=== PATIENT | female | born 1950 | race Caucasian/White ===

== ENCOUNTER 2019-12-25 08:55 | Outpatient (CLI) | payer MEDICARE, BC, SELFPAY ==
[2019-12-25 09:53] LABS: Blood Urea Nitrogen 16 mg/dL (7-17); Calcium 9.4 mg/dL (8.4-10.2); Carbon Dioxide 32 mmol/L (22-30); Chloride 102 mmol/L (98-107); Estimated Glomerular Filt Rate > 60; Glucose 108 mg/dL (65-105); Potassium 3.6 mmol/L (3.4-5.0); Sodium 140 mmol/L (137-145)
== END 2019-12-25 08:56 | disposition home or self-care (01) ==
PROVIDERS: PCP Internal Medicine; Visit Provider Nurse Practitioner
DX: I10 Essential (primary) hypertension (principal)
CPT/HCPCS: 36415; 80048; 84443

== ENCOUNTER 2020-01-07 13:37 | Outpatient (CLI) | payer MEDICARE, BC, SELFPAY ==
[2020-01-07 13:54] LABS: Basophils Absolute Auto 0.1 K/mm3 (0.0-0.1); Basophils Percent Auto 0.7 % (0.2-1.2); Eosinophils Absolute Auto 0.3 K/mm3 (0-0.3); Eosinophils Percent Auto 3.7 % (0-4.4); Hemoglobin 14.1 g/dL (12.0-15.0); Immature Granulocyte Absolute 0.02 K/mm3 (0.00-0.031); Immature Granulocyte Percent A 0.3 % (0-0.5); Lymphocytes Absolute Auto 1.63 K/mm3 (0.9-3.2); Lymphocytes Percent Auto 24.4 % (18.3-44.2); Mean Corpuscular HGB Conc 33.6 g/dl (32-36); Mean Corpuscular Hemoglobin 31.8 pg (26-34); Mean Corpuscular Volume 94.8 fl (80-100); Mean Platelet Volume 9.6 fl (7.4-10.4); Monocytes Absolute Auto 0.6 K/mm3 (0.1-0.6); Monocytes Percent Auto 8.5 % (2.6-8.5); Neutrophils Absolute Auto 4.2 K/mm3 (1.3-6.7); Neutrophils Percent Auto 62.4 % (45.5-73.1); Platelet Count Result 218 k/mm3 (150-375); Red Blood Count 4.43 M/mm3 (4.2-5.4); Red Cell Distribution Width 13.8 % (11.5-14.5); White Blood Count 6.7 K/mm3 (4.5-10.0)
[2020-01-07 14:37] LABS: Free T4 Free Thyroxine 0.96 ng/mL (0.78-2.19)
== END 2020-01-07 13:38 | disposition home or self-care (01) ==
PROVIDERS: PCP Internal Medicine; Visit Provider Nurse Practitioner
DX: D64.9 Anemia, unspecified (principal); E03.9 Hypothyroidism, unspecified
CPT/HCPCS: 36415; 82728; 84439; 84443; 85025

== ENCOUNTER 2020-04-20 12:14 | Outpatient (CLI) | payer MEDICARE, BC, SELFPAY ==
[2020-04-20 12:41] LABS: Basophils Absolute Auto 0.1 K/mm3 (0.0-0.1); Basophils Percent Auto 0.9 % (0.2-1.2); Eosinophils Absolute Auto 0.2 K/mm3 (0-0.3); Eosinophils Percent Auto 3.8 % (0-4.4); Hematocrit 42.6 % (37.0-47.0); Hemoglobin 14.4 g/dL (12.0-15.0); Immature Granulocyte Absolute 0.02 K/mm3 (0.00-0.031); Immature Granulocyte Percent A 0.3 % (0-0.5); Lymphocytes Absolute Auto 1.56 K/mm3 (0.9-3.2); Lymphocytes Percent Auto 27.1 % (18.3-44.2); Mean Corpuscular HGB Conc 33.8 g/dl (32-36); Mean Corpuscular Hemoglobin 31.4 pg (26-34); Mean Platelet Volume 9.4 fl (7.4-10.4); Monocytes Absolute Auto 0.5 K/mm3 (0.1-0.6); Monocytes Percent Auto 8.2 % (2.6-8.5); Neutrophils Absolute Auto 3.4 K/mm3 (1.3-6.7); Neutrophils Percent Auto 59.7 % (45.5-73.1); Platelet Count Result 196 k/mm3 (150-375); Red Blood Count 4.58 M/mm3 (4.2-5.4); Red Cell Distribution Width 13.2 % (11.5-14.5); White Blood Count 5.8 K/mm3 (4.5-10.0)
== END 2020-04-20 12:15 | disposition home or self-care (01) ==
PROVIDERS: PCP Internal Medicine; Visit Provider Nurse Practitioner
DX: D64.9 Anemia, unspecified (principal); E03.9 Hypothyroidism, unspecified
CPT/HCPCS: 36415; 82728; 84443; 85025

== ENCOUNTER 2020-05-13 10:54 | Outpatient (CLI) | payer MEDICARE, BC, SELFPAY ==
[2020-05-13 12:27] LABS: Free T4 Free Thyroxine 0.99 ng/mL (0.78-2.19)
== END 2020-05-13 10:55 | disposition home or self-care (01) ==
LOC: ANHLAB 10:56
PROVIDERS: Clinical Nurse Specialist; PCP Internal Medicine; Visit Provider Nurse Practitioner
DX: E03.9 Hypothyroidism, unspecified (principal)
CPT/HCPCS: 36415; 84439; 84443

== ENCOUNTER 2020-09-13 09:04 | Outpatient (CLI) | payer MEDICARE, BC, SELFPAY ==
--- NOTE | ~2020-09-13 | MM_ITS ---
EXAMINATION: MM screening [facility] BI w olaf HISTORY: Screening mammogram TECHNIQUE: Craniocaudal and mediolateral oblique 3-D tomosynthesis images were obtained and synthetic 2-D images were generated. CAD analysis was submitted and interpreted. COMPARISON: 07/29/2019, 07/22/2018, 06/22/2017 BREAST PARENCHYMAL COMPOSITION: There are scattered areas of fibroglandular density. FINDINGS: There is no evidence of suspicious mass, calcification, or architectural distortion to sugg est malignancy in either breast. There has been no suspicious interval change. IMPRESSION: 1. No mammographic evidence of malignancy. 2. Recommend routine screening mammography in one year. BI-RADS Category 1: Negative Reviewed, dictated and finalized at location A. ING CLERK
== END 2020-09-13 09:05 | disposition home or self-care (01) ==
PROVIDERS: PCP Internal Medicine; Visit Provider Internal Medicine
DX: Z12.31 Encounter for screening mammogram for malignant neoplasm of breast (principal)
CPT/HCPCS: 77063; 77067

== ENCOUNTER 2021-02-05 12:31 | Outpatient (CLI) | payer MEDICARE, BC, SELFPAY ==
[2021-02-05 12:45] LABS: Basophils Absolute Auto 0.1 K/mm3 (0.0-0.1); Basophils Percent Auto 1.1 % (0.2-1.2); Eosinophils Absolute Auto 0.3 K/mm3 (0-0.3); Eosinophils Percent Auto 4.6 % (0-4.4); Hematocrit 43.4 % (37.0-47.0); Hemoglobin 14.2 g/dL (12.0-15.0); Immature Granulocyte Absolute 0.02 K/mm3 (0.00-0.031); Immature Granulocyte Percent A 0.3 % (0-0.5); Lymphocytes Absolute Auto 1.57 K/mm3 (0.9-3.2); Lymphocytes Percent Auto 23.8 % (18.3-44.2); Mean Corpuscular HGB Conc 32.7 g/dl (32-36); Mean Corpuscular Hemoglobin 31.3 pg (26-34); Mean Corpuscular Volume 95.6 fl (80-100); Mean Platelet Volume 9.3 fl (7.4-10.4); Monocytes Absolute Auto 0.7 K/mm3 (0.1-0.6); Monocytes Percent Auto 10.2 % (2.6-8.5); Platelet Count Result 203 k/mm3 (150-375); Red Blood Count 4.54 M/mm3 (4.2-5.4); Red Cell Distribution Width 13.5 % (11.5-14.5); White Blood Count 6.6 K/mm3 (4.5-10.0)
[2021-02-05 12:56] LABS: Alanine Aminotransferase 22 U/L (4-35); Albumin Level 4.7 g/dL (3.5-5.1); Alkaline Phosphatase 135 U/L (38-126); Anion Gap 9 mmol/L (8-16); Aspartate Amino Transferase 28 U/L (14-36); Bilirubin,Total 0.8 mg/dL (0.2-1.3); Blood Urea Nitrogen 11 mg/dL (7-17); Calcium 9.9 mg/dL (8.4-10.2); Carbon Dioxide 25 mmol/L (22-30); Chloride 107 mmol/L (98-107); Estimated Glomerular Filt Rate > 60; Glucose 96 mg/dL (65-105); Potassium 3.8 mmol/L (3.4-5.0); Sodium 141 mmol/L (137-145)
[2021-02-05 14:15] LABS: Vitamin D 25 Hydroxy 53.5 ng/mL
== END 2021-02-05 12:32 | disposition home or self-care (01) ==
PROVIDERS: PCP Internal Medicine; Visit Provider Clinical Nurse Specialist
DX: E03.9 Hypothyroidism, unspecified (principal); I10 Essential (primary) hypertension; E55.9 Vitamin D deficiency, unspecified
CPT/HCPCS: 36415; 80053; 82306; 84443; 85025

== ENCOUNTER 2021-05-11 13:44 | Outpatient (CLI) | payer MEDICARE, BC, SELFPAY ==
[2021-05-11 14:50] LABS: Free T4 Free Thyroxine 1.04 ng/mL (0.78-2.19)
[2021-05-13 05:30] LABS: Triiodothyronine T3 Free 2.7 pg/mL (2.3-4.2)
== END 2021-05-11 13:45 | disposition home or self-care (01) ==
PROVIDERS: PCP Internal Medicine; Visit Provider Clinical Nurse Specialist
DX: E03.9 Hypothyroidism, unspecified (principal)
CPT/HCPCS: 36415; 84439; 84443; 84481

== ENCOUNTER 2021-10-12 09:16 | Outpatient (CLI) | payer MEDICARE, BC, SELFPAY ==
--- NOTE | ~2021-10-12 | MM_ITS ---
EXAMINATION: MM screening [facility] BI w olaf HISTORY: Screening mammogram TECHNIQUE: Craniocaudal and mediolateral oblique 3-D tomosynthesis images were obtained and synthetic 2-D images were generated. CAD analysis was submitted and interpreted. COMPARISON: 09/13/2020, 07/29/2019, 07/22/2018 BREAST PARENCHYMAL COMPOSITION: There are scattered areas of fibroglandular density. FINDINGS: There is no evidence of suspicious mass, calcification, or architectural distortion to sugg est malignancy in either breast. There has been no suspicious interval change. IMPRESSION: 1. No mammographic evidence of malignancy. 2. Recommend routine screening mammography in one year. BI-RADS Category 1: Negative Reviewed, dictated and finalized at location A. [employer]ER
== END 2021-10-12 09:17 | disposition home or self-care (01) ==
PROVIDERS: PCP Internal Medicine; Visit Provider Student in an Organized Health Care Education/Training Program
DX: Z12.31 Encounter for screening mammogram for malignant neoplasm of breast (principal)
CPT/HCPCS: 77063; 77067

== ENCOUNTER 2022-02-18 10:33 | Emergency (ER) | payer MEDICARE, BC, SELFPAY ==
--- NOTE | ~2022-02-18 | XR_ITS ---
EXAMINATION: XR chest 2V DATE: 02/18/2022 11:49 INDICATION: Cough TECHNIQUE: PA and lateral views of the chest were obtained. COMPARISON: None FINDINGS: The lungs are clear with no focal airspace opacities, pulmonary edema, pleural effusion or pneumothor ax. The cardiomediastinal silhouette is normal. Cholecystectomy clips in right upper quadrant. Visual ized bones and soft tissues are unremarkable. IMPRESSION: 1. No acute cardiopulmonary disease. Reviewed, dictated and finalized at location A.
[2022-02-18 10:40] VITALS: BP 143/83; PULSE 74; RESP 16; TEMP 37.1; O2SAT 98
[2022-02-18 10:47] VITALS: BP 143/83; PULSE 74; RESP 16; TEMP 37.1; O2SAT 98
--- NOTE | 2022-02-18 11:31 | ED.GENADULT ---
HPI - General Adult General Chief complaint: Upper Respiratory Infection Stated complaint: Chest Congestion/Cough Source: patient Mode of arrival: ambulatory Limitations: no limitations History of Present Illness HPI narrative: Patient presents for evaluation of sick symptoms for the last 2 days. Symptoms include sinus congestion, drainage, productive cough of green sputum, sore throat, dyspnea on exertion. She denies any fever, chills, nausea, vomiting, diarrhea, pleuritic chest pain and pain her back when coughing. She denies chest pain otherwise. No recent sick contacts. No personal history of COVID. She has received both doses of her COVID-vaccine. She does not smoke. She is taking Coricidin for her symptoms. She states she has a history of recurrent bronchitis. In the past she was given antibiotics for this. No additional complaints or concerns. Related Data Home Medications Medication Instructions Recorded Confirmed bupropion HCl 300 mg 24 hr tablet, 300 mg PO QAM 07/18/19 02/18/22 extended release buspirone 15 mg tablet 15 mg PO TID 07/18/19 02/18/22 calcium carbonate 500 mg calcium 500 mg PO DAILY 07/18/19 02/18/22 (1,250 mg) tablet (Calcium 500) dicyclomine 10 mg capsule 10 mg PO TID 07/18/19 02/18/22 escitalopram oxalate 20 mg tablet 10 mg PO DAILY 07/18/19 02/18/22 lamotrigine 150 mg tablet 150 mg PO DAILY 07/18/19 02/18/22 memantine ER 28 mg-donepezil 10 mg 1 cap PO QPM 07/18/19 02/18/22 capsule sprinkle,ext.release 24 hr (Namzaric) trazodone 50 mg tablet 50 mg PO DAILY 07/18/19 02/18/22 pantoprazole 40 mg tablet,delayed 40 mg PO QAM 12/31/19 02/18/22 release aspirin 81 mg tablet,delayed 81 mg PO DAILY 12/07/20 02/18/22 release dextroamphetamine-amphetamine ER 37.5 mg PO DAILY 12/07/20 02/18/22 37.5 mg capsule, 3 bead, ext rel 24hr (Mydayis) hydroxyzine HCl 25 mg tablet 25 mg PO BID PRN Anxiety 01/06/22 02/18/22 ropinirole 1 mg tablet 1 mg PO BID 01/06/22 02/18/22 Allergies Allergy/AdvReac Type Severity Reaction Status Date / Time adhesive Allergy rash Verified 02/18/22 10:45 Review of Systems Review of Systems: CONSTITUTIONAL: Denies fever, chills, or sweats. EYES: Denies visual changes, redness, or discharge. ENT: Reports sinus congestion, drainage, sore throat. CARDIOVASCULAR: Reports pleuritic chest pain. Denies denies chest pain otherwise palpitations, or edema. RESPIRATORY: Reports cough and dyspnea on exertion. GASTROINTESTINAL: Denies abdominal pain, nausea, vomiting, or diarrhea. GENITOURINARY: Denies dysuria or hematuria. SKIN: Denies rash or itching. MUSCULOSKELETAL: Reports pain in her back when coughing. Denies joint pain, or myalgia. NEUROLOGIC: Denies headache, numbness, dizziness, or weakness. PSYCHIATRIC: Denies anxiety or depression. [facility] Past Medical History Medical History Anemia Anxiety Closed fracture of left foot Depression Depression GERD (gastroesophageal reflux disease) History of herpes zoster virus History of one miscarriage HLD (hyperlipidemia) HTN (hypertension) Hypothyroidism IBS (irritable bowel syndrome) Osteoporosis Sleep apnea Thyroid disorder Surgical History Surgical History H/O foot surgery S/P cholecystectomy S/P tubal ligation Status post total hysterectomy Family History Family History Grandparent Hypertension Mother Family history of lung cancer Sibling Family history of lung cancer Family history of malignant neoplasm of uterus Family history of malignant neoplasm of ovary, Onset Age: 50 Father Family history of emphysema Social History Social History Smoking status: Never smoker Second hand tobacco smoke exposure: No Alcohol intake: never Exam
== END 2022-02-18 12:49 | disposition home or self-care (01) ==
PROVIDERS: Emergency Provider Nurse Practitioner; PCP Internal Medicine
DX: J06.9 Acute upper respiratory infection, unspecified (principal); K21.9 Gastro-esophageal reflux disease without esophagitis; E78.5 Hyperlipidemia, unspecified; I10 Essential (primary) hypertension; E03.9 Hypothyroidism, unspecified; M81.0 Age-related osteoporosis without current pathological fracture; G47.30 Sleep apnea, unspecified; F41.9 Anxiety disorder, unspecified; F32.A Depression, unspecified
CPT/HCPCS: 71046; 99213; G0463

== ENCOUNTER 2022-03-22 11:49 | Emergency (ER) | payer MEDICARE, BC, SELFPAY ==
--- NOTE | ~2022-03-22 | XR_ITS ---
XR toe 1st RT min 2V 03/22/2022 12:08 Indication: Right first toe pain after trauma Procedure: 3 views right first toe Comparison: No prior studies for comparison. Findings: There is polyarticular osteoarthritis of the first digit. There is a possible avulsion frac ture involving the medial base of the first proximal phalanx. Lisfranc joint is grossly intact. No ot her fracture. Impression: 1: Possible avulsion fracture medial base right first proximal phalanx. 2: Moderate polyarticular osteoarthritis. Reviewed, dictated and finalized at location A. Impression: 1: Possible avulsion fracture medial base right first proximal phalanx. 2: Moderate polyarticular osteoarthritis.
--- NOTE | 2022-03-22 11:54 | ED.LOWEXIN ---
HPI - Extremity Injury (Lower) General Chief Complaint: Extremity Injury, Lower Stated Complaint: Fall Injury/Right Foot Time Seen by Provider: 03/22/22 11:54 Source: patient and RN notes reviewed History of Present Illness HPI Narrative: Patient is a 71-year-old female who presents the urgent care with complaints of right great toe pain. Patient states that she tripped up a concrete step prior to arrival approximately 11:30 AM. Patient states that she did not hit her head and denies of any other injuries from the incident. Patient was wearing a shoe at the time. No other acute complaints. No acute distress noted. Patient aware of the plan of care. Some parts of this dictation were generated by voice recognition software and may contain typographical and/or grammatical inaccuracies. Related Data Home Medications Medication Instructions Recorded Confirmed bupropion HCl 300 mg 24 hr tablet, 300 mg PO QAM 07/18/19 03/22/22 extended release buspirone 15 mg tablet 15 mg PO TID 07/18/19 03/22/22 calcium carbonate 500 mg calcium 500 mg PO DAILY 07/18/19 03/22/22 (1,250 mg) tablet (Calcium 500) dicyclomine 10 mg capsule 10 mg PO TID 07/18/19 03/22/22 escitalopram oxalate 20 mg tablet 10 mg PO DAILY 07/18/19 03/22/22 lamotrigine 150 mg tablet 150 mg PO DAILY 07/18/19 03/22/22 memantine ER 28 mg-donepezil 10 mg 1 cap PO QPM 07/18/19 03/22/22 capsule sprinkle,ext.release 24 hr (Namzaric) trazodone 50 mg tablet 50 mg PO DAILY 07/18/19 03/22/22 pantoprazole 40 mg tablet,delayed 40 mg PO QAM 12/31/19 03/22/22 release aspirin 81 mg tablet,delayed 81 mg PO DAILY 12/07/20 03/22/22 release dextroamphetamine-amphetamine ER 37.5 mg PO DAILY 12/07/20 03/22/22 37.5 mg capsule, 3 bead, ext rel 24hr (Mydayis) hydroxyzine HCl 25 mg tablet 25 mg PO BID PRN Anxiety 01/06/22 03/22/22 ropinirole 1 mg tablet 1 mg PO BID 01/06/22 03/22/22 atorvastatin 20 mg tablet 20 mg PO DAILY 03/22/22 03/22/22 Allergies Allergy/AdvReac Type Severity Reaction Status Date / Time adhesive Allergy rash Verified 03/22/22 12:04 Review of Systems Review of Systems: CONSTITUTIONAL: Denies fever, chills, or sweats. EYES: Denies visual changes, redness, or discharge. ENT: Denies rhinorrhea, congestion, sore throat, or otalgia. CARDIOVASCULAR: Denies chest pain, palpitations, or edema. RESPIRATORY: Denies cough or dyspnea. GASTROINTESTINAL: Denies abdominal pain, nausea, vomiting, or diarrhea. GENITOURINARY: Denies dysuria or hematuria. SKIN: Denies rash or itching. MUSCULOSKELETAL: Reports of right great toe pain NEUROLOGIC: Denies headache, numbness, or weakness. All other systems reviewed are negative, except as documented in HPI. [facility] Past Medical History Medical History Anemia Anxiety Closed fracture of left foot Depression Depression GERD (gastroesophageal reflux disease) History of herpes zoster virus History of one miscarriage HLD (hyperlipidemia) HTN (hypertension) Hypothyroidism IBS (irritable bowel syndrome) Osteoporosis Sleep apnea Thyroid disorder Surgical History Surgical History H/O foot surgery S/P cholecystectomy S/P tubal ligation Status post total hysterectomy Family History Family History Grandparent Hypertension Mother Family history of lung cancer Sibling Family history of lung cancer Family history of malignant neoplasm of uterus Family history of malignant neoplasm of ovary, Onset Age: 50 Father Family history of emphysema Social History Social History Smoking status: Never smoker Second hand tobacco smoke exposure: No Alcohol intake: never Comments At the time of my signature, I reviewed and agree with the nursing past medical, surgic
[2022-03-22 12:00] VITALS: BP 139/79; PULSE 90; RESP 16; TEMP 36.8; O2SAT 99
[2022-03-22 12:07] VITALS: BP 139/79; PULSE 90; RESP 16; TEMP 36.8; O2SAT 99
--- NOTE | 2022-03-22 12:42 | PC.NURSE ---
PT DECLINED WHEELCHAIR TO RADIOLOGY
== END 2022-03-22 12:36 | disposition home or self-care (01) ==
PROVIDERS: Emergency Provider Nurse Practitioner Family; PCP Internal Medicine
DX: S92.414A Nondisplaced fracture of proximal phalanx of right great toe, initial encounter for closed fracture (principal); W10.9XXA Fall (on) (from) unspecified stairs and steps, initial encounter; F41.9 Anxiety disorder, unspecified; F32.A Depression, unspecified; K21.9 Gastro-esophageal reflux disease without esophagitis; E78.5 Hyperlipidemia, unspecified; I10 Essential (primary) hypertension; E03.9 Hypothyroidism, unspecified; M81.0 Age-related osteoporosis without current pathological fracture; G47.30 Sleep apnea, unspecified; Z79.82 Long term (current) use of aspirin
CPT/HCPCS: 73660; 99214; G0463

== ENCOUNTER 2022-04-14 12:52 | Outpatient (CLI) | payer MEDICARE, BC, SELFPAY ==
--- NOTE | ~2022-04-14 | DEXA_ITS ---
Bone Density Report Name: EDITH DARBY Age: 72 Sex: Female Ethnicity: White Date of : 1950 Indication: postmenopausal; screening for osteoporosis; height loss; inflammatory bowel disease; hysterectomy; Referring Provider: WOLF MANJARREZ Study: Bone densitometry was performed. Exam Date: April 14, 2022 Accession number: [id number] Bone Density: Region BMD T-score Z-score Classification AP Spine(L1-L4) 0.917 -1.2 0.9 Osteopenia Femoral Neck (Left) 0.631 -2.0 -0.2 Osteopenia Total Hip (Left) 0.830 -0.9 0.6 Normal Femoral Neck (Right) 0.583 -2.4 -0.6 Osteopenia Total Hip (Right) 0.817 -1.0 0.5 Normal Total Hip Mean 0.824 -1.0 0.6 Normal World Health Organization criteria for BMD impression classify patients as: Normal (T-score at or above -1.0), Osteopenia (T-score between -1.0 and -2.5), or Osteoporosis (T-score at or below -2.5). 10-year Fracture Risk(1): Major Osteoporotic Fracture 13% Hip Fracture 3.0% Reported Risk Factors: [place] (), Neck BMD=0.583, BMI=30.2 (1) FRAX(R) Version 3.08. Fracture probability calculated for an untreated patient. Fracture probability may be lower if the patient has received treatment. Clinical Information Provided by Patient: Has used the following medications: Vitamin D, Calcium Has the following medical conditions: Inflammatory bowel diseases, Hysterectomy Patient maximum height was 63.5 Menopause Age: 52 No regular weight bearing exercise Drinks caffeinated beverages Onset of menses at age 16 Number of children 2 Impression: The patient has low bone mass, based on the Right Femoral Neck T-score. The patient has an estimated ten-year risk of hip fracture of 3% and an estimated ten-year risk of major fracture of 13%, based on the WHO FRAX algorithm. Discussion: BONE DENSITY IS LOW AT ONE OR MORE SKELETAL SITES. THE PATIENT'S BMD AND CLINICAL RISK FACTORS CONTRIBUTE TO THIS PATIENT'S INCREASED RISK OF FRACTURE. This patient's lowest T-score is low at one or more skeletal sites. It meets the World Health Organization's (WHO) criteria for ?low bone mass? (T-score between -1.0 and -2.5). The patient's 10-year risk of hip fracture as calculated by FRAX exceeds the threshold where pharmacological therapy is recommended by the National Osteoporosis Foundation (NOF). However, all treatment decisions require clinical judgment and consideration of individual patient factors, including patient preferences, comorbidities, previous drug use, risk factors not captured in the FRAX model (e.g., frailty, falls, vitamin D deficiency, increased bone turnover, interval significant decline in bone density) and possible under or overestimation of fracture risk by FRAX. The patient should follow a healthful lifestyle (good nutrition with ad
== END 2022-04-14 12:53 | disposition home or self-care (01) ==
LOC: ANHIMG 12:55
PROVIDERS: PCP Internal Medicine; Visit Provider Student in an Organized Health Care Education/Training Program
DX: Z78.0 Asymptomatic menopausal state (principal); M85.88 Other specified disorders of bone density and structure, other site; M85.852 Other specified disorders of bone density and structure, left thigh; M85.851 Other specified disorders of bone density and structure, right thigh
CPT/HCPCS: 77080

== ENCOUNTER 2022-09-03 08:25 | Emergency (ER) | payer MEDICARE, BC, SELFPAY ==
[2022-09-03 08:30] VITALS: BP 107/68; PULSE 82; RESP 20; TEMP 36.8; O2SAT 99
--- NOTE | 2022-09-03 08:47 | ED.GENADULT ---
HPI - General Adult General Chief complaint: Upper Respiratory Infection Stated complaint: Diarrhea/Cough Time Seen by Provider: 09/03/22 08:48 History of Present Illness HPI narrative: Patient presents for evaluation of cough. Shortness of breath no chest pain. Patient denies any exposure to COVID or influenza. Related Data Home Medications Medication Instructions Recorded Confirmed bupropion HCl 300 mg 24 hr tablet, 300 mg PO QAM 07/18/19 09/03/22 extended release buspirone 15 mg tablet 15 mg PO TID 07/18/19 09/03/22 dicyclomine 10 mg capsule 10 mg PO TID 07/18/19 09/03/22 escitalopram oxalate 20 mg tablet 20 mg PO DAILY 07/18/19 09/03/22 lamotrigine 150 mg tablet 150 mg PO BID 07/18/19 09/03/22 trazodone 50 mg tablet 50 mg PO DAILY 07/18/19 09/03/22 pantoprazole 40 mg tablet,delayed 40 mg PO QAM 12/31/19 09/03/22 release hydroxyzine HCl 25 mg tablet 25 mg PO BID PRN Anxiety 01/06/22 09/03/22 ropinirole 1 mg tablet 1 mg PO QHS 01/06/22 09/03/22 atorvastatin 20 mg tablet 20 mg PO DAILY 03/22/22 09/03/22 fluticasone propionate 50 1 spray intranasal DAILY 05/17/22 09/03/22 mcg/actuation nasal spray,suspension aspirin 81 mg chewable tablet 81 mg PO DAILY 09/03/22 09/03/22 azelastine-fluticasone 137 mcg-50 1 spray intranasal BID 09/03/22 09/03/22 mcg/spray nasal spray dextroamphetamine-amphetamine ER 37.5 mg PO DAILY 09/03/22 09/03/22 37.5 mg capsule, 3 bead, ext rel 24hr (Mydayis) memantine ER 28 mg-donepezil 10 mg 1 cap PO DAILY 09/03/22 09/03/22 capsule sprinkle,ext.release 24 hr (Namzaric) suvorexant 10 mg tablet (Belsomra) 10 mg PO DAILY 09/03/22 09/03/22 suvorexant 10 mg tablet (Belsomra) 10 mg PO HS 09/03/22 09/03/22 vortioxetine 10 mg tablet 10 mg PO DAILY 09/03/22 09/03/22 (Trintellix) Allergies Allergy/AdvReac Type Severity Reaction Status Date / Time adhesive Allergy rash Verified 09/03/22 08:39 Review of Systems Review of Systems: CONSTITUTIONAL: Denies chills, or sweats. Reports fever and generalized body aches EYES: Denies visual changes, redness, or discharge. ENT: Denies otalgia. Reports nasal congestion runny nose and sore throat CARDIOVASCULAR: Denies chest pain, palpitations, or edema. RESPIRATORY: Denies dyspnea. Reports occasional cough GASTROINTESTINAL: Denies abdominal pain, nausea, vomiting, or diarrhea. GENITOURINARY: Denies dysuria or hematuria. SKIN: Denies rash or itching. MUSCULOSKELETAL: Denies back pain, joint pain, or myalgia. Reports generalized body aches NEUROLOGIC: Denies headache, numbness, or weakness. PSYCHIATRIC: Denies anxiety or depression. [facility] Past Medical History Medical History (Updated 09/03/22 @ 08:52 by LINDA Hollingsworth) Anemia Anxiety Closed fracture of left foot Depression Depression GERD (gastroesophageal reflux disease) History of broken nose History of herpes zoster virus History of one miscarriage HLD (hyperlipidemia) HTN (hypertension) Hypothyroidism IBS (irritable bowel syndrome) Osteoporosis Sleep apnea Thyroid disorder Surgical History Surgical History (Updated 05/17/22 @ 13:58 by Lisette Madrigal MA) H/O foot surgery History of nasal surgery S/P cholecystectomy S/P tubal ligation Status post total hysterectomy Family History Family History Grandparent Hypertension Mother Family history of lung cancer Sibling Family history of lung cancer Family history of malignant neoplasm of uterus Family history of malignant neoplasm of ovary, Onset Age: 50 Father Family history of emphysema Social History Social History Smoking status: Never smoker Second hand tobacco smoke exposure: No Alcohol intake: never Comments At time of signature, agree with nursing past medical, surgical, social and family history. There is no relevant family history pertinent to the presenting
== END 2022-09-03 08:55 | disposition home or self-care (01) ==
PROVIDERS: Emergency Provider Nurse Practitioner Family; PCP Internal Medicine
DX: U07.1 COVID-19 (principal); K21.9 Gastro-esophageal reflux disease without esophagitis; E78.5 Hyperlipidemia, unspecified; I10 Essential (primary) hypertension; E03.9 Hypothyroidism, unspecified; M81.0 Age-related osteoporosis without current pathological fracture; F41.9 Anxiety disorder, unspecified; F32.A Depression, unspecified; Z79.82 Long term (current) use of aspirin
CPT/HCPCS: 87426; 87804; 99213; C9803; G0463

== ENCOUNTER 2023-02-13 11:47 | Emergency (ER) | payer MEDICARE, BC, SELFPAY ==
--- NOTE | ~2023-02-13 | XR_ITS ---
EXAMINATION: XR tibia fibula LT 2V INDICATION: Left leg pain TECHNIQUE: Two views of the left tibia and fibula are obtained. COMPARISON: None available FINDINGS: Bone alignment is normal. There is no fracture. The soft tissues are unremarkable. IMPRESSION: 1. No acute osseous abnormality. Reviewed, dictated and finalized at location A.
--- NOTE | ~2023-02-13 | XR_ITS ---
EXAMINATION: XR hip RT min 2V DATE: 02/13/2023 12:29 INDICATION: Right hip pain TECHNIQUE: Two views of right hip were obtained. COMPARISON: None. FINDINGS: Bone alignment is normal. There is no fracture. Phleboliths are noted in the pelvis. IMPRESSION: 1. No acute osseous abnormality. Reviewed, dictated and finalized at location A.
[2023-02-13 11:54] VITALS: BP 146/91; PULSE 72; RESP 20; TEMP 36.6; O2SAT 97
--- NOTE | 2023-02-13 12:31 | ED.FALL ---
HPI - Fall General Chief Complaint: Fall Stated Complaint: Right hip pain from fall Time Seen by Provider: 02/13/23 12:12 Source: patient, RN notes reviewed and old records reviewed Mode of arrival: ambulatory Limitations: no limitations History of Present Illness HPI Narrative: 72 year old [facility] with complaints of getting out of her recliner on Sunday and feeling dizzy with falling in living room. Patient reports that she hit her right hip garrison the floor and hit her head on the couch with no LOC. Patient reports continued soreness to her right hip is able to put full weight bearing on her right leg, does have large bruise to her right hip 16cm X11cm with no hematoma formation noted. Patient also has some bruises noted on her left leg with bruising on left calf [id number], left stark [id number] 3cm X 3cm left hip. Patient reports that she bruises easily. Patient reports that she has taken some Tylenol for her discomfort, patient is on numerous medications. Orthostatic blood pressures recorded. MD complaint: fall Onset (ago): day(s) (4) Fall from: standing Place fall occurred: home Loss of consciousness: none Symptoms prior to fall: dizziness Associated symptoms (after fall): other (right hip pain with bruising) Related Data Home Medications Medication Instructions Recorded Confirmed bupropion HCl 300 mg 24 hr tablet, 300 mg PO QAM 07/18/19 02/13/23 extended release buspirone 15 mg tablet 15 mg PO TID 07/18/19 02/13/23 dicyclomine 10 mg capsule 10 mg PO TID 07/18/19 02/13/23 escitalopram oxalate 20 mg tablet 20 mg PO DAILY 07/18/19 02/13/23 lamotrigine 150 mg tablet 150 mg PO BID 07/18/19 02/13/23 trazodone 50 mg tablet 50 mg PO DAILY 07/18/19 02/13/23 pantoprazole 40 mg tablet,delayed 40 mg PO QAM 12/31/19 02/13/23 release ropinirole 1 mg tablet 1 mg PO QHS 01/06/22 02/13/23 atorvastatin 20 mg tablet 20 mg PO DAILY 03/22/22 02/13/23 aspirin 81 mg chewable tablet 81 mg PO DAILY 09/03/22 02/13/23 dextroamphetamine-amphetamine ER 37.5 mg PO DAILY 09/03/22 02/13/23 37.5 mg capsule, 3 bead, ext rel 24hr (Mydayis) memantine ER 28 mg-donepezil 10 mg 1 cap PO DAILY 09/03/22 02/13/23 capsule sprinkle,ext.release 24 hr (Namzaric) vortioxetine 10 mg tablet 10 mg PO DAILY 09/03/22 02/13/23 (Trintellix) amlodipine 5 mg-benazepril 10 mg 1 cap PO DAILY 02/13/23 02/13/23 capsule Allergies Allergy/AdvReac Type Severity Reaction Status Date / Time adhesive Allergy Intermediate rash Verified 02/13/23 12:10 Sulfa (Sulfonamide Allergy Intermediate Rash Verified 02/13/23 12:10 Antibiotics) Review of Systems Review of Systems: CONSTITUTIONAL: Denies fever, chills, or sweats. EYES: Denies visual changes, redness, or discharge. ENT: Denies rhinorrhea, congestion, sore throat, or otalgia. CARDIOVASCULAR: Denies chest pain, palpitations, or edema. RESPIRATORY: Denies cough or dyspnea. GASTROINTESTINAL: Denies abdominal pain, nausea, vomiting, or diarrhea. GENITOURINARY: Denies dysuria or hematuria. SKIN: Denies rash or itching. MUSCULOSKELETAL: Denies back pain, reports soreness to right hip from fall, or myalgia, did state dizziness prior to fall. NEUROLOGIC: Denies headache, numbness, or weakness. PSYCHIATRIC:Positive for anxiety or depression. All systems reviewed & are unremarkable except as noted in HPI and below PMFSH Past Medical History Medical History (Updated 02/14/23 @ 08:17 by Denise Shankar NP) Alzheimers disease reports that she is in early stage Anemia Anxiety Closed fracture of left foot Depression Depression GERD (gastroesophageal reflux disease) History of broken nose History of herpes zoster virus History of one miscarriage HLD (hyperlipidemia) HTN (hypertension) Hypothyroidism IBS (irritable bowel syndrome) Left upper arm injury left humerus fracture with plate and screws Osteoporosis Sleep apnea Thyroid disorder Surgical History Surgical History (Reviewed
[2023-02-13 12:55] VITALS: BP 143/75; PULSE 67
[2023-02-13 13:00] VITALS: BP 140/79; PULSE 74
[2023-02-13 13:02] VITALS: BP 124/86; PULSE 85
== END 2023-02-13 13:05 | disposition home or self-care (01) ==
PROVIDERS: Emergency Provider Registered Nurse; PCP Internal Medicine
DX: S70.01XA Contusion of right hip, initial encounter (principal); S80.12XA Contusion of left lower leg, initial encounter; W19.XXXA Unspecified fall, initial encounter; G30.0 Alzheimer's disease with early onset; F02.80 Dementia in other diseases classified elsewhere, unspecified severity, without behavioral disturbance, psychotic disturbance, mood disturbance, and anxiety; K21.9 Gastro-esophageal reflux disease without esophagitis; E78.5 Hyperlipidemia, unspecified; I10 Essential (primary) hypertension; E03.9 Hypothyroidism, unspecified; M81.0 Age-related osteoporosis without current pathological fracture; F41.9 Anxiety disorder, unspecified; F32.A Depression, unspecified; Z79.82 Long term (current) use of aspirin
CPT/HCPCS: 73502; 73590; 99214; G0463

== ENCOUNTER 2023-12-04 07:47 | Outpatient (CLI) | payer MEDICARE, BC, SELFPAY ==
--- NOTE | ~2023-12-04 | MM_ITS ---
EXAMINATION: MM screening [facility] BI w olaf HISTORY: Screening mammogram TECHNIQUE: Craniocaudal and mediolateral oblique 3-D tomosynthesis images were obtained and synthetic 2-D images were generated. CAD analysis was submitted and interpreted. COMPARISON: 10/12/2021, 09/13/2020 bilateral screening mammogram examinations BREAST PARENCHYMAL COMPOSITION: There are scattered areas of fibroglandular density. FINDINGS: There is an approximately 5 mm circumscribed mass anteriorly in the inner mid right breast. Diagnostic right mammogram and right breast ultrasound examination are recommended. Otherwise there is no evidence of suspicious mass, calcification, or architectural distortion to sug gest malignancy in either breast. There has been no other suspicious interval change. IMPRESSION: 1. New 5 mm mass in anterior inner mid right breast 2. Diagnostic right mammogram and right breast ultrasound examination are recommended BI-RADS Category 0: Incomplete: Needs additional imaging evaluation. Reviewed, dictated and finalized at location A. IMPRESSION: 1. New 5 mm mass in anterior inner mid right breast 2. Diagnostic right mammogram and right breast ultrasound examination are recom mended BI-RADS Category 0: Incomplete: Needs additional imaging evaluation.
== END 2023-12-04 07:48 | disposition home or self-care (01) ==
LOC: ANHIMG 07:49
PROVIDERS: PCP Internal Medicine; Visit Provider Nurse Practitioner Family
DX: Z12.31 Encounter for screening mammogram for malignant neoplasm of breast (principal); R92.8 Other abnormal and inconclusive findings on diagnostic imaging of breast
CPT/HCPCS: 77063; 77067

== ENCOUNTER 2023-12-07 12:11 | Outpatient (CLI) | payer MEDICARE, BC, SELFPAY ==
--- NOTE | ~2023-12-07 | MMUS_ITS ---
EXAMINATION: MM diagnostic chiqui RT w olaf, US breast RT limited HISTORY: New 5 mm mass seen anterior intermittent right breast postmenopausal patient TECHNIQUE: Additional 3-D tomosynthesis images of the right breast were performed and synthetic 2-D i mages were generated. CAD analysis was submitted and interpreted. High resolution targeted inner mid right breast ultrasound was performed. COMPARISON: 12/04/2023, 10/12/2021 bilateral screening mammogram examinations FINDINGS: MAMMOGRAPHIC FINDINGS: Approximately 5 mm mass is confirmed in the inner mid right breast. ULTRASOUND: Mildly irregular hypoechoic lesion is confirmed at 2:00 2 cm from nipple, measuring 4.6 x 4.2 x 4.1 m m. Faint internal echoes are noted. No internal vascularity is identified. No posterior shadowing is noted. A new mildly irregular mass in a postmenopausal 73-year-old is of concern. I would recommend ultrasou nd-guided attempted cyst aspiration followed by biopsy if this does not completely resolve with aspir ation. IMPRESSION: 1. New 5 mm indeterminate hypoechoic mass at 2:00 2 cm from nipple in postmenopausal patient 2. Ultrasound-guided aspiration attempt should be made in with immediate biopsy if the lesion does no t completely resolve with attempted aspiration BI-RADS category 4, suspicious findings. Dr. Cox telephoned the report and ultrasound guided aspiration and if necessary biopsy recommendatio n on December 07, 2023 at 1320 hours to [facility], who indicated she would text the nurse immediately. Reviewed, dictated and finalized at location A. IMPRESSION: 1. New 5 mm indeterminate hypoechoic mass at 2:00 2 cm from nipple in postmenop ausal patient 2. Ultrasound-guided aspiration attempt should be made in with immediate biopsy if the lesion does not completely resolve with attempted aspiration BI-RADS category 4, suspicious findings. Dr. Cox telephoned the report and ultrasound guided aspiration and if necessar y biopsy recommendation on December 07, 2023 at 1320 hours to [facility], who indicated she would text the nurse immediately. IMPRESSION: 1. New 5 mm indeterminate hypoechoic mass at 2:00 2 cm from nipple in postmenop ausal patient 2. Ultrasound-guided aspiration attempt should be made in with immediate biopsy if the lesion does not completely resolve with attempted aspiration BI-RADS category 4, suspicious findings. Dr. Cox telephoned the report and ultrasound guided aspiration and if necessar y biopsy recommendation on December 07, 2023 at 1320 hours to Jeri, who indicated she would text the nurse immediately.
== END 2023-12-07 12:12 | disposition home or self-care (01) ==
LOC: ANHIMG 12:13
PROVIDERS: PCP Internal Medicine; Visit Provider Nurse Practitioner Family
DX: R92.8 Other abnormal and inconclusive findings on diagnostic imaging of breast (principal)
CPT/HCPCS: 76642; 77061; 77065; G0279

== ENCOUNTER 2024-03-12 07:59 | Outpatient (CLI) | payer MEDICARE, BC, SELFPAY ==
--- NOTE | ~2024-03-12 | US_ITS ---
US breast RT limited 03/12/2024 08:57 Indication: Mass seen on prior examination. Aspiration requested. Procedure: High-resolution Limited ultrasound of the right breast Comparison: No prior studies for comparison. Findings: At 2:00, 2 cm from the nipple there is an oval hypoechoic parallel oriented mass measuring 5 mm with low-level internal echoes, posterior acoustic enhancement and no internal vascularity, cons istent with a minimally complicated cyst. Impression: 1: Probable benign minimally complicated right breast cyst. BI-RADS CATEGORY 3-PROBABLY BENIGN FINDING RECOMMENDATION: 6 month follow-up Limited right breast ultrasound. Reviewed, dictated and finalized at location B. Impression: 1: Probable benign minimally complicated right breast cyst. BI-RADS CATEGORY 3-PROBABLY BENIGN FINDING RECOMMENDATION: 6 month follow-up Limited right breast ultrasound.
== END 2024-03-12 08:00 | disposition home or self-care (01) ==
PROVIDERS: PCP Internal Medicine; Visit Provider Surgery
DX: N63.10 Unspecified lump in the right breast, unspecified quadrant (principal); R92.8 Other abnormal and inconclusive findings on diagnostic imaging of breast
CPT/HCPCS: 76642

== ENCOUNTER 2024-07-30 09:34 | Outpatient (CLI) | payer MEDICARE, BC, SELFPAY ==
--- NOTE | ~2024-07-30 | DEXA_ITS ---
Bone Density Report Name: EDITH DARBY Age: 74 Sex: Female Ethnicity: White Date of : 1950 Indication: osteopenia; height loss; inflammatory bowel disease; hysterectomy; Referring Provider: TIFFANIE ANDRES Study: Bone densitometry was performed. Exam Date: July 30, 2024 Accession number: [id number] Bone Density: Region BMD T-score Z-score Classification AP Spine(L1-L4) 0.909 -1.3 1.0 Osteopenia Femoral Neck (Left) 0.567 -2.5 -0.6 Osteoporosis Total Hip (Left) 0.746 -1.6 0.0 Osteopenia Femoral Neck (Right) 0.619 -2.1 -0.1 Osteopenia Total Hip (Right) 0.795 -1.2 0.4 Osteopenia Total Hip Mean 0.770 -1.4 0.2 Osteopenia World Health Organization criteria for BMD impression classify patients as: Normal (T-score at or above -1.0), Osteopenia (T-score between -1.0 and -2.5), or Osteoporosis (T-score at or below -2.5). 10-year Fracture Risk: FRAX not reported because: Some T-score for Spine Total or Hip Total or Femoral Neck at or below -2.5 Previous Exams: Region Exam Age BMD T-score BMD Change BMD Change Date g/cm2 vs Baseline vs Previous AP Spine (L1-L4) 07/30/2024 74 0.909 -1.3 0.028 (3.2%)* -0.008 (-0.9%) 04/14/2022 72 0.917 -1.2 0.036 (4.1%)* 0.036 (4.1%)* 07/03/2017 67 0.881 -1.5 Total Hip(Left) 07/30/2024 74 0.746 -1.6 -0.058 (-7.2%) -0.084 (-10.1% 04/14/2022 72 0.830 -0.9 0.026 (3.2%) 0.026 (3.2%) 07/03/2017 67 0.804 -1.1 Total Hip(Right) 07/30/2024 74 0.795 -1.2 -0.022 (-2.7%) -0.023 (-2.8%) 04/14/2022 72 0.817 -1.0 0.001 (0.1%) 0.001 (0.1%) 07/03/2017 67 0.817 -1.0 *Denotes significance at 95% confidence level, LSC for AP Spine = 0.022 g/cm2, LSC for Total Hip = 0.027 g/cm2 Clinical Information Provided by Patient: Has used the following medications: Vitamin D, Calcium Has the following medical conditions: Inflammatory bowel diseases, Hysterectomy Patient maximum height was 63.5 Menopause Age: 52 No regular weight bearing exercise Drinks caffeinated beverages Onset of menses at age 16 Number of children 2 Impression: The patient has osteoporosis, based on the Left Femoral Neck T-score. The BMD for the Total Hip(Left) decreased, changing by -10.1% since the last DXA exam. Discussion: INCREASED RISK OF FRACTURE. BONE DENSITY IS UNDESIRABLY LOW AT ONE OR MORE SKELETAL SITES, CONSISTENT WITH POSTMENOPAUSAL OSTEOPOROSIS. This patient's lowest T-score meets the World Health Organization's (WHO) criteria for osteoporosis at one or more sites (T-score -2.5 or below). In untreated patients, the risk of osteoporotic fracture increases approximately two-fold for each 1.0 SD decrease in T-score. Low bone density is not the only risk factor for fracture; also consider factors such as patient's age, frailty or poor health, risk of falling, risk of injury, previous osteoporotic fracture, family history of osteoporosis, cigarette smoking, low body weight, etc. Not everyone with low bone mineral density has osteoporosis; osteomalacia and other metabolic bone disorders should also be considered. Patients who have osteoporosis should be evaluated for specific diseases and conditions (secondary causes) that may cause or contribute to bone loss. The [place] [employer] Endocrinologists (AACE) and National Osteoporosis Foundation (NOF) recommend pharmacologic intervention for all postmenopausal women whose T-score is in this range. The patient should follow a healthful lifestyle (good nutrition with adequate calcium and vitamin D, and appropriate weight-bearing exercise). Follow-Up: Consider a repeat BMD and Vertebral Fracture Assessment (VFA) exam in 2 years or sooner if medically necessary, to reassess this patient's status. Reported by: GALE on 07/30/2024 10:05:00 AM. Reviewed, dictated and finalized at location AHattie BATES
== END 2024-07-30 09:35 | disposition home or self-care (01) ==
LOC: ANHIMG 09:36
PROVIDERS: PCP Internal Medicine; Visit Provider Obstetrics & Gynecology
DX: Z78.0 Asymptomatic menopausal state (principal); M85.88 Other specified disorders of bone density and structure, other site; M81.0 Age-related osteoporosis without current pathological fracture; M85.852 Other specified disorders of bone density and structure, left thigh; M85.851 Other specified disorders of bone density and structure, right thigh
CPT/HCPCS: 77080

== ENCOUNTER 2024-09-01 15:07 | Emergency (ER) | payer MEDICARE, BC, SELFPAY ==
[2024-09-01 15:12] VITALS: BP 139/118; PULSE 80; RESP 20; TEMP 36.7; O2SAT 100
--- NOTE | 2024-09-01 15:31 | ED.FEMALEGU ---
HPI - Female Genitourinary General Chief complaint: Urogenital-Female Stated complaint: poss uti or constipation Time Seen by Provider: 09/01/24 16:01 Source: patient and RN notes reviewed Mode of arrival: ambulatory Limitations: no limitations History of Present Illness HPI Narrative: 74-year-old female presents with multiple concerns. She reports 1 week ago she had foul-smelling urine and occasional dysuria, she increased her fluid intake and those symptoms have improved. She also reports she had been constipated, she took MiraLax last Sunday and had regular bowel movements, her bowel movements have slowed down again. She also reports left low back pain that radiates down the left leg. Reports the back pain is worsened with movement. She denies any back injury. She denies loss of bowel or bladder function, perianal anesthesia, weakness in the extremity. She denies abdominal pain, fever, body aches, chills, sweats, nausea, vomiting. MD elicited complaint: UTI Related Data Home Medications ?Medication ?Instructions ?Recorded ?Confirmed ?Last Taken ?Type bupropion HCl 300 mg 24 hr tablet, 300 mg PO QAM 07/18/19 04/02/24 Unknown History extended release buspirone 15 mg tablet 15 mg PO TID 07/18/19 04/02/24 Unknown History dicyclomine 10 mg capsule 10 mg PO TID 07/18/19 04/02/24 Unknown History escitalopram oxalate 20 mg tablet 20 mg PO DAILY 07/18/19 04/02/24 Unknown History lamotrigine 150 mg tablet 150 mg PO BID 07/18/19 04/02/24 Unknown History trazodone 50 mg tablet 50 mg PO DAILY 07/18/19 04/02/24 Unknown History pantoprazole 40 mg tablet,delayed 40 mg PO QAM 12/31/19 04/02/24 Unknown History release ropinirole 1 mg tablet 1 mg PO QHS 01/06/22 04/02/24 Unknown History atorvastatin 20 mg tablet 20 mg PO DAILY 03/22/22 04/02/24 Unknown History aspirin 81 mg chewable tablet 81 mg PO DAILY 09/03/22 04/02/24 Unknown History vortioxetine 10 mg tablet 10 mg PO DAILY 09/03/22 04/02/24 Unknown History (Trintellix) amlodipine 5 mg-benazepril 10 mg 1 cap PO DAILY 02/13/23 04/02/24 Unknown History capsule dextroamphetamine-amphetamine ER 37.5 mg PO DAILY 10/04/23 04/02/24 Unknown History 37.5 mg capsule, 3 bead, ext rel 24hr (Mydayis) Allergies Allergy/AdvReac Type Severity Reaction Status Date / Time adhesive Allergy Intermediate rash Verified 09/01/24 15:17 Sulfa (Sulfonamide Allergy Intermediate Rash Verified 09/01/24 15:17 Antibiotics) Review of Systems Review of Systems: CONSTITUTIONAL: Denies malaise, chills, sweats, or fever. EYES: Denies visual changes, redness, or discharge. CARDIOVASCULAR: Denies chest pain, palpitations, or edema. RESPIRATORY: Denies cough or dyspnea. GASTROINTESTINAL: Denies abdominal pain, nausea, vomiting, diarrhea, bloody, or mucous stools. Reports constipation GENITOURINARY: Denies current frequency, urgency, dysuria or hematuria. SKIN: Denies rash or itching. MUSCULOSKELETAL: Reports left low back pain NEUROLOGIC: Denies numbness, weakness, or headache. PSYCHIATRIC: Denies anxiety or depression. All systems reviewed & are unremarkable except as noted in HPI and below PMFSH Past Medical History Medical History Alzheimers disease reports that she is in early stage Anemia Anxiety Broken shoulder Required surgery to repair with plates. Closed fracture of left foot Depression Depression GERD (gastroesophageal reflux disease) History of broken nose History of herpes zoster virus History of one miscarriage HLD (hyperlipidemia) HTN (hypertension) Hypothyroidism IBS (irritable bowel syndrome) Left upper arm injury left humerus fracture with plate and screws Osteoporosis Sleep apnea Thyroid disorder Surgical History Surgical History H/O foot surgery History of nasal surgery History of shoulder surgery 11/02 left shoulder repaired with plates and screws S/P cholecystectomy S/P tubal ligation Status post total hysterectomy Family History Family History Grandparent Hypertension Mother Family history of lung cancer Sibling Family history of lung cancer Family history of malignant neoplasm of uterus Family history of malignant neoplasm of ovary, Onset Age: 50 Father Family history of emphysema Hypertension Social History Social History Smoking status: Never smoker Second hand tobacco smoke exposure: No Alcohol intake: never Substance use: never Substance use type: does not use Do You Feel Safe in your Home?: Yes Lack of Transportation: No Lack of Food: Never True Current Housing: Decline to Answer Concerned About Future Housing: No Difficulty Paying Gas/Electric Bills: No Difficulty Paying for Meds: No Currently Unemployed: No Education: High School Diploma/GED Difficulty w/ Childcare or Family Care: No Living arrangements: with family Occupation/Education: retired Gender identity (if verbalized by the patient): Female Sexual Orientation (if Verbalized by the Patient): Straight or Heterosexual Spiritual care concerns: No Comments At time of signature, agree with nursing past medical, surgical, social and family history. There is no relevant family history pertinent to the presenting complaint Exam Narrative: GENERAL: Well-appearing, well-nourished, and in no acute distress. HEAD: Normocephalic, atraumatic. EYES: PERRLA and EOMI. NECK: Supple. No lymphadenopathy. CHEST: Clear to auscultation. No respiratory distress. HEART: Regular rate and rhythm. Distal pulses palpable and equal, cap refill <3 seconds ABDOMEN: Soft, nontender, nondistended, normal active bowel sounds, no palpable or pulsatile masses. No CVA tenderness MUSCULOSKELETAL: Normal range of motion and strength in all extremities; 5/5 strength with hip flexion and extension, dorsiflexion and extension, knee flexion and extension, plantar flexion and extension. Normal sensation in dermatomal distributions with sensitivity to light touch and pain. No midline back tenderness to palpation. No paraspinal tenderness. Transfers from sitting to standing. SKIN: Warm, dry, no rash. No ecchymosis, erythema, open wounds to back. NEURO: No focal deficits. Alert and oriented x3. Normal gait. PSYCH: Normal mood and affect Course Course Emergency Course: Patient is aware of diagnosis, understands and agrees to treatment plan. Anticipatory guidance given. Patient agrees to follow-up as directed and is aware of reasons to seek care at the emergency department. Portions of this record may have been created with voice recognition software Level of Care: Express Care Visit Vital Signs Vital signs: Vital Signs Temperature 98.1 F 09/01/24 15:12 Pulse Rate 80 09/01/24 15:12 Respiratory Rate 09/01/24 15:12 Blood Pressure 139/118 H 09/01/24 15:12 Pulse Oximetry 100 09/01/24 15:12 Oxygen Delivery Room Air 09/01/24 15:12 Temperature 98.1 F 09/01/24 15:12 Pulse Rate 80 09/01/24 15:12 Respiratory Rate 20 09/01/24 15:12 Blood Pressure 139/118 H 09/01/24 15:12 Pulse Oximetry 100 09/01/24 15:12 Oxygen Delivery Room Air 09/01/24 15:12 Reviewed. MDM - Female Genitourinary MDM Narrative Medical decision making narrative: Exam findings and UA show no acute concerns or changes; patient is non-toxic appearing and is in no distress. Anticipatory guidance given, will treat for low back pain/sciatica. I advised patient to follow-up with her primary care doctor tomorrow for further evaluation of her symptoms. Patient is appropriate for outpatient treatment and follow-up. Differential Diagnosis Differential diagnosis: Likely urinary tract infection and cystitis Critical Care Time Critical Care Time Critical Care Time: No Discharge Plan Discharge Clinical Impression: Nonspecific low back pain Patient Disposition: Home, Self-Care Condition: Stable Instructions: Constipation (ED), Acute Low Back Pain (ED) Additional Instructions: Call your primary care doctor tomorrow morning and make an appointment for further evaluation We will send a urine culture to the lab; if the culture identifies an organism that requires antibiotic, you will receive a phone call from an urgent care staff member and an appropriate antibiotic will be prescribed. Walking and other gentle exercising several times a week has been shown to improve back pain. Take prednisone as directed, take muscle relaxers every 8 hours as needed for muscle spasm- do not drive or make any important decisions while on this medication for it can make you drowsy. You may apply ice to the area as needed. If you experience any worsening pain, swelling, numbness, weakness please go to ER. Contact your doctor or go to the emergency department if you develop problems with bladder or bowel function, weakness or loss of feeling in one or both of your legs, or any other serious concerns. Take Miralax 2 capful twice daily until bowel movements are regular. To maintain soft stools after constipation is relieved, you may take Colace 100-200 mg up to three times per day. Maintain fluid intake 6-8 glasses per day. Please increase fibers (fruits and vegetables) in your diet, or use bulk fiber supplements. Decrease or eliminate intake of fast food and junk foods. Patient Language: Italian Prescriptions: New cyclobenzaprine 10 mg tablet 5 mg PO TID PRN (Reason: muscle spasm) Qty: 20 0RF prednisone 20 mg tablet 40 mg PO DAILY 5 Days Qty: 10 0RF No Action aspirin [Baby Aspirin] 81 mg Tablet,Chewable 81 mg PO DAILY Trintellix 10 mg Tablet 10 mg PO DAILY Mydayis 37.5 mg capsule, ER multiphase 24 hr 37.5 mg PO DAILY atorvastatin 20 mg tablet 20 mg PO DAILY Rx Instructions: 20 MG BY MOUTH DAILY LAST REFILL UNTIL SEEN amlodipine-benazepril 5-10 mg capsule 1 cap PO DAILY pantoprazole 40 mg tablet,delayed release (DR/EC) 40 mg PO QAM ropinirole 1 mg tablet 1 mg PO QHS bupropion HCl 300 mg tablet extended release 24 hr 300 mg PO QAM escitalopram oxalate 20 mg tablet 20 mg PO DAILY lamotrigine 150 mg tablet 150 mg PO BID trazodone 50 mg tablet 50 mg PO DAILY buspirone 15 mg tablet 15 mg PO TID dicyclomine 10 mg capsule 10 mg PO TID ferrous sulfate 325 mg (65 mg iron) tablet 325 mg PO DAILY Qty: 30 3RF levothyroxine 100 mcg tablet 100 mcg PO DAILY Qty: 90 1RF Rx Instructions: Take medication 30-60 minutes before other medication or food. furosemide 20 mg tablet See Rx Instructions .ROUTE .COMPLEX Qty: 30 0RF Dose Instruction: 20 MG BY MOUTH EACH MORNING LAST REFILL UNTIL SEEN Rx Instructions: 20 MG BY MOUTH EACH MORNING LAST REFILL UNTIL SEEN alendronate 70 mg tablet, effervescent 70 mg PO WEEKLY Qty: 12 0RF Follow-up/Referrals: All,Emmett Dela Cruz MD [Primary Care Provider] - 2 Days Time of Disposition: 16:14
[2024-09-01 16:01] LABS: EDUAAPPEAR Cloudy; EDUABILI Negative (Negative); EDUABLOOD Negative (Negative); EDUACOLOR1 Light/Pale; EDUAGLUCOSE Negative (Negative); EDUAKETONE Negative (Negative); EDUALEUKO Negative (Negative); EDUANITRATE Negative (Negative); EDUAPROTEIN Negative (Negative); EDUASPGRAVITY 1.025; EDUAUROBILI 0.2
--- OUTSIDE RECORDS SUMMARY | 2024-09-04 14:20 | XMS_ITS ---
Care Plan - [facility] Created [facility]: September 04, 2024 EDITH DARBY : 1950 Sex: Female Author Organization [facility] Address [address] [place] [address] Phone Care Team Providers Care Computer Science Intern Name Role Phone RHIANNON DAI, EILEEN JJ Unavailable [phone] JYOTI DAI, GOLDIE Person Primary Care Provider [phone]
--- OUTSIDE RECORDS SUMMARY | 2024-09-04 14:21 | XMS_ITS | Clinical Summary ---
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 Name Role Phone RHIANNON DAI, EILEEN JJ Unavailable [phone] JYOTI DAI, GOLDIE Person Primary Care Provider [phone] Reason for Visit and Chief Complaint The Chief Complaint is: follow up for depression and anxiety Problems Includes: Problems addressed during this encounter and other active Problems Current Visit Onset Date Resolved Date Provider Conditio n Status Depressive Disorder, Nos 04/13/2018 EILEEN VINCENT MD Active Last Documented On 8 6:05AM ; [facility] Adult Attention Deficit Hype ractivity Disorder 01/16/2017 EILEEN VINCENT MD Active Last Documented On 7 11:10AM ; [facility] Psychophysiological Insomnia 09/27/2016 EILEEN VINCENT MD Active Last Documented On 7 10:35AM ; [facility] Bipolar I Disorder 03/13/2015 EILEEN BREEN MD Active Last Documented On 5 10:21AM ; [facility] Dementia 02/10/2015 EILEEN VINCENT MD Ac tive Last Documented On 5 10:58AM ; [facility] Generalized Anxiety Disorder 02/10/2015 EILEEN VINCENT MD Active Last Documented On 5 10:22AM ; [facility] Restless Legs Syndrome 07/28/2013 EILEEN DE LA VEGA MD Inactive Last Documented On 5 10:42AM ; [facility] Restless Legs Syndrome 07/28/2013 EILEEN DE LA VEGA MD Active Last Documented On 1 11:20AM ; [facility] Past Visits Onset Date Resolved Date Provider Condition Status Mild cognitive impairment of uncertain or unknown etiology 02/10/2015 EILEEN VINCENT MD Active Last Documented On 5 10:36AM ; [facility] Sleep apnea, unspecified 04/14/2013 EILEEN VINCENT MD Active Last Documented On 5 10:51AM ; [facility] Hypothyroidism, unspecified 08/02/2012 EILEEN VINCENT MD Active Last Documented On 5 10:49AM ; [facility] Gastro-esophageal reflux dis ease without esophagitis 08/02/2012 EILEEN VINCENT MD Active Last Documented On 5 10:37AM ; [facility] Fracture of Nasal Bones 08/02/2012 EILEEN VINCENT MD Active Last Documented On 2 11:16AM ; [facility] Hyperlipidemia, unspecified 08/02/2012 EILEEN VINCENT MD Active Last Documented On 5 10:38AM ; [facility] Essential (primary) hypertension 08/02/2012 MET LEONIDES VINCENT MD Active Last Documented On 5 10:38AM ; [facility] Irritable bowel syndrome without diarrhea 08/02/2012 EILEEN VINCENT MD Active Last Documented On 5 10:50AM ; [facility] Plan of Treatment Bipolar Depression - Lamictal 150 mg 1 tab twice a day - pt denied SJS rash with this so far Depression - Wellbutrin XL 300 mg 1 tab daily, Trintellix 10 mg a day added (07/17/22) - this helped Generalized Anxiety Disorder - Buspar 15 mg 1 tab three times daily and Lexapro 20 mg 1 tab daily Panic disorder - Hydroxyzine 25 mg 1 a day or 2 x a day as needed for severe panic/anxiety Dementia - Namzaric 28 - 10 1 capsule every morning Attention Deficit Hyperactivity Disorder - continue Mydayis 37.5 mg 1 capsule in the morning Psychophysiological Insomnia - Trazodone 50 mg 1 tab every night at bedtime, Belsomra 10 mg at hs as needed for sleep, encouraged good sleep hygiene habits - Last Documented On 10/30/2022 1:02AM ; [facility] Education and Decision Aids were provided during visit for: Patient counseling I discuss ed risk, benefits, and side effects of sleep aid - Belsomra - including the possibility of sleep related behaviors i.e. sleepwalking, sleeptalking, sleepdriving, etc... Pt verbalized understanding. So far, pt denied sleep related behaviors Last Documented On 3 12:52AM ; [facility] Discussed good sleep hygiene habits Last Documented On 3 11:27AM ; [facility] I recommended cognitive exer cises such as reading and/or word search puzzles, etc.. Last Documented On 3 11:51PM ; [facility] Assessments Includes: Assessments from this encounter Findings - Dementia - Last Documented On 10/30/2022 1:02AM ; [facility] - Restless legs syndrome - Last Documented On 10/30/2022 1:02AM ; [facility] - Bipolar I disorder - Last Documented On 10/30/2022 1:02AM ; [facility] - Depressive disorder - Last Documented On 10/30/2022 1:02AM ; [facility] - Psychophysiological insomnia - Last Documented On 10/30/2022 1:02AM ; [facility] - Generalized anxiety disorder - Last Documented On 10/30/2022 1:02AM ; [facility] - Adult attention deficit hyperactivity disorder - Last Documented On 10/30/2022 1:02AM ; [facility] Instructions Includes: Instructions from this encounter Education and Decision Aids were provided during visit for: Patient counseling I discuss ed risk, benefits, and side effects of sleep aid - Belsomra - including the possibility of sleep related behaviors i.e. sleepwalking, sleeptalking, sleepdriving, etc... Pt verbalized understanding. So far, pt denied sleep related behaviors Last Documented On 3 12:52AM ; [facility] Discussed good sleep hygiene habits Last Documented On 3 11:27AM ; [facility] I recommended cognitive exer cises such as reading and/or word search puzzles, etc.. Last Documented On 3 11:51PM ; [facility] Medical Equipment - Implanted Devices Includes: Current Devices No Medical Equipment Recorded Medications Includes: Medications discussed during this encounter and other current Medications Discontinued / Stopped on this date EILEEN VINCENT MD on 08/28/2022 Mydayis 37.5 MG Oral Capsule Extended Release 24 Hour Provider: EILEEN VINCENT MD Diagnosis: Attention-defici t hyperactivity disorder, other type Last Documented On 3 10:52AM By WISAM JUAREZ Timo ; [facility] Quviviq 50 MG Oral Tablet Provider: EILEEN VINCENT MD Diagnosis: Psychophysiologi c insomnia Last Documented On 3 10:52AM By WISAM JUAREZ Timo ; [facility] hydrOXYzine HCl 25 MG Oral Tablet Provide r: EILEEN VINCENT MD Diagnosis: Last Documented On 10/17/2022 7:11PM By Radha Vincent MD ; [facility] lamoTRIgine 150 MG Oral Tablet Provider: EILEEN VINCENT MD Diagnosis: Bipolar disorder , unspecified Last Documented On 3 10:53AM By WISAM CASH ; [facility] busPIRone HCl 15 MG Oral Tablet Provider: EILEEN VINCENT MD Diagnosis: Generalized anxi ety disorder Last Documented On 3 10:53AM By WISAM JUAREZ Timo ; [facility] Current Medications (continue as prescribed) Mydayis 37.5 MG Oral Capsule Extended Release 24 Hour 12/07/2022 Provider: EILEEN VINCENT MD Diagnosis: Attention-defici t hyperactivity disorder, combined type 1 Capsule every morning Last Documented On 12/07/2022 4:33PM By Radha Vincent MD ; [facility] hydrOXYzine HCl 25 MG Oral Tablet 10/17/2022 Provide r: EILEEN VINCENT MD Diagnosis: 1 tab a day as needed only for itching/anxiety Last Documented On 10/17/2022 7:11PM By Radha Vincent MD ; [facility] Belsomra 10 MG Oral Tablet 09/27/2022 Provider: EILEEN VINCENT MD Diagnosis: Psychophysiologi c insomnia DIRECTED - ONE (1) TAB AT BEDTIME NEEDED FOR SLEEP Last Documented On 3 11:26AM By Radha Vincent MD ; [facility] Escitalopram Oxalate 20 MG Oral Tablet 09/25/2022 Provider: EILEEN VINCENT MD Diagnosis: Generalized anxi ety disorder TAKE ONE TABLET BY MOUTH DAILY Last Documented On 3 10:40AM By Radha Vincent MD ; [facility] lamoTRIgine 150 MG Oral Tablet 09/25/2022 Provider: EILEEN VINCENT MD Diagnosis: TAKE ONE TABLET BY MOUTH TWO TIMES A DAY Last Documented On 3 10:40AM By Radha Vincent MD ; [facility] rOPINIRole HCl 2 MG Oral Tablet 09/25/2022 Provider: EILEEN VINCENT MD Diagnosis: Restless legs sy ndrome DIRECTED - ONE (1) TAB AT FIVE (5) IN THE EVENING FOR RESTLESS LEGS Last Documented On 3 10:37AM By Radha Vincent MD ; [facility] buPROPion HCl ER (XL) 300 MG Oral Tablet Extended Release 24 Hour 07/03/2022 Provider: EILEEN VINCENT MD Diagnosis: Major depressive disorder, single episode, unspecified 1 tablet every morning Last Documented On 07/03/2022 1:56PM By Radha Vincent MD ; [facility] Alendronate Sodium 70 MG Oral Tablet 06/19/2022 Prov ider: WOLF MITCHELL MD Diagnosis: 1 tab weekly Last Documented On 2 11:54AM By WISAM CASH ; [facility] traZODone HCl 50 MG Oral Tablet 02/07/2022 Provider: EILEEN VINCENT MD Diagnosis: TAKE ONE (1) OR TWO (2) TABL ETS BY MOUTH AT BEDTIME NEEDED SLEEP Last Documented On 2 10:04AM By Radha Vincent MD ; [facility] Levothyroxine Sodium 100 MCG Oral Capsule 04/14/2020 Provider: GOLDIE KIDD MD Diagnosis: 1 tab daily Last Documented On 0 11:36AM By WISAM CASH ; [facility] Pantoprazole Sodium 40 MG Or al Tablet Delayed Release 11/15/2019 Provider: SIERRA MCGARRY Diagnosis: 1 tab daily Last Documented On 0 11:20AM By WISAM CASH ; [facility] Azelastine HCl 0.15% Nasal Solution 08/21/2019 Provi itz: GOLDIE KIDD MD Diagnosis: 2 sprays in each nostril twice a day Last Documented On 0 11:35AM By WISAM CASH ; [facility] Ferrous Sulfate 325 (65 Fe) MG Oral Tablet 04/10/2019 Provider: GOLDIE KIDD MD Diagnosis: 1 tab daily Last Documented On 04/10/2019 1:36PM By WISAM CASH ; [facility] Fluticasone Propionate 50MCG /ACT Nasal Suspension 07/25/2018 Provider: BETSY CARRIZALES MD Diagnosis: 2 sprays in each nostril daily Last Documented On 11/28/2018 3:50PM By WISAM CASH ; [facility] Amlodipine Besy-Benazepril H Cl 5-10 MG Capsule, conventional 03/04/2016 Provider: BETSY CARRIZALES MD Diagnosis: 1 daily Last Documented On 6 9:55AM By WILMER REDDY LPN ; [facility] Lipitor 20 MG Tablet 11/10/2015 Provider: JEFFERSON CARRIZALES MD Diagnosis: 1 tablet every evening Last Documented On 6 10:25AM By WILMER REDDY LPN ; [facility] Dicyclomine HCl 10 MG Capsule, conventional 11/10/2015 Provider: BETSY CARRIZALES MD Diagnosis: 1 capsule daily Last Documented On 6 10:22AM By WILMER REDDY LPN ; [facility] Aspirin 81 MG Tablet 11/10/2015 Provider: JEFFERSON CARRIZALES MD Diagnosis: 1 tablet daily Last Documented On 6 10:23AM By WILMER REDDY LPN ; [facility] Lasix 20 MG Tablet 11/10/2015 Provider: BETSY CARRIZALES MD Diagnosis: 1 tablet every morning Last Documented On 6 10:24AM By WILMER REDDY LPN ; [facility] Suspended Medications Trintellix 10 MG Oral Tablet 11/16/2022 Provider: EILEEN VINCENT MD Diagnosis: Major depressive disorder, single episode, unspecified TAKE ONE (1) TABLET BY MOUTH DAILY Last Documented On 3 12:52PM By Radha Vincent MD ; [facility] Namzaric 28-10 MG Oral Capsule Extended Release 24 Hour 10/17/2022 Provider: EILEEN VINCENT MD Diagnosis: Dem in oth dis c lassd elswhr,unsp sev,w/o beh/psych/mood/anx TAKE ONE CAPSULE BY MOUTH EV HELLEN MORNING Last Documented On 3 11:37AM By Radha Vincent MD ; [facility] busPIRone HCl 15 MG Oral Tablet 08/29/2022 Provider: EILEEN VINCENT MD Diagnosis: TAKE ONE TABLET BY MOUTH THREE TIMES a DAY Last Documented On 08/29/2022 3:43PM By Radha Vincent MD ; [facility] Past Medications on file hydrOXYzine HCl 25 MG Oral Tablet 10/08/2020 - 11/07/2020 Provider: EILEEN VINCENT MD Diagnosis: Generalized anxi ety disorder as directed - 1 tab a day as needed for agitation/anxiety Last Documented On 10/08/2020 2:47PM By Radha Vincent MD ; [facility] LaMICtal 150MG Oral Tablet 09/24/2018 - 09/27/2018 Provider: EILEEN VINCENT MD Diagnosis: Bipolar disorder , unspecified One tablet twice a day Last Documented On 09/24/2018 1:31PM By Radha Vincent MD ; [facility] Atorvastatin Calcium 20 MG OR TABS 01/28/2013 - 2012 Provider: Diagnosis: Last Documented On 3 3:46PM By TERRI CASH ; [facility] Medications Administered Includes: Administered Medications from this encounter No Administered Medications Recorded Vital Signs Includes: Vital Signs from this encounter Vital Name 10/17/2022 11:28A Blood Pressure Sitting L 147/88 BP Cuff Size Regular Pulse Rate-Sitting (bpm) 98 Pulse Rhythm Regular Height (in) 63 Weight (lb) 161 Body Mass Index 28.5 Body Surface Area 1.8 Note: self reported vitals Last Documented: On 10/17/2022 11:28A M ; [facility] Results Includes: Results discussed during this encounter No Results Recorded For Specified Dates History of Present Illness Includes: History of Present Illness from this encounter HPI EDITH DARBY is a 72 year old female. - Allergy list reviewed - Past medical history reviewed - Medication list reviewed Dodie reported that she has been having some somatic symptoms that seem to be chronic, i.e. occasional diarrhea, heartburn, joint pain, dizziness and vertigo. She said that at times she has balance issues. She said that last September 2022 she missed a step when she was in a car wash and probably broke her now but she did not go to the emergency room. She was asked to see Dr. Carrizales if she is having some pain issues. She denied feeling depressed. The combination of Trintellix and Bupropion seemed to be helping. She denied having any mood swings. The Lamictal 150 mg twice a day seemed to be helping. She denied having any rash reaction to the Lamictal; although, occasionally she has some periods of itching but this is something chronic that she had before due to allergies. The Lexapro 20 mg once a day seemed to be helping with her anxiety. She denied having any excessive anxiety. She denied having any suicidal thoughts. No delusions or hallucinations. At times, she gets distracted but overall the Mydayis seems to help with her concentration. She was encouraged to continue her cognitive activities such as reading and doing crossword puzzles or word search puzzles. Sleep has been difficult. She tried the Belsomra but she had to wake up in the middle of the night because she had to go to the bathroom. She stopped taking the Trazodone since it does not seem to help. She denied having any sleep related behaviors with the Belsomra 10 mg at bedtime. Occasionally, she gets tired. Appetite is good. She denied feeling bad about herself. No delusions or hallucinations. The Requip seems to help with her restless legs. Her said that she is no longer kicking and jerking her legs. The Buspar seems to help with her anxiety. She had to be given Hydrocodone from the fall that she had 2 months ago. As far as her sleep apnea, she wears a dental device and is on oxygen 2 liters per nasal cannula as needed. She was reminded that she has Hydroxyzine as needed for itching, nervousness and anxiety. She denied side effects from her medications. MENTAL STATUS EXAM: Sensorium - alert, oriented to name, place, and time Attitude - cooperative Gait - ambulatory Sleep - at times she wakes up in the middle of the night to go to the bathroom, dental device compliant - occasionally wears O2 at 2L Interest/Energy/Motivation - good Guilt/Worthlessness - absent Concentration/Attention Span - able to focus and concentrate Memory Recall - at times forgetful, memory recall = 2/3 MMSE = 29/30 Clock = 2 Word Fluency = 14 Appetite - good - on 07/17/22 pt weighed 165 lbs and on 10/17/21 she weighed 161 lbs so she lost 4 lbs Suicidal Thoughts - absent Homicidal Thoughts - absent Delusions - absent Hallucinations - absent Appearance - casually groomed Motor Behavior - calm Eye Contact - intermittent Speech - fluent Mood - not depressed, no mood swings Affect - not as anxious Thought Process - coherent Insight and Judgment - intact Social History Description Last Updated Daily coffee consumption -- no coffee, 2 glasses of unsweetened tea daily 08/21/2019 Last Documented On 3 10:50AM ; [facility] She was born in [place], [place]. She was raised in [place], [place] and [place], [place]. She was close to her parents while growing up and they were supportive of her. 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 She denied any history of verbal,physical or sexual abuse 01/16/2017 Last Documented On 3 10:50AM ; [facility] Marital history -- 01/16/2017 Last Documented On 3 10:50AM ; [facility] Work history pt used to work as a [employer], but has been disabled since 2005 due to memory problems 11/08/2012 Last Documented On 3 10:50AM ; [facility] Not using alcohol 08/02/2012 Last Documented On 3 10:50AM ; [facility] Not using drugs (Illicit) 08/02/2012 Last Documented On 3 10:50AM ; [facility] Smoking status : Never smoked 08/02/2012 Last Documented On 3 10:50AM ; [facility] Procedures and Surgical History Includes: Procedures from this encounter Procedures Code Diagnosis Performing Provider Service L ocation Service Date education and instructions Last Documented On 3 10:50AM ; [facility] dangerousness assessment: suicide risk -not suic idal 3085F Last Documented On 3 10:50AM ; [facility] use of tobacco assessment performed 1000F Last Documented On 3 10:50AM ; [facility] patient screened for future fall risk - 15 3288F Last Documented On 3 11:27AM ; [facility] review of medications documented 1160F Last Documented On 3 10:50AM ; [facility] screening for adult depressi on: impression and score - please see above treatment and PHQ score Last Documented On 3 10:50AM ; [facility] standardized depression screening: posit kofi for symptoms Last Documented On 3 10:50AM ; [facility] encouragement to exercise Last Documented On 3 10:50AM ; [facility] Clinical summary provided to patient Last Documented On 3 10:50AM ; [facility] PHQ-9: total score 4 Last Documented On 3 10:30AM ; [facility] Surgical History Last Updated 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 04/201811/28/2018 Last Documented On 3 10:50AM ; [facility] History of hallux valgus (bunion) correc tion -- 08/01/17 09/07/2017 Last Documented On 3 10:50AM ; [facility] History of excision left foot bunion-- 2 012 01/28/2015 Last Documented On 3 10:50AM ; [facility] History of tubal ligation 01/28/2015 Last Documented On 3 10:50AM ; [facility] History of hysterectomy 01/28/2015 Last Documented On 3 10:50AM ; [facility] History of cholecystectomy 08/02/2012 Last Documented On 3 10:50AM ; [facility] Medical History Includes: Medical History addressed during this encounter Description Last Updated History of bronchitis - give n Albuterol HFA 90 mcg and Tessalon Perles 100 mg 09/03/22 10/17/2022 Last Documented On 3 1:02AM ; [facility] History of bronchitis - give n Zpak 250 mg and Albuterol HFA 90 mcg inhaler on 02/23/22 and given Methylprednisolone Dosepak 4 mg on 02/18/22 10/17/2022 Last Documented On 3 10:50AM ; [facility] History of fracture of the n juan f bones - given Hydrocodone 5/325 from injuries sustained from fall at her son's [employer] 08/28/22 10/17/2022 Last Documented On 3 1:02AM ; [facility] History of fall risk -- pt h as had 3 falls -- one in 10/2017, twice in December around 12/25/2017, pt had swollen ankles (right side) -- Dr. Carrizales told her to put ice and swelling went away ~-- #4 pt fell 11/14/18 -- she slipped on her couch cushions while cleaning a mirror and landed on her back -- no apparent injuries ~-- #5 pt fell 07/2019 -- she cannot recall the details, denies injury ~-- #6 12/14/19 patient missed a step and bruised her right stark and knee ~-- #7 10/2020 patient tripped over motorcycle trailer; received bruising to her side and breast ~-- #8 02/12/22 -- tripped going up the steps -- she bruised her right great toe; seen at urgent care -- possible slight fracture ~-- #9 02/19/22 -- while at her son's job she missed a big step and fell flat on the side of her face; she bloodied her face, knee and lip ~-- #10 04/2022 -- patient missed a step going down while she was at the carwash; she had a nosebleed and a sore right knee; she did not go to the Dr. or ER ~-- #11 -- patient missed step at the carwash and fractured her nose; she wore a splint 10/17/2022 Last Documented On 3 1:02AM ; [facility] History of obstructive sleep apnea -- sleep study done 05/22/13 at [facility] under Dr. Cutler. She was wearing a dental device purchased from [employer]. Patient wears her dental device. She is getting it refitted 10/2022. She uses O2 at 2 liter as needed 10/17/2022 Last Documented On 3 1:02AM ; [facility] Primary Care Provider: Dr. Angela Carrizales ~Dr. Sierra Mcgarry -- Datastage Consultant ~Dr. Naveed Lala, DPM -- Clinical Director ~Dr. Wolf Mitchell -- Leisure Travel Agent ~Dr. Keanu Mitchell, NICKY -- Dentist ~Dr. Joshua Hanson, OD -- Foreign Correspondent 07/17/2022 Last Documented On 3 10:50AM ; [facility] History of hammer toe - 2nd toe of left foot straightened by Dr. Hiro Arthur 11/05/20 -- given Keflex 500 mg 04/05/2022 Last Documented On 3 10:50AM ; [facility] History of coronavirus 2019- nCoV vaccine - Pfizer #1 11/02/20 #2 03/23/21 -- as of 07/29/21 no booster yet 07/29/2021 Last Documented On 3 10:50AM ; [facility] History of vaginal candidiasis - given F lagyl 500 mg 11/06/20 12/20/2020 Last Documented On 3 10:50AM ; [facility] History of colonoscopy - 11/202012/21/19 21 Last Documented On 3 10:50AM ; [facility] History of hearing loss - wears bilatera l hearing aids 04/10/2019 Last Documented On 3 10:50AM ; [facility] History of iron deficiency - started on Ferrous Sulfate 325 mg [address] Goldie Kidd in 01/201904/10/2019 Last Documented On 3 10:50AM ; [facility] History of head injury /brain trauma Last Documented On 3 10:50AM ; [facility] History of sprain of the left foot 01/03 Last Documented On 3 10:50AM ; [facility] History of tinea pedis 08/01/2016 Last Documented On 3 10:50AM ; [facility] History of Epidural Steroid Injection -- 03/08/[address] Yi for back pain 03/13/2016 Last Documented On 3 10:50AM ; [facility] History of irritable bowel syndrome 01/13 Last Documented On 3 10:50AM ; [facility] History of esophageal reflux 08/02/2012 Last Documented On 3 10:50AM ; [facility] History of hypothyroidism 08/02/2012 Last Documented On 3 10:50AM ; [facility] History of hyperlipidemia 08/02/2012 Last Documented On 3 10:50AM ; [facility] History of hypertension 08/02/2012 Last Documented On 3 10:50AM ; [facility] Family History Includes: Family History addressed during this encounter Description Last Updated Paternal history of depression -- father 10/15/2014 Last Documented On 3 10:50AM ; [facility] Maternal history of depression -- mother 10/15/2014 Last Documented On 3 10:50AM ; [facility] Sororal history of depression -- sister 10/15/2014 Last Documented On 3 10:50AM ; [facility] Maternal history of anxiety disorder NOS -- mother 10/15/2014 Last Documented On 3 10:50AM ; [facility] Paternal history of anxiety disorder NOS -- father 10/15/2014 Last Documented On 3 10:50AM ; [facility] Review of Systems Includes: Review of Systems from this encounter Systemic: Feeling poorly (malaise) - occasionally tired and feeling poorly (malaise). No fever, no chills, and no night sweats. Head: No headache and no sinus pain. Neck: Neck pain and neck stiffness. Eyes: Vision problems, itching of the eyes, and eye pain. Otolaryngeal: Hearing loss. No earache. Nasal discharge, hoarseness, and sore throat. Cardiovascular: No chest pain or discomfort, no palpitations, and the heart rate was not fast. Pulmonary: No dyspnea. Cough. No wheezing. Gastrointestinal: Heartburn. No nausea and no vomiting. Diarrhea and constipation. Genitourinary: No increase in urinary frequency. No dysuria. Endocrine: Polydipsia and excessive sweating. Musculoskeletal: Muscle aches, pain localized to one or more joints, and joint stiffness localized to one or more joints. Neurological: Dizziness and vertigo. No fainting and no motor disturbances. Skin: Pruritus and skin lesion: rash:. Mental Status Includes: Mental Status from this encounter Description Mini-mental status was perfo rmed 29/30 Was able to copy a design Oriented correctly to year Oriented correctly to season Oriented correctly to date Oriented correctly to day Oriented correctly to month Oriented correctly to state Oriented correctly to county Oriented correctly to town [facility]ed [facility] Oriented correctly to floor Normal recent memory for reg istration Calculation was normal for s erial sevens Recent memory was impaired i n recall 2/3 MMSE language testing was in tact Was able to read and obey a written sentence Able to name parts of object s Was able to say no ifs, and s, or buts Was able to follow a 3-stage command Depressive disorder Functional Status Includes: Functional Status from this encounter No Functional Status Recorded Physical Exam Includes: Physical Exam from this encounter Allergies Includes: Active Allergies Substance Type Reaction Onset Date Resolved Date Statu s Sulfa Antibiotics Allergy 08/02/2012 R esolved Last Documented On 9 1:33PM ; [facility] Sulfa Antibiotics Allergy 08/02/2012 A ctive Last Documented On 4 11:08AM ; [facility] Note: Imported from external source. Neupro Allergy rash 10/23/2013 Active Last Documented On 4 11:08AM ; [facility] Note: Imported from external source. Encounters Encounter Provider Location Date Check-In Time Check-Out Time Diagnosis [facility] MD [facility] 10/18/19 23 10:49AM 11:59PM Generalized Anxiety Disorder,Restless Legs Syndrome,Dementia ,Psychophysiologi maday Insomnia,Bipolar I Disorder,Adult Attention Deficit Hyperactivity Disorder,Depressi ve Disorder, Nos Insurance Includes: Active Insurance Policies Plan Name Member ID Group # Subscriber Relationship Effect kofi Dates 1 - [facility] [employer] [id number] EDITH DARBY Self 2 - [facility] [id number] INGRID DARBY 0 - Unknown Clinical Notes Includes: Clinical Notes from this encounter No Clinical Notes Recorded
--- OUTSIDE RECORDS SUMMARY | 2024-09-04 14:21 | XMS_ITS | Clinical Summary ---
Author Organization [facility] S Address [address] [place] [address] Phone Care Team Providers Care Moto Mix Operator Name Role Phone RHIANNON DAI, EILEEN JJ Unavailable [phone] JYOTI DAI, GOLDIE Person Primary Care Provider [phone] Reason for Visit and Chief Complaint * PHONE CALL Problems Includes: Problems addressed during this encounter and other active Problems Current Visit Onset Date Resolved Date Provider Conditio n Status Psychophysiological Insomnia 09/27/2016 EILEEN VINCENT MD Active Last Documented On 7 10:35AM ; [facility] Past Visits Onset Date Resolved Date Provider Condition Status Depressive Disorder, Nos 04/13/2018 EILEEN VINCENT MD Active Last Documented On 8 6:05AM ; [facility] Adult Attention Deficit Hype ractivity Disorder 01/16/2017 EILEEN VINCENT MD Active Last Documented On 7 11:10AM ; [facility] B[facility] 03/13/2015 EILEEN BREEN MD Active Last Documented On 5 10:21AM ; [facility] Dementia 02/10/2015 EILEEN VINCENT MD Ac tive Last Documented On 5 10:58AM ; [facility] Generalized Anxiety Disorder 02/10/2015 EILEEN VINCENT MD Active Last Documented On 5 10:22AM ; [facility] Mild cognitive impairment of uncertain or unknown etiology 02/10/2015 EILEEN VINCENT MD Active Last Documented On 5 10:36AM ; [facility] Restless Legs Syndrome 07/28/2013 EILEEN DE LA VEGA MD Active Last Documented On 1 11:20AM ; [facility] Sleep apnea, unspecified 04/14/2013 EILEEN VINCENT MD Active Last Documented On 5 10:51AM ; [facility] Hypothyroidism, unspecified 08/02/2012 EILEEN VINCENT MD Active Last Documented On 5 10:49AM ; [facility] Gastro-esophageal reflux dis ease without esophagitis 08/02/2012 EILEEN VINCENT MD Active Last Documented On 5 10:37AM ; [facility] Fracture of Nasal Bones 08/02/2012 EILEEN VINCENT MD Active Last Documented On 2 11:16AM ; [facility] Hyperlipidemia, unspecified 08/02/2012 EILEEN VINCENT MD Active Last Documented On 5 10:38AM ; [facility] Essential (primary) hypertension 08/02/2012 [facility] VINCENT MD Active Last Documented On 5 10:38AM ; [facility] Irritable bowel syndrome without diarrhea 08/02/2012 EILEEN VINCENT MD Active Last Documented On 5 10:50AM ; [facility] Plan of Treatment No Plan of Treatment Recorded Assessments Includes: Assessments from this encounter Findings - Psychophysiological insomnia - Last Documented On 04/11/2022 6:59PM ; [facility] Medical Equipment - Implanted Devices Includes: Current Devices No Medical Equipment Recorded Medications Includes: Medications discussed during this encounter and other current Medications New / Renewed during this visit EILEEN VINCENT MD on 04/11/2022 Quviviq 50 MG Oral Tablet Provider: EILEEN VINCENT MD 30 day supply: 30 tablet, 1 refills Diagnosis: Psychophysiologic insomnia One tablet at bed time Pharmacy: [facility], [address] - Last Documented On 2 12:18PM By Radha Vincent MD ; [facility] Current Medications (continue as prescribed) Mydayis 37.5 MG Oral Capsule Extended Release 24 Hour 12/07/2022 Provider: EILEEN VINCENT MD Diagnosis: Attention-defici t hyperactivity disorder, combined type 1 Capsule every morning Last Documented On 12/07/2022 4:33PM By Radha Vincent MD ; [facility] hydrOXYzine HCl 25 MG Oral Tablet 10/17/2022 Provide r: EILEEN VINCENT MD Diagnosis: 1 tab a day as needed only for itching/anxiety Last Documented On 10/17/2022 7:11PM By Radha Vincent MD ; [facility] Belsomra 10 MG Oral Tablet 09/27/2022 Provider: EILEEN VINCENT MD Diagnosis: Psychophysiologi c insomnia DIRECTED - ONE (1) TAB AT BEDTIME NEEDED FOR SLEEP Last Documented On 3 11:26AM By Radha Vincent MD ; [facility] Escitalopram Oxalate 20 MG Oral Tablet 09/25/2022 Provider: EILEEN VINCENT MD Diagnosis: Generalized anxi ety disorder TAKE ONE TABLET BY MOUTH DAILY Last Documented On 3 10:40AM By Radha Vincent MD ; [facility] lamoTRIgine 150 MG Oral Tablet 09/25/2022 Provider: EILEEN VINCENT MD Diagnosis: TAKE ONE TABLET BY MOUTH TWO TIMES A DAY Last Documented On 3 10:40AM By Radha Vincent MD ; [facility] rOPINIRole HCl 2 MG Oral Tablet 09/25/2022 Provider: EILEEN VINCENT MD Diagnosis: Restless legs sy ndrome DIRECTED - ONE (1) TAB AT FIVE (5) IN THE EVENING FOR RESTLESS LEGS Last Documented On 3 10:37AM By Radha Vincent MD ; [facility] buPROPion HCl ER (XL) 300 MG Oral Tablet Extended Release 24 Hour 07/03/2022 Provider: EILEEN VINCENT MD Diagnosis: Major depressive disorder, single episode, unspecified 1 tablet every morning Last Documented On 07/03/2022 1:56PM By Radha Vincent MD ; [facility] Alendronate Sodium 70 MG Oral Tablet 06/19/2022 Prov ider: WOLF MANJARREZ MD Diagnosis: 1 tab weekly Last Documented On 2 11:54AM By WISAM CASH ; [facility] traZODone HCl 50 MG Oral Tablet 02/07/2022 Provider: EILEEN VINCENT MD Diagnosis: TAKE ONE (1) OR TWO (2) TABL ETS BY MOUTH AT BEDTIME NEEDED SLEEP Last Documented On 2 10:04AM By Radha Vincent MD ; [facility] Levothyroxine Sodium 100 MCG Oral Capsule 04/14/2020 Provider: GOLDIE MONTES MD Diagnosis: 1 tab daily Last Documented On 0 11:36AM By WISAM CASH ; [facility] Pantoprazole Sodium 40 MG Or al Tablet Delayed Release 11/15/2019 Provider: MUSA DEJESUS Diagnosis: 1 tab daily Last Documented On 0 11:20AM By WISAM CASH ; [facility] Azelastine HCl 0.15% Nasal Solution 08/21/2019 Provi itz: GOLDIE MONTES MD Diagnosis: 2 sprays in each nostril twice a day Last Documented On 0 11:35AM By WISAM CASH ; [facility] Ferrous Sulfate 325 (65 Fe) MG Oral Tablet 04/10/2019 Provider: GOLDIE MONTES MD Diagnosis: 1 tab daily Last Documented On 04/10/2019 1:36PM By WISAM CASH ; [facility] Fluticasone Propionate 50MCG /ACT Nasal Suspension 07/25/2018 Provider: BETSY VALENCIA MD Diagnosis: 2 sprays in each nostril daily Last Documented On 11/28/2018 3:50PM By WISAM CASH ; [facility] Amlodipine Besy-Benazepril H Cl 5-10 MG Capsule, conventional 03/04/2016 Provider: BETSY VALENCIA MD Diagnosis: 1 daily Last Documented On 6 9:55AM By WILMER REDDY LPN ; [facility] Lipitor 20 MG Tablet 11/10/2015 Provider: JEFFERSON VALENCIA MD Diagnosis: 1 tablet every evening Last Documented On 6 10:25AM By WILMER REDDY LPN ; [facility] Dicyclomine HCl 10 MG Capsule, conventional 11/10/2015 Provider: BETSY VALENCIA MD Diagnosis: 1 capsule daily Last Documented On 6 10:22AM By WILMER REDDY LPN ; [facility] Aspirin 81 MG Tablet 11/10/2015 Provider: JEFFERSON VALENCIA MD Diagnosis: 1 tablet daily Last Documented On 6 10:23AM By WILMER REDDY LPN ; [facility] Lasix 20 MG Tablet 11/10/2015 Provider: BETSY VALENCIA MD Diagnosis: 1 tablet every morning Last Documented On 6 10:24AM By WILMER REDDY LPN ; [facility] Suspended Medications Trintellix 10 MG Oral Tablet 11/16/2022 Provider: EILEEN VINCENT MD Diagnosis: Major depressive disorder, single episode, unspecified TAKE ONE (1) TABLET BY MOUTH DAILY Last Documented On 3 12:52PM By Radha Vincent MD ; [facility] Namzaric 28-10 MG Oral Capsule Extended Release 24 Hour 10/17/2022 Provider: EILEEN VINCENT MD Diagnosis: Dem in oth dis c lassd elswhr,unsp sev,w/o beh/psych/mood/anx TAKE ONE CAPSULE BY MOUTH EV HELLEN MORNING Last Documented On 3 11:37AM By Radha Vincent MD ; [facility] busPIRone HCl 15 MG Oral Tablet 08/29/2022 Provider: EILEEN VINCENT MD Diagnosis: TAKE ONE TABLET BY MOUTH THREE TIMES a DAY Last Documented On 08/29/2022 3:43PM By Radha Vincent MD ; [facility] Past Medications on file hydrOXYzine HCl 25 MG Oral Tablet 10/08/2020 - 11/07/2020 Provider: EILEEN VINCENT MD Diagnosis: Generalized anxi ety disorder as directed - 1 tab a day as needed for agitation/anxiety Last Documented On 10/08/2020 2:47PM By Radha Vincent MD ; [facility] LaMICtal 150MG Oral Tablet 09/24/2018 - 09/27/2018 Provider: EILEEN VINCENT MD Diagnosis: Bipolar disorder , unspecified One tablet twice a day Last Documented On 09/24/2018 1:31PM By Radha Vincent MD ; [facility] Atorvastatin Calcium 20 MG OR TABS 01/28/2013 - 2012 Provider: Diagnosis: Last Documented On 3 3:46PM By TERRI CASH ; [facility] Medications Administered Includes: Administered Medications from this encounter No Administered Medications Recorded Results Includes: Results discussed during this encounter No Results Recorded For Specified Dates History of Present Illness Includes: History of Present Illness from this encounter No History of Present Illness Recorded Social History No Social History Recorded - Smoking Status Unknown Medical History Includes: Medical History addressed during this encounter No Medical History Recorded Family History Includes: Family History addressed during this encounter No Family History Recorded Review of Systems Includes: Review of Systems from this encounter No Review of Systems Recorded Mental Status Includes: Mental Status from this encounter No Mental Status Recorded Functional Status Includes: Functional Status from this encounter No Functional Status Recorded Physical Exam Includes: Physical Exam from this encounter No Physical Exam Recorded Allergies Includes: Active Allergies Substance Type Reaction Onset Date Resolved Date Statu s Sulfa Antibiotics Allergy 08/02/2012 R esolved Last Documented On 9 1:33PM ; [facility] Sulfa Antibiotics Allergy 08/02/2012 A ctive Last Documented On 4 11:08AM ; [facility] Note: Imported from external source. Neupro Allergy rash 10/23/2013 Active Last Documented On 4 11:08AM ; [facility] Note: Imported from external source. Encounters Encounter Provider Location Date Check-In Time Check-Out Time Diagnosis * PHONE CALL EILEEN VINCENT MD [facility] [id number] 2:51PM 11:59PM Psychophysiological Insomnia Insurance Includes: Active Insurance Policies Plan Name Member ID Group # Subscriber Relationship Effect kofi Dates 1 - [facility] [id number] EDITH DARBY Self 2 - [facility] [id number] INGRID DARBY J 0 - Unknown Clinical Notes Includes: Clinical Notes from this encounter No Clinical Notes Recorded
--- OUTSIDE RECORDS SUMMARY | 2024-09-04 14:21 | XMS_ITS | Clinical Summary ---
Author Organization [facility] Address [address] [place] [address] Phone Care Team Providers Care Area Development Manager Name Role Phone RHIANNON DAI, EILEEN JJ [...] Active Last Documented On 8 6:05AM ; [facility] Adult Attention Deficit Hype ractivity Disorder 01/16/2017 EILEEN VINCENT MD Active Last Documented On 7 11:10AM ; [facility] Psychophysiological Insomnia 09/27/2016 EILEEN VINCENT MD Active Last Documented On 7 10:35AM ; [facility] Bipolar I Disorder 03/13/2015 EILEEN BREEN MD Active Last Documented On 5 10:21AM ; [facility] Dementia 02/10/2015 EILEEN VINCENT MD Ac tive Last Documented On 5 10:58AM ; [facility] Generalized Anxiety Disorder 02/10/2015 EILEEN VINCENT MD Active Last Documented On 5 10:22AM ; [facility] Restless Legs Syndrome 07/28/2013 EILEEN DE LA VEGA MD Inactive Last Documented On 5 10:42AM ; [facility] Restless Legs Syndrome 07/28/2013 EILEEN DE LA VEGA MD Active Last Documented On 1 11:20AM ; [facility] Past Visits Onset Date Resolved Date Provider Condition Status Mild cognitive impairment of uncertain or unknown etiology 02/10/2015 EILEEN VINCENT MD Active Last Documented On 5 10:36AM ; [facility] Sleep apnea, unspecified 04/14/2013 EILEEN VINCENT MD Active Last Documented On 5 10:51AM ; [facility] Hypothyroidism, unspecified 08/02/2012 EILEEN VINCENT MD Active Last Documented On 5 10:49AM ; [facility] Gastro-esophageal reflux dis ease without esophagitis 08/02/2012 EILEEN VINCENT MD Active Last Documented On 5 10:37AM ; [facility] Fracture of Nasal Bones 08/02/2012 EILEEN VINCENT MD Active Last Documented On 2 11:16AM ; [facility] Hyperlipidemia, unspecified 08/02/2012 EILEEN VINCENT MD Active Last Documented On 5 10:38AM ; [facility] Essential (primary) hypertension 08/02/2012 MET LEONIDES VINCENT MD Active Last Documented On 5 10:38AM ; [facility] Irritable bowel syndrome without diarrhea 08/02/2012 EILEEN VINCENT MD Active Last Documented On 5 10:50AM ; [facility] Plan of Treatment Bipolar Depression - Lamictal 150 mg 1 tab twice a day - pt denied SJS rash with this so far Depression - continue Wellbutrin XL 300 mg 1 tab daily Generalized Anxiety Disorder - continue Buspar 15 mg 1 tab three times daily and Lexapro 20 mg 1 tab daily Panic disorder - Hydroxyzine 25 mg 1 a day as needed for severe panic/anxiety Dementia - continue Namzaric 28 - 10 1 capsule every morning Attention Deficit Hyperactivity Disorder - continue Mydayis 37.5 mg 1 capsule in the morning Psychophysiological Insomnia - continue Trazodone 50 mg 1 tab every night at bedtime - Last Documented On 05/11/2022 12:54PM ; [facility] Instructions to patient Lose weight - pt gained 7 lb s since last seen Last Documented On 12:51PM ; [facility] Education and Decision Aids were provided during visit for: Patient education about medi cation --- I educated patient on medication(s) and diagnosis. I reviewed the risks, benefits and side effects of patient's medications Last Documented On 11:01AM ; [facility] Discussed calming techniques such as breathing exercises and other relaxation techniques Last Documented On 11:01AM ; [facility] Discussed good sleep hygiene habits Last Documented On 11:48AM ; [facility] Assessments Includes: Assessments from this encounter Findings - Restless legs syndrome - Last Documented On 05/11/2022 12:54PM ; [facility] - Dementia - Last Documented On 05/11/2022 12:54PM ; [facility] - Bipolar I disorder - Last Documented On 05/11/2022 12:54PM ; [facility] - Depressive disorder - Last Documented On 05/11/2022 12:54PM ; [facility] - Psychophysiological insomnia - Last Documented On 05/11/2022 12:54PM ; [facility] - Generalized anxiety disorder - Last Documented On 05/11/2022 12:54PM ; [facility] - Adult attention deficit hyperactivity disorder - Last Documented On 05/11/2022 12:54PM ; [facility] Instructions Includes: Instructions from this encounter Instructions to patient Lose weight - pt gained 7 lb s since last seen Last Documented On 12:51PM ; [facility] Education and Decision Aids were provided during visit for: Patient education about medi cation --- I educated patient on medication(s) and diagnosis. I reviewed the risks, benefits and side effects of patient's medications Last Documented On 11:01AM ; [facility] Discussed calming techniques such as breathing exercises and other relaxation techniques Last Documented On 11:01AM ; [facility] Discussed good sleep hygiene habits Last Documented On 08/24/202 2 11:48AM ; [facility] Medical Equipment - Implanted Devices Includes: Current Devices No Medical Equipment Recorded Medications Includes: Medications discussed during this encounter and other current Medications Discontinued / Stopped on this date RIANA SINGLETON MD on 08/20/2018 prednisoLONE Sodium Phosphat e 1% Ophthalmic Solution Provider: RIANA SINGLETON MD Diagnosis: Last Documented On 2 11:09AM By WISAM CASH ; [facility] New / Renewed during this visit EILEEN VINCENT MD on 04/05/2022 rOPINIRole HCl 2 MG Oral Tablet Provider: EILEEN VINCENT MD 30 day supply: 30 tablet, 5 refills Diagnosis: Restless legs syndrome as directed - 1 tab at 5 pm for restless legs [facility] [address] - Last Documented On 3 10:37AM By Radha Vincent MD ; [facility] Current Medications (continue as prescribed) Mydayis 37.5 MG Oral Capsule Extended Release 24 Hour 12/07/2022 Provider: EILEEN VINCENT MD Diagnosis: Attention-defici t hyperactivity disorder, combined type 1 Capsule every morning Last Documented On 12/07/2022 4:33PM By Radha Vincent MD ; [facility] hydrOXYzine HCl 25 MG Oral Tablet 10/17/2022 Provide r: EILEEN VINCENT MD Diagnosis: 1 tab a day as needed only for itching/anxiety Last Documented On 10/17/2022 7:11PM By Radha Vincent MD ; [facility] Belsomra 10 MG Oral Tablet 09/27/2022 Provider: EILEEN VINCENT MD Diagnosis: Psychophysiologi c insomnia DIRECTED - ONE (1) TAB AT BEDTIME NEEDED FOR SLEEP Last Documented On 3 11:26AM By Radha Vincent MD ; [facility] Escitalopram Oxalate 20 MG Oral Tablet 09/25/2022 Provider: EILEEN VINCENT MD Diagnosis: Generalized anxi ety disorder TAKE ONE TABLET BY MOUTH DAILY Last Documented On 3 10:40AM By Radha Vincent MD ; [facility] lamoTRIgine 150 MG Oral Tablet 09/25/2022 Provider: EILEEN VINCENT MD Diagnosis: TAKE ONE TABLET BY MOUTH TWO TIMES A DAY Last Documented On 3 10:40AM By Radha Vincent MD ; [facility] rOPINIRole HCl 2 MG Oral Tablet 09/25/2022 Provider: EILEEN VINCENT MD Diagnosis: Restless legs sy ndrome DIRECTED - ONE (1) TAB AT FIVE (5) IN THE EVENING FOR RESTLESS LEGS Last Documented On 3 10:37AM By Radha Vincent MD ; [facility] buPROPion HCl ER (XL) 300 MG Oral Tablet Extended Release 24 Hour 07/03/2022 Provider: EILEEN VINCENT MD Diagnosis: Major depressive disorder, single episode, unspecified 1 tablet every morning Last Documented On 07/03/2022 1:56PM By Radha Vincent MD ; [facility] Alendronate Sodium 70 MG Oral Tablet 06/19/2022 Prov ider: WOLF MITCHELL MD Diagnosis: 1 tab weekly Last Documented On 2 11:54AM By WISAM CASH ; [facility] traZODone HCl 50 MG Oral Tablet 02/07/2022 Provider: EILEEN VINCENT MD Diagnosis: TAKE ONE (1) OR TWO (2) TABL ETS BY MOUTH AT BEDTIME NEEDED SLEEP Last Documented On 2 10:04AM By Radha Vincent MD ; [facility] Levothyroxine Sodium 100 MCG Oral Capsule 04/14/2020 Provider: GOLDIE KIDD MD Diagnosis: 1 tab daily Last Documented On 0 11:36AM By WISAM CASH ; [facility] Pantoprazole Sodium 40 MG Or al Tablet Delayed Release 11/15/2019 Provider: SIERRA MCGARRY Diagnosis: 1 tab daily Last Documented On 0 11:20AM By WISAM CASH ; [facility] Azelastine HCl 0.15% Nasal Solution 08/21/2019 Provi itz: GOLDIE KIDD MD Diagnosis: 2 sprays in each nostril twice a day Last Documented On 0 11:35AM By WISAM CASH ; [facility] Ferrous Sulfate 325 (65 Fe) MG Oral Tablet 04/10/2019 Provider: GOLDIE KIDD MD Diagnosis: 1 tab daily Last Documented On 04/10/2019 1:36PM By IWSAM CASH ; [facility] Fluticasone Propionate 50MCG /ACT Nasal Suspension 07/25/2018 Provider: BETSY CARIRZALES MD Diagnosis: 2 sprays in each nostril daily Last Documented On 11/28/2018 3:50PM By WISAM CASH ; [facility] Amlodipine Besy-Benazepril H Cl 5-10 MG Capsule, conventional 03/04/2016 Provider: BETSY CARRIZALES MD Diagnosis: 1 daily Last Documented On 6 9:55AM By WILMER REDDY LPN ; [facility] Lipitor 20 MG Tablet 11/10/2015 Provider: JEFFERSON CARRIZALES MD Diagnosis: 1 tablet every evening Last Documented On 6 10:25AM By WILMER REDDY LPN ; [facility] Dicyclomine HCl 10 MG Capsule, conventional 11/10/2015 Provider: BETSY CARRIZALES MD Diagnosis: 1 capsule daily Last Documented On 6 10:22AM By WILMER REDDY LPN ; [facility] Aspirin 81 MG Tablet 11/10/2015 Provider: JEFFERSON CARRIZALES MD Diagnosis: 1 tablet daily Last Documented On 6 10:23AM By WILMER REDDY LPN ; [facility] Lasix 20 MG Tablet 11/10/2015 Provider: BETSY CARRIZALES MD Diagnosis: 1 tablet every morning Last Documented On 6 10:24AM By WILMER REDDY LPN ; [facility] Suspended Medications Trintellix 10 MG Oral Tablet 11/16/2022 Provider: EILEEN VINCENT MD Diagnosis: Major depressive disorder, single episode, unspecified TAKE ONE (1) TABLET BY MOUTH DAILY Last Documented On 3 12:52PM By Radha Vincent MD ; [facility] Namzaric 28-10 MG Oral Capsule Extended Release 24 Hour 10/17/2022 Provider: EILEEN VINCENT MD Diagnosis: Dem in oth dis c lassd elswhr,unsp sev,w/o beh/psych/mood/anx TAKE ONE CAPSULE BY MOUTH EV HELLEN MORNING Last Documented On 3 11:37AM By Radha Vincent MD ; [facility] busPIRone HCl 15 MG Oral Tablet 08/29/2022 Provider: EILEEN VINCENT MD Diagnosis: TAKE ONE TABLET BY MOUTH THREE TIMES a DAY Last Documented On 08/29/2022 3:43PM By Radha Vincent MD ; [facility] Past Medications on file hydrOXYzine HCl 25 MG Oral Tablet 10/08/2020 - 11/07/2020 Provider: EILEEN VINCENT MD Diagnosis: Generalized anxi ety disorder as directed - 1 tab a day as needed for agitation/anxiety Last Documented On 10/08/2020 2:47PM By Radha Vincent MD ; [facility] LaMICtal 150MG Oral Tablet 09/24/2018 - 09/27/2018 Provider: EILEEN VINCENT MD Diagnosis: Bipolar disorder , unspecified One tablet twice a day Last Documented On 09/24/2018 1:31PM By Radha Vincent MD ; [facility] Atorvastatin Calcium 20 MG OR TABS 01/28/2013 - 2012 Provider: Diagnosis: Last Documented On 3 3:46PM By TERRI CASH ; [facility] Medications Administered Includes: Administered Medications from this encounter No Administered Medications Recorded Vital Signs Includes: Vital Signs from this encounter Vital Name 04/05/2022 11:51A Blood Pressure Sitting L 120/80 BP Cuff Size Regular Pulse Rate-Sitting (bpm) 96 Pulse Rhythm Regular Height (in) 63 Weight (lb) 166 Body Mass Index (kg/m2) 29.4 Body Surface Area (m2) 1.8 Note: self reported vitals Last Documented: On 04/05/2022 11:51A M ; [facility] Results Includes: Results discussed during this encounter No Results Recorded For Specified Dates History of Present Illness Includes: History of Present Illness from this encounter GUEVARA DARBY is a 72 year old female. - Allergy list reviewed - Past medical history reviewed - Medication list reviewed This visit was conducted with use of interactive audio and video telecommunication system with real time communication between the patient and the provider. Patient consent for virtual visit obtained today. Total time spent with patient via audio and video telecommunication 45 minutes. Pt reported that she has been coping with her bronchitis that she had 02/23/22 and she was given Albutreol. She has not been feeling down, just a little anxious. At times her sleep is interrupted since she had to go to the bathroom at night She is on 02 for her PAM. The Lamictal and Bupropion XL are helping with her mood. She denied rash from Lamictal. She denied mood swings. She gets tired at times. Appetite is good but has been overeating. She is able to focus and concentrate better with Mydayis. No delusions/hallucinations. She denied suicidal thoughts. Pt still occ gets restless at night wit her RLS so her requip will be increased to 2 mg in the evening. MENTAL STATUS EXAM: Sensorium - alert, oriented to name, place, and time Attitude - cooperative Gait - ambulatory Sleep - difficulty staying asleep due to urinary frequency -- uses O2 at 2L every night Interest/Energy/Motivation - good Guilt/Worthlessness - absent Concentration/Attention Span - able to focus and concentrate Memory Recall - at times forgetful, memory recall = 3/3 MMSE = 29/30 Clock = 4 Word Fluency = 9 Appetite - good - on 11/25/21 pt weighed 159 lbs and on 04/05/22 she weighed 166 lbs so she gained 7 lbs Suicidal Thoughts - absent Homicidal Thoughts - absent Delusions - absent Hallucinations - absent Appearance - casually groomed Motor Behavior - calm Eye Contact - intermittent Speech - fluent Mood - not depressed Affect - occ anxious Thought Process - coherent Insight and Judgment - intact Social History Description Last Updated Daily coffee consumption -- no coffee, 2 glasses of unsweetened tea daily 08/21/2019 Last Documented On 2 11:01AM ; [facility] She was born in [place], [place]. She was raised in [place], [place] and [place], [place]. She was close to her parents while growing up and they were supportive of her. 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 due to memory problems 11/08/2012 Last Documented On 11:01AM ; [facility] Not using alcohol 08/02/2012 Last Documented On 11:01AM ; [facility] Not using drugs (Illicit) 08/02/2012 Last Documented On 11:01AM ; [facility] Smoking status : Never smoked 08/02/2012 Last Documented On 11:01AM ; [facility] Procedures and Surgical History Includes: Procedures from this encounter Procedures Code Diagnosis Performing Provider Service L ocation Service Date education and instructions Last Documented On 11:01AM ; [facility] Pt to call 911 and /or go to the nearest emergency room or call me if suicidal/homicidal ideation or other serious concerns arise. ~ I gave instructions to call me should there be any questions or concerns. ~ The patient verbalized understanding and agreed to treatment plan Last Documented On 12:52PM ; [facility] dangerousness assessment: suicide risk - not jared cidal 3085F Last Documented On 12:00PM ; [facility] use of tobacco assessment performed 1000F Last Documented On 11:01AM ; [facility] patient screened for future fall risk - 13 3288F Last Documented On 11:48AM ; [facility] review of medications documented 1160F Last Documented On 11:01AM ; [facility] screening for adult depressi on: impression and score - please see above treatment and PHQ score Last Documented On 11:01AM ; [facility] standardized depression screening: posit kofi for symptoms Last Documented On 11:01AM ; [facility] encouragement to exercise Last Documented On 2 11:48AM ; [facility] Clinical summary provided to patient Last Documented On 2 11:48AM ; [facility] PHQ-9: total score 6 Last Documented On 2 12:50PM ; [facility] Surgical History Last Updated 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 04/201811/28/2018 Last Documented On 2 11:01AM ; [facility] History of hallux valgus (bunion) correc tion -- 08/01/17 09/07/2017 Last Documented On 2 11:01AM ; [facility] History of excision left foot bunion-- 2 012 01/28/2015 Last Documented On 2 11:01AM ; [facility] History of tubal ligation 01/28/2015 Last Documented On 2 11:01AM ; [facility] History of hysterectomy 01/28/2015 Last Documented On 2 11:01AM ; [facility] History of cholecystectomy 08/02/2012 Last Documented On 2 11:01AM ; [facility] Medical History Includes: Medical History addressed during this encounter Description Last Updated History of obstructive sleep apnea -- sleep study done 05/22/13 at [facility] under Dr. Cutler. She was wearing a dental device purchased from [facility] [employer]. Patient does not wear her dental device. She uses O2 at 2 liters 10/17/2022 Last Documented On 2 11:01AM ; [facility] History of bronchitis - give n Zpak 250 mg and Albuterol HFA 90 mcg inhaler on 02/23/22 and given Methylprednisolone Dosepak 4 mg on 02/18/22 04/05/2022 Last Documented On 2 12:54PM ; [facility] History of fall risk -- pt h [...] she bloodied her face, knee and lip 04/05/2022 Last Documented On 2 12:54PM ; [facility] History of hammer toe - 2nd toe of left foot straightened by Dr. Hiro Arthur 11/05/20 -- given Keflex 500 mg 04/05/2022 Last Documented On 2 12:54PM ; [facility] Primary Care Provider: Dr. Angela Carrizales ~Dr. Sierra Mcgarry -- Flat Bed Operator ~Dr. Hiro Arthur, DPM -- Data Warehousing Architect ~Dr. Mitchell -- Garment Sorter ~Dr. Keanu Mitchell, NICKY -- Dentist 04/05/2022 Last Documented On 2 12:54PM ; [facility] History of coronavirus 2019- nCoV vaccine - Pfizer #1 11/02/20 #2 03/23/21 -- as of 07/29/21 no booster yet 07/29/2021 Last Documented On 2 11:01AM ; [facility] History of vaginal candidiasis - given F lagyl 500 mg 11/06/20 12/20/2020 Last Documented On 2 11:01AM ; [facility] History of colonoscopy - 11/202012/21/19 21 Last Documented On 2 11:01AM ; [facility] History of hearing loss - wears bilater al hearing aids 04/10/2019 Last Documented On 2 11:01AM ; [facility] History of iron deficiency - started on Ferrous Sulfate 325 mg [address] Goldie Kidd in 01/201904/10/2019 Last Documented On 2 11:01AM ; [facility] History of head injury /brain trauma Last Documented On 2 11:01AM ; [facility] History of sprain of the left foot 01/03 Last Documented On 2 11:01AM ; [facility] History of tinea pedis 08/01/2016 Last Documented On 2 11:01AM ; [facility] History of Epidural Steroid Injection -- 03/08/[address] Yi for back pain 03/13/2016 Last Documented On 2 11:01AM ; [facility] History of irritable bowel syndrome 01/13 Last Documented On 2 11:01AM ; [facility] History of esophageal reflux 08/02/2012 Last Documented On 2 11:01AM ; [facility] History of hypothyroidism 08/02/2012 Last Documented On 2 11:01AM ; [facility] History of hyperlipidemia 08/02/2012 Last Documented On 2 11:01AM ; [facility] History of hypertension 08/02/2012 Last Documented On 2 11:01AM ; [facility] Family History Includes: Family History addressed during this encounter Description Last Updated Paternal history of depression -- father 10/15/2014 Last Documented On 2 11:01AM ; [facility] Maternal history of depression -- mother 10/15/2014 Last Documented On 2 11:01AM ; [facility] Sororal history of depression -- sister 10/15/2014 Last Documented On 2 11:01AM ; [facility] Maternal history of anxiety disorder NOS -- mother 10/15/2014 Last Documented On 2 11:01AM ; [facility] Paternal history of anxiety disorder NOS -- father 10/15/2014 Last Documented On 2 11:01AM ; [facility] Review of Systems Includes: Review of Systems from this encounter Systemic: Feeling poorly (malaise) - occasionally tired. No fever, no chills, and no night sweats. Recent weight change. Head: No headache. Sinus pain. Neck: No neck pain and no neck stiffness. Eyes: No vision problems. Itching of the eyes. No eye pain. Otolaryngeal: Hearing loss - hard of hearing. No earache, no nasal discharge, no hoarseness, and no sore throat. Mouth sores. Cardiovascular: No chest pain or discomfort, no palpitations, and the heart rate was not fast. Pulmonary: Dyspnea - occasionally and cough. No wheezing. Gastrointestinal: Heartburn. No nausea and no vomiting. Diarrhea and constipation. Genitourinary: No increase in urinary frequency. No dysuria. Endocrine: No polydipsia and no excessive sweating. Musculoskeletal: Muscle aches. No localized joint pain and no localized joint stiffness. Neurological: No dizziness, no vertigo, no fainting, and no motor disturbances. Skin: No pruritus. No skin lesions and no rash. Mental Status Includes: Mental Status from this encounter Description Mini-mental status was perfo rmed Was able to copy a design Oriented correctly to year Oriented correctly to season Oriented correctly to date Oriented correctly to day Oriented correctly to month Oriented correctly to state Oriented correctly to county Oriented correctly to town [facility] Oriented correctly to floor Normal recent memory for reg istration Calculation was impaired for serial sevens Recent memory was normal for recall 3/3 MMSE language testing was in tact Was [...] esolved Last Documented On 9 1:33PM ; [facility] Sulfa Antibiotics Allergy 08/02/2012 A ctive Last Documented On 4 11:08AM ; [facility] Note: Imported from external source. Neupro Allergy rash 10/23/2013 Active Last Documented On 4 11:08AM ; [facility] Note: Imported from external source. Encounters Encounter Provider Location Date Check-In Time Check-Out Time Diagnosis [facility] EILEEN VINCENT MD [facility] 04/05/20 22 11:00AM 11:59PM Generalized Anxiety Disorder,Dementia ,Psychophysiologi maday Insomnia,Bipolar I Disorder,Adult Attention Deficit Hyperactivity Disorder,Depressi ve Disorder, Nos,Restless Legs Syndrome Insurance Includes: Active Insurance Policies Plan Name Member ID Group # Subscriber Relationship Effect kofi Dates 1 - [facility] [id number] EDITH DARBY Self 2 - [facility] [id number] INGRID DARBY 0 - Unknown Clinical Notes Includes: Clinical Notes from this encounter No Clinical Notes Recorded
--- OUTSIDE RECORDS SUMMARY | 2024-09-04 14:21 | XMS_ITS | Clinical Summary ---
Author Organization [facility] S Address [address] [place] [address] Phone Care Team Providers Care Outsole Skiver Name Role Phone RHIANNON DAI, EILEEN JJ [...] Active Last Documented On 7 10:35AM ; [facility] Past Visits Onset Date Resolved Date Provider Condition Status Depressive Disorder, Nos 04/13/2018 EILEEN VINCENT MD Active Last Documented On 8 6:05AM ; [facility] Adult Attention Deficit Hype ractivity Disorder 01/16/2017 EILEEN VINCENT MD Active Last Documented On 7 11:10AM ; [facility] Bipolar [facility] Disorder 03/13/2015 EILEEN BREEN MD Active Last Documented On 5 10:21AM ; [facility] Dementia 02/10/2015 EILEEN VINCENT MD Ac tive Last Documented On 5 10:58AM ; [facility] Generalized Anxiety Disorder 02/10/2015 EILEEN VINCENT MD Active Last Documented On 5 10:22AM ; [facility] Mild cognitive impairment of uncertain or unknown etiology 02/10/2015 EILEEN VINCENT MD Active Last Documented On 5 10:36AM ; [facility] Restless Legs Syndrome 07/28/2013 EILEEN DE LA VEGA MD Active Last Documented On 1 11:20AM ; [facility] Sleep apnea, unspecified 04/14/2013 EILEEN VINCENT MD Active Last Documented On 5 10:51AM ; [facility] Hypothyroidism, unspecified 08/02/2012 EILEEN VINCENT MD Active Last Documented On 5 10:49AM ; [facility] Gastro-esophageal reflux dis ease without esophagitis 08/02/2012 EILEEN VINCENT MD Active Last Documented On 5 10:37AM ; [facility] Fracture of Nasal Bones 08/02/2012 EILEEN VINCENT MD Active Last Documented On 2 11:16AM ; [facility] Hyperlipidemia, unspecified 08/02/2012 EILEEN VINCENT MD Active Last Documented On 5 10:38AM ; [facility] Essential (primary) hypertension 08/02/2012 MET LEONIDES VINCENT MD Active Last Documented On 5 10:38AM ; [facility] Irritable bowel syndrome without diarrhea 08/02/2012 EILEEN VINCENT MD Active Last Documented On 5 10:50AM ; [facility] Plan of Treatment No Plan of Treatment Recorded Assessments Includes: Assessments from this encounter Findings - Psychophysiological insomnia - Last Documented On 07/31/2022 12:03PM ; [facility] Medical Equipment - Implanted Devices Includes: Current Devices No Medical Equipment Recorded Medications Includes: Medications discussed during this encounter and other current Medications New / Renewed during this visit EILEEN VINCENT MD on 07/31/2022 Belsomra 10 MG Oral Tablet Provider: EILEEN VINCENT MD 30 day supply: 30 tablet, 1 refills Diagnosis: Psychophysiologic insomnia as directed - 1 tab at bedti me as needed for sleep Pharmacy: [facility], [address] - Last Documented On 3 11:11AM By Radha Vincent MD ; [facility] Current Medications (continue as prescribed) Mydayis 37.5 MG Oral Capsule Extended Release 24 Hour 12/07/2022 Provider: EILEEN VINCENT MD Diagnosis: Attention-defici t hyperactivity disorder, combined type 1 Capsule every morning Last Documented On 12/07/2022 4:33PM By Radha Vincent MD ; [facility] hydrOXYzine HCl 25 MG Oral Tablet 10/17/2022 Provide r: EILEEN VINCENT MD Diagnosis: 1 tab a day as needed only for itching/anxiety Last Documented On 10/17/2022 7:11PM By Radha Vincent MD ; [facility] Belsomra 10 MG Oral Tablet 09/27/2022 Provider: EILEEN VINCENT MD Diagnosis: Psychophysiologi c insomnia DIRECTED - ONE (1) TAB AT BEDTIME NEEDED FOR SLEEP Last Documented On 3 11:26AM By Radha Vincent MD ; [facility] Escitalopram Oxalate 20 MG Oral Tablet 09/25/2022 Provider: EILEEN VINCENT MD Diagnosis: Generalized anxi ety disorder TAKE ONE TABLET BY MOUTH DAILY Last Documented On 3 10:40AM By Radha Vincent MD ; [facility] lamoTRIgine 150 MG Oral Tablet 09/25/2022 Provider: EILEEN VINCENT MD Diagnosis: TAKE ONE TABLET BY MOUTH TWO TIMES A DAY Last Documented On 3 10:40AM By Radha Vincent MD ; [facility] rOPINIRole HCl 2 MG Oral Tablet 09/25/2022 Provider: EILEEN VINCENT MD Diagnosis: Restless legs sy ndrome DIRECTED - ONE (1) TAB AT FIVE (5) IN THE EVENING FOR RESTLESS LEGS Last Documented On 3 10:37AM By Radha Vincent MD ; [facility] buPROPion HCl ER (XL) 300 MG Oral Tablet Extended Release 24 Hour 07/03/2022 Provider: EILEEN VINCENT MD Diagnosis: Major depressive disorder, single episode, unspecified 1 tablet every morning Last Documented On 07/03/2022 1:56PM By Radha Vincent MD ; [facility] Alendronate Sodium 70 MG Oral Tablet 06/19/2022 Prov ider: WOLF MANJARREZ MD Diagnosis: 1 tab weekly Last Documented On 2 11:54AM By WISAM CASH ; [facility] traZODone HCl 50 MG Oral Tablet 02/07/2022 Provider: EILEEN VINCENT MD Diagnosis: TAKE ONE (1) OR TWO (2) TABL ETS BY MOUTH AT BEDTIME NEEDED SLEEP Last Documented On 2 10:04AM By Radha Vincent MD ; [facility] Levothyroxine Sodium 100 MCG Oral Capsule 04/14/2020 Provider: GOLDIE MONTES MD Diagnosis: 1 tab daily Last Documented On 0 11:36AM By WISAM CASH ; [facility] Pantoprazole Sodium 40 MG Or al Tablet Delayed Release 11/15/2019 Provider: MUSA DEJESUS Diagnosis: 1 tab daily Last Documented On 0 11:20AM By WISAM CASH ; [facility] Azelastine HCl 0.15% Nasal Solution 08/21/2019 Provi itz: GOLDIE MONTES MD Diagnosis: 2 sprays in each nostril twice a day Last Documented On 0 11:35AM By WISAM CASH ; [facility] Ferrous Sulfate 325 (65 Fe) MG Oral Tablet 04/10/2019 Provider: GOLDIE MONTES MD Diagnosis: 1 tab daily Last Documented On 04/10/2019 1:36PM By WISAM CASH ; [facility] Fluticasone Propionate 50MCG /ACT Nasal Suspension 07/25/2018 Provider: BETSY VALENCIA MD Diagnosis: 2 sprays in each nostril daily Last Documented On 11/28/2018 3:50PM By WISAM CASH ; [facility] Amlodipine Besy-Benazepril H Cl 5-10 MG Capsule, conventional 03/04/2016 Provider: BETSY VALENCIA MD Diagnosis: 1 daily Last Documented On 6 9:55AM By WILMER REDDY LPN ; [facility] Lipitor 20 MG Tablet 11/10/2015 Provider: JEFFERSON VALENCIA MD Diagnosis: 1 tablet every evening Last Documented On 6 10:25AM By WILMER REDDY LPN ; [facility] Dicyclomine HCl 10 MG Capsule, conventional 11/10/2015 Provider: BETSY VALENCIA MD Diagnosis: 1 capsule daily Last Documented On 6 10:22AM By WILMER REDDY LPN ; [facility] Aspirin 81 MG Tablet 11/10/2015 Provider: JEFFERSON VALENCIA MD Diagnosis: 1 tablet daily Last Documented On 6 10:23AM By WILMER REDDY LPN ; [facility] Lasix 20 MG Tablet 11/10/2015 Provider: BETSY VALENCIA MD Diagnosis: 1 tablet every morning Last Documented On 6 10:24AM By WILMER REDDY LPN ; [facility] Suspended Medications Trintellix 10 MG Oral Tablet 11/16/2022 Provider: EILEEN VINCENT MD Diagnosis: Major depressive disorder, single episode, unspecified TAKE ONE (1) TABLET BY MOUTH DAILY Last Documented On 3 12:52PM By Radha Vincent MD ; [facility] Namzaric 28-10 MG Oral Capsule Extended Release 24 Hour 10/17/2022 Provider: EILEEN VINCENT MD Diagnosis: Dem in oth dis c lassd elswhr,unsp sev,w/o beh/psych/mood/anx TAKE ONE CAPSULE BY MOUTH EV HELLEN MORNING Last Documented On 3 11:37AM By Radha Vincent MD ; [facility] busPIRone HCl 15 MG Oral Tablet 08/29/2022 Provider: EILEEN VINCENT MD Diagnosis: TAKE ONE TABLET BY MOUTH THREE TIMES a DAY Last Documented On 08/29/2022 3:43PM By Radha Vincent MD ; [facility] Past Medications on file hydrOXYzine HCl 25 MG Oral Tablet 10/08/2020 - 11/07/2020 Provider: EILEEN VINCENT MD Diagnosis: Generalized anxi ety disorder as directed - 1 tab a day as needed for agitation/anxiety Last Documented On 10/08/2020 2:47PM By Radha Vincent MD ; [facility] LaMICtal 150MG Oral Tablet 09/24/2018 - 09/27/2018 Provider: EILEEN VINCENT MD Diagnosis: Bipolar disorder , unspecified One tablet twice a day Last Documented On 09/24/2018 1:31PM By Radha Vincent MD ; [facility] Atorvastatin Calcium 20 MG OR TABS 01/28/2013 - 2012 Provider: Diagnosis: Last Documented On 3 3:46PM By TERRI CASH ; [facility] Medications Administered Includes: Administered Medications from [...] esolved Last Documented On 9 1:33PM ; [facility] Sulfa Antibiotics Allergy 08/02/2012 A ctive Last Documented On 4 11:08AM ; [facility] Note: Imported from external source. Neupro Allergy rash 10/23/2013 Active Last Documented On 4 11:08AM ; [facility] Note: Imported from external source. Encounters Encounter Provider Location Date Check-In Time Check-Out Time Diagnosis * PHONE CALL EILEEN VINCENT MD [facility] 022 10:30AM 11:59PM Psychophysiological Insomnia Insurance Includes: Active Insurance Policies Plan Name Member ID Group # Subscriber Relationship Effect kofi Dates 1 - [facility] [employer] [id number] EDITH DARBY Self 2 - [facility] [id number], INGRID J 0 - Unknown Clinical Notes Includes: Clinical Notes from this encounter No Clinical Notes Recorded
--- OUTSIDE RECORDS SUMMARY | 2024-09-04 14:21 | XMS_ITS | Clinical Summary ---
Author Organization [facility] Address [address] [place] [address] Phone Care Team Providers Care Calibration Specialist Name Role Phone RHIANNON DAI, EILEEN JJ [...] Active Last Documented On 8 6:05AM ; [facility] Adult Attention Deficit Hype ractivity Disorder 01/16/2017 EILEEN VINCENT MD Active Last Documented On 7 11:10AM ; [facility] Psychophysiological Insomnia 09/27/2016 EILEEN VINCENT MD Active Last Documented On 7 10:35AM ; [facility] Bipolar I Disorder 03/13/2015 EILEEN BREEN MD Active Last Documented On 5 10:21AM ; [facility] Dementia 02/10/2015 EILEEN VINCENT MD Ac tive Last Documented On 5 10:58AM ; [facility] Generalized Anxiety Disorder 02/10/2015 EILEEN VINCENT MD Active Last Documented On 5 10:22AM ; [facility] Restless Legs Syndrome 07/28/2013 EILEEN DE LA VEGA MD Inactive Last Documented On 5 10:42AM ; [facility] 07/28/2013 EILEEN DE LA VEGA MD Active Last Documented On 1 11:20AM ; [facility] Past Visits Onset Date Resolved Date Provider Condition Status Mild cognitive impairment of uncertain or unknown etiology 02/10/2015 EILEEN VINCENT MD Active Last Documented On 5 10:36AM ; [facility] Sleep apnea, unspecified 04/14/2013 EILEEN VINCENT MD Active Last Documented On 5 10:51AM ; [facility] Hypothyroidism, unspecified 08/02/2012 EILEEN VINCENT MD Active Last Documented On 5 10:49AM ; [facility] Gastro-esophageal reflux dis ease without esophagitis 08/02/2012 EILEEN VINCENT MD Active Last Documented On 5 10:37AM ; [facility] Fracture of Nasal Bones 08/02/2012 EILEEN VINCENT MD Active Last Documented On 2 11:16AM ; [facility] Hyperlipidemia, unspecified 08/02/2012 EILEEN VINCENT MD Active Last Documented On 5 10:38AM ; [facility] Essential (primary) hypertension 08/02/2012 MET LEONIDES VINCENT MD Active Last Documented On 5 10:38AM ; [facility] Irritable bowel syndrome without diarrhea 08/02/2012 EILEEN VINCENT MD Active Last Documented On 5 10:50AM ; [facility] Plan of Treatment Bipolar Depression - Lamictal 150 mg 1 tab twice a day - pt denied SJS rash with this so far Depression - Wellbutrin XL 300 mg 1 tab daily, add Trintellix 10 mg a day (07/17/22) Generalized Anxiety Disorder - Buspar 15 mg [...] mg 1 tab every night at bedtime, added Quviviq 50 mg at hs prn sleep -- 07/17/22 added, encouraged good sleep hygiene habits - Last Documented On 07/17/2022 12:56PM ; [facility] Education and Decision Aids were provided during visit for: Patient education about medi cation ---Education was given on medication(s) and diagnosis. I reviewed the risks, benefits and side effects of patient's medications Last Documented On 11:24AM ; [facility] Discussed calming techniques such as breathing exercises and other relaxation techniques Last Documented On 11:24AM ; [facility] Counseling for nutrition/teresa ght management provided Last Documented On 11:45AM ; [facility] Discussed good sleep hygiene habits Last Documented On 11:45AM ; [facility] I recommended cognitive exer cises such as reading and/or word search puzzles, etc.. Last Documented On 12:49PM ; [facility] Assessments Includes: Assessments from this encounter Findings - Restless legs syndrome - Last Documented On 07/17/2022 12:56PM ; [facility] - Dementia - Last Documented On 07/17/2022 12:56PM ; [facility] - Bipolar I disorder - Last Documented On 07/17/2022 12:56PM ; [facility] - Depressive disorder - Last Documented On 07/17/2022 12:56PM ; [facility] - Psychophysiological insomnia - Last Documented On 07/17/2022 12:56PM ; [facility] - Generalized anxiety disorder - Last Documented On 07/17/2022 12:56PM ; [facility] - Adult attention deficit hyperactivity disorder - Last Documented On 07/17/2022 12:56PM ; [facility] Instructions Includes: Instructions from this encounter Education and Decision Aids were provided during visit for: Patient education about medi cation ---Education was given on medication(s) and diagnosis. I reviewed the risks, benefits and side effects of patient's medications Last Documented On 11:24AM ; [facility] Discussed calming techniques such as breathing exercises and other relaxation techniques Last Documented On 2 11:24AM ; [facility] Counseling for nutrition/teresa ght management provided Last Documented On 2 11:45AM ; [facility] Discussed good sleep hygiene habits Last Documented On 2 11:45AM ; [facility] I recommended cognitive exer cises such as reading and/or word search puzzles, etc.. Last Documented On 2 12:49PM ; [facility] Medical Equipment - Implanted Devices Includes: Current Devices No Medical Equipment Recorded Medications Includes: Medications discussed during this encounter and other current Medications Discontinued / Stopped on this date EILEEN VINCENT MD on 04/11/2022 Quviviq 50 MG Oral Tablet Provider: EILEEN VINCENT MD Diagnosis: Psychophysiologi c insomnia Last Documented On 12:18PM By Radha Vincent MD ; [facility] hydrOXYzine HCl 25 MG Oral Tablet Provider: EILEEN VINCENT MD Diagnosis: Generalized anxi ety disorder Last Documented On 2 11:42AM By WISAM CASH ; [facility] hydrOXYzine HCl 25 MG Oral Tablet Provide r: Diagnosis: Generalized anxi ety disorder Last Documented On 2 11:42AM By WISAM CASH ; [facility] traZODone HCl 50 MG Oral Tablet Provider: EILEEN VINCENT MD Diagnosis: Psychophysiologi c insomnia Last Documented On 2 11:42AM By WISAM CASH ; [facility] traZODone HCl 50 MG Oral Tablet Provider: Diagnosis: Psychophysiologi c insomnia Last Documented On 2 11:42AM By WISAM CASH ; [facility] Calcium 600+D 600-400 MG-UNIT Tablet Prov ider: BETSY CARRIZALES MD Diagnosis: Last Documented On 2 11:34AM By WISAM CASH ; [facility] New / Renewed during this visit EILEEN VINCENT MD on 07/17/2022 Quviviq 50 MG Oral Tablet Provider: EILEEN VINCENT MD 30 day supply: 30 tablet, 3 refills Diagnosis: Psychophysiologic insomnia One tablet at bed time Pharmacy: [facility] [place] [facility] - [address] [place] [address] [address], [facility], [address] - Last Documented On 3 10:52AM By WISAM CASH ; [facility] Trintellix 10 MG Oral Tablet Provider: EILEEN VINCENT MD 30 day supply: 30 tablet, 3 refills Diagnosis: Major depressive disorder, single episode, unspecified One tablet daily [facility] - [address] [place] [address], [id number] - Last Documented On 3 12:52PM By Radha Vincent MD ; [facility] Current Medications (continue as prescribed) Mydayis 37.5 MG Oral Capsule Extended Release 24 Hour 12/07/2022 Provider: EILEEN VINCENT MD Diagnosis: Attention-defici t hyperactivity disorder, combined type 1 Capsule every morning Last Documented On 12/07/2022 4:33PM By Radha Vincent MD ; [facility] hydrOXYzine HCl 25 MG Oral Tablet 10/17/2022 Provide r: EILEEN VINCENT MD Diagnosis: 1 tab a day as needed only for itching/anxiety Last Documented On 10/17/2022 7:11PM By Radha Vincent MD ; [facility] Belsomra 10 MG Oral Tablet 09/27/2022 Provider: EILEEN VINCENT MD Diagnosis: Psychophysiologi c insomnia DIRECTED - ONE (1) TAB AT BEDTIME NEEDED FOR SLEEP Last Documented On 3 11:26AM By Radha Vincent MD ; [facility] Escitalopram Oxalate 20 MG Oral Tablet 09/25/2022 Provider: EILEEN VINCENT MD Diagnosis: Generalized anxi ety disorder TAKE ONE TABLET BY MOUTH DAILY Last Documented On 3 10:40AM By Radha Vincent MD ; [facility] lamoTRIgine 150 MG Oral Tablet 09/25/2022 Provider: EILEEN VINCENT MD Diagnosis: TAKE ONE TABLET BY MOUTH TWO TIMES A DAY Last Documented On 3 10:40AM By Radha Vincent MD ; [facility] rOPINIRole HCl 2 MG Oral Tablet 09/25/2022 Provider: EILEEN VINCENT MD Diagnosis: Restless legs sy ndrome DIRECTED - ONE (1) TAB AT FIVE (5) IN THE EVENING FOR RESTLESS LEGS Last Documented On 3 10:37AM By Radha Vincent MD ; [facility] buPROPion HCl ER (XL) 300 MG Oral Tablet Extended Release 24 Hour 07/03/2022 Provider: EILEEN VINCENT MD Diagnosis: Major depressive disorder, single episode, unspecified 1 tablet every morning Last Documented On 07/03/2022 1:56PM By Radha Vincent MD ; [facility] Alendronate Sodium 70 MG Oral Tablet 06/19/2022 Prov ider: WOLF MITCHELL MD Diagnosis: 1 tab weekly Last Documented On 2 11:54AM By WISAM CASH ; [facility] traZODone HCl 50 MG Oral Tablet 02/07/2022 Provider: EILEEN VINCENT MD Diagnosis: TAKE ONE (1) OR TWO (2) TABL ETS BY MOUTH AT BEDTIME NEEDED SLEEP Last Documented On 2 10:04AM By Radha Vincent MD ; [facility] Levothyroxine Sodium 100 MCG Oral Capsule 04/14/2020 Provider: GOLDIE KIDD MD Diagnosis: 1 tab daily Last Documented On 0 11:36AM By WISAM CASH ; [facility] Pantoprazole Sodium 40 MG Or al Tablet Delayed Release 11/15/2019 Provider: SIERRA MCGARRY Diagnosis: 1 tab daily Last Documented On 0 11:20AM By WISAM CASH ; [facility] Azelastine HCl 0.15% Nasal Solution 08/21/2019 Provi itz: GOLDIE KIDD MD Diagnosis: 2 sprays in each nostril twice a day Last Documented On 0 11:35AM By WISAM CASH ; [facility] Ferrous Sulfate 325 (65 Fe) MG Oral Tablet 04/10/2019 Provider: GOLDIE KIDD MD Diagnosis: 1 tab daily Last Documented On 04/10/2019 1:36PM By WISAM CASH ; [facility] Fluticasone Propionate 50MCG /ACT Nasal Suspension 07/25/2018 Provider: BETSY CARRIZALES MD Diagnosis: 2 sprays in each nostril daily Last Documented On 11/28/2018 3:50PM By WISAM CASH ; [facility] Amlodipine Besy-Benazepril H Cl 5-10 MG Capsule, conventional 03/04/2016 Provider: BETSY CARRIZALES MD Diagnosis: 1 daily Last Documented On 6 9:55AM By WILMER REDDY LPN ; [facility] Lipitor 20 MG Tablet 11/10/2015 Provider: JEFFERSON CARRIZALES MD Diagnosis: 1 tablet every evening Last Documented On 6 10:25AM By WILMER REDDY LPN ; [facility] Dicyclomine HCl 10 MG Capsule, conventional 11/10/2015 Provider: BETSY CARRIZALES MD Diagnosis: 1 capsule daily Last Documented On 6 10:22AM By WILMER REDDY LPN ; [facility] Aspirin 81 MG Tablet 11/10/2015 Provider: JEFFERSON CARRIZALES MD Diagnosis: 1 tablet daily Last Documented On 6 10:23AM By WILMER REDDY LPN ; [facility] Lasix 20 MG Tablet 11/10/2015 Provider: BETSY CARRIZALES MD Diagnosis: 1 tablet every morning Last Documented On 6 10:24AM By WILMER REDDY LPN ; [facility] Suspended Medications Trintellix 10 MG Oral Tablet 11/16/2022 Provider: EILEEN VINCENT MD Diagnosis: Major depressive disorder, single episode, unspecified TAKE ONE (1) TABLET BY MOUTH DAILY Last Documented On 3 12:52PM By Radha Vincent MD ; [facility] Namzaric 28-10 MG Oral Capsule Extended Release 24 Hour 10/17/2022 Provider: EILEEN VINCENT MD Diagnosis: Dem in oth dis c lassd elswhr,unsp sev,w/o beh/psych/mood/anx TAKE ONE CAPSULE BY MOUTH EV HELLEN MORNING Last Documented On 3 11:37AM By Radha Vincent MD ; [facility] busPIRone HCl 15 MG Oral Tablet 08/29/2022 Provider: EILEEN VINCENT MD Diagnosis: TAKE ONE TABLET BY MOUTH THREE TIMES a DAY Last Documented On 08/29/2022 3:43PM By Radha Vincent MD ; [facility] Past Medications on file hydrOXYzine HCl 25 MG Oral Tablet 10/08/2020 - 11/07/2020 Provider: EILEEN VINCENT MD Diagnosis: Generalized anxi ety disorder as directed - 1 tab a day as needed for agitation/anxiety Last Documented On 10/08/2020 2:47PM By Radha Vincent MD ; [facility] LaMICtal 150MG Oral Tablet 09/24/2018 - 09/27/2018 Provider: EILEEN VINCENT MD Diagnosis: Bipolar disorder , unspecified One tablet twice a day Last Documented On 09/24/2018 1:31PM By Radha Vincent MD ; [facility] Atorvastatin Calcium 20 MG OR TABS 01/28/2013 - 2012 Provider: Diagnosis: Last Documented On 3 3:46PM By TERRI CASH ; [facility] Medications Administered Includes: Administered Medications from this encounter No Administered Medications Recorded Vital Signs Includes: Vital Signs from this encounter Vital Name 07/17/2022 11:51A Blood Pressure Sitting L 145/78 BP Cuff Size Regular Pulse Rate-Sitting (bpm) 81 Pulse Rhythm Regular Height (in) 63 Weight (lb) 165 Body Mass Index 29.2 Body Surface Area 1.8 Note: self reported vitals Last Documented: On 07/17/2022 11:52A M ; [facility] Results Includes: Results discussed during this encounter No Results Recorded For Specified Dates History of Present Illness Includes: History of Present Illness from this encounter HPI EDITH DARBY is a 72 year old female. - Allergy list reviewed - Past medical history reviewed - Medication list reviewed Pt has been somewhat feeling depressed. She said that there is a voice in her head that is telling her that she needs to go to [employer]ae[employer]. At times it is bothersome and nagging her. She did not think it is a hallucination but at times she feels she is creating it. She went ahead and went to [facility]aeism and seemed to have calmed down but then at times it keeps creeping back on her. She tries to distract herself with other tasks. She was reminded to do her breathing exercises/meditation. She can get anxious at times but no panic attacks. She thinks the Wellbutrin is no longer helping much so I recommended adding Trintellix 10 mg a day first to see if she tolerates it and to see if it is working for her before tapering down the Wellbutrin. Pt denied having any mood swings. Pt has not been as irritable. Pt has not been as motivated in general in doing daily tasks. Sleep has been interrupted. She never got the Quviviq so will send through [facility]. Pt has not been napping/sleeping too much during the daytime. Pt occ gets tired. Appetite is good. Pt has not been feeling as bad about self. Pt is able to focus and concentrate for the most part. Pt denied having any psychomotor restlessness. Pt denied suicidal thoughts. Pt denied having any delusions/hallucinations. However, at times she gets paranoid when out in public. MENTAL STATUS EXAM: Sensorium - alert, oriented to name, place, and time Attitude - cooperative Gait - ambulatory Sleep - difficulty staying asleep at times Interest/Energy/Motivation - some days tired and not as motivated Guilt/Worthlessness - absent Concentration/Attention Span - able to focus and concentrate better with Mydayis Memory Recall - at times forgetful Appetite - good - on 04/05/22 pt weighed 166 lbs and on 07/17/22 she weighed 165 lbs so she lost 1 lb Suicidal Thoughts - absent Homicidal Thoughts - absent Delusions - absent Hallucinations - absent but at times may hear something in her head to go to mandaeism Appearance - casually groomed Motor Behavior - calm Eye Contact - intermittent Speech - fluent Mood - at times down Affect - occ anxious Thought Process - coherent Insight and Judgment - intact Social History Description Last Updated Daily coffee consumption -- no coffee, 2 glasses of unsweetened tea daily 08/21/2019 Last Documented On 2 11:24AM ; [facility] She was born in [place], [place]. She was raised in [place], [place] and [place], [place]. She was close to her parents while growing up and they were supportive of her. 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 problems 11/08/2012 Last Documented On 11:24AM ; [facility] Not using alcohol 08/02/2012 Last Documented On 11:24AM ; [facility] Not using drugs (Illicit) 08/02/2012 Last Documented On 11:24AM ; [facility] Smoking status : Never smoked 08/02/2012 Last Documented On 11:24AM ; [facility] Procedures and Surgical History Includes: Procedures from this encounter Procedures Code Diagnosis Performing Provider Service L ocation Service Date education and instructions Last Documented On 11:24AM ; [facility] dangerousness assessment: suicide risk -not suic idal 3085F Last Documented On 11:24AM ; [facility] use of tobacco assessment performed 1000F Last Documented On 11:24AM ; [facility] patient screened for future fall risk - 13 3288F Last Documented On 11:24AM ; [facility] review of medications documented 1160F Last Documented On 11:24AM ; [facility] screening for adult depressi on: impression and score - please see above treatment and PHQ score Last Documented On 11:24AM ; [facility] standardized depression screening: posit kofi for symptoms Last Documented On 11:24AM ; [facility] encouragement to exercise Last Documented On 11:24AM ; [facility] Counseling on new medication : I discussed the risks, benefits and side effects of Trintellix . 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 04/201811/28/2018 Last Documented On 2 11:24AM ; [facility] History of hallux valgus (bunion) correc tion -- 08/01/17 09/07/2017 Last Documented On 2 11:24AM ; [facility] History of excision left foot bunion-- 2 012 01/28/2015 Last Documented On 2 11:24AM ; [facility] History of tubal ligation 01/28/2015 Last Documented On 2 11:24AM ; [facility] History of hysterectomy 01/28/2015 Last Documented On 2 11:24AM ; [facility] History of cholecystectomy 08/02/2012 Last Documented On 2 11:24AM ; [facility] Medical History Includes: Medical History addressed during this encounter Description Last Updated History of bronchitis - give n Zpak 250 mg and Albuterol HFA 90 mcg inhaler on 02/23/22 and given Methylprednisolone Dosepak 4 mg on 02/18/22 10/17/2022 Last Documented On 2 11:24AM ; [facility] History of obstructive sleep apnea -- sleep study done 05/22/13 at [facility] under Dr. Cutler. She was wearing a dental device purchased from [facility] dentistry. Patient does not wear her dental device. She uses O2 at 2 liters 10/17/2022 Last Documented On 2 11:24AM ; [facility] History of fall risk -- pt [...] going down while she was at the [employer]; she had a nosebleed and a sore right knee; she did not go to the Dr. or ER 07/17/2022 Last Documented On 2 12:56PM ; [facility] Primary Care Provider: Dr. Angela Carrizales ~Dr. Sierra Mcgarry -- 3D Designer ~Dr. Naveed Lala, DPM -- Motor Winder ~Dr. Wolf Mitchell -- Burglar Alarm Assembler ~Dr. Keanu Mitchell, NICKY -- Dentist ~Dr. Joshua Hanson, OD -- Manager Fine Dining 07/17/2022 Last Documented On 2 12:56PM ; [facility] History of hammer toe - 2nd toe of left foot straightened by Dr. Hiro Arthur 11/05/20 -- given Keflex 500 mg 04/05/2022 Last Documented On 2 11:24AM ; [facility] History of coronavirus 2019- nCoV vaccine - Pfizer #1 11/02/20 #2 03/23/21 -- as of 07/29/21 no booster yet 07/29/2021 Last Documented On 2 11:24AM ; [facility] History of vaginal candidiasis - given F lagyl 500 mg 11/06/20 12/20/2020 Last Documented On 2 11:24AM ; [facility] History of colonoscopy - 11/202012/21/19 Last Documented On 2 11:24AM ; [facility] History of hearing loss - wears bilatera l hearing aids 04/10/2019 Last Documented On 2 11:24AM ; [facility] History of iron deficiency - started on Ferrous Sulfate 325 mg [address] Goldie Kidd in 01/201904/10/2019 Last Documented On 2 11:24AM ; [facility] History of head injury /brain trauma Last Documented On 2 11:24AM ; [facility] History of sprain of the left foot 01/03 Last Documented On 2 11:24AM ; [facility] History of tinea pedis 08/01/2016 Last Documented On 2 11:24AM ; [facility] History of Epidural Steroid Injection -- 03/08/[address] Yi for back pain 03/13/2016 Last Documented On 2 11:24AM ; [facility] History of irritable bowel syndrome 01/13 Last Documented On 2 11:24AM ; [facility] History of esophageal reflux 08/02/2012 Last Documented On 2 11:24AM ; [facility] History of hypothyroidism 08/02/2012 Last Documented On 2 11:24AM ; [facility] History of hyperlipidemia 08/02/2012 Last Documented On 2 11:24AM ; [facility] History of hypertension 08/02/2012 Last Documented On 2 11:24AM ; [facility] Family History Includes: Family History addressed during this encounter Description Last Updated Paternal history of depression -- father 10/15/2014 Last Documented On 2 11:24AM ; [facility] Maternal history of depression -- mother 10/15/2014 Last Documented On 2 11:24AM ; [facility] Sororal history of depression -- sister 10/15/2014 Last Documented On 2 11:24AM ; [facility] Maternal history of anxiety disorder NOS -- mother 10/15/2014 Last Documented On 2 11:24AM ; [facility] Paternal history of anxiety disorder NOS -- father 10/15/2014 Last Documented On 2 11:24AM ; [facility] Review of Systems Includes: Review of Systems from this encounter Systemic: Feeling poorly (malaise) - occasionally tired. No fever, no chills, and no night sweats. Head: No headache. Sinus pain. Neck: No neck pain and no neck stiffness. Eyes: Vision problems. No itching of the eyes and no eye pain. Otolaryngeal: Hearing loss - wears hearing aids. No earache, no nasal discharge, no hoarseness, and no sore throat. Cardiovascular: No chest pain or discomfort, no palpitations, and the heart rate was not fast. Pulmonary: Dyspnea - occasionally and cough. Gastrointestinal: Heartburn. No nausea and no vomiting. [...] Includes: Mental Status from this encounter Description Depressive disorder Functional Status Includes: Functional Status from this encounter No Functional Status Recorded Physical Exam Includes: Physical Exam from this encounter Allergies Includes: Active Allergies Substance Type Reaction Onset Date Resolved Date Statu s Sulfa Antibiotics Allergy 08/02/2012 R esolved Last Documented On 9 1:33PM ; [facility] Sulfa Antibiotics Allergy 08/02/2012 A ctive Last Documented On 4 11:08AM ; [facility] Note: Imported from external source. Neupro Allergy rash 10/23/2013 Active Last Documented On 4 11:08AM ; [facility] Note: Imported from external source. Encounters Encounter Provider Location Date Check-In Time Check-Out Time Diagnosis [facility] EILEEN VINCENT MD [facility] 07/17/20 22 11:24AM 11:59PM Generalized Anxiety Disorder,Restless Legs Syndrome,Dementia ,Psychophysiologi maday Insomnia,Bipolar I Disorder,Adult Attention Deficit Hyperactivity Disorder,Depressi ve Disorder, Nos Insurance Includes: Active Insurance Policies Plan Name Member ID Group # Subscriber Relationship Effect kofi Dates 1 - [facility] [id number] EDITH DARBY Self 2 - [facility] [id number] INGRID DARBY J 0 - Unknown Clinical Notes Includes: Clinical Notes from this encounter No Clinical Notes Recorded
--- OUTSIDE RECORDS SUMMARY | 2024-09-04 14:22 | XMS_ITS | CONTINUITY OF CARE DOCUMENT ---
Author Name shi osullivan Address Unknown Organization [facility] Address [id number] [place] [address] [address] [place] [address] Phone [phone] Care Team Providers Care Technical Support Agent Name Role Phone shi osullivan Unavailable Unavailable
--- OUTSIDE RECORDS SUMMARY | 2024-09-04 14:22 | XMS_ITS ---
Care Plan - [facility] Created on: September 04, 2024 EDITH DARBY : 1950 Sex: Female Author Organization [facility] Address [address] [place] [address] Phone Care Team Providers Care Catering Truck Driver Name Role Phone RHIANNON DAI, EILEEN JJ Unavailable [phone]
--- OUTSIDE RECORDS SUMMARY | 2024-09-04 14:22 | XMS_ITS | Clinical Summary ---
Author Organization [facility] Address [address] [place] [address] Phone Care Team Providers Care Silo Filler Name Role Phone RHIANNON DAI, EILEEN JJ Unavailable [phone] Reason for Visit and Chief Complaint * PHONE CALL Problems Includes: Problems addressed during this encounter and other active Problems Current Visit Onset Date Resolved Date Provider Conditio n Status Adult Attention Deficit Hyperactivity Disorder 01/16/2017 Active Last Documented On 3 5:50PM ; [facility] Past Visits Onset Date Resolved Date Provider Condition Status Depressive Disorder, Nos 04/13/2018 Active Last Documented On 3 5:51PM ; [facility] Psychophysiological Insomnia 09/27/2016 Active Last Documented On 3 5:50PM ; [facility] Bipolar I Disorder 03/13/2015 Active Last Documented On 3 5:48PM ; [facility] Dementia 02/10/2015 Active Last Documented On 3 5:48PM ; [facility] Generalized Anxiety Disorder 02/10/2015 Active Last Documented On 3 5:48PM ; [facility] Mild Cognitive Impairment 02/10/2015 EILEEN VINCENT MD Active Last Documented On 3 5:01PM ; [facility] Restless Legs Syndrome 07/28/2013 Ac tive Last Documented On 3 5:48PM ; [facility] 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 EILEEN DE LA VEGA MD Active Last Documented On 3 5:01PM ; [facility] Hypothyroidism, unspecified 08/02/2012 Active Last Documented On 3 5:48PM ; [facility] Gastro-esophageal reflux disease without esophagitis 08/02 Active Last Documented On 3 5:48PM ; [facility] Fracture of Nasal Bones 08/02/2012 A ctive Last Documented On 3 5:42PM ; [facility] Hyperlipidemia, unspecified 08/02/2012 Active Last Documented On 3 5:48PM ; [facility] Essential (primary) hypertension 08/02/2012 Active Last Documented On 3 5:48PM ; [facility] Irritable bowel syndrome without diarrhea 08/02/2012 Active Last Documented On 3 5:48PM ; [facility] Plan of Treatment Future Appointments Date Time Location [facility] ESTABLISHED 12/24/2024 11:00AM [facility]LINDSAY VINCENT MD Last Documented On 5 4:04PM ; [facility] Assessments Includes: Assessments from this encounter Findings - Adult attention deficit hyperactivity disorder - Last Documented On 10/31/2023 11:49AM ; [facility] Medical Equipment - Implanted Devices Includes: Current Devices No Medical Equipment Recorded Medications Includes: Medications discussed during this encounter and other current Medications Discontinued / Stopped on this date EILEEN VINCENT MD on 09/26/2023 Mydayis 37.5 MG Oral Capsule Extended Release 24 Hour Provider: EILEEN VINCENT MD Diagnosis: Attention-defici t hyperactivity disorder, combined type Last Documented On 10/31/2023 11:48AM By Radha Vincent MD ; [facility] New / Renewed during this visit EILEEN VINCENT MD on 10/31/2023 Mydayis 37.5 MG Oral Capsule Extended Release 24 Hour Provider: EILEEN VINCENT MD 30 day supply: 30 capsule, 0 refills Diagnosis: Attention-deficit hyperactivity disorder, combined type TAKE ONE (1) CAPSULE BY MOUT H EACH MORNING Pharmacy: [facility], [address] - Last Documented On 11/27/2023 5:06PM By Radha Vincent MD ; [facility] Current Medications (continue as prescribed) busPIRone HCl 15 MG Oral Tablet 01/16/2024 Provider: EILEEN VINCENT MD Diagnosis: TAKE ONE TABLET BY MOUTH THREE TIMES a DAY Last Documented On 01/16/2024 10:52AM By Radha Vincent MD ; [facility] Mydayis 37.5 MG Oral Capsule Extended Release 24 Hour 01/01/2024 Provider: EILEEN VINCENT MD Diagnosis: Attention-defici t hyperactivity disorder, combined type TAKE ONE (1) CAPSULE BY MOUT H EACH MORNING Last Documented On 01/01/2024 5:57PM By Radha Vincent MD ; [facility] rOPINIRole HCl 2 MG Oral Tablet 12/19/2023 Provider: EILEEN VINCENT MD Diagnosis: Restless legs sy ndrome as directed 1 tablet at 5 pm in the evening for restless legs Last Documented On 12/19/2023 11:49AM By Radha Vincent MD ; [facility] Memantine HCl 5 MG Oral Tablet 12/12/2023 Provider: EILEEN VINCENT MD Diagnosis: Dem in oth dis c lassd elswhr,unsp sev,w/o beh/psych/mood/anx One tablet daily Last Documented On 12/12/2023 4:50PM By Radha Vincent MD ; [facility] rOPINIRole HCl 2 MG Oral Tablet 12/10/2023 Provider: VENTURA GERAROD Diagnosis: Last Documented On 12/19/2023 11:45AM By Radha Vincent MD ; [facility] Namzaric 28-10 MG Oral Capsule Extended Release 24 Hour 11/26/2023 Provider: EILEEN VINCENT MD Diagnosis: Dem in oth dis c lassd elswhr,unsp sev,w/o beh/psych/mood/anx TAKE ONE CAPSULE BY MOUTH EV HELLEN MORNING Last Documented On 11/26/2023 1:10PM By Radha Vincent MD ; [facility] Trintellix 10 MG Oral Tablet 11/13/2023 Provider: EILEEN VINCENT MD Diagnosis: Major depressive disorder, single episode, unspecified TAKE ONE (1) TABLET BY MOUTH DAILY Last Documented On 11/13/2023 10:08AM By Radha Vincent MD ; [facility] Belsomra 10 MG Oral Tablet 11/01/2023 Provider: EILEEN VINCENT MD Diagnosis: Psychophysiologi c insomnia DIRECTED 1 TABLET AT BEDT ELEAZAR NEEDED FOR SLEEP Last Documented On 11/01/2023 4:16PM By Radha Vincent MD ; [facility] buPROPion HCl ER (XL) 300 MG Oral Tablet Extended Release 24 Hour 08/24/2023 Provider: EILEEN VINCENT MD Diagnosis: Major depressive disorder, single episode, unspecified 1 tablet every morning Last Documented On 08/24/2023 10:15AM By Radha Vincent MD ; [facility] lamoTRIgine 150 MG Oral Tablet 08/24/2023 Provider: EILEEN VINCENT MD Diagnosis: TAKE ONE TABLET BY MOUTH TWO TIMES A DAY Last Documented On 08/24/2023 10:26AM By Radha Vincent MD ; [facility] Escitalopram Oxalate 20 MG Oral Tablet 08/24/2023 Provider: EILEEN VINCENT MD Diagnosis: Generalized anxi ety disorder TAKE ONE TABLET BY MOUTH DAILY Last Documented On 08/24/2023 10:16AM By Radha Vincent MD ; [facility] Ferrous Sulfate 325 (65 Fe) MG Oral Tablet 04/18/2023 Provider: Diagnosis: 1 tab every other day Last Documented On 04/18/2023 10:30AM By WISAM CASH ; [facility] Belsomra 10 MG Oral Tablet 03/19/2023 Provider: Diagnosis: Psychophysiologi c insomnia 1 tablet at bedtime as needed for sleep Last Documented On 03/19/2023 2:13PM By LETI WILSON ; [facility] Belsomra 10 MG OR TABS 09/27/2022 Provider: CISCO VINCENT MD Diagnosis: Psychophysiologi c insomnia DIRECTED - ONE (1) TAB AT BEDTIME NEEDED FOR SLEEP Last Documented On 12/09/2022 5:29PM By Radha Vincent MD ; [facility] Alendronate Sodium 70 MG OR TABS 06/19/2022 Provider : Diagnosis: 1 tab weekly Last Documented On 12/09/2022 5:29PM By WISAM CASH ; [facility] Levothyroxine Sodium 100 MCG OR CAPS 04/14/2020 Prov ider: Diagnosis: 1 tab daily Last Documented On 12/09/2022 5:29PM By WISAM CASH ; [facility] Pantoprazole Sodium 40 MG OR TBEC 11/15/2019 Provide r: Diagnosis: 1 tab daily Last Documented On 12/09/2022 5:29PM By WISAM CASH ; [facility] Azelastine HCl 0.15% NA SOLN 08/21/2019 Provider: Diagnosis: 2 sprays in each nostril twice a day Last Documented On 12/09/2022 5:29PM By WISAM CASH ; [facility] Fluticasone Propionate 50 MCG/ACT NA SUSP 07/25/2018 Provider: Diagnosis: 2 sprays in each nostril daily Last Documented On 12/09/2022 5:29PM By WISAM CASH ; [facility] amLODIPine Besy-Benazepril HCl 5-10 MG OR CAPS 016 Provider: Diagnosis: 1 daily Last Documented On 12/09/2022 5:29PM By WILMER REDDY LPN ; [facility] Lipitor 20 MG OR TABS 11/10/2015 Provider: Diagnosis: 1 tablet every evening Last Documented On 12/09/2022 5:29PM By WILMER REDDY LPN ; [facility] Lasix 20 MG OR TABS 11/10/2015 Provider: Diagnosis: 1 tablet every morning Last Documented On 12/09/2022 5:29PM By WILMER REDDY LPN ; [facility] Aspirin 81 MG OR TABS 11/10/2015 Provider: Diagnosis: 1 tablet daily Last Documented On 12/09/2022 5:29PM By WILMER REDDY LPN ; [facility] Past Medications on file Dicyclomine HCl 10 MG Oral Capsule 09/14/2023 - 2023 Provider: Diagnosis: 1 capsule bid Last Documented On 09/14/2023 11:16AM By WISAM CASH ; [facility] hydrOXYzine HCl 25 MG Oral Tablet 04/09/2023 - 06/08/2023 Provider: EILEEN CONNORS MD Diagnosis: 1 TAB a DAY NEEDED ONLY FOR ITCHING/ANXIETY Last Documented On 04/09/2023 12:08PM By Radha Vincent MD ; [facility] hydrOXYzine HCl 25 MG OR TABS 10/08/2020 - 11/07/2020 Provider: EILEEN VINCENT MD Diagnosis: Generalized anxi ety disorder as directed - 1 tab a day as needed for agitation/anxiety Last Documented On 12/09/2022 5:29PM By Radha Vincent MD ; [facility] LaMICtal 150 MG OR TABS 09/24/2018 - 09/27/2018 Provider: EILEEN VINCENT MD Diagnosis: Bipolar disorder , unspecified One tablet twice a day Last Documented On 12/09/2022 5:29PM By Radha Vincent MD ; [facility] Atorvastatin Calcium 20 MG OR TABS 01/28/2013 - 2012 Provider: Diagnosis: Last Documented On 12/09/2022 5:29PM By TERRI CASH ; [facility] Medications Administered Includes: Administered Medications from this [...] esolved Last Documented On 9 1:33PM ; [facility] Sulfa Antibiotics Allergy 08/02/2012 A ctive Last Documented On 4 11:08AM ; [facility] Note: Imported from external source. Neupro Allergy rash 10/23/2013 Active Last Documented On 4 11:08AM ; [facility] Note: Imported from external source. Encounters Encounter Provider Location Date Check-In Time Check-Out Time Diagnosis * PHONE CALL EILEEN VINCENT MD [facility] 10/31/19 24 11:43AM 11:59PM Adult Attention Deficit Hyperactivity Disorder Insurance Includes: Active Insurance Policies Plan Name Member ID Group # Subscriber Relationship Effect kofi Dates 1 - [employer] [id number] EDITH DARBY Self 2 - [facility] [id number] INGRID DARBY 0 - Unknown Clinical Notes Includes: Clinical Notes from this encounter * Progress note Date Encounter Last Documented by 10/31/2023 * PHONE CALL Last documented on 10/31/2023; 11:49 AM, EILEEN VINCENT MD; [facility] Active Problems & Conditions - Adult Attention Deficit Hyperactivity Disorder - Bipolar I Disorder - Dementia - Depressive Disorder, Nos - Essential (primary) hypertension - Fracture of Nasal Bones - Gastro-esophageal reflux disease without esophagitis - Generalized Anxiety Disorder - Hyperlipidemia, unspecified - Hypothyroidism, unspecified - Irritable bowel syndrome without diarrhea - Mild Cognitive Impairment - Nonorganic Sleep Apnea - Psychophysiological Insomnia - Restless Legs Syndrome Chief Complaint Phone Call - Chief Concern: reason for call: Patient calling. 1. Update -- since stopping Namzaric she said she is doing better and diarrhea is less. 2. She is asking for refill of Mydayis to be sent to [facility]. pt phone # for return call: [phone] date/initials: 10/31/2023 bk Current Medication - Alendronate Sodium 70 MG Tablet as directed 1 tab weekly, 84 days, 0 refills - amLODIPine Besy-Benazepril HCl 5-10 MG Capsule 1 capsule daily 1 daily, 30 days, 0 refills - Aspirin 81 MG Tablet One tablet daily 1 tablet daily, 30 days, 0 refills - Azelastine HCl 0.15% Solution as directed 2 sprays in each nostril twice a day, 0 days, 0 refills - Belsomra 10 MG Tablet DIRECTED - ONE (1) TAB AT BEDTIME NEEDED FOR SLEEP, 30 days, 3 refills - Belsomra 10 MG Oral Tablet as directed 1 tablet at bedtime as needed for sleep, 30 days, 3 refills - buPROPion HCl ER (XL) 300 MG Oral Tablet Extended Release 24 Hour 1 tablet every morning, 90 days, 3 refills - busPIRone HCl 15 MG Tablet TAKE ONE TABLET BY MOUTH THREE TIMES a DAY , 30 days, 11 refills - Escitalopram Oxalate 20 MG Oral Tablet TAKE ONE TABLET BY MOUTH DAILY, 90 days, 3 refills - Ferrous Sulfate 325 (65 Fe) MG Oral Tablet 1 tab every other day, 0 days, 0 refills - Fluticasone Propionate 50 MCG/ACT Suspension as directed 2 sprays in each nostril daily, 90 days, 0 refills - Focalin 10 MG Oral Tablet 1 tablet every morning, 30 days, 0 refills - lamoTRIgine 150 MG Oral Tablet TAKE ONE TABLET BY MOUTH TWO TIMES A DAY, 90 days, 3 refills - Lasix 20 MG Tablet One tablet daily 1 tablet every morning, 30 days, 0 refills - Levothyroxine Sodium 100 MCG Capsule 1 tab daily, 90 days, 0 refills - Lipitor 20 MG Tablet One tablet daily 1 tablet every evening, 30 days, 0 refills - Namzaric 28-10 MG Capsule Extended Release 24 Hour TAKE ONE CAPSULE BY MOUTH EVERY MORNING, 90 days, 3 refills - Pantoprazole Sodium 40 MG Tablet Delayed Release as directed 1 tab daily, 30 days, 0 refills - Trintellix 10 MG Tablet TAKE ONE (1) TABLET BY MOUTH DAILY , 30 days, 11 refills User Defined 4 PREVIOUS PSYCHIATRIC HOSPITALIZATION: She was hospitalized at [facility] in 2008 due to depression; she said that she was suicidal then. She was also hospitalized at [place] at least twice from [id number]. She said again she could not remember the dates. PREVIOUS PSYCHIATRIC TREATMENT: She was under the care of Dr. Arciniega in [place]. PREVIOUS PSYCHIATRIC MEDICATIONS: Lexapro 20mg once a day Namenda 10 mg twice a day Aricept 10mg once a day Wellbutrin SR 100 mg in the morning Lamictal 200 mg a day Ativan 1 mg three times a day. Fetzima-- stopped August 2014-- caused incontinence Namzaric - stopped 10/2023 after taking for several years - had diarrhea Allergies - Neupro Reaction: rash - Sulfa Antibiotics Assessment - Adult attention deficit hyperactivity disorder Plan StartCited - Attention-deficit hyperactivity disorder, combined type Mydayis 37.5 MG capsule TAKE ONE (1) CAPSULE BY MOUTH EACH MORNING, 30 days, 0 refills EndCited StartCited - Other PHY ORDER/COMMENT noted and her Mydayis has been escribed EndCited
--- OUTSIDE RECORDS SUMMARY | 2024-09-04 14:22 | XMS_ITS | Clinical Summary ---
Author Organization [facility] Address [address] [place] [address] Phone Care Team Providers Care Edge Stripper Name Role Phone RHIANNON DAI, EILEEN JJ Unavailable [phone] Reason for Visit and Chief Complaint The Chief Complaint is: follow up for ADD, bipolar, dementia, anxiety and depression Problems Includes: Problems addressed during this encounter and other active Problems Current Visit Onset Date Resolved Date Provider Conditio n Status Depressive Disorder, Nos 04/13/2018 Active Last Documented On 3 5:51PM ; [facility] Adult Attention Deficit Hyperactivity Disorder 01/16/2017 Active Last Documented On 3 5:50PM ; [facility] Psychophysiological Insomnia 09/27/2016 Active Last Documented On 3 5:50PM ; [facility] Bipolar I Disorder 03/13/2015 Active Last Documented On 3 5:48PM ; [facility] Dementia 02/10/2015 Active Last Documented On 3 5:48PM ; [facility] Generalized Anxiety Disorder 02/10/2015 Active Last Documented On 3 5:48PM ; [facility] Mild Cognitive Impairment 02/10/2015 EILEEN VINCENT MD Active Last Documented On 3 5:01PM ; [facility] Restless Legs Syndrome 07/28/2013 Ac tive Last Documented On 3 5:48PM ; [facility] Restless Legs Syndrome 07/28/2013 In active Last Documented On 3 5:46PM ; [facility] 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 Past Visits Onset Date Resolved Date Provider Condition Status Hypothyroidism, unspecified 08/02/2012 Active Last Documented On 3 5:48PM ; [facility] Gastro-esophageal reflux disease without esophagitis 08/02 Active Last Documented On 3 5:48PM ; [facility] Fracture of Nasal Bones 08/02/2012 A ctive Last Documented On 3 5:42PM ; [facility] Hyperlipidemia, unspecified 08/02/2012 Active Last Documented On 3 5:48PM ; [facility] Essential (primary) hypertension 08/02/2012 Active Last Documented On 3 5:48PM ; [facility] Irritable bowel syndrome without diarrhea 08/02/2012 Active Last Documented On 3 5:48PM ; [facility] Plan of Treatment Bipolar Depression - Lamictal [...] a day as needed for severe panic/anxiety Restless Legs Syndrome - Requip 2 mg in the evening Dementia - Namenda 5 mg a day since pt stopped Namzaric since she thought it was causing diarrhea Attention Deficit Hyperactivity Disorder - Mydayis 37.5 mg 1 capsule in the morning Psychophysiological Insomnia - Trazodone 50 mg 1 tab every night at bedtime, Belsomra 10 mg at hs as needed for sleep, encouraged good sleep hygiene habits - Last Documented On 12/24/2023 4:37AM ; [facility] Future Appointments Date Time Location Provi itz TELEHEALTH ADULT PSYCH ESTABLISHED 12/24/2024 11:00AM [facility]LINDSAY VINCENT MD Last Documented On 5 4:04PM ; [facility] Education and Decision Aids were provided during visit for: Patient counseling I discuss ed risk, benefits, and side effects of sleep aid - Belsomra - including the possibility of sleep related behaviors i.e. sleepwalking, sleeptalking, sleepdriving, etc... Pt verbalized understanding Last Documented On 4 11:46AM ; [facility] I recommended cognitive exer cises such as reading and/or word search puzzles, etc.. Last Documented On 4 11:46AM ; [facility] Calming techniques such as b reathing exercises/meditation and other relaxation techniques Last Documented On 4 4:34AM ; [facility] Assessments Includes: Assessments from this encounter Findings - Nonorganic sleep apnea - Last Documented On 12/24/2023 4:37AM ; [facility] - Dementia - Last Documented On 12/24/2023 4:37AM ; [facility] - Mild Cognitive Impairment - Last Documented On 12/24/2023 4:37AM ; [facility] - Restless legs syndrome - Last Documented On 12/24/2023 4:37AM ; [facility] - Bipolar I disorder - Last Documented On 12/24/2023 4:37AM ; [facility] - Depressive disorder - Last Documented On 12/24/2023 4:37AM ; [facility] - Psychophysiological insomnia - Last Documented On 12/24/2023 4:37AM ; [facility] - Generalized anxiety disorder - Last Documented On 12/24/2023 4:37AM ; [facility] - Adult attention deficit hyperactivity disorder - Last Documented On 12/24/2023 4:37AM ; [facility] Instructions Includes: Instructions from this encounter Education and Decision Aids were provided during visit for: Patient counseling I discuss ed risk, benefits, and side effects of sleep aid - Belsomra - including the possibility of sleep related behaviors i.e. sleepwalking, sleeptalking, sleepdriving, etc... Pt verbalized understanding Last Documented On 4 11:46AM ; [facility] I recommended cognitive exer cises such as reading and/or word search puzzles, etc.. Last Documented On 4 11:46AM ; [facility] Calming techniques such as b reathing exercises/meditation and other relaxation techniques Last Documented On 4 4:34AM ; [facility] Medical Equipment - Implanted Devices Includes: Current Devices No Medical Equipment Recorded Medications Includes: Medications discussed during this encounter and other current Medications Discontinued / Stopped on this date EILEEN VINCENT MD on 10/18/2023 Focalin 10 MG Oral Tablet Provider: EILEEN VINCENT MD Diagnosis: Attention-defici t hyperactivity disorder, combined type Last Documented On 12/19/2023 11:48AM By Radha Vincent MD ; [facility] New / Renewed during this visit EILEEN VINCENT MD on 12/19/2023 rOPINIRole HCl 2 MG Oral Tablet Provider: EILEEN VINCENT MD 30 day supply: 30 tablet, 5 refills Diagnosis: Restless legs syndrome as directed 1 tablet at 5 pm in the evening for restless legs Pharmacy: [address] Last Documented On 12/19/2023 11:49AM By Radha Vincent MD ; [facility] Current Medications (continue as prescribed) busPIRone HCl 15 MG Oral Tablet 01/16/2024 Provider: EILEEN VINCENT MD Diagnosis: TAKE ONE TABLET BY MOUTH THREE TIMES a DAY Last Documented On 01/16/2024 10:52AM By Radha Vincent MD ; [facility] Mydayis 37.5 MG Oral Capsule Extended Release 24 Hour 01/01/2024 Provider: EILEEN VINCENT MD Diagnosis: Attention-defici t hyperactivity disorder, combined type TAKE ONE (1) CAPSULE BY MOUT H EACH MORNING Last Documented On 01/01/2024 5:57PM By Radha Vincent MD ; [facility] Memantine HCl 5 MG Oral Tablet 12/12/2023 Provider: EILEEN VINCENT MD Diagnosis: Dem in oth dis c lassd elswhr,unsp sev,w/o beh/psych/mood/anx One tablet daily Last Documented On 12/12/2023 4:50PM By Radha Vincent MD ; [facility] rOPINIRole HCl 2 MG Oral Tablet 12/10/2023 Provider: VENTURA GERARDO Diagnosis: Last Documented On 12/19/2023 11:45AM By Radha Vincent MD ; [facility] Namzaric 28-10 MG Oral Capsule Extended Release 24 Hour 11/26/2023 Provider: EILEEN VINCENT MD Diagnosis: Dem in oth dis c lassd elswhr,unsp sev,w/o beh/psych/mood/anx TAKE ONE CAPSULE BY MOUTH EV HELLEN MORNING Last Documented On 11/26/2023 1:10PM By Radha Vincent MD ; [facility] Trintellix 10 MG Oral Tablet 11/13/2023 Provider: EILEEN VINCENT MD Diagnosis: Major depressive disorder, single episode, unspecified TAKE ONE (1) TABLET BY MOUTH DAILY Last Documented On 11/13/2023 10:08AM By Radha Vincent MD ; [facility] Belsomra 10 MG Oral Tablet 11/01/2023 Provider: EILEEN VINCENT MD Diagnosis: Psychophysiologi c insomnia DIRECTED 1 TABLET AT BEDT ELEAZAR NEEDED FOR SLEEP Last Documented On 11/01/2023 4:16PM By Radha Vincent MD ; [facility] buPROPion HCl ER (XL) 300 MG Oral Tablet Extended Release 24 Hour 08/24/2023 Provider: EILEEN VINCENT MD Diagnosis: Major depressive disorder, single episode, unspecified 1 tablet every morning Last Documented On 08/24/2023 10:15AM By Radha Vincent MD ; [facility] lamoTRIgine 150 MG Oral Tablet 08/24/2023 Provider: EILEEN VINCENT MD Diagnosis: TAKE ONE TABLET BY MOUTH TWO TIMES A DAY Last Documented On 08/24/2023 10:26AM By Radha Vincent MD ; [facility] Escitalopram Oxalate 20 MG Oral Tablet 08/24/2023 Provider: EILEEN VINCENT MD Diagnosis: Generalized anxi ety disorder TAKE ONE TABLET BY MOUTH DAILY Last Documented On 08/24/2023 10:16AM By Radha Vincent MD ; [facility] Ferrous Sulfate 325 (65 Fe) MG Oral Tablet 04/18/2023 Provider: Diagnosis: 1 tab every other day Last Documented On 04/18/2023 10:30AM By WISAM CASH ; [facility] Belsomra 10 MG Oral Tablet 03/19/2023 Provider: Diagnosis: Psychophysiologi c insomnia 1 tablet at bedtime as needed for sleep Last Documented On 03/19/2023 2:13PM By LETI WILSON ; [facility] Belsomra 10 MG OR TABS 09/27/2022 Provider: CISCO VINCENT MD Diagnosis: Psychophysiologi c insomnia DIRECTED - ONE (1) TAB AT BEDTIME NEEDED FOR SLEEP Last Documented On 12/09/2022 5:29PM By Radha Vincent MD ; [facility] Alendronate Sodium 70 MG OR TABS 06/19/2022 Provider : Diagnosis: 1 tab weekly Last Documented On 12/09/2022 5:29PM By WISAM CASH ; [facility] Levothyroxine Sodium 100 MCG OR CAPS 04/14/2020 Prov ider: Diagnosis: 1 tab daily Last Documented On 12/09/2022 5:29PM By WISAM CASH ; [facility] Pantoprazole Sodium 40 MG OR TBEC 11/15/2019 Provide r: Diagnosis: 1 tab daily Last Documented On 12/09/2022 5:29PM By WISAM CASH ; [facility] Azelastine HCl 0.15% NA SOLN 08/21/2019 Provider: Diagnosis: 2 sprays in each nostril twice a day Last Documented On 12/09/2022 5:29PM By WISAM CASH ; [facility] Fluticasone Propionate 50 MCG/ACT NA SUSP 07/25/2018 Provider: Diagnosis: 2 sprays in each nostril daily Last Documented On 12/09/2022 5:29PM By WISAM CASH ; [facility] amLODIPine Besy-Benazepril HCl 5-10 MG OR CAPS 016 Provider: Diagnosis: 1 daily Last Documented On 12/09/2022 5:29PM By WILMER REDDY LPN ; [facility] Lipitor 20 MG OR TABS 11/10/2015 Provider: Diagnosis: 1 tablet every evening Last Documented On 12/09/2022 5:29PM By WILMER REDDY LPN ; [facility] Lasix 20 MG OR TABS 11/10/2015 Provider: Diagnosis: 1 tablet every morning Last Documented On 12/09/2022 5:29PM By WILMER REDDY LPN ; [facility] Aspirin 81 MG OR TABS 11/10/2015 Provider: Diagnosis: 1 tablet daily Last Documented On 12/09/2022 5:29PM By WILMER REDDY LPN ; [facility] Past Medications on file Dicyclomine HCl 10 MG Oral Capsule 09/14/2023 - 2023 Provider: Diagnosis: 1 capsule bid Last Documented On 09/14/2023 11:16AM By WISAM CASH ; [facility] hydrOXYzine HCl 25 MG Oral Tablet 04/09/2023 - 06/08/2023 Provider: EILEEN CONNORS MD Diagnosis: 1 TAB a DAY NEEDED ONLY FOR ITCHING/ANXIETY Last Documented On 04/09/2023 12:08PM By Radha Vincent MD ; [facility] hydrOXYzine HCl 25 MG OR TABS 10/08/2020 - 11/07/2020 Provider: EILEEN VINCENT MD Diagnosis: Generalized anxi ety disorder as directed - 1 tab a day as needed for agitation/anxiety Last Documented On 12/09/2022 5:29PM By Radha Vincent MD ; [facility] LaMICtal 150 MG OR TABS 09/24/2018 - 09/27/2018 Provider: EILEEN VINCENT MD Diagnosis: Bipolar disorder , unspecified One tablet twice a day Last Documented On 12/09/2022 5:29PM By Radha Vincent MD ; [facility] Atorvastatin Calcium 20 MG OR TABS 01/28/2013 - 2012 Provider: Diagnosis: Last Documented On 12/09/2022 5:29PM By TERRI CASH ; [facility] Medications Administered Includes: Administered Medications from this encounter No Administered Medications Recorded Vital Signs Includes: Vital Signs from this encounter Vital Name 12/19/2023 11:41A Blood Pressure Sitting L 130/80 BP Cuff Size Regular Pulse Rate-Sitting (bpm) 93 Pulse Rhythm Regular Height (in) 63 Weight (lb) 160 Body Mass Index 28.3 Body Surface Area 1.8 Note: self reported vitals Last Documented: On 12/19/2023 11:42A M ; [facility] Results Includes: Results discussed during this encounter No Results Recorded For Specified Dates History of Present Illness Includes: History of Present Illness from this encounter HPI EDITH DARBY is a 73 year old female. - Allergy list reviewed - Past medical history reviewed - Medication list reviewed Dodie reported that she stopped the Namzaric which I mentioned that this is not really causing the diarrhea since she discontinued before and it did not matter because she still had the diarrhea despite stopping the Namzaric but now she wanted to discontinue it again and put her on Namenda without the Aricept. So far, she said that she still has some diarrhea but only happened twice. I recommended that she sees her book agent because of her IBS and the diarrhea may be part of the IBS instead of the medication. She is not feeling depressed. She is still motivated to do things. Sleep and appetite are good. She is able to focus and concentrate with the Mydayis. She denied having any suicidal thoughts. No delusions or hallucinations. She has not been as anxious. She denied having any mood swings. MENTAL STATUS EXAM: Sensorium - alert, oriented to name, place, and time Attitude - cooperative Gait - ambulatory Sleep - good - no sleep related behaviors with Belsomra -- compliant in wearing O2 at night Interest/Energy/Motivation - good Guilt/Worthlessness - absent Concentration/Attention Span - able to focus and concentrate Memory Recall - poor short term memory recall Appetite - good - on 09/14/23 pt weighed 163 lbs and on 12/19/23 she weighed 160 lbs so she lost 3 lbs Suicidal Thoughts - absent Homicidal Thoughts - absent Delusions - absent Hallucinations - absent Appearance - casually groomed Motor Behavior - calm Eye Contact - intermittent Speech - fluent Mood - not depressed Affect - not as anxious Thought Process - coherent Insight and Judgment - intact Social History Description Last Updated Caffeine use: Daily coffee c onsumption -- no coffee or soda, 0-2 glasses of unsweetened tea daily.Alcohol: Not using alcohol.Drug Use: Not using drugs (Illicit).Work: Work history 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 She was raised in [place], [place] and [place], [place]. She was close to her parents while growing up and they were supportive of her. 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 She denied any history of verbal,physical or sexual abuse. 12/19/2023 Last Documented On 05/08/202 4 11:02AM ; [facility] Tobacco non-user - Never smoker 12/19/19 24 Last Documented On 4 4:37AM ; [facility] Smoking Status Unknown Procedures and Surgical History Includes: Procedures from this encounter Procedures Code Diagnosis Performing Provider Service Location Service Date PSYCHOTHERAPY 30 MIN W/ [place] [address] Bipolar disorder, unspecified, Generalized anxiety disorder, Attention-deficit hyperactivity disorder, other type, Restless legs syndrome EILEEN VINCENT MD [facility] 12/19/2023 Last Documented On 4 5:27PM ; [facility] patient counseling I discuss ed risk, benefits, and side effects of sleep aid - Belsomra - including the possibility of sleep related behaviors i.e. sleepwalking, sleeptalking, sleepdriving, etc... Pt verbalized understanding Last Documented On 4 11:46AM ; [facility] education and instructions Last Documented On 4 11:02AM ; [facility] supportive care and encourag ement--given positive reinforcement to keep patient motivated and active Last Documented On 4 11:46AM ; [facility] ~* Call [phone] and /or go t o the nearest emergency room or call me if suicidal/homicidal ideation or other serious concerns arise. ~ ~* I gave instructions to call me should there be any questions or concerns. ~ ~* Patient voiced understanding and agreed to treatment plan Last Documented On 4 11:40AM ; [facility] dangerousness assessment: no suicide risk 3085F Last Documented On 4 11:02AM ; [facility] use of tobacco assessment performed 1000F Last Documented On 4 11:02AM ; [facility] patient screened for future fall risk: documentation of any fall with injury in past year - no recent falls 1100F Last Documented On 4 11:40AM ; [facility] review of medications documented 1160F Last Documented On 4 11:02AM ; [facility] assessment of suicide risk performed - n ot suicidal Last Documented On 4 11:40AM ; [facility] screening for adult depressi on: impression and score - please see above for treatment and PHQ score Last Documented On 4 11:02AM ; [facility] standardized depression screening: posit kofi for symptoms Last Documented On 4 11:02AM ; [facility] encouragement to exercise - balanced karime l plan, low fat low carb diet Last Documented On 4 4:34AM ; [facility] I recommended cognitive exer cises such as reading and/or word search puzzles, etc.. Last Documented On 4 11:46AM ; [facility] Clinical summary provided to patient Last Documented On 4 11:02AM ; [facility] PHQ-9: total score 0 Last Documented On 4 4:34AM ; [facility] Medical History Includes: Medical History addressed during this encounter Description Last Updated Primary Care Provider: Dr. Angela Mcgarry -- Senior Ios Software Engineer Dr. Naveed Lala, DPM -- Director Of Group Sales Dr. Kirti Springer -- Screen Machine Operator Dr. Keanu Mitchell, DMD -- Dentist Dr. Joshua Hanson, OD -- OptometristDiagnoses: Area of concern on right breast 12/2023Hearing loss - wears bilateral hearing aids. Systemic hypertension. Bronchitis - given Zpak 250 mg and Albuterol HFA 90 mcg inhaler on 02/23/22 and given Methylprednisolone Dosepak 4 mg on 02/18/22Bronchitis - given Albuterol HFA 90 mcg and Tessalon Perles 100 mg 09/03/22Obstructive sleep apnea -- sleep study done 05/22/[address] [facility] under Dr. Cutler. She was wearing a dental device purchased from [facility] dentistry. Patient does not wear her dental device. She is getting it refitted 10/2022. It does not help. She uses O2 at 2 liter as needed. Esophageal refluxIrritable bowel syndrome. HyperlipidemiaIron deficiency - started on Ferrous Sulfate 325 [address] Dion Kidd in 01/2019. Hypothyroidism. Tinea pedis. Fracture of the nasal bones - given Hydrocodone 5/325 from injuries sustained from fall at her son's [employer] business 08/28/22Sprain of the left footHammer toe - 2nd toe of left foot straightened by Dr. Hiro Arthur 11/05/20 -- given Keflex 500 mg. Head injury /brain trauma. Vaginal candidiasis - given Flagyl 500 mg 11/06/20Fractured Humerus -- 11/10/22 - had to have plate and screws placed and doing physical therapyDiagnoses: ? ? Fall risk -- pt has had 3 falls -- one in 10/2017, twice in December around 12/25/2017, pt had swollen ankles (right side) -- Dr. Carrizales told her to put ice and swelling went away -- #4 pt fell 11/14/18 -- she slipped on her couch cushions while cleaning a mirror and landed on her back -- no apparent injuries -- #5 pt fell 07/2019 -- she cannot recall the details, denies injury -- #6 12/14/19 patient missed a step and bruised her right stark and knee -- #7 10/2020 patient tripped over motorcycle trailer; received bruising to her side and breast -- #8 02/12/22 -- tripped going up the steps -- she bruised her right great toe; seen at urgent care -- possible slight fracture -- #9 02/19/22 -- while at her son's job she missed a big step and fell flat on the side of her face; she bloodied her face, knee and lip -- #10 04/2022 -- patient missed a step going down while she was at the carwash; she had a nosebleed and a sore right knee; she did not go to the DrHattie or ER -- #11 -- patient missed step at the carwash and fractured her nose; she wore a splint-- #12 11/10/22 -- patient fell and sustained fractured Humerus-- #13 - 15 -- patient reported losing her balance and falling 3 times -- no injuries-- #16 06/13/23 pt missed 1 step and fell; she cut her head above her eyebrow, jammed 2 fingers, and bruised her knees and left shoulder; she saw Dr. Carrizales the next day.-- #17 - 19 -- patient reported falling 3 times since 06/2023 -- she injured her nose, eyes and sustained some bruisingProcedural: ? ? Coronavirus 2019-nCoV vaccine - [place] #1 11/02/20 #2 03/23/21 -- as of 07/29/21 no booster yet? ? Colonoscopy - 11/2020? ? Epidural Steroid Injection -- 03/08/[address] Yi for back painSurgical: ? ? 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 ? Cholecystectomy? ? Hysterectomy? ? Tubal ligation? ? Hallux valgus (bunion) correction -- 08/01/17 and 12/14/23 of the left foot -- 2nd toe, 3rd toe and 5th toe? ? Excision left foot bunion-- 2011Surgery of arm due to fractured Humerus 11/10/2022 - had plate and screws placed 12/19/2023 Last Documented On 4 11:48AM ; [facility] Family History Includes: Family History addressed during this encounter Description Last Updated Paternal: Depression -- fath er Anxiety disorder NOS -- fatherMaternal: Depression -- mother Anxiety disorder NOS -- motherSororal: Depression -- sister 12/19/2023 Last Documented On 4 11:02AM ; [facility] Review of Systems Includes: Review of Systems from this encounter Systemic: Not feeling poorly (malaise). No fever, no chills, and no night sweats. Head: No headache and no sinus pain. Neck: No neck pain and no neck stiffness. Eyes: Vision problems. No itching of the eyes and no eye pain. Otolaryngeal: Hearing loss. No earache, no nasal discharge, no hoarseness, and no sore throat. Cardiovascular: No chest pain or discomfort, no palpitations, and the heart rate was not fast. Pulmonary: No dyspnea. Cough. No wheezing. Gastrointestinal: Heartburn. No nausea and no vomiting. Diarrhea. No constipation. Genitourinary: No increase in urinary frequency. No dysuria. Endocrine: No polydipsia and no excessive sweating. Musculoskeletal: Muscle aches. No localized joint pain. Stiffness localized to one or more joints. Neurological: No dizziness, no vertigo, no fainting, [...] esolved Last Documented On 9 1:33PM ; [facility] MHS Sulfa Antibiotics Allergy 08/02/2012 A ctive Last Documented On 4 11:08AM ; [facility] Note: Imported from external source. Neupro Allergy rash 10/23/2013 Active Last Documented On 4 11:08AM ; [facility] Note: Imported from external source. Encounters Encounter Provider Location Date Check-In Time Check-Out Time Diagnosis TELEHEALTH ADULT PSYCH ESTABLISHED EILEEN VINCENT MD [facility] 024 11:02AM 11:59PM Generalized Anxiety Disorder,Nonorga deonte Sleep Apnea,Restless Legs Syndrome,Dementi a,Psychophysiolo gical Insomnia,Bipolar I Disorder,Adult Attention Deficit Hyperactivity Disorder,Mild Cognitive Impairment,Depre ssive Disorder, Nos Insurance Includes: Active Insurance Policies Plan Name Member ID Group # Subscriber Relationship Effect kofi Dates 1 - [employer] [id number] EDITH Miller MEHNAZ Self 2 - [facility] [id number] MEHNAZ, INGRID J 0 - Unknown Clinical Notes Includes: Clinical Notes from this encounter * Progress note Date Encounter Last Documented by 12/19/2023 TELEHEALTH ADULT PSYCH ESTABLISH ED Last documented on 12/24/2023; 4:37 AM, EILEEN VINCENT MD; [facility] Top of Document Medication psychotherapy 30 minutes Patient gave verbal consent for Telehealth 12/19/23. Location of patient: patient's home Location of provider: provider's office Patient was alone for the session. This visit was conducted with use of interactive audio and video telecommunication system with real time communication between the patient and the provider. Patient consent for virtual visit obtained today. Total time spent with patient via audio and video telecommunication 30 minutes. Active Problems & Conditions - Adult Attention [...] Insomnia - Restless Legs Syndrome Chief Complaint The Chief Complaint is: Follow up for ADD, bipolar, dementia, anxiety and depression. History of Present Illness EDITH DARBY is a 73 year old female. - Allergy list reviewed - Past medical history reviewed - Medication list reviewed Dodie reported that she stopped the Namzaric which I mentioned that this is not really causing the diarrhea since she discontinued before and it did not matter because she still had the diarrhea despite stopping the Namzaric but now she wanted to discontinue it again and put her on Namenda without the Aricept. So far, she said that she still has some diarrhea but only happened twice. I recommended that she sees her book agent because of her IBS and the diarrhea may be part of the IBS instead of the medication. She is not feeling depressed. She is still motivated to do things. Sleep and appetite are good. She is able to focus and concentrate with the Mydayis. She denied having any suicidal thoughts. No delusions or hallucinations. She has not been as anxious. She denied having any mood swings. MENTAL STATUS EXAM: Sensorium - alert, oriented to name, place, and time Attitude - cooperative Gait - ambulatory Sleep - good - no sleep related behaviors with Belsomra -- compliant in wearing O2 at night Interest/Energy/Motivation - good Guilt/Worthlessness - absent Concentration/Attention Span - able to focus and concentrate Memory Recall - poor short term memory recall Appetite - good - on 09/14/23 pt weighed 163 lbs and on 12/19/23 she weighed 160 lbs so she lost 3 lbs Suicidal Thoughts - absent Homicidal Thoughts - absent Delusions - absent Hallucinations - absent Appearance - casually groomed Motor Behavior - calm Eye Contact - intermittent Speech - fluent Mood - not depressed Affect - not as anxious Thought Process - coherent Insight and Judgment - intact Current Medication - Alendronate Sodium 70 MG [...] for sleep, 30 days, 3 refills - Belsomra 10 MG Oral Tablet DIRECTED 1 TABLET AT BEDTIME NEEDED FOR SLEEP, 30 days, 5 refills - buPROPion HCl ER (XL) 300 [...] nostril daily, 90 days, 0 refills - lamoTRIgine 150 MG [...] every evening, 30 days, 0 refills - Memantine HCl 5 MG Oral Tablet One tablet daily, 30 days, 5 refills - Mydayis 37.5 MG Oral Capsule Extended Release 24 Hour TAKE ONE (1) CAPSULE BY MOUTH EACH MORNING, 30 days, 0 refills - Namzaric 28-10 MG Oral Capsule Extended Release 24 Hour TAKE ONE CAPSULE BY MOUTH EVERY MORNING, 90 days, 3 refills - Pantoprazole Sodium 40 MG Tablet Delayed Release as directed 1 tab daily, 30 days, 0 refills - rOPINIRole HCl 2 MG Oral Tablet 60 days, 0 refills - Trintellix 10 MG Oral Tablet TAKE ONE (1) TABLET BY MOUTH DAILY, 30 days, 11 refills - - No side effects reported Past Medical/Surgical History Primary Care Provider: Dr. Emmett Mcgarry -- Senior Ios Software Engineer Dr. Naveed Lala DPM -- Director Of Group Sales Dr. Kirti Springer -- Screen Machine Operator Dr. Keanu Mitchell, DMD -- Dentist Dr. Joshua Hanson, OD -- Pharmacy Benefits Coordinator Diagnoses: Area of concern on right breast 12/2023 Hearing loss - wears bilateral hearing aids. Systemic hypertension. Bronchitis - given Zpak 250 mg and Albuterol HFA 90 mcg inhaler on 02/23/22 and given Methylprednisolone Dosepak 4 mg on 02/18/22 Bronchitis - given Albuterol HFA 90 mcg and Tessalon Perles 100 mg 09/03/22 Obstructive sleep apnea -- sleep study done 05/22/[address] [facility] under Dr. Cutler. She was wearing a dental device purchased from [facility] dentistry. Patient does not wear her dental device. She is getting it refitted 10/2022. It does not help. She uses O2 at 2 liter as needed. Esophageal reflux Irritable bowel syndrome. Hyperlipidemia Iron deficiency - started on Ferrous Sulfate 325 [address] Dion Kidd in 01/2019. Hypothyroidism. Tinea pedis. Fracture of the nasal bones - given Hydrocodone from injuries sustained from fall at her son's [employer] 08/28/22 Sprain of the left foot Hammer toe - 2nd toe of left foot straightened by Dr. Hiro Arthur 11/05/20 -- given Keflex 500 mg. Head injury /brain trauma. Vaginal candidiasis - given Flagyl 500 mg 11/06/20 Fractured Humerus -- 11/10/22 - had to have plate and screws placed and doing physical therapy Diagnoses: - Fall risk -- pt has had 3 falls -- one in 10/2017, twice in December around 12/25/2017, pt had swollen ankles (right side) -- Dr. Carrizales told her to put ice and swelling went away -- #4 pt fell 11/14/18 -- she slipped on her couch cushions while cleaning a mirror and landed on her back -- no apparent injuries -- #5 pt fell 07/2019 -- she cannot recall the details, denies injury -- #6 12/14/19 patient missed a step and bruised her right stark and knee -- #7 10/2020 patient tripped over motorcycle trailer; received bruising to her side and breast -- #8 02/12/22 -- tripped going up the steps -- she bruised her right great toe; seen at urgent care -- possible slight fracture -- #9 02/19/22 -- while at her son's job she missed a big step and fell flat on the side of her face; she bloodied her face, knee and lip -- #10 04/2022 -- patient missed a step going down while she was at the carwash; she had a nosebleed and a sore right knee; she did not go to the Dr. or ER -- #11 -- patient missed step at the carwash and fractured her nose; she wore a splint -- #12 11/10/22 -- patient fell and sustained fractured Humerus -- #13 - 15 -- patient reported losing her balance and falling 3 times -- no injuries -- #16 06/13/23 pt missed 1 step and fell; she cut her head above her eyebrow, jammed 2 fingers, and bruised her knees and left shoulder; she saw Dr. Carrizales the next day. -- #17 - 19 -- patient reported falling 3 times since 06/2023 -- she injured her nose, eyes and sustained some bruising Procedural: - Coronavirus 2019-nCoV vaccine - Pfizer #1 11/02/20 #2 03/23/21 -- as of 07/29/21 no booster yet - Colonoscopy - 11/2020 - Epidural Steroid Injection -- 03/08/[address] 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 She was also hospitalized at [facility] at least twice from [id number]. She said again she could not remember the dates. PREVIOUS PSYCHIATRIC TREATMENT: She was under the care of Dr. Arciniega in [place]. PREVIOUS PSYCHIATRIC MEDICATIONS: Lexapro 20mg once a day Namenda 10 mg twice a day Aricept 10mg once a day Wellbutrin SR 100 mg in the morning Lamictal 200 mg a day Ativan 1 mg three times a day. Fetzima-- stopped August 2014-- caused incontinence Social History Tobacco use: Tobacco non-user - Never smoker. Caffeine use: Daily coffee consumption -- no coffee or soda, 0-2 glasses of unsweetened tea daily. Alcohol: Not using alcohol. Drug Use: Not using drugs (Illicit). 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 Marital: Marital history --. She was born in [place], [place]. She was raised in [place], [place] and [place], [place]. She was close to her parents while growing up and they were supportive of her. 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 She denied any history of verbal,physical or sexual abuse. Allergies - Neupro Reaction: rash - Sulfa Antibiotics Family History Paternal: Depression -- father Anxiety disorder NOS -- father Maternal: Depression -- mother Anxiety disorder NOS -- mother Sororal: Depression -- sister Review Of Systems Systemic: Not feeling poorly (malaise). No fever, no chills, and no night sweats. Head: No headache and no sinus pain. Neck: No neck pain and no neck stiffness. Eyes: Vision problems. No itching of the eyes and no eye pain. Otolaryngeal: Hearing loss. No earache, no nasal discharge, no hoarseness, and no sore throat. Cardiovascular: No chest pain or discomfort, no palpitations, and the heart rate was not fast. Pulmonary: No dyspnea. Cough. No wheezing. Gastrointestinal: Heartburn. No nausea and no vomiting. Diarrhea. No constipation. Genitourinary: No increase in urinary frequency. No dysuria. Endocrine: No polydipsia and no excessive sweating. Musculoskeletal: Muscle aches. No localized joint pain. Stiffness localized to one or more joints. Neurological: No dizziness, no vertigo, no fainting, and no motor disturbances. Skin: No pruritus. No skin lesions and no rash. Physical Findings - Vitals taken 12/19/2023 11:41 am self reported vitals BP-Sitting L 130/80 mmHg BP Cuff Size Regular Pulse Rate-Sitting 93 bpm Pulse Rhythm Regular Height 63 in Weight 160 lbs Body Mass Index 28.3 kg/m2 Body Surface Area 1.8 m2 Tests Educational Testing: Questionnaires PHQ-9: Value PHQ-9: total score 0 Assessment - Nonorganic sleep apnea - Dementia - Mild Cognitive Impairment - Restless legs syndrome - Bipolar I disorder - Depressive disorder - Psychophysiological insomnia - Generalized anxiety disorder - Adult attention deficit hyperactivity disorder Therapy - Dangerousness assessment: no suicide risk. - Encouragement to exercise - balanced meal plan, low fat low carb diet. - Supportive care and encouragement--given positive reinforcement to keep patient motivated and active. - Education and instructions. - I recommended cognitive exercises such as reading and/or word search puzzles, etc.. and patient counseling I discussed risk, benefits, and side effects of sleep aid - Belsomra - including the possibility of sleep related behaviors i.e. sleepwalking, sleeptalking, sleepdriving, etc... Pt verbalized understanding. - Assessment of suicide risk performed - not suicidal - Clinical summary provided to patient. * Call [phone] and /or go to the nearest emergency room or call me if suicidal/homicidal ideation or other serious concerns arise. * I gave instructions to call me should there be any questions or concerns. * Patient voiced understanding and agreed to treatment plan. Counseling/Education - Calming techniques such as breathing exercises/meditation and other relaxation techniques Plan StartCited - Other Follow-up 03/18/24 EndCited StartCited - Restless legs syndrome rOPINIRole HCl 2 MG tablet as directed 1 tablet at 5 pm in the evening for restless legs, 30 days, 5 refills EndCited Bipolar Depression - Lamictal 150 mg 1 [...] a day as needed for severe panic/anxiety Restless Legs Syndrome - Requip 2 mg in the evening Dementia - Namenda 5 mg a day since pt stopped Namzaric since she thought it was causing diarrhea Attention Deficit Hyperactivity Disorder - Mydayis 37.5 mg 1 capsule in the morning Psychophysiological Insomnia - Trazodone 50 mg 1 tab every night at bedtime, Belsomra 10 mg at hs as needed for sleep, encouraged good sleep hygiene habits Practice Management Use of tobacco assessment performed and patient screened for future fall risk documentation of any fall with injury in past year - no recent falls Review of medications documented; Standardized depression screening: positive for symptoms and for adult impression and score - please see above for treatment and PHQ score.
--- OUTSIDE RECORDS SUMMARY | 2024-09-04 14:22 | XMS_ITS | Clinical Summary ---
Author Organization [facility] Address [address] [place] [address] Phone Care Team Providers Care [employer] Operations Consultant Name Role Phone RHIANNON DAI, EILEEN JJ Unavailable [phone] Reason for Visit and Chief Complaint * PHONE CALL Problems Includes: Problems addressed during this encounter and other active Problems All Visits Onset Date Resolved Date Provider Condition S tatus Depressive Disorder, Nos 04/13/2018 Active Last Documented On 3 5:51PM ; [facility] Adult Attention Deficit Hyperactivity Disorder 01/16/2017 Active Last Documented On 3 5:50PM ; [facility] Psychophysiological Insomnia 09/27/2016 Active Last Documented On 3 5:50PM ; [facility] Bipolar I Disorder 03/13/2015 Active Last Documented On 3 5:48PM ; [facility] Dementia 02/10/2015 Active Last Documented On 3 5:48PM ; [facility] Generalized Anxiety Disorder 02/10/2015 Active Last Documented On 3 5:48PM ; [facility] Mild Cognitive Impairment 02/10/2015 EILEEN VINCENT MD Active Last Documented On 3 5:01PM ; [facility] Restless Legs Syndrome 07/28/2013 Ac tive Last Documented On 3 5:48PM ; [facility] 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 EILEEN DE LA VEGA MD Active Last Documented On 3 5:01PM ; [facility] Hypothyroidism, unspecified 08/02/2012 Active Last Documented On 3 5:48PM ; [facility] Gastro-esophageal reflux disease without esophagitis 08/02 Active Last Documented On 3 5:48PM ; [facility] Fracture of Nasal Bones 08/02/2012 A ctive Last Documented On 3 5:42PM ; [facility] Hyperlipidemia, unspecified 08/02/2012 Active Last Documented On 3 5:48PM ; [facility] Essential (primary) hypertension 08/02/2012 Active Last Documented On 3 5:48PM ; [facility] Irritable bowel syndrome without diarrhea 08/02/2012 Active Last Documented On 3 5:48PM ; [facility] Plan of Treatment Future Appointments Date Time Location Provi itz TELEHEALTH ADULT PSYCH ESTABLISHED 12/24/2024 11:00AM [facility] VINCENT MD Last Documented On 5 4:04PM ; [facility] Assessments Includes: Assessments from this encounter No Assessments Recorded Medical Equipment - Implanted Devices Includes: Current Devices No Medical Equipment Recorded Medications Includes: Medications discussed during this encounter and other current Medications Current Medications (continue as prescribed) busPIRone HCl 15 MG Oral Tablet 01/16/2024 Provider: EILEEN VINCENT MD Diagnosis: TAKE ONE TABLET BY MOUTH THREE TIMES a DAY Last Documented On 01/16/2024 10:52AM By Radha Vincent MD ; [facility] Mydayis 37.5 MG Oral Capsule Extended Release 24 Hour 01/01/2024 Provider: EILEEN VINCENT MD Diagnosis: Attention-defici t hyperactivity disorder, combined type TAKE ONE (1) CAPSULE BY MOUT H EACH MORNING Last Documented On 01/01/2024 5:57PM By Radha Vincent MD ; [facility] rOPINIRole HCl 2 MG Oral Tablet 12/19/2023 Provider: EILEEN VINCENT MD Diagnosis: Restless legs sy ndrome as directed 1 tablet at 5 pm in the evening for restless legs Last Documented On 12/19/2023 11:49AM By Radha Vincnet MD ; [facility] Memantine HCl 5 MG Oral Tablet 12/12/2023 Provider: EILEEN VINCENT MD Diagnosis: Dem in oth dis c lassd elswhr,unsp sev,w/o beh/psych/mood/anx One tablet daily Last Documented On 12/12/2023 4:50PM By Radha Vincent MD ; [facility] rOPINIRole HCl 2 MG Oral Tablet 12/10/2023 Provider: VENTURA GERARDO Diagnosis: Last Documented On 12/19/2023 11:45AM By Radha Vincent MD ; [facility] Namzaric 28-10 MG Oral Capsule Extended Release 24 Hour 11/26/2023 Provider: EILEEN VINCENT MD Diagnosis: Dem in oth dis c lassd elswhr,unsp sev,w/o beh/psych/mood/anx TAKE ONE CAPSULE BY MOUTH EV HELLEN MORNING Last Documented On 11/26/2023 1:10PM By Radha Vincent MD ; [facility] Trintellix 10 MG Oral Tablet 11/13/2023 Provider: EILEEN VINCENT MD Diagnosis: Major depressive disorder, single episode, unspecified TAKE ONE (1) TABLET BY MOUTH DAILY Last Documented On 11/13/2023 10:08AM By Radha Vincent MD ; [facility] Belsomra 10 MG Oral Tablet 11/01/2023 Provider: EILEEN VINCENT MD Diagnosis: Psychophysiologi c insomnia DIRECTED 1 TABLET AT BEDT ELEAZAR NEEDED FOR SLEEP Last Documented On 11/01/2023 4:16PM By Radha Vincent MD ; [facility] buPROPion HCl ER (XL) 300 MG Oral Tablet Extended Release 24 Hour 08/24/2023 Provider: EILEEN VINCENT MD Diagnosis: Major depressive disorder, single episode, unspecified 1 tablet every morning Last Documented On 08/24/2023 10:15AM By Radha Vincent MD ; [facility] lamoTRIgine 150 MG Oral Tablet 08/24/2023 Provider: EILEEN VINCENT MD Diagnosis: TAKE ONE TABLET BY MOUTH TWO TIMES A DAY Last Documented On 08/24/2023 10:26AM By Radha Vincent MD ; [facility] Escitalopram Oxalate 20 MG Oral Tablet 08/24/2023 Provider: EILEEN VINCENT MD Diagnosis: Generalized anxi ety disorder TAKE ONE TABLET BY MOUTH DAILY Last Documented On 08/24/2023 10:16AM By Radha Vincent MD ; [facility] Ferrous Sulfate 325 (65 Fe) MG Oral Tablet 04/18/2023 Provider: Diagnosis: 1 tab every other day Last Documented On 04/18/2023 10:30AM By WISAM CASH ; [facility] Belsomra 10 MG Oral Tablet 03/19/2023 Provider: Diagnosis: Psychophysiologi c insomnia 1 tablet at bedtime as needed for sleep Last Documented On 03/19/2023 2:13PM By LETI WILSON ; [facility] Belsomra 10 MG OR TABS 09/27/2022 Provider: CISCO VINCENT MD Diagnosis: Psychophysiologi c insomnia DIRECTED - ONE (1) TAB AT BEDTIME NEEDED FOR SLEEP Last Documented On 12/09/2022 5:29PM By Radha Vincent MD ; [facility] Alendronate Sodium 70 MG OR TABS 06/19/2022 Provider : Diagnosis: 1 tab weekly Last Documented On 12/09/2022 5:29PM By WISAM CASH ; [facility] Levothyroxine Sodium 100 MCG OR CAPS 04/14/2020 Prov ider: Diagnosis: 1 tab daily Last Documented On 12/09/2022 5:29PM By WISAM CASH ; [facility] Pantoprazole Sodium 40 MG OR TBEC 11/15/2019 Provide r: Diagnosis: 1 tab daily Last Documented On 12/09/2022 5:29PM By WISAM CASH ; [facility] Azelastine HCl 0.15% NA SOLN 08/21/2019 Provider: Diagnosis: 2 sprays in each nostril twice a day Last Documented On 12/09/2022 5:29PM By WISAM CASH ; [facility] Fluticasone Propionate 50 MCG/ACT NA SUSP 07/25/2018 Provider: Diagnosis: 2 sprays in each nostril daily Last Documented On 12/09/2022 5:29PM By WISAM CASH ; [facility] amLODIPine Besy-Benazepril HCl 5-10 MG OR CAPS 016 Provider: Diagnosis: 1 daily Last Documented On 12/09/2022 5:29PM By WILMER REDDY LPN ; [facility] Lipitor 20 MG OR TABS 11/10/2015 Provider: Diagnosis: 1 tablet every evening Last Documented On 12/09/2022 5:29PM By WILMER REDDY LPN ; [facility] Lasix 20 MG OR TABS 11/10/2015 Provider: Diagnosis: 1 tablet every morning Last Documented On 12/09/2022 5:29PM By WILMER REDDY LPN ; [facility] Aspirin 81 MG OR TABS 11/10/2015 Provider: Diagnosis: 1 tablet daily Last Documented On 12/09/2022 5:29PM By WILMER REDDY LPN ; [facility] Past Medications on file Dicyclomine HCl 10 MG Oral Capsule 09/14/2023 - 2023 Provider: Diagnosis: 1 capsule bid Last Documented On 09/14/2023 11:16AM By WISAM CASH ; [facility] hydrOXYzine HCl 25 MG Oral Tablet 04/09/2023 - 06/08/2023 Provider: EILEEN CONNORS MD Diagnosis: 1 TAB a DAY NEEDED ONLY FOR ITCHING/ANXIETY Last Documented On 04/09/2023 12:08PM By Rdaha Vincent MD ; [facility] hydrOXYzine HCl 25 MG OR TABS 10/08/2020 - 11/07/2020 Provider: EILEEN VINCENT MD Diagnosis: Generalized anxi ety disorder as directed - 1 tab a day as needed for agitation/anxiety Last Documented On 12/09/2022 5:29PM By Radha Vincent MD ; [facility] LaMICtal 150 MG OR TABS 09/24/2018 - 09/27/2018 Provider: EILEEN VINCENT MD Diagnosis: Bipolar disorder , unspecified One tablet twice a day Last Documented On 12/09/2022 5:29PM By Radha Vincent MD ; [facility] Atorvastatin Calcium 20 MG OR TABS 01/28/2013 - 2012 Provider: Diagnosis: Last Documented On 12/09/2022 5:29PM By TERRI CASH ; [facility] Medications Administered Includes: Administered Medications from this [...] esolved Last Documented On 9 1:33PM ; [facility] Sulfa Antibiotics Allergy 08/02/2012 A ctive Last Documented On 4 11:08AM ; [facility] Note: Imported from external source. Neupro Allergy rash 10/23/2013 Active Last Documented On 4 11:08AM ; [facility] Note: Imported from external source. Encounters Encounter Provider Location Date Check-In Time Check-Out Time Diagnosis * PHONE CALL EILEEN VINCENT MD [facility] 4 4:10PM 11:59PM Insurance Includes: Active Insurance Policies Plan Name Member ID Group # Subscriber Relationship Effect kofi Dates 1 - [employer] [id number] LANA DARBY Self 2 - [facility] [id number], INGR[place] J 0 - Unknown Clinical Notes Includes: Clinical Notes from this encounter * Progress note Date Encounter Last Documented by 11/08/2023 * PHONE CALL Last documented on 11/08/2023; 5:55 PM, EILEEN VINCENT MD; [facility] Active Problems & Conditions - Adult Attention [...] Chief Complaint Phone Call - Chief Concern: Reason for call: patient calling to let you know that she is still having diarrhea since stopping the Namzaric. Can she restart the Namzaric? pt phone # for return call: [phone] Date/Initials: 11/08/23 db. Current Medication - Alendronate Sodium 70 MG [...] every evening, 30 days, 0 refills - Mydayis 37.5 MG Oral Capsule [...] MOUTH DAILY , 30 days, 11 refills Allergies - Neupro Reaction: rash - Sulfa Antibiotics Plan StartCited - Other PHY ORDER/COMMENT I called Lana 2 x - no response so I left a message that she needs to call Dr. Carrizales first and let him know that she stopped the Namzaric as per his instruction since he thought it is the Namzaric causing her diarrhea when I disagreed with him that it is not the Namzaric since she has been on Namzaric for > 10 years and it did not cause any problems or side effects. Once she has called Dr. Carrizales and informed him that she has stopped the Namzaric and that she is still having diarrhea, she needs to tell me what Dr. Carrizales suggested that she should do -- then and only then can I resume the Namzaric but she has to start from scratch i.e., Namzaric 7 mg- 10 mg 1 cap in am for a month and will slowly titrate again but I cannot prescribe this yet until she has told Dr. Carrizales about her situation. EndCited
--- OUTSIDE RECORDS SUMMARY | 2024-09-04 14:22 | XMS_ITS | Clinical Summary ---
Author Organization [facility] Address [address] [place] [address] Phone Care Team Providers Care Barrel Filler Head Name Role Phone RHIANNON DAI, EILEEN JJ Unavailable [phone] Reason for Visit and Chief Complaint * PHONE CALL Problems Includes: Problems addressed during this encounter and other active Problems Current Visit Onset Date Resolved Date Provider Conditio n Status Dementia 02/10/2015 Active Last Documented On 3 5:48PM ; [facility] Past Visits Onset Date Resolved Date Provider Condition Status Depressive Disorder, Nos 04/13/2018 Active Last Documented On 3 5:51PM ; [facility] Adult Attention Deficit Hyperactivity Disorder 01/16/2017 Active Last Documented On 3 5:50PM ; [facility] Psychophysiological Insomnia 09/27/2016 Active Last Documented On 3 5:50PM ; [facility] Bipolar I Disorder 03/13/2015 Active Last Documented On 3 5:48PM ; [facility] Generalized Anxiety Disorder 02/10/2015 Active Last Documented On 3 5:48PM ; [facility] Mild Cognitive Impairment 02/10/2015 EILEEN VINCENT MD Active Last Documented On 3 5:01PM ; [facility] Restless Legs Syndrome 07/28/2013 Ac tive Last Documented On 3 5:48PM ; [facility] 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 EILEEN DE LA VEGA MD Active Last Documented On 3 5:01PM ; [facility] Hypothyroidism, unspecified 08/02/2012 Active Last Documented On 3 5:48PM ; [facility] Gastro-esophageal reflux disease without esophagitis 08/02 Active Last Documented On 3 5:48PM ; [facility] Fracture of Nasal Bones 08/02/2012 A ctive Last Documented On 3 5:42PM ; [facility] Hyperlipidemia, unspecified 08/02/2012 Active Last Documented On 3 5:48PM ; [facility] Essential (primary) hypertension 08/02/2012 Active Last Documented On 3 5:48PM ; [facility] Irritable bowel syndrome without diarrhea 08/02/2012 Active Last Documented On 3 5:48PM ; [facility] Plan of Treatment Future Appointments [facility]/24/2024 11:00AM [facility] VINCENT MD Last Documented On 5 4:04PM ; [facility] Assessments Includes: Assessments from this encounter Findings - Dementia - Last Documented On 12/12/2023 5:57PM ; [facility] Medical Equipment - Implanted Devices Includes: Current Devices No Medical Equipment Recorded Medications Includes: Medications discussed during this encounter and other current Medications New / Renewed during this visit EILEEN VINCENT MD on 12/12/2023 Memantine HCl 5 MG Oral Tablet Provider: EILEEN VINCENT MD 30 day supply: 30 tablet, 5 refills Diagnosis: Dem in oth dis classd elswhr,unsp sev,w/o beh/psych/mood/anx One tablet daily Pharmacy: [facility] [address], [address] - Last Documented On 12/12/2023 4:50PM By Radha Vincent MD ; [facility] Current Medications (continue as prescribed) busPIRone HCl 15 MG Oral Tablet 01/16/2024 Provider: EILEEN VINCENT MD Diagnosis: TAKE ONE TABLET BY MOUTH THREE TIMES a DAY Last Documented On 01/16/2024 10:52AM By Radha Vincent MD ; [facility] Mydayis 37.5 MG Oral Capsule Extended Release 24 Hour 01/01/2024 Provider: EILEEN VINCENT MD Diagnosis: Attention-defici t hyperactivity disorder, combined type TAKE ONE (1) CAPSULE BY MOUT H EACH MORNING Last Documented On 01/01/2024 5:57PM By Radha Vincent MD ; [facility] rOPINIRole HCl 2 MG Oral Tablet 12/19/2023 Provider: EILEEN VINCENT MD Diagnosis: Restless legs sy ndrome as directed 1 tablet at 5 pm in the evening for restless legs Last Documented On 12/19/2023 11:49AM By Radha Vincent MD ; [facility] rOPINIRole HCl 2 MG Oral Tablet 12/10/2023 Provider: VENTURA GERARDO Diagnosis: Last Documented On 12/19/2023 11:45AM By Radha Vincent MD ; [facility] Namzaric 28-10 MG Oral Capsule Extended Release 24 Hour 11/26/2023 Provider: EILEEN VINCENT MD Diagnosis: Dem in oth dis c lassd elswhr,unsp sev,w/o beh/psych/mood/anx TAKE ONE CAPSULE BY MOUTH EV HELLEN MORNING Last Documented On 11/26/2023 1:10PM By Radha Vincent MD ; [facility] Trintellix 10 MG Oral Tablet 11/13/2023 Provider: EILENE VINCENT MD Diagnosis: Major depressive disorder, single episode, unspecified TAKE ONE (1) TABLET BY MOUTH DAILY Last Documented On 11/13/2023 10:08AM By Radha Vincent MD ; [facility] Belsomra 10 MG Oral Tablet 11/01/2023 Provider: EILEEN VINCENT MD Diagnosis: Psychophysiologi c insomnia DIRECTED 1 TABLET AT BEDT ELEAZAR NEEDED FOR SLEEP Last Documented On 11/01/2023 4:16PM By Radha Vincent MD ; [facility] buPROPion HCl ER (XL) 300 MG Oral Tablet Extended Release 24 Hour 08/24/2023 Provider: EILEEN VINCENT MD Diagnosis: Major depressive disorder, single episode, unspecified 1 tablet every morning Last Documented On 08/24/2023 10:15AM By Radha Vincent MD ; [facility] lamoTRIgine 150 MG Oral Tablet 08/24/2023 Provider: EILEEN VINCENT MD Diagnosis: TAKE ONE TABLET BY MOUTH TWO TIMES A DAY Last Documented On 08/24/2023 10:26AM By Radha Vincent MD ; [facility] Escitalopram Oxalate 20 MG Oral Tablet 08/24/2023 Provider: EILEEN VINCENT MD Diagnosis: Generalized anxi ety disorder TAKE ONE TABLET BY MOUTH DAILY Last Documented On 08/24/2023 10:16AM By Radha Vincent MD ; [facility] Ferrous Sulfate 325 (65 Fe) MG Oral Tablet 04/18/2023 Provider: Diagnosis: 1 tab every other day Last Documented On 04/18/2023 10:30AM By WISAM CASH ; [facility] Belsomra 10 MG Oral Tablet 03/19/2023 Provider: Diagnosis: Psychophysiologi c insomnia 1 tablet at bedtime as needed for sleep Last Documented On 03/19/2023 2:13PM By LETI WILSON ; [facility] Belsomra 10 MG OR TABS 09/27/2022 Provider: CISCO VINCENT MD Diagnosis: Psychophysiologi c insomnia DIRECTED - ONE (1) TAB AT BEDTIME NEEDED FOR SLEEP Last Documented On 12/09/2022 5:29PM By Radha Vincent MD ; [facility] Alendronate Sodium 70 MG OR TABS 06/19/2022 Provider : Diagnosis: 1 tab weekly Last Documented On 12/09/2022 5:29PM By WISAM CASH ; [facility] Levothyroxine Sodium 100 MCG OR CAPS 04/14/2020 Prov ider: Diagnosis: 1 tab daily Last Documented On 12/09/2022 5:29PM By WISAM CASH ; [facility] Pantoprazole Sodium 40 MG OR TBEC 11/15/2019 Provide r: Diagnosis: 1 tab daily Last Documented On 12/09/2022 5:29PM By WISAM CASH ; [facility] Azelastine HCl 0.15% NA SOLN 08/21/2019 Provider: Diagnosis: 2 sprays in each nostril twice a day Last Documented On 12/09/2022 5:29PM By WISAM CASH ; [facility] Fluticasone Propionate 50 MCG/ACT NA SUSP 07/25/2018 Provider: Diagnosis: 2 sprays in each nostril daily Last Documented On 12/09/2022 5:29PM By WISAM CASH ; [facility] amLODIPine Besy-Benazepril HCl 5-10 MG OR CAPS 016 Provider: Diagnosis: 1 daily Last Documented On 12/09/2022 5:29PM By WILMER REDDY LPN ; [facility] Lipitor 20 MG OR TABS 11/10/2015 Provider: Diagnosis: 1 tablet every evening Last Documented On 12/09/2022 5:29PM By WILMER REDDY LPN ; [facility] Lasix 20 MG OR TABS 11/10/2015 Provider: Diagnosis: 1 tablet every morning Last Documented On 12/09/2022 5:29PM By WILMER REDDY LPN ; [facility] Aspirin 81 MG OR TABS 11/10/2015 Provider: Diagnosis: 1 tablet daily Last Documented On 12/09/2022 5:29PM By WILMER REDDY LPN ; [facility] Past Medications on file Dicyclomine HCl 10 MG Oral Capsule 09/14/2023 - 2023 Provider: Diagnosis: 1 capsule bid Last Documented On 09/14/2023 11:16AM By WISAM CASH ; [facility] hydrOXYzine HCl 25 MG Oral Tablet 04/09/2023 - 06/08/2023 Provider: EILEEN CONNORS MD Diagnosis: 1 TAB a DAY NEEDED ONLY FOR ITCHING/ANXIETY Last Documented On 04/09/2023 12:08PM By Radha Vincent MD ; [facility] hydrOXYzine HCl 25 MG OR TABS 10/08/2020 - 11/07/2020 Provider: EILEEN VINCENT MD Diagnosis: Generalized anxi ety disorder as directed - 1 tab a day as needed for agitation/anxiety Last Documented On 12/09/2022 5:29PM By Radha Vincent MD ; [facility] LaMICtal 150 MG OR TABS 09/24/2018 - 09/27/2018 Provider: EILEEN VINCENT MD Diagnosis: Bipolar disorder , unspecified One tablet twice a day Last Documented On 12/09/2022 5:29PM By Radha Vincent MD ; [facility] Atorvastatin Calcium 20 MG OR TABS 01/28/2013 - 2012 Provider: Diagnosis: Last Documented On 12/09/2022 5:29PM By TERRI CASH ; [facility] Medications Administered Includes: Administered Medications from [...] esolved Last Documented On 9 1:33PM ; [facility] Sulfa Antibiotics Allergy 08/02/2012 A ctive Last Documented On 4 11:08AM ; [facility] Note: Imported from external source. Neupro Allergy rash 10/23/2013 Active Last Documented On 4 11:08AM ; [facility] Note: Imported from external source. Encounters Encounter Provider Location Date Check-In Time Check-Out Time Diagnosis * PHONE CALL EILEEN VINCENT MD [facility] 4 3:59PM 11:59PM Dementia Insurance Includes: Active Insurance Policies Plan Name Member ID Group # Subscriber Relationship Effect kofi Dates 1 - [facility] [employer] [place] [id number] EDITH DARBY Self 2 - [facility] [id number] INGRID DARBY J 0 - Unknown Clinical Notes Includes: Clinical Notes from this encounter * Progress note Date Encounter Last Documented by 12/12/2023 * PHONE CALL Last documented on 12/12/2023; 5:57 PM, EILEEN VINCENT MD; [facility] Active Problems & Conditions - Adult Attention [...] Chief Concern: reason for call: Patient calling. She said since stopping the Namzaric her diarrhea accidents have been much less frequent. He had an accident 11/20/23 and did not have another accident until this week. She is wondering if she can get a replacement for the Namzaric. pt phone # for return call: [phone] date/initials: 12/12/23 bk Current Medication - Alendronate Sodium 70 [...] BY MOUTH DAILY, 30 days, 11 refills User Defined 4 PREVIOUS PSYCHIATRIC HOSPITALIZATION: She was hospitalized at [facility] in 2008 due to depression; she said that she was suicidal then. She was also hospitalized at [place] at least twice from [id number]. She said again she could not remember the dates. PREVIOUS PSYCHIATRIC TREATMENT: She was under the care of Dr. Arciniega in [place]. PREVIOUS PSYCHIATRIC MEDICATIONS: Lexapro 20mg once a [...] Reaction: rash - Sulfa Antibiotics Assessment - Dementia Plan StartCited - Dem in oth dis classd elswhr,unsp sev,w/o beh/psych/mood/anx Memantine HCl 5 MG tablet One tablet daily, 30 days, 5 refills EndCited StartCited - Other PHY ORDER/COMMENT December d/c Namzaric but I don't think this is causing her diarrhea. I have escribed Memantine 5 mg 1 tab a day. Please relay. EndCited
--- OUTSIDE RECORDS SUMMARY | 2024-09-04 14:22 | XMS_ITS | Encounter Summary ---
Author Organization [facility] Address [address] [place] [address] Phone Care Team Providers Care Lawn Mower Name Role Phone Emmett Carrizales MD Primary Care Provider [phone] [phone] Karolyn Tobar RN Unavailable Unavailable Karolyn Tobar RN Unavailable Unavailable Ifrah Whitfield APRN, RADIO BOARD OPERATOR Unavailable +1 [phone] Reason for Visit * Reason Comments Medication Refill Encounter Details Date Type Department Care Team (Late st Contact Info) Description 05/02/2023 Refill [facility] Emergency [address] [place] [address] Emmett Carrizales MD [address] [place] [address] Medication Refill Social History Tobacco Use Types Packs/Day Years Used Date Smoking Tobacco: Never Passive Smoke Exposure: Never Smokeless Tobacco: Never Alcohol Use Standard Drinks/Week Comments Not Currently 0 (1 standard drink = 0.6 oz pur e alcohol) PHQ-2 Answer Date Recorded Total Score - Questions 1-9 0 10/2 Education Answer Date Recorded What is the highest level of school you have completed or the highest degree you have received? 12th grade 11/23/2022 Sexually Active Control Partners Comments Yes Surgical Male Comments No Sex and Gender Information Value Date Recorded Sex Assigned at Not on file Legal Sex Female 12:30 AM CDT Gender Identity Not on file Sexual Orientation Not on file COVID-19 Exposure Response Date Recorded In the last 10 days, have yo u been in contact with someone who was confirmed or suspected to have Coronavirus/COVID-19? No / Unsure 04/11/2023 10:09 AM CDT documented as of this encounter Miscellaneous Notes * Telephone Encounter - Shabnam Malave RN - 05/02/2023 12:36 PM CDT Per nursing clinical judgement, provider to review and approve the medication(s) order(s) if appropriate. Requested Prescriptions Pending Prescriptions Disp Refills amLODIPine-benazepril (LOTREL) 5-10 MG Capsule [Pharmacy Med Name: AMLODIPINE BESYLATE/BENAZEPRIL HYDROCHLORIDE 5-10MG CAPSULE] 30 Capsule 1 Sig: TAKE 1 CAPSULE BY MOUTH DAILY. There is no refill protocol information for this order documented in this encounter Plan of Treatment Upcoming Encounters Date Type Department Care Team (Late st Contact Info) Description 09/09/2024 11:00 AM SOLAR SALES CONSULTANT Office Visit [facility] Medical Group - Primary Care [address] [address] Provider, [facility] 10/16/2024 11:00 AM SOLAR SALES CONSULTANT Office Visit [facility] Medical [facility] - Internal Medicine [facility] [address] [place] [address] Emmett Carrizales MD [address] [place] [address] documented as of this encounter Visit Diagnoses Not on filedocumented in this encounter Additional Health Concerns Assessment Noted Time PHQ-9 Depression Total Score: 0 06/01/20 21 3:00 PM CDT documented as of this encounter Care Teams Lawn Mower Relationship Specialty Start Date End Date Emmett Carrizales MD [address] [place] [address] PCP - General Internal Medicine 06/29/15 Karolyn Tobar, RN [place] Speed Belt Sander 06/07/23 09/12/23 Karolyn Tobar RN [place] Nurse Speed Belt Sander 06/07/23 Ifrah Whitfield APRN, RADIO BOARD OPERATOR #[address] [address] Nurse Practitioner Advanced Practice Nurse 03/06/22 documented as of this encounter
--- OUTSIDE RECORDS SUMMARY | 2024-09-04 14:22 | XMS_ITS | Encounter Summary ---
Author Organization [facility] Address [address] [place] [address] Phone Care Team Providers Care International Editorial Producer Name Role Phone Emmett Carrizales MD Primary Care Provider [phone] Karolyn Tobar RN Unavailable Unavailable Karolyn Tobar RN Unavailable Unavailable Ifrah Whitfield APRN, QUENCHING CAR OPERATOR Unavailable [phone] Reason for Visit * Reason Comments Medication Refill Encounter Details Date Type Department Care Team (Late st Contact Info) Description 05/11/2023 Refill [facility] Emergency 1 [place] [address] Emmett Carrizales MD [address] [place] [address] Medication Refill Social History Tobacco Use Types [...] AM CDT documented as of this encounter Plan of Treatment Upcoming Encounters Date Type Department Care Team (Late st Contact Info) Description 09/09/2024 11:00 AM CENTRAL OFFICE OPERATOR Office Visit [facility] Medical Group - Primary Care [address] [address] Provider, [facility] 10/16/2024 11:00 AM CENTRAL OFFICE OPERATOR Office Visit [facility] Medical [facility] - Internal Medicine [facility] [address] [place] [address] Emmett Carrizales MD [address] [place] [address] documented as of this encounter Visit Diagnoses Not on filedocumented in this encounter Additional Health Concerns Assessment Noted Time PHQ-9 Depression Total Score: 0 06/01/20 21 3:00 PM CDT documented as of this encounter Care Teams International Editorial Producer Relationship Specialty Start Date End Date Emmett Carrizales MD [address] [place] [address] PCP - General Internal Medicine 06/29/15 Karolyn Tobar, RN [place] Manager Infrastructure 06/07/23 09/12/23 Karolyn Tobar, RN [place] Nurse Manager Infrastructure 06/07/23 Ifrah Whitfield APRN, QUENCHING CAR OPERATOR #2 [facility] [address] [place] [address] Nurse Practitioner Advanced Practice Nurse 03/06/22 documented as of this encounter
--- OUTSIDE RECORDS SUMMARY | 2024-09-04 14:22 | XMS_ITS | Encounter Summary ---
Author Organization [facility] Address [address] [place] [address] Phone Care Team Providers Care Prison Guard Name Role Phone Emmett Carrizales MD Primary Care Provider [phone] Karolyn Tobar RN Unavailable Unavailable Ifrah Whitfield APRN, PRIMER INSERTING MACHINE ADJUSTER Unavailable [phone] Encounter Details Date Type Department Care Team (Late st Contact Info) Description 04/23/2024 [facility] Scheduling [address] [place] [address] Emmett Carrizales MD [address] [place] [address] Social History Tobacco Use Types Packs/Day Years Used Date Smoking Tobacco: Never Passive Smoke Exposure: Never Smokeless Tobacco: Never Alcohol Use Standard Drinks/Week Comments Not Currently 0 (1 standard drink = 0.6 oz pur e alcohol) [facility] Utilities Answer Date Recorded In the past 12 months has e electric, gas, oil, or water company threatened to shut off services in your home? No 09/13/2023 Social Connection and Isolat ion Panel [NHANES] Answer Date Recorded In a typical week, how many times do you talk on the phone with family, friends, or neighbors? More than three times a week 09/13/2023 How often do you get togethe r with friends or relatives? More than three times a week 09/13/2023 How often do you attend chur or spiritism services? Never 09/13/2023 Do you belong to any clubs o r organizations such as synagogue groups, unions, fraternal or athletic groups, or school groups? No 09/13/2023 How often do you attend meet ings of the clubs or organizations you belong to? Never 09/13/2023 Are you , , di vorced, , never , or living with a partner? 09/13/2023 AUDIT-C Answer Date Recorded Q1: How often do you have a drink containing alcohol? Never 09/13/2023 Q2: How many drinks containi ng alcohol do you have on a typical day when you are drinking? Patient does not drink Q3: How often do you have si x or more drinks on one occasion? Never 09/13/2023 Overall Financial Resource Strain (CARDIA) Answe r Date Recorded How hard is it for you to pa y for the very basics like food, housing, medical care, and heating? Not very hard 09/13/2023 PHQ-2 Answer Date Recorded Total Score - Questions 1-9 0 08/2023 [facility] - Occupational Stress Questionnaire Answer Date Recorded Do you feel stress - tense, restless, nervous, or anxious, or unable to sleep at night because your mind is troubled all the time - these days? Not at all 09/13/2023 Exercise Vital Sign Answer Date Recorde d On average, how many days pe r week do you engage in moderate to strenuous exercise (like a brisk walk)? 5 days 09/13/2023 On average, how many minutes do you engage in exercise at this level? 30 min 09/13/2023 Hunger Vital Sign Answer Date Recorded Within the past 12 months, y ou worried that your food would run out before you got the money to buy more. Never true 09/13/19 24 Within the past 12 months, t he food you bought just didn't last and you didn't have money to get more. Never true 09/13/2023 PRAPARE - Transportation Answer Date Re corded In the past 12 months, has l ack of transportation kept you from medical appointments or from getting medications? No 08/2023 In the past 12 months, has l ack of transportation kept you from meetings, work, or from getting things needed for daily living? No 09/13/2023 Housing Stability Vital Sign Answer David e Recorded In the last 12 months, was t here a time when you were not able to pay the mortgage or rent on time? No 09/13/2023 In the last 12 months, how many places have you lived? 1 09/13/2023 In the last 12 months, was t here a time when you did not have a steady place to sleep or slept in a long-term (including now)? No 09/13/2023 Education Answer Date Recorded What is the highest level of school you have completed or the highest degree you have received? 12th grade 11/23/2022 Sexually Active Control Partners Comments Yes Surgical Male Comments No Sex and Gender Information Value Date Recorded Sex Assigned at Not on file Legal Sex Female 12:30 AM CDT Gender Identity Not on file Sexual Orientation Not on file documented as of this encounter Plan of Treatment Upcoming Encounters Date Type Department Care Team (Late st Contact Info) Description 09/09/2024 11:00 AM STEAM ROLLER OPERATOR Office Visit [facility] Medical Group - Primary Care [address] [address] Provider, [facility] 10/16/2024 11:00 AM STEAM ROLLER OPERATOR Office Visit [facility] Medical [facility] - Internal Medicine [facility] [address] [place] [address] Emmett Carrizales MD [address] [place] [address] documented as of this encounter Goals Goal Patient Goal Type Associated Problems Recent Progress Patient-Stated? Author Prevent Falls and Injury Patient Goals On track(2024 11:16 AM STEAM ROLLER OPERATOR) Yes Karolyn Tobar, RN Note: Follow Up Date 09/2024 - add more outdoor lighting - always use handrails on the stairs - always wear low-heeled or flat shoes or slippers with nonskid soles - call the doctor if I am feeling too drowsy - keep a flashlight by the bed - keep my cell phone with me always - learn how to get back up if I fall - make an emergency alert plan in case I fall - chart picker clutter from the floors - use a nonslip pad with throw rugs, or remove them completely - use a cane or walker - use a nightlight in the bathroom - wear my glasses and/or hearing aid - attend therapy Why is this important? Most falls happen when it is hard for you to walk safely. Your balance may be off because of an illness. You may have pain in your knees, hip or other joints. You may be overly tired or taking medicines that make you sleepy. You may not be able to see or hear clearly. Falls can lead to broken bones, bruises or other injuries. There are things you can do to help prevent falling. Notes: 09/13/2023 Patient states she is feeling better. She has been attending physical therapy and that has helped improve balance. No walker or cane needed at this time. No new falls. 10/18/2023 Patient reports falling yesterday. She states that she was outside gardening and she tripped over a small pamella hernández. She denies hitting head. No other injuries. Reviewed fall precaution tips. 11/19/2023 She was recently diagnosed with a UTI. She states that she had to take 3 different antibiotics and her symptoms have finally cleared. She has been able to go bowling. No falls or worsening symptoms to report this month. Make and Keep All Appointments Patient Goals On track(2024 11:16 AM STEAM ROLLER OPERATOR) Yes Karolyn Tobar, RN Note: Follow Up Date 09/2024 - ask family or friend for a ride - call to cancel if needed - keep a calendar with prescription refill dates - keep a calendar with appointment dates Why is this important? Part of staying healthy is seeing the doctor for follow-up care. If you forget your appointments, there are some things you can do to stay on track. Notes: 10/18/2023 Reviewed upcoming appointments. Patient states that she has completed physical therapy. She completed follow up with . She states that she will be scheduled for surgery in December for toe correction. 11/19/2023 Reviewed upcoming appointments. She verbalizes understanding. She states that she will still undergo toe correction surgery in December. She states that her had heart surgery last month and she has been caring for him. Absence of Fall and Fall-Related Injury Care Plan Fall Risk (Fall Risk) On track(2024 11:14 AM STEAM ROLLER OPERATOR) Karolyn Wakefield RN Note: Evidence-based guidance: Assess fall risk using a validated tool when available. Consider balance and gait impairment, muscle weakness, diminished vision or hearing, environmental hazards, presence of urinary or bowel urgency and/or incontinence. Communicate fall injury risk to interprofessional healthcare team. Develop a fall prevention plan with the patient and family. Promote use of personal vision and auditory aids. Promote reorientation, appropriate sensory stimulation, and routines to decrease risk of fall when changes in mental status are present. Assess assistance level required for safe and effective self-care; consider referral for home care. Encourage physical activity, such as performance of self-care at highest level of ability, strength and balance exercise program, and provision of appropriate assistive devices; refer to rehabilitation therapy. Refer to community-based fall prevention program where available. If fall occurs, determine the cause and revise fall injury prevention plan. Regularly review medication contribution to fall risk; consider risk related to polypharmacy and age. Refer to pharmacist for consultation when concerns about medications are revealed. Balance adequate pain management with potential for oversedation. Provide guidance related to environmental modifications. Consider supplementation with Vitamin D. Notes: 09/13/23 reviewed fall prevention plan with patient today. She will notify office to report any falls. Fall prevention tips reviewed. 08/28/24 No recent falls. PT has been completed. documented as of this encounter Visit Diagnoses Not on filedocumented in this encounter Additional Health Concerns Active Problems Noted Date Diagnosed Date Fall Risk (Fall Risk) 09/13/2023 Assessment Noted Time PHQ-9 Depression Total Score: 0 09/13/19 24 1:30 PM STEAM ROLLER OPERATOR documented as of this encounter Care Teams Prison Guard Relationship Specialty Start Date End Date Ememtt Carrizales MD [address] [place] [address] PCP - General Internal Medicine 06/29/15 Karolyn Tobar, RN [place] Nurse Printing Shop Supervisor 06/07/23 Ifrah Whitfield, AIRAM, PRIMER INSERTING MACHINE ADJUSTER #[address] [address] Nurse Practitioner Advanced Practice Nurse 03/06/22 documented as of this encounter
--- OUTSIDE RECORDS SUMMARY | 2024-09-04 14:22 | XMS_ITS | Encounter Summary ---
Author Organization [facility] Address [address] [place] [address] Phone Care Team Providers Care Weight Control Lecturer Name Role Phone Emmett Carrizales MD Primary Care Provider [phone] Karolyn Tobar RN Unavailable Unavailable Ifrah Whitfield APRN, RANCH SUPERVISOR Unavailable [phone] Reason for Visit * Reason Comments Medication Refill Encounter Details Date Type Department Care Team (Late st Contact Info) Description 07/25/2024 Refill [facility] - Internal Medicine [facility] [address] [place] [address] Emmett Carrizales MD [address] [place] [address] Medication Refill Social History Tobacco Use Types Packs/Day Years Used Date Smoking Tobacco: Never Passive Smoke Exposure: Never Smokeless Tobacco: Never Alcohol Use Standard Drinks/Week Comments Not Currently 0 (1 standard drink = 0.6 oz pur e alcohol) [facility] Utilities Answer Date Recorded In the [...] 09/13/2023 How often do you attend chur ch or adventism services? Never 09/13/2023 Do you belong to any clubs o r organizations such as cheondoism groups, unions, fraternal or athletic groups, or [...] Total Score - Questions 1-9 0 08/2023 [facility] - Occupational Stress [...] place to sleep or slept in a senior care (including now)? No 09/13/2023 Education Answer Date [...] st Contact Info) Description 09/09/2024 11:00 AM AVIATION ELECTRONICS TECHNICIAN Office Visit [facility] - Primary Care [address] [address] Provider, [facility] 10/16/2024 11:00 AM AVIATION ELECTRONICS TECHNICIAN Office Visit [facility] - Internal Medicine [place] [address] [place] [address] Emmett Carrizales MD [address] [place] [address] documented as of this encounter Goals Goal Patient Goal Type Associated Problems Recent Progress Patient-Stated? Author Prevent Falls and Injury Patient Goals On track(2024 11:16 AM AVIATION ELECTRONICS TECHNICIAN) Yes Karolyn Tobar, RN Note: Follow Up [...] alert plan in case I fall - hot die picker clutter from the floors - use [...] Appointments Patient Goals On track(2024 11:16 AM AVIATION ELECTRONICS TECHNICIAN) Yes Karolyn Tobar, RN Note: Follow Up [...] Risk (Fall Risk) On track(2024 11:14 AM AVIATION ELECTRONICS TECHNICIAN) Karolyn Wakefield RN Note: Evidence-based guidance: Assess [...] Total Score: 0 09/13/19 24 1:30 PM AVIATION ELECTRONICS TECHNICIAN documented as of this encounter Care Teams Weight Control Lecturer Relationship Specialty Start Date End Date Emmett Carrizales MD [address] [place] [address] PCP - General Internal Medicine 06/29/15 Karolyn Tobar, RN [place] Nurse Leather Lacer 06/07/23 Ifrah Whitfield APRN, RANCH SUPERVISOR #[address] [address] Nurse Practitioner Advanced Practice Nurse 03/06/22 documented as of this encounter
--- OUTSIDE RECORDS SUMMARY | 2024-09-04 14:22 | XMS_ITS | Encounter Summary ---
Author Organization [facility] Address [address] [place] [address] Phone Care Team Providers Care Drain Layer Name Role Phone Emmett Carrizales MD Primary Care Provider [phone] Karolyn Tobar RN Unavailable Unavailable Ifrah Whitfield APRN, ELECTRICAL CAD DESIGNER Unavailable [phone] Reason for Visit * Reason Comments Medication Refill Encounter Details Date Type Department Care Team (Late st Contact Info) Description 10/30/2023 Refill [facility] - Internal Medicine [facility] [address] [place] [address] Emmett Carrizales MD [address] [place] [address] Medication Refill Social History Tobacco Use Types Packs/Day Years Used Date Smoking Tobacco: Never Passive Smoke Exposure: Never Smokeless Tobacco: Never Alcohol Use Standard Drinks/Week Comments Not Currently 0 (1 standard drink = 0.6 oz pur e alcohol) [facility] Utilities Answer Date Recorded In the past 12 months has [employer] electric, gas, oil, or water company threatened [...] often do you attend chur ch or shinto services? Never 09/13/2023 Do you belong to any clubs o r organizations such as latter day groups, unions, fraternal or athletic groups, or [...] Total Score - Questions 1-9 0 08/2023 [facility] - Occupational [...] place to sleep or slept in a penitentiary (including now)? No 09/13/2023 Education Answer Date [...] on file documented as of this encounter Miscellaneous Notes * Telephone Encounter - Shabnam Malave RN - 10/31/2023 8:50 AM CDT Medication failed the protocol, provider to review and approve the medication order if appropriate. Requested Prescriptions Pending Prescriptions Disp Refills Benzonatate 200 MG Capsule [Pharmacy Med Name: BENZONATATE 200MG CAPSULE] 42 Capsule 0 Sig: TAKE 1 CAPSULE BY MOUTH THREE (3) TIMES DAILY NEEDED FOR COUGH FOR UP TO 14 DAYS. Not Delegated - Anti-Tussives Protocol Failed - 10/30/2023 6:01 PM Failed - This refill cannot be delegated Passed - Visit with relevant provider in past 12 months or upcoming 90 days Recent Visits Date Type Provider Dept 10/11/23 Office Visit Emmett Carrizales MD [facility] 07/12/23 Office Visit Emmett Carrizales MD [facility] 06/07/23 Office Visit Emmett Carrizales MD [facility] 05/22/23 Office Visit Kori Hudson, PAC [facility] 04/11/23 Office Visit Emmett Carrizales MD [facility] 12/21/22 Office Visit Emmett Carrizales MD [facility] 11/23/22 Office Visit Kori Hudson, PAC [facility] Showing recent visits within past 365 days and meeting all other requirements Future Appointments Date Type Provider Dept 01/09/24 Appointment Emmett Carrizales MD [facility] Showing future appointments within next 90 days and meeting all other requirements documented in this encounter Plan of Treatment Upcoming Encounters Date Type Department Care Team (Late st Contact Info) Description 09/09/2024 11:00 AM CARDING MACHINE FEEDER Office Visit [facility] - Primary Care [address] [address] Provider, [facility] 10/16/2024 11:00 AM CARDING MACHINE FEEDER Office Visit [facility] Internal Medicine - [place] [address] [place] [address] Emmett Carrizales MD [address] [facility] [place] [address] documented as of this encounter Goals Goal Patient Goal Type Associated Problems Recent Progress Patient-Stated? Author Prevent Falls and Injury Patient Goals On track(2024 11:16 AM CARDING MACHINE FEEDER) Yes Karolyn Tobar, RN Note: Follow Up [...] alert plan in case I fall - metal pickling equipment operator clutter from the floors - use a [...] Appointments Patient Goals On track(2024 11:16 AM CARDING MACHINE FEEDER) Yes Karolyn Tobar, RN Note: Follow Up [...] Risk (Fall Risk) On track(2024 11:14 AM CARDING MACHINE FEEDER) Karolyn Wakefield RN Note: Evidence-based guidance: Assess [...] Total Score: 0 09/13/19 24 1:30 PM CARDING MACHINE FEEDER documented as of this encounter Care Teams Drain Layer Relationship Specialty Start Date End Date Emmett Carrizales MD [address] [place] [address] PCP - General Internal Medicine 06/29/15 Karolyn Tobar RN [place] Nurse Airport Operations Duty Manager 06/07/23 Ifrah Whitfield, SCIENTIFIC GLASS BLOWER, ELECTRICAL CAD DESIGNER #[address] [address] Nurse Practitioner Advanced Practice Nurse 03/06/22 documented as of this encounter
--- OUTSIDE RECORDS SUMMARY | 2024-09-04 14:22 | XMS_ITS | Encounter Summary ---
Author Organization [facility] Address [address] [place] [address] Phone Care Team Providers Care Scheme Technician Name Role Phone Emmett Carrizales MD Primary Care Provider [phone] Karolyn Tobar RN Unavailable Unavailable Ifrah Whitfield APRN, RELIEF PHARMACIST Unavailable [phone] Reason for Visit * Reason Comments Medication Refill Encounter Details Date Type Department Care Team (Late st Contact Info) Description 11/12/2023 Refill [facility] [address] [place] [address] Emmett Carrizales MD [address] [place] [address] Medication Refill Social History Tobacco Use Types Packs/Day Years Used Date Smoking Tobacco: Never Passive Smoke Exposure: Never Smokeless Tobacco: Never Alcohol Use Standard Drinks/Week Comments Not Currently 0 (1 standard drink = 0.6 oz pur e alcohol) [facility] Utilities Answer Date Recorded In the past 12 months has [employer] electric, gas, oil, or water company threatened [...] often do you attend chur ch or spiritism services? Never 09/13/2023 Do you belong to any clubs o r organizations such as christianity groups, unions, fraternal or athletic groups, or [...] Total Score - Questions 1-9 0 08/2023 [facility] - [...] place to sleep or slept in a chcf (including now)? No 09/13/2023 Education Answer Date [...] Telephone Encounter - Shabnam Malave RN - 11/12/2023 2:31 PM CDT Per nursing clinical judgement, provider to review and approve the medication(s) order(s) if appropriate. Requested Prescriptions Pending Prescriptions Disp Refills amLODIPine-benazepril (LOTREL) 5-10 MG Capsule [Pharmacy Med Name: AMLODIPINE BESYLATE/BENAZEPRIL HYDROCHLORIDE 5-10MG CAPSULE] 30 Capsule 5 Sig: TAKE 1 CAPSULE BY MOUTH DAILY. There is no refill protocol information for this order documented in this encounter Plan of Treatment Upcoming Encounters Date Type Department Care Team (Late st Contact Info) Description 09/09/2024 11:00 AM SUPERVISOR LINE DEPARTMENT Office Visit [facility] - Primary Care Access [facility] - [address] [address] Provider, [facility] 10/16/2024 11:00 AM SUPERVISOR LINE DEPARTMENT Office Visit [facility] - Internal Medicine - [place] [address] [place] [id number] Emmett Carrizales MD [address] [place] [address] documented as of this encounter Goals Goal Patient Goal Type Associated Problems Recent Progress Patient-Stated? Author Prevent Falls and Injury Patient Goals On track(2024 11:16 AM SUPERVISOR LINE DEPARTMENT) Yes Karolyn Tobar, RN Note: Follow Up [...] alert plan in case I fall - pick and shovel man clutter from the floors - use a [...] Appointments Patient Goals On track(2024 11:16 AM SUPERVISOR LINE DEPARTMENT) Yes Karolyn Tobar, RN Note: Follow Up [...] Risk (Fall Risk) On track(2024 11:14 AM SUPERVISOR LINE DEPARTMENT) No Karolyn Tobar, [place] Note: Evidence-based guidance: Assess fall risk using [...] Total Score: 0 09/13/19 24 1:30 PM SUPERVISOR LINE DEPARTMENT documented as of this encounter Care Teams Scheme Technician Relationship Specialty Start Date End Date Emmett Carrizales MD [address] [place] [address] PCP - General Internal Medicine 06/29/15 Karolyn Tobar RN [place] Nurse Supervisor Intelligence Analyst 06/07/23 Ifrah Whitfield APRN, RELIEF PHARMACIST #[address] [address] Nurse Practitioner Advanced Practice Nurse 03/06/22 documented as of this encounter
--- OUTSIDE RECORDS SUMMARY | 2024-09-04 14:22 | XMS_ITS | Clinical Summary ---
Author Organization [facility] Address [address] [place] [address] Phone Care Team Providers Care Classified Advertising Manager Name Role Phone RHIANNON DAI, EILEEN JJ Unavailable [phone] Reason for Visit and Chief Complaint * PHONE CALL Problems Includes: Problems addressed during this encounter and other active Problems All Visits Onset Date Resolved Date Provider Condition S tatus Depressive Disorder, Nos 04/13/2018 Active Last Documented On 3 5:51PM ; [facility] Adult Attention Deficit Hyperactivity Disorder 01/16/2017 Active Last Documented On 3 5:50PM ; [facility] Psychophysiological Insomnia 09/27/2016 Active Last Documented On 3 5:50PM ; [facility] Bipolar I Disorder 03/13/2015 Active Last Documented On 3 5:48PM ; [facility] Dementia 02/10/2015 Active Last Documented On 3 5:48PM ; [facility] Generalized Anxiety Disorder 02/10/2015 Active Last Documented On 3 5:48PM ; [facility] Mild Cognitive Impairment 02/10/2015 EILEEN VINCENT MD Active Last Documented On 3 5:01PM ; [facility] Restless Legs Syndrome 07/28/2013 Ac tive Last Documented On 3 5:48PM ; [facility] 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 EILEEN DE LA VEGA MD Active Last Documented On 3 5:01PM ; [facility] Hypothyroidism, unspecified 08/02/2012 Active Last Documented On 3 5:48PM ; [facility] Gastro-esophageal reflux disease without esophagitis 08/02 Active Last Documented On 3 5:48PM ; [facility] Fracture of Nasal Bones 08/02/2012 A ctive Last Documented On 3 5:42PM ; [facility] Hyperlipidemia, unspecified 08/02/2012 Active Last Documented On 3 5:48PM ; [facility] Essential (primary) hypertension 08/02/2012 Active Last Documented On 3 5:48PM ; [facility] Irritable bowel syndrome without diarrhea 08/02/2012 Active Last Documented On 3 5:48PM ; [facility] Plan of Treatment Future Appointments Date Time Location Provi itz [facility]ULT [facility] ESTABLISHED 12/24/2024 11:00AM [facility] VINCENT MD Last Documented On 5 4:04PM ; [facility] Assessments Includes: Assessments from this encounter No Assessments Recorded Medical Equipment - Implanted Devices Includes: Current Devices No Medical Equipment Recorded Medications Includes: Medications discussed during this encounter and other current Medications New / Renewed during this visit EILEEN VINCENT MD on 10/18/2023 Focalin 10 MG Oral Tablet Provider: EILEEN VINCENT MD 30 day supply: 30 tablet, 0 refills Diagnosis: Attention-deficit hyperactivity disorder, combined type 1 tablet every morning Pharmacy: [address] [address] - Last Documented On 12/19/2023 11:48AM By Radha Vincent MD ; [facility] Current Medications (continue as prescribed) busPIRone HCl 15 MG Oral Tablet 01/16/2024 Provider: EILEEN VINCENT MD Diagnosis: TAKE ONE TABLET BY MOUTH THREE TIMES a DAY Last Documented On 01/16/2024 10:52AM By Radha Vincent MD ; [facility] Mydayis 37.5 MG Oral Capsule Extended Release 24 Hour 01/01/2024 Provider: EILEEN VINCENT MD Diagnosis: Attention-defici t hyperactivity disorder, combined type TAKE ONE (1) CAPSULE BY MOUT H EACH MORNING Last Documented On 01/01/2024 5:57PM By Radha Vincent MD ; [facility] rOPINIRole HCl 2 MG Oral Tablet 12/19/2023 Provider: EILEEN VINCENT MD Diagnosis: Restless legs sy ndrome as directed 1 tablet at 5 pm in the evening for restless legs Last Documented On 12/19/2023 11:49AM By Radha Vincent MD ; [facility] Memantine HCl 5 MG Oral Tablet 12/12/2023 Provider: EILEEN VINCENT MD Diagnosis: Dem in oth dis c lassd elswhr,unsp sev,w/o beh/psych/mood/anx One tablet daily Last Documented On 12/12/2023 4:50PM By Radha Vincent MD ; [facility] rOPINIRole HCl 2 MG Oral Tablet 12/10/2023 Provider: VENTURA GERARDO Diagnosis: Last Documented On 12/19/2023 11:45AM By Radha Vincent MD ; [facility] Namzaric 28-10 MG Oral Capsule Extended Release 24 Hour 11/26/2023 Provider: EILEEN VINCENT MD Diagnosis: Dem in oth dis c lassd elswhr,unsp sev,w/o beh/psych/mood/anx TAKE ONE CAPSULE BY MOUTH EV HELLEN MORNING Last Documented On 11/26/2023 1:10PM By Radha Vincent MD ; [facility] Trintellix 10 MG Oral Tablet 11/13/2023 Provider: EILEEN VINCENT MD Diagnosis: Major depressive disorder, single episode, unspecified TAKE ONE (1) TABLET BY MOUTH DAILY Last Documented On 11/13/2023 10:08AM By Radha Vincent MD ; [facility] Belsomra 10 MG Oral Tablet 11/01/2023 Provider: EILEEN VINCENT MD Diagnosis: Psychophysiologi c insomnia DIRECTED 1 TABLET AT BEDT ELEAZAR NEEDED FOR SLEEP Last Documented On 11/01/2023 4:16PM By Radha Vincent MD ; [facility] buPROPion HCl ER (XL) 300 MG Oral Tablet Extended Release 24 Hour 08/24/2023 Provider: EILEEN VINCENT MD Diagnosis: Major depressive disorder, single episode, unspecified 1 tablet every morning Last Documented On 08/24/2023 10:15AM By Radha Vincent MD ; [facility] lamoTRIgine 150 MG Oral Tablet 08/24/2023 Provider: EILEEN VINCENT MD Diagnosis: TAKE ONE TABLET BY MOUTH TWO TIMES A DAY Last Documented On 08/24/2023 10:26AM By Radha Vincent MD ; [facility] Escitalopram Oxalate 20 MG Oral Tablet 08/24/2023 Provider: EILEEN VINCENT MD Diagnosis: Generalized anxi ety disorder TAKE ONE TABLET BY MOUTH DAILY Last Documented On 08/24/2023 10:16AM By Radha Vincent MD ; [facility] Ferrous Sulfate 325 (65 Fe) MG Oral Tablet 04/18/2023 Provider: Diagnosis: 1 tab every other day Last Documented On 04/18/2023 10:30AM By WISAM CASH ; [facility] Belsomra 10 MG Oral Tablet 03/19/2023 Provider: Diagnosis: Psychophysiologi c insomnia 1 tablet at bedtime as needed for sleep Last Documented On 03/19/2023 2:13PM By LETI WILSON ; [facility] Belsomra 10 MG OR TABS 09/27/2022 Provider: CISCO VINCENT MD Diagnosis: Psychophysiologi c insomnia DIRECTED - ONE (1) TAB AT BEDTIME NEEDED FOR SLEEP Last Documented On 12/09/2022 5:29PM By Radha Vincent MD ; [facility] Alendronate Sodium 70 MG OR TABS 06/19/2022 Provider : Diagnosis: 1 tab weekly Last Documented On 12/09/2022 5:29PM By WISAM CASH ; [facility] Levothyroxine Sodium 100 MCG OR CAPS 04/14/2020 Prov ider: Diagnosis: 1 tab daily Last Documented On 12/09/2022 5:29PM By WISAM CASH ; [facility] Pantoprazole Sodium 40 MG OR TBEC 11/15/2019 Provide r: Diagnosis: 1 tab daily Last Documented On 12/09/2022 5:29PM By WISAM CASH ; [facility] Azelastine HCl 0.15% NA SOLN 08/21/2019 Provider: Diagnosis: 2 sprays in each nostril twice a day Last Documented On 12/09/2022 5:29PM By WISAM CASH ; [facility] Fluticasone Propionate 50 MCG/ACT NA SUSP 07/25/2018 Provider: Diagnosis: 2 sprays in each nostril daily Last Documented On 12/09/2022 5:29PM By WISAM CASH ; [facility] amLODIPine Besy-Benazepril HCl 5-10 MG OR CAPS 016 Provider: Diagnosis: 1 daily Last Documented On 12/09/2022 5:29PM By WILMER REDDY LPN ; [facility] Lipitor 20 MG OR TABS 11/10/2015 Provider: Diagnosis: 1 tablet every evening Last Documented On 12/09/2022 5:29PM By WILMER REDDY LPN ; [facility] Lasix 20 MG OR TABS 11/10/2015 Provider: Diagnosis: 1 tablet every morning Last Documented On 12/09/2022 5:29PM By WILMER REDDY LPN ; [facility] Aspirin 81 MG OR TABS 11/10/2015 Provider: Diagnosis: 1 tablet daily Last Documented On 12/09/2022 5:29PM By WILMER REDDY LPN ; [facility] Past Medications on file Dicyclomine HCl 10 MG Oral Capsule 09/14/2023 - 2023 Provider: Diagnosis: 1 capsule bid Last Documented On 09/14/2023 11:16AM By WISAM CASH ; [facility] hydrOXYzine HCl 25 MG Oral Tablet 04/09/2023 - 06/08/2023 Provider: EILEEN CONNORS MD Diagnosis: 1 TAB a DAY NEEDED ONLY FOR ITCHING/ANXIETY Last Documented On 04/09/2023 12:08PM By Radha Vincent MD ; [facility] hydrOXYzine HCl 25 MG OR TABS 10/08/2020 - 11/07/2020 Provider: EILEEN VINCENT MD Diagnosis: Generalized anxi ety disorder as directed - 1 tab a day as needed for agitation/anxiety Last Documented On 12/09/2022 5:29PM By Radha Vincent MD ; [facility] LaMICtal 150 MG OR TABS 09/24/2018 - 09/27/2018 Provider: EILEEN VINCENT MD Diagnosis: Bipolar disorder , unspecified One tablet twice a day Last Documented On 12/09/2022 5:29PM By Radha Vincent MD ; [facility] Atorvastatin Calcium 20 MG OR TABS 01/28/2013 - 2012 Provider: Diagnosis: Last Documented On 12/09/2022 5:29PM By TERRI CASH ; [facility] Medications Administered Includes: Administered Medications [...] esolved Last Documented On 9 1:33PM ; [facility] Sulfa Antibiotics Allergy 08/02/2012 A ctive Last Documented On 4 11:08AM ; [facility] Note: Imported from external source. Neupro Allergy rash 10/23/2013 Active Last Documented On 4 11:08AM ; [facility] Note: Imported from external source. Encounters Encounter Provider Location Date Check-In Time Check-Out Time Diagnosis * PHONE CALL EILEEN VINCENT MD [facility] 4 2:36PM 11:59PM Insurance Includes: Active Insurance Policies Plan Name Member ID Group # Subscriber Relationship Effect kofi Dates 1 - [facility]3][employer] [id number] LANA DARBY Self 2 - [facility] [id number] INGR[employer] DARBY J 0 - Unknown Clinical Notes Includes: Clinical Notes from this encounter * Progress note Date Encounter Last Documented by 10/18/2023 * PHONE CALL Last documented on 10/22/2023; 8:51 AM, EILEEN VINCENT MD; [facility] Active Problems & Conditions - [...] Concern: reason for call: Patient calling. She had an appointment with Dr. Carrizales and mentioned to him that she is having a lot of diarrhea. Dr. Carrizales told her that the Namzaric could be causing the diarrhea. Lana would like to talk to Dr. Vincent about possibly stopping the Namzaric or getting something else in it's place. pt phone # for return call: [phone] date/initials: 10/18/23 bk Current Medication - Alendronate Sodium 70 [...] PREVIOUS PSYCHIATRIC HOSPITALIZATION: She was hospitalized at [facility] in 2008 due to depression; she said that she was suicidal then. She was also hospitalized at [facility] at least twice from [id number]. She said again she could not remember the dates. PREVIOUS PSYCHIATRIC TREATMENT: She was under the care of Dr. Arciniega in [place]. PREVIOUS PSYCHIATRIC MEDICATIONS: Lexapro 20mg once a day Namenda 10 mg twice a day Aricept 10mg once a day Wellbutrin SR 100 mg in the morning Lamictal 200 mg a day Ativan 1 mg three times a day. Fetzima-- stopped August 2014-- caused incontinence Allergies - Neupro Reaction: rash - Sulfa Antibiotics Plan StartCited - Attention-deficit hyperactivity disorder, combined type Focalin 10 MG tablet 1 tablet every morning, 30 days, 0 refills EndCited StartCited - Other PHY ORDER/COMMENT I called Lana and told her that she has been on Namzaric for > 15 years even before I became her psychiatrist and she never mentioned of any diarrhea for all those years so more than likely it is NOT the Namzaric but to give Dr. Carrizales the benefit of the doubt, she may stop it for a week and see what happens. She was asked to call me in a week. Pt voiced understanding and appreciated the call. PHY ORDER/COMMENT Can you call her pharmacist to disregard the Focalin script since that was an error on my part. EndCited
--- OUTSIDE RECORDS SUMMARY | 2024-09-04 14:22 | XMS_ITS | Clinical Summary ---
Author Organization [facility] Address [address] [place] [address] Phone Care Team Providers Care Purchase Order Checker Name Role Phone Emmett Carrizales MD Primary Care Provider [phone] Karolyn Tobar RN Unavailable Unavailable Ifrah Whitfield APRN, NURSE ESTHETICIAN Unavailable Allergies Active Allergy Reactions Criticality Noted Date Comments Latex Hives,Rash Medium 06/29/2015 Sulfa Antibiotics Rash 06/29/2015 Adhesive Tape Hives,Rash Medications buPROPion (WELLBUTRIN) 300 MG TABLET SR 24 HR XL tabletIndications :Major Depressive Disorder Take 300 mg by mouth every morning. Indications: Major Depressive Disorder Active escitalopram (LEXAPRO) 20 MG TabletIndications :Generalized Anxiety Disorder,Major Depressive Disorder Take 20 mg by mouth daily. Indications: Generalized Anxiety Disorder, Major Depressive Disorder Active lamoTRIgine (LAMICTAL) 150 MG TabletIndications :Bipolar Mood Disorder Take 150 mg by mouth 2 times daily. Indications: Manic-Depression Active dicyclomine (BENTYL) 10 MG CapsuleIndication s:Irritable Bowel Syndrome Take 10 mg by mouth 3 times daily. Indications: Irritable Bowel Syndrome Active acetaminophen (TYLENOL) 325 MG TabletIndications :Fever,Pain Take 1 Tab by mouth every 6 hours as needed for Pain or Fever (for temperature greater than 100.4 F). Do not exceed 4000 mg of acetaminophen in 24 hour from all sources. 03/08/20 16 Active busPIRone (BUSPAR) 15 MG TabletIndications :Anxiety Disorder,Major Depressive Disorder Take 15 mg by mouth 3 times daily. Indications: Anxiety Disorder, Major Depressive Disorder Active pantoprazole (PROTONIX) 40 MG Tablet Delayed ResponseIndicatio ns:Peptic Ulcer Take 40 mg by mouth daily. Indications: Peptic Ulcer Active Amphet-Dextroamph et 3-Bead ER (Mydayis) 37.5 MG CAPSULE SR 24 HRIndications:Att ention Deficit Hyperactivity Disorder Take 37.5 mg by mouth daily. Indications: Attention Deficit Hyperactivity Disorder Active Trintellix 10 MG TabletIndications :Major Depressive Disorder Take 10 mg by mouth daily. Indications: Major Depressive Disorder 07/17/20 22 Active aspirin EC 81 MG Tablet Delayed Response Aspirin 81 MG Oral Tablet QTY: 30 tablet Days: 30 Refills: 0 Written: 11/10/15 Patient Instructions: 1 tablet daily 11/10/19 16 Active ciclopirox (PENLAC) 8 % Solution Apply to affected nails once a day as directed 6.6 mL 5 12/22/19 23 Active alendronate (FOSAMAX) 70 MG Tablet 02/15/20 23 Active ibuprofen (MOTRIN) 200 MG Tablet Take 400 mg by mouth. Active Calcium Carb-Cholecalcife rol ([facility] Calcium 600 & Vitamin D3) 600-20 MG-MCG Tablet Take 1 Tablet by mouth daily. 30 Tablet 3 07/27/20 23 Active albuterol 108 (90 Base) MCG/ACT Aerosol SolutionIndicatio ns:Chronic Obstructive Pulmonary Disease TAKE ONE (1) TO TWO (2) PUFFS BY INHALATION EVERY SIX (6) HOURS NEEDED FOR WHEEZING OR COUGH. 8.5 g 1 08/23/19 24 Active azelastine (ASTELIN) 0.1 % Solution TWO (2) SPRAYS BY NASAL ROUTE TWO (2) TIMES DAILY. 30 mL 3 08/23/19 24 Active memantine (NAMENDA) 5 MG Tablet Take 5 mg by mouth daily. Active rOPINIRole (REQUIP) 2 MG TabletIndications :Restless Leg Syndrome Take 1 Tablet by mouth nightly. Indications: Restless Leg Syndrome 30 Tablet 01/09/20 24 Active amLODIPine-benaze pril (LOTREL) 5-10 MG Capsule TAKE 1 CAPSULE BY MOUTH DAILY. 30 Capsule 5 05/12/20 24 Active Ferrous Sulfate (Iron) 28 MG Tablet Take by mouth. Activ e hydrOXYzine (ATARAX) 25 MG Tablet 06/15/20 21 Active Belsomra 10 MG Tablet 05/20/20 24 Active Memantine HCl-Donepezil HCl (Namzaric) 28-10 MG CAPSULE SR 24 HR 03/28/20 24 Active methocarbamol (ROBAXIN) 500 MG Tablet Take 500 mg by mouth. 01/29/20 24 Active triamcinolone (KENALOG) 0.1 % Ointment Apply thin film to affected area(s) twice daily until healed. 80 g 3 05/29/20 24 Active furosemide (LASIX) 20 MG Tablet TAKE 1 TABLET BY MOUTH DAILY. 90 Tablet 06/18/20 24 Active levothyroxine (SYNTHROID) 100 MCG TabletIndications :Hypothyroidism TAKE ONE (1) TABLET BY MOUTH EVERY DAY 90 Tablet 06/18/20 24 Active atorvastatin (LIPITOR) 20 MG Tablet TAKE ONE (1) TABLET BY MOUTH DAILY LAST REFILL UNTIL SEEN 90 Tablet 06/18/20 24 Active Misc. Devices MiscIndications:B ilateral lower extremity edema Eugene hose- 1 pair DX- [place] LE Edema (R60.0) 1 Each 07/16/20 24 Active Misc. Devices Misc Portable Oxygen Tank-1 Use O2 at 2 LPM continuously vis nasal canula during sleep. DX- Nocturnal Hypoxemia (G47.34); Central Sleep apnea ( G47.31) 1 Each 07/16/20 24 Active fluticasone (FLONASE) 50 MCG/ACT Suspension 1 SPRAY BY NASAL ROUTE IN THE MORNING AND AT BEDTIME. 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 Rhinitis Nasal turbinate hypertrophy GERD without esophagitis Malocclusion Obstructive sleep apnea Overview (07/08/2015): nonorganic Periodic limb movement sleep disorder Chronic rhinitis Central sleep apnea Resolved Problems Problem Noted Date Diagnosed Date Resolved Date Closed 3-part fracture of pr oximal end of left humerus 11/15/2022 11/27/2023 Closed 3-part fracture of pr oximal humerus, left, initial encounter 11/15/2022 11/27/2023 Temporomandibular joint-pain -dysfunction syndrome 11/27/2023 Encounters Date Type Department Care Team Description 08/27/2024 Patient Outreach [facility] [address] [place] [phone] Karolyn Tobar, RN Care Management ([facility]) 08/11/2024 Refill [facility] [address] [place] [address] Emmett Carrizales MD Medication Refill 07/31/2024 Patient Outreach [facility] [address] [place] [id number] Karolyn Tobar, RN Care Management ([facility]) 07/25/2024 Refill [facility] [place] [address] Emmett Carrizales MD Medication Refill 07/16/2024 11:30 AM CURBING STONECUTTER Office Visit [facility] [place] [address] Emmett Carrizales MD Bilateral lower extremity edema (Primary Dx); Nocturnal hypoxemia; Central sleep apnea; Essential hypertension, benign Discharge Disposition: Discharged to home or Selfcare 07/16/2024 Travel 07/14/2024 Documentation Only [facility] [place] [address] Emmett Carrizales MD 06/30/2024 Patient Outreach [facility] [address] [place] [phone] Karolyn Tobar, RN Care Management ([facility]) 06/18/20[facility] [address] [place] [address] Emmett Carrizales MD Medication Refill 06/13/2024 [facility] [address] [place] [place] [address] Emmett Carrizales MD 06/11/2024 [facility] [address] [facility] [place] [address] Emmett Carrizales MD from Last 3 Months Immunizations Immunization Administration Dates Next Due Covid-19, Mrna, Lnp-s, PF, 1 00 mcg/0.5 mL Dose (Moderna) 11/18/2020,10/19/2020 Influenza Vaccine, MDCK,quad rivalent, pres free 06/15/2022,06/14/2021,05/18/2020,05/19 Influenza Vaccine, Quadrivalent, PF 05/10/2022 Influenza, Injectable, Mdck, Preservative Free 05/19/2019 Influenza, Quadrivalent, Adjuvanted 05/22/2023 Influenza, Seasonal, Injecta ble, Undefined 05/15/2017 Influenza, Trivalent, Adjuvanted, PF 06/30/2019 Pneumococcal Vaccine - 13 Valent 06/14/2021 Pneumococcal conjugate PCV20 , polysaccharide [id number] conjugate, adjuvant, PF 06/15/2022 TDAP Vaccine 08/08/2021 Zoster Vaccine Recombinant 08/15/2022,03/14/2022 Family History Medical History Relation Name Comments Emphysema Father Heart Disease Father Cancer Mother No Known Problems Sister 1 Relation Name Status Comments Brother Father Mother Sister 1 Alive Sister 2 Social History Tobacco Use Types Packs/Day Years Used Date Smoking Tobacco: Never Passive Smoke Exposure: Never Smokeless Tobacco: Never Tobacco Cessation:Counseling Given: No Alcohol Use Standard Drinks/Week Comments Not Currently 0 (1 standard drink = 0.6 oz pur e alcohol) [facility] Utilities Answer Date Recorded In the past 12 months has [employer], oil, or water company threatened to shut [...] often do you attend chur ch or congregation services? Never 09/13/2023 Do you belong to any clubs o r organizations such as methodist groups, unions, fraternal or athletic groups, or [...] Total Score - Questions 1-9 0 08/2023 [facility] - Occupational Stress [...] place to sleep or slept in a mcc (including now)? No 09/13/2023 Education Answer Date [...] on file Sexual Orientation Not on file Last Filed Vital Signs Vital Sign Reading Time Taken Comments Blood Pressure 136/82 07/16/2024 11:12 AM CURBING STONECUTTER Pulse 78 07/16/2024 11:12 AM CURBING STONECUTTER Temperature 36.4 ??C (97.5 ??F) 07/16/2024 11:[address] Respiratory Rate 12 05/29/2024 9:02 AM CDT Oxygen Saturation 98% 07/16/2024 11:12 AM CURBING STONECUTTER Inhaled Oxygen Concentration - - Weight 72.1 kg (159 lb) 07/16/2024 11:12 AM CURBING STONECUTTER Height 157.5 cm (5' 2 ) 07/16/2024 11:12 AM CURBING STONECUTTER Body Mass Index 29.08 07/16/2024 11:12 AM CURBING STONECUTTER Plan of Treatment Upcoming Encounters Date Type Department Care Team (Late st Contact Info) Description 09/09/2024 11:00 AM CURBING STONECUTTER [facility] Visit [facility] Access [address] [place] [address] Provider, [facility] 10/16/2024 11:00 AM CURBING STONECUTTER Office Visit [facility] - Internal Medicine [address] [place] [address] Emmett Carrizales MD [address] [place] [address] Health Maintenance Due Date Last Done Comments Hepatitis C Virus (HCV) Screening 1950 Cologuard 2002 Immunochemical Fecal Occult Blood 2002 SARS-COV-2 Immunization ( season) 2024 03/23/2021, 11/18/2020, 11/02/2020, Additional history exists Colonoscopy 12/01/2025 12/01/2020 Colorectal Cancer Screening 12/01/2025 Mammogram 03/17/2026 03/17/2024, 11/14/2021 DEXA Bone Density 07/30/2026 07/30/2024, , 04/14/2022 Respiratory Syncytial Virus (RSV) Immunization (Adult) (1 - 1-dose 75+ series) 2027 Td Immunization Every 10 Years (Adults With 1 Tdap) 08/08/2031 08/08/2021 12/01/2020 DTaP/Tdap/Td Immunization Discontinued 08/08/2021 Pneumococcal Immunization (50+ years) Completed 06/15/2022, 06/14/2021 Pneumococcal Immunization Combined Discontinued 06/15/2022, 06/14/2021 Influenza Immunization Discontinued , 05/22/2023, 06/15/2022, Additional history exists Zoster Immunization Completed 10/05/2023, 06/26/2023, 08/15/2022, Additional history exists Hepatitis B Immunization Aged Out No longer eligible based on patient's age to complete this topic Meningococcal Immunization (ACWY) Aged Out No longer eligible based on patient's age to complete this topic Rotavirus Immunization Aged Out No lo nger eligible based on patient's age to complete this topic Goals Goal Patient Goal Type Associated Problems Recent Progress Patient-Stated? Author Prevent Falls and Injury Patient Goals On track(2024 11:16 AM CURBING STONECUTTER) Yes Karolyn Tobar RN Note: Follow Up Date 09/2024 - [...] alert plan in case I fall - picker/puller clutter from the floors - use a [...] Appointments Patient Goals On track(2024 11:16 AM CURBING STONECUTTER) Yes Karolyn Tobar RN Note: Follow Up Date 09/2024 - [...] Risk (Fall Risk) On track(2024 11:14 AM CURBING STONECUTTER) Karolyn Wakefield RN Note: Evidence-based guidance: Assess [...] No recent falls. PT has been completed. Medical Devices Implanted Type Area Sharepoint Manager Device Identifier Shelf Expiration Date Model / Serial / Lot K-Wire Plain .062 - [id number] Implanted:Qty : 1 on 08/01/2017 by Killian Reese DPM at [facility] IMPLANT Left: Foot [employer] KD-062-9 / KD-062-9 / [id number] Plate Humeral Proximal Left Distal Holex3 - [id number] Implanted:Qty : 1 on 11/15/2022 by Gamaliel Yi MD at [facility] IMPLANT Left: Humerus [employer] 12/10/2022 [id number] / [id number] / N/A Screw Bone Locking 4mm 26mm Self-Tapping - [id number] Implanted:Qty : 1 on 11/15/2022 by Gamaliel Yi MD at [facility] IMPLANT Left: Humerus [employer] 12/10/2022 [id number] / [id number] / [id number] Screw Bone Locking 4mm 40mm Self-Tapping - [id number] Implanted:Qty : 1 on 11/15/2022 by Gamaliel Yi MD at [facility] IMPLANT Left: Humerus [employer] 12/10/2022 [id number] / [id number] / N/A Screw Bone 3.5mm 26mm Ti Cortical Self-Tapping Axsos - [id number] Implanted:Qty : 1 on 11/15/2022 by Gamaliel Yi MD at [facility] IMPLANT Left: Humerus [employer] 12/10/2022 [id number] / [id number] / N/A Screw Bone 3.5mm 28mm Ti Cortical Self-Tapping Axsos - [id number] Implanted:Qty : 1 on 11/15/2022 by Gamaliel Yi MD at [facility] IMPLANT Left: Humerus [employer] 12/10/2022 [id number] / [id number] / N/A 4mm Locking Screw Implanted:Qty : 3 on 11/15/2022 by Gamaliel Yi MD at [facility] Left: Humerus PHILLIP 12/10/2022 [id number] / [id number] / N/A 4mm Locking Screw Implanted:Qty : 1 on 11/15/2022 by Gamaliel Yi MD at [facility] Left: Humerus PHILLIP 12/10/2022 [id number] / [id number] / N/A Locking Screw Implanted:Qty : 1 on 11/15/2022 by Gamaliel Yi MD at [facility] 12/10/2022 [id number] / [id number] / N/A 4mm Locking Screw Implanted:Qty : 1 on 11/15/2022 by Gamaliel Yi MD at [facility] Left: Humerus PHILLIP 12/10/2022 [id number] / [id number] / N/A 4mm Locking Screw Implanted:Qty : 1 on 11/15/2022 by Gamaliel Yi MD at [facility] Left: Humerus PHILLIP 12/10/2022 [id number] / [id number] / N/A Procedures Procedure Name Priority Date/Time Associated Diagnosis Comments CULTURE, URINE 09/01/2024 12:00 AM CURBING STONECUTTER BONE DENSITY GENERIC 07/30/2024 12:00 AM CURBING STONECUTTER IN-HOME CONSULT 06/16/2024 12:00 AM CURBING STONECUTTER PHYSICAL THERAPY CONSULT 06/10/2024 12:00 AM CDT from Last 3 Months Results * CULTURE, URINE (09/01/2024 12:00 AM CURBING STONECUTTER) 09/01/2024 us Provider Scan MICROBIOLOGY - GENERAL ORDERABLE S Final Result Performing Organization Address City/[facility] Co de Phone Number SCAN * BONE DENSITY GENERIC (07/30/2024 12:00 AM CURBING STONECUTTER) 07/30/2024 us Provider Scan IMG DEXA ORDERABLES Final Result Performing Organization Address City/[facility] Co de Phone Number SCAN * IN-HOME CONSULT (06/16/2024 12:00 AM CURBING STONECUTTER) 06/16/2024 us Provider Scan GENERIC SCAN ORDERS CONSULT Moira l Result SCAN * PHYSICAL THERAPY CONSULT (06/10/2024 12:00 AM CDT) 06/10/2024 Kori Hudson PAC GENERIC SCAN ORDE RS CONSULT Final Result SCAN from Last 3 Months Additional Health Concerns Active Problems Noted Date Diagnosed Date Fall Risk (Fall Risk) 09/13/2023 Insurance MEDICARE C [facility] Advance Directives * Full Code (Latest Code Status on File) Date Activated Date Inactivated Comments 11/28/2022 1:24 PM 12/15/2022 8:38 AM Care Teams Purchase Order Checker Relationship Specialty Start Date End Date Emmett Carrizales MD [address] [place] [address] PCP - General Internal Medicine 06/29/15 Karolyn Tobar, RN [place] Nurse Agricultural Loan Officer 06/07/23 Ifrah Whitfield APRN, NURSE ESTHETICIAN #[address] [address] Nurse Practitioner Advanced Practice Nurse 03/06/22
--- OUTSIDE RECORDS SUMMARY | 2024-09-04 14:22 | XMS_ITS | Encounter Summary ---
Author Organization [facility] Address [address] [place] [address] Phone Care Team Providers Care Appeals Analyst Name Role Phone Emmett Carrizales MD Primary Care Provider [phone] Karolyn Tobar RN Unavailable Unavailable Ifrah Whitfield APRN, LUMBER MATERIAL HANDLER Unavailable [phone] Reason for Visit * Reason Comments Medication Refill Encounter Details Date Type Department Care Team (Late st Contact Info) Description 12/10/2023 Refill [facility] - [facility] [address] [place] [address] Emmett Carrizales MD [address] [place] [address] Medication Refill Social History Tobacco Use Types Packs/Day Years Used Date Smoking Tobacco: Never Passive Smoke Exposure: Never Smokeless Tobacco: Never Alcohol Use Standard Drinks/Week Comments Not Currently 0 (1 standard drink = 0.6 oz pur e alcohol) [facility] Utilities Answer Date Recorded In the past 12 months has [email or web address], gas, oil, or water company threatened [...] often do you attend chur ch or confucianism services? Never 09/13/2023 Do you belong to any clubs o r organizations such as lutheran groups, unions, fraternal or athletic groups, or [...] Telephone Encounter - Shabnam Malave RN - 12/10/2023 1:26 PM CDT Medication(s) refilled and signed per [facility] Chronic Medication Refill Standing Order for Pediatricand Adult Patients. Requested Prescriptions Pending Prescriptions Disp Refills levothyroxine (SYNTHROID) 100 MCG Tablet [Pharmacy Med Name: LEVOTHYROXINE SODIUM 100MCG TABLET] 90Tablet 0 Sig: TAKE ONE (1) TABLET BY MOUTH EVERY DAY Thyroid Hormones Protocol Passed - 12/10/2023 9:39 AM Passed - Visit with relevant provider in past 12 months or upcoming 90 days Recent Visits Date Type Provider Dept 11/27/23 Office [facility] 10/11/23 Office Visit [facility] [place] 07/12/23 [facility] [place] [facility]23 Office Visit Emmett Carrizales MD [facility] [place] 05/22/23 [facility] [place] 04/11/23 Office Visit Emmett Carrizales MD [facility] [place] 12/21/22 Office Visit Emmett Carrizales MD [facility] [place] Showing recent visits within past 365 days and meeting all other requirements Future Appointments Date Type Provider Dept 01/09/24 Appointment Emmett Carrizales MD [facility] [place] Showing future appointments within next 90 days and meeting all other requirements Passed - Normal TSH in past 12 months TSH Date Value Ref Range Status 11/28/2023 0.441 0.300 - 5.000 mIU/L Final documented in this encounter Plan of Treatment Upcoming Encounters Date Type Department Care Team (Late st Contact Info) Description 09/09/2024 11:00 AM PHOTOGRAPHIC SUPERVISOR Office Visit [facility] - Primary Care [address] [address] Provider, [facility] 10/16/2024 11:00 AM PHOTOGRAPHIC SUPERVISOR Office Visit [facility] Internal Medicine [facility] [address] [place] [address] Emmett Carrizales MD [address] [facility] [address] [facility] [place] [address] documented as of this encounter Goals Goal Patient Goal Type Associated Problems Recent Progress Patient-Stated? Author Prevent Falls and Injury Patient Goals On track(2024 11:16 AM PHOTOGRAPHIC SUPERVISOR) Yes Karolyn Tobar, RN Note: Follow Up [...] alert plan in case I fall - bead picker clutter from the floors - use [...] Appointments Patient Goals On track(2024 11:16 AM PHOTOGRAPHIC SUPERVISOR) Yes Karolyn Tobar, RN Note: Follow Up [...] Risk (Fall Risk) On track(2024 11:14 AM PHOTOGRAPHIC SUPERVISOR) Karolyn Wakefield RN Note: Evidence-based guidance: Assess [...] Total Score: 0 09/13/19 24 1:30 PM PHOTOGRAPHIC SUPERVISOR documented as of this encounter Care Teams Appeals Analyst Relationship Specialty Start Date End Date Emmett Carrizales MD [address] [place] [address] PCP - General Internal Medicine 06/29/15 Karolyn Tobar RN [place] Nurse Sponge Hooker 06/07/23 Ifrah Whitfield, LABORATORY MACHINIST, LUMBER MATERIAL HANDLER [address] [place] [id number] Nurse Practitioner Advanced Practice Nurse 03/06/22 documented as of this encounter
--- OUTSIDE RECORDS SUMMARY | 2024-09-04 14:22 | XMS_ITS ---
Care Plan Created on: September 04, 2024 Lana Lockwood : 1950 Sex: Female Author Organization [facility] Address [address] [place] [address] Phone Care Team Providers Care Psychic Reader Name Role Phone Emmett Carrizales MD Primary Care Provider Karolyn Tobar RN Unavailable Unavailable Ifrah Whitfield APRN, LOW PRESSURE KETTLE OPERATOR Unavailable Active Problems Problem Noted Date Diagnosed Date [...] 11/15/2022 11/27/2023 Temporomandibular joint-pain -dysfunction syndrome 11/27/2023 Additional Health Concerns Active Problems Noted Date Diagnosed Date Fall Risk (Fall Risk) 09/13/2023 Goals Goal Patient Goal Type Associated Problems Recent Progress Patient-Stated? Author Prevent Falls and Injury Patient Goals On track(2024 11:16 AM REGISTERED PUBLIC SURVEYOR) Yes Karolyn Tobar RN Note: Follow Up [...] alert plan in case I fall - draft roller picker clutter from the floors - use [...] Appointments Patient Goals On track(2024 11:16 AM REGISTERED PUBLIC SURVEYOR) Yes Karolyn Tobar RN Note: Follow Up [...] Risk (Fall Risk) On track(2024 11:14 AM REGISTERED PUBLIC SURVEYOR) Karolyn Wakefield RN Note: Evidence-based guidance: Assess [...] No recent falls. PT has been completed. Interventions Care Plan Interventions Intervention Entry Date Outcome Identify and Manage Contributors to Fall Risk 09/13/2023 Note:Care Management Activities: - activities of daily living skills assessed - assistive or adaptive device use encouraged - barriers to physical activity or exercise identified - barriers to safety identified - fall prevention plan reviewed and updated - fear of falling, loss of independence and pain acknowledged - medication list reviewed - vision and/or hearing aid use promotedld Notes: 09/13/2023 risk factors reviewed and prevention tips discussed. No further questions or concerns at this time. 10/18/2023 patient reports falling yesterday. No injuries from fall. 11/19/2023 She denies falls. She is doing well. She is following fall safety tips. 12/21/2023 She completed hammer toe surgery and is doing well. No falls to report. She will follow up with surgeon in 1 week. 03/17/2024 She reports to be having problems with balance after surgery. She would be interested in external PT being ordered to help with strength and balance. 03/25/24 Referral placed for PT. No recent falls. 04/29/2024 referral sent to [facility] per patient request. 06/30/2024 She is feeling better. She states her ankle, back, and legs are better. No recent falls. Two more sessions of therapy left to go. 07/31/2024 She completed physical therapy. No recent falls. She is wearing compression stockings as advised. Related Goals and Interventions Goal Associated Intervent ions Absence of Fall and Fall-Related Injury Identify and Manage Contributors to Fall Risk
--- OUTSIDE RECORDS SUMMARY | 2024-09-04 14:22 | XMS_ITS | Encounter Summary ---
Author Organization [facility] Address [address] [place] [address] Phone Care Team Providers Care Reinsurance Claim Analyst Name Role Phone Emmett Carrizales MD Primary Care Provider [phone] Karolyn Tobar RN Unavailable Unavailable Ifrah Whitfield APRN, DRAWING INSTRUCTOR Unavailable [phone] Reason for Visit * Reason Comments Medication Refill Encounter Details Date Type Department Care Team (Late st Contact Info) Description 10/15/2023 Refill [facility] - Internal Medicine [facility] [address] [place] [id number] Kori Hudson, [facility] [address] [place] [address] Medication Refill Social History Tobacco Use Types Packs/Day Years Used Date Smoking Tobacco: Never Passive Smoke Exposure: Never Smokeless Tobacco: Never Alcohol Use Standard Drinks/Week Comments Not Currently 0 (1 standard drink = 0.6 oz pur e alcohol) [facility] Utilities Answer Date Recorded In the past 12 months has [employer] electric, gas, oil, or water company threatened [...] often do you attend chur ch or yazidism services? Never 09/13/2023 Do you belong to [...] Total Score - Questions 1-9 0 08/2023 [facility] Occupational Stress Questionnaire Answer [...] place to sleep or slept in a care home (including now)? No 09/13/2023 Education Answer Date [...] Telephone Encounter - Shabnam Malave RN - 10/15/2023 4:09 PM CST Medication(s) refilled and signed per [facility] Chronic Medication Refill Standing Order for Pediatricand Adult Patients. Requested Prescriptions Pending Prescriptions Disp Refills rOPINIRole (REQUIP) 2 MG Tablet [Pharmacy Med Name: ROPINIROLE HCL 2MG TABLET] 30 Tablet 0 Sig: TAKE 0.5 TABLETS BY MOUTH NIGHTLY. INDICATIONS: RESTLESS LEG SYNDROME Antiparkinson Dopaminergics and COMT Protocol Passed - 10/15/2023 2:50 PM Passed - Visit with relevant provider in the past 9 months or upcoming 90 days Recent Visits Date Type Provider Dept 10/11/23 Office Visit Emmett Carrizales MD [facility] [place] 07/12/23 Office Visit Emmett Carrizales MD [facility] [place] 06/07/23 Office Visit Emmett Carrizales MD [facility] [place] 05/22/23 Office Visit Kori Hudson, MARTÍN [facility] [place] 04/11/23 Office Visit Emmett Carrizales MD [facility] [place] Showing recent visits within past 270 days and meeting all other requirements Future Appointments Date Type Provider Dept 01/09/24 Appointment Emmett Carrizales MD [facility] [place] Showing future appointments within next 90 days and meeting all other requirements Passed - Blood pressure on record in past 12 months Clinician-entered: BP Readings from Last 3 Encounters: 10/11/23 126/72 07/12/23 122/70 06/07/23 122/70 Patient-entered: No data recorded HER CUTTER documented in this encounter Plan of Treatment Upcoming Encounters Date Type Department Care Team (Late st Contact Info) Description 09/09/2024 11:00 AM LEATHER CUTTER Office Visit [facility] - Primary Care [address] [address] Provider, [facility] 10/16/2024 11:00 AM LEATHER CUTTER Office Visit [facility] - Internal Medicine - [place] [address] [place] [address] Emmett Carrizales MD [address] [place] [address] documented as of this encounter Goals Goal Patient Goal Type Associated Problems Recent Progress Patient-Stated? Author Prevent Falls and Injury Patient Goals On track(2024 11:16 AM LEATHER CUTTER) Yes Karolyn Tobar, RN Note: Follow Up [...] alert plan in case I fall - picker feeder clutter from the floors - use a [...] Appointments Patient Goals On track(2024 11:16 AM LEATHER CUTTER) Yes Karolyn Tobar, RN Note: Follow Up [...] Risk (Fall Risk) On track(2024 11:14 AM LEATHER CUTTER) Karolyn Wakefield RN Note: Evidence-based guidance: Assess [...] Total Score: 0 09/13/19 24 1:30 PM LEATHER CUTTER documented as of this encounter Care Teams Reinsurance Claim Analyst Relationship Specialty Start Date End Date Emmett Carrizales MD [address] [place] [address] PCP - General Internal Medicine 06/29/15 Karolyn Tobar RN [place] Nurse Platform Software Engineer 06/07/23 Ifrah Whitfield, BLOOD BANK CREDIT CLERK, DRAWING INSTRUCTOR [address] [address] Nurse Practitioner Advanced Practice Nurse 03/06/22 documented as of this encounter
--- OUTSIDE RECORDS SUMMARY | 2024-09-04 14:22 | XMS_ITS ---
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 Phone RHIANNON DAI, EILEEN JJ Unavailable [phone] Problems Includes: Active, inactive, and resolved Problems All Visits Onset Date Resolved Date Provider Condition S tatus Depressive Disorder, Nos 04/13/2018 Active Last Documented On 3 5:51PM ; [facility] Adult Attention Deficit Hyperactivity Disorder 01/16/2017 Active Last Documented On 3 5:50PM ; [facility] Psychophysiological Insomnia 09/27/2016 Active Last Documented On 3 5:50PM ; [facility] Bipolar I Disorder 03/13/2015 Active Last Documented On 3 5:48PM ; [facility] Dementia 02/10/2015 Active Last Documented On 3 5:48PM ; [facility] Generalized Anxiety Disorder 02/10/2015 Active Last Documented On 3 5:48PM ; [facility] Mild Cognitive Impairment 02/10/2015 EILEEN VINCENT MD Active Last Documented On 3 5:01PM ; [facility] Persistent Insomnia 11/11/2013 Inact kofi Last Documented On 3 5:47PM ; [facility] Restless Legs Syndrome 07/28/2013 Ac tive Last Documented On 3 5:48PM ; [facility] Restless Legs Syndrome 07/28/2013 In active Last Documented On 3 5:46PM ; [facility] Nonorganic Sleep Apnea Obstructive 04/14/2013 Inactive Last Documented On 3 5:46PM ; [facility] 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 EILEEN DE LA VEGA MD Active Last Documented On 3 5:01PM ; [facility] Bipolar I Disorder, Most Recent Episode, Depressed 013 Inactive Last Documented On 3 5:44PM ; [facility] PRESENILE DEMENTIA 08/07/2012 Inacti ve Last Documented On 3 5:42PM ; [facility] Note: Probable dementia Hypothyroidism, unspecified 08/02/2012 Active Last Documented On 3 5:48PM ; [facility] Esophageal Reflux 08/02/2012 Inactiv e Last Documented On 3 5:42PM ; [facility] Gastro-esophageal reflux disease without esophagitis 08/02 Active Last Documented On 3 5:48PM ; [facility] Fracture of Nasal Bones 08/02/2012 A ctive Last Documented On 3 5:42PM ; [facility] GENERALIZED ANXIETY DIS 08/02/2012 I nactive Last Documented On 3 5:42PM ; [facility] Hyperlipidemia 08/02/2012 Inactive Last Documented On 3 5:42PM ; [facility] Hyperlipidemia, unspecified 08/02/2012 Active Last Documented On 3 5:48PM ; [facility] Essential (primary) hypertension 08/02/2012 Active Last Documented On 3 5:48PM ; [facility] Hypertension Systemic 08/02/2012 [place] ctive Last Documented On 3 5:42PM ; [facility] Hypothyroidism 08/02/2012 Inactive Last Documented On 3 5:42PM ; [facility] Irritable Bowel Syndrome 08/02/2012 Inactive Last Documented On 3 5:42PM ; [facility] Irritable bowel syndrome without diarrhea 08/02/2012 Active Last Documented On 3 5:48PM ; [facility] Reported Trauma To Head 08/02/2012 I nactive Last Documented On 3 5:42PM ; [facility] Plan of Treatment Future Appointments Date Time Location [facility] ADULT PSYCH ESTABLISHED 12/24/2024 11:00AM [facility] VINCENT MD Last Documented On 5 4:04PM ; [facility] Education and Decision Aids were provided during visit for: Patient counseling I discuss ed risk, benefits, and side effects of sleep aid - Belsomra - including the possibility of sleep related behaviors i.e. sleepwalking, sleeptalking, sleepdriving, etc... Pt verbalized understanding Last Documented On 4 11:46AM ; [facility] I recommended cognitive exer cises such as reading and/or word search puzzles, etc.. Last Documented On 4 11:46AM ; [facility] Calming techniques such as b reathing exercises/meditation and other relaxation techniques Last Documented On 4 4:34AM ; [facility] Patient counseling I discus sed risk, benefits, and side effects of sleep aid - Belsomra - including the possibility of sleep related behaviors i.e. sleepwalking, sleeptalking, sleepdriving, etc... Pt verbalized understanding Last Documented On 4 11:43AM ; [facility] I recommended cognitive exer cises such as reading and/or word search puzzles, etc.. Last Documented On 4 11:41AM ; [facility] Calming techniques such as b reathing exercises/meditation and other relaxation techniques Last Documented On 4 3:40AM ; [facility] Patient counseling I discuss ed risk, benefits, and side effects of sleep aid - Belsomra - including the possibility of sleep related behaviors i.e. sleepwalking, sleeptalking, sleepdriving, etc... Pt verbalized understanding Last Documented On 3 10:27AM ; [facility] I recommended cognitive exer cises such as reading and/or word search puzzles, etc.. Last Documented On 3 10:28AM ; [facility] Patient counseling I discuss ed risk, benefits, and side effects of sleep aid - Belsomra - including the possibility of sleep related behaviors i.e. sleepwalking, sleeptalking, sleepdriving, etc... Pt verbalized understanding Last Documented On 3 10:45AM ; [facility] Discussed good sleep hygiene habits Last Documented On 3 7:14AM ; [facility] I recommended cognitive exer cises such as reading and/or word search puzzles, etc.. Last Documented On 3 7:14AM ; [facility] Patient counseling I discuss ed risk, benefits, and side effects of sleep aid Belsomra - including the possibility of sleep related behaviors i.e. sleepwalking, sleeptalking, sleepdriving, etc... Pt verbalized understanding Last Documented On 3 5:09PM ; [facility] Discussed good sleep hygiene habits Last Documented On 3 5:08PM ; [facility] I recommended cognitive exer cises such as reading and/or word search puzzles, etc.. Last Documented On 3 1:47AM ; [facility] Assessments Includes: Assessments for all patient encounters Findings Encounter Date Adult attention deficit hype ractivity disorder [facility] ADULT PSYCH ESTABLISHED with EILEEN VINCENT MD 12/19/2023 Last Documented On 4 4:37AM ; [facility] Bipolar I disorder [facility] ADULT PSY CH ESTABLISHED with EILEEN VINCENT MD 12/19/2023 Last Documented On 4 4:37AM ; [facility] Dementia TELEHEALTH ADULT PSYCH ESTABLISH ED with EILEEN VINCENT MD 12/19/2023 Last Documented On 4 4:37AM ; [facility] Depressive disorder [facility] ADULT PSY CH ESTABLISHED with EILEEN VINCENT MD 12/19/2023 Last Documented On 4 4:37AM ; [facility] Generalized anxiety disorder [facility] ADULT PSYCH ESTABLISHED with EILEEN VINCENT MD 12/19/2023 Last Documented On 4 4:37AM ; [facility] Mild Cognitive Impairment [facility] ESTABLISHED with EILEEN VINCENT MD 12/19/2023 Last Documented On 4 4:37AM ; [facility] Nonorganic sleep apnea [facility] ADULT PSYCH ESTABLISHED with EILEEN VINCENT MD 12/19/2023 Last Documented On 4 4:37AM ; [facility] Psychophysiological insomnia TELEHEALTH ADULT PSYCH ESTABLISHED with EILEEN VINCENT MD 12/19/2023 Last Documented On 4 4:37AM ; [facility] Restless legs syndrome [facility]HE[facility] ADULT PSYCH ESTABLISHED with EILEEN VINCENT MD 12/19/2023 Last Documented On 4 4:37AM ; [facility] Dementia * PHONE CALL with EILEEN HAAS MD 12/12/2023 Last Documented On 4 5:57PM ; [facility] Adult attention deficit hype ractivity disorder * PHONE CALL with EILEEN VINCENT MD 10/31/2023 Last Documented On 4 11:49AM ; [facility] Adult attention deficit hype ractivity disorder TELEHEALTH ADULT PSYCH ESTABLISHED with EILEEN VINCENT MD 09/14/2023 Last Documented On 4 3:43AM ; [facility] Bipolar I disorder TELEHEALTH ADULT PSY CH ESTABLISHED with EILEEN VINCENT MD 09/14/2023 Last Documented On 4 3:43AM ; [facility] Dementia TELEHEALTH ADULT PSYCH ESTABLISH ED with EILEEN VINCENT MD 09/14/2023 Last Documented On 4 3:43AM ; [facility] Depressive disorder TELEHEALTH ADULT PSY CH ESTABLISHED with EILEEN VINCENT MD 09/14/2023 Last Documented On 4 3:43AM ; [facility] Generalized anxiety disorder TELEHEALTH ADULT PSYCH ESTABLISHED with EILEEN VINCENT MD 09/14/2023 Last Documented On 4 3:43AM ; [facility] Mild Cognitive Impairment [facility] ESTABLISHED with EILEEN VINCENT MD 09/14/2023 Last Documented On 4 3:43AM ; [facility] Nonorganic sleep apnea TELEHEALTH ADULT PSYCH ESTABLISHED with EILEEN VINCENT MD 09/14/2023 Last Documented On 4 3:43AM ; [facility] Psychophysiological insomnia TELEHEALTH ADULT PSYCH ESTABLISHED with EILEEN VINCENT MD 09/14/2023 Last Documented On 4 3:43AM ; [facility] Restless legs syndrome TELEHEALTH ADULT PSYCH ESTABLISHED with EILEEN VINCENT MD 09/14/2023 Last Documented On 4 3:43AM ; [facility] Adult attention deficit hype ractivity disorder TELEHEALTH ADULT PSYCH ESTABLISHED with EILEEN VINCENT MD 06/29/2023 Last Documented On 3 5:08PM ; [facility] Bipolar I disorder TELEHEALTH ADULT PSY CH ESTABLISHED with EILEEN VINCENT MD 06/29/2023 Last Documented On 3 5:08PM ; [facility] Dementia TELEHEALTH ADULT PSYCH ESTABLISH ED with EILEEN VINCENT MD 06/29/2023 Last Documented On 3 5:08PM ; [facility] Depressive disorder TELEHEALTH ADULT PSY CH ESTABLISHED with EILEEN VINCENT MD 06/29/2023 Last Documented On 3 5:08PM ; [facility] Generalized anxiety disorder TELEHEALTH ADULT PSYCH ESTABLISHED with EILEEN VINCENT MD 06/29/2023 Last Documented On 3 5:08PM ; [facility] Mild Cognitive Impairment [facility] PS[facility] ESTABLISHED with EILEEN VINCENT MD 06/29/2023 Last Documented On 3 5:08PM ; [facility] Nonorganic sleep apnea TELEHEALTH ADULT PSYCH ESTABLISHED with EILEEN VINCENT MD 06/29/2023 Last Documented On 3 5:08PM ; [facility] Psychophysiological insomnia TELEHEALTH ADULT PSYCH ESTABLISHED with EILEEN VINCENT MD 06/29/2023 Last Documented On 3 5:08PM ; [facility] Restless legs syndrome TELEHEALTH ADULT PSYCH ESTABLISHED with EILEEN VINCENT MD 06/29/2023 Last Documented On 3 5:08PM ; [facility] Adult attention deficit hype ractivity disorder TELEHEALTH ADULT PSYCH ESTABLISHED with EILEEN VINCENT MD 04/18/2023 Last Documented On 3 7:22AM ; [facility] Bipolar I disorder TELEHEALTH ADULT PSY CH ESTABLISHED with EILEEN VINCENT MD 04/18/2023 Last Documented On 3 7:22AM ; [facility] Dementia TELEHEALTH ADULT PSYCH ESTABLISH ED with EILEEN VINCENT MD 04/18/2023 Last Documented On 3 7:22AM ; [facility] Depressive disorder TELEHEALTH ADULT PSY CH ESTABLISHED with EILEEN VINCENT MD 04/18/2023 Last Documented On 3 7:22AM ; [facility] Generalized anxiety disorder TELEHEALTH ADULT PSYCH ESTABLISHED with EILEEN VINCENT MD 04/18/2023 Last Documented On 3 7:22AM ; [facility] Mild Cognitive Impairment [facility] PS[facility] ESTABLISHED with EILEEN VINCENT MD 04/18/2023 Last Documented On 3 7:22AM ; [facility] Nonorganic sleep apnea TELEHEALTH ADULT PSYCH ESTABLISHED with EILEEN VINCENT MD 04/18/2023 Last Documented On 3 7:22AM ; [facility] Psychophysiological insomnia TELEHEALTH ADULT PSYCH ESTABLISHED with EILEEN VINCENT MD 04/18/2023 Last Documented On 3 7:22AM ; [facility] Restless legs syndrome TELEHEALTH ADULT PSYCH ESTABLISHED with EILEEN VINCENT MD 04/18/2023 Last Documented On 3 7:22AM ; [facility] Adult attention deficit hype ractivity disorder TELEHEALTH ADULT PSYCH ESTABLISHED with EILEEN VINCENT MD 02/23/2023 Last Documented On 3 1:50AM ; [facility] Bipolar I disorder TELEHEALTH ADULT PSY CH ESTABLISHED with EILEEN VINCENT MD 02/23/2023 Last Documented On 3 1:50AM ; [facility] Dementia TELEHEALTH ADULT PSYCH ESTABLISH ED with EILEEN VINCENT MD 02/23/2023 Last Documented On 3 1:50AM ; [facility] Depressive disorder TELEHEALTH ADULT PSY CH ESTABLISHED with EILEEN VINCENT MD 02/23/2023 Last Documented On 3 1:50AM ; [facility] Generalized anxiety disorder TELEHEALTH ADULT PSYCH ESTABLISHED with EILEEN VINCENT MD 02/23/2023 Last Documented On 3 1:50AM ; [facility] Mild Cognitive Impairment [facility] PS[facility] ESTABLISHED with EILEEN VINCENT MD 02/23/2023 Last Documented On 3 1:50AM ; [facility] Nonorganic sleep apnea TELEHEALTH ADULT PSYCH ESTABLISHED with EILEEN VINCENT MD 02/23/2023 Last Documented On 3 1:50AM ; [facility] Psychophysiological insomnia TELEHEALTH ADULT PSYCH ESTABLISHED with EILEEN VINCENT MD 02/23/2023 Last Documented On 3 1:50AM ; [facility] Restless legs syndrome TELEHEALTH ADULT PSYCH ESTABLISHED with EILEEN VINCENT MD 02/23/2023 Last Documented On 3 1:50AM ; [facility] Instructions Includes: Instructions for all patient encounters Education and Decision Aids were provided during visit for: Patient counseling I discuss ed risk, benefits, and side effects of sleep aid - Belsomra - including the possibility of sleep related behaviors i.e. sleepwalking, sleeptalking, sleepdriving, etc... Pt verbalized understanding Last Documented On 4 11:46AM ; [facility] I recommended cognitive exer cises such as reading and/or word search puzzles, etc.. Last Documented On 4 11:46AM ; [facility] Calming techniques such as b reathing exercises/meditation and other relaxation techniques Last Documented On 4 4:34AM ; [facility] Patient counseling I discuss ed risk, benefits, and side effects of sleep aid - Belsomra - including the possibility of sleep related behaviors i.e. sleepwalking, sleeptalking, sleepdriving, etc... Pt verbalized understanding Last Documented On 4 11:43AM ; [facility] I recommended cognitive exer cises such as reading and/or word search puzzles, etc.. Last Documented On 4 11:41AM ; [facility] Calming techniques such as b reathing exercises/meditation and other relaxation techniques Last Documented On 4 3:40AM ; [facility] Patient counseling I discuss ed risk, benefits, and side effects of sleep aid - Belsomra - including the possibility of sleep related behaviors i.e. sleepwalking, sleeptalking, sleepdriving, etc... Pt verbalized understanding Last Documented On 3 10:27AM ; [facility] I recommended cognitive exer cises such as reading and/or word search puzzles, etc.. Last Documented On 3 10:28AM ; [facility] Patient counseling I discuss ed risk, benefits, and side effects of sleep aid - Belsomra - including the possibility of sleep related behaviors i.e. sleepwalking, sleeptalking, sleepdriving, etc... Pt verbalized understanding Last Documented On 3 10:45AM ; [facility] Discussed good sleep hygiene habits Last Documented On 3 7:14AM ; [facility] I recommended cognitive exer cises such as reading and/or word search puzzles, etc.. Last Documented On 3 7:14AM ; [facility] Patient counseling I discuss ed risk, benefits, and side effects of sleep aid Belsomra - including the possibility of sleep related behaviors i.e. sleepwalking, sleeptalking, sleepdriving, etc... Pt verbalized understanding Last Documented On 3 5:09PM ; [facility] Discussed good sleep hygiene habits Last Documented On 3 5:08PM ; [facility] I recommended cognitive exer cises such as reading and/or word search puzzles, etc.. Last Documented On 3 1:47AM ; [facility] Medical Equipment - Implanted Devices Includes: Current and historical Devices No Medical Equipment Recorded Medications Includes: Current and historical Medications Current Medications (continue as prescribed) busPIRone HCl 15 MG Oral Tablet 01/16/2024 Provider: EILEEN VINCENT MD Diagnosis: TAKE ONE TABLET BY MOUTH THREE TIMES a DAY Last Documented On 01/16/2024 10:52AM By Radha Vincent MD ; [facility] Mydayis 37.5 MG Oral Capsule Extended Release 24 Hour 01/01/2024 Provider: EILEEN VINCENT MD Diagnosis: Attention-defici t hyperactivity disorder, combined type TAKE ONE (1) CAPSULE BY MOUT H EACH MORNING Last Documented On 01/01/2024 5:57PM By Radha Vincent MD ; [facility] rOPINIRole HCl 2 MG Oral Tablet 12/19/2023 Provider: EILEEN VINCENT MD Diagnosis: Restless legs sy ndrome as directed 1 tablet at 5 pm in the evening for restless legs Last Documented On 12/19/2023 11:49AM By Radha Vincent MD ; [facility] Memantine HCl 5 MG Oral Tablet 12/12/2023 Provider: EILEEN VINCENT MD Diagnosis: Dem in oth dis c lassd elswhr,unsp sev,w/o beh/psych/mood/anx One tablet daily Last Documented On 12/12/2023 4:50PM By Radha Vincent MD ; [facility] rOPINIRole HCl 2 MG Oral Tablet 12/10/2023 Provider: VENTURA GERARDO Diagnosis: Last Documented On 12/19/2023 11:45AM By Radha Vincent MD ; [facility] Namzaric 28-10 MG Oral Capsule Extended Release 24 Hour 11/26/2023 Provider: EILEEN VINCENT MD Diagnosis: Dem in oth dis c lassd elswhr,unsp sev,w/o beh/psych/mood/anx TAKE ONE CAPSULE BY MOUTH EV HELLEN MORNING Last Documented On 11/26/2023 1:10PM By Radha Vincent MD ; [facility] Trintellix 10 MG Oral Tablet 11/13/2023 Provider: EILEEN VINCENT MD Diagnosis: Major depressive disorder, single episode, unspecified TAKE ONE (1) TABLET BY MOUTH DAILY Last Documented On 11/13/2023 10:08AM By Radha Vincent MD ; [facility] Belsomra 10 MG Oral Tablet 11/01/2023 Provider: EILEEN VINCENT MD Diagnosis: Psychophysiologi c insomnia DIRECTED 1 TABLET AT BEDT ELEAZAR NEEDED FOR SLEEP Last Documented On 11/01/2023 4:16PM By Radha Vincent MD ; [facility] buPROPion HCl ER (XL) 300 MG Oral Tablet Extended Release 24 Hour 08/24/2023 Provider: EILEEN VINCENT MD Diagnosis: Major depressive disorder, single episode, unspecified 1 tablet every morning Last Documented On 08/24/2023 10:15AM By Radha Vincent MD ; [facility] lamoTRIgine 150 MG Oral Tablet 08/24/2023 Provider: EILEEN VINCENT MD Diagnosis: TAKE ONE TABLET BY MOUTH TWO TIMES A DAY Last Documented On 08/24/2023 10:26AM By Radha Vincent MD ; [facility] Escitalopram Oxalate 20 MG Oral Tablet 08/24/2023 Provider: EILEEN VINCENT MD Diagnosis: Generalized anxi ety disorder TAKE ONE TABLET BY MOUTH DAILY Last Documented On 08/24/2023 10:16AM By Radha Vincent MD ; [facility] Ferrous Sulfate 325 (65 Fe) MG Oral Tablet 04/18/2023 Provider: Diagnosis: 1 tab every other day Last Documented On 04/18/2023 10:30AM By WISAM CASH ; [facility] Belsomra 10 MG Oral Tablet 03/19/2023 Provider: Diagnosis: Psychophysiologi c insomnia 1 tablet at bedtime as needed for sleep Last Documented On 03/19/2023 2:13PM By LETI WILSON ; [facility] Belsomra 10 MG OR TABS 09/27/2022 Provider: CISCO VINCENT MD Diagnosis: Psychophysiologi c insomnia DIRECTED - ONE (1) TAB AT BEDTIME NEEDED FOR SLEEP Last Documented On 12/09/2022 5:29PM By Radha Vincent MD ; [facility] Alendronate Sodium 70 MG OR TABS 06/19/2022 Provider : Diagnosis: 1 tab weekly Last Documented On 12/09/2022 5:29PM By WISAM CASH ; [facility] Levothyroxine Sodium 100 MCG OR CAPS 04/14/2020 Prov ider: Diagnosis: 1 tab daily Last Documented On 12/09/2022 5:29PM By WISAM CASH ; [facility] Pantoprazole Sodium 40 MG OR TBEC 11/15/2019 Provide r: Diagnosis: 1 tab daily Last Documented On 12/09/2022 5:29PM By WISAM CASH ; [facility] Azelastine HCl 0.15% NA SOLN 08/21/2019 Provider: Diagnosis: 2 sprays in each nostril twice a day Last Documented On 12/09/2022 5:29PM By WISAM CASH ; [facility] Fluticasone Propionate 50 MCG/ACT NA SUSP 07/25/2018 Provider: Diagnosis: 2 sprays in each nostril daily Last Documented On 12/09/2022 5:29PM By WISAM CASH ; [facility] amLODIPine Besy-Benazepril HCl 5-10 MG OR CAPS 016 Provider: Diagnosis: 1 daily Last Documented On 12/09/2022 5:29PM By WILMER REDDY LPN ; [facility] Lipitor 20 MG OR TABS 11/10/2015 Provider: Diagnosis: 1 tablet every evening Last Documented On 12/09/2022 5:29PM By WILMER REDDY LPN ; [facility] Lasix 20 MG OR TABS 11/10/2015 Provider: Diagnosis: 1 tablet every morning Last Documented On 12/09/2022 5:29PM By WILMER REDDY LPN ; [facility] Aspirin 81 MG OR TABS 11/10/2015 Provider: Diagnosis: 1 tablet daily Last Documented On 12/09/2022 5:29PM By WILMER REDDY LPN ; [facility] Past Medications on file Mydayis 37.5 MG Oral Capsule Extended Release 24 Hour 11/27/2023 - 01/01/2024 Provider: EILEEN VINCENT MD Diagnosis: Attention-defici t hyperactivity disorder, combined type TAKE ONE (1) CAPSULE BY MOUTH EACH MORNING Last Documented On 01/01/2024 5:48PM By Radha Vincent MD ; [facility] Mydayis 37.5 MG Oral Capsule Extended Release 24 Hour 10/31/2023 - 11/27/2023 Provider: EILEEN VINCENT MD Diagnosis: Attention-defici t hyperactivity disorder, combined type TAKE ONE (1) CAPSULE BY MOUTH EACH MORNING Last Documented On 11/27/2023 5:06PM By Radha Vincent MD ; [facility] Focalin 10 MG Oral Tablet 10/18/2023 - 12/19/2023 Provider: EILEEN VINCENT MD Diagnosis: Attention-defici t hyperactivity disorder, combined type 1 tablet every morning Last Documented On 12/19/2023 11:48AM By Radha Vincent MD ; [facility] Mydayis 37.5 MG Oral Capsule Extended Release 24 Hour 09/26/2023 - 10/31/2023 Provider: EILEEN VINCENT MD Diagnosis: Attention-defici t hyperactivity disorder, combined type TAKE ONE (1) CAPSULE BY MOUTH EACH MORNING Last Documented On 10/31/2023 11:48AM By Radha Vincent MD ; [facility] GROUP Dicyclomine HCl 10 MG Oral Capsule 09/14/2023 - 2023 Provider: Diagnosis: 1 capsule bid Last Documented On 09/14/2023 11:16AM By WISAM CASH ; [facility] Mydayis 37.5 MG Oral Capsule Extended Release 24 Hour 08/23/2023 - 09/26/2023 Provider: EILEEN VINCENT MD Diagnosis: Attention-defici t hyperactivity disorder, combined type TAKE ONE (1) CAPSULE BY MOUTH EACH MORNING Last Documented On 09/26/2023 3:48PM By Radha Vincent MD ; [facility] Mydayis 37.5 MG Oral Capsule Extended Release 24 Hour 07/23/2023 - 08/23/2023 Provider: EILEEN VINCENT MD Diagnosis: Attention-defici t hyperactivity disorder, combined type TAKE ONE (1) CAPSULE BY MOUTH EACH MORNING Last Documented On 08/23/2023 2:27PM By Radha Vincent MD ; [facility] Mydayis 37.5 MG Oral Capsule Extended Release 24 Hour 06/26/2023 - 07/23/2023 Provider: EILEEN VINCENT MD Diagnosis: Attention-defici t hyperactivity disorder, combined type TAKE ONE (1) CAPSULE BY MOUTH EACH MORNING Last Documented On 07/23/2023 4:41PM By Radha Vincent MD ; [facility] Mydayis 37.5 MG Oral Capsule Extended Release 24 Hour 05/15/2023 - 06/26/2023 Provider: EILEEN VINCENT MD Diagnosis: Attention-defici t hyperactivity disorder, combined type TAKE ONE (1) CAPSULE BY MOUTH EACH MORNING Last Documented On 06/26/2023 11:51AM By Radha Vincent MD ; [facility] hydrOXYzine HCl 25 MG Oral Tablet 04/09/2023 - 06/08/2023 Provider: EILEEN CONNORS MD Diagnosis: 1 TAB a DAY NEEDED ONLY FOR ITCHING/ANXIETY Last Documented On 04/09/2023 12:08PM By Radha Vincent MD ; [facility] Mydayis 37.5 MG Oral Capsule Extended Release 24 Hour 04/09/2023 - 05/15/2023 Provider: EILEEN VINCENT MD Diagnosis: Attention-defici t hyperactivity disorder, combined type TAKE ONE (1) CAPSULE BY MOUTH EACH MORNING Last Documented On 05/15/2023 3:14PM By Radha Vincent MD ; [facility] Belsomra 10 MG Oral Tablet 03/20/2023 - 11/01/2023 Provider: EILEEN VINCENT MD Diagnosis: Psychophysiologi c insomnia as directed 1 tablet at bedt eleazar as needed for sleep Last Documented On 11/01/2023 4:05PM By Radha Vincent MD ; [facility] rOPINIRole HCl 2 MG Oral Tablet 03/12/2023 - 12/19/2023 Provider: EILEEN VINCENT MD Diagnosis: Restless legs syndrome as directed 1 tablet at 5 pm in the evening for restless legs Last Documented On 12/19/2023 11:47AM By Radha Vincent MD ; [facility] rOPINIRole HCl 2 MG Oral Tablet 03/12/2023 - Provider: Diagnosis: Restless legs sy ndrome 1 tablet at 5 pm in the evening for restless leg s Last Documented On 03/12/2023 6:11PM By LETI WILSON ; [facility] Mydayis 37.5 MG Oral Capsule Extended Release 24 Hour 02/27/2023 - 04/09/2023 Provider: EILEEN VINCENT MD Diagnosis: Attention-defici t hyperactivity disorder, combined type TAKE ONE (1) CAPSULE BY MOUTH EACH MORNING Last Documented On 04/09/2023 12:09PM By Radha Vincent MD ; [facility] Mydayis 37.5 MG Oral Capsule Extended Release 24 Hour 01/11/2023 - 02/27/2023 Provider: EILEEN VINCENT MD Diagnosis: Attention-defici t hyperactivity disorder, combined type 1 Capsule every morning Last Documented On 02/27/2023 3:23PM By Radha Vincent MD ; [facility] hydrOXYzine HCl 25 MG Oral Tablet 12/20/2022 - 04/09/2023 Provider: EILEEN CONNORS MD Diagnosis: 1 tab a day as needed only for itching/anxiety Last Documented On 04/09/2023 12:08PM By Radha Vincent MD ; [facility] Mydayis 37.5 MG OR CP24 12/07/2022 - 01/11/2023 Provider: EILEEN VINCENT MD Diagnosis: Attention-defici t hyperactivity disorder, combined type 1 Capsule every morning Last Documented On 01/11/2023 6:42PM By Radha Vincent MD ; [facility] Trintellix 10 MG OR TABS 11/16/2022 - 11/13/2023 Provider: EILEEN VINCENT MD Diagnosis: Major depressive disorder, single episode, unspecified TAKE ONE (1) TABLET BY MOUTH DAILY Last Documented On 11/13/2023 10:08AM By Radha Vincent MD ; [facility] Mydayis 37.5 MG OR CP24 10/27/2022 - 12/07/2022 Provider: EILEEN VINCENT MD Diagnosis: Attention-defici t hyperactivity disorder, combined type 1 Capsule every morning Last Documented On 12/09/2022 5:29PM By Radha Vincent MD ; [facility] hydrOXYzine HCl 25 MG OR TABS 10/17/2022 - 12/20/2022 Provider: EILEEN CONNORS MD Diagnosis: 1 tab a day as needed only for itching/anxiety Last Documented On 12/20/2022 4:05PM By Radha Vincent MD ; [facility] Namzaric 28-10 MG OR CP24 10/17/2022 - 11/26/2023 Provider: EILEEN CONNORS MD Diagnosis: Dem in oth dis c lassd elswhr,unsp sev,w/o beh/psych/mood/anx TAKE ONE CAPSULE BY MOUTH EVERY MORNING Last Documented On 11/26/2023 1:09PM By Radha Vincent MD ; [facility] Mydayis 37.5 MG OR CP24 09/29/2022 - 10/27/2022 Provid er: EILEEN VINCENT MD Diagnosis: 1 Capsule every morning Last Documented On 12/09/2022 5:29PM By Radha Vincent MD ; [facility] Escitalopram Oxalate 20 MG OR TABS 09/25/2022 - 08/24/2023 Provider: EILEEN VINCENT MD Diagnosis: Generalized anxi ety disorder TAKE ONE TABLET BY MOUTH DAILY Last Documented On 08/24/2023 10:16AM By Radha Vincent MD ; [facility] lamoTRIgine 150 MG OR TABS 09/25/2022 - 08/24/2023 Pro vider: EILEEN VINCENT MD Diagnosis: TAKE ONE TABLET BY MOUTH TWO TIMES A DAY Last Documented On 08/24/2023 10:25AM By Radha Vincent MD ; [facility] rOPINIRole HCl 2 MG OR TABS 09/25/2022 - 03/12/2023 Provider: EILEEN VINCENT MD Diagnosis: Restless legs syndrome DIRECTED - ONE (1) TAB AT FIVE (5) IN THE EVENING FOR RESTLESS LEGS Last Documented On 03/12/2023 6:11PM By LETI WILSON ; [facility] Mydayis 37.5 MG OR CP24 08/29/2022 - 09/29/2022 Provid er: EILEEN VINCENT MD Diagnosis: TAKE ONE (1) CAPSULE BY MOUTH EACH MORNING Last Documented On 12/09/2022 5:29PM By Radha Vincent MD ; [facility] busPIRone HCl 15 MG OR TABS 08/29/2022 - 01/16/2024 Pr ovider: EILEEN VINCENT MD Diagnosis: TAKE ONE TABLET BY MOUTH THREE TIMES a DAY Last Documented On 01/16/2024 10:52AM By Radha Vincent MD ; [facility] Mydayis 37.5 MG OR CP24 08/28/2022 - 10/17/2022 Provider: EILEEN VINCENT MD Diagnosis: Attention-defici t hyperactivity disorder, other type TAKE ONE (1) CAPSULE BY MOUT H EACH MORNING Last Documented On 12/09/2022 5:29PM By Radha Vincent MD ; [facility] Belsomra 10 MG OR TABS 07/31/2022 - 09/27/2022 Provider: EILEEN VINCENT MD Diagnosis: Psychophysiologi c insomnia as directed - 1 tab at bedti me as needed for sleep Last Documented On 12/09/2022 5:29PM By Radha Vincent MD ; [facility] Mydayis 37.5 MG OR CP24 07/24/2022 - 08/28/2022 Provider: EILEEN VINCENT MD Diagnosis: Attention-defici t hyperactivity disorder, other type TAKE ONE (1) CAPSULE BY MOUT H EACH MORNING Last Documented On 12/09/2022 5:29PM By Radha Vincent MD ; [facility] Quviviq 50 MG OR TABS 07/17/2022 - 10/17/2022 Provider: EILEEN VINCENT MD Diagnosis: Psychophysiologi c insomnia One tablet at bed time Last Documented On 12/09/2022 5:29PM By Radha Vincent MD ; [facility] Trintellix 10 MG OR TABS 07/17/2022 - 11/16/2022 Provider: EILEEN VINCENT MD Diagnosis: Major depressive disorder, single episode, unspecified One tablet daily Last Documented On 12/09/2022 5:29PM By Radha Vincent MD ; [facility] buPROPion HCl ER (XL) 300 MG OR TB24 07/03/2022 - 08/24/2023 Provider: EILEEN VINCENT MD Diagnosis: Major depressive disorder, single episode, unspecified 1 tablet every morning Last Documented On 08/24/2023 10:15AM By Radha Vincent MD ; [facility] Mydayis 37.5 MG OR CP24 06/26/2022 - 07/24/2022 Provider: EILEEN VINCENT MD Diagnosis: Attention-defici t hyperactivity disorder, other type TAKE ONE (1) CAPSULE BY MOUT H EACH MORNING Last Documented On 12/09/2022 5:29PM By Radha Vincent MD ; [facility] Mydayis 37.5 MG OR CP24 05/26/2022 - 06/26/2022 Provider: EILEEN VINCENT MD Diagnosis: Attention-defici t hyperactivity disorder, other type TAKE ONE (1) CAPSULE BY MOUT H EACH MORNING Last Documented On 12/09/2022 5:29PM By Radha Vincent MD ; [facility] Mydayis 37.5 MG OR CP24 04/24/2022 - 05/26/2022 Provider: EILEEN VINCENT MD Diagnosis: Attention-defici t hyperactivity disorder, other type TAKE ONE (1) CAPSULE BY MOUT H EACH MORNING Last Documented On 12/09/2022 5:29PM By Radha Vincent MD ; [facility] Quviviq 50 MG OR TABS 04/11/2022 - 07/17/2022 Provider: EILEEN VINCENT MD Diagnosis: Psychophysiologi c insomnia One tablet at bed time Last Documented On 12/09/2022 5:29PM By Radha Vincent MD ; [facility] rOPINIRole HCl 2 MG OR TABS 04/05/2022 - 09/25/2022 Provider: EILEEN VINCENT MD Diagnosis: Restless legs syndrome as directed - 1 tab at 5 pm for restless legs Last Documented On 12/09/2022 5:29PM By Radha Vincent MD ; [facility] Mydayis 37.5 MG OR CP24 03/17/2022 - 04/24/2022 Provider: EILEEN VINCENT MD Diagnosis: Attention-defici t hyperactivity disorder, other type TAKE ONE (1) CAPSULE BY MOUT H EACH MORNING Last Documented On 12/09/2022 5:29PM By Radha Vincent MD ; [facility] rOPINIRole HCl 1 MG OR TABS 02/20/2022 - 05/11/2022 Pr ovider: EILEEN VINCENT MD Diagnosis: as directed - 1 tab in the evening for restless legs Last Documented On 12/09/2022 5:29PM By Radha Vincent MD ; [facility] hydrOXYzine HCl 25 MG OR TABS 02/20/2022 - 10/17/2022 Provider: EILEEN CONNORS MD Diagnosis: TAKE ONE (1) OR TWO (2) TABL ETS BY MOUTH NEEDED FOR AGITATION/ANXIETY Last Documented On 12/09/2022 5:29PM By Radha Vincent MD ; [facility] Mydayis 37.5 MG OR CP24 02/14/2022 - 03/17/2022 Provider: EILEEN VINCENT MD Diagnosis: Attention-defici t hyperactivity disorder, other type TAKE ONE (1) CAPSULE BY MOUT H EACH MORNING Last Documented On 12/09/2022 5:29PM By Radha Vincent MD ; [facility] traZODone HCl 50 MG OR TABS 02/07/2022 - 09/14/2023 Pr ovider: EILEEN VINCENT MD Diagnosis: TAKE ONE (1) OR TWO (2) TABL ETS BY MOUTH AT BEDTIME NEEDED SLEEP Last Documented On 09/14/2023 12:02PM By Radha Vincent MD ; [facility] Mydayis 37.5 MG OR CP24 01/16/2022 - 02/14/2022 Provider: EILEEN VINCENT MD Diagnosis: Attention-defici t hyperactivity disorder, other type ONE (1) CAPSULE EVERY MORNING Last Documented On 12/09/2022 5:29PM By Radha Vincent MD ; [facility] Mydayis 37.5 MG OR CP24 12/14/2021 - 01/16/2022 Provider: EILEEN VINCENT MD Diagnosis: Attention-defici t hyperactivity disorder, other type ONE (1) CAPSULE EVERY MORNING Last Documented On 12/09/2022 5:29PM By Radha Vincent MD ; [facility] Mydayis 37.5 MG OR CP24 11/03/2021 - 12/14/2021 Provider: EILEEN VINCENT MD Diagnosis: Attention-defici t hyperactivity disorder, other type ONE (1) CAPSULE EVERY MORNING Last Documented On 12/09/2022 5:29PM By Radha Vincent MD ; [facility] Namzaric 28-10 MG OR CP24 10/27/2021 - 10/17/2022 Prov ider: EILEEN VINCENT MD Diagnosis: TAKE ONE CAPSULE BY MOUTH EVERY MORNING Last Documented On 12/09/2022 5:29PM By Radha Vincent MD ; [facility] Mydayis 37.5 MG OR CP24 10/05/2021 - 11/03/2021 Provider: EILEEN VINCENT MD Diagnosis: Attention-defici t hyperactivity disorder, other type 1 Capsule every morning Last Documented On 12/09/2022 5:29PM By Radha Vincent MD ; [facility] Escitalopram Oxalate 20 MG OR TABS 10/04/2021 - 09/25/2022 Provider: EILEEN VINCENT MD Diagnosis: Generalized anxi ety disorder TAKE ONE TABLET BY MOUTH DAILY Last Documented On 12/09/2022 5:29PM By Radha Vincent MD ; [facility] Mydayis 37.5 MG OR CP24 09/02/2021 - 10/05/2021 Provider: EILEEN VINCENT MD Diagnosis: Attention-defici t hyperactivity disorder, other type 1 Capsule every morning Last Documented On 12/09/2022 5:29PM By Radha Vincent MD ; [facility] hydrOXYzine HCl 25 MG OR TABS 08/25/2021 - 07/17/2022 Provider: EILEEN VINCENT MD Diagnosis: Generalized anxi ety disorder TAKE 1 OR 2 TABLETS BY MOUTH NEEDED FOR AGITATION/ANXIETY Last Documented On 12/09/2022 5:29PM By Radha Vincent MD ; [facility] busPIRone HCl 15 MG OR TABS 08/24/2021 - 10/17/2022 Provider: EILEEN VINCENT MD Diagnosis: Generalized anxi ety disorder TAKE ONE TABLET BY MOUTH THREE TIMES A DAY Last Documented On 12/09/2022 5:29PM By Radha Vincent MD ; [facility] lamoTRIgine 150 MG OR TABS 08/24/2021 - 10/17/2022 Provider: EILEEN VINCENT MD Diagnosis: Bipolar disorder , unspecified TAKE ONE TABLET BY MOUTH TWO TIMES A DAY Last Documented On 12/09/2022 5:29PM By Radha Vincent MD ; [facility] Mydayis 37.5 MG OR CP24 08/04/2021 - 09/02/2021 Provider: EILEEN VINCENT MD Diagnosis: Attention-defici t hyperactivity disorder, other type 1 Capsule every morning Last Documented On 12/09/2022 5:29PM By Radha Vincent MD ; [facility] rOPINIRole HCl 1 MG OR TABS 07/29/2021 - 12/20/2021 Provider: EILEEN VINCENT MD Diagnosis: Restless legs syndrome as directed -- 1/2 tab in evening for 1 week then 1 tab in the evening thereafter for restless legs Last Documented On 12/09/2022 5:29PM By Radha Vincent MD ; [facility] hydrOXYzine HCl 25 MG OR TABS 06/15/2021 - 07/17/2022 Provider: Diagnosis: Generalized anxi ety disorder 1 tab a day as needed for agitation/anxiety Last Documented On 12/09/2022 5:29PM By LETI WILSON ; [facility] traZODone HCl 50 MG OR TABS 06/15/2021 - 07/17/2022 Pr ovider: Diagnosis: Psychophysiologi c insomnia 1 or 2 tabs at bedtime as needed for sleep Last Documented On 12/09/2022 5:29PM By LETI WILSON ; [facility] hydrOXYzine HCl 25 MG OR TABS 06/15/2021 - 08/25/2021 Provider: EILEEN VINCENT MD Diagnosis: Generalized anxi ety disorder as directed 1 tab a day as n eeded for agitation/anxiety Last Documented On 12/09/2022 5:29PM By Radha Vincent MD ; [facility] traZODone HCl 50 MG OR TABS 06/15/2021 - 07/17/2022 Provider: EILENE VINCENT MD Diagnosis: Psychophysiologi c insomnia as directed 1 or 2 tabs at b edtime as needed for sleep Last Documented On 12/09/2022 5:29PM By Radha Vincent MD ; [facility] Mydayis 37.5 MG OR CP24 06/06/2021 - 12/20/2021 Provid er: EILEEN VINCENT MD Diagnosis: TAKE ONE CAPSULE BY MOUTH EVERY MORNING Last Documented On 12/09/2022 5:29PM By Radha Vincent MD ; [facility] buPROPion HCl ER (XL) 300 MG OR TB24 06/06/2021 - 07/03/2022 Provider: EILEEN VINCENT MD Diagnosis: Major depressive disorder, single episode, unspecified 1 tablet every morning Last Documented On 12/09/2022 5:29PM By Radha Vincent MD ; [facility] Mydayis 37.5 MG OR CP24 05/25/2021 - 12/20/2021 Provid er: EILEEN VINCENT MD Diagnosis: 1 Capsule every morning Last Documented On 12/09/2022 5:29PM By Radha Vincent MD ; [facility] Mydayis 37.5 MG OR CP24 04/25/2021 - 05/25/2021 Provider: EILEEN VINCENT MD Diagnosis: Attention-defici t hyperactivity disorder, other type as directed 1 Capsule every morning Last Documented On 12/09/2022 5:29PM By Radha Vincent MD ; [facility] Mydayis 37.5 MG OR CP24 03/23/2021 - 04/19/2021 Provid er: EILEEN VINCENT MD Diagnosis: as directed 1 Capsule every morning Last Documented On 12/09/2022 5:29PM By Radha Vincent MD ; [facility] Mydayis 37.5 MG OR CP24 02/21/2021 - 03/23/2021 Provid er: EILEEN VINCENT MD Diagnosis: as directed 1 Capsule every morning Last Documented On 12/09/2022 5:29PM By Radha Vincent MD ; [facility] Mydayis 37.5 MG OR CP24 01/25/2021 - 02/21/2021 Provider: EILEEN VINCENT MD Diagnosis: Attention-defici t hyperactivity disorder, other type as directed 1 Capsule every morning Last Documented On 12/09/2022 5:29PM By Radha Vincent MD ; [facility] Mydayis 37.5 MG OR CP24 12/21/2020 - 01/25/2021 Provider: EILEEN VINCENT MD Diagnosis: Attention-defici t hyperactivity disorder, other type as directed 1 Capsule every morning Last Documented On 12/09/2022 5:29PM By Radha Vincent MD ; [facility] Mydayis 37.5 MG OR CP24 11/18/2020 - 12/20/2020 Provider: EILEEN VINCENT MD Diagnosis: Attention-defici t hyperactivity disorder, other type as directed 1 Capsule every morning Last Documented On 12/09/2022 5:29PM By Radha Vincent MD ; [facility] Namzaric 28-10 MG OR CP24 10/26/2020 - 12/20/2021 Provider: EILEEN CONNORS MD Diagnosis: Dem in oth dis c lassd elswhr,unsp sev,w/o beh/psych/mood/anx 1 CAPSULE EVERY MORNING Last Documented On 12/09/2022 5:29PM By Radha Vincent MD ; [facility] Mydayis 37.5 MG OR CP24 10/18/2020 - 11/18/2020 Provider: EILEEN VINCENT MD Diagnosis: Attention-defici t hyperactivity disorder, other type as directed 1 Capsule every morning Last Documented On 12/09/2022 5:29PM By Radha Vincent MD ; [facility] hydrOXYzine HCl 25 MG OR TABS 10/08/2020 - 11/07/2020 Provider: EILEEN VINCENT MD Diagnosis: Generalized anxi ety disorder as directed - 1 tab a day as needed for agitation/anxiety Last Documented On 12/09/2022 5:29PM By Radha Vincent MD ; [facility] Escitalopram Oxalate 20 MG OR TABS 09/27/2020 - 10/04/2021 Provider: EILEEN VINCENT MD Diagnosis: Generalized anxi ety disorder TAKE ONE TABLET BY MOUTH DAILY Last Documented On 12/09/2022 5:29PM By Radha Vincent MD ; [facility] lamoTRIgine 150 MG OR TABS 09/22/2020 - 08/24/2021 Provider: EILEEN VINCENT MD Diagnosis: Bipolar disorder , unspecified TAKE ONE TABLET BY MOUTH TWO TIMES A DAY Last Documented On 12/09/2022 5:29PM By Radha Vincent MD ; [facility] Mydayis 37.5 MG OR CP24 09/20/2020 - 10/18/2020 Provider: EILEEN VINCENT MD Diagnosis: Attention-defici t hyperactivity disorder, other type as directed 1 Capsule every morning Last Documented On 12/09/2022 5:29PM By Radha Vincent MD ; [facility] Mydayis 37.5 MG OR CP24 08/20/2020 - 09/20/2020 Provider: EILEEN VINCENT MD Diagnosis: Attention-defici t hyperactivity disorder, other type as directed 1 Capsule every morning Last Documented On 12/09/2022 5:29PM By Radha Vincent MD ; [facility] busPIRone HCl 15 MG OR TABS 08/02/2020 - 08/24/2021 Provider: EILEEN VINCENT MD Diagnosis: Generalized anxi ety disorder TAKE ONE TABLET BY MOUTH THREE TIMES A DAY Last Documented On 12/09/2022 5:29PM By Radha Vincent MD ; [facility] Mydayis 37.5 MG OR CP24 07/21/2020 - 08/20/2020 Provider: EILEEN VINCENT MD Diagnosis: Attention-defici t hyperactivity disorder, other type as directed 1 Capsule every morning Last Documented On 12/09/2022 5:29PM By Radha Vincent MD ; [facility] Mydayis 37.5 MG OR CP24 06/21/2020 - 07/21/2020 Provider: EILEEN VINCENT MD Diagnosis: Attention-defici t hyperactivity disorder, other type as directed 1 Capsule every morning Last Documented On 12/09/2022 5:29PM By Radha Vincent MD ; [facility] buPROPion HCl ER (XL) 300 MG OR TB24 06/08/2020 - 06/06/2021 Provider: EILEEN VINCENT MD Diagnosis: Major depressive disorder, single episode, unspecified 1 tablet every morning Last Documented On 12/09/2022 5:29PM By Radha Vincent MD ; [facility] Mydayis 37.5 MG OR CP24 05/20/2020 - 06/21/2020 Provider: EILEEN VINCENT MD Diagnosis: Attention-defici t hyperactivity disorder, other type as directed 1 Capsule every morning Last Documented On 12/09/2022 5:29PM By Radha Vincent MD ; [facility] traZODone HCl 50 MG OR TABS 05/10/2020 - 04/19/2021 Provider: EILEEN VINCENT MD Diagnosis: Psychophysiologi c insomnia TAKE ONE OR TWO TABLETS AT B EDTIME NEEDED FOR SLEEP Last Documented On 12/09/2022 5:29PM By Radha Vincent MD ; [facility] Mydayis 37.5 MG OR CP24 04/21/2020 - 05/20/2020 Provider: EILEEN VINCENT MD Diagnosis: Attention-defici t hyperactivity disorder, other type as directed 1 Capsule every morning Last Documented On 12/09/2022 5:29PM By Radha Vincent MD ; [facility] Mydayis 37.5 MG OR CP24 03/19/2020 - 04/21/2020 Provider: EILEEN VINCENT MD Diagnosis: Attention-defici t hyperactivity disorder, other type as directed 1 Capsule every morning Last Documented On 12/09/2022 5:29PM By Radha Vincent MD ; [facility] Mydayis 37.5 MG OR CP24 03/19/2020 - 03/19/2020 Provider: EILEEN VINCENT MD Diagnosis: Attention-defici t hyperactivity disorder, other type as directed 1 Capsule every morning Last Documented On 12/09/2022 5:29PM By Radha Vincent MD ; [facility] Mydayis 37.5 MG OR CP24 02/16/2020 - 03/19/2020 Provider: EILEEN VINCENT MD Diagnosis: Attention-defici t hyperactivity disorder, other type as directed 1 Capsule every morning Last Documented On 12/09/2022 5:29PM By Radha Vincent MD ; [facility] Mydayis 37.5 MG OR CP24 01/12/2020 - 07/29/2021 Provid er: Diagnosis: Attention-defici t hyperactivity disorder, other type 1 Capsule every morning Last Documented On 12/09/2022 5:29PM By WISAM CASH ; [facility] Mydayis 37.5 MG OR CP24 01/12/2020 - 02/16/2020 Provider: EILEEN VINCENT MD Diagnosis: Attention-defici t hyperactivity disorder, other type as directed 1 Capsule every morning Last Documented On 12/09/2022 5:29PM By Radha Vincent MD ; [facility] traZODone HCl 50 MG OR TABS 12/23/2019 - 05/10/2020 Provider: EILEEN VINCENT MD Diagnosis: Psychophysiologi c insomnia DIRECTED --1 OR 2 TABS AT BEDTIME NEEDED FOR SLEEP Last Documented On 12/09/2022 5:29PM By Radha Vincent MD ; [facility] Mydayis 37.5 MG OR CP24 12/12/2019 - 02/07/2022 Provider: EILEEN VINCENT MD Diagnosis: Attention-defici t hyperactivity disorder, other type 1 Capsule every morning Last Documented On 12/09/2022 5:29PM By Radha Vincent MD ; [facility] Mydayis 37.5 MG OR CP24 11/06/2019 - 12/12/2019 Provider: EILEEN VINCENT MD Diagnosis: Attention-defici t hyperactivity disorder, other type 1 Capsule every morning Last Documented On 12/09/2022 5:29PM By Radha Vincent MD ; [facility] Namzaric 28-10 MG OR CP24 10/24/2019 - 10/26/2020 Provider: EILEEN CONNORS MD Diagnosis: Dem in oth dis c lassd elswhr,unsp sev,w/o beh/psych/mood/anx 1 CAPSULE EVERY MORNING Last Documented On 12/09/2022 5:29PM By Radha Vincent MD ; [facility] LaMICtal 150 MG OR TABS 10/20/2019 - 09/22/2020 Provider: EILEEN VINCENT MD Diagnosis: Bipolar disorder , unspecified TAKE ONE TABLET BY MOUTH TWO TIMES A DAY Last Documented On 12/09/2022 5:29PM By Radha Vincent MD ; [facility] Mydayis 37.5 MG OR CP24 10/07/2019 - 11/06/2019 Provider: EILEEN VINCENT MD Diagnosis: Attention-defici t hyperactivity disorder, other type 1 Capsule every morning Last Documented On 12/09/2022 5:29PM By Radha Vincent MD ; [facility] Mydayis 37.5 MG OR CP24 09/02/2019 - 10/07/2019 Provider: EILEEN VINCENT MD Diagnosis: Attention-defici t hyperactivity disorder, other type 1 Capsule every morning Last Documented On 12/09/2022 5:29PM By Radha Vincent MD ; [facility] busPIRone HCl 15 MG OR TABS 08/27/2019 - 08/02/2020 Provider: EILEEN VINCENT MD Diagnosis: Generalized anxi ety disorder TAKE ONE TABLET BY MOUTH THREE TIMES A DAY Last Documented On 12/09/2022 5:29PM By Radha Vincent MD ; [facility] Mydayis 37.5 MG OR CP24 08/01/2019 - 09/02/2019 Provider: EILEEN VINCENT MD Diagnosis: Attention-defici t hyperactivity disorder, other type 1 Capsule every morning Last Documented On 12/09/2022 5:29PM By Radha Vincent MD ; [facility] Mydayis 37.5 MG OR CP24 06/27/2019 - 08/01/2019 Provider: EILEEN VINCENT MD Diagnosis: Attention-defici t hyperactivity disorder, other type 1 Capsule every morning Last Documented On 12/09/2022 5:29PM By Radha Vincent MD ; [facility] Mydayis 37.5 MG OR CP24 06/09/2019 - 06/27/2019 Provider: EILEEN VINCENT MD Diagnosis: Attention-defici t hyperactivity disorder, other type 1 Capsule every morning Last Documented On 12/09/2022 5:29PM By Radha Vincent MD ; [facility] Escitalopram Oxalate 20 MG OR TABS 06/02/2019 - 09/27/2020 Provider: EILEEN VINCENT MD Diagnosis: Generalized anxi ety disorder TAKE ONE TABLET BY MOUTH DAILY Last Documented On 12/09/2022 5:29PM By Radha Vincent MD ; [facility] LaMICtal 150 MG OR TABS 05/11/2019 - 10/20/2019 Provider: EILEEN VINCENT MD Diagnosis: Bipolar disorder , unspecified ONE TABLET TWICE A DAY Last Documented On 12/09/2022 5:29PM By Radha Vincent MD ; [facility] Escitalopram Oxalate 20 MG OR TABS 05/11/2019 - 06/02/2019 Provider: EILEEN VINCENT MD Diagnosis: Generalized anxi ety disorder ONE TABLET DAILY Last Documented On 12/09/2022 5:29PM By Radha Vincent MD ; [facility] Wellbutrin XL 300 MG OR TB24 05/11/2019 - 06/08/2020 Provider: EILEEN VINCENT MD Diagnosis: Major depressive disorder, single episode, unspecified TAKE ONE TABLET BY MOUTH EVERY MORNING Last Documented On 12/09/2022 5:29PM By Radha Vincent MD ; [facility] busPIRone HCl 15 MG OR TABS 05/11/2019 - 08/27/2019 Provider: EILEEN VINCENT MD Diagnosis: Generalized anxi ety disorder One tablet three times a day Last Documented On 12/09/2022 5:29PM By Radha Vincent MD ; [facility] Namzaric 28-10 MG OR CP24 05/11/2019 - 10/24/2019 Provider: EILEEN CONNORS MD Diagnosis: Dem in oth dis c lassd elswhr,unsp sev,w/o beh/psych/mood/anx 1 Capsule every morning Last Documented On 12/09/2022 5:29PM By Radha Vincent MD ; [facility] traZODone HCl 50 MG OR TABS 05/11/2019 - 12/23/2019 Provider: EILEEN VINCENT MD Diagnosis: Psychophysiologi c insomnia DIRECTED --1 OR 2 TABS AT BEDTIME NEEDED FOR SLEEP Last Documented On 12/09/2022 5:29PM By Radha Vincent MD ; [facility] Mydayis 37.5 MG OR CP24 05/07/2019 - 06/09/2019 Provider: EILEEN VINCENT MD Diagnosis: Attention-defici t hyperactivity disorder, other type 1 Capsule every morning Last Documented On 12/09/2022 5:29PM By Radha Vincent MD ; [facility] Wellbutrin XL 300 MG OR TB24 05/06/2019 - 04/10/2019 Provider: EILEEN VINCENT MD Diagnosis: Major depressive disorder, single episode, unspecified TAKE ONE TABLET BY MOUTH EVERY MORNING Last Documented On 12/09/2022 5:29PM By Radha Vincent MD ; [facility] Ferrous Sulfate 325 (65 Fe) MG OR TABS 04/10/2019 - Provider: Diagnosis: 1 tab daily Last Documented On 04/18/2023 10:30AM By WISAM CASH ; [facility] Mydayis 37.5 MG OR CP24 04/10/2019 - 05/07/2019 Provider: EILEEN VINCENT MD Diagnosis: Attention-defici t hyperactivity disorder, other type 1 Capsule every morning Last Documented On 12/09/2022 5:29PM By Radha Vincent MD ; [facility] Mydayis 37.5 MG OR CP24 03/06/2019 - 04/10/2019 Provider: EILEEN VINCENT MD Diagnosis: Attention-defici t hyperactivity disorder, other type 1 Capsule every morning Last Documented On 12/09/2022 5:29PM By Radha Vincent MD ; [facility] Mydayis 37.5 MG OR CP24 01/29/2019 - 03/06/2019 Provider: EILEEN VINCENT MD Diagnosis: Attention-defici t hyperactivity disorder, other type 1 Capsule every morning Last Documented On 12/09/2022 5:29PM By Radha Vincent MD ; [facility] Mydayis 25 MG OR CP24 12/24/2018 - 08/21/2019 Provider: EILEEN VINCENT MD Diagnosis: Attention-defici t hyperactivity disorder, other type 1 Capsule every morning Last Documented On 12/09/2022 5:29PM By Radha Vincent MD ; [facility] Mydayis 37.5 MG OR CP24 12/24/2018 - 01/29/2019 Provider: EILEEN VINCENT MD Diagnosis: Attention-defici t hyperactivity disorder, other type 1 Capsule every morning Last Documented On 12/09/2022 5:29PM By Radha Vincent MD ; [facility] Mydayis 25 MG OR CP24 12/18/2018 - 08/21/2019 Provider: EILEEN VINCENT MD Diagnosis: Attention-defici t hyperactivity disorder, other type 1 Capsule every morning Last Documented On 12/09/2022 5:29PM By Radha Vincent MD ; [facility] LaMICtal 150 MG OR TABS 12/02/2018 - 04/10/2019 Provider: EILEEN VINCENT MD Diagnosis: Bipolar disorder , unspecified ONE TABLET TWICE A DAY Last Documented On 12/09/2022 5:29PM By Radha Vincent MD ; [facility] Namzaric 28-10 MG OR CP24 12/02/2018 - 04/10/2019 Provider: EILEEN CONNORS MD Diagnosis: Dem in oth dis c lassd elswhr,unsp sev,w/o beh/psych/mood/anx 1 Capsule every morning Last Documented On 12/09/2022 5:29PM By Radha Vincent MD ; [facility] Wellbutrin XL 300 MG OR TB24 12/02/2018 - 05/06/2019 Provider: EILEEN VINCENT MD Diagnosis: Major depressive disorder, single episode, unspecified 1 tablet every morning Last Documented On 12/09/2022 5:29PM By Radha Vincent MD ; [facility] traZODone HCl 50 MG OR TABS 11/28/2018 - 04/10/2019 Provider: EILEEN VINCENT MD Diagnosis: Psychophysiologi c insomnia DIRECTED --1 OR 2 TABS AT BEDTIME NEEDED FOR SLEEP Last Documented On 12/09/2022 5:29PM By Radha Vincent MD ; [facility] Mydayis 25 MG OR CP24 11/28/2018 - 12/18/2018 Provider: EILEEN VINCENT MD Diagnosis: Attention-defici t hyperactivity disorder, other type 1 Capsule every morning Last Documented On 12/09/2022 5:29PM By Radha Vincent MD ; [facility] Mydayis 25 MG OR CP24 10/22/2018 - 11/28/2018 Provider: EILEEN VINCENT MD Diagnosis: Attention-defici t hyperactivity disorder, other type 1 Capsule every morning Last Documented On 12/09/2022 5:29PM By Radha Vincent MD ; [facility] LaMICtal 150 MG OR TABS 10/14/2018 - 11/28/2018 Provider: EILEEN VINCENT MD Diagnosis: Bipolar disorder , unspecified ONE TABLET TWICE A DAY Last Documented On 12/09/2022 5:29PM By Radha Vincent MD ; [facility] Mydayis 25 MG OR CP24 09/30/2018 - 10/22/2018 Provider: EILEEN VINCENT MD Diagnosis: Attention-defici t hyperactivity disorder, other type 1 Capsule every morning Last Documented On 12/09/2022 5:29PM By Radha Vincent MD ; [facility] LaMICtal 150 MG OR TABS 09/24/2018 - 09/27/2018 Provider: EILEEN VINCENT MD Diagnosis: Bipolar disorder , unspecified One tablet twice a day Last Documented On 12/09/2022 5:29PM By Radha Vincent MD ; [facility] Mydayis 25 MG OR CP24 08/22/2018 - 09/30/2018 Provider: EILEEN VINCENT MD Diagnosis: Attention-defici t hyperactivity disorder, other type 1 Capsule every morning Last Documented On 12/09/2022 5:29PM By Radha Vincent MD ; [facility] prednisoLONE Sodium Phosphate 1% OP SOLN 08/20/2018 - 04/05/2022 Provider: Diagnosis: 1 drop in left eye in the morning Last Documented On 12/09/2022 5:29PM By WISAM CASH ; [facility] Namzaric 28-10 MG OR CP24 08/02/2018 - 11/28/2018 Provider: EILEEN CONNORS MD Diagnosis: Dem in oth dis c lassd elswhr,unsp sev,w/o beh/psych/mood/anx 1 Capsule every morning Last Documented On 12/09/2022 5:29PM By Radha Vincent MD ; [facility] Mydayis 25 MG OR CP24 07/15/2018 - 08/22/2018 Provider: EILEEN VINCENT MD Diagnosis: Attention-defici t hyperactivity disorder, other type 1 Capsule every morning Last Documented On 12/09/2022 5:29PM By Radha Vincent MD ; [facility] Escitalopram Oxalate 20 MG OR TABS 07/01/2018 - 04/10/2019 Provider: EILEEN VINCENT MD Diagnosis: Generalized anxi ety disorder ONE TABLET DAILY Last Documented On 12/09/2022 5:29PM By Radha Vincent MD ; [facility] Wellbutrin XL 300 MG OR TB24 06/17/2018 - 11/28/2018 Provider: EILEEN VINCENT MD Diagnosis: Major depressive disorder, single episode, unspecified 1 tablet every morning Last Documented On 12/09/2022 5:29PM By Radha Vincent MD ; [facility] busPIRone HCl 15 MG OR TABS 06/17/2018 - 04/10/2019 Provider: EILEEN VINCENT MD Diagnosis: Generalized anxi ety disorder One tablet three times a day Last Documented On 12/09/2022 5:29PM By Radha Vincent MD ; [facility] Namzaric 28-10 MG OR CP24 06/17/2018 - 08/02/2018 Provider: EILEEN CONNORS MD Diagnosis: Dem in oth dis c lassd elswhr,unsp sev,w/o beh/psych/mood/anx 1 Capsule every morning Last Documented On 12/09/2022 5:29PM By Radha Vincent MD ; [facility] traZODone HCl 50 MG OR TABS 06/17/2018 - 11/28/2018 Provider: EILEEN VINCENT MD Diagnosis: Psychophysiologi c insomnia DIRECTED --1 OR 2 TABS AT BEDTIME NEEDED FOR SLEEP Last Documented On 12/09/2022 5:29PM By Radha Vincent MD ; [facility] LaMICtal 150 MG OR TABS 06/17/2018 - 10/14/2018 Provider: EILEEN VINCENT MD Diagnosis: Bipolar disorder , unspecified ONE TABLET TWICE A DAY Last Documented On 12/09/2022 5:29PM By Radha Vincent MD ; [facility] Escitalopram Oxalate 20 MG OR TABS 06/17/2018 - 07/01/2018 Provider: EILEEN VINCENT MD Diagnosis: Generalized anxi ety disorder One tablet daily Last Documented On 12/09/2022 5:29PM By Radha Vincent MD ; [facility] Mydayis 25 MG OR CP24 06/12/2018 - 07/15/2018 Provider: EILEEN VINCENT MD Diagnosis: Attention-defici t hyperactivity disorder, other type 1 Capsule every morning Last Documented On 12/09/2022 5:29PM By Radha Vincent MD ; [facility] Mydayis 25 MG OR CP24 05/24/2018 - 06/12/2018 Provider: EILEEN VINCENT MD Diagnosis: Attention-defici t hyperactivity disorder, other type 1 Capsule every morning Last Documented On 12/09/2022 5:29PM By Radha Vincent MD ; [facility] Famotidine 40 MG OR TABS 04/24/2018 - 08/21/2019 Provi itz: Diagnosis: 1 tab bid Last Documented On 12/09/2022 5:29PM By WISAM CASH ; [facility] Moxifloxacin HCl 0.5% OP SOLN 04/22/2018 - 08/21/2019 Provider: Diagnosis: 1 drop in left eye daily Last Documented On 12/09/2022 5:29PM By WISAM CASH ; [facility] Mydayis 25 MG OR CP24 04/09/2018 - 05/24/2018 Provider: EILEEN VINCENT MD Diagnosis: Attention-defici t hyperactivity disorder, other type 1 Capsule every morning Last Documented On 12/09/2022 5:29PM By Radha Vincent MD ; [facility] Mydayis 25 MG OR CP24 03/11/2018 - 06/12/2018 Provider: EILEEN VINCENT MD Diagnosis: Attention-defici t hyperactivity disorder, other type 1 Capsule every morning Last Documented On 12/09/2022 5:29PM By Radha Vincent MD ; [facility] Mydayis 25 MG OR CP24 02/15/2018 - 03/11/2018 Provider: EILEEN VINCENT MD Diagnosis: Attention-defici t hyperactivity disorder, other type 1 Capsule every morning Last Documented On 12/09/2022 5:29PM By Radha Vincent MD ; [facility] Wellbutrin XL 300 MG OR TB24 01/04/2018 - 06/12/2018 Provider: EILEEN VINCENT MD Diagnosis: Bipolar disorder , current episode depressed, moderate 1 tablet every morning Last Documented On 12/09/2022 5:29PM By Radha Vincent MD ; [facility] traZODone HCl 50 MG OR TABS 01/04/2018 - 06/12/2018 Provider: EILEEN VINCENT MD Diagnosis: Psychophysiologi c insomnia DIRECTED --1 OR 2 TABS AT BEDTIME NEEDED FOR SLEEP Last Documented On 12/09/2022 5:29PM By Radha Vincent MD ; [facility] Namzaric 28-10 MG OR CP24 01/04/2018 - 06/12/2018 Provider: EILEEN CONNORS MD Diagnosis: Dem in oth dis c lassd elswhr,unsp sev,w/o beh/psych/mood/anx 1 Capsule every morning Last Documented On 12/09/2022 5:29PM By Radha Vincent MD ; [facility] busPIRone HCl 15 MG OR TABS 01/04/2018 - 06/12/2018 Provider: EILEEN VINCENT MD Diagnosis: Generalized anxi ety disorder One tablet three times a day Last Documented On 12/09/2022 5:29PM By Radha Vincent MD ; [facility] LaMICtal 150 MG OR TABS 01/04/2018 - 06/12/2018 Provider: EILEEN VINCENT MD Diagnosis: Bipolar disorder , unspecified ONE TABLET TWICE A DAY Last Documented On 12/09/2022 5:29PM By Radha Vincent MD ; [facility] Vyvanse 50 MG OR CAPS 01/03/2018 - 01/14/2018 Provider: EILEEN VINCENT MD Diagnosis: Attention-defici t hyperactivity disorder, other type 1 Capsule every morning Last Documented On 12/09/2022 5:29PM By Radha Vincent MD ; [facility] Dicyclomine HCl 10 MG OR CAPS 01/03/2018 - 06/12/2018 Provider: Diagnosis: Last Documented On 12/09/2022 5:29PM By Radha Vincent MD ; [facility] Mydayis 25 MG OR CP24 01/03/2018 - 02/15/2018 Provider: EILEEN VINCENT MD Diagnosis: Attention-defici t hyperactivity disorder, other type 1 Capsule every morning Last Documented On 12/09/2022 5:29PM By Radha Vincent MD ; [facility] traZODone HCl 50 MG OR TABS 12/17/2017 - 01/03/2018 Pr ovider: EILEEN VINCENT MD Diagnosis: DIRECTED --1 OR 2 TABS AT BEDTIME NEEDED FOR SLEEP Last Documented On 12/09/2022 5:29PM By Radha Vincent MD ; [facility] Vyvanse 50 MG OR CAPS 12/14/2017 - 12/14/2017 Provider: EILEEN VINCENT MD Diagnosis: Attention-defici t hyperactivity disorder, other type 1 Capsule every morning Last Documented On 12/09/2022 5:29PM By Radha Vincent MD ; [facility] Namzaric 28-10 MG OR CP24 12/14/2017 - 01/03/2018 Provider: EILEEN CONNORS MD Diagnosis: Dem in oth dis c lassd elswhr,unsp sev,w/o beh/psych/mood/anx 1 Capsule every morning Last Documented On 12/09/2022 5:29PM By Radha Vincent MD ; [facility] Vyvanse 50 MG OR CAPS 12/14/2017 - 01/03/2018 Provider: EILEEN VINCENT MD Diagnosis: Attention-defici t hyperactivity disorder, other type 1 Capsule every morning Last Documented On 12/09/2022 5:29PM By Radha Vincent MD ; [facility] Vyvanse 50 MG OR CAPS 11/15/2017 - 12/14/2017 Provider: EILEEN VINCENT MD Diagnosis: Attention-defici t hyperactivity disorder, other type 1 Capsule every morning Last Documented On 12/09/2022 5:29PM By Radha Vincent MD ; [facility] Vyvanse 50 MG OR CAPS 10/24/2017 - 11/15/2017 Provider: EILEEN VINCENT MD Diagnosis: Attention-defici t hyperactivity disorder, other type 1 Capsule every morning Last Documented On 12/09/2022 5:29PM By Radha Vincent MD ; [facility] Namzaric 28-10 MG OR CP24 09/07/2017 - 12/14/2017 Provider: EILEEN CONNORS MD Diagnosis: Dem in oth dis c lassd elswhr,unsp sev,w/o beh/psych/mood/anx 1 Capsule every morning Last Documented On 12/09/2022 5:29PM By Radha Vincent MD ; [facility] LaMICtal 150 MG OR TABS 09/07/2017 - 01/03/2018 Provider: EILEEN VINCENT MD Diagnosis: Bipolar disorder , unspecified ONE TABLET TWICE A DAY Last Documented On 12/09/2022 5:29PM By Radha Vincent MD ; [facility] Wellbutrin XL 300 MG OR TB24 09/07/2017 - 01/03/2018 Provider: EILEEN IVNCENT MD Diagnosis: Bipolar disorder , current episode depressed, moderate 1 tablet every morning Last Documented On 12/09/2022 5:29PM By Radha Vincent MD ; [facility] busPIRone HCl 15 MG OR TABS 09/07/2017 - 01/03/2018 Provider: EILEEN VINCENT MD Diagnosis: Generalized anxi ety disorder One tablet three times a day Last Documented On 12/09/2022 5:29PM By Radha Vincent MD ; [facility] Vyvanse 50 MG OR CAPS 09/06/2017 - 10/24/2017 Provider: EILEEN VINCENT MD Diagnosis: Attention-defici t hyperactivity disorder, other type 1 Capsule every morning Last Documented On 12/09/2022 5:29PM By Radha Vincent MD ; [facility] traZODone HCl 50 MG OR TABS 08/28/2017 - 12/17/2017 Pr ovider: EILEEN VINCENT MD Diagnosis: DIRECTED --1 OR 2 TABS AT BEDTIME NEEDED FOR SLEEP Last Documented On 12/09/2022 5:29PM By Radha Vincent MD ; [facility] LaMICtal 150 MG OR TABS 08/27/2017 - 09/06/2017 Provid er: EILEEN VINCENT MD Diagnosis: ONE TABLET TWICE A DAY Last Documented On 12/09/2022 5:29PM By Radha Vincent MD ; [facility] Vyvanse 40 MG OR CAPS 08/14/2017 - 06/12/2018 Provider: EILEEN VINCENT MD Diagnosis: Attention-defici t hyperactivity disorder, other type 1 Capsule every morning Last Documented On 12/09/2022 5:29PM By Radha Vincent MD ; [facility] Vyvanse 40 MG OR CAPS 07/10/2017 - 08/14/2017 Provider: EILEEN VINCENT MD Diagnosis: Attention-defici t hyperactivity disorder, other type 1 Capsule every morning Last Documented On 12/09/2022 5:29PM By Radha Vincent MD ; [facility] Vyvanse 40 MG OR CAPS 06/04/2017 - 07/10/2017 Provider: EILEEN VINCENT MD Diagnosis: Attention-defici t hyperactivity disorder, other type 1 Capsule every morning Last Documented On 12/09/2022 5:29PM By Radha Vincent MD ; [facility] Vyvanse 40 MG OR CAPS 06/01/2017 - 06/04/2017 Provider: EILEEN VINCENT MD Diagnosis: Attention-defici t hyperactivity disorder, other type 1 Capsule every morning Last Documented On 12/09/2022 5:29PM By Radha Vincent MD ; [facility] busPIRone HCl 15 MG OR TABS 05/09/2017 - 09/06/2017 Provider: EILEEN VINCENT MD Diagnosis: Generalized anxi ety disorder One tablet three times a day Last Documented On 12/09/2022 5:29PM By Radha Vincent MD ; [facility] Escitalopram Oxalate 20 MG OR TABS 05/09/2017 - 06/12/2018 Provider: EILEEN VINCENT MD Diagnosis: Generalized anxi ety disorder One tablet daily Last Documented On 12/09/2022 5:29PM By Radha Vincent MD ; [facility] Namzaric 28-10 MG OR CP24 05/09/2017 - 09/06/2017 Provider: EILEEN CONNORS MD Diagnosis: Dem in oth dis c lassd elswhr,unsp sev,w/o beh/psych/mood/anx 1 Capsule every morning Last Documented On 12/09/2022 5:29PM By Radha Vincent MD ; [facility] Vyvanse 40 MG OR CAPS 05/09/2017 - 06/01/2017 Provider: EILEEN VINCENT MD Diagnosis: Attention-defici t hyperactivity disorder, other type 1 Capsule every morning Last Documented On 12/09/2022 5:29PM By Radha Vincent MD ; [facility] traZODone HCl 50 MG OR TABS 05/09/2017 - 08/28/2017 Provider: EILEEN VINCENT MD Diagnosis: Psychophysiologi c insomnia as directed --1 or 2 tabs at bedtime as needed for sleep Last Documented On 12/09/2022 5:29PM By Radha Vincent MD ; [facility] LaMICtal 150 MG OR TABS 05/09/2017 - 08/27/2017 Provider: EILEEN VINCENT MD Diagnosis: Bipolar disorder , unspecified One tablet twice a day Last Documented On 12/09/2022 5:29PM By Radha Vincent MD ; [facility] Wellbutrin XL 300 MG OR TB24 05/09/2017 - 09/06/2017 Provider: EILEEN VINCENT MD Diagnosis: Bipolar disorder , current episode depressed, moderate 1 tablet every morning Last Documented On 12/09/2022 5:29PM By Radha Vincent MD ; [facility] Vyvanse 30 MG OR CAPS 05/07/2017 - 05/09/2017 Provider: EILEEN VINCENT MD Diagnosis: Attention-defici t hyperactivity disorder, other type 1 Capsule every morning Last Documented On 12/09/2022 5:29PM By Radha Vincent MD ; [facility] Vyvanse 40 MG OR CAPS 05/07/2017 - 05/09/2017 Provider: EILEEN VINCENT MD Diagnosis: Attention-defici t hyperactivity disorder, other type 1 Capsule every morning Last Documented On 12/09/2022 5:29PM By Radha Vincent MD ; [facility] busPIRone HCl 15 MG OR TABS 04/11/2017 - 05/09/2017 Provider: EILEEN VINCENT MD Diagnosis: Generalized anxi ety disorder One tablet three times a day Last Documented On 12/09/2022 5:29PM By Radha Vincent MD ; [facility] Namzaric 28-10 MG OR CP24 04/09/2017 - 05/09/2017 Provider: EILEEN CONNORS MD Diagnosis: Dem in oth dis c lassd elswhr,unsp sev,w/o beh/psych/mood/anx as directed Last Documented On 12/09/2022 5:29PM By Radha Vincent MD ; [facility] traZODone HCl 50 MG OR TABS 04/09/2017 - 05/09/2017 Provider: EILEEN VINCENT MD Diagnosis: Psychophysiologi c insomnia as directed --1 or 2 tabs at bedtime as needed for sleep Last Documented On 12/09/2022 5:29PM By Radha Vincent MD ; [facility] Escitalopram Oxalate 20 MG OR TABS 04/09/2017 - 05/09/2017 Provider: EILEEN VINCENT MD Diagnosis: Generalized anxi ety disorder One tablet daily Last Documented On 12/09/2022 5:29PM By Radha Vincent MD ; [facility] busPIRone HCl 15 MG OR TABS 04/09/2017 - 04/11/2017 Provider: EILEEN VINCENT MD Diagnosis: Generalized anxi ety disorder One tablet three times a day --called in 90 and 6 RF on 09/20/16 Last Documented On 12/09/2022 5:29PM By Radha Vincent MD ; [facility] LaMICtal 150 MG OR TABS 04/09/2017 - 05/09/2017 Provider: EILEEN VINCENT MD Diagnosis: Bipolar disorder , unspecified One tablet twice a day Last Documented On 12/09/2022 5:29PM By Radha Vincent MD ; [facility] Terbinafine HCl 250 MG OR TABS 04/06/2017 - 01/03/2018 Provider: Diagnosis: 1 daily Last Documented On 12/09/2022 5:29PM By WILMER REDDY LPN ; [facility] Vyvanse 30 MG OR CAPS 04/06/2017 - 05/07/2017 Provider: EILEEN VINCENT MD Diagnosis: Attention-defici t hyperactivity disorder, other type 1 Capsule every morning Last Documented On 12/09/2022 5:29PM By Radha Vincent MD ; [facility] Focalin 10 MG OR TABS 02/12/2017 - 04/06/2017 Provider: EILEEN VINCENT MD Diagnosis: Attention-defici t hyperactivity disorder, other type as directed --10 mg in am an d 10 mg at noon Last Documented On 12/09/2022 5:29PM By Radha Vincent MD ; [facility] Escitalopram Oxalate 20 MG OR TABS 02/12/2017 - 04/06/2017 Provider: EILEEN VINCENT MD Diagnosis: Generalized anxi ety disorder One tablet daily Last Documented On 12/09/2022 5:29PM By Radha Vincent MD ; [facility] LaMICtal 150 MG OR TABS 02/12/2017 - 04/06/2017 Provider: EILEEN VINCENT MD Diagnosis: Bipolar disorder , unspecified One tablet twice a day Last Documented On 12/09/2022 5:29PM By Radha Vincent MD ; [facility] busPIRone HCl 15 MG OR TABS 02/12/2017 - 04/06/2017 Provider: EILEEN VINCENT MD Diagnosis: Generalized anxi ety disorder One tablet three times a day --called in 90 and 6 RF on 09/20/16 Last Documented On 12/09/2022 5:29PM By Radha Vincent MD ; [facility] Namzaric 28-10 MG OR CP24 02/12/2017 - 04/06/2017 Provider: EILEEN CONNORS MD Diagnosis: Dem in oth dis c lassd elswhr,unsp sev,w/o beh/psych/mood/anx as directed Last Documented On 12/09/2022 5:29PM By Radha Vincent MD ; [facility] traZODone HCl 50 MG OR TABS 02/12/2017 - 04/06/2017 Provider: EILEEN VINCENT MD Diagnosis: Psychophysiologi c insomnia as directed --1 or 2 tabs at bedtime as needed for sleep Last Documented On 12/09/2022 5:29PM By Radha Vincent MD ; [facility] Wellbutrin XL 300 MG OR TB24 02/09/2017 - 05/09/2017 Provider: EILEEN VINCENT MD Diagnosis: Bipolar disorder , current episode depressed, moderate 1 tablet every morning Last Documented On 12/09/2022 5:29PM By Radha Vincent MD ; [facility] Focalin 10 MG OR TABS 01/16/2017 - 04/06/2017 Provider: EILEEN VINCENT MD Diagnosis: Attention-defici t hyperactivity disorder, other type 1 tablet every morning Last Documented On 12/09/2022 5:29PM By Radha Vincent MD ; [facility] LaMICtal 150 MG OR TABS 10/23/2016 - 01/16/2017 Provider: EILEEN VINCENT MD Diagnosis: Bipolar disorder , unspecified One tablet twice a day Last Documented On 12/09/2022 5:29PM By Radha Vincent MD ; [facility] Wellbutrin XL 300 MG OR TB24 10/23/2016 - 02/09/2017 Provider: EILEEN VINCENT MD Diagnosis: Bipolar disorder , current episode depressed, moderate 1 tablet every morning Last Documented On 12/09/2022 5:29PM By Radha Vincent MD ; [facility] busPIRone HCl 15 MG OR TABS 10/23/2016 - 01/16/2017 Provider: EILEEN VINCENT MD Diagnosis: Generalized anxi ety disorder One tablet three times a day --called in 90 and 6 RF on 09/20/16 Last Documented On 12/09/2022 5:29PM By Radha Vincent MD ; [facility] traZODone HCl 50 MG OR TABS 10/23/2016 - 01/16/2017 Provider: EILEEN VINCENT MD Diagnosis: Psychophysiologi c insomnia as directed --1 or 2 tabs at bedtime as needed for sleep Last Documented On 12/09/2022 5:29PM By Radha Vincent MD ; [facility] Escitalopram Oxalate 20 MG OR TABS 10/23/2016 - 01/16/2017 Provider: EILEEN VINCENT MD Diagnosis: Generalized anxi ety disorder One tablet daily Last Documented On 12/09/2022 5:29PM By Radha Vincent MD ; [facility] Namzaric 28-10 MG OR CP24 10/12/2016 - 01/16/2017 Provider: EILEEN CONNORS MD Diagnosis: Dem in oth dis c lassd elswhr,unsp sev,w/o beh/psych/mood/anx as directed Last Documented On 12/09/2022 5:29PM By Radha Vincent MD ; [facility] busPIRone HCl 15 MG OR TABS 09/20/2016 - 10/12/2016 Provider: EILEEN VINCENT MD Diagnosis: Generalized anxi ety disorder One tablet three times a day --called in 90 and 6 RF on 09/20/16 Last Documented On 12/09/2022 5:29PM By Radha Vincent MD ; [facility] Escitalopram Oxalate 20 MG OR TABS 08/01/2016 - 10/12/2016 Provider: EILEEN VINCENT MD Diagnosis: Generalized anxi ety disorder One tablet daily Last Documented On 12/09/2022 5:29PM By Radha Vincent MD ; [facility] busPIRone HCl 15 MG OR TABS 08/01/2016 - 09/20/2016 Provider: EILEEN VINCENT MD Diagnosis: Generalized anxi ety disorder One tablet three times a day Last Documented On 12/09/2022 5:29PM By Radha Vincent MD ; [facility] Terbinafine HCl 250 MG OR TABS 08/01/2016 - 01/16/2017 Provider: Diagnosis: 1 daily Last Documented On 12/09/2022 5:29PM By WILMER REDDY LPN ; [facility] traZODone HCl 50 MG OR TABS 08/01/2016 - 10/12/2016 Provider: EILEEN CONNORS MD Diagnosis: Oth insomnia not due to a substance or known physiol cond as directed --1 or 2 tabs at bedtime as needed for sleep Last Documented On 12/09/2022 5:29PM By Radha Vincent MD ; [facility] Namenda XR 28 MG OR CP24 08/01/2016 - 10/23/2016 Provider: EILEEN CONNORS MD Diagnosis: Unsp dementia, u nsp severity, without beh/psych/mood/anx 1 Capsule every morning Last Documented On 12/09/2022 5:29PM By Radha Vincent MD ; [facility] LaMICtal 150 MG OR TABS 08/01/2016 - 10/12/2016 Provider: EILEEN CONNORS MD Diagnosis: Bipolar disord, crnt epsd depress, mild or mod severt, unsp One tablet twice a day Last Documented On 12/09/2022 5:29PM By Radha Vincent MD ; [facility] Aricept 23 MG OR TABS 08/01/2016 - 10/23/2016 Provider: EILEEN CONNORS MD Diagnosis: Unsp dementia, u nsp severity, without beh/psych/mood/anx One tablet daily Last Documented On 12/09/2022 5:29PM By Radha Vincent MD ; [facility] Aricept 23 MG OR TABS 07/28/2016 - 08/01/2016 Provider: EILEEN CONNORS MD Diagnosis: Unsp dementia, u nsp severity, without beh/psych/mood/anx One tablet daily Last Documented On 12/09/2022 5:29PM By Radha Vincent MD ; [facility] traZODone HCl 50 MG OR TABS 07/28/2016 - 08/01/2016 Provider: EILEEN CONNORS MD Diagnosis: Oth insomnia not due to a substance or known physiol cond as directed --1 or 2 tabs at bedtime as needed for sleep Last Documented On 12/09/2022 5:29PM By Radha Vincent MD ; [facility] LaMICtal 150 MG OR TABS 06/27/2016 - 08/01/2016 Provider: EILEEN CONNORS MD Diagnosis: Bipolar disord, crnt epsd depress, mild or mod severt, unsp One tablet twice a day Last Documented On 12/09/2022 5:29PM By Radha Vincent MD ; [facility] Namenda XR 28 MG OR CP24 03/13/2016 - 08/01/2016 Provider: EILEEN CONNORS MD Diagnosis: Unsp dementia, u nsp severity, without beh/psych/mood/anx 1 Capsule every morning -- h as 2 RF left as of 03/13/16 -- [facility] Last Documented On 12/09/2022 5:29PM By Radha Vincent MD ; [facility] LaMICtal 150 MG OR TABS 03/13/2016 - 06/27/2016 Provider: EILEEN CONNORS MD Diagnosis: Bipolar disord, crnt epsd depress, mild or mod severt, unsp One tablet twice a day Last Documented On 12/09/2022 5:29PM By Radha Vincent MD ; [facility] Wellbutrin XL 300 MG OR TB24 03/13/2016 - 10/12/2016 Provider: EILEEN VINCENT MD Diagnosis: Bipolar disorder , current episode depressed, moderate 1 tablet every morning Last Documented On 12/09/2022 5:29PM By Radha Vincent MD ; [facility] traZODone HCl 50 MG OR TABS 03/13/2016 - 07/28/2016 Provider: EILEEN CONNORS MD Diagnosis: Oth insomnia not due to a substance or known physiol cond as directed --1 or 2 tabs at bedtime as needed for sleep Last Documented On 12/09/2022 5:29PM By Radha Vincent MD ; [facility] Aricept 23 MG OR TABS 03/13/2016 - 07/28/2016 Provider: EILEEN CONNORS MD Diagnosis: Unsp dementia, u nsp severity, without beh/psych/mood/anx One tablet daily Last Documented On 12/09/2022 5:29PM By Radha Vincent MD ; [facility] Escitalopram Oxalate 20 MG OR TABS 03/13/2016 - 08/01/2016 Provider: EILEEN VINCENT MD Diagnosis: Generalized anxi ety disorder One tablet daily Last Documented On 12/09/2022 5:29PM By Radha Vincent MD ; [facility] busPIRone HCl 15 MG OR TABS 03/13/2016 - 08/01/2016 Provider: EILEEN VINCENT MD Diagnosis: Generalized anxi ety disorder One tablet three times a day Last Documented On 12/09/2022 5:29PM By Radha Vincent MD ; [facility] Escitalopram Oxalate 20 MG OR TABS 03/09/2016 - 03/13/2016 Provider: EILEEN VINCENT MD Diagnosis: Generalized anxi ety disorder One tablet daily Last Documented On 12/09/2022 5:29PM By Radha Vincent MD ; [facility] Escitalopram Oxalate 20 MG Tablet 03/08/2016 - 04/18/2023 Provider: URIEL BA MD Diagnosis: One tablet daily Last Documented On 04/18/2023 10:30AM By WISAM CASH ; [facility] Levothyroxine Sodium 88 MCG OR TABS 03/04/2016 - 04/21 Provider: Diagnosis: 1 tablet daily Last Documented On 12/09/2022 5:29PM By WILMER REDDY LPN ; [facility] Wellbutrin XL 300 MG OR TB24 02/17/2016 - 03/13/2016 Provider: EILEEN VINCENT MD Diagnosis: Bipolar disorder , current episode depressed, moderate 1 tablet every morning Last Documented On 12/09/2022 5:29PM By Radha Vincent MD ; [facility] Wellbutrin XL 300 MG OR TB24 02/07/2016 - 02/17/2016 Provider: EILEEN VINCENT MD Diagnosis: Bipolar disorder , current episode depressed, moderate 1 tablet every morning Last Documented On 12/09/2022 5:29PM By Radha Vincent MD ; [facility] Namenda XR 28 MG OR CP24 01/17/2016 - 03/13/2016 Provider: EILEEN CONNORS MD Diagnosis: Unsp dementia, u nsp severity, without beh/psych/mood/anx 1 Capsule every morning Last Documented On 12/09/2022 5:29PM By Radha Vincent MD ; [facility] Namenda XR 28 MG OR CP24 01/12/2016 - 01/17/2016 Provider: EILEEN CONNORS MD Diagnosis: Unsp dementia, u nsp severity, without beh/psych/mood/anx 1 Capsule every morning Last Documented On 12/09/2022 5:29PM By Radha Vincent MD ; [facility] Dicyclomine HCl 10 MG OR CAPS 11/10/2015 - 09/14/2023 Provider: Diagnosis: 1 capsule daily Last Documented On 09/14/2023 11:16AM By WISAM CASH ; [facility] Calcium 600+D 600-400 MG-UNIT OR TABS 11/10/2015 - 12/2021 Provider: Diagnosis: 1 tablet twice a day Last Documented On 12/09/2022 5:29PM By WILMER REDDY LPN ; [facility] Omeprazole 20 MG OR TBEC 11/10/2015 - 12/15/2019 Provi itz: Diagnosis: 1 tablet daily Last Documented On 12/09/2022 5:29PM By WILMER REDDY LPN ; [facility] amLODIPine Besy-Benazepril HCl 5-10 MG OR CAPS 0 11/10/2015 - 03/13/2016 Provider: Diagnosis: 1 capsule daily Last Documented On 12/09/2022 5:29PM By WILMER REDDY LPN ; [facility] Metoprolol Tartrate 25 MG OR TABS 10/09/2015 - 018 Provider: Diagnosis: Take 1/2 tablet two times a day Last Documented On 12/09/2022 5:29PM By WILMER REDDY LPN ; [facility] Pantoprazole Sodium 40 MG OR TBEC 09/30/2015 - 018 Provider: Diagnosis: 1 tablet daily Last Documented On 12/09/2022 5:29PM By WILMER REDDY LPN ; [facility] Namenda XR 28 MG OR CP24 07/29/2015 - 01/12/2016 Provider: EILEEN CONNORS MD Diagnosis: Unsp dementia, u nsp severity, without beh/psych/mood/anx 1 Capsule every morning Last Documented On 12/09/2022 5:29PM By Radha Vincent MD ; [facility] traZODone HCl 50 MG OR TABS 07/29/2015 - 03/13/2016 Provider: EILEEN CONNORS MD Diagnosis: Oth insomnia not due to a substance or known physiol cond One tablet at bed time Last Documented On 12/09/2022 5:29PM By Radha Vincent MD ; [facility] Aricept 23 MG OR TABS 07/29/2015 - 03/13/2016 Provider: EILEEN CONNORS MD Diagnosis: Unsp dementia, u nsp severity, without beh/psych/mood/anx One tablet daily Last Documented On 12/09/2022 5:29PM By Radha Vincent MD ; [facility] Escitalopram Oxalate 20 MG OR TABS 07/29/2015 - 03/09/2016 Provider: EILEEN VINCENT MD Diagnosis: Generalized anxi ety disorder One tablet daily Last Documented On 12/09/2022 5:29PM By Radha Vincent MD ; [facility] Wellbutrin XL 300 MG OR TB24 07/29/2015 - 02/07/2016 Provider: EILEEN VINCENT MD Diagnosis: Bipolar disorder , current episode depressed, moderate 1 tablet every morning Last Documented On 12/09/2022 5:29PM By Radha Vincent MD ; [facility] LaMICtal 150 MG OR TABS 07/29/2015 - 03/13/2016 Provider: EILEEN CONNORS MD Diagnosis: Bipolar disord, crnt epsd depress, mild or mod severt, unsp One tablet twice a day Last Documented On 12/09/2022 5:29PM By Radha Vincent MD ; [facility] busPIRone HCl 10 MG OR TABS 07/29/2015 - 09/20/2016 Provider: EILEEN VINCENT MD Diagnosis: Generalized anxi ety disorder One tablet three times a day Last Documented On 12/09/2022 5:29PM By Radha Vincent MD ; [facility] busPIRone HCl 10 MG OR TABS 05/24/2015 - 07/29/2015 Provider: EILEEN VINCENT MD Diagnosis: Generalized anxi ety disorder One tablet three times a day Last Documented On 12/09/2022 5:29PM By Radha Vincent MD ; [facility] Namenda XR 28 MG OR CP24 05/24/2015 - 07/29/2015 Provider: EILEEN CONNORS MD Diagnosis: Unsp dementia, u nsp severity, without beh/psych/mood/anx 1 Capsule every morning Last Documented On 12/09/2022 5:29PM By Radha Vincent MD ; [facility] LaMICtal 150 MG OR TABS 05/24/2015 - 07/29/2015 Provider: EILEEN CONNORS MD Diagnosis: Bipolar disord, crnt epsd depress, mild or mod severt, unsp One tablet twice a day Last Documented On 12/09/2022 5:29PM By Radha Vincent MD ; [facility] Wellbutrin XL 300 MG OR TB24 05/24/2015 - 07/29/2015 Provider: EILEEN VINCENT MD Diagnosis: Bipolar disorder , current episode depressed, moderate 1 tablet every morning Last Documented On 12/09/2022 5:29PM By Radha Vincent MD ; [facility] traZODone HCl 50 MG OR TABS 05/24/2015 - 07/29/2015 Provider: EILEEN CONNORS MD Diagnosis: Oth insomnia not due to a substance or known physiol cond One tablet at bed time Last Documented On 12/09/2022 5:29PM By Radha Vincent MD ; [facility] Aricept 23 MG OR TABS 05/24/2015 - 07/29/2015 Provider: EILEEN CNONORS MD Diagnosis: Unsp dementia, u nsp severity, without beh/psych/mood/anx One tablet daily Last Documented On 12/09/2022 5:29PM By Radha Vincent MD ; [facility] Escitalopram Oxalate 20 MG OR TABS 05/24/2015 - 07/29/2015 Provider: EILEEN VINCENT MD Diagnosis: Generalized anxi ety disorder One tablet daily Last Documented On 12/09/2022 5:29PM By Radha Vincent MD ; [facility] Synthroid 88 MCG OR TABS 02/16/2015 - 01/16/2017 Provi itz: Diagnosis: Hypothyroidism, unspecified 1 tablet daily Last Documented On 12/09/2022 5:29PM By WILMER REDDY LPN ; [facility] busPIRone HCl 10 MG OR TABS 01/28/2015 - 05/24/2015 Provider: EILEEN VINCENT MD Diagnosis: GENERALIZED ANXI ETY DIS One tablet three times a day Last Documented On 12/09/2022 5:29PM By Radha Vincent MD ; [facility] Namenda XR 28 MG OR CP24 01/28/2015 - 05/24/2015 Provider: EILEEN CONNORS MD Diagnosis: PRESENILE HANNY IA 1 Capsule every morning Last Documented On 12/09/2022 5:29PM By Radha Vincent MD ; [facility] LaMICtal 150 MG OR TABS 01/28/2015 - 05/24/2015 Provider: EILEEN CONNORS MD Diagnosis: BIPOL I CUR DEPR ES NOS One tablet twice a day Last Documented On 12/09/2022 5:29PM By Radha Vinecnt MD ; [facility] Wellbutrin XL 300 MG OR TB24 01/28/2015 - 05/24/2015 Provider: EILEEN VINCENT MD Diagnosis: BIPOL I CUR DEPR ES NOS 1 tablet every morning Last Documented On 12/09/2022 5:29PM By Radha Vincent MD ; [facility] traZODone HCl 50 MG OR TABS 01/28/2015 - 05/24/2015 Provider: EILEEN CONNORS MD Diagnosis: PERSISTENT INSOM MURIEL One tablet at bed time Last Documented On 12/09/2022 5:29PM By Radha Vincent MD ; [facility] Escitalopram Oxalate 20 MG OR TABS 01/28/2015 - 05/24/2015 Provider: EILEEN VINCENT MD Diagnosis: GENERALIZED ANXI ETY DIS One tablet daily Last Documented On 12/09/2022 5:29PM By Radha Vincent MD ; [facility] Aricept 23 MG OR TABS 01/28/2015 - 05/24/2015 Provider : EILEEN VINCENT MD Diagnosis: PRESENILE HANNY IA One tablet daily Last Documented On 12/09/2022 5:29PM By Radha Vincent MD ; [facility] traZODone HCl 50 MG OR TABS 12/09/2014 - 01/28/2015 Provider: EILEEN CONNORS MD Diagnosis: PERSISTENT INSOM MURILE One tablet at bed time Last Documented On 12/09/2022 5:29PM By Radha Vincent MD ; [facility] traZODone HCl 50 MG OR TABS 11/06/2014 - 12/09/2014 Provider: EILEEN CONNORS MD Diagnosis: PERSISTENT INSOM MURIEL One tablet at bed time Last Documented On 12/09/2022 5:29PM By Radha Vincent MD ; [facility] busPIRone HCl 10 MG OR TABS 10/15/2014 - 01/28/2015 Provider: EILEEN VINCENT MD Diagnosis: GENERALIZED ANXI ETY DIS as needed for anxiety Last Documented On 12/09/2022 5:29PM By Radha Vincent MD ; [facility] Namenda XR 28 MG OR CP24 10/15/2014 - 01/28/2015 Provider: EILEEN CONNORS MD Diagnosis: PRESENILE HANNY IA Last Documented On 12/09/2022 5:29PM By Radha Vincent MD ; [facility] LaMICtal 150 MG OR TABS 10/15/2014 - 01/28/2015 Provider: EILEEN CONNORS MD Diagnosis: BIPOL I CUR DEPR ES NOS Last Documented On 12/09/2022 5:29PM By Radha Vincent MD ; [facility] traZODone HCl 50 MG OR TABS 10/15/2014 - 11/06/2014 Provider: EILEEN CONNORS MD Diagnosis: PERSISTENT INSOM MURIEL Last Documented On 12/09/2022 5:29PM By Radha Vincent MD ; [facility] Aricept 23 MG OR TABS 10/15/2014 - 01/28/2015 Provider : EILEEN VINCENT MD Diagnosis: PRESENILE HANNY IA Last Documented On 12/09/2022 5:29PM By Radha Vincent MD ; [facility] Escitalopram Oxalate 20 MG OR TABS 10/15/2014 - 01/28/2015 Provider: EILEEN VINCENT MD Diagnosis: GENERALIZED ANXI ETY DIS Last Documented On 12/09/2022 5:29PM By Radha Vincent MD ; [facility] Wellbutrin XL 300 MG OR TB24 10/15/2014 - 01/28/2015 Provider: EILEEN VINCENT MD Diagnosis: BIPOL I CUR DEPR ES NOS Last Documented On 12/09/2022 5:29PM By Radha Vincent MD ; [facility] Fetzima Titration 20 & 40 MG OR C4PK 07/16/2014 - 10/15/2014 Provider: EILEEN VINCENT MD Diagnosis: GENERALIZED ANXI ETY DIS 20 mg in am for 2 days then 40 mg in am thereafter -- 50 samples given 2 months samples Last Documented On 12/09/2022 5:29PM By Radha Vincent MD ; [facility] Fetzima 40 MG OR CP24 07/16/2014 - 10/15/2014 Provider: EILEEN CONNORS MD Diagnosis: GENERALIZED ANXI ETY DIS Last Documented On 12/09/2022 5:29PM By Radha Vincent MD ; [facility] Wellbutrin XL 150 MG OR TB24 07/16/2014 - 05/24/2015 Provider: EILEEN VINCENT MD Diagnosis: BIPOL I CUR DEPR ES NOS Last Documented On 12/09/2022 5:29PM By Radha Vincent MD ; [facility] traZODone HCl 50 MG OR TABS 07/16/2014 - 10/15/2014 Provider: EILEEN CONNORS MD Diagnosis: PERSISTENT INSOM MURIEL Last Documented On 12/09/2022 5:29PM By Radha Vincent MD ; [facility] LaMICtal 150 MG OR TABS 07/16/2014 - 10/15/2014 Provider: EILEEN CONNORS MD Diagnosis: BIPOL I CUR DEPR ES NOS Last Documented On 12/09/2022 5:29PM By Radha Vincent MD ; [facility] Namenda XR 28 MG OR CP24 07/16/2014 - 10/15/2014 Provider: EILEEN CONNORS MD Diagnosis: PRESENILE HANNY IA Last Documented On 12/09/2022 5:29PM By Radha Vincent MD ; [facility] busPIRone HCl 10 MG OR TABS 07/16/2014 - 10/15/2014 Provider: EILEEN VINCENT MD Diagnosis: GENERALIZED ANXI ETY DIS as needed for anxiety Last Documented On 12/09/2022 5:29PM By Radha Vincent MD ; [facility] Aricept 23 MG OR TABS 07/16/2014 - 10/15/2014 Provider : EILEEN VINCENT MD Diagnosis: PRESENILE HANNY IA Last Documented On 12/09/2022 5:29PM By Radha Vincent MD ; [facility] Escitalopram Oxalate 20 MG OR TABS 07/16/2014 - 10/15/2014 Provider: EILEEN VINCENT MD Diagnosis: GENERALIZED ANXI ETY DIS Last Documented On 12/09/2022 5:29PM By Radha Vincent MD ; [facility] Fetzima Titration 20 & 40 MG OR C4PK 06/01/2014 - 07/16/2014 Provider: EILEEN VINCENT MD Diagnosis: GENERALIZED ANXI ETY DIS 20 mg in am for 2 days then 40 mg in am thereafter -- 50 samples given Last Documented On 12/09/2022 5:29PM By Radha Vincent MD ; [facility] busPIRone HCl 10 MG OR TABS 05/20/2014 - 04/18/2023 Pr ovider: URIEL LEON MD Diagnosis: TAKE 1 TABLET 3 TIMES DAILY NEEDED FOR ANXIET Y Last Documented On 04/18/2023 10:30AM By WISAM CASH ; [facility] busPIRone HCl 10 MG OR TABS 04/30/2014 - 07/16/2014 Provider: EILEEN VINCENT MD Diagnosis: GENERALIZED ANXI ETY DIS as needed for anxiety --was told to take extra Buspar when she has bad thought since she is only taking it 2 x a day Last Documented On 12/09/2022 5:29PM By Radha Vincent MD ; [facility] traZODone HCl 50 MG OR TABS 04/07/2014 - 07/16/2014 Provider: EILEEN CONNORS MD Diagnosis: PERSISTENT INSOM MURIEL Last Documented On 12/09/2022 5:29PM By Radha Vincent MD ; [facility] Namenda XR 28 MG OR CP24 04/07/2014 - 07/16/2014 Provider: EILEEN CONNORS MD Diagnosis: PRESENILE HANNY IA Last Documented On 12/09/2022 5:29PM By Radha Vincetn MD ; [facility] Escitalopram Oxalate 20 MG OR TABS 04/07/2014 - 07/16/2014 Provider: EILEEN VINCENT MD Diagnosis: GENERALIZED ANXI ETY DIS Last Documented On 12/09/2022 5:29PM By Radha Vincent MD ; [facility] busPIRone HCl 10 MG OR TABS 04/07/2014 - 04/30/2014 Provider: EILEEN VINCENT MD Diagnosis: GENERALIZED ANXI ETY DIS as needed for anxiety Last Documented On 12/09/2022 5:29PM By Radha Vincent MD ; [facility] LaMICtal 150 MG OR TABS 04/07/2014 - 07/16/2014 Provider: EILEEN CONNORS MD Diagnosis: BIPOL I CUR DEPR ES NOS Last Documented On 12/09/2022 5:29PM By Radha Vincent MD ; [facility] Wellbutrin XL 150 MG OR TB24 04/07/2014 - 07/16/2014 Provider: EILEEN VINCENT MD Diagnosis: BIPOL I CUR DEPR ES NOS Last Documented On 12/09/2022 5:29PM By Radha Vincent MD ; [facility] Aricept 23 MG OR TABS 04/07/2014 - 07/16/2014 Provider : EILEEN VINCENT MD Diagnosis: PRESENILE HANNY IA Last Documented On 12/09/2022 5:29PM By Radha Vincent MD ; [facility] traZODone HCl 50 MG OR TABS 02/09/2014 - 04/07/2014 Provider: EILEEN CONNORS MD Diagnosis: PERSISTENT INSOM MURIEL Last Documented On 12/09/2022 5:29PM By Radha Vincent MD ; [facility] Lipitor 20 MG OR TABS 02/09/2014 - 11/10/2015 Provider : Diagnosis: 1 every p.m. Last Documented On 12/09/2022 5:29PM By TERRI CASH ; [facility] Aspirin 81 MG OR TABS 02/09/2014 - 11/10/2015 Provider : Diagnosis: 1 every morning Last Documented On 12/09/2022 5:29PM By TERRI CASH ; [facility] Lasix 20 MG OR TABS 02/09/2014 - 11/10/2015 Provider: Diagnosis: 1 every morning Last Documented On 12/09/2022 5:29PM By TERRI CASH ; [facility] Wellbutrin XL 150 MG OR TB24 02/09/2014 - 04/07/2014 Provider: EILEEN VINCENT MD Diagnosis: BIPOL I CUR DEPR ES NOS 1 tablet every morning Last Documented On 12/09/2022 5:29PM By Radha Vincent MD ; [facility] Aricept 23 MG OR TABS 02/09/2014 - 04/07/2014 Provider : EILEEN VINCENT MD Diagnosis: PRESENILE HANNY IA Last Documented On 12/09/2022 5:29PM By Radha Vincent MD ; [facility] Escitalopram Oxalate 20 MG OR TABS 02/09/2014 - 04/07/2014 Provider: EILEEN VINCENT MD Diagnosis: GENERALIZED ANXI ETY DIS Last Documented On 12/09/2022 5:29PM By Radha Vincent MD ; [facility] busPIRone HCl 10 MG OR TABS 02/09/2014 - 04/07/2014 Provider: EILEEN VINCENT MD Diagnosis: GENERALIZED ANXI ETY DIS as needed for anxiety Last Documented On 12/09/2022 5:29PM By Radha Vincent MD ; [facility] Namenda XR 28 MG OR CP24 02/09/2014 - 04/07/2014 Provider: EILEEN CONNORS MD Diagnosis: PRESENILE HANNY IA Last Documented On 12/09/2022 5:29PM By Radha Vincent MD ; [facility] Terbinafine HCl 250 MG OR TABS 12/18/2013 - 04/07/2014 Provider: Diagnosis: one tablet daily Last Documented On 12/09/2022 5:29PM By TERRI CASH ; [facility] traZODone HCl 50 MG OR TABS 11/22/2013 - 02/09/2014 Provider: EILEEN CONNORS MD Diagnosis: PERSISTENT INSOM MURIEL Last Documented On 12/09/2022 5:29PM By Radha Vincent MD ; [facility] Wellbutrin XL 150 MG OR TB24 11/22/2013 - 02/09/2014 Provider: EILEEN VINCENT MD Diagnosis: BIPOL I CUR DEPR ES NOS 1 tablet every morning Last Documented On 12/09/2022 5:29PM By Radha Vincent MD ; [facility] Escitalopram Oxalate 20 MG OR TABS 11/22/2013 - 02/09/2014 Provider: EILEEN VINCENT MD Diagnosis: GENERALIZED ANXI ETY DIS Last Documented On 12/09/2022 5:29PM By Radha Vincent MD ; [facility] Aricept 23 MG OR TABS 11/22/2013 - 02/09/2014 Provider : EILEEN VINCENT MD Diagnosis: PRESENILE HANNY IA Last Documented On 12/09/2022 5:29PM By Radha Vincent MD ; [facility] Namenda XR 28 MG OR CP24 11/22/2013 - 02/09/2014 Provider: EILEEN CONNORS MD Diagnosis: PRESENILE HANNY IA Last Documented On 12/09/2022 5:29PM By Radha Vincent MD ; [facility] busPIRone HCl 10 MG OR TABS 11/21/2013 - 02/09/2014 Provider: EILEEN VINCENT MD Diagnosis: GENERALIZED ANXI ETY DIS as needed for anxiety Last Documented On 12/09/2022 5:29PM By Radha Vincent MD ; [facility] LaMICtal 150 MG OR TABS 11/21/2013 - 04/07/2014 Provider: EILEEN CONNORS MD Diagnosis: BIPOL I CUR DEPR ES NOS Last Documented On 12/09/2022 5:29PM By Radha Vincent MD ; [facility] traZODone HCl 50 MG OR TABS 11/11/2013 - 11/21/2013 Pr ovider: Diagnosis: Last Documented On 12/09/2022 5:29PM By TERRI CASH ; [facility] Fanapt 2 MG OR TABS 10/23/2013 - 10/23/2013 Provider: EILEEN VINCENT MD Diagnosis: BIPOL I CUR DEPR ES NOS Last Documented On 12/09/2022 5:29PM By Radha Vincent MD ; [facility] Fanapt 2 MG OR TABS 10/23/2013 - 11/22/2013 Provider: EILEEN VINCENT MD Diagnosis: BIPOL I CUR DEPR ES NOS pt given samples of 1 mg bid then 2 mg bid --4 tablets samples Last Documented On 12/09/2022 5:29PM By Radha Vincent MD ; [facility] Namenda XR 28 MG OR CP24 10/23/2013 - 11/21/2013 Provider: EILEEN CONNORS MD Diagnosis: PRESENILE HANNY IA Last Documented On 12/09/2022 5:29PM By Radha Vincent MD ; [facility] busPIRone HCl 10 MG OR TABS 10/23/2013 - 11/21/2013 Provider: EILEEN VINCENT MD Diagnosis: GENERALIZED ANXI ETY DIS as needed for anxiety Last Documented On 12/09/2022 5:29PM By Radha Vincent MD ; [facility] Escitalopram Oxalate 20 MG OR TABS 10/23/2013 - 11/21/2013 Provider: EILEEN VINCENT MD Diagnosis: GENERALIZED ANXI ETY DIS Last Documented On 12/09/2022 5:29PM By Radha Vincent MD ; [facility] Aricept 23 MG OR TABS 10/23/2013 - 11/21/2013 Provider : EILEEN VINCENT MD Diagnosis: PRESENILE HANNY IA Last Documented On 12/09/2022 5:29PM By Radha Vincent MD ; [facility] Wellbutrin XL 150 MG OR TB24 10/23/2013 - 11/21/2013 Provider: EILEEN VINCENT MD Diagnosis: BIPOL I CUR DEPR ES NOS 1 tablet every morning Last Documented On 12/09/2022 5:29PM By Radha Vincent MD ; [facility] lamoTRIgine 200 MG OR TABS 10/23/2013 - 11/22/2013 Provider: EILEEN VINCENT MD Diagnosis: BIPOL I CUR DEPR ES NOS Last Documented On 12/09/2022 5:29PM By Radha Vincent MD ; [facility] Aricept 23 MG OR TABS 07/28/2013 - 10/23/2013 Provider : EILEEN VINCENT MD Diagnosis: PRESENILE HANNY IA Last Documented On 12/09/2022 5:29PM By Radha Vincent MD ; [facility] Escitalopram Oxalate 20 MG OR TABS 07/28/2013 - 10/23/2013 Provider: EILEEN VINCENT MD Diagnosis: GENERALIZED ANXI ETY DIS Last Documented On 12/09/2022 5:29PM By Radha Vincent MD ; [facility] Wellbutrin XL 150 MG OR TB24 07/28/2013 - 10/23/2013 Provider: EILEEN VINCENT MD Diagnosis: BIPOL I CUR DEPR ES NOS 1 tablet every morning Last Documented On 12/09/2022 5:29PM By Radha Vincent MD ; [facility] lamoTRIgine 200 MG OR TABS 07/28/2013 - 10/23/2013 Provider: EILEEN VINCENT MD Diagnosis: BIPOL I CUR DEPR ES NOS Last Documented On 12/09/2022 5:29PM By Radha Vincent MD ; [facility] busPIRone HCl 10 MG OR TABS 07/28/2013 - 10/23/2013 Provider: EILEEN VINCENT MD Diagnosis: GENERALIZED ANXI ETY DIS as needed for anxiety Last Documented On 12/09/2022 5:29PM By Radha Vincent MD ; [facility] Namenda XR 28 MG OR CP24 07/28/2013 - 10/23/2013 Provider: EILEEN CONNORS MD Diagnosis: PRESENILE HANNY IA Last Documented On 12/09/2022 5:29PM By Radha Vincent MD ; [facility] Neupro 1 MG/24HR TD PT24 07/28/2013 - 10/23/2013 Provider: EILEEN CONNORS MD Diagnosis: Restless Legs Sy ndrome apply 1 patch to skin of upp er arm, flank etc...once a day--totate sites Last Documented On 12/09/2022 5:29PM By Radha Vincent MD ; [facility] Diclofenac Sodium 75 MG OR TBEC 07/28/2013 - 4 Provider: Diagnosis: Last Documented On 12/09/2022 5:29PM By TERRI CASH ; [facility] Wellbutrin XL 150 MG OR TB24 05/07/2013 - 07/28/2013 Provider: EILEEN VINCENT MD Diagnosis: BIPOL I CUR DEPR ES NOS 1 tablet every morning Last Documented On 12/09/2022 5:29PM By Radha Vincent MD ; [facility] lamoTRIgine 200 MG OR TABS 05/07/2013 - 07/28/2013 Provider: EILEEN VINCENT MD Diagnosis: BIPOL I CUR DEPR ES NOS Last Documented On 12/09/2022 5:29PM By Radha Vincent MD ; [facility] Dicyclomine HCl 10 MG OR CAPS 05/07/2013 - 11/10/2015 Provider: Diagnosis: Last Documented On 12/09/2022 5:29PM By Conversion User ; [facility] Aricept 23 MG OR TABS 05/07/2013 - 05/07/2013 Provider : Diagnosis: It is now 28mg qd Last Documented On 12/09/2022 5:29PM By Conversion User ; [facility] Aricept 23 MG OR TABS 05/07/2013 - 07/28/2013 Provider : EILEEN VINCENT MD Diagnosis: PRESENILE HANNY IA It is now 28mg qd Last Documented On 12/09/2022 5:29PM By aRdha Vincent MD ; [facility] Namenda 10 MG OR TABS 05/07/2013 - 11/21/2013 Provider : EILEEN VINCENT MD Diagnosis: PRESENILE HANNY IA Namenda XR 28 mg a day for 9 0 days and 3 refill--pt started 05/07/13 Last Documented On 12/09/2022 5:29PM By Radha Vincent MD ; [facility] Oleptro 150 MG OR TB24 05/07/2013 - 10/23/2013 Provider: EILEEN CONNORS MD Diagnosis: GENERALIZED ANXI ETY DIS Last Documented On 12/09/2022 5:29PM By Radha Vincent MD ; [facility] Escitalopram Oxalate 20 MG OR TABS 05/07/2013 - 07/28/2013 Provider: EILEEN VINCENT MD Diagnosis: GENERALIZED ANXI ETY DIS Last Documented On 12/09/2022 5:29PM By Radha Vincent MD ; [facility] Aricept 23 MG OR TABS 05/07/2013 - 05/07/2013 Provider : Diagnosis: Last Documented On 12/09/2022 5:29PM By Conversion User ; [facility] Escitalopram Oxalate 20 MG OR TABS 01/28/2013 - 05/07/2013 Provider: EILEEN VINCENT MD Diagnosis: GENERALIZED ANXI ETY DIS Last Documented On 12/09/2022 5:29PM By Radha Vincent MD ; [facility] Synthroid 88 MCG OR TABS 01/28/2013 - 11/10/2015 Provi itz: Diagnosis: Last Documented On 12/09/2022 5:29PM By TERRI CASH ; [facility] HM Vitamin D 25 MCG (1000 UT) OR TABS 01/28/2013 - Provider: Diagnosis: 2 a day Last Documented On 12/09/2022 5:29PM By Radha Vincent MD ; [facility] Wellbutrin XL 150 MG OR TB24 01/28/2013 - 05/07/2013 Provider: EILEEN VINCENT MD Diagnosis: GENERALIZED ANXI ETY DIS 1 tablet every morning Last Documented On 12/09/2022 5:29PM By Radha Vincent MD ; [facility] Namenda 10 MG OR TABS 01/28/2013 - 05/07/2013 Provider : EILEEN VINCENT MD Diagnosis: PRESENILE HANNY IA Finish current supply of 10 mg bid and then start Namenda XR 28 mg a day for 90 days and 3 refill Last Documented On 12/09/2022 5:29PM By Radha Vincent MD ; [facility] Aricept 23 MG OR TABS 01/28/2013 - 05/07/2013 Provider : EILEEN VINCENT MD Diagnosis: PRESENILE HANNY IA Last Documented On 12/09/2022 5:29PM By Radha Vincent MD ; [facility] Latuda 20 MG OR TABS 01/28/2013 - 05/07/2013 Provider: EILEEN VINCENT MD Diagnosis: BIPOL I CUR DEPR ES NOS Last Documented On 12/09/2022 5:29PM By Radha Vincent MD ; [facility] Oleptro 150 MG OR TB24 01/28/2013 - 05/07/2013 Provider: EILEEN CONNORS MD Diagnosis: GENERALIZED ANXI ETY DIS Last Documented On 12/09/2022 5:29PM By Radha Vincent MD ; [facility] Atorvastatin Calcium 20 MG OR TABS 01/28/2013 - 2012 Provider: Diagnosis: Last Documented On 12/09/2022 5:29PM By TERRI CASH ; [facility] lamoTRIgine 200 MG OR TABS 01/28/2013 - 05/07/2013 Provider: EILEEN VINCENT MD Diagnosis: BIPOL I CUR DEPR ES NOS Last Documented On 12/09/2022 5:29PM By Radha Vincent MD ; [facility] lamoTRIgine 200 MG OR TABS 11/08/2012 - 01/28/2013 Provider: EILEEN VINCENT MD Diagnosis: BIPOL I CUR DEPR ES NOS Last Documented On 12/09/2022 5:29PM By Radha Vincent MD ; [facility] Namenda 10 MG OR TABS 11/08/2012 - 01/28/2013 Provider : EILEEN VINCENT MD Diagnosis: PRESENILE HANNY IA Last Documented On 12/09/2022 5:29PM By Radha Vincent MD ; [facility] Aricept 23 MG OR TABS 11/08/2012 - 01/28/2013 Provider : EILEEN VINCENT MD Diagnosis: PRESENILE HANNY IA Last Documented On 12/09/2022 5:29PM By Radha Vincent MD ; [facility] Oleptro 150 MG OR TB24 11/08/2012 - 01/28/2013 Provider: EILEEN CONNORS MD Diagnosis: GENERALIZED ANXI ETY DIS Last Documented On 12/09/2022 5:29PM By Radha Vincent MD ; [facility] Escitalopram Oxalate 20 MG OR TABS 11/08/2012 - 01/28/2013 Provider: EILEEN VINCENT MD Diagnosis: GENERALIZED ANXI ETY DIS Last Documented On 12/09/2022 5:29PM By Radha Vincent MD ; [facility] Latuda 20 MG OR TABS 11/08/2012 - 01/28/2013 Provider: EILEEN VINCENT MD Diagnosis: BIPOL I CUR DEPR ES NOS Last Documented On 12/09/2022 5:29PM By Radha Vincent MD ; [facility] Oleptro 150 MG OR TB24 09/04/2012 - 11/08/2012 Provider: EILEEN CONNORS MD Diagnosis: GENERALIZED ANXI ETY DIS Last Documented On 12/09/2022 5:29PM By Radha Vincent MD ; [facility] Wellbutrin XL 150 MG OR TB24 09/04/2012 - 01/28/2013 Provider: EILEEN VINCENT MD Diagnosis: BIPOL I CURR DEP W/O PSY 1 tablet every morning Last Documented On 12/09/2022 5:29PM By Radha Vincent MD ; [facility] lamoTRIgine 200 MG OR TABS 09/04/2012 - 11/08/2012 Provider: EILEEN VINCENT MD Diagnosis: BIPOL I CURR DEP W/O PSY Last Documented On 12/09/2022 5:29PM By Radha Vincent MD ; [facility] Namenda 10 MG OR TABS 09/04/2012 - 11/08/2012 Provider : EILEEN VINCENT MD Diagnosis: PRESENILE HANNY IA Last Documented On 12/09/2022 5:29PM By Radha Vincent MD ; [facility] Aricept 23 MG OR TABS 09/04/2012 - 11/08/2012 Provider : EILEEN VINCENT MD Diagnosis: PRESENILE HANNY IA Last Documented On 12/09/2022 5:29PM By Radha Vincent MD ; [facility] Latuda 20 MG OR TABS 09/04/2012 - 11/08/2012 Provider: EILEEN VINCENT MD Diagnosis: BIPOL I CURR DEP W/O PSY Last Documented On 12/09/2022 5:29PM By Radha Vincent MD ; [facility] Escitalopram Oxalate 20 MG OR TABS 09/04/2012 - 11/08/2012 Provider: EILEEN VINCENT MD Diagnosis: GENERALIZED ANXI ETY DIS Last Documented On 12/09/2022 5:29PM By Radha Vincent MD ; [facility] lamoTRIgine 200 MG OR TABS 08/07/2012 - 09/04/2012 Provider: EILEEN VINCENT MD Diagnosis: BIPOL I CURR DEP W/O PSY Last Documented On 12/09/2022 5:29PM By Radha Vincent MD ; [facility] Wellbutrin XL 150 MG OR TB24 08/07/2012 - 09/04/2012 Provider: EILEEN VINCENT MD Diagnosis: BIPOL I CURR DEP W/O PSY 1 tablet every morning Last Documented On 12/09/2022 5:29PM By Radha Vincent MD ; [facility] Latuda 20 MG OR TABS 08/07/2012 - 09/04/2012 Provider: EILEEN VINCENT MD Diagnosis: BIPOL I CURR DEP W/O PSY Last Documented On 12/09/2022 5:29PM By Radha Vincent MD ; [facility] Escitalopram Oxalate 20 MG OR TABS 08/07/2012 - 09/04/2012 Provider: EILEEN VINCENT MD Diagnosis: GENERALIZED ANXI ETY DIS Last Documented On 12/09/2022 5:29PM By Radha Vincent MD ; [facility] Oleptro 150 MG OR TB24 08/07/2012 - 09/04/2012 Provider: EILEEN CONNORS MD Diagnosis: GENERALIZED ANXI ETY DIS Last Documented On 12/09/2022 5:29PM By Radha Vincent MD ; [facility] Namenda 10 MG OR TABS 08/07/2012 - 09/04/2012 Provider : EILEEN VINCENT MD Diagnosis: PRESENILE HANNY IA Last Documented On 12/09/2022 5:29PM By Radha Vincent MD ; [facility] Aricept 23 MG OR TABS 08/07/2012 - 09/04/2012 Provider : EILEEN VINCENT MD Diagnosis: PRESENILE HANNY IA Last Documented On 12/09/2022 5:29PM By Radha Vincent MD ; [facility] Aricept 23 MG OR TABS 08/02/2012 - 08/07/2012 Provider : Diagnosis: Last Documented On 12/09/2022 5:29PM By KIRA OSUNA ; [facility] Latuda 20 MG OR TABS 08/02/2012 - 08/07/2012 Provider: Diagnosis: Last Documented On 12/09/2022 5:29PM By KIRA OSUNA ; [facility] Calcium 600/Vitamin D 600-400 MG-UNIT OR TABS 08/02/20 - 11/10/2015 Provider: Diagnosis: 2 tablets daily Last Documented On 12/09/2022 5:29PM By KIRA OSUNA ; [facility] Namenda 10 MG OR TABS 08/02/2012 - 08/07/2012 Provider : Diagnosis: Last Documented On 12/09/2022 5:29PM By KIRA OSUNA ; [facility] Aspirin 81 MG OR CHEW 08/02/2012 - 01/28/2013 Provider : Diagnosis: Last Documented On 12/09/2022 5:29PM By KIRA OSUNA ; [facility] Oleptro 150 MG OR TB24 08/02/2012 - 08/07/2012 Provide r: Diagnosis: Last Documented On 12/09/2022 5:29PM By KIRA OSUNA ; [facility] lamoTRIgine 200 MG OR TABS 08/02/2012 - 08/07/2012 Pro vider: Diagnosis: Last Documented On 12/09/2022 5:29PM By KIRA OSUNA ; [facility] buPROPion HCl ER (SR) 150 MG OR TB12 08/02/2012 - 07/14 Provider: Diagnosis: every morning Last Documented On 12/09/2022 5:29PM By KIRA OSUNA ; [facility] Escitalopram Oxalate 20 MG OR TABS 08/02/2012 - 2011 Provider: Diagnosis: Last Documented On 12/09/2022 5:29PM By KIRA OSUNA ; [facility] amLODIPine Besy-Benazepril HCl 5-10 MG OR CAPS 1 10/03/2011 - 11/10/2015 Provider: Diagnosis: Last Documented On 12/09/2022 5:29PM By KIRA OSUNA ; [facility] Omeprazole 20 MG OR TBEC 08/02/2012 - 11/10/2015 Provi itz: Diagnosis: Last Documented On 12/09/2022 5:29PM By KIRA OSUNA ; [facility] Levothyroxine Sodium 88 MCG OR TABS 08/02/2012 - 05/07 Provider: Diagnosis: Last Documented On 12/09/2022 5:29PM By KIRA OSUNA ; [facility] Furosemide 20 MG OR TABS 08/02/2012 - 02/09/2014 Provi itz: Diagnosis: take 1 tab once daily prn for edema Last Documented On 12/09/2022 5:29PM By KIRA OSUNA ; [facility] Diclofenac Sodium 75 MG OR TBEC 08/02/2012 - 3 Provider: Diagnosis: take one tablet twice a day Last Documented On 12/09/2022 5:29PM By KIRA OSUNA ; [facility] Metoprolol Tartrate 25 MG OR TABS 08/02/2012 - 016 Provider: Diagnosis: take one-half tablet 2 times a day Last Documented On 12/09/2022 5:29PM By KIRA OSUNA ; [facility] Atorvastatin Calcium 10 MG OR TABS 08/02/2012 - 2012 Provider: Diagnosis: Last Documented On 12/09/2022 5:29PM By KIRA OSUNA ; [facility] Medications Administered Includes: Administered Medications in patient's chart No Administered Medications Recorded Vital Signs Includes: Vital Signs from 09/04/2023 through 09/04/2024 Vital Name 12/19/2023 11:41A 09/14/2023 11: 36A Blood Pressure Sitting L 130/80 149/84 BP Cuff Size Regular Regular Pulse Rate-Sitting (bpm) 93 82 Pulse Rhythm Regular Regular Height (in) 63 63 Weight (lb) 160 163 Body Mass Index 28.3 28.9 Body Surface Area 1.8 1.8 Note: self reported vitals self report ed vitals Last Documented: On 12/19/2023 11:42A M ; [facility] On 09/14/2023 11:36AM ; [facility] Results Includes: Results from 09/04/2023 through 09/04/2024 No Results Recorded For Specified Dates History of Present Illness History of Present Illness not supported for this document type No History of Present Illness Recorded Social History Description Last Updated Tobacco non-user - Never smoker 12/19/19 Last Documented On 4 4:37AM ; [facility] Smoking Status Unknown Procedures and Surgical History Includes: Procedures from 09/04/2023 through 09/04/2024 Procedures Code Diagnosis Performing Provider Service Location Service Date PSYCHOTHERAPY 30 MIN W/ [place] [address] Bipolar disorder, unspecified, Generalized anxiety disorder, Attention-deficit hyperactivity disorder, other type, Restless legs syndrome EILEEN VINCENT MD [facility]PSY 12/19/2023 Last Documented On 4 5:27PM ; [facility] PSYCHOTHERAPY 30 MIN W/ [place] [address] Bipolar disorder, unspecified, Generalized anxiety disorder, Attention-deficit hyperactivity disorder, other type, Psychophysiologic insomnia EILEEN VINCENT MD [facility]-Y 09/14/2023 Last Documented On 4 5:03PM ; [facility] Medical History Includes: Medical History in patient's chart No Medical History Recorded Family History Includes: Family History in patient's chart No Family History Recorded Review of Systems Review of Systems not supported for this document type No Review of Systems Recorded Mental Status Description Depressive disorder Functional Status No Functional Status Recorded Physical Exam Physical Exam not supported for this document type No Physical Exam Recorded Allergies Includes: Active, inactive, and resolved Allergies Substance Type Reaction Onset Date Resolved Date Statu s Sulfa Antibiotics Allergy 08/02/2012 R esolved Last Documented On 9 1:33PM ; [facility] Sulfa Antibiotics Allergy 08/02/2012 A ctive Last Documented On 4 11:08AM ; [facility] Note: Imported from external source. Neupro Allergy rash 10/23/2013 Active Last Documented On 4 11:08AM ; [facility] Note: Imported from external source. Encounters Includes: Encounters from 09/04/2023 through 09/04/2024 Encounter Provider Location Date Check-In Time Check-Out Time Diagnosis [facility] ESTABLISHED EILEEN VINCENT MD [facility] 024 11:02AM 07/03/2012 11:59PM Generalized Anxiety Disorder,Nonorga deonte Sleep Apnea,Restless Legs Syndrome,Dementi a,Psychophysiolo gical Insomnia,Bipolar I Disorder,Adult Attention Deficit Hyperactivity Disorder,Mild Cognitive Impairment,Depre ssive Disorder, Nos * PHONE CALL EILEEN VINCENT MD [facility] 024 06/29/2023 3:59PM 07/03/2012 11:59PM Dementia * PHONE CALL EILEEN VINCENT MD [facility] 024 06/29/2023 4:10PM 07/03/2012 11:59PM * PHONE CALL EILEEN VINCENT MD [facility] 024 06/29/2023 11:43AM 07/03/2012 11:59PM Adult Attention Deficit Hyperactivity Disorder * PHONE CALL EILEEN VINCENT MD [facility] 024 06/29/2023 2:36PM 07/03/2012 11:59PM * PHONE CALL EILEEN VINCENT MD [facility] 024 06/29/2023 10:25AM 07/03/2012 11:59PM TELEHEALTH ADULT PSYCH ESTABLISHED EILEEN VINCENT MD [facility] 024 06/29/2023 11:08AM 07/03/2012 11:59PM Generalized Anxiety Disorder,Nonorga deonte Sleep Apnea,Restless Legs Syndrome,Dementi a,Psychophysiolo gical Insomnia,Bipolar I Disorder,Adult Attention Deficit Hyperactivity Disorder,Mild Cognitive Impairment,Depre ssive Disorder, Nos Insurance Includes: Active Insurance Policies Plan Name Member ID Group # Subscriber Relationship Effect kofi Dates 1 - [facility] [id number] LANA DARBY Self 2 - [facility] [id number] INGRID DARBY 0 - Unknown Clinical Notes Includes: Signed Clinical Notes starting from 09/01/2022 * Progress note Date Encounter Last Documented by 12/19/2023 [facility]ULT [facility]YCH ESTABLISH ED Last documented on 12/24/2023; 4:37 AM, EILEEN VINCENT MD; [facility] Top of Document Medication psychotherapy 30 minutes [...] anxiety and depression. History of Present Illness LANA DARBY is a 73 year old female. [...] twice. I recommended that she sees her outside machinist because of her IBS and the diarrhea [...] Primary Care Provider: Dr. Emmett Mcgarry -- Customs Compliance Specialist Dr. Naveed Lala, DPM -- Technicians And Trades Workers Dr. Kirti Springer -- Electronics Mechanic Dr. Keanu Mitchell, DMD -- Dentist Dr. Joshua Hanson, OD -- Medical Billing Coordinator Diagnoses: Area of concern on right breast 12/2023 Hearing loss - wears bilateral hearing aids. Systemic hypertension. Bronchitis - given Zpak 250 mg and Albuterol HFA 90 mcg inhaler on 02/23/22 and given Methylprednisolone Dosepak 4 mg on 02/18/22 Bronchitis - given Albuterol HFA 90 mcg and Tessalon Perles 100 mg 09/03/22 Obstructive sleep apnea -- sleep study done 05/22/13 at [facility] under Dr. Cutler. She was wearing a dental device purchased from [facility] dentistry. Patient does not wear her dental [...] injuries sustained from fall at her son's [employer] business 08/28/22 Sprain of the left foot Hammer [...] going down while she was at the [employer]; she had a nosebleed and a sore right knee; she did not go to the Dr. or ER -- #11 -- patient missed step at the [employer] and fractured her nose; she wore a [...] PREVIOUS PSYCHIATRIC HOSPITALIZATION: She was hospitalized at [facility] in 2008 due to depression; she said that she was suicidal then. She was also hospitalized at [place] at least twice from [id number]. She said again she could not remember the dates. PREVIOUS PSYCHIATRIC TREATMENT: She was under the care of Dr. Arciniega in [place]. 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 Marital: Marital history --. She was born in [place], [place]. She was raised in [place], [place] and [place], [place]. She was close to her parents while growing up and they were supportive of her. 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 She denied [...] Clinical summary provided to patient. * Call [phone] and /or go to the nearest emergency [...] see above for treatment and PHQ score. * Progress note Date Encounter Last Documented by 12/12/2023 * PHONE CALL Last documented on 12/12/2023; 5:57 PM, EILEEN VINCENT MD; [facility] Active Problems & Conditions - [...] Namzaric. pt phone # for return call: [phone] date/initials: 12/12/23 bk Current Medication - Alendronate [...] PREVIOUS PSYCHIATRIC HOSPITALIZATION: She was hospitalized at [facility] in 2008 due to depression; she said that she was suicidal then. She was also hospitalized at [place] at least twice from [id number]. She said again she could not remember the dates. PREVIOUS PSYCHIATRIC TREATMENT: She was under the care of Dr. Arciniega in [place]. PREVIOUS PSYCHIATRIC MEDICATIONS: Lexapro 20mg once a [...] 1 tab a day. Please relay. EndCited * Progress note Date Encounter Last Documented by 11/08/2023 * PHONE CALL Last documented on 11/08/2023; 5:55 PM, EILEEN VINCENT MD; [facility] Active Problems & Conditions - [...] Namzaric? pt phone # for return call: [phone] Date/Initials: 11/08/23 db. Current Medication - Alendronate [...] told Dr. Carrizales about her situation. EndCited * Progress note Date Encounter Last Documented by 10/31/2023 * PHONE CALL Last documented on 10/31/2023; 11:49 AM, EILEEN VINCENT MD; [facility] Active Problems & Conditions - [...] refill of Mydayis to be sent to [facility]. pt phone # for return call: [phone] date/initials: 10/31/2023 bk Current Medication - Alendronate [...] PREVIOUS PSYCHIATRIC HOSPITALIZATION: She was hospitalized at [facility] in 2008 due to depression; she said that she was suicidal then. She was also hospitalized at [place] at least twice from 5305-5404. She said again she could not remember the dates. PREVIOUS PSYCHIATRIC TREATMENT: She was under the care of Dr. Arciniega in [place]. PREVIOUS PSYCHIATRIC MEDICATIONS: Lexapro 20mg once a [...] and her Mydayis has been escribed EndCited * Progress note Date Encounter Last Documented by 10/18/2023 * PHONE CALL Last documented on 10/22/2023; 8:51 AM, EILEEN VINCENT MD; [facility] Active Problems & Conditions - [...] place. pt phone # for return call: [phone] date/initials: 10/18/23 bk Current Medication - Alendronate [...] PREVIOUS PSYCHIATRIC HOSPITALIZATION: She was hospitalized at [facility] in 2008 due to depression; she said that she was suicidal then. She was also hospitalized at [place] at least twice from [id number]. She said again she could not remember the dates. PREVIOUS PSYCHIATRIC TREATMENT: She was under the care of Dr. Arciniega in [place]. PREVIOUS PSYCHIATRIC MEDICATIONS: Lexapro 20mg once a [...] was an error on my part. EndCited * Progress note Date Encounter Last Documented by 09/17/2023 * PHONE CALL Last documented on 09/17/2023; 3:36 PM, EILEEN VINCENT MD; [facility] Active Problems & Conditions - [...] reason for call: Patient calling. She said at the last visit Dr. Vincent was asking if she had any night sweats. She has been thinking about it and remembered that she is having excessive sweating during the daytime. She said it can be when she is just doing little things around the house or walking through stores. She said it seems to be getting worse the last year or so. She wants to know if this is normal. pt phone # for return call: [phone] date/initials: 09/17/23 bk Current Medication - Alendronate Sodium 70 [...] DAY , 30 days, 11 refills - Dicyclomine HCl 10 MG Oral Capsule 1 capsule daily 1 capsule bid, 30 days, 0 refills - Escitalopram Oxalate 20 MG Oral [...] PREVIOUS PSYCHIATRIC HOSPITALIZATION: She was hospitalized at [facility] in 2008 due to depression; she said that she was suicidal then. She was also hospitalized at [place] at least twice from 9520-6659. She said again she could not remember the dates. PREVIOUS PSYCHIATRIC TREATMENT: She was under the care of Dr. Arciniega in [place]. PREVIOUS PSYCHIATRIC MEDICATIONS: Lexapro 20mg once a day Namenda 10 mg twice a day Aricept 10mg once a day Wellbutrin SR 100 mg in the morning Lamictal 200 mg a day Ativan 1 mg three times a day. Fetzima-- stopped August 2014-- caused incontinence Allergies - Neupro Reaction: rash - Sulfa Antibiotics Plan StartCited - Other PHY ORDER/COMMENT I called Lana and left her a message and informed her that any excessive sweating whether it be day or night is considered not normal and this could be multiple facotrs including hormonal reasons but she is way beyond post menopausal but it can still happen so I suggest she consults with her Electronics Mechanic if it is bothersome to her or ask her PCP about this issue. EndCited * Progress note Date Encounter Last Documented by 09/14/2023 TELEHEALTH ADULT PSYCH ESTABLISH ED Last documented on 09/17/2023; 3:43 AM, EILEEN VINCENT MD; [facility] Top of Document Medication psychotherapy 30 minutes Patient gave verbal consent for Telehealth 09/14/23. Location of patient: patient's home Location of [...] anxiety and depression. History of Present Illness LANA DARBY is a 73 year old female. - Allergy list reviewed - Past medical history reviewed - Medication list reviewed Pt has not been feeling depressed. Pt has not been as anxious. Pt denied having any mood swings. Pt has not been as irritable. Pt has been motivated in general in doing daily tasks. Sleep has been good but occ gets restless. Pt has not been napping/sleeping too much during the daytime. Pt occ gets tired. Appetite is good but at times may overeat. Pt has not been feeling as bad about self. Pt is able to focus and concentrate for the most part with Mydayis. She has poor short term memory recall. She admits to getting forgetful that she will forget her purse or wallet and/or cell phone when going to the store then she tends to go back and luckily she is able to retrieve her items. I expressed concern about her memory and her driving by herself. I recommended that she not go to the store by herself and just let her accompany her when shopping or going to the store. I also cautioned her about driving since she has gotten lost in the past. Pt denied having any psychomotor restlessness. Pt denied suicidal thoughts. Pt denied having any delusions/hallucinations. Overall her psych meds are still helping her mood/anxiety. MENTAL STATUS EXAM: Sensorium - alert, oriented to name, place, and time Attitude - cooperative Gait - ambulatory Sleep - at times has difficulty staying asleep -- no sleep related behaviors with Belsomra -- does not wear CPAP or dental device just O2 Interest/Energy/Motivation - good, occ tired Guilt/Worthlessness - absent Concentration/Attention Span - able to focus and concentrate better with Mydayis Memory Recall - at times forgetful, memory recall - 09/15 MMSE - Clock - 11/14 Word Fluency - 12 Appetite - good - on 06/29/23 pt weighed 167 lbs and on 09/14/23 pt weighed 163 lbs so she lost 4 lbs Suicidal [...] bedtime as needed for sleep, 30 days, 5 refills - buPROPion HCl ER (XL) 300 MG Oral Tablet Extended Release 24 Hour 1 tablet every morning, 90 days, 3 refills - busPIRone HCl 15 MG Tablet TAKE ONE TABLET BY MOUTH THREE TIMES a DAY , 30 days, 11 refills - Dicyclomine HCl 10 MG Oral Capsule 1 capsule daily 1 capsule bid, 30 days, 0 refills - Escitalopram Oxalate 20 MG Oral [...] MOUTH DAILY , 30 days, 11 refills - - No side effects reported Past Medical/Surgical History Primary Care Provider: Dr. Emmett Mcgarry -- Customs Compliance Specialist Dr. Naveed Lala, DPM -- Technicians [employer] Trades Workers Dr. Mere Mitchell -- Electronics Mechanic Dr. Keanu Mitchell, DMD -- Dentist Dr. Joshua Hanson, OD -- Medical Billing Coordinator Diagnoses: Hearing loss - wears bilateral hearing aids. Systemic hypertension. Bronchitis - given Zpak 250 mg and Albuterol HFA 90 mcg inhaler on 02/23/22 and given Methylprednisolone Dosepak 4 mg on 02/18/22 Bronchitis - given Albuterol HFA 90 mcg and Tessalon Perles 100 mg 09/03/22 Obstructive sleep apnea -- sleep study done 05/22/13 at [facility] under Dr. Cutler. She was wearing a dental device purchased from [facility] dentistry. Patient does not wear her dental device. She is getting it refitted 10/2022. It does not help. She uses O2 at 2 liter as needed. Esophageal reflux Irritable bowel syndrome. Hyperlipidemia Iron deficiency - started on Ferrous Sulfate 325 [address] Dion Kidd in 01/2019. Hypothyroidism. Tinea pedis. Fracture of the nasal bones - given Hydrocodone 5/ from injuries sustained from fall at her son's [employer] 08/28/22 Sprain of the left foot Hammer [...] going down while she was at the [employer]; she had a nosebleed and a sore right knee; she did not go to the or ER -- #11 -- patient missed step at the [employer] and fractured her nose; she wore a [...] - Hallux valgus (bunion) correction -- 08/01/17 - Excision left foot bunion-- 2011 Surgery of arm due to fractured Humerus 11/10/2022 - had plate and screws placed User Defined 4 PREVIOUS PSYCHIATRIC HOSPITALIZATION: She was hospitalized at [facility] in 2008 due to depression; she said that she was suicidal then. She was also hospitalized at [place] at least twice from [id number]. She said again she could not remember the dates. PREVIOUS PSYCHIATRIC TREATMENT: She was under the care of Dr. Arciniega in [place]. 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 Marital: Marital history --. She was born in [place], [place]. She was raised in [place], [place] and [place], [place]. She was close to her parents while growing up and they were supportive of her. 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 She denied any history of verbal,physical or sexual abuse. Allergies - Neupro Reaction: rash - Sulfa Antibiotics Family History Paternal: Depression -- father Anxiety disorder NOS -- father Maternal: Depression -- mother Anxiety disorder NOS -- mother Sororal: Depression -- sister Review Of Systems Systemic: Feeling poorly (malaise) - occasionally tired. No fever, no chills, and no night sweats. Head: No headache and no sinus pain. Neck: Neck pain and neck stiffness. Eyes: No vision problems. Itching of the eyes. No eye pain. Otolaryngeal: Hearing loss - wears hearing aids. No earache, no nasal discharge, no hoarseness, and no sore throat. Cardiovascular: No chest pain or discomfort, no palpitations, and the heart rate was not fast. Pulmonary: Dyspnea - occasionally. No cough and no wheezing. Gastrointestinal: Heartburn. No nausea and no vomiting. Diarrhea and constipation. Genitourinary: No increase in urinary frequency. No dysuria. Endocrine: No polydipsia and no excessive sweating. Musculoskeletal: Muscle aches, pain localized to one or more joints, and joint stiffness localized to one or more joints. Neurological: No dizziness, no vertigo, no fainting, and no motor disturbances. Skin: Pruritus. No skin lesions. Rash: Physical Findings - Vitals taken 09/14/2023 11:36 am self reported vitals BP-Sitting L 149/84 mmHg BP Cuff Size Regular Pulse Rate-Sitting 82 bpm Pulse Rhythm Regular Height 63 in Weight 163 lbs Body Mass Index 28.9 kg/m2 Body Surface Area 1.8 m2 Neurological: - Mini-mental status was performed . - Recent memory was impaired in recall 3. - Oriented correctly to year. - Oriented correctly to season. - Oriented correctly to date. - Oriented correctly to day. - Oriented correctly to month. - Oriented correctly to state. - Oriented correctly to county. - Oriented correctly to town. - Oriented correctly to building. - Oriented correctly to floor. - Normal recent memory for registration. - Calculation was normal for serial sevens. - Was able to copy a design. - MMSE language testing was intact. - Able to name parts of objects. - Was able to say no ifs, ands, or buts . - Was able to follow a 3-stage command. - Was able to read and obey a written sentence. Tests Educational Testing: Questionnaires PHQ-9: Value PHQ-9: total score 3 Assessment - Nonorganic sleep apnea - Dementia - Mild Cognitive Impairment - Restless legs syndrome - Bipolar I disorder - Depressive disorder - Psychophysiological insomnia - Generalized anxiety disorder - Adult attention deficit hyperactivity disorder Therapy - Dangerousness assessment: no suicide risk. - Supportive care and encouragement--given positive reinforcement to keep patient motivated and active. - Encouragement to exercise - balanced meal plan, low fat low carb diet. - Education and instructions. - I recommended cognitive exercises such as reading and/or word search puzzles, etc.. - Assessment of suicide risk performed - not suicidal - Clinical summary provided to patient. * Call [phone] and /or go to the nearest emergency room or call me if suicidal/homicidal ideation or other serious concerns arise. * I gave instructions to call me should there be any questions or concerns. * Patient voiced understanding and agreed to treatment plan. Counseling/Education - Calming techniques such as breathing exercises/meditation and other relaxation techniques - Patient counseling I discussed risk, benefits, and side effects of sleep aid - Belsomra - including the possibility of sleep related behaviors i.e. sleepwalking, sleeptalking, sleepdriving, etc... Pt verbalized understanding Plan StartCited - Other Follow-up 12/19/23 EndCited Bipolar Depression - Lamictal 150 mg [...] 2 mg in the evening Dementia - Namzaric 28 - 10 1 capsule every morning Attention Deficit Hyperactivity Disorder - Mydayis 37.5 mg 1 capsule in the morning Psychophysiological Insomnia - Trazodone 50 mg 1 tab every night at bedtime, Belsomra 10 mg at hs as needed for sleep, encouraged good sleep hygiene habits Practice Management Use of tobacco assessment performed and patient screened for future fall risk documentation of any fall with injury in past year - 15 Review of medications documented; Standardized depression screening: positive for symptoms and for adult impression and score - please see above for treatment and PHQ score.
--- OUTSIDE RECORDS SUMMARY | 2024-09-04 14:23 | XMS_ITS | Encounter Summary ---
Author Organization [facility] Address [address] [place] [address] Phone Care Team Providers Care Meter Calibrator Name Role Phone Emmett Carrizales MD Primary Care Provider [phone] Karolyn Tobar RN Unavailable Unavailable Karolyn Tobar RN Unavailable Unavailable Ifrah Whitfield APRN, HOLISTIC NUTRITIONIST Unavailable [phone] Reason for Visit * Reason Comments Medication Refill Encounter Details Date Type Department Care Team (Late st Contact Info) Description 01/11/2021 Refill [facility] - Internal Medicine - [place] [address] [place] [address] Emmett Carrizales MD [address] [facility] [address] Medication Refill Social History Tobacco Use Types Packs/Day Years Used Date Smoking Tobacco: Never Smokeless Tobacco: Never Alcohol Use Standard Drinks/Week Comments Yes 0 (1 standard drink = 0.6 oz pur e alcohol) Sexually Active Control Partners Comments Yes Surgical Male Comments Unknown Sex and Gender Information Value Date Recorded Sex Assigned at Not on file Legal Sex Female 12:30 AM CDT Gender Identity Not on file Sexual Orientation Not on file documented as of this encounter Miscellaneous Notes * Telephone Encounter - Joycelyn Granados RN - 01/11/2021 10:54 AM CDT Please review and sign. documented in this encounter Plan of Treatment Upcoming Encounters Date Type Department Care Team (Late st Contact Info) Description 09/09/2024 11:00 AM SECTION BEAMER Office Visit [facility] Medical [facility] - Primary Care Access [facility] [address] [place] [address] Provider, [facility] 10/16/2024 11:00 AM SECTION BEAMER Office Visit [facility] Medical [facility] Internal Medicine [facility] [address] [place] [id number] Emmett Carrizales MD [address] [place] [address] documented as of this encounter Visit Diagnoses Not on filedocumented in this encounter Additional Health Concerns Infection Onset Date Last Indicated Resolved Time COVID - 19 02/21/2022 02/21/2022 03/03/2022 12:1 6 AM CDT documented as of this encounter Care Teams Meter Calibrator Relationship Specialty Start Date End Date Emmett Carrizales MD [address] [place] [address] PCP - General Internal Medicine 06/29/15 Karolyn Tobar, RN [place] Dry Goods Clerk 06/07/23 09/12/23 Karolyn Tobar, RN [place] Nurse Dry Goods Clerk 06/07/23 Ifrah Whitfield, FREIGHT RATE ANALYST, HOLISTIC NUTRITIONIST [address] [facility] [address] [place] [address] Nurse Practitioner Advanced Practice Nurse 03/06/22 documented as of this encounter
--- OUTSIDE RECORDS SUMMARY | 2024-09-04 14:23 | XMS_ITS | Referral Summary ---
Author Organization [facility] Medical Office Building [address] Address [address] [place] [address] Care Team Providers Care Cray Fishing Hand Name Role Phone Emmett Carrizales MD Primary Care Provider [phone] Allergies Active Allergy Reactions Criticality Noted Date Comments Adhesive Tape-Silicones Hives,Rash Medium Latex Hives,Rash Medium 06/29/2015 Sulfa (Sulfonamide Antibiotics) High Sulfasalazine Rash Medium 06/29/2015 Medications acetaminophen (TYLENOL) 325 mg tablet Take 1 tablet (325 mg total) by mouth every 6 (six) hours as needed for pain 6 Active amlodipine-benaze pril (LOTREL 5-10) 5-10 mg per capsuleIndication s:hypertension Take 1 capsule by mouth every morning 0 8 Active atorvastatin (LIPITOR) 20 mg tabletIndications :hyperlipidemia Take 1 tablet (20 mg total) by mouth every morning Active buPROPion XL (WELLBUTRIN XL) 300 mg 24 hr tabletIndications :Anxiety with Depression Take 1 tablet (300 mg total) by mouth every morning Active busPIRone (BUSPAR) 15 mg tabletIndications :Generalized Anxiety Disorder Take 1 tablet (15 mg total) by mouth 3 (three) times a day 11 8 Active calcium carbonate-vit D3-min 600 mg calcium- 400 unit tabletIndications :Prevention of Vitamin D Deficiency Take 2 tablets by mouth every morning Active escitalopram (LEXAPRO) 20 mg tabletIndications :Anxiety with Depression Take 1 tablet (20 mg total) by mouth every morning Active fluticasone (FLONASE) 50 mcg/actuation nasal spray as needed for allergies 1 8 Active furosemide (LASIX) 20 mg tabletIndications :Edema every morning 1 8 Active lamoTRIgine (LaMICtal) 150 mg tabletIndications :Bipolar Disorder in Remission Take 1 tablet (150 mg total) by mouth 2 (two) times a day 3 8 Active levothyroxine (SYNTHROID, LEVOTHROID) 88 mcg tabletIndications :hypothyroidism 100 mcg legislators before breakfast 1 8 Active prednisoLONE acetate (PRED FORTE) 1 % ophthalmic suspensionIndicat ions:Severe Ocular Inflammation every morning 2 9 Active aspirin 81 mg enteric coated tabletIndications :prevention of thrombosis Take 1 tablet (81 mg total) by mouth every morning Active hydrOXYzine (ATARAX) 25 mg tablet 1 Active azelastine 205.5 mcg (0.15 %) spray,non-aerosol Indications:Peren nial Allergic Rhinitis every morning 1 Active ibuprofen (ADVIL,MOTRIN) 200 mg tab/cap Take 2 tablet/capsule (400 mg total) by mouth every 6 (six) hours as needed for pain Active UNABLE TO FIND Med Name: Oxygen 2L at night Active rOPINIRole (REQUIP) 2 mg tablet 2 Active alendronate (FOSAMAX) 70 mg tablet 2 Active Trintellix 10 mg tablet 2 Active albuterol HFA (PROVENTIL HFA,VENTOLIN HFA,PROAIR HFA) 90 mcg/actuation inhaler Inhale 1-2 puffs every 6 (six) hours as needed 2 Active Mydayis 37.5 mg capsule, ER triphasic 24 hr 2 Active ferrous sulfate ER 324 mg (65 mg iron) EC tabletIndications :Iron Deficiency Anemia Take 1 tablet (324 mg total) by mouth every other day 45 tablet 3 2 Active Belsomra 10 mg tablet 3 Active naproxen (NAPROSYN) 500 mg tabletIndications :Back pain of lumbar region with sciatica Take 1 tablet (500 mg total) by mouth 2 (two) times a day as needed for pain (pain) 180 tablet 4 Active memantine (NAMENDA) 5 mg tablet Take 1 tablet (5 mg total) by mouth daily 4 Active docusate sodium (COLACE) 100 mg capsuleIndication s:constipation Take 1 capsule (100 mg total) by mouth 2 (two) times a day Active pantoprazole DR (PROTONIX) 40 mg EC tablet Take 1 tablet (40 mg total) by mouth daily 90 tablet 3 4 Active dicyclomine (BENTYL) 10 mg capsule TAKE ONE (1) TO TWO (2) PILLS UP TO FOUR (4) TIMES DAILY NEEDED FOR ABDOMINAL CRAMPING OR DIARRHEA 180 capsule 3 4 Active Namzaric 28-10 mg capsule,sprinkle, ER 24hr extended release capsule 4 Active methocarbamoL (ROBAXIN) 500 mg tablet Take 1 tablet (500 mg total) by mouth 3 (three) times a day 4 Active Active Problems Problem Noted Date Diagnosed Date Obstructive sleep apnea of adult 07/26/2022 Overview (07/26/2022): nonorganic Irritable bowel syndrome wit h both constipation and diarrhea 01/18/2022 H/O colonoscopy with polypectomy 07/20/2021 Chronic rhinitis 07/20/2021 Malocclusion 07/20/2021 Nasal turbinate hypertrophy 07/20/2021 Temporomandibular [id number]-[id number] syndrom e 07/20/2021 Mixed irritable bowel syndrome 07/20/2021 Other fatigue 06/01/2021 Incontinence of feces 12/29/2020 History of colonic polyps 10/25/2020 Overview (10/25/2020): Added automatically from request for surgery [id number] Encounter for screening colonoscopy 10/25/2020 Overview (10/25/2020): Added automatically from request for surgery [id number] BMI 30.0-30.9,adult 03/11/2020 Class 1 obesity due to exces s calories without serious comorbidity with body mass index (BMI) of 30.0 to 30.9 in adult 03/11/2020 Gastroesophageal reflux disease 09/11/2019 Overview (09/11/2019): Added automatically from request for surgery [id number] Assessment & Plan (03/11/2020 9:25 AM CDT): Doing well on pantoprazole daily. Says she does get breakthrough symptoms occasionally (maybe one weekly) but overall doing well. Continue pantoprazole daily. May use TUMS prn breakthrough symptoms. Continue to follow GERD diet. Assessment & Plan (09/16/2019 4:46 PM SCENIC ARTIST): Schedule EGD for further evaluation. Start Protonix daily instead of Pepcid. Follow-up in 6 months. Also discussed with the patient gastroesophageal reflux disease diet. Irritable bowel syndrome with diarrhea 9 Assessment & Plan (03/11/2020 9:24 AM CDT): Pt doing well on dicyclomine TID. She is having two normal BM's daily on this medication. Continue this medication. Assessment & Plan (09/16/2019 4:46 PM SCENIC ARTIST): Overall her symptoms has improved and less diarrhea with Bentyl twice daily. Will continue to follow on the pattern for symptoms. Assessment & Plan (08/22/2018 12:26 PM SCENIC ARTIST): Doing well with Dicyclomine Adult attention deficit hyperactivity disorder 0 01/16/2017 Psychophysiological insomnia 09/27/2016 Lumbar spinal stenosis 03/08/2016 Severe bipolar I disorder, m ost recent episode depressed ([facility]) 06/29/2015 Bipolar I disorder 03/13/2015 Generalized anxiety disorder 02/10/2015 Mild cognitive impairment 02/10/2015 Periodic limb movement sleep disorder 07/28/2013 Sleep apnea 04/14/2013 Overview (07/20/2021): nonorganic nonorganic Hypothyroidism, unspecified 08/02/2012 Essential hypertension, benign 08/02/2012 Fracture of nasal bones 08/02/2012 Other and unspecified hyperlipidemia 08/02/2012 Immunizations Name Administration Dates Next Due Flucelvax Influenza Quad 05/19/2019 Influenza, Quad, Adjuvantated, Intramuscular 05/2023 Influenza, Quadrivalent, Yecenia l Culture-based MDCK, Preservative Free, Antibiotic Free, Intramuscular 06/14/2021,05/18/2020 Influenza, Quadrivalent, Spl it, Preservative Free, Intramuscular 05/10/2022 Influenza, Trivalent, Adjuvanted, Intramuscular 06/30/2019 Influenza, Trivalent, Cell C ulture-based MDCK, Preservative Free, Antibiotic Free, Intramuscular 06/15/2022,05/19/2019 Influenza, Trivalent, IM (MDV) 05/15/2017 Pneumococcal Conjugate PCV 13 06/14/2021 Pneumococcal Conjugate Pcv20 06/15/2022 Tdap 08/08/2021 ZOSTER Recombinant 08/15/2022,03/14/2022 Social History Tobacco Use Types Packs/Day Years Used Date Smoking Tobacco: Never Smokeless Tobacco: Never Tobacco Cessation:Counseling Given: Not Answered Alcohol Use Standard Drinks/Week Comments No 0 (1 standard drink = 0.6 oz pur e alcohol) AUDIT-C Answer Date Recorded Q1: How often do you have a drink containing alc ohol? Never 01/14/2024 Average Number of Drinks Not on file 024 Frequency of Binge Drinking Not on file 10/2023 PHQ-2 Answer Date Recorded PHQ-2 Score 0 09/11/2019 Personal Safety Answer Date Recorded Have you ever been in or are you currently in a harmful physical or emotional relationship or is someone making you feel afraid or unsafe? Denies 11/10/2022 Comments Unknown Sex and Gender Information Value Date Recorded Sex Assigned at Not on file Legal Sex Female 12:20 AM SCENIC ARTIST Gender Identity Not on file Sexual Orientation Not on file Last Filed Vital Signs Vital Sign Reading Time Taken Comments Blood Pressure 144/86 05/26/2024 11:52 AM CDT Pulse 87 05/26/2024 11:52 AM CDT Temperature 36.4 ??C (97.6 ??F) 05/26/2024 11:52 AM C DT Respiratory Rate 18 05/26/2024 11:52 AM CDT Oxygen Saturation 97% 05/26/2024 11:52 AM CDT Inhaled Oxygen Concentration - - Weight 72.1 kg (159 lb) 05/26/2024 11:52 AM CDT Height 157.5 cm (5' 2 ) 05/26/2024 11:52 AM CDT Body Mass Index 29.08 05/26/2024 11:52 AM CDT Plan of Treatment Not on file Procedures Procedure Name Priority Date/Time Associated Diagnosis Comments COLONOSCOPY 12/01/2020 12:44 PM CDT from Last 3 Months or Most Recently Relevant to Health Maintenance Results * COLONOSCOPY (12/01/2020 12:44 PM CDT) Anatomical Region Laterality Modality Other Narrative Procedure Note Sierra Mcgarry MD - 12/01/2020 12:44 PM CDT [facility] Patient Name: Lana Darby Procedure Date: 12/01/2020 12:44 PM Date of : 1950 Admit Type: Outpatient Age: 70 Gender: Female Attending MD: Sierra Mcgarry M.D. Room: [facility] ENDOSCOPY ROOM 1 Note Status: Finalized Patient Profile: This is a 70 year old female. No family history of colon cancer. History of polyps in the past. Alsohas issues with chronic diarrhea. Procedure: Colonoscopy Indications: High risk colon cancer surveillance: Personalhistory of colonic polyps, Last colonoscopy: September2015 Referring MD: Kaylee Sotelo, Dion Kidd DO Providers: Sierra Mcgarry M.D. Impression: - One 10 mm polyp in the proximal ascending colon, removed with a cold snare. Resected andretrieved. - Random colon biopsy performed. - One 3 mm polyp in the rectum, removed with ajumbo cold forceps. Resected and retrieved. - Internal hemorrhoids. Recommendation: - Await pathology results. - Repeat colonoscopy in 5 years for screeningpurposes. Medicines: Monitored Anesthesia Care Complications: No immediate complications. Estimated Blood Loss: Estimated blood loss: none. Procedure: Pre-Anesthesia Assessment: - Prior to the procedure, a History and Physicalwas performed, and patient medications and allergieswere reviewed. The patient's tolerance of previous anesthesia was also reviewed. The risks andbenefits of the procedure and the sedation options and risks were discussed with the patient. All questions were answered, and informed consent was obtained. Prior Anticoagulants: The patient has taken no previous anticoagulant or antiplatelet agents. ASA Grade Assessment: II - A patient with mild systemicdisease. After reviewing the risks and benefits, the patient was deemed in satisfactory condition to undergo the procedure. The benefits, risks and alternatives of theprocedure and sedation were discussed and informed consentwas obtained. All questions were answered. Please referto the signed informed consent document in the medical record. The bowel preparation used was Miralax via split dose instruction. The bowel preparation usedwas bisacodyl tablets via split dose instruction. The scope was passed under direct vision. The Pediatric Colonoscope PCF-H190L [id number] was introducedthrough the anus and advanced to the the cecum, identifiedby appendiceal orifice and ileocecal valve. Thequality of the bowel preparation was excellent. Bowel prepwas administered using a split dose. Findings: The perianal and digital rectal examinations were normal. The cecum appeared normal. A 10 mm polyp was found in the proximal ascending colon. The polypwas semi-sessile. The polyp was removed with a cold snare. Resection and retrieval were complete. The colon (entire examined portion) appeared normal otherwise with no inflammatory changes. Random biopsies for histology were taken with a cold forceps from the entire colon for evaluation of microscopiccolitis. A 3 mm polyp was found in the rectum. The polyp was sessile. Thepolyp was removed with a jumbo cold forceps. Resection and retrieval were complete. Internal hemorrhoids were found during retroflexion. The hemorrhoids were small. Electronically signed by Sierra Mcgarry M.D. Sierra Mcgarry M.D. 12/01/2020 2:09:43 PM Number of Addenda: 0 Note Initiated On: 12/01/2020 12:44 PM Procedure Code(s): --- Professional --- 78235, Colonoscopy, flexible; with removal of tumor(s), polyp(s), or other lesion(s) by snare technique 56810, 59, Colonoscopy, flexible; with biopsy, single or multiple Diagnosis Code(s): --- Professional --- Z86.010, Personal history of colonic polyps K64.8, Other hemorrhoids K63.5, Polyp of colon K62.1, Rectal polyp CPT copyright 2019 [employer]. All rights reserved. The codes documented in this report are preliminary and upon formula bottler reviewmay be revised to meet current compliance requirements. Recognized by the [employer] for promoting quality in endoscopy Sierra Mcgarry MD ENDOSCOPY PROCEDURES Final Result from Last 3 Months or Most Recently Relevant to Health Maintenance Insurance [employer] MEDICARE HMO [employer] CHOICE MEDICARE O Member Subscriber Plan / Payer (Ef fective 2018-Present) Name:Lana Darby Relation to Subscriber:Self Name:Lana Darby Payer ID:[id number] (NAIC) Type:MEDICARE RISK OTHER Address: [address] [employer] MEDICARE HMO [facility] [place] [employer] Advance Directives For more information, please contact: [phone] * Full Code (Latest Code Status on File) Date Activated Date Inactivated Comments 12/01/2020 12:33 PM 12/01/2020 6:56 PM * Full Code Date Activated Date Inactivated Comments 10/29/2019 7:38 AM 10/29/2019 1:35 PM * Full Code Date Activated Date Inactivated Comments 10/29/2019 7:38 AM 10/29/2019 7:38 AM Care Teams Cray Fishing Hand Relationship Specialty Start Date End Date Emmett Carrizales MD [address] [place] [address] PCP - General Internal Medicine 08/10/21
--- OUTSIDE RECORDS SUMMARY | 2024-09-04 14:23 | XMS_ITS | Encounter Summary ---
Author Organization [facility] Address [address] [place] [address] Phone Care Team Providers Care Emergency Management Program Specialist Name Role Phone Emmett Carrizales MD Primary Care Provider [phone] Karolyn Tobar RN Unavailable Unavailable Karolyn Tobar RN Unavailable Unavailable Ifrah Whitfield APRN, PRESS SET UP Unavailable [phone] Reason for Visit * Reason Comments Medication Refill Encounter Details Date Type Department Care Team (Late st Contact Info) Description 02/14/2023 Refill [facility] - Internal Medicine - [place] [address] [place] [address] Emmett Carrizales MD [address] [facility] [place] [address] Medication Refill Social History Tobacco Use Types Packs/Day Years Used Date Smoking Tobacco: Never Smokeless Tobacco: Never Alcohol Use Standard Drinks/Week Comments Not Currently 0 (1 standard drink = 0.6 oz pur e alcohol) PHQ-2 Answer Date Recorded Total Score - Questions 1-9 0 05/14 Education Answer Date Recorded What is the [...] Telephone Encounter - Shabnam Malave RN - 02/14/2023 10:29 AM CDT Medication failed the protocol, provider to review and approve the medication order if appropriate. Requested Prescriptions Pending Prescriptions Disp Refills levothyroxine (SYNTHROID) 100 MCG Tablet [Pharmacy Med Name: LEVOTHYROXINE SODIUM 100MCG TABLET] 90Tablet 1 Sig: TAKE ONE (1) TABLET BY MOUTH EVERY DAY Thyroid Hormones Protocol Failed - 02/14/2023 10:26 AM Failed - Normal TSH in past 12 months TSH Date Value Ref Range Status 07/24/2017 5.210 (H) 0.270 - 4.200 mIU/L Final Passed - Visit with relevant provider in past 12 months or upcoming 90 days Recent Visits Date Type Provider Dept 12/21/22 Office Visit Emmett Carrizales MD [facility] [place] 11/23/22 Office Visit Kori Hudson PAC [facility] [place] 09/07/22 Office Visit Emmett Carrizales MD [facility] [place] 08/16/22 Office Visit Emmett Carrizales MD [facility] [place] 05/10/22 Office Visit Emmett Carrizales MD [facility] [place] 02/21/22 Telemedicine Emmett Carrizales MD [facility] [place] Showing recent visits within past 365 days and meeting all other requirements Future Appointments Date Type Provider Dept 04/11/23 Appointment Emmett Carrizales MD [facility] [place] Showing future appointments within next 90 days and meeting all other requirements documented in this encounter Plan of Treatment Upcoming Encounters Date Type Department Care Team (Late st Contact Info) Description 09/09/2024 11:00 AM MAPPING SPECIALIST Office Visit [facility] [address] [address] Provider, [facility] 10/16/2024 11:00 AM MAPPING SPECIALIST Office Visit [facility] - Internal Medicine [facility] [address] [place] [address] Emmett Carrizales MD [address] [place] [address] documented as of this encounter Visit Diagnoses Not on filedocumented in this encounter Additional Health Concerns Assessment Noted Time PHQ-9 Depression Total Score: 0 06/01/20 21 3:00 PM CDT documented as of this encounter Care Teams Emergency Management Program Specialist Relationship Specialty Start Date End Date Emmett Carrizales MD [address] [place] [address] PCP - General Internal Medicine 06/29/15 Karolyn Tobar, RN [place] Manager Safe 06/07/23 09/12/23 Karolyn Tobar, RN [place] Nurse Manager Safe 06/07/23 Ifrah Whitfield APRN, PRESS SET UP [address] [address] [address] Nurse Practitioner Advanced Practice Nurse 03/06/22 documented as of this encounter
--- OUTSIDE RECORDS SUMMARY | 2024-09-04 14:23 | XMS_ITS | Clinical Summary ---
Author Organization [facility] Address [address] [place] [address] Care Team Providers Care Park Ranger Name Role Phone Emmett Carrizales MD Primary Care Provider [phone] Allergies Active Allergy Reactions Criticality Noted Date [...] LEVOTHROID) 88 mcg tabletIndications :hypothyroidism 100 mcg financial administration officer before breakfast 1 8 Active prednisoLONE acetate [...] Malocclusion 07/20/2021 Nasal turbinate hypertrophy 07/20/2021 Temporomandibular syhal-hfzq-nlerelfzkmn syndrom e 07/20/2021 Mixed irritable bowel syndrome 07/20/2021 Other fatigue 06/01/2021 Incontinence of feces 12/29/2020 History of colonic polyps 10/25/2020 Overview (10/25/2020): Added automatically from request for surgery [id number] Encounter for screening colonoscopy 10/25/2020 Overview (10/25/2020): Added automatically from request for surgery [id number] BMI 30.0-30.9,adult 03/11/2020 Class 1 obesity due to exces s calories without serious comorbidity with body mass index (BMI) of 30.0 to 30.9 in adult 03/11/2020 Gastroesophageal reflux disease 09/11/2019 Overview (09/11/2019): Added automatically from request for surgery [id number] Assessment & Plan (03/11/2020 9:25 AM CDT): Doing well on pantoprazole daily. Says she does get breakthrough symptoms occasionally (maybe one weekly) but overall doing well. Continue pantoprazole daily. May use TUMS prn breakthrough symptoms. Continue to follow GERD diet. Assessment & Plan (09/16/2019 4:46 PM CONTACT LENS FLASHING PUNCHER): Schedule EGD for further evaluation. Start Protonix daily instead of Pepcid. Follow-up in 6 months. Also discussed with the patient gastroesophageal reflux disease diet. Irritable bowel syndrome with diarrhea 9 Assessment & Plan (03/11/2020 9:24 AM CDT): Pt doing well on dicyclomine TID. She is having two normal BM's daily on this medication. Continue this medication. Assessment & Plan (09/16/2019 4:46 PM CONTACT LENS FLASHING PUNCHER): Overall her symptoms has improved and less diarrhea with Bentyl twice daily. Will continue to follow on the pattern for symptoms. Assessment & Plan (08/22/2018 12:26 PM CONTACT LENS FLASHING PUNCHER): Doing well with Dicyclomine Adult attention deficit hyperactivity disorder 0 01/16/2017 Psychophysiological insomnia 09/27/2016 Lumbar spinal stenosis 03/08/2016 Severe bipolar I disorder, m ost recent episode depressed ([facility]) 06/29/2015 Bipolar I disorder [...] Pcv20 06/15/2022 Tdap 08/08/2021 ZOSTER Recombinant 08/15/2022,03/14/2022 Surgical History Surgery Date Site/Laterality Comments TOE SURGERY 1989' Left big next toe, pinky CHOLECYSTECTOMY 08/13/1999 - 08/12/2000 HYSTERECTOMY 08/13/1991 - 08/12/1992 POLYPECTOMY 08/13/1989 - 08/12/1990 FOOT SURGERY 08/13/2020 - 09/12/2020 left foot COLONOSCOPY 10/08/2015 COLONOSCOPY 12/01/2020 CORRECTION HAMMER TOE 12/14/2023 Left Medical History Medical History Date Comments Hypertension Hyperlipidemia GERD (gastroesophageal reflux disease) Irritable bowel syndrome Hypothyroidism Colon polyp Chronic constipation Chronic diarrhea Bipolar disorder (HCC) Family History Medical History Relation Name Comments Melanoma Brother Emphysema Father Lung cancer Mother Anesthesia problems Neg Hx Relation Name Status Comments Brother Father Mother Sister Social History Tobacco Use Types Packs/Day Years [...] on file Legal Sex Female 12:20 AM CONTACT LENS FLASHING PUNCHER Gender Identity Not on file Sexual Orientation Not on file Obstetrics History Last Filed Vital Signs Vital Sign Reading [...] 05/26/2024 11:52 AM CDT Plan of Treatment Health Maintenance Due Date Last Done Comments Breast Cancer Screening-Mammogram 1950 Hepatitis C Screening 1950 Osteoporosis Screening-Bone Density Scan 1950 Hepatitis B Screening 1970 Well Visit 65+ 2017 Depression Screening 09/11/2020 09/11/2019, 09/11/19 20 Fall Risk Assessment 08/18/2022 08/18/2021, 09/11/19 20 Covid-19 Vaccine (4 - 2023-2 5 season) 2024 03/23/2021, 11/18/2020, 10/19/2020 Influenza Vaccine (#1) 2024 , 06/15/2022, 05/10/2022, Additional history exists Colon Cancer Screening-Colonoscopy 12/01/2030 12/01/2020, 10/08/2015, 10/08/2015 DTaP/Tdap/Td Vaccine (2 - Td or Tdap) 08/08/2031 08/08/2021 Colon Cancer Screening-CT Colonography Discontinued 12/01/2020, 10/08/2015, 10/08/2015 Colon Cancer Screening-DNA Stool Discontinued 12/01/2020, 10/08/2015, 10/08/2015 Colon Cancer Screening-FIT Discontinued 12/01, 10/08/2015, 10/08/2015 Colon Cancer Screening-Sigmoidoscopy Discontinued 12/01/2020, 10/08/2015, 10/08/2015 Pneumococcal vaccine 65+ Completed 06/15/2022, 110 09/2020 Zoster Vaccine Completed 08/15/2022, 03/14/2022 Procedures Procedure Name Priority Date/Time Associated Diagnosis Comments COLONOSCOPY 12/01/2020 12:44 PM CDT from Last 3 Months or Most Recently Relevant to Health Maintenance Results * COLONOSCOPY (12/01/2020 12:44 PM CDT) Anatomical Region Laterality Modality Other Narrative Procedure Note Sierra Mcgarry MD - 12/01/2020 12:44 PM CDT [facility] Patient Name: Lana Darby Procedure Date: 12/01/2020 12:44 PM Date of : 1950 Admit Type: Outpatient Age: 70 Gender: Female Attending MD: Sierra Mcgarry M.D. Room: [facility] ENDOSCOPY ROOM 1 Note Status: Finalized Patient Profile: This is a 70 year old female. No family history of colon cancer. History of polyps in the past. Sharyns issues with chronic diarrhea. Procedure: Colonoscopy Indications: High risk colon cancer surveillance: Personalhistory of colonic polyps, Last colonoscopy: September2015 Referring MD: Kaylee Sotelo, Dion iKdd DO Providers: Sierra Mcgarry M.D. Impression: - [...] under direct vision. The Pediatric Colonoscope PCF-H190L [id number] was introducedthrough the anus and advanced to [...] 12:44 PM Procedure Code(s): --- Professional --- 81794, Colonoscopy, flexible; with removal of tumor(s), polyp(s), or other lesion(s) by snare technique 64222, 59, Colonoscopy, flexible; with biopsy, single or multiple Diagnosis Code(s): --- Professional --- Z86.010, Personal history of colonic polyps K64.8, Other hemorrhoids K63.5, Polyp of colon K62.1, Rectal polyp CPT copyright 2019 [employer]. All rights reserved. The codes documented in this report are preliminary and upon cloth examiner reviewmay be revised to meet current compliance requirements. Recognized by the [employer] for promoting quality in endoscopy Sierra Mcgarry MD ENDOSCOPY PROCEDURES Final Result from Last 3 Months or Most Recently Relevant to Health Maintenance Insurance [employer] MED[employer]ARE HMO HUMAN CHOICE MEDICARE O [employer] MEDICARE HMO [address] FEDERAL Advance Directives For more information, please contact: [phone] * Full Code (Latest Code Status on File) Date Activated Date Inactivated Comments 12/01/2020 12:33 PM 12/01/2020 6:56 PM * Full Code Date Activated Date Inactivated Comments 10/29/2019 7:38 AM 10/29/2019 1:35 PM * Full Code Date Activated Date Inactivated Comments 10/29/2019 7:38 AM 10/29/2019 7:38 AM Care Teams Park Ranger Relationship Specialty Start Date End Date Emmett Carrizales MD [address] [place] [address] PCP - General Internal Medicine 08/10/21
--- OUTSIDE RECORDS SUMMARY | 2024-09-04 14:23 | XMS_ITS | Encounter Summary ---
Author Organization [facility] Address [address] [place] [address] Phone Care Team Providers Care Solar Energy Sales Specialist Name Role Phone Emmett Carrizales MD Primary Care Provider [phone] [phone] Karolyn Tobar RN Unavailable Unavailable Karolyn Tobar RN Unavailable Unavailable Ifrah Whitfield APRN, TEST ENGINEERING INTERN Unavailable [phone]- [phone] Reason for Visit * Reason Comments Medication Refill Encounter Details Date Type Department Care Team (Late st Contact Info) Description 03/12/2023 Refill [facility] - [facility] - [place] [address] [place] [address] Emmett Carrizales MD [address] [facility] [address] Medication Refill Social History Tobacco Use Types [...] st Contact Info) Description 09/09/2024 11:00 AM TESTER ELECTRONIC SCALE Office Visit [facility] - Primary Care [facility] [address] [facility] [place] [address] Provider, [facility] 10/16/2024 11:00 AM TESTER ELECTRONIC SCALE Office Visit [facility] Internal Medicine [facility] [address] [place] [address] Emmett Carirzales MD [address] [place] [address] documented as of this encounter Visit Diagnoses Not on filedocumented in this encounter Additional Health Concerns Assessment Noted Time PHQ-9 Depression Total Score: 0 06/01/20 21 3:00 PM CDT documented as of this encounter Care Teams Solar Energy Sales Specialist Relationship Specialty Start Date End Date Emmett Carrizales MD [address] [place] [address] PCP - General Internal Medicine 06/29/15 Karolyn Tobar, RN [place] Manager Orange 06/07/23 09/12/23 Karolyn Tobar RN ID Nurse Manager Orange 06/07/23 Ifrah Whitfield APRN, TEST ENGINEERING INTERN [address] [facility] [place] [address] [place] [address] Nurse Practitioner Advanced Practice Nurse 03/06/22 documented as of this encounter
--- OUTSIDE RECORDS SUMMARY | 2024-09-04 14:23 | XMS_ITS | Encounter Summary ---
Author Organization [facility] Address [address] [place] [address] Phone Care Team Providers Care Supervising Nurse Name Role Phone Emmett Carrizales MD Primary Care Provider [phone] [phone] Karolyn Tobar RN Unavailable Unavailable Karolyn Tobar RN Unavailable Unavailable Ifrah Whitfield APRN, HOST AND HOSTESS Unavailable [phone] Reason for Visit * Reason Comments Medication Refill Encounter Details Date Type Department Care Team (Late st Contact Info) Description 03/14/2023 Refill [facility] [address] [place] [address] Emmett Carrizales MD [address] [place] [address] Medication Refill Social History Tobacco [...] Telephone Encounter - Shabnam Malave RN - 03/14/2023 11:42 AM CDT Per nursing clinical judgement, provider to review and approve the medication(s) order(s) if appropriate. Requested Prescriptions Pending Prescriptions Disp Refills amLODIPine-benazepril (LOTREL) 5-10 MG Capsule [Pharmacy Med Name: AMLODIPINE BESYLATE/BENAZEPRIL HYDROCHLORIDE 5-10MG CAPSULE] 30 Capsule 0 Sig: Take 1 Capsule by mouth daily. There is no refill protocol information for this order documented in this encounter Plan of Treatment Upcoming Encounters Date Type Department Care Team (Late st Contact Info) Description 09/09/2024 11:00 AM CUSTOMER DATA TECHNICIAN Office Visit [facility] - Primary Care [address] [address] Provider, [facility] 10/16/2024 11:00 AM CUSTOMER DATA TECHNICIAN Office Visit [facility] Internal Medicine [facility] [address] [place] [address] Emmett Carrizales MD [address] [place] [address] documented as of this encounter Visit Diagnoses Not on filedocumented in this encounter Additional Health Concerns Assessment Noted Time PHQ-9 Depression Total Score: 0 06/01/20 21 3:00 PM CDT documented as of this encounter Care Teams Supervising Nurse Relationship Specialty Start Date End Date Emmett Carrizales MD [address] [place] [address] PCP - General Internal Medicine 06/29/15 Karolyn Tobar RN [place] Research Programmer 06/07/23 09/12/23 Karolyn Tobar, RN [place] Nurse Research Programmer 06/07/23 Ifrah Whitfield, AIRAM, HOST AND HOSTESS [address] [address] Nurse Practitioner Advanced Practice Nurse 03/06/22 documented as of this encounter
--- OUTSIDE RECORDS SUMMARY | 2024-09-04 14:23 | XMS_ITS ---
Author Organization [facility] Address [address] [place] [address] Phone Care Team Providers Care Guide Dog Instructor Name Role Phone Emmett Carrizales MD Primary Care Provider [phone]- [phone] Karolyn Tobar RN Unavailable Unavailable Ifrah Whitfield APRN, GARDENING INSTRUCTOR Unavailable [phone]- [phone] Ambulatory Complex Care Management Status:Enrolled (Active) Start date:06/07/2023 Enrollment date:06/07/2023 Current support & services provided:RN Care Managed Related social drivers of health:Intimate Partner Violence, Social Connections, Alcohol Use, Financial Resource Strain, Stress, Physical Activity, Food Insecurity, Transportation Needs, Housing Stability, Utilities Overview Complex Care Management Program Case Team Name Relationship Phone Karolyn Tobar RN Nurse Junior Brand Manager(Responsible Staff) Continued Care and Services Coordination
--- OUTSIDE RECORDS SUMMARY | 2024-09-04 14:24 | XMS_ITS | Clinical Summary ---
Author Organization [facility] Address [address] [place] [address] Phone Care Team Providers Care Fiscal Accounting Clerk Name Role Phone RHIANNON DAI, EILEEN JJ [...] Active Last Documented On 8 6:05AM ; [facility] Adult Attention Deficit Hype ractivity Disorder 01/16/2017 EILEEN VINCENT MD Active Last Documented On 7 11:10AM ; [facility] Psychophysiological Insomnia 09/27/2016 EILEEN VINCENT MD Active Last Documented On 7 10:35AM ; [facility] Bipolar I Disorder 03/13/2015 EILEEN BREEN MD Active Last Documented On 5 10:21AM ; [facility] Dementia 02/10/2015 EILEEN VINCENT MD Ac tive Last Documented On 5 10:58AM ; [facility] Generalized Anxiety Disorder 02/10/2015 EILEEN VINCENT MD Active Last Documented On 5 10:22AM ; [facility] Restless Legs Syndrome 07/28/2013 EILEEN DE LA VEGA MD Inactive Last Documented On 5 10:42AM ; [facility] Restless Legs Syndrome 07/28/2013 EILEEN DE LA VEGA MD Active Last Documented On 1 11:20AM ; [facility] Past Visits Onset Date Resolved Date Provider Condition Status Mild cognitive impairment of uncertain or unknown etiology 02/10/2015 EILEEN VINCENT MD Active Last Documented On 5 10:36AM ; [facility] Sleep apnea, unspecified 04/14/2013 EILEEN VINCENT MD Active Last Documented On 5 10:51AM ; [facility] Hypothyroidism, unspecified 08/02/2012 EILEEN VINCENT MD Active Last Documented On 5 10:49AM ; [facility] Gastro-esophageal reflux dis ease without esophagitis 08/02/2012 EILEEN VINCENT MD Active Last Documented On 5 10:37AM ; [facility] Fracture of Nasal Bones 08/02/2012 EILEEN VINCENT MD Active Last Documented On 2 11:16AM ; [facility] Hyperlipidemia, unspecified 08/02/2012 EILEEN VINCENT MD Active Last Documented On 5 10:38AM ; [facility] Essential (primary) hypertension 08/02/2012 MET LEONIDES VINCENT MD Active Last Documented On 5 10:38AM ; [facility] Irritable bowel syndrome without diarrhea 08/02/2012 EILEEN VINCENT MD Active Last Documented On 5 10:50AM ; [facility] Plan of Treatment Bipolar Depression - [...] - Last Documented On 10/30/2022 1:02AM ; [facility] Education and Decision Aids were provided during visit for: Patient counseling I discuss ed risk, benefits, and side effects of sleep aid - Belsomra - including the possibility of sleep related behaviors i.e. sleepwalking, sleeptalking, sleepdriving, etc... Pt verbalized understanding. So far, pt denied sleep related behaviors Last Documented On 3 12:52AM ; [facility] Discussed good sleep hygiene habits Last Documented On 3 11:27AM ; [facility] I recommended cognitive exer cises such as reading and/or word search puzzles, etc.. Last Documented On 3 11:51PM ; [facility] Assessments Includes: Assessments from this encounter Findings - Dementia - Last Documented On 10/30/2022 1:02AM ; [facility] - Restless legs syndrome - Last Documented On 10/30/2022 1:02AM ; [facility] - Bipolar I disorder - Last Documented On 10/30/2022 1:02AM ; [facility] - Depressive disorder - Last Documented On 10/30/2022 1:02AM ; [facility] - Psychophysiological insomnia - Last Documented On 10/30/2022 1:02AM ; [facility] - Generalized anxiety disorder - Last Documented On 10/30/2022 1:02AM ; [facility] - Adult attention deficit hyperactivity disorder - Last Documented On 10/30/2022 1:02AM ; [facility] Instructions Includes: Instructions from this encounter Education and Decision Aids were provided during visit for: Patient counseling I discuss ed risk, benefits, and side effects of sleep aid - Belsomra - including the possibility of sleep related behaviors i.e. sleepwalking, sleeptalking, sleepdriving, etc... Pt verbalized understanding. So far, pt denied sleep related behaviors Last Documented On 3 12:52AM ; [facility] Discussed good sleep hygiene habits Last Documented On 3 11:27AM ; [facility] I recommended cognitive exer cises such as reading and/or word search puzzles, etc.. Last Documented On 3 11:51PM ; [facility] Medical Equipment - Implanted Devices Includes: [...] 3 10:52AM By WISAM JUAREZ Timo ; [facility] Quviviq 50 MG Oral Tablet Provider: EILEEN VINCENT MD Diagnosis: Psychophysiologi c insomnia Last Documented On 3 10:52AM By WISAM JUAREZ Timo ; [facility] hydrOXYzine HCl 25 MG Oral Tablet Provide r: EILEEN VINCENT MD Diagnosis: Last Documented On 10/17/2022 7:11PM By Radha Vincent MD ; [facility] lamoTRIgine 150 MG Oral Tablet Provider: EILEEN VINCENT MD Diagnosis: Bipolar disorder , unspecified Last Documented On 3 10:53AM By WISAM CASH ; [facility] busPIRone HCl 15 MG Oral Tablet Provider: EILEEN VINCENT MD Diagnosis: Generalized anxi ety disorder Last Documented On 3 10:53AM By WISAM JUAREZ Timo ; [facility] Current Medications (continue as prescribed) Mydayis 37.5 MG Oral Capsule Extended Release 24 Hour 12/07/2022 Provider: EILEEN VINCENT MD Diagnosis: Attention-defici t hyperactivity disorder, combined type 1 Capsule every morning Last Documented On 12/07/2022 4:33PM By Radha Vincent MD ; [facility] hydrOXYzine HCl 25 MG Oral Tablet 10/17/2022 Provide r: EILEEN VINCENT MD Diagnosis: 1 tab a day as needed only for itching/anxiety Last Documented On 10/17/2022 7:11PM By Radha Vincent MD ; [facility] Belsomra 10 MG Oral Tablet 09/27/2022 Provider: EILEEN VINCENT MD Diagnosis: Psychophysiologi c insomnia DIRECTED - ONE (1) TAB AT BEDTIME NEEDED FOR SLEEP Last Documented On 3 11:26AM By Radha Vincent MD ; [facility] Escitalopram Oxalate 20 MG Oral Tablet 09/25/2022 Provider: EILEEN VINCENT MD Diagnosis: Generalized anxi ety disorder TAKE ONE TABLET BY MOUTH DAILY Last Documented On 3 10:40AM By Radha Vincent MD ; [facility] lamoTRIgine 150 MG Oral Tablet 09/25/2022 Provider: EILEEN VINCENT MD Diagnosis: TAKE ONE TABLET BY MOUTH TWO TIMES A DAY Last Documented On 3 10:40AM By Radha Vincent MD ; [facility] rOPINIRole HCl 2 MG Oral Tablet 09/25/2022 Provider: EILEEN VINCENT MD Diagnosis: Restless legs sy ndrome DIRECTED - ONE (1) TAB AT FIVE (5) IN THE EVENING FOR RESTLESS LEGS Last Documented On 3 10:37AM By Radha Vincent MD ; [facility] buPROPion HCl ER (XL) 300 MG Oral Tablet Extended Release 24 Hour 07/03/2022 Provider: EILEEN VINCENT MD Diagnosis: Major depressive disorder, single episode, unspecified 1 tablet every morning Last Documented On 07/03/2022 1:56PM By Radha Vincent MD ; [facility] Alendronate Sodium 70 MG Oral Tablet 06/19/2022 Prov ider: WOLF MITCHELL MD Diagnosis: 1 tab weekly Last Documented On 2 11:54AM By WISAM CASH ; [facility] traZODone HCl 50 MG Oral Tablet 02/07/2022 Provider: EILEEN VINCENT MD Diagnosis: TAKE ONE (1) OR TWO (2) TABL ETS BY MOUTH AT BEDTIME NEEDED SLEEP Last Documented On 2 10:04AM By Radha Vincent MD ; [facility] Levothyroxine Sodium 100 MCG Oral Capsule 04/14/2020 Provider: GOLDIE KIDD MD Diagnosis: 1 tab daily Last Documented On 0 11:36AM By WISAM CASH ; [facility] Pantoprazole Sodium 40 MG Or al Tablet Delayed Release 11/15/2019 Provider: SIERRA MCGARRY Diagnosis: 1 tab daily Last Documented On 0 11:20AM By WISAM CASH ; [facility] Azelastine HCl 0.15% Nasal Solution 08/21/2019 Provi itz: GOLDIE KIDD MD Diagnosis: 2 sprays in each nostril twice a day Last Documented On 0 11:35AM By WISAM CASH ; [facility] Ferrous Sulfate 325 (65 Fe) MG Oral Tablet 04/10/2019 Provider: GOLDIE KIDD MD Diagnosis: 1 tab daily Last Documented On 04/10/2019 1:36PM By WISAM CASH ; [facility] Fluticasone Propionate 50MCG /ACT Nasal Suspension 07/25/2018 Provider: BETSY CARRIZALES MD Diagnosis: 2 sprays in each nostril daily Last Documented On 11/28/2018 3:50PM By WISAM CASH ; [facility] Amlodipine Besy-Benazepril H Cl 5-10 MG Capsule, conventional 03/04/2016 Provider: BETSY CARRIZALES MD Diagnosis: 1 daily Last Documented On 6 9:55AM By WILMER REDDY LPN ; [facility] Lipitor 20 MG Tablet 11/10/2015 Provider: JEFFERSON CARRIZALES MD Diagnosis: 1 tablet every evening Last Documented On 6 10:25AM By WILMER REDDY LPN ; [facility] Dicyclomine HCl 10 MG Capsule, conventional 11/10/2015 Provider: BETSY CARRIZALES MD Diagnosis: 1 capsule daily Last Documented On 6 10:22AM By WILMER REDDY LPN ; [facility] Aspirin 81 MG Tablet 11/10/2015 Provider: JEFFERSON CARRIZALES MD Diagnosis: 1 tablet daily Last Documented On 6 10:23AM By WILMER REDDY LPN ; [facility] Lasix 20 MG Tablet 11/10/2015 Provider: BETSY CARRIZALES MD Diagnosis: 1 tablet every morning Last Documented On 6 10:24AM By WILMER REDDY LPN ; [facility] Suspended Medications Trintellix 10 MG Oral Tablet 11/16/2022 Provider: EILEEN VINCENT MD Diagnosis: Major depressive disorder, single episode, unspecified TAKE ONE (1) TABLET BY MOUTH DAILY Last Documented On 3 12:52PM By Radha Vincent MD ; [facility] Namzaric 28-10 MG Oral Capsule Extended Release 24 Hour 10/17/2022 Provider: EILEEN VINCENT MD Diagnosis: Dem in oth dis c lassd elswhr,unsp sev,w/o beh/psych/mood/anx TAKE ONE CAPSULE BY MOUTH EV HELLEN MORNING Last Documented On 3 11:37AM By Radha Vincent MD ; [facility] busPIRone HCl 15 MG Oral Tablet 08/29/2022 Provider: EILEEN VINCENT MD Diagnosis: TAKE ONE TABLET BY MOUTH THREE TIMES a DAY Last Documented On 08/29/2022 3:43PM By Radha Vincent MD ; [facility] Past Medications on file hydrOXYzine HCl 25 MG Oral Tablet 10/08/2020 - 11/07/2020 Provider: EILEEN VINCENT MD Diagnosis: Generalized anxi ety disorder as directed - 1 tab a day as needed for agitation/anxiety Last Documented On 10/08/2020 2:47PM By Radha Vincent MD ; [facility] LaMICtal 150MG Oral Tablet 09/24/2018 - 09/27/2018 Provider: EILEEN VINCENT MD Diagnosis: Bipolar disorder , unspecified One tablet twice a day Last Documented On 09/24/2018 1:31PM By Radha Vincent MD ; [facility] Atorvastatin Calcium 20 MG OR TABS 01/28/2013 - 2012 Provider: Diagnosis: Last Documented On 3 3:46PM By TERRI CASH ; [facility] Medications Administered Includes: Administered Medications from [...] Last Documented: On 10/17/2022 11:28A M ; [facility] Results Includes: Results discussed [...] 08/21/2019 Last Documented On 3 10:50AM ; [facility] She was born in [place], [place]. She was raised in [place], [place] and [place], [place]. She was close to her parents while growing up and they were supportive of her. 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 11/08/2012 Last Documented On 3 10:50AM ; [facility] Not using alcohol 08/02/2012 Last Documented On 3 10:50AM ; [facility] Not using drugs (Illicit) 08/02/2012 Last Documented On 3 10:50AM ; [facility] Smoking status : Never smoked 08/02/2012 Last Documented On 3 10:50AM ; [facility] Procedures and Surgical History Includes: Procedures from this encounter Procedures Code Diagnosis Performing Provider Service L ocation Service Date education and instructions Last Documented On 3 10:50AM ; [facility] dangerousness assessment: suicide risk -not suic idal 3085F Last Documented On 3 10:50AM ; [facility] use of tobacco assessment performed 1000F Last Documented On 3 10:50AM ; [facility] patient screened for future fall risk - 15 3288F Last Documented On 3 11:27AM ; [facility] review of medications documented 1160F Last Documented On 3 10:50AM ; [facility] screening for adult depressi on: impression and score - please see above treatment and PHQ score Last Documented On 3 10:50AM ; [facility] standardized depression screening: posit kofi for symptoms Last Documented On 3 10:50AM ; [facility] encouragement to exercise Last Documented On 3 10:50AM ; [facility] Clinical summary provided to patient Last Documented On 3 10:50AM ; [facility] PHQ-9: total score 4 Last Documented On 3 10:30AM ; [facility] Surgical History Last Updated 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 04/201811/28/2018 Last Documented On 3 10:50AM ; [facility] History of hallux valgus (bunion) correc tion -- 08/01/17 09/07/2017 Last Documented On 3 10:50AM ; [facility] History of excision left foot bunion-- 2 012 01/28/2015 Last Documented On 3 10:50AM ; [facility] History of tubal ligation 01/28/2015 Last Documented On 3 10:50AM ; [facility] History of hysterectomy 01/28/2015 Last Documented On 3 10:50AM ; [facility] History of cholecystectomy 08/02/2012 Last Documented On 3 10:50AM ; [facility] Medical History Includes: Medical History addressed during this encounter Description Last Updated History of bronchitis - give n Albuterol HFA 90 mcg and Tessalon Perles 100 mg 09/03/22 10/17/2022 Last Documented On 3 1:02AM ; [facility] History of bronchitis - give n Zpak 250 mg and Albuterol HFA 90 mcg inhaler on 02/23/22 and given Methylprednisolone Dosepak 4 mg on 02/18/22 10/17/2022 Last Documented On 3 10:50AM ; [facility] History of fracture of the n juan f bones - given Hydrocodone 5/325 from injuries sustained from fall at her son's [employer] 08/28/22 10/17/2022 Last Documented On 3 1:02AM ; [facility] History of fall risk -- pt [...] 10/17/2022 Last Documented On 3 1:02AM ; [facility] History of obstructive sleep apnea -- sleep study done 05/22/13 at [facility] under Dr. Cutler. She was wearing a dental device purchased from [employer]. Patient wears her dental device. She is getting it refitted 10/2022. She uses O2 at 2 liter as needed 10/17/2022 Last Documented On 3 1:02AM ; [facility] Primary Care Provider: Dr. Angela Carrizales ~Dr. Sierra Mcgarry -- Pcts ~Dr. Naveed Lala, DPM -- Traffic Operations Manager ~Dr. Wolf Mitchell -- Surgery Center Administrator ~Dr. Keanu Mitchell, NICKY -- Dentist ~Dr. Joshua Hanson, OD -- Utility Mechanic Supervisor 07/17/2022 Last Documented On 3 10:50AM ; [facility] History of hammer toe - 2nd toe of left foot straightened by Dr. Hiro Arthur 11/05/20 -- given Keflex 500 mg 04/05/2022 Last Documented On 3 10:50AM ; [facility] History of coronavirus 2019- nCoV vaccine - Pfizer #1 11/02/20 #2 03/23/21 -- as of 07/29/21 no booster yet 07/29/2021 Last Documented On 3 10:50AM ; [facility] History of vaginal candidiasis - given F lagyl 500 mg 11/06/20 12/20/2020 Last Documented On 3 10:50AM ; [facility] History of colonoscopy - 11/202012/21/19 21 Last Documented On 3 10:50AM ; [facility] History of hearing loss - wears bilatera l hearing aids 04/10/2019 Last Documented On 3 10:50AM ; [facility] History of iron deficiency - started on Ferrous Sulfate 325 [address] Goldie Kidd in 01/201904/10/2019 Last Documented On 3 10:50AM ; [facility] History of head injury /brain trauma Last Documented On 3 10:50AM ; [facility] History of sprain of the left foot 01/03 Last Documented On 3 10:50AM ; [facility] History of tinea pedis 08/01/2016 Last Documented On 3 10:50AM ; [facility] History of Epidural Steroid Injection -- 03/08/[address] Yi for back pain 03/13/2016 Last Documented On 3 10:50AM ; [facility] History of irritable bowel syndrome 01/13 Last Documented On 3 10:50AM ; [facility] History of esophageal reflux 08/02/2012 Last Documented On 3 10:50AM ; [facility] History of hypothyroidism 08/02/2012 Last Documented On 3 10:50AM ; [facility] History of hyperlipidemia 08/02/2012 Last Documented On 3 10:50AM ; [facility] History of hypertension 08/02/2012 Last Documented On 3 10:50AM ; [facility] Family History Includes: Family History addressed during this encounter Description Last Updated Paternal history of depression -- father 10/15/2014 Last Documented On 3 10:50AM ; [facility] Maternal history of depression -- mother 10/15/2014 Last Documented On 3 10:50AM ; [facility] Sororal history of depression -- sister 10/15/2014 Last Documented On 3 10:50AM ; [facility] Maternal history of anxiety disorder NOS -- mother 10/15/2014 Last Documented On 3 10:50AM ; [facility] Paternal history of anxiety disorder NOS -- father 10/15/2014 Last Documented On 3 10:50AM ; [facility] Review of Systems Includes: Review of [...] Oriented correctly to town [facility] to [facility] Normal recent memory [...] esolved Last Documented On 9 1:33PM ; [facility] Sulfa Antibiotics Allergy 08/02/2012 A ctive Last Documented On 4 11:08AM ; [facility] Note: Imported from external source. Neupro Allergy rash 10/23/2013 Active Last Documented On 4 11:08AM ; [facility] Note: Imported from external source. Encounters Encounter Provider Location Date Check-In Time Check-Out Time Diagnosis [facility] VINCENT MD [facility] 10/18/19 23 10:49AM 11:59PM Generalized Anxiety Disorder,Restless Legs Syndrome,Dementia ,Psychophysiologi maday Insomnia,Bipolar I Disorder,Adult Attention Deficit Hyperactivity Disorder,Depressi ve Disorder, Nos Insurance Includes: Active Insurance Policies Plan Name Member ID Group # Subscriber Relationship Effect kofi Dates 1 - [facility] [place] [id number] EDITH DARBY Self 2 - [facility] [id number] INGRID DARBY 0 - Unknown Clinical Notes Includes: Clinical Notes from this encounter No Clinical Notes Recorded
--- OUTSIDE RECORDS SUMMARY | 2024-09-04 14:24 | XMS_ITS | Clinical Summary ---
Author Organization [facility] Address [address] [place] [address] Phone Care Team Providers Care Piano Maker Name Role Phone RHIANNON DAI, EILEEN JJ [...] Active Last Documented On 8 6:05AM ; [facility] Adult Attention Deficit Hype ractivity Disorder 01/16/2017 EILEEN VINCENT MD Active Last Documented On 7 11:10AM ; [facility] Psychophysiological Insomnia 09/27/2016 EILEEN VINCENT MD Active Last Documented On 7 10:35AM ; [facility] Bipolar I Disorder 03/13/2015 EILEEN BREEN MD Active Last Documented On 5 10:21AM ; [facility] Dementia 02/10/2015 EILEEN VINCENT MD Ac tive Last Documented On 5 10:58AM ; [facility] Generalized Anxiety Disorder 02/10/2015 EILEEN VINCENT MD Active Last Documented On 5 10:22AM ; [facility] Restless Legs Syndrome 07/28/2013 EILEEN DE LA VEGA MD Inactive Last Documented On 5 10:42AM ; [facility] Restless Legs Syndrome 07/28/2013 EILEEN DE LA VEGA MD Active Last Documented On 1 11:20AM ; [facility] Past Visits Onset Date Resolved Date Provider Condition Status Mild cognitive impairment of uncertain or unknown etiology 02/10/2015 EILEEN VINCENT MD Active Last Documented On 5 10:36AM ; [facility] Sleep apnea, unspecified 04/14/2013 EILEEN VINCENT MD Active Last Documented On 5 10:51AM ; [facility] Hypothyroidism, unspecified 08/02/2012 EILEEN VINCENT MD Active Last Documented On 5 10:49AM ; [facility] Gastro-esophageal reflux dis ease without esophagitis 08/02/2012 EILEEN VINCENT MD Active Last Documented On 5 10:37AM ; [facility] Fracture of Nasal Bones 08/02/2012 EILEEN VINCENT MD Active Last Documented On 2 11:16AM ; [facility] Hyperlipidemia, unspecified 08/02/2012 EILEEN VINCENT MD Active Last Documented On 5 10:38AM ; [facility] Essential (primary) hypertension 08/02/2012 MET LEONIDES VINCENT MD Active Last Documented On 5 10:38AM ; [facility] Irritable bowel syndrome without diarrhea 08/02/2012 EILEEN VINCENT MD Active Last Documented On 5 10:50AM ; [facility] Plan of Treatment Bipolar Depression - [...] - Last Documented On 05/11/2022 12:54PM ; [facility] Instructions to patient Lose weight - pt gained 7 lb s since last seen Last Documented On 12:51PM ; [facility] Education and Decision Aids were provided during visit for: Patient education about medi cation --- I educated patient on medication(s) and diagnosis. I reviewed the risks, benefits and side effects of patient's medications Last Documented On 11:01AM ; [facility] Discussed calming techniques such as breathing exercises and other relaxation techniques Last Documented On 11:01AM ; [facility] Discussed good sleep hygiene habits Last Documented On 11:48AM ; [facility] Assessments Includes: Assessments from this encounter Findings - Restless legs syndrome - Last Documented On 05/11/2022 12:54PM ; [facility] - Dementia - Last Documented On 05/11/2022 12:54PM ; [facility] - Bipolar I disorder - Last Documented On 05/11/2022 12:54PM ; [facility] - Depressive disorder - Last Documented On 05/11/2022 12:54PM ; [facility] - Psychophysiological insomnia - Last Documented On 05/11/2022 12:54PM ; [facility] - Generalized anxiety disorder - Last Documented On 05/11/2022 12:54PM ; [facility] - Adult attention deficit hyperactivity disorder - Last Documented On 05/11/2022 12:54PM ; [facility] Instructions Includes: Instructions from this encounter Instructions to patient Lose weight - pt gained 7 lb s since last seen Last Documented On 12:51PM ; [facility] Education and Decision Aids were provided during visit for: Patient education about medi cation --- I educated patient on medication(s) and diagnosis. I reviewed the risks, benefits and side effects of patient's medications Last Documented On 11:01AM ; [facility] Discussed calming techniques such as breathing exercises and other relaxation techniques Last Documented On 11:01AM ; [facility] Discussed good sleep hygiene habits Last Documented On 08/24/202 2 11:48AM ; [facility] Medical Equipment - Implanted Devices Includes: Current Devices No Medical Equipment Recorded Medications Includes: Medications discussed during this encounter and other current Medications Discontinued / Stopped on this date RIANA SINGLETON MD on 08/20/2018 prednisoLONE Sodium Phosphat e 1% Ophthalmic Solution Provider: RIANA SINGLETON MD Diagnosis: Last Documented On 2 11:09AM By WISAM CASH ; [facility] New / Renewed during this visit EILEEN VINCENT MD on 04/05/2022 rOPINIRole HCl 2 MG Oral Tablet Provider: EILEEN VINCENT MD 30 day supply: 30 tablet, 5 refills Diagnosis: Restless legs syndrome as directed - 1 tab at 5 pm for restless legs [facility] [address] - Last Documented On 3 10:37AM By Radha Vincent MD ; [facility] Current Medications (continue as prescribed) Mydayis 37.5 MG Oral Capsule Extended Release 24 Hour 12/07/2022 Provider: EILEEN VINCENT MD Diagnosis: Attention-defici t hyperactivity disorder, combined type 1 Capsule every morning Last Documented On 12/07/2022 4:33PM By Radha Vincent MD ; [facility] hydrOXYzine HCl 25 MG Oral Tablet 10/17/2022 Provide r: EILEEN VINCENT MD Diagnosis: 1 tab a day as needed only for itching/anxiety Last Documented On 10/17/2022 7:11PM By Radha Vincent MD ; [facility] Belsomra 10 MG Oral Tablet 09/27/2022 Provider: EILEEN VINCENT MD Diagnosis: Psychophysiologi c insomnia DIRECTED - ONE (1) TAB AT BEDTIME NEEDED FOR SLEEP Last Documented On 3 11:26AM By Radha Vincent MD ; [facility] Escitalopram Oxalate 20 MG Oral Tablet 09/25/2022 Provider: EILEEN VINCENT MD Diagnosis: Generalized anxi ety disorder TAKE ONE TABLET BY MOUTH DAILY Last Documented On 3 10:40AM By Radha Vincent MD ; [facility] lamoTRIgine 150 MG Oral Tablet 09/25/2022 Provider: EILEEN VINCENT MD Diagnosis: TAKE ONE TABLET BY MOUTH TWO TIMES A DAY Last Documented On 3 10:40AM By Radha Vincent MD ; [facility] rOPINIRole HCl 2 MG Oral Tablet 09/25/2022 Provider: EILEEN VINCENT MD Diagnosis: Restless legs sy ndrome DIRECTED - ONE (1) TAB AT FIVE (5) IN THE EVENING FOR RESTLESS LEGS Last Documented On 3 10:37AM By Radha Vincent MD ; [facility] buPROPion HCl ER (XL) 300 MG Oral Tablet Extended Release 24 Hour 07/03/2022 Provider: EILEEN VINCENT MD Diagnosis: Major depressive disorder, single episode, unspecified 1 tablet every morning Last Documented On 07/03/2022 1:56PM By Radha Vincent MD ; [facility] Alendronate Sodium 70 MG Oral Tablet 06/19/2022 Prov ider: WOLF MITCHELL MD Diagnosis: 1 tab weekly Last Documented On 2 11:54AM By WISAM CASH ; [facility] traZODone HCl 50 MG Oral Tablet 02/07/2022 Provider: EILEEN VINCENT MD Diagnosis: TAKE ONE (1) OR TWO (2) TABL ETS BY MOUTH AT BEDTIME NEEDED SLEEP Last Documented On 2 10:04AM By Radha Vincent MD ; [facility] Levothyroxine Sodium 100 MCG Oral Capsule 04/14/2020 Provider: GOLDIE KIDD MD Diagnosis: 1 tab daily Last Documented On 0 11:36AM By WISAM CASH ; [facility] Pantoprazole Sodium 40 MG Or al Tablet Delayed Release 11/15/2019 Provider: SIERRA MCGARRY Diagnosis: 1 tab daily Last Documented On 0 11:20AM By WISAM CASH ; [facility] Azelastine HCl 0.15% Nasal Solution 08/21/2019 Provi itz: GOLDIE KIDD MD Diagnosis: 2 sprays in each nostril twice a day Last Documented On 0 11:35AM By WISAM CASH ; [facility] Ferrous Sulfate 325 (65 Fe) MG Oral Tablet 04/10/2019 Provider: GOLDIE KIDD MD Diagnosis: 1 tab daily Last Documented On 04/10/2019 1:36PM By WISAM CASH ; [facility] Fluticasone Propionate 50MCG /ACT Nasal Suspension 07/25/2018 Provider: EMMETT CARRIZALES MD Diagnosis: 2 sprays in each nostril daily Last Documented On 11/28/2018 3:50PM By WISAM CASH ; [facility] Amlodipine Besy-Benazepril H Cl 5-10 MG Capsule, conventional 03/04/2016 Provider: EMMETT CARRIZALES MD Diagnosis: 1 daily Last Documented On 6 9:55AM By WILMER REDDY LPN ; [facility] Lipitor 20 MG Tablet 11/10/2015 Provider: JEFFERSON CARRIZALES MD Diagnosis: 1 tablet every evening Last Documented On 6 10:25AM By WILMER REDDY LPN ; [facility] Dicyclomine HCl 10 MG Capsule, conventional 11/10/2015 Provider: EMMETT CARRIZALES MD Diagnosis: 1 capsule daily Last Documented On 6 10:22AM By WILMER REDDY LPN ; [facility] Aspirin 81 MG Tablet 11/10/2015 Provider: JFEFERSON CARRIZALES MD Diagnosis: 1 tablet daily Last Documented On 6 10:23AM By WILMER REDDY LPN ; [facility] Lasix 20 MG Tablet 11/10/2015 Provider: EMMETT CARRIZALES MD Diagnosis: 1 tablet every morning Last Documented On 6 10:24AM By WILMER REDDY LPN ; [facility] Suspended Medications Trintellix 10 MG Oral Tablet 11/16/2022 Provider: EILEEN VINCENT MD Diagnosis: Major depressive disorder, single episode, unspecified TAKE ONE (1) TABLET BY MOUTH DAILY Last Documented On 3 12:52PM By Radha Vincent MD ; [facility] Namzaric 28-10 MG Oral Capsule Extended Release 24 Hour 10/17/2022 Provider: EILEEN VINCENT MD Diagnosis: Dem in oth dis c lassd elswhr,unsp sev,w/o beh/psych/mood/anx TAKE ONE CAPSULE BY MOUTH EV HELLEN MORNING Last Documented On 3 11:37AM By Radha Vincent MD ; [facility] busPIRone HCl 15 MG Oral Tablet 08/29/2022 Provider: EILEEN VINCENT MD Diagnosis: TAKE ONE TABLET BY MOUTH THREE TIMES a DAY Last Documented On 08/29/2022 3:43PM By Radha Vincent MD ; [facility] Past Medications on file hydrOXYzine HCl 25 MG Oral Tablet 10/08/2020 - 11/07/2020 Provider: EILEEN VINCENT MD Diagnosis: Generalized anxi ety disorder as directed - 1 tab a day as needed for agitation/anxiety Last Documented On 10/08/2020 2:47PM By Radha Vincent MD ; [facility] LaMICtal 150MG Oral Tablet 09/24/2018 - 09/27/2018 Provider: EILEEN VINCENT MD Diagnosis: Bipolar disorder , unspecified One tablet twice a day Last Documented On 09/24/2018 1:31PM By Radha Vincent MD ; [facility] Atorvastatin Calcium 20 MG OR TABS 01/28/2013 - 2012 Provider: Diagnosis: Last Documented On 3 3:46PM By TERRI CASH ; [facility] Medications Administered Includes: Administered Medications from [...] Last Documented: On 04/05/2022 11:51A M ; [facility] Results Includes: Results discussed during this [...] 08/21/2019 Last Documented On 2 11:01AM ; [facility] She was born in [place], [place]. She was raised in [place], [place] and [place], [place]. She was close to her parents while growing up and they were supportive of her. 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 due to memory problems 11/08/2012 Last Documented On 11:01AM ; [facility] Not using alcohol 08/02/2012 Last Documented On 11:01AM ; [facility] Not using drugs (Illicit) 08/02/2012 Last Documented On 11:01AM ; [facility] Smoking status : Never smoked 08/02/2012 Last Documented On 11:01AM ; [facility] Procedures and Surgical History Includes: Procedures from this encounter Procedures Code Diagnosis Performing Provider Service L ocation Service Date education and instructions Last Documented On 11:01AM ; [facility] Pt to call 911 and /or go to the nearest emergency room or call me if suicidal/homicidal ideation or other serious concerns arise. ~ I gave instructions to call me should there be any questions or concerns. ~ The patient verbalized understanding and agreed to treatment plan Last Documented On 12:52PM ; [facility] dangerousness assessment: suicide risk - not jared cidal 3085F Last Documented On 12:00PM ; [facility] use of tobacco assessment performed 1000F Last Documented On 11:01AM ; [facility] patient screened for future fall risk - 13 3288F Last Documented On 11:48AM ; [facility] review of medications documented 1160F Last Documented On 11:01AM ; [facility] screening for adult depressi on: impression and score - please see above treatment and PHQ score Last Documented On 11:01AM ; [facility] standardized depression screening: posit kofi for symptoms Last Documented On 11:01AM ; [facility] encouragement to exercise Last Documented On 2 11:48AM ; [facility] Clinical summary provided to patient Last Documented On 2 11:48AM ; [facility] PHQ-9: total score 6 Last Documented On 2 12:50PM ; [facility] Surgical History Last Updated 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 04/201811/28/2018 Last Documented On 2 11:01AM ; [facility] History of hallux valgus (bunion) correc tion -- 08/01/17 09/07/2017 Last Documented On 2 11:01AM ; [facility] History of excision left foot bunion-- 2 012 01/28/2015 Last Documented On 2 11:01AM ; [facility] History of tubal ligation 01/28/2015 Last Documented On 2 11:01AM ; [facility] History of hysterectomy 01/28/2015 Last Documented On 2 11:01AM ; [facility] History of cholecystectomy 08/02/2012 Last Documented On 2 11:01AM ; [facility] Medical History Includes: Medical History addressed during this encounter Description Last Updated History of obstructive sleep apnea -- sleep study done 05/22/13 at [facility] under Dr. Cutler. She was wearing a dental device purchased from [facility] [employer]. Patient does not wear her dental device. She uses O2 at 2 liters 10/17/2022 Last Documented On 2 11:01AM ; [facility] History of bronchitis - give n Zpak 250 mg and Albuterol HFA 90 mcg inhaler on 02/23/22 and given Methylprednisolone Dosepak 4 mg on 02/18/22 04/05/2022 Last Documented On 2 12:54PM ; [facility] History of fall risk -- pt [...] 04/05/2022 Last Documented On 2 12:54PM ; [facility] History of hammer toe - 2nd toe of left foot straightened by Dr. Hiro Arthur 11/05/20 -- given Keflex 500 mg 04/05/2022 Last Documented On 2 12:54PM ; [facility] Primary Care Provider: Dr. Emmett Carrizales ~Dr. Sierra Mcgarry -- Hair Spring Winder ~Dr. Hiro Arthur, DPM -- Rn Child ~Dr. Mitchell -- Ground Systems Engineer ~Dr. Keanu Mitchell, NICKY -- Dentist 04/05/2022 Last Documented On 2 12:54PM ; [facility] History of coronavirus 2019- nCoV vaccine - Pfizer #1 11/02/20 #2 03/23/21 -- as of 07/29/21 no booster yet 07/29/2021 Last Documented On 2 11:01AM ; [facility] History of vaginal candidiasis - given F lagyl 500 mg 11/06/20 12/20/2020 Last Documented On 2 11:01AM ; [facility] History of colonoscopy - 11/202012/21/19 21 Last Documented On 2 11:01AM ; [facility] History of hearing loss - wears bilatera l hearing aids 04/10/2019 Last Documented On 2 11:01AM ; [facility] History of iron deficiency - started on Ferrous Sulfate 325 mg [address] Goldie Kidd in 01/201904/10/2019 Last Documented On 2 11:01AM ; [facility] History of head injury /brain trauma Last Documented On 2 11:01AM ; [facility] History of sprain of the left foot 01/03 Last Documented On 2 11:01AM ; [facility] History of tinea pedis 08/01/2016 Last Documented On 2 11:01AM ; [facility] History of Epidural Steroid Injection -- 03/08/[address] Yi for back pain 03/13/2016 Last Documented On 2 11:01AM ; [facility] History of irritable bowel syndrome 01/13 Last Documented On 2 11:01AM ; [facility] History of esophageal reflux 08/02/2012 Last Documented On 2 11:01AM ; [facility] History of hypothyroidism 08/02/2012 Last Documented On 2 11:01AM ; [facility] History of hyperlipidemia 08/02/2012 Last Documented On 2 11:01AM ; [facility] History of hypertension 08/02/2012 Last Documented On 2 11:01AM ; [facility] Family History Includes: Family History addressed during this encounter Description Last Updated Paternal history of depression -- father 10/15/2014 Last Documented On 2 11:01AM ; [facility] Maternal history of depression -- mother 10/15/2014 Last Documented On 2 11:01AM ; [facility] Sororal history of depression -- sister 10/15/2014 Last Documented On 2 11:01AM ; [facility] Maternal history of anxiety disorder NOS -- mother 10/15/2014 Last Documented On 2 11:01AM ; [facility] Paternal history of anxiety disorder NOS -- father 10/15/2014 Last Documented On 2 11:01AM ; [facility] Review of Systems Includes: Review of [...] Oriented correctly to town [facility] Oriented correctly to floor Normal recent memory [...] esolved Last Documented On 9 1:33PM ; [facility] Sulfa Antibiotics Allergy 08/02/2012 A ctive Last Documented On 4 11:08AM ; [facility] Note: Imported from external source. Neupro Allergy rash 10/23/2013 Active Last Documented On 4 11:08AM ; [facility] Note: Imported from external source. Encounters Encounter Provider Location Date Check-In Time Check-Out Time Diagnosis [employer] EILEEN VINCENT MD [facility] 04/05/20 22 11:00AM 11:59PM Generalized Anxiety Disorder,Dementia ,Psychophysiologi maday Insomnia,Bipolar I Disorder,Adult Attention Deficit Hyperactivity Disorder,Depressi ve Disorder, Nos,Restless Legs Syndrome Insurance Includes: Active Insurance Policies Plan Name Member ID Group # Subscriber Relationship Effect kofi Dates 1 - [facility] [id number] EDITH DARBY Self 2 - [facility] [id number] INGRID DARBY 0 - Unknown Clinical Notes Includes: Clinical Notes from this encounter No Clinical Notes Recorded
--- OUTSIDE RECORDS SUMMARY | 2024-09-04 14:24 | XMS_ITS ---
Author Organization [facility] Address [address] [place] [address] Phone Care Team Providers Care Civil Transportation Engineer Name Role Phone RHIANNON DAI, EILEEN JJ Unavailable [phone] Problems Includes: Active, inactive, and resolved Problems All Visits Onset Date Resolved Date Provider Condition S tatus Depressive Disorder, Nos 04/13/2018 Active Last Documented On 3 5:51PM ; [facility] Adult Attention Deficit Hyperactivity Disorder 01/16/2017 Active Last Documented On 3 5:50PM ; [facility] Psychophysiological Insomnia 09/27/2016 Active Last Documented On 3 5:50PM ; [facility] Bipolar I Disorder 03/13/2015 Active Last Documented On 3 5:48PM ; [facility] Dementia 02/10/2015 Active Last Documented On 3 5:48PM ; [facility] Generalized Anxiety Disorder 02/10/2015 Active Last Documented On 3 5:48PM ; [facility] Mild Cognitive Impairment 02/10/2015 EILEEN VINCENT MD Active Last Documented On 3 5:01PM ; [facility] Persistent Insomnia 11/11/2013 Inact kofi Last Documented On 3 5:47PM ; [facility] Restless Legs Syndrome 07/28/2013 Ac tive Last Documented On 3 5:48PM ; [facility] Restless Legs Syndrome 07/28/2013 In active Last Documented On 3 5:46PM ; [facility] Nonorganic Sleep Apnea Obstructive 04/14/2013 Inactive Last Documented On 3 5:46PM ; [facility] 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 EILEEN DE LA VEGA MD Active Last Documented On 3 5:01PM ; [facility] Bipolar I Disorder, Most Recent Episode, Depressed 013 Inactive Last Documented On 3 5:44PM ; [facility] PRESENILE DEMENTIA 08/07/2012 Inacti ve Last Documented On 3 5:42PM ; [facility] Note: Probable dementia Hypothyroidism, unspecified 08/02/2012 Active Last Documented On 3 5:48PM ; [facility] Esophageal Reflux 08/02/2012 Inactiv e Last Documented On 3 5:42PM ; [facility] Gastro-esophageal reflux disease without esophagitis 08/02 Active Last Documented On 3 5:48PM ; [facility] Fracture of Nasal Bones 08/02/2012 A ctive Last Documented On 3 5:42PM ; [facility] GENERALIZED ANXIETY DIS 08/02/2012 I nactive Last Documented On 3 5:42PM ; [facility] Hyperlipidemia 08/02/2012 Inactive Last Documented On 3 5:42PM ; [facility] Hyperlipidemia, unspecified 08/02/2012 Active Last Documented On 3 5:48PM ; [facility] Essential (primary) hypertension 08/02/2012 Active Last Documented On 3 5:48PM ; [facility] Hypertension Systemic 08/02/2012 [place] ctive Last Documented On 3 5:42PM ; [facility] Hypothyroidism 08/02/2012 Inactive Last Documented On 3 5:42PM ; [facility] Irritable Bowel Syndrome 08/02/2012 Inactive Last Documented On 3 5:42PM ; [facility] Irritable bowel syndrome without diarrhea 08/02/2012 Active Last Documented On 3 5:48PM ; [facility] Reported Trauma To Head 08/02/2012 I nactive Last Documented On 3 5:42PM ; [facility] Plan of Treatment Future Appointments Date Time Location [facility] ADULT PSYCH ESTABLISHED 12/24/2024 11:00AM [facility] VINCENT MD Last Documented On 5 4:04PM ; [facility] Education and Decision Aids were provided during visit for: Patient counseling I discuss ed risk, benefits, and side effects of sleep aid - Belsomra - including the possibility of sleep related behaviors i.e. sleepwalking, sleeptalking, sleepdriving, etc... Pt verbalized understanding Last Documented On 4 11:46AM ; [facility] I recommended cognitive exer cises such as reading and/or word search puzzles, etc.. Last Documented On 4 11:46AM ; [facility] Calming techniques such as b reathing exercises/meditation and other relaxation techniques Last Documented On 4 4:34AM ; [facility] Patient counseling I discus sed risk, benefits, and side effects of sleep aid - Belsomra - including the possibility of sleep related behaviors i.e. sleepwalking, sleeptalking, sleepdriving, etc... Pt verbalized understanding Last Documented On 4 11:43AM ; [facility] I recommended cognitive exer cises such as reading and/or word search puzzles, etc.. Last Documented On 4 11:41AM ; [facility] Calming techniques such as b reathing exercises/meditation and other relaxation techniques Last Documented On 4 3:40AM ; [facility] Patient counseling I discuss ed risk, benefits, and side effects of sleep aid - Belsomra - including the possibility of sleep related behaviors i.e. sleepwalking, sleeptalking, sleepdriving, etc... Pt verbalized understanding Last Documented On 3 10:27AM ; [facility] I recommended cognitive exer cises such as reading and/or word search puzzles, etc.. Last Documented On 3 10:28AM ; [facility] Patient counseling I discuss ed risk, benefits, and side effects of sleep aid - Belsomra - including the possibility of sleep related behaviors i.e. sleepwalking, sleeptalking, sleepdriving, etc... Pt verbalized understanding Last Documented On 3 10:45AM ; [facility] Discussed good sleep hygiene habits Last Documented On 3 7:14AM ; [facility] I recommended cognitive exer cises such as reading and/or word search puzzles, etc.. Last Documented On 3 7:14AM ; [facility] Patient counseling I discuss ed risk, benefits, and side effects of sleep aid Belsomra - including the possibility of sleep related behaviors i.e. sleepwalking, sleeptalking, sleepdriving, etc... Pt verbalized understanding Last Documented On 3 5:09PM ; [facility] Discussed good sleep hygiene habits Last Documented On 3 5:08PM ; [facility] I recommended cognitive exer cises such as reading and/or word search puzzles, etc.. Last Documented On 3 1:47AM ; [facility] Assessments Includes: Assessments for all patient encounters Findings Encounter Date Adult attention deficit hype ractivity disorder TELEHE[facility] ADULT PSYCH ESTABLISHED with EILEEN VINCENT MD 12/19/2023 Last Documented On 4 4:37AM ; [facility] Bipolar I disorder TELEHEALTH ADULT PSY CH ESTABLISHED with EILEEN VINCENT MD 12/19/2023 Last Documented On 4 4:37AM ; [facility] Dementia TELEHEALTH ADULT PSYCH ESTABLISH ED with EILEEN VINCENT MD 12/19/2023 Last Documented On 4 4:37AM ; [facility] Depressive disorder TELEHEALTH ADULT PSY CH ESTABLISHED with EILEEN VINCENT MD 12/19/2023 Last Documented On 4 4:37AM ; [facility] Generalized anxiety disorder TELEHEALTH ADULT PSYCH ESTABLISHED with EILEEN VINCENT MD 12/19/2023 Last Documented On 4 4:37AM ; [facility] Mild Cognitive Impairment [facility] ESTABLISHED with EIELEN VINCENT MD 12/19/2023 Last Documented On 4 4:37AM ; [facility] Nonorganic sleep apnea TELEHEALTH ADULT PSYCH ESTABLISHED with EILEEN VINCENT MD 12/19/2023 Last Documented On 4 4:37AM ; [facility] Psychophysiological insomnia TELEHEALTH ADULT PSYCH ESTABLISHED with EILEEN VINCENT MD 12/19/2023 Last Documented On 4 4:37AM ; [facility] Restless legs syndrome TELEHEALTH ADULT PSYCH ESTABLISHED with EILEEN VINCENT MD 12/19/2023 Last Documented On 4 4:37AM ; [facility] Dementia * PHONE CALL with EILEEN HAAS MD 12/12/2023 Last Documented On 4 5:57PM ; [facility] Adult attention deficit hype ractivity disorder * PHONE CALL with EILEEN VINCENT MD 10/31/2023 Last Documented On 4 11:49AM ; [facility] Adult attention deficit hype ractivity disorder TELEHEALTH ADULT PSYCH ESTABLISHED with EILEEN VINCENT MD 09/14/2023 Last Documented On 4 3:43AM ; [facility] Bipolar I disorder TELEHEALTH ADULT PSY CH ESTABLISHED with EILEEN VINCENT MD 09/14/2023 Last Documented On 4 3:43AM ; [facility] Dementia TELEHEALTH ADULT PSYCH ESTABLISH ED with EILEEN VINCENT MD 09/14/2023 Last Documented On 4 3:43AM ; [facility] Depressive disorder TELEHEALTH ADULT PSY CH ESTABLISHED with EILEEN VINCENT MD 09/14/2023 Last Documented On 4 3:43AM ; [facility] Generalized anxiety disorder TELEHEALTH ADULT PSYCH ESTABLISHED with EILEEN VINCENT MD 09/14/2023 Last Documented On 4 3:43AM ; [facility] Mild Cognitive Impairment [facility] PS[facility] ESTABLISHED with EILEEN VINCENT MD 09/14/2023 Last Documented On 4 3:43AM ; [facility] Nonorganic sleep apnea TELEHEALTH ADULT PSYCH ESTABLISHED with EILENE VINCENT MD 09/14/2023 Last Documented On 4 3:43AM ; [facility] Psychophysiological insomnia TELEHEALTH ADULT PSYCH ESTABLISHED with EILEEN VINCENT MD 09/14/2023 Last Documented On 4 3:43AM ; [facility] Restless legs syndrome TELEHEALTH ADULT PSYCH ESTABLISHED with EILEEN VINCENT MD 09/14/2023 Last Documented On 4 3:43AM ; [facility] Adult attention deficit hype ractivity disorder TELEHEALTH ADULT PSYCH ESTABLISHED with EILEEN VINCENT MD 06/29/2023 Last Documented On 3 5:08PM ; [facility] Bipolar I disorder TELEHEALTH ADULT PSY CH ESTABLISHED with EILEEN VINCENT MD 06/29/2023 Last Documented On 3 5:08PM ; [facility] Dementia TELEHEALTH ADULT PSYCH ESTABLISH ED with EILEEN VINCENT MD 06/29/2023 Last Documented On 3 5:08PM ; [facility] Depressive disorder TELEHEALTH ADULT PSY CH ESTABLISHED with EILEEN VINCENT MD 06/29/2023 Last Documented On 3 5:08PM ; [facility] Generalized anxiety disorder TELEHEALTH ADULT PSYCH ESTABLISHED with EILEEN VINCENT MD 06/29/2023 Last Documented On 3 5:08PM ; [facility] Mild Cognitive Impairment [facility] PS[facility] ESTABLISHED with EILEEN VINCENT MD 06/29/2023 Last Documented On 3 5:08PM ; [facility] Nonorganic sleep apnea TELEHEALTH ADULT PSYCH ESTABLISHED with EILEEN VINCENT MD 06/29/2023 Last Documented On 3 5:08PM ; [facility] Psychophysiological insomnia TELEHEALTH ADULT PSYCH ESTABLISHED with EILEEN VINCENT MD 06/29/2023 Last Documented On 3 5:08PM ; [facility] Restless legs syndrome TELEHEALTH ADULT PSYCH ESTABLISHED with EILEEN VINCENT MD 06/29/2023 Last Documented On 3 5:08PM ; [facility] Adult attention deficit hype ractivity disorder TELEHEALTH ADULT PSYCH ESTABLISHED with EILEEN VINCENT MD 04/18/2023 Last Documented On 3 7:22AM ; [facility] Bipolar I disorder TELEHEALTH ADULT PSY CH ESTABLISHED with EILEEN VINCENT MD 04/18/2023 Last Documented On 3 7:22AM ; [facility] Dementia TELEHEALTH ADULT PSYCH ESTABLISH ED with EILEEN VINCENT MD 04/18/2023 Last Documented On 3 7:22AM ; [facility] Depressive disorder TELEHEALTH ADULT PSY CH ESTABLISHED with EILEEN VINCENT MD 04/18/2023 Last Documented On 3 7:22AM ; [facility] Generalized anxiety disorder TELEHEALTH ADULT PSYCH ESTABLISHED with EILEEN VINCENT MD 04/18/2023 Last Documented On 3 7:22AM ; [facility] Mild Cognitive Impairment [facility] PS[facility] ESTABLISHED with EILEEN VINCENT MD 04/18/2023 Last Documented On 3 7:22AM ; [facility] Nonorganic sleep apnea TELEHEALTH ADULT PSYCH ESTABLISHED with EILEEN VINCENT MD 04/18/2023 Last Documented On 3 7:22AM ; [facility] Psychophysiological insomnia TELEHEALTH ADULT PSYCH ESTABLISHED with EILEEN VINCENT MD 04/18/2023 Last Documented On 3 7:22AM ; [facility] Restless legs syndrome TELEHEALTH ADULT PSYCH ESTABLISHED with EILEEN VINCENT MD 04/18/2023 Last Documented On 3 7:22AM ; [facility] Adult attention deficit hype ractivity disorder TELEHEALTH ADULT PSYCH ESTABLISHED with EILEEN VINCENT MD 02/23/2023 Last Documented On 3 1:50AM ; [facility] Bipolar I disorder TELEHEALTH ADULT PSY CH ESTABLISHED with EILEEN VINCENT MD 02/23/2023 Last Documented On 3 1:50AM ; [facility] Dementia TELEHEALTH ADULT PSYCH ESTABLISH ED with EILEEN VINCENT MD 02/23/2023 Last Documented On 3 1:50AM ; [facility] Depressive disorder TELEHEALTH ADULT PSY CH ESTABLISHED with EILEEN VINCENT MD 02/23/2023 Last Documented On 3 1:50AM ; [facility] Generalized anxiety disorder TELEHEALTH ADULT PSYCH ESTABLISHED with EILEEN VINCENT MD 02/23/2023 Last Documented On 3 1:50AM ; [facility] Mild Cognitive Impairment [facility] PS[facility] ESTABLISHED with EILEEN VINCENT MD 02/23/2023 Last Documented On 3 1:50AM ; [facility] Nonorganic sleep apnea TELEHEALTH ADULT PSYCH ESTABLISHED with EILEEN VINCENT MD 02/23/2023 Last Documented On 3 1:50AM ; [facility] Psychophysiological insomnia TELEHEALTH ADULT PSYCH ESTABLISHED with EILEEN VINCENT MD 02/23/2023 Last Documented On 3 1:50AM ; [facility] Restless legs syndrome TELEHEALTH ADULT PSYCH ESTABLISHED with EILEEN VINCENT MD 02/23/2023 Last Documented On 3 1:50AM ; [facility] Instructions Includes: Instructions for all patient encounters Education and Decision Aids were provided during visit for: Patient counseling I discuss ed risk, benefits, and side effects of sleep aid - Belsomra - including the possibility of sleep related behaviors i.e. sleepwalking, sleeptalking, sleepdriving, etc... Pt verbalized understanding Last Documented On 4 11:46AM ; [facility] I recommended cognitive exer cises such as reading and/or word search puzzles, etc.. Last Documented On 4 11:46AM ; [facility] Calming techniques such as b reathing exercises/meditation and other relaxation techniques Last Documented On 4 4:34AM ; [facility] Patient counseling I discuss ed risk, benefits, and side effects of sleep aid - Belsomra - including the possibility of sleep related behaviors i.e. sleepwalking, sleeptalking, sleepdriving, etc... Pt verbalized understanding Last Documented On 4 11:43AM ; [facility] I recommended cognitive exer cises such as reading and/or word search puzzles, etc.. Last Documented On 4 11:41AM ; [facility] Calming techniques such as b reathing exercises/meditation and other relaxation techniques Last Documented On 4 3:40AM ; [facility] Patient counseling I discuss ed risk, benefits, and side effects of sleep aid - Belsomra - including the possibility of sleep related behaviors i.e. sleepwalking, sleeptalking, sleepdriving, etc... Pt verbalized understanding Last Documented On 3 10:27AM ; [facility] I recommended cognitive exer cises such as reading and/or word search puzzles, etc.. Last Documented On 3 10:28AM ; [facility] Patient counseling I discuss ed risk, benefits, and side effects of sleep aid - Belsomra - including the possibility of sleep related behaviors i.e. sleepwalking, sleeptalking, sleepdriving, etc... Pt verbalized understanding Last Documented On 3 10:45AM ; [facility] Discussed good sleep hygiene habits Last Documented On 3 7:14AM ; [facility] I recommended cognitive exer cises such as reading and/or word search puzzles, etc.. Last Documented On 3 7:14AM ; [facility] Patient counseling I discuss ed risk, benefits, and side effects of sleep aid Belsomra - including the possibility of sleep related behaviors i.e. sleepwalking, sleeptalking, sleepdriving, etc... Pt verbalized understanding Last Documented On 3 5:09PM ; [facility] Discussed good sleep hygiene habits Last Documented On 3 5:08PM ; [facility] I recommended cognitive exer cises such as reading and/or word search puzzles, etc.. Last Documented On 3 1:47AM ; [facility] Medical Equipment - Implanted Devices Includes: Current and historical Devices No Medical Equipment Recorded Medications Includes: Current and historical Medications Current Medications (continue as prescribed) busPIRone HCl 15 MG Oral Tablet 01/16/2024 Provider: EILEEN VINCENT MD Diagnosis: TAKE ONE TABLET BY MOUTH THREE TIMES a DAY Last Documented On 01/16/2024 10:52AM By Radha Vincent MD ; [facility] Mydayis 37.5 MG Oral [...] 12/19/2023 11:49AM By Radha Vincent MD ; [facility] Memantine HCl 5 MG Oral Tablet 12/12/2023 Provider: EILEEN VINCENT MD Diagnosis: Dem in oth dis c lassd elswhr,unsp sev,w/o beh/psych/mood/anx One tablet daily Last Documented On 12/12/2023 4:50PM By Radha Vincent MD ; [facility] rOPINIRole HCl 2 MG Oral Tablet 12/10/2023 Provider: VENTURA GERARDO Diagnosis: Last Documented On 12/19/2023 11:45AM By Radha Vincent MD ; [facility] Namzaric 28-10 MG Oral Capsule Extended Release 24 Hour 11/26/2023 Provider: EILEEN VINCENT MD Diagnosis: Dem in oth dis c lassd elswhr,unsp sev,w/o beh/psych/mood/anx TAKE ONE CAPSULE BY MOUTH EV HELLEN MORNING Last Documented On 11/26/2023 1:10PM By Radha Vincent MD ; [facility] Trintellix 10 MG Oral Tablet 11/13/2023 Provider: EILEEN VINCENT MD Diagnosis: Major depressive disorder, single episode, unspecified TAKE ONE (1) TABLET BY MOUTH DAILY Last Documented On 11/13/2023 10:08AM By Radha Vincent MD ; [facility] Belsomra 10 MG Oral Tablet 11/01/2023 Provider: EILEEN VINCENT MD Diagnosis: Psychophysiologi c insomnia DIRECTED 1 TABLET AT BEDT ELEAZAR NEEDED FOR SLEEP Last Documented On 11/01/2023 4:16PM By Radha Vincent MD ; [facility] buPROPion HCl ER (XL) 300 MG Oral Tablet Extended Release 24 Hour 08/24/2023 Provider: EILEEN VINCENT MD Diagnosis: Major depressive disorder, single episode, unspecified 1 tablet every morning Last Documented On 08/24/2023 10:15AM By Radha Vincent MD ; [facility] lamoTRIgine 150 MG Oral Tablet 08/24/2023 Provider: EILEEN VINCENT MD Diagnosis: TAKE ONE TABLET BY MOUTH TWO TIMES A DAY Last Documented On 08/24/2023 10:26AM By Radha Vincent MD ; [facility] Escitalopram Oxalate 20 MG Oral Tablet 08/24/2023 Provider: EILEEN VINCENT MD Diagnosis: Generalized anxi ety disorder TAKE ONE TABLET BY MOUTH DAILY Last Documented On 08/24/2023 10:16AM By Radha Vincent MD ; [facility] Ferrous Sulfate 325 (65 Fe) MG Oral Tablet 04/18/2023 Provider: Diagnosis: 1 tab every other day Last Documented On 04/18/2023 10:30AM By WISAM CASH ; [facility] Belsomra 10 MG Oral Tablet 03/19/2023 Provider: Diagnosis: Psychophysiologi c insomnia 1 tablet at bedtime as needed for sleep Last Documented On 03/19/2023 2:13PM By LETI WILSON ; [facility] Belsomra 10 MG OR TABS 09/27/2022 Provider: CISCO VINCENT MD Diagnosis: Psychophysiologi c insomnia DIRECTED - ONE (1) TAB AT BEDTIME NEEDED FOR SLEEP Last Documented On 12/09/2022 5:29PM By Radha Vincent MD ; [facility] Alendronate Sodium 70 MG OR TABS 06/19/2022 Provider : Diagnosis: 1 tab weekly Last Documented On 12/09/2022 5:29PM By WISAM CASH ; [facility] Levothyroxine Sodium 100 MCG OR CAPS 04/14/2020 Prov ider: Diagnosis: 1 tab daily Last Documented On 12/09/2022 5:29PM By WISAM CASH ; [facility] Pantoprazole Sodium 40 MG OR TBEC 11/15/2019 Provide r: Diagnosis: 1 tab daily Last Documented On 12/09/2022 5:29PM By WISAM CASH ; [facility] Azelastine HCl 0.15% NA SOLN 08/21/2019 Provider: Diagnosis: 2 sprays in each nostril twice a day Last Documented On 12/09/2022 5:29PM By WISAM CASH ; [facility] Fluticasone Propionate 50 MCG/ACT NA SUSP 07/25/2018 Provider: Diagnosis: 2 sprays in each nostril daily Last Documented On 12/09/2022 5:29PM By WISAM CASH ; [facility] amLODIPine Besy-Benazepril HCl 5-10 MG OR CAPS 016 Provider: Diagnosis: 1 daily Last Documented On 12/09/2022 5:29PM By WILMER REDDY LPN ; [facility] Lipitor 20 MG OR TABS 11/10/2015 Provider: Diagnosis: 1 tablet every evening Last Documented On 12/09/2022 5:29PM By WILMER REDDY LPN ; [facility] Lasix 20 MG OR TABS 11/10/2015 Provider: Diagnosis: 1 tablet every morning Last Documented On 12/09/2022 5:29PM By WILMER REDDY LPN ; [facility] Aspirin 81 MG OR TABS 11/10/2015 Provider: Diagnosis: 1 tablet daily Last Documented On 12/09/2022 5:29PM By WILMER REDDY LPN ; [facility] Past Medications on file Mydayis 37.5 MG Oral Capsule Extended Release 24 Hour 11/27/2023 - 01/01/2024 Provider: EILEEN VINCENT MD Diagnosis: Attention-defici t hyperactivity disorder, combined type TAKE ONE (1) CAPSULE BY MOUTH EACH MORNING Last Documented On 01/01/2024 5:48PM By Radha Vincent MD ; [facility] Mydayis 37.5 MG Oral Capsule Extended Release 24 Hour 10/31/2023 - 11/27/2023 Provider: EILEEN VINCENT MD Diagnosis: Attention-defici t hyperactivity disorder, combined type TAKE ONE (1) CAPSULE BY MOUTH EACH MORNING Last Documented On 11/27/2023 5:06PM By Radha Vincent MD ; [facility] Focalin 10 MG Oral Tablet 10/18/2023 - 12/19/2023 Provider: EILEEN VINCENT MD Diagnosis: Attention-defici t hyperactivity disorder, combined type 1 tablet every morning Last Documented On 12/19/2023 11:48AM By Radha Vincent MD ; [facility] Mydayis 37.5 MG Oral Capsule Extended Release 24 Hour 09/26/2023 - 10/31/2023 Provider: EILEEN VINCENT MD Diagnosis: Attention-defici t hyperactivity disorder, combined type TAKE ONE (1) CAPSULE BY MOUTH EACH MORNING Last Documented On 10/31/2023 11:48AM By Radha Vincent MD ; [facility] Dicyclomine HCl 10 MG Oral Capsule 09/14/2023 - 2023 Provider: Diagnosis: 1 capsule bid Last Documented On 09/14/2023 11:16AM By WISAM CASH ; [facility] Mydayis 37.5 MG Oral Capsule Extended Release 24 Hour 08/23/2023 - 09/26/2023 Provider: EILEEN VINCENT MD Diagnosis: Attention-defici t hyperactivity disorder, combined type TAKE ONE (1) CAPSULE BY MOUTH EACH MORNING Last Documented On 09/26/2023 3:48PM By Radha Vincent MD ; [facility] Mydayis 37.5 MG Oral Capsule Extended Release 24 Hour 07/23/2023 - 08/23/2023 Provider: EILEEN VINCENT MD Diagnosis: Attention-defici t hyperactivity disorder, combined type TAKE ONE (1) CAPSULE BY MOUTH EACH MORNING Last Documented On 08/23/2023 2:27PM By Radha Vincent MD ; [facility] Mydayis 37.5 MG Oral Capsule Extended Release 24 Hour 06/26/2023 - 07/23/2023 Provider: EILEEN VINCENT MD Diagnosis: Attention-defici t hyperactivity disorder, combined type TAKE ONE (1) CAPSULE BY MOUTH EACH MORNING Last Documented On 07/23/2023 4:41PM By Radha Vincent MD ; [facility] Mydayis 37.5 MG Oral Capsule Extended Release 24 Hour 05/15/2023 - 06/26/2023 Provider: EILEEN VINCENT MD Diagnosis: Attention-defici t hyperactivity disorder, combined type TAKE ONE (1) CAPSULE BY MOUTH EACH MORNING Last Documented On 06/26/2023 11:51AM By Radha Vincent MD ; [facility] hydrOXYzine HCl 25 MG Oral Tablet 04/09/2023 - 06/08/2023 Provider: EILEEN CONNORS MD Diagnosis: 1 TAB a DAY NEEDED ONLY FOR ITCHING/ANXIETY Last Documented On 04/09/2023 12:08PM By Radha Vincent MD ; [facility] Mydayis 37.5 MG Oral Capsule Extended Release 24 Hour 04/09/2023 - 05/15/2023 Provider: EILEEN VINCENT MD Diagnosis: Attention-defici t hyperactivity disorder, combined type TAKE ONE (1) CAPSULE BY MOUTH EACH MORNING Last Documented On 05/15/2023 3:14PM By Radha Vincent MD ; [facility] Belsomra 10 MG Oral Tablet 03/20/2023 - 11/01/2023 Provider: EILEEN VINCENT MD Diagnosis: Psychophysiologi c insomnia as directed 1 tablet at bedt eleazar as needed for sleep Last Documented On 11/01/2023 4:05PM By Radha Vincent MD ; [facility] rOPINIRole HCl 2 MG Oral Tablet 03/12/2023 - 12/19/2023 Provider: EILEEN VINCENT MD Diagnosis: Restless legs syndrome as directed 1 tablet at 5 pm in the evening for restless legs Last Documented On 12/19/2023 11:47AM By Radha Vincent MD ; [facility] rOPINIRole HCl 2 MG Oral Tablet 03/12/2023 - Provider: Diagnosis: Restless legs sy ndrome 1 tablet at 5 pm in the evening for restless leg s Last Documented On 03/12/2023 6:11PM By LETI WILSON ; [facility] Mydayis 37.5 MG Oral Capsule Extended Release 24 Hour 02/27/2023 - 04/09/2023 Provider: EILEEN VINCENT MD Diagnosis: Attention-defici t hyperactivity disorder, combined type TAKE ONE (1) CAPSULE BY MOUTH EACH MORNING Last Documented On 04/09/2023 12:09PM By Radha Vincent MD ; [facility] Mydayis 37.5 MG Oral Capsule Extended Release 24 Hour 01/11/2023 - 02/27/2023 Provider: EILEEN VINCENT MD Diagnosis: Attention-defici t hyperactivity disorder, combined type 1 Capsule every morning Last Documented On 02/27/2023 3:23PM By Radha Vincent MD ; [facility] hydrOXYzine HCl 25 MG Oral Tablet 12/20/2022 [...] 01/11/2023 6:42PM By Radha Vincent MD ; [facility] Trintellix 10 MG OR TABS 11/16/2022 - 11/13/2023 Provider: EILEEN VINCENT MD Diagnosis: Major depressive disorder, single episode, unspecified TAKE ONE (1) TABLET BY MOUTH DAILY Last Documented On 11/13/2023 10:08AM By Radha Vincent MD ; [facility] Mydayis 37.5 MG OR CP24 10/27/2022 - 12/07/2022 Provider: EILEEN VINCENT MD Diagnosis: Attention-defici t hyperactivity disorder, combined type 1 Capsule every morning Last Documented On 12/09/2022 5:29PM By Radha Vincent MD ; [facility] hydrOXYzine HCl 25 MG OR TABS 10/17/2022 - 12/20/2022 Provider: EILEEN CONNORS MD Diagnosis: 1 tab a day as needed only for itching/anxiety Last Documented On 12/20/2022 4:05PM By Radha Vincent MD ; [facility] Namzaric 28-10 MG OR CP24 10/17/2022 - 11/26/2023 Provider: EILEEN CONNORS MD Diagnosis: Dem in oth dis c lassd elswhr,unsp sev,w/o beh/psych/mood/anx TAKE ONE CAPSULE BY MOUTH EVERY MORNING Last Documented On 11/26/2023 1:09PM By Radha Vincent MD ; [facility] Mydayis 37.5 MG OR CP24 09/29/2022 - 10/27/2022 Provid er: EILEEN VINCENT MD Diagnosis: 1 Capsule every morning Last Documented On 12/09/2022 5:29PM By Radha Vincent MD ; [facility] Escitalopram Oxalate 20 MG OR TABS 09/25/2022 - 08/24/2023 Provider: EILEEN VINCENT MD Diagnosis: Generalized anxi ety disorder TAKE ONE TABLET BY MOUTH DAILY Last Documented On 08/24/2023 10:16AM By Radha Vincent MD ; [facility] lamoTRIgine 150 MG OR TABS 09/25/2022 - 08/24/2023 Pro vider: EILEEN VINCENT MD Diagnosis: TAKE ONE TABLET BY MOUTH TWO TIMES A DAY Last Documented On 08/24/2023 10:25AM By Radha Vincent MD ; [facility] rOPINIRole HCl 2 MG OR TABS 09/25/2022 - 03/12/2023 Provider: EILEEN VINCENT MD Diagnosis: Restless legs syndrome DIRECTED - ONE (1) TAB AT FIVE (5) IN THE EVENING FOR RESTLESS LEGS Last Documented On 03/12/2023 6:11PM By LETI WILSON ; [facility] Mydayis 37.5 MG OR CP24 08/29/2022 - 09/29/2022 Provid er: EILEEN VINCENT MD Diagnosis: TAKE ONE (1) CAPSULE BY MOUTH EACH MORNING Last Documented On 12/09/2022 5:29PM By Radha Vincent MD ; [facility] busPIRone HCl 15 MG OR TABS 08/29/2022 - 01/16/2024 Pr ovider: EILEEN VINCENT MD Diagnosis: TAKE ONE TABLET BY MOUTH THREE TIMES a DAY Last Documented On 01/16/2024 10:52AM By Radha Vincent MD ; [facility] Mydayis 37.5 MG OR CP24 08/28/2022 - 10/17/2022 Provider: EILEEN VINCENT MD Diagnosis: Attention-defici t hyperactivity disorder, other type TAKE ONE (1) CAPSULE BY MOUT H EACH MORNING Last Documented On 12/09/2022 5:29PM By Radha Vincent MD ; [facility] Belsomra 10 MG OR TABS 07/31/2022 - 09/27/2022 Provider: EILEEN VINCENT MD Diagnosis: Psychophysiologi c insomnia as directed - 1 tab at bedti me as needed for sleep Last Documented On 12/09/2022 5:29PM By Radha Vincent MD ; [facility] Mydayis 37.5 MG OR CP24 07/24/2022 - 08/28/2022 Provider: EILEEN VINCENT MD Diagnosis: Attention-defici t hyperactivity disorder, other type TAKE ONE (1) CAPSULE BY MOUT H EACH MORNING Last Documented On 12/09/2022 5:29PM By Radha Vincent MD ; [facility] Quviviq 50 MG OR TABS 07/17/2022 - 10/17/2022 Provider: EILEEN VINCENT MD Diagnosis: Psychophysiologi c insomnia One tablet at bed time Last Documented On 12/09/2022 5:29PM By Radha Vincent MD ; [facility] Trintellix 10 MG OR TABS 07/17/2022 - 11/16/2022 Provider: EILEEN VINCENT MD Diagnosis: Major depressive disorder, single episode, unspecified One tablet daily Last Documented On 12/09/2022 5:29PM By Radha Vincent MD ; [facility] buPROPion HCl ER (XL) 300 MG OR TB24 07/03/2022 - 08/24/2023 Provider: EILEEN VINCENT MD Diagnosis: Major depressive disorder, single episode, unspecified 1 tablet every morning Last Documented On 08/24/2023 10:15AM By Radha Vincent MD ; [facility] Mydayis 37.5 MG OR CP24 06/26/2022 - 07/24/2022 Provider: EILEEN VINCENT MD Diagnosis: Attention-defici t hyperactivity disorder, other type TAKE ONE (1) CAPSULE BY MOUT H EACH MORNING Last Documented On 12/09/2022 5:29PM By Radha Vincent MD ; [facility] Mydayis 37.5 MG OR CP24 05/26/2022 - 06/26/2022 Provider: EILEEN VINCENT MD Diagnosis: Attention-defici t hyperactivity disorder, other type TAKE ONE (1) CAPSULE BY MOUT H EACH MORNING Last Documented On 12/09/2022 5:29PM By Radha Vincnet MD ; [facility] Mydayis 37.5 MG OR CP24 04/24/2022 - 05/26/2022 Provider: EILEEN VINCENT MD Diagnosis: Attention-defici t hyperactivity disorder, other type TAKE ONE (1) CAPSULE BY MOUT H EACH MORNING Last Documented On 12/09/2022 5:29PM By Radha Vincent MD ; [facility] Quviviq 50 MG OR TABS 04/11/2022 - 07/17/2022 Provider: EILEEN VINCENT MD Diagnosis: Psychophysiologi c insomnia One tablet at bed time Last Documented On 12/09/2022 5:29PM By Radha Vincent MD ; [facility] rOPINIRole HCl 2 MG OR TABS 04/05/2022 - 09/25/2022 Provider: EILEEN VINCENT MD Diagnosis: Restless legs syndrome as directed - 1 tab at 5 pm for restless legs Last Documented On 12/09/2022 5:29PM By Radha Vincent MD ; [facility] Mydayis 37.5 MG OR CP24 03/17/2022 - 04/24/2022 Provider: EILEEN VINCENT MD Diagnosis: Attention-defici t hyperactivity disorder, other type TAKE ONE (1) CAPSULE BY MOUT H EACH MORNING Last Documented On 12/09/2022 5:29PM By Radha Vincent MD ; [facility] rOPINIRole HCl 1 MG OR TABS 02/20/2022 - 05/11/2022 Pr ovider: EILEEN VINCENT MD Diagnosis: as directed - 1 tab in the evening for restless legs Last Documented On 12/09/2022 5:29PM By Radha Vincent MD ; [facility] hydrOXYzine HCl 25 MG OR TABS 02/20/2022 - 10/17/2022 Provider: EILEEN CONNORS MD Diagnosis: TAKE ONE (1) OR TWO (2) TABL ETS BY MOUTH NEEDED FOR AGITATION/ANXIETY Last Documented On 12/09/2022 5:29PM By Radha Vincent MD ; [facility] Mydayis 37.5 MG OR CP24 02/14/2022 - 03/17/2022 Provider: EILEEN VINCENT MD Diagnosis: Attention-defici t hyperactivity disorder, other type TAKE ONE (1) CAPSULE BY MOUT H EACH MORNING Last Documented On 12/09/2022 5:29PM By Radha Vincent MD ; [facility] traZODone HCl 50 MG OR TABS 02/07/2022 - 09/14/2023 Pr ovider: EILEEN VINCENT MD Diagnosis: TAKE ONE (1) OR TWO (2) TABL ETS BY MOUTH AT BEDTIME NEEDED SLEEP Last Documented On 09/14/2023 12:02PM By Radha Vincent MD ; [facility] Mydayis 37.5 MG OR CP24 01/16/2022 - 02/14/2022 Provider: EILEEN VINCENT MD Diagnosis: Attention-defici t hyperactivity disorder, other type ONE (1) CAPSULE EVERY MORNING Last Documented On 12/09/2022 5:29PM By Radha Vincent MD ; [facility] Mydayis 37.5 MG OR CP24 12/14/2021 - 01/16/2022 Provider: EILEEN VINCENT MD Diagnosis: Attention-defici t hyperactivity disorder, other type ONE (1) CAPSULE EVERY MORNING Last Documented On 12/09/2022 5:29PM By Radha Vincent MD ; [facility] Mydayis 37.5 MG OR CP24 11/03/2021 - 12/14/2021 Provider: EILEEN VINCENT MD Diagnosis: Attention-defici t hyperactivity disorder, other type ONE (1) CAPSULE EVERY MORNING Last Documented On 12/09/2022 5:29PM By Radha Vincent MD ; [facility] Namzaric 28-10 MG OR CP24 10/27/2021 - 10/17/2022 Prov ider: EILEEN VINCENT MD Diagnosis: TAKE ONE CAPSULE BY MOUTH EVERY MORNING Last Documented On 12/09/2022 5:29PM By Radha Vincent MD ; [facility] Mydayis 37.5 MG OR CP24 10/05/2021 - 11/03/2021 Provider: EILEEN VINCENT MD Diagnosis: Attention-defici t hyperactivity disorder, other type 1 Capsule every morning Last Documented On 12/09/2022 5:29PM By Radha Vincent MD ; [facility] Escitalopram Oxalate 20 MG OR TABS 10/04/2021 - 09/25/2022 Provider: EILEEN VINCENT MD Diagnosis: Generalized anxi ety disorder TAKE ONE TABLET BY MOUTH DAILY Last Documented On 12/09/2022 5:29PM By Radha Vincent MD ; [facility] Mydayis 37.5 MG OR CP24 09/02/2021 - 10/05/2021 Provider: EILEEN VINCENT MD Diagnosis: Attention-defici t hyperactivity disorder, other type 1 Capsule every morning Last Documented On 12/09/2022 5:29PM By Radha Vincent MD ; [facility] hydrOXYzine HCl 25 MG OR TABS 08/25/2021 - 07/17/2022 Provider: EILEEN VINCENT MD Diagnosis: Generalized anxi ety disorder TAKE 1 OR 2 TABLETS BY MOUTH NEEDED FOR AGITATION/ANXIETY Last Documented On 12/09/2022 5:29PM By Radha Vincent MD ; [facility] busPIRone HCl 15 MG OR TABS 08/24/2021 - 10/17/2022 Provider: EILEEN VINCENT MD Diagnosis: Generalized anxi ety disorder TAKE ONE TABLET BY MOUTH THREE TIMES A DAY Last Documented On 12/09/2022 5:29PM By Radha Vincent MD ; [facility] lamoTRIgine 150 MG OR TABS 08/24/2021 - 10/17/2022 Provider: EILEEN VINCENT MD Diagnosis: Bipolar disorder , unspecified TAKE ONE TABLET BY MOUTH TWO TIMES A DAY Last Documented On 12/09/2022 5:29PM By Radha Vincent MD ; [facility] Mydayis 37.5 MG OR CP24 08/04/2021 - 09/02/2021 Provider: EILEEN VINCENT MD Diagnosis: Attention-defici t hyperactivity disorder, other type 1 Capsule every morning Last Documented On 12/09/2022 5:29PM By Radha Vincent MD ; [facility] rOPINIRole HCl 1 MG OR TABS 07/29/2021 - 12/20/2021 Provider: EILEEN VINCENT MD Diagnosis: Restless legs syndrome as directed -- 1/2 tab in evening for 1 week then 1 tab in the evening thereafter for restless legs Last Documented On 12/09/2022 5:29PM By Radha Vincent MD ; [facility] hydrOXYzine HCl 25 MG OR TABS 06/15/2021 - 07/17/2022 Provider: Diagnosis: Generalized anxi ety disorder 1 tab a day as needed for agitation/anxiety Last Documented On 12/09/2022 5:29PM By LETI WILSON ; [facility] traZODone HCl 50 MG OR TABS 06/15/2021 - 07/17/2022 Pr ovider: Diagnosis: Psychophysiologi c insomnia 1 or 2 tabs at bedtime as needed for sleep Last Documented On 12/09/2022 5:29PM By LETI WILSON ; [facility] hydrOXYzine HCl 25 MG OR TABS 06/15/2021 - 08/25/2021 Provider: EILEEN VINCENT MD Diagnosis: Generalized anxi ety disorder as directed 1 tab a day as n eeded for agitation/anxiety Last Documented On 12/09/2022 5:29PM By Radha Vincent MD ; [facility] traZODone HCl 50 MG OR TABS 06/15/2021 - 07/17/2022 Provider: EILEEN VINCENT MD Diagnosis: Psychophysiologi c insomnia as directed 1 or 2 tabs at b edtime as needed for sleep Last Documented On 12/09/2022 5:29PM By Radha Vincent MD ; [facility] Mydayis 37.5 MG OR CP24 06/06/2021 - 12/20/2021 Provid er: EILEEN VINCENT MD Diagnosis: TAKE ONE CAPSULE BY MOUTH EVERY MORNING Last Documented On 12/09/2022 5:29PM By Radha Vincent MD ; [facility] buPROPion HCl ER (XL) 300 MG OR TB24 06/06/2021 - 07/03/2022 Provider: EILEEN VINCENT MD Diagnosis: Major depressive disorder, single episode, unspecified 1 tablet every morning Last Documented On 12/09/2022 5:29PM By Radha Vincent MD ; [facility] Mydayis 37.5 MG OR CP24 05/25/2021 - 12/20/2021 Provid er: EILEEN VINCENT MD Diagnosis: 1 Capsule every morning Last Documented On 12/09/2022 5:29PM By Radha Vincent MD ; [facility] Mydayis 37.5 MG OR CP24 04/25/2021 - 05/25/2021 Provider: EILEEN VINCENT MD Diagnosis: Attention-defici t hyperactivity disorder, other type as directed 1 Capsule every morning Last Documented On 12/09/2022 5:29PM By Radha Vincent MD ; [facility] Mydayis 37.5 MG OR CP24 03/23/2021 - 04/19/2021 Provid er: EILEEN VINCENT MD Diagnosis: as directed 1 Capsule every morning Last Documented On 12/09/2022 5:29PM By Radha Vincent MD ; [facility] Mydayis 37.5 MG OR CP24 02/21/2021 - 03/23/2021 Provid er: EILEEN VINCENT MD Diagnosis: as directed 1 Capsule every morning Last Documented On 12/09/2022 5:29PM By Radha Vincent MD ; [facility] Mydayis 37.5 MG OR CP24 01/25/2021 - 02/21/2021 Provider: EILEEN VINCENT MD Diagnosis: Attention-defici t hyperactivity disorder, other type as directed 1 Capsule every morning Last Documented On 12/09/2022 5:29PM By Radha Vincent MD ; [facility] Mydayis 37.5 MG OR CP24 12/21/2020 - 01/25/2021 Provider: EILEEN VINCENT MD Diagnosis: Attention-defici t hyperactivity disorder, other type as directed 1 Capsule every morning Last Documented On 12/09/2022 5:29PM By Radha Vincent MD ; [facility] Mydayis 37.5 MG OR CP24 11/18/2020 - 12/20/2020 Provider: EILEEN VINCENT MD Diagnosis: Attention-defici t hyperactivity disorder, other type as directed 1 Capsule every morning Last Documented On 12/09/2022 5:29PM By Radha Vincent MD ; [facility] Namzaric 28-10 MG OR CP24 10/26/2020 - 12/20/2021 Provider: EILEEN CONNORS MD Diagnosis: Dem in oth dis c lassd elswhr,unsp sev,w/o beh/psych/mood/anx 1 CAPSULE EVERY MORNING Last Documented On 12/09/2022 5:29PM By Radha Vincent MD ; [facility] Mydayis 37.5 MG OR CP24 10/18/2020 - 11/18/2020 Provider: EILEEN VINCENT MD Diagnosis: Attention-defici t hyperactivity disorder, other type as directed 1 Capsule every morning Last Documented On 12/09/2022 5:29PM By Radha Vincent MD ; [facility] hydrOXYzine HCl 25 MG OR TABS 10/08/2020 - 11/07/2020 Provider: EILEEN VINCENT MD Diagnosis: Generalized anxi ety disorder as directed - 1 tab a day as needed for agitation/anxiety Last Documented On 12/09/2022 5:29PM By Radha Vincent MD ; [facility] Escitalopram Oxalate 20 MG OR TABS 09/27/2020 - 10/04/2021 Provider: EILEEN VINCENT MD Diagnosis: Generalized anxi ety disorder TAKE ONE TABLET BY MOUTH DAILY Last Documented On 12/09/2022 5:29PM By Radha Vincent MD ; [facility] lamoTRIgine 150 MG OR TABS 09/22/2020 - 08/24/2021 Provider: EILEEN VINCENT MD Diagnosis: Bipolar disorder , unspecified TAKE ONE TABLET BY MOUTH TWO TIMES A DAY Last Documented On 12/09/2022 5:29PM By Radha Vincent MD ; [facility] Mydayis 37.5 MG OR CP24 09/20/2020 - 10/18/2020 Provider: EILEEN VINCENT MD Diagnosis: Attention-defici t hyperactivity disorder, other type as directed 1 Capsule every morning Last Documented On 12/09/2022 5:29PM By Radha Vincent MD ; [facility] Mydayis 37.5 MG OR CP24 08/20/2020 - 09/20/2020 Provider: EILEEN VINCENT MD Diagnosis: Attention-defici t hyperactivity disorder, other type as directed 1 Capsule every morning Last Documented On 12/09/2022 5:29PM By Radha Vincent MD ; [facility] busPIRone HCl 15 MG OR TABS 08/02/2020 - 08/24/2021 Provider: EILEEN VINCENT MD Diagnosis: Generalized anxi ety disorder TAKE ONE TABLET BY MOUTH THREE TIMES A DAY Last Documented On 12/09/2022 5:29PM By Radha Vincent MD ; [facility] Mydayis 37.5 MG OR CP24 07/21/2020 - 08/20/2020 Provider: EILEEN VINCENT MD Diagnosis: Attention-defici t hyperactivity disorder, other type as directed 1 Capsule every morning Last Documented On 12/09/2022 5:29PM By Radha Vincent MD ; [facility] Mydayis 37.5 MG OR CP24 06/21/2020 - 07/21/2020 Provider: EILEEN VINCENT MD Diagnosis: Attention-defici t hyperactivity disorder, other type as directed 1 Capsule every morning Last Documented On 12/09/2022 5:29PM By Radha Vincent MD ; [facility] buPROPion HCl ER (XL) 300 MG OR TB24 06/08/2020 - 06/06/2021 Provider: EILEEN VINCENT MD Diagnosis: Major depressive disorder, single episode, unspecified 1 tablet every morning Last Documented On 12/09/2022 5:29PM By Radha Vincent MD ; [facility] Mydayis 37.5 MG OR CP24 05/20/2020 - 06/21/2020 Provider: EILEEN VINCENT MD Diagnosis: Attention-defici t hyperactivity disorder, other type as directed 1 Capsule every morning Last Documented On 12/09/2022 5:29PM By Radha Vincent MD ; [facility] traZODone HCl 50 MG OR TABS 05/10/2020 - 04/19/2021 Provider: EILEEN VINCENT MD Diagnosis: Psychophysiologi c insomnia TAKE ONE OR TWO TABLETS AT B EDTIME NEEDED FOR SLEEP Last Documented On 12/09/2022 5:29PM By Radha Vincent MD ; [facility] Mydayis 37.5 MG OR CP24 04/21/2020 - 05/20/2020 Provider: EILEEN VINCENT MD Diagnosis: Attention-defici t hyperactivity disorder, other type as directed 1 Capsule every morning Last Documented On 12/09/2022 5:29PM By Radha Vincent MD ; [facility] Mydayis 37.5 MG OR CP24 03/19/2020 - 04/21/2020 Provider: EILEEN VINCENT MD Diagnosis: Attention-defici t hyperactivity disorder, other type as directed 1 Capsule every morning Last Documented On 12/09/2022 5:29PM By Radha Vincent MD ; [facility] Mydayis 37.5 MG OR CP24 03/19/2020 - 03/19/2020 Provider: EILEEN VINCENT MD Diagnosis: Attention-defici t hyperactivity disorder, other type as directed 1 Capsule every morning Last Documented On 12/09/2022 5:29PM By Radha Vincent MD ; [facility] Mydayis 37.5 MG OR CP24 02/16/2020 - 03/19/2020 Provider: EILEEN VINCENT MD Diagnosis: Attention-defici t hyperactivity disorder, other type as directed 1 Capsule every morning Last Documented On 12/09/2022 5:29PM By Radha Vincent MD ; [facility] Mydayis 37.5 MG OR CP24 01/12/2020 - 07/29/2021 Provid er: Diagnosis: Attention-defici t hyperactivity disorder, other type 1 Capsule every morning Last Documented On 12/09/2022 5:29PM By WISAM CASH ; [facility] Mydayis 37.5 MG OR CP24 01/12/2020 - 02/16/2020 Provider: EILEEN VINCENT MD Diagnosis: Attention-defici t hyperactivity disorder, other type as directed 1 Capsule every morning Last Documented On 12/09/2022 5:29PM By Radha Vincent MD ; [facility] traZODone HCl 50 MG OR TABS 12/23/2019 - 05/10/2020 Provider: EILEEN VINCENT MD Diagnosis: Psychophysiologi c insomnia DIRECTED --1 OR 2 TABS AT BEDTIME NEEDED FOR SLEEP Last Documented On 12/09/2022 5:29PM By Radha Vincent MD ; [facility] Mydayis 37.5 MG OR CP24 12/12/2019 - 02/07/2022 Provider: EILEEN VINCENT MD Diagnosis: Attention-defici t hyperactivity disorder, other type 1 Capsule every morning Last Documented On 12/09/2022 5:29PM By Radha Vincent MD ; [facility] Mydayis 37.5 MG OR CP24 11/06/2019 - 12/12/2019 Provider: EILEEN VINCENT MD Diagnosis: Attention-defici t hyperactivity disorder, other type 1 Capsule every morning Last Documented On 12/09/2022 5:29PM By Radha Vincent MD ; [facility] Namzaric 28-10 MG OR CP24 10/24/2019 - 10/26/2020 Provider: EILEEN CONNORS MD Diagnosis: Dem in oth dis c lassd elswhr,unsp sev,w/o beh/psych/mood/anx 1 CAPSULE EVERY MORNING Last Documented On 12/09/2022 5:29PM By Radha Vincent MD ; [facility] LaMICtal 150 MG OR TABS 10/20/2019 - 09/22/2020 Provider: EILEEN VINCENT MD Diagnosis: Bipolar disorder , unspecified TAKE ONE TABLET BY MOUTH TWO TIMES A DAY Last Documented On 12/09/2022 5:29PM By Radha Vincent MD ; [facility] Mydayis 37.5 MG OR CP24 10/07/2019 - 11/06/2019 Provider: EILEEN VINCENT MD Diagnosis: Attention-defici t hyperactivity disorder, other type 1 Capsule every morning Last Documented On 12/09/2022 5:29PM By Radha Vincent MD ; [facility] Mydayis 37.5 MG OR CP24 09/02/2019 - 10/07/2019 Provider: EILEEN VINCENT MD Diagnosis: Attention-defici t hyperactivity disorder, other type 1 Capsule every morning Last Documented On 12/09/2022 5:29PM By Radha Vincent MD ; [facility] busPIRone HCl 15 MG OR TABS 08/27/2019 - 08/02/2020 Provider: EILEEN VINCENT MD Diagnosis: Generalized anxi ety disorder TAKE ONE TABLET BY MOUTH THREE TIMES A DAY Last Documented On 12/09/2022 5:29PM By Radha Vincent MD ; [facility] Mydayis 37.5 MG OR CP24 08/01/2019 - 09/02/2019 Provider: EILEEN VINCENT MD Diagnosis: Attention-defici t hyperactivity disorder, other type 1 Capsule every morning Last Documented On 12/09/2022 5:29PM By Radha Vincent MD ; [facility] Mydayis 37.5 MG OR CP24 06/27/2019 - 08/01/2019 Provider: EILEEN VINCENT MD Diagnosis: Attention-defici t hyperactivity disorder, other type 1 Capsule every morning Last Documented On 12/09/2022 5:29PM By Radha Vincent MD ; [facility] Mydayis 37.5 MG OR CP24 06/09/2019 - 06/27/2019 Provider: EILEEN VINCENT MD Diagnosis: Attention-defici t hyperactivity disorder, other type 1 Capsule every morning Last Documented On 12/09/2022 5:29PM By Radha Vincent MD ; [facility] Escitalopram Oxalate 20 MG OR TABS 06/02/2019 - 09/27/2020 Provider: EILEEN VINCENT MD Diagnosis: Generalized anxi ety disorder TAKE ONE TABLET BY MOUTH DAILY Last Documented On 12/09/2022 5:29PM By Radha Vincent MD ; [facility] LaMICtal 150 MG OR TABS 05/11/2019 - 10/20/2019 Provider: EILEEN VINCENT MD Diagnosis: Bipolar disorder , unspecified ONE TABLET TWICE A DAY Last Documented On 12/09/2022 5:29PM By Radha Vincent MD ; [facility] Escitalopram Oxalate 20 MG OR TABS 05/11/2019 - 06/02/2019 Provider: EILEEN VINCENT MD Diagnosis: Generalized anxi ety disorder ONE TABLET DAILY Last Documented On 12/09/2022 5:29PM By Radha Vincent MD ; [facility] Wellbutrin XL 300 MG OR TB24 05/11/2019 - 06/08/2020 Provider: EILEEN VINCENT MD Diagnosis: Major depressive disorder, single episode, unspecified TAKE ONE TABLET BY MOUTH EVERY MORNING Last Documented On 12/09/2022 5:29PM By Radha Vincent MD ; [facility] busPIRone HCl 15 MG OR TABS 05/11/2019 - 08/27/2019 Provider: EILEEN VINCENT MD Diagnosis: Generalized anxi ety disorder One tablet three times a day Last Documented On 12/09/2022 5:29PM By Radha Vincent MD ; [facility] Namzaric 28-10 MG OR CP24 05/11/2019 - 10/24/2019 Provider: EILEEN CONNORS MD Diagnosis: Dem in oth dis c lassd elswhr,unsp sev,w/o beh/psych/mood/anx 1 Capsule every morning Last Documented On 12/09/2022 5:29PM By Radha Vincent MD ; [facility] traZODone HCl 50 MG OR TABS 05/11/2019 - 12/23/2019 Provider: EILEEN VINCENT MD Diagnosis: Psychophysiologi c insomnia DIRECTED --1 OR 2 TABS AT BEDTIME NEEDED FOR SLEEP Last Documented On 12/09/2022 5:29PM By Radha Vincent MD ; [facility] Mydayis 37.5 MG OR CP24 05/07/2019 - 06/09/2019 Provider: EILEEN VINCENT MD Diagnosis: Attention-defici t hyperactivity disorder, other type 1 Capsule every morning Last Documented On 12/09/2022 5:29PM By Radha Vincent MD ; [facility] Wellbutrin XL 300 MG OR TB24 05/06/2019 - 04/10/2019 Provider: EILEEN VINCENT MD Diagnosis: Major depressive disorder, single episode, unspecified TAKE ONE TABLET BY MOUTH EVERY MORNING Last Documented On 12/09/2022 5:29PM By Radha Vincent MD ; [facility] Ferrous Sulfate 325 (65 Fe) MG OR TABS 04/10/2019 - Provider: Diagnosis: 1 tab daily Last Documented On 04/18/2023 10:30AM By WISAM CASH ; [facility] Mydayis 37.5 MG OR CP24 04/10/2019 - 05/07/2019 Provider: EILEEN VINCENT MD Diagnosis: Attention-defici t hyperactivity disorder, other type 1 Capsule every morning Last Documented On 12/09/2022 5:29PM By Radha Vincent MD ; [facility] Mydayis 37.5 MG OR CP24 03/06/2019 - 04/10/2019 Provider: EILEEN VINCENT MD Diagnosis: Attention-defici t hyperactivity disorder, other type 1 Capsule every morning Last Documented On 12/09/2022 5:29PM By Radha Vincent MD ; [facility] Mydayis 37.5 MG OR CP24 01/29/2019 - 03/06/2019 Provider: EILEEN VINCENT MD Diagnosis: Attention-defici t hyperactivity disorder, other type 1 Capsule every morning Last Documented On 12/09/2022 5:29PM By Radha Vincent MD ; [facility] Mydayis 25 MG OR CP24 12/24/2018 - 08/21/2019 Provider: EILEEN VINCENT MD Diagnosis: Attention-defici t hyperactivity disorder, other type 1 Capsule every morning Last Documented On 12/09/2022 5:29PM By Radha Vincent MD ; [facility] Mydayis 37.5 MG OR CP24 12/24/2018 - 01/29/2019 Provider: EILEEN VINCENT MD Diagnosis: Attention-defici t hyperactivity disorder, other type 1 Capsule every morning Last Documented On 12/09/2022 5:29PM By Radha Vincent MD ; [facility] Mydayis 25 MG OR CP24 12/18/2018 - 08/21/2019 Provider: EILEEN VINCENT MD Diagnosis: Attention-defici t hyperactivity disorder, other type 1 Capsule every morning Last Documented On 12/09/2022 5:29PM By Radha Vincent MD ; [facility] LaMICtal 150 MG OR TABS 12/02/2018 - 04/10/2019 Provider: EILEEN VINCENT MD Diagnosis: Bipolar disorder , unspecified ONE TABLET TWICE A DAY Last Documented On 12/09/2022 5:29PM By Radha Vincent MD ; [facility] Namzaric 28-10 MG OR CP24 12/02/2018 - 04/10/2019 Provider: EILEEN CONNORS MD Diagnosis: Dem in oth dis c lassd elswhr,unsp sev,w/o beh/psych/mood/anx 1 Capsule every morning Last Documented On 12/09/2022 5:29PM By Radha Vincent MD ; [facility] Wellbutrin XL 300 MG OR TB24 12/02/2018 - 05/06/2019 Provider: EILEEN VINCENT MD Diagnosis: Major depressive disorder, single episode, unspecified 1 tablet every morning Last Documented On 12/09/2022 5:29PM By Radha Vincent MD ; [facility] traZODone HCl 50 MG OR TABS 11/28/2018 - 04/10/2019 Provider: EILEEN VINCENT MD Diagnosis: Psychophysiologi c insomnia DIRECTED --1 OR 2 TABS AT BEDTIME NEEDED FOR SLEEP Last Documented On 12/09/2022 5:29PM By Radha Vincent MD ; [facility] Mydayis 25 MG OR CP24 11/28/2018 - 12/18/2018 Provider: EILEEN VINCENT MD Diagnosis: Attention-defici t hyperactivity disorder, other type 1 Capsule every morning Last Documented On 12/09/2022 5:29PM By Radha Vincent MD ; [facility] Mydayis 25 MG OR CP24 10/22/2018 - 11/28/2018 Provider: EILEEN VINCENT MD Diagnosis: Attention-defici t hyperactivity disorder, other type 1 Capsule every morning Last Documented On 12/09/2022 5:29PM By Radha Vincent MD ; [facility] LaMICtal 150 MG OR TABS 10/14/2018 - 11/28/2018 Provider: EILEEN VINCENT MD Diagnosis: Bipolar disorder , unspecified ONE TABLET TWICE A DAY Last Documented On 12/09/2022 5:29PM By Radha Vincent MD ; [facility] Mydayis 25 MG OR CP24 09/30/2018 - 10/22/2018 Provider: EILEEN VINCENT MD Diagnosis: Attention-defici t hyperactivity disorder, other type 1 Capsule every morning Last Documented On 12/09/2022 5:29PM By Radha Vincent MD ; [facility] LaMICtal 150 MG OR TABS 09/24/2018 - 09/27/2018 Provider: EILEEN VINCENT MD Diagnosis: Bipolar disorder , unspecified One tablet twice a day Last Documented On 12/09/2022 5:29PM By Radha Vincent MD ; [facility] Mydayis 25 MG OR CP24 08/22/2018 - 09/30/2018 Provider: EILEEN VINCENT MD Diagnosis: Attention-defici t hyperactivity disorder, other type 1 Capsule every morning Last Documented On 12/09/2022 5:29PM By Radha Vincent MD ; [facility] prednisoLONE Sodium Phosphate 1% OP SOLN 08/20/2018 - 04/05/2022 Provider: Diagnosis: 1 drop in left eye in the morning Last Documented On 12/09/2022 5:29PM By WISAM CASH ; [facility] Namzaric 28-10 MG OR CP24 08/02/2018 - 11/28/2018 Provider: EILEEN CONNORS MD Diagnosis: Dem in oth dis c lassd elswhr,unsp sev,w/o beh/psych/mood/anx 1 Capsule every morning Last Documented On 12/09/2022 5:29PM By Radha Vincent MD ; [facility] Mydayis 25 MG OR CP24 07/15/2018 - 08/22/2018 Provider: EILEEN VINCENT MD Diagnosis: Attention-defici t hyperactivity disorder, other type 1 Capsule every morning Last Documented On 12/09/2022 5:29PM By Radha Vincent MD ; [facility] Escitalopram Oxalate 20 MG OR TABS 07/01/2018 - 04/10/2019 Provider: EILEEN VINCENT MD Diagnosis: Generalized anxi ety disorder ONE TABLET DAILY Last Documented On 12/09/2022 5:29PM By Radha Vincent MD ; [facility] Wellbutrin XL 300 MG OR TB24 06/17/2018 - 11/28/2018 Provider: EILEEN VINCENT MD Diagnosis: Major depressive disorder, single episode, unspecified 1 tablet every morning Last Documented On 12/09/2022 5:29PM By Radha Vincent MD ; [facility] busPIRone HCl 15 MG OR TABS 06/17/2018 - 04/10/2019 Provider: EILEEN VINCENT MD Diagnosis: Generalized anxi ety disorder One tablet three times a day Last Documented On 12/09/2022 5:29PM By Radha Vincent MD ; [facility] Namzaric 28-10 MG OR CP24 06/17/2018 - 08/02/2018 Provider: EILEEN CONNORS MD Diagnosis: Dem in oth dis c lassd elswhr,unsp sev,w/o beh/psych/mood/anx 1 Capsule every morning Last Documented On 12/09/2022 5:29PM By Radha Vincent MD ; [facility] traZODone HCl 50 MG OR TABS 06/17/2018 - 11/28/2018 Provider: EILEEN VINCETN MD Diagnosis: Psychophysiologi c insomnia DIRECTED --1 OR 2 TABS AT BEDTIME NEEDED FOR SLEEP Last Documented On 12/09/2022 5:29PM By Radha Vincent MD ; [facility] LaMICtal 150 MG OR TABS 06/17/2018 - 10/14/2018 Provider: EILEEN VINCENT MD Diagnosis: Bipolar disorder , unspecified ONE TABLET TWICE A DAY Last Documented On 12/09/2022 5:29PM By Radha Vincent MD ; [facility] Escitalopram Oxalate 20 MG OR TABS 06/17/2018 - 07/01/2018 Provider: EILEEN VINCENT MD Diagnosis: Generalized anxi ety disorder One tablet daily Last Documented On 12/09/2022 5:29PM By Rahda Vincent MD ; [facility] Mydayis 25 MG OR CP24 06/12/2018 - 07/15/2018 Provider: EILEEN VINCENT MD Diagnosis: Attention-defici t hyperactivity disorder, other type 1 Capsule every morning Last Documented On 12/09/2022 5:29PM By Radha Vincent MD ; [facility] Mydayis 25 MG OR CP24 05/24/2018 - 06/12/2018 Provider: EILEEN VINCENT MD Diagnosis: Attention-defici t hyperactivity disorder, other type 1 Capsule every morning Last Documented On 12/09/2022 5:29PM By Radha Vincent MD ; [facility] Famotidine 40 MG OR TABS 04/24/2018 - 08/21/2019 Provi itz: Diagnosis: 1 tab bid Last Documented On 12/09/2022 5:29PM By WISAM CASH ; [facility] Moxifloxacin HCl 0.5% OP SOLN 04/22/2018 - 08/21/2019 Provider: Diagnosis: 1 drop in left eye daily Last Documented On 12/09/2022 5:29PM By WISAM CASH ; [facility] Mydayis 25 MG OR CP24 04/09/2018 - 05/24/2018 Provider: EILEEN VINCENT MD Diagnosis: Attention-defici t hyperactivity disorder, other type 1 Capsule every morning Last Documented On 12/09/2022 5:29PM By Radha Vincent MD ; [facility] Mydayis 25 MG OR CP24 03/11/2018 - 06/12/2018 Provider: EILEEN VINCENT MD Diagnosis: Attention-defici t hyperactivity disorder, other type 1 Capsule every morning Last Documented On 12/09/2022 5:29PM By Radha Vincent MD ; [facility] Mydayis 25 MG OR CP24 02/15/2018 - 03/11/2018 Provider: EILEEN VINCENT MD Diagnosis: Attention-defici t hyperactivity disorder, other type 1 Capsule every morning Last Documented On 12/09/2022 5:29PM By Radha Vincent MD ; [facility] Wellbutrin XL 300 MG OR TB24 01/04/2018 - 06/12/2018 Provider: EILEEN VINCENT MD Diagnosis: Bipolar disorder , current episode depressed, moderate 1 tablet every morning Last Documented On 12/09/2022 5:29PM By Radha Vincent MD ; [facility] traZODone HCl 50 MG OR TABS 01/04/2018 - 06/12/2018 Provider: EILEEN VINCENT MD Diagnosis: Psychophysiologi c insomnia DIRECTED --1 OR 2 TABS AT BEDTIME NEEDED FOR SLEEP Last Documented On 12/09/2022 5:29PM By Radha Vincent MD ; [facility] Namzaric 28-10 MG OR CP24 01/04/2018 - 06/12/2018 Provider: EILEEN CONNORS MD Diagnosis: Dem in oth dis c lassd elswhr,unsp sev,w/o beh/psych/mood/anx 1 Capsule every morning Last Documented On 12/09/2022 5:29PM By Radha Vincent MD ; [facility] busPIRone HCl 15 MG OR TABS 01/04/2018 - 06/12/2018 Provider: EILEEN VINCENT MD Diagnosis: Generalized anxi ety disorder One tablet three times a day Last Documented On 12/09/2022 5:29PM By Radha Vincent MD ; [facility] LaMICtal 150 MG OR TABS 01/04/2018 - 06/12/2018 Provider: EILEEN VINCENT MD Diagnosis: Bipolar disorder , unspecified ONE TABLET TWICE A DAY Last Documented On 12/09/2022 5:29PM By Radha Vincent MD ; [facility] Vyvanse 50 MG OR CAPS 01/03/2018 - 01/14/2018 Provider: EILEEN VINCENT MD Diagnosis: Attention-defici t hyperactivity disorder, other type 1 Capsule every morning Last Documented On 12/09/2022 5:29PM By Radha Vincent MD ; [facility] Dicyclomine HCl 10 MG OR CAPS 01/03/2018 - 06/12/2018 Provider: Diagnosis: Last Documented On 12/09/2022 5:29PM By Radha Vincent MD ; [facility] Mydayis 25 MG OR CP24 01/03/2018 - 02/15/2018 Provider: EILEEN VINCENT MD Diagnosis: Attention-defici t hyperactivity disorder, other type 1 Capsule every morning Last Documented On 12/09/2022 5:29PM By Radha Vincent MD ; [facility] traZODone HCl 50 MG OR TABS 12/17/2017 - 01/03/2018 Pr ovider: EILEEN VINCENT MD Diagnosis: DIRECTED --1 OR 2 TABS AT BEDTIME NEEDED FOR SLEEP Last Documented On 12/09/2022 5:29PM By Radha Vincent MD ; [facility] Vyvanse 50 MG OR CAPS 12/14/2017 - 12/14/2017 Provider: EILEEN VINCENT MD Diagnosis: Attention-defici t hyperactivity disorder, other type 1 Capsule every morning Last Documented On 12/09/2022 5:29PM By Radha Vincent MD ; [facility] Namzaric 28-10 MG OR CP24 12/14/2017 - 01/03/2018 Provider: EILEEN CONNORS MD Diagnosis: Dem in oth dis c lassd elswhr,unsp sev,w/o beh/psych/mood/anx 1 Capsule every morning Last Documented On 12/09/2022 5:29PM By Radha Vincent MD ; [facility] Vyvanse 50 MG OR CAPS 12/14/2017 - 01/03/2018 Provider: EILEEN VINCENT MD Diagnosis: Attention-defici t hyperactivity disorder, other type 1 Capsule every morning Last Documented On 12/09/2022 5:29PM By Radha Vincent MD ; [facility] Vyvanse 50 MG OR CAPS 11/15/2017 - 12/14/2017 Provider: EILEEN VINCENT MD Diagnosis: Attention-defici t hyperactivity disorder, other type 1 Capsule every morning Last Documented On 12/09/2022 5:29PM By Radha Vincent MD ; [facility] Vyvanse 50 MG OR CAPS 10/24/2017 - 11/15/2017 Provider: EILEEN VINCENT MD Diagnosis: Attention-defici t hyperactivity disorder, other type 1 Capsule every morning Last Documented On 12/09/2022 5:29PM By Radha Vincent MD ; [facility] Namzaric 28-10 MG OR CP24 09/07/2017 - 12/14/2017 Provider: EILEEN CONNORS MD Diagnosis: Dem in oth dis c lassd elswhr,unsp sev,w/o beh/psych/mood/anx 1 Capsule every morning Last Documented On 12/09/2022 5:29PM By Radha Vincent MD ; [facility] LaMICtal 150 MG OR TABS 09/07/2017 - 01/03/2018 Provider: EILEEN VINCENT MD Diagnosis: Bipolar disorder , unspecified ONE TABLET TWICE A DAY Last Documented On 12/09/2022 5:29PM By Radha Vincent MD ; [facility] Wellbutrin XL 300 MG OR TB24 09/07/2017 - 01/03/2018 Provider: EILEEN VINCENT MD Diagnosis: Bipolar disorder , current episode depressed, moderate 1 tablet every morning Last Documented On 12/09/2022 5:29PM By Radha Vincent MD ; [facility] busPIRone HCl 15 MG OR TABS 09/07/2017 - 01/03/2018 Provider: EILEEN VINCENT MD Diagnosis: Generalized anxi ety disorder One tablet three times a day Last Documented On 12/09/2022 5:29PM By Radha Vincent MD ; [facility] Vyvanse 50 MG OR CAPS 09/06/2017 - 10/24/2017 Provider: EILEEN VINCENT MD Diagnosis: Attention-defici t hyperactivity disorder, other type 1 Capsule every morning Last Documented On 12/09/2022 5:29PM By Radha Vincent MD ; [facility] traZODone HCl 50 MG OR TABS 08/28/2017 - 12/17/2017 Pr ovider: EILEEN VINCENT MD Diagnosis: DIRECTED --1 OR 2 TABS AT BEDTIME NEEDED FOR SLEEP Last Documented On 12/09/2022 5:29PM By Radha Vincent MD ; [facility] LaMICtal 150 MG OR TABS 08/27/2017 - 09/06/2017 Provid er: EILEEN VINCENT MD Diagnosis: ONE TABLET TWICE A DAY Last Documented On 12/09/2022 5:29PM By Radha Vincent MD ; [facility] Vyvanse 40 MG OR CAPS 08/14/2017 - 06/12/2018 Provider: EILEEN VINCENT MD Diagnosis: Attention-defici t hyperactivity disorder, other type 1 Capsule every morning Last Documented On 12/09/2022 5:29PM By Radha Vincent MD ; [facility] Vyvanse 40 MG OR CAPS 07/10/2017 - 08/14/2017 Provider: EILEEN VINCENT MD Diagnosis: Attention-defici t hyperactivity disorder, other type 1 Capsule every morning Last Documented On 12/09/2022 5:29PM By Radha Vincent MD ; [facility] Vyvanse 40 MG OR CAPS 06/04/2017 - 07/10/2017 Provider: EILEEN VINCENT MD Diagnosis: Attention-defici t hyperactivity disorder, other type 1 Capsule every morning Last Documented On 12/09/2022 5:29PM By Radha Vincent MD ; [facility] Vyvanse 40 MG OR CAPS 06/01/2017 - 06/04/2017 Provider: EILEEN VINCENT MD Diagnosis: Attention-defici t hyperactivity disorder, other type 1 Capsule every morning Last Documented On 12/09/2022 5:29PM By Radha Vincent MD ; [facility] busPIRone HCl 15 MG OR TABS 05/09/2017 - 09/06/2017 Provider: EILEEN VINCENT MD Diagnosis: Generalized anxi ety disorder One tablet three times a day Last Documented On 12/09/2022 5:29PM By Radha Vincent MD ; [facility] Escitalopram Oxalate 20 MG OR TABS 05/09/2017 - 06/12/2018 Provider: EILEEN VINCENT MD Diagnosis: Generalized anxi ety disorder One tablet daily Last Documented On 12/09/2022 5:29PM By Radha Vincent MD ; [facility] Namzaric 28-10 MG OR CP24 05/09/2017 - 09/06/2017 Provider: EILEEN CONNORS MD Diagnosis: Dem in oth dis c lassd elswhr,unsp sev,w/o beh/psych/mood/anx 1 Capsule every morning Last Documented On 12/09/2022 5:29PM By Radha Vincent MD ; [facility] Vyvanse 40 MG OR CAPS 05/09/2017 - 06/01/2017 Provider: EILEEN VINCENT MD Diagnosis: Attention-defici t hyperactivity disorder, other type 1 Capsule every morning Last Documented On 12/09/2022 5:29PM By Radha Vincent MD ; [facility] traZODone HCl 50 MG OR TABS 05/09/2017 - 08/28/2017 Provider: EILEEN VINCENT MD Diagnosis: Psychophysiologi c insomnia as directed --1 or 2 tabs at bedtime as needed for sleep Last Documented On 12/09/2022 5:29PM By Radha Vincent MD ; [facility] LaMICtal 150 MG OR TABS 05/09/2017 - 08/27/2017 Provider: EILEEN VINCENT MD Diagnosis: Bipolar disorder , unspecified One tablet twice a day Last Documented On 12/09/2022 5:29PM By Radha Vincent MD ; [facility] Wellbutrin XL 300 MG OR TB24 05/09/2017 - 09/06/2017 Provider: EILEEN VINCENT MD Diagnosis: Bipolar disorder , current episode depressed, moderate 1 tablet every morning Last Documented On 12/09/2022 5:29PM By Radha Vincent MD ; [facility] Vyvanse 30 MG OR CAPS 05/07/2017 - 05/09/2017 Provider: EILEEN VINCENT MD Diagnosis: Attention-defici t hyperactivity disorder, other type 1 Capsule every morning Last Documented On 12/09/2022 5:29PM By Radha Vincent MD ; [facility] Vyvanse 40 MG OR CAPS 05/07/2017 - 05/09/2017 Provider: EILEEN VINCENT MD Diagnosis: Attention-defici t hyperactivity disorder, other type 1 Capsule every morning Last Documented On 12/09/2022 5:29PM By Radha Vincent MD ; [facility] busPIRone HCl 15 MG OR TABS 04/11/2017 - 05/09/2017 Provider: EILEEN VINCENT MD Diagnosis: Generalized anxi ety disorder One tablet three times a day Last Documented On 12/09/2022 5:29PM By Radha Vincent MD ; [facility] Namzaric 28-10 MG OR CP24 04/09/2017 - 05/09/2017 Provider: EILEEN CONNORS MD Diagnosis: Dem in oth dis c lassd elswhr,unsp sev,w/o beh/psych/mood/anx as directed Last Documented On 12/09/2022 5:29PM By Radha Vincent MD ; [facility] traZODone HCl 50 MG OR TABS 04/09/2017 - 05/09/2017 Provider: EILEEN VINCENT MD Diagnosis: Psychophysiologi c insomnia as directed --1 or 2 tabs at bedtime as needed for sleep Last Documented On 12/09/2022 5:29PM By Radha Vincent MD ; [facility] Escitalopram Oxalate 20 MG OR TABS 04/09/2017 - 05/09/2017 Provider: EILEEN VINCENT MD Diagnosis: Generalized anxi ety disorder One tablet daily Last Documented On 12/09/2022 5:29PM By Radha Vincent MD ; [facility] busPIRone HCl 15 MG OR TABS 04/09/2017 - 04/11/2017 Provider: EILEEN VINCENT MD Diagnosis: Generalized anxi ety disorder One tablet three times a day --called in 90 and 6 RF on 09/20/16 Last Documented On 12/09/2022 5:29PM By Radha Vincent MD ; [facility] LaMICtal 150 MG OR TABS 04/09/2017 - 05/09/2017 Provider: EILEEN VINCENT MD Diagnosis: Bipolar disorder , unspecified One tablet twice a day Last Documented On 12/09/2022 5:29PM By Radha Vincent MD ; [facility] Terbinafine HCl 250 MG OR TABS 04/06/2017 - 01/03/2018 Provider: Diagnosis: 1 daily Last Documented On 12/09/2022 5:29PM By WILMER REDDY LPN ; [facility] Vyvanse 30 MG OR CAPS 04/06/2017 - 05/07/2017 Provider: EILEEN VINCENT MD Diagnosis: Attention-defici t hyperactivity disorder, other type 1 Capsule every morning Last Documented On 12/09/2022 5:29PM By Radha Vincent MD ; [facility] Focalin 10 MG OR TABS 02/12/2017 - 04/06/2017 Provider: EILEEN VINCENT MD Diagnosis: Attention-defici t hyperactivity disorder, other type as directed --10 mg in am an d 10 mg at noon Last Documented On 12/09/2022 5:29PM By Radha Vincent MD ; [facility] Escitalopram Oxalate 20 MG OR TABS 02/12/2017 - 04/06/2017 Provider: EILEEN VINCENT MD Diagnosis: Generalized anxi ety disorder One tablet daily Last Documented On 12/09/2022 5:29PM By Radha Vincent MD ; [facility] LaMICtal 150 MG OR TABS 02/12/2017 - 04/06/2017 Provider: EILEEN VINCENT MD Diagnosis: Bipolar disorder , unspecified One tablet twice a day Last Documented On 12/09/2022 5:29PM By Radha Vincent MD ; [facility] busPIRone HCl 15 MG OR TABS 02/12/2017 - 04/06/2017 Provider: EILEEN VINCENT MD Diagnosis: Generalized anxi ety disorder One tablet three times a day --called in 90 and 6 RF on 09/20/16 Last Documented On 12/09/2022 5:29PM By Radha Vincent MD ; [facility] Namzaric 28-10 MG OR CP24 02/12/2017 - 04/06/2017 Provider: EILEEN CONNORS MD Diagnosis: Dem in oth dis c lassd elswhr,unsp sev,w/o beh/psych/mood/anx as directed Last Documented On 12/09/2022 5:29PM By Radha Vincent MD ; [facility] traZODone HCl 50 MG OR TABS 02/12/2017 - 04/06/2017 Provider: EILEEN VINCENT MD Diagnosis: Psychophysiologi c insomnia as directed --1 or 2 tabs at bedtime as needed for sleep Last Documented On 12/09/2022 5:29PM By Radha Vincent MD ; [facility] Wellbutrin XL 300 MG OR TB24 02/09/2017 - 05/09/2017 Provider: EILEEN VINCENT MD Diagnosis: Bipolar disorder , current episode depressed, moderate 1 tablet every morning Last Documented On 12/09/2022 5:29PM By Radha Vincent MD ; [facility] Focalin 10 MG OR TABS 01/16/2017 - 04/06/2017 Provider: EILEEN VINCENT MD Diagnosis: Attention-defici t hyperactivity disorder, other type 1 tablet every morning Last Documented On 12/09/2022 5:29PM By Radha Vincent MD ; [facility] LaMICtal 150 MG OR TABS 10/23/2016 - 01/16/2017 Provider: EILEEN VINCENT MD Diagnosis: Bipolar disorder , unspecified One tablet twice a day Last Documented On 12/09/2022 5:29PM By Radha Vincent MD ; [facility] Wellbutrin XL 300 MG OR TB24 10/23/2016 - 02/09/2017 Provider: EILEEN VINCENT MD Diagnosis: Bipolar disorder , current episode depressed, moderate 1 tablet every morning Last Documented On 12/09/2022 5:29PM By Radha Vincent MD ; [facility] busPIRone HCl 15 MG OR TABS 10/23/2016 - 01/16/2017 Provider: EILEEN VINCENT MD Diagnosis: Generalized anxi ety disorder One tablet three times a day --called in 90 and 6 RF on 09/20/16 Last Documented On 12/09/2022 5:29PM By Radha Vincent MD ; [facility] traZODone HCl 50 MG OR TABS 10/23/2016 - 01/16/2017 Provider: EILEEN VINCENT MD Diagnosis: Psychophysiologi c insomnia as directed --1 or 2 tabs at bedtime as needed for sleep Last Documented On 12/09/2022 5:29PM By Radha Vincent MD ; [facility] Escitalopram Oxalate 20 MG OR TABS 10/23/2016 - 01/16/2017 Provider: EILEEN VINCENT MD Diagnosis: Generalized anxi ety disorder One tablet daily Last Documented On 12/09/2022 5:29PM By Radha Vincent MD ; [facility] Namzaric 28-10 MG OR CP24 10/12/2016 - 01/16/2017 Provider: EILEEN CONNORS MD Diagnosis: Dem in oth dis c lassd elswhr,unsp sev,w/o beh/psych/mood/anx as directed Last Documented On 12/09/2022 5:29PM By Radha Vincent MD ; [facility] busPIRone HCl 15 MG OR TABS 09/20/2016 - 10/12/2016 Provider: EILEEN VINCENT MD Diagnosis: Generalized anxi ety disorder One tablet three times a day --called in 90 and 6 RF on 09/20/16 Last Documented On 12/09/2022 5:29PM By Radha Vincent MD ; [facility] Escitalopram Oxalate 20 MG OR TABS 08/01/2016 - 10/12/2016 Provider: EILEEN VINCENT MD Diagnosis: Generalized anxi ety disorder One tablet daily Last Documented On 12/09/2022 5:29PM By Radha Vincent MD ; [facility] busPIRone HCl 15 MG OR TABS 08/01/2016 - 09/20/2016 Provider: EILEEN VINCENT MD Diagnosis: Generalized anxi ety disorder One tablet three times a day Last Documented On 12/09/2022 5:29PM By Radha Vincent MD ; [facility] Terbinafine HCl 250 MG OR TABS 08/01/2016 - 01/16/2017 Provider: Diagnosis: 1 daily Last Documented On 12/09/2022 5:29PM By WILMER REDDY LPN ; [facility] traZODone HCl 50 MG OR TABS 08/01/2016 - 10/12/2016 Provider: EILEEN CONNORS MD Diagnosis: Oth insomnia not due to a substance or known physiol cond as directed --1 or 2 tabs at bedtime as needed for sleep Last Documented On 12/09/2022 5:29PM By Radha Vincent MD ; [facility] Namenda XR 28 MG OR CP24 08/01/2016 - 10/23/2016 Provider: EILEEN CONNORS MD Diagnosis: Unsp dementia, u nsp severity, without beh/psych/mood/anx 1 Capsule every morning Last Documented On 12/09/2022 5:29PM By Radha Vincent MD ; [facility] LaMICtal 150 MG OR TABS 08/01/2016 - 10/12/2016 Provider: EILEEN CONNORS MD Diagnosis: Bipolar disord, crnt epsd depress, mild or mod severt, unsp One tablet twice a day Last Documented On 12/09/2022 5:29PM By Radha Vincent MD ; [facility] Aricept 23 MG OR TABS 08/01/2016 - 10/23/2016 Provider: EILEEN CONNORS MD Diagnosis: Unsp dementia, u nsp severity, without beh/psych/mood/anx One tablet daily Last Documented On 12/09/2022 5:29PM By Radha Vincent MD ; [facility] Aricept 23 MG OR TABS 07/28/2016 - 08/01/2016 Provider: EILEEN CONNORS MD Diagnosis: Unsp dementia, u nsp severity, without beh/psych/mood/anx One tablet daily Last Documented On 12/09/2022 5:29PM By Radha Vincent MD ; [facility] traZODone HCl 50 MG OR TABS 07/28/2016 - 08/01/2016 Provider: EILEEN CONNORS MD Diagnosis: Oth insomnia not due to a substance or known physiol cond as directed --1 or 2 tabs at bedtime as needed for sleep Last Documented On 12/09/2022 5:29PM By Radha Vincent MD ; [facility] LaMICtal 150 MG OR TABS 06/27/2016 - 08/01/2016 Provider: EILEEN CONNORS MD Diagnosis: Bipolar disord, crnt epsd depress, mild or mod severt, unsp One tablet twice a day Last Documented On 12/09/2022 5:29PM By Radha Vincent MD ; [facility] Namenda XR 28 MG OR CP24 03/13/2016 - 08/01/2016 Provider: EILEEN CONNORS MD Diagnosis: Unsp dementia, u nsp severity, without beh/psych/mood/anx 1 Capsule every morning -- h as 2 RF left as of 03/13/16 -- [facility] Last Documented On 12/09/2022 5:29PM By Radha Vincent MD ; [facility] LaMICtal 150 MG OR TABS 03/13/2016 - 06/27/2016 Provider: EILEEN CONNORS MD Diagnosis: Bipolar disord, crnt epsd depress, mild or mod severt, unsp One tablet twice a day Last Documented On 12/09/2022 5:29PM By Radha Vincent MD ; [facility] Wellbutrin XL 300 MG OR TB24 03/13/2016 - 10/12/2016 Provider: EILEEN VINCENT MD Diagnosis: Bipolar disorder , current episode depressed, moderate 1 tablet every morning Last Documented On 12/09/2022 5:29PM By Radha Vincent MD ; [facility] traZODone HCl 50 MG OR TABS 03/13/2016 - 07/28/2016 Provider: EILEEN CONNORS MD Diagnosis: Oth insomnia not due to a substance or known physiol cond as directed --1 or 2 tabs at bedtime as needed for sleep Last Documented On 12/09/2022 5:29PM By Radha Vincent MD ; [facility] Aricept 23 MG OR TABS 03/13/2016 - 07/28/2016 Provider: EILEEN CONNORS MD Diagnosis: Unsp dementia, u nsp severity, without beh/psych/mood/anx One tablet daily Last Documented On 12/09/2022 5:29PM By Radha Vincent MD ; [facility] Escitalopram Oxalate 20 MG OR TABS 03/13/2016 - 08/01/2016 Provider: EILEEN VINCNET MD Diagnosis: Generalized anxi ety disorder One tablet daily Last Documented On 12/09/2022 5:29PM By Radha Vincent MD ; [facility] busPIRone HCl 15 MG OR TABS 03/13/2016 - 08/01/2016 Provider: EILEEN VINCENT MD Diagnosis: Generalized anxi ety disorder One tablet three times a day Last Documented On 12/09/2022 5:29PM By Radha Vincent MD ; [facility] Escitalopram Oxalate 20 MG OR TABS 03/09/2016 - 03/13/2016 Provider: EILEEN VINCENT MD Diagnosis: Generalized anxi ety disorder One tablet daily Last Documented On 12/09/2022 5:29PM By Radha Vincent MD ; [facility] Escitalopram Oxalate 20 MG Tablet 03/08/2016 - 04/18/2023 Provider: URIEL BA MD Diagnosis: One tablet daily Last Documented On 04/18/2023 10:30AM By WISAM CASH ; [facility] Levothyroxine Sodium 88 MCG OR TABS 03/04/2016 - 04/21 Provider: Diagnosis: 1 tablet daily Last Documented On 12/09/2022 5:29PM By WILMER REDDY LPN ; [facility] Wellbutrin XL 300 MG OR TB24 02/17/2016 - 03/13/2016 Provider: EILEEN VINCENT MD Diagnosis: Bipolar disorder , current episode depressed, moderate 1 tablet every morning Last Documented On 12/09/2022 5:29PM By Radha Vincent MD ; [facility] Wellbutrin XL 300 MG OR TB24 02/07/2016 - 02/17/2016 Provider: EILEEN VINCENT MD Diagnosis: Bipolar disorder , current episode depressed, moderate 1 tablet every morning Last Documented On 12/09/2022 5:29PM By Radha Vincent MD ; [facility] Namenda XR 28 MG OR CP24 01/17/2016 - 03/13/2016 Provider: EILEEN CONNORS MD Diagnosis: Unsp dementia, u nsp severity, without beh/psych/mood/anx 1 Capsule every morning Last Documented On 12/09/2022 5:29PM By Radha Vincent MD ; [facility] Namenda XR 28 MG OR CP24 01/12/2016 - 01/17/2016 Provider: EILEEN CONNORS MD Diagnosis: Unsp dementia, u nsp severity, without beh/psych/mood/anx 1 Capsule every morning Last Documented On 12/09/2022 5:29PM By Radha Vincent MD ; [facility] Dicyclomine HCl 10 MG OR CAPS 11/10/2015 - 09/14/2023 Provider: Diagnosis: 1 capsule daily Last Documented On 09/14/2023 11:16AM By WISAM CASH ; [facility] Calcium 600+D 600-400 MG-UNIT OR TABS 11/10/2015 - 12/2021 Provider: Diagnosis: 1 tablet twice a day Last Documented On 12/09/2022 5:29PM By WILMER REDDY LPN ; [facility] Omeprazole 20 MG OR TBEC 11/10/2015 - 12/15/2019 Provi itz: Diagnosis: 1 tablet daily Last Documented On 12/09/2022 5:29PM By WILMER REDDY LPN ; [facility] amLODIPine Besy-Benazepril HCl 5-10 MG OR CAPS 0 11/10/2015 - 03/13/2016 Provider: Diagnosis: 1 capsule daily Last Documented On 12/09/2022 5:29PM By WILMER REDDY LPN ; [facility] Metoprolol Tartrate 25 MG OR TABS 10/09/2015 - 018 Provider: Diagnosis: Take 1/2 tablet two times a day Last Documented On 12/09/2022 5:29PM By WILMER REDDY LPN ; [facility] Pantoprazole Sodium 40 MG OR TBEC 09/30/2015 - 018 Provider: Diagnosis: 1 tablet daily Last Documented On 12/09/2022 5:29PM By WILMER REDDY LPN ; [facility] Namenda XR 28 MG OR CP24 07/29/2015 - 01/12/2016 Provider: EILEEN CONNORS MD Diagnosis: Unsp dementia, u nsp severity, without beh/psych/mood/anx 1 Capsule every morning Last Documented On 12/09/2022 5:29PM By Radha Vincent MD ; [facility] traZODone HCl 50 MG OR TABS 07/29/2015 - 03/13/2016 Provider: EILEEN CONNORS MD Diagnosis: Oth insomnia not due to a substance or known physiol cond One tablet at bed time Last Documented On 12/09/2022 5:29PM By Radha Vincent MD ; [facility] Aricept 23 MG OR TABS 07/29/2015 - 03/13/2016 Provider: EILEEN CONNORS MD Diagnosis: Unsp dementia, u nsp severity, without beh/psych/mood/anx One tablet daily Last Documented On 12/09/2022 5:29PM By Radha Vincent MD ; [facility] Escitalopram Oxalate 20 MG OR TABS 07/29/2015 - 03/09/2016 Provider: EILEEN VINCENT MD Diagnosis: Generalized anxi ety disorder One tablet daily Last Documented On 12/09/2022 5:29PM By Radha Vincent MD ; [facility] Wellbutrin XL 300 MG OR TB24 07/29/2015 - 02/07/2016 Provider: EILEEN VINCENT MD Diagnosis: Bipolar disorder , current episode depressed, moderate 1 tablet every morning Last Documented On 12/09/2022 5:29PM By Radha Vincent MD ; [facility] LaMICtal 150 MG OR TABS 07/29/2015 - 03/13/2016 Provider: EILEEN CONNORS MD Diagnosis: Bipolar disord, crnt epsd depress, mild or mod severt, unsp One tablet twice a day Last Documented On 12/09/2022 5:29PM By Radha Vincent MD ; [facility] busPIRone HCl 10 MG OR TABS 07/29/2015 - 09/20/2016 Provider: EILEEN VINCENT MD Diagnosis: Generalized anxi ety disorder One tablet three times a day Last Documented On 12/09/2022 5:29PM By Radha Vincent MD ; [facility] busPIRone HCl 10 MG OR TABS 05/24/2015 - 07/29/2015 Provider: EILEEN VINCENT MD Diagnosis: Generalized anxi ety disorder One tablet three times a day Last Documented On 12/09/2022 5:29PM By Radha Vincent MD ; [facility] Namenda XR 28 MG OR CP24 05/24/2015 - 07/29/2015 Provider: EILEEN CONNORS MD Diagnosis: Unsp dementia, u nsp severity, without beh/psych/mood/anx 1 Capsule every morning Last Documented On 12/09/2022 5:29PM By Radha Vincent MD ; [facility] LaMICtal 150 MG OR TABS 05/24/2015 - 07/29/2015 Provider: EILEEN CONNORS MD Diagnosis: Bipolar disord, crnt epsd depress, mild or mod severt, unsp One tablet twice a day Last Documented On 12/09/2022 5:29PM By Radha Vincent MD ; [facility] Wellbutrin XL 300 MG OR TB24 05/24/2015 - 07/29/2015 Provider: EILEEN VINCENT MD Diagnosis: Bipolar disorder , current episode depressed, moderate 1 tablet every morning Last Documented On 12/09/2022 5:29PM By Radha Vincent MD ; [facility] traZODone HCl 50 MG OR TABS 05/24/2015 - 07/29/2015 Provider: EILEEN CONNORS MD Diagnosis: Oth insomnia not due to a substance or known physiol cond One tablet at bed time Last Documented On 12/09/2022 5:29PM By Radha Vincent MD ; [facility] Aricept 23 MG OR TABS 05/24/2015 - 07/29/2015 Provider: EILEEN CONNORS MD Diagnosis: Unsp dementia, u nsp severity, without beh/psych/mood/anx One tablet daily Last Documented On 12/09/2022 5:29PM By Radha Vincent MD ; [facility] Escitalopram Oxalate 20 MG OR TABS 05/24/2015 - 07/29/2015 Provider: EILEEN VINCENT MD Diagnosis: Generalized anxi ety disorder One tablet daily Last Documented On 12/09/2022 5:29PM By Radha Vincent MD ; [facility] Synthroid 88 MCG OR TABS 02/16/2015 - 01/16/2017 Provi itz: Diagnosis: Hypothyroidism, unspecified 1 tablet daily Last Documented On 12/09/2022 5:29PM By WILMER REDDY LPN ; [facility] busPIRone HCl 10 MG OR TABS 01/28/2015 - 05/24/2015 Provider: EILEEN VINCENT MD Diagnosis: GENERALIZED ANXI ETY DIS One tablet three times a day Last Documented On 12/09/2022 5:29PM By Radha Vincent MD ; [facility] Namenda XR 28 MG OR CP24 01/28/2015 - 05/24/2015 Provider: EILEEN CONNORS MD Diagnosis: PRESENILE HANNY IA 1 Capsule every morning Last Documented On 12/09/2022 5:29PM By Radha Vincent MD ; [facility] LaMICtal 150 MG OR TABS 01/28/2015 - 05/24/2015 Provider: EILEEN CONNORS MD Diagnosis: BIPOL I CUR DEPR ES NOS One tablet twice a day Last Documented On 12/09/2022 5:29PM By Radha Vincent MD ; [facility] Wellbutrin XL 300 MG OR TB24 01/28/2015 - 05/24/2015 Provider: EILEEN VINCENT MD Diagnosis: BIPOL I CUR DEPR ES NOS 1 tablet every morning Last Documented On 12/09/2022 5:29PM By Radha Vincent MD ; [facility] traZODone HCl 50 MG OR TABS 01/28/2015 - 05/24/2015 Provider: EILEEN CONNORS MD Diagnosis: PERSISTENT INSOM MURIEL One tablet at bed time Last Documented On 12/09/2022 5:29PM By Radha Vincent MD ; [facility] Escitalopram Oxalate 20 MG OR TABS 01/28/2015 - 05/24/2015 Provider: EILEEN VINCENT MD Diagnosis: GENERALIZED ANXI ETY DIS One tablet daily Last Documented On 12/09/2022 5:29PM By Radha Vincent MD ; [facility] Aricept 23 MG OR TABS 01/28/2015 - 05/24/2015 Provider : EILEEN VINCENT MD Diagnosis: PRESENILE HANNY IA One tablet daily Last Documented On 12/09/2022 5:29PM By Radha Vincent MD ; [facility] traZODone HCl 50 MG OR TABS 12/09/2014 - 01/28/2015 Provider: EILEEN CONNORS MD Diagnosis: PERSISTENT INSOM MURIEL One tablet at bed time Last Documented On 12/09/2022 5:29PM By Radha Vincent MD ; [facility] traZODone HCl 50 MG OR TABS 11/06/2014 - 12/09/2014 Provider: EILEEN CONNORS MD Diagnosis: PERSISTENT INSOM MURIEL One tablet at bed time Last Documented On 12/09/2022 5:29PM By Radha Vincent MD ; [facility] busPIRone HCl 10 MG OR TABS 10/15/2014 - 01/28/2015 Provider: EILEEN VINCENT MD Diagnosis: GENERALIZED ANXI ETY DIS as needed for anxiety Last Documented On 12/09/2022 5:29PM By Radha Vincent MD ; [facility] Namenda XR 28 MG OR CP24 10/15/2014 - 01/28/2015 Provider: EILEEN CONNORS MD Diagnosis: PRESENILE HANNY IA Last Documented On 12/09/2022 5:29PM By Radha Vincent MD ; [facility] LaMICtal 150 MG OR TABS 10/15/2014 - 01/28/2015 Provider: EILEEN CONNORS MD Diagnosis: BIPOL I CUR DEPR ES NOS Last Documented On 12/09/2022 5:29PM By Radha Vincent MD ; [facility] traZODone HCl 50 MG OR TABS 10/15/2014 - 11/06/2014 Provider: EILEEN CONNORS MD Diagnosis: PERSISTENT INSOM MURIEL Last Documented On 12/09/2022 5:29PM By Radha Vincent MD ; [facility] Aricept 23 MG OR TABS 10/15/2014 - 01/28/2015 Provider : EILEEN VINCENT MD Diagnosis: PRESENILE HANNY IA Last Documented On 12/09/2022 5:29PM By Radha Vincent MD ; [facility] Escitalopram Oxalate 20 MG OR TABS 10/15/2014 - 01/28/2015 Provider: EILEEN VINCENT MD Diagnosis: GENERALIZED ANXI ETY DIS Last Documented On 12/09/2022 5:29PM By Radha Vincent MD ; [facility] Wellbutrin XL 300 MG OR TB24 10/15/2014 - 01/28/2015 Provider: EILEEN VINCENT MD Diagnosis: BIPOL I CUR DEPR ES NOS Last Documented On 12/09/2022 5:29PM By Radha Vincent MD ; [facility] Fetzima Titration 20 & 40 MG OR C4PK 07/16/2014 - 10/15/2014 Provider: EILEEN VINCENT MD Diagnosis: GENERALIZED ANXI ETY DIS 20 mg in am for 2 days then 40 mg in am thereafter -- 50 samples given 2 months samples Last Documented On 12/09/2022 5:29PM By Radha Vincent MD ; [facility] Fetzima 40 MG OR CP24 07/16/2014 - 10/15/2014 Provider: EILEEN CONNORS MD Diagnosis: GENERALIZED ANXI ETY DIS Last Documented On 12/09/2022 5:29PM By Radha Vincent MD ; [facility] Wellbutrin XL 150 MG OR TB24 07/16/2014 - 05/24/2015 Provider: EILEEN VINCENT MD Diagnosis: BIPOL I CUR DEPR ES NOS Last Documented On 12/09/2022 5:29PM By Radha Vincent MD ; [facility] traZODone HCl 50 MG OR TABS 07/16/2014 - 10/15/2014 Provider: EILEEN CONNORS MD Diagnosis: PERSISTENT INSOM MURIEL Last Documented On 12/09/2022 5:29PM By Radha Vincent MD ; [facility] LaMICtal 150 MG OR TABS 07/16/2014 - 10/15/2014 Provider: EILEEN CONNORS MD Diagnosis: BIPOL I CUR DEPR ES NOS Last Documented On 12/09/2022 5:29PM By Radha Vincent MD ; [facility] Namenda XR 28 MG OR CP24 07/16/2014 - 10/15/2014 Provider: EILEEN CONNORS MD Diagnosis: PRESENILE HANNY IA Last Documented On 12/09/2022 5:29PM By Radha Vincent MD ; [facility] busPIRone HCl 10 MG OR TABS 07/16/2014 - 10/15/2014 Provider: EILEEN VINCENT MD Diagnosis: GENERALIZED ANXI ETY DIS as needed for anxiety Last Documented On 12/09/2022 5:29PM By Radha Vincent MD ; [facility] Aricept 23 MG OR TABS 07/16/2014 - 10/15/2014 Provider : EILEEN VINCENT MD Diagnosis: PRESENILE HANNY IA Last Documented On 12/09/2022 5:29PM By Radha Vincent MD ; [facility] Escitalopram Oxalate 20 MG OR TABS 07/16/2014 - 10/15/2014 Provider: EILEEN VINCENT MD Diagnosis: GENERALIZED ANXI ETY DIS Last Documented On 12/09/2022 5:29PM By Radha Vincent MD ; [facility] Fetzima Titration 20 & 40 MG OR C4PK 06/01/2014 - 07/16/2014 Provider: EILEEN VINCENT MD Diagnosis: GENERALIZED ANXI ETY DIS 20 mg in am for 2 days then 40 mg in am thereafter -- 50 samples given Last Documented On 12/09/2022 5:29PM By Radha Vincent MD ; [facility] busPIRone HCl 10 MG OR TABS 05/20/2014 - 04/18/2023 Pr ovider: URIEL LOEN MD Diagnosis: TAKE 1 TABLET 3 TIMES DAILY NEEDED FOR ANXIET Y Last Documented On 04/18/2023 10:30AM By WISAM CASH ; [facility] busPIRone HCl 10 MG OR TABS 04/30/2014 - 07/16/2014 Provider: EILEEN VINCENT MD Diagnosis: GENERALIZED ANXI ETY DIS as needed for anxiety --was told to take extra Buspar when she has bad thought since she is only taking it 2 x a day Last Documented On 12/09/2022 5:29PM By Radha Vincent MD ; [facility] traZODone HCl 50 MG OR TABS 04/07/2014 - 07/16/2014 Provider: EILEEN CONNORS MD Diagnosis: PERSISTENT INSOM MURIEL Last Documented On 12/09/2022 5:29PM By Radha Vincent MD ; [facility] Namenda XR 28 MG OR CP24 04/07/2014 - 07/16/2014 Provider: EILEEN CONNORS MD Diagnosis: PRESENILE HANNY IA Last Documented On 12/09/2022 5:29PM By Radha Vincent MD ; [facility] Escitalopram Oxalate 20 MG OR TABS 04/07/2014 - 07/16/2014 Provider: EILEEN VINCENT MD Diagnosis: GENERALIZED ANXI ETY DIS Last Documented On 12/09/2022 5:29PM By Radha Vincent MD ; [facility] busPIRone HCl 10 MG OR TABS 04/07/2014 - 04/30/2014 Provider: EILEEN VINCENT MD Diagnosis: GENERALIZED ANXI ETY DIS as needed for anxiety Last Documented On 12/09/2022 5:29PM By Radha Vincent MD ; [facility] LaMICtal 150 MG OR TABS 04/07/2014 - 07/16/2014 Provider: EILEEN CONNORS MD Diagnosis: BIPOL I CUR DEPR ES NOS Last Documented On 12/09/2022 5:29PM By Radha Vincent MD ; [facility] Wellbutrin XL 150 MG OR TB24 04/07/2014 - 07/16/2014 Provider: EILEEN VINCENT MD Diagnosis: BIPOL I CUR DEPR ES NOS Last Documented On 12/09/2022 5:29PM By Radha Vincent MD ; [facility] Aricept 23 MG OR TABS 04/07/2014 - 07/16/2014 Provider : EILEEN VINCENT MD Diagnosis: PRESENILE HANNY IA Last Documented On 12/09/2022 5:29PM By Radha Vincent MD ; [facility] traZODone HCl 50 MG OR TABS 02/09/2014 - 04/07/2014 Provider: EILEEN CONNORS MD Diagnosis: PERSISTENT INSOM MURIEL Last Documented On 12/09/2022 5:29PM By Radha Vincent MD ; [facility] Lipitor 20 MG OR TABS 02/09/2014 - 11/10/2015 Provider : Diagnosis: 1 every p.m. Last Documented On 12/09/2022 5:29PM By TERRI CASH ; [facility] Aspirin 81 MG OR TABS 02/09/2014 - 11/10/2015 Provider : Diagnosis: 1 every morning Last Documented On 12/09/2022 5:29PM By TERRI CASH ; [facility] Lasix 20 MG OR TABS 02/09/2014 - 11/10/2015 Provider: Diagnosis: 1 every morning Last Documented On 12/09/2022 5:29PM By TERRI CASH ; [facility] Wellbutrin XL 150 MG OR TB24 02/09/2014 - 04/07/2014 Provider: EILEEN VINCENT MD Diagnosis: BIPOL I CUR DEPR ES NOS 1 tablet every morning Last Documented On 12/09/2022 5:29PM By Radha Vincent MD ; [facility] Aricept 23 MG OR TABS 02/09/2014 - 04/07/2014 Provider : EILEEN VINCENT MD Diagnosis: PRESENILE HANNY IA Last Documented On 12/09/2022 5:29PM By Radha Vincent MD ; [facility] Escitalopram Oxalate 20 MG OR TABS 02/09/2014 - 04/07/2014 Provider: EILEEN VINCENT MD Diagnosis: GENERALIZED ANXI ETY DIS Last Documented On 12/09/2022 5:29PM By Radha Vincent MD ; [facility] busPIRone HCl 10 MG OR TABS 02/09/2014 - 04/07/2014 Provider: EILEEN VINCENT MD Diagnosis: GENERALIZED ANXI ETY DIS as needed for anxiety Last Documented On 12/09/2022 5:29PM By Radha Vincent MD ; [facility] Namenda XR 28 MG OR CP24 02/09/2014 - 04/07/2014 Provider: EILEEN CONNORS MD Diagnosis: PRESENILE HANNY IA Last Documented On 12/09/2022 5:29PM By Radha Vincent MD ; [facility] Terbinafine HCl 250 MG OR TABS 12/18/2013 - 04/07/2014 Provider: Diagnosis: one tablet daily Last Documented On 12/09/2022 5:29PM By TERRI CASH ; [facility] traZODone HCl 50 MG OR TABS 11/22/2013 - 02/09/2014 Provider: EILEEN CONNORS MD Diagnosis: PERSISTENT INSOM MURIEL Last Documented On 12/09/2022 5:29PM By Radha Vincent MD ; [facility] Wellbutrin XL 150 MG OR TB24 11/22/2013 - 02/09/2014 Provider: EILEEN VINCENT MD Diagnosis: BIPOL I CUR DEPR ES NOS 1 tablet every morning Last Documented On 12/09/2022 5:29PM By Radha Vincent MD ; [facility] Escitalopram Oxalate 20 MG OR TABS 11/22/2013 - 02/09/2014 Provider: EILEEN VINCENT MD Diagnosis: GENERALIZED ANXI ETY DIS Last Documented On 12/09/2022 5:29PM By Radha Vincent MD ; [facility] Aricept 23 MG OR TABS 11/22/2013 - 02/09/2014 Provider : EILEEN VINCENT MD Diagnosis: PRESENILE HANNY IA Last Documented On 12/09/2022 5:29PM By Radha Vincent MD ; [facility] Namenda XR 28 MG OR CP24 11/22/2013 - 02/09/2014 Provider: EILEEN CONNORS MD Diagnosis: PRESENILE HANNY IA Last Documented On 12/09/2022 5:29PM By Radha Vincent MD ; [facility] busPIRone HCl 10 MG OR TABS 11/21/2013 - 02/09/2014 Provider: EILEEN VINCENT MD Diagnosis: GENERALIZED ANXI ETY DIS as needed for anxiety Last Documented On 12/09/2022 5:29PM By Radha Vincent MD ; [facility] LaMICtal 150 MG OR TABS 11/21/2013 - 04/07/2014 Provider: EILEEN CONNORS MD Diagnosis: BIPOL I CUR DEPR ES NOS Last Documented On 12/09/2022 5:29PM By Radha Vincent MD ; [facility] traZODone HCl 50 MG OR TABS 11/11/2013 - 11/21/2013 Pr ovider: Diagnosis: Last Documented On 12/09/2022 5:29PM By TERRI CASH ; [facility] Fanapt 2 MG OR TABS 10/23/2013 - 10/23/2013 Provider: EILEEN VINCENT MD Diagnosis: BIPOL I CUR DEPR ES NOS Last Documented On 12/09/2022 5:29PM By Radha Vincent MD ; [facility] Fanapt 2 MG OR TABS 10/23/2013 - 11/22/2013 Provider: EILEEN VINCENT MD Diagnosis: BIPOL I CUR DEPR ES NOS pt given samples of 1 mg bid then 2 mg bid --4 tablets samples Last Documented On 12/09/2022 5:29PM By Radha Vincent MD ; [facility] Namenda XR 28 MG OR CP24 10/23/2013 - 11/21/2013 Provider: EILEEN CONNORS MD Diagnosis: PRESENILE HANNY IA Last Documented On 12/09/2022 5:29PM By Radha Vincent MD ; [facility] busPIRone HCl 10 MG OR TABS 10/23/2013 - 11/21/2013 Provider: EILEEN VINCENT MD Diagnosis: GENERALIZED ANXI ETY DIS as needed for anxiety Last Documented On 12/09/2022 5:29PM By Radha Vincent MD ; [facility] Escitalopram Oxalate 20 MG OR TABS 10/23/2013 - 11/21/2013 Provider: EILEEN VINCENT MD Diagnosis: GENERALIZED ANXI ETY DIS Last Documented On 12/09/2022 5:29PM By Radha Vincent MD ; [facility] Aricept 23 MG OR TABS 10/23/2013 - 11/21/2013 Provider : EILEEN VINCENT MD Diagnosis: PRESENILE HANNY IA Last Documented On 12/09/2022 5:29PM By Radha Vincent MD ; [facility] Wellbutrin XL 150 MG OR TB24 10/23/2013 - 11/21/2013 Provider: EILEEN VINCENT MD Diagnosis: BIPOL I CUR DEPR ES NOS 1 tablet every morning Last Documented On 12/09/2022 5:29PM By Radha Vincent MD ; [facility] lamoTRIgine 200 MG OR TABS 10/23/2013 - 11/22/2013 Provider: EILEEN VINCENT MD Diagnosis: BIPOL I CUR DEPR ES NOS Last Documented On 12/09/2022 5:29PM By Radha Vincent MD ; [facility] Aricept 23 MG OR TABS 07/28/2013 - 10/23/2013 Provider : EILEEN VINCENT MD Diagnosis: PRESENILE HANNY IA Last Documented On 12/09/2022 5:29PM By Radha Vincent MD ; [facility] Escitalopram Oxalate 20 MG OR TABS 07/28/2013 - 10/23/2013 Provider: EILEEN VINCENT MD Diagnosis: GENERALIZED ANXI ETY DIS Last Documented On 12/09/2022 5:29PM By Radha Vincent MD ; [facility] Wellbutrin XL 150 MG OR TB24 07/28/2013 - 10/23/2013 Provider: EILEEN VINCENT MD Diagnosis: BIPOL I CUR DEPR ES NOS 1 tablet every morning Last Documented On 12/09/2022 5:29PM By Radha Vnicent MD ; [facility] lamoTRIgine 200 MG OR TABS 07/28/2013 - 10/23/2013 Provider: EILEEN VINCENT MD Diagnosis: BIPOL I CUR DEPR ES NOS Last Documented On 12/09/2022 5:29PM By Radha Vincent MD ; [facility] busPIRone HCl 10 MG OR TABS 07/28/2013 - 10/23/2013 Provider: EILEEN VINCENT MD Diagnosis: GENERALIZED ANXI ETY DIS as needed for anxiety Last Documented On 12/09/2022 5:29PM By Radha Vincent MD ; [facility] Namenda XR 28 MG OR CP24 07/28/2013 - 10/23/2013 Provider: EILEEN CONNORS MD Diagnosis: PRESENILE HANNY IA Last Documented On 12/09/2022 5:29PM By Radha Vincent MD ; [facility] Neupro 1 MG/24HR TD PT24 07/28/2013 - 10/23/2013 Provider: EILEEN CONNORS MD Diagnosis: Restless Legs Sy ndrome apply 1 patch to skin of upp er arm, flank etc...once a day--totate sites Last Documented On 12/09/2022 5:29PM By Radha Vincent MD ; [facility] Diclofenac Sodium 75 MG OR TBEC 07/28/2013 - 4 Provider: Diagnosis: Last Documented On 12/09/2022 5:29PM By TERRI CASH ; [facility] Wellbutrin XL 150 MG OR TB24 05/07/2013 - 07/28/2013 Provider: EILEEN VINCENT MD Diagnosis: BIPOL I CUR DEPR ES NOS 1 tablet every morning Last Documented On 12/09/2022 5:29PM By Radha Vincent MD ; [facility] lamoTRIgine 200 MG OR TABS 05/07/2013 - 07/28/2013 Provider: EILEEN VINCENT MD Diagnosis: BIPOL I CUR DEPR ES NOS Last Documented On 12/09/2022 5:29PM By Radha Vincent MD ; [facility] Dicyclomine HCl 10 MG OR CAPS 05/07/2013 - 11/10/2015 Provider: Diagnosis: Last Documented On 12/09/2022 5:29PM By Conversion User ; [facility] Aricept 23 MG OR TABS 05/07/2013 - 05/07/2013 Provider : Diagnosis: It is now 28mg qd Last Documented On 12/09/2022 5:29PM By Conversion User ; [facility] Aricept 23 MG OR TABS 05/07/2013 - 07/28/2013 Provider : EILEEN VINCENT MD Diagnosis: PRESENILE HANNY IA It is now 28mg qd Last Documented On 12/09/2022 5:29PM By Radha Vincent MD ; [facility] Namenda 10 MG OR TABS 05/07/2013 - 11/21/2013 Provider : EILEEN VINCENT MD Diagnosis: PRESENILE HANNY IA Namenda XR 28 mg a day for 9 0 days and 3 refill--pt started 05/07/13 Last Documented On 12/09/2022 5:29PM By Radha Vincent MD ; [facility] Oleptro 150 MG OR TB24 05/07/2013 - 10/23/2013 Provider: EILEEN CONNORS MD Diagnosis: GENERALIZED ANXI ETY DIS Last Documented On 12/09/2022 5:29PM By Radha Vincent MD ; [facility] Escitalopram Oxalate 20 MG OR TABS 05/07/2013 - 07/28/2013 Provider: EILEEN VINCENT MD Diagnosis: GENERALIZED ANXI ETY DIS Last Documented On 12/09/2022 5:29PM By Radha Vincent MD ; [facility] Aricept 23 MG OR TABS 05/07/2013 - 05/07/2013 Provider : Diagnosis: Last Documented On 12/09/2022 5:29PM By Conversion User ; [facility] Escitalopram Oxalate 20 MG OR TABS 01/28/2013 - 05/07/2013 Provider: EILEEN VINCENT MD Diagnosis: GENERALIZED ANXI ETY DIS Last Documented On 12/09/2022 5:29PM By Radha Vincent MD ; [facility] Synthroid 88 MCG OR TABS 01/28/2013 - 11/10/2015 Provi itz: Diagnosis: Last Documented On 12/09/2022 5:29PM By TERRI CASH ; [facility] Vitamin D 25 MCG (1000 UT) OR TABS 01/28/2013 - Provider: Diagnosis: 2 a day Last Documented On 12/09/2022 5:29PM By Radha Vincent MD ; [facility] Wellbutrin XL 150 MG OR TB24 01/28/2013 - 05/07/2013 Provider: EILEEN VINCENT MD Diagnosis: GENERALIZED ANXI ETY DIS 1 tablet every morning Last Documented On 12/09/2022 5:29PM By Radha Vincent MD ; [facility] Namenda 10 MG OR TABS 01/28/2013 - 05/07/2013 Provider : EILEEN VINCENT MD Diagnosis: PRESENILE HANNY IA Finish current supply of 10 mg bid and then start Namenda XR 28 mg a day for 90 days and 3 refill Last Documented On 12/09/2022 5:29PM By Radha Vincent MD ; [facility] Aricept 23 MG OR TABS 01/28/2013 - 05/07/2013 Provider : EILEEN VINCENT MD Diagnosis: PRESENILE HANNY IA Last Documented On 12/09/2022 5:29PM By Radha Vincent MD ; [facility] Latuda 20 MG OR TABS 01/28/2013 - 05/07/2013 Provider: EILEEN VINCENT MD Diagnosis: BIPOL I CUR DEPR ES NOS Last Documented On 12/09/2022 5:29PM By Radha Vincent MD ; [facility] Oleptro 150 MG OR TB24 01/28/2013 - 05/07/2013 Provider: EILEEN CONNORS MD Diagnosis: GENERALIZED ANXI ETY DIS Last Documented On 12/09/2022 5:29PM By Radha Vincent MD ; [facility] Atorvastatin Calcium 20 MG OR TABS 01/28/2013 - 2012 Provider: Diagnosis: Last Documented On 12/09/2022 5:29PM By TERRI CASH ; [facility] lamoTRIgine 200 MG OR TABS 01/28/2013 - 05/07/2013 Provider: EILEEN VINCENT MD Diagnosis: BIPOL I CUR DEPR ES NOS Last Documented On 12/09/2022 5:29PM By Radha Vincent MD ; [facility] lamoTRIgine 200 MG OR TABS 11/08/2012 - 01/28/2013 Provider: EILEEN VINCENT MD Diagnosis: BIPOL I CUR DEPR ES NOS Last Documented On 12/09/2022 5:29PM By Radha Vincent MD ; [facility] Namenda 10 MG OR TABS 11/08/2012 - 01/28/2013 Provider : EILEEN VINCENT MD Diagnosis: PRESENILE HANNY IA Last Documented On 12/09/2022 5:29PM By Radha Vincent MD ; [facility] Aricept 23 MG OR TABS 11/08/2012 - 01/28/2013 Provider : EILEEN VINCENT MD Diagnosis: PRESENILE HANNY IA Last Documented On 12/09/2022 5:29PM By Radha Vincent MD ; [facility] Oleptro 150 MG OR TB24 11/08/2012 - 01/28/2013 Provider: EILEEN CONNORS MD Diagnosis: GENERALIZED ANXI ETY DIS Last Documented On 12/09/2022 5:29PM By Radha Vincent MD ; [facility] Escitalopram Oxalate 20 MG OR TABS 11/08/2012 - 01/28/2013 Provider: EILEEN VINCENT MD Diagnosis: GENERALIZED ANXI ETY DIS Last Documented On 12/09/2022 5:29PM By Radha Vincent MD ; [facility] Latuda 20 MG OR TABS 11/08/2012 - 01/28/2013 Provider: EILEEN VINCENT MD Diagnosis: BIPOL I CUR DEPR ES NOS Last Documented On 12/09/2022 5:29PM By Radha Vincent MD ; [facility] Oleptro 150 MG OR TB24 09/04/2012 - 11/08/2012 Provider: EILEEN CONNORS MD Diagnosis: GENERALIZED ANXI ETY DIS Last Documented On 12/09/2022 5:29PM By Radha Vincent MD ; [facility] Wellbutrin XL 150 MG OR TB24 09/04/2012 - 01/28/2013 Provider: EILEEN VINCENT MD Diagnosis: BIPOL I CURR DEP W/O PSY 1 tablet every morning Last Documented On 12/09/2022 5:29PM By Radha Vincent MD ; [facility] lamoTRIgine 200 MG OR TABS 09/04/2012 - 11/08/2012 Provider: EILEEN VINCENT MD Diagnosis: BIPOL I CURR DEP W/O PSY Last Documented On 12/09/2022 5:29PM By Radha Vincent MD ; [facility] Namenda 10 MG OR TABS 09/04/2012 - 11/08/2012 Provider : EILEEN VINCENT MD Diagnosis: PRESENILE HANNY IA Last Documented On 12/09/2022 5:29PM By Radha Vincent MD ; [facility] Aricept 23 MG OR TABS 09/04/2012 - 11/08/2012 Provider : EILEEN VINCENT MD Diagnosis: PRESENILE HANNY IA Last Documented On 12/09/2022 5:29PM By Radha Vincent MD ; [facility] Latuda 20 MG OR TABS 09/04/2012 - 11/08/2012 Provider: EILEEN VINCENT MD Diagnosis: BIPOL I CURR DEP W/O PSY Last Documented On 12/09/2022 5:29PM By Radha Vincent MD ; [facility] Escitalopram Oxalate 20 MG OR TABS 09/04/2012 - 11/08/2012 Provider: EILEEN VINCENT MD Diagnosis: GENERALIZED ANXI ETY DIS Last Documented On 12/09/2022 5:29PM By Radha Vincent MD ; [facility] lamoTRIgine 200 MG OR TABS 08/07/2012 - 09/04/2012 Provider: EILEEN VINCENT MD Diagnosis: BIPOL I CURR DEP W/O PSY Last Documented On 12/09/2022 5:29PM By Radha Vincent MD ; [facility] Wellbutrin XL 150 MG OR TB24 08/07/2012 - 09/04/2012 Provider: EILEEN VINCENT MD Diagnosis: BIPOL I CURR DEP W/O PSY 1 tablet every morning Last Documented On 12/09/2022 5:29PM By Radha Vincent MD ; [facility] Latuda 20 MG OR TABS 08/07/2012 - 09/04/2012 Provider: EILEEN VINCENT MD Diagnosis: BIPOL I CURR DEP W/O PSY Last Documented On 12/09/2022 5:29PM By Radha Vincent MD ; [facility] Escitalopram Oxalate 20 MG OR TABS 08/07/2012 - 09/04/2012 Provider: EILEEN VINCENT MD Diagnosis: GENERALIZED ANXI ETY DIS Last Documented On 12/09/2022 5:29PM By Radha Vincent MD ; [facility] Oleptro 150 MG OR TB24 08/07/2012 - 09/04/2012 Provider: EILEEN CONNORS MD Diagnosis: GENERALIZED ANXI ETY DIS Last Documented On 12/09/2022 5:29PM By Radha Vincent MD ; [facility] Namenda 10 MG OR TABS 08/07/2012 - 09/04/2012 Provider : EILEEN VINCENT MD Diagnosis: PRESENILE HANNY IA Last Documented On 12/09/2022 5:29PM By Radha Vincent MD ; [facility] Aricept 23 MG OR TABS 08/07/2012 - 09/04/2012 Provider : EILEEN VINCENT MD Diagnosis: PRESENILE HANNY IA Last Documented On 12/09/2022 5:29PM By Radha Vincent MD ; [facility] Aricept 23 MG OR TABS 08/02/2012 - 08/07/2012 Provider : Diagnosis: Last Documented On 12/09/2022 5:29PM By KIRA OSUNA ; [facility] Latuda 20 MG OR TABS 08/02/2012 - 08/07/2012 Provider: Diagnosis: Last Documented On 12/09/2022 5:29PM By KIRA OSUNA ; [facility] Calcium 600/Vitamin D 600-400 MG-UNIT OR TABS 08/02/20 - 11/10/2015 Provider: Diagnosis: 2 tablets daily Last Documented On 12/09/2022 5:29PM By KIRA OSUNA ; [facility] Namenda 10 MG OR TABS 08/02/2012 - 08/07/2012 Provider : Diagnosis: Last Documented On 12/09/2022 5:29PM By KIRA OSUNA ; [facility] Aspirin 81 MG OR CHEW 08/02/2012 - 01/28/2013 Provider : Diagnosis: Last Documented On 12/09/2022 5:29PM By KIRA OSUNA ; [facility] Oleptro 150 MG OR TB24 08/02/2012 - 08/07/2012 Provide r: Diagnosis: Last Documented On 12/09/2022 5:29PM By KIRA OSUNA ; [facility] lamoTRIgine 200 MG OR TABS 08/02/2012 - 08/07/2012 Pro vider: Diagnosis: Last Documented On 12/09/2022 5:29PM By KIRA OSUNA ; [facility] buPROPion HCl ER (SR) 150 MG OR TB12 08/02/2012 - 07/14 Provider: Diagnosis: every morning Last Documented On 12/09/2022 5:29PM By KIRA OSUNA ; [facility] Escitalopram Oxalate 20 MG OR TABS 08/02/2012 - 2011 Provider: Diagnosis: Last Documented On 12/09/2022 5:29PM By KIRA OSUNA ; [facility] amLODIPine Besy-Benazepril HCl 5-10 MG OR CAPS 1 10/03/2011 - 11/10/2015 Provider: Diagnosis: Last Documented On 12/09/2022 5:29PM By KIRA OSUNA ; [facility] Omeprazole 20 MG OR TBEC 08/02/2012 - 11/10/2015 Provi itz: Diagnosis: Last Documented On 12/09/2022 5:29PM By KIRA OSUNA ; [facility] Levothyroxine Sodium 88 MCG OR TABS 08/02/2012 - 05/07 Provider: Diagnosis: Last Documented On 12/09/2022 5:29PM By KIRA OSUNA ; [facility] Furosemide 20 MG OR TABS 08/02/2012 - 02/09/2014 Provi itz: Diagnosis: take 1 tab once daily prn for edema Last Documented On 12/09/2022 5:29PM By KIRA OSUNA ; [facility] Diclofenac Sodium 75 MG OR TBEC 08/02/2012 - 3 Provider: Diagnosis: take one tablet twice a day Last Documented On 12/09/2022 5:29PM By KIRA OSUNA ; [facility] Metoprolol Tartrate 25 MG OR TABS 08/02/2012 - 016 Provider: Diagnosis: take one-half tablet 2 times a day Last Documented On 12/09/2022 5:29PM By KIRA OSUNA ; [facility] Atorvastatin Calcium 10 MG OR TABS 08/02/2012 - 2012 Provider: Diagnosis: Last Documented On 12/09/2022 5:29PM By KIRA OSUNA ; [facility] Medications Administered Includes: Administered Medications in patient's chart No Administered Medications Recorded Vital Signs Includes: Vital Signs from 09/04/2023 through 09/04/2024 Vital Name 12/19/2023 11:41A 09/14/2023 11: 36A Height (in) 63 63 Weight (lb) 160 163 Body Mass Index 28.3 28.9 Body Surface Area 1.8 1.8 Blood Pressure Sitting L 130/80 149/84 BP Cuff Size Regular Regular Pulse Rate-Sitting (bpm) 93 82 Pulse Rhythm Regular Regular Note: self reported vitals self report ed vitals Last Documented: On 12/19/2023 11:42A M ; [facility] On 09/14/2023 11:36AM ; [facility] Results Includes: Results from 09/04/2023 through 09/04/2024 No Results Recorded For Specified Dates History of Present Illness History of Present Illness not supported for this document type No History of Present Illness Recorded Social History Description Last Updated Tobacco non-user - Never smoker 12/19/19 24 Last Documented On 4 4:37AM ; [facility] Smoking Status Unknown Procedures and Surgical History Includes: Procedures from 09/04/2023 through 09/04/2024 Procedures Code Diagnosis Performing Provider Service Location Service Date PSYCHOTHERAPY 30 MIN W/ [place] [address] Bipolar disorder, unspecified, Generalized anxiety disorder, Attention-deficit hyperactivity disorder, other type, Restless legs syndrome EILEEN VINCENT MD [facility]-PS[facility] 12/19/2023 Last Documented On 4 5:27PM ; [facility] PSYCHOTHERAPY 30 MIN W/ [place] [address] Bipolar disorder, unspecified, Generalized anxiety disorder, Attention-deficit hyperactivity disorder, other type, Psychophysiologic insomnia EILEEN VINCENT MD [facility]-Y 09/14/2023 Last Documented On 4 5:03PM ; [facility] Medical History Includes: Medical History in patient's [...] esolved Last Documented On 9 1:33PM ; [facility] Sulfa Antibiotics Allergy 08/02/2012 A ctive Last Documented On 4 11:08AM ; [facility] Note: Imported from external source. Neupro Allergy rash 10/23/2013 Active Last Documented On 4 11:08AM ; [facility] Note: Imported from external source. Encounters Includes: Encounters from 09/04/2023 through 09/04/2024 Encounter Provider Location Date Check-In Time Check-Out Time Diagnosis [facility] ESTABLISHED EILEEN VINCENT MD [facility] 024 11:02AM 07/03/2012 11:59PM Generalized Anxiety Disorder,Nonorga deonte Sleep Apnea,Restless Legs Syndrome,Dementi a,Psychophysiolo gical Insomnia,Bipolar I Disorder,Adult Attention Deficit Hyperactivity Disorder,Mild Cognitive Impairment,Depre ssive Disorder, Nos * PHONE CALL EILEEN VINCENT MD [facility] 024 06/29/2023 3:59PM 07/03/2012 11:59PM Dementia * PHONE CALL EIELEN VINCENT MD [facility] 024 06/29/2023 4:10PM 07/03/2012 11:59PM * PHONE CALL EILEEN VINCENT MD [facility] 024 06/29/2023 11:43AM 07/03/2012 11:59PM Adult Attention Deficit Hyperactivity Disorder * PHONE CALL EILEEN VINCENT MD [facility] 024 06/29/2023 2:36PM 07/03/2012 11:59PM * PHONE CALL EILEEN VINCENT MD [facility] 024 06/29/2023 10:25AM 07/03/2012 11:59PM TELEHEALTH ADULT PSYCH ESTABLISHED EILEEN VINCENT MD [facility] 024 06/29/2023 11:08AM 07/03/2012 11:59PM Generalized Anxiety Disorder,Nonorga deonte Sleep Apnea,Restless Legs Syndrome,Dementi a,Psychophysiolo gical Insomnia,Bipolar I Disorder,Adult Attention Deficit Hyperactivity Disorder,Mild Cognitive Impairment,Depre ssive Disorder, Nos Insurance Includes: Active Insurance Policies Plan Name Member ID Group # Subscriber Relationship Effect kofi Dates 1 - [facility] [id number] LANA DARBY Self 2 - [facility] [id number] INGRID DARBY 0 - Unknown Clinical Notes Includes: Signed Clinical Notes starting from 09/01/2022 * Progress note Date Encounter Last Documented by 12/19/2023 TELEHEALTH ADULT PSYCH ESTABLISH ED Last documented on 12/24/2023; 4:37 AM, EILEEN VINCENT MD; [facility] Top of Document Medication [...] twice. I recommended that she sees her assistant kitchen manager because of her IBS and the diarrhea [...] Primary Care Provider: Dr. Emmett Mcgarry -- Hot Die Press Operator Dr. Naveed Lala, DPM -- Distance Education Faculty Liaison Dr. Kirti Springer -- Rig Manager Dr. Keanu Mitchell, DMD -- Dentist Dr. Joshua Hanson, OD -- Senior Program Manager Diagnoses: Area of concern on right breast 12/2023 Hearing loss - wears bilateral hearing aids. Systemic hypertension. Bronchitis - given Zpak 250 mg and Albuterol HFA 90 mcg inhaler on 02/23/22 and given Methylprednisolone Dosepak 4 mg on 02/18/22 Bronchitis - given Albuterol HFA 90 mcg and Tessalon Perles 100 mg 09/03/22 Obstructive sleep apnea -- sleep study done 05/22/13 at [facility] under Dr. Cutler. She was wearing a dental device purchased from [facility] dentistry. Patient does not wear her [...] injuries sustained from fall at her son's [employer] business 08/28/22 Sprain of the left foot [...] going down while she was at the [employer]; she had a nosebleed and a sore right knee; she did not go to the Dr. or ER -- #11 -- patient missed step at the [employer] and fractured her nose; she wore a [...] PREVIOUS PSYCHIATRIC HOSPITALIZATION: She was hospitalized at [facility] in 2008 due to depression; she said that she was suicidal then. She was also hospitalized at [place] at least twice from [id number]. She said again she could not remember the dates. PREVIOUS PSYCHIATRIC TREATMENT: She was under the care of Dr. Arciniega in [place]. PREVIOUS PSYCHIATRIC MEDICATIONS: Lexapro 20mg once a [...] history pt used to work as a [employer], but has been disabled since 2005 due to memory problems. Marital: Marital history --. She was born in [place], [place]. She was raised in [place], [place] and [place], [place]. She was close to her parents while growing up and they were supportive of her. 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 She denied [...] Clinical summary provided to patient. * Call [phone] and /or go to the nearest emergency [...] on 12/12/2023; 5:57 PM, EILEEN VINCENT MD; [facility] Active Problems & Conditions [...] Namzaric. pt phone # for return call: [phone] date/initials: 12/12/23 bk Current Medication - Alendronate [...] PREVIOUS PSYCHIATRIC HOSPITALIZATION: She was hospitalized at [facility] in 2008 due to depression; she said that she was suicidal then. She was also hospitalized at [place] at least twice from [id number]. She said again she could not remember the dates. PREVIOUS PSYCHIATRIC TREATMENT: She was under the care of Dr. Arciniega in [place]. PREVIOUS PSYCHIATRIC MEDICATIONS: Lexapro 20mg once a [...] on 11/08/2023; 5:55 PM, EILEEN VINCENT MD; [facility] Active Problems & Conditions [...] Namzaric? pt phone # for return call: [phone] Date/Initials: 11/08/23 db. Current Medication - Alendronate [...] on 10/31/2023; 11:49 AM, EILEEN VINCENT MD; [facility] Active Problems & Conditions [...] refill of Mydayis to be sent to [facility]. pt phone # for return call: [phone] date/initials: 10/31/2023 bk Current Medication - Alendronate [...] PREVIOUS PSYCHIATRIC HOSPITALIZATION: She was hospitalized at [facility] in 2008 due to depression; she said that she was suicidal then. She was also hospitalized at [place] at least twice from [id number]. She said again she could not remember the dates. PREVIOUS PSYCHIATRIC TREATMENT: She was under the care of Dr. Arciniega in [place]. PREVIOUS PSYCHIATRIC MEDICATIONS: Lexapro 20mg once a [...] on 10/22/2023; 8:51 AM, EILEEN VINCENT MD; [facility] Active Problems & Conditions [...] place. pt phone # for return call: [phone] date/initials: 10/18/23 bk Current Medication - Alendronate [...] PREVIOUS PSYCHIATRIC HOSPITALIZATION: She was hospitalized at [facility] in 2008 due to depression; she said that she was suicidal then. She was also hospitalized at [place] at least twice from 0427-1245. She said again she could not remember the dates. PREVIOUS PSYCHIATRIC TREATMENT: She was under the care of Dr. Arciniega in [place]. PREVIOUS PSYCHIATRIC MEDICATIONS: Lexapro 20mg once a [...] on 09/17/2023; 3:36 PM, EILEEN VINCENT MD; [facility] Active Problems & Conditions [...] normal. pt phone # for return call: [phone] date/initials: 09/17/23 bk Current Medication - Alendronate [...] PREVIOUS PSYCHIATRIC HOSPITALIZATION: She was hospitalized at [facility] in 2008 due to depression; she said that she was suicidal then. She was also hospitalized at [place] at least twice from [id number]. She said again she could not remember the dates. PREVIOUS PSYCHIATRIC TREATMENT: She was under the care of Dr. Arciniega in [place]. PREVIOUS PSYCHIATRIC MEDICATIONS: Lexapro 20mg once a [...] so I suggest she consults with her Rig Manager if it is bothersome to her or ask her PCP about this issue. EndCited * Progress note Date Encounter Last Documented by 09/14/2023 TELEHEALTH ADULT PSYCH ESTABLISH ED Last documented on 09/17/2023; 3:43 AM, EILEEN VINCENT MD; [facility] Top of Document Medication [...] Primary Care Provider: Dr. Emmett Mcgarry -- Hot Die Press Operator Dr. Naveed Lala, DPM -- Distance Education Faculty Liaison Dr. Mere Mitchell -- Rig Manager Dr. Keanu Mitchell, DMD -- Dentist Dr. Joshua Hanson, OD -- Senior Program Manager Diagnoses: Hearing loss - wears bilateral hearing aids. Systemic hypertension. Bronchitis - given Zpak 250 mg and Albuterol HFA 90 mcg inhaler on 02/23/22 and given Methylprednisolone Dosepak 4 mg on 02/18/22 Bronchitis - given Albuterol HFA 90 mcg and Tessalon Perles 100 mg 09/03/22 Obstructive sleep apnea -- sleep study done 05/22/13 at [facility] under Dr. Cutler. She was wearing a dental device purchased from [facility] dentistry. Patient does not wear her [...] injuries sustained from fall at her son's [employer] 08/28/22 Sprain of the left foot Hammer [...] going down while she was at the [employer]; she had a nosebleed and a sore right knee; she did not go to the or ER -- #11 -- patient missed step at the [employer] and fractured her nose; she wore a [...] PREVIOUS PSYCHIATRIC HOSPITALIZATION: She was hospitalized at [facility] in 2008 due to depression; she said that she was suicidal then. She was also hospitalized at [place] at least twice from [id number]. She said again she could not remember the dates. PREVIOUS PSYCHIATRIC TREATMENT: She was under the care of Dr. Arciniega in [place]. PREVIOUS PSYCHIATRIC MEDICATIONS: Lexapro 20mg once a [...] history pt used to work as a [employer], but has been disabled since 2005 due to memory problems. Marital: Marital history --. She was born in [place], [place]. She was raised in [place], [place] and [place], [place]. She was close to her parents while growing up and they were supportive of her. 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 She denied [...] Clinical summary provided to patient. * Call [phone] and /or go to the nearest emergency [...]
--- OUTSIDE RECORDS SUMMARY | 2024-09-04 14:24 | XMS_ITS | Clinical Summary ---
Author Organization [facility] S Address [address] [place] [address] Phone Care Team Providers Care Offbearer Sewer Pipe Name Role Phone RHIANNON DAI, EILEEN JJ [...] Active Last Documented On 7 10:35AM ; [facility] Past Visits Onset Date Resolved Date Provider Condition Status Depressive Disorder, Nos 04/13/2018 EILEEN VINCENT MD Active Last Documented On 8 6:05AM ; [facility] Adult Attention Deficit Hype ractivity Disorder 01/16/2017 EILEEN VINCENT MD Active Last Documented On 7 11:10AM ; [facility] Bipolar I Disorder 03/13/2015 EILEEN BREEN MD Active Last Documented On 5 10:21AM ; [facility] Dementia 02/10/2015 EILEEN VINCENT MD Ac tive Last Documented On 5 10:58AM ; [facility] Generalized Anxiety Disorder 02/10/2015 EILEEN VINCENT MD Active Last Documented On 5 10:22AM ; [facility] Mild cognitive impairment of uncertain or unknown etiology 02/10/2015 EILEEN VINCENT MD Active Last Documented On 5 10:36AM ; [facility] Restless Legs Syndrome 07/28/2013 EILEEN DE L AVEGA MD Active Last Documented On 1 11:20AM ; [facility] Sleep apnea, unspecified 04/14/2013 EILEEN VINCENT MD Active Last Documented On 5 10:51AM ; [facility] Hypothyroidism, unspecified 08/02/2012 EILEEN VINCENT MD Active Last Documented On 5 10:49AM ; [facility] Gastro-esophageal reflux dis ease without esophagitis 08/02/2012 EILEEN VINCENT MD Active Last Documented On 5 10:37AM ; [facility] Fracture of Nasal Bones 08/02/2012 EILEEN VINCENT MD Active Last Documented On 2 11:16AM ; [facility] Hyperlipidemia, unspecified 08/02/2012 EILEEN VINCENT MD Active Last Documented On 5 10:38AM ; [facility] Essential (primary) hypertension 08/02/2012 MET LEONIDES VINCENT MD Active Last Documented On 5 10:38AM ; [facility] Irritable bowel syndrome without diarrhea 08/02/2012 EILEEN VINCENT MD Active Last Documented On 5 10:50AM ; [facility] Plan of Treatment No Plan of Treatment Recorded Assessments Includes: Assessments from this encounter Findings - Psychophysiological insomnia - Last Documented On 07/31/2022 12:03PM ; [facility] Medical Equipment - Implanted Devices Includes: [...] bedti me as needed for sleep Pharmacy: [facility], [address] - Last Documented On 3 11:11AM By Radha Vincent MD ; [facility] Current Medications (continue as prescribed) Mydayis 37.5 MG Oral Capsule Extended Release 24 Hour 12/07/2022 Provider: EILEEN VINCENT MD Diagnosis: Attention-defici t hyperactivity disorder, combined type 1 Capsule every morning Last Documented On 12/07/2022 4:33PM By Radha Vincent MD ; [facility] hydrOXYzine HCl 25 MG Oral Tablet 10/17/2022 Provide r: EILEEN VINCENT MD Diagnosis: 1 tab a day as needed only for itching/anxiety Last Documented On 10/17/2022 7:11PM By Radha Vincent MD ; [facility] Belsomra 10 MG Oral Tablet 09/27/2022 Provider: EILEEN VINCENT MD Diagnosis: Psychophysiologi c insomnia DIRECTED - ONE (1) TAB AT BEDTIME NEEDED FOR SLEEP Last Documented On 3 11:26AM By Radha Vincent MD ; [facility] Escitalopram Oxalate 20 MG Oral Tablet 09/25/2022 Provider: EILEEN VINCENT MD Diagnosis: Generalized anxi ety disorder TAKE ONE TABLET BY MOUTH DAILY Last Documented On 3 10:40AM By Rahda Vincent MD ; [facility] lamoTRIgine 150 MG Oral Tablet 09/25/2022 Provider: EILEEN VINCENT MD Diagnosis: TAKE ONE TABLET BY MOUTH TWO TIMES A DAY Last Documented On 3 10:40AM By Radha Vincent MD ; [facility] rOPINIRole HCl 2 MG Oral Tablet 09/25/2022 Provider: EILEEN VINCENT MD Diagnosis: Restless legs sy ndrome DIRECTED - ONE (1) TAB AT FIVE (5) IN THE EVENING FOR RESTLESS LEGS Last Documented On 3 10:37AM By Radha Vincent MD ; [facility] buPROPion HCl ER (XL) 300 MG Oral Tablet Extended Release 24 Hour 07/03/2022 Provider: EILEEN VINCENT MD Diagnosis: Major depressive disorder, single episode, unspecified 1 tablet every morning Last Documented On 07/03/2022 1:56PM By Radha Vincent MD ; [facility] Alendronate Sodium 70 MG Oral Tablet 06/19/2022 Prov ider: WOLF MANJARREZ MD Diagnosis: 1 tab weekly Last Documented On 2 11:54AM By WISAM CASH ; [facility] traZODone HCl 50 MG Oral Tablet 02/07/2022 Provider: EILEEN VINCENT MD Diagnosis: TAKE ONE (1) OR TWO (2) TABL ETS BY MOUTH AT BEDTIME NEEDED SLEEP Last Documented On 2 10:04AM By Radha Vincent MD ; [facility] Levothyroxine Sodium 100 MCG Oral Capsule 04/14/2020 Provider: GOLDIE MONTES MD Diagnosis: 1 tab daily Last Documented On 0 11:36AM By WISAM CASH ; [facility] Pantoprazole Sodium 40 MG Or al Tablet Delayed Release 11/15/2019 Provider: MUSA DEJESUS Diagnosis: 1 tab daily Last Documented On 0 11:20AM By WISAM ACSH ; [facility] Azelastine HCl 0.15% Nasal Solution 08/21/2019 Provi itz: GOLDIE MONTES MD Diagnosis: 2 sprays in each nostril twice a day Last Documented On 0 11:35AM By WISAM CASH ; [facility] Ferrous Sulfate 325 (65 Fe) MG Oral Tablet 04/10/2019 Provider: GOLDIE MONTES MD Diagnosis: 1 tab daily Last Documented On 04/10/2019 1:36PM By WISAM CASH ; [facility] Fluticasone Propionate 50MCG /ACT Nasal Suspension 07/25/2018 Provider: BETSY VALENCIA MD Diagnosis: 2 sprays in each nostril daily Last Documented On 11/28/2018 3:50PM By WISAM CASH ; [facility] Amlodipine Besy-Benazepril H Cl 5-10 MG Capsule, conventional 03/04/2016 Provider: BETSY VALENCIA MD Diagnosis: 1 daily Last Documented On 6 9:55AM By WILMER REDDY LPN ; [facility] Lipitor 20 MG Tablet 11/10/2015 Provider: JEFFERSON VALENCIA MD Diagnosis: 1 tablet every evening Last Documented On 6 10:25AM By WILMER REDDY LPN ; [facility] Dicyclomine HCl 10 MG Capsule, conventional 11/10/2015 Provider: BETSY VALENCIA MD Diagnosis: 1 capsule daily Last Documented On 6 10:22AM By WILMER REDDY LPN ; [facility] Aspirin 81 MG Tablet 11/10/2015 Provider: JEFFERSON VALENCIA MD Diagnosis: 1 tablet daily Last Documented On 6 10:23AM By WILMER REDDY LPN ; [facility] Lasix 20 MG Tablet 11/10/2015 Provider: BETSY VALENCIA MD Diagnosis: 1 tablet every morning Last Documented On 6 10:24AM By WILMER REDDY LPN ; [facility] Suspended Medications Trintellix 10 MG Oral Tablet 11/16/2022 Provider: EILEEN VINCENT MD Diagnosis: Major depressive disorder, single episode, unspecified TAKE ONE (1) TABLET BY MOUTH DAILY Last Documented On 3 12:52PM By Radha Vincent MD ; [facility] Namzaric 28-10 MG Oral Capsule Extended Release 24 Hour 10/17/2022 Provider: EILEEN VINCENT MD Diagnosis: Dem in oth dis c lassd elswhr,unsp sev,w/o beh/psych/mood/anx TAKE ONE CAPSULE BY MOUTH EV HELLEN MORNING Last Documented On 3 11:37AM By Radha Vincent MD ; [facility] busPIRone HCl 15 MG Oral Tablet 08/29/2022 Provider: EILEEN VINCENT MD Diagnosis: TAKE ONE TABLET BY MOUTH THREE TIMES a DAY Last Documented On 08/29/2022 3:43PM By Radha Vicnent MD ; [facility] Past Medications on file hydrOXYzine HCl [...] 09/24/2018 1:31PM By Radha Vincent MD ; [facility] Atorvastatin Calcium 20 MG OR TABS 01/28/2013 - 2012 Provider: Diagnosis: Last Documented On 3 3:46PM By TERRI CASH ; [facility] Medications Administered Includes: Administered Medications from [...] esolved Last Documented On 9 1:33PM ; [facility] Sulfa Antibiotics Allergy 08/02/2012 A ctive Last Documented On 4 11:08AM ; [facility] Note: Imported from external source. Neupro Allergy rash 10/23/2013 Active Last Documented On 4 11:08AM ; [facility] Note: Imported from external source. Encounters Encounter Provider Location Date Check-In Time Check-Out Time Diagnosis * PHONE CALL EILEEN VINCENT MD [facility] 022 10:30AM 11:59PM Psychophysiological Insomnia Insurance Includes: Active Insurance Policies Plan Name Member ID Group # Subscriber Relationship Effect kofi Dates 1 - [facility] [employer] [id number] EDITH DARBY Self 2 - [facility] [id number], INGRID J 0 - Unknown Clinical Notes Includes: Clinical Notes from this encounter No Clinical Notes Recorded
--- OUTSIDE RECORDS SUMMARY | 2024-09-04 14:24 | XMS_ITS | Clinical Summary ---
Author Organization [facility] S Address [address] [place] [address] Phone Care Team Providers Care Head Of Stock Name Role Phone RHIANNON DAI, EILEEN JJ [...] Active Last Documented On 7 10:35AM ; [facility] Past Visits Onset Date Resolved Date Provider Condition Status Depressive Disorder, Nos 04/13/2018 EILEEN VINCENT MD Active Last Documented On 8 6:05AM ; [facility] Adult Attention Deficit Hype ractivity Disorder 01/16/2017 EILEEN VINCENT MD Active Last Documented On 7 11:10AM ; [facility] Bipolar I Disorder 03/13/2015 EILEEN BREEN MD Active Last Documented On 5 10:21AM ; [facility] Dementia 02/10/2015 EILEEN VINCENT MD Ac tive Last Documented On 5 10:58AM ; [facility] Generalized Anxiety Disorder 02/10/2015 EILEEN VINCENT MD Active Last Documented On 5 10:22AM ; [facility] Mild cognitive impairment of uncertain or unknown etiology 02/10/2015 EILEEN VINCENT MD Active Last Documented On 5 10:36AM ; [facility] Restless Legs Syndrome 07/28/2013 EILEEN DE LA VEGA MD Active Last Documented On 1 11:20AM ; [facility] Sleep apnea, unspecified 04/14/2013 EILEEN VINCENT MD Active Last Documented On 5 10:51AM ; [facility] Hypothyroidism, unspecified 08/02/2012 EILEEN VINCENT MD Active Last Documented On 5 10:49AM ; [facility] Gastro-esophageal reflux dis ease without esophagitis 08/02/2012 EILEEN VINCENT MD Active Last Documented On 5 10:37AM ; [facility] Fracture of Nasal Bones 08/02/2012 EILEEN VINCENT MD Active Last Documented On 2 11:16AM ; [facility] Hyperlipidemia, unspecified 08/02/2012 EILEEN VINCENT MD Active Last Documented On 5 10:38AM ; [facility] Essential (primary) hypertension 08/02/2012 MET LEONIDES VINCENT MD Active Last Documented On 5 10:38AM ; [facility] Irritable bowel syndrome without diarrhea 08/02/2012 EILEEN VINCENT MD Active Last Documented On 5 10:50AM ; [facility] Plan of Treatment No Plan of Treatment Recorded Assessments Includes: Assessments from this encounter Findings - Psychophysiological insomnia - Last Documented On 04/11/2022 6:59PM ; [facility] Medical Equipment - Implanted Devices Includes: Current Devices No Medical Equipment Recorded Medications Includes: Medications discussed during this encounter and other current Medications New / Renewed during this visit EILEEN VINCENT MD on 04/11/2022 Quviviq 50 MG Oral Tablet Provider: EILEEN VINCENT MD 30 day supply: 30 tablet, 1 refills Diagnosis: Psychophysiologic insomnia One tablet at bed time Pharm[facility]: [facility], [address] - Last Documented On 2 12:18PM By Radha Vincent MD ; [facility] Current Medications (continue as prescribed) Mydayis 37.5 MG Oral Capsule Extended Release 24 Hour 12/07/2022 Provider: EILEEN VINCENT MD Diagnosis: Attention-defici t hyperactivity disorder, combined type 1 Capsule every morning Last Documented On 12/07/2022 4:33PM By Radha Vincent MD ; [facility] hydrOXYzine HCl 25 MG Oral Tablet 10/17/2022 Provide r: EILEEN VINCENT MD Diagnosis: 1 tab a day as needed only for itching/anxiety Last Documented On 10/17/2022 7:11PM By Radha Vincent MD ; [facility] Belsomra 10 MG Oral Tablet 09/27/2022 Provider: EILEEN VINCENT MD Diagnosis: Psychophysiologi c insomnia DIRECTED - ONE (1) TAB AT BEDTIME NEEDED FOR SLEEP Last Documented On 3 11:26AM By Radha Vincent MD ; [facility] Escitalopram Oxalate 20 MG Oral Tablet 09/25/2022 Provider: EILEEN VINCENT MD Diagnosis: Generalized anxi ety disorder TAKE ONE TABLET BY MOUTH DAILY Last Documented On 3 10:40AM By Radha Vincent MD ; [facility] lamoTRIgine 150 MG Oral Tablet 09/25/2022 Provider: EILEEN VINCENT MD Diagnosis: TAKE ONE TABLET BY MOUTH TWO TIMES A DAY Last Documented On 3 10:40AM By Radha Vincent MD ; [facility] rOPINIRole HCl 2 MG Oral Tablet 09/25/2022 Provider: EILEEN VINCENT MD Diagnosis: Restless legs sy ndrome DIRECTED - ONE (1) TAB AT FIVE (5) IN THE EVENING FOR RESTLESS LEGS Last Documented On 3 10:37AM By Radha Vincent MD ; [facility] buPROPion HCl ER (XL) 300 MG Oral Tablet Extended Release 24 Hour 07/03/2022 Provider: EILEEN VINCENT MD Diagnosis: Major depressive disorder, single episode, unspecified 1 tablet every morning Last Documented On 07/03/2022 1:56PM By Radha Vincent MD ; [facility] Alendronate Sodium 70 MG Oral Tablet 06/19/2022 Prov ider: WOLF MANJARREZ MD Diagnosis: 1 tab weekly Last Documented On 2 11:54AM By WISAM CASH ; [facility] traZODone HCl 50 MG Oral Tablet 02/07/2022 Provider: EILEEN VINCENT MD Diagnosis: TAKE ONE (1) OR TWO (2) TABL ETS BY MOUTH AT BEDTIME NEEDED SLEEP Last Documented On 2 10:04AM By Radha Vincent MD ; [facility] Levothyroxine Sodium 100 MCG Oral Capsule 04/14/2020 Provider: GOLDIE MONTES MD Diagnosis: 1 tab daily Last Documented On 0 11:36AM By WISAM CASH ; [facility] Pantoprazole Sodium 40 MG Or al Tablet Delayed Release 11/15/2019 Provider: MUSA DEJESUS Diagnosis: 1 tab daily Last Documented On 0 11:20AM By WISAM CASH ; [facility] Azelastine HCl 0.15% Nasal Solution 08/21/2019 Provi itz: GOLDIE MONTES MD Diagnosis: 2 sprays in each nostril twice a day Last Documented On 0 11:35AM By WISAM CASH ; [facility] Ferrous Sulfate 325 (65 Fe) MG Oral Tablet 04/10/2019 Provider: GOLDIE MONTES MD Diagnosis: 1 tab daily Last Documented On 04/10/2019 1:36PM By WISAM CASH ; [facility] Fluticasone Propionate 50MCG /ACT Nasal Suspension 07/25/2018 Provider: BETSY VALENCIA MD Diagnosis: 2 sprays in each nostril daily Last Documented On 11/28/2018 3:50PM By WISAM CASH ; [facility] Amlodipine Besy-Benazepril H Cl 5-10 MG Capsule, conventional 03/04/2016 Provider: BETSY VALENCIA MD Diagnosis: 1 daily Last Documented On 6 9:55AM By WILMER REDDY LPN ; [facility] Lipitor 20 MG Tablet 11/10/2015 Provider: JEFFERSON VALENCIA MD Diagnosis: 1 tablet every evening Last Documented On 6 10:25AM By WILMER REDDY LPN ; [facility] Dicyclomine HCl 10 MG Capsule, conventional 11/10/2015 Provider: BETSY VALENCIA MD Diagnosis: 1 capsule daily Last Documented On 6 10:22AM By WILMER REDDY LPN ; [facility] Aspirin 81 MG Tablet 11/10/2015 Provider: JEFFERSON VALENCIA MD Diagnosis: 1 tablet daily Last Documented On 6 10:23AM By WILMER REDDY LPN ; [facility] Lasix 20 MG Tablet 11/10/2015 Provider: BETSY VALENCIA MD Diagnosis: 1 tablet every morning Last Documented On 6 10:24AM By WILMER REDDY LPN ; [facility] Suspended Medications Trintellix 10 MG Oral Tablet 11/16/2022 Provider: EILEEN VINCENT MD Diagnosis: Major depressive disorder, single episode, unspecified TAKE ONE (1) TABLET BY MOUTH DAILY Last Documented On 3 12:52PM By Radha Vincent MD ; [facility] Namzaric 28-10 MG Oral Capsule Extended Release 24 Hour 10/17/2022 Provider: EILEEN VINCENT MD Diagnosis: Dem in oth dis c lassd elswhr,unsp sev,w/o beh/psych/mood/anx TAKE ONE CAPSULE BY MOUTH EV HELLEN MORNING Last Documented On 3 11:37AM By Radha Vincent MD ; [facility] busPIRone HCl 15 MG Oral Tablet 08/29/2022 Provider: EILEEN VINCENT MD Diagnosis: TAKE ONE TABLET BY MOUTH THREE TIMES a DAY Last Documented On 08/29/2022 3:43PM By Radha Vincent MD ; [facility] Past Medications on file hydrOXYzine HCl 25 MG Oral Tablet 10/08/2020 - 11/07/2020 Provider: EILEEN VINCENT MD Diagnosis: Generalized anxi ety disorder as directed - 1 tab a day as needed for agitation/anxiety Last Documented On 10/08/2020 2:47PM By Radha Vincent MD ; [facility] LaMICtal 150MG Oral Tablet 09/24/2018 - 09/27/2018 Provider: EILEEN VINCENT MD Diagnosis: Bipolar disorder , unspecified One tablet twice a day Last Documented On 09/24/2018 1:31PM By Radha Vincent MD ; [facility] Atorvastatin Calcium 20 MG OR TABS 01/28/2013 - 2012 Provider: Diagnosis: Last Documented On 3 3:46PM By TERRI CASH ; [facility] Medications Administered Includes: Administered Medications from [...] esolved Last Documented On 9 1:33PM ; [facility] Sulfa Antibiotics Allergy 08/02/2012 A ctive Last Documented On 4 11:08AM ; [facility] Note: Imported from external source. Neupro Allergy rash 10/23/2013 Active Last Documented On 4 11:08AM ; [facility] Note: Imported from external source. Encounters Encounter Provider Location Date Check-In Time Check-Out Time Diagnosis * PHONE CALL EILEEN VINCENT MD [facility] 022 2:51PM 11:59PM Psychophysiological Insomnia Insurance Includes: Active Insurance Policies Plan Name Member ID Group # Subscriber Relationship Effect kofi Dates [facility] [employer] [id number] EDITH DARBY Self 2 - [facility] [id number] INGRID DARBY J 0 - Unknown Clinical Notes Includes: Clinical Notes from this encounter No Clinical Notes Recorded
--- OUTSIDE RECORDS SUMMARY | 2024-09-04 14:24 | XMS_ITS | Clinical Summary ---
Author Organization [facility] Address [address] [place] [address] Phone Care Team Providers Care Chaser Tar Name Role Phone RHIANNON DAI, EILEEN JJ [...] Active Last Documented On 8 6:05AM ; [facility] Adult Attention Deficit Hype ractivity Disorder 01/16/2017 EILEEN VINCENT MD Active Last Documented On 7 11:10AM ; [facility] Psychophysiological Insomnia 09/27/2016 EILEEN VINCENT MD Active Last Documented On 7 10:35AM ; [facility] Bipolar I Disorder 03/13/2015 EILEEN BREEN MD Active Last Documented On 5 10:21AM ; [facility] Dementia 02/10/2015 EILEEN VINCENT MD Ac tive Last Documented On 5 10:58AM ; [facility] Generalized Anxiety Disorder 02/10/2015 EILEEN VINCENT MD Active Last Documented On 5 10:22AM ; [facility] Restless Legs Syndrome 07/28/2013 EILEEN DE LA VEGA MD Inactive Last Documented On 5 10:42AM ; [facility] 07/28/2013 EILEEN DE LA VEGA MD Active Last Documented On 1 11:20AM ; [facility] Past Visits Onset Date Resolved Date Provider Condition Status Mild cognitive impairment of uncertain or unknown etiology 02/10/2015 EILEEN VINCENT MD Active Last Documented On 5 10:36AM ; [facility] Sleep apnea, unspecified 04/14/2013 EILEEN VINCENT MD Active Last Documented On 5 10:51AM ; [facility] Hypothyroidism, unspecified 08/02/2012 EILEEN VINCENT MD Active Last Documented On 5 10:49AM ; [facility] Gastro-esophageal reflux dis ease without esophagitis 08/02/2012 EILEEN VINCENT MD Active Last Documented On 5 10:37AM ; [facility] Fracture of Nasal Bones 08/02/2012 EILEEN VINCENT MD Active Last Documented On 2 11:16AM ; [facility] Hyperlipidemia, unspecified 08/02/2012 EILEEN VINCENT MD Active Last Documented On 5 10:38AM ; [facility] Essential (primary) hypertension 08/02/2012 MET LEONIDES VINCENT MD Active Last Documented On 5 10:38AM ; [facility] Irritable bowel syndrome without diarrhea 08/02/2012 EILEEN VINCENT MD Active Last Documented On 5 10:50AM ; [facility] Plan of Treatment Bipolar Depression - Lamictal [...] - Last Documented On 07/17/2022 12:56PM ; [facility] Education and Decision Aids were provided during visit for: Patient education about medi cation ---Education was given on medication(s) and diagnosis. I reviewed the risks, benefits and side effects of patient's medications Last Documented On 11:24AM ; [facility] Discussed calming techniques such as breathing exercises and other relaxation techniques Last Documented On 11:24AM ; [facility] Counseling for nutrition/teresa ght management provided Last Documented On 11:45AM ; [facility] Discussed good sleep hygiene habits Last Documented On 11:45AM ; [facility] I recommended cognitive exer cises such as reading and/or word search puzzles, etc.. Last Documented On 12:49PM ; [facility] Assessments Includes: Assessments from this encounter Findings - Restless legs syndrome - Last Documented On 07/17/2022 12:56PM ; [facility] - Dementia - Last Documented On 07/17/2022 12:56PM ; [facility] - Bipolar I disorder - Last Documented On 07/17/2022 12:56PM ; [facility] - Depressive disorder - Last Documented On 07/17/2022 12:56PM ; [facility] - Psychophysiological insomnia - Last Documented On 07/17/2022 12:56PM ; [facility] - Generalized anxiety disorder - Last Documented On 07/17/2022 12:56PM ; [facility] - Adult attention deficit hyperactivity disorder - Last Documented On 07/17/2022 12:56PM ; [facility] Instructions Includes: Instructions from this encounter Education [...] techniques Last Documented On 2 11:24AM ; [facility] Counseling for nutrition/teresa ght management provided Last Documented On 2 11:45AM ; [facility] Discussed good sleep hygiene habits Last Documented On 2 11:45AM ; [facility] I recommended cognitive exer cises such as reading and/or word search puzzles, etc.. Last Documented On 2 12:49PM ; [facility] Medical Equipment - Implanted Devices Includes: Current Devices No Medical Equipment Recorded Medications Includes: Medications discussed during this encounter and other current Medications Discontinued / Stopped on this date EILEEN VINCENT MD on 04/11/2022 Quviviq 50 MG Oral Tablet Provider: EILEEN VINCENT MD Diagnosis: Psychophysiologi c insomnia Last Documented On 12:18PM By Radha Vincent MD ; [facility] hydrOXYzine HCl 25 MG Oral Tablet Provider: EILEEN VINCENT MD Diagnosis: Generalized anxi ety disorder Last Documented On 2 11:42AM By WISAM CASH ; [facility] hydrOXYzine HCl 25 MG Oral Tablet Provide r: Diagnosis: Generalized anxi ety disorder Last Documented On 2 11:42AM By WISAM CASH ; [facility] traZODone HCl 50 MG Oral Tablet Provider: EILEEN VINCENT MD Diagnosis: Psychophysiologi c insomnia Last Documented On 2 11:42AM By WISAM CASH ; [facility] traZODone HCl 50 MG Oral Tablet Provider: Diagnosis: Psychophysiologi c insomnia Last Documented On 2 11:42AM By WISAM CASH ; [facility] Calcium 600+D 600-400 MG-UNIT Tablet Prov ider: BETSY CARRIZALES MD Diagnosis: Last Documented On 2 11:34AM By WISAM CASH ; [facility] New / Renewed during this visit EILEEN VINCENT MD on 07/17/2022 Quviviq 50 MG Oral Tablet Provider: EILEEN VINCENT MD 30 day supply: 30 tablet, 3 refills Diagnosis: Psychophysiologic insomnia One tablet at bed time Pharmacy: [facility] - [address] [place] [address] [address], [facility], [id number] - Last Documented On 3 10:52AM By WISAM CASH ; [facility] Trintellix 10 MG Oral Tablet Provider: EILEEN VINCENT MD 30 day supply: 30 tablet, 3 refills Diagnosis: Major depressive disorder, single episode, unspecified One tablet daily [facility] [address] [place] [address], [id number] - Last Documented On 3 12:52PM By Radha Vincent MD ; [facility] Current Medications (continue as prescribed) Mydayis 37.5 MG Oral Capsule Extended Release 24 Hour 12/07/2022 Provider: EILEEN VINCENT MD Diagnosis: Attention-defici t hyperactivity disorder, combined type 1 Capsule every morning Last Documented On 12/07/2022 4:33PM By Radha Vincent MD ; [facility] hydrOXYzine HCl 25 MG Oral Tablet 10/17/2022 Provide r: EILEEN VINCENT MD Diagnosis: 1 tab a day as needed only for itching/anxiety Last Documented On 10/17/2022 7:11PM By Radha Vincent MD ; [facility] Belsomra 10 MG Oral Tablet 09/27/2022 Provider: EILEEN VINCENT MD Diagnosis: Psychophysiologi c insomnia DIRECTED - ONE (1) TAB AT BEDTIME NEEDED FOR SLEEP Last Documented On 3 11:26AM By Radha Vincent MD ; [facility] Escitalopram Oxalate 20 MG Oral Tablet 09/25/2022 Provider: EILEEN VINCENT MD Diagnosis: Generalized anxi ety disorder TAKE ONE TABLET BY MOUTH DAILY Last Documented On 3 10:40AM By Radha Vincent MD ; [facility] lamoTRIgine 150 MG Oral Tablet 09/25/2022 Provider: EILEEN VINCENT MD Diagnosis: TAKE ONE TABLET BY MOUTH TWO TIMES A DAY Last Documented On 3 10:40AM By Radha Vincent MD ; [facility] rOPINIRole HCl 2 MG Oral Tablet 09/25/2022 Provider: EILEEN VINCENT MD Diagnosis: Restless legs sy ndrome DIRECTED - ONE (1) TAB AT FIVE (5) IN THE EVENING FOR RESTLESS LEGS Last Documented On 3 10:37AM By Radha Vincent MD ; [facility] buPROPion HCl ER (XL) 300 MG Oral Tablet Extended Release 24 Hour 07/03/2022 Provider: EILEEN VINCENT MD Diagnosis: Major depressive disorder, single episode, unspecified 1 tablet every morning Last Documented On 07/03/2022 1:56PM By Radha Vincent MD ; [facility] Alendronate Sodium 70 MG Oral Tablet 06/19/2022 Prov ider: WOLF MITCHELL MD Diagnosis: 1 tab weekly Last Documented On 2 11:54AM By WISAM CASH ; [facility] traZODone HCl 50 MG Oral Tablet 02/07/2022 Provider: EILEEN VINCENT MD Diagnosis: TAKE ONE (1) OR TWO (2) TABL ETS BY MOUTH AT BEDTIME NEEDED SLEEP Last Documented On 2 10:04AM By Radha Vincent MD ; [facility] Levothyroxine Sodium 100 MCG Oral Capsule 04/14/2020 Provider: GOLDIE KIDD MD Diagnosis: 1 tab daily Last Documented On 0 11:36AM By WISAM CASH ; [facility] Pantoprazole Sodium 40 MG Or al Tablet Delayed Release 11/15/2019 Provider: SIERRA MCGARRY Diagnosis: 1 tab daily Last Documented On 0 11:20AM By WISAM CASH ; [facility] Azelastine HCl 0.15% Nasal Solution 08/21/2019 Provi itz: GOLDIE KIDD MD Diagnosis: 2 sprays in each nostril twice a day Last Documented On 0 11:35AM By WISAM CASH ; [facility] Ferrous Sulfate 325 (65 Fe) MG Oral Tablet 04/10/2019 Provider: GOLDIE KIDD MD Diagnosis: 1 tab daily Last Documented On 04/10/2019 1:36PM By WISAM CASH ; [facility] Fluticasone Propionate 50MCG /ACT Nasal Suspension 07/25/2018 Provider: BETSY CARRIZALES MD Diagnosis: 2 sprays in each nostril daily Last Documented On 11/28/2018 3:50PM By WISAM CASH ; [facility] Amlodipine Besy-Benazepril H Cl 5-10 MG Capsule, conventional 03/04/2016 Provider: BETSY CARRIZALES MD Diagnosis: 1 daily Last Documented On 6 9:55AM By WILMER REDDY LPN ; [facility] Lipitor 20 MG Tablet 11/10/2015 Provider: JEFFERSON CARRIZALES MD Diagnosis: 1 tablet every evening Last Documented On 6 10:25AM By WILMER REDDY LPN ; [facility] Dicyclomine HCl 10 MG Capsule, conventional 11/10/2015 Provider: BETSY CARRIZALES MD Diagnosis: 1 capsule daily Last Documented On 6 10:22AM By WILMER REDDY LPN ; [facility] Aspirin 81 MG Tablet 11/10/2015 Provider: JEFFERSON CARRIZALES MD Diagnosis: 1 tablet daily Last Documented On 6 10:23AM By WILMER REDDY LPN ; [facility] Lasix 20 MG Tablet 11/10/2015 Provider: BETSY CARRIZALES MD Diagnosis: 1 tablet every morning Last Documented On 6 10:24AM By WILMER REDDY LPN ; [facility] Suspended Medications Trintellix 10 MG Oral Tablet 11/16/2022 Provider: EILEEN VINCENT MD Diagnosis: Major depressive disorder, single episode, unspecified TAKE ONE (1) TABLET BY MOUTH DAILY Last Documented On 3 12:52PM By Radha Vincent MD ; [facility] Namzaric 28-10 MG Oral Capsule Extended Release 24 Hour 10/17/2022 Provider: EILEEN VINCENT MD Diagnosis: Dem in oth dis c lassd elswhr,unsp sev,w/o beh/psych/mood/anx TAKE ONE CAPSULE BY MOUTH EV HELLEN MORNING Last Documented On 3 11:37AM By Radha Vincent MD ; [facility] busPIRone HCl 15 MG Oral Tablet 08/29/2022 Provider: EILEEN VINCENT MD Diagnosis: TAKE ONE TABLET BY MOUTH THREE TIMES a DAY Last Documented On 08/29/2022 3:43PM By Radha Vincent MD ; [facility] Past Medications on file hydrOXYzine HCl 25 MG Oral Tablet 10/08/2020 - 11/07/2020 Provider: EILEEN VINCENT MD Diagnosis: Generalized anxi ety disorder as directed - 1 tab a day as needed for agitation/anxiety Last Documented On 10/08/2020 2:47PM By Radha Vincent MD ; [facility] LaMICtal 150MG Oral Tablet 09/24/2018 - 09/27/2018 Provider: EILEEN VINCENT MD Diagnosis: Bipolar disorder , unspecified One tablet twice a day Last Documented On 09/24/2018 1:31PM By Radha Vincent MD ; [facility] Atorvastatin Calcium 20 MG OR TABS 01/28/2013 - 2012 Provider: Diagnosis: Last Documented On 3 3:46PM By TERRI CASH ; [facility] Medications Administered Includes: Administered Medications from this [...] Last Documented: On 07/17/2022 11:52A M ; [facility] Results Includes: Results discussed during this encounter [...] her that she needs to go to [facility]. At times it is bothersome and nagging her. She did not think it is a hallucination but at times she feels she is creating it. She went ahead and went to [facility] and seemed to have calmed down but [...] got the Quviviq so will send through [facility]. Pt has not been napping/sleeping too [...] something in her head to go to [facility] Appearance - casually groomed Motor Behavior - calm Eye Contact - intermittent Speech - fluent Mood - at times down Affect - occ anxious Thought Process - coherent Insight and Judgment - intact Social History Description Last Updated Daily coffee consumption -- no coffee, 2 glasses of unsweetened tea daily 08/21/2019 Last Documented On 2 11:24AM ; [facility] She was born in [place], [place]. She was raised in [place], [place] and [place], [place]. She was close to her parents while growing up and they were supportive of her. 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 11/08/2012 Last Documented On 11:24AM ; [facility] Not using alcohol 08/02/2012 Last Documented On 11:24AM ; [facility] Not using drugs (Illicit) 08/02/2012 Last Documented On 11:24AM ; [facility] Smoking status : Never smoked 08/02/2012 Last Documented On 11:24AM ; [facility] Procedures and Surgical History Includes: Procedures from this encounter Procedures Code Diagnosis Performing Provider Service L ocation Service Date education and instructions Last Documented On 11:24AM ; [facility] dangerousness assessment: suicide risk -not suic idal 3085F Last Documented On 11:24AM ; [facility] use of tobacco assessment performed 1000F Last Documented On 11:24AM ; [facility] patient screened for future fall risk - 13 3288F Last Documented On 11:24AM ; [facility] review of medications documented 1160F Last Documented On 11:24AM ; [facility] screening for adult depressi on: impression and score - please see above treatment and PHQ score Last Documented On 11:24AM ; [facility] standardized depression screening: posit kofi for symptoms Last Documented On 11:24AM ; [facility] encouragement to exercise Last Documented On 11:24AM ; [facility] Counseling on new medication : I discussed the risks, benefits and side effects of Trintellix . 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 04/201811/28/2018 Last Documented On 2 11:24AM ; [facility] History of hallux valgus (bunion) correc tion -- 08/01/17 09/07/2017 Last Documented On 2 11:24AM ; [facility] History of excision left foot bunion-- 2 012 01/28/2015 Last Documented On 2 11:24AM ; [facility] History of tubal ligation 01/28/2015 Last Documented On 2 11:24AM ; [facility] History of hysterectomy 01/28/2015 Last Documented On 2 11:24AM ; [facility] History of cholecystectomy 08/02/2012 Last Documented On 2 11:24AM ; [facility] Medical History Includes: Medical History addressed during this encounter Description Last Updated History of bronchitis - give n Zpak 250 mg and Albuterol HFA 90 mcg inhaler on 02/23/22 and given Methylprednisolone Dosepak 4 mg on 02/18/22 10/17/2022 Last Documented On 2 11:24AM ; [facility] History of obstructive sleep apnea -- sleep study done 05/22/13 at [facility] under Dr. Cutler. She was wearing a dental device purchased from [facility]. Patient does not wear her dental device. She uses O2 at 2 liters 10/17/2022 Last Documented On 2 11:24AM ; [facility] History of fall risk -- pt h [...] going down while she was at the [employer]; she had a nosebleed and a sore right knee; she did not go to the Dr. or ER 07/17/2022 Last Documented On 2 12:56PM ; [facility] Primary Care Provider: Dr. Angela Carrizales ~Dr. Sierra Mcgarry -- Cross Enterprise Integrator ~Dr. Naveed Lala, DPM -- Automotive Parts Specialist ~Dr. Wolf Mitchell -- Plant Pathologist ~Dr. Keanu Mitchell, NICKY -- Dentist ~Dr. Joshua Hanson, OD -- Translator/Interpreter 07/17/2022 Last Documented On 2 12:56PM ; [facility] History of hammer toe - 2nd toe of left foot straightened by Dr. Hiro Arthur 11/05/20 -- given Keflex 500 mg 04/05/2022 Last Documented On 2 11:24AM ; [facility] History of coronavirus 2019- nCoV vaccine - Pfizer #1 11/02/20 #2 03/23/21 -- as of 07/29/21 no booster yet 07/29/2021 Last Documented On 2 11:24AM ; [facility] History of vaginal candidiasis - given F lagyl 500 mg 11/06/20 12/20/2020 Last Documented On 2 11:24AM ; [facility] History of colonoscopy - 11/202012/21/19 Last Documented On 2 11:24AM ; [facility] History of hearing loss - wears bilatera l hearing aids 04/10/2019 Last Documented On 2 11:24AM ; [facility] History of iron deficiency - started on Ferrous Sulfate 325 mg [address] Goldie Kidd in 01/201904/10/2019 Last Documented On 2 11:24AM ; [facility] of [facility] /brain trauma Last Documented On 2 11:24AM ; [facility] History of sprain of the left foot 01/03 Last Documented On 2 11:24AM ; [facility] History of tinea pedis 08/01/2016 Last Documented On 2 11:24AM ; [facility] History of Epidural Steroid Injection -- 03/08/[address] Yi for back pain 03/13/2016 Last Documented On 2 11:24AM ; [facility] History of irritable bowel syndrome 01/13 Last Documented On 2 11:24AM ; [facility] History of esophageal reflux 08/02/2012 Last Documented On 2 11:24AM ; [facility] History of hypothyroidism 08/02/2012 Last Documented On 2 11:24AM ; [facility] History of hyperlipidemia 08/02/2012 Last Documented On 2 11:24AM ; [facility] History of hypertension 08/02/2012 Last Documented On 2 11:24AM ; [facility] Family History Includes: Family History addressed during this encounter Description Last Updated Paternal history of depression -- father 10/15/2014 Last Documented On 2 11:24AM ; [facility] Maternal history of depression -- mother 10/15/2014 Last Documented On 2 11:24AM ; [facility] Sororal history of depression -- sister 10/15/2014 Last Documented On 2 11:24AM ; [facility] Maternal history of anxiety disorder NOS -- mother 10/15/2014 Last Documented On 2 11:24AM ; [facility] Paternal history of anxiety disorder NOS -- father 10/15/2014 Last Documented On 2 11:24AM ; [facility] Review of Systems Includes: Review of Systems [...] esolved Last Documented On 9 1:33PM ; [facility] Sulfa Antibiotics Allergy 08/02/2012 A ctive Last Documented On 4 11:08AM ; [facility] Note: Imported from external source. Neupro Allergy rash 10/23/2013 Active Last Documented On 4 11:08AM ; [facility] Note: Imported from external source. Encounters Encounter Provider Location Date Check-In Time Check-Out Time Diagnosis [facility] EILEEN VINCENT MD [facility] 07/17/20 22 11:24AM 11:59PM Generalized Anxiety Disorder,Restless Legs Syndrome,Dementia ,Psychophysiologi maday Insomnia,Bipolar I Disorder,Adult Attention Deficit Hyperactivity Disorder,Depressi ve Disorder, Nos Insurance Includes: Active Insurance Policies Plan Name Member ID Group # Subscriber Relationship Effect kofi Dates 1 - [facility] [id number] EDITH DARBY Self 2 - [facility] [id number] INGRID DARBY J 0 - Unknown Clinical Notes Includes: Clinical Notes from this encounter No Clinical Notes Recorded
--- OUTSIDE RECORDS SUMMARY | 2024-09-04 14:24 | XMS_ITS ---
Care Plan - [facility] Created on: September 04, 2024 EDITH DARBY : 1950 Sex: Female Author Organization [facility] Address [address] [place] [address] Phone Care Team Providers Care Cooperative Manager Name Role Phone RHIANNON DAI, EILEEN JJ Unavailable [phone] JYOTI DAI, GOLDIE Person Primary Care Provider [phone]
--- OUTSIDE RECORDS SUMMARY | 2024-09-04 14:24 | XMS_ITS ---
Author Organization [facility] Medical Formerly [facility] S Address [address] [place] [address] Phone Care Team Providers Care Engraver [employer]namental Design Name Role Phone RHIANNON DAI, EILEEN JJ Unavailable [phone] JYOTI DAI, GOLDIE Person Primary Care Provider [phone] Reason for Referral Date Encounter Description Provider Reason for Referral 05/24/15 GENERAL OFFICE VISIT EILEEN VINCENT MD Request Consultation By Mental Health Counselor 10/15/14 GENERAL OFFICE VISIT EILEEN VINCENT MD Request Consultation By Mental Health Counselor - --continue counseling with Susie 06/01/14 GENERAL OFFICE VISIT EILEEN VINCENT MD Request Consultation By Mental Health Counselor - --pt goes to stress mgt group and sees counselor 04/30/14 GENERAL OFFICE VISIT EILEEN VINCENT MD Request Consultation By Mental Health Counselor - -- pt seesebastien Lynn for counseling 04/07/14 GENERAL OFFICE VISIT EILEEN VINCENT MD Request Consultation By Mental Health Counselor 02/09/14 GENERAL OFFICE VISIT EILEEN VINCENT MD Request Consultation By Mental Health Counselor - --pt seesebastien Lynn for counseling 11/21/13 GENERAL OFFICE VISIT EILEEN VINCENT MD Request Consultation By Mental Health Counselor - --pt seesebastien Lynn 10/23/13 GENERAL OFFICE VISIT EILEEN VINCENT MD Request Consultation By Mental Health Counselor - -- Patient sees Leah Quiroz for counseling 05/07/13 GENERAL OFFICE VISIT EILEEN VINCENT MD Request Consultation By Mental Health Counselor - --sees Leah every 3 weeks 01/28/13 GENERAL OFFICE VISIT EILEEN VINCENT MD Request Consultation By Mental Health Counselor - or Therapist---pt sees Leah 11/08/12 GENERAL OFFICE VISIT EILEEN VINCENT MD Request Consultation By Mental Health Counselor - or Therapist--pt sees Leah 09/04/12 GENERAL OFFICE VISIT EILEEN VINCENT MD Request Consultation By Mental Health Counselor - or Therapist--pt sees Leah quiroz 08/07/12 GENERAL OFFICE VISIT EILEEN VINCENT MD Request Consultation By Mental Health Counselor - Pt is currently seeing Leah once a month. Problems Includes: Active, inactive, and resolved Problems All Visits Onset Date Resolved Date Provider Condition S tatus Depressive Disorder, Nos 04/13/2018 EILEEN VINCENT MD Active Last Documented On 8 6:05AM ; [facility] Adult Attention Deficit Hype ractivity Disorder 01/16/2017 EILEEN VINCENT MD Active Last Documented On 7 11:10AM ; [facility] Psychophysiological Insomnia 09/27/2016 EILEEN VINCENT MD Active Last Documented On 7 10:35AM ; [facility] Bipolar I Disorder 03/13/2015 EILEEN BREEN MD Active Last Documented On 5 10:21AM ; [facility] Dementia 02/10/2015 EILEEN VINCENT MD Ac tive Last Documented On 5 10:58AM ; [facility] Generalized Anxiety Disorder 02/10/2015 EILEEN VINCENT MD Active Last Documented On 5 10:22AM ; [facility] Mild cognitive impairment of uncertain or unknown etiology 02/10/2015 EILEEN VINCENT MD Active Last Documented On 5 10:36AM ; [facility] Persistent Insomnia 11/11/2013 EILEEN CONNORS MD Inactive Last Documented On 5 10:41AM ; [facility] Restless Legs Syndrome 07/28/2013 EILEEN DE LA VEGA MD Inactive Last Documented On 5 10:42AM ; [facility] Restless Legs Syndrome 07/28/2013 EILEEN DE LA VEGA MD Active Last Documented On 1 11:20AM ; [facility] Nonorganic Sleep Apnea Obstructive 04/14/2013 Elizabeth VINCENT MD Inactive Last Documented On 5 10:51AM ; [facility] Sleep apnea, unspecified 04/14/2013 EILEEN VINCENT MD Active Last Documented On 5 10:51AM ; [facility] Bipolar I Disorder, Most Rec ent Episode, Depressed 10/23/2012 EILEEN VINCENT MD Inactive Last Documented On 5 10:51AM ; [facility] PRESENILE DEMENTIA 08/07/2012 EILEEN BREEN MD Inactive Last Documented On 04/28/2015 10:52AM ; [facility] Note: Probable dementia Hypothyroidism, unspecified 08/02/2012 EILEEN VINCENT MD Active Last Documented On 5 10:49AM ; [facility] Esophageal Reflux 08/02/2012 EILEEN Miller MD Inactive Last Documented On 5 10:37AM ; [facility] Gastro-esophageal reflux dis ease without esophagitis 08/02/2012 EILEEN VINCENT MD Active Last Documented On 5 10:37AM ; [facility] Fracture of Nasal Bones 08/02/2012 EILEEN VINCENT MD Active Last Documented On 2 11:16AM ; [facility] GENERALIZED ANXIETY DIS 08/02/2012 EILEEN VINCENT MD Inactive Last Documented On 5 10:37AM ; [facility] Hyperlipidemia 08/02/2012 EILEEN Sr Inactive Last Documented On 5 10:38AM ; [facility] Hyperlipidemia, unspecified 08/02/2012 EILEEN VINCENT MD Active Last Documented On 5 10:38AM ; [facility] Essential (primary) hypertension 08/02/2012 MET LEONIDES VINCENT MD Active Last Documented On 5 10:38AM ; [facility] Hypertension Systemic 08/02/2012 EILEEN HAAS MD Inactive Last Documented On 5 10:38AM ; [facility] Hypothyroidism 08/02/2012 EILEEN Sr Inactive Last Documented On 5 10:49AM ; [facility] Irritable Bowel Syndrome 08/02/2012 EILEEN VINCENT MD Inactive Last Documented On 5 10:50AM ; [facility] Irritable bowel syndrome without diarrhea 08/02/2012 EILEEN VINCENT MD Active Last Documented On 5 10:50AM ; [facility] Reported Trauma To Head 08/02/2012 EILEEN VINCENT MD Inactive Last Documented On 4 9:46PM ; [facility] Plan of Treatment Findings Encounter Date Ordered Transition in care, clinical summary provided GENERAL OFFICE VISIT with EILEEN VINCENT MD 05/07/2013 Last Documented On 3 9:22PM ; [facility] Referrals To Diagnosis Sleep Study OBSTRUCTIVE SLEE P APNEA Note: [facility] Last Documented On 4 5:59PM ; [facility] Instructions to patient Lose weight - pt gained 7 lb s since last seen Last Documented On 2 12:51PM ; [facility] Lose weight Last Documented On 1 11:32AM ; [facility] Lose weight Last Documented On 1 11:48AM ; [facility] Lose weight Last Documented On 1 12:04PM ; [facility] Lose weight Last Documented On 1 11:25AM ; [facility] Lose weight Last Documented On 0 11:49AM ; [facility] Education and Decision Aids were provided during visit for: Patient counseling I discuss ed risk, benefits, and side effects of sleep aid - Belsomra - including the possibility of sleep related behaviors i.e. sleepwalking, sleeptalking, sleepdriving, etc... Pt verbalized understanding. So far, pt denied sleep related behaviors Last Documented On 3 12:52AM ; [facility] Discussed good sleep hygiene habits Last Documented On 3 11:27AM ; [facility] I recommended cognitive exer cises such as reading and/or word search puzzles, etc.. Last Documented On 3 11:51PM ; [facility] Patient education about medi cation ---Education was given on medication(s) and diagnosis. I reviewed the risks, benefits and side effects of patient's medications Last Documented On 2 11:24AM ; [facility] Discussed calming techniques such as breathing exercises and other relaxation techniques Last Documented On 2 11:24AM ; [facility] Counseling for nutrition/teresa ght management provided Last Documented On 2 11:45AM ; [facility] Discussed good sleep hygiene habits Last Documented On 2 11:45AM ; [facility] I recommended cognitive exer cises such as reading and/or word search puzzles, etc.. Last Documented On 2 12:49PM ; [facility] Patient education about medi cation --- I educated patient on medication(s) and diagnosis. I reviewed the risks, benefits and side effects of patient's medications Last Documented On 2 11:01AM ; [facility] Discussed calming techniques such as breathing exercises and other relaxation techniques Last Documented On 2 11:01AM ; [facility] Discussed good sleep hygiene habits Last Documented On 2 11:48AM ; [facility] Patient education about medi cation --- I educated patient on medication(s) and diagnosis. I reviewed the risks, benefits and side effects of patient's medications Last Documented On 2 11:15AM ; [facility] Discussed calming techniques such as breathing exercises and other relaxation techniques Last Documented On 2 11:15AM ; [facility] Discussed good sleep hygiene habits Last Documented On 2 11:20AM ; [facility] I recommended cognitive exer cises such as reading and/or word search puzzles, etc.. Last Documented On 2 7:56AM ; [facility] Patient education about medi cation --- I educated patient on medication(s) and diagnosis. I reviewed the risks, benefits and side effects of patient's medications Last Documented On 1 11:29AM ; [facility] Discussed calming techniques such as breathing exercises and other relaxation techniques Last Documented On 1 11:29AM ; [facility] Counseling for nutrition/teresa ght management provided Last Documented On 1 11:32AM ; [facility] Patient education about medi cation --- I educated patient on medication(s) and diagnosis. I reviewed the risks, benefits and side effects of patient's medications Last Documented On 1 11:37AM ; [facility] Discussed calming techniques such as breathing exercises and other relaxation techniques Last Documented On 1 11:37AM ; [facility] Counseling for nutrition/teresa ght management provided Last Documented On 1 11:48AM ; [facility] Discussed good sleep hygiene habits Last Documented On 1 11:48AM ; [facility] Patient education about medi cation --- I educated patient on medication(s) and diagnosis. I reviewed the risks, benefits and side effects of patient's medications Last Documented On 1 12:03PM ; [facility] Discussed calming techniques such as breathing exercises and other relaxation techniques Last Documented On 1 12:03PM ; [facility] Counseling for nutrition/teresa ght management provided Last Documented On 1 12:04PM ; [facility] Discussed good sleep hygiene habits Last Documented On 1 12:04PM ; [facility] I recommended cognitive exer cises such as reading and/or word search puzzles, etc.. Last Documented On 1 1:53PM ; [facility] Patient education about medi cation --- I educated patient on medication(s) and diagnosis. I reviewed the risks, benefits and side effects of patient's medications Last Documented On 1 11:24AM ; [facility] Discussed calming techniques such as breathing exercises and other relaxation techniques Last Documented On 1 11:24AM ; [facility] Counseling for nutrition/teresa ght management provided Last Documented On 1 11:25AM ; [facility] I recommended cognitive exer cises such as reading and/or word search puzzles, etc.. Last Documented On 1 11:29AM ; [facility] Patient education about medi cation --- I educated patient on medication(s) and diagnosis. I reviewed the risks, benefits and side effects of patient's medications Last Documented On 0 11:14AM ; [facility] Discussed calming techniques such as breathing exercises and other relaxation techniques Last Documented On 0 11:14AM ; [facility] Counseling for nutrition/teresa ght management provided Last Documented On 0 11:49AM ; [facility] Patient education about a pr oper diet Last Documented On 0 11:24AM ; [facility] Patient education about medi cation --- I educated patient on medication(s) and diagnosis. I reviewed the risks, benefits and side effects of patient's medications Last Documented On 0 11:05AM ; [facility] Discussed calming techniques such as breathing exercises and other relaxation techniques Last Documented On 0 11:05AM ; [facility] Counseling for nutrition/teresa ght management provided Last Documented On 0 11:24AM ; [facility] I recommended cognitive exer cises such as reading and/or word search puzzles, etc.. Last Documented On 0 11:34PM ; [facility] Patient education about a pr oper diet Last Documented On 0 11:45AM ; [facility] Patient education about medi cation --- I educated patient on medication(s) and diagnosis. I reviewed the risks, benefits and side effects of patient's medications Last Documented On 0 11:12AM ; [facility] Discussed calming techniques such as breathing exercises and other relaxation techniques Last Documented On 0 11:12AM ; [facility] Counseling for nutrition/teresa ght management provided Last Documented On 0 11:45AM ; [facility] Discussed good sleep hygiene habits Last Documented On 0 2:21AM ; [facility] I recommended cognitive exer cises such as reading and/or word search puzzles, etc.. Last Documented On 0 2:21AM ; [facility] Patient education about a pr oper diet Last Documented On 9 1:50PM ; [facility] Patient education about medi cation --- I educated patient on medication(s) and diagnosis. I reviewed the risks, benefits and side effects of patient's medications Last Documented On 9 1:29PM ; [facility] Discussed calming techniques such as breathing exercises and other relaxation techniques Last Documented On 9 1:29PM ; [facility] Counseling for nutrition/teresa ght management provided Last Documented On 9 1:50PM ; [facility] I recommended cognitive exer cises such as reading and/or word search puzzles, etc.. Last Documented On 9 11:01PM ; [facility] Patient education about a pr oper diet Last Documented On 9 4:10PM ; [facility] Patient education about medi cation --- I educated patient on medication(s) and diagnosis. I reviewed the risks, benefits and side effects of patient's medications Last Documented On 9 3:38PM ; [facility] Discussed calming techniques such as breathing exercises and other relaxation techniques Last Documented On 9 3:38PM ; [facility] Counseling for nutrition/teresa ght management provided Last Documented On 9 4:10PM ; [facility] Discussed good sleep hygiene habits Last Documented On 9 3:37AM ; [facility] I recommended cognitive exer cises such as reading and/or word search puzzles, etc.. Last Documented On 9 3:37AM ; [facility] Patient education about a pr oper diet Last Documented On 8 2:31PM ; [facility] Patient education about medi cation --- I educated patient on medication(s) and diagnosis. I reviewed the risks, benefits and side effects of patient's medications Last Documented On 8 2:26PM ; [facility] Discussed calming techniques such as breathing exercises and other relaxation techniques Last Documented On 8 2:26PM ; [facility] Counseling for nutrition/teresa ght management provided Last Documented On 8 2:31PM ; [facility] I recommended cognitive exer cises such as reading and/or word search puzzles, etc.. Last Documented On 8 6:02AM ; [facility] Patient education about medi cation --- I educated patient on medication(s) and diagnosis. I reviewed the risks, benefits and side effects of patient's medications Last Documented On 8 11:13AM ; [facility] Discussed calming techniques such as breathing exercises and other relaxation techniques Last Documented On 8 11:13AM ; [facility] Counseling for nutrition/teresa ght management provided Last Documented On 8 9:42PM ; [facility] I recommended cognitive exer cises such as reading and/or word search puzzles, etc.. Last Documented On 8 9:42PM ; [facility] Patient education about medi cation --- I educated patient on medication(s) and diagnosis. I reviewed the risks, benefits and side effects of patient's medications Last Documented On 8 10:54AM ; [facility] Discussed calming techniques such as breathing exercises and other relaxation techniques Last Documented On 8 10:54AM ; [facility] Counseling for nutrition/teresa ght management provided Last Documented On 8 7:35AM ; [facility] I recommended cognitive exer cises such as reading and/or word search puzzles, etc.. Last Documented On 8 7:35AM ; [facility] Patient education about medi cation --- I educated patient on medication(s) and diagnosis. I reviewed the risks, benefits and side effects of patient's medications Last Documented On 7 11:30AM ; [facility] Discussed calming techniques such as breathing exercises and other relaxation techniques Last Documented On 7 11:30AM ; [facility] Counseling for nutrition/teresa ght management provided Last Documented On 7 8:02AM ; [facility] I recommended cognitive exer cises such as reading and/or word search puzzles, etc.. Last Documented On 7 8:02AM ; [facility] Patient education about medi cation --- I educated patient on medication(s) and diagnosis. I reviewed the risks, benefits and side effects of patient's medications Last Documented On 7 11:17AM ; [facility] Discussed calming techniques such as breathing exercises and other relaxation techniques Last Documented On 7 11:17AM ; [facility] Counseling for nutrition/teresa ght management provided Last Documented On 7 2:20AM ; [facility] I recommended cognitive exer cises such as reading and/or word search puzzles, etc.. Last Documented On 7 2:20AM ; [facility] Patient education about medi cation --- I educated patient on medication(s) and diagnosis. I reviewed the risks, benefits and side effects of patient's medications Last Documented On 7 10:24AM ; [facility] Discussed calming techniques such as breathing exercises and other relaxation techniques Last Documented On 7 10:24AM ; [facility] Counseling for nutrition/teresa ght management provided Last Documented On 7 11:32AM ; [facility] Discussed good sleep hygiene habits Last Documented On 7 11:32AM ; [facility] I recommended cognitive exer cises such as reading and/or word search puzzles, etc.. Last Documented On 7 11:32AM ; [facility] Patient education about medi cation --- I educated patient on medication(s) and diagnosis. I reviewed the risks, benefits and side effects of patient's medications Last Documented On 7 10:41AM ; [facility] Discussed calming techniques such as breathing exercises/meditation and other relaxation techniques Last Documented On 7 10:41AM ; [facility] Counseling for nutrition/teresa ght management provided Last Documented On 7 3:51PM ; [facility] Discussed good sleep hygiene habits Last Documented On 7 3:51PM ; [facility] I recommended cognitive exer cises such as reading and/or word search puzzles, etc.. Last Documented On 7 3:51PM ; [facility] Patient education about medi cation --- I educated patient on medication(s) and diagnosis. I reviewed the risks, benefits and side effects of patient's medications Last Documented On 6 9:31AM ; [facility] Discussed calming techniques such as breathing exercises/meditation and other relaxation techniques Last Documented On 6 9:31AM ; [facility] Counseling for nutrition/teresa ght management provided Last Documented On 6 3:01PM ; [facility] Discussed good sleep hygiene habits Last Documented On 6 3:01PM ; [facility] I recommended cognitive exer cises such as reading and/or word search puzzles, etc.. Last Documented On 6 3:01PM ; [facility] Patient education about medi cation --- I educated patient on medication(s) and diagnosis. I reviewed the risks, benefits and side effects of patient's medications Last Documented On 6 9:46AM ; [facility] Discussed calming techniques such as breathing exercises/meditation and other relaxation techniques Last Documented On 6 9:46AM ; [facility] Counseling for nutrition/teresa ght management provided Last Documented On 6 7:20AM ; [facility] Discussed good sleep hygiene habits Last Documented On 6 7:20AM ; [facility] Patient education about medi cation --- I educated patient on medication(s) and diagnosis. I reviewed the risks, benefits and side effects of patient's medications Last Documented On 6 9:53AM ; [facility] Discussed calming techniques such as breathing exercises/meditation and other relaxation techniques Last Documented On 6 9:53AM ; [facility] Counseling for nutrition/teresa ght management provided Last Documented On 6 11:01AM ; [facility] Patient education about medi cation --- I educated patient on medication(s) and diagnosis. I reviewed the risks, benefits and side effects of patient's medications Last Documented On 5 9:52AM ; [facility] Discussed calming techniques such as breathing exercises/meditation and other relaxation techniques Last Documented On 5 9:52AM ; [facility] Counseling for nutrition/teresa ght management provided Last Documented On 5 9:26PM ; [facility] Patient education about medi cation --- I educated patient on medication(s) and diagnosis. I reviewed the risks, benefits and side effects of patient's medications Last Documented On 5 10:19AM ; [facility] Discussed calming techniques such as breathing exercises/meditation and other relaxation techniques Last Documented On 5 10:19AM ; [facility] Counseling for nutrition/teresa ght management provided Last Documented On 5 12:29PM ; [facility] Patient education about medi cation --- I educated patient on medication(s) and diagnosis. I reviewed the risks, benefits and side effects of patient's medications Last Documented On 5 10:10PM ; [facility] Discussed calming techniques such as breathing exercises/meditation and other relaxation techniques Last Documented On 5 10:56AM ; [facility] Counseling for nutrition/teresa ght management provided Last Documented On 5 10:10PM ; [facility] Patient education about medi cation --- I educated patient on medication(s) and diagnosis. I reviewed the risks, benefits and side effects of patient's medications Last Documented On 5 6:47AM ; [facility] Discussed calming techniques such as breathing exercises/meditation and other relaxation techniques Last Documented On 5 11:14AM ; [facility] Counseling for nutrition/teresa ght management provided Last Documented On 5 6:47AM ; [facility] I recommended cognitive exer cises such as reading and/or word search puzzles, etc.. Last Documented On 5 6:47AM ; [facility] Patient education about medi cation --- I educated patient on medication(s) and diagnosis. I reviewed the risks, benefits and side effects of patient's medications Last Documented On 4 7:59PM ; [facility] Discussed calming techniques such as breathing exercises/meditation and other relaxation techniques Last Documented On 4 10:03AM ; [facility] Counseling for nutrition/teresa ght management provided Last Documented On 4 7:59PM ; [facility] I recommended cognitive exer cises such as reading and/or word search puzzles, etc.. Last Documented On 4 7:59PM ; [facility] Patient education about medi cation --- I educated patient on medication(s) and diagnosis. I reviewed the risks, benefits and side effects of patient's medications Last Documented On 4 10:04AM ; [facility] Discussed calming techniques such as breathing exercises/meditation and other relaxation techniques Last Documented On 4 9:26AM ; [facility] Counseling for nutrition/teresa ght management provided Last Documented On 4 10:04AM ; [facility] Patient education about medi cation --- I educated patient on medication(s) and diagnosis. I reviewed the risks, benefits and side effects of patient's medications Last Documented On 4 10:25PM ; [facility] Discussed calming techniques such as breathing exercises/meditation and other relaxation techniques Last Documented On 4 8:59AM ; [facility] Patient education about medi cation --- I educated patient on medication(s) and diagnosis. I reviewed the risks, benefits and side effects of patient's medications Last Documented On 4 10:40PM ; [facility] Discussed calming techniques such as breathing exercises/meditation and other relaxation techniques Last Documented On 4 2:19PM ; [facility] Counseling for nutrition/teresa ght management provided Last Documented On 4 10:40PM ; [facility] Patient education about medi cation --- I educated patient on medication(s) and diagnosis. I reviewed the risks, benefits and side effects of patient's medications.--no rash from Lamictal so far Last Documented On 4 9:29PM ; [facility] Discussed calming techniques such as breathing exercises/meditation and other relaxation techniques Last Documented On 4 2:46PM ; [facility] Counseling for nutrition/teresa ght management provided Last Documented On 4 9:29PM ; [facility] Patient education about medi cation --- I educated patient on medication(s) and diagnosis. I reviewed the risks, benefits and side effects of patient's medications including the possibility of SJS rash with Lamictal Last Documented On 4 9:56PM ; [facility] Discussed calming techniques such as breathing exercises/meditation and other relaxation techniques Last Documented On 4 3:16PM ; [facility] Counseling for nutrition/teresa ght management provided Last Documented On 4 9:56PM ; [facility] Patient education about medi cation --- I educated patient on medication(s) and diagnosis. I reviewed the risks, benefits and side effects of patient's medications Last Documented On 4 8:18PM ; [facility] Discussed calming techniques such as breathing exercises/meditation and other relaxation techniques Last Documented On 4 1:56PM ; [facility] Counseling for nutrition/teresa ght management provided Last Documented On 4 8:18PM ; [facility] Patient education about medi cation --- I educated patient on medication(s) and diagnosis Last Documented On 3 3:56PM ; [facility] Discussed calming techniques such as breathing exercises/meditation and other relaxation techniques Last Documented On 3 2:43PM ; [facility] Counseling for nutrition/teresa ght management provided Last Documented On 3 3:56PM ; [facility] Discussed good sleep hygiene habits Last Documented On 3 3:56PM ; [facility] I recommended cognitive exer cises such as reading and/or word search puzzles, etc.. Last Documented On 3 10:08PM ; [facility] Patient education about medi cation --- I educated patient on medication(s) and diagnosis Last Documented On 3 9:12PM ; [facility] Discussed calming techniques such as breathing exercises/meditation and other relaxation techniques Last Documented On 3 2:56PM ; [facility] Counseling for nutrition/teresa ght management provided Last Documented On 3 9:12PM ; [facility] Reviewed side effects and Ri sks/Benefits analysis Last Documented On 3 9:12PM ; [facility] I recommended cognitive exer cises such as reading and/or word search puzzles, etc.. Last Documented On 3 9:12PM ; [facility] Patient education about medi cation --- I educated patient on medication(s) and diagnosis Last Documented On 3 8:15PM ; [facility] Discussed calming techniques such as breathing exercises/meditation and other relaxation techniques Last Documented On 3 3:51PM ; [facility] Patient education about medi cation --- I educated patient on medication(s) and diagnosis Last Documented On 3 4:11PM ; [facility] Discussed calming techniques such as yoga meditation to help relieve some anxiety symptoms Last Documented On 3 3:50PM ; [facility] Discussed calming techniques such as breathing exercises and other relaxation techniques Last Documented On 3 3:50PM ; [facility] Discussed good sleep hygiene habits Last Documented On 3 4:11PM ; [facility] Patient education about medi cation --- I educated patient on medication(s) and diagnosis Last Documented On 3 8:55PM ; [facility] Discussed calming techniques such as yoga meditation to help relieve some anxiety symptoms Last Documented On 3 8:27PM ; [facility] Discussed calming techniques such as breathing exercises and other relaxation techniques Last Documented On 3 8:27PM ; [facility] Patient education about medi cation --- I educated patient on medication(s) and diagnosis Last Documented On 2 2:05PM ; [facility] Discussed calming techniques such as yoga meditation to help relieve some anxiety symptoms Last Documented On 2 1:19PM ; [facility] Discussed calming techniques such as breathing exercises and other relaxation techniques Last Documented On 2 1:19PM ; [facility] Discussed good sleep hygiene habits Last Documented On 2 2:05PM ; [facility] Assessments Includes: Assessments for all patient encounters Findings Encounter Date Adult attention deficit hype ractivity disorder TELEHEALTH with EILEEN VINCENT MD 10/17/2022 Last Documented On 3 1:02AM ; [facility] Bipolar I disorder TELEHEALTH with EILEEN DE LA VEGA MD 10/17/2022 Last Documented On 3 1:02AM ; [facility] Dementia TELEHEALTH with EILEEN CONNORS MD 10/17/2022 Last Documented On 3 1:02AM ; [facility] Depressive disorder TELEHEALTH with EILEEN VINCENT MD 10/17/2022 Last Documented On 3 1:02AM ; [facility] Generalized anxiety disorder TELEHEALTH with MET LEONIDES VINCENT MD 10/17/2022 Last Documented On 3 1:02AM ; [facility] Psychophysiological insomnia TELEHEALTH with MET LEONIDES VINCENT MD 10/17/2022 Last Documented On 3 1:02AM ; [facility] Restless legs syndrome TELEHEALTH with EILEEN VINCENT MD 10/17/2022 Last Documented On 3 1:02AM ; [facility] Psychophysiological insomnia * PHONE CALL with Elizabeth VINCENT MD 07/31/2022 Last Documented On 2 12:03PM ; [facility] Adult attention deficit hype ractivity disorder TELEHEALTH with EILEEN VINCENT MD 07/17/2022 Last Documented On 2 12:56PM ; [facility] Bipolar I disorder TELEHEALTH with EILEEN DE LA VEGA MD 07/17/2022 Last Documented On 2 12:56PM ; [facility] Dementia TELEHEALTH with EILEEN CONNORS MD 07/17/2022 Last Documented On 2 12:56PM ; [facility] Depressive disorder TELEHEALTH with EILEEN VINCENT MD 07/17/2022 Last Documented On 2 12:56PM ; [facility] Generalized anxiety disorder TELEHEALTH with MET LEONIDES VINCENT MD 07/17/2022 Last Documented On 2 12:56PM ; [facility] Psychophysiological insomnia TELEHEALTH with MET LEONIDES VINCENT MD 07/17/2022 Last Documented On 2 12:56PM ; [facility] Restless legs syndrome TELEHEALTH with EILEEN VINCENT MD 07/17/2022 Last Documented On 2 12:56PM ; [facility] Psychophysiological insomnia * PHONE CALL with Elizabeth VINCENT MD 04/11/2022 Last Documented On 2 6:59PM ; [facility] Adult attention deficit hype ractivity disorder TELEHEALTH with EILEEN VINCENT MD 04/05/2022 Last Documented On 2 12:54PM ; [facility] Bipolar I disorder TELEHEALTH with EILEEN DE LA VEGA MD 04/05/2022 Last Documented On 2 12:54PM ; [facility] Dementia TELEHEALTH with EILEEN CONNORS MD 04/05/2022 Last Documented On 2 12:54PM ; [facility] Depressive disorder TELEHEALTH with EILEEN VINCENT MD 04/05/2022 Last Documented On 2 12:54PM ; [facility] Generalized anxiety disorder TELEHEALTH with MET LEONIDES VINCENT MD 04/05/2022 Last Documented On 2 12:54PM ; [facility] Psychophysiological insomnia TELEHEALTH with MET LEONIDES VINCENT MD 04/05/2022 Last Documented On 2 12:54PM ; [facility] Restless legs syndrome TELEHEALTH with EILEEN VINCENT MD 04/05/2022 Last Documented On 2 12:54PM ; [facility] Adult attention deficit hype ractivity disorder TELEHEALTH with EILEEN VINCENT MD 11/25/2021 Last Documented On 2 8:02AM ; [facility] Bipolar I disorder TELEHEALTH with EILEEN DE LA VEGA MD 11/25/2021 Last Documented On 2 8:02AM ; [facility] Dementia TELEHEALTH with EILEEN CONNORS MD 11/25/2021 Last Documented On 2 8:02AM ; [facility] Depressive disorder TELEHEALTH with EILEEN VINCENT MD 11/25/2021 Last Documented On 2 8:02AM ; [facility] Generalized anxiety disorder TELEHEALTH with MET LEONIDES VINCENT MD 11/25/2021 Last Documented On 2 8:02AM ; [facility] Psychophysiological insomnia TELEHEALTH with MET LEONIDES VINCENT MD 11/25/2021 Last Documented On 2 8:02AM ; [facility] Restless legs syndrome * PHONE CALL with EILEEN VINCENT MD 08/02/2021 Last Documented On 1 12:34PM ; [facility] Adult attention deficit hype ractivity disorder TELEHEALTH with EILEEN VINCENT MD 07/29/2021 Last Documented On 2 8:23AM ; [facility] Bipolar I disorder TELEHEALTH with EILEEN DE LA VEGA MD 07/29/2021 Last Documented On 2 8:23AM ; [facility] Dementia TELEHEALTH with EILEEN CONNORS MD 07/29/2021 Last Documented On 2 8:23AM ; [facility] Depressive disorder TELEHEALTH with EILEEN VINCENT MD 07/29/2021 Last Documented On 2 8:23AM ; [facility] Generalized anxiety disorder TELEHEALTH with MET LEONIDES VINCENT MD 07/29/2021 Last Documented On 2 8:23AM ; [facility] Psychophysiological insomnia TELEHEALTH with MET LEONIDES VINCENT MD 07/29/2021 Last Documented On 2 8:23AM ; [facility] Adult attention deficit hype ractivity disorder TELEHEALTH with EILEEN VINCENT MD 04/19/2021 Last Documented On 1 8:53AM ; [facility] Bipolar I disorder TELEHEALTH with EILEEN DE LA VEGA MD 04/19/2021 Last Documented On 1 8:53AM ; [facility] Dementia TELEHEALTH with EILEEN CONNORS MD 04/19/2021 Last Documented On 1 8:53AM ; [facility] Depressive disorder TELEHEALTH with EILEEN VINCENT MD 04/19/2021 Last Documented On 1 8:53AM ; [facility] Generalized anxiety disorder TELEHEALTH with MET LEONIDES VINCENT MD 04/19/2021 Last Documented On 1 8:53AM ; [facility] Psychophysiological insomnia TELEHEALTH with MET LEONIDES VINCENT MD 04/19/2021 Last Documented On 1 8:53AM ; [facility] Adult attention deficit hype ractivity disorder TELEHEALTH with EILEEN VINCENT MD 12/20/2020 Last Documented On 1 1:57PM ; [facility] Bipolar I disorder TELEHEALTH with EILEEN DE LA VEGA MD 12/20/2020 Last Documented On 1 1:57PM ; [facility] Dementia TELEHEALTH with EILEEN CONNORS MD 12/20/2020 Last Documented On 1 1:57PM ; [facility] Depressive disorder TELEHEALTH with EILEEN VINCENT MD 12/20/2020 Last Documented On 1 1:57PM ; [facility] Generalized anxiety disorder TELEHEALTH with MET LEONIDES VINCENT MD 12/20/2020 Last Documented On 1 1:57PM ; [facility] Psychophysiological insomnia TELEHEALTH with MET LEONIDES VINCENT MD 12/20/2020 Last Documented On 1 1:57PM ; [facility] Generalized anxiety disorder * PHONE CALL with Elizabeth VINCENT MD 10/08/2020 Last Documented On 1 4:25PM ; [facility] Adult attention deficit hype ractivity disorder TELEHEALTH with EILEEN VINCENT MD 08/23/2020 Last Documented On 1 11:00PM ; [facility] Bipolar I disorder TELEHEALTH with EILEEN DE LA VEGA MD 08/23/2020 Last Documented On 1 11:00PM ; [facility] Dementia TELEHEALTH with EILEEN CONNORS MD 08/23/2020 Last Documented On 1 11:00PM ; [facility] Depressive disorder TELEHEALTH with EILEEN VINCENT MD 08/23/2020 Last Documented On 1 11:00PM ; [facility] Generalized anxiety disorder TELEHEALTH with MET LEONIDES VINCENT MD 08/23/2020 Last Documented On 1 11:00PM ; [facility] Psychophysiological insomnia TELEHEALTH with MET LEONIDES VINCENT MD 08/23/2020 Last Documented On 1 11:00PM ; [facility] Adult attention deficit hype ractivity disorder GENERAL OFFICE VISIT with EILEEN VINCENT MD 04/21/2020 Last Documented On 0 8:09AM ; [facility] Bipolar I disorder GENERAL OFFICE VISIT with MET LEONIDES VINCENT MD 04/21/2020 Last Documented On 0 8:09AM ; [facility] Dementia GENERAL OFFICE VISIT with ROBERT VINCENT MD 04/21/2020 Last Documented On 0 8:09AM ; [facility] Depressive disorder GENERAL OFFICE VISIT with ME MARI VINCENT MD 04/21/2020 Last Documented On 0 8:09AM ; [facility] Generalized anxiety disorder GENERAL OFF ICE VISIT with EILEEN VINCENT MD 04/21/2020 Last Documented On 0 8:09AM ; [facility] Psychophysiological insomnia GENERAL OFF ICE VISIT with EILEEN VINCENT MD 04/21/2020 Last Documented On 0 8:09AM ; [facility] Adult attention deficit hype ractivity disorder GENERAL OFFICE VISIT with EILEEN VINCENT MD 12/15/2019 Last Documented On 0 11:41PM ; [facility] Bipolar I disorder GENERAL OFFICE VISIT with MET LEONIDES VINCENT MD 12/15/2019 Last Documented On 0 11:41PM ; [facility] Dementia GENERAL OFFICE VISIT with ROBERT VINCENT MD 12/15/2019 Last Documented On 0 11:41PM ; [facility] Depressive disorder GENERAL OFFICE VISIT with ME MARI VINCENT MD 12/15/2019 Last Documented On 0 11:41PM ; [facility] Generalized anxiety disorder GENERAL OFF ICE VISIT with EILEEN VINCENT MD 12/15/2019 Last Documented On 0 11:41PM ; [facility] Psychophysiological insomnia GENERAL OFF ICE VISIT with EILEEN VINCENT MD 12/15/2019 Last Documented On 0 11:41PM ; [facility] Adult attention deficit hype ractivity disorder GENERAL OFFICE VISIT with EILEEN VINCENT MD 08/21/2019 Last Documented On 0 2:23AM ; [facility] Bipolar I disorder GENERAL OFFICE VISIT with MET LEONIDES VINCENT MD 08/21/2019 Last Documented On 0 2:23AM ; [facility] Dementia GENERAL OFFICE VISIT with ROBERT VINCENT MD 08/21/2019 Last Documented On 0 2:23AM ; [facility] Depressive disorder GENERAL OFFICE VISIT with ME MARI VINCENT MD 08/21/2019 Last Documented On 0 2:23AM ; [facility] Generalized anxiety disorder GENERAL OFF ICE VISIT with EILEEN VINCENT MD 08/21/2019 Last Documented On 0 2:23AM ; [facility] Psychophysiological insomnia GENERAL OFF ICE VISIT with EILEEN VINCENT MD 08/21/2019 Last Documented On 0 2:23AM ; [facility] Adult attention deficit hype ractivity disorder GENERAL OFFICE VISIT with EILEEN VINCENT MD 04/10/2019 Last Documented On 9 11:01PM ; [facility] Bipolar I disorder GENERAL OFFICE VISIT with MET LEONIDES VINCENT MD 04/10/2019 Last Documented On 9 11:01PM ; [facility] Dementia GENERAL OFFICE VISIT with ROBERT VINCENT MD 04/10/2019 Last Documented On 9 11:01PM ; [facility] Depressive disorder GENERAL OFFICE VISIT with ME MARI VINCENT MD 04/10/2019 Last Documented On 9 11:01PM ; [facility] Generalized anxiety disorder GENERAL OFF ICE VISIT with EILEEN VINCENT MD 04/10/2019 Last Documented On 9 11:01PM ; [facility] Psychophysiological insomnia GENERAL OFF ICE VISIT with EILEEN VINCENT MD 04/10/2019 Last Documented On 9 11:01PM ; [facility] Adult attention deficit hype ractivity disorder * PHONE CALL with EILEEN VINCENT MD 12/24/2018 Last Documented On 9 8:05PM ; [facility] Adult attention deficit hype ractivity disorder GENERAL OFFICE VISIT with EILEEN VINCENT MD 11/28/2018 Last Documented On 9 3:48AM ; [facility] Bipolar I disorder GENERAL OFFICE VISIT with MET LEONIDES VINCENT MD 11/28/2018 Last Documented On 9 3:48AM ; [facility] Dementia GENERAL OFFICE VISIT with ROBERT VINCENT MD 11/28/2018 Last Documented On 9 3:48AM ; [facility] Depressive disorder GENERAL OFFICE VISIT with ME MARI VINCENT MD 11/28/2018 Last Documented On 9 3:48AM ; [facility] Generalized anxiety disorder GENERAL OFF ICE VISIT with EILEEN VINCENT MD 11/28/2018 Last Documented On 9 3:48AM ; [facility] Psychophysiological insomnia GENERAL OFF ICE VISIT with EILEEN VINCENT MD 11/28/2018 Last Documented On 9 3:48AM ; [facility] Bipolar I disorder * PHONE CALL with EILEEN VINCENT MD 09/24/2018 Last Documented On 9 1:32PM ; [facility] Adult attention deficit hype ractivity disorder GENERAL OFFICE VISIT with EILEEN VINCENT MD 06/12/2018 Last Documented On 8 6:20AM ; [facility] Bipolar I disorder GENERAL OFFICE VISIT with MET LEONIDES VINCENT MD 06/12/2018 Last Documented On 8 6:20AM ; [facility] Dementia GENERAL OFFICE VISIT with ROBERT VINCENT MD 06/12/2018 Last Documented On 8 6:20AM ; [facility] Depressive disorder GENERAL OFFICE VISIT with ME MARI VINCENT MD 06/12/2018 Last Documented On 8 6:20AM ; [facility] Generalized anxiety disorder GENERAL OFF ICE VISIT with EILEEN VINCENT MD 06/12/2018 Last Documented On 8 6:20AM ; [facility] Psychophysiological insomnia GENERAL OFF ICE VISIT with EILEEN VINCENT MD 06/12/2018 Last Documented On 8 6:20AM ; [facility] Adult attention deficit hype ractivity disorder * PHONE CALL with EILEEN VINCENT MD 04/09/2018 Last Documented On 8 5:48PM ; [facility] Adult attention deficit hype ractivity disorder GENERAL OFFICE VISIT with EILEEN VINCENT MD 01/03/2018 Last Documented On 8 9:42PM ; [facility] Bipolar I disorder GENERAL OFFICE VISIT with MET LEONIDES VINCENT MD 01/03/2018 Last Documented On 8 9:42PM ; [facility] Dementia GENERAL OFFICE VISIT with ROBERT VINCENT MD 01/03/2018 Last Documented On 8 9:42PM ; [facility] Generalized anxiety disorder GENERAL OFF ICE VISIT with EILEEN VINCENT MD 01/03/2018 Last Documented On 8 9:42PM ; [facility] Psychophysiological insomnia GENERAL OFF ICE VISIT with EILEEN VINCENT MD 01/03/2018 Last Documented On 8 9:42PM ; [facility] Adult attention deficit hype ractivity disorder GENERAL OFFICE VISIT with EILEEN VINCENT MD 09/06/2017 Last Documented On 8 7:38AM ; [facility] Bipolar I disorder GENERAL OFFICE VISIT with MET LEONIDES VINCENT MD 09/06/2017 Last Documented On 8 7:38AM ; [facility] Dementia GENERAL OFFICE VISIT with ROBERT VINCENT MD 09/06/2017 Last Documented On 8 7:38AM ; [facility] Generalized anxiety disorder GENERAL OFF ICE VISIT with EILEEN VINCENT MD 09/06/2017 Last Documented On 8 7:38AM ; [facility] Psychophysiological insomnia GENERAL OFF ICE VISIT with EILEEN VINCENT MD 09/06/2017 Last Documented On 8 7:38AM ; [facility] Adult attention deficit hype ractivity disorder * PHONE CALL with EILEEN VINCENT MD 06/04/2017 Last Documented On 7 10:52AM ; [facility] Adult attention deficit hype ractivity disorder GENERAL OFFICE VISIT with EILEEN VINCENT MD 05/09/2017 Last Documented On 7 8:05AM ; [facility] Bipolar I disorder GENERAL OFFICE VISIT with MET LEONIDES VINCENT MD 05/09/2017 Last Documented On 7 8:05AM ; [facility] Dementia GENERAL OFFICE VISIT with ROBERT VINCENT MD 05/09/2017 Last Documented On 7 8:05AM ; [facility] Generalized anxiety disorder GENERAL OFF ICE VISIT with EILEEN VINCENT MD 05/09/2017 Last Documented On 7 8:05AM ; [facility] Psychophysiological insomnia GENERAL OFF ICE VISIT with EILEEN VINCENT MD 05/09/2017 Last Documented On 7 8:05AM ; [facility] Adult attention deficit hype ractivity disorder * PHONE CALL with EILEEN VINCENT MD 05/07/2017 Last Documented On 7 12:21PM ; [facility] Adult attention deficit hype ractivity disorder GENERAL OFFICE VISIT with EILEEN VINCENT MD 04/06/2017 Last Documented On 7 2:27AM ; [facility] Bipolar I disorder GENERAL OFFICE VISIT with MET LEONIDES VINCENT MD 04/06/2017 Last Documented On 7 2:27AM ; [facility] Dementia GENERAL OFFICE VISIT with ROBERT VINCENT MD 04/06/2017 Last Documented On 7 2:27AM ; [facility] Generalized anxiety disorder GENERAL OFF ICE VISIT with EILEEN VINCENT MD 04/06/2017 Last Documented On 7 2:27AM ; [facility] Psychophysiological insomnia GENERAL OFF ICE VISIT with EILEEN VINCENT MD 04/06/2017 Last Documented On 7 2:27AM ; [facility] Adult attention deficit hype ractivity disorder * PHONE CALL with EILEEN VINCENT MD 02/12/2017 Last Documented On 7 11:40AM ; [facility] Adult attention deficit hype ractivity disorder GENERAL OFFICE VISIT with EILEEN VINCENT MD 01/16/2017 Last Documented On 7 11:36AM ; [facility] Bipolar I disorder GENERAL OFFICE VISIT with MET LEONIDES VINCENT MD 01/16/2017 Last Documented On 7 11:36AM ; [facility] Dementia GENERAL OFFICE VISIT with ROBERT VINCENT MD 01/16/2017 Last Documented On 7 11:36AM ; [facility] Generalized anxiety disorder GENERAL OFF ICE VISIT with EILEEN VINCENT MD 01/16/2017 Last Documented On 7 11:36AM ; [facility] Psychophysiological insomnia GENERAL OFF ICE VISIT with EILEEN VINCENT MD 01/16/2017 Last Documented On 7 11:36AM ; [facility] Bipolar I disorder GENERAL OFFICE VISIT with MET LEONIDES VINCENT MD 10/12/2016 Last Documented On 7 4:03PM ; [facility] Dementia GENERAL OFFICE VISIT with ROBERT VINCENT MD 10/12/2016 Last Documented On 7 4:03PM ; [facility] Generalized anxiety disorder GENERAL OFF ICE VISIT with EILEEN VINCENT MD 10/12/2016 Last Documented On 7 4:03PM ; [facility] Psychophysiological insomnia GENERAL OFF ICE VISIT with EILEEN VINCENT MD 10/12/2016 Last Documented On 7 4:03PM ; [facility] Bipolar I disorder GENERAL OFFICE VISIT with MET LEONIDES VINCENT MD 08/01/2016 Last Documented On 6 3:13PM ; [facility] Dementia GENERAL OFFICE VISIT with ROBERT VINCENT MD 08/01/2016 Last Documented On 6 3:13PM ; [facility] Generalized anxiety disorder GENERAL OFF ICE VISIT with EILEEN VINCENT MD 08/01/2016 Last Documented On 6 3:13PM ; [facility] Persistent insomnia GENERAL OFFICE VISIT with ME MARI VINCENT MD 08/01/2016 Last Documented On 6 3:13PM ; [facility] Bipolar I disorder GENERAL OFFICE VISIT with MET LEONIDES VINCENT MD 03/13/2016 Last Documented On 6 7:20AM ; [facility] Dementia GENERAL OFFICE VISIT with ROBERT VINCENT MD 03/13/2016 Last Documented On 6 7:20AM ; [facility] Generalized anxiety disorder GENERAL OFF ICE VISIT with EILEEN VINCENT MD 03/13/2016 Last Documented On 6 7:20AM ; [facility] Persistent insomnia GENERAL OFFICE VISIT with ME MARI VINCENT MD 03/13/2016 Last Documented On 6 7:20AM ; [facility] Bipolar I disorder GENERAL OFFICE VISIT with MET LEONIDES VINCENT MD 11/10/2015 Last Documented On 6 11:24AM ; [facility] Dementia GENERAL OFFICE VISIT with ROBERT VINCENT MD 11/10/2015 Last Documented On 6 11:24AM ; [facility] Generalized anxiety disorder GENERAL OFF ICE VISIT with EILEEN VINCENT MD 11/10/2015 Last Documented On 6 11:24AM ; [facility] Persistent insomnia GENERAL OFFICE VISIT with ME MARI VINCENT MD 11/10/2015 Last Documented On 6 11:24AM ; [facility] Bipolar I disorder GENERAL OFFICE VISIT with MET LEONIDES VINCENT MD 07/29/2015 Last Documented On 5 9:27PM ; [facility] Dementia GENERAL OFFICE VISIT with ROBERT VINCENT MD 07/29/2015 Last Documented On 5 9:27PM ; [facility] Generalized anxiety disorder GENERAL OFF ICE VISIT with EILEEN VINCENT MD 07/29/2015 Last Documented On 5 9:27PM ; [facility] Persistent insomnia GENERAL OFFICE VISIT with ME MARI VINCENT MD 07/29/2015 Last Documented On 5 9:27PM ; [facility] Bipolar I disorder GENERAL OFFICE VISIT with MET LEONIDES VINCENT MD 05/24/2015 Last Documented On 5 12:29PM ; [facility] Dementia GENERAL OFFICE VISIT with ROBERT VINCENT MD 05/24/2015 Last Documented On 5 12:29PM ; [facility] Generalized anxiety disorder GENERAL OFF ICE VISIT with EILEEN VINCENT MD 05/24/2015 Last Documented On 5 12:29PM ; [facility] Persistent insomnia GENERAL OFFICE VISIT with ME MARI VINCENT MD 05/24/2015 Last Documented On 5 12:29PM ; [facility] Bipolar I disorder, most rec ent episode, depressed GENERAL OFFICE VISIT with EILEEN VINCENT MD 01/28/2015 Last Documented On 5 10:16PM ; [facility] Generalized anxiety disorder GENERAL OFF ICE VISIT with EILEEN VINCENT MD 01/28/2015 Last Documented On 5 10:16PM ; [facility] Obstructive sleep apnea GENERAL OFFICE VISIT wit h EILEEN VINCENT MD 01/28/2015 Last Documented On 5 10:16PM ; [facility] Persistent insomnia GENERAL OFFICE VISIT with ME MARI VINCENT MD 01/28/2015 Last Documented On 5 10:16PM ; [facility]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 VINCENT MD 01/28/2015 Last Documented On 5 10:16PM ; [facility] Restless legs syndrome GENERAL OFFICE VISIT with EILEEN VINCENT MD 01/28/2015 Last Documented On 5 10:16PM ; [facility] Bipolar I disorder, most rec ent episode, depressed GENERAL OFFICE VISIT with EILEEN VINCENT MD 10/15/2014 Last Documented On 5 6:55AM ; [facility] Generalized anxiety disorder GENERAL OFF ICE VISIT with EILEEN VINCENT MD 10/15/2014 Last Documented On 5 6:55AM ; [facility] Obstructive sleep apnea GENERAL OFFICE VISIT wit h EILEEN VINCENT MD 10/15/2014 Last Documented On 5 6:55AM ; [facility] Persistent insomnia GENERAL OFFICE VISIT with ME MARI VINCENT MD 10/15/2014 Last Documented On 5 6:55AM ; [facility]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 VINCENT MD 10/15/2014 Last Documented On 5 6:55AM ; [facility] Restless legs syndrome GENERAL OFFICE VISIT with EILEEN VINCENT MD 10/15/2014 Last Documented On 5 6:55AM ; [facility] Bipolar I disorder, most rec ent episode, depressed GENERAL OFFICE VISIT with EILEEN VINCENT MD 07/16/2014 Last Documented On 4 8:07PM ; [facility] Generalized anxiety disorder GENERAL OFF ICE VISIT with EILEEN VINCENT MD 07/16/2014 Last Documented On 4 8:07PM ; [facility] Obstructive sleep apnea GENERAL OFFICE VISIT wit h EILEEN VINCENT MD 07/16/2014 Last Documented On 4 8:07PM ; [facility] Persistent insomnia GENERAL OFFICE VISIT with ME MARI VINCENT MD 07/16/2014 Last Documented On 4 8:07PM ; [facility]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 VINCENT MD 07/16/2014 Last Documented On 4 8:07PM ; [facility] Restless legs syndrome GENERAL OFFICE VISIT with EILEEN VINCENT MD 07/16/2014 Last Documented On 4 8:07PM ; [facility] Bipolar I disorder, most rec ent episode, depressed GENERAL OFFICE VISIT with EILEEN VINCENT MD 06/01/2014 Last Documented On 4 10:05AM ; [facility] Generalized anxiety disorder GENERAL OFF ICE VISIT with EIELEN VINCENT MD 06/01/2014 Last Documented On 4 10:05AM ; [facility] Obstructive sleep apnea GENERAL OFFICE VISIT wit h EILEEN VINCENT MD 06/01/2014 Last Documented On 4 10:05AM ; [facility] Persistent insomnia GENERAL OFFICE VISIT with ME MARI VINCENT MD 06/01/2014 Last Documented On 4 10:05AM ; [facility]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 VINCENT MD 06/01/2014 Last Documented On 4 10:05AM ; [facility] Restless legs syndrome GENERAL OFFICE VISIT with EILEEN VINCENT MD 06/01/2014 Last Documented On 4 10:05AM ; [facility] Bipolar I disorder, most rec ent episode, depressed GENERAL OFFICE VISIT with EILEEN VINCENT MD 04/30/2014 Last Documented On 4 10:29PM ; [facility] Generalized anxiety disorder GENERAL OFF ICE VISIT with EILEEN VINCENT MD 04/30/2014 Last Documented On 4 10:29PM ; [facility] Obstructive sleep apnea GENERAL OFFICE VISIT wit h EILEEN VINCENT MD 04/30/2014 Last Documented On 4 10:29PM ; [facility] Persistent insomnia GENERAL OFFICE VISIT with ME MARI VINCENT MD 04/30/2014 Last Documented On 4 10:29PM ; [facility]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 VINCENT MD 04/30/2014 Last Documented On 4 10:29PM ; [facility] Restless legs syndrome GENERAL OFFICE VISIT with EILEEN VINCENT MD 04/30/2014 Last Documented On 4 10:29PM ; [facility] Bipolar I disorder, most rec ent episode, depressed GENERAL OFFICE VISIT with EILEEN VINCENT MD 04/07/2014 Last Documented On 4 10:43PM ; [facility] Generalized anxiety disorder GENERAL OFF ICE VISIT with EILEEN VINCENT MD 04/07/2014 Last Documented On 4 10:43PM ; [facility] Obstructive sleep apnea GENERAL OFFICE VISIT wit h EILEEN VINCENT MD 04/07/2014 Last Documented On 4 10:43PM ; [facility] Persistent insomnia GENERAL OFFICE VISIT with ME MARI VINCENT MD 04/07/2014 Last Documented On 4 10:43PM ; [facility]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 VINCENT MD 04/07/2014 Last Documented On 4 10:43PM ; [facility] Restless legs syndrome GENERAL OFFICE VISIT with EILEEN VINCENT MD 04/07/2014 Last Documented On 4 10:43PM ; [facility] Bipolar I disorder, most rec ent episode, depressed GENERAL OFFICE VISIT with EILEEN VINCENT MD 02/09/2014 Last Documented On 4 9:33PM ; [facility] Generalized anxiety disorder GENERAL OFF ICE VISIT with EILEEN VINCENT MD 02/09/2014 Last Documented On 4 9:33PM ; [facility] Obstructive sleep apnea GENERAL OFFICE VISIT wit h EILEEN VINCENT MD 02/09/2014 Last Documented On 4 9:33PM ; [facility] Persistent insomnia GENERAL OFFICE VISIT with ME MARI VINCENT MD 02/09/2014 Last Documented On 4 9:33PM ; [facility]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 VINCENT MD 02/09/2014 Last Documented On 4 9:33PM ; [facility] Restless legs syndrome GENERAL OFFICE VISIT with EILEEN VINCENT MD 02/09/2014 Last Documented On 4 9:33PM ; [facility] Bipolar I disorder, most rec ent episode, depressed GENERAL OFFICE VISIT with EILEEN VINCENT MD 11/21/2013 Last Documented On 4 9:57PM ; [facility] Generalized anxiety disorder GENERAL OFF ICE VISIT with EILEEN VINCENT MD 11/21/2013 Last Documented On 4 9:57PM ; [facility] Obstructive sleep apnea GENERAL OFFICE VISIT wit h EILEEN VINCENT MD 11/21/2013 Last Documented On 4 9:57PM ; [facility] Persistent insomnia GENERAL OFFICE VISIT with ME MARI VINCENT MD 11/21/2013 Last Documented On 4 9:57PM ; [facility]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 VINCENT MD 11/21/2013 Last Documented On 4 9:57PM ; [facility] Restless legs syndrome GENERAL OFFICE VISIT with EILEEN VINCENT MD 11/21/2013 Last Documented On 4 9:57PM ; [facility] Bipolar I disorder, most rec ent episode, depressed GENERAL OFFICE VISIT with EILEEN VINCENT MD 10/23/2013 Last Documented On 4 8:27PM ; [facility] Generalized anxiety disorder GENERAL OFF ICE VISIT with EILEEN VINCENT MD 10/23/2013 Last Documented On 4 8:27PM ; [facility] Obstructive sleep apnea GENERAL OFFICE VISIT wit h EILEEN VINCENT MD 10/23/2013 Last Documented On 4 8:27PM ; [facility]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 VINCENT MD 10/23/2013 Last Documented On 4 8:27PM ; [facility] Restless legs syndrome GENERAL OFFICE VISIT with EILEEN VINCENT MD 10/23/2013 Last Documented On 4 8:27PM ; [facility] Bipolar I disorder, most rec ent episode, depressed GENERAL OFFICE VISIT with EILEEN VINCENT MD 07/28/2013 Last Documented On 3 10:13PM ; [facility] Generalized anxiety disorder GENERAL OFF ICE VISIT with EILEEN VINCENT MD 07/28/2013 Last Documented On 3 10:13PM ; [facility] Obstructive sleep apnea GENERAL OFFICE VISIT wit h EILEEN VINCENT MD 07/28/2013 Last Documented On 3 10:13PM ; [facility]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 VINCENT MD 07/28/2013 Last Documented On 3 10:13PM ; [facility] Restless legs syndrome GENERAL OFFICE VISIT with EILEEN VINCENT MD 07/28/2013 Last Documented On 3 10:13PM ; [facility] Bipolar I disorder, most rec ent episode, depressed GENERAL OFFICE VISIT with EILEEN VINCENT MD 05/07/2013 Last Documented On 3 9:22PM ; [facility] Generalized anxiety disorder GENERAL OFF ICE VISIT with EILEEN VINCENT MD 05/07/2013 Last Documented On 3 9:22PM ; [facility] Obstructive sleep apnea GENERAL OFFICE VISIT wit h EILEEN VINCENT MD 05/07/2013 Last Documented On 3 9:22PM ; [facility]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 VINCENT MD 05/07/2013 Last Documented On 3 9:22PM ; [facility] Bipolar I disorder, most rec ent episode, depressed GENERAL OFFICE VISIT with EILEEN VINCENT MD 01/28/2013 Last Documented On 3 8:27PM ; [facility] Generalized anxiety disorder GENERAL OFF ICE VISIT with EILEEN VINCENT MD 01/28/2013 Last Documented On 3 8:27PM ; [facility]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 VINCENT MD 01/28/2013 Last Documented On 3 8:27PM ; [facility] Bipolar I disorder, most rec ent episode, depressed GENERAL OFFICE VISIT with EILEEN VINCENT MD 11/08/2012 Last Documented On 3 4:16PM ; [facility] Generalized anxiety disorder GENERAL OFF ICE VISIT with EILEEN VINCENT MD 11/08/2012 Last Documented On 3 4:16PM ; [facility]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 VINCENT MD 11/08/2012 Last Documented On 3 4:16PM ; [facility] Bipolar I disorder, most rec ent episode, depressed GENERAL OFFICE VISIT with EILEEN VINCENT MD 09/04/2012 Last Documented On 3 8:57PM ; [facility] Generalized anxiety disorder GENERAL OFF ICE VISIT with EILEEN VINCENT MD 09/04/2012 Last Documented On 3 8:57PM ; [facility]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 VINCENT MD 09/04/2012 Last Documented On 3 8:57PM ; [facility] Bipolar I disorder, most rec ent episode, depressed - severe GENERAL OFFICE VISIT with EILEEN VINCENT MD 08/07/2012 Last Documented On 2 5:42PM ; [facility] Generalized anxiety disorder GENERAL OFF ICE VISIT with EILEEN VINCENT MD 08/07/2012 Last Documented On 2 5:42PM ; [facility]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, uncomplicated GENERA L OFFICE VISIT with EILEEN VINCENT MD 08/07/2012 Last Documented On 2 5:42PM ; [facility] Instructions Includes: Instructions for all patient encounters Instructions to patient Lose weight - pt gained 7 lb s since last seen Last Documented On 2 12:51PM ; [facility] Lose weight Last Documented On 1 11:32AM ; [facility] Lose weight Last Documented On 1 11:48AM ; [facility] Lose weight Last Documented On 1 12:04PM ; [facility] Lose weight Last Documented On 1 11:25AM ; [facility] Lose weight Last Documented On 0 11:49AM ; [facility] Education and Decision Aids were provided during visit for: Patient counseling I discuss ed risk, benefits, and side effects of sleep aid - Belsomra - including the possibility of sleep related behaviors i.e. sleepwalking, sleeptalking, sleepdriving, etc... Pt verbalized understanding. So far, pt denied sleep related behaviors Last Documented On 3 12:52AM ; [facility] Discussed good sleep hygiene habits Last Documented On 3 11:27AM ; [facility] I recommended cognitive exer cises such as reading and/or word search puzzles, etc.. Last Documented On 3 11:51PM ; [facility] Patient education about medi cation ---Education was given on medication(s) and diagnosis. I reviewed the risks, benefits and side effects of patient's medications Last Documented On 2 11:24AM ; [facility] Discussed calming techniques such as breathing exercises and other relaxation techniques Last Documented On 2 11:24AM ; [facility] Counseling for nutrition/teresa ght management provided Last Documented On 2 11:45AM ; [facility] Discussed good sleep hygiene habits Last Documented On 2 11:45AM ; [facility] I recommended cognitive exer cises such as reading and/or word search puzzles, etc.. Last Documented On 2 12:49PM ; [facility] Patient education about medi cation --- I educated patient on medication(s) and diagnosis. I reviewed the risks, benefits and side effects of patient's medications Last Documented On 2 11:01AM ; [facility] Discussed calming techniques such as breathing exercises and other relaxation techniques Last Documented On 2 11:01AM ; [facility] Discussed good sleep hygiene habits Last Documented On 2 11:48AM ; [facility] Patient education about medi cation --- I educated patient on medication(s) and diagnosis. I reviewed the risks, benefits and side effects of patient's medications Last Documented On 2 11:15AM ; [facility] Discussed calming techniques such as breathing exercises and other relaxation techniques Last Documented On 2 11:15AM ; [facility] Discussed good sleep hygiene habits Last Documented On 2 11:20AM ; [facility] I recommended cognitive exer cises such as reading and/or word search puzzles, etc.. Last Documented On 2 7:56AM ; [facility] Patient education about medi cation --- I educated patient on medication(s) and diagnosis. I reviewed the risks, benefits and side effects of patient's medications Last Documented On 1 11:29AM ; [facility] Discussed calming techniques such as breathing exercises and other relaxation techniques Last Documented On 1 11:29AM ; [facility] Counseling for nutrition/teresa ght management provided Last Documented On 11:32AM ; [facility] Patient education about medi cation --- I educated patient on medication(s) and diagnosis. I reviewed the risks, benefits and side effects of patient's medications Last Documented On 1 11:37AM ; [facility] Discussed calming techniques such as breathing exercises and other relaxation techniques Last Documented On 1 11:37AM ; [facility] Counseling for nutrition/teresa ght management provided Last Documented On 1 11:48AM ; [facility] Discussed good sleep hygiene habits Last Documented On 1 11:48AM ; [facility] Patient education about medi cation --- I educated patient on medication(s) and diagnosis. I reviewed the risks, benefits and side effects of patient's medications Last Documented On 1 12:03PM ; [facility] Discussed calming techniques such as breathing exercises and other relaxation techniques Last Documented On 1 12:03PM ; [facility] Counseling for nutrition/teresa ght management provided Last Documented On 1 12:04PM ; [facility] Discussed good sleep hygiene habits Last Documented On 1 12:04PM ; [facility] I recommended cognitive exer cises such as reading and/or word search puzzles, etc.. Last Documented On 1 1:53PM ; [facility] Patient education about medi cation --- I educated patient on medication(s) and diagnosis. I reviewed the risks, benefits and side effects of patient's medications Last Documented On 1 11:24AM ; [facility] Discussed calming techniques such as breathing exercises and other relaxation techniques Last Documented On 1 11:24AM ; [facility] Counseling for nutrition/teresa ght management provided Last Documented On 1 11:25AM ; [facility] I recommended cognitive exer cises such as reading and/or word search puzzles, etc.. Last Documented On 1 11:29AM ; [facility] Patient education about medi cation --- I educated patient on medication(s) and diagnosis. I reviewed the risks, benefits and side effects of patient's medications Last Documented On 0 11:14AM ; [facility] Discussed calming techniques such as breathing exercises and other relaxation techniques Last Documented On 0 11:14AM ; [facility] Counseling for nutrition/teresa ght management provided Last Documented On 0 11:49AM ; [facility] Patient education about a pr oper diet Last Documented On 0 11:24AM ; [facility] Patient education about medi cation --- I educated patient on medication(s) and diagnosis. I reviewed the risks, benefits and side effects of patient's medications Last Documented On 0 11:05AM ; [facility] Discussed calming techniques such as breathing exercises and other relaxation techniques Last Documented On 0 11:05AM ; [facility] Counseling for nutrition/teresa ght management provided Last Documented On 0 11:24AM ; [facility] I recommended cognitive exer cises such as reading and/or word search puzzles, etc.. Last Documented On 0 11:34PM ; [facility] Patient education about a pr oper diet Last Documented On 0 11:45AM ; [facility] Patient education about medi cation --- I educated patient on medication(s) and diagnosis. I reviewed the risks, benefits and side effects of patient's medications Last Documented On 0 11:12AM ; [facility] Discussed calming techniques such as breathing exercises and other relaxation techniques Last Documented On 0 11:12AM ; [facility] Counseling for nutrition/teresa ght management provided Last Documented On 0 11:45AM ; [facility] Discussed good sleep hygiene habits Last Documented On 0 2:21AM ; [facility] I recommended cognitive exer cises such as reading and/or word search puzzles, etc.. Last Documented On 0 2:21AM ; [facility] Patient education about a pr oper diet Last Documented On 9 1:50PM ; [facility] Patient education about medi cation --- I educated patient on medication(s) and diagnosis. I reviewed the risks, benefits and side effects of patient's medications Last Documented On 9 1:29PM ; [facility] Discussed calming techniques such as breathing exercises and other relaxation techniques Last Documented On 9 1:29PM ; [facility] Counseling for nutrition/teresa ght management provided Last Documented On 9 1:50PM ; [facility] I recommended cognitive exer cises such as reading and/or word search puzzles, etc.. Last Documented On 9 11:01PM ; [facility] Patient education about a pr oper diet Last Documented On 9 4:10PM ; [facility] Patient education about medi cation --- I educated patient on medication(s) and diagnosis. I reviewed the risks, benefits and side effects of patient's medications Last Documented On 9 3:38PM ; [facility] Discussed calming techniques such as breathing exercises and other relaxation techniques Last Documented On 9 3:38PM ; [facility] Counseling for nutrition/teresa ght management provided Last Documented On 9 4:10PM ; [facility] Discussed good sleep hygiene habits Last Documented On 9 3:37AM ; [facility] I recommended cognitive exer cises such as reading and/or word search puzzles, etc.. Last Documented On 9 3:37AM ; [facility] Patient education about a pr oper diet Last Documented On 8 2:31PM ; [facility] Patient education about medi cation --- I educated patient on medication(s) and diagnosis. I reviewed the risks, benefits and side effects of patient's medications Last Documented On 8 2:26PM ; [facility] Discussed calming techniques such as breathing exercises and other relaxation techniques Last Documented On 8 2:26PM ; [facility] Counseling for nutrition/teresa ght management provided Last Documented On 8 2:31PM ; [facility] I recommended cognitive exer cises such as reading and/or word search puzzles, etc.. Last Documented On 8 6:02AM ; [facility] Patient education about medi cation --- I educated patient on medication(s) and diagnosis. I reviewed the risks, benefits and side effects of patient's medications Last Documented On 8 11:13AM ; [facility] Discussed calming techniques such as breathing exercises and other relaxation techniques Last Documented On 8 11:13AM ; [facility] Counseling for nutrition/teresa ght management provided Last Documented On 8 9:42PM ; [facility] I recommended cognitive exer cises such as reading and/or word search puzzles, etc.. Last Documented On 8 9:42PM ; [facility] Patient education about medi cation --- I educated patient on medication(s) and diagnosis. I reviewed the risks, benefits and side effects of patient's medications Last Documented On 8 10:54AM ; [facility] Discussed calming techniques such as breathing exercises and other relaxation techniques Last Documented On 8 10:54AM ; [facility] Counseling for nutrition/teresa ght management provided Last Documented On 8 7:35AM ; [facility] I recommended cognitive exer cises such as reading and/or word search puzzles, etc.. Last Documented On 8 7:35AM ; [facility] Patient education about medi cation --- I educated patient on medication(s) and diagnosis. I reviewed the risks, benefits and side effects of patient's medications Last Documented On 7 11:30AM ; [facility] Discussed calming techniques such as breathing exercises and other relaxation techniques Last Documented On 7 11:30AM ; [facility] Counseling for nutrition/teresa ght management provided Last Documented On 7 8:02AM ; [facility] I recommended cognitive exer cises such as reading and/or word search puzzles, etc.. Last Documented On 7 8:02AM ; [facility] Patient education about medi cation --- I educated patient on medication(s) and diagnosis. I reviewed the risks, benefits and side effects of patient's medications Last Documented On 7 11:17AM ; [facility] Discussed calming techniques such as breathing exercises and other relaxation techniques Last Documented On 7 11:17AM ; [facility] Counseling for nutrition/teresa ght management provided Last Documented On 7 2:20AM ; [facility] I recommended cognitive exer cises such as reading and/or word search puzzles, etc.. Last Documented On 7 2:20AM ; [facility] Patient education about medi cation --- I educated patient on medication(s) and diagnosis. I reviewed the risks, benefits and side effects of patient's medications Last Documented On 7 10:24AM ; [facility] Discussed calming techniques such as breathing exercises and other relaxation techniques Last Documented On 7 10:24AM ; [facility] Counseling for nutrition/teresa ght management provided Last Documented On 7 11:32AM ; [facility] Discussed good sleep hygiene habits Last Documented On 7 11:32AM ; [facility] I recommended cognitive exer cises such as reading and/or word search puzzles, etc.. Last Documented On 7 11:32AM ; [facility] Patient education about medi cation --- I educated patient on medication(s) and diagnosis. I reviewed the risks, benefits and side effects of patient's medications Last Documented On 7 10:41AM ; [facility] Discussed calming techniques such as breathing exercises/meditation and other relaxation techniques Last Documented On 7 10:41AM ; [facility] Counseling for nutrition/teresa ght management provided Last Documented On 7 3:51PM ; [facility] Discussed good sleep hygiene habits Last Documented On 7 3:51PM ; [facility] I recommended cognitive exer cises such as reading and/or word search puzzles, etc.. Last Documented On 7 3:51PM ; [facility] Patient education about medi cation --- I educated patient on medication(s) and diagnosis. I reviewed the risks, benefits and side effects of patient's medications Last Documented On 6 9:31AM ; [facility] Discussed calming techniques such as breathing exercises/meditation and other relaxation techniques Last Documented On 6 9:31AM ; [facility] Counseling for nutrition/teresa ght management provided Last Documented On 6 3:01PM ; [facility] Discussed good sleep hygiene habits Last Documented On 6 3:01PM ; [facility] I recommended cognitive exer cises such as reading and/or word search puzzles, etc.. Last Documented On 6 3:01PM ; [facility] Patient education about medi cation --- I educated patient on medication(s) and diagnosis. I reviewed the risks, benefits and side effects of patient's medications Last Documented On 6 9:46AM ; [facility] Discussed calming techniques such as breathing exercises/meditation and other relaxation techniques Last Documented On 6 9:46AM ; [facility] Counseling for nutrition/teresa ght management provided Last Documented On 6 7:20AM ; [facility] Discussed good sleep hygiene habits Last Documented On 6 7:20AM ; [facility] Patient education about medi cation --- I educated patient on medication(s) and diagnosis. I reviewed the risks, benefits and side effects of patient's medications Last Documented On 6 9:53AM ; [facility] Discussed calming techniques such as breathing exercises/meditation and other relaxation techniques Last Documented On 6 9:53AM ; [facility] Counseling for nutrition/teresa ght management provided Last Documented On 6 11:01AM ; [facility] Patient education about medi cation --- I educated patient on medication(s) and diagnosis. I reviewed the risks, benefits and side effects of patient's medications Last Documented On 5 9:52AM ; [facility] Discussed calming techniques such as breathing exercises/meditation and other relaxation techniques Last Documented On 5 9:52AM ; [facility] Counseling for nutrition/teresa ght management provided Last Documented On 5 9:26PM ; [facility] Patient education about medi cation --- I educated patient on medication(s) and diagnosis. I reviewed the risks, benefits and side effects of patient's medications Last Documented On 5 10:19AM ; [facility] Discussed calming techniques such as breathing exercises/meditation and other relaxation techniques Last Documented On 5 10:19AM ; [facility] Counseling for nutrition/teresa ght management provided Last Documented On 5 12:29PM ; [facility] Patient education about medi cation --- I educated patient on medication(s) and diagnosis. I reviewed the risks, benefits and side effects of patient's medications Last Documented On 5 10:10PM ; [facility] Discussed calming techniques such as breathing exercises/meditation and other relaxation techniques Last Documented On 5 10:56AM ; [facility] Counseling for nutrition/teresa ght management provided Last Documented On 5 10:10PM ; [facility] Patient education about medi cation --- I educated patient on medication(s) and diagnosis. I reviewed the risks, benefits and side effects of patient's medications Last Documented On 5 6:47AM ; [facility] Discussed calming techniques such as breathing exercises/meditation and other relaxation techniques Last Documented On 5 11:14AM ; [facility] Counseling for nutrition/teresa ght management provided Last Documented On 5 6:47AM ; [facility] I recommended cognitive exer cises such as reading and/or word search puzzles, etc.. Last Documented On 5 6:47AM ; [facility] Patient education about medi cation --- I educated patient on medication(s) and diagnosis. I reviewed the risks, benefits and side effects of patient's medications Last Documented On 4 7:59PM ; [facility] Discussed calming techniques such as breathing exercises/meditation and other relaxation techniques Last Documented On 4 10:03AM ; [facility] Counseling for nutrition/teresa ght management provided Last Documented On 4 7:59PM ; [facility] I recommended cognitive exer cises such as reading and/or word search puzzles, etc.. Last Documented On 4 7:59PM ; [facility] Patient education about medi cation --- I educated patient on medication(s) and diagnosis. I reviewed the risks, benefits and side effects of patient's medications Last Documented On 4 10:04AM ; [facility] Discussed calming techniques such as breathing exercises/meditation and other relaxation techniques Last Documented On 4 9:26AM ; [facility] Counseling for nutrition/teresa ght management provided Last Documented On 4 10:04AM ; [facility] Patient education about medi cation --- I educated patient on medication(s) and diagnosis. I reviewed the risks, benefits and side effects of patient's medications Last Documented On 4 10:25PM ; [facility] Discussed calming techniques such as breathing exercises/meditation and other relaxation techniques Last Documented On 4 8:59AM ; [facility] Patient education about medi cation --- I educated patient on medication(s) and diagnosis. I reviewed the risks, benefits and side effects of patient's medications Last Documented On 4 10:40PM ; [facility] Discussed calming techniques such as breathing exercises/meditation and other relaxation techniques Last Documented On 4 2:19PM ; [facility] Counseling for nutrition/teresa ght management provided Last Documented On 4 10:40PM ; [facility] Patient education about medi cation --- I educated patient on medication(s) and diagnosis. I reviewed the risks, benefits and side effects of patient's medications.--no rash from Lamictal so far Last Documented On 4 9:29PM ; [facility] Discussed calming techniques such as breathing exercises/meditation and other relaxation techniques Last Documented On 4 2:46PM ; [facility] Counseling for nutrition/teresa ght management provided Last Documented On 4 9:29PM ; [facility] Patient education about medi cation --- I educated patient on medication(s) and diagnosis. I reviewed the risks, benefits and side effects of patient's medications including the possibility of SJS rash with Lamictal Last Documented On 4 9:56PM ; [facility] Discussed calming techniques such as breathing exercises/meditation and other relaxation techniques Last Documented On 4 3:16PM ; [facility] Counseling for nutrition/teresa ght management provided Last Documented On 4 9:56PM ; [facility] Patient education about medi cation --- I educated patient on medication(s) and diagnosis. I reviewed the risks, benefits and side effects of patient's medications Last Documented On 4 8:18PM ; [facility] Discussed calming techniques such as breathing exercises/meditation and other relaxation techniques Last Documented On 4 1:56PM ; [facility] Counseling for nutrition/teresa ght management provided Last Documented On 4 8:18PM ; [facility] Patient education about medi cation --- I educated patient on medication(s) and diagnosis Last Documented On 3 3:56PM ; [facility] Discussed calming techniques such as breathing exercises/meditation and other relaxation techniques Last Documented On 3 2:43PM ; [facility] Counseling for nutrition/teresa ght management provided Last Documented On 3 3:56PM ; [facility] Discussed good sleep hygiene habits Last Documented On 3 3:56PM ; [facility] I recommended cognitive exer cises such as reading and/or word search puzzles, etc.. Last Documented On 3 10:08PM ; [facility] Patient education about medi cation --- I educated patient on medication(s) and diagnosis Last Documented On 3 9:12PM ; [facility] Discussed calming techniques such as breathing exercises/meditation and other relaxation techniques Last Documented On 3 2:56PM ; [facility] Counseling for nutrition/teresa ght management provided Last Documented On 3 9:12PM ; [facility] Reviewed side effects and Ri sks/Benefits analysis Last Documented On 3 9:12PM ; [facility] I recommended cognitive exer cises such as reading and/or word search puzzles, etc.. Last Documented On 3 9:12PM ; [facility] Patient education about medi cation --- I educated patient on medication(s) and diagnosis Last Documented On 3 8:15PM ; [facility] Discussed calming techniques such as breathing exercises/meditation and other relaxation techniques Last Documented On 3 3:51PM ; [facility] Patient education about medi cation --- I educated patient on medication(s) and diagnosis Last Documented On 3 4:11PM ; [facility] Discussed calming techniques such as yoga meditation to help relieve some anxiety symptoms Last Documented On 3 3:50PM ; [facility] Discussed calming techniques such as breathing exercises and other relaxation techniques Last Documented On 3 3:50PM ; [facility] Discussed good sleep hygiene habits Last Documented On 3 4:11PM ; [facility] Patient education about medi cation --- I educated patient on medication(s) and diagnosis Last Documented On 3 8:55PM ; [facility] Discussed calming techniques such as yoga meditation to help relieve some anxiety symptoms Last Documented On 3 8:27PM ; [facility] Discussed calming techniques such as breathing exercises and other relaxation techniques Last Documented On 3 8:27PM ; [facility] Patient education about medi cation --- I educated patient on medication(s) and diagnosis Last Documented On 2 2:05PM ; [facility] Discussed calming techniques such as yoga meditation to help relieve some anxiety symptoms Last Documented On 2 1:19PM ; [facility] Discussed calming techniques such as breathing exercises and other relaxation techniques Last Documented On 2 1:19PM ; [facility] Discussed good sleep hygiene habits Last Documented On 2 2:05PM ; [facility] Medical Equipment - Implanted Devices Includes: Current and historical Devices No Medical Equipment Recorded Medications Includes: Current and historical Medications Current Medications (continue as prescribed) Mydayis 37.5 MG Oral Capsule Extended Release 24 Hour 12/07/2022 Provider: EILEEN VINCENT MD Diagnosis: Attention-defici t hyperactivity disorder, combined type 1 Capsule every morning Last Documented On 12/07/2022 4:33PM By Radha Vincent MD ; [facility] hydrOXYzine HCl 25 MG Oral Tablet 10/17/2022 Provide r: EILEEN VINCENT MD Diagnosis: 1 tab a day as needed only for itching/anxiety Last Documented On 10/17/2022 7:11PM By Radha Vincent MD ; [facility] Belsomra 10 MG Oral Tablet 09/27/2022 Provider: EILEEN VINCENT MD Diagnosis: Psychophysiologi c insomnia DIRECTED - ONE (1) TAB AT BEDTIME NEEDED FOR SLEEP Last Documented On 3 11:26AM By Radha Vincent MD ; [facility] Escitalopram Oxalate 20 MG Oral Tablet 09/25/2022 Provider: EILEEN VINCENT MD Diagnosis: Generalized anxi ety disorder TAKE ONE TABLET BY MOUTH DAILY Last Documented On 3 10:40AM By Radha Vincent MD ; [facility] lamoTRIgine 150 MG Oral Tablet 09/25/2022 Provider: EILEEN VINCENT MD Diagnosis: TAKE ONE TABLET BY MOUTH TWO TIMES A DAY Last Documented On 3 10:40AM By Radha Vincent MD ; [facility] rOPINIRole HCl 2 MG Oral Tablet 09/25/2022 Provider: EILEEN VINCENT MD Diagnosis: Restless legs sy ndrome DIRECTED - ONE (1) TAB AT FIVE (5) IN THE EVENING FOR RESTLESS LEGS Last Documented On 3 10:37AM By Radha Vincent MD ; [facility] buPROPion HCl ER (XL) 300 MG Oral Tablet Extended Release 24 Hour 07/03/2022 Provider: EILEEN VINCENT MD Diagnosis: Major depressive disorder, single episode, unspecified 1 tablet every morning Last Documented On 07/03/2022 1:56PM By Radha Vincent MD ; [facility] Alendronate Sodium 70 MG Oral Tablet 06/19/2022 Prov ider: WOLF MITCHELL MD Diagnosis: 1 tab weekly Last Documented On 2 11:54AM By WISAM CASH ; [facility] traZODone HCl 50 MG Oral Tablet 02/07/2022 Provider: EILEEN VINCENT MD Diagnosis: TAKE ONE (1) OR TWO (2) TABL ETS BY MOUTH AT BEDTIME NEEDED SLEEP Last Documented On 2 10:04AM By Radha Vincent MD ; [facility] Levothyroxine Sodium 100 MCG Oral Capsule 04/14/2020 Provider: GOLDIE KIDD MD Diagnosis: 1 tab daily Last Documented On 0 11:36AM By WISAM CASH ; [facility] Pantoprazole Sodium 40 MG Or al Tablet Delayed Release 11/15/2019 Provider: SIERRA MCGARRY Diagnosis: 1 tab daily Last Documented On 0 11:20AM By WISAM CASH ; [facility] Azelastine HCl 0.15% Nasal Solution 08/21/2019 Provi itz: GOLDIE KIDD MD Diagnosis: 2 sprays in each nostril twice a day Last Documented On 0 11:35AM By WISAM CASH ; [facility] Ferrous Sulfate 325 (65 Fe) MG Oral Tablet 04/10/2019 Provider: GOLDIE KIDD MD Diagnosis: 1 tab daily Last Documented On 04/10/2019 1:36PM By WISAM CASH ; [facility] Fluticasone Propionate 50MCG /ACT Nasal Suspension 07/25/2018 Provider: BETSY CARRIZALES MD Diagnosis: 2 sprays in each nostril daily Last Documented On 11/28/2018 3:50PM By WISAM CASH ; [facility] Amlodipine Besy-Benazepril H Cl 5-10 MG Capsule, conventional 03/04/2016 Provider: BETSY CARRIZALES MD Diagnosis: 1 daily Last Documented On 6 9:55AM By WILMER REDDY LPN ; [facility] Lipitor 20 MG Tablet 11/10/2015 Provider: JEFFERSON CARRIZALES MD Diagnosis: 1 tablet every evening Last Documented On 6 10:25AM By WILMER REDDY LPN ; [facility] Dicyclomine HCl 10 MG Capsule, conventional 11/10/2015 Provider: BETSY CARRIZALES MD Diagnosis: 1 capsule daily Last Documented On 6 10:22AM By WILMER REDDY LPN ; [facility] Aspirin 81 MG Tablet 11/10/2015 Provider: JEFFERSON CARRIZALES MD Diagnosis: 1 tablet daily Last Documented On 6 10:23AM By WILMER REDDY LPN ; [facility] Lasix 20 MG Tablet 11/10/2015 Provider: BETSY CARRIZALES MD Diagnosis: 1 tablet every morning Last Documented On 6 10:24AM By WILMER REDDY LPN ; [facility] Suspended Medications Trintellix 10 MG Oral Tablet 11/16/2022 Provider: EILEEN VINCENT MD Diagnosis: Major depressive disorder, single episode, unspecified TAKE ONE (1) TABLET BY MOUTH DAILY Last Documented On 3 12:52PM By Radha Vincent MD ; [facility] Namzaric 28-10 MG Oral Capsule Extended Release 24 Hour 10/17/2022 Provider: EILEEN VINCENT MD Diagnosis: Dem in oth dis c lassd elswhr,unsp sev,w/o beh/psych/mood/anx TAKE ONE CAPSULE BY MOUTH EV HELLEN MORNING Last Documented On 3 11:37AM By Radha Vincent MD ; [facility] busPIRone HCl 15 MG Oral Tablet 08/29/2022 Provider: EILEEN VINCENT MD Diagnosis: TAKE ONE TABLET BY MOUTH THREE TIMES a DAY Last Documented On 08/29/2022 3:43PM By Radha Vincent MD ; [facility] Past Medications on file Mydayis 37.5 MG Oral Capsule Extended Release 24 Hour 10/27/2022 - 12/07/2022 Provider: EILEEN VINCENT MD Diagnosis: Attention-defici t hyperactivity disorder, combined type 1 Capsule every morning Last Documented On 12/07/2022 4:28PM By Radha Vincent MD ; [facility] Mydayis 37.5 MG Oral Capsule Extended Release 24 Hour 09/29/2022 - 10/27/2022 Provider: EILEEN VINCENT MD Diagnosis: 1 Capsule every morning Last Documented On 10/27/2022 2:15PM By Radha Vincent MD ; [facility] Mydayis 37.5 MG Oral Capsule Extended Release 24 Hour 08/29/2022 - 09/29/2022 Provider: EILEEN VINCENT MD Diagnosis: TAKE ONE (1) CAPSULE BY MOUTH EACH MORNING Last Documented On 09/29/2022 6:49PM By Radha Vincent MD ; [facility] Mydayis 37.5 MG Oral Capsule Extended Release 24 Hour 08/28/2022 - 10/17/2022 Provider: EILEEN VINCENT MD Diagnosis: Attention-defici t hyperactivity disorder, other type TAKE ONE (1) CAPSULE BY MOUTH EACH MORNING Last Documented On 3 10:52AM By WISAM CASH ; [facility] Belsomra 10 MG Oral Tablet 07/31/2022 - 09/27/2022 Provider: EILEEN VINCENT MD Diagnosis: Psychophysiologi c insomnia as directed - 1 tab at bedti me as needed for sleep Last Documented On 3 11:11AM By Radha Vincent MD ; [facility] Mydayis 37.5 MG Oral Capsule Extended Release 24 Hour 07/24/2022 - 08/28/2022 Provider: EILEEN VINCENT MD Diagnosis: Attention-defici t hyperactivity disorder, other type TAKE ONE (1) CAPSULE BY MOUTH EACH MORNING Last Documented On 3 11:42AM By Radha Vincent MD ; [facility] Quviviq 50 MG Oral Tablet 07/17/2022 - 10/17/2022 Provider: EILEEN VINCENT MD Diagnosis: Psychophysiologi c insomnia One tablet at bed time Last Documented On 3 10:52AM By WISAM CASH ; [facility] Trintellix 10 MG Oral Tablet 07/17/2022 - 11/16/2022 Provider: EILEEN VINCENT MD Diagnosis: Major depressive disorder, single episode, unspecified One tablet daily Last Documented On 3 12:52PM By Radha Vincent MD ; [facility] Mydayis 37.5 MG Oral Capsule Extended Release 24 Hour 06/26/2022 - 07/24/2022 Provider: EILEEN VINCENT MD Diagnosis: Attention-defici t hyperactivity disorder, other type TAKE ONE (1) CAPSULE BY MOUTH EACH MORNING Last Documented On 07/24/2022 1:17PM By Radha Vincent MD ; [facility] Mydayis 37.5 MG Oral Capsule Extended Release 24 Hour 05/26/2022 - 06/26/2022 Provider: EILEEN VINCENT MD Diagnosis: Attention-defici t hyperactivity disorder, other type TAKE ONE (1) CAPSULE BY MOUTH EACH MORNING Last Documented On 2 12:52PM By Radha Vincent MD ; [facility] Mydayis 37.5 MG Oral Capsule Extended Release 24 Hour 04/24/2022 - 05/26/2022 Provider: EILEEN VINCENT MD Diagnosis: Attention-defici t hyperactivity disorder, other type TAKE ONE (1) CAPSULE BY MOUTH EACH MORNING Last Documented On 05/26/2022 2:48PM By Radha Vincent MD ; [facility] Quviviq 50 MG Oral Tablet 04/11/2022 - 07/17/2022 Provider: EILEEN VINCENT MD Diagnosis: Psychophysiologi c insomnia One tablet at bed time Last Documented On 2 12:18PM By Radha Vincent MD ; [facility] rOPINIRole HCl 2 MG Oral Tablet 04/05/2022 - 09/25/2022 Provider: EILEEN VINCENT MD Diagnosis: Restless legs syndrome as directed - 1 tab at 5 pm for restless legs Last Documented On 3 10:37AM By Radha Vincent MD ; [facility] Mydayis 37.5 MG Oral Capsule Extended Release 24 Hour 03/17/2022 - 04/24/2022 Provider: EILEEN VINCENT MD Diagnosis: Attention-defici t hyperactivity disorder, other type TAKE ONE (1) CAPSULE BY MOUTH EACH MORNING Last Documented On 04/24/2022 3:41PM By Radha Vincent MD ; [facility] hydrOXYzine HCl 25 MG Oral Tablet 02/20/2022 - 10/17/2022 Provider: EILEEN CONNORS MD Diagnosis: TAKE ONE (1) OR TWO (2) TABL ETS BY MOUTH NEEDED FOR AGITATION/ANXIETY Last Documented On 10/17/2022 7:11PM By Radha Vincent MD ; [facility] rOPINIRole HCl 1 MG Oral Tablet 02/20/2022 - 05/11/2022 Provider: EILEEN CONNORS MD Diagnosis: as directed - 1 tab in the evening for restless legs Last Documented On 12:52PM By Radha Vincent MD ; [facility] Mydayis 37.5 MG Oral Capsule Extended Release 24 Hour 02/14/2022 - 03/17/2022 Provider: EILEEN VINCENT MD Diagnosis: Attention-defici t hyperactivity disorder, other type TAKE ONE (1) CAPSULE BY MOUTH EACH MORNING Last Documented On 03/17/2022 9:33AM By Radha Vincent MD ; [facility] Mydayis 37.5 MG Oral Capsule Extended Release 24 Hour 01/16/2022 - 02/14/2022 Provider: EILEEN VINCENT MD Diagnosis: Attention-defici t hyperactivity disorder, other type ONE (1) CAPSULE EVERY MORNING Last Documented On 2 10:30AM By Radha Vincent MD ; [facility] Mydayis 37.5 MG Oral Capsule Extended Release 24 Hour 12/14/2021 - 01/16/2022 Provider: EILEEN VINCENT MD Diagnosis: Attention-defici t hyperactivity disorder, other type ONE (1) CAPSULE EVERY MORNING Last Documented On 2 10:30AM By Radha Vincent MD ; [facility] Mydayis 37.5 MG Oral Capsule Extended Release 24 Hour 11/03/2021 - 12/14/2021 Provider: EILEEN VINCENT MD Diagnosis: Attention-defici t hyperactivity disorder, other type ONE (1) CAPSULE EVERY MORNING Last Documented On 2 11:51AM By Radha Vincent MD ; [facility] Namzaric 28-10 MG Oral Capsule Extended Release 24 Hour 10/27/2021 - 10/17/2022 Provider: EILEEN CONNORS MD Diagnosis: TAKE ONE CAPSULE BY MOUTH EVERY MORNING Last Documented On 3 11:37AM By Radha Vincent MD ; [facility] Mydayis 37.5 MG Oral Capsule Extended Release 24 Hour 10/05/2021 - 11/03/2021 Provider: EILEEN VINCENT MD Diagnosis: Attention-defici t hyperactivity disorder, other type 1 Capsule every morning Last Documented On 11/03/2021 3:57PM By Radha Vincent MD ; [facility] Escitalopram Oxalate 20 MG Oral Tablet 10/04/2021 - 09/25/2022 Provider: EILEEN VINCENT MD Diagnosis: Generalized anxi ety disorder TAKE ONE TABLET BY MOUTH DAILY Last Documented On 3 10:40AM By Radha Vincent MD ; [facility] Mydayis 37.5 MG Oral Capsule Extended Release 24 Hour 09/02/2021 - 10/05/2021 Provider: EILEEN VINCENT MD Diagnosis: Attention-defici t hyperactivity disorder, other type 1 Capsule every morning Last Documented On 10/05/2021 2:58PM By Radha Vincent MD ; [facility] hydrOXYzine HCl 25 MG Oral Tablet 08/25/2021 - 07/17/2022 Provider: EILEEN VINCENT MD Diagnosis: Generalized anxi ety disorder TAKE 1 OR 2 TABLETS BY MOUTH NEEDED FOR AGITATION/ANXIETY Last Documented On 2 11:42AM By WISAM CASH ; [facility] lamoTRIgine 150 MG Oral Tablet 08/24/2021 - 10/17/2022 Provider: EILEEN VINCENT MD Diagnosis: Bipolar disorder , unspecified TAKE ONE TABLET BY MOUTH TWO TIMES A DAY Last Documented On 3 10:53AM By WISAM CASH ; [facility] busPIRone HCl 15 MG Oral Tablet 08/24/2021 - 10/17/2022 Provider: EILEEN VINCENT MD Diagnosis: Generalized anxi ety disorder TAKE ONE TABLET BY MOUTH THREE TIMES A DAY Last Documented On 3 10:53AM By WISAM CASH ; [facility] Mydayis 37.5 MG Oral Capsule Extended Release 24 Hour 08/04/2021 - 09/02/2021 Provider: EILEEN VINCENT MD Diagnosis: Attention-defici t hyperactivity disorder, other type 1 Capsule every morning Last Documented On 09/02/2021 3:06PM By Radha Vincent MD ; [facility] rOPINIRole HCl 1 MG Oral Tablet 07/29/2021 - 12/20/2021 Provider: EILEEN VINCENT MD Diagnosis: Restless legs syndrome as directed -- 1/2 tab in th e evening for 1 week then 1 tab in the evening thereafter for restless legs Last Documented On 12/20/2021 7:58AM By Radha Vincent MD ; [facility] hydrOXYzine HCl 25 MG Oral Tablet 06/15/2021 - 07/17/2022 Provider: Diagnosis: Generalized anxi ety disorder 1 tab a day as needed for agitation/anxiety Last Documented On 2 11:42AM By WISAM CASH ; [facility] hydrOXYzine HCl 25 MG Oral Tablet 06/15/2021 - 08/25/2021 Provider: EILEEN VINCENT MD Diagnosis: Generalized anxi ety disorder as directed 1 tab a day as n eeded for agitation/anxiety Last Documented On 2 10:50AM By Radha Vincent MD ; [facility] traZODone HCl 50 MG Oral Tablet 06/15/2021 - 07/17/2022 Provider: EILEEN VINCENT MD Diagnosis: Psychophysiologi c insomnia as directed 1 or 2 tabs at b edtime as needed for sleep Last Documented On 2 11:42AM By WISAM CASH ; [facility] traZODone HCl 50 MG Oral Tablet 06/15/2021 - Provider: Diagnosis: Psychophysiologi c insomnia 1 or 2 tabs at bedtime as needed for sleep Last Documented On 2 11:42AM By WISAM CASH ; [facility] Mydayis 37.5 MG Oral Capsule Extended Release 24 Hour 06/06/2021 - 12/20/2021 Provider: EILEEN VINCENT MD Diagnosis: TAKE ONE CAPSULE BY MOUTH EVERY MORNING Last Documented On 12/20/2021 7:58AM By Radha Vincent MD ; [facility] buPROPion HCl ER (XL) 300 MG Oral Tablet Extended Release 24 Hour 06/06/2021 - 07/03/2022 Provider: EILEEN VINCENT MD Diagnosis: Major depressive disorder, single episode, unspecified 1 tablet every morning Last Documented On 07/03/2022 1:56PM By Radha Vincent MD ; [facility] Mydayis 37.5 MG Oral Capsule Extended Release 24 Hour 05/25/2021 - 12/20/2021 Provider: EILEEN VINCENT MD Diagnosis: 1 Capsule every morning Last Documented On 12/20/2021 7:58AM By Radha Vincent MD ; [facility] Mydayis 37.5 MG Oral Capsule Extended Release 24 Hour 04/25/2021 - 05/25/2021 Provider: EILEEN VINCENT MD Diagnosis: Attention-defici t hyperactivity disorder, other type as directed 1 Capsule every morning Last Documented On 1 10:45AM By Radha Vincent MD ; [facility] Mydayis 37.5 MG Oral Capsule Extended Release 24 Hour 03/23/2021 - 04/19/2021 Provider: EILEEN VINCENT MD Diagnosis: as directed 1 Capsule every morning Last Documented On 1 10:07AM By Radha Vincent MD ; [facility] Mydayis 37.5 MG Oral Capsule Extended Release 24 Hour 02/21/2021 - 03/23/2021 Provider: EILEEN VINCENT MD Diagnosis: as directed 1 Capsule every morning Last Documented On 03/23/2021 2:40PM By Radha Vincent MD ; [facility] Mydayis 37.5 MG Oral Capsule Extended Release 24 Hour 01/25/2021 - 02/21/2021 Provider: EILEEN VINCENT MD Diagnosis: Attention-defici t hyperactivity disorder, other type as directed 1 Capsule every morning Last Documented On 11:20AM By Radha Vincent MD ; [facility] Mydayis 37.5 MG Oral Capsule Extended Release 24 Hour 12/21/2020 - 01/25/2021 Provider: EILEEN VINCENT MD Diagnosis: Attention-defici t hyperactivity disorder, other type as directed 1 Capsule every morning Last Documented On 11:48AM By Radha Vincent MD ; [facility] Mydayis 37.5 MG Oral Capsule Extended Release 24 Hour 11/18/2020 - 12/20/2020 Provider: EILEEN VINCENT MD Diagnosis: Attention-defici t hyperactivity disorder, other type as directed 1 Capsule every morning Last Documented On 12/21/2020 3:30PM By Radha Vincent MD ; [facility] Namzaric 28-10 MG Oral Capsule Extended Release 24 Hour 10/26/2020 - 12/20/2021 Provider: EILEEN CONNORS MD Diagnosis: Dem in oth dis c lassd elswhr,unsp sev,w/o beh/psych/mood/anx 1 CAPSULE EVERY MORNING Last Documented On 12/20/2021 7:58AM By Radha Vincent MD ; [facility] Mydayis 37.5 MG Oral Capsule Extended Release 24 Hour 10/18/2020 - 11/18/2020 Provider: EILEEN VINCENT MD Diagnosis: Attention-defici t hyperactivity disorder, other type as directed 1 Capsule every morning Last Documented On 12:43PM By Radha Vincent MD ; [facility] hydrOXYzine HCl 25 MG Oral Tablet 10/08/2020 - 11/07/2020 Provider: EILEEN VINCENT MD Diagnosis: Generalized anxi ety disorder as directed - 1 tab a day as needed for agitation/anxiety Last Documented On 10/08/2020 2:47PM By Radha Vincent MD ; [facility] Escitalopram Oxalate 20 MG Oral Tablet 09/27/2020 - 10/04/2021 Provider: EILEEN VINCENT MD Diagnosis: Generalized anxi ety disorder TAKE ONE TABLET BY MOUTH DAILY Last Documented On 10/04/2021 1:52PM By Radha Vincent MD ; [facility] lamoTRIgine 150 MG Oral Tablet 09/22/2020 - 08/24/2021 Provider: EILEEN VINCENT MD Diagnosis: Bipolar disorder , unspecified TAKE ONE TABLET BY MOUTH TWO TIMES A DAY Last Documented On 08/24/2021 1:01PM By Radha Vincent MD ; [facility] Mydayis 37.5 MG Oral Capsule Extended Release 24 Hour 09/20/2020 - 10/18/2020 Provider: EILEEN VINCENT MD Diagnosis: Attention-defici t hyperactivity disorder, other type as directed 1 Capsule every morning Last Documented On 1 10:15AM By Radha Vincent MD ; [facility] Mydayis 37.5 MG Oral Capsule Extended Release 24 Hour 08/20/2020 - 09/20/2020 Provider: EILEEN VINCENT MD Diagnosis: Attention-defici t hyperactivity disorder, other type as directed 1 Capsule every morning Last Documented On 1 11:02AM By Radha Vincent MD ; [facility] busPIRone HCl 15 MG Oral Tablet 08/02/2020 - 08/24/2021 Provider: EILEEN VINCENT MD Diagnosis: Generalized anxi ety disorder TAKE ONE TABLET BY MOUTH THREE TIMES A DAY Last Documented On 2 12:59PM By Radha Vincent MD ; [facility] Mydayis 37.5 MG Oral Capsule Extended Release 24 Hour 07/21/2020 - 08/20/2020 Provider: EILEEN VINCENT MD Diagnosis: Attention-defici t hyperactivity disorder, other type as directed 1 Capsule every morning Last Documented On 08/20/2020 4:39PM By Radha Vincent MD ; [facility] Mydayis 37.5 MG Oral Capsule Extended Release 24 Hour 06/21/2020 - 07/21/2020 Provider: EILEEN VINCENT MD Diagnosis: Attention-defici t hyperactivity disorder, other type as directed 1 Capsule every morning Last Documented On 07/21/2020 4:41PM By Radha Vincent MD ; [facility] buPROPion HCl ER (XL) 300 MG Oral Tablet Extended Release 24 Hour 06/08/2020 - 06/06/2021 Provider: EILEEN VINCENT MD Diagnosis: Major depressive disorder, single episode, unspecified 1 tablet every morning Last Documented On 06/06/2021 2:12PM By Radha Vincent MD ; [facility] Medical [facility] Mydayis 37.5 MG Oral Capsule Extended Release 24 Hour 05/20/2020 - 06/21/2020 Provider: EILEEN VINCENT MD Diagnosis: Attention-defici t hyperactivity disorder, other type as directed 1 Capsule every morning Last Documented On 06/21/2020 6:48PM By Radha Vincent MD ; [facility] traZODone HCl 50 MG Oral Tablet 05/10/2020 - 04/19/2021 Provider: EILEEN VINCENT MD Diagnosis: Psychophysiologi c insomnia TAKE ONE OR TWO TABLETS AT B EDTIME NEEDED FOR SLEEP Last Documented On 12:30PM By Radha Vincent MD ; [facility] Mydayis 37.5 MG Oral Capsule Extended Release 24 Hour 04/21/2020 - 05/20/2020 Provider: EILEEN VINCENT MD Diagnosis: Attention-defici t hyperactivity disorder, other type as directed 1 Capsule every morning Last Documented On 05/20/2020 4:04PM By Radha Vincent MD ; [facility] Mydayis 37.5 MG Oral Capsule Extended Release 24 Hour 03/19/2020 - 04/21/2020 Provider: EILEEN VINCENT MD Diagnosis: Attention-defici t hyperactivity disorder, other type as directed 1 Capsule every morning Last Documented On 0 12:22PM By Radha Vincent MD ; [facility] Mydayis 37.5 MG Oral Capsule Extended Release 24 Hour 03/19/2020 - 03/19/2020 Provider: EILEEN VINCENT MD Diagnosis: Attention-defici t hyperactivity disorder, other type as directed 1 Capsule every morning Last Documented On 03/19/2020 6:12PM By Radha Vincent MD ; [facility] Mydayis 37.5 MG Oral Capsule Extended Release 24 Hour 02/16/2020 - 03/19/2020 Provider: EILEEN VINCENT MD Diagnosis: Attention-defici t hyperactivity disorder, other type as directed 1 Capsule every morning Last Documented On 03/19/2020 9:22AM By Radha Vincent MD ; [facility] Mydayis 37.5 MG Oral Capsule Extended Release 24 Hour 01/12/2020 - 02/16/2020 Provider: EILEEN VINCENT MD Diagnosis: Attention-defici t hyperactivity disorder, other type as directed 1 Capsule every morning Last Documented On 02/16/2020 3:32PM By Radha Vincent MD ; [facility] Mydayis 37.5 MG OR CP24 01/12/2020 - 07/29/2021 Provid er: Diagnosis: Attention-defici t hyperactivity disorder, other type 1 Capsule every morning Last Documented On 1 10:48AM By Radha Vincent MD ; [facility] traZODone HCl 50 MG Oral Tablet 12/23/2019 - 05/10/2020 Provider: EILEEN VINCENT MD Diagnosis: Psychophysiologi c insomnia DIRECTED --1 OR 2 TABS AT BEDTIME NEEDED FOR SLEEP Last Documented On 05/10/2020 4:13PM By Radha Vincent MD ; [facility] Mydayis 37.5 MG Oral Capsule Extended Release 24 Hour 12/12/2019 - 02/07/2022 Provider: EILEEN VINCENT MD Diagnosis: Attention-defici t hyperactivity disorder, other type 1 Capsule every morning Last Documented On 2 10:01AM By Radha Vincent MD ; [facility] Mydayis 37.5 MG Oral Capsule Extended Release 24 Hour 11/06/2019 - 12/12/2019 Provider: EILEEN VINCENT MD Diagnosis: Attention-defici t hyperactivity disorder, other type 1 Capsule every morning Last Documented On 12/12/2019 1:16PM By Radha Vincent MD ; [facility] Namzaric 28-10 MG Oral Capsule Extended Release 24 Hour 10/24/2019 - 10/26/2020 Provider: EILEEN CONNORS MD Diagnosis: Dem in oth dis c lassd elswhr,unsp sev,w/o beh/psych/mood/anx 1 CAPSULE EVERY MORNING Last Documented On 1 11:27PM By Radha Vincent MD ; [facility] LaMICtal 150 MG Oral Tablet 10/20/2019 - 09/22/2020 Provider: EILEEN VINCENT MD Diagnosis: Bipolar disorder , unspecified TAKE ONE TABLET BY MOUTH TWO TIMES A DAY Last Documented On 1 12:52PM By Radha Vincent MD ; [facility] Mydayis 37.5 MG Oral Capsule Extended Release 24 Hour 10/07/2019 - 11/06/2019 Provider: EILEEN VINCENT MD Diagnosis: Attention-defici t hyperactivity disorder, other type 1 Capsule every morning Last Documented On 11/06/2019 1:48PM By Radha Vincent MD ; [facility] Mydayis 37.5 MG Oral Capsule Extended Release 24 Hour 09/02/2019 - 10/07/2019 Provider: EILEEN VINCENT MD Diagnosis: Attention-defici t hyperactivity disorder, other type 1 Capsule every morning Last Documented On 10/07/2019 1:30PM [facility] Oral Tablet 08/27/2019 - 08/02/2020 Provider: EILEEN VINCENT MD Diagnosis: Generalized anxi ety disorder TAKE ONE TABLET BY MOUTH THREE TIMES A DAY Last Documented On 08/02/2020 3:42PM By [facility] My[facility].5 [facility] Oral Capsule Extended Release 24 Hour 08/01/2019 - 09/02/2019 Provider: EILEEN VINCENT MD Diagnosis: Attention-defici t hyperactivity disorder, other type 1 Capsule every morning Last Documented On 09/02/2019 1:33PM By Radha Vincent MD ; [facility] Mydayis 37.5 MG Oral Capsule Extended Release 24 Hour 06/27/2019 - 08/01/2019 Provider: EILEEN VINCENT MD Diagnosis: Attention-defici t hyperactivity disorder, other type 1 Capsule every morning Last Documented On 9 12:05PM By Radha Vincent MD ; [facility] Mydayis 37.5 MG Oral Capsule Extended Release 24 Hour 06/09/2019 - 06/27/2019 Provider: EILEEN VINCENT MD Diagnosis: Attention-defici t hyperactivity disorder, other type 1 Capsule every morning Last Documented On 06/27/2019 4:24PM By [facility] MD ; [facility] Esc[facility] Oxalate 20 MG Oral Tablet 06/02/2019 - 09/27/2020 Provider: EILEEN VINCENT MD Diagnosis: Generalized anxi ety disorder TAKE ONE TABLET BY MOUTH DAILY Last Documented On 09/27/2020 2:46PM By Radha Vincent MD ; [facility] Escitalopram Oxalate 20 MG Oral Tablet 05/11/2019 - 06/02/2019 Provider: EILEEN VINCENT MD Diagnosis: Generalized anxi ety disorder ONE TABLET DAILY Last Documented On 9 12:27PM By Radha Vincent MD ; [facility] busPIRone HCl 15 MG Oral Tablet 05/11/2019 - 08/27/2019 Provider: EILEEN VINCENT MD Diagnosis: Generalized anxi ety disorder One tablet three times a day Last Documented On 08/27/2019 4:10PM By Radha Vincent MD ; [facility] Namzaric 28-10 MG Oral Capsule Extended Release 24 Hour 05/11/2019 - 10/24/2019 Provider: EILEEN CONNORS MD Diagnosis: Dem in oth dis c lassd elswhr,unsp sev,w/o beh/psych/mood/anx 1 Capsule every morning Last Documented On 10/24/2019 1:35PM By Radha Vincent MD ; [facility] Wellbutrin XL 300 MG Oral Tablet Extended Release 24 Hour 05/11/2019 - 06/08/2020 Provider: EILEEN VINCENT MD Diagnosis: Major depressive disorder, single episode, unspecified TAKE ONE TABLET BY MOUTH EVERY MORNING Last Documented On 06/08/2020 3:09PM By Radha Vincent MD ; [facility] traZODone HCl 50 MG Oral Tablet 05/11/2019 - 12/23/2019 Provider: EILEEN VINCENT MD Diagnosis: Psychophysiologi c insomnia DIRECTED --1 OR 2 TABS AT BEDTIME NEEDED FOR SLEEP Last Documented On 12/23/2019 6:43PM By Radha Vincent MD ; [facility] LaMICtal 150 MG Oral Tablet 05/11/2019 - 10/20/2019 Provider: EILEEN VINCENT MD Diagnosis: Bipolar disorder , unspecified ONE TABLET TWICE A DAY Last Documented On 0 10:24AM By Radha Vincent MD ; [facility] Mydayis 37.5 MG Oral Capsule Extended Release 24 Hour 05/07/2019 - 06/09/2019 Provider: EILEEN VINCENT MD Diagnosis: Attention-defici t hyperactivity disorder, other type 1 Capsule every morning Last Documented On 9 10:52AM By Radha Vincent MD ; [facility] Well[facility] 300 MG Oral Tablet Extended Release 24 Hour 05/06/2019 - 04/10/2019 Provider: EILEEN VINCENT MD Diagnosis: Major depressive disorder, single episode, unspecified TAKE ONE TABLET BY MOUTH EVERY MORNING Last Documented On 9 10:58PM By Radha Vincent MD ; [facility] Mydayis 37.5 MG Oral Capsule Extended Release 24 Hour 04/10/2019 - 05/07/2019 Provider: EILEEN VINCENT MD Diagnosis: Attention-defici t hyperactivity disorder, other type 1 Capsule every morning Last Documented On 05/07/2019 3:39PM By Radha Vincent MD ; [facility] Mydayis 37.5MG Oral Capsule Extended Release 24 Hour 03/06/2019 - 04/10/2019 Provider: EILEEN VINCENT MD Diagnosis: Attention-defici t hyperactivity disorder, other type 1 Capsule every morning Last Documented On 04/10/2019 2:57PM By Radha Vincent MD ; [facility] Mydayis 37.5MG Oral Capsule Extended Release 24 Hour 01/29/2019 - 03/06/2019 Provider: EILEEN VINCENT MD Diagnosis: Attention-defici t hyperactivity disorder, other type 1 Capsule every morning Last Documented On 03/06/2019 5:04PM By Radha Vincent MD ; [facility] Mydayis 37.5MG Oral Capsule Extended Release 24 Hour 12/24/2018 - 01/29/2019 Provider: EILEEN VINCENT MD Diagnosis: Attention-defici t hyperactivity disorder, other type 1 Capsule every morning Last Documented On 01/29/2019 6:37PM By Radha Vincent MD ; [facility] Mydayis 25MG Oral Capsule Extended Release 24 Hour 12/24/2018 - 08/21/2019 Provider: EILEEN VINCENT MD Diagnosis: Attention-defici t hyperactivity disorder, other type 1 Capsule every morning Last Documented On 0 11:33AM By WISAM CASH ; [facility] Mydayis 25MG Oral Capsule Extended Release 24 Hour 12/18/2018 - 08/21/2019 Provider: EILEEN VINCENT MD Diagnosis: Attention-defici t hyperactivity disorder, other type 1 Capsule every morning Last Documented On 0 11:33AM By WISAM CASH ; [facility] Namzaric 28-10MG Oral Capsule, extended-release 24 hour 12/02/2018 - 04/10/2019 Provider: EILEEN VINCENT MD Diagnosis: Dem in oth dis classd elswhr,unsp sev,w/o beh/psych/mood/anx 1 Capsule every morning Last Documented On 9 10:58PM By Radha Vincent MD ; [facility] LaMICtal 150MG Oral Tablet 12/02/2018 - 04/10/2019 Provider: EILEEN VINCENT MD Diagnosis: Bipolar disorder , unspecified ONE TABLET TWICE A DAY Last Documented On 9 10:58PM By Radha Vincent MD ; [facility] Wellbutrin XL 300MG Oral Tablet, extended-release 24 hour 12/02/2018 - 05/06/2019 Provider: EILEEN VICNENT MD Diagnosis: Major depressive disorder, single episode, unspecified 1 tablet every morning Last Documented On 05/06/2019 6:44PM By Radha Vincent MD ; [facility] Mydayis 25MG Oral Capsule, extended-release 24 hour 11/28/2018 - 12/18/2018 Provider: EILEEN VINCENT MD Diagnosis: Attention-defici t hyperactivity disorder, other type 1 Capsule every morning Last Documented On 9 11:30AM By Radha Vincent MD ; [facility] traZODone HCl 50MG Oral Tablet 11/28/2018 - 04/10/2019 Provider: EILEEN VINCENT MD Diagnosis: Psychophysiologi c insomnia DIRECTED --1 OR 2 TABS AT BEDTIME NEEDED FOR SLEEP Last Documented On 9 10:58PM By Radha Vincent MD ; [facility] Mydayis 25MG Oral Capsule Extended Release 24 Hour 10/22/2018 - 11/28/2018 Provider: EILEEN VINCENT MD Diagnosis: Attention-defici t hyperactivity disorder, other type 1 Capsule every morning Last Documented On 11/28/2018 5:03PM By Radha Vincent MD ; [facility] LaMICtal 150MG Oral Tablet 10/14/2018 - 11/28/2018 Provider: EILEEN VINCENT MD Diagnosis: Bipolar disorder , unspecified ONE TABLET TWICE A DAY Last Documented On 12/02/2018 3:47AM By Radha Vincent MD ; [facility] Mydayis 25MG Oral Capsule Extended Release 24 Hour 09/30/2018 - 10/22/2018 Provider: EILEEN VINCENT MD Diagnosis: Attention-defici t hyperactivity disorder, other type 1 Capsule every morning Last Documented On 10/22/2018 4:27PM By Radha Vincent MD ; [facility] LaMICtal 150MG Oral Tablet 09/24/2018 - 09/27/2018 Provider: EILEEN VINCENT MD Diagnosis: Bipolar disorder , unspecified One tablet twice a day Last Documented On 09/24/2018 1:31PM By Radha Vincent MD ; [facility] Mydayis 25MG Oral Capsule, extended-release 24 hour 08/22/2018 - 09/30/2018 Provider: EILEEN VINCENT MD Diagnosis: Attention-defici t hyperactivity disorder, other type 1 Capsule every morning Last Documented On 09/30/2018 1:43PM By Radha Vincent MD ; [facility] prednisoLONE Sodium Phosphat e 1% Ophthalmic Solution 08/20/2018 - 04/05/2022 Provider: RIANA LEE MD Diagnosis: 1 drop in left eye in the morning Last Documented On 11:09AM By WISAM CASH ; [facility] Namzaric 28-10MG Oral Capsule Extended Release 24 Hour 08/02/2018 - 11/28/2018 Provider: EILEEN CONNORS MD Diagnosis: Dem in oth dis c lassd elswhr,unsp sev,w/o beh/psych/mood/anx 1 Capsule every morning Last Documented On 12/02/2018 3:47AM By Radha Vincent MD ; [facility] Mydayis 25MG Oral Capsule Extended Release 24 Hour 07/15/2018 - 08/22/2018 Provider: EILEEN VINCENT MD Diagnosis: Attention-defici t hyperactivity disorder, other type 1 Capsule every morning Last Documented On 08/22/2018 4:39PM By Radha Vincent MD ; [facility] Escitalopram Oxalate 20MG Oral Tablet 07/01/2018 - 04/10/2019 Provider: EILEEN VINCENT MD Diagnosis: Generalized anxi ety disorder ONE TABLET DAILY Last Documented On 9 10:58PM By Radha Vincent MD ; [facility] Namzaric 28-10MG Oral Capsule, extended-release 24 hour 06/17/2018 - 08/02/2018 Provider: EILEEN VINCENT MD Diagnosis: Dem in oth dis classd elswhr,unsp sev,w/o beh/psych/mood/anx 1 Capsule every morning Last Documented On 8 12:00PM By Radha Vincent MD ; [facility] Escitalopram Oxalate 20MG Oral Tablet 06/17/2018 - 07/01/2018 Provider: EILEEN VINCENT MD Diagnosis: Generalized anxi ety disorder One tablet daily Last Documented On 07/01/2018 9:47AM By Radha Vincent MD ; [facility] Wellbutrin XL 300MG Oral Tablet, extended-release 24 hour 06/17/2018 - 11/28/2018 Provider: EILEEN VINCENT MD Diagnosis: Major depressive disorder, single episode, unspecified 1 tablet every morning Last Documented On 12/02/2018 3:47AM By Radha Vincent MD ; [facility] TraZODone HCl 50MG Oral Tablet 06/17/2018 - 11/28/2018 Provider: EILEEN VINCENT MD Diagnosis: Psychophysiologi c insomnia DIRECTED --1 OR 2 TABS AT BEDTIME NEEDED FOR SLEEP Last Documented On 11/28/2018 4:59PM By Radha Vincent MD ; [facility] BusPIRone HCl 15MG Oral Tablet 06/17/2018 - 04/10/2019 Provider: EILEEN VINCENT MD Diagnosis: Generalized anxi ety disorder One tablet three times a day Last Documented On 9 10:58PM By Radha Vincent MD ; [facility] LaMICtal 150MG Oral Tablet 06/17/2018 - 10/14/2018 Provider: EILEEN VINCENT MD Diagnosis: Bipolar disorder , unspecified ONE TABLET TWICE A DAY Last Documented On 10/14/2018 1:38PM By Radha Vincent MD ; [facility] Mydayis 25MG Oral Capsule, extended-release 24 hour 06/12/2018 - 07/15/2018 Provider: EILEEN VINCENT MD Diagnosis: Attention-defici t hyperactivity disorder, other type 1 Capsule every morning Last Documented On 07/15/2018 1:57PM By Radha Vincent MD ; [facility] Mydayis 25MG Oral Capsule Extended Release 24 Hour 05/24/2018 - 06/12/2018 Provider: EILEEN VINCENT MD Diagnosis: Attention-defici t hyperactivity disorder, other type 1 Capsule every morning Last Documented On 06/12/2018 3:11PM By Radha Vincent MD ; [facility] Famotidine 40MG Oral Tablet 04/24/2018 - 08/21/2019 Pr ovider: [place] Diagnosis: 1 tab bid Last Documented On 0 11:33AM By WISAM CASH ; [facility] Moxifloxacin HCl 0.5% Ophthalmic Solution 04/22/2018 - 08/21/2019 Provider: RIANA SINGLETON MD Diagnosis: 1 drop in left eye daily Last Documented On 0 11:30AM By WISAM CASH ; [facility] Mydayis 25MG Oral Capsule Extended Release 24 Hour 04/09/2018 - 05/24/2018 Provider: EILEEN VINCENT MD Diagnosis: Attention-defici t hyperactivity disorder, other type 1 Capsule every morning Last Documented On 05/24/2018 9:43AM By Radha Vincent MD ; [facility] Mydayis 25MG Oral Capsule Extended Release 24 Hour 03/11/2018 - 06/12/2018 Provider: EILEEN VINCENT MD Diagnosis: Attention-defici t hyperactivity disorder, other type 1 Capsule every morning Last Documented On 06/12/2018 2:29PM By WISAM CASH ; [facility] Mydayis 25MG Oral Capsule Extended Release 24 Hour 02/15/2018 - 03/11/2018 Provider: EILEEN VINCENT MD Diagnosis: Attention-defici t hyperactivity disorder, other type 1 Capsule every morning Last Documented On 03/11/2018 1:24PM By Radha Vincent MD ; [facility] Wellbutrin XL 300MG Oral Tablet, extended-release 24 hour 01/04/2018 - 06/12/2018 Provider: EILEEN VINCENT MD Diagnosis: Bipolar disorder , current episode depressed, moderate 1 tablet every morning Last Documented On 06/17/2018 6:08AM By Radha Vincent MD ; [facility] LaMICtal 150MG Oral Tablet 01/04/2018 - 06/12/2018 Provider: EILEEN VINCENT MD Diagnosis: Bipolar disorder , unspecified ONE TABLET TWICE A DAY Last Documented On 06/17/2018 6:08AM By Radha Vincent MD ; [facility] TraZODone HCl 50MG Oral Tablet 01/04/2018 - 06/12/2018 Provider: EILEEN VINCENT MD Diagnosis: Psychophysiologi c insomnia DIRECTED --1 OR 2 TABS AT BEDTIME NEEDED FOR SLEEP Last Documented On 06/17/2018 6:08AM By Radha Vincent MD ; [facility] Namzaric 28-10MG Oral Capsule, extended-release 24 hour 01/04/2018 - 06/12/2018 Provider: EILEEN VINCENT MD Diagnosis: Dem in oth dis classd elswhr,unsp sev,w/o beh/psych/mood/anx 1 Capsule every morning Last Documented On 06/17/2018 6:08AM By Radha Vincent MD ; [facility] BusPIRone HCl 15MG Oral Tablet 01/04/2018 - 06/12/2018 Provider: EILEEN VINCENT MD Diagnosis: Generalized anxi ety disorder One tablet three times a day Last Documented On 06/17/2018 6:08AM By Radha Vincent MD ; [facility] Mydayis 25MG Oral Capsule, extended-release 24 hour 01/03/2018 - 02/15/2018 Provider: EILEEN VINCENT MD Diagnosis: Attention-defici t hyperactivity disorder, other type 1 Capsule every morning Last Documented On 8 10:25AM By Radha Vincent MD ; [facility] Vyvanse 50MG Oral Capsule, conventional 01/03/2018 - 01/14/2018 Provider: IELEEN VINCENT MD Diagnosis: Attention-defici t hyperactivity disorder, other type 1 Capsule every morning Last Documented On 01/14/2018 3:15PM By LETI WILSON ; [facility] Dicyclomine HCl 10MG Oral Capsule, conventional 01/03/2018 - 06/12/2018 Provider: Diagnosis: Last Documented On 06/12/2018 2:28PM By WISAM CASH ; [facility] TraZODone HCl 50MG Oral Tablet 12/17/2017 - 01/03/2018 Provider: EILEEN CONNORS MD Diagnosis: DIRECTED --1 OR 2 TABS AT BEDTIME NEEDED FOR SLEEP Last Documented On 01/04/2018 9:34PM By Radha Vincent MD ; [facility] Vyvanse 50MG Oral Capsule 12/14/2017 - 01/03/2018 Provider: EILEEN VINCENT MD Diagnosis: Attention-defici t hyperactivity disorder, other type 1 Capsule every morning Last Documented On 8 12:20PM By Radha Vincent MD ; [facility] Namzaric 28-10MG Oral Capsule Extended Release 24 Hour 12/14/2017 - 01/03/2018 Provider: EILEEN CONNORS MD Diagnosis: Dem in oth dis c lassd elswhr,unsp sev,w/o beh/psych/mood/anx 1 Capsule every morning Last Documented On 01/04/2018 9:34PM By Radha Vincent MD ; [facility] Vyvanse 50MG Oral Capsule 12/14/2017 - 12/14/2017 Provider: EILEEN VINCENT MD Diagnosis: Attention-defici t hyperactivity disorder, other type 1 Capsule every morning Last Documented On 12/14/2017 4:37PM By Radha Vincent MD ; [facility] Vyvanse 50MG Oral Capsule 11/15/2017 - 12/14/2017 Provider: EILEEN VINCENT MD Diagnosis: Attention-defici t hyperactivity disorder, other type 1 Capsule every morning Last Documented On 8 10:21AM By Radha Vincent MD ; [facility] Vyvanse 50MG Oral Capsule 10/24/2017 - 11/15/2017 Provider: EILEEN VINCENT MD Diagnosis: Attention-defici t hyperactivity disorder, other type 1 Capsule every morning Last Documented On 11/15/2017 1:28PM By Radha Vincent MD ; [facility] Wellbutrin XL 300MG Oral Tablet, extended-release 24 hour 09/07/2017 - 01/03/2018 Provider: EILEEN VINCENT MD Diagnosis: Bipolar disorder , current episode depressed, moderate 1 tablet every morning Last Documented On 01/04/2018 9:34PM By Radha Vincent MD ; [facility] Namzaric 28-10MG Oral Capsule, extended-release 24 hour 09/07/2017 - 12/14/2017 Provider: EILEEN VINCENT MD Diagnosis: Dem in oth dis classd elswhr,unsp sev,w/o beh/psych/mood/anx 1 Capsule every morning Last Documented On 8 10:35AM By Radha Vincent MD ; [facility] BusPIRone HCl 15MG Oral Tablet 09/07/2017 - 01/03/2018 Provider: EILEEN VINCENT MD Diagnosis: Generalized anxi ety disorder One tablet three times a day Last Documented On 01/04/2018 9:34PM By Radha Vincent MD ; [facility] LaMICtal 150MG Oral Tablet 09/07/2017 - 01/03/2018 Provider: EILEEN VINCENT MD Diagnosis: Bipolar disorder , unspecified ONE TABLET TWICE A DAY Last Documented On 01/04/2018 9:34PM By Radha Vincent MD ; [facility] Vyvanse 50MG Oral Capsule, conventional 09/06/2017 - 10/24/2017 Provider: EILEEN VINCENT MD Diagnosis: Attention-defici t hyperactivity disorder, other type 1 Capsule every morning Last Documented On 10/24/2017 1:44PM By Radha Vincent MD ; [facility] TraZODone HCl 50MG Oral Tablet 08/28/2017 - 12/17/2017 Provider: EILEEN CONNORS MD Diagnosis: DIRECTED --1 OR 2 TABS AT BEDTIME NEEDED FOR SLEEP Last Documented On 12/17/2017 1:33PM By Radha Vincent MD ; [facility] LaMICtal 150MG Oral Tablet 08/27/2017 - 09/06/2017 Pro vider: EILEEN VINCENT MD Diagnosis: ONE TABLET TWICE A DAY Last Documented On 09/07/2017 7:28AM By [facility] V[facility] C[facility] 08/14/2017 - 06/12/2018 Provider: EILEEN VINCENT MD Diagnosis: Attention-defici t hyperactivity disorder, other type 1 Capsule every morning Last Documented On 06/12/2018 2:29PM By WISAM CASH [facility] V[facility] 40[facility] Oral Capsule, conventional 07/10/2017 - 08/14/2017 Provider: EILEEN VINCENT MD Diagnosis: Attention-defici t hyperactivity disorder, other type 1 Capsule every morning Last Documented On 8 10:36AM By Rad[facility] MD [facility] V[facility] 40[facility] Oral Capsule 06/04/2017 - 07/10/2017 Provider: EILEEN VINCENT MD Diagnosis: Attention-defici t hyperactivity disorder, other type 1 Capsule every morning Last Documented On 07/10/2017 4:20PM By Rad[facility] MD [facility] V[facility]MG Oral Capsule 06/01/2017 - 06/04/2017 Provider: EILEEN VINCENT MD Diagnosis: Attention-defici t hyperactivity disorder, other type 1 Capsule every morning Last Documented On 7 10:49AM By Radha Vincent MD ; [facility] Wellbutrin XL 300MG Oral Tablet, extended-release 24 hour 05/09/2017 - 09/06/2017 Provider: EILEEN VINCENT MD Diagnosis: Bipolar disorder , current episode depressed, moderate 1 tablet every morning Last Documented On 09/07/2017 7:28AM By Radha Vincent MD ; [facility] Vyvanse 40MG Oral Capsule, conventional 05/09/2017 - 06/01/2017 Provider: EILEEN VINCENT MD Diagnosis: Attention-defici t hyperactivity disorder, other type 1 Capsule every morning Last Documented On 06/01/2017 5:12PM By Radha Vincent MD ; [facility] LaMICtal 150MG Oral Tablet 05/09/2017 - 08/27/2017 Provider: EILEEN VINCENT MD Diagnosis: Bipolar disorder , unspecified One tablet twice a day Last Documented On 08/27/2017 1:17PM By Radha Vincent MD ; [facility] TraZODone HCl 50MG Oral Tablet 05/09/2017 - 08/28/2017 Provider: EILEEN VINCENT MD Diagnosis: Psychophysiologi c insomnia as directed --1 or 2 tabs at bedtime as needed for sleep Last Documented On 08/28/2017 5:21PM By Radha Vincent MD ; [facility] Namzaric 28-10MG Oral Capsule, extended-release 24 hour 05/09/2017 - 09/06/2017 Provider: EILEEN VINCENT MD Diagnosis: Dem in oth dis classd elswhr,unsp sev,w/o beh/psych/mood/anx 1 Capsule every morning Last Documented On 09/07/2017 7:28AM By Radha Vincent MD ; [facility] BusPIRone HCl 15MG Oral Tablet 05/09/2017 - 09/06/2017 Provider: EILEEN VINCENT MD Diagnosis: Generalized anxi ety disorder One tablet three times a day Last Documented On 09/07/2017 7:28AM By Radha Vincent MD ; [facility] Escitalopram Oxalate 20MG Oral Tablet 05/09/2017 - 06/12/2018 Provider: EILEEN VINCENT MD Diagnosis: Generalized anxi ety disorder One tablet daily Last Documented On 06/17/2018 6:08AM By Radha Vincent MD ; [facility] Vyvanse 40MG Oral Capsule, conventional 05/07/2017 - 05/09/2017 Provider: EILEEN VINCENT MD Diagnosis: Attention-defici t hyperactivity disorder, other type 1 Capsule every morning Last Documented On 7 12:21PM By Radha Vincent MD ; [facility] Vyvanse 30MG Oral Capsule, conventional 05/07/2017 - 05/09/2017 Provider: EILEEN VINCENT MD Diagnosis: Attention-defici t hyperactivity disorder, other type 1 Capsule every morning Last Documented On 7 11:33AM By WILMER REDDY LPN ; [facility] BusPIRone HCl 15MG Oral Tablet 04/11/2017 - 05/09/2017 Provider: EILEEN VINCENT MD Diagnosis: Generalized anxi ety disorder One tablet three times a day Last Documented On 7 12:21PM By Radha Vincent MD ; [facility] TraZODone HCl 50MG Oral Tablet 04/09/2017 - 05/09/2017 Provider: EILEEN VINCENT MD Diagnosis: Psychophysiologi c insomnia as directed --1 or 2 tabs at bedtime as needed for sleep Last Documented On 7 12:21PM By Radha Vincent MD ; [facility] LaMICtal 150MG Oral Tablet 04/09/2017 - 05/09/2017 Provider: EILEEN VINCENT MD Diagnosis: Bipolar disorder , unspecified One tablet twice a day Last Documented On 7 12:21PM By Radha Vincent MD ; [facility] Namzaric 28-10MG Oral Capsule Extended Release 24 Hour 04/09/2017 - 05/09/2017 Provider: EILEEN OCNNORS MD Diagnosis: Dem in oth dis c lassd elswhr,unsp sev,w/o beh/psych/mood/anx as directed Last Documented On 7 12:21PM By Radha Vincent MD ; [facility] Escitalopram Oxalate 20MG Oral Tablet 04/09/2017 - 05/09/2017 Provider: EILEEN VINCENT MD Diagnosis: Generalized anxi ety disorder One tablet daily Last Documented On 7 12:21PM By Radha Vincent MD ; [facility] BusPIRone HCl 15MG Oral Tablet 04/09/2017 - 04/11/2017 Provider: EILEEN VINCENT MD Diagnosis: Generalized anxi ety disorder One tablet three times a day --called in 90 and 6 RF on 09/20/16 Last Documented On 04/11/2017 2:10PM By Radha Vincent MD ; [facility] Vyvanse 30MG Oral Capsule 04/06/2017 - 05/07/2017 Provider: EILEEN VINCENT MD Diagnosis: Attention-defici t hyperactivity disorder, other type 1 Capsule every morning Last Documented On 7 10:41AM By Radha Vincent MD ; [facility] Terbinafine HCl 250MG Oral Tablet 04/06/2017 - 01/03/2018 Provider: BETSY CARRIZALES MD Diagnosis: 1 daily Last Documented On 8 12:15PM By Radha Vincent MD ; [facility] Focalin 10MG Oral Tablet 02/12/2017 - 04/06/2017 Provider: EILEEN VINCENT MD Diagnosis: Attention-defici t hyperactivity disorder, other type as directed --10 mg in am an d 10 mg at noon Last Documented On 7 11:22AM By WILMER REDDY LPN ; [facility] LaMICtal 150MG Oral Tablet 02/12/2017 - 04/06/2017 Provider: EILEEN VINCENT MD Diagnosis: Bipolar disorder , unspecified One tablet twice a day Last Documented On 04/09/2017 2:25AM By Radha Vincent MD ; [facility] TraZODone HCl 50MG Oral Tablet 02/12/2017 - 04/06/2017 Provider: EILEEN VINCENT MD Diagnosis: Psychophysiologi c insomnia as directed --1 or 2 tabs at bedtime as needed for sleep Last Documented On 04/09/2017 2:26AM By Radha Vincent MD ; [facility] Namzaric 28-10MG Oral Capsule, extended-release 24 hour 02/12/2017 - 04/06/2017 Provider: EILEEN VINCENT MD Diagnosis: Dem in oth dis classd elswhr,unsp sev,w/o beh/psych/mood/anx as directed Last Documented On 04/09/2017 2:25AM By Radha Vincent MD ; [facility] Escitalopram Oxalate 20MG Oral Tablet 02/12/2017 - 04/06/2017 Provider: EILEEN VINCENT MD Diagnosis: Generalized anxi ety disorder One tablet daily Last Documented On 04/09/2017 2:25AM By Radha Vincent MD ; [facility] BusPIRone HCl 15MG Oral Tablet 02/12/2017 - 04/06/2017 Provider: EILEEN VINCENT MD Diagnosis: Generalized anxi ety disorder One tablet three times a day --called in 90 and 6 RF on 09/20/16 Last Documented On 04/09/2017 2:25AM By Radha Vincent MD ; [facility] Wellbutrin XL 300MG Oral Tablet, extended-release 24 hour 02/09/2017 - 05/09/2017 Provider: EILEEN VINCENT MD Diagnosis: Bipolar disorder , current episode depressed, moderate 1 tablet every morning Last Documented On 7 12:21PM By Radha Vincent MD ; [facility] Focalin 10MG Oral Tablet 01/16/2017 - 04/06/2017 Provider: EILEEN VINCENT MD Diagnosis: Attention-defici t hyperactivity disorder, other type 1 tablet every morning Last Documented On 7 12:05PM By Radha Vincent MD ; [facility] Escitalopram Oxalate 20MG Oral Tablet 10/23/2016 - 01/16/2017 Provider: EILEEN VINCENT MD Diagnosis: Generalized anxi ety disorder One tablet daily Last Documented On 7 11:36AM By Radha Vincent MD ; [facility] LaMICtal 150MG Oral Tablet 10/23/2016 - 01/16/2017 Provider: EILEEN VINCENT MD Diagnosis: Bipolar disorder , unspecified One tablet twice a day Last Documented On 7 11:36AM By Radha Vincent MD ; [facility] TraZODone HCl 50MG Oral Tablet 10/23/2016 - 01/16/2017 Provider: EILEEN VINCENT MD Diagnosis: Psychophysiologi c insomnia as directed --1 or 2 tabs at bedtime as needed for sleep Last Documented On 7 11:36AM By Radha Vincent MD ; [facility] Wellbutrin XL 300MG Oral Tablet, extended-release 24 hour 10/23/2016 - 02/09/2017 Provider: EILEEN VINCENT MD Diagnosis: Bipolar disorder , current episode depressed, moderate 1 tablet every morning Last Documented On 7 12:46PM By Radha Vincent MD ; [facility] BusPIRone HCl 15MG Oral Tablet 10/23/2016 - 01/16/2017 Provider: EILEEN VINCENT MD Diagnosis: Generalized anxi ety disorder One tablet three times a day --called in 90 and 6 RF on 09/20/16 Last Documented On 7 11:36AM By Radha Vincent MD ; [facility] Namzaric 28-10MG Oral Capsule, extended-release 24 hour 10/12/2016 - 01/16/2017 Provider: EILEEN VINCENT MD Diagnosis: Dem in oth dis classd elswhr,unsp sev,w/o beh/psych/mood/anx as directed Last Documented On 7 11:36AM By Radha Vincent MD ; [facility] BusPIRone HCl 15MG Oral Tablet 09/20/2016 - 10/12/2016 Provider: EILEEN VINCENT MD Diagnosis: Generalized anxi ety disorder One tablet three times a day --called in 90 and 6 RF on 09/20/16 Last Documented On 10/23/2016 3:47PM By Radha Vincent MD ; [facility] TraZODone HCl 50 MG Tablet 08/01/2016 - 10/12/2016 Provider: EILEEN CONNORS MD Diagnosis: Oth insomnia not due to a substance or known physiol cond as directed --1 or 2 tabs at bedtime as needed for sleep Last Documented On 10/23/2016 3:47PM By Radha Vincent MD ; [facility] LaMICtal 150 MG Tablet 08/01/2016 - 10/12/2016 Provider: EILEEN CONNORS MD Diagnosis: Bipolar disord, crnt epsd depress, mild or mod severt, unsp One tablet twice a day Last Documented On 10/23/2016 3:47PM By Radha Vincent MD ; [facility] Namenda XR 28 MG Capsule Extended Release 24 Hour 08/01/2016 - 10/23/2016 Provider: EILEEN CONNORS MD Diagnosis: Unsp dementia, u nsp severity, without beh/psych/mood/anx 1 Capsule every morning Last Documented On 10/23/2016 3:44PM By Radha Vincent MD ; [facility] Aricept 23 MG Tablet 08/01/2016 - 10/23/2016 Provider: EILEEN VINCENT MD Diagnosis: Unsp dementia, u nsp severity, without beh/psych/mood/anx One tablet daily Last Documented On 10/23/2016 3:44PM By Radha Vincent MD ; [facility] Escitalopram Oxalate 20 MG Tablet 08/01/2016 - 10/12/2016 Provider: EILEEN VINCENT MD Diagnosis: Generalized anxi ety disorder One tablet daily Last Documented On 10/23/2016 3:47PM By Radha Vincent MD ; [facility] BusPIRone HCl 15 MG Tablet 08/01/2016 - 09/20/2016 Provider: EILEEN VINCENT MD Diagnosis: Generalized anxi ety disorder One tablet three times a day Last Documented On 09/20/2016 5:42PM By Radha Vincent MD ; [facility] Terbinafine HCl 250 MG Tablet 08/01/2016 - 01/16/2017 Provider: BETSY CARRIZALES MD Diagnosis: 1 daily Last Documented On 7 10:57AM By WILMER REDDY LPN ; [facility] TraZODone HCl 50 MG Tablet 07/28/2016 - 08/01/2016 Provider: EILEEN CONNORS MD Diagnosis: Oth insomnia not due to a substance or known physiol cond as directed --1 or 2 tabs at bedtime as needed for sleep Last Documented On 6 10:40AM By Radha Vincent MD ; [facility] Aricept 23 MG Tablet 07/28/2016 - 08/01/2016 Provider: EILEEN VINCENT MD Diagnosis: Unsp dementia, u nsp severity, without beh/psych/mood/anx One tablet daily Last Documented On 6 10:40AM By Radha Vincent MD ; [facility] LaMICtal 150 MG Tablet 06/27/2016 - 08/01/2016 Provider: EILEEN CONNORS MD Diagnosis: Bipolar disord, crnt epsd depress, mild or mod severt, unsp One tablet twice a day Last Documented On 6 10:40AM By Radha Vincent MD ; [facility] Wellbutrin XL 300 MG Tablet, extended-release 24 hour 03/13/2016 - 10/12/2016 Provider: EILEEN VINCENT MD Diagnosis: Bipolar disorder , current episode depressed, moderate 1 tablet every morning Last Documented On 10/23/2016 3:47PM By Radha Vincent MD ; [facility] BusPIRone HCl 15 MG Tablet 03/13/2016 - 08/01/2016 Provider: EILEEN VINCENT MD Diagnosis: Generalized anxi ety disorder One tablet three times a day Last Documented On 6 10:40AM By Radha Vincent MD ; [facility] TraZODone HCl 50 MG Tablet 03/13/2016 - 07/28/2016 Provider: EILEEN CONNORS MD Diagnosis: Oth insomnia not due to a substance or known physiol cond as directed --1 or 2 tabs at bedtime as needed for sleep Last Documented On 07/28/2016 4:47PM By Radha Vincent MD ; [facility] LaMICtal 150 MG Tablet 03/13/2016 - 06/27/2016 Provider: EILEEN CONNORS MD Diagnosis: Bipolar disord, crnt epsd depress, mild or mod severt, unsp One tablet twice a day Last Documented On 06/27/2016 6:27PM By Radha Vincent MD ; [facility] Aricept 23 MG Tablet 03/13/2016 - 07/28/2016 Provider: EILEEN VINCENT MD Diagnosis: Unsp dementia, u nsp severity, without beh/psych/mood/anx One tablet daily Last Documented On 07/28/2016 4:46PM By Radha Vincent MD ; [facility] Namenda XR 28 MG Capsule, extended-release 24 hour 03/13/2016 - 08/01/2016 Provider: EILEEN VINCENT MD Diagnosis: Unsp dementia, u nsp severity, without beh/psych/mood/anx 1 Capsule every morning -- h as 2 RF left as of 03/13/16 -- [facility] Last Documented On 6 10:40AM By Radha Vincent MD ; [facility] Escitalopram Oxalate 20 MG Tablet 03/13/2016 - 08/01/2016 Provider: EILEEN VINCENT MD Diagnosis: Generalized anxi ety disorder One tablet daily Last Documented On 6 10:40AM By Radha Vincent MD ; [facility] Escitalopram Oxalate 20 MG Tablet 03/09/2016 - 03/13/2016 Provider: EILEEN VINCENT MD Diagnosis: Generalized anxi ety disorder One tablet daily Last Documented On 6 10:35AM By Radha Vincent MD ; [facility] Levothyroxine Sodium 88 MCG Tablet 03/04/2016 - 04/21/2020 Provider: BETSY CARRIZALES MD Diagnosis: 1 tablet daily Last Documented On 0 11:32AM By WISAM CASH ; [facility] Wellbutrin XL 300 MG Tablet, extended-release 24 hour 02/17/2016 - 03/13/2016 Provider: EILEEN VINCENT MD Diagnosis: Bipolar disorder , current episode depressed, moderate 1 tablet every morning Last Documented On 6 10:36AM By Radha Vincent MD ; [facility] Wellbutrin XL 300 MG Tablet, extended-release 24 hour 02/07/2016 - 02/17/2016 Provider: EILEEN VINCENT MD Diagnosis: Bipolar disorder , current episode depressed, moderate 1 tablet every morning Last Documented On 02/17/2016 5:59PM By Radha Vincent MD ; [facility] Namenda XR 28 MG Capsule, extended-release 24 hour 01/17/2016 - 03/13/2016 Provider: EILEEN VINCENT MD Diagnosis: Unsp dementia, u nsp severity, without beh/psych/mood/anx 1 Capsule every morning Last Documented On 6 10:35AM By Radha Vincent MD ; [facility] Namenda XR 28 MG Capsule Extended Release 24 Hour 01/12/2016 - 01/17/2016 Provider: EILEEN CONNORS MD Diagnosis: Unsp dementia, u nsp severity, without beh/psych/mood/anx 1 Capsule every morning Last Documented On 6 11:49AM By Radha Vincent MD ; [facility] Calcium 600+D 600-400 MG-UNI T Tablet 11/10/2015 - 07/17/2022 Provider: BETSY CARRIZALES MD Diagnosis: 1 tablet twice a day Last Documented On 2 11:34AM By WISAM CASH ; [facility] Amlodipine Besy-Benazepril H Cl 5-10 MG Capsule, conventional 11/10/2015 - 03/13/2016 Provider: BERNARDO CARRIZALES MD Diagnosis: 1 capsule daily Last Documented On 6 9:55AM By WILMER REDDY LPN ; [facility] Omeprazole 20 MG Tablet, ent romeo coated 11/10/2015 - 12/15/2019 Provider: BETSY CARRIZALES MD Diagnosis: 1 tablet daily Last Documented On 0 11:19AM By WISAM JUAREZ [facility] ; [facility] Metoprolol Tartrate 25 MG Tablet 10/09/2015 - 09/06/19 Provider: BETSY CARRIZALES MD Diagnosis: Take 1/2 tablet two times a day Last Documented On 8 11:00AM By LAURA VANG [facility] ; [facility] Pantoprazole Sodium 40 MG Ta blet, enteric coated 09/30/2015 - 01/03/2018 Provider: SIERRA Golden Diagnosis: 1 tablet daily Last Documented On 8 12:14PM By Radha Vincent MD ; [facility] Aricept 23 MG Tablet 07/29/2015 - 03/13/2016 Provider: EILEEN VINCENT MD Diagnosis: Unsp dementia, u nsp severity, without beh/psych/mood/anx One tablet daily Last Documented On 6 10:35AM By Radha Vincent MD ; [facility] BusPIRone HCl 10 MG Tablet 07/29/2015 - 09/20/2016 Provider: EILEEN VINCENT MD Diagnosis: Generalized anxi ety disorder One tablet three times a day Last Documented On 7 11:08AM By WILMER REDDY [employer] ; [facility] Escitalopram Oxalate 20 MG Tablet 07/29/2015 - 03/09/2016 Provider: EILEEN VINCENT MD Diagnosis: Generalized anxi ety disorder One tablet daily Last Documented On 03/09/2016 4:12PM By Radha Vincent MD ; [facility] TraZODone HCl 50 MG Tablet 07/29/2015 - 03/13/2016 Provider: EILEEN CONNORS MD Diagnosis: Oth insomnia not due to a substance or known physiol cond One tablet at bed time Last Documented On 6 10:35AM By Radha Vincent MD ; [facility] Wellbutrin XL 300 MG Tablet, extended-release 24 hour 07/29/2015 - 02/07/2016 Provider: EILEEN VINCENT MD Diagnosis: Bipolar disorder , current episode depressed, moderate 1 tablet every morning Last Documented On 6 12:34PM By Radha Vincent MD ; [facility] LaMICtal 150 MG Tablet 07/29/2015 - 03/13/2016 Provider: EILEEN CONNORS MD Diagnosis: Bipolar disord, crnt epsd depress, mild or mod severt, unsp One tablet twice a day Last Documented On 6 10:35AM By Radha Vincent MD ; [facility] Namenda XR 28 MG Capsule, extended-release 24 hour 07/29/2015 - 01/12/2016 Provider: EILEEN VINCENT MD Diagnosis: Unsp dementia, u nsp severity, without beh/psych/mood/anx 1 Capsule every morning Last Documented On 01/12/2016 9:11AM By Radha Vincent MD ; [facility] Wellbutrin XL 300 MG Tablet Extended Release 24 Hour 05/24/2015 - 07/29/2015 Provider: EILEEN VINCENT MD Diagnosis: Bipolar disorder , current episode depressed, moderate 1 tablet every morning Last Documented On 5 10:26AM By Radha Vincent MD ; [facility] Escitalopram Oxalate 20 MG Tablet 05/24/2015 - 07/29/2015 Provider: EILEEN VINCENT MD Diagnosis: Generalized anxi ety disorder One tablet daily Last Documented On 5 10:26AM By Radha Vincent MD ; [facility] BusPIRone HCl 10 MG Tablet 05/24/2015 - 07/29/2015 Provider: EILEEN VINCENT MD Diagnosis: Generalized anxi ety disorder One tablet three times a day Last Documented On 5 10:26AM By Radha Vincent MD ; [facility] LaMICtal 150 MG Tablet 05/24/2015 - 07/29/2015 Provider: EILEEN CONNORS MD Diagnosis: Bipolar disord, crnt epsd depress, mild or mod severt, unsp One tablet twice a day Last Documented On 5 10:26AM By Radha Vincent MD ; [facility] TraZODone HCl 50 MG Tablet 05/24/2015 - 07/29/2015 Provider: EILEEN CONNORS MD Diagnosis: Oth insomnia not due to a substance or known physiol cond One tablet at bed time Last Documented On 5 10:26AM By Radha Vincent MD ; [facility] Aricept 23 MG Tablet 05/24/2015 - 07/29/2015 Provider: EILEEN VINCENT MD Diagnosis: Unsp dementia, u nsp severity, without beh/psych/mood/anx One tablet daily Last Documented On 5 10:26AM By Radha Vincent MD ; [facility] Namenda XR 28 MG Capsule Extended Release 24 Hour 05/24/2015 - 07/29/2015 Provider: EILEEN CONNORS MD Diagnosis: Unsp dementia, u nsp severity, without beh/psych/mood/anx 1 Capsule every morning Last Documented On 5 10:26AM By Radha Vincent MD ; [facility] Synthroid 88 MCG Tablet 02/16/2015 - 01/16/2017 Provider: BETSY CARRIZALES MD Diagnosis: Hypothyroidism, unspecified 1 tablet daily Last Documented On 7 10:57AM By WILMER REDDY LPN ; [facility] Wellbutrin XL 300 MG Tablet, extended-release 24 hour 01/28/2015 - 05/24/2015 Provider: EILEEN VINCENT MD Diagnosis: BIPOL I CUR DEPR ES NOS 1 tablet every morning Last Documented On 5 10:54AM By Radha Vincent MD ; [facility] Namenda XR 28 MG Capsule, extended-release 24 hour 01/28/2015 - 05/24/2015 Provider: EILEEN VINCENT MD Diagnosis: PRESENILE HANNY IA 1 Capsule every morning Last Documented On 5 10:54AM By Radha Vincent MD ; [facility] Aricept 23 MG Tablet 01/28/2015 - 05/24/2015 Provider: EILEEN VINCENT MD Diagnosis: PRESENILE HANNY IA One tablet daily Last Documented On 5 10:54AM By Radha Vincent MD ; [facility] LaMICtal 150 MG Tablet 01/28/2015 - 05/24/2015 Provider: EILEEN CONNORS MD Diagnosis: BIPOL I CUR DEPR ES NOS One tablet twice a day Last Documented On 5 10:54AM By Radha Vincent MD ; [facility] TraZODone HCl 50 MG Tablet 01/28/2015 - 05/24/2015 Provider: EILEEN CONNORS MD Diagnosis: PERSISTENT INSOM MURIEL One tablet at bed time Last Documented On 5 10:54AM By Radha Vincent MD ; [facility] Escitalopram Oxalate 20 MG Tablet 01/28/2015 - 05/24/2015 Provider: EILEEN VINCENT MD Diagnosis: GENERALIZED ANXI ETY DIS One tablet daily Last Documented On 5 10:54AM By Radha Vincent MD ; [facility] BusPIRone HCl 10 MG Tablet 01/28/2015 - 05/24/2015 Provider: EILEEN VINCENT MD Diagnosis: GENERALIZED ANXI ETY DIS One tablet three times a day Last Documented On 5 10:54AM By Radha Vincent MD ; [facility] TraZODone HCl 50 MG Tablet 12/09/2014 - 01/28/2015 Provider: EILEEN CONNORS MD Diagnosis: PERSISTENT INSOM MURIEL One tablet at bed time Last Documented On 5 12:08PM By aRdha Vincent MD ; [facility] TraZODone HCl 50 MG Tablet 11/06/2014 - 12/09/2014 Provider: EILEEN CONNORS MD Diagnosis: PERSISTENT INSOM MURIEL One tablet at bed time Last Documented On 12/09/2014 5:43PM By Radha Vincent MD ; [facility] busPIRone HCl 10 MG OR TABS 10/15/2014 - 01/28/2015 Provider: EILEEN VINCENT MD Diagnosis: GENERALIZED ANXI ETY DIS as needed for anxiety Last Documented On 5 12:08PM By Radha Vincent MD ; [facility] LaMICtal 150 MG OR TABS 10/15/2014 - 01/28/2015 Provider: EILEEN CONNORS MD Diagnosis: BIPOL I CUR DEPR ES NOS Last Documented On 5 12:08PM By Radha Vincent MD ; [facility] Wellbutrin XL 300 MG OR TB24 10/15/2014 - 01/28/2015 Provider: EILEEN VINCENT MD Diagnosis: BIPOL I CUR DEPR ES NOS Last Documented On 5 12:08PM By Radha Vincent MD ; [facility] traZODone HCl 50 MG OR TABS 10/15/2014 - 11/06/2014 Provider: EILEEN CONNORS MD Diagnosis: PERSISTENT INSOM MURIEL Last Documented On 11/06/2014 5:25PM By Radha Vincent MD ; [facility] Namenda XR 28 MG OR CP24 10/15/2014 - 01/28/2015 Provider: EILEEN CONNORS MD Diagnosis: PRESENILE HANNY [place] Last Documented On 5 12:08PM By Radha Vincent MD ; [facility] Aricept 23 MG OR TABS 10/15/2014 - 01/28/2015 Provider : EILEEN VINCENT MD Diagnosis: PRESENILE HANNY [place] Last Documented On 5 12:08PM By Radha Vincent MD ; [facility] Escitalopram Oxalate 20 MG OR TABS 10/15/2014 - 01/28/2015 Provider: EILEEN VINCENT MD Diagnosis: GENERALIZED ANXI ETY DIS Last Documented On 5 12:08PM By Radha Vincent MD ; [facility] Fetzima 40 MG OR CP24 07/16/2014 - 10/15/2014 Provider: EILEEN CONNORS MD Diagnosis: GENERALIZED ANXI ETY DIS Last Documented On 5 11:04AM By WILMER REDDY LPN ; [facility] Escitalopram Oxalate 20 MG OR TABS 07/16/2014 - 10/15/2014 Provider: EILEEN VINCENT MD Diagnosis: GENERALIZED ANXI ETY DIS Last Documented On 5 11:45AM By Radha Vincent MD ; [facility] LaMICtal 150 MG OR TABS 07/16/2014 - 10/15/2014 Provider: EILEEN CONNORS MD Diagnosis: BIPOL I CUR DEPR ES NOS Last Documented On 5 11:45AM By Radha Vincent MD ; [facility] Wellbutrin XL 150 MG OR TB24 07/16/2014 - 05/24/2015 Provider: EILEEN VINCENT MD Diagnosis: BIPOL I CUR DEPR ES NOS Last Documented On 5 10:52AM By Radha Vincent MD ; [facility] Fetzima Titration 20 & 40 MG OR C4PK 07/16/2014 - 10/15/2014 Provider: EILEEN VINCENT MD Diagnosis: GENERALIZED ANXI ETY DIS 20 mg in am for 2 days then 40 mg in am thereafter -- 50 samples given 2 months samples Last Documented On 5 11:04AM By WILMER REDDY LPN ; [facility] traZODone HCl 50 MG OR TABS 07/16/2014 - 10/15/2014 Provider: EILEEN CONNORS MD Diagnosis: PERSISTENT INSOM MURIEL Last Documented On 5 11:45AM By Radha Vincent MD ; [facility] Aricept 23 MG OR TABS 07/16/2014 - 10/15/2014 Provider : EILEEN VINCENT MD Diagnosis: PRESENILE HANNY [place] Last Documented On 5 11:45AM By Radha Vincent MD ; [facility] Namenda XR 28 MG OR CP24 07/16/2014 - 10/15/2014 Provider: EILEEN CONNORS MD Diagnosis: PRESENILE HANNY [place] Last Documented On 5 11:45AM By Radha Vincent MD ; [facility] busPIRone HCl 10 MG OR TABS 07/16/2014 - 10/15/2014 Provider: EILEEN VINCENT MD Diagnosis: GENERALIZED ANXI ETY DIS as needed for anxiety Last Documented On 5 11:45AM By Radha Vincent MD ; [facility] Fetzima Titration 20 & 40 MG OR C4PK 06/01/2014 - 07/16/2014 Provider: EILEEN VINCENT MD Diagnosis: GENERALIZED ANXI ETY DIS 20 mg in am for 2 days then 40 mg in am thereafter -- 50 samples given Last Documented On 4 11:10AM By Radha Vincent MD ; [facility] busPIRone HCl 10 MG OR TABS 04/30/2014 - 07/16/2014 Provider: EILEEN VINCENT MD Diagnosis: GENERALIZED ANXI ETY DIS as needed for anxiety --was told to take extra Buspar when she has bad thought since she is only taking it 2 x a day Last Documented On 4 11:10AM By Radha Vincent MD ; [facility] Wellbutrin XL 150 MG OR TB24 04/07/2014 - 07/16/2014 Provider: EILEEN VINCENT MD Diagnosis: BIPOL I CUR DEPR ES NOS Last Documented On 4 11:10AM By Radha Vincent MD ; [facility] LaMICtal 150 MG OR TABS 04/07/2014 - 07/16/2014 Provider: EILEEN CONNORS MD Diagnosis: BIPOL I CUR DEPR ES NOS Last Documented On 4 11:10AM By Radha Vincent MD ; [facility] traZODone HCl 50 MG OR TABS 04/07/2014 - 07/16/2014 Provider: EILEEN CONNORS MD Diagnosis: PERSISTENT INSOM MURIEL Last Documented On 4 11:10AM By Radha Vincent MD ; [facility] Namenda XR 28 MG OR CP24 04/07/2014 - 07/16/2014 Provider: EILEEN CONNORS MD Diagnosis: PRESENILE HANNY [place] Last Documented On 4 11:10AM By Radha Vincent MD ; [facility] Aricept 23 MG OR TABS 04/07/2014 - 07/16/2014 Provider : EILEEN VINCENT MD Diagnosis: PRESENILE HANNY [place] Last Documented On 4 11:10AM By Radha Vincent MD ; [facility] Escitalopram Oxalate 20 MG OR TABS 04/07/2014 - 07/16/2014 Provider: EILEEN VINCENT MD Diagnosis: GENERALIZED ANXI ETY DIS Last Documented On 4 11:10AM By Radha Vincent MD ; [facility] busPIRone HCl 10 MG OR TABS 04/07/2014 - 04/30/2014 Provider: EILEEN VINCENT MD Diagnosis: GENERALIZED ANXI ETY DIS as needed for anxiety Last Documented On 04/30/2014 9:59AM By Radha Vincent MD ; [facility] Wellbutrin XL 150 MG OR TB24 02/09/2014 - 04/07/2014 Provider: EILEEN VINCENT MD Diagnosis: BIPOL I CUR DEPR ES NOS 1 tablet every morning Last Documented On 04/07/2014 2:56PM By Radha Vincent MD ; [facility] Lipitor 20 MG OR TABS 02/09/2014 - 11/10/2015 Provider : Diagnosis: 1 every p.m. Last Documented On 6 10:25AM By WILMER REDDY LPN ; [facility] traZODone HCl 50 MG OR TABS 02/09/2014 - 04/07/2014 Provider: EILEEN CONNORS MD Diagnosis: PERSISTENT INSOM MURIEL Last Documented On 04/07/2014 2:56PM By aRdha Vincent MD ; [facility] Lasix 20 MG OR TABS 02/09/2014 - 11/10/2015 Provider: Diagnosis: 1 every morning Last Documented On 6 10:24AM By WILMER REDDY LPN ; [facility] Aspirin 81 MG OR TABS 02/09/2014 - 11/10/2015 Provider : Diagnosis: 1 every morning Last Documented On 6 10:23AM By WILMER REDDY LPN ; [facility] busPIRone HCl 10 MG OR TABS 02/09/2014 - 04/07/2014 Provider: EILEEN VINCENT MD Diagnosis: GENERALIZED ANXI ETY DIS as needed for anxiety Last Documented On 04/07/2014 2:56PM By Radha Vincent MD ; [facility] Aricept 23 MG OR TABS 02/09/2014 - 04/07/2014 Provider : EILEEN VINCENT MD Diagnosis: PRESENILE HANNY [place] Last Documented On 04/07/2014 2:56PM By Radha Vincent MD ; [facility] Escitalopram Oxalate 20 MG OR TABS 02/09/2014 - 04/07/2014 Provider: EILEEN VINCENT MD Diagnosis: GENERALIZED ANXI ETY DIS Last Documented On 04/07/2014 2:56PM By Radha Vincent MD ; [facility] Namenda XR 28 MG OR CP24 02/09/2014 - 04/07/2014 Provider: EILEEN CONNORS MD Diagnosis: PRESENILE HANNY [place] Last Documented On 04/07/2014 2:56PM By Radha Vincent MD ; [facility] Terbinafine HCl 250 MG OR TABS 12/18/2013 - 04/07/2014 Provider: BETSY CARRIZALES MD Diagnosis: one tablet daily Last Documented On 04/07/2014 2:56PM By Radha Vincent MD ; [facility] Aricept 23 MG OR TABS 11/22/2013 - 02/09/2014 Provider : EILEEN VINCENT MD Diagnosis: PRESENILE HANNY [place] Last Documented On 02/09/2014 3:31PM By Radha Vincent MD ; [facility] Namenda XR 28 MG OR CP24 11/22/2013 - 02/09/2014 Provider: EILEEN CONNORS MD Diagnosis: PRESENILE HANNY [place] Last Documented On 02/09/2014 3:31PM By Radha Vincent MD ; [facility] traZODone HCl 50 MG OR TABS 11/22/2013 - 02/09/2014 Provider: EILEEN CONNORS MD Diagnosis: PERSISTENT INSOM MURIEL Last Documented On 02/09/2014 3:31PM By Radha Vincent MD ; [facility] Wellbutrin XL 150 MG OR TB24 11/22/2013 - 02/09/2014 Provider: EILEEN VINCENT MD Diagnosis: BIPOL I CUR DEPR ES NOS 1 tablet every morning Last Documented On 02/09/2014 3:31PM By Radha Vincent MD ; [facility] Escitalopram Oxalate 20 MG OR TABS 11/22/2013 - 02/09/2014 Provider: EILEEN VINCENT MD Diagnosis: GENERALIZED ANXI ETY DIS Last Documented On 02/09/2014 3:31PM By Radha Vincent MD ; [facility] LaMICtal 150 MG OR TABS 11/21/2013 - 04/07/2014 Provider: EILEEN CONNORS MD Diagnosis: BIPOL I CUR DEPR ES NOS Last Documented On 04/07/2014 2:56PM By Radha Vincent MD ; [facility] busPIRone HCl 10 MG OR TABS 11/21/2013 - 02/09/2014 Provider: EILEEN VINCENT MD Diagnosis: GENERALIZED ANXI ETY DIS as needed for anxiety Last Documented On 02/09/2014 3:31PM By Radha Vincent MD ; [facility] traZODone HCl 50 MG OR TABS 11/11/2013 - 11/21/2013 Pr ovider: EILEEN VINCENT MD Diagnosis: Last Documented On 11/22/2013 9:48PM By Radha Vincent MD ; [facility] Fanapt 2 MG OR TABS 10/23/2013 - 11/22/2013 Provider: EILEEN VINCENT MD Diagnosis: BIPOL I CUR DEPR ES NOS pt given samples of 1 mg bid then 2 mg bid --4 tablets samples Last Documented On 11/22/2013 9:43PM By Radha Vincent MD ; [facility] Namenda XR 28 MG OR CP24 10/23/2013 - 11/21/2013 Provider: EILEEN CONNORS MD Diagnosis: PRESENILE HANNY [place] Last Documented On 11/22/2013 9:48PM By Radha Vincent MD ; [facility] lamoTRIgine 200 MG OR TABS 10/23/2013 - 11/22/2013 Provider: EILEEN VINCENT MD Diagnosis: BIPOL I CUR DEPR ES NOS Last Documented On 11/22/2013 9:43PM By Radha Vincent MD ; [facility] Wellbutrin XL 150 MG OR TB24 10/23/2013 - 11/21/2013 Provider: EILEEN VINCENT MD Diagnosis: BIPOL I CUR DEPR ES NOS 1 tablet every morning Last Documented On 11/22/2013 9:48PM By Radha Vincent MD ; [facility] busPIRone HCl 10 MG OR TABS 10/23/2013 - 11/21/2013 Provider: EILEEN VINCENT MD Diagnosis: GENERALIZED ANXI ETY DIS as needed for anxiety Last Documented On 11/21/2013 4:07PM By Radha Vincent MD ; [facility] Aricept 23 MG OR TABS 10/23/2013 - 11/21/2013 Provider : EILEEN VINCENT MD Diagnosis: PRESENILE HANNY [place] Last Documented On 11/22/2013 9:48PM By Radha Vincent MD ; [facility] Escitalopram Oxalate 20 MG OR TABS 10/23/2013 - 11/21/2013 Provider: EILEEN VINCENT MD Diagnosis: GENERALIZED ANXI ETY DIS Last Documented On 11/22/2013 9:48PM By Radha Vincent MD ; [facility] Fanapt 2 MG OR TABS 10/23/2013 - 10/23/2013 Provider: EILEEN VINCENT MD Diagnosis: BIPOL I CUR DEPR ES NOS Last Documented On 10/23/2013 8:22PM By Radha Vincent MD ; [facility] Wellbutrin XL 150 MG OR TB24 07/28/2013 - 10/23/2013 Provider: EILEEN VINCENT MD Diagnosis: BIPOL I CUR DEPR ES NOS 1 tablet every morning Last Documented On 10/23/2013 3:35PM By Radha Vincent MD ; [facility] lamoTRIgine 200 MG OR TABS 07/28/2013 - 10/23/2013 Provider: EILEEN VINCENT MD Diagnosis: BIPOL I CUR DEPR ES NOS Last Documented On 10/23/2013 3:35PM By Radha Vincent MD ; [facility] Diclofenac Sodium 75 MG OR TBEC 07/28/2013 - Provider: Diagnosis: Last Documented On 3:00PM By TERRI CASH ; [facility] Escitalopram Oxalate 20 MG OR TABS 07/28/2013 - 10/23/2013 Provider: EILEEN VINCENT MD Diagnosis: GENERALIZED ANXI ETY DIS Last Documented On 10/23/2013 8:22PM By Radha Vincent MD ; [facility] Aricept 23 MG OR TABS 07/28/2013 - 10/23/2013 Provider : EILEEN VINCENT MD Diagnosis: PRESENILE HANNY [place] Last Documented On 10/23/2013 3:35PM By Radha Vincent MD ; [facility] busPIRone HCl 10 MG OR TABS 07/28/2013 - 10/23/2013 Provider: EILEEN VINCENT MD Diagnosis: GENERALIZED ANXI ETY DIS as needed for anxiety Last Documented On 10/23/2013 3:35PM By Radha Vincent MD ; [facility] Namenda XR 28 MG OR CP24 07/28/2013 - 10/23/2013 Provider: EILEEN CONNORS MD Diagnosis: PRESENILE HANNY [place] Last Documented On 10/23/2013 3:35PM By Radha Vincent MD ; [facility] Neupro 1 MG/24HR TD PT24 07/28/2013 - 10/23/2013 Provider: EILEEN CONNORS MD Diagnosis: Restless Legs Sy ndrome apply 1 patch to skin of upp er arm, flank etc...once a day--totate sites Last Documented On 10/23/2013 3:16PM By Radha Vincent MD ; [facility] Dicyclomine HCl 10 MG OR CAPS 05/07/2013 - 11/10/2015 Provider: Diagnosis: Last Documented On 6 10:21AM By WILMER REDDY LPN ; [facility] lamoTRIgine 200 MG OR TABS 05/07/2013 - 07/28/2013 Provider: EILEEN VINCENT MD Diagnosis: BIPOL I CUR DEPR ES NOS Last Documented On 07/28/2013 3:48PM By Radha Vincent MD ; [facility] Aricept 23 MG OR TABS 05/07/2013 - 07/28/2013 Provider : EILEEN VINCENT MD Diagnosis: PRESENILE HANNY [place] It is now 28mg qd Last Documented On 07/28/2013 3:48PM By Radha Vincent MD ; [facility] Namenda 10 MG OR TABS 05/07/2013 - 11/21/2013 Provider : EILEEN VINCENT MD Diagnosis: PRESENILE HANNY [place] Namenda XR 28 mg a day for 9 0 days and 3 refill--pt started 05/07/13 Last Documented On 11/21/2013 4:11PM By Radha Vincent MD ; [facility] Oleptro 150 MG OR TB24 05/07/2013 - 10/23/2013 Provider: EILEEN CONNORS MD Diagnosis: GENERALIZED ANXI ETY DIS Last Documented On 10/23/2013 3:17PM By Radha Vincent MD ; [facility] Escitalopram Oxalate 20 MG OR TABS 05/07/2013 - 07/28/2013 Provider: EILEEN VINCENT MD Diagnosis: GENERALIZED ANXI ETY DIS Last Documented On 07/28/2013 3:48PM By Radha Vincent MD ; [facility] Wellbutrin XL 150 MG OR TB24 05/07/2013 - 07/28/2013 Provider: EILEEN VINCENT MD Diagnosis: BIPOL I CUR DEPR ES NOS 1 tablet every morning Last Documented On 07/28/2013 3:48PM By Radha Vincent MD ; [facility] Aricept 23 MG OR TABS 05/07/2013 - 05/07/2013 Provider : Diagnosis: Last Documented On 3 2:44PM By TAYLA LIMA Timo ; [facility] Aricept 23 MG OR TABS 05/07/2013 - 05/07/2013 Provider : Diagnosis: It is now 28mg qd Last Documented On 05/07/2013 3:19PM By Radha Vincent MD ; [facility] Atorvastatin Calcium 20 MG OR TABS 01/28/2013 - 2012 Provider: Diagnosis: Last Documented On 3 3:46PM By TERRI CASH ; [facility] Synthroid 88 MCG OR TABS 01/28/2013 - 11/10/2015 Provi itz: Diagnosis: Last Documented On 6 10:30AM By WILMER REDDY LPN ; [facility] HM Vitamin D 25 MCG (1000 UT) OR TABS 01/28/2013 - Provider: Diagnosis: 2 a day Last Documented On 4 3:00PM By TERRI CASH ; [facility] Namenda 10 MG OR TABS 01/28/2013 - 05/07/2013 Provider : EILEEN VINCENT MD Diagnosis: PRESENILE HANNY [place] Finish current supply of 10 mg bid and then start Namenda XR 28 mg a day for 90 days and 3 refill Last Documented On 05/07/2013 3:19PM By Radha Vincent MD ; [facility] Aricept 23 MG OR TABS 01/28/2013 - 05/07/2013 Provider : EILEEN VINCENT MD Diagnosis: PRESENILE HANNY [place] Last Documented On 3 2:43PM By TAYLA CASH ; [facility] Wellbutrin XL 150 MG OR TB24 01/28/2013 - 05/07/2013 Provider: EILEEN VINCENT MD Diagnosis: GENERALIZED ANXI ETY DIS 1 tablet every morning Last Documented On 05/07/2013 3:19PM By Radha Vincent MD ; [facility] Oleptro 150 MG OR TB24 01/28/2013 - 05/07/2013 Provider: EILEEN CONNORS MD Diagnosis: GENERALIZED ANXI ETY DIS Last Documented On 05/07/2013 3:19PM By Radha Vincent MD ; [facility] Escitalopram Oxalate 20 MG OR TABS 01/28/2013 - 05/07/2013 Provider: EILEEN VINCENT MD Diagnosis: GENERALIZED ANXI ETY DIS Last Documented On 05/07/2013 3:19PM By Radha Vincent MD ; [facility] lamoTRIgine 200 MG OR TABS 01/28/2013 - 05/07/2013 Provider: EILEEN VINCENT MD Diagnosis: BIPOL I CUR DEPR ES NOS Last Documented On 05/07/2013 3:19PM By Radha Vincent MD ; [facility] Latuda 20 MG OR TABS 01/28/2013 - 05/07/2013 Provider: EILEEN VINCENT MD Diagnosis: BIPOL I CUR DEPR ES NOS Last Documented On 3 2:45PM By TAYLA CASH ; [facility] Escitalopram Oxalate 20 MG OR TABS 11/08/2012 - 01/28/2013 Provider: EILEEN VINCENT MD Diagnosis: GENERALIZED ANXI ETY DIS Last Documented On 01/28/2013 4:46PM By Radha Vincent MD ; [facility] lamoTRIgine 200 MG OR TABS 11/08/2012 - 01/28/2013 Provider: EILEEN VINCENT MD Diagnosis: BIPOL I CUR DEPR ES NOS Last Documented On 01/28/2013 4:46PM By Radha Vincent MD ; [facility] Aricept 23 MG OR TABS 11/08/2012 - 01/28/2013 Provider : EILEEN VINCENT MD Diagnosis: PRESENILE HANNY [place] Last Documented On 01/28/2013 4:46PM By Radha Vincent MD ; [facility] Oleptro 150 MG OR TB24 11/08/2012 - 01/28/2013 Provider: EILEEN CONNORS MD Diagnosis: GENERALIZED ANXI ETY DIS Last Documented On 01/28/2013 4:46PM By Radha Vincent MD ; [facility] Namenda 10 MG OR TABS 11/08/2012 - 01/28/2013 Provider : EILEEN VINCENT MD Diagnosis: PRESENILE HANNY [place] Last Documented On 01/28/2013 8:04PM By Radha Vincent MD ; [facility] Latuda 20 MG OR TABS 11/08/2012 - 01/28/2013 Provider: EILEEN VINCENT MD Diagnosis: BIPOL I CUR DEPR ES NOS Last Documented On 01/28/2013 4:46PM By Radha Vincent MD ; [facility] Wellbutrin XL 150 MG OR TB24 09/04/2012 - 01/28/2013 Provider: EILEEN VINCENT MD Diagnosis: BIPOL I CURR DEP W/O PSY 1 tablet every morning Last Documented On 01/28/2013 4:46PM By Radha Vincent MD ; [facility] Latuda 20 MG OR TABS 09/04/2012 - 11/08/2012 Provider: EILEEN VINCENT MD Diagnosis: BIPOL I CURR DEP W/O PSY Last Documented On 11/08/2012 3:23PM By Radha Vincent MD ; [facility] lamoTRIgine 200 MG OR TABS 09/04/2012 - 11/08/2012 Provider: EILEEN VINCENT MD Diagnosis: BIPOL I CURR DEP W/O PSY Last Documented On 11/08/2012 3:23PM By Radha Vincent MD ; [facility] Namenda 10 MG OR TABS 09/04/2012 - 11/08/2012 Provider : EILEEN VINCENT MD Diagnosis: PRESENILE HANNY [place] Last Documented On 11/08/2012 3:23PM By Radha Vincent MD ; [facility] Aricept 23 MG OR TABS 09/04/2012 - 11/08/2012 Provider : EILEEN VINCENT MD Diagnosis: PRESENILE HANNY [place] Last Documented On 11/08/2012 3:23PM By Radha Vincent MD ; [facility] Oleptro 150 MG OR TB24 09/04/2012 - 11/08/2012 Provider: EILEEN CONNORS MD Diagnosis: GENERALIZED ANXI ETY DIS Last Documented On 11/08/2012 3:23PM By Radha Vincent MD ; [facility] Escitalopram Oxalate 20 MG OR TABS 09/04/2012 - 11/08/2012 Provider: EILEEN VINCENT MD Diagnosis: GENERALIZED ANXI ETY DIS Last Documented On 11/08/2012 3:23PM By Radha Vincent MD ; [facility] Wellbutrin XL 150 MG OR TB24 08/07/2012 - 09/04/2012 Provider: EILEEN VINCENT MD Diagnosis: BIPOL I CURR DEP W/O PSY 1 tablet every morning Last Documented On 09/04/2012 2:41PM By Radha Vincent MD ; [facility] Latuda 20 MG OR TABS 08/07/2012 - 09/04/2012 Provider: EILEEN VINCENT MD Diagnosis: BIPOL I CURR DEP W/O PSY Last Documented On 09/04/2012 8:51PM By Rahda Vincent MD ; [facility] Aricept 23 MG OR TABS 08/07/2012 - 09/04/2012 Provider : EILEEN VINCENT MD Diagnosis: PRESENILE HANNY [place] Last Documented On 09/04/2012 8:51PM By Radha Vincent MD ; [facility] Oleptro 150 MG OR TB24 08/07/2012 - 09/04/2012 Provider: EILEEN CONNORS MD Diagnosis: GENERALIZED ANXI ETY DIS Last Documented On 09/04/2012 8:51PM By Radha Vincent MD ; [facility] Escitalopram Oxalate 20 MG OR TABS 08/07/2012 - 09/04/2012 Provider: EILEEN VINCENT MD Diagnosis: GENERALIZED ANXI ETY DIS Last Documented On 09/04/2012 8:51PM By Radha Vincent MD ; [facility] lamoTRIgine 200 MG OR TABS 08/07/2012 - 09/04/2012 Provider: EILEEN VINCENT MD Diagnosis: BIPOL I CURR DEP W/O PSY Last Documented On 09/04/2012 8:51PM By Radha Vincent MD ; [facility] Namenda 10 MG OR TABS 08/07/2012 - 09/04/2012 Provider : EILEEN VINCENT MD Diagnosis: PRESENILE HANNY [place] Last Documented On 09/04/2012 8:51PM By Radha Vincent MD ; [facility] Aspirin 81 MG OR CHEW 08/02/2012 - 01/28/2013 Provider : Diagnosis: Last Documented On 3 3:45PM By TERRI CASH ; [facility] Namenda 10 MG OR TABS 08/02/2012 - 08/07/2012 Provider : Diagnosis: Last Documented On 08/07/2012 2:00PM By Radha Vincent MD ; [facility] Aricept 23 MG OR TABS 08/02/2012 - 08/07/2012 Provider : Diagnosis: Last Documented On 08/07/2012 2:00PM By Radha Vincent MD ; [facility] Latuda 20 MG OR TABS 08/02/2012 - 08/07/2012 Provider: Diagnosis: Last Documented On 08/07/2012 2:00PM By Radha Vincent MD ; [facility] Omeprazole 20 MG OR TBEC 08/02/2012 - 11/10/2015 Provi itz: Diagnosis: Last Documented On 6 10:28AM By WILMER REDDY LPN ; [facility] amLODIPine Besy-Benazepril HCl 5-10 MG OR CAPS 1 10/03/2011 - 11/10/2015 Provider: Diagnosis: Last Documented On 6 10:22AM By WILMER REDDY LPN ; [facility] Escitalopram Oxalate 20 MG OR TABS 08/02/2012 - 2011 Provider: Diagnosis: Last Documented On 08/07/2012 2:00PM By Radha Vincent MD ; [facility] buPROPion HCl ER (SR) 150 MG OR TB12 08/02/2012 - 07/14 Provider: Diagnosis: every morning Last Documented On 08/07/2012 2:00PM By Radha Vincent MD ; [facility] lamoTRIgine 200 MG OR TABS 08/02/2012 - 08/07/2012 Pro vider: Diagnosis: Last Documented On 08/07/2012 2:00PM By Radha Vincent MD ; [facility] Oleptro 150 MG OR TB24 08/02/2012 - 08/07/2012 Provide r: Diagnosis: Last Documented On 08/07/2012 2:00PM By Radha Vincent MD ; [facility] Levothyroxine Sodium 88 MCG OR TABS 08/02/2012 - 05/07 Provider: Diagnosis: Last Documented On 3 2:45PM By TAYLA CASH ; [facility] Calcium 600/Vitamin D 600-400 MG-UNIT OR TABS 08/02/20 - 11/10/2015 Provider: Diagnosis: 2 tablets daily Last Documented On 6 10:20AM By WILMRE REDDY LPN ; [facility] Atorvastatin Calcium 10 MG OR TABS 08/02/2012 - 2012 Provider: Diagnosis: Last Documented On 3 2:34PM By TERRI BERNARD ; [facility] Metoprolol Tartrate 25 MG OR TABS 08/02/2012 - 016 Provider: Diagnosis: take one-half tablet 2 times a day Last Documented On 6 10:27AM By WILMER REDDY LPN ; [facility] Diclofenac Sodium 75 MG OR TBEC 08/02/2012 - 3 Provider: Diagnosis: take one tablet twice a day Last Documented On 3 3:45PM By TERRI CASH ; [facility] Furosemide 20 MG OR TABS 08/02/2012 - 02/09/2014 Provi itz: Diagnosis: take 1 tab once daily prn for edema Last Documented On 4 3:01PM By TERRI CASH ; [facility] Medications Administered Includes: Administered Medications in patient's chart No Administered Medications Recorded Results Includes: Results from 09/04/2023 through 09/04/2024 No Results Recorded For Specified Dates History of Present Illness History of Present Illness not supported for this document type No History of Present Illness Recorded Social History Description Last Updated Current nonsmoker 12/20/2020 Last Documented On 1 1:57PM ; [facility] Non-smoker 04/21/2020 Last Documented On 0 8:09AM ; [facility] Daily coffee consumption -- no coffee, 2 glasses of unsweetened tea daily 08/21/2019 Last Documented On 0 2:23AM ; [facility] No tobacco use 06/12/2018 Last Documented On 8 6:20AM ; [facility] She was born in [place], [place]. She was raised in [place], [place] and [place], [place]. She was close to her parents while growing up and they were supportive of her. 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 She denied any history of verbal,physical or sexual abuse 01/16/2017 Last Documented On 7 11:36AM ; [facility] Marital history -- 01/16/2017 Last Documented On 7 11:36AM ; [facility] Work history pt used to work as a [employer], but has been disabled since 2005 due to memory problems 11/08/2012 Last Documented On 3 4:16PM ; [facility] Not using alcohol 08/02/2012 Last Documented On 2 11:23AM ; [facility] Not using drugs (Illicit) 08/02/2012 Last Documented On 2 11:23AM ; [facility] Smoking status : Never smoked 08/02/2012 Last Documented On 2 11:23AM ; [facility] Procedures and Surgical History Surgical History Last Updated 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 04/201811/28/2018 Last Documented On 9 3:48AM ; [facility] History of hallux valgus (bunion) correc tion -- 08/01/17 09/07/2017 Last Documented On 8 7:38AM ; [facility] History of excision left foot bunion-- 2 012 01/28/2015 Last Documented On 5 10:16PM ; [facility] History of tubal ligation 01/28/2015 Last Documented On 5 10:16PM ; [facility] History of hysterectomy 01/28/2015 Last Documented On 5 10:16PM ; [facility] History of cholecystectomy 08/02/2012 Last Documented On 2 11:23AM ; [facility] Medical History Includes: Medical History in patient's chart Description Last Updated History of bronchitis - give n Albuterol HFA 90 mcg and Tessalon Perles 100 mg 09/03/22 10/17/2022 Last Documented On 3 1:02AM ; [facility] History of fracture of the n juan f bones - given Hydrocodone from injuries sustained from fall at her son's [employer] business 08/28/22 10/17/2022 Last Documented On 3 1:02AM ; [facility] History of fall risk -- pt has had 3 falls [...] going down while she was at the [employer]; she had a nosebleed and a sore right knee; she did not go to the Dr. or ER ~-- #11 -- patient missed step at the [employer] and fractured her nose; she wore a splint 10/17/2022 Last Documented On 3 1:02AM ; [facility] History of obstructive sleep apnea -- sleep study done 05/22/13 at [facility] under Dr. Cutler. She was wearing a dental device purchased from [facility]. Patient wears her dental device. She is getting it refitted 10/2022. She uses O2 at 2 liter as needed 10/17/2022 Last Documented On 3 1:02AM ; [facility] Primary Care Provider: Dr. Angela Carrizales ~Dr. Sierra Mcgarry -- Injection Wax Molder ~Dr. Naveed aLla, DPM -- Armored Car Messenger ~Dr. Wolf Mitchell -- Ammonia Box Operator ~Dr. Keanu Mitchell, DMD -- Dentist ~Dr. Joshua Hanson, OD -- Textile Mach[employer] Sales Representative 07/17/2022 Last Documented On 2 12:56PM ; [facility] History of hammer toe - 2nd toe of left foot straightened by Dr. Hiro Arthur 11/05/20 -- given Keflex 500 mg 04/05/2022 Last Documented On 2 12:54PM ; [facility] History of coronavirus 2019- nCoV vaccine - Pfizer #1 11/02/20 #2 03/23/21 -- as of 07/29/21 no booster yet 07/29/2021 Last Documented On 2 8:23AM ; [facility] History of vaginal candidiasis - given F lagyl 500 mg 11/06/20 12/20/2020 Last Documented On 1 1:57PM ; [facility] History of colonoscopy - 11/202012/21/19 21 Last Documented On 1 1:57PM ; [facility] History of hearing loss - wears bilatera l hearing aids 04/10/2019 Last Documented On 9 11:01PM ; [facility] History of iron deficiency - started on Ferrous Sulfate 325 mg [address] Goldie Kidd in 01/201904/10/2019 Last Documented On 9 11:01PM ; [facility] History of head injury /brain trauma Last Documented On 8 9:42PM ; [facility] History of sprain of the left foot 01/03 Last Documented On 8 9:42PM ; [facility] History of tinea pedis 08/01/2016 Last Documented On 6 3:13PM ; [facility] History of Epidural Steroid Injection -- 03/08/[address] Yi for back pain 03/13/2016 Last Documented On 6 7:20AM ; [facility] History of irritable bowel syndrome 01/13 Last Documented On 4 9:33PM ; [facility] History of esophageal reflux 08/02/2012 Last Documented On 2 11:23AM ; [facility] History of hypothyroidism 08/02/2012 Last Documented On 2 11:23AM ; [facility] History of hyperlipidemia 08/02/2012 Last Documented On 2 11:23AM ; [facility] History of hypertension 08/02/2012 Last Documented On 2 11:23AM ; [facility] Family History Includes: Family History in patient's chart Description Last Updated Paternal history of depression -- father 10/15/2014 Last Documented On 5 6:55AM ; [facility] Maternal history of depression -- mother 10/15/2014 Last Documented On 5 6:55AM ; [facility] Sororal history of depression -- sister 10/15/2014 Last Documented On 5 6:55AM ; [facility] Maternal history of anxiety disorder NOS -- mother 10/15/2014 Last Documented On 5 6:55AM ; [facility] Paternal history of anxiety disorder NOS -- father 10/15/2014 Last Documented On 5 6:55AM ; [facility] Review of Systems Review of Systems not supported for this document type No Review of Systems Recorded Mental Status Description Mini-mental status was perfo rmed 30 Was able to copy a design Oriented correctly to year Oriented correctly to season Oriented correctly to date Oriented correctly to day Oriented correctly to month Oriented correctly to state Oriented correctly to county Oriented correctly to town Oriented correctly to buildi ng Oriented correctly to floor Normal recent memory [...] a 3-stage command Depressive disorder Functional Status No Functional Status Recorded Physical Exam Physical Exam not supported for this document type No Physical Exam Recorded Allergies Includes: Active, inactive, and resolved Allergies Substance Type Reaction Onset Date Resolved Date Statu s Sulfa Antibiotics Allergy 08/02/2012 R esolved Last Documented On 9 1:33PM ; [facility] Sulfa Antibiotics Allergy 08/02/2012 A ctive Last Documented On 4 11:08AM ; [facility] Note: Imported from external source. Neupro Allergy rash 10/23/2013 Active Last Documented On 4 11:08AM ; [facility] Note: Imported from external source. Insurance Includes: Active Insurance Policies Plan Name Member ID Group # Subscriber Relationship Effect kofi Dates 1 - [facility] [id number] EDITH DARBY Self 2 - [facility] [id number] INGRID DARBY 0 - Unknown Clinical Notes Includes: Signed Clinical Notes starting from 09/01/2022 No Clinical Notes Recorded
--- OUTSIDE RECORDS SUMMARY | 2024-09-04 14:25 | XMS_ITS | Clinical Summary ---
Author Organization [facility] Address [address] [place] [address] Phone Care Team Providers Care Sheet Rock Layer Name Role Phone RHIANNON DAI, EILEEN JJ [...] Active Last Documented On 3 5:51PM ; [facility] Adult Attention Deficit Hyperactivity Disorder 01/16/2017 Active Last Documented On 3 5:50PM ; [facility] Psychophysiological Insomnia 09/27/2016 Active Last Documented On 3 5:50PM ; [facility] Bipolar I Disorder 03/13/2015 Active Last Documented On 3 5:48PM ; [facility] Dementia 02/10/2015 Active Last Documented On 3 5:48PM ; [facility] Generalized Anxiety Disorder 02/10/2015 Active Last Documented On 3 5:48PM ; [facility] Mild Cognitive Impairment 02/10/2015 EILEEN VINCENT MD Active Last Documented On 3 5:01PM ; [facility] Restless Legs Syndrome 07/28/2013 Ac tive Last Documented On 3 5:48PM ; [facility] Restless Legs Syndrome 07/28/2013 In active Last Documented On 3 5:46PM ; [facility] 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 EILEEN DE LA VEGA MD Active Last Documented On 3 5:01PM ; [facility] Past Visits Onset Date Resolved Date Provider Condition Status Hypothyroidism, unspecified 08/02/2012 Active Last Documented On 3 5:48PM ; [facility] Gastro-esophageal reflux disease without esophagitis 08/02 Active Last Documented On 3 5:48PM ; [facility] Fracture of Nasal Bones 08/02/2012 A ctive Last Documented On 3 5:42PM ; [facility] Hyperlipidemia, unspecified 08/02/2012 Active Last Documented On 3 5:48PM ; [facility] Essential (primary) hypertension 08/02/2012 Active Last Documented On 3 5:48PM ; [facility] Irritable bowel syndrome without diarrhea 08/02/2012 Active Last Documented On 3 5:48PM ; [facility] Plan of Treatment Bipolar Depression - Lamictal [...] - Last Documented On 12/24/2023 4:37AM ; [facility] Future Appointments Date Time Location Provi itz TELEHEALTH ADULT PSYCH ESTABLISHED 12/24/2024 11:00AM [facility]LINDSAY VINCENT MD Last Documented On 5 4:04PM ; [facility] Education and Decision Aids were provided during visit for: Patient counseling I discuss ed risk, benefits, and side effects of sleep aid - Belsomra - including the possibility of sleep related behaviors i.e. sleepwalking, sleeptalking, sleepdriving, etc... Pt verbalized understanding Last Documented On 4 11:46AM ; [facility] I recommended cognitive exer cises such as reading and/or word search puzzles, etc.. Last Documented On 4 11:46AM ; [facility] Calming techniques such as b reathing exercises/meditation and other relaxation techniques Last Documented On 4 4:34AM ; [facility] Assessments Includes: Assessments from this encounter Findings - Nonorganic sleep apnea - Last Documented On 12/24/2023 4:37AM ; [facility] - Dementia - Last Documented On 12/24/2023 4:37AM ; [facility] - Mild Cognitive Impairment - Last Documented On 12/24/2023 4:37AM ; [facility] - Restless legs syndrome - Last Documented On 12/24/2023 4:37AM ; [facility] - Bipolar I disorder - Last Documented On 12/24/2023 4:37AM ; [facility] - Depressive disorder - Last Documented On 12/24/2023 4:37AM ; [facility] - Psychophysiological insomnia - Last Documented On 12/24/2023 4:37AM ; [facility] - Generalized anxiety disorder - Last Documented On 12/24/2023 4:37AM ; [facility] - Adult attention deficit hyperactivity disorder - Last Documented On 12/24/2023 4:37AM ; [facility] Instructions Includes: Instructions from this encounter Education and Decision Aids were provided during visit for: Patient counseling I discuss ed risk, benefits, and side effects of sleep aid - Belsomra - including the possibility of sleep related behaviors i.e. sleepwalking, sleeptalking, sleepdriving, etc... Pt verbalized understanding Last Documented On 4 11:46AM ; [facility] I recommended cognitive exer cises such as reading and/or word search puzzles, etc.. Last Documented On 4 11:46AM ; [facility] Calming techniques such as b reathing exercises/meditation and other relaxation techniques Last Documented On 4 4:34AM ; [facility] Medical Equipment - Implanted Devices Includes: Current Devices No Medical Equipment Recorded Medications Includes: Medications discussed during this encounter and other current Medications Discontinued / Stopped on this date EILEEN VINCENT MD on 10/18/2023 Focalin 10 MG Oral Tablet Provider: EILEEN VINCENT MD Diagnosis: Attention-defici t hyperactivity disorder, combined type Last Documented On 12/19/2023 11:48AM By Radha Vincent MD ; [facility] New / Renewed during this visit EILEEN VINCENT MD on 12/19/2023 rOPINIRole HCl 2 MG Oral Tablet Provider: EILEEN VINCENT MD 30 day supply: 30 tablet, 5 refills Diagnosis: Restless legs syndrome as directed 1 tablet at 5 pm in the evening for restless legs Pharmacy: [address] Last Documented On 12/19/2023 11:49AM By Radha Vincent MD ; [facility] Current Medications (continue as prescribed) busPIRone HCl 15 MG Oral Tablet 01/16/2024 Provider: EILEEN VINCENT MD Diagnosis: TAKE ONE TABLET BY MOUTH THREE TIMES a DAY Last Documented On 01/16/2024 10:52AM By Radha Vincent MD ; [facility] Mydayis 37.5 MG Oral Capsule Extended Release 24 Hour 01/01/2024 Provider: EILEEN VINCENT MD Diagnosis: Attention-defici t hyperactivity disorder, combined type TAKE ONE (1) CAPSULE BY MOUT H EACH MORNING Last Documented On 01/01/2024 5:57PM By Radha Vincent MD ; [facility] Memantine HCl 5 MG Oral Tablet 12/12/2023 Provider: EILEEN VINCENT MD Diagnosis: Dem in oth dis c lassd elswhr,unsp sev,w/o beh/psych/mood/anx One tablet daily Last Documented On 12/12/2023 4:50PM By Radha Vincent MD ; [facility] rOPINIRole HCl 2 MG Oral Tablet 12/10/2023 Provider: VENTURA GERARDO Diagnosis: Last Documented On 12/19/2023 11:45AM By Radha Vincent MD ; [facility] Namzaric 28-10 MG Oral Capsule Extended Release 24 Hour 11/26/2023 Provider: EILEEN VINCENT MD Diagnosis: Dem in oth dis c lassd elswhr,unsp sev,w/o beh/psych/mood/anx TAKE ONE CAPSULE BY MOUTH EV HELLEN MORNING Last Documented On 11/26/2023 1:10PM By Radha Vincent MD ; [facility] Trintellix 10 MG Oral Tablet 11/13/2023 Provider: EILEEN VINCENT MD Diagnosis: Major depressive disorder, single episode, unspecified TAKE ONE (1) TABLET BY MOUTH DAILY Last Documented On 11/13/2023 10:08AM By Radha Vincent MD ; [facility] Belsomra 10 MG Oral Tablet 11/01/2023 Provider: EILEEN VINCENT MD Diagnosis: Psychophysiologi c insomnia DIRECTED 1 TABLET AT BEDT ELEAZAR NEEDED FOR SLEEP Last Documented On 11/01/2023 4:16PM By Radha Vincent MD ; [facility] buPROPion HCl ER (XL) 300 MG Oral Tablet Extended Release 24 Hour 08/24/2023 Provider: EILEEN VINCENT MD Diagnosis: Major depressive disorder, single episode, unspecified 1 tablet every morning Last Documented On 08/24/2023 10:15AM By Radha Vincent MD ; [facility] lamoTRIgine 150 MG Oral Tablet 08/24/2023 Provider: EILEEN VINCENT MD Diagnosis: TAKE ONE TABLET BY MOUTH TWO TIMES A DAY Last Documented On 08/24/2023 10:26AM By Radha Vincent MD ; [facility] Escitalopram Oxalate 20 MG Oral Tablet 08/24/2023 Provider: EILEEN VINCENT MD Diagnosis: Generalized anxi ety disorder TAKE ONE TABLET BY MOUTH DAILY Last Documented On 08/24/2023 10:16AM By Radha Vincent MD ; [facility] Ferrous Sulfate 325 (65 Fe) MG Oral Tablet 04/18/2023 Provider: Diagnosis: 1 tab every other day Last Documented On 04/18/2023 10:30AM By WISAM CASH ; [facility] Belsomra 10 MG Oral Tablet 03/19/2023 Provider: Diagnosis: Psychophysiologi c insomnia 1 tablet at bedtime as needed for sleep Last Documented On 03/19/2023 2:13PM By LETI WILSON ; [facility] Belsomra 10 MG OR TABS 09/27/2022 Provider: CISCO VINCENT MD Diagnosis: Psychophysiologi c insomnia DIRECTED - ONE (1) TAB AT BEDTIME NEEDED FOR SLEEP Last Documented On 12/09/2022 5:29PM By Radha Vincent MD ; [facility] Alendronate Sodium 70 MG OR TABS 06/19/2022 Provider : Diagnosis: 1 tab weekly Last Documented On 12/09/2022 5:29PM By WISAM CASH ; [facility] Levothyroxine Sodium 100 MCG OR CAPS 04/14/2020 Prov ider: Diagnosis: 1 tab daily Last Documented On 12/09/2022 5:29PM By WISAM CASH ; [facility] Pantoprazole Sodium 40 MG OR TBEC 11/15/2019 Provide r: Diagnosis: 1 tab daily Last Documented On 12/09/2022 5:29PM By WISAM CASH ; [facility] Azelastine HCl 0.15% NA SOLN 08/21/2019 Provider: Diagnosis: 2 sprays in each nostril twice a day Last Documented On 12/09/2022 5:29PM By WISAM CASH ; [facility] Fluticasone Propionate 50 MCG/ACT NA SUSP 07/25/2018 Provider: Diagnosis: 2 sprays in each nostril daily Last Documented On 12/09/2022 5:29PM By WISAM CASH ; [facility] amLODIPine Besy-Benazepril HCl 5-10 MG OR CAPS 016 Provider: Diagnosis: 1 daily Last Documented On 12/09/2022 5:29PM By WILMER REDDY LPN ; [facility] Lipitor 20 MG OR TABS 11/10/2015 Provider: Diagnosis: 1 tablet every evening Last Documented On 12/09/2022 5:29PM By WILMER REDDY LPN ; [facility] Lasix 20 MG OR TABS 11/10/2015 Provider: Diagnosis: 1 tablet every morning Last Documented On 12/09/2022 5:29PM By WILMER REDDY LPN ; [facility] Aspirin 81 MG OR TABS 11/10/2015 Provider: Diagnosis: 1 tablet daily Last Documented On 12/09/2022 5:29PM By WILMER REDDY LPN ; [facility] Past Medications on file Dicyclomine HCl 10 MG Oral Capsule 09/14/2023 - 2023 Provider: Diagnosis: 1 capsule bid Last Documented On 09/14/2023 11:16AM By WISAM CASH ; [facility] hydrOXYzine HCl 25 MG Oral Tablet 04/09/2023 - 06/08/2023 Provider: EILEEN CONNORS MD Diagnosis: 1 TAB a DAY NEEDED ONLY FOR ITCHING/ANXIETY Last Documented On 04/09/2023 12:08PM By Radha Vincent MD ; [facility] hydrOXYzine HCl 25 MG OR TABS 10/08/2020 - 11/07/2020 Provider: EILEEN VINCENT MD Diagnosis: Generalized anxi ety disorder as directed - 1 tab a day as needed for agitation/anxiety Last Documented On 12/09/2022 5:29PM By Radha Vincent MD ; [facility] LaMICtal 150 MG OR TABS 09/24/2018 - 09/27/2018 Provider: EILEEN VINCENT MD Diagnosis: Bipolar disorder , unspecified One tablet twice a day Last Documented On 12/09/2022 5:29PM By Radha Vincent MD ; [facility] Atorvastatin Calcium 20 MG OR TABS 01/28/2013 - 2012 Provider: Diagnosis: Last Documented On 12/09/2022 5:29PM By TERRI CASH ; [facility] Medications Administered Includes: Administered Medications [...] Last Documented: On 12/19/2023 11:42A M ; [facility] Results Includes: Results discussed during this encounter [...] twice. 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 She was raised in [place], [place] and [place], [place]. She was close to her parents while growing up and they were supportive of her. 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 She denied any history of verbal,physical or sexual abuse. 12/19/2023 Last Documented On 05/08/202 4 11:02AM ; [facility] Tobacco non-user - Never smoker 12/19/19 24 Last Documented On 4 4:37AM ; [facility] Smoking Status Unknown Procedures and Surgical History Includes: Procedures from this encounter Procedures Code Diagnosis Performing Provider Service Location Service Date PSYCHOTHERAPY 30 MIN W/ [place] [address] Bipolar disorder, unspecified, Generalized anxiety disorder, Attention-deficit hyperactivity disorder, other type, Restless legs syndrome EILEEN VINCENT MD [facility]PS[facility] 12/19/2023 Last Documented On 4 5:27PM ; [facility] patient counseling I discuss ed risk, benefits, and side effects of sleep aid - Belsomra - including the possibility of sleep related behaviors i.e. sleepwalking, sleeptalking, sleepdriving, etc... Pt verbalized understanding Last Documented On 4 11:46AM ; [facility] education and instructions Last Documented On 4 11:02AM ; [facility] supportive care and encourag ement--given positive reinforcement to keep patient motivated and active Last Documented On 4 11:46AM ; [facility] ~* Call [phone] and /or go t o the nearest emergency room or call me if suicidal/homicidal ideation or other serious concerns arise. ~ ~* I gave instructions to call me should there be any questions or concerns. ~ ~* Patient voiced understanding and agreed to treatment plan Last Documented On 4 11:40AM ; [facility] dangerousness assessment: no suicide risk 3085F Last Documented On 4 11:02AM ; [facility] use of tobacco assessment performed 1000F Last Documented On 4 11:02AM ; [facility] patient screened for future fall risk: documentation of any fall with injury in past year - no recent falls 1100F Last Documented On 4 11:40AM ; [facility] review of medications documented 1160F Last Documented On 4 11:02AM ; [facility] assessment of suicide risk performed - n ot suicidal Last Documented On 4 11:40AM ; [facility] screening for adult depressi on: impression and score - please see above for treatment and PHQ score Last Documented On 4 11:02AM ; [facility] standardized depression screening: posit kofi for symptoms Last Documented On 4 11:02AM ; [facility] encouragement to exercise - balanced karime l plan, low fat low carb diet Last Documented On 4 4:34AM ; [facility] I recommended cognitive exer cises such as reading and/or word search puzzles, etc.. Last Documented On 4 11:46AM ; [facility] Clinical summary provided to patient Last Documented On 4 11:02AM ; [facility] PHQ-9: total score 0 Last Documented On 4 4:34AM ; [facility] Medical History Includes: Medical History addressed during this encounter Description Last Updated Primary Care Provider: Dr. Angela Mcgarry -- Cloth Examiner Machine Dr. Naveed Lala, DPM -- Patient Consumer Marketer Dr. Kirti Springer -- Kitchen Bath Designer Dr. Keanu Mitchell, DMD -- Dentist Dr. [...] apnea -- sleep study done 05/22/13 at [facility] under Dr. Cutler. She was wearing a dental device purchased from [facility] dentistry. Patient does not wear her dental [...] injuries sustained from fall at her son's [employer] business 08/28/22Sprain of the left footHammer toe [...] bruisingProcedural: ? ? Coronavirus 2019-nCoV vaccine - Bushido #1 11/02/20 #2 03/23/21 -- as of [...] 12/19/2023 Last Documented On 4 11:48AM ; [facility] Family History Includes: Family History addressed during this encounter Description Last Updated Paternal: Depression -- fath er Anxiety disorder NOS -- fatherMaternal: Depression -- mother Anxiety disorder NOS -- motherSororal: Depression -- sister 12/19/2023 Last Documented On 4 11:02AM ; [facility] Review of Systems Includes: Review [...] esolved Last Documented On 9 1:33PM ; [facility] MHS Sulfa Antibiotics Allergy 08/02/2012 A ctive Last Documented On 4 11:08AM ; [facility] Note: Imported from external source. Neupro Allergy rash 10/23/2013 Active Last Documented On 4 11:08AM ; [facility] Note: Imported from external source. Encounters Encounter Provider Location Date Check-In Time Check-Out Time Diagnosis TELEHEALTH ADULT PSYCH ESTABLISHED EILEEN VINCENT MD [facility]PS[facility] 024 11:02AM 11:59PM Generalized Anxiety Disorder,Nonorga deonte Sleep Apnea,Restless Legs Syndrome,Dementi a,Psychophysiolo gical Insomnia,Bipolar I Disorder,Adult Attention Deficit Hyperactivity Disorder,Mild Cognitive Impairment,Depre ssive Disorder, Nos Insurance Includes: Active Insurance Policies Plan Name Member ID Group # Subscriber Relationship Effect kofi Dates 1 - [employer] [place] [id number] EDITH Miller MEHNAZ Self 2 - [facility] [id number] MEHNAZ, INGRID J 0 - Unknown Clinical Notes Includes: Clinical Notes from this encounter * Progress note Date Encounter Last Documented by 12/19/2023 TELEHEALTH ADULT PSYCH ESTABLISH ED Last documented on 12/24/2023; 4:37 AM, EILEEN VINCENT MD; [facility] Top of Document Medication psychotherapy 30 minutes [...] twice. I recommended that she sees her gwot ia/ilo intelligence support because of her IBS and the diarrhea [...] Primary Care Provider: Dr. Emmett Mcgarry -- Cloth Examiner Machine Dr. Naveed Lala DPM -- Patient Consumer Marketer Dr. Kirti Springer -- Kitchen Bath Designer Dr. Keanu Mitchell, DMD -- Dentist Dr. Joshua Hanson, OD -- Visual Basic Programmer Diagnoses: Area of concern on right breast 12/2023 Hearing loss - wears bilateral hearing aids. Systemic hypertension. Bronchitis - given Zpak 250 mg and Albuterol HFA 90 mcg inhaler on 02/23/22 and given Methylprednisolone Dosepak 4 mg on 02/18/22 Bronchitis - given Albuterol HFA 90 mcg and Tessalon Perles 100 mg 09/03/22 Obstructive sleep apnea -- sleep study done 05/22/13 at [facility] under Dr. Cutler. She was wearing a dental device purchased from [facility] dentistry. Patient does not wear her dental [...] injuries sustained from fall at her son's [employer] 08/28/22 Sprain of the left foot Hammer [...] PREVIOUS PSYCHIATRIC HOSPITALIZATION: She was hospitalized at [facility] in 2008 due to depression; she said that she was suicidal then. She was also hospitalized at [place] at least twice from [id number]. She said again she could not remember the dates. PREVIOUS PSYCHIATRIC TREATMENT: She was under the care of Dr. Arciniega in [place]. 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 Marital: Marital history --. She was born in [place], [place]. She was raised in [place], [place] and [place], [place]. She was close to her parents while growing up and they were supportive of her. 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 She denied [...] Clinical summary provided to patient. * Call [phone] and /or go to the nearest emergency [...]
--- OUTSIDE RECORDS SUMMARY | 2024-09-04 14:25 | XMS_ITS | Clinical Summary ---
Author Organization [facility] [[email or web address]] Address [address] [place] [address] Phone Care Team Providers Care Fast Food Delivery Driver Name Role Phone RHIANNON DAI, EILEEN JJ Unavailable [phone] Reason for Visit and Chief Complaint * PHONE CALL Problems Includes: Problems addressed during this encounter and other active Problems Current Visit Onset Date Resolved Date Provider Conditio n Status Adult Attention Deficit Hyperactivity Disorder 01/16/2017 Active Last Documented On 3 5:50PM ; [facility] Past Visits Onset Date Resolved Date Provider Condition Status Depressive Disorder, Nos 04/13/2018 Active Last Documented On 3 5:51PM ; [facility] Psychophysiological Insomnia 09/27/2016 Active Last Documented On 3 5:50PM ; [facility] Bipolar I Disorder 03/13/2015 Active Last Documented On 3 5:48PM ; [facility] Dementia 02/10/2015 Active Last Documented On 3 5:48PM ; [facility] Generalized Anxiety Disorder 02/10/2015 Active Last Documented On 3 5:48PM ; [facility] Mild Cognitive Impairment 02/10/2015 EILEEN VINCENT MD Active Last Documented On 3 5:01PM ; [facility] Restless Legs Syndrome 07/28/2013 Ac tive Last Documented On 3 5:48PM ; [facility] 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 EILEEN DE LA VEGA MD Active Last Documented On 3 5:01PM ; [facility] Hypothyroidism, unspecified 08/02/2012 Active Last Documented On 3 5:48PM ; [facility] Gastro-esophageal reflux disease without esophagitis 08/02 Active Last Documented On 3 5:48PM ; [facility] Fracture of Nasal Bones 08/02/2012 A ctive Last Documented On 3 5:42PM ; [facility] [[email or web address]] Hyperlipidemia, unspecified 08/02/2012 Active Last Documented On 3 5:48PM ; [facility] Essential (primary) hypertension 08/02/2012 Active Last Documented On 3 5:48PM ; [facility] Irritable bowel syndrome without diarrhea 08/02/2012 Active Last Documented On 3 5:48PM ; [facility] Plan of Treatment Future Appointments Date [facility] 12/24/2024 11:00AM [facility] VINCENT MD Last Documented On 5 4:04PM ; [facility] Assessments Includes: Assessments from this encounter Findings - Adult attention deficit hyperactivity disorder - Last Documented On 10/31/2023 11:49AM ; [facility] Medical Equipment - Implanted Devices [...] 10/31/2023 11:48AM By Radha Vincent MD ; [facility] New / Renewed during this visit EILEEN VINCENT MD on 10/31/2023 Mydayis 37.5 MG Oral Capsule Extended Release 24 Hour Provider: EILEEN VINCENT MD 30 day supply: 30 capsule, 0 refills Diagnosis: Attention-deficit hyperactivity disorder, combined type TAKE ONE (1) CAPSULE BY MOUT H EACH MORNING Pharmacy: [facility], [address] - Last Documented On 11/27/2023 5:06PM By Radha Vincent MD ; [facility] Current Medications (continue as prescribed) busPIRone HCl 15 MG Oral Tablet 01/16/2024 Provider: EILEEN VINCENT MD Diagnosis: TAKE ONE TABLET BY MOUTH THREE TIMES a DAY Last Documented On 01/16/2024 10:52AM By Radha Vincent MD ; [facility] Mydayis 37.5 MG Oral Capsule Extended Release 24 Hour 01/01/2024 Provider: EILEEN VINCENT MD Diagnosis: Attention-defici t hyperactivity disorder, combined type TAKE ONE (1) CAPSULE BY MOUT H EACH MORNING Last Documented On 01/01/2024 5:57PM By Radha Vincent MD ; [facility] rOPINIRole HCl 2 MG Oral Tablet 12/19/2023 Provider: EILEEN VINCENT MD Diagnosis: Restless legs sy ndrome as directed 1 tablet at 5 pm in the evening for restless legs Last Documented On 12/19/2023 11:49AM By Radha Vincent MD ; [facility] Memantine HCl 5 MG Oral Tablet 12/12/2023 Provider: EILEEN VINCENT MD Diagnosis: Dem in oth dis c lassd elswhr,unsp sev,w/o beh/psych/mood/anx One tablet daily Last Documented On 12/12/2023 4:50PM By Radha Vincent MD ; [facility] rOPINIRole HCl 2 MG Oral Tablet 12/10/2023 Provider: VENTURA GERARDO Diagnosis: Last Documented On 12/19/2023 11:45AM By Radha Vincent MD ; [facility] Namzaric 28-10 MG Oral Capsule Extended Release 24 Hour 11/26/2023 Provider: EILEEN VINCENT MD Diagnosis: Dem in oth dis c lassd elswhr,unsp sev,w/o beh/psych/mood/anx TAKE ONE CAPSULE BY MOUTH EV HELLEN MORNING Last Documented On 11/26/2023 1:10PM By Radha Vincent MD ; [facility] Trintellix 10 MG Oral Tablet 11/13/2023 Provider: EILEEN VINCENT MD Diagnosis: Major depressive disorder, single episode, unspecified TAKE ONE (1) TABLET BY MOUTH DAILY Last Documented On 11/13/2023 10:08AM By Radha Vincent MD ; [facility] Belsomra 10 MG Oral Tablet 11/01/2023 Provider: EILEEN VINCENT MD Diagnosis: Psychophysiologi c insomnia DIRECTED 1 TABLET AT BEDT ELEAZAR NEEDED FOR SLEEP Last Documented On 11/01/2023 4:16PM By Radha Vincent MD ; [facility] buPROPion HCl ER (XL) 300 MG Oral Tablet Extended Release 24 Hour 08/24/2023 Provider: EILEEN VINCENT MD Diagnosis: Major depressive disorder, single episode, unspecified 1 tablet every morning Last Documented On 08/24/2023 10:15AM By Radha Vincent MD ; [facility] lamoTRIgine 150 MG Oral Tablet 08/24/2023 Provider: EILEEN VINCENT MD Diagnosis: TAKE ONE TABLET BY MOUTH TWO TIMES A DAY Last Documented On 08/24/2023 10:26AM By Radha Vincent MD ; [facility] Escitalopram Oxalate 20 MG Oral Tablet 08/24/2023 Provider: EILEEN VINCENT MD Diagnosis: Generalized anxi ety disorder TAKE ONE TABLET BY MOUTH DAILY Last Documented On 08/24/2023 10:16AM By Radha Vincent MD ; [facility] Ferrous Sulfate 325 (65 Fe) MG Oral Tablet 04/18/2023 Provider: Diagnosis: 1 tab every other day Last Documented On 04/18/2023 10:30AM By WISAM CASH ; [facility] Belsomra 10 MG Oral Tablet 03/19/2023 Provider: Diagnosis: Psychophysiologi c insomnia 1 tablet at bedtime as needed for sleep Last Documented On 03/19/2023 2:13PM By LETI WILSON ; [facility] Belsomra 10 MG OR TABS 09/27/2022 Provider: CISCO VINCENT MD Diagnosis: Psychophysiologi c insomnia DIRECTED - ONE (1) TAB AT BEDTIME NEEDED FOR SLEEP Last Documented On 12/09/2022 5:29PM By Radha Vincent MD ; [facility] Alendronate Sodium 70 MG OR TABS 06/19/2022 Provider : Diagnosis: 1 tab weekly Last Documented On 12/09/2022 5:29PM By WISAM CASH ; [facility] Levothyroxine Sodium 100 MCG OR CAPS 04/14/2020 Prov ider: Diagnosis: 1 tab daily Last Documented On 12/09/2022 5:29PM By WISAM CASH ; [facility] Pantoprazole Sodium 40 MG OR TBEC 11/15/2019 Provide r: Diagnosis: 1 tab daily Last Documented On 12/09/2022 5:29PM By WISAM CASH ; [facility] Azelastine HCl 0.15% NA SOLN 08/21/2019 Provider: Diagnosis: 2 sprays in each nostril twice a day Last Documented On 12/09/2022 5:29PM By WISAM CASH ; [facility] Fluticasone Propionate 50 MCG/ACT NA SUSP 07/25/2018 Provider: Diagnosis: 2 sprays in each nostril daily Last Documented On 12/09/2022 5:29PM By WISAM CASH ; [facility] amLODIPine Besy-Benazepril HCl 5-10 MG OR CAPS 016 Provider: Diagnosis: 1 daily Last Documented On 12/09/2022 5:29PM By WILMER REDDY LPN ; [facility] Lipitor 20 MG OR TABS 11/10/2015 Provider: Diagnosis: 1 tablet every evening Last Documented On 12/09/2022 5:29PM By WILMER REDDY LPN ; [facility] Lasix 20 MG OR TABS 11/10/2015 Provider: Diagnosis: 1 tablet every morning Last Documented On 12/09/2022 5:29PM By WILMER REDDY LPN ; [facility] Aspirin 81 MG OR TABS 11/10/2015 Provider: Diagnosis: 1 tablet daily Last Documented On 12/09/2022 5:29PM By WILMER REDDY LPN ; [facility] Past Medications on file Dicyclomine HCl 10 MG Oral Capsule 09/14/2023 - 2023 Provider: Diagnosis: 1 capsule bid Last Documented On 09/14/2023 11:16AM By WISAM CASH ; [facility] hydrOXYzine HCl 25 MG Oral Tablet 04/09/2023 - 06/08/2023 Provider: EILEEN CONNORS MD Diagnosis: 1 TAB a DAY NEEDED ONLY FOR ITCHING/ANXIETY Last Documented On 04/09/2023 12:08PM By Radha Vincent MD ; [facility] hydrOXYzine HCl 25 MG OR TABS 10/08/2020 - 11/07/2020 Provider: EILEEN VINCENT MD Diagnosis: Generalized anxi ety disorder as directed - 1 tab a day as needed for agitation/anxiety Last Documented On 12/09/2022 5:29PM By Radha Vincent MD ; [facility] [[email or web address]] LaMICtal 150 MG OR TABS 09/24/2018 - 09/27/2018 Provider: EILEEN VINCENT MD Diagnosis: Bipolar disorder , unspecified One tablet twice a day Last Documented On 12/09/2022 5:29PM By Radha Vincent MD ; [facility] [[email or web address]] Atorvastatin Calcium 20 MG OR TABS 01/28/2013 - 2012 Provider: Diagnosis: Last Documented On 12/09/2022 5:29PM By TERRI CASH ; [facility] Medications Administered Includes: Administered Medications [...] esolved Last Documented On 9 1:33PM ; [facility] Sulfa Antibiotics Allergy 08/02/2012 A ctive Last Documented On 4 11:08AM ; [facility] Note: Imported from external source. Neupro Allergy rash 10/23/2013 Active Last Documented On 4 11:08AM ; [facility] [[email or web address]] Note: Imported from external source. Encounters Encounter Provider Location Date Check-In Time Check-Out Time Diagnosis * PHONE CALL EILEEN VINCENT MD [facility] [[email or web address]PSY 10/31/19 24 11:43AM 11:59PM Adult Attention Deficit Hyperactivity Disorder Insurance Includes: Active Insurance Policies Plan Name Member ID Group # Subscriber Relationship Effect kofi Dates 1 - [employer] [id number] EDITH DARBY Self 2 - [facility] [id number] INGRID DARBY 0 - Unknown Clinical Notes Includes: Clinical Notes from this encounter * Progress note Date Encounter Last Documented by 10/31/2023 * PHONE CALL Last documented on 10/31/2023; 11:49 AM, EILEEN VINCENT MD; [facility] Active Problems [...] refill of Mydayis to be sent to [facility]. pt phone # for return call: [phone] date/initials: 10/31/2023 bk Current Medication - Alendronate [...] PREVIOUS PSYCHIATRIC HOSPITALIZATION: She was hospitalized at [facility] in 2008 due to depression; she said that she was suicidal then. She was also hospitalized at [place] at least twice from [id number]. She said again she could not remember the dates. PREVIOUS PSYCHIATRIC TREATMENT: She was under the care of Dr. Arciniega in [place]. PREVIOUS PSYCHIATRIC MEDICATIONS: Lexapro 20mg once a [...]
--- OUTSIDE RECORDS SUMMARY | 2024-09-04 14:25 | XMS_ITS ---
Care Plan - [facility] Created on: September 04, 2024 EDITH DARBY : 1950 Sex: Female Author Organization [facility] Address [address] [place] [address] Phone Care Team Providers Care Mill Laborer Name Role Phone RHIANNON DAI, EILEEN JJ Unavailable [phone]
--- OUTSIDE RECORDS SUMMARY | 2024-09-04 14:25 | XMS_ITS | CONTINUITY OF CARE DOCUMENT ---
Author Name shi osullivan Address Unknown Organization [facility] Address [id number] [place] [address] [address] [place] [address] Phone [phone] Care Team Providers Care Bell Spinner Sousaphones Name Role Phone shi osullivan Unavailable Unavailable
--- OUTSIDE RECORDS SUMMARY | 2024-09-04 14:25 | XMS_ITS | Clinical Summary ---
Author Organization [facility] Address [address] [place] [address] Phone Care Team Providers Care Projection Engineer Name Role Phone RHIANNON DAI, EILEEN JJ Unavailable [phone] Reason for Visit and Chief Complaint * PHONE CALL Problems Includes: Problems addressed during this encounter and other active Problems All Visits Onset Date Resolved Date Provider Condition S tatus Depressive Disorder, Nos 04/13/2018 Active Last Documented On 3 5:51PM ; [facility] Adult Attention Deficit Hyperactivity Disorder 01/16/2017 Active Last Documented On 3 5:50PM ; [facility] Psychophysiological Insomnia 09/27/2016 Active Last Documented On 3 5:50PM ; [facility] Bipolar I Disorder 03/13/2015 Active Last Documented On 3 5:48PM ; [facility] Dementia 02/10/2015 Active Last Documented On 3 5:48PM ; [facility] Generalized Anxiety Disorder 02/10/2015 Active Last Documented On 3 5:48PM ; [facility] Mild Cognitive Impairment 02/10/2015 EILEEN VINCENT MD Active Last Documented On 3 5:01PM ; [facility] Restless Legs Syndrome 07/28/2013 Ac tive Last Documented On 3 5:48PM ; [facility] 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 EILEEN DE LA VEGA MD Active Last Documented On 3 5:01PM ; [facility] Hypothyroidism, unspecified 08/02/2012 Active Last Documented On 3 5:48PM ; [facility] Gastro-esophageal reflux disease without esophagitis 08/02 Active Last Documented On 3 5:48PM ; [facility] Fracture of Nasal Bones 08/02/2012 A ctive Last Documented On 3 5:42PM ; [facility] Hyperlipidemia, unspecified 08/02/2012 Active Last Documented On 3 5:48PM ; [facility] Essential (primary) hypertension 08/02/2012 Active Last Documented On 3 5:48PM ; [facility] Irritable bowel syndrome without diarrhea 08/02/2012 Active Last Documented On 3 5:48PM ; [facility] Plan of Treatment Future Appointments Date Time Location Provi itz TELEHEALTH ADULT PSYCH ESTABLISHED 12/24/2024 11:00AM [facility] VINCENT MD Last Documented On 5 4:04PM ; [facility] Assessments Includes: Assessments from this [...] combined type 1 tablet every morning Pharmacy: [address] [address] - Last Documented On 12/19/2023 11:48AM By Radha Vincent MD ; [facility] Current Medications (continue as prescribed) busPIRone HCl 15 MG Oral Tablet 01/16/2024 Provider: EILEEN VINCENT MD Diagnosis: TAKE ONE TABLET BY MOUTH THREE TIMES a DAY Last Documented On 01/16/2024 10:52AM By Radha Vincent MD ; [facility] Mydayis 37.5 MG Oral Capsule Extended Release 24 Hour 01/01/2024 Provider: EILEEN VINCENT MD Diagnosis: Attention-defici t hyperactivity disorder, combined type TAKE ONE (1) CAPSULE BY MOUT H EACH MORNING Last Documented On 01/01/2024 5:57PM By Radha Vincent MD ; [facility] rOPINIRole HCl 2 MG Oral Tablet 12/19/2023 Provider: EILEEN VINCENT MD Diagnosis: Restless legs sy ndrome as directed 1 tablet at 5 pm in the evening for restless legs Last Documented On 12/19/2023 11:49AM By Radha Vincent MD ; [facility] Memantine HCl 5 MG Oral Tablet 12/12/2023 Provider: EILEEN VINCENT MD Diagnosis: Dem in oth dis c lassd elswhr,unsp sev,w/o beh/psych/mood/anx One tablet daily Last Documented On 12/12/2023 4:50PM By Radha Vincent MD ; [facility] rOPINIRole HCl 2 MG Oral Tablet 12/10/2023 Provider: VENTURA GERARDO Diagnosis: Last Documented On 12/19/2023 11:45AM By Radha Vincent MD ; [facility] Namzaric 28-10 MG Oral Capsule Extended Release 24 Hour 11/26/2023 Provider: EILEEN VINCENT MD Diagnosis: Dem in oth dis c lassd elswhr,unsp sev,w/o beh/psych/mood/anx TAKE ONE CAPSULE BY MOUTH EV HELLEN MORNING Last Documented On 11/26/2023 1:10PM By Radha Vincent MD ; [facility] Trintellix 10 MG Oral Tablet 11/13/2023 Provider: EILEEN VINCENT MD Diagnosis: Major depressive disorder, single episode, unspecified TAKE ONE (1) TABLET BY MOUTH DAILY Last Documented On 11/13/2023 10:08AM By Radha Vincent MD ; [facility] Belsomra 10 MG Oral Tablet 11/01/2023 Provider: EILEEN VINCENT MD Diagnosis: Psychophysiologi c insomnia DIRECTED 1 TABLET AT BEDT ELEAZAR NEEDED FOR SLEEP Last Documented On 11/01/2023 4:16PM By Radha Vincent MD ; [facility] buPROPion HCl ER (XL) 300 MG Oral Tablet Extended Release 24 Hour 08/24/2023 Provider: EILEEN VINCENT MD Diagnosis: Major depressive disorder, single episode, unspecified 1 tablet every morning Last Documented On 08/24/2023 10:15AM By Radha Vincent MD ; [facility] lamoTRIgine 150 MG Oral Tablet 08/24/2023 Provider: EILEEN VINCENT MD Diagnosis: TAKE ONE TABLET BY MOUTH TWO TIMES A DAY Last Documented On 08/24/2023 10:26AM By Radha Vincent MD ; [facility] Escitalopram Oxalate 20 MG Oral Tablet 08/24/2023 Provider: EILEEN VINCENT MD Diagnosis: Generalized anxi ety disorder TAKE ONE TABLET BY MOUTH DAILY Last Documented On 08/24/2023 10:16AM By Radha Vincent MD ; [facility] Ferrous Sulfate 325 (65 Fe) MG Oral Tablet 04/18/2023 Provider: Diagnosis: 1 tab every other day Last Documented On 04/18/2023 10:30AM By WISAM CASH ; [facility] Belsomra 10 MG Oral Tablet 03/19/2023 Provider: Diagnosis: Psychophysiologi c insomnia 1 tablet at bedtime as needed for sleep Last Documented On 03/19/2023 2:13PM By LETI WILSON ; [facility] Belsomra 10 MG OR TABS 09/27/2022 Provider: CISCO VINCENT MD Diagnosis: Psychophysiologi c insomnia DIRECTED - ONE (1) TAB AT BEDTIME NEEDED FOR SLEEP Last Documented On 12/09/2022 5:29PM By Radha Vincent MD ; [facility] Alendronate Sodium 70 MG OR TABS 06/19/2022 Provider : Diagnosis: 1 tab weekly Last Documented On 12/09/2022 5:29PM By WISAM CASH ; [facility] Levothyroxine Sodium 100 MCG OR CAPS 04/14/2020 Prov ider: Diagnosis: 1 tab daily Last Documented On 12/09/2022 5:29PM By WISAM CASH ; [facility] Pantoprazole Sodium 40 MG OR TBEC 11/15/2019 Provide r: Diagnosis: 1 tab daily Last Documented On 12/09/2022 5:29PM By WISAM CASH ; [facility] Azelastine HCl 0.15% NA SOLN 08/21/2019 Provider: Diagnosis: 2 sprays in each nostril twice a day Last Documented On 12/09/2022 5:29PM By WISAM CASH ; [facility] Fluticasone Propionate 50 MCG/ACT NA SUSP 07/25/2018 Provider: Diagnosis: 2 sprays in each nostril daily Last Documented On 12/09/2022 5:29PM By WISAM CASH ; [facility] amLODIPine Besy-Benazepril HCl 5-10 MG OR CAPS 016 Provider: Diagnosis: 1 daily Last Documented On 12/09/2022 5:29PM By WILMER REDDY LPN ; [facility] Lipitor 20 MG OR TABS 11/10/2015 Provider: Diagnosis: 1 tablet every evening Last Documented On 12/09/2022 5:29PM By WILMER REDDY LPN ; [facility] Lasix 20 MG OR TABS 11/10/2015 Provider: Diagnosis: 1 tablet every morning Last Documented On 12/09/2022 5:29PM By WILMER REDDY LPN ; [facility] Aspirin 81 MG OR TABS 11/10/2015 Provider: Diagnosis: 1 tablet daily Last Documented On 12/09/2022 5:29PM By WILMER REDDY LPN ; [facility] Past Medications on file Dicyclomine HCl 10 MG Oral Capsule 09/14/2023 - 2023 Provider: Diagnosis: 1 capsule bid Last Documented On 09/14/2023 11:16AM By WISAM CASH ; [facility] hydrOXYzine HCl 25 MG Oral Tablet 04/09/2023 - 06/08/2023 Provider: EILEEN CONNORS MD Diagnosis: 1 TAB a DAY NEEDED ONLY FOR ITCHING/ANXIETY Last Documented On 04/09/2023 12:08PM By Radha Vincent MD ; [facility] hydrOXYzine HCl 25 MG OR TABS 10/08/2020 - 11/07/2020 Provider: EILEEN VINCENT MD Diagnosis: Generalized anxi ety disorder as directed - 1 tab a day as needed for agitation/anxiety Last Documented On 12/09/2022 5:29PM By Radha Vincent MD ; [facility] LaMICtal 150 MG OR TABS 09/24/2018 - 09/27/2018 Provider: EILEEN VINCENT MD Diagnosis: Bipolar disorder , unspecified One tablet twice a day Last Documented On 12/09/2022 5:29PM By Radha Vincent MD ; [facility] Atorvastatin Calcium 20 MG OR TABS 01/28/2013 - 2012 Provider: Diagnosis: Last Documented On 12/09/2022 5:29PM By TERRI CASH ; [facility] Medications Administered Includes: Administered Medications [...] esolved Last Documented On 9 1:33PM ; [facility] Sulfa Antibiotics Allergy 08/02/2012 A ctive Last Documented On 4 11:08AM ; [facility] Note: Imported from external source. Neupro Allergy rash 10/23/2013 Active Last Documented On 4 11:08AM ; [facility] Note: Imported from external source. Encounters Encounter Provider Location Date Check-In Time Check-Out Time Diagnosis * PHONE CALL EILEEN VINCENT MD [facility] 4 2:36PM 11:59PM Insurance Includes: Active Insurance Policies Plan Name Member ID Group # Subscriber Relationship Effect kofi Dates 1 - [facility] [employer] [id number] LANA DARBY Self 2 - [facility] [id number] INGRID DARBY J 0 - Unknown Clinical Notes Includes: Clinical Notes from this encounter * Progress note Date Encounter Last Documented by 10/18/2023 * PHONE CALL Last documented on 10/22/2023; 8:51 AM, EILEEN VINCENT MD; [facility] Active Problems & Conditions - [...] calling. She had an appointment with Dr. Crarizales and mentioned to him that she is having a lot of diarrhea. Dr. Carrizales told her that the Namzaric could be causing the diarrhea. Lana would like to talk to Dr. Vincent about possibly stopping the Namzaric or getting something else in it's place. pt phone # for return call: [phone] date/initials: 10/18/23 bk Current Medication - Alendronate [...] PREVIOUS PSYCHIATRIC HOSPITALIZATION: She was hospitalized at [facility] in 2008 due to depression; she said that she was suicidal then. She was also hospitalized at [place] at least twice from [id number]. She said again she could not remember the dates. PREVIOUS PSYCHIATRIC TREATMENT: She was under the care of Dr. Arciniega in [place]. PREVIOUS PSYCHIATRIC MEDICATIONS: Lexapro 20mg once a [...]
--- OUTSIDE RECORDS SUMMARY | 2024-09-04 14:25 | XMS_ITS | Clinical Summary ---
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 Name Role Phone RHIANNON DAI, EILEEN JJ Unavailable [phone] Reason for Visit and Chief Complaint * PHONE CALL Problems Includes: Problems addressed during this encounter and other active Problems Current Visit Onset Date Resolved Date Provider Conditio n Status Dementia 02/10/2015 Active Last Documented On 3 5:48PM ; [facility] Past Visits Onset Date Resolved Date Provider Condition Status Depressive Disorder, Nos 04/13/2018 Active Last Documented On 3 5:51PM ; [facility] Adult Attention Deficit Hyperactivity Disorder 01/16/2017 Active Last Documented On 3 5:50PM ; [facility] Psychophysiological Insomnia 09/27/2016 Active Last Documented On 3 5:50PM ; [facility] Bipolar I Disorder 03/13/2015 Active Last Documented On 3 5:48PM ; [facility] Generalized Anxiety Disorder 02/10/2015 Active Last Documented On 3 5:48PM ; [facility] Mild Cognitive Impairment 02/10/2015 EILEEN VINCENT MD Active Last Documented On 3 5:01PM ; [facility] Restless Legs Syndrome 07/28/2013 Ac tive Last Documented On 3 5:48PM ; [facility] 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 EILEEN DE LA VEGA MD Active Last Documented On 3 5:01PM ; [facility] Hypothyroidism, unspecified 08/02/2012 Active Last Documented On 3 5:48PM ; [facility] Gastro-esophageal reflux disease without esophagitis 08/02 Active Last Documented On 3 5:48PM ; [facility] Fracture of Nasal Bones 08/02/2012 A ctive Last Documented On 3 5:42PM ; [facility] Hyperlipidemia, unspecified 08/02/2012 Active Last Documented On 3 5:48PM ; [facility] Essential (primary) hypertension 08/02/2012 Active Last Documented On 3 5:48PM ; [facility] Irritable bowel syndrome without diarrhea 08/02/2012 Active Last Documented On 3 5:48PM ; [facility] Plan of Treatment Future Appointments Date [facility] 12/24/2024 11:00AM [facility] VINCENT MD Last Documented On 5 4:04PM ; [facility] Assessments Includes: Assessments from this encounter Findings - Dementia - Last Documented On 12/12/2023 5:57PM ; [facility] Medical Equipment - Implanted Devices Includes: Current Devices No Medical Equipment Recorded Medications Includes: Medications discussed during this encounter and other current Medications New / Renewed during this visit ELIEEN VINCENT MD on 12/12/2023 Memantine HCl 5 MG Oral Tablet Provider: EILEEN VINCENT MD 30 day supply: 30 tablet, 5 refills Diagnosis: Dem in oth dis classd elswhr,unsp sev,w/o beh/psych/mood/anx One tablet daily Pharmacy: [facility] [address], [address] - Last Documented On 12/12/2023 4:50PM By Radha Vincent MD ; [facility] Current Medications (continue as prescribed) busPIRone HCl 15 MG Oral Tablet 01/16/2024 Provider: EILEEN VINCENT MD Diagnosis: TAKE ONE TABLET BY MOUTH THREE TIMES a DAY Last Documented On 01/16/2024 10:52AM By Radha Vincent MD ; [facility] Mydayis 37.5 MG Oral Capsule Extended Release 24 Hour 01/01/2024 Provider: EILEEN VINCENT MD Diagnosis: Attention-defici t hyperactivity disorder, combined type TAKE ONE (1) CAPSULE BY MOUT H EACH MORNING Last Documented On 01/01/2024 5:57PM By Radha Vincent MD ; [facility] rOPINIRole HCl 2 MG Oral Tablet 12/19/2023 Provider: EILEEN VINCENT MD Diagnosis: Restless legs sy ndrome as directed 1 tablet at 5 pm in the evening for restless legs Last Documented On 12/19/2023 11:49AM By Radha Vincent MD ; [facility] rOPINIRole HCl 2 MG Oral Tablet 12/10/2023 Provider: VENTURA GERARDO Diagnosis: Last Documented On 12/19/2023 11:45AM By Radha Vincent MD ; [facility] Namzaric 28-10 MG Oral Capsule Extended Release 24 Hour 11/26/2023 Provider: EILEEN VINCENT MD Diagnosis: Dem in oth dis c lassd elswhr,unsp sev,w/o beh/psych/mood/anx TAKE ONE CAPSULE BY MOUTH EV HELLEN MORNING Last Documented On 11/26/2023 1:10PM By Radha Vincent MD ; [facility] Trintellix 10 MG Oral Tablet 11/13/2023 Provider: EILEEN VINCENT MD Diagnosis: Major depressive disorder, single episode, unspecified TAKE ONE (1) TABLET BY MOUTH DAILY Last Documented On 11/13/2023 10:08AM By Radha Vincent MD ; [facility] Belsomra 10 MG Oral Tablet 11/01/2023 Provider: EILEEN VINCENT MD Diagnosis: Psychophysiologi c insomnia DIRECTED 1 TABLET AT BEDT ELEAZAR NEEDED FOR SLEEP Last Documented On 11/01/2023 4:16PM By Radha Vincent MD ; [facility] buPROPion HCl ER (XL) 300 MG Oral Tablet Extended Release 24 Hour 08/24/2023 Provider: EILEEN VINCENT MD Diagnosis: Major depressive disorder, single episode, unspecified 1 tablet every morning Last Documented On 08/24/2023 10:15AM By Radha Vincent MD ; [facility] lamoTRIgine 150 MG Oral Tablet 08/24/2023 Provider: EILEEN VINCENT MD Diagnosis: TAKE ONE TABLET BY MOUTH TWO TIMES A DAY Last Documented On 08/24/2023 10:26AM By Radha Vincent MD ; [facility] Escitalopram Oxalate 20 MG Oral Tablet 08/24/2023 Provider: EILEEN VINCENT MD Diagnosis: Generalized anxi ety disorder TAKE ONE TABLET BY MOUTH DAILY Last Documented On 08/24/2023 10:16AM By Radha Vincent MD ; [facility] Ferrous Sulfate 325 (65 Fe) MG Oral Tablet 04/18/2023 Provider: Diagnosis: 1 tab every other day Last Documented On 04/18/2023 10:30AM By WISAM CASH ; [facility] Belsomra 10 MG Oral Tablet 03/19/2023 Provider: Diagnosis: Psychophysiologi c insomnia 1 tablet at bedtime as needed for sleep Last Documented On 03/19/2023 2:13PM By LETI WILSON ; [facility] Belsomra 10 MG OR TABS 09/27/2022 Provider: CISCO VINCENT MD Diagnosis: Psychophysiologi c insomnia DIRECTED - ONE (1) TAB AT BEDTIME NEEDED FOR SLEEP Last Documented On 12/09/2022 5:29PM By Radha Vincent MD ; [facility] Alendronate Sodium 70 MG OR TABS 06/19/2022 Provider : Diagnosis: 1 tab weekly Last Documented On 12/09/2022 5:29PM By WISAM CASH ; [facility] Levothyroxine Sodium 100 MCG OR CAPS 04/14/2020 Prov ider: Diagnosis: 1 tab daily Last Documented On 12/09/2022 5:29PM By WISAM CASH ; [facility] Pantoprazole Sodium 40 MG OR TBEC 11/15/2019 Provide r: Diagnosis: 1 tab daily Last Documented On 12/09/2022 5:29PM By WISAM CASH ; [facility] Azelastine HCl 0.15% NA SOLN 08/21/2019 Provider: Diagnosis: 2 sprays in each nostril twice a day Last Documented On 12/09/2022 5:29PM By WISAM CASH ; [facility] Fluticasone Propionate 50 MCG/ACT NA SUSP 07/25/2018 Provider: Diagnosis: 2 sprays in each nostril daily Last Documented On 12/09/2022 5:29PM By WISAM CASH ; [facility] amLODIPine Besy-Benazepril HCl 5-10 MG OR CAPS 016 Provider: Diagnosis: 1 daily Last Documented On 12/09/2022 5:29PM By WILMER REDDY LPN ; [facility] Lipitor 20 MG OR TABS 11/10/2015 Provider: Diagnosis: 1 tablet every evening Last Documented On 12/09/2022 5:29PM By WILMER REDDY LPN ; [facility] Lasix 20 MG OR TABS 11/10/2015 Provider: Diagnosis: 1 tablet every morning Last Documented On 12/09/2022 5:29PM By WILMER REDDY LPN ; [facility] Aspirin 81 MG OR TABS 11/10/2015 Provider: Diagnosis: 1 tablet daily Last Documented On 12/09/2022 5:29PM By WILMER REDDY LPN ; [facility] Past Medications on file Dicyclomine HCl 10 MG Oral Capsule 09/14/2023 - 2023 Provider: Diagnosis: 1 capsule bid Last Documented On 09/14/2023 11:16AM By WISAM CASH ; [facility] hydrOXYzine HCl 25 MG Oral Tablet 04/09/2023 - 06/08/2023 Provider: EILEEN CONNORS MD Diagnosis: 1 TAB a DAY NEEDED ONLY FOR ITCHING/ANXIETY Last Documented On 04/09/2023 12:08PM By Radha Vincent MD ; [facility] hydrOXYzine HCl 25 MG OR TABS 10/08/2020 - 11/07/2020 Provider: EILEEN VINCENT MD Diagnosis: Generalized anxi ety disorder as directed - 1 tab a day as needed for agitation/anxiety Last Documented On 12/09/2022 5:29PM By Radha Vincent MD ; [facility] LaMICtal 150 MG OR TABS 09/24/2018 - 09/27/2018 Provider: EILEEN VINCENT MD Diagnosis: Bipolar disorder , unspecified One tablet twice a day Last Documented On 12/09/2022 5:29PM By Radha Vincent MD ; [facility] Atorvastatin Calcium 20 MG OR TABS 01/28/2013 - 2012 Provider: Diagnosis: Last Documented On 12/09/2022 5:29PM By TERRI CASH ; [facility] Medications Administered Includes: Administered Medications from this [...] esolved Last Documented On 9 1:33PM ; [facility] Sulfa Antibiotics Allergy 08/02/2012 A ctive Last Documented On 4 11:08AM ; [facility] Note: Imported from external source. Neupro Allergy rash 10/23/2013 Active Last Documented On 4 11:08AM ; [facility] Note: Imported from external source. Encounters Encounter Provider Location Date Check-In Time Check-Out Time Diagnosis * PHONE CALL EILEEN VINCENT MD [facility] 4 3:59PM 11:59PM Dementia Insurance Includes: Active Insurance Policies Plan Name Member ID Group # Subscriber Relationship Effect kofi Dates 1 - [facility] [email or web address] [place] [id number] EDITH DARBY Self 2 - [facility] [id number] INGR[address] DARBY J 0 - Unknown Clinical Notes Includes: Clinical Notes from this encounter * Progress note Date Encounter Last Documented by 12/12/2023 * PHONE CALL Last documented on 12/12/2023; 5:57 PM, EILEEN VINCENT MD; [facility] Active Problems & Conditions - Adult Attention [...] Namzaric. pt phone # for return call: [phone] date/initials: 12/12/23 bk Current Medication - Alendronate [...] PREVIOUS PSYCHIATRIC HOSPITALIZATION: She was hospitalized at [facility] in 2008 due to depression; she said that she was suicidal then. She was also hospitalized at [place] at least twice from [id number]. She said again she could not remember the dates. PREVIOUS PSYCHIATRIC TREATMENT: She was under the care of Dr. Arciniega in [place]. PREVIOUS PSYCHIATRIC MEDICATIONS: Lexapro 20mg once a [...]
--- OUTSIDE RECORDS SUMMARY | 2024-09-04 14:25 | XMS_ITS | Clinical Summary ---
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 Phone RHIANNON DAI, EILEEN JJ Unavailable [phone] Reason for Visit and Chief Complaint * PHONE CALL Problems Includes: Problems addressed during this encounter and other active Problems All Visits Onset Date Resolved Date Provider Condition S tatus Depressive Disorder, Nos 04/13/2018 Active Last Documented On 3 5:51PM ; [facility] Adult Attention Deficit Hyperactivity Disorder 01/16/2017 Active Last Documented On 3 5:50PM ; [facility] Psychophysiological Insomnia 09/27/2016 Active Last Documented On 3 5:50PM ; [facility] Bipolar I Disorder 03/13/2015 Active Last Documented On 3 5:48PM ; [facility] Dementia 02/10/2015 Active Last Documented On 3 5:48PM ; [facility] Generalized Anxiety Disorder 02/10/2015 Active Last Documented On 3 5:48PM ; [facility] Mild Cognitive Impairment 02/10/2015 EILEEN VINCENT MD Active Last Documented On 3 5:01PM ; [facility] Restless Legs Syndrome 07/28/2013 Ac tive Last Documented On 3 5:48PM ; [facility] 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 EILEEN DE LA VEGA MD Active Last Documented On 3 5:01PM ; [facility] Hypothyroidism, unspecified 08/02/2012 Active Last Documented On 3 5:48PM ; [facility] Gastro-esophageal reflux disease without esophagitis 08/02 Active Last Documented On 3 5:48PM ; [facility] Fracture of Nasal Bones 08/02/2012 A ctive Last Documented On 3 5:42PM ; [facility] Hyperlipidemia, unspecified 08/02/2012 Active Last Documented On 3 5:48PM ; [facility] Essential (primary) hypertension 08/02/2012 Active Last Documented On 3 5:48PM ; [facility] Irritable bowel syndrome without diarrhea 08/02/2012 Active Last Documented On 3 5:48PM ; [facility] Plan of Treatment Future Appointments Date Time Location [facility]LEHEALTH ADULT PSYCH ESTABLISHED 12/24/2024 11:00AM [facility] VINCENT MD Last Documented On 5 4:04PM ; [facility] Assessments Includes: Assessments from this encounter [...] 10:52AM By Radha Vincent MD ; [facility] Mydayis 37.5 MG Oral Capsule Extended Release 24 Hour 01/01/2024 Provider: EILEEN VINCENT MD Diagnosis: Attention-defici t hyperactivity disorder, combined type TAKE ONE (1) CAPSULE BY MOUT H EACH MORNING Last Documented On 01/01/2024 5:57PM By Radha Vincent MD ; [facility] rOPINIRole HCl 2 MG Oral Tablet 12/19/2023 Provider: EILEEN VINCENT MD Diagnosis: Restless legs sy ndrome as directed 1 tablet at 5 pm in the evening for restless legs Last Documented On 12/19/2023 11:49AM By Radha Vincent MD ; [facility] Memantine HCl 5 MG Oral Tablet 12/12/2023 Provider: EILEEN VINCENT MD Diagnosis: Dem in oth dis c lassd elswhr,unsp sev,w/o beh/psych/mood/anx One tablet daily Last Documented On 12/12/2023 4:50PM By Radha Vincent MD ; [facility] rOPINIRole HCl 2 MG Oral Tablet 12/10/2023 Provider: VENTURA GERARDO Diagnosis: Last Documented On 12/19/2023 11:45AM By Radha Vincent MD ; [facility] Namzaric 28-10 MG Oral Capsule Extended Release 24 Hour 11/26/2023 Provider: EILEEN VINCENT MD Diagnosis: Dem in oth dis c lassd elswhr,unsp sev,w/o beh/psych/mood/anx TAKE ONE CAPSULE BY MOUTH EV HELLEN MORNING Last Documented On 11/26/2023 1:10PM By Radha Vincent MD ; [facility] Trintellix 10 MG Oral Tablet 11/13/2023 Provider: EILEEN VINCENT MD Diagnosis: Major depressive disorder, single episode, unspecified TAKE ONE (1) TABLET BY MOUTH DAILY Last Documented On 11/13/2023 10:08AM By Radha Vincent MD ; [facility] Belsomra 10 MG Oral Tablet 11/01/2023 Provider: EILEEN VINCENT MD Diagnosis: Psychophysiologi c insomnia DIRECTED 1 TABLET AT BEDT ELEAZAR NEEDED FOR SLEEP Last Documented On 11/01/2023 4:16PM By Radha Vincent MD ; [facility] buPROPion HCl ER (XL) 300 MG Oral Tablet Extended Release 24 Hour 08/24/2023 Provider: EILEEN VINCENT MD Diagnosis: Major depressive disorder, single episode, unspecified 1 tablet every morning Last Documented On 08/24/2023 10:15AM By Radha Vincent MD ; [facility] lamoTRIgine 150 MG Oral Tablet 08/24/2023 Provider: EILEEN VINCENT MD Diagnosis: TAKE ONE TABLET BY MOUTH TWO TIMES A DAY Last Documented On 08/24/2023 10:26AM By Radha Vincent MD ; [facility] Escitalopram Oxalate 20 MG Oral Tablet 08/24/2023 Provider: EILEEN VINCENT MD Diagnosis: Generalized anxi ety disorder TAKE ONE TABLET BY MOUTH DAILY Last Documented On 08/24/2023 10:16AM By Radha Vincent MD ; [facility] Ferrous Sulfate 325 (65 Fe) MG Oral Tablet 04/18/2023 Provider: Diagnosis: 1 tab every other day Last Documented On 04/18/2023 10:30AM By WISAM CASH ; [facility] Belsomra 10 MG Oral Tablet 03/19/2023 Provider: Diagnosis: Psychophysiologi c insomnia 1 tablet at bedtime as needed for sleep Last Documented On 03/19/2023 2:13PM By LETI WILSON ; [facility] Belsomra 10 MG OR TABS 09/27/2022 Provider: CISCO VINCENT MD Diagnosis: Psychophysiologi c insomnia DIRECTED - ONE (1) TAB AT BEDTIME NEEDED FOR SLEEP Last Documented On 12/09/2022 5:29PM By Radha Vincent MD ; [facility] Alendronate Sodium 70 MG OR TABS 06/19/2022 Provider : Diagnosis: 1 tab weekly Last Documented On 12/09/2022 5:29PM By WISAM CASH ; [facility] Levothyroxine Sodium 100 MCG OR CAPS 04/14/2020 Prov ider: Diagnosis: 1 tab daily Last Documented On 12/09/2022 5:29PM By WISAM CASH ; [facility] Pantoprazole Sodium 40 MG OR TBEC 11/15/2019 Provide r: Diagnosis: 1 tab daily Last Documented On 12/09/2022 5:29PM By WISAM CASH ; [facility] Azelastine HCl 0.15% NA SOLN 08/21/2019 Provider: Diagnosis: 2 sprays in each nostril twice a day Last Documented On 12/09/2022 5:29PM By WISAM CASH ; [facility] Fluticasone Propionate 50 MCG/ACT NA SUSP 07/25/2018 Provider: Diagnosis: 2 sprays in each nostril daily Last Documented On 12/09/2022 5:29PM By WISAM CASH ; [facility] amLODIPine Besy-Benazepril HCl 5-10 MG OR CAPS 016 Provider: Diagnosis: 1 daily Last Documented On 12/09/2022 5:29PM By WILMER REDDY LPN ; [facility] Lipitor 20 MG OR TABS 11/10/2015 Provider: Diagnosis: 1 tablet every evening Last Documented On 12/09/2022 5:29PM By WILMER REDDY LPN ; [facility] Lasix 20 MG OR TABS 11/10/2015 Provider: Diagnosis: 1 tablet every morning Last Documented On 12/09/2022 5:29PM By WILMER REDDY LPN ; [facility] Aspirin 81 MG OR TABS 11/10/2015 Provider: Diagnosis: 1 tablet daily Last Documented On 12/09/2022 5:29PM By WILMER REDDY LPN ; [facility] Past Medications on file Dicyclomine HCl 10 MG Oral Capsule 09/14/2023 - 2023 Provider: Diagnosis: 1 capsule bid Last Documented On 09/14/2023 11:16AM By WISAM CASH ; [facility] hydrOXYzine HCl 25 MG Oral Tablet 04/09/2023 - 06/08/2023 Provider: EILEEN CONNORS MD Diagnosis: 1 TAB a DAY NEEDED ONLY FOR ITCHING/ANXIETY Last Documented On 04/09/2023 12:08PM By Radha Vincent MD ; [facility] hydrOXYzine HCl 25 MG OR TABS 10/08/2020 - 11/07/2020 Provider: EILEEN VINCENT MD Diagnosis: Generalized anxi ety disorder as directed - 1 tab a day as needed for agitation/anxiety Last Documented On 12/09/2022 5:29PM By Radha Vincent MD ; [facility] LaMICtal 150 MG OR TABS 09/24/2018 - 09/27/2018 Provider: EILEEN VINCENT MD Diagnosis: Bipolar disorder , unspecified One tablet twice a day Last Documented On 12/09/2022 5:29PM By Radha Vincent MD ; [facility] Atorvastatin Calcium 20 MG OR TABS 01/28/2013 - 2012 Provider: Diagnosis: Last Documented On 12/09/2022 5:29PM By TERRI CASH ; [facility] Medications Administered Includes: Administered Medications from [...] esolved Last Documented On 9 1:33PM ; [facility] Sulfa Antibiotics Allergy 08/02/2012 A ctive Last Documented On 4 11:08AM ; [facility] Note: Imported from external source. Neupro Allergy rash 10/23/2013 Active Last Documented On 4 11:08AM ; [facility] Note: Imported from external source. Encounters Encounter Provider Location Date Check-In Time Check-Out Time Diagnosis * PHONE CALL EILEEN VINCENT MD [facility] 4 4:10PM 11:59PM Insurance Includes: Active Insurance Policies Plan Name Member ID Group # Subscriber Relationship Effect kofi Dates 1 - [employer] [id number] LANA DARBY Self 2 - [facility] [id number], INGR[place] J 0 - Unknown Clinical Notes Includes: Clinical Notes from this encounter * Progress note Date Encounter Last Documented by 11/08/2023 * PHONE CALL Last documented on 11/08/2023; 5:55 PM, EILEEN VINCENT MD; [facility] Active Problems & Conditions - Adult [...] Namzaric? pt phone # for return call: [phone] Date/Initials: 11/08/23 db. Current Medication - Alendronate [...]
== END 2024-09-01 16:28 | disposition home or self-care (01) ==
PROVIDERS: Emergency Provider Nurse Practitioner; PCP Internal Medicine
DX: M54.50 Low back pain, unspecified (principal); G30.0 Alzheimer's disease with early onset; F02.80 Dementia in other diseases classified elsewhere, unspecified severity, without behavioral disturbance, psychotic disturbance, mood disturbance, and anxiety; K21.9 Gastro-esophageal reflux disease without esophagitis; E78.5 Hyperlipidemia, unspecified; I10 Essential (primary) hypertension; E03.9 Hypothyroidism, unspecified; M81.0 Age-related osteoporosis without current pathological fracture; F41.9 Anxiety disorder, unspecified; F32.A Depression, unspecified; Z79.82 Long term (current) use of aspirin
CPT/HCPCS: 81003; 87086; 99213; G0463

== ENCOUNTER 2024-10-06 13:35 | Outpatient (CLI) | payer MEDICARE, BC, SELFPAY ==
--- NOTE | ~2024-10-06 | US_ITS ---
EXAMINATION TYPE: US breast RT limited COMPARISON: 03/12/2024, 12/07/2023 REASON FOR STUDY: R92.8 - Other abnormal and inconclusive findings on diagn... TECHNIQUE: Targeted sonographic evaluation of the right breast was performed. INTERPRETATION: At the 2:00 position right breast, 2 cm the nipple, there is a 5 x 5 x 4 mm hypoechoic circumscribed parallel cyst versus hypoechoic mass. There is mild posterior through transmission. IMPRESSION: 5 mm benign-appearing cyst versus hypoechoic mass, as above. BI-RADS CATEGORY: BI-RADS 2: Benign Reviewed, dictated and finalized at location . [facility]
--- OUTSIDE RECORDS SUMMARY | 2024-10-06 15:37 | XMS_ITS | Clinical Summary ---
Author Organization [facility] Address [address] [place] [address] Phone Care Team Providers Care Computer Field Technician Name Role Phone RHIANNON DAI, EILEEN JJ [...] Active Last Documented On 8 6:05AM ; [facility] Adult Attention Deficit Hype ractivity Disorder 01/16/2017 EILEEN VINCENT MD Active Last Documented On 7 11:10AM ; [facility] Psychophysiological Insomnia 09/27/2016 EILEEN VINCENT MD Active Last Documented On 7 10:35AM ; [facility] Bipolar I Disorder 03/13/2015 EILEEN BREEN MD Active Last Documented On 5 10:21AM ; [facility] Dementia 02/10/2015 EILEEN VINCENT MD Ac tive Last Documented On 5 10:58AM ; [facility] Generalized Anxiety Disorder 02/10/2015 EILEEN VINCENT MD Active Last Documented On 5 10:22AM ; [facility] Restless Legs Syndrome 07/28/2013 EILEEN DE LA VEGA MD Inactive Last Documented On 5 10:42AM ; [facility] Restless Legs Syndrome 07/28/2013 EILEEN DE LA VEGA MD Active Last Documented On 1 11:20AM ; [facility] Past Visits Onset Date Resolved Date Provider Condition Status Mild cognitive impairment of uncertain or unknown etiology 02/10/2015 EILEEN VINCENT MD Active Last Documented On 5 10:36AM ; [facility] Sleep apnea, unspecified 04/14/2013 EILEEN VINCENT MD Active Last Documented On 5 10:51AM ; [facility] Hypothyroidism, unspecified 08/02/2012 EILEEN VINCENT MD Active Last Documented On 5 10:49AM ; [facility] Gastro-esophageal reflux dis ease without esophagitis 08/02/2012 EILEEN VINCENT MD Active Last Documented On 5 10:37AM ; [facility] Fracture of Nasal Bones 08/02/2012 EILEEN VINCENT MD Active Last Documented On 2 11:16AM ; [facility] Hyperlipidemia, unspecified 08/02/2012 EILEEN VINCENT MD Active Last Documented On 5 10:38AM ; [facility] Essential (primary) hypertension 08/02/2012 MET LEONIDES VINCENT MD Active Last Documented On 5 10:38AM ; [facility] Irritable bowel syndrome without diarrhea 08/02/2012 EILEEN VINCENT MD Active Last Documented On 5 10:50AM ; [facility] Plan of Treatment Bipolar Depression [...] - Last Documented On 05/11/2022 12:54PM ; [facility] Instructions to patient Lose weight - pt gained 7 lb s since last seen Last Documented On 12:51PM ; [facility] Education and Decision Aids were provided during visit for: Patient education about medi cation --- I educated patient on medication(s) and diagnosis. I reviewed the risks, benefits and side effects of patient's medications Last Documented On 11:01AM ; [facility] Discussed calming techniques such as breathing exercises and other relaxation techniques Last Documented On 11:01AM ; [facility] Discussed good sleep hygiene habits Last Documented On 11:48AM ; [facility] Assessments Includes: Assessments from this encounter Findings - Restless legs syndrome - Last Documented On 05/11/2022 12:54PM ; [facility] - Dementia - Last Documented On 05/11/2022 12:54PM ; [facility] - Bipolar I disorder - Last Documented On 05/11/2022 12:54PM ; [facility] - Depressive disorder - Last Documented On 05/11/2022 12:54PM ; [facility] - Psychophysiological insomnia - Last Documented On 05/11/2022 12:54PM ; [facility] - Generalized anxiety disorder - Last Documented On 05/11/2022 12:54PM ; [facility] - Adult attention deficit hyperactivity disorder - Last Documented On 05/11/2022 12:54PM ; [facility] Instructions Includes: Instructions from this encounter Instructions to patient Lose weight - pt gained 7 lb s since last seen Last Documented On 12:51PM ; [facility] Education and Decision Aids were provided during visit for: Patient education about medi cation --- I educated patient on medication(s) and diagnosis. I reviewed the risks, benefits and side effects of patient's medications Last Documented On 11:01AM ; [facility] Discussed calming techniques such as breathing exercises and other relaxation techniques Last Documented On 11:01AM ; [facility] Discussed good sleep hygiene habits Last Documented On 08/24/202 2 11:48AM ; [facility] Medical Equipment - Implanted Devices Includes: Current Devices No Medical Equipment Recorded Medications Includes: Medications discussed during this encounter and other current Medications Discontinued / Stopped on this date RIANA SINGLETON MD on 08/20/2018 prednisoLONE Sodium Phosphat e 1% Ophthalmic Solution Provider: RIANA SINGLETON MD Diagnosis: Last Documented On 2 11:09AM By WISAM CASH ; [facility] New / Renewed during this visit EILEEN VINCENT MD on 04/05/2022 rOPINIRole HCl 2 MG Oral Tablet Provider: EILEEN VINCENT MD 30 day supply: 30 tablet, 5 refills Diagnosis: Restless legs syndrome as directed - 1 tab at 5 pm for restless legs [facility] [address] [address] - Last Documented On 3 10:37AM By Radha Vincent MD ; [facility] Current Medications (continue as prescribed) Mydayis 37.5 MG Oral Capsule Extended Release 24 Hour 12/07/2022 Provider: EILEEN VINCENT MD Diagnosis: Attention-defici t hyperactivity disorder, combined type 1 Capsule every morning Last Documented On 12/07/2022 4:33PM By Radha Vincent MD ; [facility] hydrOXYzine HCl 25 MG Oral Tablet 10/17/2022 Provide r: EILEEN VINCENT MD Diagnosis: 1 tab a day as needed only for itching/anxiety Last Documented On 10/17/2022 7:11PM By Radha Vincent MD ; [facility] Belsomra 10 MG Oral Tablet 09/27/2022 Provider: EILEEN VINCENT MD Diagnosis: Psychophysiologi c insomnia DIRECTED - ONE (1) TAB AT BEDTIME NEEDED FOR SLEEP Last Documented On 3 11:26AM By Radha Vincent MD ; [facility] Escitalopram Oxalate 20 MG Oral Tablet 09/25/2022 Provider: EILEEN VINCENT MD Diagnosis: Generalized anxi ety disorder TAKE ONE TABLET BY MOUTH DAILY Last Documented On 3 10:40AM By Radha Vincent MD ; [facility] lamoTRIgine 150 MG Oral Tablet 09/25/2022 Provider: EILEEN VINCENT MD Diagnosis: TAKE ONE TABLET BY MOUTH TWO TIMES A DAY Last Documented On 3 10:40AM By Radha Vincent MD ; [facility] rOPINIRole HCl 2 MG Oral Tablet 09/25/2022 Provider: EILEEN VINCENT MD Diagnosis: Restless legs sy ndrome DIRECTED - ONE (1) TAB AT FIVE (5) IN THE EVENING FOR RESTLESS LEGS Last Documented On 3 10:37AM By Radha Vincent MD ; [facility] buPROPion HCl ER (XL) 300 MG Oral Tablet Extended Release 24 Hour 07/03/2022 Provider: EILEEN VINCENT MD Diagnosis: Major depressive disorder, single episode, unspecified 1 tablet every morning Last Documented On 07/03/2022 1:56PM By Radha Vincent MD ; [facility] Alendronate Sodium 70 MG Oral Tablet 06/19/2022 Prov ider: WOLF MITCHELL MD Diagnosis: 1 tab weekly Last Documented On 2 11:54AM By WISAM CASH ; [facility] traZODone HCl 50 MG Oral Tablet 02/07/2022 Provider: EILEEN VINCENT MD Diagnosis: TAKE ONE (1) OR TWO (2) TABL ETS BY MOUTH AT BEDTIME NEEDED SLEEP Last Documented On 2 10:04AM By Radha Vincent MD ; [facility] Levothyroxine Sodium 100 MCG Oral Capsule 04/14/2020 Provider: GOLDIE KIDD MD Diagnosis: 1 tab daily Last Documented On 0 11:36AM By WISAM CASH ; [facility] Pantoprazole Sodium 40 MG Or al Tablet Delayed Release 11/15/2019 Provider: SIERRA MCGARRY Diagnosis: 1 tab daily Last Documented On 0 11:20AM By WISAM CASH ; [facility] Azelastine HCl 0.15% Nasal Solution 08/21/2019 Provi itz: GOLDIE KIDD MD Diagnosis: 2 sprays in each nostril twice a day Last Documented On 0 11:35AM By WISAM CASH ; [facility] Ferrous Sulfate 325 (65 Fe) MG Oral Tablet 04/10/2019 Provider: GOLDIE KIDD MD Diagnosis: 1 tab daily Last Documented On 04/10/2019 1:36PM By WISAM CASH ; [facility] Fluticasone Propionate 50MCG /ACT Nasal Suspension 07/25/2018 Provider: EMMETT CARRIZALES MD Diagnosis: 2 sprays in each nostril daily Last Documented On 11/28/2018 3:50PM By WISAM CASH ; [facility] Amlodipine Besy-Benazepril H Cl 5-10 MG Capsule, conventional 03/04/2016 Provider: EMMETT CARRIZALES MD Diagnosis: 1 daily Last Documented On 6 9:55AM By WILMER REDDY LPN ; [facility] Lipitor 20 MG Tablet 11/10/2015 Provider: JEFFERSON CARRIZALES MD Diagnosis: 1 tablet every evening Last Documented On 6 10:25AM By WILMER REDDY LPN ; [facility] Dicyclomine HCl 10 MG Capsule, conventional 11/10/2015 Provider: EMMETT CARRIZALES MD Diagnosis: 1 capsule daily Last Documented On 6 10:22AM By WILMER REDDY LPN ; [facility] Aspirin 81 MG Tablet 11/10/2015 Provider: JEFFERSON CARRIZALES MD Diagnosis: 1 tablet daily Last Documented On 6 10:23AM By WILMER REDDY LPN ; [facility] Lasix 20 MG Tablet 11/10/2015 Provider: EMMETT CARRIZALES MD Diagnosis: 1 tablet every morning Last Documented On 6 10:24AM By WILMER REDDY LPN ; [facility] Suspended Medications Trintellix 10 MG Oral Tablet 11/16/2022 Provider: EILEEN VINCENT MD Diagnosis: Major depressive disorder, single episode, unspecified TAKE ONE (1) TABLET BY MOUTH DAILY Last Documented On 3 12:52PM By Radha Vincent MD ; [facility] Namzaric 28-10 MG Oral Capsule Extended Release 24 Hour 10/17/2022 Provider: EILEEN VINCENT MD Diagnosis: Dem in oth dis c lassd elswhr,unsp sev,w/o beh/psych/mood/anx TAKE ONE CAPSULE BY MOUTH EV HELLEN MORNING Last Documented On 3 11:37AM By Radha Vincent MD ; [facility] busPIRone HCl 15 MG Oral Tablet 08/29/2022 Provider: EILEEN VINCENT MD Diagnosis: TAKE ONE TABLET BY MOUTH THREE TIMES a DAY Last Documented On 08/29/2022 3:43PM By Radha Vincent MD ; [facility] Past Medications on file hydrOXYzine HCl 25 MG Oral Tablet 10/08/2020 - 11/07/2020 Provider: EILEEN VINCENT MD Diagnosis: Generalized anxi ety disorder as directed - 1 tab a day as needed for agitation/anxiety Last Documented On 10/08/2020 2:47PM By Radha Vincent MD ; [facility] LaMICtal 150MG Oral Tablet 09/24/2018 - 09/27/2018 Provider: EILEEN VINCENT MD Diagnosis: Bipolar disorder , unspecified One tablet twice a day Last Documented On 09/24/2018 1:31PM By Radha Vincent MD ; [facility] Atorvastatin Calcium 20 MG OR TABS 01/28/2013 - 2012 Provider: Diagnosis: Last Documented On 3 3:46PM By TERRI CASH ; [facility] Medications Administered Includes: Administered Medications [...] Last Documented: On 04/05/2022 11:51A M ; [facility] Results Includes: Results discussed during this [...] 08/21/2019 Last Documented On 2 11:01AM ; [facility] She was born in [place], [place]. She was raised in [place], [place] and [place], [place]. She was close to her parents while growing up and they were supportive of her. 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 11/08/2012 Last Documented On 11:01AM ; [facility] Not using alcohol 08/02/2012 Last Documented On 11:01AM ; [facility] Not using drugs (Illicit) 08/02/2012 Last Documented On 11:01AM ; [facility] Smoking status : Never smoked 08/02/2012 Last Documented On 11:01AM ; [facility] Procedures and Surgical History Includes: Procedures from this encounter Procedures Code Diagnosis Performing Provider Service L ocation Service Date education and instructions Last Documented On 11:01AM ; [facility] Pt to call 911 and /or go to the nearest emergency room or call me if suicidal/homicidal ideation or other serious concerns arise. ~ I gave instructions to call me should there be any questions or concerns. ~ The patient verbalized understanding and agreed to treatment plan Last Documented On 12:52PM ; [facility] dangerousness assessment: suicide risk - not jared cidal 3085F Last Documented On 12:00PM ; [facility] use of tobacco assessment performed 1000F Last Documented On 11:01AM ; [facility] patient screened for future fall risk - 13 3288F Last Documented On 11:48AM ; [facility] review of medications documented 1160F Last Documented On 11:01AM ; [facility] screening for adult depressi on: impression and score - please see above treatment and PHQ score Last Documented On 11:01AM ; [facility] standardized depression screening: posit kofi for symptoms Last Documented On 11:01AM ; [facility] encouragement to exercise Last Documented On 2 11:48AM ; [facility] Clinical summary provided to patient Last Documented On 2 11:48AM ; [facility] PHQ-9: total score 6 Last Documented On 2 12:50PM ; [facility] Surgical History Last Updated 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 04/201811/28/2018 Last Documented On 2 11:01AM ; [facility] History of hallux valgus (bunion) correc tion -- 08/01/17 09/07/2017 Last Documented On 2 11:01AM ; [facility] History of excision left foot bunion-- 2 012 01/28/2015 Last Documented On 2 11:01AM ; [facility] History of tubal ligation 01/28/2015 Last Documented On 2 11:01AM ; [facility] History of hysterectomy 01/28/2015 Last Documented On 2 11:01AM ; [facility] History of cholecystectomy 08/02/2012 Last Documented On 2 11:01AM ; [facility] Medical History Includes: Medical History addressed during this encounter Description Last Updated History of obstructive sleep apnea -- sleep study done 05/22/13 at [facility] under Dr. Cutler. She was wearing a dental device purchased from [facility] [employer]. Patient does not wear her dental device. She uses O2 at 2 liters 10/17/2022 Last Documented On 2 11:01AM ; [facility] History of bronchitis - give n Zpak 250 mg and Albuterol HFA 90 mcg inhaler on 02/23/22 and given Methylprednisolone Dosepak 4 mg on 02/18/22 04/05/2022 Last Documented On 2 12:54PM ; [facility] History of fall risk -- [...] 04/05/2022 Last Documented On 2 12:54PM ; [facility] History of hammer toe - 2nd toe of left foot straightened by Dr. Hiro Arthur 11/05/20 -- given Keflex 500 mg 04/05/2022 Last Documented On 2 12:54PM ; [facility] Primary Care Provider: Dr. Emmett Carrizales ~Dr. Sierra Mcgarry -- Vice President Process ~Dr. Hiro Arthur, DPM -- Private Branch Exchange Installer ~Dr. Mitchell -- Hat Body Sorter ~Dr. Keanu Mitchell, NICKY -- Dentist 04/05/2022 Last Documented On 2 12:54PM ; [facility] History of coronavirus 2019- nCoV vaccine - Pfizer #1 11/02/20 #2 03/23/21 -- as of 07/29/21 no booster yet 07/29/2021 Last Documented On 2 11:01AM ; [facility] History of vaginal candidiasis - given F lagyl 500 mg 11/06/20 12/20/2020 Last Documented On 2 11:01AM ; [facility] History of colonoscopy - 11/202012/21/19 21 Last Documented On 2 11:01AM ; [facility] History of hearing loss - wears bilatera l hearing aids 04/10/2019 Last Documented On 2 11:01AM ; [facility] History of iron deficiency - started on Ferrous Sulfate 325 mg [address] Goldie Kidd in 01/201904/10/2019 Last Documented On 2 11:01AM ; [facility] History of head injury /brain trauma Last Documented On 2 11:01AM ; [facility] History of sprain of the left foot 01/03 Last Documented On 2 11:01AM ; [facility] History of tinea pedis 08/01/2016 Last Documented On 2 11:01AM ; [facility] History of Epidural Steroid Injection -- 03/08/[address] Yi for back pain 03/13/2016 Last Documented On 2 11:01AM ; [facility] History of irritable bowel syndrome 01/13 Last Documented On 2 11:01AM ; [facility] History of esophageal reflux 08/02/2012 Last Documented On 2 11:01AM ; [facility] History of hypothyroidism 08/02/2012 Last Documented On 2 11:01AM ; [facility] History of hyperlipidemia 08/02/2012 Last Documented On 2 11:01AM ; [facility] History of hypertension 08/02/2012 Last Documented On 2 11:01AM ; [facility] Family History Includes: Family History addressed during this encounter Description Last Updated Paternal history of depression -- father 10/15/2014 Last Documented On 2 11:01AM ; [facility] Maternal history of depression -- mother 10/15/2014 Last Documented On 2 11:01AM ; [facility] Sororal history of depression -- sister 10/15/2014 Last Documented On 2 11:01AM ; [facility] Maternal history of anxiety disorder NOS -- mother 10/15/2014 Last Documented On 2 11:01AM ; [facility] Paternal history of anxiety disorder NOS -- father 10/15/2014 Last Documented On 2 11:01AM ; [facility] Review of Systems Includes: Review [...] Oriented correctly to town Oriented correctly to [facility] Oriented correctly to floor Normal recent [...] esolved Last Documented On 9 1:33PM ; [facility] Sulfa Antibiotics Allergy 08/02/2012 A ctive Last Documented On 4 11:08AM ; [facility] Note: Imported from external source. Neupro Allergy rash 10/23/2013 Active Last Documented On 4 11:08AM ; [facility] Note: Imported from external source. Encounters Encounter Provider Location Date Check-In Time Check-Out Time Diagnosis [employer] EILEEN VINCENT MD [facility] 04/05/20 22 11:00AM 11:59PM Generalized Anxiety Disorder,Dementia ,Psychophysiologi maday Insomnia,Bipolar I Disorder,Adult Attention Deficit Hyperactivity Disorder,Depressi ve Disorder, Nos,Restless Legs Syndrome Insurance Includes: Active Insurance Policies Plan Name Member ID Group # Subscriber Relationship Effect kofi Dates 1 - [facility] [id number] EDITH DARBY Self 2 - [facility] [id number] INGRID DARBY 0 - Unknown Clinical Notes Includes: Clinical Notes from this encounter No Clinical Notes Recorded
--- OUTSIDE RECORDS SUMMARY | 2024-10-06 15:37 | XMS_ITS | Clinical Summary ---
Author Organization [facility] Address [address] [place] [address] Phone Care Team Providers Care Flatbed Stitcher Name Role Phone RHIANNON DAI, EILEEN JJ [...] Active Last Documented On 8 6:05AM ; [facility] Adult Attention Deficit Hype ractivity Disorder 01/16/2017 EILEEN VINCENT MD Active Last Documented On 7 11:10AM ; [facility] Psychophysiological Insomnia 09/27/2016 EILEEN VINCENT MD Active Last Documented On 7 10:35AM ; [facility] Bipolar I Disorder 03/13/2015 EILEEN BREEN MD Active Last Documented On 5 10:21AM ; [facility] Dementia 02/10/2015 EILEEN VINCENT MD Ac tive Last Documented On 5 10:58AM ; [facility] Generalized Anxiety Disorder 02/10/2015 EILEEN VINCENT MD Active Last Documented On 5 10:22AM ; [facility] Restless Legs Syndrome 07/28/2013 EILEEN DE LA VEGA MD Inactive Last Documented On 5 10:42AM ; [facility] Rest[facility] 07/28/2013 EILEEN DE LA VEGA MD Active Last Documented On 1 11:20AM ; [facility] Past Visits Onset Date Resolved Date Provider Condition Status Mild cognitive impairment of uncertain or unknown etiology 02/10/2015 EILEEN VINCENT MD Active Last Documented On 5 10:36AM ; [facility] Sleep apnea, unspecified 04/14/2013 EILEEN VINCENT MD Active Last Documented On 5 10:51AM ; [facility] Hypothyroidism, unspecified 08/02/2012 EILEEN VINCENT MD Active Last Documented On 5 10:49AM ; [facility] Gastro-esophageal reflux dis ease without esophagitis 08/02/2012 EILEEN VINCENT MD Active Last Documented On 5 10:37AM ; [facility] Fracture of Nasal Bones 08/02/2012 EILEEN VINCENT MD Active Last Documented On 2 11:16AM ; [facility] Hyperlipidemia, unspecified 08/02/2012 EILEEN VINCENT MD Active Last Documented On 5 10:38AM ; [facility] Essential (primary) hypertension 08/02/2012 MET LEONIDES VINCENT MD Active Last Documented On 5 10:38AM ; [facility] Irritable bowel syndrome without diarrhea 08/02/2012 EILEEN VINCENT MD Active Last Documented On 5 10:50AM ; [facility] Plan of Treatment Bipolar Depression - Lamictal [...] - Last Documented On 07/17/2022 12:56PM ; [facility] Education and Decision Aids were provided during visit for: Patient education about medi cation ---Education was given on medication(s) and diagnosis. I reviewed the risks, benefits and side effects of patient's medications Last Documented On 11:24AM ; [facility] Discussed calming techniques such as breathing exercises and other relaxation techniques Last Documented On 11:24AM ; [facility] Counseling for nutrition/teresa ght management provided Last Documented On 11:45AM ; [facility] Discussed good sleep hygiene habits Last Documented On 11:45AM ; [facility] I recommended cognitive exer cises such as reading and/or word search puzzles, etc.. Last Documented On 12:49PM ; [facility] Assessments Includes: Assessments from this encounter Findings - Restless legs syndrome - Last Documented On 07/17/2022 12:56PM ; [facility] - Dementia - Last Documented On 07/17/2022 12:56PM ; [facility] - Bipolar I disorder - Last Documented On 07/17/2022 12:56PM ; [facility] - Depressive disorder - Last Documented On 07/17/2022 12:56PM ; [facility] - Psychophysiological insomnia - Last Documented On 07/17/2022 12:56PM ; [facility] - Generalized anxiety disorder - Last Documented On 07/17/2022 12:56PM ; [facility] - Adult attention deficit hyperactivity disorder - Last Documented On 07/17/2022 12:56PM ; [facility] Instructions Includes: Instructions from this encounter Education [...] techniques Last Documented On 2 11:24AM ; [facility] Counseling for nutrition/teresa ght management provided Last Documented On 2 11:45AM ; [facility] Discussed good sleep hygiene habits Last Documented On 2 11:45AM ; [facility] I recommended cognitive exer cises such as reading and/or word search puzzles, etc.. Last Documented On 2 12:49PM ; [facility] Medical Equipment - Implanted Devices Includes: Current Devices No Medical Equipment Recorded Medications Includes: Medications discussed during this encounter and other current Medications Discontinued / Stopped on this date EILEEN VINCENT MD on 04/11/2022 Quviviq 50 MG Oral Tablet Provider: EILEEN VINCENT MD Diagnosis: Psychophysiologi c insomnia Last Documented On 12:18PM By Radha Vincent MD ; [facility] hydrOXYzine HCl 25 MG Oral Tablet Provider: EILEEN VINCENT MD Diagnosis: Generalized anxi ety disorder Last Documented On 2 11:42AM By WISAM CASH ; [facility] hydrOXYzine HCl 25 MG Oral Tablet Provide r: Diagnosis: Generalized anxi ety disorder Last Documented On 2 11:42AM By WISAM CASH ; [facility] traZODone HCl 50 MG Oral Tablet Provider: EILEEN VINCENT MD Diagnosis: Psychophysiologi c insomnia Last Documented On 2 11:42AM By WISAM CASH ; [facility] traZODone HCl 50 MG Oral Tablet Provider: Diagnosis: Psychophysiologi c insomnia Last Documented On 2 11:42AM By WISAM CASH ; [facility] Calcium 600+D 600-400 MG-UNIT Tablet Prov ider: BETSY CARRIZALES MD Diagnosis: Last Documented On 2 11:34AM By WISAM CASH ; [facility] New / Renewed during this visit EILEEN VINCENT MD on 07/17/2022 Quviviq 50 MG Oral Tablet Provider: EILEEN VINCENT MD 30 day supply: 30 tablet, 3 refills Diagnosis: Psychophysiologic insomnia One tablet at bed time Pharmacy: [facility] - [address] [place] [address] [address], [facility], [id number] - Last Documented On 3 10:52AM By WISAM CASH ; [facility] Trintellix 10 MG Oral Tablet Provider: EILEEN VINCENT MD 30 day supply: 30 tablet, 3 refills Diagnosis: Major depressive disorder, single episode, unspecified One tablet daily [facility] - [address] [place] [address], [id number] - Last Documented On 3 12:52PM By Radha Vincent MD ; [facility] Current Medications (continue as prescribed) Mydayis 37.5 MG Oral Capsule Extended Release 24 Hour 12/07/2022 Provider: EILEEN VINCENT MD Diagnosis: Attention-defici t hyperactivity disorder, combined type 1 Capsule every morning Last Documented On 12/07/2022 4:33PM By Radha Vincent MD ; [facility] hydrOXYzine HCl 25 MG Oral Tablet 10/17/2022 Provide r: EILEEN VINCENT MD Diagnosis: 1 tab a day as needed only for itching/anxiety Last Documented On 10/17/2022 7:11PM By Radha Vincent MD ; [facility] Belsomra 10 MG Oral Tablet 09/27/2022 Provider: EILEEN VINCENT MD Diagnosis: Psychophysiologi c insomnia DIRECTED - ONE (1) TAB AT BEDTIME NEEDED FOR SLEEP Last Documented On 3 11:26AM By Radha Vincent MD ; [facility] Escitalopram Oxalate 20 MG Oral Tablet 09/25/2022 Provider: EILEEN VINCENT MD Diagnosis: Generalized anxi ety disorder TAKE ONE TABLET BY MOUTH DAILY Last Documented On 3 10:40AM By Radha Vincent MD ; [facility] lamoTRIgine 150 MG Oral Tablet 09/25/2022 Provider: EILEEN VINCENT MD Diagnosis: TAKE ONE TABLET BY MOUTH TWO TIMES A DAY Last Documented On 3 10:40AM By Radha Vincent MD ; [facility] rOPINIRole HCl 2 MG Oral Tablet 09/25/2022 Provider: EILEEN VINCENT MD Diagnosis: Restless legs sy ndrome DIRECTED - ONE (1) TAB AT FIVE (5) IN THE EVENING FOR RESTLESS LEGS Last Documented On 3 10:37AM By Radha Vincent MD ; [facility] buPROPion HCl ER (XL) 300 MG Oral Tablet Extended Release 24 Hour 07/03/2022 Provider: EILEEN VINCENT MD Diagnosis: Major depressive disorder, single episode, unspecified 1 tablet every morning Last Documented On 07/03/2022 1:56PM By Radha Vincent MD ; [facility] Alendronate Sodium 70 MG Oral Tablet 06/19/2022 Prov ider: WOLF MITCHELL MD Diagnosis: 1 tab weekly Last Documented On 2 11:54AM By WISAM CASH ; [facility] traZODone HCl 50 MG Oral Tablet 02/07/2022 Provider: EILEEN VINCENT MD Diagnosis: TAKE ONE (1) OR TWO (2) TABL ETS BY MOUTH AT BEDTIME NEEDED SLEEP Last Documented On 2 10:04AM By Radha Vincent MD ; [facility] Levothyroxine Sodium 100 MCG Oral Capsule 04/14/2020 Provider: GOLDIE KIDD MD Diagnosis: 1 tab daily Last Documented On 0 11:36AM By WISAM CASH ; [facility] Pantoprazole Sodium 40 MG Or al Tablet Delayed Release 11/15/2019 Provider: SIERRA MCGARRY Diagnosis: 1 tab daily Last Documented On 0 11:20AM By WISAM CASH ; [facility] Azelastine HCl 0.15% Nasal Solution 08/21/2019 Provi itz: GOLDIE KIDD MD Diagnosis: 2 sprays in each nostril twice a day Last Documented On 0 11:35AM By WISAM CASH ; [facility] Ferrous Sulfate 325 (65 Fe) MG Oral Tablet 04/10/2019 Provider: GOLDIE KIDD MD Diagnosis: 1 tab daily Last Documented On 04/10/2019 1:36PM By WISAM CASH ; [facility] Fluticasone Propionate 50MCG /ACT Nasal Suspension 07/25/2018 Provider: BETSY CARRIZALES MD Diagnosis: 2 sprays in each nostril daily Last Documented On 11/28/2018 3:50PM By WISAM CASH ; [facility] Amlodipine Besy-Benazepril H Cl 5-10 MG Capsule, conventional 03/04/2016 Provider: BETSY CARRIZALES MD Diagnosis: 1 daily Last Documented On 6 9:55AM By WILMER REDDY LPN ; [facility] Lipitor 20 MG Tablet 11/10/2015 Provider: JEFFERSON CARRIZALES MD Diagnosis: 1 tablet every evening Last Documented On 6 10:25AM By WILMER REDDY LPN ; [facility] Dicyclomine HCl 10 MG Capsule, conventional 11/10/2015 Provider: BETSY CARRIZALES MD Diagnosis: 1 capsule daily Last Documented On 6 10:22AM By WILMER REDDY LPN ; [facility] Aspirin 81 MG Tablet 11/10/2015 Provider: JEFFERSON CARRIZALES MD Diagnosis: 1 tablet daily Last Documented On 6 10:23AM By WILMER REDDY LPN ; [facility] Lasix 20 MG Tablet 11/10/2015 Provider: BETSY CARRIZALES MD Diagnosis: 1 tablet every morning Last Documented On 6 10:24AM By WILMER REDDY LPN ; [facility] Suspended Medications Trintellix 10 MG Oral Tablet 11/16/2022 Provider: EILEEN VINCENT MD Diagnosis: Major depressive disorder, single episode, unspecified TAKE ONE (1) TABLET BY MOUTH DAILY Last Documented On 3 12:52PM By Radha Vincent MD ; [facility] Namzaric 28-10 MG Oral Capsule Extended Release 24 Hour 10/17/2022 Provider: EILEEN VINCENT MD Diagnosis: Dem in oth dis c lassd elswhr,unsp sev,w/o beh/psych/mood/anx TAKE ONE CAPSULE BY MOUTH EV HELLEN MORNING Last Documented On 3 11:37AM By Radha Vincent MD ; [facility] busPIRone HCl 15 MG Oral Tablet 08/29/2022 Provider: EILEEN VINCENT MD Diagnosis: TAKE ONE TABLET BY MOUTH THREE TIMES a DAY Last Documented On 08/29/2022 3:43PM By Radha Vincent MD ; [facility] Past Medications on file hydrOXYzine HCl 25 MG Oral Tablet 10/08/2020 - 11/07/2020 Provider: EIELEN VINCENT MD Diagnosis: Generalized anxi ety disorder as directed - 1 tab a day as needed for agitation/anxiety Last Documented On 10/08/2020 2:47PM By Radha Vincent MD ; [facility] LaMICtal 150MG Oral Tablet 09/24/2018 - 09/27/2018 Provider: EILEEN VINCENT MD Diagnosis: Bipolar disorder , unspecified One tablet twice a day Last Documented On 09/24/2018 1:31PM By Radha Vincent MD ; [facility] Atorvastatin Calcium 20 MG OR TABS 01/28/2013 - 2012 Provider: Diagnosis: Last Documented On 3 3:46PM By TERRI CASH ; [facility] Medications Administered Includes: Administered Medications from this [...] Last Documented: On 07/17/2022 11:52A M ; [facility] Results Includes: Results discussed during this encounter [...] her that she needs to go to [facility]. At times it is bothersome and nagging her. She did not think it is a hallucination but at times she feels she is creating it. She went ahead and went to [facility] and seemed to have calmed down but [...] got the Quviviq so will send through [facility]. Pt has not been napping/sleeping too [...] something in her head to go to [facility] Appearance - casually groomed Motor Behavior - calm Eye Contact - intermittent Speech - fluent Mood - at times down Affect - occ anxious Thought Process - coherent Insight and Judgment - intact Social History Description Last Updated Daily coffee consumption -- no coffee, 2 glasses of unsweetened tea daily 08/21/2019 Last Documented On 2 11:24AM ; [facility] She was born in [place], [place]. She was raised in [place], [place] and [place], [place]. She was close to her parents while growing up and they were supportive of her. 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 She denied any history of verbal,physical or sexual abuse 01/16/2017 Last Documented On 2 11:24AM ; [facility] Marital history -- 01/16/2017 Last Documented On 11:24AM ; [facility] Work history pt used to work as a [employer], but has been disabled since 2005 due to memory problems 11/08/2012 Last Documented On 11:24AM ; [facility] Not using alcohol 08/02/2012 Last Documented On 11:24AM ; [facility] Not using drugs (Illicit) 08/02/2012 Last Documented On 11:24AM ; [facility] Smoking status : Never smoked 08/02/2012 Last Documented On 11:24AM ; [facility] Procedures and Surgical History Includes: Procedures from this encounter Procedures Code Diagnosis Performing Provider Service L ocation Service Date education and instructions Last Documented On 11:24AM ; [facility] dangerousness assessment: suicide risk -not suic idal 3085F Last Documented On 11:24AM ; [facility] use of tobacco assessment performed 1000F Last Documented On 11:24AM ; [facility] patient screened for future fall risk - 13 3288F Last Documented On 11:24AM ; [facility] review of medications documented 1160F Last Documented On 11:24AM ; [facility] screening for adult depressi on: impression and score - please see above treatment and PHQ score Last Documented On 11:24AM ; [facility] standardized depression screening: posit kofi for symptoms Last Documented On 11:24AM ; [facility] encouragement to exercise Last Documented On 11:24AM ; [facility] Counseling on new medication : I discussed the risks, benefits and side effects of Trintellix . 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 04/201811/28/2018 Last Documented On 2 11:24AM ; [facility] History of hallux valgus (bunion) correc tion -- 08/01/17 09/07/2017 Last Documented On 2 11:24AM ; [facility] History of excision left foot bunion-- 2 012 01/28/2015 Last Documented On 2 11:24AM ; [facility] History of tubal ligation 01/28/2015 Last Documented On 2 11:24AM ; [facility] History of hysterectomy 01/28/2015 Last Documented On 2 11:24AM ; [facility] History of cholecystectomy 08/02/2012 Last Documented On 2 11:24AM ; [facility] Medical History Includes: Medical History addressed during this encounter Description Last Updated History of bronchitis - give n Zpak 250 mg and Albuterol HFA 90 mcg inhaler on 02/23/22 and given Methylprednisolone Dosepak 4 mg on 02/18/22 10/17/2022 Last Documented On 2 11:24AM ; [facility] History of obstructive sleep apnea -- sleep study done 05/22/13 at [facility] under Dr. Cutler. She was wearing a dental device purchased from [facility] dentistry. Patient does not wear her dental device. She uses O2 at 2 liters 10/17/2022 Last Documented On 2 11:24AM ; [facility] History of fall risk -- pt h [...] going down while she was at the [employer]; she had a nosebleed and a sore right knee; she did not go to the Dr. or ER 07/17/2022 Last Documented On 2 12:56PM ; [facility] Primary Care Provider: Dr. Angela Carrizales ~Dr. Sierra Mcgarry -- Tire Buffer ~Dr. Naveed Lala, DPM -- Cna Pct ~Dr. Wolf Mitchell -- Neurology Director ~Dr. Keanu Mitchell, NICKY -- Dentist ~Dr. Joshua Hanson, OD -- Log Inspector 07/17/2022 Last Documented On 2 12:56PM ; [facility] History of hammer toe - 2nd toe of left foot straightened by Dr. Hiro Arthur 11/05/20 -- given Keflex 500 mg 04/05/2022 Last Documented On 2 11:24AM ; [facility] History of coronavirus 2019- nCoV vaccine - Pfizer #1 11/02/20 #2 03/23/21 -- as of 07/29/21 no booster yet 07/29/2021 Last Documented On 2 11:24AM ; [facility] History of vaginal candidiasis - given F lagyl 500 mg 11/06/20 12/20/2020 Last Documented On 2 11:24AM ; [facility] History of colonoscopy - 11/202012/21/19 Last Documented On 2 11:24AM ; [facility] History of hearing loss - wears bilatera l hearing aids 04/10/2019 Last Documented On 2 11:24AM ; [facility] History of iron deficiency - started on Ferrous Sulfate 325 [address] Goldie Kidd in 01/201904/10/2019 Last Documented On 2 11:24AM ; [facility] of head [facility] /brain trauma Last Documented On 2 11:24AM ; [facility] History of sprain of the left foot 01/03 Last Documented On 2 11:24AM ; [facility] History of tinea pedis 08/01/2016 Last Documented On 2 11:24AM ; [facility] History of Epidural Steroid Injection -- 03/08/[address] Yi for back pain 03/13/2016 Last Documented On 2 11:24AM ; [facility] History of irritable bowel syndrome 01/13 Last Documented On 2 11:24AM ; [facility] History of esophageal reflux 08/02/2012 Last Documented On 2 11:24AM ; [facility] History of hypothyroidism 08/02/2012 Last Documented On 2 11:24AM ; [facility] History of hyperlipidemia 08/02/2012 Last Documented On 2 11:24AM ; [facility] History of hypertension 08/02/2012 Last Documented On 2 11:24AM ; [facility] Family History Includes: Family History addressed during this encounter Description Last Updated Paternal history of depression -- father 10/15/2014 Last Documented On 2 11:24AM ; [facility] Maternal history of depression -- mother 10/15/2014 Last Documented On 2 11:24AM ; [facility] Sororal history of depression -- sister 10/15/2014 Last Documented On 2 11:24AM ; [facility] Maternal history of anxiety disorder NOS -- mother 10/15/2014 Last Documented On 2 11:24AM ; [facility] Paternal history of anxiety disorder NOS -- father 10/15/2014 Last Documented On 2 11:24AM ; [facility] Review of Systems Includes: Review of Systems [...] esolved Last Documented On 9 1:33PM ; [facility] Sulfa Antibiotics Allergy 08/02/2012 A ctive Last Documented On 4 11:08AM ; [facility] Note: Imported from external source. Neupro Allergy rash 10/23/2013 Active Last Documented On 4 11:08AM ; [facility] Note: Imported from external source. Encounters Encounter Provider Location Date Check-In Time Check-Out Time Diagnosis [facility] EILEEN VINCENT MD [facility] 07/17/20 22 11:24AM 11:59PM Generalized Anxiety Disorder,Restless Legs Syndrome,Dementia ,Psychophysiologi maday Insomnia,Bipolar I Disorder,Adult Attention Deficit Hyperactivity Disorder,Depressi ve Disorder, Nos Insurance Includes: Active Insurance Policies Plan Name Member ID Group # Subscriber Relationship Effect kofi Dates 1 - [facility] [id number] EDITH DARBY Self 2 - [facility] [id number] INGRID DARBY J 0 - Unknown Clinical Notes Includes: Clinical Notes from this encounter No Clinical Notes Recorded
--- OUTSIDE RECORDS SUMMARY | 2024-10-06 15:37 | XMS_ITS | Clinical Summary ---
Author Organization [facility] Address [address] [place] [address] Phone Care Team Providers Care Licensed Acupuncturist Name Role Phone RHIANNON DAI, EILEEN JJ Unavailable [phone] Reason for Visit and Chief Complaint * PHONE CALL Problems Includes: Problems addressed during this encounter and other active Problems Current Visit Onset Date Resolved Date Provider Conditio n Status Adult Attention Deficit Hyperactivity Disorder 01/16/2017 Active Last Documented On 3 5:50PM ; [facility] Past Visits Onset Date Resolved Date Provider Condition Status Depressive Disorder, Nos 04/13/2018 Active Last Documented On 3 5:51PM ; [facility] Psychophysiological Insomnia 09/27/2016 Active Last Documented On 3 5:50PM ; [facility] Bipolar I Disorder 03/13/2015 Active Last Documented On 3 5:48PM ; [facility] Dementia 02/10/2015 Active Last Documented On 3 5:48PM ; [facility] Generalized Anxiety Disorder 02/10/2015 Active Last Documented On 3 5:48PM ; [facility] Mild Cognitive Impairment 02/10/2015 EILEEN VINCENT MD Active Last Documented On 3 5:01PM ; [facility] Restless Legs Syndrome 07/28/2013 Ac tive Last Documented On 3 5:48PM ; [facility] 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 EILEEN DE LA VEGA MD Active Last Documented On 3 5:01PM ; [facility] Hypothyroidism, unspecified 08/02/2012 Active Last Documented On 3 5:48PM ; [facility] Gastro-esophageal reflux disease without esophagitis 08/02 Active Last Documented On 3 5:48PM ; [facility] Fracture of Nasal Bones 08/02/2012 A ctive Last Documented On 3 5:42PM ; [facility] Hyperlipidemia, unspecified 08/02/2012 Active Last Documented On 3 5:48PM ; [facility] Essential (primary) hypertension 08/02/2012 Active Last Documented On 3 5:48PM ; [facility] Irritable bowel syndrome without diarrhea 08/02/2012 Active Last Documented On 3 5:48PM ; [facility] Plan of Treatment Future Appointments Date [facility] 12/24/2024 11:00AM [facility] VINCENT MD Last Documented On 5 4:04PM ; [facility] Assessments Includes: Assessments from this encounter Findings - Adult attention deficit hyperactivity disorder - Last Documented On 10/31/2023 11:49AM ; [facility] Medical Equipment - Implanted Devices Includes: Current [...] 10/31/2023 11:48AM By Radha Vincent MD ; [facility] New / Renewed during this visit EILEEN VINCENT MD on 10/31/2023 Mydayis 37.5 MG Oral Capsule Extended Release 24 Hour Provider: EILEEN VINCENT MD 30 day supply: 30 capsule, 0 refills Diagnosis: Attention-deficit hyperactivity disorder, combined type TAKE ONE (1) CAPSULE BY MOUT H EACH MORNING Pharmacy: [facility], [address] - Last Documented On 11/27/2023 5:06PM By Radha Vincent MD ; [facility] Current Medications (continue as prescribed) busPIRone HCl 15 MG Oral Tablet 01/16/2024 Provider: EILEEN VINCENT MD Diagnosis: TAKE ONE TABLET BY MOUTH THREE TIMES a DAY Last Documented On 01/16/2024 10:52AM By Radha Vincent MD ; [facility] Mydayis 37.5 MG Oral Capsule Extended Release 24 Hour 01/01/2024 Provider: EILEEN VINCENT MD Diagnosis: Attention-defici t hyperactivity disorder, combined type TAKE ONE (1) CAPSULE BY MOUT H EACH MORNING Last Documented On 01/01/2024 5:57PM By Radha Vincent MD ; [facility] rOPINIRole HCl 2 MG Oral Tablet 12/19/2023 Provider: EILEEN VINCENT MD Diagnosis: Restless legs sy ndrome as directed 1 tablet at 5 pm in the evening for restless legs Last Documented On 12/19/2023 11:49AM By Radha Vincent MD ; [facility] Memantine HCl 5 MG Oral Tablet 12/12/2023 Provider: EILEEN VINCENT MD Diagnosis: Dem in oth dis c lassd elswhr,unsp sev,w/o beh/psych/mood/anx One tablet daily Last Documented On 12/12/2023 4:50PM By Radha Vincent MD ; [facility] rOPINIRole HCl 2 MG Oral Tablet 12/10/2023 Provider: VENTURA GERARDO Diagnosis: Last Documented On 12/19/2023 11:45AM By Radha Vincent MD ; [facility] Namzaric 28-10 MG Oral Capsule Extended Release 24 Hour 11/26/2023 Provider: EILEEN VINCENT MD Diagnosis: Dem in oth dis c lassd elswhr,unsp sev,w/o beh/psych/mood/anx TAKE ONE CAPSULE BY MOUTH EV HELLEN MORNING Last Documented On 11/26/2023 1:10PM By Radha Vincent MD ; [facility] Trintellix 10 MG Oral Tablet 11/13/2023 Provider: EILEEN VINCENT MD Diagnosis: Major depressive disorder, single episode, unspecified TAKE ONE (1) TABLET BY MOUTH DAILY Last Documented On 11/13/2023 10:08AM By Radha Vincent MD ; [facility] Belsomra 10 MG Oral Tablet 11/01/2023 Provider: EILEEN VINCENT MD Diagnosis: Psychophysiologi c insomnia DIRECTED 1 TABLET AT BEDT ELEAZAR NEEDED FOR SLEEP Last Documented On 11/01/2023 4:16PM By Radha Vincent MD ; [facility] buPROPion HCl ER (XL) 300 MG Oral Tablet Extended Release 24 Hour 08/24/2023 Provider: EILEEN VINCENT MD Diagnosis: Major depressive disorder, single episode, unspecified 1 tablet every morning Last Documented On 08/24/2023 10:15AM By Radha Vincent MD ; [facility] lamoTRIgine 150 MG Oral Tablet 08/24/2023 Provider: EILEEN VINCENT MD Diagnosis: TAKE ONE TABLET BY MOUTH TWO TIMES A DAY Last Documented On 08/24/2023 10:26AM By Radha Vincent MD ; [facility] Escitalopram Oxalate 20 MG Oral Tablet 08/24/2023 Provider: EILEEN VINCENT MD Diagnosis: Generalized anxi ety disorder TAKE ONE TABLET BY MOUTH DAILY Last Documented On 08/24/2023 10:16AM By Radha Vincent MD ; [facility] Ferrous Sulfate 325 (65 Fe) MG Oral Tablet 04/18/2023 Provider: Diagnosis: 1 tab every other day Last Documented On 04/18/2023 10:30AM By WISAM CASH ; [facility] Belsomra 10 MG Oral Tablet 03/19/2023 Provider: Diagnosis: Psychophysiologi c insomnia 1 tablet at bedtime as needed for sleep Last Documented On 03/19/2023 2:13PM By LETI WILSON ; [facility] Belsomra 10 MG OR TABS 09/27/2022 Provider: CISCO VINCENT MD Diagnosis: Psychophysiologi c insomnia DIRECTED - ONE (1) TAB AT BEDTIME NEEDED FOR SLEEP Last Documented On 12/09/2022 5:29PM By Radha Vincent MD ; [facility] Alendronate Sodium 70 MG OR TABS 06/19/2022 Provider : Diagnosis: 1 tab weekly Last Documented On 12/09/2022 5:29PM By WISAM CASH ; [facility] Levothyroxine Sodium 100 MCG OR CAPS 04/14/2020 Prov ider: Diagnosis: 1 tab daily Last Documented On 12/09/2022 5:29PM By WISAM CASH ; [facility] Pantoprazole Sodium 40 MG OR TBEC 11/15/2019 Provide r: Diagnosis: 1 tab daily Last Documented On 12/09/2022 5:29PM By WISAM CASH ; [facility] Azelastine HCl 0.15% NA SOLN 08/21/2019 Provider: Diagnosis: 2 sprays in each nostril twice a day Last Documented On 12/09/2022 5:29PM By WISAM CASH ; [facility] Fluticasone Propionate 50 MCG/ACT NA SUSP 07/25/2018 Provider: Diagnosis: 2 sprays in each nostril daily Last Documented On 12/09/2022 5:29PM By WISAM CASH ; [facility] amLODIPine Besy-Benazepril HCl 5-10 MG OR CAPS 016 Provider: Diagnosis: 1 daily Last Documented On 12/09/2022 5:29PM By WILMER REDDY LPN ; [facility] Lipitor 20 MG OR TABS 11/10/2015 Provider: Diagnosis: 1 tablet every evening Last Documented On 12/09/2022 5:29PM By WILMER REDDY LPN ; [facility] Lasix 20 MG OR TABS 11/10/2015 Provider: Diagnosis: 1 tablet every morning Last Documented On 12/09/2022 5:29PM By WILMER REDDY LPN ; [facility] Aspirin 81 MG OR TABS 11/10/2015 Provider: Diagnosis: 1 tablet daily Last Documented On 12/09/2022 5:29PM By WILMER REDDY LPN ; [facility] Past Medications on file Dicyclomine HCl 10 MG Oral Capsule 09/14/2023 - 2023 Provider: Diagnosis: 1 capsule bid Last Documented On 09/14/2023 11:16AM By WISAM CASH ; [facility] hydrOXYzine HCl 25 MG Oral Tablet 04/09/2023 - 06/08/2023 Provider: EILEEN CONNORS MD Diagnosis: 1 TAB a DAY NEEDED ONLY FOR ITCHING/ANXIETY Last Documented On 04/09/2023 12:08PM By Radha Vincent MD ; [facility] hydrOXYzine HCl 25 MG OR TABS 10/08/2020 - 11/07/2020 Provider: EILEEN VINCENT MD Diagnosis: Generalized anxi ety disorder as directed - 1 tab a day as needed for agitation/anxiety Last Documented On 12/09/2022 5:29PM By Radha Vincent MD ; [facility] LaMICtal 150 MG OR TABS 09/24/2018 - 09/27/2018 Provider: EILEEN VINCENT MD Diagnosis: Bipolar disorder , unspecified One tablet twice a day Last Documented On 12/09/2022 5:29PM By Radha Vincent MD ; [facility] Atorvastatin Calcium 20 MG OR TABS 01/28/2013 - 2012 Provider: Diagnosis: Last Documented On 12/09/2022 5:29PM By TERRI CASH ; [facility] Medications Administered Includes: Administered Medications from this [...] esolved Last Documented On 9 1:33PM ; [facility] Sulfa Antibiotics Allergy 08/02/2012 A ctive Last Documented On 4 11:08AM ; [facility] Note: Imported from external source. Neupro Allergy rash 10/23/2013 Active Last Documented On 4 11:08AM ; [facility] Note: Imported from external source. Encounters Encounter Provider Location Date Check-In Time Check-Out Time Diagnosis * PHONE CALL EILEEN VINCENT MD [facility] 10/31/19 24 11:43AM 11:59PM Adult Attention Deficit Hyperactivity Disorder Insurance Includes: Active Insurance Policies Plan Name Member ID Group # Subscriber Relationship Effect kofi Dates 1 - [employer] [place] [id number] EDITH DARBY Self 2 - [facility] [id number] INGRID DARBY 0 - Unknown Clinical Notes Includes: Clinical Notes from this encounter * Progress note Date Encounter Last Documented by 10/31/2023 * PHONE CALL Last documented on 10/31/2023; 11:49 AM, EILEEN VINCENT MD; [facility] Active Problems & Conditions - [...] refill of Mydayis to be sent to [facility]. pt phone # for return call: [phone] date/initials: 10/31/2023 bk Current Medication - Alendronate [...] PREVIOUS PSYCHIATRIC HOSPITALIZATION: She was hospitalized at [facility] in 2008 due to depression; she said that she was suicidal then. She was also hospitalized at [place] at least twice from [id number]. She said again she could not remember the dates. PREVIOUS PSYCHIATRIC TREATMENT: She was under the care of Dr. Arciniega in [place]. PREVIOUS PSYCHIATRIC MEDICATIONS: Lexapro 20mg once a [...]
--- OUTSIDE RECORDS SUMMARY | 2024-10-06 15:37 | XMS_ITS ---
Author Organization [facility] Address [address] [place] [address] Phone Care Team Providers Care Needle Punch Operator Name Role Phone Emmett Carrizales MD Primary Care Provider [phone] Karolyn Tobar RN Unavailable Unavailable Ifrah Whitfield APRN, CNP Unavailable [phone] Ambulatory Complex Care Management Status:Enrolled (Active) Start date:06/07/2023 Enrollment date:06/07/2023 Current support & services provided:RN Care Managed Related social drivers of health:Intimate Partner Violence, Social Connections, Alcohol Use, Financial Resource Strain, Stress, Physical Activity, Food Insecurity, Transportation Needs, Housing Stability, Utilities Overview Complex Care Management Program Case Team Name Relationship Phone Karolyn Tobar RN Nurse Lifter/Driver(Responsible Staff) Continued Care and Services Coordination
--- OUTSIDE RECORDS SUMMARY | 2024-10-06 15:37 | XMS_ITS | Clinical Summary ---
Author Organization [facility] Address [address] [place] [address] Phone Care Team Providers Care Kettle Hand Name Role Phone RHIANNON DAI, EILEEN JJ Unavailable [phone] Reason for Visit and Chief Complaint * PHONE CALL Problems Includes: Problems addressed during this encounter and other active Problems All Visits Onset Date Resolved Date Provider Condition S tatus Depressive Disorder, Nos 04/13/2018 Active Last Documented On 3 5:51PM ; [facility] Adult Attention Deficit Hyperactivity Disorder 01/16/2017 Active Last Documented On 3 5:50PM ; [facility] Psychophysiological Insomnia 09/27/2016 Active Last Documented On 3 5:50PM ; [facility] Bipolar I Disorder 03/13/2015 Active Last Documented On 3 5:48PM ; [facility] Dementia 02/10/2015 Active Last Documented On 3 5:48PM ; [facility] Generalized Anxiety Disorder 02/10/2015 Active Last Documented On 3 5:48PM ; [facility] Mild Cognitive Impairment 02/10/2015 EILEEN VINCENT MD Active Last Documented On 3 5:01PM ; [facility] Restless Legs Syndrome 07/28/2013 Ac tive Last Documented On 3 5:48PM ; [facility] 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 EILEEN DE LA VEGA MD Active Last Documented On 3 5:01PM ; [facility] Hypothyroidism, unspecified 08/02/2012 Active Last Documented On 3 5:48PM ; [facility] Gastro-esophageal reflux disease without esophagitis 08/02 Active Last Documented On 3 5:48PM ; [facility] Fracture of Nasal Bones 08/02/2012 A ctive Last Documented On 3 5:42PM ; [facility] Hyperlipidemia, unspecified 08/02/2012 Active Last Documented On 3 5:48PM ; [facility] Essential (primary) hypertension 08/02/2012 Active Last Documented On 3 5:48PM ; [facility] Irritable bowel syndrome without diarrhea 08/02/2012 Active Last Documented On 3 5:48PM ; [facility] Plan of Treatment Future Appointments Date Time Location Provi [facility] TELEHEALTH ADULT PSYCH ESTABLISHED 12/24/2024 11:00AM [facility] VINCENT MD Last Documented On 5 4:04PM ; [facility] Assessments Includes: Assessments from this [...] 01/16/2024 10:52AM By Radha Vincent MD ; [facility] Mydayis 37.5 MG Oral Capsule Extended Release 24 Hour 01/01/2024 Provider: EILEEN VINCENT MD Diagnosis: Attention-defici t hyperactivity disorder, combined type TAKE ONE (1) CAPSULE BY MOUT H EACH MORNING Last Documented On 01/01/2024 5:57PM By Radha Vincent MD ; [facility] rOPINIRole HCl 2 MG Oral Tablet 12/19/2023 Provider: EILEEN VINCENT MD Diagnosis: Restless legs sy ndrome as directed 1 tablet at 5 pm in the evening for restless legs Last Documented On 12/19/2023 11:49AM By Radha Vincent MD ; [facility] Memantine HCl 5 MG Oral Tablet 12/12/2023 Provider: EILEEN VINCENT MD Diagnosis: Dem in oth dis c lassd elswhr,unsp sev,w/o beh/psych/mood/anx One tablet daily Last Documented On 12/12/2023 4:50PM By Radha Vincent MD ; [facility] rOPINIRole HCl 2 MG Oral Tablet 12/10/2023 Provider: VENTURA GERARDO Diagnosis: Last Documented On 12/19/2023 11:45AM By Radha Vincent MD ; [facility] Namzaric 28-10 MG Oral Capsule Extended Release 24 Hour 11/26/2023 Provider: EILEEN VINCENT MD Diagnosis: Dem in oth dis c lassd elswhr,unsp sev,w/o beh/psych/mood/anx TAKE ONE CAPSULE BY MOUTH EV HELLEN MORNING Last Documented On 11/26/2023 1:10PM By Radha Vincent MD ; [facility] Trintellix 10 MG Oral Tablet 11/13/2023 Provider: EILEEN VINCENT MD Diagnosis: Major depressive disorder, single episode, unspecified TAKE ONE (1) TABLET BY MOUTH DAILY Last Documented On 11/13/2023 10:08AM By Radha Vincent MD ; [facility] Belsomra 10 MG Oral Tablet 11/01/2023 Provider: EILEEN VINCENT MD Diagnosis: Psychophysiologi c insomnia DIRECTED 1 TABLET AT BEDT ELEAZAR NEEDED FOR SLEEP Last Documented On 11/01/2023 4:16PM By Radha Vincent MD ; [facility] buPROPion HCl ER (XL) 300 MG Oral Tablet Extended Release 24 Hour 08/24/2023 Provider: EILEEN VINCENT MD Diagnosis: Major depressive disorder, single episode, unspecified 1 tablet every morning Last Documented On 08/24/2023 10:15AM By Radha Vincent MD ; [facility] lamoTRIgine 150 MG Oral Tablet 08/24/2023 Provider: EILEEN VINCENT MD Diagnosis: TAKE ONE TABLET BY MOUTH TWO TIMES A DAY Last Documented On 08/24/2023 10:26AM By Radha Vincent MD ; [facility] Escitalopram Oxalate 20 MG [...] 04/18/2023 10:30AM By WISAM CASH ; [facility] Belsomra 10 MG Oral Tablet 03/19/2023 Provider: Diagnosis: Psychophysiologi c insomnia 1 tablet at bedtime as needed for sleep Last Documented On 03/19/2023 2:13PM By LETI WILSON ; [facility] Belsomra 10 MG OR TABS 09/27/2022 Provider: CISCO VINCENT MD Diagnosis: Psychophysiologi c insomnia DIRECTED - ONE (1) TAB AT BEDTIME NEEDED FOR SLEEP Last Documented On 12/09/2022 5:29PM By Radha Vincent MD ; [facility] Alendronate Sodium 70 MG OR TABS 06/19/2022 Provider : Diagnosis: 1 tab weekly Last Documented On 12/09/2022 5:29PM By WISAM CASH ; [facility] Levothyroxine Sodium 100 MCG OR CAPS 04/14/2020 Prov ider: Diagnosis: 1 tab daily Last Documented On 12/09/2022 5:29PM By WISAM CASH ; [facility] Pantoprazole Sodium 40 MG OR TBEC 11/15/2019 Provide r: Diagnosis: 1 tab daily Last Documented On 12/09/2022 5:29PM By WISAM CASH ; [facility] Azelastine HCl 0.15% NA SOLN 08/21/2019 Provider: Diagnosis: 2 sprays in each nostril twice a day Last Documented On 12/09/2022 5:29PM By WISAM CASH ; [facility] Fluticasone Propionate 50 MCG/ACT NA SUSP 07/25/2018 Provider: Diagnosis: 2 sprays in each nostril daily Last Documented On 12/09/2022 5:29PM By WISAM CASH ; [facility] amLODIPine Besy-Benazepril HCl 5-10 MG OR CAPS 016 Provider: Diagnosis: 1 daily Last Documented On 12/09/2022 5:29PM By WILMER REDDY LPN ; [facility] Lipitor 20 MG OR TABS 11/10/2015 Provider: Diagnosis: 1 tablet every evening Last Documented On 12/09/2022 5:29PM By WILMER REDDY LPN ; [facility] Lasix 20 MG OR TABS 11/10/2015 Provider: Diagnosis: 1 tablet every morning Last Documented On 12/09/2022 5:29PM By WILMER REDDY LPN ; [facility] Aspirin 81 MG OR TABS 11/10/2015 Provider: Diagnosis: 1 tablet daily Last Documented On 12/09/2022 5:29PM By WILMER REDDY LPN ; [facility] Past Medications on file Dicyclomine HCl 10 MG Oral Capsule 09/14/2023 - 2023 Provider: Diagnosis: 1 capsule bid Last Documented On 09/14/2023 11:16AM By WISAM CASH ; [facility] hydrOXYzine HCl 25 MG Oral Tablet 04/09/2023 - 06/08/2023 Provider: EILEEN CONNORS MD Diagnosis: 1 TAB a DAY NEEDED ONLY FOR ITCHING/ANXIETY Last Documented On 04/09/2023 12:08PM By Radha Vincent MD ; [facility] hydrOXYzine HCl 25 MG OR TABS 10/08/2020 - 11/07/2020 Provider: EILEEN VINCENT MD Diagnosis: Generalized anxi ety disorder as directed - 1 tab a day as needed for agitation/anxiety Last Documented On 12/09/2022 5:29PM By Radha Vincent MD ; [facility] LaMICtal 150 MG OR TABS 09/24/2018 - 09/27/2018 Provider: EILEEN VINCENT MD Diagnosis: Bipolar disorder , unspecified One tablet twice a day Last Documented On 12/09/2022 5:29PM By Radha Vincent MD ; [facility] Atorvastatin Calcium 20 MG OR TABS 01/28/2013 - 2012 Provider: Diagnosis: Last Documented On 12/09/2022 5:29PM By TERRI CASH ; [facility] Medications Administered Includes: Administered Medications [...] esolved Last Documented On 9 1:33PM ; [facility] Sulfa Antibiotics Allergy 08/02/2012 A ctive Last Documented On 4 11:08AM ; [facility] Note: Imported from external source. Neupro Allergy rash 10/23/2013 Active Last Documented On 4 11:08AM ; [facility] Note: Imported from external source. Encounters Encounter Provider Location Date Check-In Time Check-Out Time Diagnosis * PHONE CALL EILEEN VINCENT MD [facility] 4 4:10PM 11:59PM Insurance Includes: Active Insurance Policies Plan Name Member ID Group # Subscriber Relationship Effect kofi Dates 1 - [employer] [id number] LANA DARBY Self 2 - [facility] [id number], INGRID J 0 - Unknown Clinical Notes Includes: Clinical Notes from this encounter * Progress note Date Encounter Last Documented by 11/08/2023 * PHONE CALL Last documented on 11/08/2023; 5:55 PM, EILEEN VINCENT MD; [facility] Active Problems & Conditions - Adult [...] Namzaric? pt phone # for return call: [phone] Date/Initials: 11/08/23 db. Current Medication - Alendronate [...]
--- OUTSIDE RECORDS SUMMARY | 2024-10-06 15:37 | XMS_ITS | Encounter Summary ---
Author Organization [facility] Address [address] [place] [address] Phone Care Team Providers Care Medieval English Literature Professor Name Role Phone Emmett Carrizales MD Primary Care Provider [phone]- [phone] Karolyn Tobar RN Unavailable Unavailable Ifrah Whitfield APRN, APPLICATION SUPPORT ANALYST Unavailable [phone]- [phone] Encounter Details Date Type Department Care Team (Late st Contact Info) Description 04/23/2024 Transcribe Orders [facility] Scheduling [address] [place] [address] Emmett Carrizales MD [address] [place] [address] Social History Tobacco Use Types Packs/Day Years Used Date Smoking Tobacco: Never Passive Smoke Exposure: Never Smokeless Tobacco: Never Alcohol Use Standard Drinks/Week Comments Not Currently 0 (1 standard drink = 0.6 oz pur e alcohol) [facility] Utilities Answer Date Recorded In the [...] often do you attend chur ch or mormon services? Never 09/13/2023 Do you belong to any clubs o r organizations such as pentecostalism groups, unions, fraternal or athletic groups, or [...] Total Score - Questions 1-9 0 08/2023 [facility]ational Stress Questionnaire Answer Date [...] place to sleep or slept in a correction (including now)? No 09/13/2023 Education Answer Date [...] Care Team (Late st Contact Info) Description 01/26/2025 9:45 AM CDT Office Visit [facility] - Internal Medicine [place] [address] [place] [address] Emmett Carrizales MD [address] [place] [address] documented as of this encounter Goals Goal Patient Goal Type Associated Problems Recent Progress Patient-Stated? Author Prevent Falls and Injury Patient Goals On track(2024 11:16 AM HOIST CYLINDER LOADER) Yes Karolyn Tobar, RN Note: Follow Up [...] alert plan in case I fall - product picker clutter from the floors - use [...] Appointments Patient Goals On track(2024 11:16 AM HOIST CYLINDER LOADER) Yes Karolyn Tobar RN Note: Follow Up [...] Risk (Fall Risk) On track(2024 11:14 AM HOIST CYLINDER LOADER) Karolyn Wakefield RN Note: Evidence-based guidance: Assess [...] Total Score: 0 09/13/19 24 1:30 PM HOIST CYLINDER LOADER documented as of this encounter Care Teams Medieval English Literature Professor Relationship Specialty Start Date End Date Emmett Carrizales MD [address] [place] [address] PCP - General Internal Medicine 06/29/15 Tobar, Karolyn M, RN [place] Nurse Appliance Fixer 06/07/23 Ifrah Whitfield APRN, APPLICATION SUPPORT ANALYST #[address] [address] Nurse Practitioner Advanced Practice Nurse 03/06/22 documented as of this encounter
--- OUTSIDE RECORDS SUMMARY | 2024-10-06 15:38 | XMS_ITS | Clinical Summary ---
Author Organization [facility] Address [address] [place] [address] Care Team Providers Care Special Library Librarian Name Role Phone Emmett Carrizales MD Primary Care Provider [phone]- [phone] Allergies Active Allergy Reactions Criticality Noted Date [...] LEVOTHROID) 88 mcg tabletIndications :hypothyroidism 100 mcg campaign director before breakfast 1 8 Active prednisoLONE acetate [...] Malocclusion 07/20/2021 Nasal turbinate hypertrophy 07/20/2021 Temporomandibular menpv-ytzy-fqbezsmzmix syndrom e 07/20/2021 Mixed irritable bowel syndrome 07/20/2021 Other fatigue 06/01/2021 Incontinence of feces 12/29/2020 History of colonic polyps 10/25/2020 Overview (10/25/2020): Added automatically from request for surgery [id number] Encounter for screening colonoscopy 10/25/2020 Overview (10/25/2020): Added automatically from request for surgery [id number] BMI 30.0-30.9,adult 03/11/2020 Class 1 obesity due to exces s calories without serious comorbidity with body mass index (BMI) of 30.0 to 30.9 in adult 03/11/2020 Gastroesophageal reflux disease 09/11/2019 Overview (09/11/2019): Added automatically from request for surgery [id number] Assessment & Plan (03/11/2020 9:25 AM CDT): Doing well on pantoprazole daily. Says she does get breakthrough symptoms occasionally (maybe one weekly) but overall doing well. Continue pantoprazole daily. May use TUMS prn breakthrough symptoms. Continue to follow GERD diet. Assessment & Plan (09/16/2019 4:46 PM POWDER GUARD): Schedule EGD for further evaluation. Start Protonix daily instead of Pepcid. Follow-up in 6 months. Also discussed with the patient gastroesophageal reflux disease diet. Irritable bowel syndrome with diarrhea 9 Assessment & Plan (03/11/2020 9:24 AM CDT): Pt doing well on dicyclomine TID. She is having two normal BM's daily on this medication. Continue this medication. Assessment & Plan (09/16/2019 4:46 PM POWDER GUARD): Overall her symptoms has improved and less diarrhea with Bentyl twice daily. Will continue to follow on the pattern for symptoms. Assessment & Plan (08/22/2018 12:26 PM POWDER GUARD): Doing well with Dicyclomine Adult attention deficit hyperactivity disorder 0 01/16/2017 Psychophysiological insomnia 09/27/2016 Lumbar spinal stenosis 03/08/2016 Severe bipolar I disorder, m ost recent episode depressed ([facility]) 06/29/2015 Bipolar I disorder 03/13/2015 Generalized anxiety disorder 02/10/2015 Mild cognitive impairment 02/10/2015 Periodic limb movement sleep disorder 07/28/2013 Sleep apnea 04/14/2013 Overview (07/20/2021): nonorganic nonorganic Hypothyroidism, unspecified 08/02/2012 Essential hypertension, benign 08/02/2012 Fracture of nasal bones 08/02/2012 Other and unspecified hyperlipidemia 08/02/2012 Encounters Date Type Department Care Team Description 09/18/2024 Telephone [facility] Gastroenterology at [address] [place] [address] Tiffany Florez MA from Last 3 Months Immunizations Immunization Administration Dates Next Due Flucelvax Influenza Quad [...] Frequency of Binge Drinking Not on file 0610/2023 PHQ-2 Answer Date Recorded PHQ-2 Score 0 09/11/2019 Personal Safety Answer Date Recorded Have you ever been in or are you currently in a harmful physical or emotional relationship or is someone making you feel afraid or unsafe? Denies 11/10/2022 Comments Unknown Sex and Gender Information Value Date Recorded Sex Assigned at Not on file Legal Sex Female 12:20 AM POWDER GUARD Gender Identity Not on file Sexual Orientation Not on file Obstetrics History Last Filed Vital Signs Vital Sign Reading Time Taken Comments Blood Pressure 144/86 05/26/2024 11:52 AM CDT Pulse 87 05/26/2024 11:52 AM CDT Temperature 36.4 C (97.6 F) 05/26/2024 11:52 AM CDT Respiratory Rate 18 05/26/2024 11:52 AM CDT [...] Assessment 08/18/2022 08/18/2021, 09/11/19 20 Covid-19 Vaccine (2023- 5 season) 2024 03/23/2021, 11/18/2020, 10/19/2020 Influenza [...] 10/08/2015, 10/08/2015 Pneumococcal vaccine 65+ Completed 06/15/2022, 09/2020 Zoster Vaccine Completed 08/15/2022, 03/14/2022 Procedures [...] Female Attending MD: Sierra Mcgarry M.D. Room: [facility] ENDOSCOPY ROOM 1 Note Status: Finalized Patient [...] under direct vision. The Pediatric Colonoscope PCF-H190L [id number] was introducedthrough the anus and advanced to [...] 12:44 PM Procedure Code(s): --- Professional --- 59011, Colonoscopy, flexible; with removal of tumor(s), polyp(s), or other lesion(s) by snare technique 14445, 59, Colonoscopy, flexible; with biopsy, single or multiple Diagnosis Code(s): --- Professional --- Z86.010, Personal history of colonic polyps K64.8, Other hemorrhoids K63.5, Polyp of colon K62.1, Rectal polyp CPT copyright 2019 [employer]. All rights reserved. The codes documented in this report are preliminary and upon certified medical coder reviewmay be revised to meet current compliance requirements. Recognized by the [employer] for promoting quality in endoscopy Sierra Mcgarry MD ENDOSCOPY PROCEDURES Final Result from Last 3 Months or Most Recently Relevant to Health Maintenance Insurance [employer] MED[employer]ARE HMO [facility] [place] [address] [facility] MEDICARE HMO [address] FEDERAL Advance Directives For more information, please contact: [phone] * Full Code (Latest Code Status on File) Date Activated Date Inactivated Comments 12/01/2020 12:33 PM 12/01/2020 6:56 PM * Full Code Date Activated Date Inactivated Comments 10/29/2019 7:38 AM 10/29/2019 1:35 PM * Full Code Date Activated Date Inactivated Comments 10/29/2019 7:38 AM 10/29/2019 7:38 AM Care Teams Special Library Librarian Relationship Specialty Start Date End Date Emmett Carrizales MD [address] [place] [address] PCP - General Internal Medicine 08/10/21
--- OUTSIDE RECORDS SUMMARY | 2024-10-06 15:38 | XMS_ITS | Data Portability ---
Author Organization [place] - [facility], Main Office Address [address] [place] [address] Care Team Providers Care Wire Frame Dipper Name Role Phone BETSY VALENCIA Primary Care Provider BETSY VALENCIA Referring Provider Assessment Encounter Date Assessment Date Assessment LastModified by Organization Details LastModified Time 12/31/2023 12/31/2023 This note is dictated and transcribed by [employer]. [employer] variances may occur. Despite proofreading, typographical errors may occur. Occasional wrong-word or 'yjesb-s-zign' substitutions may have occurred due to the inherent limitations of voice recording. Read the chart carefully and recognize, using context, where substitutions have occurred. Not available 12/31/2023 09:40:11 01/10/2024 01/10/2024 This note is dictated and transcribed by [employer]. [employer] variances may occur. Despite proofreading, typographical errors may occur. Occasional wrong-word or 'oxgwq-f-hbsp' substitutions may have occurred due to the inherent limitations of voice recording. Read the chart carefully and recognize, using context, where substitutions have occurred. Not available 01/10/2024 10:15:52 03/11/2024 03/11/2024 This note is dictated and transcribed by [employer]. [employer] variances may occur. Despite proofreading, typographical errors may occur. Occasional wrong-word or 'pvyru-n-mxcd' substitutions may have occurred due to the inherent limitations of voice recording. Read the chart carefully and recognize, using context, where substitutions have occurred. Not available 03/11/2024 11:30:32 03/25/2024 03/25/2024 This note is dictated and transcribed by [employer]. [employer] variances may occur. Despite proofreading, typographical errors may occur. Occasional wrong-word or 'jvhel-d-ugtz' substitutions may have occurred due to the inherent limitations of voice recording. Read the chart carefully and recognize, using context, where substitutions have occurred. Not available 03/25/2024 13:35:53 04/22/2024 04/22/2024 This note is dictated and transcribed by [employer]. [employer] variances may occur. Despite proofreading, typographical errors may occur. Occasional wrong-word or 'bgeho-r-xyfo' substitutions may have occurred due to the inherent limitations of voice recording. Read the chart carefully and recognize, using context, where substitutions have occurred. Not available 04/22/2024 13:36:02 Plan of Treatment Reminders Order Date Submit Date Provider Last Modified By Organization Details Last Modified Time Details Appointments None recorded. Lab None recorded. Referral None recorded. Procedures None recorded. Surgeries None recorded. Imaging XR, ankle, 3 or more view 2023 024 [email or web address] 7 [facility] [place], [facility], [address], [place], [address], 13:38:30 XR, ankle, 3 or more view 2023 024 [email or web address] 7 [facility] [place], [address], [address], [place], [address], 13:36:39 XR, ankle, 3 or more view 2023 024 [email or web address] 7 [facility] [place], [address], [address], [place], [address], 13:08:22 XR, foot, 3 or more view 2023 024 [email or web address] [facility] [place], [facility] [facility] [address], [place], [address], 10:59:18 Medication Orders mupirocin 2 % topical ointment 2023 024 [facility], [address], [place], [address], 11:31:43 amoxicillin 500 mg tablet 2023 024 [facility] [address], [place], [address], 09:43:36 Patient TargetsNo targets recorded. Patient Instructions Encounter Date Encounter Id Patient Instructions Last Modified By Organization Details Last Modified Time 03/11/2024 [id number] paronychia: care instructions ovi Not available 03/11/2024 11:31:42 Reason for Referral None Reported. Results Created Date Observation Date Name Description Value Unit Range Abnormal Flag Note LastModifiedBy Organization Detail LastModifiedTime 12/20/19 24 XR, foot, 3 or more view No observ ation record ed. [email or web address] [facility] [place] [address], [place], [address], 12/20/2023 09:13:56 12/31/19 24 XR, foot, 3 or more view No observ ation record ed. [email or web address] [facility] [place] [address], [place], [address], 12/31/2023 09:40:29 03/11/20 24 XR, ankle , 3 or more view No observ ation record ed. [email or web address] [facility] [place] [address], [address], [place], [address], 03/11/2024 13:08:21 03/25/20 24 XR, ankle , 3 or more view No observ ation record ed. [email or web address] [facility] [place] [address], [address], [place], [address], 03/25/2024 13:36:34 04/22/20 24 XR, ankle , 3 or more view No observ ation record ed. [email or web address] [facility] [place] [address], [address], [place], [address], 04/22/2024 13:38:30 Result Notes None recorded. Problems Name Problem SNOMED Code Status Onset Date Resolution Date Notes Provider Name and Address Organization Details Recorded Time Hammer toe 045379746 Active 2019 Not Available [facility] 3 22:06:35 Hyperchole sterolemia 45369047 Active Not Available [facility] 3 22:06:35 Postoperat kofi visit 041303730 Active 2019 Not Available [facility] 3 22:06:35 Unable to cut own toenails 363661981 Active 2021 Not Available [employer] 3 22:06:35 Pain in toe 536396663 Active 2021 Not Available [facility] 3 22:06:35 Pain of toe of left foot 0550430213985 08 Active 2022 Not Available [facility] 3 22:06:36 Hypertensi ve disorder 42076537 Active Not Available [facility] 3 22:06:36 Ingrowing toenail 496841341 Active 2021 Not Available [employer] 3 22:06:36 Foot pain 49837261 Active 2019 Not Available [employer] 3 22:06:36 Dystrophia unguium 70103275 Active 2022 Not Available [facility] 3 22:06:36 Acquired hallux limitus of right great toe 5850528623488 100 Active 2022 Naveed Lala, DPM [address], [address], [place], [address] , [employer] 3 09:52:36 Hammer toe 764603762 Active 2022 Naveed Lala DPM [address], [address], [place], [address] , [employer] 3 09:53:00 Foot callus 979252714 Active 2022 Naveed Lala DPM [address], [address], [place], [address] , [employer] 3 09:53:10 Bunion 451655211 Active 2023 Naveed Lala DPM [address], [address], [place], [address] , [employer] 4 10:56:10 Bunion 135120402 Active 2023 Naveed Lala DPM [address], [address], [place], [address] , [employer] 4 10:56:17 Pain in both feet 6576123984868 9102 Active 2023 Naveed Lala DPM [address], [address], [place], [address] , [employer] 4 10:56:22 Callosity on toe 485147616 Active 2023 Naveed Lala DPM [address], [address], [place], [address] , [employer] 4 10:56:36 Acute postoperat kofi pain 7464338706717 05 Active 2023 Naveed Lala DPM [address], [address], [place], [address] , [employer] [facility] [employer] 4 09:11:28 Postoperat kofi care Active 2023 Naveed Lala DPM [address], [address], [place], [address] , [employer] [facility] [employer] [facility] 4 09:12:00 Ingrowing nail of toe of right foot 7235294395102 9102 Active 2023 Naveed Lala DPM [address], [address], [place], [address] , [facility] [employer] [facility] [employer] [facility] 4 11:30:59 Closed bimalleola r fracture of left ankle 1280272335272 9103 Active 2023 Naveed Lala DPM [address], [address], [place], [address] , [employer] [facility] [employer] [facility] 4 11:32:43 Swelling of bilateral lower limbs 202823926 Active 2023 Naveed Lala DPM [address], [address], [place], [address] , [employer] [facility] [employer] 4 12:22:19 Problem Notes None recorded. Procedures Surgical History Date Name Laterality Status Provider Name and Address Organization Details Recorded Time 4 Partial Nail [employer] Matrixectomy-Ri ght completed Naveed Lala DPM [address], [address], [place], [address], [facility] [employer] [facility] [employer] [facility] 03/11/2024 11:29:59 4 Suture Removal completed Naveed Lala DPM [address], [address], [place], [address], [facility] [employer] [facility] [employer] [facility] 01/10/2024 10:15:37 4 Nail Debridement completed Naveed Lala DPM [address], [address], [place], [address], [facility] [employer] [facility] [employer] [facility] 12/11/2023 12:40:15 4 Nail Debridement completed Naveed Lala DPM [address], [address], [place], [address], [facility] [employer] [facility] [employer] [facility] 09/24/2023 11:25:50 4 Callus Debridement 2-4 completed Naveed Lala DPM [address], [address], [place], [address], [employer] [facility] [employer] 09/24/2023 12:47:17 3 Nail Debridement completed Naveed Lala DPM [address], [address], [place], [address], [facility] [employer] [facility] [employer] 06/21/2023 10:11:41 3 Nail Debridement completed Naveed Lala DPM [address], [address], [place], [address], [employer] [facility] [employer] 03/19/2023 09:52:23 3 Callus Debridement 2-4 completed Naveed Lala DPM [address], [address], [place], [address], [employer] [facility] [employer] 03/19/2023 09:52:20 3 Nail Debridement completed Naveed Lala DPM [address], [address], [place], [address], [employer] [facility] [employer] 12/11/2022 10:01:29 Imaging Results Imaging Date Name Status LastModified by Organ [facility] Details LastModified Time 12/20/2023 XR, foot, 3 or more view completed [email or web address] [place] [address] [facility] [place] [address], [place], [address], 12/20/2023 09:13:56 12/31/2023 XR, foot, 3 or more view completed [email or web address] [place] [address] [facility] [place] [address], [place], [address], 12/31/2023 09:40:29 03/11/2024 XR, ankle, 3 or more view completed [email or web address] [place] [address] [facility] [place] [address], [address], [place], [address], 03/11/2024 13:08:21 03/25/2024 XR, ankle, 3 or more view completed [email or web address] [facility] [place] [address], [address], [place], [address], 03/25/2024 13:36:34 04/22/2024 XR, ankle, 3 or more view completed [email or web address] [facility] [place] [address], [address], [place], [address], 04/22/2024 13:38:30 Procedure Notes None recorded. Medical Equipment None Reported. Allergies Allergen ID Allergen Name Allergen Category Reaction Reaction Severity Criticality Documentation Date Start Date Code Code System Note Provider Name and Address Organization Details Recorded Time 31909 Substance with sulfonami de structure and antibacte rial mechanism of action (substanc e) medicatio n Not available Not available Not available 10/11/2022 95769 8003 SNOMED Not Available [facility] 22:07:26 Medications Name Sig Start Date Stop Date Status Note LastModified by Organization Details LastModified Time amoxicillin 500 mg capsule active Not Available Not Available Not Available lamotrigine 150 mg tablet TAKE ONE TABLET BY MOUTH TWO TIMES A DAY active Not Available Not Available No t Available atorvastati n 20 mg tablet TAKE ONE TABLET BY MOUTH DAILY LAST REFILL UNTIL SEEN active Not Available Not Available No t Available ropinirole 1 mg tablet DIRECTED -- 1/2 TAB IN THE EVENING FOR 1 WEEK THEN 1 TAB IN THE EVENING THEREAFTE R FOR RESTLESS LEGS 12/09 completed Not Available Not Available Not Available trazodone 50 mg tablet TAKE 1 OR 2 TABLETS BY MOUTH AT BEDTIME NEEDED SLEEP active Not Available Not Available No t Available azithromyci n 250 mg tablet 05/22 completed Not Available Not Available Not Available fosfomycin tromethamin e 3 gram oral packet 12/19 completed Not Available Not Available Not Available hydrocodone 5 mg-acetamin ophen 325 mg tablet 12/09 completed Not Available Not Available Not Available phenazopyri dine 200 mg tablet 12/09 completed Not Available Not Available Not Available ondansetron HCl 4 mg tablet TAKE ONE TABLET BY MOUTH EVERY 6 HOURS 12/09 completed Not Available Not Available Not Available alendronate 70 mg tablet active Not Available Not Available Not Available ciprofloxac in 250 mg tablet 12/09 completed Not Available Not Available Not Available amoxicillin 500 mg tablet Take 1 tablet every 8 hours by oral route as directed for 7 days. 2023 active Not Available Not Available Not Avai lable ciclopirox 8 % topical solution 12/09 completed Not Available Not Available Not Available levothyroxi ne 100 mcg tablet TAKE ONE TABLET BY MOUTH DAILY TAKE MEDICATIO N 30-60 MINUTES BEFORE OTHER MEDICATIO N OR FOOD. active Not Available Not Available No t Available oxycodone-a cetaminophe n 5 mg-325 mg tablet TAKE 1 TABLET BY MOUTH EVERY 4 HOURS NEEDED FOR PAIN 12/30 completed Not Available Not Available Not Available levothyroxi ne 88 mcg tablet 12/09 completed Not Available Not Available Not Available famotidine 20 mg tablet 12/09 completed Not Available Not Available Not Available prednisolon e acetate 1 % eye drops,suspe nsion INSTILL ONE DROP INTO THE LEFT EYE ONCE A DAY 12/09 completed Not Available Not Available Not Available amlodipine 5 mg-benazepr il 10 mg capsule TAKE ONE CAPSULE BY MOUTH DAILY LAST REFILL UNTIL SEEN active Not Available Not Available No t Available benzonatate 100 mg capsule TAKE 1 CAPSULE BY MOUTH THREE TIMES DAILY FOR 5 DAYS NEEDED FOR COUGH 12/09 completed Not Available Not Available Not Available ropinirole 2 mg tablet active Not Available Not Available Not Available cephalexin 500 mg capsule TAKE 1 CAPSULE BY MOUTH 2 TIMES A DAY FOR 7 DAYS 12/09 completed Not Available Not Available Not Available pantoprazol e 40 mg tablet,nely yed release TAKE 1 TABLET (40 MG TOTAL) BY MOUTH DAILY active Not Available Not Available No t Available omeprazole 20 mg capsule,del ayed release active Not Available Not Available Not Available hydroxyzine HCl 25 mg tablet TAKE 1 OR 2 TABLETS BY MOUTH NEEDED FOR AGITATION /ANXIETY 12/09 completed Not Available Not Available Not Available mupirocin 2 % topical ointment APPLY A SMALL AMOUNT TO THE AFFECTED AREA right great toe BY TOPICAL ROUTE 3 TIMES PER DAY 2023 active Not Available Not Available Not Avai lable furosemide 20 mg tablet TAKE ONE TABLET BY MOUTH EVERY MORNING LAST REFILL UNTIL SEEN active Not Available Not Available No t Available azelastine 137 mcg (0.1 %) nasal spray 12/09 completed Not Available Not Available Not Available methylpredn isolone 4 mg tablets in a dose pack 05/22 completed Not Available Not Available Not Available albuterol sulfate HFA 90 mcg/actuati on aerosol inhaler INHALE 2 PUFFS BY MOUTH FOUR TIMES DAILY NEEDED FOR SHORTNESS OF BREATH OR WHEEZING 12/19 completed Not Available Not Available Not Available fluticasone propionate 50 mcg/actuati on nasal spray,suspe nsion 1 SPRAY NASAL DAILY ADMINISTE R INTO EACH NOSTRIL 12/09 completed Not Available Not Available Not Available dicyclomine 10 mg capsule TAKE 1 CAPSULE (10 MG TOTAL) BY MOUTH 3 (THREE) TIMES A DAY BEFORE MEALS. active Not Available Not Available No t Available naproxen 500 mg tablet active Not Available Not Available Not Available amoxicillin 875 mg-potassiu m clavulanate 125 mg tablet 05/06 completed Not Available Not Available Not Available buspirone 15 mg tablet TAKE ONE TABLET BY MOUTH THREE TIMES A DAY active Not Available Not Available No t Available enoxaparin 40 mg/0.4 mL subcutaneou s syringe 12/09 completed Not Available Not Available Not Available escitalopra m 20 mg tablet TAKE ONE TABLET BY MOUTH DAILY active Not Available Not Available No t Available bupropion HCl XL 300 mg 24 hr tablet, extended release TAKE ONE TABLET BY MOUTH EVERY MORNING active Not Available Not Available No t Available memantine 5 mg tablet active Not Available Not Available No t Available nitrofurant oin monohydrate /macrocryst als 100 mg capsule 12/09 completed Not Available Not Available Not Available aspirin active Not Available Not Avail able Not Available FeroSul 325 mg (65 mg iron) tablet TAKE ONE TABLET BY MOUTH DAILY active Not Available Not Available No t Available azelastine 205.5 mcg (0.15 %) nasal spray 2 SPRAY INTRANASA L TWO TIMES A DAY ADMINISTE R INTO EACH NOSTRIL 12/09 completed Not Available Not Available Not Available Belsomra 10 mg tablet active Not Available Not Available No t Available Namzaric 28 mg-10 mg capsule sprinkle,ex tended release TAKE ONE CAPSULE BY MOUTH EVERY MORNING active Not Available Not Available No t Available Trintellix 10 mg tablet active Not Available Not Available Not Available Mydayis 37.5 mg capsule extended release 24 hr TAKE ONE CAPSULE BY MOUTH EVERY MORNING active Not Available Not Available No t Available Fluad 65yr up(PF)45 mcg(15 mcgx3)/0.5 mL intramuscul ar syringe 12/09 completed Not Available Not Available Not Available Vitals Date Recorded Body height Body mass index (BMI) Body weight Heart rate Respiratory rate Oxygen saturation Oxygen saturation in Arterial blood by Pulse oximetry Systolic blood pressure Diastolic blood pressure Provider Name and Address Organization Details Last Updated DateTime 4 160.02 cm 28.3 kg/m2 74127.7 8 g 83 /min 14 /min 98 % 98 % 146 mm[Hg] 87 mm[Hg] Tamiko Bernstein [facility] [employer] [facility] 4 09:28:40 Date Recorded Body height Body mass index (BMI) Body weight Heart rate Respiratory rate Oxygen saturation Oxygen saturation in Arterial blood by Pulse oximetry Systolic blood pressure Diastolic blood pressure Provider Name and Address Organization Details Last Updated DateTime 4 160.02 cm 28.3 kg/m2 46434.7 8 g 81 /min 14 /min 98 % 98 % 150 mm[Hg] 78 mm[Hg] Tamiko Bernstein [facility] [employer] [facility] 4 09:12:33 Date Recorded Body height Heart rate Body mass index (BMI) Body weight Systolic blood pressure Diastolic blood pressure Provider Name and Address Organization Details Last Updated DateTime 4 160.02 cm 76 /min 28.3 kg/m2 24454.7 8 g 160 mm[Hg] 95 mm[Hg] Andra Gallagher [facility] [employer] [facility] 4 10:58:47 Date Recorded Body height Body mass index (BMI) Body weight Heart rate Respiratory rate Body temperature Oxygen saturation Oxygen saturation in Arterial blood by Pulse oximetry Systolic blood pressure Diastolic blood pressure Provider Name and Address Organization Details Last Updated DateTime 4 160.02 cm 28.3 kg/m2 13369.7 8 g 76 /min 14 /min 98 [degF] 98 % 98 % 130 mm[Hg] 88 mm[Hg] Berenice ZAVALA - [employer] [facility] 4 12:28:15 Date Recorded Body height Body mass index (BMI) Body weight Heart rate Oxygen saturation Oxygen saturation in Arterial blood by Pulse oximetry Systolic blood pressure Diastolic blood pressure Provider Name and Address Organization Details Last Updated DateTime 4 160.02 cm 28.3 kg/m2 80392.7 8 g 74 /min 99 % 99 % 132 mm[Hg] 86 mm[Hg] SHAILESH Wilson [place] [facility] [employer] [facility] 4 11:18:29 Social History None recorded. Functional Status None recorded. Mental Status None recorded. Family History Relationship Description Onset Age of this Age Resolved Age Notes LastModified by Organization Details LastModified Time Mother Malignant tumor of lung juan j Not available 03/13 12:29:44 Medical History No medical history recorded. Gynecological HistoryNo gynecological history recorded. Obstetrics History GPAL:G 0 P 0 0 0 0 Past Encounters Encounter ID Performer Location Encounter Start Date Encounter Closed Date Diagnosis/Indication Diagnosis SNOMED-CT Code Diagnosis ICD10 Code Diagnosis Note [id number] [facility] [place] [address] [place] [address] 02/06/2022 00:00:00 02/06/2022 13:26:56 [id number] [facility] [place] [address] [place] [address] 05/22/2022 00:00:00 05/22/2022 14:00:27 [id number] [facility] [place] [address] [place] [address] 08/24/2022 00:00:00 08/24/2022 15:22:05 [id number] Naveed Lala DPM [facility] [place] [address] [place] [address] 12/11/2022 09:38:08 12/11/2022 10:06:20 Dystrophia unguium 30723685 L60.3 Nails 1 through 10 were debrided with sharp mechanical debridemen t without incident. Nails were debrided and greater than 50% length and thickness where needed. Pain in toe 993022779 M7 9.675 M79.674 Secondary to toenails Unable to cut own toenails 286672957 Z74.1 broken arm left [id number] Naveed Lala DPM [facility] [place] [address] [place] [address] 03/19/2023 09:33:47 03/19/2023 10:10:28 Acquired hallux limitus of right great toe 6797725504 691975 M20.5X1 Rx custom orthoticsC ontinue supportive shoe gearDenies surgeryfol low-up as needed Hammer toe 998347022 M20 .40 bilateral as above Dystrophia unguium 45640 009 L60.3 Nails 1 through 10 were debrided with sharp mechanical debridemen t without incident. Nails were debrided and greater than 50% length and thickness where needed. Foot callus 760812117 L8 4 debrided without incidentus e pumice stone on the area daily to prevent build-up in recurrence recommend wide shoe gear- educated on different shoe gear Unable to cut own toenails 371341231 Z74.1 [id number] Naveed Lala DPM [facility] [place] [address] [place] [address] 06/21/2023 09:43:48 06/21/2023 10:20:32 Dystrophia unguium 83809999 L60.3 Nails 1 through 10 were debrided with sharp mechanical debridemen t without incident. Nails were debrided and greater than 50% length and thickness where needed.Fol low-up 3 months as needed Pain in toe 216269340 M7 9.675 M79.674 Secondary to toenails Unable to cut own toenails 061256338 Z74.1 [id number] Naveed Lala DPM [facility] [place] [address] [place] [address] 09/24/2023 10:20:11 09/25/2023 14:03:07 Pain in both feet 6768071236 [id number] M79.671 M79.672 obtain surgical clearanceP david for surgery and early [place]urg[place] l clearance to be obtained December 09 Hammer toe 408278673 M20 .40 left 2nd and 5th- plan arthrodesi s left 2nd toe with arthroplas ty Derotation 5thright 2nd- plan arthroplas ty 2nd toe right Bunion 555878301 M21.61 9 right- distal Chevron osteotomy with possible Ritesh Callosity on toe 0370834 01 L84 lateral left 5th Pain in toe 765989050 M7 9.675 M79.674 Secondary to toenails [id number] Naveed Lala DPM [facility] [place] [address] [place] [address] 12/10/2023 15:50:46 12/11/2023 16:20:37 Pain in both feet 4924484587 [id number] M79.671 M79.672 obtain surgical clearanceP david for surgery and early [place]urgica l clearance to be obtained December 09- left foot hammertoe surgery Hammer toe 774419673 M20 .40 left 2nd,3rd and 5th- plan arthrodesi s left 2nd toe with arthroplas ty left third and Derotation arthroplas ty 5thright 2nd- plan arthroplas ty 2nd toe right Bunion [id number] M21.61 9 right- distal Chevron osteotomy with possible Ritesh Callosity on toe [id number] 01 L84 lateral left 5th Pain in toe [id number] M7 9.675 M79.674 Secondary to toenails Ingrowing toenail 923676 009 L60.0 right lateral great toe - noninfecte dslant back procedure performedw ound care recommende d daily to prevent wounds and infection presents will not be able to perform surgery until healed [id number] Naveed Lala DPM [facility] Pod[facility] [place] [address] [place] [address] 12/20/2023 08:35:55 12/20/2023 09:37:39 Postoperative care [id number] Z48.89 s/p 3 daycontinu e postop shoeKeep dressings clean and dry for 1 weekmonito r for signs of infection to the foot at present seek medical attention immediatel yX-rays reviewed with the patient Hammer toe 218893820 M20 .40 left 2nd,3rd and 5th- plan arthrodesi s left 2nd toe with arthroplas ty left third and Derotation arthroplas ty 5th [id number] Naveed Lala DPM [facility] Podiatry [place] [address] [place] [address] 12/31/2023 09:21:35 02/07/2024 14:03:08 Postoperative care [id number] Z48.89 s/p Ten dayscontin ue postop shoeKeep dressings clean and dry for 1 weekmonito r for signs of infection to the foot at present seek medical attention immediatel yX-rays reviewed with the patientfol low-up 1 week Hammer toe 511247829 M20 .40 left 2nd,3rd and 5th- plan arthrodesi s left 2nd toe with arthroplas ty left third and Derotation arthroplas ty 5th [id number] Naveed Lala DPM [facility] Podiatry [address], [address] [address] 01/10/2024 08:54:04 01/10/2024 11:49:57 Postoperative care [id number] Z48.89 s/p 3 weekssutur es removedcon tinue postop shoeno further dressings needed keep clean and coveredmon itor for signs of infection to the foot at present seek medical attention immediatel yX-rays reviewed with the patientfol low-up 2-3 weeks- x-rays at that time Hammer toe 446973508 M20 .40 left 2nd,3rd and 5th- plan arthrodesi s left 2nd toe with arthroplas ty left third and Derotation arthroplas ty 5th [id number] Naveed Lala DPM [facility] [place] [address] [address] 03/11/2024 10:45:23 03/11/2024 14:59:12 Ingrowing nail of toe of right foot [id number] 6373463 L60.0 lateral corner right great toenail non-infect edwound care instructio aurea givenDress ing instructio ns reviewedpa rtial matrixecto my todayfollo w-up 2 weeks Closed bim alleolar fracture of left ankle [id number] 4951309 S82.845A obtain new x-rayscont inue cam boot with protected weight-ivy ringrice therapy Postoperative care 40015 9007 Z48.89 s/p another surgeon left anklestatu s post 6 weeks [id number] Naveed Lala DPM [facility] [address], [address] [address] 03/25/2024 12:05:36 03/25/2024 14:27:42 Closed bimalleolar fracture of left ankle [id number] 6628921 S82.845A obtain new x-rayscont in cam boot with protected weight-ivy ringrice therapy [id number] Naveed Lala DPM [facility]ry [address], [facility] [address] [place] [address] 04/22/2024 11:16:18 04/22/2024 15:16:56 Closed bimalleolar fracture of left ankle [id number] 3306167 S82.845A xrays reviewed with the patient- no strenuous activities - may change to normal shoe gearrice therapyfol low up as needed Health Concerns Section Related Observation LastModified by Organization Detai ls LastModified Time None Recorded Concern Status LastModified by Organization Details LastModified Time None Recorded Advance Directives Directive None Recorded Payers Encounter Date Sequence Insurance Name Policy Number Policy Dietrich Covered Member ID Dietrich Member ID Guarantor Name 12/31/2023 1 [employer] - G[employer]US (MEDICARE REPLACEMENT HMO) Lana Lockwood [id number] Lana Lockwood 12/31/2023 2 [place] 106 Flore[address] Lockwood [id number] Lana Lockwood 01/10/2024 1 [employer] - [place] (MEDICARE REPLACEMENT HMO) Lana Lockwood [id number] Lana Lockwood 01/10/2024 2 [place] 106 Florencio Lockwood [id number] Lana Lockwood 03/11/2024 1 [employer] - [place] [employer]US (MEDICARE REPLACEMENT HMO) Lana Miller Fabián [id number] Lana R Fabián 03/11/2024 2 [facility] 106 Florenc[address] Ardon Fabián [id number] Lana Miller Fabián 03/25/2024 1 [employer] - [employer]US (MEDICARE REPLACEMENT HMO) Lana Miller Fabián [id number] Lana Miller Fabián 03/25/2024 2 [facility] PRO[facility] (PPO) 106 Flore[address] Ardon Fabián [id number] Lana Miller Fabián 04/22/2024 1 [employer] - [employer] PLUS (MEDICARE REPLACEMENT HMO) Lana Miller Fabián [id number] Lana Miller Fabián 04/22/2024 2 [facility]: FEDERAL EMPLOYEE PROGRAM (PPO) 106 Flore[address] Ardon Fabián [id number] Lana R Fabián Notes Date Note Type Note Provider Name and Address Organization Details Recorded Time 12/31/2023 text/html . Patient is a 73-year-old female who presents the office for follow-up on hammertoe correction of the left foot. Patient states that she did go to [facility] and she put socks on her foot and when she pulled the sock off she pulled the pin of the 2nd toe. Patient does have some mild plantar flexion of the toe at the proximal interphalangeal joint. Patient states she does not have any pain her incision areas are healing well with no signs of infection. Patient denies any calf pain. Patient states she did try to stick the pin back in her toe I did explain that she should not have done this as this could introduce bacteria into the toe. Patient will be started on some oral antibiotics to prevent any infection. Patient denies any other complaints. Naveed Lala DPM [address] [facility], [facility] [address], [place], [address], [facility] [employer] 01/03/2024 14:18:12 01/10/2024 text/html . Patient is a 73-year-old female who returns status post 3 weeks for correction hammertoes. patient overall is doing well. Patient still has the K-wire intact to the 3rd toe. Patient denies any signs of infection. Patient's incisions are healed she is here for suture removal today. Patient denies any pain. Patient denies any other complaints. Naveed Lala DPM [address], [place], [address], [employer] [facility] 01/10/2024 10:16:45 03/11/2024 text/html . Patient is a 73-year-old female who returns to my office for follow-up on right great toe pain. Patient states she is here for partial matrixectomy of the lateral corner the right great toenail. Patient has a mild bunion which causes pressure to the 2nd toe and has pain without infection. Patient states due to the incurvated nail she would like to have it removed to prevent recurrence pain and ingrown toenails. Patient states that while she was on vacation in [place] she fell down a flight of stairs causing ankle fracture of her left ankle. Patient states this injury occurred approximately 6 weeks ago. Patient has been discharged from her orthopedic in [place] and sent for follow-up here. Patient has a well healed incision with mild swelling laterally. Patient presents in a walking boot with a walker and has mild pain with walking. Patient has hardware at the medial ankle and fibula. Patient denies any acute signs of infection to the area. Patient denies any other complaints. Naveed Lala DPM [address], [place], [address], [facility] 03/11/2024 13:09:35 03/25/2024 text/html . Patient is a 73-year-old female who returns the office for follow-up on open reduction internal fixation the left ankle. Patient had repeat x-rays healing fracture. Patient has been weight-bearing in a cam boot overall she is doing well she still has some mild swelling. Patient denies any significant pain. Patient denies any calf pain, troubles breathing. Naveed Lala DPM [address], [address], [place], [address], [facility] 03/25/2024 13:36:55 04/22/2024 text/html . Patient is a 74-year-old female who returns for follow-up on bimalleolar ankle fracture. Patient has been walking in a postop cam boot and has been doing very well she had repeat x-rays which shows stable fracture fixation with intact hardware. Patient was urged to continue calcium and vitamin-D supplements secondary to her brittle bones. Patient denies any pain with walking. Patient states she has mild swelling at times the ankle. Patient denies any calf pain. Naveed Lala DPM [address] [facility] [address], [place], [address], [place] [facility] [employer] [facility] 04/22/2024 14:05:05 OBGyn Episode No OBEpisode recorded.
--- OUTSIDE RECORDS SUMMARY | 2024-10-06 15:38 | XMS_ITS ---
Care Plan - [facility] Created on: October 06, 2024 EDITH DARBY : 1950 Sex: Female Author Organization [facility] Address [address] [place] [address] Phone Care Team Providers Care Aircraft Log Clerk Name Role Phone RHIANNON DAI, EILEEN JJ Unavailable [phone]
--- OUTSIDE RECORDS SUMMARY | 2024-10-06 15:38 | XMS_ITS | Referral Summary ---
Author Organization [facility] Address [address] [place] [address] Care Team Providers Care Manager Maritime Name Role Phone Emmett Carrizales MD Primary Care Provider [phone] Encounters Date Type Department Care Team Description 09/18/2024 Telephone [facility] Gastroenterology at [address] [place] [address] Tiffany Florez MA from Last 3 Months Allergies Active Allergy Reactions Criticality Noted Date [...] LEVOTHROID) 88 mcg tabletIndications :hypothyroidism 100 mcg ex chef before breakfast 1 8 Active prednisoLONE acetate [...] Malocclusion 07/20/2021 Nasal turbinate hypertrophy 07/20/2021 Temporomandibular vtqdl-lqte-fibbvgxabru syndrom e 07/20/2021 Mixed irritable bowel syndrome 07/20/2021 Other fatigue 06/01/2021 Incontinence of feces 12/29/2020 History of colonic polyps 10/25/2020 Overview (10/25/2020): Added automatically from request for surgery [id number] Encounter for screening colonoscopy 10/25/2020 Overview (10/25/2020): Added automatically from request for surgery [id number] BMI 30.0-30.9,adult 03/11/2020 Class 1 obesity due to exces s calories without serious comorbidity with body mass index (BMI) of 30.0 to 30.9 in adult 03/11/2020 Gastroesophageal reflux disease 09/11/2019 Overview (09/11/2019): Added automatically from request for surgery [id number] Assessment & Plan (03/11/2020 9:25 AM CDT): Doing well on pantoprazole daily. Says she does get breakthrough symptoms occasionally (maybe one weekly) but overall doing well. Continue pantoprazole daily. May use TUMS prn breakthrough symptoms. Continue to follow GERD diet. Assessment & Plan (09/16/2019 4:46 PM REFRIGERATOR MOVER): Schedule EGD for further evaluation. Start Protonix daily instead of Pepcid. Follow-up in 6 months. Also discussed with the patient gastroesophageal reflux disease diet. Irritable bowel syndrome with diarrhea 9 Assessment & Plan (03/11/2020 9:24 AM CDT): Pt doing well on dicyclomine TID. She is having two normal BM's daily on this medication. Continue this medication. Assessment & Plan (09/16/2019 4:46 PM REFRIGERATOR MOVER): Overall her symptoms has improved and less diarrhea with Bentyl twice daily. Will continue to follow on the pattern for symptoms. Assessment & Plan (08/22/2018 12:26 PM REFRIGERATOR MOVER): Doing well with Dicyclomine Adult attention deficit hyperactivity disorder 0 01/16/2017 Psychophysiological insomnia 09/27/2016 Lumbar spinal stenosis 03/08/2016 Severe bipolar I disorder, m ost recent episode depressed ([facility]) 06/29/2015 Bipolar I disorder 03/13/2015 Generalized anxiety disorder 02/10/2015 Mild cognitive impairment 02/10/2015 Periodic limb movement sleep disorder 07/28/2013 Sleep apnea 04/14/2013 Overview (07/20/2021): nonorganic nonorganic Hypothyroidism, unspecified 08/02/2012 Essential hypertension, benign 08/02/2012 Fracture of nasal bones 08/02/2012 Other and unspecified hyperlipidemia 08/02/2012 Immunizations Immunization Administration Dates Next Due Flucelvax [...] on file Legal Sex Female 12:20 AM REFRIGERATOR MOVER Gender Identity Not on file Sexual Orientation [...] Mcgarry MD - 12/01/2020 12:44 PM CDT [facility] Patient Name: Lana Darby Procedure Date: 12/01/2020 12:44 PM Date of : 1950 Admit Type: Outpatient Age: 70 Gender: Female Attending MD: Sierra Mcgarry M.D. Room: [facility] ENDOSCOPY ROOM 1 Note Status: Finalized Patient [...] under direct vision. The Pediatric Colonoscope PCF-[id number] was introducedthrough the anus and advanced to [...] 12:44 PM Procedure Code(s): --- Professional --- 82368, Colonoscopy, flexible; with removal of tumor(s), polyp(s), or other lesion(s) by snare technique 81748, 59, Colonoscopy, flexible; with biopsy, single or multiple Diagnosis Code(s): --- Professional --- Z86.010, Personal history of colonic polyps K64.8, Other hemorrhoids K63.5, Polyp of colon K62.1, Rectal polyp CPT copyright 2019 [employer]. All rights reserved. The codes documented in this report are preliminary and upon mail distribution clerk reviewmay be revised to meet current compliance requirements. Recognized by the [employer] for promoting quality in endoscopy Sierra Mcgarry MD ENDOSCOPY PROCEDURES Final Result from Last 3 Months or Most Recently Relevant to Health Maintenance Insurance HUMANA MEDICARE HMO [facility] MEDICARE O [facility] MEDICARE O [address] FEDERAL Advance Directives For more information, please contact: [phone] * Full Code (Latest Code Status on File) Date Activated Date Inactivated Comments 12/01/2020 12:33 PM 12/01/2020 6:56 PM * Full Code Date Activated Date Inactivated Comments 10/29/2019 7:38 AM 10/29/2019 1:35 PM * Full Code Date Activated Date Inactivated Comments 10/29/2019 7:38 AM 10/29/2019 7:38 AM Care Teams Manager Maritime Relationship Specialty Start Date End Date Emmett Carrizales MD [address] [place] [address] PCP - General Internal Medicine 08/10/21
--- OUTSIDE RECORDS SUMMARY | 2024-10-06 15:38 | XMS_ITS ---
Care Plan - [facility] Created on: October 06, 2024 EDITH DARBY : 1950 Sex: Female Author Organization [facility] Address [address] [place] [address] Phone Care Team Providers Care Corduroy Cutting Supervisor Name Role Phone RHIANNON DAI, EILEEN JJ Unavailable [phone] JYOTI DAI, GOLDIE Person Primary Care Provider [phone]
--- OUTSIDE RECORDS SUMMARY | 2024-10-06 15:38 | XMS_ITS | Clinical Summary ---
Author Organization [facility] Address [address] [place] [address] Phone Care Team Providers Care Strings Teacher Name Role Phone RHIANNON DAI, EILEEN JJ Unavailable [phone] Reason for Visit and Chief Complaint * PHONE CALL Problems Includes: Problems addressed during this encounter and other active Problems All Visits Onset Date Resolved Date Provider Condition S tatus Depressive Disorder, Nos 04/13/2018 Active Last Documented On 3 5:51PM ; [facility] Adult Attention Deficit Hyperactivity Disorder 01/16/2017 Active Last Documented On 3 5:50PM ; [facility] Psychophysiological Insomnia 09/27/2016 Active Last Documented On 3 5:50PM ; [facility] Bipolar I Disorder 03/13/2015 Active Last Documented On 3 5:48PM ; [facility] Dementia 02/10/2015 Active Last Documented On 3 5:48PM ; [facility] Generalized Anxiety Disorder 02/10/2015 Active Last Documented On 3 5:48PM ; [facility] Mild Cognitive Impairment 02/10/2015 EILEEN VINCENT MD Active Last Documented On 3 5:01PM ; [facility] Restless Legs Syndrome 07/28/2013 Ac tive Last Documented On 3 5:48PM ; [facility] 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 EILEEN DE LA VEGA MD Active Last Documented On 3 5:01PM ; [facility] Hypothyroidism, unspecified 08/02/2012 Active Last Documented On 3 5:48PM ; [facility] Gastro-esophageal reflux disease without esophagitis 08/02 Active Last Documented On 3 5:48PM ; [facility] Fracture of Nasal Bones 08/02/2012 A ctive Last Documented On 3 5:42PM ; [facility] Hyperlipidemia, unspecified 08/02/2012 Active Last Documented On 3 5:48PM ; [facility] Essential (primary) hypertension 08/02/2012 Active Last Documented On 3 5:48PM ; [facility] Irritable bowel syndrome without diarrhea 08/02/2012 Active Last Documented On 3 5:48PM ; [facility] Plan of Treatment Future Appointments Date Time Location Provi itz TELEHEALTH ADULT PSYCH ESTABLISHED 12/24/2024 11:00AM [facility] VINCENT MD Last Documented On 5 4:04PM ; [facility] Assessments Includes: Assessments from this [...] combined type 1 tablet every morning Pharmacy: [address] [id number] - Last Documented On 12/19/2023 11:48AM By Radha Vincent MD ; [facility] Current Medications (continue as prescribed) busPIRone HCl 15 MG Oral Tablet 01/16/2024 Provider: EILEEN VINCENT MD Diagnosis: TAKE ONE TABLET BY MOUTH THREE TIMES a DAY Last Documented On 01/16/2024 10:52AM By Radha Vincent MD ; [facility] Mydayis 37.5 MG Oral Capsule Extended Release 24 Hour 01/01/2024 Provider: EILEEN VINCENT MD Diagnosis: Attention-defici t hyperactivity disorder, combined type TAKE ONE (1) CAPSULE BY MOUT H EACH MORNING Last Documented On 01/01/2024 5:57PM By Radha Vincent MD ; [facility] rOPINIRole HCl 2 MG Oral Tablet 12/19/2023 Provider: EILEEN VINCENT MD Diagnosis: Restless legs sy ndrome as directed 1 tablet at 5 pm in the evening for restless legs Last Documented On 12/19/2023 11:49AM By Radha Vincent MD ; [facility] Memantine HCl 5 MG Oral Tablet 12/12/2023 Provider: EILEEN VINCENT MD Diagnosis: Dem in oth dis c lassd elswhr,unsp sev,w/o beh/psych/mood/anx One tablet daily Last Documented On 12/12/2023 4:50PM By Radha Vincent MD ; [facility] rOPINIRole HCl 2 MG Oral Tablet 12/10/2023 Provider: VENTURA GERARDO Diagnosis: Last Documented On 12/19/2023 11:45AM By Radha Vincent MD ; [facility] Namzaric 28-10 MG Oral Capsule Extended Release 24 Hour 11/26/2023 Provider: EILEEN VINCENT MD Diagnosis: Dem in oth dis c lassd elswhr,unsp sev,w/o beh/psych/mood/anx TAKE ONE CAPSULE BY MOUTH EV HELLEN MORNING Last Documented On 11/26/2023 1:10PM By Radha Vincent MD ; [facility] Trintellix 10 MG Oral Tablet 11/13/2023 Provider: EILEEN VINCENT MD Diagnosis: Major depressive disorder, single episode, unspecified TAKE ONE (1) TABLET BY MOUTH DAILY Last Documented On 11/13/2023 10:08AM By Radha Vincent MD ; [facility] Belsomra 10 MG Oral Tablet 11/01/2023 Provider: EILEEN VINCENT MD Diagnosis: Psychophysiologi c insomnia DIRECTED 1 TABLET AT BEDT ELEAZAR NEEDED FOR SLEEP Last Documented On 11/01/2023 4:16PM By Radha Vincent MD ; [facility] buPROPion HCl ER (XL) 300 MG Oral Tablet Extended Release 24 Hour 08/24/2023 Provider: EILEEN VINCENT MD Diagnosis: Major depressive disorder, single episode, unspecified 1 tablet every morning Last Documented On 08/24/2023 10:15AM By Radha Vincent MD ; [facility] lamoTRIgine 150 MG Oral Tablet 08/24/2023 Provider: EILEEN VINCENT MD Diagnosis: TAKE ONE TABLET BY MOUTH TWO TIMES A DAY Last Documented On 08/24/2023 10:26AM By Radha Vincent MD ; [facility] Escitalopram Oxalate 20 MG Oral Tablet 08/24/2023 Provider: EILEEN VINCENT MD Diagnosis: Generalized anxi ety disorder TAKE ONE TABLET BY MOUTH DAILY Last Documented On 08/24/2023 10:16AM By Radha Vincent MD ; [facility] Ferrous Sulfate 325 (65 Fe) MG Oral Tablet 04/18/2023 Provider: Diagnosis: 1 tab every other day Last Documented On 04/18/2023 10:30AM By WISAM CASH ; [facility] Belsomra 10 MG Oral Tablet 03/19/2023 Provider: Diagnosis: Psychophysiologi c insomnia 1 tablet at bedtime as needed for sleep Last Documented On 03/19/2023 2:13PM By LETI WILSON ; [facility] Belsomra 10 MG OR TABS 09/27/2022 Provider: CISCO VINCENT MD Diagnosis: Psychophysiologi c insomnia DIRECTED - ONE (1) TAB AT BEDTIME NEEDED FOR SLEEP Last Documented On 12/09/2022 5:29PM By Radha Vincent MD ; [facility] Alendronate Sodium 70 MG OR TABS 06/19/2022 Provider : Diagnosis: 1 tab weekly Last Documented On 12/09/2022 5:29PM By WISAM CASH ; [facility] Levothyroxine Sodium 100 MCG OR CAPS 04/14/2020 Prov ider: Diagnosis: 1 tab daily Last Documented On 12/09/2022 5:29PM By WISAM CASH ; [facility] Pantoprazole Sodium 40 MG OR TBEC 11/15/2019 Provide r: Diagnosis: 1 tab daily Last Documented On 12/09/2022 5:29PM By WISAM CASH ; [facility] Azelastine HCl 0.15% NA SOLN 08/21/2019 Provider: Diagnosis: 2 sprays in each nostril twice a day Last Documented On 12/09/2022 5:29PM By WISAM CASH ; [facility] Fluticasone Propionate 50 MCG/ACT NA SUSP 07/25/2018 Provider: Diagnosis: 2 sprays in each nostril daily Last Documented On 12/09/2022 5:29PM By WISAM CASH ; [facility] amLODIPine Besy-Benazepril HCl 5-10 MG OR CAPS 016 Provider: Diagnosis: 1 daily Last Documented On 12/09/2022 5:29PM By WILMER REDDY LPN ; [facility] Lipitor 20 MG OR TABS 11/10/2015 Provider: Diagnosis: 1 tablet every evening Last Documented On 12/09/2022 5:29PM By WILMER REDDY LPN ; [facility] Lasix 20 MG OR TABS 11/10/2015 Provider: Diagnosis: 1 tablet every morning Last Documented On 12/09/2022 5:29PM By WILMER REDDY LPN ; [facility] Aspirin 81 MG OR TABS 11/10/2015 Provider: Diagnosis: 1 tablet daily Last Documented On 12/09/2022 5:29PM By WILMER REDDY LPN ; [facility] Past Medications on file Dicyclomine HCl 10 MG Oral Capsule 09/14/2023 - 2023 Provider: Diagnosis: 1 capsule bid Last Documented On 09/14/2023 11:16AM By WISAM CASH ; [facility] hydrOXYzine HCl 25 MG Oral Tablet 04/09/2023 - 06/08/2023 Provider: EILEEN CONNORS MD Diagnosis: 1 TAB a DAY NEEDED ONLY FOR ITCHING/ANXIETY Last Documented On 04/09/2023 12:08PM By Radha Vincent MD ; [facility] hydrOXYzine HCl 25 MG OR TABS 10/08/2020 - 11/07/2020 Provider: EILEEN VINCENT MD Diagnosis: Generalized anxi ety disorder as directed - 1 tab a day as needed for agitation/anxiety Last Documented On 12/09/2022 5:29PM By Radha Vincent MD ; [facility] LaMICtal 150 MG OR TABS 09/24/2018 - 09/27/2018 Provider: EILEEN VINCENT MD Diagnosis: Bipolar disorder , unspecified One tablet twice a day Last Documented On 12/09/2022 5:29PM By Radha Vincent MD ; [facility] Atorvastatin Calcium 20 MG OR TABS 01/28/2013 - 2012 Provider: Diagnosis: Last Documented On 12/09/2022 5:29PM By TERRI CASH ; [facility] Medications Administered Includes: Administered Medications [...] Last Documented On 9 1:33PM ; [facility] Sulfa Antibiotics Allergy 08/02/2012 A ctive Last Documented On 4 11:08AM ; [facility] Note: Imported from external source. Neupro Allergy rash 10/23/2013 Active Last Documented On 4 11:08AM ; [facility] Note: Imported from external source. Encounters Encounter Provider Location Date Check-In Time Check-Out Time Diagnosis * PHONE CALL EILEEN VINCENT MD [facility]-PS[facility] 4 2:36PM 11:59PM Insurance Includes: Active Insurance Policies Plan Name Member ID Group # Subscriber Relationship Effect kofi Dates 1 - [facility] [employer] [place] [id number] LANA DARBY Self 2 - [facility] [id number] INGRID DARBY J 0 - Unknown Clinical Notes Includes: Clinical Notes from this encounter * Progress note Date Encounter Last Documented by 10/18/2023 * PHONE CALL Last documented on 10/22/2023; 8:51 AM, EILEEN VINCENT MD; [facility] Active Problems & Conditions - Adult [...] place. pt phone # for return call: [phone] date/initials: 10/18/23 bk Current Medication - Alendronate [...] PREVIOUS PSYCHIATRIC HOSPITALIZATION: She was hospitalized at [facility] in 2008 due to depression; she said that she was suicidal then. She was also hospitalized at [facility] at least twice from [id number]. She said again she could not remember the dates. PREVIOUS PSYCHIATRIC TREATMENT: She was under the care of Dr. Arciniega in [place]. PREVIOUS PSYCHIATRIC MEDICATIONS: Lexapro 20mg once a [...]
--- OUTSIDE RECORDS SUMMARY | 2024-10-06 15:38 | XMS_ITS ---
Care Plan Created on: October 06, 2024 Lana Lockwood : 1950 Sex: Female Author Organization [facility] Address [address] [place] [address] Phone Care Team Providers Care Primary Health Care Nurse Name Role Phone Emmett Carrizales MD Primary Care Provider Karolyn Tobar RN Unavailable Unavailable Ifrah Whitfield APRN, FOOD AND BEVERAGE ASSISTANT Unavailable Active Problems Problem Noted Date Diagnosed Date Age-related osteoporosis wit hout current pathological fracture 09/25/2024 On supplemental oxygen therapy 09/25/2024 Other specified hypothyroidism 08/10/2021 Essential hypertension, benign 06/01/2021 Other hyperlipidemia 06/01/2021 Other fatigue 06/01/2021 Lumbar spinal stenosis 03/08/2016 Generalized anxiety disorder 06/29/2015 Severe bipolar I disorder, most recent episode d epressed 06/29/2015 Allergic rhinitis Sleep apnea, central Overview (07/08/2015): nonorganic Nasal turbinate hypertrophy GERD without esophagitis Malocclusion Obstructive sleep apnea Overview (07/08/2015): nonorganic Periodic limb movement sleep disorder Chronic rhinitis Resolved Problems Problem Noted Date Diagnosed Date [...] Injury Patient Goals On track(2024 11:16 AM CATERING STAFF MEMBER) Yes Karolyn Tobar RN Note: Follow Up [...] alert plan in case I fall - parts picker clutter from the floors - use [...] Appointments Patient Goals On track(2024 11:16 AM CATERING STAFF MEMBER) Yes Karolyn Tobar RN Note: Follow Up [...] Risk (Fall Risk) On track(2024 11:14 AM CATERING STAFF MEMBER) No Karolyn Tobar, [place] Note: Evidence-based guidance: [...] No recent falls. 04/29/2024 referral sent to [facility] per patient request. 06/30/2024 She is [...]
--- OUTSIDE RECORDS SUMMARY | 2024-10-06 15:38 | XMS_ITS | Encounter Summary ---
Author Organization [facility] Address [address] [place] [place] [address] Phone Care Team Providers Care Repair Tech Name Role Phone Emmett Carrizlaes MD Primary Care Provider [phone] Karolyn Tobar RN Unavailable Unavailable Ifrah Whitfield APRN, MORTGAGE PROTECTION SPECIALIST Unavailable [phone] Reason for Visit * Reason Comments Medication Refill Encounter Details Date Type Department Care Team (Late st Contact Info) Description 07/25/2024 Refill [facility] - Internal Medicine - [place] [address] [place] [address] Emmett Carrizales MD [address] [facility] [address] Medication Refill Social History Tobacco Use Types Packs/Day Years Used Date Smoking Tobacco: Never Passive Smoke Exposure: Never Smokeless Tobacco: Never Alcohol Use Standard Drinks/Week Comments Not Currently 0 (1 standard drink = 0.6 oz pur e alcohol) [facility] Utilities Answer Date Recorded In [...] often do you attend chur ch or tenriism services? Never 09/13/2023 Do you belong to any clubs o r organizations such as yazidi groups, unions, fraternal or athletic groups, or [...] Total Score - Questions 1-9 0 08/2023 [facility] - Occupational [...] place to sleep or slept in a residential (including now)? No 09/13/2023 Education Answer Date [...] Visit [facility] [place] [address] [place] [address] Emmett Carrizales MD [address] [place] [address] documented as of this encounter Goals Goal Patient Goal Type Associated Problems Recent Progress Patient-Stated? 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) Yes Karolyn Tobar RN Note: Follow Up [...] Risk (Fall Risk) On track(2024 11:14 AM SHUTTLELESS LOOM WEAVER) Karolyn Wakefield, RN Note: Evidence-based guidance: Assess fall risk [...] Total Score: 0 09/13/19 24 1:30 PM SHUTTLELESS LOOM WEAVER documented as of this encounter Care Teams Repair Tech Relationship Specialty Start Date End Date Emmett Carrizales MD [address] [place] [address] PCP - General Internal Medicine 06/29/15 Karolyn Tobar, RN [place] Nurse Twisthand 06/07/23 Ifrah Whitfield APRN, MORTGAGE PROTECTION SPECIALIST [id number] [address] Nurse Practitioner Advanced Practice Nurse 03/06/22 documented as of this encounter
--- OUTSIDE RECORDS SUMMARY | 2024-10-06 15:38 | XMS_ITS | Clinical Summary ---
Author Organization [facility] S Address [address] [place] [address] Phone Care Team Providers Care Set O Type Operator Name Role Phone RHIANNON DAI, EILEEN [...] Active Last Documented On 7 10:35AM ; [facility] Past Visits Onset Date Resolved Date Provider Condition Status Depressive Disorder, Nos 04/13/2018 EILEEN VINCENT MD Active Last Documented On 8 6:05AM ; [facility] Adult Attention Deficit Hype ractivity Disorder 01/16/2017 EILEEN VINCENT MD Active Last Documented On 7 11:10AM ; [facility] Bipolar I Disorder 03/13/2015 EILEEN BREEN MD Active Last Documented On 5 10:21AM ; [facility] Dementia 02/10/2015 EILEEN VINCENT MD Ac tive Last Documented On 5 10:58AM ; [facility] Generalized Anxiety Disorder 02/10/2015 EILEEN VINCENT MD Active Last Documented On 5 10:22AM ; [facility] Mild cognitive impairment of uncertain or unknown etiology 02/10/2015 EILEEN VINCENT MD Active Last Documented On 5 10:36AM ; [facility] Restless Legs Syndrome 07/28/2013 EILEEN DE LA VEGA MD Active Last Documented On 1 11:20AM ; [facility] Sleep apnea, unspecified 04/14/2013 EILEEN VINCENT MD Active Last Documented On 5 10:51AM ; [facility] Hypothyroidism, unspecified 08/02/2012 EILEEN VINCENT MD Active Last Documented On 5 10:49AM ; [facility] Gastro-esophageal reflux dis ease without esophagitis 08/02/2012 EILEEN VINCENT MD Active Last Documented On 5 10:37AM ; [facility] Fracture of Nasal Bones 08/02/2012 EILEEN VINCENT MD Active Last Documented On 2 11:16AM ; [facility] Hyperlipidemia, unspecified 08/02/2012 EILEEN VINCENT MD Active Last Documented On 5 10:38AM ; [facility] Essential (primary) hypertension 08/02/2012 MET LEONIDES VINCENT MD Active Last Documented On 5 10:38AM ; [facility] Irritable bowel syndrome without diarrhea 08/02/2012 EILEEN VINCENT MD Active Last Documented On 5 10:50AM ; [facility] Plan of Treatment No Plan of Treatment Recorded Assessments Includes: Assessments from this encounter Findings - Psychophysiological insomnia - Last Documented On 07/31/2022 12:03PM ; [facility] Medical Equipment - Implanted Devices Includes: [...] bedti me as needed for sleep Pharmacy: [facility], [address] - Last Documented On 3 11:11AM By Radha Vincent MD ; [facility] Current Medications (continue as prescribed) Mydayis 37.5 MG Oral Capsule Extended Release 24 Hour 12/07/2022 Provider: EILEEN VINCENT MD Diagnosis: Attention-defici t hyperactivity disorder, combined type 1 Capsule every morning Last Documented On 12/07/2022 4:33PM By Radha Vincent MD ; [facility] hydrOXYzine HCl 25 MG Oral Tablet 10/17/2022 Provide r: EILEEN VINCENT MD Diagnosis: 1 tab a day as needed only for itching/anxiety Last Documented On 10/17/2022 7:11PM By Radha Vincent MD ; [facility] Belsomra 10 MG Oral Tablet 09/27/2022 Provider: EILEEN VINCENT MD Diagnosis: Psychophysiologi c insomnia DIRECTED - ONE (1) TAB AT BEDTIME NEEDED FOR SLEEP Last Documented On 3 11:26AM By Radha Vincent MD ; [facility] Escitalopram Oxalate 20 MG Oral Tablet 09/25/2022 Provider: EILEEN VINCENT MD Diagnosis: Generalized anxi ety disorder TAKE ONE TABLET BY MOUTH DAILY Last Documented On 3 10:40AM By Radha Vincent MD ; [facility] lamoTRIgine 150 MG Oral Tablet 09/25/2022 Provider: EILEEN VINCENT MD Diagnosis: TAKE ONE TABLET BY MOUTH TWO TIMES A DAY Last Documented On 3 10:40AM By Radha Vincent MD ; [facility] rOPINIRole HCl 2 MG Oral Tablet 09/25/2022 Provider: EILEEN VINCENT MD Diagnosis: Restless legs sy ndrome DIRECTED - ONE (1) TAB AT FIVE (5) IN THE EVENING FOR RESTLESS LEGS Last Documented On 3 10:37AM By Radha Vincent MD ; [facility] buPROPion HCl ER (XL) 300 MG Oral Tablet Extended Release 24 Hour 07/03/2022 Provider: EILEEN VINCENT MD Diagnosis: Major depressive disorder, single episode, unspecified 1 tablet every morning Last Documented On 07/03/2022 1:56PM By Radha Vincent MD ; [facility] Alendronate Sodium 70 MG Oral Tablet 06/19/2022 Prov ider: WOLF MANJARREZ MD Diagnosis: 1 tab weekly Last Documented On 2 11:54AM By WISAM CASH ; [facility] traZODone HCl 50 MG Oral Tablet 02/07/2022 Provider: EILEEN VINCENT MD Diagnosis: TAKE ONE (1) OR TWO (2) TABL ETS BY MOUTH AT BEDTIME NEEDED SLEEP Last Documented On 2 10:04AM By Radha Vincent MD ; [facility] Levothyroxine Sodium 100 MCG Oral Capsule 04/14/2020 Provider: GOLDIE MONTES MD Diagnosis: 1 tab daily Last Documented On 0 11:36AM By WISAM CASH ; [facility] Pantoprazole Sodium 40 MG Or al Tablet Delayed Release 11/15/2019 Provider: MUSA DEJESUS Diagnosis: 1 tab daily Last Documented On 0 11:20AM By WISAM CASH ; [facility] Azelastine HCl 0.15% Nasal Solution 08/21/2019 Provi itz: GOLDIE MONTES MD Diagnosis: 2 sprays in each nostril twice a day Last Documented On 0 11:35AM By WISAM CASH ; [facility] Ferrous Sulfate 325 (65 Fe) MG Oral Tablet 04/10/2019 Provider: GOLDIE MONTES MD Diagnosis: 1 tab daily Last Documented On 04/10/2019 1:36PM By WISAM CASH ; [facility] Fluticasone Propionate 50MCG /ACT Nasal Suspension 07/25/2018 Provider: BETSY VAELNCIA MD Diagnosis: 2 sprays in each nostril daily Last Documented On 11/28/2018 3:50PM By WISAM CASH ; [facility] Amlodipine Besy-Benazepril H Cl 5-10 MG Capsule, conventional 03/04/2016 Provider: BETSY VALENCIA MD Diagnosis: 1 daily Last Documented On 6 9:55AM By WILMER REDDY LPN ; [facility] Lipitor 20 MG Tablet 11/10/2015 Provider: JEFFERSON VALENCIA MD Diagnosis: 1 tablet every evening Last Documented On 6 10:25AM By WILMER REDDY LPN ; [facility] Dicyclomine HCl 10 MG Capsule, conventional 11/10/2015 Provider: BETSY VALENCIA MD Diagnosis: 1 capsule daily Last Documented On 6 10:22AM By WILMER REDDY LPN ; [facility] Aspirin 81 MG Tablet 11/10/2015 Provider: JEFFERSON VALENCIA MD Diagnosis: 1 tablet daily Last Documented On 6 10:23AM By WILMER REDDY LPN ; [facility] Lasix 20 MG Tablet 11/10/2015 Provider: BETSY VALENCIA MD Diagnosis: 1 tablet every morning Last Documented On 6 10:24AM By WILMER REDDY LPN ; [facility] Suspended Medications Trintellix 10 MG Oral Tablet 11/16/2022 Provider: EILEEN VINCENT MD Diagnosis: Major depressive disorder, single episode, unspecified TAKE ONE (1) TABLET BY MOUTH DAILY Last Documented On 3 12:52PM By Radha Vincent MD ; [facility] Namzaric 28-10 MG Oral Capsule Extended Release 24 Hour 10/17/2022 Provider: EILEEN VINCENT MD Diagnosis: Dem in oth dis c lassd elswhr,unsp sev,w/o beh/psych/mood/anx TAKE ONE CAPSULE BY MOUTH EV HELLEN MORNING Last Documented On 3 11:37AM By Radha Vincent MD ; [facility] busPIRone HCl 15 MG Oral Tablet 08/29/2022 Provider: EILEEN VINCENT MD Diagnosis: TAKE ONE TABLET BY MOUTH THREE TIMES a DAY Last Documented On 08/29/2022 3:43PM By Radha Vincent MD ; [facility] Past Medications on file hydrOXYzine HCl [...] 09/24/2018 1:31PM By Radha Vincent MD ; [facility] Atorvastatin Calcium 20 MG OR TABS 01/28/2013 - 2012 Provider: Diagnosis: Last Documented On 3 3:46PM By TERRI CASH ; [facility] Medications Administered Includes: Administered Medications from [...] esolved Last Documented On 9 1:33PM ; [facility] Sulfa Antibiotics Allergy 08/02/2012 A ctive Last Documented On 4 11:08AM ; [facility] Note: Imported from external source. Neupro Allergy rash 10/23/2013 Active Last Documented On 4 11:08AM ; [facility] Note: Imported from external source. Encounters Encounter Provider Location Date Check-In Time Check-Out Time Diagnosis * PHONE CALL EILEEN VINCENT MD [facility] 022 10:30AM 11:59PM Psychophysiological Insomnia Insurance Includes: Active Insurance Policies Plan Name Member ID Group # Subscriber Relationship Effect kofi Dates 1 - [facility] [employer] [id number] EDITH DARBY Self 2 - [facility] [id number], INGRID J 0 - Unknown Clinical Notes Includes: Clinical Notes from this encounter No Clinical Notes Recorded
--- OUTSIDE RECORDS SUMMARY | 2024-10-06 15:38 | XMS_ITS | Clinical Summary ---
Author Organization [facility] Address [address] [place] [address] Phone Care Team Providers Care Dried Yeast Supervisor Name Role Phone RHIANNON DAI, EILEEN JJ Unavailable [phone] Reason for Visit and Chief Complaint * PHONE CALL Problems Includes: Problems addressed during this encounter and other active Problems Current Visit Onset Date Resolved Date Provider Conditio n Status Dementia 02/10/2015 Active Last Documented On 3 5:48PM ; [facility] Past Visits Onset Date Resolved Date Provider Condition Status Depressive Disorder, Nos 04/13/2018 Active Last Documented On 3 5:51PM ; [facility] Adult Attention Deficit Hyperactivity Disorder 01/16/2017 Active Last Documented On 3 5:50PM ; [facility] Psychophysiological Insomnia 09/27/2016 Active Last Documented On 3 5:50PM ; [facility] Bipolar I Disorder 03/13/2015 Active Last Documented On 3 5:48PM ; [facility] Generalized Anxiety Disorder 02/10/2015 Active Last Documented On 3 5:48PM ; [facility] Mild Cognitive Impairment 02/10/2015 EILEEN VINCENT MD Active Last Documented On 3 5:01PM ; [facility] Restless Legs Syndrome 07/28/2013 Ac tive Last Documented On 3 5:48PM ; [facility] 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 EILEEN DE LA VEGA MD Active Last Documented On 3 5:01PM ; [facility] Hypothyroidism, unspecified 08/02/2012 Active Last Documented On 3 5:48PM ; [facility] Gastro-esophageal reflux disease without esophagitis 08/02 Active Last Documented On 3 5:48PM ; [facility] Fracture of Nasal Bones 08/02/2012 A ctive Last Documented On 3 5:42PM ; [facility] Hyperlipidemia, unspecified 08/02/2012 Active Last Documented On 3 5:48PM ; [facility] Essential (primary) hypertension 08/02/2012 Active Last Documented On 3 5:48PM ; [facility] Irritable bowel syndrome without diarrhea 08/02/2012 Active Last Documented On 3 5:48PM ; [facility] Plan of Treatment Future Appointments Date [facility]/24/2024 11:00AM [facility] VINCENT MD Last Documented On 5 4:04PM ; [facility] Assessments Includes: Assessments from this encounter Findings - Dementia - Last Documented On 12/12/2023 5:57PM ; [facility] Medical Equipment - Implanted Devices Includes: Current [...] One tablet daily Pharmacy: [facility] [address], [address] - Last Documented On 12/12/2023 4:50PM By Radha Vincent MD ; [facility] Current Medications (continue as prescribed) busPIRone HCl 15 MG Oral Tablet 01/16/2024 Provider: EILEEN VINCENT MD Diagnosis: TAKE ONE TABLET BY MOUTH THREE TIMES a DAY Last Documented On 01/16/2024 10:52AM By Radha Vincent MD ; [facility] Mydayis 37.5 MG Oral Capsule Extended Release 24 Hour 01/01/2024 Provider: EILEEN VINCENT MD Diagnosis: Attention-defici t hyperactivity disorder, combined type TAKE ONE (1) CAPSULE BY MOUT H EACH MORNING Last Documented On 01/01/2024 5:57PM By Radha Vincent MD ; [facility] rOPINIRole HCl 2 MG Oral Tablet 12/19/2023 Provider: EILEEN VINCENT MD Diagnosis: Restless legs sy ndrome as directed 1 tablet at 5 pm in the evening for restless legs Last Documented On 12/19/2023 11:49AM By Radha Vincent MD ; [facility] rOPINIRole HCl 2 MG Oral Tablet 12/10/2023 Provider: VENTURA GERARDO Diagnosis: Last Documented On 12/19/2023 11:45AM By Radha Vincent MD ; [facility] Namzaric 28-10 MG Oral Capsule Extended Release 24 Hour 11/26/2023 Provider: EILEEN VINCENT MD Diagnosis: Dem in oth dis c lassd elswhr,unsp sev,w/o beh/psych/mood/anx TAKE ONE CAPSULE BY MOUTH EV HELLEN MORNING Last Documented On 11/26/2023 1:10PM By Radha Vincent MD ; [facility] Trintellix 10 MG Oral Tablet 11/13/2023 Provider: EILEEN VINCENT MD Diagnosis: Major depressive disorder, single episode, unspecified TAKE ONE (1) TABLET BY MOUTH DAILY Last Documented On 11/13/2023 10:08AM By Radha Vincent MD ; [facility] Belsomra 10 MG Oral Tablet 11/01/2023 Provider: EILEEN VINCENT MD Diagnosis: Psychophysiologi c insomnia DIRECTED 1 TABLET AT BEDT ELEAZAR NEEDED FOR SLEEP Last Documented On 11/01/2023 4:16PM By Radha Vincent MD ; [facility] buPROPion HCl ER (XL) 300 MG Oral Tablet Extended Release 24 Hour 08/24/2023 Provider: EILEEN VINCENT MD Diagnosis: Major depressive disorder, single episode, unspecified 1 tablet every morning Last Documented On 08/24/2023 10:15AM By Radha Vincent MD ; [facility] lamoTRIgine 150 MG Oral Tablet 08/24/2023 Provider: EILEEN VINCENT MD Diagnosis: TAKE ONE TABLET BY MOUTH TWO TIMES A DAY Last Documented On 08/24/2023 10:26AM By Radha Vincent MD ; [facility] Escitalopram Oxalate 20 MG Oral Tablet 08/24/2023 Provider: EILEEN VINCENT MD Diagnosis: Generalized anxi ety disorder TAKE ONE TABLET BY MOUTH DAILY Last Documented On 08/24/2023 10:16AM By Radha Vincent MD ; [facility] Ferrous Sulfate 325 (65 Fe) MG Oral Tablet 04/18/2023 Provider: Diagnosis: 1 tab every other day Last Documented On 04/18/2023 10:30AM By WISAM CASH ; [facility] Belsomra 10 MG Oral Tablet 03/19/2023 Provider: Diagnosis: Psychophysiologi c insomnia 1 tablet at bedtime as needed for sleep Last Documented On 03/19/2023 2:13PM By LETI WILSON ; [facility] Belsomra 10 MG OR TABS 09/27/2022 Provider: CISCO VINCENT MD Diagnosis: Psychophysiologi c insomnia DIRECTED - ONE (1) TAB AT BEDTIME NEEDED FOR SLEEP Last Documented On 12/09/2022 5:29PM By Radha Vincent MD ; [facility] Alendronate Sodium 70 MG OR TABS 06/19/2022 Provider : Diagnosis: 1 tab weekly Last Documented On 12/09/2022 5:29PM By WISAM CASH ; [facility] Levothyroxine Sodium 100 MCG OR CAPS 04/14/2020 Prov ider: Diagnosis: 1 tab daily Last Documented On 12/09/2022 5:29PM By WISAM CASH ; [facility] Pantoprazole Sodium 40 MG OR TBEC 11/15/2019 Provide r: Diagnosis: 1 tab daily Last Documented On 12/09/2022 5:29PM By WISAM CASH ; [facility] Azelastine HCl 0.15% NA SOLN 08/21/2019 Provider: Diagnosis: 2 sprays in each nostril twice a day Last Documented On 12/09/2022 5:29PM By WISAM CASH ; [facility] Fluticasone Propionate 50 MCG/ACT NA SUSP 07/25/2018 Provider: Diagnosis: 2 sprays in each nostril daily Last Documented On 12/09/2022 5:29PM By WISAM CASH ; [facility] amLODIPine Besy-Benazepril HCl 5-10 MG OR CAPS 016 Provider: Diagnosis: 1 daily Last Documented On 12/09/2022 5:29PM By WILMER REDDY LPN ; [facility] Lipitor 20 MG OR TABS 11/10/2015 Provider: Diagnosis: 1 tablet every evening Last Documented On 12/09/2022 5:29PM By WILMER REDDY LPN ; [facility] Lasix 20 MG OR TABS 11/10/2015 Provider: Diagnosis: 1 tablet every morning Last Documented On 12/09/2022 5:29PM By WILMER REDDY LPN ; [facility] Aspirin 81 MG OR TABS 11/10/2015 Provider: Diagnosis: 1 tablet daily Last Documented On 12/09/2022 5:29PM By WILMER REDDY LPN ; [facility] Past Medications on file Dicyclomine HCl 10 MG Oral Capsule 09/14/2023 - 2023 Provider: Diagnosis: 1 capsule bid Last Documented On 09/14/2023 11:16AM By WISAM CASH ; [facility] hydrOXYzine HCl 25 MG Oral Tablet 04/09/2023 - 06/08/2023 Provider: EILEEN CONNORS MD Diagnosis: 1 TAB a DAY NEEDED ONLY FOR ITCHING/ANXIETY Last Documented On 04/09/2023 12:08PM By Radha Vincent MD ; [facility] hydrOXYzine HCl 25 MG OR TABS 10/08/2020 - 11/07/2020 Provider: EILEEN VINCENT MD Diagnosis: Generalized anxi ety disorder as directed - 1 tab a day as needed for agitation/anxiety Last Documented On 12/09/2022 5:29PM By Radha Vincent MD ; [facility] LaMICtal 150 MG OR TABS 09/24/2018 - 09/27/2018 Provider: EILEEN VINCENT MD Diagnosis: Bipolar disorder , unspecified One tablet twice a day Last Documented On 12/09/2022 5:29PM By Radha Vincent MD ; [facility] Atorvastatin Calcium 20 MG OR TABS 01/28/2013 - 2012 Provider: Diagnosis: Last Documented On 12/09/2022 5:29PM By TERRI CASH ; [facility] Medications Administered Includes: Administered Medications from [...] esolved Last Documented On 9 1:33PM ; [facility] Sulfa Antibiotics Allergy 08/02/2012 A ctive Last Documented On 4 11:08AM ; [facility] Note: Imported from external source. Neupro Allergy rash 10/23/2013 Active Last Documented On 4 11:08AM ; [facility] Note: Imported from external source. Encounters Encounter Provider Location Date Check-In Time Check-Out Time Diagnosis * PHONE CALL EILEEN VINCENT MD [facility] 4 3:59PM 11:59PM Dementia Insurance Includes: Active Insurance Policies Plan Name Member ID Group # Subscriber Relationship Effect kofi Dates 1 - [facility] [employer] [id number] EDITH DARBY Self 2 - [facility] [id number] INGRID DARBY J 0 - Unknown Clinical Notes Includes: Clinical Notes from this encounter * Progress note Date Encounter Last Documented by 12/12/2023 * PHONE CALL Last documented on 12/12/2023; 5:57 PM, EILEEN VINCENT MD; [facility] Active Problems & Conditions - Adult [...] Namzaric. pt phone # for return call: [phone] date/initials: 12/12/23 bk Current Medication - Alendronate [...] PREVIOUS PSYCHIATRIC HOSPITALIZATION: She was hospitalized at [facility] in 2008 due to depression; she said that she was suicidal then. She was also hospitalized at [facility] at least twice from [id number]. She said again she could not remember the dates. PREVIOUS PSYCHIATRIC TREATMENT: She was under the care of Dr. Arciniega in [place]. PREVIOUS PSYCHIATRIC MEDICATIONS: Lexapro 20mg once a [...]
--- OUTSIDE RECORDS SUMMARY | 2024-10-06 15:38 | XMS_ITS | Clinical Summary ---
Author Organization [facility] Address [address] [place] [address] Phone Care Team Providers Care Manufacturing Quality Engineer Name Role Phone Emmett Carrizales MD Primary Care Provider Karolyn Tobar RN Unavailable Unavailable Ifrah Whitfield APRN, HOT DIP PLATER Unavailable Allergies Active Allergy Reactions Criticality Noted Date Comments Latex Hives,Rash Medium 06/29/2015 Sulfa Antibiotics Rash 06/29/2015 Adhesive Tape Hives,Rash Medications buPROPion (WELLBUTRIN) 300 MG TABLET SR 24 HR XL tabletIndication s:Major Depressive Disorder Take 300 mg by mouth every morning. Indications: Major Depressive Disorder Active escitalopram (LEXAPRO) 20 MG TabletIndication s:Generalized Anxiety Disorder,Major Depressive Disorder Take 20 mg by mouth daily. Indications: Generalized Anxiety Disorder, Major Depressive Disorder Active lamoTRIgine (LAMICTAL) 150 MG TabletIndication s:Bipolar Mood Disorder Take 150 mg by mouth 2 times daily. Indications: Manic-Depression Active dicyclomine (BENTYL) 10 MG CapsuleIndicatio ns:Irritable Bowel Syndrome Take 10 mg by mouth 3 times daily. Indications: Irritable Bowel Syndrome Active acetaminophen (TYLENOL) 325 MG TabletIndication s:Fever,Pain Take 1 Tab by mouth every 6 hours as needed for Pain or Fever (for temperature greater than 100.4 F). Do not exceed 4000 mg of acetaminophen in 24 hour from all sources. 016 Active busPIRone (BUSPAR) 15 MG TabletIndication s:Anxiety Disorder,Major Depressive Disorder Take 15 mg by mouth 3 times daily. Indications: Anxiety Disorder, Major Depressive Disorder Active pantoprazole (PROTONIX) 40 MG Tablet Delayed ResponseIndicati ons:Peptic Ulcer Take 40 mg by mouth daily. Indications: Peptic Ulcer Active Amphet-Dextroamp het 3-Bead ER (Mydayis) 37.5 MG CAPSULE SR 24 HRIndications:At tention Deficit Hyperactivity Disorder Take 37.5 mg by mouth daily. Indications: Attention Deficit Hyperactivity Disorder Active Trintellix 10 MG TabletIndication s:Major Depressive Disorder Take 10 mg by mouth daily. Indications: Major Depressive Disorder 022 Active aspirin EC 81 MG Tablet Delayed Response Aspirin 81 MG Oral Tablet QTY: 30 tablet Days: 30 Refills: 0 Written: 11/10/15 Patient Instructions: 1 tablet daily 016 Active ciclopirox (PENLAC) 8 % Solution Apply to affected nails once a day as directed 6.6 mL 5 023 Active alendronate (FOSAMAX) 70 MG Tablet 023 Active ibuprofen (MOTRIN) 200 MG Tablet Take 400 mg by mouth. Active Calcium Carb-Cholecalcif rashaun ([facility] Calcium 600 & Vitamin D3) 600-20 MG-MCG Tablet Take 1 Tablet by mouth daily. 30 Tablet 3 023 Active azelastine (ASTELIN) 0.1 % Solution TWO (2) SPRAYS BY NASAL ROUTE TWO (2) TIMES DAILY. 30 mL 3 024 Active memantine (NAMENDA) 5 MG Tablet Take 5 mg by mouth daily. Active rOPINIRole (REQUIP) 2 MG TabletIndication s:Restless Leg Syndrome Take 1 Tablet by mouth nightly. Indications: Restless Leg Syndrome 30 Tablet 024 Active amLODIPine-benaz epril (LOTREL) 5-10 MG Capsule TAKE 1 CAPSULE BY MOUTH DAILY. 30 Capsule 5 024 Active Ferrous Sulfate (Iron) 28 MG Tablet Take by mouth. Activ e hydrOXYzine (ATARAX) 25 MG Tablet 021 Active Belsomra 10 MG Tablet 024 Active Memantine HCl-Donepezil HCl (Namzaric) 28-10 MG CAPSULE SR 24 HR 024 Active methocarbamol (ROBAXIN) 500 MG Tablet Take 500 mg by mouth. 024 Active triamcinolone (KENALOG) 0.1 % Ointment Apply thin film to affected area(s) twice daily until healed. 80 g 3 024 Active Misc. Devices MiscIndications: Bilateral lower extremity edema Eugene hose- 1 pair DX- [place] LE Edema (R60.0) 1 Each 024 Active Misc. Devices Misc Portable Oxygen Tank-1 Use O2 at 2 LPM continuously vis nasal canula during sleep. DX- Nocturnal Hypoxemia (G47.34); Central Sleep apnea ( G47.31) 1 Each 024 Active fluticasone (FLONASE) 50 MCG/ACT Suspension 1 SPRAY BY NASAL ROUTE IN THE MORNING AND AT BEDTIME. 16 g 2 025 Active furosemide (LASIX) 20 MG Tablet TAKE 1 TABLET BY MOUTH DAILY. 90 Tablet 025 Active levothyroxine (SYNTHROID) 100 MCG TabletIndication s:Hypothyroidism TAKE ONE (1) TABLET BY MOUTH EVERY DAY 90 Tablet 025 Active atorvastatin (LIPITOR) 20 MG Tablet TAKE ONE (1) TABLET BY MOUTH DAILY LAST REFILL UNTIL SEEN 90 Tablet 025 Active albuterol 108 (90 Base) MCG/ACT Aerosol SolutionIndicati ons:Chronic Obstructive Pulmonary Disease TAKE ONE (1) TO TWO (2) PUFFS BY INHALATION EVERY SIX (6) HOURS NEEDED FOR WHEEZING OR COUGH. 8.5 g 1 025 Active clobetasol (TEMOVATE) 0.05 % Solution 024 Active cyclobenzaprine (FLEXERIL) 10 MG Tablet 025 Active ketoconazole (NIZORAL) 2 % Shampoo 025 Active predniSONE (DELTASONE) 20 MG Tablet 025 Active rivastigmine (EXELON) 4.6 MG/24HR PATCH 24 HR 025 Active albuterol 108 (90 Base) MCG/ACT Aerosol SolutionIndicati ons:Chronic Obstructive Pulmonary Disease TAKE ONE (1) TO TWO (2) PUFFS BY INHALATION EVERY SIX (6) HOURS NEEDED FOR WHEEZING OR COUGH. 8.5 g 1 024 2024 Discontinued furosemide (LASIX) 20 MG Tablet TAKE 1 TABLET BY MOUTH DAILY. 90 Tablet 024 2024 Discontinued levothyroxine (SYNTHROID) 100 MCG TabletIndication s:Hypothyroidism TAKE ONE (1) TABLET BY MOUTH EVERY DAY 90 Tablet 024 2024 Discontinued atorvastatin (LIPITOR) 20 MG Tablet TAKE ONE (1) TABLET BY MOUTH DAILY LAST REFILL UNTIL SEEN 90 Tablet 024 2024 Discontinued Active Problems Problem Noted Date Diagnosed Date [...] Encounters Date Type Department Care Team Description 10/03/2024 Patient Outreach [facility] [address] [place] [id number] Karolyn Tobar, RN Care Management ([facility]) 10/01/2024 Telephone [facility] [address] [facility] [place] [address] Emmett Carrizales MD 09/25/2024 3:00 PM WORLD TRAVEL COUNSELOR Office Visit [facility] [address] [place] [address] Emmett Carrizales MD Health maintenance examination (Adult) (Primary Dx); Essential hypertension, benign; Other hyperlipidemia; Other specified hypothyroidism; Age-related osteoporosis without current pathological fracture; GERD without esophagitis; Severe bipolar I disorder, most recent episode depressed (HCC); Generalized anxiety disorder; Periodic limb movement sleep disorder; Sleep apnea, central; On supplemental oxygen therapy Discharge Disposition: Discharged to home or Selfcare 09/25/2024 Travel 09/18/2024 Refill [facility] [address] [place] [address] Emmett Carrizales MD Medication Refill 09/15/2024 Refill [facility] [address] [facility] [place] [address] Emmett Carrizales MD Medication Refill 09/11/2024 Results Follow-Up [facility] [address] [place] [address] Kori Hudson, PAC 09/09/2024 12:15 PM WORLD TRAVEL COUNSELOR - 09/09/2024 11:59 PM WORLD TRAVEL COUNSELOR Hospital Encounter [facility] Diagnostic Radiology [address] [place] [address] Kori Hudson, PAC Discharge Disposition: Discharged to home or Selfcare 09/09/2024 11:00 AM WORLD TRAVEL COUNSELOR Office Visit [facility] Care Access [facility] [address] [place] [address] Provider, [facility] Constipation, unspecified constipation type (Primary Dx); Low back pain, unspecified back pain laterality, unspecified chronicity, unspecified whether sciatica present Discharge Disposition: Discharged to home or Selfcare 09/09/2024 Travel 09/05/2024 Telephone [facility] [address] [facility] [place] [address] Emmett Carrizales MD 08/27/2024 Patient Outreach [facility] [address] [place] [id number] Karolyn Tobar, RN Care Management ([facility]) 08/11/2024 [facility] [address] [facility] [place] [address] Emmett Carrizales MD Medication Refill 07/31/2024 Patient Outreach [facility] [address] [place] [phone] Karolyn Tobar, RN Care Management ([facility]) 07/25/[address] [place] [address] Emmett Carrizales MD Medication Refill 07/16/2024 11:30 AM WORLD TRAVEL COUNSELOR Office Visit [address] [place] [address] Emmett Carrizales MD Bilateral lower extremity edema (Primary Dx); Nocturnal hypoxemia; Central sleep apnea; Essential hypertension, benign Discharge Disposition: Discharged to home or Selfcare 07/16/2024 Travel 07/14/2024 Documentation Only [facility] [address] [place] [address] Emmett Carrizales MD from Last 3 [...] Valent 06/14/2021 Pneumococcal conjugate PCV20 , polysaccharide YEO109 conjugate, adjuvant, PF 06/15/2022 TDAP Vaccine 08/08/2021 [...] drink = 0.6 oz pur e alcohol) [employer] Answer Date Recorded In the past 12 months has fflap, oil, or water [employer] threatened to shut off services in your home? No 09/06/2024 Social Connection and Isolat ion Panel [NHANES] Answer Date Recorded In a typical week, how many times do you talk on the phone with family, friends, or neighbors? More than three times a week 09/06/2024 How often do you get togethe r with friends or relatives? More than three times a week 09/06/2024 How often do you attend [facility] or episcopal services? More than 4 times per year 09/06/2024 Do you belong to any clubs o r organizations such as yarsani groups, unions, fraternal or athletic groups, or school groups? Yes 09/06/2024 How often do you attend meet ings of the clubs or organizations you belong to? Patient declined 09/06/2024 Are you , , di vorced, , never , or living with a partner? 09/06/2024 AUDIT-C Answer Date Recorded Q1: How often do you have a drink containing alcohol? Never 09/06/2024 Q2: How many drinks containi ng alcohol do you have on a typical day when you are drinking? Patient does not drink Q3: How often do you have si x or more drinks on one occasion? Never 09/06/2024 Overall Financial Resource Strain (CARDIA) Answe r Date Recorded How hard is it for you to pa y for the very basics like food, housing, medical care, and heating? Patient declined 09/06/2024 PHQ-2 Answer Date Recorded Total Score - Questions 1-9 0 08/2023 [facility] Occupat [facility] - Occupational Stress Questionnaire Answer Date Recorded Do you feel stress - tense, restless, nervous, or anxious, or unable to sleep at night because your mind is troubled all the time - these days? Only a little 09/06/2024 Exercise Vital Sign Answer Date Recorde d On average, how many days pe r week do you engage in moderate to strenuous exercise (like a brisk walk)? 0 days 09/06/2024 On average, how many minutes do you engage in exercise at this level? 20 min 09/06/2024 Hunger Vital Sign Answer Date Recorded Within the past 12 months, y ou worried that your food would run out before you got the money to buy more. Patient declined Within the past 12 months, t he food you bought just didn't last and you didn't have money to get more. Patient declined PRAPARE - Transportation Answer Date Re corded In the past 12 months, has l ack of transportation kept you from medical appointments or from getting medications? No 08/14 In the past 12 months, has l ack of transportation kept you from meetings, work, or from getting things needed for daily living? No 09/06/2024 Housing Stability Vital Sign Answer David e [...] place to sleep or slept in a snf (including now)? No 09/13/2023 Housing Stability Vital Sign Answer David e Recorded In the last 12 months, was t here a time when you were not able to pay the mortgage or rent on time? No 09/06/2024 Number of Times Moved in the Last Year Not on fi le 09/06/2024 At any time in the past 12 m [facility], were you homeless or living in a snf (including now)? No 09/06/2024 Education Answer Date Recorded What is the [...] Sign Reading Time Taken Comments Blood Pressure 140/88 09/25/2024 3:11 PM WORLD TRAVEL COUNSELOR Pulse 88 09/25/2024 3:11 PM WORLD TRAVEL COUNSELOR Temperature 36.7 C (98 F) 09/25/2024 3:11 PM WORLD TRAVEL COUNSELOR Respiratory Rate 12 09/25/2024 3:11 PM WORLD TRAVEL COUNSELOR Oxygen Saturation 95% 09/25/2024 3:11 PM WORLD TRAVEL COUNSELOR Inhaled Oxygen Concentration - - Weight 72.3 kg (159 lb 6.4 oz) 09/25/2024 3:11 P M WORLD TRAVEL COUNSELOR Height 157.5 cm (5' 2 ) 09/25/2024 3:11 PM WORLD TRAVEL COUNSELOR Body Mass Index 29.15 09/25/2024 3:11 PM WORLD TRAVEL COUNSELOR Plan of Treatment Upcoming Encounters Date Type Department Care Team (Late st Contact Info) Description 01/26/2025 9:45 AM CDT Office Visit [facility] - [facility] [address] [place] [address] Emmett Carrizales MD [address] [place] [address] Health Maintenance Due Date Last Done Comments Hepatitis C Virus (HCV) Screening 1950 Cologuard 2002 Immunochemical Fecal Occult Blood 2002 SARS-COV-2 Immunization ( season) 2024 03/23/2021, 11/18/2020, 11/02/2020, Additional history exists Mammogram 03/17/2025 03/17/2024, 11/14/2021 Colonoscopy 12/01/2025 12/01/2020 Colorectal Cancer Screening 12/01/2025 DEXA Bone Density 07/30/2026 07/30/2024, , 04/14/2022 [...] Injury Patient Goals On track(2024 11:16 AM WORLD TRAVEL COUNSELOR) Yes Karolyn Tobar RN Note: Follow Up [...] Appointments Patient Goals On track(2024 11:16 AM WORLD TRAVEL COUNSELOR) Yes Karolyn Tobar RN Note: Follow Up [...] Risk (Fall Risk) On track(2024 11:14 AM WORLD TRAVEL COUNSELOR) No Karolyn Tobar RN Note: Evidence-based guidance: Assess fall risk [...] been completed. Medical Devices Implanted Type Area Aerial Gunner Device Identifier Shelf Expiration Date Model / Serial / Lot K-Wire Plain .062 - [id number] Implanted:Qty : 1 on 08/01/2017 by Killian Reese DPM at [facility] IMPLANT Left: Foot [employer] KD-062-9 / KD-062-9 / [id number] Plate Humeral Proximal Left Distal Holex3 - [id number] Implanted:Qty : 1 on 11/15/2022 by Gamaliel Yi MD at [facility] IMPLANT Left: Humerus [employer] 12/10/2022 [id number] / [id number] / N/A Screw Bone Locking 4mm 26mm Self-Tapping - [id number] Implanted:Qty : 1 on 11/15/2022 by Gamaliel Yi MD at [facility] IMPLANT Left: Humerus [employer] 12/10/2022 [id number] / [id number] / [id number] Screw Bone Locking 4mm 40mm Self-Tapping - [id number] Implanted:Qty : 1 on 11/15/2022 by Gamaliel Yi MD at [facility] IMPLANT Left: Humerus [employer] 12/10/2022 [id number] / [id number] / N/A Screw Bone 3.5mm 26mm Ti Cortical Self-Tapping Axsos - [id number] Implanted:Qty : 1 on 11/15/2022 by Gamaliel Yi MD at [facility] IMPLANT Left: Humerus [employer] 12/10/2022 [id number] / [id number] / N/A Screw Bone 3.5mm 28mm Ti Cortical Self-Tapping Axsos - [id number] Implanted:Qty : 1 on 11/15/2022 by Gamaliel Yi MD at [facility] IMPLANT Left: H[employer] 12/10/2022 [id number] / [id number] / N/A 4mm Locking Screw Implanted:Qty : 3 on 11/15/2022 by Gamaliel Yi MD at [facility] Left: Humerus PHILLIP 12/10/2022 [id number] / [id number] / N/A 4mm Locking Screw Implanted:Qty : 1 on 11/15/2022 by Gamaliel Yi MD at [facility] Left: Humerus PHILLIP 12/10/2022 [id number] / [id number] / N/A Locking Screw Implanted:Qty : 1 on 11/15/2022 by Gamaliel Yi MD at [facility] 12/10/2022 [id number] / [id number] / N/A 4mm Locking Screw Implanted:Qty : 1 on 11/15/2022 by Gamaliel Yi MD at [facility] Left: Humerus PHILLIP 12/10/2022 [id number] / [id number] / N/A 4mm Locking Screw Implanted:Qty : 1 on 11/15/2022 by Gamaliel Yi MD at [facility] Left: Humerus PHILLIP 12/10/2022 [id number] / [id number] / N/A Procedures Procedure Name Priority Date/Time Associated Diagnosis Comments - CHEST 10/06/2024 12:00 AM WORLD TRAVEL COUNSELOR XR LUMBAR SPINE MINIMUM 4 VIEWS Routine 09/09/2024 12:46 PM WORLD TRAVEL COUNSELOR Low back pain, unspecified back pain laterality, unspecified chronicity, unspecified whether sciatica present URINALYSIS (UA) RANDOM 09/01/2024 12:00 AM WORLD TRAVEL COUNSELOR CULTURE, URINE 09/01/2024 12:00 AM WORLD TRAVEL COUNSELOR BONE DENSITY GENERIC 07/30/2024 12:00 AM WORLD TRAVEL COUNSELOR from Last 3 Months Results * US - CHEST (10/06/2024 12:00 AM WORLD TRAVEL COUNSELOR) 10/06/2024 us Provider Scan IMG US ORDERABLES Final Result SCAN * XR LUMBAR SPINE MINIMUM 4 VIEWS (09/09/2024 12:46 PM WORLD TRAVEL COUNSELOR) Anatomical Region Laterality Modality Spine, L-spine N/A Digital Radiogra phy 09/11/2024 10:2 1 AM WORLD TRAVEL COUNSELOR Impressions 09/11/2024 10:24 AM WORLD TRAVEL COUNSELOR IMPRESSION: Grade 2 anterolisthesis at L4-L5. Severe L4-L5, moderate L5-S1 and moderate T10-T11 degenerative disc disease. Narrative 09/11/2024 10:24 AM WORLD TRAVEL COUNSELOR EXAM DESCRIPTION: XR LUMBAR SPINE MINIMUM 4 VIEWS REASON FOR STUDY: Bilateral low back and sacral pain with sharp pain radiating into hips and difficulty ambulating x 2 weeks worse x 6 days after fall- constipation x 2 weeks-no surgery- no initial injury FINDINGS: Five views of the lumbar spine are submitted for interpretation without comparison. Grade 2 anterolisthesis at L4-L5. No compression fracture. Severe L4-L5, moderate L5-S1 and moderate T10-T11 degenerative disc disease are present. 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 Right upper quadrant clips are present. There are atherosclerotic vascular calcifications of the aorta. THIS IS AN ELECTRONICALLY VERIFIED FINAL REPORT 09/11/2024 10:21 AM - Electronically signed by John Paul Malik M.D. TH: TH Report ID: [id number] Reading Location: [id number] Procedure Note John Paul Malik MD - 09/11/2024 EXAM DESCRIPTION: XR LUMBAR SPINE MINIMUM 4 VIEWS REASON FOR STUDY: Bilateral low back and sacral pain with sharp pain radiating into hips and difficulty ambulating x 2 weeks worse x 6 days after fall- constipation x 2 weeks-no surgery- no initial injury FINDINGS: Five views of the lumbar spine are submitted for interpretation without comparison. Grade 2 anterolisthesis at L4-L5. No compression fracture. Severe L4-L5, moderate L5-S1 and moderate T10-T11 degenerative disc disease are present. 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 Right upper quadrant clips are present. There are atherosclerotic vascular calcifications of the aorta. THIS IS AN ELECTRONICALLY VERIFIED FINAL REPORT 09/11/2024 10:21 AM - Electronically signed by John Paul Malik M.D. TH: TH Report ID: [id number] Reading Location: [id number] IMPRESSION: Grade 2 anterolisthesis at L4-L5. Severe L4-L5, moderate L5-S1 and moderate T10-T11 degenerative disc disease. Kori Hudson [facility] IMG DIAGNOSTIC OR DERABLES Final Result * URINALYSIS (UA) RANDOM (09/01/2024 12:00 AM WORLD TRAVEL COUNSELOR) 09/01/2024 us Provider Scan URINE ORDERABLES Final Result SCAN * CULTURE, URINE (09/01/2024 12:00 AM WORLD TRAVEL COUNSELOR) 09/01/2024 us Provider Scan MICROBIOLOGY - GENERAL ORDERABLE S Final Result SCAN * BONE DENSITY GENERIC (07/30/2024 12:00 AM WORLD TRAVEL COUNSELOR) 07/30/2024 us Provider Scan IMG DEXA ORDERABLES Final Result SCAN from Last 3 Months Additional Health Concerns Active Problems Noted Date Diagnosed Date Fall Risk (Fall Risk) 09/13/2023 Insurance [place] [address] Advance Directives * Full Code (Latest Code Status on File) Date Activated Date Inactivated Comments 11/28/2022 1:24 PM 12/15/2022 8:38 AM Care Teams Manufacturing Quality Engineer Relationship Specialty Start Date End Date Emmett Carrizales MD [address] [place] [id number] PCP - General Internal Medicine 06/29/15 Karolyn Tobar, RN [place] Nurse Cheese Grader 06/07/23 Ifrah Whitfield, AIRAM, HOT DIP PLATER #[address] [address] Nurse Practitioner Advanced Practice Nurse 03/06/22
--- OUTSIDE RECORDS SUMMARY | 2024-10-06 15:39 | XMS_ITS | Encounter Summary ---
Author Organization [facility] Address [address] [place] [address] Phone Care Team Providers Care Employment Instructional Associate Name Role Phone Emmett Carrizales MD Primary Care Provider [phone] Karolyn Tobar RN Unavailable Unavailable Ifrah Whitfield APRN, MERCHANDISE SUPERVISOR Unavailable [phone] Reason for Visit * Reason Comments Medication Refill Encounter Details Date Type Department Care Team (Late st Contact Info) Description 10/15/2023 Refill [facility] - Internal Medicine - [place] [address] [place] [address] Kori Hudson, [facility] [address] [place] [address] Medication Refill Social History Tobacco Use Types Packs/Day Years Used Date Smoking Tobacco: Never Passive Smoke Exposure: Never Smokeless Tobacco: Never Alcohol Use Standard Drinks/Week Comments Not Currently 0 (1 standard drink = 0.6 oz pur e alcohol) [facility] Utilities Answer Date Recorded In the [...] often do you attend chur ch or hinduism services? Never 09/13/2023 Do you belong to [...] Total Score - Questions 1-9 0 08/2023 [facility] of Occupat ional [facility] - Occupational Stress Questionnaire Answer Date Recorded [...] PM CST Medication(s) refilled and [facility] Medication Refill Standing Order for Pediatricand [...] 10/11/23 Office Visit Emmett Carrizales MD [facility] 07/12/23 Office Visit Emmett Carrizales MD [facility] 06/07/23 Office Visit Emmett Carrizales MD [facility] 05/22/23 Office Visit Kori Hudson, MART[facility]N [facility] [place] 04/11/23 Office Visit Emmett Carrizales MD [facility] [place] Showing recent visits within past 270 days and meeting all other requirements Future Appointments Date Type Provider Dept 01/09/24 Appointment Emmett Carrizales MD [facility] [place] Showing future appointments within next 90 days and meeting all other requirements Passed - Blood pressure on record in past 12 months Clinician-entered: BP Readings from Last 3 Encounters: 10/11/23 126/72 07/12/23 122/70 06/07/23 122/70 Patient-entered: No data recorded ER COVERING MACHINE OPERATOR documented in this encounter Plan of Treatment Upcoming Encounters Date Type Department Care Team (Late st Contact Info) Description 01/26/2025 9:45 AM CDT [facility] [place] [address] [place] [address] Emmett Carrizales MD [address] [place] [address] documented as of this encounter Goals Goal Patient Goal Type Associated Problems Recent Progress Patient-Stated? Author Prevent Falls and Injury Patient Goals On track(2024 11:16 AM RUBBER COVERING MACHINE OPERATOR) Yes Karolyn Tobar, RN Note: Follow [...] alert plan in case I fall - warehouse order picker clutter from the floors - use [...] Appointments Patient Goals On track(2024 11:16 AM RUBBER COVERING MACHINE OPERATOR) Yes Karolyn Tobar RN Note: Follow Up [...] Risk (Fall Risk) On track(2024 11:14 AM RUBBER COVERING MACHINE OPERATOR) No Karolyn Tobar RN Note: Evidence-based guidance: [...] Total Score: 0 09/13/19 24 1:30 PM RUBBER COVERING MACHINE OPERATOR documented as of this encounter Care Teams Employment Instructional Associate Relationship Specialty Start Date End Date Emmett Carrizales MD [address] [place] [address] PCP - General Internal Medicine 06/29/15 Karolyn Tobar, [place] Nurse Advertising Display Rotator 06/07/23 Ifrah Whitfield APRN, MERCHANDISE SUPERVISOR #[address] [address] Nurse Practitioner Advanced Practice Nurse 03/06/22 documented as of this encounter
--- OUTSIDE RECORDS SUMMARY | 2024-10-06 15:39 | XMS_ITS | Encounter Summary ---
Author Organization [facility] Address [address] [place] [address] Phone Care Team Providers Care Spray Gunner Name Role Phone Emmett Carrizales MD Primary Care Provider [phone]- [phone] Karolyn Tobar RN Unavailable Unavailable Ifrah Whitfield APRN, COGNOS DEVELOPER Unavailable +1- [phone] Reason for Visit * Reason Comments Medication Refill Encounter Details Date Type Department Care Team (Late st Contact Info) Description 11/12/2023 Refill [facility] Emergency [address] [place] [address] Emmett Carrizales MD [address] [place] [address] Medication Refill Social History Tobacco Use Types Packs/Day Years Used Date Smoking Tobacco: Never Passive Smoke Exposure: Never Smokeless Tobacco: Never Alcohol Use Standard Drinks/Week Comments Not Currently 0 (1 standard drink = 0.6 oz pur e alcohol) [facility] Utilities Answer Date Recorded In the [...] often do you attend chur ch or mandaeism services? Never 09/13/2023 Do you belong to any clubs o r organizations such as zoroastrianism groups, unions, fraternal or athletic groups, or [...] Total Score - Questions 1-9 0 08/2023 [facility] - [...] place to sleep or slept in a halfway (including now)? No 09/13/2023 Education Answer Date [...] [facility] - [place] [address] [place] [id number] Emmett Carrizales MD [address] [place] [address] documented as of this encounter Goals Goal Patient Goal Type Associated Problems Recent Progress Patient-Stated? Author Prevent Falls and Injury Patient Goals On track(2024 11:16 AM RAIL CAR PAINTER/SANDBLASTER) Yes Karolyn Tobar, RN Note: Follow Up [...] plan in case I fall - picker tender clutter from the floors - use a [...] Appointments Patient Goals On track(2024 11:16 AM RAIL CAR PAINTER/SANDBLASTER) Yes Karolyn Tobar RN Note: Follow Up [...] Risk (Fall Risk) On track(2024 11:14 AM RAIL CAR PAINTER/SANDBLASTER) No Karolyn Tobar RN Note: Evidence-based guidance: [...] Total Score: 0 09/13/19 24 1:30 PM RAIL CAR PAINTER/SANDBLASTER documented as of this encounter Care Teams Spray Gunner Relationship Specialty Start Date End Date Emmett Carrizales MD [address] [facility] [place] [address] PCP - General Internal Medicine 06/29/15 Karolyn Tobar, RN [place] Nurse Access Specialist 06/07/23 Ifrah Whitfield APRN, COGNOS DEVELOPER #[address] [address] Nurse Practitioner Advanced Practice Nurse 03/06/22 documented as of this encounter
--- OUTSIDE RECORDS SUMMARY | 2024-10-06 15:39 | XMS_ITS | Clinical Summary ---
Author Organization [facility] Address [address] [place] [address] Phone Care Team Providers Care Restaurant Server Name Role Phone RHIANNON DAI, EILEEN JJ [...] Active Last Documented On 7 10:35AM ; [facility] Past Visits Onset Date Resolved Date Provider Condition Status Depressive Disorder, Nos 04/13/2018 EILEEN VINCENT MD Active Last Documented On 8 6:05AM ; [facility] Adult Attention Deficit Hype ractivity Disorder 01/16/2017 EILEEN VINCENT MD Active Last Documented On 7 11:10AM ; [facility] Bipolar I Disorder 03/13/2015 EILEEN BREEN MD Active Last Documented On 5 10:21AM ; [facility] Dementia 02/10/2015 EILEEN VINCENT MD Ac tive Last Documented On 5 10:58AM ; [facility] Generalized Anxiety Disorder 02/10/2015 EILEEN VINCENT MD Active Last Documented On 5 10:22AM ; [facility] Mild cognitive impairment of uncertain or unknown etiology 02/10/2015 EILEEN VINCENT MD Active Last Documented On 5 10:36AM ; [facility] Restless Legs Syndrome 07/28/2013 EILEEN DE LA VEGA MD Active Last Documented On 1 11:20AM ; [facility] Sleep apnea, unspecified 04/14/2013 EILEEN VINCENT MD Active Last Documented On 5 10:51AM ; [facility] Hypothyroidism, unspecified 08/02/2012 EILEEN VINCENT MD Active Last Documented On 5 10:49AM ; [facility] Gastro-esophageal reflux dis ease without esophagitis 08/02/2012 EILEEN VINCENT MD Active Last Documented On 5 10:37AM ; [facility] Fracture of Nasal Bones 08/02/2012 EILEEN VINCENT MD Active Last Documented On 2 11:16AM ; [facility] Hyperlipidemia, unspecified 08/02/2012 EILEEN VINCENT MD Active Last Documented On 5 10:38AM ; [facility] Essential (primary) hypertension 08/02/2012 MET LEONIDES VINCENT MD Active Last Documented On 5 10:38AM ; [facility] Irritable bowel syndrome without diarrhea 08/02/2012 EILEEN VINCENT MD Active Last Documented On 5 10:50AM ; [facility] Plan of Treatment No Plan of Treatment Recorded Assessments Includes: Assessments from this encounter Findings - Psychophysiological insomnia - Last Documented On 04/11/2022 6:59PM ; [facility] Medical Equipment - Implanted Devices [...] at bed time Pharmacy: [facility], [address] - Last Documented On 2 12:18PM By Radha Vincent MD ; [facility] Current Medications (continue as prescribed) Mydayis 37.5 MG Oral Capsule Extended Release 24 Hour 12/07/2022 Provider: EILEEN VINCENT MD Diagnosis: Attention-defici t hyperactivity disorder, combined type 1 Capsule every morning Last Documented On 12/07/2022 4:33PM By Radha Vincent MD ; [facility] hydrOXYzine HCl 25 MG Oral Tablet 10/17/2022 Provide r: EILEEN VINCENT MD Diagnosis: 1 tab a day as needed only for itching/anxiety Last Documented On 10/17/2022 7:11PM By Radha Vincent MD ; [facility] Belsomra 10 MG Oral Tablet 09/27/2022 Provider: EILEEN VINCENT MD Diagnosis: Psychophysiologi c insomnia DIRECTED - ONE (1) TAB AT BEDTIME NEEDED FOR SLEEP Last Documented On 3 11:26AM By Radha Vincent MD ; [facility] Escitalopram Oxalate 20 MG Oral Tablet 09/25/2022 Provider: EILEEN VINCENT MD Diagnosis: Generalized anxi ety disorder TAKE ONE TABLET BY MOUTH DAILY Last Documented On 3 10:40AM By Radha Vincent MD ; [facility] lamoTRIgine 150 MG Oral Tablet 09/25/2022 Provider: EILEEN VINCENT MD Diagnosis: TAKE ONE TABLET BY MOUTH TWO TIMES A DAY Last Documented On 3 10:40AM By Radha Vincent MD ; [facility] rOPINIRole HCl 2 MG Oral Tablet 09/25/2022 Provider: EILEEN VINCENT MD Diagnosis: Restless legs sy ndrome DIRECTED - ONE (1) TAB AT FIVE (5) IN THE EVENING FOR RESTLESS LEGS Last Documented On 3 10:37AM By Radha Vincent MD ; [facility] buPROPion HCl ER (XL) 300 MG Oral Tablet Extended Release 24 Hour 07/03/2022 Provider: EILEEN VINCENT MD Diagnosis: Major depressive disorder, single episode, unspecified 1 tablet every morning Last Documented On 07/03/2022 1:56PM By Radha Vincent MD ; [facility] Alendronate Sodium 70 MG Oral Tablet 06/19/2022 Prov ider: WOLF MANJARREZ MD Diagnosis: 1 tab weekly Last Documented On 2 11:54AM By WISAM CASH ; [facility] traZODone HCl 50 MG Oral Tablet 02/07/2022 Provider: EILEEN VINCENT MD Diagnosis: TAKE ONE (1) OR TWO (2) TABL ETS BY MOUTH AT BEDTIME NEEDED SLEEP Last Documented On 2 10:04AM By Radha Vincent MD ; [facility] Levothyroxine Sodium 100 MCG Oral Capsule 04/14/2020 Provider: GOLDIE MONTES MD Diagnosis: 1 tab daily Last Documented On 0 11:36AM By WISAM CASH ; [facility] Pantoprazole Sodium 40 MG Or al Tablet Delayed Release 11/15/2019 Provider: MUSA DEJESUS Diagnosis: 1 tab daily Last Documented On 0 11:20AM By WISAM CASH ; [facility] Azelastine HCl 0.15% Nasal Solution 08/21/2019 Provi itz: GOLDIE MONTES MD Diagnosis: 2 sprays in each nostril twice a day Last Documented On 0 11:35AM By WISAM CASH ; [facility] Ferrous Sulfate 325 (65 Fe) MG Oral Tablet 04/10/2019 Provider: GOLDIE MONTES MD Diagnosis: 1 tab daily Last Documented On 04/10/2019 1:36PM By WISAM CASH ; [facility] Fluticasone Propionate 50MCG /ACT Nasal Suspension 07/25/2018 Provider: BETSY VALENCIA MD Diagnosis: 2 sprays in each nostril daily Last Documented On 11/28/2018 3:50PM By WISAM CASH ; [facility] Amlodipine Besy-Benazepril H Cl 5-10 MG Capsule, conventional 03/04/2016 Provider: BETSY VALENCAI MD Diagnosis: 1 daily Last Documented On 6 9:55AM By WILMER REDDY LPN ; [facility] Lipitor 20 MG Tablet 11/10/2015 Provider: JEFFERSON VALENCIA MD Diagnosis: 1 tablet every evening Last Documented On 6 10:25AM By WILMER REDDY LPN ; [facility] Dicyclomine HCl 10 MG Capsule, conventional 11/10/2015 Provider: BETSY VALENCIA MD Diagnosis: 1 capsule daily Last Documented On 6 10:22AM By WILMER REDDY LPN ; [facility] Aspirin 81 MG Tablet 11/10/2015 Provider: JEFFERSON VALENCIA MD Diagnosis: 1 tablet daily Last Documented On 6 10:23AM By WILMER REDDY LPN ; [facility] Lasix 20 MG Tablet 11/10/2015 Provider: BETSY VALENCIA MD Diagnosis: 1 tablet every morning Last Documented On 6 10:24AM By WILMER REDDY LPN ; [facility] Suspended Medications Trintellix 10 MG Oral Tablet 11/16/2022 Provider: EILEEN VINCENT MD Diagnosis: Major depressive disorder, single episode, unspecified TAKE ONE (1) TABLET BY MOUTH DAILY Last Documented On 3 12:52PM By Radha Vincent MD ; [facility] Namzaric 28-10 MG Oral Capsule Extended Release 24 Hour 10/17/2022 Provider: EILEEN VINCENT MD Diagnosis: Dem in oth dis c lassd elswhr,unsp sev,w/o beh/psych/mood/anx TAKE ONE CAPSULE BY MOUTH EV HELLEN MORNING Last Documented On 3 11:37AM By Radha Vincent MD ; [facility] busPIRone HCl 15 MG Oral Tablet 08/29/2022 Provider: EILEEN VINCENT MD Diagnosis: TAKE ONE TABLET BY MOUTH THREE TIMES a DAY Last Documented On 08/29/2022 3:43PM By Radha Vincent MD ; [facility] Past Medications on file hydrOXYzine HCl 25 MG Oral Tablet 10/08/2020 - 11/07/2020 Provider: EILEEN VINCENT MD Diagnosis: Generalized anxi ety disorder as directed - 1 tab a day as needed for agitation/anxiety Last Documented On 10/08/2020 2:47PM By Radha Vincent MD ; [facility] LaMICtal 150MG Oral Tablet 09/24/2018 - 09/27/2018 Provider: EILEEN VINCENT MD Diagnosis: Bipolar disorder , unspecified One tablet twice a day Last Documented On 09/24/2018 1:31PM By Radha Vincent MD ; [facility] Atorvastatin Calcium 20 MG OR TABS 01/28/2013 - 2012 Provider: Diagnosis: Last Documented On 3 3:46PM By TERRI CASH ; [facility] Medications Administered Includes: Administered Medications [...] esolved Last Documented On 9 1:33PM ; [facility] Sulfa Antibiotics Allergy 08/02/2012 A ctive Last Documented On 4 11:08AM ; [facility] Note: Imported from external source. Neupro Allergy rash 10/23/2013 Active Last Documented On 4 11:08AM ; [facility] Note: Imported from external source. Encounters Encounter Provider Location Date Check-In Time Check-Out Time Diagnosis * PHONE CALL EILEEN VINCENT MD [facility] [id number] 2:51PM 11:59PM Psychophysiological Insomnia Insurance Includes: Active Insurance Policies Plan Name Member ID Group # Subscriber Relationship Effect kofi Dates 1 [facility] [place] [id number] EDITH DARBY Self 2 - [facility] [id number] INGRID DARBY J 0 - Unknown Clinical Notes Includes: Clinical Notes from this encounter No Clinical Notes Recorded
--- OUTSIDE RECORDS SUMMARY | 2024-10-06 15:39 | XMS_ITS | Encounter Summary ---
Author Organization [facility] Address [address] [facility] [place] [address] Phone Care Team Providers Care Yarn Winder Name Role Phone Emmett Carrizales MD Primary Care Provider [phone]- [phone] Karolyn Tobar RN Unavailable Unavailable Ifrah Whitfield APRN, ULTRASONIC HAND SOLDERER Unavailable Reason for Visit * Reason Onset Date Comments Care Management 10/03/2024 [facility] Encounter Details Date Type Department Care Team ([facility] st Contact Info) Description 10/03/2024 Patient Outreach [facility] Automobile Appraiser Management [address] [place] [address] Karolyn Tobar, RN [place] Care Management ([facility]) Social History Tobacco Use Types Packs/Day Years Used Date Smoking Tobacco: Never Passive Smoke Exposure: Never Smokeless Tobacco: Never Alcohol Use Standard Drinks/Week Comments Not Currently 0 (1 standard drink = 0.6 oz pur e alcohol) [facility] Utilities Answer Date Recorded In the past 12 months has [employer], gas, oil, or water company threatened to [...] week 09/06/2024 How often do you attend chur or rastafari services? More than 4 times per year 09/06/2024 Do you belong to any clubs o r organizations such as faith groups, unions, fraternal or athletic groups, or [...] Total Score - Questions 1-9 0 08/2023 [facility] - [...] place to sleep or slept in a custodial (including now)? No 09/13/2023 Housing Stability Vital Sign Answer David e Recorded In the last 12 months, was t here a time when you were not able to pay the mortgage or rent on time? No 09/06/2024 Number of Times Moved in the Last Year Not on fi le 09/06/2024 At any time in the past 12 m [facility], were you homeless or living in a custodial (including now)? No 09/06/2024 Education Answer Date [...] [facility] - Internal Medicine - [place] [address] [place] [id number] Emmett Carrizales MD [address] [place] [address] documented as of this encounter Goals Goal Patient Goal Type Associated Problems Recent Progress Patient-Stated? Author Prevent Falls and Injury Patient Goals On track(2024 11:16 AM MOTORCYLES FINAL INSPECTOR) Yes Karolyn Tobar, RN Note: Follow Up [...] alert plan in case I fall - flower buncher or picker clutter from the floors - use [...] Appointments Patient Goals On track(2024 11:16 AM MOTORCYLES FINAL INSPECTOR) Yes Karolyn Tobar RN Note: Follow Up [...] Risk (Fall Risk) On track(2024 11:14 AM MOTORCYLES FINAL INSPECTOR) Karolyn Wakefield RN Note: Evidence-based guidance: Assess [...] Total Score: 0 09/13/19 24 1:30 PM MOTORCYLES FINAL INSPECTOR documented as of this encounter Care Teams Yarn Winder Relationship Specialty Start Date End Date Emmett Carrizales MD [address] [place] [address] PCP - General Internal Medicine 06/29/15 Karolyn Tobar, [place] Nurse Lace Stripper 06/07/23 Ifrah Whitfield APRN, ULTRASONIC HAND SOLDERER #[address] [address] Nurse Practitioner Advanced Practice Nurse 03/06/22 documented as of this encounter
--- OUTSIDE RECORDS SUMMARY | 2024-10-06 15:39 | XMS_ITS ---
Author Organization [facility] Address [address] [place] [address] Phone Care Team Providers Care Sifter Operator Name Role Phone RHIANNON DAI, EILEEN JJ Unavailable [phone] Problems Includes: Active, inactive, and resolved Problems All Visits Onset Date Resolved Date Provider Condition S tatus Depressive Disorder, Nos 04/13/2018 Active Last Documented On 3 5:51PM ; [facility] Adult Attention Deficit Hyperactivity Disorder 01/16/2017 Active Last Documented On 3 5:50PM ; [facility] Psychophysiological Insomnia 09/27/2016 Active Last Documented On 3 5:50PM ; [facility] Bipolar I Disorder 03/13/2015 Active Last Documented On 3 5:48PM ; [facility] Dementia 02/10/2015 Active Last Documented On 3 5:48PM ; [facility] Generalized Anxiety Disorder 02/10/2015 Active Last Documented On 3 5:48PM ; [facility] Mild Cognitive Impairment 02/10/2015 EILEEN VINCENT MD Active Last Documented On 3 5:01PM ; [facility] Persistent Insomnia 11/11/2013 Inact kofi Last Documented On 3 5:47PM ; [facility] Restless Legs Syndrome 07/28/2013 Ac tive Last Documented On 3 5:48PM ; [facility] Restless Legs Syndrome 07/28/2013 In active Last Documented On 3 5:46PM ; [facility] Nonorganic Sleep Apnea Obstructive 04/14/2013 Inactive Last Documented On 3 5:46PM ; [facility] 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 EILEEN DE LA VEGA MD Active Last Documented On 3 5:01PM ; [facility] Bipolar I Disorder, Most Recent Episode, Depressed 013 Inactive Last Documented On 3 5:44PM ; [facility] PRESENILE DEMENTIA 08/07/2012 Inacti ve Last Documented On 3 5:42PM ; [facility] Note: Probable dementia Hypothyroidism, unspecified 08/02/2012 Active Last Documented On 3 5:48PM ; [facility] Esophageal Reflux 08/02/2012 Inactiv e Last Documented On 3 5:42PM ; [facility] Gastro-esophageal reflux disease without esophagitis 08/02 Active Last Documented On 3 5:48PM ; [facility] Fracture of Nasal Bones 08/02/2012 A ctive Last Documented On 3 5:42PM ; [facility] GENERALIZED ANXIETY DIS 08/02/2012 I nactive Last Documented On 3 5:42PM ; [facility] Hyperlipidemia 08/02/2012 Inactive Last Documented On 3 5:42PM ; [facility] Hyperlipidemia, unspecified 08/02/2012 Active Last Documented On 3 5:48PM ; [facility] Essential (primary) hypertension 08/02/2012 Active Last Documented On 3 5:48PM ; [facility] Hypertension Systemic 08/02/2012 Angela ctive Last Documented On 3 5:42PM ; [facility] Hypothyroidism 08/02/2012 Inactive Last Documented On 3 5:42PM ; [facility] Irritable Bowel Syndrome 08/02/2012 Inactive Last Documented On 3 5:42PM ; [facility] Irritable bowel syndrome without diarrhea 08/02/2012 Active Last Documented On 3 5:48PM ; [facility] Reported Trauma To Head 08/02/2012 I nactive Last Documented On 3 5:42PM ; [facility] Plan of Treatment Future Appointments Date Time Location [facility] ADULT PSYCH ESTABLISHED 12/24/2024 11:00AM [facility] VINCENT MD Last Documented On 5 4:04PM ; [facility] Education and Decision Aids were provided during visit for: Patient counseling I discuss ed risk, benefits, and side effects of sleep aid - Belsomra - including the possibility of sleep related behaviors i.e. sleepwalking, sleeptalking, sleepdriving, etc... Pt verbalized understanding Last Documented On 4 11:46AM ; [facility] I recommended cognitive exer cises such as reading and/or word search puzzles, etc.. Last Documented On 4 11:46AM ; [facility] Calming techniques such as b reathing exercises/meditation and other relaxation techniques Last Documented On 4 4:34AM ; [facility] Patient counseling I discuss ed risk, benefits, and side effects of sleep aid - Belsomra - including the possibility of sleep related behaviors i.e. sleepwalking, sleeptalking, sleepdriving, etc... Pt verbalized understanding Last Documented On 4 11:43AM ; [facility] I recommended cognitive exer cises such as reading and/or word search puzzles, etc.. Last Documented On 4 11:41AM ; [facility] Calming techniques such as b reathing exercises/meditation and other relaxation techniques Last Documented On 4 3:40AM ; [facility] Patient counseling I discuss ed risk, benefits, and side effects of sleep aid - Belsomra - including the possibility of sleep related behaviors i.e. sleepwalking, sleeptalking, sleepdriving, etc... Pt verbalized understanding Last Documented On 3 10:27AM ; [facility] I recommended cognitive exer cises such as reading and/or word search puzzles, etc.. Last Documented On 3 10:28AM ; [facility] Patient counseling I discuss ed risk, benefits, and side effects of sleep aid - Belsomra - including the possibility of sleep related behaviors i.e. sleepwalking, sleeptalking, sleepdriving, etc... Pt verbalized understanding Last Documented On 3 10:45AM ; [facility] Discussed good sleep hygiene habits Last Documented On 3 7:14AM ; [facility] I recommended cognitive exer cises such as reading and/or word search puzzles, etc.. Last Documented On 3 7:14AM ; [facility] Patient counseling I discuss ed risk, benefits, and side effects of sleep aid Belsomra - including the possibility of sleep related behaviors i.e. sleepwalking, sleeptalking, sleepdriving, etc... Pt verbalized understanding Last Documented On 3 5:09PM ; [facility] Discussed good sleep hygiene habits Last Documented On 3 5:08PM ; [facility] I recommended cognitive exer cises such as reading and/or word search puzzles, etc.. Last Documented On 3 1:47AM ; [facility] Assessments Includes: Assessments for all patient encounters Findings Encounter Date Adult attention deficit hype ractivity disorder [facility] ADULT PSYCH ESTABLISHED with EILEEN VINCENT MD 12/19/2023 Last Documented On 4 4:37AM ; [facility] Bipolar I disorder TELEHEALTH ADULT PSY CH ESTABLISHED with EILEEN VINCENT MD 12/19/2023 Last Documented On 4 4:37AM ; [facility] Dementia TELEHEALTH ADULT PSYCH ESTABLISH ED with EILEEN VINCENT MD 12/19/2023 Last Documented On 4 4:37AM ; [facility] Depressive disorder TELEHEALTH ADULT PSY CH ESTABLISHED with EILEEN VINCENT MD 12/19/2023 Last Documented On 4 4:37AM ; [facility] Generalized anxiety disorder TELEHEALTH ADULT PSYCH ESTABLISHED with EILEEN VINCENT MD 12/19/2023 Last Documented On 4 4:37AM ; [facility] Mild Cognitive Impairment [facility] ESTABLISHED with EILEEN VINCENT MD 12/19/2023 Last Documented On 4 4:37AM ; [facility] Nonorganic sleep apnea TELEHEALTH ADULT PSYCH ESTABLISHED with EILEEN VINCENT MD 12/19/2023 Last Documented On 4 4:37AM ; [facility] Psychophysiological insomnia TELEHEALTH ADULT PSYCH ESTABLISHED with EILEEN VINCENT MD 12/19/2023 Last Documented On 4 4:37AM ; [facility] Restless legs syndrome TELEHEALTH ADULT PSYCH ESTABLISHED with EILEEN VINCENT MD 12/19/2023 Last Documented On 4 4:37AM ; [facility] Dementia * PHONE CALL with EILEEN HAAS MD 12/12/2023 Last Documented On 4 5:57PM ; [facility] Adult attention deficit hype ractivity disorder * PHONE CALL with EILEEN VINCENT MD 10/31/2023 Last Documented On 4 11:49AM ; [facility] Adult attention deficit hype ractivity disorder TELEHEALTH ADULT PSYCH ESTABLISHED with EILEEN VINCENT MD 09/14/2023 Last Documented On 4 3:43AM ; [facility] Bipolar I disorder TELEHEALTH ADULT PSY CH ESTABLISHED with EILEEN VINCENT MD 09/14/2023 Last Documented On 4 3:43AM ; [facility] Dementia TELEHEALTH ADULT PSYCH ESTABLISH ED with EILEEN VINCENT MD 09/14/2023 Last Documented On 4 3:43AM ; [facility] Depressive disorder TELEHEALTH ADULT PSY CH ESTABLISHED with EILEEN VINCENT MD 09/14/2023 Last Documented On 4 3:43AM ; [facility] Generalized anxiety disorder TELEHEALTH ADULT PSYCH ESTABLISHED with EILEEN VINCENT MD 09/14/2023 Last Documented On 4 3:43AM ; [facility] Mild Cognitive Impairment [facility] PS[facility] ESTABLISHED with EILEEN VINCENT MD 09/14/2023 Last Documented On 4 3:43AM ; [facility] Nonorganic sleep apnea TELEHEALTH ADULT PSYCH ESTABLISHED with EILEEN VINCENT MD 09/14/2023 Last Documented On 4 3:43AM ; [facility] Psychophysiological insomnia TELEHEALTH ADULT PSYCH ESTABLISHED with EILEEN VINCENT MD 09/14/2023 Last Documented On 4 3:43AM ; [facility] Restless legs syndrome TELEHEALTH ADULT PSYCH ESTABLISHED with EILEEN VINCENT MD 09/14/2023 Last Documented On 4 3:43AM ; [facility] Adult attention deficit hype ractivity disorder TELEHEALTH ADULT PSYCH ESTABLISHED with EILEEN VINCENT MD 06/29/2023 Last Documented On 3 5:08PM ; [facility] Bipolar I disorder TELEHEALTH ADULT PSY CH ESTABLISHED with EILEEN VINCENT MD 06/29/2023 Last Documented On 3 5:08PM ; [facility] Dementia TELEHEALTH ADULT PSYCH ESTABLISH ED with EILEEN VINCENT MD 06/29/2023 Last Documented On 3 5:08PM ; [facility] Depressive disorder TELEHEALTH ADULT PSY CH ESTABLISHED with EILEEN VINCENT MD 06/29/2023 Last Documented On 3 5:08PM ; [facility] Generalized anxiety disorder TELEHEALTH ADULT PSYCH ESTABLISHED with EILEEN VINCENT MD 06/29/2023 Last Documented On 3 5:08PM ; [facility] Mild Cognitive Impairment [facility] ESTABLISHED with EILEEN VINCENT MD 06/29/2023 Last Documented On 3 5:08PM ; [facility] Nonorganic sleep apnea TELEHEALTH ADULT PSYCH ESTABLISHED with EILEEN VINCENT MD 06/29/2023 Last Documented On 3 5:08PM ; [facility] Psychophysiological insomnia TELEHEALTH ADULT PSYCH ESTABLISHED with EILEEN VINCENT MD 06/29/2023 Last Documented On 3 5:08PM ; [facility] Restless legs syndrome TELEHEALTH ADULT PSYCH ESTABLISHED with EILEEN VINCENT MD 06/29/2023 Last Documented On 3 5:08PM ; [facility] Adult attention deficit hype ractivity disorder TELEHEALTH ADULT PSYCH ESTABLISHED with EILEEN VINCENT MD 04/18/2023 Last Documented On 3 7:22AM ; [facility] Bipolar I disorder TELEHEALTH ADULT PSY CH ESTABLISHED with EILEEN VINCENT MD 04/18/2023 Last Documented On 3 7:22AM ; [facility] Dementia TELEHEALTH ADULT PSYCH ESTABLISH ED with EILEEN VINCENT MD 04/18/2023 Last Documented On 3 7:22AM ; [facility] Depressive disorder TELEHEALTH ADULT PSY CH ESTABLISHED with EILEEN VINCENT MD 04/18/2023 Last Documented On 3 7:22AM ; [facility] Generalized anxiety disorder TELEHEALTH ADULT PSYCH ESTABLISHED with EILEEN VINCENT MD 04/18/2023 Last Documented On 3 7:22AM ; [facility] Mild Cognitive Impairment [facility] PS[facility] ESTABLISHED with EILEEN VINCENT MD 04/18/2023 Last Documented On 3 7:22AM ; [facility] Nonorganic sleep apnea TELEHEALTH ADULT PSYCH ESTABLISHED with EILEEN VINCENT MD 04/18/2023 Last Documented On 3 7:22AM ; [facility] Psychophysiological insomnia TELEHEALTH ADULT PSYCH ESTABLISHED with EILEEN VINCENT MD 04/18/2023 Last Documented On 3 7:22AM ; [facility] Restless legs syndrome TELEHEALTH ADULT PSYCH ESTABLISHED with EILEEN VINCENT MD 04/18/2023 Last Documented On 3 7:22AM ; [facility] Adult attention deficit hype ractivity disorder TELEHEALTH ADULT PSYCH ESTABLISHED with EILEEN VINCENT MD 02/23/2023 Last Documented On 3 1:50AM ; [facility] Bipolar I disorder TELEHEALTH ADULT PSY CH ESTABLISHED with EILEEN VINCENT MD 02/23/2023 Last Documented On 3 1:50AM ; [facility] Dementia TELEHEALTH ADULT PSYCH ESTABLISH ED with EILEEN VINCENT MD 02/23/2023 Last Documented On 3 1:50AM ; [facility] Depressive disorder TELEHEALTH ADULT PSY CH ESTABLISHED with EILEEN VINCENT MD 02/23/2023 Last Documented On 3 1:50AM ; [facility] Generalized anxiety disorder TELEHEALTH ADULT PSYCH ESTABLISHED with EILEEN VINCENT MD 02/23/2023 Last Documented On 3 1:50AM ; [facility] Mild Cognitive Impairment [facility] PS[facility] ESTABLISHED with EILEEN VINCENT MD 02/23/2023 Last Documented On 3 1:50AM ; [facility] Nonorganic sleep apnea TELEHEALTH ADULT PSYCH ESTABLISHED with EILEEN VINCENT MD 02/23/2023 Last Documented On 3 1:50AM ; [facility] Psychophysiological insomnia TELEHEALTH ADULT PSYCH ESTABLISHED with EILEEN VINCENT MD 02/23/2023 Last Documented On 3 1:50AM ; [facility] Restless legs syndrome TELEHEALTH ADULT PSYCH ESTABLISHED with EILEEN VINCENT MD 02/23/2023 Last Documented On 3 1:50AM ; [facility] Instructions Includes: Instructions for all patient encounters Education and Decision Aids were provided during visit for: Patient counseling I discuss ed risk, benefits, and side effects of sleep aid - Belsomra - including the possibility of sleep related behaviors i.e. sleepwalking, sleeptalking, sleepdriving, etc... Pt verbalized understanding Last Documented On 4 11:46AM ; [facility] I recommended cognitive exer cises such as reading and/or word search puzzles, etc.. Last Documented On 4 11:46AM ; [facility] Calming techniques such as b reathing exercises/meditation and other relaxation techniques Last Documented On 4 4:34AM ; [facility] Patient counseling I discuss ed risk, benefits, and side effects of sleep aid - Belsomra - including the possibility of sleep related behaviors i.e. sleepwalking, sleeptalking, sleepdriving, etc... Pt verbalized understanding Last Documented On 4 11:43AM ; [facility] I recommended cognitive exer cises such as reading and/or word search puzzles, etc.. Last Documented On 4 11:41AM ; [facility] Calming techniques such as b reathing exercises/meditation and other relaxation techniques Last Documented On 4 3:40AM ; [facility] Patient counseling I discuss ed risk, benefits, and side effects of sleep aid - Belsomra - including the possibility of sleep related behaviors i.e. sleepwalking, sleeptalking, sleepdriving, etc... Pt verbalized understanding Last Documented On 3 10:27AM ; [facility] I recommended cognitive exer cises such as reading and/or word search puzzles, etc.. Last Documented On 3 10:28AM ; [facility] Patient counseling I discuss ed risk, benefits, and side effects of sleep aid - Belsomra - including the possibility of sleep related behaviors i.e. sleepwalking, sleeptalking, sleepdriving, etc... Pt verbalized understanding Last Documented On 3 10:45AM ; [facility] Discussed good sleep hygiene habits Last Documented On 3 7:14AM ; [facility] I recommended cognitive exer cises such as reading and/or word search puzzles, etc.. Last Documented On 3 7:14AM ; [facility] Patient counseling I discuss ed risk, benefits, and side effects of sleep aid Belsomra - including the possibility of sleep related behaviors i.e. sleepwalking, sleeptalking, sleepdriving, etc... Pt verbalized understanding Last Documented On 3 5:09PM ; [facility] Discussed good sleep hygiene habits Last Documented On 3 5:08PM ; [facility] I recommended cognitive exer cises such as reading and/or word search puzzles, etc.. Last Documented On 3 1:47AM ; [facility] Medical Equipment - Implanted Devices Includes: Current and historical Devices No Medical Equipment Recorded Medications Includes: Current and historical Medications Current Medications (continue as prescribed) busPIRone HCl 15 MG Oral Tablet 01/16/2024 Provider: EILEEN VINCENT MD Diagnosis: TAKE ONE TABLET BY MOUTH THREE TIMES a DAY Last Documented On 01/16/2024 10:52AM By Radha Vincent MD ; [facility] Mydayis 37.5 MG Oral [...] 12/19/2023 11:49AM By Radha Vincent MD ; [facility] Memantine HCl 5 MG Oral Tablet 12/12/2023 Provider: EILEEN VINCENT MD Diagnosis: Dem in oth dis c lassd elswhr,unsp sev,w/o beh/psych/mood/anx One tablet daily Last Documented On 12/12/2023 4:50PM By Radha Vincent MD ; [facility] rOPINIRole HCl 2 MG Oral Tablet 12/10/2023 Provider: VENTURA GERARDO Diagnosis: Last Documented On 12/19/2023 11:45AM By Radha Vincent MD ; [facility] Namzaric 28-10 MG Oral Capsule Extended Release 24 Hour 11/26/2023 Provider: EILEEN VINCENT MD Diagnosis: Dem in oth dis c lassd elswhr,unsp sev,w/o beh/psych/mood/anx TAKE ONE CAPSULE BY MOUTH EV HELLEN MORNING Last Documented On 11/26/2023 1:10PM By Radha Vincent MD ; [facility] Trintellix 10 MG Oral Tablet 11/13/2023 Provider: EILEEN VINCENT MD Diagnosis: Major depressive disorder, single episode, unspecified TAKE ONE (1) TABLET BY MOUTH DAILY Last Documented On 11/13/2023 10:08AM By Radha Vincent MD ; [facility] Belsomra 10 MG Oral Tablet 11/01/2023 Provider: EILEEN VINCENT MD Diagnosis: Psychophysiologi c insomnia DIRECTED 1 TABLET AT BEDT ELEAZAR NEEDED FOR SLEEP Last Documented On 11/01/2023 4:16PM By Radha Vincent MD ; [facility] buPROPion HCl ER (XL) 300 MG Oral Tablet Extended Release 24 Hour 08/24/2023 Provider: EILEEN VINCENT MD Diagnosis: Major depressive disorder, single episode, unspecified 1 tablet every morning Last Documented On 08/24/2023 10:15AM By Radha Vincent MD ; [facility] lamoTRIgine 150 MG Oral Tablet 08/24/2023 Provider: EILEEN VINCENT MD Diagnosis: TAKE ONE TABLET BY MOUTH TWO TIMES A DAY Last Documented On 08/24/2023 10:26AM By Radha Vincent MD ; [facility] Escitalopram Oxalate 20 MG Oral Tablet 08/24/2023 Provider: EILEEN VINCENT MD Diagnosis: Generalized anxi ety disorder TAKE ONE TABLET BY MOUTH DAILY Last Documented On 08/24/2023 10:16AM By Radha Vincent MD ; [facility] Ferrous Sulfate 325 (65 Fe) MG Oral Tablet 04/18/2023 Provider: Diagnosis: 1 tab every other day Last Documented On 04/18/2023 10:30AM By WISAM CASH ; [facility] Belsomra 10 MG Oral Tablet 03/19/2023 Provider: Diagnosis: Psychophysiologi c insomnia 1 tablet at bedtime as needed for sleep Last Documented On 03/19/2023 2:13PM By LETI WILSON ; [facility] Belsomra 10 MG OR TABS 09/27/2022 Provider: CISCO VINCENT MD Diagnosis: Psychophysiologi c insomnia DIRECTED - ONE (1) TAB AT BEDTIME NEEDED FOR SLEEP Last Documented On 12/09/2022 5:29PM By Radha Vincent MD ; [facility] Alendronate Sodium 70 MG OR TABS 06/19/2022 Provider : Diagnosis: 1 tab weekly Last Documented On 12/09/2022 5:29PM By WISAM CASH ; [facility] Levothyroxine Sodium 100 MCG OR CAPS 04/14/2020 Prov ider: Diagnosis: 1 tab daily Last Documented On 12/09/2022 5:29PM By WISAM CASH ; [facility] Pantoprazole Sodium 40 MG OR TBEC 11/15/2019 Provide r: Diagnosis: 1 tab daily Last Documented On 12/09/2022 5:29PM By WISAM CASH ; [facility] Azelastine HCl 0.15% NA SOLN 08/21/2019 Provider: Diagnosis: 2 sprays in each nostril twice a day Last Documented On 12/09/2022 5:29PM By WISAM CASH ; [facility] Fluticasone Propionate 50 MCG/ACT NA SUSP 07/25/2018 Provider: Diagnosis: 2 sprays in each nostril daily Last Documented On 12/09/2022 5:29PM By WISAM CASH ; [facility] amLODIPine Besy-Benazepril HCl 5-10 MG OR CAPS 016 Provider: Diagnosis: 1 daily Last Documented On 12/09/2022 5:29PM By WILMER REDDY LPN ; [facility] Lipitor 20 MG OR TABS 11/10/2015 Provider: Diagnosis: 1 tablet every evening Last Documented On 12/09/2022 5:29PM By WILMER REDDY LPN ; [facility] Lasix 20 MG OR TABS 11/10/2015 Provider: Diagnosis: 1 tablet every morning Last Documented On 12/09/2022 5:29PM By WILMER REDDY LPN ; [facility] Aspirin 81 MG OR TABS 11/10/2015 Provider: Diagnosis: 1 tablet daily Last Documented On 12/09/2022 5:29PM By WILMER REDDY LPN ; [facility] Past Medications on file Mydayis 37.5 MG Oral Capsule Extended Release 24 Hour 11/27/2023 - 01/01/2024 Provider: EILEEN VINCENT MD Diagnosis: Attention-defici t hyperactivity disorder, combined type TAKE ONE (1) CAPSULE BY MOUTH EACH MORNING Last Documented On 01/01/2024 5:48PM By Radha Vincent MD ; [facility] Mydayis 37.5 MG Oral Capsule Extended Release 24 Hour 10/31/2023 - 11/27/2023 Provider: EILEEN VINCENT MD Diagnosis: Attention-defici t hyperactivity disorder, combined type TAKE ONE (1) CAPSULE BY MOUTH EACH MORNING Last Documented On 11/27/2023 5:06PM By Radha Vincent MD ; [facility] Focalin 10 MG Oral Tablet 10/18/2023 - 12/19/2023 Provider: EILEEN VINCENT MD Diagnosis: Attention-defici t hyperactivity disorder, combined type 1 tablet every morning Last Documented On 12/19/2023 11:48AM By Radha Vincent MD ; [facility] Mydayis 37.5 MG Oral Capsule Extended Release 24 Hour 09/26/2023 - 10/31/2023 Provider: EILEEN VINCENT MD Diagnosis: Attention-defici t hyperactivity disorder, combined type TAKE ONE (1) CAPSULE BY MOUTH EACH MORNING Last Documented On 10/31/2023 11:48AM By Radha Vincent MD ; [facility] Dicyclomine HCl 10 MG Oral Capsule 09/14/2023 - 2023 Provider: Diagnosis: 1 capsule bid Last Documented On 09/14/2023 11:16AM By WISAM CASH ; [facility] Mydayis 37.5 MG Oral Capsule Extended Release 24 Hour 08/23/2023 - 09/26/2023 Provider: EILEEN VINCENT MD Diagnosis: Attention-defici t hyperactivity disorder, combined type TAKE ONE (1) CAPSULE BY MOUTH EACH MORNING Last Documented On 09/26/2023 3:48PM By Radha Vincent MD ; [facility] Mydayis 37.5 MG Oral Capsule Extended Release 24 Hour 07/23/2023 - 08/23/2023 Provider: EILEEN VINCENT MD Diagnosis: Attention-defici t hyperactivity disorder, combined type TAKE ONE (1) CAPSULE BY MOUTH EACH MORNING Last Documented On 08/23/2023 2:27PM By Radha Vincent MD ; [facility] Mydayis 37.5 MG Oral Capsule Extended Release 24 Hour 06/26/2023 - 07/23/2023 Provider: EILEEN VINCENT MD Diagnosis: Attention-defici t hyperactivity disorder, combined type TAKE ONE (1) CAPSULE BY MOUTH EACH MORNING Last Documented On 07/23/2023 4:41PM By Radha Vincent MD ; [facility] Mydayis 37.5 MG Oral Capsule Extended Release 24 Hour 05/15/2023 - 06/26/2023 Provider: EILEEN VINCENT MD Diagnosis: Attention-defici t hyperactivity disorder, combined type TAKE ONE (1) CAPSULE BY MOUTH EACH MORNING Last Documented On 06/26/2023 11:51AM By Radha Vincent MD ; [facility] hydrOXYzine HCl 25 MG Oral Tablet 04/09/2023 - 06/08/2023 Provider: EILEEN CONNORS MD Diagnosis: 1 TAB a DAY NEEDED ONLY FOR ITCHING/ANXIETY Last Documented On 04/09/2023 12:08PM By Radha Vincent MD ; [facility] Mydayis 37.5 MG Oral Capsule Extended Release 24 Hour 04/09/2023 - 05/15/2023 Provider: EILEEN VINCENT MD Diagnosis: Attention-defici t hyperactivity disorder, combined type TAKE ONE (1) CAPSULE BY MOUTH EACH MORNING Last Documented On 05/15/2023 3:14PM By Radha Vincent MD ; [facility] Belsomra 10 MG Oral Tablet 03/20/2023 - 11/01/2023 Provider: EILEEN VINCENT MD Diagnosis: Psychophysiologi c insomnia as directed 1 tablet at bedt eleazar as needed for sleep Last Documented On 11/01/2023 4:05PM By Radha Vincent MD ; [facility] rOPINIRole HCl 2 MG Oral Tablet 03/12/2023 - 12/19/2023 Provider: EILEEN VINCENT MD Diagnosis: Restless legs syndrome as directed 1 tablet at 5 pm in the evening for restless legs Last Documented On 12/19/2023 11:47AM By Radha Vincent MD ; [facility] rOPINIRole HCl 2 MG Oral Tablet 03/12/2023 - Provider: Diagnosis: Restless legs sy ndrome 1 tablet at 5 pm in the evening for restless leg s Last Documented On 03/12/2023 6:11PM By LETI WILSON ; [facility] Mydayis 37.5 MG Oral Capsule Extended Release 24 Hour 02/27/2023 - 04/09/2023 Provider: EILEEN VINCENT MD Diagnosis: Attention-defici t hyperactivity disorder, combined type TAKE ONE (1) CAPSULE BY MOUTH EACH MORNING Last Documented On 04/09/2023 12:09PM By Radha Vincent MD ; [facility] Mydayis 37.5 MG Oral Capsule Extended Release 24 Hour 01/11/2023 - 02/27/2023 Provider: EILEEN VINCENT MD Diagnosis: Attention-defici t hyperactivity disorder, combined type 1 Capsule every morning Last Documented On 02/27/2023 3:23PM By Radha Vincent MD ; [facility] hydrOXYzine HCl 25 MG Oral Tablet 12/20/2022 - 04/09/2023 Provider: EILEEN CONONRS MD Diagnosis: 1 tab a day as needed only for itching/anxiety Last Documented On 04/09/2023 12:08PM By Radha Vincent MD ; [facility] Mydayis 37.5 MG OR CP24 12/07/2022 - 01/11/2023 Provider: EILEEN VINCENT MD Diagnosis: Attention-defici t hyperactivity disorder, combined type 1 Capsule every morning Last Documented On 01/11/2023 6:42PM By Radha Vincent MD ; [facility] Trintellix 10 MG OR TABS 11/16/2022 - 11/13/2023 Provider: EILEEN VINCENT MD Diagnosis: Major depressive disorder, single episode, unspecified TAKE ONE (1) TABLET BY MOUTH DAILY Last Documented On 11/13/2023 10:08AM By Radha Vincent MD ; [facility] Mydayis 37.5 MG OR CP24 10/27/2022 - 12/07/2022 Provider: EILEEN VINCENT MD Diagnosis: Attention-defici t hyperactivity disorder, combined type 1 Capsule every morning Last Documented On 12/09/2022 5:29PM By Radha Vincent MD ; [facility] hydrOXYzine HCl 25 MG OR TABS 10/17/2022 - 12/20/2022 Provider: EILEEN CONNORS MD Diagnosis: 1 tab a day as needed only for itching/anxiety Last Documented On 12/20/2022 4:05PM By Radha Vincent MD ; [facility] Namzaric 28-10 MG OR CP24 10/17/2022 - 11/26/2023 Provider: EILEEN CONNORS MD Diagnosis: Dem in oth dis c lassd elswhr,unsp sev,w/o beh/psych/mood/anx TAKE ONE CAPSULE BY MOUTH EVERY MORNING Last Documented On 11/26/2023 1:09PM By Radha Vincent MD ; [facility] Mydayis 37.5 MG OR CP24 09/29/2022 - 10/27/2022 Provid er: EILEEN VINCENT MD Diagnosis: 1 Capsule every morning Last Documented On 12/09/2022 5:29PM By Radha Vincent MD ; [facility] Escitalopram Oxalate 20 MG OR TABS 09/25/2022 - 08/24/2023 Provider: EILEEN VINCENT MD Diagnosis: Generalized anxi ety disorder TAKE ONE TABLET BY MOUTH DAILY Last Documented On 08/24/2023 10:16AM By Radha Vincent MD ; [facility] lamoTRIgine 150 MG OR TABS 09/25/2022 - 08/24/2023 Pro vider: EILEEN VINCENT MD Diagnosis: TAKE ONE TABLET BY MOUTH TWO TIMES A DAY Last Documented On 08/24/2023 10:25AM By Radha Vincent MD ; [facility] rOPINIRole HCl 2 MG OR TABS 09/25/2022 - 03/12/2023 Provider: EILEEN VINCENT MD Diagnosis: Restless legs syndrome DIRECTED - ONE (1) TAB AT FIVE (5) IN THE EVENING FOR RESTLESS LEGS Last Documented On 03/12/2023 6:11PM By LETI WILSON ; [facility] Mydayis 37.5 MG OR CP24 08/29/2022 - 09/29/2022 Provid er: EILEEN VINCENT MD Diagnosis: TAKE ONE (1) CAPSULE BY MOUTH EACH MORNING Last Documented On 12/09/2022 5:29PM By Radha Vincent MD ; [facility] busPIRone HCl 15 MG OR TABS 08/29/2022 - 01/16/2024 Pr ovider: EILEEN VINCENT MD Diagnosis: TAKE ONE TABLET BY MOUTH THREE TIMES a DAY Last Documented On 01/16/2024 10:52AM By Radha Vincent MD ; [facility] Mydayis 37.5 MG OR CP24 08/28/2022 - 10/17/2022 Provider: EILEEN VINCENT MD Diagnosis: Attention-defici t hyperactivity disorder, other type TAKE ONE (1) CAPSULE BY MOUT H EACH MORNING Last Documented On 12/09/2022 5:29PM By Radha Vincent MD ; [facility] Belsomra 10 MG OR TABS 07/31/2022 - 09/27/2022 Provider: EILEEN VINCENT MD Diagnosis: Psychophysiologi c insomnia as directed - 1 tab at bedti me as needed for sleep Last Documented On 12/09/2022 5:29PM By Radha Vincent MD ; [facility] Mydayis 37.5 MG OR CP24 07/24/2022 - 08/28/2022 Provider: EILEEN VINCENT MD Diagnosis: Attention-defici t hyperactivity disorder, other type TAKE ONE (1) CAPSULE BY MOUT H EACH MORNING Last Documented On 12/09/2022 5:29PM By Radha Vincent MD ; [facility] Quviviq 50 MG OR TABS 07/17/2022 - 10/17/2022 Provider: EILEEN VINCENT MD Diagnosis: Psychophysiologi c insomnia One tablet at bed time Last Documented On 12/09/2022 5:29PM By Radha Vincent MD ; [facility] Trintellix 10 MG OR TABS 07/17/2022 - 11/16/2022 Provider: EILEEN VINCENT MD Diagnosis: Major depressive disorder, single episode, unspecified One tablet daily Last Documented On 12/09/2022 5:29PM By Radha Vincent MD ; [facility] buPROPion HCl ER (XL) 300 MG OR TB24 07/03/2022 - 08/24/2023 Provider: EILEEN VINCENT MD Diagnosis: Major depressive disorder, single episode, unspecified 1 tablet every morning Last Documented On 08/24/2023 10:15AM By Radha Vincent MD ; [facility] Mydayis 37.5 MG OR CP24 06/26/2022 - 07/24/2022 Provider: EILEEN VINCENT MD Diagnosis: Attention-defici t hyperactivity disorder, other type TAKE ONE (1) CAPSULE BY MOUT H EACH MORNING Last Documented On 12/09/2022 5:29PM By Radha Vincent MD ; [facility] Mydayis 37.5 MG OR CP24 05/26/2022 - 06/26/2022 Provider: EILEEN VINCENT MD Diagnosis: Attention-defici t hyperactivity disorder, other type TAKE ONE (1) CAPSULE BY MOUT H EACH MORNING Last Documented On 12/09/2022 5:29PM By Radha Vincent MD ; [facility] Mydayis 37.5 MG OR CP24 04/24/2022 - 05/26/2022 Provider: EILEEN VINCENT MD Diagnosis: Attention-defici t hyperactivity disorder, other type TAKE ONE (1) CAPSULE BY MOUT H EACH MORNING Last Documented On 12/09/2022 5:29PM By Radha Vincent MD ; [facility] Quviviq 50 MG OR TABS 04/11/2022 - 07/17/2022 Provider: EILEEN VINCENT MD Diagnosis: Psychophysiologi c insomnia One tablet at bed time Last Documented On 12/09/2022 5:29PM By Radha Vincent MD ; [facility] rOPINIRole HCl 2 MG OR TABS 04/05/2022 - 09/25/2022 Provider: EILEEN VINCENT MD Diagnosis: Restless legs syndrome as directed - 1 tab at 5 pm for restless legs Last Documented On 12/09/2022 5:29PM By Radha Vincent MD ; [facility] Mydayis 37.5 MG OR CP24 03/17/2022 - 04/24/2022 Provider: EILEEN VINCENT MD Diagnosis: Attention-defici t hyperactivity disorder, other type TAKE ONE (1) CAPSULE BY MOUT H EACH MORNING Last Documented On 12/09/2022 5:29PM By Radha Vincent MD ; [facility] rOPINIRole HCl 1 MG OR TABS 02/20/2022 - 05/11/2022 Pr ovider: EILEEN VINCENT MD Diagnosis: as directed - 1 tab in the evening for restless legs Last Documented On 12/09/2022 5:29PM By Radha Vincent MD ; [facility] hydrOXYzine HCl 25 MG OR TABS 02/20/2022 - 10/17/2022 Provider: EILEEN CONNORS MD Diagnosis: TAKE ONE (1) OR TWO (2) TABL ETS BY MOUTH NEEDED FOR AGITATION/ANXIETY Last Documented On 12/09/2022 5:29PM By Radha Vincent MD ; [facility] Mydayis 37.5 MG OR CP24 02/14/2022 - 03/17/2022 Provider: EILEEN VINCENT MD Diagnosis: Attention-defici t hyperactivity disorder, other type TAKE ONE (1) CAPSULE BY MOUT H EACH MORNING Last Documented On 12/09/2022 5:29PM By Radha Vincent MD ; [facility] traZODone HCl 50 MG OR TABS 02/07/2022 - 09/14/2023 Pr ovider: EILEEN VINCENT MD Diagnosis: TAKE ONE (1) OR TWO (2) TABL ETS BY MOUTH AT BEDTIME NEEDED SLEEP Last Documented On 09/14/2023 12:02PM By Radha Vincent MD ; [facility] Mydayis 37.5 MG OR CP24 01/16/2022 - 02/14/2022 Provider: EILEEN VINCENT MD Diagnosis: Attention-defici t hyperactivity disorder, other type ONE (1) CAPSULE EVERY MORNING Last Documented On 12/09/2022 5:29PM By Radha Vincent MD ; [facility] Mydayis 37.5 MG OR CP24 12/14/2021 - 01/16/2022 Provider: EILEEN VINCENT MD Diagnosis: Attention-defici t hyperactivity disorder, other type ONE (1) CAPSULE EVERY MORNING Last Documented On 12/09/2022 5:29PM By Rdaha Vincent MD ; [facility] Mydayis 37.5 MG OR CP24 11/03/2021 - 12/14/2021 Provider: EILEEN VINCENT MD Diagnosis: Attention-defici t hyperactivity disorder, other type ONE (1) CAPSULE EVERY MORNING Last Documented On 12/09/2022 5:29PM By Radha Vincent MD ; [facility] Namzaric 28-10 MG OR CP24 10/27/2021 - 10/17/2022 Prov ider: EILEEN VINCENT MD Diagnosis: TAKE ONE CAPSULE BY MOUTH EVERY MORNING Last Documented On 12/09/2022 5:29PM By Radha Vincent MD ; [facility] Mydayis 37.5 MG OR CP24 10/05/2021 - 11/03/2021 Provider: EILEEN VINCENT MD Diagnosis: Attention-defici t hyperactivity disorder, other type 1 Capsule every morning Last Documented On 12/09/2022 5:29PM By Radha Vincent MD ; [facility] Escitalopram Oxalate 20 MG OR TABS 10/04/2021 - 09/25/2022 Provider: EILEEN VINCENT MD Diagnosis: Generalized anxi ety disorder TAKE ONE TABLET BY MOUTH DAILY Last Documented On 12/09/2022 5:29PM By Radha Vincent MD ; [facility] Mydayis 37.5 MG OR CP24 09/02/2021 - 10/05/2021 Provider: EILEEN VINCENT MD Diagnosis: Attention-defici t hyperactivity disorder, other type 1 Capsule every morning Last Documented On 12/09/2022 5:29PM By Radha Vincent MD ; [facility] hydrOXYzine HCl 25 MG OR TABS 08/25/2021 - 07/17/2022 Provider: EILEEN VINCENT MD Diagnosis: Generalized anxi ety disorder TAKE 1 OR 2 TABLETS BY MOUTH NEEDED FOR AGITATION/ANXIETY Last Documented On 12/09/2022 5:29PM By Radha Vincent MD ; [facility] busPIRone HCl 15 MG OR TABS 08/24/2021 - 10/17/2022 Provider: EILEEN VINCENT MD Diagnosis: Generalized anxi ety disorder TAKE ONE TABLET BY MOUTH THREE TIMES A DAY Last Documented On 12/09/2022 5:29PM By Radha Vincent MD ; [facility] lamoTRIgine 150 MG OR TABS 08/24/2021 - 10/17/2022 Provider: EILEEN VINCENT MD Diagnosis: Bipolar disorder , unspecified TAKE ONE TABLET BY MOUTH TWO TIMES A DAY Last Documented On 12/09/2022 5:29PM By Radha Vincent MD ; [facility] Mydayis 37.5 MG OR CP24 08/04/2021 - 09/02/2021 Provider: EILEEN VINCENT MD Diagnosis: Attention-defici t hyperactivity disorder, other type 1 Capsule every morning Last Documented On 12/09/2022 5:29PM By Radha Vincent MD ; [facility] rOPINIRole HCl 1 MG OR TABS 07/29/2021 - 12/20/2021 Provider: EILEEN VINCENT MD Diagnosis: Restless legs syndrome as directed -- 1/2 tab in evening for 1 week then 1 tab in the evening thereafter for restless legs Last Documented On 12/09/2022 5:29PM By Radha Vincent MD ; [facility] hydrOXYzine HCl 25 MG OR TABS 06/15/2021 - 07/17/2022 Provider: Diagnosis: Generalized anxi ety disorder 1 tab a day as needed for agitation/anxiety Last Documented On 12/09/2022 5:29PM By LETI WILSON ; [facility] traZODone HCl 50 MG OR TABS 06/15/2021 - 07/17/2022 Pr ovider: Diagnosis: Psychophysiologi c insomnia 1 or 2 tabs at bedtime as needed for sleep Last Documented On 12/09/2022 5:29PM By LETI WILSON ; [facility] hydrOXYzine HCl 25 MG OR TABS 06/15/2021 - 08/25/2021 Provider: EILEEN VINCENT MD Diagnosis: Generalized anxi ety disorder as directed 1 tab a day as n eeded for agitation/anxiety Last Documented On 12/09/2022 5:29PM By Radha Vincent MD ; [facility] traZODone HCl 50 MG OR TABS 06/15/2021 - 07/17/2022 Provider: EILEEN VINCENT MD Diagnosis: Psychophysiologi c insomnia as directed 1 or 2 tabs at b edtime as needed for sleep Last Documented On 12/09/2022 5:29PM By Radha Vincent MD ; [facility] Mydayis 37.5 MG OR CP24 06/06/2021 - 12/20/2021 Provid er: EILEEN VINCENT MD Diagnosis: TAKE ONE CAPSULE BY MOUTH EVERY MORNING Last Documented On 12/09/2022 5:29PM By Radha Vincent MD ; [facility] buPROPion HCl ER (XL) 300 MG OR TB24 06/06/2021 - 07/03/2022 Provider: EILEEN VINCENT MD Diagnosis: Major depressive disorder, single episode, unspecified 1 tablet every morning Last Documented On 12/09/2022 5:29PM By Radha Vincent MD ; [facility] Mydayis 37.5 MG OR CP24 05/25/2021 - 12/20/2021 Provid er: EILEEN VINCENT MD Diagnosis: 1 Capsule every morning Last Documented On 12/09/2022 5:29PM By Radha Vincent MD ; [facility] Mydayis 37.5 MG OR CP24 04/25/2021 - 05/25/2021 Provider: EILEEN VINCENT MD Diagnosis: Attention-defici t hyperactivity disorder, other type as directed 1 Capsule every morning Last Documented On 12/09/2022 5:29PM By Radha Vincent MD ; [facility] Mydayis 37.5 MG OR CP24 03/23/2021 - 04/19/2021 Provid er: EILEEN VINCENT MD Diagnosis: as directed 1 Capsule every morning Last Documented On 12/09/2022 5:29PM By Radha Vincent MD ; [facility] Mydayis 37.5 MG OR CP24 02/21/2021 - 03/23/2021 Provid er: EILEEN VINCENT MD Diagnosis: as directed 1 Capsule every morning Last Documented On 12/09/2022 5:29PM By Radha Vincent MD ; [facility] Mydayis 37.5 MG OR CP24 01/25/2021 - 02/21/2021 Provider: EILEEN VINCENT MD Diagnosis: Attention-defici t hyperactivity disorder, other type as directed 1 Capsule every morning Last Documented On 12/09/2022 5:29PM By Radha Vincent MD ; [facility] Mydayis 37.5 MG OR CP24 12/21/2020 - 01/25/2021 Provider: EILEEN VINCENT MD Diagnosis: Attention-defici t hyperactivity disorder, other type as directed 1 Capsule every morning Last Documented On 12/09/2022 5:29PM By Radha Vincent MD ; [facility] Mydayis 37.5 MG OR CP24 11/18/2020 - 12/20/2020 Provider: EILEEN VINCENT MD Diagnosis: Attention-defici t hyperactivity disorder, other type as directed 1 Capsule every morning Last Documented On 12/09/2022 5:29PM By Radha Vincent MD ; [facility] Namzaric 28-10 MG OR CP24 10/26/2020 - 12/20/2021 Provider: EILEEN CONNORS MD Diagnosis: Dem in oth dis c lassd elswhr,unsp sev,w/o beh/psych/mood/anx 1 CAPSULE EVERY MORNING Last Documented On 12/09/2022 5:29PM By Radha Vincent MD ; [facility] Mydayis 37.5 MG OR CP24 10/18/2020 - 11/18/2020 Provider: EILEEN VINCENT MD Diagnosis: Attention-defici t hyperactivity disorder, other type as directed 1 Capsule every morning Last Documented On 12/09/2022 5:29PM By Radha Vincent MD ; [facility] hydrOXYzine HCl 25 MG OR TABS 10/08/2020 - 11/07/2020 Provider: EILEEN VINCENT MD Diagnosis: Generalized anxi ety disorder as directed - 1 tab a day as needed for agitation/anxiety Last Documented On 12/09/2022 5:29PM By Radha Vincent MD ; [facility] Escitalopram Oxalate 20 MG OR TABS 09/27/2020 - 10/04/2021 Provider: EILEEN VINCENT MD Diagnosis: Generalized anxi ety disorder TAKE ONE TABLET BY MOUTH DAILY Last Documented On 12/09/2022 5:29PM By Radha Vincent MD ; [facility] lamoTRIgine 150 MG OR TABS 09/22/2020 - 08/24/2021 Provider: EILEEN VINCENT MD Diagnosis: Bipolar disorder , unspecified TAKE ONE TABLET BY MOUTH TWO TIMES A DAY Last Documented On 12/09/2022 5:29PM By Radha Vincent MD ; [facility] Mydayis 37.5 MG OR CP24 09/20/2020 - 10/18/2020 Provider: EILEEN VINCENT MD Diagnosis: Attention-defici t hyperactivity disorder, other type as directed 1 Capsule every morning Last Documented On 12/09/2022 5:29PM By Radha Vincent MD ; [facility] Mydayis 37.5 MG OR CP24 08/20/2020 - 09/20/2020 Provider: EILEEN VINCENT MD Diagnosis: Attention-defici t hyperactivity disorder, other type as directed 1 Capsule every morning Last Documented On 12/09/2022 5:29PM By Radha Vincent MD ; [facility] busPIRone HCl 15 MG OR TABS 08/02/2020 - 08/24/2021 Provider: EILEEN VINCENT MD Diagnosis: Generalized anxi ety disorder TAKE ONE TABLET BY MOUTH THREE TIMES A DAY Last Documented On 12/09/2022 5:29PM By Radha Vincent MD ; [facility] Mydayis 37.5 MG OR CP24 07/21/2020 - 08/20/2020 Provider: EILEEN VINCENT MD Diagnosis: Attention-defici t hyperactivity disorder, other type as directed 1 Capsule every morning Last Documented On 12/09/2022 5:29PM By Radha Vincent MD ; [facility] Mydayis 37.5 MG OR CP24 06/21/2020 - 07/21/2020 Provider: EILEEN VINCENT MD Diagnosis: Attention-defici t hyperactivity disorder, other type as directed 1 Capsule every morning Last Documented On 12/09/2022 5:29PM By Radha Vincent MD ; [facility] buPROPion HCl ER (XL) 300 MG OR TB24 06/08/2020 - 06/06/2021 Provider: EILEEN VINCENT MD Diagnosis: Major depressive disorder, single episode, unspecified 1 tablet every morning Last Documented On 12/09/2022 5:29PM By Radha Vincent MD ; [facility] Mydayis 37.5 MG OR CP24 05/20/2020 - 06/21/2020 Provider: EILEEN VINCENT MD Diagnosis: Attention-defici t hyperactivity disorder, other type as directed 1 Capsule every morning Last Documented On 12/09/2022 5:29PM By Radha Vincent MD ; [facility] traZODone HCl 50 MG OR TABS 05/10/2020 - 04/19/2021 Provider: EILEEN VINCENT MD Diagnosis: Psychophysiologi c insomnia TAKE ONE OR TWO TABLETS AT B EDTIME NEEDED FOR SLEEP Last Documented On 12/09/2022 5:29PM By Radha Vincent MD ; [facility] Mydayis 37.5 MG OR CP24 04/21/2020 - 05/20/2020 Provider: EILEEN VINCENT MD Diagnosis: Attention-defici t hyperactivity disorder, other type as directed 1 Capsule every morning Last Documented On 12/09/2022 5:29PM By Radha Vincent MD ; [facility] Mydayis 37.5 MG OR CP24 03/19/2020 - 04/21/2020 Provider: EILEEN VINCENT MD Diagnosis: Attention-defici t hyperactivity disorder, other type as directed 1 Capsule every morning Last Documented On 12/09/2022 5:29PM By Radha Vincent MD ; [facility] Mydayis 37.5 MG OR CP24 03/19/2020 - 03/19/2020 Provider: EILEEN VINCENT MD Diagnosis: Attention-defici t hyperactivity disorder, other type as directed 1 Capsule every morning Last Documented On 12/09/2022 5:29PM By Radha Vincent MD ; [facility] Mydayis 37.5 MG OR CP24 02/16/2020 - 03/19/2020 Provider: EILEEN VINCENT MD Diagnosis: Attention-defici t hyperactivity disorder, other type as directed 1 Capsule every morning Last Documented On 12/09/2022 5:29PM By Radha Vincent MD ; [facility] Mydayis 37.5 MG OR CP24 01/12/2020 - 07/29/2021 Provid er: Diagnosis: Attention-defici t hyperactivity disorder, other type 1 Capsule every morning Last Documented On 12/09/2022 5:29PM By WISAM CASH ; [facility] Mydayis 37.5 MG OR CP24 01/12/2020 - 02/16/2020 Provider: EILEEN VINCENT MD Diagnosis: Attention-defici t hyperactivity disorder, other type as directed 1 Capsule every morning Last Documented On 12/09/2022 5:29PM By Radha Vincent MD ; [facility] traZODone HCl 50 MG OR TABS 12/23/2019 - 05/10/2020 Provider: EILEEN VINCENT MD Diagnosis: Psychophysiologi c insomnia DIRECTED --1 OR 2 TABS AT BEDTIME NEEDED FOR SLEEP Last Documented On 12/09/2022 5:29PM By Radha Vincent MD ; [facility] Mydayis 37.5 MG OR CP24 12/12/2019 - 02/07/2022 Provider: EILEEN VINCENT MD Diagnosis: Attention-defici t hyperactivity disorder, other type 1 Capsule every morning Last Documented On 12/09/2022 5:29PM By Radha Vincent MD ; [facility] Mydayis 37.5 MG OR CP24 11/06/2019 - 12/12/2019 Provider: EILEEN VINCENT MD Diagnosis: Attention-defici t hyperactivity disorder, other type 1 Capsule every morning Last Documented On 12/09/2022 5:29PM By Radha Vincent MD ; [facility] Namzaric 28-10 MG OR CP24 10/24/2019 - 10/26/2020 Provider: EILEEN CONNORS MD Diagnosis: Dem in oth dis c lassd elswhr,unsp sev,w/o beh/psych/mood/anx 1 CAPSULE EVERY MORNING Last Documented On 12/09/2022 5:29PM By Radha Vincent MD ; [facility] LaMICtal 150 MG OR TABS 10/20/2019 - 09/22/2020 Provider: EILEEN VINCENT MD Diagnosis: Bipolar disorder , unspecified TAKE ONE TABLET BY MOUTH TWO TIMES A DAY Last Documented On 12/09/2022 5:29PM By Radha Vincent MD ; [facility] Mydayis 37.5 MG OR CP24 10/07/2019 - 11/06/2019 Provider: EILEEN VINCENT MD Diagnosis: Attention-defici t hyperactivity disorder, other type 1 Capsule every morning Last Documented On 12/09/2022 5:29PM By Radha Vincent MD ; [facility] Mydayis 37.5 MG OR CP24 09/02/2019 - 10/07/2019 Provider: EILEEN VINCENT MD Diagnosis: Attention-defici t hyperactivity disorder, other type 1 Capsule every morning Last Documented On 12/09/2022 5:29PM By Radha Vincent MD ; [facility] busPIRone HCl 15 MG OR TABS 08/27/2019 - 08/02/2020 Provider: EILEEN VINCENT MD Diagnosis: Generalized anxi ety disorder TAKE ONE TABLET BY MOUTH THREE TIMES A DAY Last Documented On 12/09/2022 5:29PM By Radha Vincent MD ; [facility] Mydayis 37.5 MG OR CP24 08/01/2019 - 09/02/2019 Provider: EILEEN VINCENT MD Diagnosis: Attention-defici t hyperactivity disorder, other type 1 Capsule every morning Last Documented On 12/09/2022 5:29PM By Radha Vincent MD ; [facility] Mydayis 37.5 MG OR CP24 06/27/2019 - 08/01/2019 Provider: EILEEN VINCENT MD Diagnosis: Attention-defici t hyperactivity disorder, other type 1 Capsule every morning Last Documented On 12/09/2022 5:29PM By Radha Vincent MD ; [facility] [facility] Mydayis 37.5 MG OR CP24 06/09/2019 - 06/27/2019 Provider: EILEEN VINCENT MD Diagnosis: Attention-defici t hyperactivity disorder, other type 1 Capsule every morning Last Documented On 12/09/2022 5:29PM By Radha Vincent MD ; [facility] Escitalopram Oxalate 20 MG OR TABS 06/02/2019 - 09/27/2020 Provider: EILEEN VINCENT MD Diagnosis: Generalized anxi ety disorder TAKE ONE TABLET BY MOUTH DAILY Last Documented On 12/09/2022 5:29PM By Radha Vincent MD ; [facility] LaMICtal 150 MG OR TABS 05/11/2019 - 10/20/2019 Provider: EILEEN VINCENT MD Diagnosis: Bipolar disorder , unspecified ONE TABLET TWICE A DAY Last Documented On 12/09/2022 5:29PM By Radha Vincent MD ; [facility] Escitalopram Oxalate 20 MG OR TABS 05/11/2019 - 06/02/2019 Provider: EILEEN VINCENT MD Diagnosis: Generalized anxi ety disorder ONE TABLET DAILY Last Documented On 12/09/2022 5:29PM By Radha Vincent MD ; [facility] Wellbutrin XL 300 MG OR TB24 05/11/2019 - 06/08/2020 Provider: EILEEN VINCENT MD Diagnosis: Major depressive disorder, single episode, unspecified TAKE ONE TABLET BY MOUTH EVERY MORNING Last Documented On 12/09/2022 5:29PM By Radha Vincent MD ; [facility] busPIRone HCl 15 MG OR TABS 05/11/2019 - 08/27/2019 Provider: IELEEN VINCENT MD Diagnosis: Generalized anxi ety disorder One tablet three times a day Last Documented On 12/09/2022 5:29PM By Radha Vincent MD ; [facility] Namzaric 28-10 MG OR CP24 05/11/2019 - 10/24/2019 Provider: EILEEN CONNORS MD Diagnosis: Dem in oth dis c lassd elswhr,unsp sev,w/o beh/psych/mood/anx 1 Capsule every morning Last Documented On 12/09/2022 5:29PM By Radha Vincent MD ; [facility] traZODone HCl 50 MG OR TABS 05/11/2019 - 12/23/2019 Provider: EILEEN VINCENT MD Diagnosis: Psychophysiologi c insomnia DIRECTED --1 OR 2 TABS AT BEDTIME NEEDED FOR SLEEP Last Documented On 12/09/2022 5:29PM By Radha Vincent MD ; [facility] Mydayis 37.5 MG OR CP24 05/07/2019 - 06/09/2019 Provider: EILEEN VINCENT MD Diagnosis: Attention-defici t hyperactivity disorder, other type 1 Capsule every morning Last Documented On 12/09/2022 5:29PM By Radha Vincent MD ; [facility] Wellbutrin XL 300 MG OR TB24 05/06/2019 - 04/10/2019 Provider: EILEEN VINCENT MD Diagnosis: Major depressive disorder, single episode, unspecified TAKE ONE TABLET BY MOUTH EVERY MORNING Last Documented On 12/09/2022 5:29PM By Radha Vincent MD ; [facility] Ferrous Sulfate 325 (65 Fe) MG OR TABS 04/10/2019 - Provider: Diagnosis: 1 tab daily Last Documented On 04/18/2023 10:30AM By WISAM CASH ; [facility] Mydayis 37.5 MG OR CP24 04/10/2019 - 05/07/2019 Provider: EILEEN VINCENT MD Diagnosis: Attention-defici t hyperactivity disorder, other type 1 Capsule every morning Last Documented On 12/09/2022 5:29PM By Radha Vincent MD ; [facility] Mydayis 37.5 MG OR CP24 03/06/2019 - 04/10/2019 Provider: EILEEN VINCENT MD Diagnosis: Attention-defici t hyperactivity disorder, other type 1 Capsule every morning Last Documented On 12/09/2022 5:29PM By Radha Vincent MD ; [facility] Mydayis 37.5 MG OR CP24 01/29/2019 - 03/06/2019 Provider: EILEEN VINCENT MD Diagnosis: Attention-defici t hyperactivity disorder, other type 1 Capsule every morning Last Documented On 12/09/2022 5:29PM By Radha Vincent MD ; [facility] Mydayis 25 MG OR CP24 12/24/2018 - 08/21/2019 Provider: EILEEN VINCENT MD Diagnosis: Attention-defici t hyperactivity disorder, other type 1 Capsule every morning Last Documented On 12/09/2022 5:29PM By Radha Vincent MD ; [facility] Mydayis 37.5 MG OR CP24 12/24/2018 - 01/29/2019 Provider: EILEEN VINCENT MD Diagnosis: Attention-defici t hyperactivity disorder, other type 1 Capsule every morning Last Documented On 12/09/2022 5:29PM By Radha Vincent MD ; [facility] Mydayis 25 MG OR CP24 12/18/2018 - 08/21/2019 Provider: EILEEN VINCENT MD Diagnosis: Attention-defici t hyperactivity disorder, other type 1 Capsule every morning Last Documented On 12/09/2022 5:29PM By Radha Vincent MD ; [facility] LaMICtal 150 MG OR TABS 12/02/2018 - 04/10/2019 Provider: EILEEN VINCENT MD Diagnosis: Bipolar disorder , unspecified ONE TABLET TWICE A DAY Last Documented On 12/09/2022 5:29PM By Radha Vincent MD ; [facility] Namzaric 28-10 MG OR CP24 12/02/2018 - 04/10/2019 Provider: EILEEN CONNORS MD Diagnosis: Dem in oth dis c lassd elswhr,unsp sev,w/o beh/psych/mood/anx 1 Capsule every morning Last Documented On 12/09/2022 5:29PM By Radha Vincent MD ; [facility] Wellbutrin XL 300 MG OR TB24 12/02/2018 - 05/06/2019 Provider: EILEEN VINCENT MD Diagnosis: Major depressive disorder, single episode, unspecified 1 tablet every morning Last Documented On 12/09/2022 5:29PM By Radha Vincent MD ; [facility] traZODone HCl 50 MG OR TABS 11/28/2018 - 04/10/2019 Provider: EILEEN VINCENT MD Diagnosis: Psychophysiologi c insomnia DIRECTED --1 OR 2 TABS AT BEDTIME NEEDED FOR SLEEP Last Documented On 12/09/2022 5:29PM By Radha Vincent MD ; [facility] Mydayis 25 MG OR CP24 11/28/2018 - 12/18/2018 Provider: EILEEN VINCENT MD Diagnosis: Attention-defici t hyperactivity disorder, other type 1 Capsule every morning Last Documented On 12/09/2022 5:29PM By Radha Vincent MD ; [facility] Mydayis 25 MG OR CP24 10/22/2018 - 11/28/2018 Provider: EILEEN VINCENT MD Diagnosis: Attention-defici t hyperactivity disorder, other type 1 Capsule every morning Last Documented On 12/09/2022 5:29PM By Radha Vincent MD ; [facility] LaMICtal 150 MG OR TABS 10/14/2018 - 11/28/2018 Provider: IELEEN VINCENT MD Diagnosis: Bipolar disorder , unspecified ONE TABLET TWICE A DAY Last Documented On 12/09/2022 5:29PM By Radha Vincent MD ; [facility] Mydayis 25 MG OR CP24 09/30/2018 - 10/22/2018 Provider: EILEEN VINCENT MD Diagnosis: Attention-defici t hyperactivity disorder, other type 1 Capsule every morning Last Documented On 12/09/2022 5:29PM By Radha Vincent MD ; [facility] LaMICtal 150 MG OR TABS 09/24/2018 - 09/27/2018 Provider: EILEEN VINCENT MD Diagnosis: Bipolar disorder , unspecified One tablet twice a day Last Documented On 12/09/2022 5:29PM By Radha Vincent MD ; [facility] Mydayis 25 MG OR CP24 08/22/2018 - 09/30/2018 Provider: EILEEN VINCENT MD Diagnosis: Attention-defici t hyperactivity disorder, other type 1 Capsule every morning Last Documented On 12/09/2022 5:29PM By Radha Vincent MD ; [facility] prednisoLONE Sodium Phosphate 1% OP SOLN 08/20/2018 - 04/05/2022 Provider: Diagnosis: 1 drop in left eye in the morning Last Documented On 12/09/2022 5:29PM By WISAM CASH ; [facility] Namzaric 28-10 MG OR CP24 08/02/2018 - 11/28/2018 Provider: EILEEN CONNORS MD Diagnosis: Dem in oth dis c lassd elswhr,unsp sev,w/o beh/psych/mood/anx 1 Capsule every morning Last Documented On 12/09/2022 5:29PM By Radha Vincent MD ; [facility] Mydayis 25 MG OR CP24 07/15/2018 - 08/22/2018 Provider: EILEEN VINCENT MD Diagnosis: Attention-defici t hyperactivity disorder, other type 1 Capsule every morning Last Documented On 12/09/2022 5:29PM By Radha Vincent MD ; [facility] Escitalopram Oxalate 20 MG OR TABS 07/01/2018 - 04/10/2019 Provider: EILEEN VINCENT MD Diagnosis: Generalized anxi ety disorder ONE TABLET DAILY Last Documented On 12/09/2022 5:29PM By Radha Vincent MD ; [facility] Wellbutrin XL 300 MG OR TB24 06/17/2018 - 11/28/2018 Provider: EILEEN VINCENT MD Diagnosis: Major depressive disorder, single episode, unspecified 1 tablet every morning Last Documented On 12/09/2022 5:29PM By Radha Vincent MD ; [facility] busPIRone HCl 15 MG OR TABS 06/17/2018 - 04/10/2019 Provider: EILEEN VINCENT MD Diagnosis: Generalized anxi ety disorder One tablet three times a day Last Documented On 12/09/2022 5:29PM By Radha Vincent MD ; [facility] Namzaric 28-10 MG OR CP24 06/17/2018 - 08/02/2018 Provider: EILEEN CONNORS MD Diagnosis: Dem in oth dis c lassd elswhr,unsp sev,w/o beh/psych/mood/anx 1 Capsule every morning Last Documented On 12/09/2022 5:29PM By Radha Vincent MD ; [facility] traZODone HCl 50 MG OR TABS 06/17/2018 - 11/28/2018 Provider: EILEEN VINCENT MD Diagnosis: Psychophysiologi c insomnia DIRECTED --1 OR 2 TABS AT BEDTIME NEEDED FOR SLEEP Last Documented On 12/09/2022 5:29PM By Radha Vincent MD ; [facility] LaMICtal 150 MG OR TABS 06/17/2018 - 10/14/2018 Provider: EILEEN VINCENT MD Diagnosis: Bipolar disorder , unspecified ONE TABLET TWICE A DAY Last Documented On 12/09/2022 5:29PM By Radha Vincent MD ; [facility] Escitalopram Oxalate 20 MG OR TABS 06/17/2018 - 07/01/2018 Provider: EILEEN VINCENT MD Diagnosis: Generalized anxi ety disorder One tablet daily Last Documented On 12/09/2022 5:29PM By Radha Vincent MD ; [facility] Mydayis 25 MG OR CP24 06/12/2018 - 07/15/2018 Provider: EILEEN VINCENT MD Diagnosis: Attention-defici t hyperactivity disorder, other type 1 Capsule every morning Last Documented On 12/09/2022 5:29PM By Radha Vincent MD ; [facility] Mydayis 25 MG OR CP24 05/24/2018 - 06/12/2018 Provider: EILEEN VINCENT MD Diagnosis: Attention-defici t hyperactivity disorder, other type 1 Capsule every morning Last Documented On 12/09/2022 5:29PM By Radha Vincent MD ; [facility] Famotidine 40 MG OR TABS 04/24/2018 - 08/21/2019 Provi itz: Diagnosis: 1 tab bid Last Documented On 12/09/2022 5:29PM By WISAM CASH ; [facility] Moxifloxacin HCl 0.5% OP SOLN 04/22/2018 - 08/21/2019 Provider: Diagnosis: 1 drop in left eye daily Last Documented On 12/09/2022 5:29PM By WISAM CASH ; [facility] Mydayis 25 MG OR CP24 04/09/2018 - 05/24/2018 Provider: EILEEN VINCENT MD Diagnosis: Attention-defici t hyperactivity disorder, other type 1 Capsule every morning Last Documented On 12/09/2022 5:29PM By Radha Vincent MD ; [facility] Mydayis 25 MG OR CP24 03/11/2018 - 06/12/2018 Provider: EILEEN VINCENT MD Diagnosis: Attention-defici t hyperactivity disorder, other type 1 Capsule every morning Last Documented On 12/09/2022 5:29PM By Radha Vincent MD ; [facility] Mydayis 25 MG OR CP24 02/15/2018 - 03/11/2018 Provider: EILEEN VINCENT MD Diagnosis: Attention-defici t hyperactivity disorder, other type 1 Capsule every morning Last Documented On 12/09/2022 5:29PM By Radha Vincent MD ; [facility] Wellbutrin XL 300 MG OR TB24 01/04/2018 - 06/12/2018 Provider: EILEEN VINCENT MD Diagnosis: Bipolar disorder , current episode depressed, moderate 1 tablet every morning Last Documented On 12/09/2022 5:29PM By Radha Vincent MD ; [facility] traZODone HCl 50 MG OR TABS 01/04/2018 - 06/12/2018 Provider: EILEEN VINCENT MD Diagnosis: Psychophysiologi c insomnia DIRECTED --1 OR 2 TABS AT BEDTIME NEEDED FOR SLEEP Last Documented On 12/09/2022 5:29PM By Radha Vincent MD ; [facility] Namzaric 28-10 MG OR CP24 01/04/2018 - 06/12/2018 Provider: EILEEN CONNORS MD Diagnosis: Dem in oth dis c lassd elswhr,unsp sev,w/o beh/psych/mood/anx 1 Capsule every morning Last Documented On 12/09/2022 5:29PM By Radha Vincent MD ; [facility] busPIRone HCl 15 MG OR TABS 01/04/2018 - 06/12/2018 Provider: EILEEN VINCENT MD Diagnosis: Generalized anxi ety disorder One tablet three times a day Last Documented On 12/09/2022 5:29PM By Radha Vincent MD ; [facility] LaMICtal 150 MG OR TABS 01/04/2018 - 06/12/2018 Provider: EILEEN VINCENT MD Diagnosis: Bipolar disorder , unspecified ONE TABLET TWICE A DAY Last Documented On 12/09/2022 5:29PM By Radha Vincent MD ; [facility] Vyvanse 50 MG OR CAPS 01/03/2018 - 01/14/2018 Provider: EILEEN VINCENT MD Diagnosis: Attention-defici t hyperactivity disorder, other type 1 Capsule every morning Last Documented On 12/09/2022 5:29PM By Radha Vincent MD ; [facility] Dicyclomine HCl 10 MG OR CAPS 01/03/2018 - 06/12/2018 Provider: Diagnosis: Last Documented On 12/09/2022 5:29PM By Radha Vincent MD ; [facility] Mydayis 25 MG OR CP24 01/03/2018 - 02/15/2018 Provider: EILEEN VINCENT MD Diagnosis: Attention-defici t hyperactivity disorder, other type 1 Capsule every morning Last Documented On 12/09/2022 5:29PM By Radha Vincent MD ; [facility] traZODone HCl 50 MG OR TABS 12/17/2017 - 01/03/2018 Pr ovider: EILEEN VINCENT MD Diagnosis: DIRECTED --1 OR 2 TABS AT BEDTIME NEEDED FOR SLEEP Last Documented On 12/09/2022 5:29PM By Radha Vincent MD ; [facility] Vyvanse 50 MG OR CAPS 12/14/2017 - 12/14/2017 Provider: EILEEN VINCENT MD Diagnosis: Attention-defici t hyperactivity disorder, other type 1 Capsule every morning Last Documented On 12/09/2022 5:29PM By Radha Vincent MD ; [facility] Namzaric 28-10 MG OR CP24 12/14/2017 - 01/03/2018 Provider: EILEEN CONNORS MD Diagnosis: Dem in oth dis c lassd elswhr,unsp sev,w/o beh/psych/mood/anx 1 Capsule every morning Last Documented On 12/09/2022 5:29PM By Radha Vincent MD ; [facility] Vyvanse 50 MG OR CAPS 12/14/2017 - 01/03/2018 Provider: EILEEN VINCENT MD Diagnosis: Attention-defici t hyperactivity disorder, other type 1 Capsule every morning Last Documented On 12/09/2022 5:29PM By Radha Vincent MD ; [facility] Vyvanse 50 MG OR CAPS 11/15/2017 - 12/14/2017 Provider: EILEEN VINCENT MD Diagnosis: Attention-defici t hyperactivity disorder, other type 1 Capsule every morning Last Documented On 12/09/2022 5:29PM By Radha Vincent MD ; [facility] Vyvanse 50 MG OR CAPS 10/24/2017 - 11/15/2017 Provider: EILEEN VINCENT MD Diagnosis: Attention-defici t hyperactivity disorder, other type 1 Capsule every morning Last Documented On 12/09/2022 5:29PM By Radha Vincent MD ; [facility] Namzaric 28-10 MG OR CP24 09/07/2017 - 12/14/2017 Provider: EILEEN CONNORS MD Diagnosis: Dem in oth dis c lassd elswhr,unsp sev,w/o beh/psych/mood/anx 1 Capsule every morning Last Documented On 12/09/2022 5:29PM By Radha Vincent MD ; [facility] LaMICtal 150 MG OR TABS 09/07/2017 - 01/03/2018 Provider: EILEEN VINCENT MD Diagnosis: Bipolar disorder , unspecified ONE TABLET TWICE A DAY Last Documented On 12/09/2022 5:29PM By Radha Vincent MD ; [facility] Wellbutrin XL 300 MG OR TB24 09/07/2017 - 01/03/2018 Provider: EILEEN VINCENT MD Diagnosis: Bipolar disorder , current episode depressed, moderate 1 tablet every morning Last Documented On 12/09/2022 5:29PM By Radha Vincent MD ; [facility] busPIRone HCl 15 MG OR TABS 09/07/2017 - 01/03/2018 Provider: EILEEN VINCENT MD Diagnosis: Generalized anxi ety disorder One tablet three times a day Last Documented On 12/09/2022 5:29PM By Radha Vincent MD ; [facility] Vyvanse 50 MG OR CAPS 09/06/2017 - 10/24/2017 Provider: EILEEN VINCENT MD Diagnosis: Attention-defici t hyperactivity disorder, other type 1 Capsule every morning Last Documented On 12/09/2022 5:29PM By Radha Vincent MD ; [facility] traZODone HCl 50 MG OR TABS 08/28/2017 - 12/17/2017 Pr ovider: EILEEN VINCENT MD Diagnosis: DIRECTED --1 OR 2 TABS AT BEDTIME NEEDED FOR SLEEP Last Documented On 12/09/2022 5:29PM By Radha Vincent MD ; [facility] LaMICtal 150 MG OR TABS 08/27/2017 - 09/06/2017 Provid er: EILEEN VINCENT MD Diagnosis: ONE TABLET TWICE A DAY Last Documented On 12/09/2022 5:29PM By Radha Vincent MD ; [facility] Vyvanse 40 MG OR CAPS 08/14/2017 - 06/12/2018 Provider: EILEEN VINCENT MD Diagnosis: Attention-defici t hyperactivity disorder, other type 1 Capsule every morning Last Documented On 12/09/2022 5:29PM By Radha Vincent MD ; [facility] Vyvanse 40 MG OR CAPS 07/10/2017 - 08/14/2017 Provider: EILEEN VINCENT MD Diagnosis: Attention-defici t hyperactivity disorder, other type 1 Capsule every morning Last Documented On 12/09/2022 5:29PM By Radha Vincent MD ; [facility] Vyvanse 40 MG OR CAPS 06/04/2017 - 07/10/2017 Provider: EILEEN VINCENT MD Diagnosis: Attention-defici t hyperactivity disorder, other type 1 Capsule every morning Last Documented On 12/09/2022 5:29PM By Radha Vincent MD ; [facility] Vyvanse 40 MG OR CAPS 06/01/2017 - 06/04/2017 Provider: EILEEN VINCENT MD Diagnosis: Attention-defici t hyperactivity disorder, other type 1 Capsule every morning Last Documented On 12/09/2022 5:29PM By Radha Vincent MD ; [facility] busPIRone HCl 15 MG OR TABS 05/09/2017 - 09/06/2017 Provider: EILEEN VINCENT MD Diagnosis: Generalized anxi ety disorder One tablet three times a day Last Documented On 12/09/2022 5:29PM By Radha Vincent MD ; [facility] Escitalopram Oxalate 20 MG OR TABS 05/09/2017 - 06/12/2018 Provider: EILEEN VINCENT MD Diagnosis: Generalized anxi ety disorder One tablet daily Last Documented On 12/09/2022 5:29PM By Radha Vincent MD ; [facility] Namzaric 28-10 MG OR CP24 05/09/2017 - 09/06/2017 Provider: EILEEN CONNORS MD Diagnosis: Dem in oth dis c lassd elswhr,unsp sev,w/o beh/psych/mood/anx 1 Capsule every morning Last Documented On 12/09/2022 5:29PM By Radha Vincent MD ; [facility] Vyvanse 40 MG OR CAPS 05/09/2017 - 06/01/2017 Provider: EILEEN VINCENT MD Diagnosis: Attention-defici t hyperactivity disorder, other type 1 Capsule every morning Last Documented On 12/09/2022 5:29PM By Radha Vincent MD ; [facility] traZODone HCl 50 MG OR TABS 05/09/2017 - 08/28/2017 Provider: EILEEN VINCENT MD Diagnosis: Psychophysiologi c insomnia as directed --1 or 2 tabs at bedtime as needed for sleep Last Documented On 12/09/2022 5:29PM By Radha Vincent MD ; [facility] LaMICtal 150 MG OR TABS 05/09/2017 - 08/27/2017 Provider: EILEEN VINCENT MD Diagnosis: Bipolar disorder , unspecified One tablet twice a day Last Documented On 12/09/2022 5:29PM By Radha Vincent MD ; [facility] Wellbutrin XL 300 MG OR TB24 05/09/2017 - 09/06/2017 Provider: EILEEN VINCENT MD Diagnosis: Bipolar disorder , current episode depressed, moderate 1 tablet every morning Last Documented On 12/09/2022 5:29PM By Radha Vincent MD ; [facility] Vyvanse 30 MG OR CAPS 05/07/2017 - 05/09/2017 Provider: EILEEN VINCENT MD Diagnosis: Attention-defici t hyperactivity disorder, other type 1 Capsule every morning Last Documented On 12/09/2022 5:29PM By Radha Vincent MD ; [facility] Vyvanse 40 MG OR CAPS 05/07/2017 - 05/09/2017 Provider: EILEEN VINCENT MD Diagnosis: Attention-defici t hyperactivity disorder, other type 1 Capsule every morning Last Documented On 12/09/2022 5:29PM By Radha Vincent MD ; [facility] busPIRone HCl 15 MG OR TABS 04/11/2017 - 05/09/2017 Provider: EILEEN VINCENT MD Diagnosis: Generalized anxi ety disorder One tablet three times a day Last Documented On 12/09/2022 5:29PM By Radha Vincent MD ; [facility] Namzaric 28-10 MG OR CP24 04/09/2017 - 05/09/2017 Provider: EILEEN CONNORS MD Diagnosis: Dem in oth dis c lassd elswhr,unsp sev,w/o beh/psych/mood/anx as directed Last Documented On 12/09/2022 5:29PM By Radha Vincent MD ; [facility] traZODone HCl 50 MG OR TABS 04/09/2017 - 05/09/2017 Provider: EILEEN VINCENT MD Diagnosis: Psychophysiologi c insomnia as directed --1 or 2 tabs at bedtime as needed for sleep Last Documented On 12/09/2022 5:29PM By Radha Vincent MD ; [facility] Escitalopram Oxalate 20 MG OR TABS 04/09/2017 - 05/09/2017 Provider: EILEEN VINCENT MD Diagnosis: Generalized anxi ety disorder One tablet daily Last Documented On 12/09/2022 5:29PM By Radha Vincent MD ; [facility] busPIRone HCl 15 MG OR TABS 04/09/2017 - 04/11/2017 Provider: EILEEN VINCENT MD Diagnosis: Generalized anxi ety disorder One tablet three times a day --called in 90 and 6 RF on 09/20/16 Last Documented On 12/09/2022 5:29PM By Radha Vincent MD ; [facility] LaMICtal 150 MG OR TABS 04/09/2017 - 05/09/2017 Provider: EILEEN VINCENT MD Diagnosis: Bipolar disorder , unspecified One tablet twice a day Last Documented On 12/09/2022 5:29PM By Radha Vincent MD ; [facility] Terbinafine HCl 250 MG OR TABS 04/06/2017 - 01/03/2018 Provider: Diagnosis: 1 daily Last Documented On 12/09/2022 5:29PM By WILMER REDDY LPN ; [facility] Vyvanse 30 MG OR CAPS 04/06/2017 - 05/07/2017 Provider: EILEEN VINCENT MD Diagnosis: Attention-defici t hyperactivity disorder, other type 1 Capsule every morning Last Documented On 12/09/2022 5:29PM By Radha Vincent MD ; [facility] Focalin 10 MG OR TABS 02/12/2017 - 04/06/2017 Provider: EILEEN VINCENT MD Diagnosis: Attention-defici t hyperactivity disorder, other type as directed --10 mg in am an d 10 mg at noon Last Documented On 12/09/2022 5:29PM By Radha Vincent MD ; [facility] Escitalopram Oxalate 20 MG OR TABS 02/12/2017 - 04/06/2017 Provider: EILEEN VINCENT MD Diagnosis: Generalized anxi ety disorder One tablet daily Last Documented On 12/09/2022 5:29PM By Radha Vincent MD ; [facility] LaMICtal 150 MG OR TABS 02/12/2017 - 04/06/2017 Provider: EILEEN VINCENT MD Diagnosis: Bipolar disorder , unspecified One tablet twice a day Last Documented On 12/09/2022 5:29PM By Radha Vincent MD ; [facility] busPIRone HCl 15 MG OR TABS 02/12/2017 - 04/06/2017 Provider: EILEEN VINCENT MD Diagnosis: Generalized anxi ety disorder One tablet three times a day --called in 90 and 6 RF on 09/20/16 Last Documented On 12/09/2022 5:29PM By Radha Vincent MD ; [facility] Namzaric 28-10 MG OR CP24 02/12/2017 - 04/06/2017 Provider: EILEEN CONNORS MD Diagnosis: Dem in oth dis c lassd elswhr,unsp sev,w/o beh/psych/mood/anx as directed Last Documented On 12/09/2022 5:29PM By Radha Vincent MD ; [facility] traZODone HCl 50 MG OR TABS 02/12/2017 - 04/06/2017 Provider: EILEEN VINCENT MD Diagnosis: Psychophysiologi c insomnia as directed --1 or 2 tabs at bedtime as needed for sleep Last Documented On 12/09/2022 5:29PM By Radha Vincent MD ; [facility] Wellbutrin XL 300 MG OR TB24 02/09/2017 - 05/09/2017 Provider: EILEEN VINCENT MD Diagnosis: Bipolar disorder , current episode depressed, moderate 1 tablet every morning Last Documented On 12/09/2022 5:29PM By Radha Vincent MD ; [facility] Focalin 10 MG OR TABS 01/16/2017 - 04/06/2017 Provider: EILEEN VINCENT MD Diagnosis: Attention-defici t hyperactivity disorder, other type 1 tablet every morning Last Documented On 12/09/2022 5:29PM By Radha Vincent MD ; [facility] LaMICtal 150 MG OR TABS 10/23/2016 - 01/16/2017 Provider: EILEEN VINCENT MD Diagnosis: Bipolar disorder , unspecified One tablet twice a day Last Documented On 12/09/2022 5:29PM By Radha Vincent MD ; [facility] Wellbutrin XL 300 MG OR TB24 10/23/2016 - 02/09/2017 Provider: EILEEN VINCENT MD Diagnosis: Bipolar disorder , current episode depressed, moderate 1 tablet every morning Last Documented On 12/09/2022 5:29PM By Radha Vincent MD ; [facility] busPIRone HCl 15 MG OR TABS 10/23/2016 - 01/16/2017 Provider: EILEEN VINCENT MD Diagnosis: Generalized anxi ety disorder One tablet three times a day --called in 90 and 6 RF on 09/20/16 Last Documented On 12/09/2022 5:29PM By Radha Vincent MD ; [facility] traZODone HCl 50 MG OR TABS 10/23/2016 - 01/16/2017 Provider: EILEEN VINCENT MD Diagnosis: Psychophysiologi c insomnia as directed --1 or 2 tabs at bedtime as needed for sleep Last Documented On 12/09/2022 5:29PM By Radha Vincent MD ; [facility] Escitalopram Oxalate 20 MG OR TABS 10/23/2016 - 01/16/2017 Provider: EILEEN VINCENT MD Diagnosis: Generalized anxi ety disorder One tablet daily Last Documented On 12/09/2022 5:29PM By Radha Vincent MD ; [facility] Namzaric 28-10 MG OR CP24 10/12/2016 - 01/16/2017 Provider: EILEEN CONNORS MD Diagnosis: Dem in oth dis c lassd elswhr,unsp sev,w/o beh/psych/mood/anx as directed Last Documented On 12/09/2022 5:29PM By Radha Vincent MD ; [facility] busPIRone HCl 15 MG OR TABS 09/20/2016 - 10/12/2016 Provider: EILEEN VINCENT MD Diagnosis: Generalized anxi ety disorder One tablet three times a day --called in 90 and 6 RF on 09/20/16 Last Documented On 12/09/2022 5:29PM By Radha Vincent MD ; [facility] Escitalopram Oxalate 20 MG OR TABS 08/01/2016 - 10/12/2016 Provider: EILEEN VINCENT MD Diagnosis: Generalized anxi ety disorder One tablet daily Last Documented On 12/09/2022 5:29PM By Radha Vincent MD ; [facility] busPIRone HCl 15 MG OR TABS 08/01/2016 - 09/20/2016 Provider: EILEEN VINCENT MD Diagnosis: Generalized anxi ety disorder One tablet three times a day Last Documented On 12/09/2022 5:29PM By Radha Vincent MD ; [facility] Terbinafine HCl 250 MG OR TABS 08/01/2016 - 01/16/2017 Provider: Diagnosis: 1 daily Last Documented On 12/09/2022 5:29PM By WILMER REDDY LPN ; [facility] traZODone HCl 50 MG OR TABS 08/01/2016 - 10/12/2016 Provider: EILEEN CONNORS MD Diagnosis: Oth insomnia not due to a substance or known physiol cond as directed --1 or 2 tabs at bedtime as needed for sleep Last Documented On 12/09/2022 5:29PM By Radha Vincent MD ; [facility] Namenda XR 28 MG OR CP24 08/01/2016 - 10/23/2016 Provider: EILEEN CONNORS MD Diagnosis: Unsp dementia, u nsp severity, without beh/psych/mood/anx 1 Capsule every morning Last Documented On 12/09/2022 5:29PM By Radha Vincent MD ; [facility] LaMICtal 150 MG OR TABS 08/01/2016 - 10/12/2016 Provider: EILEEN CONNORS MD Diagnosis: Bipolar disord, crnt epsd depress, mild or mod severt, unsp One tablet twice a day Last Documented On 12/09/2022 5:29PM By Radha Vincent MD ; [facility] Aricept 23 MG OR TABS 08/01/2016 - 10/23/2016 Provider: EILEEN CONNORS MD Diagnosis: Unsp dementia, u nsp severity, without beh/psych/mood/anx One tablet daily Last Documented On 12/09/2022 5:29PM By Radha Vincent MD ; [facility] Aricept 23 MG OR TABS 07/28/2016 - 08/01/2016 Provider: EILEEN CONNORS MD Diagnosis: Unsp dementia, u nsp severity, without beh/psych/mood/anx One tablet daily Last Documented On 12/09/2022 5:29PM By Radha Vincent MD ; [facility] traZODone HCl 50 MG OR TABS 07/28/2016 - 08/01/2016 Provider: EILEEN CONNORS MD Diagnosis: Oth insomnia not due to a substance or known physiol cond as directed --1 or 2 tabs at bedtime as needed for sleep Last Documented On 12/09/2022 5:29PM By Radha Vincent MD ; [facility] LaMICtal 150 MG OR TABS 06/27/2016 - 08/01/2016 Provider: EILEEN CONNORS MD Diagnosis: Bipolar disord, crnt epsd depress, mild or mod severt, unsp One tablet twice a day Last Documented On 12/09/2022 5:29PM By Radha Vincent MD ; [facility] Namenda XR 28 MG OR CP24 03/13/2016 - 08/01/2016 Provider: EILEEN CONNORS MD Diagnosis: Unsp dementia, u nsp severity, without beh/psych/mood/anx 1 Capsule every morning -- h as 2 RF left as of 03/13/16 -- [facility] Last Documented On 12/09/2022 5:29PM By Radha Vincent MD ; [facility] LaMICtal 150 MG OR TABS 03/13/2016 - 06/27/2016 Provider: EILEEN CONNORS MD Diagnosis: Bipolar disord, crnt epsd depress, mild or mod severt, unsp One tablet twice a day Last Documented On 12/09/2022 5:29PM By Radha Vincent MD ; [facility] Wellbutrin XL 300 MG OR TB24 03/13/2016 - 10/12/2016 Provider: EILEEN VINCENT MD Diagnosis: Bipolar disorder , current episode depressed, moderate 1 tablet every morning Last Documented On 12/09/2022 5:29PM By Radha Vincent MD ; [facility] traZODone HCl 50 MG OR TABS 03/13/2016 - 07/28/2016 Provider: EILEEN CONNORS MD Diagnosis: Oth insomnia not due to a substance or known physiol cond as directed --1 or 2 tabs at bedtime as needed for sleep Last Documented On 12/09/2022 5:29PM By Radha Vincent MD ; [facility] Aricept 23 MG OR TABS 03/13/2016 - 07/28/2016 Provider: EILEEN CONNORS MD Diagnosis: Unsp dementia, u nsp severity, without beh/psych/mood/anx One tablet daily Last Documented On 12/09/2022 5:29PM By Radha Vincent MD ; [facility] Escitalopram Oxalate 20 MG OR TABS 03/13/2016 - 08/01/2016 Provider: EILEEN VINCENT MD Diagnosis: Generalized anxi ety disorder One tablet daily Last Documented On 12/09/2022 5:29PM By Radha Vincent MD ; [facility] busPIRone HCl 15 MG OR TABS 03/13/2016 - 08/01/2016 Provider: EILEEN VINCENT MD Diagnosis: Generalized anxi ety disorder One tablet three times a day Last Documented On 12/09/2022 5:29PM By Radha Vincent MD ; [facility] Escitalopram Oxalate 20 MG OR TABS 03/09/2016 - 03/13/2016 Provider: EILEEN VINCENT MD Diagnosis: Generalized anxi ety disorder One tablet daily Last Documented On 12/09/2022 5:29PM By Radha Vincent MD ; [facility] Escitalopram Oxalate 20 MG Tablet 03/08/2016 - 04/18/2023 Provider: URIEL BA MD Diagnosis: One tablet daily Last Documented On 04/18/2023 10:30AM By WISAM CASH ; [facility] Levothyroxine Sodium 88 MCG OR TABS 03/04/2016 - 04/21 Provider: Diagnosis: 1 tablet daily Last Documented On 12/09/2022 5:29PM By WILMER REDDY LPN ; [facility] Wellbutrin XL 300 MG OR TB24 02/17/2016 - 03/13/2016 Provider: EILEEN VINCENT MD Diagnosis: Bipolar disorder , current episode depressed, moderate 1 tablet every morning Last Documented On 12/09/2022 5:29PM By Radha Vincent MD ; [facility] Wellbutrin XL 300 MG OR TB24 02/07/2016 - 02/17/2016 Provider: EILEEN VINCENT MD Diagnosis: Bipolar disorder , current episode depressed, moderate 1 tablet every morning Last Documented On 12/09/2022 5:29PM By Radha Vincent MD ; [facility] Namenda XR 28 MG OR CP24 01/17/2016 - 03/13/2016 Provider: EILEEN CONNORS MD Diagnosis: Unsp dementia, u nsp severity, without beh/psych/mood/anx 1 Capsule every morning Last Documented On 12/09/2022 5:29PM By Radha Vincent MD ; [facility] Namenda XR 28 MG OR CP24 01/12/2016 - 01/17/2016 Provider: EILEEN CONNORS MD Diagnosis: Unsp dementia, u nsp severity, without beh/psych/mood/anx 1 Capsule every morning Last Documented On 12/09/2022 5:29PM By Radha Vincent MD ; [facility] Dicyclomine HCl 10 MG OR CAPS 11/10/2015 - 09/14/2023 Provider: Diagnosis: 1 capsule daily Last Documented On 09/14/2023 11:16AM By WISAM CASH ; [facility] Calcium 600+D 600-400 MG-UNIT OR TABS 11/10/2015 - 12/2021 Provider: Diagnosis: 1 tablet twice a day Last Documented On 12/09/2022 5:29PM By WILMER REDDY LPN ; [facility] Omeprazole 20 MG OR TBEC 11/10/2015 - 12/15/2019 Provi itz: Diagnosis: 1 tablet daily Last Documented On 12/09/2022 5:29PM By WILMER REDDY LPN ; [facility] amLODIPine Besy-Benazepril HCl 5-10 MG OR CAPS 0 11/10/2015 - 03/13/2016 Provider: Diagnosis: 1 capsule daily Last Documented On 12/09/2022 5:29PM By WILMER REDDY LPN ; [facility] Metoprolol Tartrate 25 MG OR TABS 10/09/2015 - 018 Provider: Diagnosis: Take 1/2 tablet two times a day Last Documented On 12/09/2022 5:29PM By WILMER REDDY LPN ; [facility] Pantoprazole Sodium 40 MG OR TBEC 09/30/2015 - 018 Provider: Diagnosis: 1 tablet daily Last Documented On 12/09/2022 5:29PM By WILMER REDDY LPN ; [facility] Namenda XR 28 MG OR CP24 07/29/2015 - 01/12/2016 Provider: EILEEN CONNORS MD Diagnosis: Unsp dementia, u nsp severity, without beh/psych/mood/anx 1 Capsule every morning Last Documented On 12/09/2022 5:29PM By Radha Vincent MD ; [facility] traZODone HCl 50 MG OR TABS 07/29/2015 - 03/13/2016 Provider: EILEEN CONNORS MD Diagnosis: Oth insomnia not due to a substance or known physiol cond One tablet at bed time Last Documented On 12/09/2022 5:29PM By Radha Vincent MD ; [facility] Aricept 23 MG OR TABS 07/29/2015 - 03/13/2016 Provider: EILEEN CONNORS MD Diagnosis: Unsp dementia, u nsp severity, without beh/psych/mood/anx One tablet daily Last Documented On 12/09/2022 5:29PM By Radha Vnicent MD ; [facility] Escitalopram Oxalate 20 MG OR TABS 07/29/2015 - 03/09/2016 Provider: EILEEN VINCENT MD Diagnosis: Generalized anxi ety disorder One tablet daily Last Documented On 12/09/2022 5:29PM By Radha Vincent MD ; [facility] Wellbutrin XL 300 MG OR TB24 07/29/2015 - 02/07/2016 Provider: EILEEN VINCENT MD Diagnosis: Bipolar disorder , current episode depressed, moderate 1 tablet every morning Last Documented On 12/09/2022 5:29PM By Radha Vincent MD ; [facility] LaMICtal 150 MG OR TABS 07/29/2015 - 03/13/2016 Provider: EILEEN CONNORS MD Diagnosis: Bipolar disord, crnt epsd depress, mild or mod severt, unsp One tablet twice a day Last Documented On 12/09/2022 5:29PM By Radha Vincent MD ; [facility] busPIRone HCl 10 MG OR TABS 07/29/2015 - 09/20/2016 Provider: EILEEN VINCENT MD Diagnosis: Generalized anxi ety disorder One tablet three times a day Last Documented On 12/09/2022 5:29PM By Radha Vincent MD ; [facility] busPIRone HCl 10 MG OR TABS 05/24/2015 - 07/29/2015 Provider: EILEEN VINCENT MD Diagnosis: Generalized anxi ety disorder One tablet three times a day Last Documented On 12/09/2022 5:29PM By Radha Vincent MD ; [facility] Namenda XR 28 MG OR CP24 05/24/2015 - 07/29/2015 Provider: EILEEN CONNORS MD Diagnosis: Unsp dementia, u nsp severity, without beh/psych/mood/anx 1 Capsule every morning Last Documented On 12/09/2022 5:29PM By Radha Vincent MD ; [facility] LaMICtal 150 MG OR TABS 05/24/2015 - 07/29/2015 Provider: EILEEN CONNORS MD Diagnosis: Bipolar disord, crnt epsd depress, mild or mod severt, unsp One tablet twice a day Last Documented On 12/09/2022 5:29PM By Radha Vincent MD ; [facility] Wellbutrin XL 300 MG OR TB24 05/24/2015 - 07/29/2015 Provider: EILEEN VINCENT MD Diagnosis: Bipolar disorder , current episode depressed, moderate 1 tablet every morning Last Documented On 12/09/2022 5:29PM By Radha Vincent MD ; [facility] traZODone HCl 50 MG OR TABS 05/24/2015 - 07/29/2015 Provider: EILEEN CONNORS MD Diagnosis: Oth insomnia not due to a substance or known physiol cond One tablet at bed time Last Documented On 12/09/2022 5:29PM By Radha Vincent MD ; [facility] Aricept 23 MG OR TABS 05/24/2015 - 07/29/2015 Provider: EILEEN CONNORS MD Diagnosis: Unsp dementia, u nsp severity, without beh/psych/mood/anx One tablet daily Last Documented On 12/09/2022 5:29PM By Radha Vincent MD ; [facility] Escitalopram Oxalate 20 MG OR TABS 05/24/2015 - 07/29/2015 Provider: EILEEN VINCENT MD Diagnosis: Generalized anxi ety disorder One tablet daily Last Documented On 12/09/2022 5:29PM By Radha Vincent MD ; [facility] Synthroid 88 MCG OR TABS 02/16/2015 - 01/16/2017 Provi itz: Diagnosis: Hypothyroidism, unspecified 1 tablet daily Last Documented On 12/09/2022 5:29PM By WILMER REDDY LPN ; [facility] busPIRone HCl 10 MG OR TABS 01/28/2015 - 05/24/2015 Provider: EILEEN VINCENT MD Diagnosis: GENERALIZED ANXI ETY DIS One tablet three times a day Last Documented On 12/09/2022 5:29PM By Radha Vincent MD ; [facility] Namenda XR 28 MG OR CP24 01/28/2015 - 05/24/2015 Provider: EILEEN CONNORS MD Diagnosis: PRESENILE HANNY IA 1 Capsule every morning Last Documented On 12/09/2022 5:29PM By Radha Vincent MD ; [facility] LaMICtal 150 MG OR TABS 01/28/2015 - 05/24/2015 Provider: EILEEN CONNORS MD Diagnosis: BIPOL I CUR DEPR ES NOS One tablet twice a day Last Documented On 12/09/2022 5:29PM By Radha Vincent MD ; [facility] Wellbutrin XL 300 MG OR TB24 01/28/2015 - 05/24/2015 Provider: EILEEN VINCENT MD Diagnosis: BIPOL I CUR DEPR ES NOS 1 tablet every morning Last Documented On 12/09/2022 5:29PM By Radha Vincent MD ; [facility] traZODone HCl 50 MG OR TABS 01/28/2015 - 05/24/2015 Provider: EILEEN CONNORS MD Diagnosis: PERSISTENT INSOM MURIEL One tablet at bed time Last Documented On 12/09/2022 5:29PM By Radha Vincent MD ; [facility] Escitalopram Oxalate 20 MG OR TABS 01/28/2015 - 05/24/2015 Provider: EILEEN VINCENT MD Diagnosis: GENERALIZED ANXI ETY DIS One tablet daily Last Documented On 12/09/2022 5:29PM By Radha Vincent MD ; [facility] Aricept 23 MG OR TABS 01/28/2015 - 05/24/2015 Provider : EILEEN VINCENT MD Diagnosis: PRESENILE HANNY IA One tablet daily Last Documented On 12/09/2022 5:29PM By Radha Vincent MD ; [facility] traZODone HCl 50 MG OR TABS 12/09/2014 - 01/28/2015 Provider: EILEEN CONNORS MD Diagnosis: PERSISTENT INSOM MURIEL One tablet at bed time Last Documented On 12/09/2022 5:29PM By Radha Vincent MD ; [facility] traZODone HCl 50 MG OR TABS 11/06/2014 - 12/09/2014 Provider: EILEEN CONNORS MD Diagnosis: PERSISTENT INSOM MURIEL One tablet at bed time Last Documented On 12/09/2022 5:29PM By Radha Vincent MD ; [facility] busPIRone HCl 10 MG OR TABS 10/15/2014 - 01/28/2015 Provider: EILEEN VINCENT MD Diagnosis: GENERALIZED ANXI ETY DIS as needed for anxiety Last Documented On 12/09/2022 5:29PM By Radha Vincent MD ; [facility] Namenda XR 28 MG OR CP24 10/15/2014 - 01/28/2015 Provider: EILEEN CONNORS MD Diagnosis: PRESENILE HANNY IA Last Documented On 12/09/2022 5:29PM By Radha Vincent MD ; [facility] LaMICtal 150 MG OR TABS 10/15/2014 - 01/28/2015 Provider: EILEEN CONNORS MD Diagnosis: BIPOL I CUR DEPR ES NOS Last Documented On 12/09/2022 5:29PM By Radha Vincent MD ; [facility] traZODone HCl 50 MG OR TABS 10/15/2014 - 11/06/2014 Provider: EILEEN CONNORS MD Diagnosis: PERSISTENT INSOM MURIEL Last Documented On 12/09/2022 5:29PM By Radha Vincent MD ; [facility] Aricept 23 MG OR TABS 10/15/2014 - 01/28/2015 Provider : EILEEN VINCENT MD Diagnosis: PRESENILE HANNY IA Last Documented On 12/09/2022 5:29PM By Radha Vincent MD ; [facility] Escitalopram Oxalate 20 MG OR TABS 10/15/2014 - 01/28/2015 Provider: EILEEN VINCENT MD Diagnosis: GENERALIZED ANXI ETY DIS Last Documented On 12/09/2022 5:29PM By Radha Vincent MD ; [facility] Wellbutrin XL 300 MG OR TB24 10/15/2014 - 01/28/2015 Provider: EILEEN VINCENT MD Diagnosis: BIPOL I CUR DEPR ES NOS Last Documented On 12/09/2022 5:29PM By Radha Vincent MD ; [facility] Fetzima Titration 20 & 40 MG OR C4PK 07/16/2014 - 10/15/2014 Provider: EILEEN VINCENT MD Diagnosis: GENERALIZED ANXI ETY DIS 20 mg in am for 2 days then 40 mg in am thereafter -- 50 samples given 2 months samples Last Documented On 12/09/2022 5:29PM By Radha Vincent MD ; [facility] Fetzima 40 MG OR CP24 07/16/2014 - 10/15/2014 Provider: EILEEN CONNORS MD Diagnosis: GENERALIZED ANXI ETY DIS Last Documented On 12/09/2022 5:29PM By Radha Vincent MD ; [facility] Wellbutrin XL 150 MG OR TB24 07/16/2014 - 05/24/2015 Provider: EILEEN VINCENT MD Diagnosis: BIPOL I CUR DEPR ES NOS Last Documented On 12/09/2022 5:29PM By Radha Vincent MD ; [facility] traZODone HCl 50 MG OR TABS 07/16/2014 - 10/15/2014 Provider: EILEEN CONNORS MD Diagnosis: PERSISTENT INSOM MURIEL Last Documented On 12/09/2022 5:29PM By Radha Vincent MD ; [facility] LaMICtal 150 MG OR TABS 07/16/2014 - 10/15/2014 Provider: EILEEN CONNORS MD Diagnosis: BIPOL I CUR DEPR ES NOS Last Documented On 12/09/2022 5:29PM By Radha Vincent MD ; [facility] Namenda XR 28 MG OR CP24 07/16/2014 - 10/15/2014 Provider: EILEEN CONNORS MD Diagnosis: PRESENILE HANNY IA Last Documented On 12/09/2022 5:29PM By Radha Vincent MD ; [facility] busPIRone HCl 10 MG OR TABS 07/16/2014 - 10/15/2014 Provider: EILEEN VINCENT MD Diagnosis: GENERALIZED ANXI ETY DIS as needed for anxiety Last Documented On 12/09/2022 5:29PM By Radha Vincent MD ; [facility] Aricept 23 MG OR TABS 07/16/2014 - 10/15/2014 Provider : EILEEN VINCENT MD Diagnosis: PRESENILE HANNY IA Last Documented On 12/09/2022 5:29PM By Radha Vincent MD ; [facility] Escitalopram Oxalate 20 MG OR TABS 07/16/2014 - 10/15/2014 Provider: EILEEN VINCENT MD Diagnosis: GENERALIZED ANXI ETY DIS Last Documented On 12/09/2022 5:29PM By Radha Vincent MD ; [facility] Fetzima Titration 20 & 40 MG OR C4PK 06/01/2014 - 07/16/2014 Provider: EILEEN VINCENT MD Diagnosis: GENERALIZED ANXI ETY DIS 20 mg in am for 2 days then 40 mg in am thereafter -- 50 samples given Last Documented On 12/09/2022 5:29PM By Radha Vincent MD ; [facility] busPIRone HCl 10 MG OR TABS 05/20/2014 - 04/18/2023 Pr ovider: URIEL LEON MD Diagnosis: TAKE 1 TABLET 3 TIMES DAILY NEEDED FOR ANXIET Y Last Documented On 04/18/2023 10:30AM By WISAM CASH ; [facility] busPIRone HCl 10 MG OR TABS 04/30/2014 - 07/16/2014 Provider: EILEEN VINCENT MD Diagnosis: GENERALIZED ANXI ETY DIS as needed for anxiety --was told to take extra Buspar when she has bad thought since she is only taking it 2 x a day Last Documented On 12/09/2022 5:29PM By Radha Vincent MD ; [facility] traZODone HCl 50 MG OR TABS 04/07/2014 - 07/16/2014 Provider: EILEEN CONNORS MD Diagnosis: PERSISTENT INSOM MURIEL Last Documented On 12/09/2022 5:29PM By Radha Vincent MD ; [facility] Namenda XR 28 MG OR CP24 04/07/2014 - 07/16/2014 Provider: EILEEN CONNORS MD Diagnosis: PRESENILE HANNY IA Last Documented On 12/09/2022 5:29PM By Radha Vincent MD ; [facility] Escitalopram Oxalate 20 MG OR TABS 04/07/2014 - 07/16/2014 Provider: EILEEN VINCENT MD Diagnosis: GENERALIZED ANXI ETY DIS Last Documented On 12/09/2022 5:29PM By Radha Vincent MD ; [facility] busPIRone HCl 10 MG OR TABS 04/07/2014 - 04/30/2014 Provider: EILEEN VINCENT MD Diagnosis: GENERALIZED ANXI ETY DIS as needed for anxiety Last Documented On 12/09/2022 5:29PM By Radha Vincent MD ; [facility] LaMICtal 150 MG OR TABS 04/07/2014 - 07/16/2014 Provider: EILEEN CONNORS MD Diagnosis: BIPOL I CUR DEPR ES NOS Last Documented On 12/09/2022 5:29PM By Radha Vincent MD ; [facility] Wellbutrin XL 150 MG OR TB24 04/07/2014 - 07/16/2014 Provider: EILEEN VINCENT MD Diagnosis: BIPOL I CUR DEPR ES NOS Last Documented On 12/09/2022 5:29PM By Radha Vincent MD ; [facility] Aricept 23 MG OR TABS 04/07/2014 - 07/16/2014 Provider : EILEEN VINCENT MD Diagnosis: PRESENILE HANNY IA Last Documented On 12/09/2022 5:29PM By Radha Vincent MD ; [facility] traZODone HCl 50 MG OR TABS 02/09/2014 - 04/07/2014 Provider: EILEEN CONNORS MD Diagnosis: PERSISTENT INSOM MURIEL Last Documented On 12/09/2022 5:29PM By Radha Vincent MD ; [facility] Lipitor 20 MG OR TABS 02/09/2014 - 11/10/2015 Provider : Diagnosis: 1 every p.m. Last Documented On 12/09/2022 5:29PM By TERRI CASH ; [facility] Aspirin 81 MG OR TABS 02/09/2014 - 11/10/2015 Provider : Diagnosis: 1 every morning Last Documented On 12/09/2022 5:29PM By TERRI CASH ; [facility] Lasix 20 MG OR TABS 02/09/2014 - 11/10/2015 Provider: Diagnosis: 1 every morning Last Documented On 12/09/2022 5:29PM By TERRI CASH ; [facility] Wellbutrin XL 150 MG OR TB24 02/09/2014 - 04/07/2014 Provider: EILEEN VINCENT MD Diagnosis: BIPOL I CUR DEPR ES NOS 1 tablet every morning Last Documented On 12/09/2022 5:29PM By Radha Vincent MD ; [facility] Aricept 23 MG OR TABS 02/09/2014 - 04/07/2014 Provider : EILEEN VINCENT MD Diagnosis: PRESENILE HANNY IA Last Documented On 12/09/2022 5:29PM By Radha Vincent MD ; [facility] Escitalopram Oxalate 20 MG OR TABS 02/09/2014 - 04/07/2014 Provider: EILEEN VINCENT MD Diagnosis: GENERALIZED ANXI ETY DIS Last Documented On 12/09/2022 5:29PM By Radha Vincent MD ; [facility] busPIRone HCl 10 MG OR TABS 02/09/2014 - 04/07/2014 Provider: EILEEN VINCENT MD Diagnosis: GENERALIZED ANXI ETY DIS as needed for anxiety Last Documented On 12/09/2022 5:29PM By Radha Vincent MD ; [facility] Namenda XR 28 MG OR CP24 02/09/2014 - 04/07/2014 Provider: EILEEN CONNORS MD Diagnosis: PRESENILE HANNY [place] Last Documented On 12/09/2022 5:29PM By Radha Vincent MD ; [facility] Terbinafine HCl 250 MG OR TABS 12/18/2013 - 04/07/2014 Provider: Diagnosis: one tablet daily Last Documented On 12/09/2022 5:29PM By TERRI CASH ; [facility] traZODone HCl 50 MG OR TABS 11/22/2013 - 02/09/2014 Provider: EILEEN CONNORS MD Diagnosis: PERSISTENT INSOM MURIEL Last Documented On 12/09/2022 5:29PM By Radha Vincent MD ; [facility] Wellbutrin XL 150 MG OR TB24 11/22/2013 - 02/09/2014 Provider: EILEEN VINCENT MD Diagnosis: BIPOL I CUR DEPR ES NOS 1 tablet every morning Last Documented On 12/09/2022 5:29PM By Radha Vincent MD ; [facility] Escitalopram Oxalate 20 MG OR TABS 11/22/2013 - 02/09/2014 Provider: EILEEN VINCENT MD Diagnosis: GENERALIZED ANXI ETY DIS Last Documented On 12/09/2022 5:29PM By Radha Vincent MD ; [facility] Aricept 23 MG OR TABS 11/22/2013 - 02/09/2014 Provider : EILEEN VINCENT MD Diagnosis: PRESENILE HANNY [place] Last Documented On 12/09/2022 5:29PM By Radha Vincent MD ; [facility] Namenda XR 28 MG OR CP24 11/22/2013 - 02/09/2014 Provider: EILEEN CONNORS MD Diagnosis: PRESENILE HANNY IA Last Documented On 12/09/2022 5:29PM By Radha Vincent MD ; [facility] busPIRone HCl 10 MG OR TABS 11/21/2013 - 02/09/2014 Provider: EILEEN VINCENT MD Diagnosis: GENERALIZED ANXI ETY DIS as needed for anxiety Last Documented On 12/09/2022 5:29PM By Radha Vincent MD ; [facility] LaMICtal 150 MG OR TABS 11/21/2013 - 04/07/2014 Provider: EILEEN CONNORS MD Diagnosis: BIPOL I CUR DEPR ES NOS Last Documented On 12/09/2022 5:29PM By Radha Vincent MD ; [facility] traZODone HCl 50 MG OR TABS 11/11/2013 - 11/21/2013 Pr ovider: Diagnosis: Last Documented On 12/09/2022 5:29PM By TERRI CASH ; [facility] Fanapt 2 MG OR TABS 10/23/2013 - 10/23/2013 Provider: EILEEN VINCENT MD Diagnosis: BIPOL I CUR DEPR ES NOS Last Documented On 12/09/2022 5:29PM By Radha Vincent MD ; [facility] Fanapt 2 MG OR TABS 10/23/2013 - 11/22/2013 Provider: EILEEN VINCENT MD Diagnosis: BIPOL I CUR DEPR ES NOS pt given samples of 1 mg bid then 2 mg bid --4 tablets samples Last Documented On 12/09/2022 5:29PM By Radha Vincent MD ; [facility] Namenda XR 28 MG OR CP24 10/23/2013 - 11/21/2013 Provider: EILEEN CONNORS MD Diagnosis: PRESENILE HANNY [place] Last Documented On 12/09/2022 5:29PM By Radha Vincent MD ; [facility] busPIRone HCl 10 MG OR TABS 10/23/2013 - 11/21/2013 Provider: EILEEN VINCENT MD Diagnosis: GENERALIZED ANXI ETY DIS as needed for anxiety Last Documented On 12/09/2022 5:29PM By Radha Vincent MD ; [facility] Escitalopram Oxalate 20 MG OR TABS 10/23/2013 - 11/21/2013 Provider: EILEEN VINCENT MD Diagnosis: GENERALIZED ANXI ETY DIS Last Documented On 12/09/2022 5:29PM By Radha Vincent MD ; [facility] Aricept 23 MG OR TABS 10/23/2013 - 11/21/2013 Provider : EILEEN VINCENT MD Diagnosis: PRESENILE HANNY IA Last Documented On 12/09/2022 5:29PM By Radha Vincent MD ; [facility] Wellbutrin XL 150 MG OR TB24 10/23/2013 - 11/21/2013 Provider: EILEEN VINCENT MD Diagnosis: BIPOL I CUR DEPR ES NOS 1 tablet every morning Last Documented On 12/09/2022 5:29PM By Radha Vincent MD ; [facility] lamoTRIgine 200 MG OR TABS 10/23/2013 - 11/22/2013 Provider: EILEEN VINCENT MD Diagnosis: BIPOL I CUR DEPR ES NOS Last Documented On 12/09/2022 5:29PM By Radha Vincent MD ; [facility] Aricept 23 MG OR TABS 07/28/2013 - 10/23/2013 Provider : EILEEN VINCENT MD Diagnosis: PRESENILE HANNY IA Last Documented On 12/09/2022 5:29PM By Radha Vincent MD ; [facility] Escitalopram Oxalate 20 MG OR TABS 07/28/2013 - 10/23/2013 Provider: EILEEN VINCENT MD Diagnosis: GENERALIZED ANXI ETY DIS Last Documented On 12/09/2022 5:29PM By Radha Vincent MD ; [facility] Wellbutrin XL 150 MG OR TB24 07/28/2013 - 10/23/2013 Provider: EILEEN VINCENT MD Diagnosis: BIPOL I CUR DEPR ES NOS 1 tablet every morning Last Documented On 12/09/2022 5:29PM By Radha Vincent MD ; [facility] lamoTRIgine 200 MG OR TABS 07/28/2013 - 10/23/2013 Provider: EILEEN VINCENT MD Diagnosis: BIPOL I CUR DEPR ES NOS Last Documented On 12/09/2022 5:29PM By Radha Vincent MD ; [facility] busPIRone HCl 10 MG OR TABS 07/28/2013 - 10/23/2013 Provider: EIELEN VINCENT MD Diagnosis: GENERALIZED ANXI ETY DIS as needed for anxiety Last Documented On 12/09/2022 5:29PM By Radha Vincent MD ; [facility] Namenda XR 28 MG OR CP24 07/28/2013 - 10/23/2013 Provider: EILEEN CONNORS MD Diagnosis: PRESENILE HANNY IA Last Documented On 12/09/2022 5:29PM By Radha Vincent MD ; [facility] Neupro 1 MG/24HR TD PT24 07/28/2013 - 10/23/2013 Provider: EILEEN CONNORS MD Diagnosis: Restless Legs Sy ndrome apply 1 patch to skin of upp er arm, flank etc...once a day--totate sites Last Documented On 12/09/2022 5:29PM By Radha Vincent MD ; [facility] Diclofenac Sodium 75 MG OR TBEC 07/28/2013 - 4 Provider: Diagnosis: Last Documented On 12/09/2022 5:29PM By TERRI CASH ; [facility] Wellbutrin XL 150 MG OR TB24 05/07/2013 - 07/28/2013 Provider: EILEEN VINCENT MD Diagnosis: BIPOL I CUR DEPR ES NOS 1 tablet every morning Last Documented On 12/09/2022 5:29PM By Radha Vincent MD ; [facility] lamoTRIgine 200 MG OR TABS 05/07/2013 - 07/28/2013 Provider: EILEEN VINCENT MD Diagnosis: BIPOL I CUR DEPR ES NOS Last Documented On 12/09/2022 5:29PM By Radha Vincent MD ; [facility] Dicyclomine HCl 10 MG OR CAPS 05/07/2013 - 11/10/2015 Provider: Diagnosis: Last Documented On 12/09/2022 5:29PM By Conversion User ; [facility] Aricept 23 MG OR TABS 05/07/2013 - 05/07/2013 Provider : Diagnosis: It is now 28mg qd Last Documented On 12/09/2022 5:29PM By Conversion User ; [facility] Aricept 23 MG OR TABS 05/07/2013 - 07/28/2013 Provider : EILEEN VINCENT MD Diagnosis: PRESENILE HANNY IA It is now 28mg qd Last Documented On 12/09/2022 5:29PM By Radha Vincent MD ; [facility] Namenda 10 MG OR TABS 05/07/2013 - 11/21/2013 Provider : EILEEN VINCENT MD Diagnosis: PRESENILE HANNY IA Namenda XR 28 mg a day for 9 0 days and 3 refill--pt started 05/07/13 Last Documented On 12/09/2022 5:29PM By Radha Vincent MD ; [facility] Oleptro 150 MG OR TB24 05/07/2013 - 10/23/2013 Provider: EILEEN CONNORS MD Diagnosis: GENERALIZED ANXI ETY DIS Last Documented On 12/09/2022 5:29PM By Radha Vincent MD ; [facility] Escitalopram Oxalate 20 MG OR TABS 05/07/2013 - 07/28/2013 Provider: EILEEN VINCENT MD Diagnosis: GENERALIZED ANXI ETY DIS Last Documented On 12/09/2022 5:29PM By Radha Vincent MD ; [facility] Aricept 23 MG OR TABS 05/07/2013 - 05/07/2013 Provider : Diagnosis: Last Documented On 12/09/2022 5:29PM By Conversion User ; [facility] Escitalopram Oxalate 20 MG OR TABS 01/28/2013 - 05/07/2013 Provider: EILEEN VINCENT MD Diagnosis: GENERALIZED ANXI ETY DIS Last Documented On 12/09/2022 5:29PM By Radha Vincent MD ; [facility] Synthroid 88 MCG OR TABS 01/28/2013 - 11/10/2015 Provi itz: Diagnosis: Last Documented On 12/09/2022 5:29PM By TERRI CASH ; [facility] Vitamin D 25 MCG (1000 UT) OR TABS 01/28/2013 - Provider: Diagnosis: 2 a day Last Documented On 12/09/2022 5:29PM By Radha Vincent MD ; [facility] Wellbutrin XL 150 MG OR TB24 01/28/2013 - 05/07/2013 Provider: EILEEN VINCENT MD Diagnosis: GENERALIZED ANXI ETY DIS 1 tablet every morning Last Documented On 12/09/2022 5:29PM By Radha Vincent MD ; [facility] Namenda 10 MG OR TABS 01/28/2013 - 05/07/2013 Provider : EILEEN VINCENT MD Diagnosis: PRESENILE HANNY IA Finish current supply of 10 mg bid and then start Namenda XR 28 mg a day for 90 days and 3 refill Last Documented On 12/09/2022 5:29PM By Radha Vincent MD ; [facility] Aricept 23 MG OR TABS 01/28/2013 - 05/07/2013 Provider : EILEEN VINCENT MD Diagnosis: PRESENILE HANNY IA Last Documented On 12/09/2022 5:29PM By Radha Vincent MD ; [facility] Latuda 20 MG OR TABS 01/28/2013 - 05/07/2013 Provider: EILEEN VINCENT MD Diagnosis: BIPOL I CUR DEPR ES NOS Last Documented On 12/09/2022 5:29PM By Radha Vincent MD ; [facility] Oleptro 150 MG OR TB24 01/28/2013 - 05/07/2013 Provider: EILEEN CONNORS MD Diagnosis: GENERALIZED ANXI ETY DIS Last Documented On 12/09/2022 5:29PM By Radha Vincent MD ; [facility] Atorvastatin Calcium 20 MG OR TABS 01/28/2013 - 2012 Provider: Diagnosis: Last Documented On 12/09/2022 5:29PM By TERRI CASH ; [facility] lamoTRIgine 200 MG OR TABS 01/28/2013 - 05/07/2013 Provider: EILEEN VINCENT MD Diagnosis: BIPOL I CUR DEPR ES NOS Last Documented On 12/09/2022 5:29PM By Radha Vincent MD ; [facility] lamoTRIgine 200 MG OR TABS 11/08/2012 - 01/28/2013 Provider: EILEEN VINCENT MD Diagnosis: BIPOL I CUR DEPR ES NOS Last Documented On 12/09/2022 5:29PM By Radha Vincent MD ; [facility] Namenda 10 MG OR TABS 11/08/2012 - 01/28/2013 Provider : EILEEN VINCENT MD Diagnosis: PRESENILE HANNY IA Last Documented On 12/09/2022 5:29PM By Radha Vincent MD ; [facility] Aricept 23 MG OR TABS 11/08/2012 - 01/28/2013 Provider : EILEEN VINCENT MD Diagnosis: PRESENILE HANNY IA Last Documented On 12/09/2022 5:29PM By Radha Vincent MD ; [facility] Oleptro 150 MG OR TB24 11/08/2012 - 01/28/2013 Provider: EILEEN CONNORS MD Diagnosis: GENERALIZED ANXI ETY DIS Last Documented On 12/09/2022 5:29PM By Radha Vincent MD ; [facility] Escitalopram Oxalate 20 MG OR TABS 11/08/2012 - 01/28/2013 Provider: EILEEN VINCENT MD Diagnosis: GENERALIZED ANXI ETY DIS Last Documented On 12/09/2022 5:29PM By Radha Vincent MD ; [facility] Latuda 20 MG OR TABS 11/08/2012 - 01/28/2013 Provider: EILEEN VINCENT MD Diagnosis: BIPOL I CUR DEPR ES NOS Last Documented On 12/09/2022 5:29PM By Radha Vincent MD ; [facility] Oleptro 150 MG OR TB24 09/04/2012 - 11/08/2012 Provider: EILEEN CONNORS MD Diagnosis: GENERALIZED ANXI ETY DIS Last Documented On 12/09/2022 5:29PM By Radha Vincent MD ; [facility] Wellbutrin XL 150 MG OR TB24 09/04/2012 - 01/28/2013 Provider: EILEEN VINCENT MD Diagnosis: BIPOL I CURR DEP W/O PSY 1 tablet every morning Last Documented On 12/09/2022 5:29PM By Radha Vincent MD ; [facility] lamoTRIgine 200 MG OR TABS 09/04/2012 - 11/08/2012 Provider: EILEEN VINCENT MD Diagnosis: BIPOL I CURR DEP W/O PSY Last Documented On 12/09/2022 5:29PM By Radha Vincent MD ; [facility] Namenda 10 MG OR TABS 09/04/2012 - 11/08/2012 Provider : EILEEN VINCENT MD Diagnosis: PRESENILE HANNY IA Last Documented On 12/09/2022 5:29PM By Radha Vincent MD ; [facility] Aricept 23 MG OR TABS 09/04/2012 - 11/08/2012 Provider : EILEEN VINCENT MD Diagnosis: PRESENILE HANNY IA Last Documented On 12/09/2022 5:29PM By Radha Vincent MD ; [facility] Latuda 20 MG OR TABS 09/04/2012 - 11/08/2012 Provider: EILEEN VINCENT MD Diagnosis: BIPOL I CURR DEP W/O PSY Last Documented On 12/09/2022 5:29PM By Radha Vincent MD ; [facility] Escitalopram Oxalate 20 MG OR TABS 09/04/2012 - 11/08/2012 Provider: EILEEN VINCENT MD Diagnosis: GENERALIZED ANXI ETY DIS Last Documented On 12/09/2022 5:29PM By Radha Vincent MD ; [facility] lamoTRIgine 200 MG OR TABS 08/07/2012 - 09/04/2012 Provider: EILEEN VINCENT MD Diagnosis: BIPOL I CURR DEP W/O PSY Last Documented On 12/09/2022 5:29PM By Radha Vincent MD ; [facility] Wellbutrin XL 150 MG OR TB24 08/07/2012 - 09/04/2012 Provider: EILEEN VINCENT MD Diagnosis: BIPOL I CURR DEP W/O PSY 1 tablet every morning Last Documented On 12/09/2022 5:29PM By Radha Vincent MD ; [facility] Latuda 20 MG OR TABS 08/07/2012 - 09/04/2012 Provider: EILEEN VINCENT MD Diagnosis: BIPOL I CURR DEP W/O PSY Last Documented On 12/09/2022 5:29PM By Radha Vincent MD ; [facility] Escitalopram Oxalate 20 MG OR TABS 08/07/2012 - 09/04/2012 Provider: EILEEN VINCENT MD Diagnosis: GENERALIZED ANXI ETY DIS Last Documented On 12/09/2022 5:29PM By Radha Vincent MD ; [facility] Oleptro 150 MG OR TB24 08/07/2012 - 09/04/2012 Provider: EILEEN CONNORS MD Diagnosis: GENERALIZED ANXI ETY DIS Last Documented On 12/09/2022 5:29PM By Radha Vincent MD ; [facility] Namenda 10 MG OR TABS 08/07/2012 - 09/04/2012 Provider : EILEEN VINCENT MD Diagnosis: PRESENILE HANNY IA Last Documented On 12/09/2022 5:29PM By Radha Vincent MD ; [facility] Aricept 23 MG OR TABS 08/07/2012 - 09/04/2012 Provider : EILEEN VINCENT MD Diagnosis: PRESENILE HANNY IA Last Documented On 12/09/2022 5:29PM By Radha Vincent MD ; [facility] Aricept 23 MG OR TABS 08/02/2012 - 08/07/2012 Provider : Diagnosis: Last Documented On 12/09/2022 5:29PM By KIRA OSUNA ; [facility] Latuda 20 MG OR TABS 08/02/2012 - 08/07/2012 Provider: Diagnosis: Last Documented On 12/09/2022 5:29PM By KIRA OSUNA ; [facility] Calcium 600/Vitamin D 600-400 MG-UNIT OR TABS 08/02/20 - 11/10/2015 Provider: Diagnosis: 2 tablets daily Last Documented On 12/09/2022 5:29PM By KIRA OSUNA ; [facility] Namenda 10 MG OR TABS 08/02/2012 - 08/07/2012 Provider : Diagnosis: Last Documented On 12/09/2022 5:29PM By KIRA OSUNA ; [facility] Aspirin 81 MG OR CHEW 08/02/2012 - 01/28/2013 Provider : Diagnosis: Last Documented On 12/09/2022 5:29PM By KIRA OSUNA ; [facility] Oleptro 150 MG OR TB24 08/02/2012 - 08/07/2012 Provide r: Diagnosis: Last Documented On 12/09/2022 5:29PM By KIRA OSUNA ; [facility] lamoTRIgine 200 MG OR TABS 08/02/2012 - 08/07/2012 Pro vider: Diagnosis: Last Documented On 12/09/2022 5:29PM By KIRA OSUNA ; [facility] buPROPion HCl ER (SR) 150 MG OR TB12 08/02/2012 - 07/14 Provider: Diagnosis: every morning Last Documented On 12/09/2022 5:29PM By KIRA OSUNA ; [facility] Escitalopram Oxalate 20 MG OR TABS 08/02/2012 - 2011 Provider: Diagnosis: Last Documented On 12/09/2022 5:29PM By KIRA OSUNA ; [facility] amLODIPine Besy-Benazepril HCl 5-10 MG OR CAPS 1 10/03/2011 - 11/10/2015 Provider: Diagnosis: Last Documented On 12/09/2022 5:29PM By KIRA OSUNA ; [facility] Omeprazole 20 MG OR TBEC 08/02/2012 - 11/10/2015 Provi itz: Diagnosis: Last Documented On 12/09/2022 5:29PM By KIRA OSUNA ; [facility] Levothyroxine Sodium 88 MCG OR TABS 08/02/2012 - 05/07 Provider: Diagnosis: Last Documented On 12/09/2022 5:29PM By KIRA OSUNA ; [facility] Furosemide 20 MG OR TABS 08/02/2012 - 02/09/2014 Provi itz: Diagnosis: take 1 tab once daily prn for edema Last Documented On 12/09/2022 5:29PM By KIRA OSUNA ; [facility] Diclofenac Sodium 75 MG OR TBEC 08/02/2012 - 3 Provider: Diagnosis: take one tablet twice a day Last Documented On 12/09/2022 5:29PM By KIRA OSUNA ; [facility] Metoprolol Tartrate 25 MG OR TABS 08/02/2012 - 016 Provider: Diagnosis: take one-half tablet 2 times a day Last Documented On 12/09/2022 5:29PM By KIRA OSUNA ; [facility] Atorvastatin Calcium 10 MG OR TABS 08/02/2012 - 2012 Provider: Diagnosis: Last Documented On 12/09/2022 5:29PM By KIRA OSUNA ; [facility] Medications Administered Includes: Administered Medications in patient's chart No Administered Medications Recorded Vital Signs Includes: Vital Signs from 10/06/2023 through 10/06/2024 Vital Name 12/19/2023 11:41A Blood Pressure Sitting L 130/80 BP Cuff Size Regular Pulse Rate-Sitting (bpm) 93 Pulse Rhythm Regular Height (in) 63 Weight (lb) 160 Body Mass Index 28.3 Body Surface Area 1.8 Note: self reported vitals Last Documented: On 12/19/2023 11:42A M ; [facility] Results Includes: Results from 10/06/2023 through 10/06/2024 No Results Recorded For Specified Dates History of Present Illness History of Present Illness not supported for this document type No History of Present Illness Recorded Social History Description Last Updated Tobacco non-user - Never smoker 12/19/19 24 Last Documented On 4 4:37AM ; [facility] Smoking Status Unknown Procedures and Surgical History Includes: Procedures from 10/06/2023 through 10/06/2024 Procedures Code Diagnosis Performing Provider Service Location Service Date PSYCHOTHERAPY 30 MIN W/ [place] [address] Bipolar disorder, unspecified, Generalized anxiety disorder, Attention-deficit hyperactivity disorder, other type, Restless legs syndrome EILEEN VINCENT MD [facility] 12/19/2023 Last Documented On 4 5:27PM ; [facility] Medical History Includes: Medical History in [...] Documented On 9 1:33PM ; [facility]HS Sulfa Antibiotics Allergy 08/02/2012 A ctive Last Documented On 4 11:08AM ; [facility] Note: Imported from external source. Neupro Allergy rash 10/23/2013 Active Last Documented On 11:08AM ; [facility] Note: Imported from external source. Encounters Includes: Encounters from 10/06/2023 through 10/06/2024 Encounter Provider Location Date Check-In Time Check-Out Time Diagnosis TELEHEALTH ADULT PSYCH ESTABLISHED EILEEN VINCENT MD [facility] 024 11:02AM 07/03/2012 11:59PM Generalized Anxiety Disorder,Nonorga deonte Sleep Apnea,Restless Legs Syndrome,Dementi a,Psychophysiolo gical Insomnia,Bipolar I Disorder,Adult Attention Deficit Hyperactivity Disorder,Mild Cognitive Impairment,Depre ssive Disorder, Nos * PHONE CALL EILEEN VINCENT MD [facility] 024 06/29/2023 3:59PM 07/03/2012 11:59PM Dementia * PHONE CALL EILEEN VINCENT MD [facility] 024 06/29/2023 4:10PM 07/03/2012 11:59PM * PHONE CALL EILEEN VINCENT MD [facility]-Y 024 06/29/2023 11:43AM 07/03/2012 11:59PM Adult Attention Deficit Hyperactivity Disorder * PHONE CALL EILEEN VINCENT MD [facility]-Y 024 06/29/2023 2:36PM 07/03/2012 11:59PM Insurance Includes: Active Insurance Policies Plan Name Member ID Group # Subscriber Relationship Effect kofi Dates 1 - [facility] [employer] SLIDELL [id number] LANA DARBY Self 2 - [facility] [id number] INGRID DARBY J 0 - Unknown Clinical Notes Includes: Signed Clinical Notes starting from 09/01/2022 * Progress note Date Encounter Last Documented by 12/19/2023 TELEHEALTH ADULT PSYCH ESTABLISH ED Last documented on 12/24/2023; 4:37 AM, EILEEN VINCENT MD; [facility] Top of Document Medication psychotherapy 30 [...] twice. I recommended that she sees her printing machine operator because of her IBS and the diarrhea [...] Primary Care Provider: Dr. Emmett Mcgarry -- Oven Heater Dr. Naveed Lala, DPM -- Nuclear Worker Technician Dr. Kirti Springer -- Logistics Vice President Dr. Keanu Mitchell, DMD -- Dentist Dr. Joshua Hanson, OD -- Sports Doctor Diagnoses: Area of concern on right breast [...] [facility] under Dr. Culter. She was wearing a dental device purchased from [employer] [facility]. Patient does not wear her dental device. She is getting it refitted 10/2022. It does not help. She uses O2 at 2 liter as needed. Esophageal reflux Irritable bowel syndrome. Hyperlipidemia Iron deficiency - started on Ferrous Sulfate 325 [address] Dion Kidd in 01/2019. Hypothyroidism. Tinea pedis. Fracture of the nasal bones - given Hydrocodone 325 from injuries sustained from fall at her son's [employer] 08/28/22 Sprain of the left foot Hammer [...] PREVIOUS PSYCHIATRIC HOSPITALIZATION: She was hospitalized at [facility] in 2008 due to depression; she said that she was suicidal then. She was also hospitalized at [facility] at least twice from [id number]. She said again she could not remember the dates. PREVIOUS PSYCHIATRIC TREATMENT: She was under the care of Dr. Arciniega in [place]. 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 Marital: Marital history --. She was born in [place], [place]. She was raised in [place], [place] and [place], [place]. She was close to her parents while growing up and they were supportive of her. 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 She denied [...] Clinical summary provided to patient. * Call [phone] and /or go to the nearest emergency [...] on 12/12/2023; 5:57 PM, EILEEN VINCENT MD; [facility] Active Problems & Conditions [...] Namzaric. pt phone # for return call: [phone] date/initials: 12/12/23 bk Current Medication - Alendronate [...] PREVIOUS PSYCHIATRIC HOSPITALIZATION: She was hospitalized at [facility] in 2008 due to depression; she said that she was suicidal then. She was also hospitalized at [facility] at least twice from [id number]. She said again she could not remember the dates. PREVIOUS PSYCHIATRIC TREATMENT: She was under the care of Dr. Arciniega in [place]. PREVIOUS PSYCHIATRIC MEDICATIONS: Lexapro 20mg once a [...] 11/08/2023; 5:55 PM, EILEEN VINCENT MD; [facility] Active Problems & Conditions [...] Namzaric? pt phone # for return call: [phone] Date/Initials: 11/08/23 db. Current Medication - Alendronate [...] - Other PHY ORDER/COMMENT I called Lana Servin x - no response so I left [...] on 10/31/2023; 11:49 AM, EILEEN VINCENT MD; [facility] Active Problems & Conditions [...] refill of Mydayis to be sent to [facility]. pt phone # for return call: [phone] date/initials: 10/31/2023 bk Current Medication - Alendronate [...] PREVIOUS PSYCHIATRIC HOSPITALIZATION: She was hospitalized at [facility] in 2008 due to depression; she said that she was suicidal then. She was also hospitalized at [facility] at least twice from [id number]. She said again she could not remember the dates. PREVIOUS PSYCHIATRIC TREATMENT: She was under the care of Dr. Arciniega in [place]. PREVIOUS PSYCHIATRIC MEDICATIONS: Lexapro 20mg once a [...] 8:51 AM, EILEEN VINCENT MD; [facility] Active Problems & Conditions [...] place. pt phone # for return call: [phone] date/initials: 10/18/23 bk Current Medication - Alendronate [...] PREVIOUS PSYCHIATRIC HOSPITALIZATION: She was hospitalized at [facility] in 2008 due to depression; she said that she was suicidal then. She was also hospitalized at [facility] at least twice from [id number]. She said again she could not remember the dates. PREVIOUS PSYCHIATRIC TREATMENT: She was under the care of Dr. Arciniega in [place]. PREVIOUS PSYCHIATRIC MEDICATIONS: Lexapro 20mg once a [...]
--- OUTSIDE RECORDS SUMMARY | 2024-10-06 15:39 | XMS_ITS | Clinical Summary ---
Author Organization [facility] Address [address] [place] [address] Phone Care Team Providers Care Mobility Developer Name Role Phone RHIANNON DAI, EILEEN JJ [...] Active Last Documented On 3 5:51PM ; [facility] Adult Attention Deficit Hyperactivity Disorder 01/16/2017 Active Last Documented On 3 5:50PM ; [facility] Psychophysiological Insomnia 09/27/2016 Active Last Documented On 3 5:50PM ; [facility] Bipolar I Disorder 03/13/2015 Active Last Documented On 3 5:48PM ; [facility] Dementia 02/10/2015 Active Last Documented On 3 5:48PM ; [facility] Generalized Anxiety Disorder 02/10/2015 Active Last Documented On 3 5:48PM ; [facility] Mild Cognitive Impairment 02/10/2015 EILEEN VINCENT MD Active Last Documented On 3 5:01PM ; [facility] Restless Legs Syndrome 07/28/2013 Ac tive Last Documented On 3 5:48PM ; [facility] Restless Legs Syndrome 07/28/2013 In active Last Documented On 3 5:46PM ; [facility] 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 EILEEN DE LA VEGA MD Active Last Documented On 3 5:01PM ; [facility] Past Visits Onset Date Resolved Date Provider Condition Status Hypothyroidism, unspecified 08/02/2012 Active Last Documented On 3 5:48PM ; [facility] Gastro-esophageal reflux disease without esophagitis 08/02 Active Last Documented On 3 5:48PM ; [facility] Fracture of Nasal Bones 08/02/2012 A ctive Last Documented On 3 5:42PM ; [facility] Hyperlipidemia, unspecified 08/02/2012 Active Last Documented On 3 5:48PM ; [facility] Essential (primary) hypertension 08/02/2012 Active Last Documented On 3 5:48PM ; [facility] Irritable bowel syndrome without diarrhea 08/02/2012 Active Last Documented On 3 5:48PM ; [facility] Plan of Treatment Bipolar Depression [...] - Last Documented On 12/24/2023 4:37AM ; [facility] Future Appointments Date Time Location Provi itz TELEHEALTH ADULT PSYCH ESTABLISHED 12/24/2024 11:00AM [facility] VINCENT MD Last Documented On 5 4:04PM ; [facility] Education and Decision Aids were provided during visit for: Patient counseling I discuss ed risk, benefits, and side effects of sleep aid - Belsomra - including the possibility of sleep related behaviors i.e. sleepwalking, sleeptalking, sleepdriving, etc... Pt verbalized understanding Last Documented On 4 11:46AM ; [facility] I recommended cognitive exer cises such as reading and/or word search puzzles, etc.. Last Documented On 4 11:46AM ; [facility] Calming techniques such as b reathing exercises/meditation and other relaxation techniques Last Documented On 4 4:34AM ; [facility] Assessments Includes: Assessments from this encounter Findings - Nonorganic sleep apnea - Last Documented On 12/24/2023 4:37AM ; [facility] - Dementia - Last Documented On 12/24/2023 4:37AM ; [facility] - Mild Cognitive Impairment - Last Documented On 12/24/2023 4:37AM ; [facility] - Restless legs syndrome - Last Documented On 12/24/2023 4:37AM ; [facility] - Bipolar I disorder - Last Documented On 12/24/2023 4:37AM ; [facility] - Depressive disorder - Last Documented On 12/24/2023 4:37AM ; [facility] - Psychophysiological insomnia - Last Documented On 12/24/2023 4:37AM ; [facility] - Generalized anxiety disorder - Last Documented On 12/24/2023 4:37AM ; [facility] - Adult attention deficit hyperactivity disorder - Last Documented On 12/24/2023 4:37AM ; [facility] Instructions Includes: Instructions from this encounter Education and Decision Aids were provided during visit for: Patient counseling I discuss ed risk, benefits, and side effects of sleep aid - Belsomra - including the possibility of sleep related behaviors i.e. sleepwalking, sleeptalking, sleepdriving, etc... Pt verbalized understanding Last Documented On 4 11:46AM ; [facility] I recommended cognitive exer cises such as reading and/or word search puzzles, etc.. Last Documented On 4 11:46AM ; [facility] Calming techniques such as b reathing exercises/meditation and other relaxation techniques Last Documented On 4 4:34AM ; [facility] Medical Equipment - Implanted Devices Includes: Current Devices No Medical Equipment Recorded Medications Includes: Medications discussed during this encounter and other current Medications Discontinued / Stopped on this date EILEEN VINCENT MD on 10/18/2023 Focalin 10 MG Oral Tablet Provider: EILEEN VINCENT MD Diagnosis: Attention-defici t hyperactivity disorder, combined type Last Documented On 12/19/2023 11:48AM By Radha Vincent MD ; [facility] New / Renewed during this visit EILEEN VINCENT MD on 12/19/2023 rOPINIRole HCl 2 MG Oral Tablet Provider: EILEEN VINCENT MD 30 day supply: 30 tablet, 5 refills Diagnosis: Restless legs syndrome as directed 1 tablet at 5 pm in the evening for restless legs Pharmacy: [address] Last Documented On 12/19/2023 11:49AM By Radha Vincent MD ; [facility] Current Medications (continue as prescribed) busPIRone HCl 15 MG Oral Tablet 01/16/2024 Provider: EILEEN VINCENT MD Diagnosis: TAKE ONE TABLET BY MOUTH THREE TIMES a DAY Last Documented On 01/16/2024 10:52AM By Radha Vincent MD ; [facility] Mydayis 37.5 MG Oral Capsule Extended Release 24 Hour 01/01/2024 Provider: EILEEN VINCENT MD Diagnosis: Attention-defici t hyperactivity disorder, combined type TAKE ONE (1) CAPSULE BY MOUT H EACH MORNING Last Documented On 01/01/2024 5:57PM By Radha Vincent MD ; [facility] Memantine HCl 5 MG Oral Tablet 12/12/2023 Provider: EILEEN VINCENT MD Diagnosis: Dem in oth dis c lassd elswhr,unsp sev,w/o beh/psych/mood/anx One tablet daily Last Documented On 12/12/2023 4:50PM By Radha Vincent MD ; [facility] rOPINIRole HCl 2 MG Oral Tablet 12/10/2023 Provider: VENTURA GERARDO Diagnosis: Last Documented On 12/19/2023 11:45AM By Radha Vincent MD ; [facility] Namzaric 28-10 MG Oral Capsule Extended Release 24 Hour 11/26/2023 Provider: EILEEN VINCENT MD Diagnosis: Dem in oth dis c lassd elswhr,unsp sev,w/o beh/psych/mood/anx TAKE ONE CAPSULE BY MOUTH EV HELLEN MORNING Last Documented On 11/26/2023 1:10PM By Rdaha Vincent MD ; [facility] Trintellix 10 MG Oral Tablet 11/13/2023 Provider: EILEEN VINCENT MD Diagnosis: Major depressive disorder, single episode, unspecified TAKE ONE (1) TABLET BY MOUTH DAILY Last Documented On 11/13/2023 10:08AM By Radha Vincent MD ; [facility] Belsomra 10 MG Oral Tablet 11/01/2023 Provider: EILEEN VINCENT MD Diagnosis: Psychophysiologi c insomnia DIRECTED 1 TABLET AT BEDT ELEAZAR NEEDED FOR SLEEP Last Documented On 11/01/2023 4:16PM By Radha Vincent MD ; [facility] buPROPion HCl ER (XL) 300 MG Oral Tablet Extended Release 24 Hour 08/24/2023 Provider: EILEEN VINCENT MD Diagnosis: Major depressive disorder, single episode, unspecified 1 tablet every morning Last Documented On 08/24/2023 10:15AM By Radha Vincent MD ; [facility] lamoTRIgine 150 MG Oral Tablet 08/24/2023 Provider: EILEEN VINCENT MD Diagnosis: TAKE ONE TABLET BY MOUTH TWO TIMES A DAY Last Documented On 08/24/2023 10:26AM By Radha Vincent MD ; [facility] Escitalopram Oxalate 20 MG Oral Tablet 08/24/2023 Provider: EILEEN VINCENT MD Diagnosis: Generalized anxi ety disorder TAKE ONE TABLET BY MOUTH DAILY Last Documented On 08/24/2023 10:16AM By Radha Vincent MD ; [facility] Ferrous Sulfate 325 (65 Fe) MG Oral Tablet 04/18/2023 Provider: Diagnosis: 1 tab every other day Last Documented On 04/18/2023 10:30AM By WISAM CASH ; [facility] Belsomra 10 MG Oral Tablet 03/19/2023 Provider: Diagnosis: Psychophysiologi c insomnia 1 tablet at bedtime as needed for sleep Last Documented On 03/19/2023 2:13PM By LETI WILSON ; [facility] Belsomra 10 MG OR TABS 09/27/2022 Provider: CISCO VINCENT MD Diagnosis: Psychophysiologi c insomnia DIRECTED - ONE (1) TAB AT BEDTIME NEEDED FOR SLEEP Last Documented On 12/09/2022 5:29PM By Radha Vincent MD ; [facility] Alendronate Sodium 70 MG OR TABS 06/19/2022 Provider : Diagnosis: 1 tab weekly Last Documented On 12/09/2022 5:29PM By WISAM CASH ; [facility] Levothyroxine Sodium 100 MCG OR CAPS 04/14/2020 Prov ider: Diagnosis: 1 tab daily Last Documented On 12/09/2022 5:29PM By WISAM CASH ; [facility] Pantoprazole Sodium 40 MG OR TBEC 11/15/2019 Provide r: Diagnosis: 1 tab daily Last Documented On 12/09/2022 5:29PM By WISAM CASH ; [facility] Azelastine HCl 0.15% NA SOLN 08/21/2019 Provider: Diagnosis: 2 sprays in each nostril twice a day Last Documented On 12/09/2022 5:29PM By WISAM CASH ; [facility] Fluticasone Propionate 50 MCG/ACT NA SUSP 07/25/2018 Provider: Diagnosis: 2 sprays in each nostril daily Last Documented On 12/09/2022 5:29PM By WISAM CASH ; [facility] amLODIPine Besy-Benazepril HCl 5-10 MG OR CAPS 016 Provider: Diagnosis: 1 daily Last Documented On 12/09/2022 5:29PM By WILMER REDDY LPN ; [facility] Lipitor 20 MG OR TABS 11/10/2015 Provider: Diagnosis: 1 tablet every evening Last Documented On 12/09/2022 5:29PM By WILMER REDDY LPN ; [facility] Lasix 20 MG OR TABS 11/10/2015 Provider: Diagnosis: 1 tablet every morning Last Documented On 12/09/2022 5:29PM By WILMER REDDY LPN ; [facility] Aspirin 81 MG OR TABS 11/10/2015 Provider: Diagnosis: 1 tablet daily Last Documented On 12/09/2022 5:29PM By WILMER REDDY LPN ; [facility] Past Medications on file Dicyclomine HCl 10 MG Oral Capsule 09/14/2023 - 2023 Provider: Diagnosis: 1 capsule bid Last Documented On 09/14/2023 11:16AM By WISAM CASH ; [facility] hydrOXYzine HCl 25 MG Oral Tablet 04/09/2023 - 06/08/2023 Provider: EILEEN CONNORS MD Diagnosis: 1 TAB a DAY NEEDED ONLY FOR ITCHING/ANXIETY Last Documented On 04/09/2023 12:08PM By Radha Vincent MD ; [facility] hydrOXYzine HCl 25 MG OR TABS 10/08/2020 - 11/07/2020 Provider: EILEEN VINCENT MD Diagnosis: Generalized anxi ety disorder as directed - 1 tab a day as needed for agitation/anxiety Last Documented On 12/09/2022 5:29PM By Radha Vincent MD ; [facility] LaMICtal 150 MG OR TABS 09/24/2018 - 09/27/2018 Provider: EILEEN VINCENT MD Diagnosis: Bipolar disorder , unspecified One tablet twice a day Last Documented On 12/09/2022 5:29PM By Radha Vincent MD ; [facility] Atorvastatin Calcium 20 MG OR TABS 01/28/2013 - 2012 Provider: Diagnosis: Last Documented On 12/09/2022 5:29PM By TERRI CASH ; [facility] Medications Administered Includes: Administered Medications [...] Documented: On 12/19/2023 11:42A M ; [facility] Results Includes: Results discussed during this encounter [...] twice. 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 She was raised in [place], [place] and [place], [place]. She was close to her parents while growing up and they were supportive of her. 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 She denied any history of verbal,physical or sexual abuse. 12/19/2023 Last Documented On 05/08/202 4 11:02AM ; [facility] Tobacco non-user - Never smoker 12/19/19 24 Last Documented On 4 4:37AM ; [facility] Smoking Status Unknown Procedures and Surgical History Includes: Procedures from this encounter Procedures Code Diagnosis Performing Provider Service Location Service Date PSYCHOTHERAPY 30 MIN W/ [place] [address] Bipolar disorder, unspecified, Generalized anxiety disorder, Attention-deficit hyperactivity disorder, other type, Restless legs syndrome EILEEN VINCENT MD [facility] 12/19/2023 Last Documented On 4 5:27PM ; [facility] patient counseling I discuss ed risk, benefits, and side effects of sleep aid - Belsomra - including the possibility of sleep related behaviors i.e. sleepwalking, sleeptalking, sleepdriving, etc... Pt verbalized understanding Last Documented On 4 11:46AM ; [facility] education and instructions Last Documented On 4 11:02AM ; [facility] supportive care and encourag ement--given positive reinforcement to keep patient motivated and active Last Documented On 4 11:46AM ; [facility] ~* Call [phone] and /or go t o the nearest emergency room or call me if suicidal/homicidal ideation or other serious concerns arise. ~ ~* I gave instructions to call me should there be any questions or concerns. ~ ~* Patient voiced understanding and agreed to treatment plan Last Documented On 4 11:40AM ; [facility] dangerousness assessment: no suicide risk 3085F Last Documented On 4 11:02AM ; [facility] use of tobacco assessment performed 1000F Last Documented On 4 11:02AM ; [facility] patient screened for future fall risk: documentation of any fall with injury in past year - no recent falls 1100F Last Documented On 4 11:40AM ; [facility] review of medications documented 1160F Last Documented On 4 11:02AM ; [facility] assessment of suicide risk performed - n ot suicidal Last Documented On 4 11:40AM ; [facility] screening for adult depressi on: impression and score - please see above for treatment and PHQ score Last Documented On 4 11:02AM ; [facility] standardized depression screening: posit kofi for symptoms Last Documented On 4 11:02AM ; [facility] encouragement to exercise - balanced karime l plan, low fat low carb diet Last Documented On 4 4:34AM ; [facility] I recommended cognitive exer cises such as reading and/or word search puzzles, etc.. Last Documented On 4 11:46AM ; [facility] Clinical summary provided to patient Last Documented On 4 11:02AM ; [facility] PHQ-9: total score 0 Last Documented On 4 4:34AM ; [facility] Medical History Includes: Medical History addressed during this encounter Description Last Updated Primary Care Provider: Dr. Angela Mcgarry -- Help Desk Associate Dr. Naveed Lala, DPM -- Extended Day Teacher Dr. Kirti Springer -- Event Representative Dr. Keanu Mitchell, DMD -- Dentist Dr. [...] apnea -- sleep study done 05/22/13 at [facility] under Dr. Cutler. She was wearing a dental device purchased from [facility] dent[facility]. Patient does not wear her [...] injuries sustained from fall at her son's [employer] business 08/28/22Sprain of the left footHammer toe - 2nd toe of left foot straightened by Dr. Hiro Arthur 11/05/20 -- given Keflex 500 mg. Head injury /brain trauma. Vaginal candidiasis - given Flagyl 500 mg 11/06/20Fractured Humerus -- 11/10/22 - had to have plate and screws placed and doing physical therapyDiagnoses: Fall risk -- pt has had 3 [...] her nose, eyes and sustained some bruisingProcedural: Coronavirus 2019-nCoV vaccine - [place] #1 11/02/20 #2 03/23/21 -- as of 07/29/21 no booster yet Colonoscopy - 11/2020 Epidural Steroid Injection -- 03/08/[address] Yi for back painSurgical: Corneal transplant - left corneal transplant 04/2018 Cholecystectomy Hysterectomy Tubal ligation Hallux valgus (bunion) correction -- 08/01/17 and 12/14/23 of the left foot -- 2nd toe, 3rd toe and 5th toe Excision left foot bunion-- 2011Surgery of arm due to fractured Humerus 11/10/2022 - had plate and screws placed 12/19/2023 Last Documented On 4 11:48AM ; [facility] Family History Includes: Family History addressed during this encounter Description Last Updated Paternal: Depression -- fath er Anxiety disorder NOS -- fatherMaternal: Depression -- mother Anxiety disorder NOS -- motherSororal: Depression -- sister 12/19/2023 Last Documented On 4 11:02AM ; [facility] Review of Systems Includes: Review [...] esolved Last Documented On 9 1:33PM ; [facility] MHS Sulfa Antibiotics Allergy 08/02/2012 A ctive Last Documented On 4 11:08AM ; [facility] Note: Imported from external source. Neupro Allergy rash 10/23/2013 Active Last Documented On 4 11:08AM ; [facility] Note: Imported from external source. Encounters Encounter Provider Location Date Check-In Time Check-Out Time Diagnosis TELEHEALTH ADULT PSYCH ESTABLISHED EILEEN VINCENT MD [facility] 024 11:02AM 11:59PM Generalized Anxiety Disorder,Nonorga deonte Sleep Apnea,Restless Legs Syndrome,Dementi a,Psychophysiolo gical Insomnia,Bipolar I Disorder,Adult Attention Deficit Hyperactivity Disorder,Mild Cognitive Impairment,Depre ssive Disorder, Nos Insurance Includes: Active Insurance Policies Plan Name Member ID Group # Subscriber Relationship Effect kofi Dates 1 - [email or web address] [id number] EDITH DARBY Self 2 - [facility] [id number] INGRID DARBY J 0 - Unknown Clinical Notes Includes: Clinical Notes from this encounter * Progress note Date Encounter Last Documented by 12/19/2023 TELEHEALTH ADULT PSYCH ESTABLISH ED Last documented on 12/24/2023; 4:37 AM, EILEEN VINCENT MD; [facility] Top of Document Medication psychotherapy [...] twice. I recommended that she sees her on car supervisor because of her IBS and the diarrhea [...] Primary Care Provider: Dr. Emmett Mcgarry -- Help Desk Associate Dr. Naveed Lala, DPM -- Extended Day Teacher Dr. Kirti Springer -- Event Representative Dr. Keanu Mitchell, DMD -- Dentist Dr. Joshua Hanson, OD -- [employer] Diagnoses: Area of concern on right breast 12/2023 Hearing loss - wears bilateral hearing aids. Systemic hypertension. Bronchitis - given Zpak 250 mg and Albuterol HFA 90 mcg inhaler on 02/23/22 and given Methylprednisolone Dosepak 4 mg on 02/18/22 Bronchitis - given Albuterol HFA 90 mcg and Tessalon Perles 100 mg 09/03/22 Obstructive sleep apnea -- sleep study done 05/22/13 at [facility] under Dr. Cutler. She was wearing a dental device purchased from [facility] dentistry. Patient does not wear her dental [...] injuries sustained from fall at her son's [employer] 08/28/22 Sprain of the left foot Hammer [...] and sustained some bruising Procedural: - Coronavirus 2018-nCoV vaccine - Pfizer #1 11/02/20 #2 03/23/21 [...] PREVIOUS PSYCHIATRIC HOSPITALIZATION: She was hospitalized at [facility] in 2008 due to depression; she said that she was suicidal then. She was also hospitalized at [place] at least twice from [id number]. She said again she could not remember the dates. PREVIOUS PSYCHIATRIC TREATMENT: She was under the care of Dr. Arciniega in [place]. 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 Marital: Marital history --. She was born in [place], [place]. She was raised in [place], [place] and [place], [place]. She was close to her parents while growing up and they were supportive of her. 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 She denied [...] Clinical summary provided to patient. * Call [phone] and /or go to the nearest emergency [...]
--- OUTSIDE RECORDS SUMMARY | 2024-10-06 15:39 | XMS_ITS | Clinical Summary ---
Author Organization [facility] Address [address] [place] [address] Phone Care Team Providers Care Boatbuilder Supervisor Name Role Phone RHIANNON DAI, EILEEN [...] Active Last Documented On 8 6:05AM ; [facility] Adult Attention Deficit Hype ractivity Disorder 01/16/2017 EILEEN VINCENT MD Active Last Documented On 7 11:10AM ; [facility] Psychophysiological Insomnia 09/27/2016 EILEEN VINCENT MD Active Last Documented On 7 10:35AM ; [facility] Bipolar I Disorder 03/13/2015 EILEEN BREEN MD Active Last Documented On 5 10:21AM ; [facility] Dementia 02/10/2015 EILEEN VINCENT MD Ac tive Last Documented On 5 10:58AM ; [facility] Generalized Anxiety Disorder 02/10/2015 EILEEN VINCENT MD Active Last Documented On 5 10:22AM ; [facility] Restless Legs Syndrome 07/28/2013 EILEEN DE LA VEGA MD Inactive Last Documented On 5 10:42AM ; [facility] 07/28/2013 EILEEN DE LA VEGA MD Active Last Documented On 1 11:20AM ; [facility] Past Visits Onset Date [...] Active Last Documented On 5 10:49AM ; [facility] Gastro-esophageal reflux dis ease without esophagitis 08/02/2012 EILEEN VINCENT MD Active Last Documented On 5 10:37AM ; [facility] Fracture of Nasal Bones 08/02/2012 EILEEN VINCENT MD Active Last Documented On 2 11:16AM ; [facility] Hyperlipidemia, unspecified 08/02/2012 EILEEN VINCENT MD Active Last Documented On 5 10:38AM ; [facility] Essential (primary) hypertension 08/02/2012 MET LEONIDES VINCENT MD Active Last Documented On 5 10:38AM ; [facility] Irritable bowel syndrome without diarrhea 08/02/2012 EILEEN VINCENT MD Active Last Documented On 5 10:50AM ; [facility] Plan of Treatment Bipolar Depression - [...] - Last Documented On 10/30/2022 1:02AM ; [facility] Education and Decision Aids were provided during visit for: Patient counseling I discuss ed risk, benefits, and side effects of sleep aid - Belsomra - including the possibility of sleep related behaviors i.e. sleepwalking, sleeptalking, sleepdriving, etc... Pt verbalized understanding. So far, pt denied sleep related behaviors Last Documented On 3 12:52AM ; [facility] Discussed good sleep hygiene habits Last Documented On 3 11:27AM ; [facility] I recommended cognitive exer cises such as reading and/or word search puzzles, etc.. Last Documented On 3 11:51PM ; [facility] Assessments Includes: Assessments from this encounter Findings - Dementia - Last Documented On 10/30/2022 1:02AM ; [facility] - Restless legs syndrome - Last Documented On 10/30/2022 1:02AM ; [facility] - Bipolar I disorder - Last Documented On 10/30/2022 1:02AM ; [facility] - Depressive disorder - Last Documented On 10/30/2022 1:02AM ; [facility] - Psychophysiological insomnia - Last Documented On 10/30/2022 1:02AM ; [facility] - Generalized anxiety disorder - Last Documented On 10/30/2022 1:02AM ; [facility] - Adult attention deficit hyperactivity disorder - Last Documented On 10/30/2022 1:02AM ; [facility] Instructions Includes: Instructions from this encounter Education and Decision Aids were provided during visit for: Patient counseling I discuss ed risk, benefits, and side effects of sleep aid - Belsomra - including the possibility of sleep related behaviors i.e. sleepwalking, sleeptalking, sleepdriving, etc... Pt verbalized understanding. So far, pt denied sleep related behaviors Last Documented On 3 12:52AM ; [facility] Discussed good sleep hygiene habits Last Documented On 3 11:27AM ; [facility] I recommended cognitive exer cises such as reading and/or word search puzzles, etc.. Last Documented On 3 11:51PM ; [facility] Medical Equipment - Implanted [...] 3 10:52AM By WISAM JUAREZ Timo ; [facility] Quviviq 50 MG Oral Tablet Provider: EILEEN VINCENT MD Diagnosis: Psychophysiologi c insomnia Last Documented On 3 10:52AM By WISAM JUAREZ Timo ; [facility] hydrOXYzine HCl 25 MG Oral Tablet Provide r: EILEEN VINCENT MD Diagnosis: Last Documented On 10/17/2022 7:11PM By Radha Vincent MD ; [facility] lamoTRIgine 150 MG Oral Tablet Provider: EILEEN VINCENT MD Diagnosis: Bipolar disorder , unspecified Last Documented On 3 10:53AM By WISAM CASH ; [facility] busPIRone HCl 15 MG Oral Tablet Provider: EILEEN VINCENT MD Diagnosis: Generalized anxi ety disorder Last Documented On 3 10:53AM By WISAM JUAREZ Timo ; [facility] Current Medications (continue as prescribed) Mydayis 37.5 MG Oral Capsule Extended Release 24 Hour 12/07/2022 Provider: EILEEN VINCENT MD Diagnosis: Attention-defici t hyperactivity disorder, combined type 1 Capsule every morning Last Documented On 12/07/2022 4:33PM By Radha Vincent MD ; [facility] hydrOXYzine HCl 25 MG Oral Tablet 10/17/2022 Provide r: EILEEN VINCENT MD Diagnosis: 1 tab a day as needed only for itching/anxiety Last Documented On 10/17/2022 7:11PM By Radha Vincent MD ; [facility] Belsomra 10 MG Oral Tablet 09/27/2022 Provider: EILEEN VINCENT MD Diagnosis: Psychophysiologi c insomnia DIRECTED - ONE (1) TAB AT BEDTIME NEEDED FOR SLEEP Last Documented On 3 11:26AM By Radha Vincent MD ; [facility] Escitalopram Oxalate 20 MG Oral Tablet 09/25/2022 Provider: EILEEN VINCENT MD Diagnosis: Generalized anxi ety disorder TAKE ONE TABLET BY MOUTH DAILY Last Documented On 3 10:40AM By Radha Vincent MD ; [facility] lamoTRIgine 150 MG Oral Tablet 09/25/2022 Provider: EILEEN VINCENT MD Diagnosis: TAKE ONE TABLET BY MOUTH TWO TIMES A DAY Last Documented On 3 10:40AM By Radha Vincent MD ; [facility] rOPINIRole HCl 2 MG Oral Tablet 09/25/2022 Provider: EILEEN VINCENT MD Diagnosis: Restless legs sy ndrome DIRECTED - ONE (1) TAB AT FIVE (5) IN THE EVENING FOR RESTLESS LEGS Last Documented On 3 10:37AM By Radha Vincent MD ; [facility] buPROPion HCl ER (XL) 300 MG Oral Tablet Extended Release 24 Hour 07/03/2022 Provider: EILEEN VINCENT MD Diagnosis: Major depressive disorder, single episode, unspecified 1 tablet every morning Last Documented On 07/03/2022 1:56PM By Radha Vincent MD ; [facility] Alendronate Sodium 70 MG Oral Tablet 06/19/2022 Prov ider: WOLF MITCHELL MD Diagnosis: 1 tab weekly Last Documented On 2 11:54AM By WISAM CASH ; [facility] traZODone HCl 50 MG Oral Tablet 02/07/2022 Provider: EILEEN VINCENT MD Diagnosis: TAKE ONE (1) OR TWO (2) TABL ETS BY MOUTH AT BEDTIME NEEDED SLEEP Last Documented On 2 10:04AM By Radha Vincent MD ; [facility] Levothyroxine Sodium 100 MCG Oral Capsule 04/14/2020 Provider: GOLDIE KIDD MD Diagnosis: 1 tab daily Last Documented On 0 11:36AM By WISAM CASH ; [facility] Pantoprazole Sodium 40 MG Or al Tablet Delayed Release 11/15/2019 Provider: SIERRA MCGARRY Diagnosis: 1 tab daily Last Documented On 0 11:20AM By WISAM CASH ; [facility] Azelastine HCl 0.15% Nasal Solution 08/21/2019 Provi itz: GOLDIE KIDD MD Diagnosis: 2 sprays in each nostril twice a day Last Documented On 0 11:35AM By WISAM CASH ; [facility] Ferrous Sulfate 325 (65 Fe) MG Oral Tablet 04/10/2019 Provider: GOLDIE KIDD MD Diagnosis: 1 tab daily Last Documented On 04/10/2019 1:36PM By WISAM CASH ; [facility] Fluticasone Propionate 50MCG /ACT Nasal Suspension 07/25/2018 Provider: BETSY CARRIZALES MD Diagnosis: 2 sprays in each nostril daily Last Documented On 11/28/2018 3:50PM By WISAM CASH ; [facility] Medical [facility] Amlodipine Besy-Benazepril H Cl 5-10 MG Capsule, conventional 03/04/2016 Provider: BETSY CARRIZALES MD Diagnosis: 1 daily Last Documented On 6 9:55AM By WILMER REDDY LPN ; [facility] Lipitor 20 MG Tablet 11/10/2015 Provider: JEFFERSON CARRIZALES MD Diagnosis: 1 tablet every evening Last Documented On 6 10:25AM By WILMER REDDY LPN ; [facility] Dicyclomine HCl 10 MG Capsule, conventional 11/10/2015 Provider: BETSY CARRIZALES MD Diagnosis: 1 capsule daily Last Documented On 6 10:22AM By WILMER REDDY LPN ; [facility] Aspirin 81 MG Tablet 11/10/2015 Provider: JEFFERSON CARRIZALES MD Diagnosis: 1 tablet daily Last Documented On 6 10:23AM By WILMER REDDY LPN ; [facility] Medical [facility] Lasix 20 MG Tablet 11/10/2015 Provider: BETSY CARRIZALES MD Diagnosis: 1 tablet every morning Last Documented On 6 10:24AM By WILMER REDDY LPN ; [facility] Suspended Medications Trintellix 10 MG Oral Tablet 11/16/2022 Provider: EILEEN VINCENT MD Diagnosis: Major depressive disorder, single episode, unspecified TAKE ONE (1) TABLET BY MOUTH DAILY Last Documented On 3 12:52PM By Radha Vincent MD ; [facility] Namzaric 28-10 MG Oral Capsule Extended Release 24 Hour 10/17/2022 Provider: EILEEN VINCENT MD Diagnosis: Dem in oth dis c lassd elswhr,unsp sev,w/o beh/psych/mood/anx TAKE ONE CAPSULE BY MOUTH EV HELLEN MORNING Last Documented On 3 11:37AM By Radha Vincent MD ; [facility] busPIRone HCl 15 MG Oral Tablet 08/29/2022 Provider: EILEEN VINCENT MD Diagnosis: TAKE ONE TABLET BY MOUTH THREE TIMES a DAY Last Documented On 08/29/2022 3:43PM By Radha Vincent MD ; [facility] Past Medications on file hydrOXYzine HCl 25 MG Oral Tablet 10/08/2020 - 11/07/2020 Provider: EILEEN VINCENT MD Diagnosis: Generalized anxi ety disorder as directed - 1 tab a day as needed for agitation/anxiety Last Documented On 10/08/2020 2:47PM By Radha Vincent MD ; [facility] LaMICtal 150MG Oral Tablet 09/24/2018 - 09/27/2018 Provider: EILEEN VINCENT MD Diagnosis: Bipolar disorder , unspecified One tablet twice a day Last Documented On 09/24/2018 1:31PM By Radha Vincent MD ; [facility] Atorvastatin Calcium 20 MG OR TABS 01/28/2013 - 2012 Provider: Diagnosis: Last Documented On 3 3:46PM By TERRI CASH ; [facility] Medications Administered Includes: Administered [...] Last Documented: On 10/17/2022 11:28A M ; [facility] Results Includes: Results discussed [...] 08/21/2019 Last Documented On 3 10:50AM ; [facility] She was born in [place], [place]. She was raised in [place], [place] and [place], [place]. She was close to her parents while growing up and they were supportive of her. 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 11/08/2012 Last Documented On 3 10:50AM ; [facility] Not using alcohol 08/02/2012 Last Documented On 3 10:50AM ; [facility] Not using drugs (Illicit) 08/02/2012 Last Documented On 3 10:50AM ; [facility] Smoking status : Never smoked 08/02/2012 Last Documented On 3 10:50AM ; [facility] Procedures and Surgical History Includes: Procedures from this encounter Procedures Code Diagnosis Performing Provider Service L ocation Service Date education and instructions Last Documented On 3 10:50AM ; [facility] dangerousness assessment: suicide risk -not suic idal 3085F Last Documented On 3 10:50AM ; [facility] use of tobacco assessment performed 1000F Last Documented On 3 10:50AM ; [facility] patient screened for future fall risk - 15 3288F Last Documented On 3 11:27AM ; [facility] review of medications documented 1160F Last Documented On 3 10:50AM ; [facility] screening for adult depressi on: impression and score - please see above treatment and PHQ score Last Documented On 3 10:50AM ; [facility] standardized depression screening: posit kofi for symptoms Last Documented On 3 10:50AM ; [facility] encouragement to exercise Last Documented On 3 10:50AM ; [facility] Clinical summary provided to patient Last Documented On 3 10:50AM ; [facility] PHQ-9: total score 4 Last Documented On 3 10:30AM ; [facility] Surgical History Last Updated 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 04/201811/28/2018 Last Documented On 3 10:50AM ; [facility] History of hallux valgus (bunion) correc tion -- 08/01/17 09/07/2017 Last Documented On 3 10:50AM ; [facility] History of excision left foot bunion-- 2 012 01/28/2015 Last Documented On 3 10:50AM ; [facility] History of tubal ligation 01/28/2015 Last Documented On 3 10:50AM ; [facility] History of hysterectomy 01/28/2015 Last Documented On 3 10:50AM ; [facility] History of cholecystectomy 08/02/2012 Last Documented On 3 10:50AM ; [facility] Medical History Includes: Medical History addressed during this encounter Description Last Updated History of bronchitis - give n Albuterol HFA 90 mcg and Tessalon Perles 100 mg 09/03/22 10/17/2022 Last Documented On 3 1:02AM ; [facility] History of bronchitis - give n Zpak 250 mg and Albuterol HFA 90 mcg inhaler on 02/23/22 and given Methylprednisolone Dosepak 4 mg on 02/18/22 10/17/2022 Last Documented On 3 10:50AM ; [facility] History of fracture of the n juan f bones - given Hydrocodone 5/325 from injuries sustained from fall at her son's [employer] 08/28/22 10/17/2022 Last Documented On 3 1:02AM ; [facility] History of fall risk -- pt [...] 10/17/2022 Last Documented On 3 1:02AM ; [facility] History of obstructive sleep apnea -- sleep study done 05/22/13 at [facility] under Dr. Cutler. She was wearing a dental device purchased from [employer]. Patient wears her dental device. She is getting it refitted 10/2022. She uses O2 at 2 liter as needed 10/17/2022 Last Documented On 3 1:02AM ; [facility] Primary Care Provider: Dr. Angela Carrizales ~Dr. Sierra Mcgarry -- Cigar Head Puncher ~Dr. Naveed Lala, DPM -- Lpn ~Dr. Wolf Mitchell -- Environmental Attorney ~Dr. Keanu Mitchell, NICKY -- Dentist ~Dr. Joshua Hanson, OD -- Scientific Programmer Analyst 07/17/2022 Last Documented On 3 10:50AM ; [facility] History of hammer toe - 2nd toe of left foot straightened by Dr. Hiro Arthur 11/05/20 -- given Keflex 500 mg 04/05/2022 Last Documented On 3 10:50AM ; [facility] History of coronavirus 2019- nCoV vaccine - Pfizer #1 11/02/20 #2 03/23/21 -- as of 07/29/21 no booster yet 07/29/2021 Last Documented On 3 10:50AM ; [facility] History of vaginal candidiasis - given F lagyl 500 mg 11/06/20 12/20/2020 Last Documented On 3 10:50AM ; [facility] History of colonoscopy - 11/202012/21/19 21 Last Documented On 3 10:50AM ; [facility] History of hearing loss - wears bilatera l hearing aids 04/10/2019 Last Documented On 3 10:50AM ; [facility] History of iron deficiency - started on Ferrous Sulfate 325 mg [address] Goldie Kidd in 01/201904/10/2019 Last Documented On 3 10:50AM ; [facility] History of head injury /brain trauma Last Documented On 3 10:50AM ; [facility] History of sprain of the left foot 01/03 Last Documented On 3 10:50AM ; [facility] History of tinea pedis 08/01/2016 Last Documented On 3 10:50AM ; [facility] History of Epidural Steroid Injection -- 03/08/[address] Yi for back pain 03/13/2016 Last Documented On 3 10:50AM ; [facility] History of irritable bowel syndrome 01/13 Last Documented On 3 10:50AM ; [facility] History of esophageal reflux 08/02/2012 Last Documented On 3 10:50AM ; [facility] History of hypothyroidism 08/02/2012 Last Documented On 3 10:50AM ; [facility] History of hyperlipidemia 08/02/2012 Last Documented On 3 10:50AM ; [facility] History of hypertension 08/02/2012 Last Documented On 3 10:50AM ; [facility] Family History Includes: Family History addressed during this encounter Description Last Updated Paternal history of depression -- father 10/15/2014 Last Documented On 3 10:50AM ; [facility] Maternal history of depression -- mother 10/15/2014 Last Documented On 3 10:50AM ; [facility] Sororal history of depression -- sister 10/15/2014 Last Documented On 3 10:50AM ; [facility] Maternal history of anxiety disorder NOS -- mother 10/15/2014 Last Documented On 3 10:50AM ; [facility] Paternal history of anxiety disorder NOS -- father 10/15/2014 Last Documented On 3 10:50AM ; [facility] Review of Systems Includes: Review of [...] 1:33PM ; [facility] Medical [facility] Sulfa Antibiotics Allergy 08/02/2012 A ctive Last Documented On 4 11:08AM ; [facility] Note: Imported from external source. Neupro Allergy rash 10/23/2013 Active Last Documented On 4 11:08AM ; [facility]ICAL [facility] Note: Imported from external source. Encounters Encounter Provider Location Date Check-In Time Check-Out Time Diagnosis [facility] METLEONIDES VINCENT MD [facility] 10/18/19 23 10:49AM 11:59PM Generalized Anxiety Disorder,Restless Legs Syndrome,Dementia ,Psychophysiologi maday Insomnia,Bipolar I Disorder,Adult Attention Deficit Hyperactivity Disorder,Depressi ve Disorder, Nos Insurance Includes: Active Insurance Policies Plan Name Member ID Group # Subscriber Relationship Effect kofi Dates 1 - [facility] CLAIMS [place] [id number] EDITH DARBY Self 2 - [facility] [id number] INGRID DARBY 0 - Unknown Clinical Notes Includes: Clinical Notes from this encounter No Clinical Notes Recorded
--- OUTSIDE RECORDS SUMMARY | 2024-10-06 15:39 | XMS_ITS | Encounter Summary ---
Author Organization [facility] Address [address] [place] [address] Phone Care Team Providers Care Account Assistant Name Role Phone Emmett Carrizales MD Primary Care Provider [phone] Karolyn Tobar RN Unavailable Unavailable Ifrah Whitfield APRN, [employer] Unavailable Reason for Visit * Reason Comments Medication Refill Encounter Details Date Type Department Care Team (Late st Contact Info) Description 10/30/2023 Refill [facility] - Internal Medicine - [place] [address] [place] [address] Emmett Carrizales MD [address] [facility] [place] [address] Medication Refill Social History Tobacco Use Types Packs/Day Years Used Date Smoking Tobacco: Never Passive Smoke Exposure: Never Smokeless Tobacco: Never Alcohol Use Standard Drinks/Week Comments Not Currently 0 (1 standard drink = 0.6 oz pur e alcohol) [facility] Utilities Answer Date Recorded In the past 12 months has [employer] electric, gas, oil, or water company threatened [...] often do you attend chur ch or buddhist services? Never 09/13/2023 Do you belong to any clubs o r organizations such as orthodoxy groups, unions, fraternal or athletic groups, or [...] Total Score - Questions 1-9 0 08/2023 [facility] - Occupational [...] place to sleep or slept in a mcfp (including now)? No 09/13/2023 Education Answer Date [...] 10/11/23 Office Visit Emmett Carrizales MD [facility] 07/12/23 Office Visit Emmett Carrizales MD [facility] 06/07/23 Office Visit Emmett Carrizales MD [facility] [place] 05/22/23 [facility] [place] 04/11/23 Office Visit Emmett Carrizales MD [facility] [place] 12/21/22 Office Visit Emmett Carrizales MD [facility] [place] 11/23/22 Office Visit Kori Hudson, PAC [facility] [place] Showing recent visits within past 365 days and meeting all other requirements Future Appointments Date Type Provider Dept 01/09/24 Appointment Emmett Carrizales MD [facility] [place] Showing future appointments within next 90 days and meeting all other requirements documented in this encounter Plan of Treatment Upcoming Encounters Date Type Department Care Team (Late st Contact Info) Description 01/26/2025 9:45 AM CDT Office Visit [facility] - Internal Medicine - [place] [address] [place] [address] Emmett Carrizales MD [address] [facility] [place] [address] documented as of this encounter Goals Goal Patient Goal Type Associated Problems Recent Progress Patient-Stated? Author Prevent Falls and Injury Patient Goals On track(2024 11:16 AM CLIP ON SUNGLASSES INSPECTOR) Yes Karolyn Tobar, RN Note: Follow [...] alert plan in case I fall - medicinal plant picker clutter from the floors - use [...] Appointments Patient Goals On track(2024 11:16 AM CLIP ON SUNGLASSES INSPECTOR) Yes Karolyn Tobar RN Note: Follow [...] Risk (Fall Risk) On track(2024 11:14 AM CLIP ON SUNGLASSES INSPECTOR) No Karolyn Tobar, RN Note: Evidence-based guidance: Assess fall risk [...] Total Score: 0 09/13/19 24 1:30 PM CLIP ON SUNGLASSES INSPECTOR documented as of this encounter Care Teams Account Assistant Relationship Specialty Start Date End Date Emmett Carrizales MD [address] [place] [address] PCP - General Internal Medicine 06/29/15 Karolyn Tobar, [place] Nurse Purchasing Department Clerk 06/07/23 Ifrah Whitfield APRN, [employer] [facility] [address] [address] Nurse Practitioner Advanced Practice Nurse 03/06/22 documented as of this encounter
--- OUTSIDE RECORDS SUMMARY | 2024-10-06 15:40 | XMS_ITS | Encounter Summary ---
Author Organization [facility] Address [address] [place] [address] Phone Care Team Providers Care High School Coach Name Role Phone Emmett Carrizales MD Primary Care Provider [phone] Karolyn Tobar RN Unavailable Unavailable Ifrah Whitfield APRN, DAIRY AND FOOD LABORATORY ASSISTANT Unavailable [phone] Reason for Visit * Reason Comments Medication Refill Encounter Details Date Type Department Care Team (Late st Contact Info) Description 12/10/[address] [facility] - Internal Medicine - [place] [address] [place] [address] Emmett Carrizales MD [address] [facility] [place] [address] Medication Refill Social History Tobacco Use Types Packs/Day Years Used Date Smoking Tobacco: Never Passive Smoke Exposure: Never Smokeless Tobacco: Never Alcohol Use Standard Drinks/Week Comments Not Currently 0 (1 standard drink = 0.6 oz pur e alcohol) [facility] Utilities Answer Date Recorded In the past 12 months has [employer] electric, gas, oil, or water company threatened [...] often do you attend chur ch or restorationist services? Never 09/13/2023 Do you belong to any clubs o r organizations such as mandaen groups, unions, fraternal or athletic groups, or [...] Total Score - Questions 1-9 0 08/2023 [facility] - Occupational Stress [...] in a custodial (including now)? No 09/13/2023 Education Answer Date [...] Dept 11/27/23 Office Visit Emmett Carrizales MD [facility] [place] 10/11/23 Office Visit Emmett Carrizales MD [facility] [place] 07/12/23 Office Visit Emmett Carrizales MD [facility] [place] 06/07/23 Office Visit Emmett Carrizales MD [facility] [place] 05/22/23 Office Visit Kori Hudson PAC [facility] [place] 04/11/23 Office Visit Emm[facility]ales MD [facility] [place] 12/21/22 Office Visit Emmett Carrizales MD [facility] [place] Showing recent visits within past 365 days and meeting all other requirements Future Appointments Date Type Provider Dept 01/09/24 Appointment Emmett Carrizales MD [facility] [place] Showing future appointments within next 90 days [...] [facility] [place] [address] [place] [address] Emmett Carrizales MD [address] [place] [address] documented as of this encounter Goals Goal Patient Goal Type Associated Problems Recent Progress Patient-Stated? Author Prevent Falls and Injury Patient Goals On track(2024 11:16 AM MEASURING MACHINE TENDER) Yes Karolyn Tobar, RN Note: Follow Up [...] alert plan in case I fall - hop picker clutter from the floors - use [...] Appointments Patient Goals On track(2024 11:16 AM MEASURING MACHINE TENDER) Yes Karolyn Tobar, RN Note: Follow Up [...] Care Plan Fall Risk (Fall Risk) On track(01/16/ 2025 11:14 AM MEASURING MACHINE TENDER) No Karolyn Tobar, RN Note: Evidence-based guidance: [...] Total Score: 0 09/13/19 24 1:30 PM MEASURING MACHINE TENDER documented as of this encounter Care Teams High School Coach Relationship Specialty Start Date End Date Emmett Carrizales MD [address] [place] [address] PCP - General Internal Medicine 06/29/15 Karolyn Tobar, RN CT Nurse Charging Manipulator 06/07/23 Ifrah Whitfield, OIL AND GAS LEASE PUMPER, DAIRY AND FOOD LABORATORY ASSISTANT #[id number] [address] Nurse Practitioner Advanced Practice Nurse 03/06/22 documented as of this encounter
--- OUTSIDE RECORDS SUMMARY | 2024-10-06 15:40 | XMS_ITS ---
Author Organization [facility] Medical Formerly [facility] S Address [address] [place] [address] Phone Care Team Providers Care Assistant Prosecuting Attorney Name Role Phone RHIANNON DAI, EILEEN JJ [...] Active Last Documented On 8 6:05AM ; [facility] Adult Attention Deficit Hype ractivity Disorder 01/16/2017 EILEEN VINCENT MD Active Last Documented On 7 11:10AM ; [facility] Psychophysiological Insomnia 09/27/2016 EILEEN VINCENT MD Active Last Documented On 7 10:35AM ; [facility] Bipolar I Disorder 03/13/2015 EILEEN BREEN MD Active Last Documented On 5 10:21AM ; [facility] Dementia 02/10/2015 EILEEN VINCENT MD Ac tive Last Documented On 5 10:58AM ; [facility] Generalized Anxiety Disorder 02/10/2015 EILEEN VINCENT MD Active Last Documented On 5 10:22AM ; [facility] Mild cognitive impairment of uncertain or unknown etiology 02/10/2015 EILEEN VINCENT MD Active Last Documented On 5 10:36AM ; [facility] Persistent Insomnia 11/11/2013 EILEEN CONNORS MD Inactive Last Documented On 5 10:41AM ; [facility] Restless Legs Syndrome 07/28/2013 EILEEN DE LA VEGA MD Inactive Last Documented On 5 10:42AM ; [facility] Restless Legs Syndrome 07/28/2013 EILEEN DE LA VEGA MD Active Last Documented On 1 11:20AM ; [facility] Nonorganic Sleep Apnea Obstructive 04/14/2013 Elizabeth VINCENT MD Inactive Last Documented On 5 10:51AM ; [facility] Sleep apnea, unspecified 04/14/2013 EILEEN VINCENT MD Active Last Documented On 5 10:51AM ; [facility] Bipolar I Disorder, Most Rec ent Episode, Depressed 10/23/2012 EILEEN VINCENT MD Inactive Last Documented On 5 10:51AM ; [facility] PRESENILE DEMENTIA 08/07/2012 EILEEN BREEN MD Inactive Last Documented On 04/28/2015 10:52AM ; [facility] Note: Probable dementia Hypothyroidism, unspecified 08/02/2012 EILEEN VINCENT MD Active Last Documented On 5 10:49AM ; [facility] Esophageal Reflux 08/02/2012 EILEEN Miller MD Inactive Last Documented On 5 10:37AM ; [facility] Gastro-esophageal reflux dis ease without esophagitis 08/02/2012 EILEEN VINCENT MD Active Last Documented On 5 10:37AM ; [facility] Fracture of Nasal Bones 08/02/2012 EILEEN VINCENT MD Active Last Documented On 2 11:16AM ; [facility] GENERALIZED ANXIETY DIS 08/02/2012 EILEEN VINCENT MD Inactive Last Documented On 5 10:37AM ; [facility] Hyperlipidemia 08/02/2012 EILEEN rS Inactive Last Documented On 5 10:38AM ; [facility] Hyperlipidemia, unspecified 08/02/2012 EILEEN VINCENT MD Active Last Documented On 5 10:38AM ; [facility] Essential (primary) hypertension 08/02/2012 MET LEONIDES VINCENT MD Active Last Documented On 5 10:38AM ; [facility] Hypertension Systemic 08/02/2012 EILEEN HAAS MD Inactive Last Documented On 5 10:38AM ; [facility] Hypothyroidism 08/02/2012 EILEEN Sr Inactive Last Documented On 5 10:49AM ; [facility] Irritable Bowel Syndrome 08/02/2012 EILEEN VINCENT MD Inactive Last Documented On 5 10:50AM ; [facility] Irritable bowel syndrome without diarrhea 08/02/2012 EILEEN VINCENT MD Active Last Documented On 5 10:50AM ; [facility] Reported Trauma To Head 08/02/2012 EILEEN VINCENT MD Inactive Last Documented On 4 9:46PM ; [facility] Plan of Treatment Findings Encounter Date Ordered Transition in care, clinical summary provided GENERAL OFFICE VISIT with EILEEN VINCENT MD 05/07/2013 Last Documented On 3 9:22PM ; [facility] Referrals To Diagnosis Sleep Study OBSTRUCTIVE SLEE P APNEA Note: [facility] Last Documented On 4 5:59PM ; [facility] Instructions to patient Lose weight - pt gained 7 lb s since last seen Last Documented On 2 12:51PM ; [facility] Lose weight Last Documented On 1 11:32AM ; [facility] Lose weight Last Documented On 1 11:48AM ; [facility] Lose weight Last Documented On 1 12:04PM ; [facility] Lose weight Last Documented On 1 11:25AM ; [facility] Lose weight Last Documented On 0 11:49AM ; [facility] Education and Decision Aids were provided during visit for: Patient counseling I discuss ed risk, benefits, and side effects of sleep aid - Belsomra - including the possibility of sleep related behaviors i.e. sleepwalking, sleeptalking, sleepdriving, etc... Pt verbalized understanding. So far, pt denied sleep related behaviors Last Documented On 3 12:52AM ; [facility] Discussed good sleep hygiene habits Last Documented On 3 11:27AM ; [facility] I recommended cognitive exer cises such as reading and/or word search puzzles, etc.. Last Documented On 3 11:51PM ; [facility] Patient education about medi cation ---Education was given on medication(s) and diagnosis. I reviewed the risks, benefits and side effects of patient's medications Last Documented On 2 11:24AM ; [facility] Discussed calming techniques such as breathing exercises and other relaxation techniques Last Documented On 2 11:24AM ; [facility] Counseling for nutrition/teresa ght management provided Last Documented On 2 11:45AM ; [facility] Discussed good sleep hygiene habits Last Documented On 2 11:45AM ; [facility] I recommended cognitive exer cises such as reading and/or word search puzzles, etc.. Last Documented On 2 12:49PM ; [facility] Patient education about medi cation --- I educated patient on medication(s) and diagnosis. I reviewed the risks, benefits and side effects of patient's medications Last Documented On 2 11:01AM ; [facility] Discussed calming techniques such as breathing exercises and other relaxation techniques Last Documented On 2 11:01AM ; [facility] Discussed good sleep hygiene habits Last Documented On 2 11:48AM ; [facility] Patient education about medi cation --- I educated patient on medication(s) and diagnosis. I reviewed the risks, benefits and side effects of patient's medications Last Documented On 2 11:15AM ; [facility] Discussed calming techniques such as breathing exercises and other relaxation techniques Last Documented On 2 11:15AM ; [facility] Discussed good sleep hygiene habits Last Documented On 2 11:20AM ; [facility] I recommended cognitive exer cises such as reading and/or word search puzzles, etc.. Last Documented On 2 7:56AM ; [facility] Patient education about medi cation --- I educated patient on medication(s) and diagnosis. I reviewed the risks, benefits and side effects of patient's medications Last Documented On 1 11:29AM ; [facility] Discussed calming techniques such as breathing exercises and other relaxation techniques Last Documented On 1 11:29AM ; [facility] Counseling for nutrition/teresa ght management provided Last Documented On 1 11:32AM ; [facility] Patient education about medi cation --- I educated patient on medication(s) and diagnosis. I reviewed the risks, benefits and side effects of patient's medications Last Documented On 1 11:37AM ; [facility] Discussed calming techniques such as breathing exercises and other relaxation techniques Last Documented On 1 11:37AM ; [facility] Counseling for nutrition/teresa ght management provided Last Documented On 1 11:48AM ; [facility] Discussed good sleep hygiene habits Last Documented On 1 11:48AM ; [facility] Patient education about medi cation --- I educated patient on medication(s) and diagnosis. I reviewed the risks, benefits and side effects of patient's medications Last Documented On 1 12:03PM ; [facility] Discussed calming techniques such as breathing exercises and other relaxation techniques Last Documented On 1 12:03PM ; [facility] Counseling for nutrition/teresa ght management provided Last Documented On 1 12:04PM ; [facility] Discussed good sleep hygiene habits Last Documented On 1 12:04PM ; [facility] I recommended cognitive exer cises such as reading and/or word search puzzles, etc.. Last Documented On 1 1:53PM ; [facility] Patient education about medi cation --- I educated patient on medication(s) and diagnosis. I reviewed the risks, benefits and side effects of patient's medications Last Documented On 1 11:24AM ; [facility] Discussed calming techniques such as breathing exercises and other relaxation techniques Last Documented On 1 11:24AM ; [facility] Counseling for nutrition/teresa ght management provided Last Documented On 1 11:25AM ; [facility] I recommended cognitive exer cises such as reading and/or word search puzzles, etc.. Last Documented On 1 11:29AM ; [facility] Patient education about medi cation --- I educated patient on medication(s) and diagnosis. I reviewed the risks, benefits and side effects of patient's medications Last Documented On 0 11:14AM ; [facility] Discussed calming techniques such as breathing exercises and other relaxation techniques Last Documented On 0 11:14AM ; [facility] Counseling for nutrition/teresa ght management provided Last Documented On 0 11:49AM ; [facility] Patient education about a pr oper diet Last Documented On 0 11:24AM ; [facility] Patient education about medi cation --- I educated patient on medication(s) and diagnosis. I reviewed the risks, benefits and side effects of patient's medications Last Documented On 0 11:05AM ; [facility] Discussed calming techniques such as breathing exercises and other relaxation techniques Last Documented On 0 11:05AM ; [facility] Counseling for nutrition/teresa ght management provided Last Documented On 0 11:24AM ; [facility] I recommended cognitive exer cises such as reading and/or word search puzzles, etc.. Last Documented On 0 11:34PM ; [facility] Patient education about a pr oper diet Last Documented On 0 11:45AM ; [facility] Patient education about medi cation --- I educated patient on medication(s) and diagnosis. I reviewed the risks, benefits and side effects of patient's medications Last Documented On 0 11:12AM ; [facility] Discussed calming techniques such as breathing exercises and other relaxation techniques Last Documented On 0 11:12AM ; [facility] Counseling for nutrition/teresa ght management provided Last Documented On 0 11:45AM ; [facility] Discussed good sleep hygiene habits Last Documented On 0 2:21AM ; [facility] I recommended cognitive exer cises such as reading and/or word search puzzles, etc.. Last Documented On 0 2:21AM ; [facility] Patient education about a pr oper diet Last Documented On 9 1:50PM ; [facility] Patient education about medi cation --- I educated patient on medication(s) and diagnosis. I reviewed the risks, benefits and side effects of patient's medications Last Documented On 9 1:29PM ; [facility] Discussed calming techniques such as breathing exercises and other relaxation techniques Last Documented On 9 1:29PM ; [facility] Counseling for nutrition/teresa ght management provided Last Documented On 9 1:50PM ; [facility] I recommended cognitive exer cises such as reading and/or word search puzzles, etc.. Last Documented On 9 11:01PM ; [facility] Patient education about a pr oper diet Last Documented On 9 4:10PM ; [facility] Patient education about medi cation --- I educated patient on medication(s) and diagnosis. I reviewed the risks, benefits and side effects of patient's medications Last Documented On 9 3:38PM ; [facility] Discussed calming techniques such as breathing exercises and other relaxation techniques Last Documented On 9 3:38PM ; [facility] Counseling for nutrition/teresa ght management provided Last Documented On 9 4:10PM ; [facility] Discussed good sleep hygiene habits Last Documented On 9 3:37AM ; [facility] I recommended cognitive exer cises such as reading and/or word search puzzles, etc.. Last Documented On 9 3:37AM ; [facility] Patient education about a pr oper diet Last Documented On 8 2:31PM ; [facility] Patient education about medi cation --- I educated patient on medication(s) and diagnosis. I reviewed the risks, benefits and side effects of patient's medications Last Documented On 8 2:26PM ; [facility] Discussed calming techniques such as breathing exercises and other relaxation techniques Last Documented On 8 2:26PM ; [facility] Counseling for nutrition/teresa ght management provided Last Documented On 8 2:31PM ; [facility] I recommended cognitive exer cises such as reading and/or word search puzzles, etc.. Last Documented On 8 6:02AM ; [facility] Patient education about medi cation --- I educated patient on medication(s) and diagnosis. I reviewed the risks, benefits and side effects of patient's medications Last Documented On 8 11:13AM ; [facility] Discussed calming techniques such as breathing exercises and other relaxation techniques Last Documented On 8 11:13AM ; [facility] Counseling for nutrition/teresa ght management provided Last Documented On 8 9:42PM ; [facility] I recommended cognitive exer cises such as reading and/or word search puzzles, etc.. Last Documented On 8 9:42PM ; [facility] Patient education about medi cation --- I educated patient on medication(s) and diagnosis. I reviewed the risks, benefits and side effects of patient's medications Last Documented On 8 10:54AM ; [facility] Discussed calming techniques such as breathing exercises and other relaxation techniques Last Documented On 8 10:54AM ; [facility] Counseling for nutrition/teresa ght management provided Last Documented On 8 7:35AM ; [facility] I recommended cognitive exer cises such as reading and/or word search puzzles, etc.. Last Documented On 8 7:35AM ; [facility] Patient education about medi cation --- I educated patient on medication(s) and diagnosis. I reviewed the risks, benefits and side effects of patient's medications Last Documented On 7 11:30AM ; [facility] Discussed calming techniques such as breathing exercises and other relaxation techniques Last Documented On 7 11:30AM ; [facility] Counseling for nutrition/teresa ght management provided Last Documented On 7 8:02AM ; [facility] I recommended cognitive exer cises such as reading and/or word search puzzles, etc.. Last Documented On 7 8:02AM ; [facility] Patient education about medi cation --- I educated patient on medication(s) and diagnosis. I reviewed the risks, benefits and side effects of patient's medications Last Documented On 7 11:17AM ; [facility] Discussed calming techniques such as breathing exercises and other relaxation techniques Last Documented On 7 11:17AM ; [facility] Counseling for nutrition/teresa ght management provided Last Documented On 7 2:20AM ; [facility] I recommended cognitive exer cises such as reading and/or word search puzzles, etc.. Last Documented On 7 2:20AM ; [facility] Patient education about medi cation --- I educated patient on medication(s) and diagnosis. I reviewed the risks, benefits and side effects of patient's medications Last Documented On 7 10:24AM ; [facility] Discussed calming techniques such as breathing exercises and other relaxation techniques Last Documented On 7 10:24AM ; [facility] Counseling for nutrition/teresa ght management provided Last Documented On 7 11:32AM ; [facility] Discussed good sleep hygiene habits Last Documented On 7 11:32AM ; [facility] I recommended cognitive exer cises such as reading and/or word search puzzles, etc.. Last Documented On 7 11:32AM ; [facility] Patient education about medi cation --- I educated patient on medication(s) and diagnosis. I reviewed the risks, benefits and side effects of patient's medications Last Documented On 7 10:41AM ; [facility] Discussed calming techniques such as breathing exercises/meditation and other relaxation techniques Last Documented On 7 10:41AM ; [facility] Counseling for nutrition/teresa ght management provided Last Documented On 7 3:51PM ; [facility] Discussed good sleep hygiene habits Last Documented On 7 3:51PM ; [facility] I recommended cognitive exer cises such as reading and/or word search puzzles, etc.. Last Documented On 7 3:51PM ; [facility] Patient education about medi cation --- I educated patient on medication(s) and diagnosis. I reviewed the risks, benefits and side effects of patient's medications Last Documented On 6 9:31AM ; [facility] Discussed calming techniques such as breathing exercises/meditation and other relaxation techniques Last Documented On 6 9:31AM ; [facility] Counseling for nutrition/teresa ght management provided Last Documented On 6 3:01PM ; [facility] Discussed good sleep hygiene habits Last Documented On 6 3:01PM ; [facility] I recommended cognitive exer cises such as reading and/or word search puzzles, etc.. Last Documented On 6 3:01PM ; [facility] Patient education about medi cation --- I educated patient on medication(s) and diagnosis. I reviewed the risks, benefits and side effects of patient's medications Last Documented On 6 9:46AM ; [facility] Discussed calming techniques such as breathing exercises/meditation and other relaxation techniques Last Documented On 6 9:46AM ; [facility] Counseling for nutrition/teresa ght management provided Last Documented On 6 7:20AM ; [facility] Discussed good sleep hygiene habits Last Documented On 6 7:20AM ; [facility] Patient education about medi cation --- I educated patient on medication(s) and diagnosis. I reviewed the risks, benefits and side effects of patient's medications Last Documented On 6 9:53AM ; [facility] Discussed calming techniques such as breathing exercises/meditation and other relaxation techniques Last Documented On 6 9:53AM ; [facility] Counseling for nutrition/teresa ght management provided Last Documented On 6 11:01AM ; [facility] Patient education about medi cation --- I educated patient on medication(s) and diagnosis. I reviewed the risks, benefits and side effects of patient's medications Last Documented On 5 9:52AM ; [facility] Discussed calming techniques such as breathing exercises/meditation and other relaxation techniques Last Documented On 5 9:52AM ; [facility] Counseling for nutrition/teresa ght management provided Last Documented On 5 9:26PM ; [facility] Patient education about medi cation --- I educated patient on medication(s) and diagnosis. I reviewed the risks, benefits and side effects of patient's medications Last Documented On 5 10:19AM ; [facility] Discussed calming techniques such as breathing exercises/meditation and other relaxation techniques Last Documented On 5 10:19AM ; [facility] Counseling for nutrition/teresa ght management provided Last Documented On 5 12:29PM ; [facility] Patient education about medi cation --- I educated patient on medication(s) and diagnosis. I reviewed the risks, benefits and side effects of patient's medications Last Documented On 5 10:10PM ; [facility] Discussed calming techniques such as breathing exercises/meditation and other relaxation techniques Last Documented On 5 10:56AM ; [facility] Counseling for nutrition/teresa ght management provided Last Documented On 5 10:10PM ; [facility] Patient education about medi cation --- I educated patient on medication(s) and diagnosis. I reviewed the risks, benefits and side effects of patient's medications Last Documented On 5 6:47AM ; [facility] Discussed calming techniques such as breathing exercises/meditation and other relaxation techniques Last Documented On 5 11:14AM ; [facility] Counseling for nutrition/teresa ght management provided Last Documented On 5 6:47AM ; [facility] I recommended cognitive exer cises such as reading and/or word search puzzles, etc.. Last Documented On 5 6:47AM ; [facility] Patient education about medi cation --- I educated patient on medication(s) and diagnosis. I reviewed the risks, benefits and side effects of patient's medications Last Documented On 4 7:59PM ; [facility] Discussed calming techniques such as breathing exercises/meditation and other relaxation techniques Last Documented On 4 10:03AM ; [facility] Counseling for nutrition/teresa ght management provided Last Documented On 4 7:59PM ; [facility] I recommended cognitive exer cises such as reading and/or word search puzzles, etc.. Last Documented On 4 7:59PM ; [facility] Patient education about medi cation --- I educated patient on medication(s) and diagnosis. I reviewed the risks, benefits and side effects of patient's medications Last Documented On 4 10:04AM ; [facility] Discussed calming techniques such as breathing exercises/meditation and other relaxation techniques Last Documented On 4 9:26AM ; [facility] Counseling for nutrition/teresa ght management provided Last Documented On 4 10:04AM ; [facility] Patient education about medi cation --- I educated patient on medication(s) and diagnosis. I reviewed the risks, benefits and side effects of patient's medications Last Documented On 4 10:25PM ; [facility] Discussed calming techniques such as breathing exercises/meditation and other relaxation techniques Last Documented On 4 8:59AM ; [facility] Patient education about medi cation --- I educated patient on medication(s) and diagnosis. I reviewed the risks, benefits and side effects of patient's medications Last Documented On 4 10:40PM ; [facility] Discussed calming techniques such as breathing exercises/meditation and other relaxation techniques Last Documented On 4 2:19PM ; [facility] Counseling for nutrition/teresa ght management provided Last Documented On 4 10:40PM ; [facility] Patient education about medi cation --- I educated patient on medication(s) and diagnosis. I reviewed the risks, benefits and side effects of patient's medications.--no rash from Lamictal so far Last Documented On 4 9:29PM ; [facility] Discussed calming techniques such as breathing exercises/meditation and other relaxation techniques Last Documented On 4 2:46PM ; [facility] Counseling for nutrition/teresa ght management provided Last Documented On 4 9:29PM ; [facility] Patient education about medi cation --- I educated patient on medication(s) and diagnosis. I reviewed the risks, benefits and side effects of patient's medications including the possibility of SJS rash with Lamictal Last Documented On 4 9:56PM ; [facility] Discussed calming techniques such as breathing exercises/meditation and other relaxation techniques Last Documented On 4 3:16PM ; [facility] Counseling for nutrition/teresa ght management provided Last Documented On 4 9:56PM ; [facility] Patient education about medi cation --- I educated patient on medication(s) and diagnosis. I reviewed the risks, benefits and side effects of patient's medications Last Documented On 4 8:18PM ; [facility] Discussed calming techniques such as breathing exercises/meditation and other relaxation techniques Last Documented On 4 1:56PM ; [facility] Counseling for nutrition/teresa ght management provided Last Documented On 4 8:18PM ; [facility] Patient education about medi cation --- I educated patient on medication(s) and diagnosis Last Documented On 3 3:56PM ; [facility] Discussed calming techniques such as breathing exercises/meditation and other relaxation techniques Last Documented On 3 2:43PM ; [facility] Counseling for nutrition/teresa ght management provided Last Documented On 3 3:56PM ; [facility] Discussed good sleep hygiene habits Last Documented On 3 3:56PM ; [facility] I recommended cognitive exer cises such as reading and/or word search puzzles, etc.. Last Documented On 3 10:08PM ; [facility] Patient education about medi cation --- I educated patient on medication(s) and diagnosis Last Documented On 3 9:12PM ; [facility] Discussed calming techniques such as breathing exercises/meditation and other relaxation techniques Last Documented On 3 2:56PM ; [facility] Counseling for nutrition/teresa ght management provided Last Documented On 3 9:12PM ; [facility] Reviewed side effects and Ri sks/Benefits analysis Last Documented On 3 9:12PM ; [facility] I recommended cognitive exer cises such as reading and/or word search puzzles, etc.. Last Documented On 3 9:12PM ; [facility] Patient education about medi cation --- I educated patient on medication(s) and diagnosis Last Documented On 3 8:15PM ; [facility] Discussed calming techniques such as breathing exercises/meditation and other relaxation techniques Last Documented On 3 3:51PM ; [facility] Patient education about medi cation --- I educated patient on medication(s) and diagnosis Last Documented On 3 4:11PM ; [facility] Discussed calming techniques such as yoga meditation to help relieve some anxiety symptoms Last Documented On 3 3:50PM ; [facility] Discussed calming techniques such as breathing exercises and other relaxation techniques Last Documented On 3 3:50PM ; [facility] Discussed good sleep hygiene habits Last Documented On 3 4:11PM ; [facility] Patient education about medi cation --- I educated patient on medication(s) and diagnosis Last Documented On 3 8:55PM ; [facility] Discussed calming techniques such as yoga meditation to help relieve some anxiety symptoms Last Documented On 3 8:27PM ; [facility] Discussed calming techniques such as breathing exercises and other relaxation techniques Last Documented On 3 8:27PM ; [facility] Patient education about medi cation --- I educated patient on medication(s) and diagnosis Last Documented On 2 2:05PM ; [facility] Discussed calming techniques such as yoga meditation to help relieve some anxiety symptoms Last Documented On 2 1:19PM ; [facility] Discussed calming techniques such as breathing exercises and other relaxation techniques Last Documented On 2 1:19PM ; [facility] Discussed good sleep hygiene habits Last Documented On 2 2:05PM ; [facility] Assessments Includes: Assessments for all patient encounters Findings Encounter Date Adult attention deficit hype ractivity disorder TELEHEALTH with EILEEN VINCENT MD 10/17/2022 Last Documented On 3 1:02AM ; [facility] Bipolar I disorder TELEHEALTH with EILEEN DE LA VEGA MD 10/17/2022 Last Documented On 3 1:02AM ; [facility] Dementia TELEHEALTH with EILEEN CONNORS MD 10/17/2022 Last Documented On 3 1:02AM ; [facility] Depressive disorder TELEHEALTH with EILEEN VINCENT MD 10/17/2022 Last Documented On 3 1:02AM ; [facility] Generalized anxiety disorder TELEHEALTH with MET LEONIDES VINCENT MD 10/17/2022 Last Documented On 3 1:02AM ; [facility] Psychophysiological insomnia TELEHEALTH with MET ELONIDES VINCENT MD 10/17/2022 Last Documented On 3 1:02AM ; [facility] Restless legs syndrome TELEHEALTH with EILEEN VINCENT MD 10/17/2022 Last Documented On 3 1:02AM ; [facility] Psychophysiological insomnia * PHONE CALL with Elizabeth VINCENT MD 07/31/2022 Last Documented On 2 12:03PM ; [facility] Adult attention deficit hype ractivity disorder TELEHEALTH with EILEEN VINCENT MD 07/17/2022 Last Documented On 2 12:56PM ; [facility] Bipolar I disorder TELEHEALTH with EILEEN DE LA VEGA MD 07/17/2022 Last Documented On 2 12:56PM ; [facility] Dementia TELEHEALTH with EILEEN CONNORS MD 07/17/2022 Last Documented On 2 12:56PM ; [facility] Depressive disorder TELEHEALTH with EILEEN VINCENT MD 07/17/2022 Last Documented On 2 12:56PM ; [facility] Generalized anxiety disorder TELEHEALTH with MET LEONIDES VINCENT MD 07/17/2022 Last Documented On 2 12:56PM ; [facility] Psychophysiological insomnia TELEHEALTH with MET LEONIDES VINCENT MD 07/17/2022 Last Documented On 2 12:56PM ; [facility] Restless legs syndrome TELEHEALTH with EILEEN VINCENT MD 07/17/2022 Last Documented On 2 12:56PM ; [facility] Psychophysiological insomnia * PHONE CALL with Elizabeth VINCENT MD 04/11/2022 Last Documented On 2 6:59PM ; [facility] Adult attention deficit hype ractivity disorder TELEHEALTH with EILEEN VINCENT MD 04/05/2022 Last Documented On 2 12:54PM ; [facility] Bipolar I disorder TELEHEALTH with EILEEN DEL A VEGA MD 04/05/2022 Last Documented On 2 12:54PM ; [facility] Dementia TELEHEALTH with EILEEN CONNORS MD 04/05/2022 Last Documented On 2 12:54PM ; [facility] Depressive disorder TELEHEALTH with EILEEN VINCENT MD 04/05/2022 Last Documented On 2 12:54PM ; [facility] Generalized anxiety disorder TELEHEALTH with MET LEONIDES VINCENT MD 04/05/2022 Last Documented On 2 12:54PM ; [facility] Psychophysiological insomnia TELEHEALTH with MET LEONIDES VINCENT MD 04/05/2022 Last Documented On 2 12:54PM ; [facility] Restless legs syndrome TELEHEALTH with EILEEN VINCENT MD 04/05/2022 Last Documented On 2 12:54PM ; [facility] Adult attention deficit hype ractivity disorder TELEHEALTH with EILEEN VINCENT MD 11/25/2021 Last Documented On 2 8:02AM ; [facility] Bipolar I disorder TELEHEALTH with EILEEN DE LA VEGA MD 11/25/2021 Last Documented On 2 8:02AM ; [facility] Dementia TELEHEALTH with EILEEN CONNORS MD 11/25/2021 Last Documented On 2 8:02AM ; [facility] Depressive disorder TELEHEALTH with EILEEN VINCENT MD 11/25/2021 Last Documented On 2 8:02AM ; [facility] Generalized anxiety disorder TELEHEALTH with MET LEONIDES VINCENT MD 11/25/2021 Last Documented On 2 8:02AM ; [facility] Psychophysiological insomnia TELEHEALTH with MET LEONIDES VINCENT MD 11/25/2021 Last Documented On 2 8:02AM ; [facility] Restless legs syndrome * PHONE CALL with EILEEN VINCENT MD 08/02/2021 Last Documented On 1 12:34PM ; [facility] Adult attention deficit hype ractivity disorder TELEHEALTH with EILEEN VINCENT MD 07/29/2021 Last Documented On 2 8:23AM ; [facility] Bipolar I disorder TELEHEALTH with EILEEN DE LA VEGA MD 07/29/2021 Last Documented On 2 8:23AM ; [facility] Dementia TELEHEALTH with EILEEN CONNORS MD 07/29/2021 Last Documented On 2 8:23AM ; [facility] Depressive disorder TELEHEALTH with EILEEN VINCENT MD 07/29/2021 Last Documented On 2 8:23AM ; [facility] Generalized anxiety disorder TELEHEALTH with MET LEONIDES VINCENT MD 07/29/2021 Last Documented On 2 8:23AM ; [facility] Psychophysiological insomnia TELEHEALTH with MET LEONIDES VINCENT MD 07/29/2021 Last Documented On 2 8:23AM ; [facility] Adult attention deficit hype ractivity disorder TELEHEALTH with EILEEN VINCENT MD 04/19/2021 Last Documented On 1 8:53AM ; [facility] Bipolar I disorder TELEHEALTH with EILEEN DE LA VEGA MD 04/19/2021 Last Documented On 1 8:53AM ; [facility] Dementia TELEHEALTH with EILEEN CONNORS MD 04/19/2021 Last Documented On 1 8:53AM ; [facility] Depressive disorder TELEHEALTH with EILEEN VINCENT MD 04/19/2021 Last Documented On 1 8:53AM ; [facility] Generalized anxiety disorder TELEHEALTH with MET LEONIDES VINCENT MD 04/19/2021 Last Documented On 1 8:53AM ; [facility] Psychophysiological insomnia TELEHEALTH with MET LEONIDES VINCENT MD 04/19/2021 Last Documented On 1 8:53AM ; [facility] Adult attention deficit hype ractivity disorder TELEHEALTH with EILEEN VINCENT MD 12/20/2020 Last Documented On 1 1:57PM ; [facility] Bipolar I disorder TELEHEALTH with EILEEN DE LA VEGA MD 12/20/2020 Last Documented On 1 1:57PM ; [facility] Dementia TELEHEALTH with EILEEN CONNORS MD 12/20/2020 Last Documented On 1 1:57PM ; [facility] Depressive disorder TELEHEALTH with EILEEN VINCENT MD 12/20/2020 Last Documented On 1 1:57PM ; [facility] Generalized anxiety disorder TELEHEALTH with MET LEONIDES VINCENT MD 12/20/2020 Last Documented On 1 1:57PM ; [facility] Psychophysiological insomnia TELEHEALTH with MET LEONIDES VINCENT MD 12/20/2020 Last Documented On 1 1:57PM ; [facility] Generalized anxiety disorder * PHONE CALL with Elizabeth VINCENT MD 10/08/2020 Last Documented On 1 4:25PM ; [facility] Adult attention deficit hype ractivity disorder TELEHEALTH with EILEEN VINCENT MD 08/23/2020 Last Documented On 1 11:00PM ; [facility] Bipolar I disorder TELEHEALTH with EILEEN DE LA VEGA MD 08/23/2020 Last Documented On 1 11:00PM ; [facility] Dementia TELEHEALTH with EILEEN CONNORS MD 08/23/2020 Last Documented On 1 11:00PM ; [facility] Depressive disorder TELEHEALTH with EILEEN VINCENT MD 08/23/2020 Last Documented On 1 11:00PM ; [facility] Generalized anxiety disorder TELEHEALTH with MET LEONIDES VINCENT MD 08/23/2020 Last Documented On 1 11:00PM ; [facility] Psychophysiological insomnia TELEHEALTH with MET LEONIDES VINCENT MD 08/23/2020 Last Documented On 1 11:00PM ; [facility] Adult attention deficit hype ractivity disorder GENERAL OFFICE VISIT with EILEEN VINCENT MD 04/21/2020 Last Documented On 0 8:09AM ; [facility] Bipolar I disorder GENERAL OFFICE VISIT with MET LEONIDES VINCENT MD 04/21/2020 Last Documented On 0 8:09AM ; [facility] Dementia GENERAL OFFICE VISIT with ROBERT VINCENT MD 04/21/2020 Last Documented On 0 8:09AM ; [facility] Depressive disorder GENERAL OFFICE VISIT with ME MARI VINCENT MD 04/21/2020 Last Documented On 0 8:09AM ; [facility] Generalized anxiety disorder GENERAL OFF ICE VISIT with EILEEN VINCENT MD 04/21/2020 Last Documented On 0 8:09AM ; [facility] Psychophysiological insomnia GENERAL OFF ICE VISIT with EILEEN VINCENT MD 04/21/2020 Last Documented On 0 8:09AM ; [facility] Adult attention deficit hype ractivity disorder GENERAL OFFICE VISIT with EILEEN VINCENT MD 12/15/2019 Last Documented On 0 11:41PM ; [facility] Bipolar I disorder GENERAL OFFICE VISIT with MET LEONIDES VINCENT MD 12/15/2019 Last Documented On 0 11:41PM ; [facility] Dementia GENERAL OFFICE VISIT with ROBERT VINCENT MD 12/15/2019 Last Documented On 0 11:41PM ; [facility] Depressive disorder GENERAL OFFICE VISIT with ME MARI VINCENT MD 12/15/2019 Last Documented On 0 11:41PM ; [facility] Generalized anxiety disorder GENERAL OFF ICE VISIT with EILEEN VINCENT MD 12/15/2019 Last Documented On 0 11:41PM ; [facility] Psychophysiological insomnia GENERAL OFF ICE VISIT with EILEEN VINCENT MD 12/15/2019 Last Documented On 0 11:41PM ; [facility] Adult attention deficit hype ractivity disorder GENERAL OFFICE VISIT with EILEEN VINCENT MD 08/21/2019 Last Documented On 0 2:23AM ; [facility] Bipolar I disorder GENERAL OFFICE VISIT with MET LEONIDES VINCENT MD 08/21/2019 Last Documented On 0 2:23AM ; [facility] Dementia GENERAL OFFICE VISIT with ROBERT VINCENT MD 08/21/2019 Last Documented On 0 2:23AM ; [facility] Depressive disorder GENERAL OFFICE VISIT with ME MARI VINCENT MD 08/21/2019 Last Documented On 0 2:23AM ; [facility] Generalized anxiety disorder GENERAL OFF ICE VISIT with EILEEN VINCENT MD 08/21/2019 Last Documented On 0 2:23AM ; [facility] Psychophysiological insomnia GENERAL OFF ICE VISIT with EILEEN VINCENT MD 08/21/2019 Last Documented On 0 2:23AM ; [facility] Adult attention deficit hype ractivity disorder GENERAL OFFICE VISIT with EILEEN VINCENT MD 04/10/2019 Last Documented On 9 11:01PM ; [facility] Bipolar I disorder GENERAL OFFICE VISIT with MET LEONIDES VINCENT MD 04/10/2019 Last Documented On 9 11:01PM ; [facility] Dementia GENERAL OFFICE VISIT with ROBERT VINCENT MD 04/10/2019 Last Documented On 9 11:01PM ; [facility] Depressive disorder GENERAL OFFICE VISIT with ME MARI VINCENT MD 04/10/2019 Last Documented On 9 11:01PM ; [facility] Generalized anxiety disorder GENERAL OFF ICE VISIT with EILEEN VINCENT MD 04/10/2019 Last Documented On 9 11:01PM ; [facility] Psychophysiological insomnia GENERAL OFF ICE VISIT with EILEEN VINCENT MD 04/10/2019 Last Documented On 9 11:01PM ; [facility] Adult attention deficit hype ractivity disorder * PHONE CALL with EILEEN VINCENT MD 12/24/2018 Last Documented On 9 8:05PM ; [facility] Adult attention deficit hype ractivity disorder GENERAL OFFICE VISIT with EILEEN VINCENT MD 11/28/2018 Last Documented On 9 3:48AM ; [facility] Bipolar I disorder GENERAL OFFICE VISIT with MET LEONIDES VINCENT MD 11/28/2018 Last Documented On 9 3:48AM ; [facility] Dementia GENERAL OFFICE VISIT with ROBERT VINCENT MD 11/28/2018 Last Documented On 9 3:48AM ; [facility] Depressive disorder GENERAL OFFICE VISIT with ME MARI VINCENT MD 11/28/2018 Last Documented On 9 3:48AM ; [facility] Generalized anxiety disorder GENERAL OFF ICE VISIT with EILEEN VINCENT MD 11/28/2018 Last Documented On 9 3:48AM ; [facility] Psychophysiological insomnia GENERAL OFF ICE VISIT with EILEEN VINCENT MD 11/28/2018 Last Documented On 9 3:48AM ; [facility] Bipolar I disorder * PHONE CALL with EILEEN VINCENT MD 09/24/2018 Last Documented On 9 1:32PM ; [facility] Adult attention deficit hype ractivity disorder GENERAL OFFICE VISIT with EILEEN VINCENT MD 06/12/2018 Last Documented On 8 6:20AM ; [facility] Bipolar I disorder GENERAL OFFICE VISIT with MET LEONIDES VINCENT MD 06/12/2018 Last Documented On 8 6:20AM ; [facility] Dementia GENERAL OFFICE VISIT with ROBERT VINCENT MD 06/12/2018 Last Documented On 8 6:20AM ; [facility] Depressive disorder GENERAL OFFICE VISIT with ME MARI VINCENT MD 06/12/2018 Last Documented On 8 6:20AM ; [facility] Generalized anxiety disorder GENERAL OFF ICE VISIT with EILEEN VINCENT MD 06/12/2018 Last Documented On 8 6:20AM ; [facility] Psychophysiological insomnia GENERAL OFF ICE VISIT with EILEEN VINCENT MD 06/12/2018 Last Documented On 8 6:20AM ; [facility] Adult attention deficit hype ractivity disorder * PHONE CALL with EILEEN VINCENT MD 04/09/2018 Last Documented On 8 5:48PM ; [facility] Adult attention deficit hype ractivity disorder GENERAL OFFICE VISIT with EILEEN VINCENT MD 01/03/2018 Last Documented On 8 9:42PM ; [facility] Bipolar I disorder GENERAL OFFICE VISIT with MET LEONIDES VINCENT MD 01/03/2018 Last Documented On 8 9:42PM ; [facility] Dementia GENERAL OFFICE VISIT with ROBERT VINCENT MD 01/03/2018 Last Documented On 8 9:42PM ; [facility] Generalized anxiety disorder GENERAL OFF ICE VISIT with EILEEN VINCENT MD 01/03/2018 Last Documented On 8 9:42PM ; [facility] Psychophysiological insomnia GENERAL OFF ICE VISIT with EILEEN VINCENT MD 01/03/2018 Last Documented On 8 9:42PM ; [facility] Adult attention deficit hype ractivity disorder GENERAL OFFICE VISIT with EILEEN VINCENT MD 09/06/2017 Last Documented On 8 7:38AM ; [facility] Bipolar I disorder GENERAL OFFICE VISIT with MET LEONIDES VINCENT MD 09/06/2017 Last Documented On 8 7:38AM ; [facility] Dementia GENERAL OFFICE VISIT with ROBERT VINCENT MD 09/06/2017 Last Documented On 8 7:38AM ; [facility] Generalized anxiety disorder GENERAL OFF ICE VISIT with EILEEN VINCENT MD 09/06/2017 Last Documented On 8 7:38AM ; [facility] Psychophysiological insomnia GENERAL OFF ICE VISIT with EILEEN VINCENT MD 09/06/2017 Last Documented On 8 7:38AM ; [facility] Adult attention deficit hype ractivity disorder * PHONE CALL with EILEEN VINCENT MD 06/04/2017 Last Documented On 7 10:52AM ; [facility] Adult attention deficit hype ractivity disorder GENERAL OFFICE VISIT with EILEEN VINCENT MD 05/09/2017 Last Documented On 7 8:05AM ; [facility] Bipolar I disorder GENERAL OFFICE VISIT with MET LEONIDES VINCENT MD 05/09/2017 Last Documented On 7 8:05AM ; [facility] Dementia GENERAL OFFICE VISIT with ROBERT VINCENT MD 05/09/2017 Last Documented On 7 8:05AM ; [facility] Generalized anxiety disorder GENERAL OFF ICE VISIT with EILEEN VINCENT MD 05/09/2017 Last Documented On 7 8:05AM ; [facility] Psychophysiological insomnia GENERAL OFF ICE VISIT with EILEEN VINCENT MD 05/09/2017 Last Documented On 7 8:05AM ; [facility] Adult attention deficit hype ractivity disorder * PHONE CALL with EILEEN VINCENT MD 05/07/2017 Last Documented On 7 12:21PM ; [facility] Adult attention deficit hype ractivity disorder GENERAL OFFICE VISIT with EILEEN VINCENT MD 04/06/2017 Last Documented On 7 2:27AM ; [facility] Bipolar I disorder GENERAL OFFICE VISIT with MET LEONIDES VINCENT MD 04/06/2017 Last Documented On 7 2:27AM ; [facility] Dementia GENERAL OFFICE VISIT with ROBERT VINCENT MD 04/06/2017 Last Documented On 7 2:27AM ; [facility] Generalized anxiety disorder GENERAL OFF ICE VISIT with EILEEN VINCENT MD 04/06/2017 Last Documented On 7 2:27AM ; [facility] Psychophysiological insomnia GENERAL OFF ICE VISIT with EILEEN VINCENT MD 04/06/2017 Last Documented On 7 2:27AM ; [facility] Adult attention deficit hype ractivity disorder * PHONE CALL with EILEEN VINCENT MD 02/12/2017 Last Documented On 7 11:40AM ; [facility] Adult attention deficit hype ractivity disorder GENERAL OFFICE VISIT with EILEEN VINCENT MD 01/16/2017 Last Documented On 7 11:36AM ; [facility] Bipolar I disorder GENERAL OFFICE VISIT with MET LEONIDES VINCENT MD 01/16/2017 Last Documented On 7 11:36AM ; [facility] Dementia GENERAL OFFICE VISIT with ROBERT VINCENT MD 01/16/2017 Last Documented On 7 11:36AM ; [facility] Generalized anxiety disorder GENERAL OFF ICE VISIT with EILEEN VINCENT MD 01/16/2017 Last Documented On 7 11:36AM ; [facility] Psychophysiological insomnia GENERAL OFF ICE VISIT with EILEEN VINCENT MD 01/16/2017 Last Documented On 7 11:36AM ; [facility] Bipolar I disorder GENERAL OFFICE VISIT with MET LEONIDES VINCENT MD 10/12/2016 Last Documented On 7 4:03PM ; [facility] Dementia GENERAL OFFICE VISIT with ROBERT VINCENT MD 10/12/2016 Last Documented On 7 4:03PM ; [facility] Generalized anxiety disorder GENERAL OFF ICE VISIT with EILEEN VINCENT MD 10/12/2016 Last Documented On 7 4:03PM ; [facility] Psychophysiological insomnia GENERAL OFF ICE VISIT with EILEEN VINCENT MD 10/12/2016 Last Documented On 7 4:03PM ; [facility] Bipolar I disorder GENERAL OFFICE VISIT with MET LEONIDES VINCENT MD 08/01/2016 Last Documented On 6 3:13PM ; [facility] Dementia GENERAL OFFICE VISIT with ROBERT VINCENT MD 08/01/2016 Last Documented On 6 3:13PM ; [facility] Generalized anxiety disorder GENERAL OFF ICE VISIT with EILEEN VINCENT MD 08/01/2016 Last Documented On 6 3:13PM ; [facility] Persistent insomnia GENERAL OFFICE VISIT with ME MARI VINCENT MD 08/01/2016 Last Documented On 6 3:13PM ; [facility] Bipolar I disorder GENERAL OFFICE VISIT with MET LEONIDES VINCENT MD 03/13/2016 Last Documented On 6 7:20AM ; [facility] Dementia GENERAL OFFICE VISIT with ROBERT VINCENT MD 03/13/2016 Last Documented On 6 7:20AM ; [facility] Generalized anxiety disorder GENERAL OFF ICE VISIT with EILEEN VINCENT MD 03/13/2016 Last Documented On 6 7:20AM ; [facility] Persistent insomnia GENERAL OFFICE VISIT with ME MARI VINCENT MD 03/13/2016 Last Documented On 6 7:20AM ; [facility] Bipolar I disorder GENERAL OFFICE VISIT with MET LEONIDES VINCENT MD 11/10/2015 Last Documented On 6 11:24AM ; [facility] Dementia GENERAL OFFICE VISIT with ROBERT VINCENT MD 11/10/2015 Last Documented On 6 11:24AM ; [facility] Generalized anxiety disorder GENERAL OFF ICE VISIT with EILEEN VINCENT MD 11/10/2015 Last Documented On 6 11:24AM ; [facility] Persistent insomnia GENERAL OFFICE VISIT with ME MARI VINCENT MD 11/10/2015 Last Documented On 6 11:24AM ; [facility] Bipolar I disorder GENERAL OFFICE VISIT with MET LEONIDES VINCENT MD 07/29/2015 Last Documented On 5 9:27PM ; [facility] Dementia GENERAL OFFICE VISIT with ROBERT VINCENT MD 07/29/2015 Last Documented On 5 9:27PM ; [facility] Generalized anxiety disorder GENERAL OFF ICE VISIT with EILEEN VINCENT MD 07/29/2015 Last Documented On 5 9:27PM ; [facility] Persistent insomnia GENERAL OFFICE VISIT with ME MARI VINCENT MD 07/29/2015 Last Documented On 5 9:27PM ; [facility] Bipolar I disorder GENERAL OFFICE VISIT with MET LEONIDES VINCENT MD 05/24/2015 Last Documented On 5 12:29PM ; [facility] Dementia GENERAL OFFICE VISIT with ROBERT VINCENT MD 05/24/2015 Last Documented On 5 12:29PM ; [facility] Generalized anxiety disorder GENERAL OFF ICE VISIT with EILEEN VINCENT MD 05/24/2015 Last Documented On 5 12:29PM ; [facility] Persistent insomnia GENERAL OFFICE VISIT with ME MARI VINCENT MD 05/24/2015 Last Documented On 5 12:29PM ; [facility] Bipolar I disorder, most rec ent episode, depressed GENERAL OFFICE VISIT with EILEEN VINCENT MD 01/28/2015 Last Documented On 5 10:16PM ; [facility] Generalized anxiety disorder GENERAL OFF ICE VISIT with EILEEN VINCENT MD 01/28/2015 Last Documented On 5 10:16PM ; [facility] Obstructive sleep apnea GENERAL OFFICE VISIT wit h EILEEN VINCENT MD 01/28/2015 Last Documented On 5 10:16PM ; [facility] Persistent insomnia GENERAL OFFICE VISIT with ME MARI VINCENT MD 01/28/2015 Last Documented On 5 10:16PM ; [facility]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 VINCENT MD 01/28/2015 Last Documented On 5 10:16PM ; [facility] Restless legs syndrome GENERAL OFFICE VISIT with EILEEN VINCENT MD 01/28/2015 Last Documented On 5 10:16PM ; [facility] Bipolar I disorder, most rec ent episode, depressed GENERAL OFFICE VISIT with EILEEN VINCENT MD 10/15/2014 Last Documented On 5 6:55AM ; [facility] Generalized anxiety disorder GENERAL OFF ICE VISIT with EILEEN VINCENT MD 10/15/2014 Last Documented On 5 6:55AM ; [facility] Obstructive sleep apnea GENERAL OFFICE VISIT wit h EILEEN VINCENT MD 10/15/2014 Last Documented On 5 6:55AM ; [facility] Persistent insomnia GENERAL OFFICE VISIT with ME MARI VINCENT MD 10/15/2014 Last Documented On 5 6:55AM ; [facility]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 VINCENT MD 10/15/2014 Last Documented On 5 6:55AM ; [facility] Restless legs syndrome GENERAL OFFICE VISIT with EILEEN VINCENT MD 10/15/2014 Last Documented On 5 6:55AM ; [facility] Bipolar I disorder, most rec ent episode, depressed GENERAL OFFICE VISIT with EILEEN VINCENT MD 07/16/2014 Last Documented On 4 8:07PM ; [facility] Generalized anxiety disorder GENERAL OFF ICE VISIT with EILEEN VINCENT MD 07/16/2014 Last Documented On 4 8:07PM ; [facility] Obstructive sleep apnea GENERAL OFFICE VISIT wit h EILEEN VINCENT MD 07/16/2014 Last Documented On 4 8:07PM ; [facility] Persistent insomnia GENERAL OFFICE VISIT with ME MARI VINCENT MD 07/16/2014 Last Documented On 4 8:07PM ; [facility]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 VINCENT MD 07/16/2014 Last Documented On 4 8:07PM ; [facility] Restless legs syndrome GENERAL OFFICE VISIT with EILEEN VINCENT MD 07/16/2014 Last Documented On 4 8:07PM ; [facility] Bipolar I disorder, most rec ent episode, depressed GENERAL OFFICE VISIT with EILEEN VINCENT MD 06/01/2014 Last Documented On 4 10:05AM ; [facility] Generalized anxiety disorder GENERAL OFF ICE VISIT with EILEEN VINCENT MD 06/01/2014 Last Documented On 4 10:05AM ; [facility] Obstructive sleep apnea GENERAL OFFICE VISIT wit h EILEEN VINCENT MD 06/01/2014 Last Documented On 4 10:05AM ; [facility] Persistent insomnia GENERAL OFFICE VISIT with ME MARI VINCENT MD 06/01/2014 Last Documented On 4 10:05AM ; [facility]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 VINCENT MD 06/01/2014 Last Documented On 4 10:05AM ; [facility] Restless legs syndrome GENERAL OFFICE VISIT with EILEEN VINCENT MD 06/01/2014 Last Documented On 4 10:05AM ; [facility] Bipolar I disorder, most rec ent episode, depressed GENERAL OFFICE VISIT with EILEEN VINCENT MD 04/30/2014 Last Documented On 4 10:29PM ; [facility] Generalized anxiety disorder GENERAL OFF ICE VISIT with EILEEN VINCENT MD 04/30/2014 Last Documented On 4 10:29PM ; [facility] Obstructive sleep apnea GENERAL OFFICE VISIT wit h EILEEN VINCENT MD 04/30/2014 Last Documented On 4 10:29PM ; [facility] Persistent insomnia GENERAL OFFICE VISIT with ME MARI VINCENT MD 04/30/2014 Last Documented On 4 10:29PM ; [facility]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 VINCENT MD 04/30/2014 Last Documented On 4 10:29PM ; [facility] Restless legs syndrome GENERAL OFFICE VISIT with EILEEN VINCENT MD 04/30/2014 Last Documented On 4 10:29PM ; [facility] Bipolar I disorder, most rec ent episode, depressed GENERAL OFFICE VISIT with EILEEN VINCENT MD 04/07/2014 Last Documented On 4 10:43PM ; [facility] Generalized anxiety disorder GENERAL OFF ICE VISIT with EILEEN VINCENT MD 04/07/2014 Last Documented On 4 10:43PM ; [facility] Obstructive sleep apnea GENERAL OFFICE VISIT wit h EILEEN VINCENT MD 04/07/2014 Last Documented On 4 10:43PM ; [facility] Persistent insomnia GENERAL OFFICE VISIT with ME MARI VINCENT MD 04/07/2014 Last Documented On 4 10:43PM ; [facility]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 VINCENT MD 04/07/2014 Last Documented On 4 10:43PM ; [facility] Restless legs syndrome GENERAL OFFICE VISIT with EILEEN VINCENT MD 04/07/2014 Last Documented On 4 10:43PM ; [facility] Bipolar I disorder, most rec ent episode, depressed GENERAL OFFICE VISIT with EILEEN VINCENT MD 02/09/2014 Last Documented On 4 9:33PM ; [facility] Generalized anxiety disorder GENERAL OFF ICE VISIT with EILEEN VINCENT MD 02/09/2014 Last Documented On 4 9:33PM ; [facility] Obstructive sleep apnea GENERAL OFFICE VISIT wit h EILEEN VINCENT MD 02/09/2014 Last Documented On 4 9:33PM ; [facility] Persistent insomnia GENERAL OFFICE VISIT with ME MARI VINCENT MD 02/09/2014 Last Documented On 4 9:33PM ; [facility]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 VINCENT MD 02/09/2014 Last Documented On 4 9:33PM ; [facility] Restless legs syndrome GENERAL OFFICE VISIT with EILEEN VINCENT MD 02/09/2014 Last Documented On 4 9:33PM ; [facility] Bipolar I disorder, most rec ent episode, depressed GENERAL OFFICE VISIT with EILEEN VINCENT MD 11/21/2013 Last Documented On 4 9:57PM ; [facility] Generalized anxiety disorder GENERAL OFF ICE VISIT with EILEEN VINCENT MD 11/21/2013 Last Documented On 4 9:57PM ; [facility] Obstructive sleep apnea GENERAL OFFICE VISIT wit h EILEEN VINCENT MD 11/21/2013 Last Documented On 4 9:57PM ; [facility] Persistent insomnia GENERAL OFFICE VISIT with ME MARI VINCENT MD 11/21/2013 Last Documented On 4 9:57PM ; [facility]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 VINCENT MD 11/21/2013 Last Documented On 4 9:57PM ; [facility] Restless legs syndrome GENERAL OFFICE VISIT with EILEEN VINCENT MD 11/21/2013 Last Documented On 4 9:57PM ; [facility] Bipolar I disorder, most rec ent episode, depressed GENERAL OFFICE VISIT with EILEEN VINCENT MD 10/23/2013 Last Documented On 4 8:27PM ; [facility] Generalized anxiety disorder GENERAL OFF ICE VISIT with EILEEN VINCENT MD 10/23/2013 Last Documented On 4 8:27PM ; [facility] Obstructive sleep apnea GENERAL OFFICE VISIT wit h EILEEN VINCENT MD 10/23/2013 Last Documented On 4 8:27PM ; [facility]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 VINCENT MD 10/23/2013 Last Documented On 4 8:27PM ; [facility] Restless legs syndrome GENERAL OFFICE VISIT with EILEEN VINCENT MD 10/23/2013 Last Documented On 4 8:27PM ; [facility] Bipolar I disorder, most rec ent episode, depressed GENERAL OFFICE VISIT with EILEEN VINCENT MD 07/28/2013 Last Documented On 3 10:13PM ; [facility] Generalized anxiety disorder GENERAL OFF ICE VISIT with EILEEN VINCENT MD 07/28/2013 Last Documented On 3 10:13PM ; [facility] Obstructive sleep apnea GENERAL OFFICE VISIT wit h EILEEN VINCENT MD 07/28/2013 Last Documented On 3 10:13PM ; [facility]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 VINCENT MD 07/28/2013 Last Documented On 3 10:13PM ; [facility] Restless legs syndrome GENERAL OFFICE VISIT with EILEEN VINCENT MD 07/28/2013 Last Documented On 3 10:13PM ; [facility] Bipolar I disorder, most rec ent episode, depressed GENERAL OFFICE VISIT with EILEEN VNICENT MD 05/07/2013 Last Documented On 3 9:22PM ; [facility] Generalized anxiety disorder GENERAL OFF ICE VISIT with EILEEN VINCENT MD 05/07/2013 Last Documented On 3 9:22PM ; [facility] Obstructive sleep apnea GENERAL OFFICE VISIT wit h EILEEN VINCENT MD 05/07/2013 Last Documented On 3 9:22PM ; [facility]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 VINCENT MD 05/07/2013 Last Documented On 3 9:22PM ; [facility] Bipolar I disorder, most rec ent episode, depressed GENERAL OFFICE VISIT with EILEEN VINCENT MD 01/28/2013 Last Documented On 3 8:27PM ; [facility] Generalized anxiety disorder GENERAL OFF ICE VISIT with EILEEN VINCENT MD 01/28/2013 Last Documented On 3 8:27PM ; [facility]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 VINCENT MD 01/28/2013 Last Documented On 3 8:27PM ; [facility] Bipolar I disorder, most rec ent episode, depressed GENERAL OFFICE VISIT with EILEEN VINCENT MD 11/08/2012 Last Documented On 3 4:16PM ; [facility] Generalized anxiety disorder GENERAL OFF ICE VISIT with EILEEN VINCENT MD 11/08/2012 Last Documented On 3 4:16PM ; [facility]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 VINCENT MD 11/08/2012 Last Documented On 3 4:16PM ; [facility] Bipolar I disorder, most rec ent episode, depressed GENERAL OFFICE VISIT with EILEEN VINCENT MD 09/04/2012 Last Documented On 3 8:57PM ; [facility] Generalized anxiety disorder GENERAL OFF ICE VISIT with EILEEN VINCENT MD 09/04/2012 Last Documented On 3 8:57PM ; [facility]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 VINCENT MD 09/04/2012 Last Documented On 3 8:57PM ; [facility] Bipolar I disorder, most rec ent episode, depressed - severe GENERAL OFFICE VISIT with EILEEN VINCENT MD 08/07/2012 Last Documented On 2 5:42PM ; [facility] Generalized anxiety disorder GENERAL OFF ICE VISIT with EILEEN VINCENT MD 08/07/2012 Last Documented On 2 5:42PM ; [facility]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, uncomplicated GENERA L OFFICE VISIT with EILEEN VINCENT MD 08/07/2012 Last Documented On 2 5:42PM ; [facility] Instructions Includes: Instructions for all patient encounters Instructions to patient Lose weight - pt gained 7 lb s since last seen Last Documented On 2 12:51PM ; [facility] Lose weight Last Documented On 1 11:32AM ; [facility] Lose weight Last Documented On 1 11:48AM ; [facility] Lose weight Last Documented On 1 12:04PM ; [facility] Lose weight Last Documented On 1 11:25AM ; [facility] Lose weight Last Documented On 0 11:49AM ; [facility] Education and Decision Aids were provided during visit for: Patient counseling I discuss ed risk, benefits, and side effects of sleep aid - Belsomra - including the possibility of sleep related behaviors i.e. sleepwalking, sleeptalking, sleepdriving, etc... Pt verbalized understanding. So far, pt denied sleep related behaviors Last Documented On 3 12:52AM ; [facility] Discussed good sleep hygiene habits Last Documented On 3 11:27AM ; [facility] I recommended cognitive exer cises such as reading and/or word search puzzles, etc.. Last Documented On 3 11:51PM ; [facility] Patient education about medi cation ---Education was given on medication(s) and diagnosis. I reviewed the risks, benefits and side effects of patient's medications Last Documented On 2 11:24AM ; [facility] Discussed calming techniques such as breathing exercises and other relaxation techniques Last Documented On 2 11:24AM ; [facility] Counseling for nutrition/teresa ght management provided Last Documented On 2 11:45AM ; [facility] Discussed good sleep hygiene habits Last Documented On 2 11:45AM ; [facility] I recommended cognitive exer cises such as reading and/or word search puzzles, etc.. Last Documented On 2 12:49PM ; [facility] Patient education about medi cation --- I educated patient on medication(s) and diagnosis. I reviewed the risks, benefits and side effects of patient's medications Last Documented On 2 11:01AM ; [facility] Discussed calming techniques such as breathing exercises and other relaxation techniques Last Documented On 2 11:01AM ; [facility] Discussed good sleep hygiene habits Last Documented On 2 11:48AM ; [facility] Patient education about medi cation --- I educated patient on medication(s) and diagnosis. I reviewed the risks, benefits and side effects of patient's medications Last Documented On 2 11:15AM ; [facility] Discussed calming techniques such as breathing exercises and other relaxation techniques Last Documented On 2 11:15AM ; [facility] Discussed good sleep hygiene habits Last Documented On 2 11:20AM ; [facility] I recommended cognitive exer cises such as reading and/or word search puzzles, etc.. Last Documented On 2 7:56AM ; [facility] Patient education about medi cation --- I educated patient on medication(s) and diagnosis. I reviewed the risks, benefits and side effects of patient's medications Last Documented On 1 11:29AM ; [facility] Discussed calming techniques such as breathing exercises and other relaxation techniques Last Documented On 1 11:29AM ; [facility] Counseling for nutrition/teresa ght management provided Last Documented On 11:32AM ; [facility] Patient education about medi cation --- I educated patient on medication(s) and diagnosis. I reviewed the risks, benefits and side effects of patient's medications Last Documented On 1 11:37AM ; [facility] Discussed calming techniques such as breathing exercises and other relaxation techniques Last Documented On 1 11:37AM ; [facility] Counseling for nutrition/teresa ght management provided Last Documented On 1 11:48AM ; [facility] Discussed good sleep hygiene habits Last Documented On 1 11:48AM ; [facility] Patient education about medi cation --- I educated patient on medication(s) and diagnosis. I reviewed the risks, benefits and side effects of patient's medications Last Documented On 1 12:03PM ; [facility] Discussed calming techniques such as breathing exercises and other relaxation techniques Last Documented On 1 12:03PM ; [facility] Counseling for nutrition/teresa ght management provided Last Documented On 1 12:04PM ; [facility] Discussed good sleep hygiene habits Last Documented On 1 12:04PM ; [facility] I recommended cognitive exer cises such as reading and/or word search puzzles, etc.. Last Documented On 1 1:53PM ; [facility] Patient education about medi cation --- I educated patient on medication(s) and diagnosis. I reviewed the risks, benefits and side effects of patient's medications Last Documented On 1 11:24AM ; [facility] Discussed calming techniques such as breathing exercises and other relaxation techniques Last Documented On 1 11:24AM ; [facility] Counseling for nutrition/teresa ght management provided Last Documented On 1 11:25AM ; [facility] I recommended cognitive exer cises such as reading and/or word search puzzles, etc.. Last Documented On 1 11:29AM ; [facility] Patient education about medi cation --- I educated patient on medication(s) and diagnosis. I reviewed the risks, benefits and side effects of patient's medications Last Documented On 0 11:14AM ; [facility] Discussed calming techniques such as breathing exercises and other relaxation techniques Last Documented On 0 11:14AM ; [facility] Counseling for nutrition/teresa ght management provided Last Documented On 0 11:49AM ; [facility] Patient education about a pr oper diet Last Documented On 0 11:24AM ; [facility] Patient education about medi cation --- I educated patient on medication(s) and diagnosis. I reviewed the risks, benefits and side effects of patient's medications Last Documented On 0 11:05AM ; [facility] Discussed calming techniques such as breathing exercises and other relaxation techniques Last Documented On 0 11:05AM ; [facility] Counseling for nutrition/teresa ght management provided Last Documented On 0 11:24AM ; [facility] I recommended cognitive exer cises such as reading and/or word search puzzles, etc.. Last Documented On 0 11:34PM ; [facility] Patient education about a pr oper diet Last Documented On 0 11:45AM ; [facility] Patient education about medi cation --- I educated patient on medication(s) and diagnosis. I reviewed the risks, benefits and side effects of patient's medications Last Documented On 0 11:12AM ; [facility] Discussed calming techniques such as breathing exercises and other relaxation techniques Last Documented On 0 11:12AM ; [facility] Counseling for nutrition/teresa ght management provided Last Documented On 0 11:45AM ; [facility] Discussed good sleep hygiene habits Last Documented On 0 2:21AM ; [facility] I recommended cognitive exer cises such as reading and/or word search puzzles, etc.. Last Documented On 0 2:21AM ; [facility] Patient education about a pr oper diet Last Documented On 9 1:50PM ; [facility] Patient education about medi cation --- I educated patient on medication(s) and diagnosis. I reviewed the risks, benefits and side effects of patient's medications Last Documented On 9 1:29PM ; [facility] Discussed calming techniques such as breathing exercises and other relaxation techniques Last Documented On 9 1:29PM ; [facility] Counseling for nutrition/teresa ght management provided Last Documented On 9 1:50PM ; [facility] I recommended cognitive exer cises such as reading and/or word search puzzles, etc.. Last Documented On 9 11:01PM ; [facility] Patient education about a pr oper diet Last Documented On 9 4:10PM ; [facility] Patient education about medi cation --- I educated patient on medication(s) and diagnosis. I reviewed the risks, benefits and side effects of patient's medications Last Documented On 9 3:38PM ; [facility] Discussed calming techniques such as breathing exercises and other relaxation techniques Last Documented On 9 3:38PM ; [facility] Counseling for nutrition/teresa ght management provided Last Documented On 9 4:10PM ; [facility] Discussed good sleep hygiene habits Last Documented On 9 3:37AM ; [facility] I recommended cognitive exer cises such as reading and/or word search puzzles, etc.. Last Documented On 9 3:37AM ; [facility] Patient education about a pr oper diet Last Documented On 8 2:31PM ; [facility] Patient education about medi cation --- I educated patient on medication(s) and diagnosis. I reviewed the risks, benefits and side effects of patient's medications Last Documented On 8 2:26PM ; [facility] Discussed calming techniques such as breathing exercises and other relaxation techniques Last Documented On 8 2:26PM ; [facility] Counseling for nutrition/teresa ght management provided Last Documented On 8 2:31PM ; [facility] I recommended cognitive exer cises such as reading and/or word search puzzles, etc.. Last Documented On 8 6:02AM ; [facility] Patient education about medi cation --- I educated patient on medication(s) and diagnosis. I reviewed the risks, benefits and side effects of patient's medications Last Documented On 8 11:13AM ; [facility] Discussed calming techniques such as breathing exercises and other relaxation techniques Last Documented On 8 11:13AM ; [facility] Counseling for nutrition/teresa ght management provided Last Documented On 8 9:42PM ; [facility] I recommended cognitive exer cises such as reading and/or word search puzzles, etc.. Last Documented On 8 9:42PM ; [facility] Patient education about medi cation --- I educated patient on medication(s) and diagnosis. I reviewed the risks, benefits and side effects of patient's medications Last Documented On 8 10:54AM ; [facility] Discussed calming techniques such as breathing exercises and other relaxation techniques Last Documented On 8 10:54AM ; [facility] Counseling for nutrition/teresa ght management provided Last Documented On 8 7:35AM ; [facility] I recommended cognitive exer cises such as reading and/or word search puzzles, etc.. Last Documented On 8 7:35AM ; [facility] Patient education about medi cation --- I educated patient on medication(s) and diagnosis. I reviewed the risks, benefits and side effects of patient's medications Last Documented On 7 11:30AM ; [facility] Discussed calming techniques such as breathing exercises and other relaxation techniques Last Documented On 7 11:30AM ; [facility] Counseling for nutrition/teresa ght management provided Last Documented On 7 8:02AM ; [facility] I recommended cognitive exer cises such as reading and/or word search puzzles, etc.. Last Documented On 7 8:02AM ; [facility] Patient education about medi cation --- I educated patient on medication(s) and diagnosis. I reviewed the risks, benefits and side effects of patient's medications Last Documented On 7 11:17AM ; [facility] Discussed calming techniques such as breathing exercises and other relaxation techniques Last Documented On 7 11:17AM ; [facility] Counseling for nutrition/teresa ght management provided Last Documented On 7 2:20AM ; [facility] I recommended cognitive exer cises such as reading and/or word search puzzles, etc.. Last Documented On 7 2:20AM ; [facility] Patient education about medi cation --- I educated patient on medication(s) and diagnosis. I reviewed the risks, benefits and side effects of patient's medications Last Documented On 7 10:24AM ; [facility] Discussed calming techniques such as breathing exercises and other relaxation techniques Last Documented On 7 10:24AM ; [facility] Counseling for nutrition/teresa ght management provided Last Documented On 7 11:32AM ; [facility] Discussed good sleep hygiene habits Last Documented On 7 11:32AM ; [facility] I recommended cognitive exer cises such as reading and/or word search puzzles, etc.. Last Documented On 7 11:32AM ; [facility] Patient education about medi cation --- I educated patient on medication(s) and diagnosis. I reviewed the risks, benefits and side effects of patient's medications Last Documented On 7 10:41AM ; [facility] Discussed calming techniques such as breathing exercises/meditation and other relaxation techniques Last Documented On 7 10:41AM ; [facility] Counseling for nutrition/teresa ght management provided Last Documented On 7 3:51PM ; [facility] Discussed good sleep hygiene habits Last Documented On 7 3:51PM ; [facility] I recommended cognitive exer cises such as reading and/or word search puzzles, etc.. Last Documented On 7 3:51PM ; [facility] Patient education about medi cation --- I educated patient on medication(s) and diagnosis. I reviewed the risks, benefits and side effects of patient's medications Last Documented On 6 9:31AM ; [facility] Discussed calming techniques such as breathing exercises/meditation and other relaxation techniques Last Documented On 6 9:31AM ; [facility] Counseling for nutrition/teresa ght management provided Last Documented On 6 3:01PM ; [facility] Discussed good sleep hygiene habits Last Documented On 6 3:01PM ; [facility] I recommended cognitive exer cises such as reading and/or word search puzzles, etc.. Last Documented On 6 3:01PM ; [facility] Patient education about medi cation --- I educated patient on medication(s) and diagnosis. I reviewed the risks, benefits and side effects of patient's medications Last Documented On 6 9:46AM ; [facility] Discussed calming techniques such as breathing exercises/meditation and other relaxation techniques Last Documented On 6 9:46AM ; [facility] Counseling for nutrition/teresa ght management provided Last Documented On 6 7:20AM ; [facility] Discussed good sleep hygiene habits Last Documented On 6 7:20AM ; [facility] Patient education about medi cation --- I educated patient on medication(s) and diagnosis. I reviewed the risks, benefits and side effects of patient's medications Last Documented On 6 9:53AM ; [facility] Discussed calming techniques such as breathing exercises/meditation and other relaxation techniques Last Documented On 6 9:53AM ; [facility] Counseling for nutrition/teresa ght management provided Last Documented On 6 11:01AM ; [facility] Patient education about medi cation --- I educated patient on medication(s) and diagnosis. I reviewed the risks, benefits and side effects of patient's medications Last Documented On 5 9:52AM ; [facility] Discussed calming techniques such as breathing exercises/meditation and other relaxation techniques Last Documented On 5 9:52AM ; [facility] Counseling for nutrition/teresa ght management provided Last Documented On 5 9:26PM ; [facility] Patient education about medi cation --- I educated patient on medication(s) and diagnosis. I reviewed the risks, benefits and side effects of patient's medications Last Documented On 5 10:19AM ; [facility] Discussed calming techniques such as breathing exercises/meditation and other relaxation techniques Last Documented On 5 10:19AM ; [facility] Counseling for nutrition/teresa ght management provided Last Documented On 5 12:29PM ; [facility] Patient education about medi cation --- I educated patient on medication(s) and diagnosis. I reviewed the risks, benefits and side effects of patient's medications Last Documented On 5 10:10PM ; [facility] Discussed calming techniques such as breathing exercises/meditation and other relaxation techniques Last Documented On 5 10:56AM ; [facility] Counseling for nutrition/teresa ght management provided Last Documented On 5 10:10PM ; [facility] Patient education about medi cation --- I educated patient on medication(s) and diagnosis. I reviewed the risks, benefits and side effects of patient's medications Last Documented On 5 6:47AM ; [facility] Discussed calming techniques such as breathing exercises/meditation and other relaxation techniques Last Documented On 5 11:14AM ; [facility] Counseling for nutrition/teresa ght management provided Last Documented On 5 6:47AM ; [facility] I recommended cognitive exer cises such as reading and/or word search puzzles, etc.. Last Documented On 5 6:47AM ; [facility] Patient education about medi cation --- I educated patient on medication(s) and diagnosis. I reviewed the risks, benefits and side effects of patient's medications Last Documented On 4 7:59PM ; [facility] Discussed calming techniques such as breathing exercises/meditation and other relaxation techniques Last Documented On 4 10:03AM ; [facility] Counseling for nutrition/teresa ght management provided Last Documented On 4 7:59PM ; [facility] I recommended cognitive exer cises such as reading and/or word search puzzles, etc.. Last Documented On 4 7:59PM ; [facility] Patient education about medi cation --- I educated patient on medication(s) and diagnosis. I reviewed the risks, benefits and side effects of patient's medications Last Documented On 4 10:04AM ; [facility] Discussed calming techniques such as breathing exercises/meditation and other relaxation techniques Last Documented On 4 9:26AM ; [facility] Counseling for nutrition/teresa ght management provided Last Documented On 4 10:04AM ; [facility] Patient education about medi cation --- I educated patient on medication(s) and diagnosis. I reviewed the risks, benefits and side effects of patient's medications Last Documented On 4 10:25PM ; [facility] Discussed calming techniques such as breathing exercises/meditation and other relaxation techniques Last Documented On 4 8:59AM ; [facility] Patient education about medi cation --- I educated patient on medication(s) and diagnosis. I reviewed the risks, benefits and side effects of patient's medications Last Documented On 4 10:40PM ; [facility] Discussed calming techniques such as breathing exercises/meditation and other relaxation techniques Last Documented On 4 2:19PM ; [facility] Counseling for nutrition/teresa ght management provided Last Documented On 4 10:40PM ; [facility] Patient education about medi cation --- I educated patient on medication(s) and diagnosis. I reviewed the risks, benefits and side effects of patient's medications.--no rash from Lamictal so far Last Documented On 4 9:29PM ; [facility] Discussed calming techniques such as breathing exercises/meditation and other relaxation techniques Last Documented On 4 2:46PM ; [facility] Counseling for nutrition/teresa ght management provided Last Documented On 4 9:29PM ; [facility] Patient education about medi cation --- I educated patient on medication(s) and diagnosis. I reviewed the risks, benefits and side effects of patient's medications including the possibility of SJS rash with Lamictal Last Documented On 4 9:56PM ; [facility] Discussed calming techniques such as breathing exercises/meditation and other relaxation techniques Last Documented On 4 3:16PM ; [facility] Counseling for nutrition/teresa ght management provided Last Documented On 4 9:56PM ; [facility] Patient education about medi cation --- I educated patient on medication(s) and diagnosis. I reviewed the risks, benefits and side effects of patient's medications Last Documented On 4 8:18PM ; [facility] Discussed calming techniques such as breathing exercises/meditation and other relaxation techniques Last Documented On 4 1:56PM ; [facility] Counseling for nutrition/teresa ght management provided Last Documented On 4 8:18PM ; [facility] Patient education about medi cation --- I educated patient on medication(s) and diagnosis Last Documented On 3 3:56PM ; [facility] Discussed calming techniques such as breathing exercises/meditation and other relaxation techniques Last Documented On 3 2:43PM ; [facility] Counseling for nutrition/teresa ght management provided Last Documented On 3 3:56PM ; [facility] Discussed good sleep hygiene habits Last Documented On 3 3:56PM ; [facility] I recommended cognitive exer cises such as reading and/or word search puzzles, etc.. Last Documented On 3 10:08PM ; [facility] Patient education about medi cation --- I educated patient on medication(s) and diagnosis Last Documented On 3 9:12PM ; [facility] Discussed calming techniques such as breathing exercises/meditation and other relaxation techniques Last Documented On 3 2:56PM ; [facility] Counseling for nutrition/teresa ght management provided Last Documented On 3 9:12PM ; [facility] Reviewed side effects and Ri sks/Benefits analysis Last Documented On 3 9:12PM ; [facility] I recommended cognitive exer cises such as reading and/or word search puzzles, etc.. Last Documented On 3 9:12PM ; [facility] Patient education about medi cation --- I educated patient on medication(s) and diagnosis Last Documented On 3 8:15PM ; [facility] Discussed calming techniques such as breathing exercises/meditation and other relaxation techniques Last Documented On 3 3:51PM ; [facility] Patient education about medi cation --- I educated patient on medication(s) and diagnosis Last Documented On 3 4:11PM ; [facility] Discussed calming techniques such as yoga meditation to help relieve some anxiety symptoms Last Documented On 3 3:50PM ; [facility] Discussed calming techniques such as breathing exercises and other relaxation techniques Last Documented On 3 3:50PM ; [facility] Discussed good sleep hygiene habits Last Documented On 3 4:11PM ; [facility] Patient education about medi cation --- I educated patient on medication(s) and diagnosis Last Documented On 3 8:55PM ; [facility] Discussed calming techniques such as yoga meditation to help relieve some anxiety symptoms Last Documented On 3 8:27PM ; [facility] Discussed calming techniques such as breathing exercises and other relaxation techniques Last Documented On 3 8:27PM ; [facility] Patient education about medi cation --- I educated patient on medication(s) and diagnosis Last Documented On 2 2:05PM ; [facility] Discussed calming techniques such as yoga meditation to help relieve some anxiety symptoms Last Documented On 2 1:19PM ; [facility] Discussed calming techniques such as breathing exercises and other relaxation techniques Last Documented On 2 1:19PM ; [facility] Discussed good sleep hygiene habits Last Documented On 2 2:05PM ; [facility] Medical Equipment - Implanted Devices Includes: Current and historical Devices No Medical Equipment Recorded Medications Includes: Current and historical Medications Current Medications (continue as prescribed) Mydayis 37.5 MG Oral Capsule Extended Release 24 Hour 12/07/2022 Provider: EILEEN VINCENT MD Diagnosis: Attention-defici t hyperactivity disorder, combined type 1 Capsule every morning Last Documented On 12/07/2022 4:33PM By Radha Vincent MD ; [facility] hydrOXYzine HCl 25 MG Oral Tablet 10/17/2022 Provide r: EILEEN VINCENT MD Diagnosis: 1 tab a day as needed only for itching/anxiety Last Documented On 10/17/2022 7:11PM By Radha Vincent MD ; [facility] Belsomra 10 MG Oral Tablet 09/27/2022 Provider: EILEEN VINCENT MD Diagnosis: Psychophysiologi c insomnia DIRECTED - ONE (1) TAB AT BEDTIME NEEDED FOR SLEEP Last Documented On 3 11:26AM By Radha Vincent MD ; [facility] Escitalopram Oxalate 20 MG Oral Tablet 09/25/2022 Provider: EILEEN VINCENT MD Diagnosis: Generalized anxi ety disorder TAKE ONE TABLET BY MOUTH DAILY Last Documented On 3 10:40AM By Radha Vincent MD ; [facility] lamoTRIgine 150 MG Oral Tablet 09/25/2022 Provider: EILEEN VINCENT MD Diagnosis: TAKE ONE TABLET BY MOUTH TWO TIMES A DAY Last Documented On 3 10:40AM By Radha Vincent MD ; [facility] rOPINIRole HCl 2 MG Oral Tablet 09/25/2022 Provider: EILEEN VINCENT MD Diagnosis: Restless legs sy ndrome DIRECTED - ONE (1) TAB AT FIVE (5) IN THE EVENING FOR RESTLESS LEGS Last Documented On 3 10:37AM By Radha Vincent MD ; [facility] buPROPion HCl ER (XL) 300 MG Oral Tablet Extended Release 24 Hour 07/03/2022 Provider: EILEEN VINCENT MD Diagnosis: Major depressive disorder, single episode, unspecified 1 tablet every morning Last Documented On 07/03/2022 1:56PM By Radha Vincent MD ; [facility] Alendronate Sodium 70 MG Oral Tablet 06/19/2022 Prov ider: WOLF MITCHELL MD Diagnosis: 1 tab weekly Last Documented On 2 11:54AM By WISAM CASH ; [facility] traZODone HCl 50 MG Oral Tablet 02/07/2022 Provider: EILEEN VINCENT MD Diagnosis: TAKE ONE (1) OR TWO (2) TABL ETS BY MOUTH AT BEDTIME NEEDED SLEEP Last Documented On 2 10:04AM By Radha Vincent MD ; [facility] Levothyroxine Sodium 100 MCG Oral Capsule 04/14/2020 Provider: GOLDIE KIDD MD Diagnosis: 1 tab daily Last Documented On 0 11:36AM By WISAM CASH ; [facility] Pantoprazole Sodium 40 MG Or al Tablet Delayed Release 11/15/2019 Provider: SIERRA MCGARRY Diagnosis: 1 tab daily Last Documented On 0 11:20AM By WISAM CASH ; [facility] Azelastine HCl 0.15% Nasal Solution 08/21/2019 Provi itz: GOLDIE KIDD MD Diagnosis: 2 sprays in each nostril twice a day Last Documented On 0 11:35AM By WISAM CASH ; [facility] Ferrous Sulfate 325 (65 Fe) MG Oral Tablet 04/10/2019 Provider: GOLDIE KIDD MD Diagnosis: 1 tab daily Last Documented On 04/10/2019 1:36PM By WISAM CASH ; [facility] Fluticasone Propionate 50MCG /ACT Nasal Suspension 07/25/2018 Provider: BETSY CARRIZALES MD Diagnosis: 2 sprays in each nostril daily Last Documented On 11/28/2018 3:50PM By WISAM CASH ; [facility] Amlodipine Besy-Benazepril H Cl 5-10 MG Capsule, conventional 03/04/2016 Provider: BETSY CARRIZALES MD Diagnosis: 1 daily Last Documented On 6 9:55AM By WILMER REDDY LPN ; [facility] Lipitor 20 MG Tablet 11/10/2015 Provider: JEFFERSON CARRIZALES MD Diagnosis: 1 tablet every evening Last Documented On 6 10:25AM By WILMER REDDY LPN ; [facility] Dicyclomine HCl 10 MG Capsule, conventional 11/10/2015 Provider: BETSY CARRIZALES MD Diagnosis: 1 capsule daily Last Documented On 6 10:22AM By WILMER REDDY LPN ; [facility] Aspirin 81 MG Tablet 11/10/2015 Provider: JEFFERSON CARRIZALES MD Diagnosis: 1 tablet daily Last Documented On 6 10:23AM By WILMER REDDY LPN ; [facility] Lasix 20 MG Tablet 11/10/2015 Provider: BETSY CARRIZALES MD Diagnosis: 1 tablet every morning Last Documented On 6 10:24AM By WILMER REDDY LPN ; [facility] Suspended Medications Trintellix 10 MG Oral Tablet 11/16/2022 Provider: EILEEN VINCENT MD Diagnosis: Major depressive disorder, single episode, unspecified TAKE ONE (1) TABLET BY MOUTH DAILY Last Documented On 3 12:52PM By Radha Vincent MD ; [facility] Namzaric 28-10 MG Oral Capsule Extended Release 24 Hour 10/17/2022 Provider: EILEEN VINCENT MD Diagnosis: Dem in oth dis c lassd elswhr,unsp sev,w/o beh/psych/mood/anx TAKE ONE CAPSULE BY MOUTH EV HELLEN MORNING Last Documented On 3 11:37AM By Radha Vincent MD ; [facility] busPIRone HCl 15 MG Oral Tablet 08/29/2022 Provider: EILEEN VINCENT MD Diagnosis: TAKE ONE TABLET BY MOUTH THREE TIMES a DAY Last Documented On 08/29/2022 3:43PM By Radha Vincent MD ; [facility] Past Medications on file Mydayis 37.5 MG Oral Capsule Extended Release 24 Hour 10/27/2022 - 12/07/2022 Provider: EILEEN VINCENT MD Diagnosis: Attention-defici t hyperactivity disorder, combined type 1 Capsule every morning Last Documented On 12/07/2022 4:28PM By Radha Vincent MD ; [facility] Mydayis 37.5 MG Oral Capsule Extended Release 24 Hour 09/29/2022 - 10/27/2022 Provider: EILEEN VINCENT MD Diagnosis: 1 Capsule every morning Last Documented On 10/27/2022 2:15PM By Radha Vincent MD ; [facility] Mydayis 37.5 MG Oral Capsule Extended Release 24 Hour 08/29/2022 - 09/29/2022 Provider: EILEEN VINCENT MD Diagnosis: TAKE ONE (1) CAPSULE BY MOUTH EACH MORNING Last Documented On 09/29/2022 6:49PM By Radha Vincent MD ; [facility] Mydayis 37.5 MG Oral Capsule Extended Release 24 Hour 08/28/2022 - 10/17/2022 Provider: EILEEN VINCENT MD Diagnosis: Attention-defici t hyperactivity disorder, other type TAKE ONE (1) CAPSULE BY MOUTH EACH MORNING Last Documented On 3 10:52AM By WISAM CASH ; [facility] Belsomra 10 MG Oral Tablet 07/31/2022 - 09/27/2022 Provider: EILEEN VINCENT MD Diagnosis: Psychophysiologi c insomnia as directed - 1 tab at bedti me as needed for sleep Last Documented On 3 11:11AM By Radha Vincent MD ; [facility] Mydayis 37.5 MG Oral Capsule Extended Release 24 Hour 07/24/2022 - 08/28/2022 Provider: EILEEN VINCENT MD Diagnosis: Attention-defici t hyperactivity disorder, other type TAKE ONE (1) CAPSULE BY MOUTH EACH MORNING Last Documented On 3 11:42AM By Radha Vincent MD ; [facility] Quviviq 50 MG Oral Tablet 07/17/2022 - 10/17/2022 Provider: EILEEN VINCENT MD Diagnosis: Psychophysiologi c insomnia One tablet at bed time Last Documented On 3 10:52AM By WISAM CASH ; [facility] Trintellix 10 MG Oral Tablet 07/17/2022 - 11/16/2022 Provider: EILEEN VINCENT MD Diagnosis: Major depressive disorder, single episode, unspecified One tablet daily Last Documented On 3 12:52PM By Radha Vincent MD ; [facility] Mydayis 37.5 MG Oral Capsule Extended Release 24 Hour 06/26/2022 - 07/24/2022 Provider: EILEEN VINCENT MD Diagnosis: Attention-defici t hyperactivity disorder, other type TAKE ONE (1) CAPSULE BY MOUTH EACH MORNING Last Documented On 07/24/2022 1:17PM By Radha Vincent MD ; [facility] Mydayis 37.5 MG Oral Capsule Extended Release 24 Hour 05/26/2022 - 06/26/2022 Provider: EILEEN VINCENT MD Diagnosis: Attention-defici t hyperactivity disorder, other type TAKE ONE (1) CAPSULE BY MOUTH EACH MORNING Last Documented On 2 12:52PM By Radha Vincent MD ; [facility] Mydayis 37.5 MG Oral Capsule Extended Release 24 Hour 04/24/2022 - 05/26/2022 Provider: EILEEN VINCENT MD Diagnosis: Attention-defici t hyperactivity disorder, other type TAKE ONE (1) CAPSULE BY MOUTH EACH MORNING Last Documented On 05/26/2022 2:48PM By Radha Vincent MD ; [facility] Quviviq 50 MG Oral Tablet 04/11/2022 - 07/17/2022 Provider: EILEEN VINCENT MD Diagnosis: Psychophysiologi c insomnia One tablet at bed time Last Documented On 2 12:18PM By Radha Vincent MD ; [facility] rOPINIRole HCl 2 MG Oral Tablet 04/05/2022 - 09/25/2022 Provider: EILEEN VINCENT MD Diagnosis: Restless legs syndrome as directed - 1 tab at 5 pm for restless legs Last Documented On 3 10:37AM By Radha Vincent MD ; [facility] Mydayis 37.5 MG Oral Capsule Extended Release 24 Hour 03/17/2022 - 04/24/2022 Provider: EILEEN VINCENT MD Diagnosis: Attention-defici t hyperactivity disorder, other type TAKE ONE (1) CAPSULE BY MOUTH EACH MORNING Last Documented On 04/24/2022 3:41PM By Radha Vincent MD ; [facility] hydrOXYzine HCl 25 MG Oral Tablet 02/20/2022 - 10/17/2022 Provider: EILEEN CONNORS MD Diagnosis: TAKE ONE (1) OR TWO (2) TABL ETS BY MOUTH NEEDED FOR AGITATION/ANXIETY Last Documented On 10/17/2022 7:11PM By Radha Vincent MD ; [facility] rOPINIRole HCl 1 MG Oral Tablet 02/20/2022 - 05/11/2022 Provider: EILEEN CONNORS MD Diagnosis: as directed - 1 tab in the evening for restless legs Last Documented On 12:52PM By Radha Vincent MD ; [facility] Mydayis 37.5 MG Oral Capsule Extended Release 24 Hour 02/14/2022 - 03/17/2022 Provider: EILEEN VINCENT MD Diagnosis: Attention-defici t hyperactivity disorder, other type TAKE ONE (1) CAPSULE BY MOUTH EACH MORNING Last Documented On 03/17/2022 9:33AM By Radha Vincent MD ; [facility] Mydayis 37.5 MG Oral Capsule Extended Release 24 Hour 01/16/2022 - 02/14/2022 Provider: EILEEN VINCENT MD Diagnosis: Attention-defici t hyperactivity disorder, other type ONE (1) CAPSULE EVERY MORNING Last Documented On 2 10:30AM By Radha Vincent MD ; [facility] Mydayis 37.5 MG Oral Capsule Extended Release 24 Hour 12/14/2021 - 01/16/2022 Provider: EILEEN VINCENT MD Diagnosis: Attention-defici t hyperactivity disorder, other type ONE (1) CAPSULE EVERY MORNING Last Documented On 2 10:30AM By Radha Vincent MD ; [facility] My[facility].5 [facility] Oral Capsule Extended Release 24 Hour 11/03/2021 - 12/14/2021 Provider: EILEEN VINCENT MD Diagnosis: Attention-defici t hyperactivity disorder, other type ONE (1) CAPSULE EVERY MORNING Last Documented On 2 11:51AM By Radha Vincent MD ; [facility] Namzaric 28-10 MG Oral Capsule Extended Release 24 Hour 10/27/2021 - 10/17/2022 Provider: EILEEN CONNORS MD Diagnosis: TAKE ONE CAPSULE BY MOUTH EVERY MORNING Last Documented On 3 11:37AM By Radha Vincent MD ; [facility] Mydayis 37.5 MG Oral Capsule Extended Release 24 Hour 10/05/2021 - 11/03/2021 Provider: EILEEN VINCENT MD Diagnosis: Attention-defici t hyperactivity disorder, other type 1 Capsule every morning Last Documented On 11/03/2021 3:57PM By Radha Vincent MD ; [facility] Escitalopram Oxalate 20 MG Oral Tablet 10/04/2021 - 09/25/2022 Provider: EILEEN VINCENT MD Diagnosis: Generalized anxi ety disorder TAKE ONE TABLET BY MOUTH DAILY Last Documented On 3 10:40AM By Radha Vincent MD ; [facility] Mydayis 37.5 MG Oral Capsule Extended Release 24 Hour 09/02/2021 - 10/05/2021 Provider: EILEEN VINCENT MD Diagnosis: Attention-defici t hyperactivity disorder, other type 1 Capsule every morning Last Documented On 10/05/2021 2:58PM By Radha Vincent MD ; [facility] hydrOXYzine HCl 25 MG Oral Tablet 08/25/2021 - 07/17/2022 Provider: EILEEN VINCENT MD Diagnosis: Generalized anxi ety disorder TAKE 1 OR 2 TABLETS BY MOUTH NEEDED FOR AGITATION/ANXIETY Last Documented On 2 11:42AM By WISAM CASH ; [facility] lamoTRIgine 150 MG Oral Tablet 08/24/2021 - 10/17/2022 Provider: EILEEN VINCENT MD Diagnosis: Bipolar disorder , unspecified TAKE ONE TABLET BY MOUTH TWO TIMES A DAY Last Documented On 3 10:53AM By WISAM CASH ; [facility] busPIRone HCl 15 MG Oral Tablet 08/24/2021 - 10/17/2022 Provider: EILEEN VINCENT MD Diagnosis: Generalized anxi ety disorder TAKE ONE TABLET BY MOUTH THREE TIMES A DAY Last Documented On 3 10:53AM By WISAM CASH ; [facility] Mydayis 37.5 MG Oral Capsule Extended Release 24 Hour 08/04/2021 - 09/02/2021 Provider: EILEEN VINCENT MD Diagnosis: Attention-defici t hyperactivity disorder, other type 1 Capsule every morning Last Documented On 09/02/2021 3:06PM By Radha Vincent MD ; [facility] rOPINIRole HCl 1 MG Oral Tablet 07/29/2021 - 12/20/2021 Provider: EILEEN VINCENT MD Diagnosis: Restless legs syndrome as directed -- 1/2 tab in th e evening for 1 week then 1 tab in the evening thereafter for restless legs Last Documented On 12/20/2021 7:58AM By Radha Vincent MD ; [facility] hydrOXYzine HCl 25 MG Oral Tablet 06/15/2021 - 07/17/2022 Provider: Diagnosis: Generalized anxi ety disorder 1 tab a day as needed for agitation/anxiety Last Documented On 2 11:42AM By WISAM CASH ; [facility] hydrOXYzine HCl 25 MG Oral Tablet 06/15/2021 - 08/25/2021 Provider: EILEEN VINCENT MD Diagnosis: Generalized anxi ety disorder as directed 1 tab a day as n eeded for agitation/anxiety Last Documented On 2 10:50AM By Radha Vincent MD ; [facility] traZODone HCl 50 MG Oral Tablet 06/15/2021 - 07/17/2022 Provider: EILEEN VINCENT MD Diagnosis: Psychophysiologi c insomnia as directed 1 or 2 tabs at b edtime as needed for sleep Last Documented On 2 11:42AM By WISAM CASH ; [facility] traZODone HCl 50 MG Oral Tablet 06/15/2021 [...] 12/20/2021 7:58AM By Radha Vincent MD ; [facility] buPROPion HCl ER (XL) 300 MG Oral Tablet Extended Release 24 Hour 06/06/2021 - 07/03/2022 Provider: EILEEN VINCENT MD Diagnosis: Major depressive disorder, single episode, unspecified 1 tablet every morning Last Documented On 07/03/2022 1:56PM By Radha Vincent MD ; [facility] Mydayis 37.5 MG Oral Capsule Extended Release 24 Hour 05/25/2021 - 12/20/2021 Provider: EILEEN VINCENT MD Diagnosis: 1 Capsule every morning Last Documented On 12/20/2021 7:58AM By Radha Vincent MD ; [facility] Mydayis 37.5 MG Oral Capsule Extended Release 24 Hour 04/25/2021 - 05/25/2021 Provider: EILEEN VINCENT MD Diagnosis: Attention-defici t hyperactivity disorder, other type as directed 1 Capsule every morning Last Documented On 1 10:45AM By Radha Vincent MD ; [facility] Mydayis 37.5 MG Oral Capsule Extended Release 24 Hour 03/23/2021 - 04/19/2021 Provider: EILEEN VINCENT MD Diagnosis: as directed 1 Capsule every morning Last Documented On 1 10:07AM By Radha Vincent MD ; [facility] Mydayis 37.5 MG Oral Capsule Extended Release 24 Hour 02/21/2021 - 03/23/2021 Provider: EILEEN VINCENT MD Diagnosis: as directed 1 Capsule every morning Last Documented On 03/23/2021 2:40PM By Radha Vincent MD ; [facility] Mydayis 37.5 MG Oral Capsule Extended Release 24 Hour 01/25/2021 - 02/21/2021 Provider: EILEEN VINCENT MD Diagnosis: Attention-defici t hyperactivity disorder, other type as directed 1 Capsule every morning Last Documented On 11:20AM By Radha Vincent MD ; [facility] Mydayis 37.5 MG Oral Capsule Extended Release 24 Hour 12/21/2020 - 01/25/2021 Provider: EILEEN VINCENT MD Diagnosis: Attention-defici t hyperactivity disorder, other type as directed 1 Capsule every morning Last Documented On 11:48AM By Radha Vincent MD ; [facility] Mydayis 37.5 MG Oral Capsule Extended Release 24 Hour 11/18/2020 - 12/20/2020 Provider: EILEEN VINCENT MD Diagnosis: Attention-defici t hyperactivity disorder, other type as directed 1 Capsule every morning Last Documented On 12/21/2020 3:30PM By Radha Vincent MD ; [facility] Namzaric 28-10 MG Oral Capsule Extended Release 24 Hour 10/26/2020 - 12/20/2021 Provider: EILEEN CONNORS MD Diagnosis: Dem in oth dis c lassd elswhr,unsp sev,w/o beh/psych/mood/anx 1 CAPSULE EVERY MORNING Last Documented On 12/20/2021 7:58AM By Radha Vincent MD ; [facility] Mydayis 37.5 MG Oral Capsule Extended Release 24 Hour 10/18/2020 - 11/18/2020 Provider: EILEEN VINCENT MD Diagnosis: Attention-defici t hyperactivity disorder, other type as directed 1 Capsule every morning Last Documented On 12:43PM By Radha Vincent MD ; [facility] hydrOXYzine HCl 25 MG Oral Tablet 10/08/2020 - 11/07/2020 Provider: EILEEN VINCENT MD Diagnosis: Generalized anxi ety disorder as directed - 1 tab a day as needed for agitation/anxiety Last Documented On 10/08/2020 2:47PM By Radha Vincent MD ; [facility] Escitalopram Oxalate 20 MG Oral Tablet 09/27/2020 - 10/04/2021 Provider: EILEEN VINCENT MD Diagnosis: Generalized anxi ety disorder TAKE ONE TABLET BY MOUTH DAILY Last Documented On 10/04/2021 1:52PM By Radha Vincent MD ; [facility] lamoTRIgine 150 MG Oral Tablet 09/22/2020 - 08/24/2021 Provider: EILEEN VINCENT MD Diagnosis: Bipolar disorder , unspecified TAKE ONE TABLET BY MOUTH TWO TIMES A DAY Last Documented On 08/24/2021 1:01PM By Radha Vincent MD ; [facility] Mydayis 37.5 MG Oral Capsule Extended Release 24 Hour 09/20/2020 - 10/18/2020 Provider: EILEEN VINCENT MD Diagnosis: Attention-defici t hyperactivity disorder, other type as directed 1 Capsule every morning Last Documented On 1 10:15AM By Radha Vincent MD ; [facility] Mydayis 37.5 MG Oral Capsule Extended Release 24 Hour 08/20/2020 - 09/20/2020 Provider: EILEEN VINCENT MD Diagnosis: Attention-defici t hyperactivity disorder, other type as directed 1 Capsule every morning Last Documented On 1 11:02AM By Radha Vincent MD ; [facility] busPIRone HCl 15 MG Oral Tablet 08/02/2020 - 08/24/2021 Provider: EILEEN VINCENT MD Diagnosis: Generalized anxi ety disorder TAKE ONE TABLET BY MOUTH THREE TIMES A DAY Last Documented On 2 12:59PM By Radha Vincent MD ; [facility] Mydayis 37.5 MG Oral Capsule Extended Release 24 Hour 07/21/2020 - 08/20/2020 Provider: EILEEN VINCENT MD Diagnosis: Attention-defici t hyperactivity disorder, other type as directed 1 Capsule every morning Last Documented On 08/20/2020 4:39PM By Radha Vincent MD ; [facility] Mydayis 37.5 MG Oral Capsule Extended Release 24 Hour 06/21/2020 - 07/21/2020 Provider: EILEEN VINCENT MD Diagnosis: Attention-defici t hyperactivity disorder, other type as directed 1 Capsule every morning Last Documented On 07/21/2020 4:41PM By Radha Vincent MD ; [facility] buPROPion HCl ER (XL) 300 MG Oral Tablet Extended Release 24 Hour 06/08/2020 - 06/06/2021 Provider: EILEEN VINCENT MD Diagnosis: Major depressive disorder, single episode, unspecified 1 tablet every morning Last Documented On 06/06/2021 2:12PM By Radha Vincent MD ; [facility] [employer] [facility] Mydayis 37.5 MG Oral Capsule Extended Release 24 Hour 05/20/2020 - 06/21/2020 Provider: EILEEN VINCENT MD Diagnosis: Attention-defici t hyperactivity disorder, other type as directed 1 Capsule every morning Last Documented On 06/21/2020 6:48PM By Radha Vincent MD ; [facility] traZODone HCl 50 MG Oral Tablet 05/10/2020 - 04/19/2021 Provider: EILEEN VINCENT MD Diagnosis: Psychophysiologi c insomnia TAKE ONE OR TWO TABLETS AT B EDTIME NEEDED FOR SLEEP Last Documented On 12:30PM By Radha Vincent MD ; [facility] Mydayis 37.5 MG Oral Capsule Extended Release 24 Hour 04/21/2020 - 05/20/2020 Provider: EILEEN VINCENT MD Diagnosis: Attention-defici t hyperactivity disorder, other type as directed 1 Capsule every morning Last Documented On 05/20/2020 4:04PM By Radha Vincent MD ; [facility] Mydayis 37.5 MG Oral Capsule Extended Release 24 Hour 03/19/2020 - 04/21/2020 Provider: EILEEN VINCENT MD Diagnosis: Attention-defici t hyperactivity disorder, other type as directed 1 Capsule every morning Last Documented On 0 12:22PM By Radha Vincent MD ; [facility] Mydayis 37.5 MG Oral Capsule Extended Release 24 Hour 03/19/2020 - 03/19/2020 Provider: EILEEN VINCENT MD Diagnosis: Attention-defici t hyperactivity disorder, other type as directed 1 Capsule every morning Last Documented On 03/19/2020 6:12PM By Radha Vincent MD ; [facility] Mydayis 37.5 MG Oral Capsule Extended Release 24 Hour 02/16/2020 - 03/19/2020 Provider: EILEEN VINCENT MD Diagnosis: Attention-defici t hyperactivity disorder, other type as directed 1 Capsule every morning Last Documented On 03/19/2020 9:22AM By Radha Vincent MD ; [facility] Mydayis 37.5 MG Oral Capsule Extended Release 24 Hour 01/12/2020 - 02/16/2020 Provider: EILEEN VINCENT MD Diagnosis: Attention-defici t hyperactivity disorder, other type as directed 1 Capsule every morning Last Documented On 02/16/2020 3:32PM By Radha Vincent MD ; [facility] Mydayis 37.5 MG OR CP24 01/12/2020 - 07/29/2021 Provid er: Diagnosis: Attention-defici t hyperactivity disorder, other type 1 Capsule every morning Last Documented On 1 10:48AM By Radha Vincent MD ; [facility] traZODone HCl 50 MG Oral Tablet 12/23/2019 - 05/10/2020 Provider: EILEEN VINCENT MD Diagnosis: Psychophysiologi c insomnia DIRECTED --1 OR 2 TABS AT BEDTIME NEEDED FOR SLEEP Last Documented On 05/10/2020 4:13PM By Radha Vincent MD ; [facility] Mydayis 37.5 MG Oral Capsule Extended Release 24 Hour 12/12/2019 - 02/07/2022 Provider: EILEEN VINCENT MD Diagnosis: Attention-defici t hyperactivity disorder, other type 1 Capsule every morning Last Documented On 2 10:01AM By Radha Vincent MD ; [facility] Mydayis 37.5 MG Oral Capsule Extended Release 24 Hour 11/06/2019 - 12/12/2019 Provider: EILENE VINCENT MD Diagnosis: Attention-defici t hyperactivity disorder, other type 1 Capsule every morning Last Documented On 12/12/2019 1:16PM By Radha Vincent MD ; [facility] Namzaric 28-10 MG Oral Capsule Extended Release 24 Hour 10/24/2019 - 10/26/2020 Provider: EILEEN CONNORS MD Diagnosis: Dem in oth dis c lassd elswhr,unsp sev,w/o beh/psych/mood/anx 1 CAPSULE EVERY MORNING Last Documented On 1 11:27PM By Radha Vincent MD ; [facility] LaMICtal 150 MG Oral Tablet 10/20/2019 - 09/22/2020 Provider: EILEEN VINCENT MD Diagnosis: Bipolar disorder , unspecified TAKE ONE TABLET BY MOUTH TWO TIMES A DAY Last Documented On 1 12:52PM By Radha Vincent MD ; [facility] [employer] [facility] Mydayis 37.5 MG Oral Capsule Extended Release 24 Hour 10/07/2019 - 11/06/2019 Provider: EILEEN VINCENT MD Diagnosis: Attention-defici t hyperactivity disorder, other type 1 Capsule every morning Last Documented On 11/06/2019 1:48PM By Radha Vincent MD ; [facility] [employer] [facility] Mydayis 37.5 MG Oral Capsule Extended Release 24 Hour 09/02/2019 - 10/07/2019 Provider: EILEEN VINCENT MD Diagnosis: Attention-defici t hyperactivity disorder, other type 1 Capsule every morning Last Documented On 10/07/2019 1:30PM By Rad[facility] MD ; [facility] bus[facility] 15 MG Oral Tablet 08/27/2019 - 08/02/2020 Provider: EILEEN VINCENT MD Diagnosis: Generalized anxi ety disorder TAKE ONE TABLET BY MOUTH THREE TIMES A DAY Last Documented On 08/02/2020 3:42PM By Radah Vincent MD ; [facility] My[facility].5 [facility] Oral Capsule Extended Release 24 Hour 08/01/2019 - 09/02/2019 Provider: EILEEN VINCENT MD Diagnosis: Attention-defici t hyperactivity disorder, other type 1 Capsule every morning Last Documented On 09/02/2019 1:33PM By Radha Vincent MD ; [facility] [employer] [facility] Mydayis 37.5 MG Oral Capsule Extended Release 24 Hour 06/27/2019 - 08/01/2019 Provider: EILEEN VINCENT MD Diagnosis: Attention-defici t hyperactivity disorder, other type 1 Capsule every morning Last Documented On 9 12:05PM By Radha Vincent MD ; [facility] [employer] [facility] Mydayis 37.5 MG Oral Capsule Extended Release 24 Hour 06/09/2019 - 06/27/2019 Provider: EILEEN VINCENT MD Diagnosis: Attention-defici t hyperactivity disorder, other type 1 Capsule every morning Last Documented On 06/27/2019 4:24PM By Radha Vincent MD ; [facility] Escital[facility] Oxalate 20 MG Oral Tablet 06/02/2019 - 09/27/2020 Provider: EILEEN VINCENT MD Diagnosis: Generalized anxi ety disorder TAKE ONE TABLET BY MOUTH DAILY Last Documented On 09/27/2020 2:46PM By Radha Vincent MD ; [facility] Escitalopram Oxalate 20 MG Oral Tablet 05/11/2019 - 06/02/2019 Provider: EILEEN VINCENT MD Diagnosis: Generalized anxi ety disorder ONE TABLET DAILY Last Documented On 9 12:27PM By Radha Vincent MD ; [facility] busPIRone HCl 15 MG Oral Tablet 05/11/2019 - 08/27/2019 Provider: EILEEN VINCENT MD Diagnosis: Generalized anxi ety disorder One tablet three times a day Last Documented On 08/27/2019 4:10PM By Radha Vincent MD ; [facility] Namzaric 28-10 MG Oral Capsule Extended Release 24 Hour 05/11/2019 - 10/24/2019 Provider: EILEEN CONNORS MD Diagnosis: Dem in oth dis c lassd elswhr,unsp sev,w/o beh/psych/mood/anx 1 Capsule every morning Last Documented On 10/24/2019 1:35PM By Radha Vincent MD ; [facility] Wellbutrin XL 300 MG Oral Tablet Extended Release 24 Hour 05/11/2019 - 06/08/2020 Provider: EILEEN VINCENT MD Diagnosis: Major depressive disorder, single episode, unspecified TAKE ONE TABLET BY MOUTH EVERY MORNING Last Documented On 06/08/2020 3:09PM By Radha Vincent MD ; [facility] traZODone HCl 50 MG Oral Tablet 05/11/2019 - 12/23/2019 Provider: EILEEN VINCENT MD Diagnosis: Psychophysiologi c insomnia DIRECTED --1 OR 2 TABS AT BEDTIME NEEDED FOR SLEEP Last Documented On 12/23/2019 6:43PM By Radha Vincent MD ; [facility] LaMICtal 150 MG Oral Tablet 05/11/2019 - 10/20/2019 Provider: EILEEN VINCENT MD Diagnosis: Bipolar disorder , unspecified ONE TABLET TWICE A DAY Last Documented On 0 10:24AM By Radha Vincent MD ; [facility] Mydayis 37.5 MG Oral Capsule Extended Release 24 Hour 05/07/2019 - 06/09/2019 Provider: EILEEN VINCENT MD Diagnosis: Attention-defici t hyperactivity disorder, other type 1 Capsule every morning Last Documented On 9 10:52AM By Radha Vincent MD ; [facility] 300 MG Oral Tablet Extended Release 24 Hour 05/06/2019 - 04/10/2019 Provider: EILEEN VINCENT MD Diagnosis: Major depressive disorder, single episode, unspecified TAKE ONE TABLET BY MOUTH EVERY MORNING Last Documented On 9 10:58PM By Radha Vincent MD ; [facility] Mydayis 37.5 MG Oral Capsule Extended Release 24 Hour 04/10/2019 - 05/07/2019 Provider: EILEEN VINCENT MD Diagnosis: Attention-defici t hyperactivity disorder, other type 1 Capsule every morning Last Documented On 05/07/2019 3:39PM By Radha Vincent MD ; [facility] Mydayis 37.5MG Oral Capsule Extended Release 24 Hour 03/06/2019 - 04/10/2019 Provider: EILEEN VINCENT MD Diagnosis: Attention-defici t hyperactivity disorder, other type 1 Capsule every morning Last Documented On 04/10/2019 2:57PM By Radha Vincent MD ; [facility] Mydayis 37.5MG Oral Capsule Extended Release 24 Hour 01/29/2019 - 03/06/2019 Provider: EILEEN VINCENT MD Diagnosis: Attention-defici t hyperactivity disorder, other type 1 Capsule every morning Last Documented On 03/06/2019 5:04PM By Radha Vincent MD ; [facility] Mydayis 37.5MG Oral Capsule Extended Release 24 Hour 12/24/2018 - 01/29/2019 Provider: EILEEN VINCENT MD Diagnosis: Attention-defici t hyperactivity disorder, other type 1 Capsule every morning Last Documented On 01/29/2019 6:37PM By Radha Vincent MD ; [facility] Mydayis 25MG Oral Capsule Extended Release 24 Hour 12/24/2018 - 08/21/2019 Provider: EILEEN VINCENT MD Diagnosis: Attention-defici t hyperactivity disorder, other type 1 Capsule every morning Last Documented On 0 11:33AM By WISAM CASH ; [facility] Mydayis 25MG Oral Capsule Extended Release 24 Hour 12/18/2018 - 08/21/2019 Provider: EILEEN VINCENT MD Diagnosis: Attention-defici t hyperactivity disorder, other type 1 Capsule every morning Last Documented On 0 11:33AM By WISAM CASH ; [facility] Namzaric 28-10MG Oral Capsule, extended-release 24 hour 12/02/2018 - 04/10/2019 Provider: EILEEN VINCENT MD Diagnosis: Dem in oth dis classd elswhr,unsp sev,w/o beh/psych/mood/anx 1 Capsule every morning Last Documented On 9 10:58PM By Radha Vincent MD ; [facility] LaMICtal 150MG Oral Tablet 12/02/2018 - 04/10/2019 Provider: EILEEN VINCENT MD Diagnosis: Bipolar disorder , unspecified ONE TABLET TWICE A DAY Last Documented On 9 10:58PM By Radha Vincent MD ; [facility] Wellbutrin XL 300MG Oral Tablet, extended-release 24 hour 12/02/2018 - 05/06/2019 Provider: EILEEN VINCENT MD Diagnosis: Major depressive disorder, single episode, unspecified 1 tablet every morning Last Documented On 05/06/2019 6:44PM By Radha Vincent MD ; [facility] Mydayis 25MG Oral Capsule, extended-release 24 hour 11/28/2018 - 12/18/2018 Provider: EILEEN VINCENT MD Diagnosis: Attention-defici t hyperactivity disorder, other type 1 Capsule every morning Last Documented On 9 11:30AM By Radha Vincent MD ; [facility] traZODone HCl 50MG Oral Tablet 11/28/2018 - 04/10/2019 Provider: EILEEN VINCENT MD Diagnosis: Psychophysiologi c insomnia DIRECTED --1 OR 2 TABS AT BEDTIME NEEDED FOR SLEEP Last Documented On 9 10:58PM By Radha Vincent MD ; [facility] Mydayis 25MG Oral Capsule Extended Release 24 Hour 10/22/2018 - 11/28/2018 Provider: EILEEN VINCENT MD Diagnosis: Attention-defici t hyperactivity disorder, other type 1 Capsule every morning Last Documented On 11/28/2018 5:03PM By Radha Vincent MD ; [facility] LaMICtal 150MG Oral Tablet 10/14/2018 - 11/28/2018 Provider: EILEEN VINCENT MD Diagnosis: Bipolar disorder , unspecified ONE TABLET TWICE A DAY Last Documented On 12/02/2018 3:47AM By Radha Vincent MD ; [facility] Mydayis 25MG Oral Capsule Extended Release 24 Hour 09/30/2018 - 10/22/2018 Provider: EILEEN VINCENT MD Diagnosis: Attention-defici t hyperactivity disorder, other type 1 Capsule every morning Last Documented On 10/22/2018 4:27PM By Radha Vincent MD ; [facility] LaMICtal 150MG Oral Tablet 09/24/2018 - 09/27/2018 Provider: EILEEN VINCENT MD Diagnosis: Bipolar disorder , unspecified One tablet twice a day Last Documented On 09/24/2018 1:31PM By Radha Vincent MD ; [facility] Mydayis 25MG Oral Capsule, extended-release 24 hour 08/22/2018 - 09/30/2018 Provider: EILEEN VINCENT MD Diagnosis: Attention-defici t hyperactivity disorder, other type 1 Capsule every morning Last Documented On 09/30/2018 1:43PM By Radha Vincent MD ; [facility] prednisoLONE Sodium Phosphat e 1% Ophthalmic Solution 08/20/2018 - 04/05/2022 Provider: RIANA LEE MD Diagnosis: 1 drop in left eye in the morning Last Documented On 11:09AM By WISAM CASH ; [facility] Namzaric 28-10MG Oral Capsule Extended Release 24 Hour 08/02/2018 - 11/28/2018 Provider: EILEEN CONNORS MD Diagnosis: Dem in oth dis c lassd elswhr,unsp sev,w/o beh/psych/mood/anx 1 Capsule every morning Last Documented On 12/02/2018 3:47AM By Radha Vincent MD ; [facility] Mydayis 25MG Oral Capsule Extended Release 24 Hour 07/15/2018 - 08/22/2018 Provider: EILEEN VINCENT MD Diagnosis: Attention-defici t hyperactivity disorder, other type 1 Capsule every morning Last Documented On 08/22/2018 4:39PM By Rahda Vincent MD ; [facility] Escitalopram Oxalate 20MG Oral Tablet 07/01/2018 - 04/10/2019 Provider: EILEEN VINCENT MD Diagnosis: Generalized anxi ety disorder ONE TABLET DAILY Last Documented On 9 10:58PM By Radha Vincent MD ; [facility] Namzaric 28-10MG Oral Capsule, extended-release 24 hour 06/17/2018 - 08/02/2018 Provider: EILEEN VINCENT MD Diagnosis: Dem in oth dis classd elswhr,unsp sev,w/o beh/psych/mood/anx 1 Capsule every morning Last Documented On 8 12:00PM By Radha Vincent MD ; [facility] Escitalopram Oxalate 20MG Oral Tablet 06/17/2018 - 07/01/2018 Provider: EILEEN VINCENT MD Diagnosis: Generalized anxi ety disorder One tablet daily Last Documented On 07/01/2018 9:47AM By Radha Vincent MD ; [facility] Wellbutrin XL 300MG Oral Tablet, extended-release 24 hour 06/17/2018 - 11/28/2018 Provider: EILEEN VINCENT MD Diagnosis: Major depressive disorder, single episode, unspecified 1 tablet every morning Last Documented On 12/02/2018 3:47AM By Radha Vincent MD ; [facility] TraZODone HCl 50MG Oral Tablet 06/17/2018 - 11/28/2018 Provider: EILEEN VINCENT MD Diagnosis: Psychophysiologi c insomnia DIRECTED --1 OR 2 TABS AT BEDTIME NEEDED FOR SLEEP Last Documented On 11/28/2018 4:59PM By Radha Vincent MD ; [facility] BusPIRone HCl 15MG Oral Tablet 06/17/2018 - 04/10/2019 Provider: EILEEN VINCENT MD Diagnosis: Generalized anxi ety disorder One tablet three times a day Last Documented On 9 10:58PM By Radha Vincent MD ; [facility] LaMICtal 150MG Oral Tablet 06/17/2018 - 10/14/2018 Provider: EILEEN VINCENT MD Diagnosis: Bipolar disorder , unspecified ONE TABLET TWICE A DAY Last Documented On 10/14/2018 1:38PM By Radha Vincent MD ; [facility] Mydayis 25MG Oral Capsule, extended-release 24 hour 06/12/2018 - 07/15/2018 Provider: EILEEN VINCENT MD Diagnosis: Attention-defici t hyperactivity disorder, other type 1 Capsule every morning Last Documented On 07/15/2018 1:57PM By Radha Vincent MD ; [facility] Mydayis 25MG Oral Capsule Extended Release 24 Hour 05/24/2018 - 06/12/2018 Provider: EILEEN VINCENT MD Diagnosis: Attention-defici t hyperactivity disorder, other type 1 Capsule every morning Last Documented On 06/12/2018 3:11PM By Radha Vincent MD ; [facility] Famotidine 40MG Oral Tablet 04/24/2018 - 08/21/2019 Pr ovider: [place] Diagnosis: 1 tab bid Last Documented On 0 11:33AM By WISAM CASH ; [facility] Moxifloxacin HCl 0.5% Ophthalmic Solution 04/22/2018 - 08/21/2019 Provider: RIANA SINGLETON MD Diagnosis: 1 drop in left eye daily Last Documented On 0 11:30AM By WISAM CAHS ; [facility] Mydayis 25MG Oral Capsule Extended Release 24 Hour 04/09/2018 - 05/24/2018 Provider: EILEEN VINCENT MD Diagnosis: Attention-defici t hyperactivity disorder, other type 1 Capsule every morning Last Documented On 05/24/2018 9:43AM By Radha Vincent MD ; [facility] Mydayis 25MG Oral Capsule Extended Release 24 Hour 03/11/2018 - 06/12/2018 Provider: EILEEN VINCENT MD Diagnosis: Attention-defici t hyperactivity disorder, other type 1 Capsule every morning Last Documented On 06/12/2018 2:29PM By WISAM CASH ; [facility] Mydayis 25MG Oral Capsule Extended Release 24 Hour 02/15/2018 - 03/11/2018 Provider: EILEEN VINCENT MD Diagnosis: Attention-defici t hyperactivity disorder, other type 1 Capsule every morning Last Documented On 03/11/2018 1:24PM By Radha Vincent MD ; [facility] Wellbutrin XL 300MG Oral Tablet, extended-release 24 hour 01/04/2018 - 06/12/2018 Provider: EILEEN VINCENT MD Diagnosis: Bipolar disorder , current episode depressed, moderate 1 tablet every morning Last Documented On 06/17/2018 6:08AM By Radha Vincent MD ; [facility] LaMICtal 150MG Oral Tablet 01/04/2018 - 06/12/2018 Provider: EILEEN VINCENT MD Diagnosis: Bipolar disorder , unspecified ONE TABLET TWICE A DAY Last Documented On 06/17/2018 6:08AM By Radha Vincent MD ; [facility] TraZODone HCl 50MG Oral Tablet 01/04/2018 - 06/12/2018 Provider: EILEEN VINCENT MD Diagnosis: Psychophysiologi c insomnia DIRECTED --1 OR 2 TABS AT BEDTIME NEEDED FOR SLEEP Last Documented On 06/17/2018 6:08AM By Radha Vincent MD ; [facility] Namzaric 28-10MG Oral Capsule, extended-release 24 hour 01/04/2018 - 06/12/2018 Provider: EILEEN VINCENT MD Diagnosis: Dem in oth dis classd elswhr,unsp sev,w/o beh/psych/mood/anx 1 Capsule every morning Last Documented On 06/17/2018 6:08AM By Radha Vincent MD ; [facility] BusPIRone HCl 15MG Oral Tablet 01/04/2018 - 06/12/2018 Provider: EILEEN VINCENT MD Diagnosis: Generalized anxi ety disorder One tablet three times a day Last Documented On 06/17/2018 6:08AM By Radha Vincent MD ; [facility] Mydayis 25MG Oral Capsule, extended-release 24 hour 01/03/2018 - 02/15/2018 Provider: EILEEN VINCENT MD Diagnosis: Attention-defici t hyperactivity disorder, other type 1 Capsule every morning Last Documented On 8 10:25AM By Radha Vincent MD ; [facility] Vyvanse 50MG Oral Capsule, conventional 01/03/2018 - 01/14/2018 Provider: EILEEN VINCENT MD Diagnosis: Attention-defici t hyperactivity disorder, other type 1 Capsule every morning Last Documented On 01/14/2018 3:15PM By LETI WILSON ; [facility] Dicyclomine HCl 10MG Oral Capsule, conventional 01/03/2018 - 06/12/2018 Provider: Diagnosis: Last Documented On 06/12/2018 2:28PM By WISAM CASH ; [facility] TraZODone HCl 50MG Oral Tablet 12/17/2017 - 01/03/2018 Provider: EILEEN CONNORS MD Diagnosis: DIRECTED --1 OR 2 TABS AT BEDTIME NEEDED FOR SLEEP Last Documented On 01/04/2018 9:34PM By Radha Vincent MD ; [facility] Vyvanse 50MG Oral Capsule 12/14/2017 - 01/03/2018 Provider: EILEEN VINCENT MD Diagnosis: Attention-defici t hyperactivity disorder, other type 1 Capsule every morning Last Documented On 8 12:20PM By Radha Vincent MD ; [facility] Namzaric 28-10MG Oral Capsule Extended Release 24 Hour 12/14/2017 - 01/03/2018 Provider: EILEEN CONNORS MD Diagnosis: Dem in oth dis c lassd elswhr,unsp sev,w/o beh/psych/mood/anx 1 Capsule every morning Last Documented On 01/04/2018 9:34PM By Radha Vincent MD ; [facility] Vyvanse 50MG Oral Capsule 12/14/2017 - 12/14/2017 Provider: EILEEN VINCENT MD Diagnosis: Attention-defici t hyperactivity disorder, other type 1 Capsule every morning Last Documented On 12/14/2017 4:37PM By aRdha Vincent MD ; [facility] Vyvanse 50MG Oral Capsule 11/15/2017 - 12/14/2017 Provider: EILEEN VINCENT MD Diagnosis: Attention-defici t hyperactivity disorder, other type 1 Capsule every morning Last Documented On 8 10:21AM By Radha Vincent MD ; [facility] Vyvanse 50MG Oral Capsule 10/24/2017 - 11/15/2017 Provider: EILEEN VINCENT MD Diagnosis: Attention-defici t hyperactivity disorder, other type 1 Capsule every morning Last Documented On 11/15/2017 1:28PM By Radha Vincent MD ; [facility] Wellbutrin XL 300MG Oral Tablet, extended-release 24 hour 09/07/2017 - 01/03/2018 Provider: EILEEN VINCENT MD Diagnosis: Bipolar disorder , current episode depressed, moderate 1 tablet every morning Last Documented On 01/04/2018 9:34PM By Radha Vincent MD ; [facility] Namzaric 28-10MG Oral Capsule, extended-release 24 hour 09/07/2017 - 12/14/2017 Provider: EILEEN VINCENT MD Diagnosis: Dem in oth dis classd elswhr,unsp sev,w/o beh/psych/mood/anx 1 Capsule every morning Last Documented On 8 10:35AM By Radha Vincent MD ; [facility] BusPIRone HCl 15MG Oral Tablet 09/07/2017 - 01/03/2018 Provider: EILEEN VINCENT MD Diagnosis: Generalized anxi ety disorder One tablet three times a day Last Documented On 01/04/2018 9:34PM By Radha Vincent MD ; [facility] LaMICtal 150MG Oral Tablet 09/07/2017 - 01/03/2018 Provider: EILEEN VINCENT MD Diagnosis: Bipolar disorder , unspecified ONE TABLET TWICE A DAY Last Documented On 01/04/2018 9:34PM By Radha Vincent MD ; [facility] Vyvanse 50MG Oral Capsule, conventional 09/06/2017 - 10/24/2017 Provider: EILEEN VINCENT MD Diagnosis: Attention-defici t hyperactivity disorder, other type 1 Capsule every morning Last Documented On 10/24/2017 1:44PM By Radha Vincent MD ; [facility] TraZODone HCl 50MG Oral Tablet 08/28/2017 - 12/17/2017 Provider: EILEEN CONNORS MD Diagnosis: DIRECTED --1 OR 2 TABS AT BEDTIME NEEDED FOR SLEEP Last Documented On 12/17/2017 1:33PM By Radha Vincent MD ; [facility] LaMICtal 150MG Oral Tablet 08/27/2017 - 09/06/2017 Pro vider: EILEEN VINCENT MD Diagnosis: ONE TABLET TWICE A DAY Last Documented On 09/07/2017 7:28AM By [facility] MD [facility] V[facility]MG Oral Capsule 08/14/2017 - 06/12/2018 Provider: EILEEN VINCENT MD Diagnosis: Attention-defici t hyperactivity disorder, other type 1 Capsule every morning Last Documented On 06/12/2018 2:29PM By WISAM CASH [facility] V[facility]se 40MG Oral Capsule, conventional 07/10/2017 - 08/14/2017 Provider: EILEEN VINCENT MD Diagnosis: Attention-defici t hyperactivity disorder, other type 1 Capsule every morning Last Documented On 8 10:36AM By Rad[facility] MD [facility] V[facility] Oral Capsule 06/04/2017 - 07/10/2017 Provider: EILEEN VINCENT MD Diagnosis: Attention-defici t hyperactivity disorder, other type 1 Capsule every morning Last Documented On 07/10/2017 4:20PM By Rad[facility] MD [facility] Vy[facility]se 40MG Oral Capsule 06/01/2017 - 06/04/2017 Provider: EILEEN VINCENT MD Diagnosis: Attention-defici t hyperactivity disorder, other type 1 Capsule every morning Last Documented On 7 10:49AM By Radha Vincent MD ; [facility] Wellbutrin XL 300MG Oral Tablet, extended-release 24 hour 05/09/2017 - 09/06/2017 Provider: EILEEN VINCENT MD Diagnosis: Bipolar disorder , current episode depressed, moderate 1 tablet every morning Last Documented On 09/07/2017 7:28AM By Radha Vincent MD ; [facility] Vyvanse 40MG Oral Capsule, conventional 05/09/2017 - 06/01/2017 Provider: EILEEN VINCENT MD Diagnosis: Attention-defici t hyperactivity disorder, other type 1 Capsule every morning Last Documented On 06/01/2017 5:12PM By Radha Vincent MD ; [facility] LaMICtal 150MG Oral Tablet 05/09/2017 - 08/27/2017 Provider: EILEEN VINCENT MD Diagnosis: Bipolar disorder , unspecified One tablet twice a day Last Documented On 08/27/2017 1:17PM By Radha Vincent MD ; [facility] TraZODone HCl 50MG Oral Tablet 05/09/2017 - 08/28/2017 Provider: EILEEN VINCENT MD Diagnosis: Psychophysiologi c insomnia as directed --1 or 2 tabs at bedtime as needed for sleep Last Documented On 08/28/2017 5:21PM By Radha Vincent MD ; [facility] Namzaric 28-10MG Oral Capsule, extended-release 24 hour 05/09/2017 - 09/06/2017 Provider: EILEEN VINCENT MD Diagnosis: Dem in oth dis classd elswhr,unsp sev,w/o beh/psych/mood/anx 1 Capsule every morning Last Documented On 09/07/2017 7:28AM By Radha Vincent MD ; [facility] BusPIRone HCl 15MG Oral Tablet 05/09/2017 - 09/06/2017 Provider: EILEEN VINCENT MD Diagnosis: Generalized anxi ety disorder One tablet three times a day Last Documented On 09/07/2017 7:28AM By Radha Vincent MD ; [facility] Escitalopram Oxalate 20MG Oral Tablet 05/09/2017 - 06/12/2018 Provider: EILEEN VINCENT MD Diagnosis: Generalized anxi ety disorder One tablet daily Last Documented On 06/17/2018 6:08AM By Radha Vincent MD ; [facility] Vyvanse 40MG Oral Capsule, conventional 05/07/2017 - 05/09/2017 Provider: EILEEN VINCENT MD Diagnosis: Attention-defici t hyperactivity disorder, other type 1 Capsule every morning Last Documented On 7 12:21PM By Radha Vincent MD ; [facility] Vyvanse 30MG Oral Capsule, conventional 05/07/2017 - 05/09/2017 Provider: EILEEN VINCENT MD Diagnosis: Attention-defici t hyperactivity disorder, other type 1 Capsule every morning Last Documented On 7 11:33AM By WILMER REDDY LPN ; [facility] BusPIRone HCl 15MG Oral Tablet 04/11/2017 - 05/09/2017 Provider: EILEEN VINCENT MD Diagnosis: Generalized anxi ety disorder One tablet three times a day Last Documented On 7 12:21PM By Radha Vincent MD ; [facility] TraZODone HCl 50MG Oral Tablet 04/09/2017 - 05/09/2017 Provider: EILEEN VINCENT MD Diagnosis: Psychophysiologi c insomnia as directed --1 or 2 tabs at bedtime as needed for sleep Last Documented On 7 12:21PM By Radha Vincent MD ; [facility] LaMICtal 150MG Oral Tablet 04/09/2017 - 05/09/2017 Provider: EILEEN VINCENT MD Diagnosis: Bipolar disorder , unspecified One tablet twice a day Last Documented On 7 12:21PM By Radha Vincent MD ; [facility] Namzaric 28-10MG Oral Capsule Extended Release 24 Hour 04/09/2017 - 05/09/2017 Provider: EILEEN CONNORS MD Diagnosis: Dem in oth dis c lassd elswhr,unsp sev,w/o beh/psych/mood/anx as directed Last Documented On 7 12:21PM By Radha Vincent MD ; [facility] Escitalopram Oxalate 20MG Oral Tablet 04/09/2017 - 05/09/2017 Provider: EILEEN VINCENT MD Diagnosis: Generalized anxi ety disorder One tablet daily Last Documented On 7 12:21PM By Radha Vincent MD ; [facility] BusPIRone HCl 15MG Oral Tablet 04/09/2017 - 04/11/2017 Provider: ELIEEN VINCENT MD Diagnosis: Generalized anxi ety disorder One tablet three times a day --called in 90 and 6 RF on 09/20/16 Last Documented On 04/11/2017 2:10PM By Radha Vincent MD ; [facility] Vyvanse 30MG Oral Capsule 04/06/2017 - 05/07/2017 Provider: EILEEN VINCENT MD Diagnosis: Attention-defici t hyperactivity disorder, other type 1 Capsule every morning Last Documented On 7 10:41AM By Radha Vincent MD ; [facility] Terbinafine HCl 250MG Oral Tablet 04/06/2017 - 01/03/2018 Provider: BETSY CARRIZALES MD Diagnosis: 1 daily Last Documented On 8 12:15PM By Radha Vincent MD ; [facility] Focalin 10MG Oral Tablet 02/12/2017 - 04/06/2017 Provider: EILEEN VINCENT MD Diagnosis: Attention-defici t hyperactivity disorder, other type as directed --10 mg in am an d 10 mg at noon Last Documented On 7 11:22AM By WILMER REDDY LPN ; [facility] LaMICtal 150MG Oral Tablet 02/12/2017 - 04/06/2017 Provider: EILEEN VINCENT MD Diagnosis: Bipolar disorder , unspecified One tablet twice a day Last Documented On 04/09/2017 2:25AM By Radha Vincent MD ; [facility] TraZODone HCl 50MG Oral Tablet 02/12/2017 - 04/06/2017 Provider: EILEEN VINCENT MD Diagnosis: Psychophysiologi c insomnia as directed --1 or 2 tabs at bedtime as needed for sleep Last Documented On 04/09/2017 2:26AM By Radha Vincent MD ; [facility] Namzaric 28-10MG Oral Capsule, extended-release 24 hour 02/12/2017 - 04/06/2017 Provider: EILEEN VINCENT MD Diagnosis: Dem in oth dis classd elswhr,unsp sev,w/o beh/psych/mood/anx as directed Last Documented On 04/09/2017 2:25AM By Radha Vincent MD ; [facility] Escitalopram Oxalate 20MG Oral Tablet 02/12/2017 - 04/06/2017 Provider: EILEEN VINCENT MD Diagnosis: Generalized anxi ety disorder One tablet daily Last Documented On 04/09/2017 2:25AM By Radha Vincent MD ; [facility] BusPIRone HCl 15MG Oral Tablet 02/12/2017 - 04/06/2017 Provider: EILEEN VINCENT MD Diagnosis: Generalized anxi ety disorder One tablet three times a day --called in 90 and 6 RF on 09/20/16 Last Documented On 04/09/2017 2:25AM By Radha Vincent MD ; [facility] Wellbutrin XL 300MG Oral Tablet, extended-release 24 hour 02/09/2017 - 05/09/2017 Provider: EILEEN VINCENT MD Diagnosis: Bipolar disorder , current episode depressed, moderate 1 tablet every morning Last Documented On 7 12:21PM By Radha Vincent MD ; [facility] Focalin 10MG Oral Tablet 01/16/2017 - 04/06/2017 Provider: EILEEN VINCENT MD Diagnosis: Attention-defici t hyperactivity disorder, other type 1 tablet every morning Last Documented On 7 12:05PM By Radha Vincent MD ; [facility] Escitalopram Oxalate 20MG Oral Tablet 10/23/2016 - 01/16/2017 Provider: EILEEN VINCENT MD Diagnosis: Generalized anxi ety disorder One tablet daily Last Documented On 7 11:36AM By Radha Vincent MD ; [facility] LaMICtal 150MG Oral Tablet 10/23/2016 - 01/16/2017 Provider: EILEEN VINCENT MD Diagnosis: Bipolar disorder , unspecified One tablet twice a day Last Documented On 7 11:36AM By Radha Vincent MD ; [facility] TraZODone HCl 50MG Oral Tablet 10/23/2016 - 01/16/2017 Provider: EILEEN VINCENT MD Diagnosis: Psychophysiologi c insomnia as directed --1 or 2 tabs at bedtime as needed for sleep Last Documented On 7 11:36AM By Radha Vincent MD ; [facility] Wellbutrin XL 300MG Oral Tablet, extended-release 24 hour 10/23/2016 - 02/09/2017 Provider: EILEEN VINCENT MD Diagnosis: Bipolar disorder , current episode depressed, moderate 1 tablet every morning Last Documented On 7 12:46PM By Radha Vincent MD ; [facility] BusPIRone HCl 15MG Oral Tablet 10/23/2016 - 01/16/2017 Provider: EILEEN VINCENT MD Diagnosis: Generalized anxi ety disorder One tablet three times a day --called in 90 and 6 RF on 09/20/16 Last Documented On 7 11:36AM By Radha Vincent MD ; [facility] Namzaric 28-10MG Oral Capsule, extended-release 24 hour 10/12/2016 - 01/16/2017 Provider: EILEEN VINCENT MD Diagnosis: Dem in oth dis classd elswhr,unsp sev,w/o beh/psych/mood/anx as directed Last Documented On 7 11:36AM By Radha Vincent MD ; [facility] BusPIRone HCl 15MG Oral Tablet 09/20/2016 - 10/12/2016 Provider: EILEEN VINCENT MD Diagnosis: Generalized anxi ety disorder One tablet three times a day --called in 90 and 6 RF on 09/20/16 Last Documented On 10/23/2016 3:47PM By Radha Vincent MD ; [facility] TraZODone HCl 50 MG Tablet 08/01/2016 - 10/12/2016 Provider: EILEEN CONNORS MD Diagnosis: Oth insomnia not due to a substance or known physiol cond as directed --1 or 2 tabs at bedtime as needed for sleep Last Documented On 10/23/2016 3:47PM By Radha Vincent MD ; [facility] LaMICtal 150 MG Tablet 08/01/2016 - 10/12/2016 Provider: EILEEN CONNORS MD Diagnosis: Bipolar disord, crnt epsd depress, mild or mod severt, unsp One tablet twice a day Last Documented On 10/23/2016 3:47PM By Radha Vincent MD ; [facility] Namenda XR 28 MG Capsule Extended Release 24 Hour 08/01/2016 - 10/23/2016 Provider: EILEEN CONNORS MD Diagnosis: Unsp dementia, u nsp severity, without beh/psych/mood/anx 1 Capsule every morning Last Documented On 10/23/2016 3:44PM By Radha Vincent MD ; [facility] Aricept 23 MG Tablet 08/01/2016 - 10/23/2016 Provider: EILEEN VINCENT MD Diagnosis: Unsp dementia, u nsp severity, without beh/psych/mood/anx One tablet daily Last Documented On 10/23/2016 3:44PM By Radha Vincent MD ; [facility] Escitalopram Oxalate 20 MG Tablet 08/01/2016 - 10/12/2016 Provider: EILEEN VINCENT MD Diagnosis: Generalized anxi ety disorder One tablet daily Last Documented On 10/23/2016 3:47PM By Radha Vincent MD ; [facility] BusPIRone HCl 15 MG Tablet 08/01/2016 - 09/20/2016 Provider: EILEEN VINCENT MD Diagnosis: Generalized anxi ety disorder One tablet three times a day Last Documented On 09/20/2016 5:42PM By Radha Vincent MD ; [facility] Terbinafine HCl 250 MG Tablet 08/01/2016 - 01/16/2017 Provider: BETSY CARRIZALES MD Diagnosis: 1 daily Last Documented On 7 10:57AM By WILMER REDDY LPN ; [facility] TraZODone HCl 50 MG Tablet 07/28/2016 - 08/01/2016 Provider: EILEEN CONNORS MD Diagnosis: Oth insomnia not due to a substance or known physiol cond as directed --1 or 2 tabs at bedtime as needed for sleep Last Documented On 6 10:40AM By Radha Vincent MD ; [facility] Aricept 23 MG Tablet 07/28/2016 - 08/01/2016 Provider: EILEEN VINCENT MD Diagnosis: Unsp dementia, u nsp severity, without beh/psych/mood/anx One tablet daily Last Documented On 6 10:40AM By Radha Vincent MD ; [facility] LaMICtal 150 MG Tablet 06/27/2016 - 08/01/2016 Provider: EILEEN CONNORS MD Diagnosis: Bipolar disord, crnt epsd depress, mild or mod severt, unsp One tablet twice a day Last Documented On 6 10:40AM By Radha Vincent MD ; [facility] Wellbutrin XL 300 MG Tablet, extended-release 24 hour 03/13/2016 - 10/12/2016 Provider: EILEEN VINCENT MD Diagnosis: Bipolar disorder , current episode depressed, moderate 1 tablet every morning Last Documented On 10/23/2016 3:47PM By Radha Vincent MD ; [facility] BusPIRone HCl 15 MG Tablet 03/13/2016 - 08/01/2016 Provider: EILEEN VINCENT MD Diagnosis: Generalized anxi ety disorder One tablet three times a day Last Documented On 6 10:40AM By Radha Vincent MD ; [facility] TraZODone HCl 50 MG Tablet 03/13/2016 - 07/28/2016 Provider: EILEEN CONNORS MD Diagnosis: Oth insomnia not due to a substance or known physiol cond as directed --1 or 2 tabs at bedtime as needed for sleep Last Documented On 07/28/2016 4:47PM By Radha Vincent MD ; [facility] LaMICtal 150 MG Tablet 03/13/2016 - 06/27/2016 Provider: EILEEN CONNORS MD Diagnosis: Bipolar disord, crnt epsd depress, mild or mod severt, unsp One tablet twice a day Last Documented On 06/27/2016 6:27PM By Radha Vincent MD ; [facility] Aricept 23 MG Tablet 03/13/2016 - 07/28/2016 Provider: EILEEN VINCENT MD Diagnosis: Unsp dementia, u nsp severity, without beh/psych/mood/anx One tablet daily Last Documented On 07/28/2016 4:46PM By Radha Vincent MD ; [facility] Namenda XR 28 MG Capsule, extended-release 24 hour 03/13/2016 - 08/01/2016 Provider: EILEEN VINCENT MD Diagnosis: Unsp dementia, u nsp severity, without beh/psych/mood/anx 1 Capsule every morning -- h as 2 RF left as of 03/13/16 -- [facility] Last Documented On 6 10:40AM By Radha Vincent MD ; [facility] Escitalopram Oxalate 20 MG Tablet 03/13/2016 - 08/01/2016 Provider: EILEEN VINCENT MD Diagnosis: Generalized anxi ety disorder One tablet daily Last Documented On 6 10:40AM By Radha Vincent MD ; [facility] Escitalopram Oxalate 20 MG Tablet 03/09/2016 - 03/13/2016 Provider: EILEEN VINCENT MD Diagnosis: Generalized anxi ety disorder One tablet daily Last Documented On 6 10:35AM By Radha Vincent MD ; [facility] Levothyroxine Sodium 88 MCG Tablet 03/04/2016 - 04/21/2020 Provider: BETSY CARRIZALES MD Diagnosis: 1 tablet daily Last Documented On 0 11:32AM By WISAM CASH ; [facility] Wellbutrin XL 300 MG Tablet, extended-release 24 hour 02/17/2016 - 03/13/2016 Provider: EILEEN VINCENT MD Diagnosis: Bipolar disorder , current episode depressed, moderate 1 tablet every morning Last Documented On 6 10:36AM By Radha Vincent MD ; [facility] Wellbutrin XL 300 MG Tablet, extended-release 24 hour 02/07/2016 - 02/17/2016 Provider: EILEEN VINCENT MD Diagnosis: Bipolar disorder , current episode depressed, moderate 1 tablet every morning Last Documented On 02/17/2016 5:59PM By Radha Vincent MD ; [facility] Namenda XR 28 MG Capsule, extended-release 24 hour 01/17/2016 - 03/13/2016 Provider: EILEEN VINCENT MD Diagnosis: Unsp dementia, u nsp severity, without beh/psych/mood/anx 1 Capsule every morning Last Documented On 6 10:35AM By Radha Vincent MD ; [facility] Namenda XR 28 MG Capsule Extended Release 24 Hour 01/12/2016 - 01/17/2016 Provider: EILEEN CONNORS MD Diagnosis: Unsp dementia, u nsp severity, without beh/psych/mood/anx 1 Capsule every morning Last Documented On 6 11:49AM By Radha Vincent MD ; [facility] Calcium 600+D 600-400 MG-UNI T Tablet 11/10/2015 - 07/17/2022 Provider: BETSY CARRIZALES MD Diagnosis: 1 tablet twice a day Last Documented On 2 11:34AM By WIASM CASH ; [facility] Amlodipine Besy-Benazepril H Cl 5-10 MG Capsule, conventional 11/10/2015 - 03/13/2016 Provider: BERNARDO CARRIZALES MD Diagnosis: 1 capsule daily Last Documented On 6 9:55AM By WILMER REDDY LPN ; [facility] Omeprazole 20 MG Tablet, ent romeo coated 11/10/2015 - 12/15/2019 Provider: BETSY CARRIZALES MD Diagnosis: 1 tablet daily Last Documented On 0 11:19AM By WISAM JUAREZ [facility] ; [facility] Metoprolol Tartrate 25 MG Tablet 10/09/2015 - 09/06/19 Provider: BETSY CARRIZALES MD Diagnosis: Take 1/2 tablet two times a day Last Documented On 8 11:00AM By LAURA VANG [facility] ; [facility] Pantoprazole Sodium 40 MG Ta blet, enteric coated 09/30/2015 - 01/03/2018 Provider: SIERRA Golden Diagnosis: 1 tablet daily Last Documented On 8 12:14PM By Radha Vincent MD ; [facility] Aricept 23 MG Tablet 07/29/2015 - 03/13/2016 Provider: EILEEN VINCENT MD Diagnosis: Unsp dementia, u nsp severity, without beh/psych/mood/anx One tablet daily Last Documented On 6 10:35AM By Radha Vincent MD ; [facility] BusPIRone HCl 10 MG Tablet 07/29/2015 - 09/20/2016 Provider: EILEEN VINCENT MD Diagnosis: Generalized anxi ety disorder One tablet three times a day Last Documented On 7 11:08AM By WILMER REDDY MARINE SPECIALIST ; [facility] Escitalopram Oxalate 20 MG Tablet 07/29/2015 - 03/09/2016 Provider: EILEEN VINCENT MD Diagnosis: Generalized anxi ety disorder One tablet daily Last Documented On 03/09/2016 4:12PM By Radha Vincent MD ; [facility] TraZODone HCl 50 MG Tablet 07/29/2015 - 03/13/2016 Provider: EILEEN CONNORS MD Diagnosis: Oth insomnia not due to a substance or known physiol cond One tablet at bed time Last Documented On 6 10:35AM By Radha Vincent MD ; [facility] Wellbutrin XL 300 MG Tablet, extended-release 24 hour 07/29/2015 - 02/07/2016 Provider: EILEEN VINCENT MD Diagnosis: Bipolar disorder , current episode depressed, moderate 1 tablet every morning Last Documented On 6 12:34PM By Radha Vincent MD ; [facility] LaMICtal 150 MG Tablet 07/29/2015 - 03/13/2016 Provider: EILEEN CONNORS MD Diagnosis: Bipolar disord, crnt epsd depress, mild or mod severt, unsp One tablet twice a day Last Documented On 6 10:35AM By Radha Vincent MD ; [facility] Namenda XR 28 MG Capsule, extended-release 24 hour 07/29/2015 - 01/12/2016 Provider: EILEEN VINCENT MD Diagnosis: Unsp dementia, u nsp severity, without beh/psych/mood/anx 1 Capsule every morning Last Documented On 01/12/2016 9:11AM By Radha Vincent MD ; [facility] Wellbutrin XL 300 MG Tablet Extended Release 24 Hour 05/24/2015 - 07/29/2015 Provider: EILEEN VINCENT MD Diagnosis: Bipolar disorder , current episode depressed, moderate 1 tablet every morning Last Documented On 5 10:26AM By Radha Vincent MD ; [facility] Escitalopram Oxalate 20 MG Tablet 05/24/2015 - 07/29/2015 Provider: EILEEN VINCENT MD Diagnosis: Generalized anxi ety disorder One tablet daily Last Documented On 5 10:26AM By Radha Vincent MD ; [facility] BusPIRone HCl 10 MG Tablet 05/24/2015 - 07/29/2015 Provider: EILEEN VINCENT MD Diagnosis: Generalized anxi ety disorder One tablet three times a day Last Documented On 5 10:26AM By Radha Vincent MD ; [facility] LaMICtal 150 MG Tablet 05/24/2015 - 07/29/2015 Provider: EILEEN CONNORS MD Diagnosis: Bipolar disord, crnt epsd depress, mild or mod severt, unsp One tablet twice a day Last Documented On 5 10:26AM By Radha Vincent MD ; [facility] TraZODone HCl 50 MG Tablet 05/24/2015 - 07/29/2015 Provider: EILEEN CONNORS MD Diagnosis: Oth insomnia not due to a substance or known physiol cond One tablet at bed time Last Documented On 5 10:26AM By Radha Vincent MD ; [facility] Aricept 23 MG Tablet 05/24/2015 - 07/29/2015 Provider: EILEEN VINCENT MD Diagnosis: Unsp dementia, u nsp severity, without beh/psych/mood/anx One tablet daily Last Documented On 5 10:26AM By Radha Vincent MD ; [facility] Namenda XR 28 MG Capsule Extended Release 24 Hour 05/24/2015 - 07/29/2015 Provider: EILEEN CONNORS MD Diagnosis: Unsp dementia, u nsp severity, without beh/psych/mood/anx 1 Capsule every morning Last Documented On 5 10:26AM By Radha Vincent MD ; [facility] Synthroid 88 MCG Tablet 02/16/2015 - 01/16/2017 Provider: BETSY CARRIZALES MD Diagnosis: Hypothyroidism, unspecified 1 tablet daily Last Documented On 7 10:57AM By WILMER REDDY LPN ; [facility] Wellbutrin XL 300 MG Tablet, extended-release 24 hour 01/28/2015 - 05/24/2015 Provider: EILEEN VINCENT MD Diagnosis: BIPOL I CUR DEPR ES NOS 1 tablet every morning Last Documented On 5 10:54AM By Radha Vincent MD ; [facility] Namenda XR 28 MG Capsule, extended-release 24 hour 01/28/2015 - 05/24/2015 Provider: EILEEN VINCENT MD Diagnosis: PRESENILE HANNY IA 1 Capsule every morning Last Documented On 5 10:54AM By Radha Vincent MD ; [facility] Aricept 23 MG Tablet 01/28/2015 - 05/24/2015 Provider: EILEEN VINCENT MD Diagnosis: PRESENILE HANNY IA One tablet daily Last Documented On 5 10:54AM By Radha Vincent MD ; [facility] LaMICtal 150 MG Tablet 01/28/2015 - 05/24/2015 Provider: EILEEN CONNORS MD Diagnosis: BIPOL I CUR DEPR ES NOS One tablet twice a day Last Documented On 5 10:54AM By Radha Vincent MD ; [facility] TraZODone HCl 50 MG Tablet 01/28/2015 - 05/24/2015 Provider: EILEEN CONNORS MD Diagnosis: PERSISTENT INSOM MURIEL One tablet at bed time Last Documented On 5 10:54AM By Radha Vincent MD ; [facility] Escitalopram Oxalate 20 MG Tablet 01/28/2015 - 05/24/2015 Provider: EILEEN VINCENT MD Diagnosis: GENERALIZED ANXI ETY DIS One tablet daily Last Documented On 5 10:54AM By Radha Vincent MD ; [facility] BusPIRone HCl 10 MG Tablet 01/28/2015 - 05/24/2015 Provider: EILEEN VINCENT MD Diagnosis: GENERALIZED ANXI ETY DIS One tablet three times a day Last Documented On 5 10:54AM By Radha Vincent MD ; [facility] TraZODone HCl 50 MG Tablet 12/09/2014 - 01/28/2015 Provider: EILEEN CONNORS MD Diagnosis: PERSISTENT INSOM MURIEL One tablet at bed time Last Documented On 5 12:08PM By Radha Vincent MD ; [facility] TraZODone HCl 50 MG Tablet 11/06/2014 - 12/09/2014 Provider: EILEEN CONNORS MD Diagnosis: PERSISTENT INSOM MURIEL One tablet at bed time Last Documented On 12/09/2014 5:43PM By Radha Vincent MD ; [facility] busPIRone HCl 10 MG OR TABS 10/15/2014 - 01/28/2015 Provider: EILEEN VINCENT MD Diagnosis: GENERALIZED ANXI ETY DIS as needed for anxiety Last Documented On 5 12:08PM By Radha Vincent MD ; [facility] LaMICtal 150 MG OR TABS 10/15/2014 - 01/28/2015 Provider: EILEEN CONNORS MD Diagnosis: BIPOL I CUR DEPR ES NOS Last Documented On 5 12:08PM By Radha Vincent MD ; [facility] Wellbutrin XL 300 MG OR TB24 10/15/2014 - 01/28/2015 Provider: EILEEN VINCENT MD Diagnosis: BIPOL I CUR DEPR ES NOS Last Documented On 5 12:08PM By Radha Vincent MD ; [facility] traZODone HCl 50 MG OR TABS 10/15/2014 - 11/06/2014 Provider: EILEEN CONNORS MD Diagnosis: PERSISTENT INSOM MURIEL Last Documented On 11/06/2014 5:25PM By Radha Vincent MD ; [facility] Namenda XR 28 MG OR CP24 10/15/2014 - 01/28/2015 Provider: EILEEN CONNORS MD Diagnosis: PRESENILE HANNY IA Last Documented On 5 12:08PM By Radha Vincent MD ; [facility] Aricept 23 MG OR TABS 10/15/2014 - 01/28/2015 Provider : EILEEN VINCENT MD Diagnosis: PRESENILE HANNY IA Last Documented On 5 12:08PM By Radha Vincent MD ; [facility] Escitalopram Oxalate 20 MG OR TABS 10/15/2014 - 01/28/2015 Provider: EILEEN VINCENT MD Diagnosis: GENERALIZED ANXI ETY DIS Last Documented On 5 12:08PM By Radha Vincent MD ; [facility] Fetzima 40 MG OR CP24 07/16/2014 - 10/15/2014 Provider: EILEEN CONNORS MD Diagnosis: GENERALIZED ANXI ETY DIS Last Documented On 5 11:04AM By WILMER REDDY LPN ; [facility] Escitalopram Oxalate 20 MG OR TABS 07/16/2014 - 10/15/2014 Provider: EILEEN VINCENT MD Diagnosis: GENERALIZED ANXI ETY DIS Last Documented On 5 11:45AM By Radha Vincent MD ; [facility] LaMICtal 150 MG OR TABS 07/16/2014 - 10/15/2014 Provider: EILEEN CONNORS MD Diagnosis: BIPOL I CUR DEPR ES NOS Last Documented On 5 11:45AM By Radha Vincent MD ; [facility] Wellbutrin XL 150 MG OR TB24 07/16/2014 - 05/24/2015 Provider: EILEEN VINCENT MD Diagnosis: BIPOL I CUR DEPR ES NOS Last Documented On 5 10:52AM By Radha Vincent MD ; [facility] Fetzima Titration 20 & 40 MG OR C4PK 07/16/2014 - 10/15/2014 Provider: EILEEN VINCENT MD Diagnosis: GENERALIZED ANXI ETY DIS 20 mg in am for 2 days then 40 mg in am thereafter -- 50 samples given 2 months samples Last Documented On 5 11:04AM By WILMER REDDY LPN ; [facility] traZODone HCl 50 MG OR TABS 07/16/2014 - 10/15/2014 Provider: EILEEN CONNORS MD Diagnosis: PERSISTENT INSOM MURIEL Last Documented On 5 11:45AM By Radha Vincent MD ; [facility] Aricept 23 MG OR TABS 07/16/2014 - 10/15/2014 Provider : EILEEN VINCENT MD Diagnosis: PRESENILE HANNY IA Last Documented On 5 11:45AM By Radha Vincent MD ; [facility] Namenda XR 28 MG OR CP24 07/16/2014 - 10/15/2014 Provider: EILEEN CONNORS MD Diagnosis: PRESENILE HANNY IA Last Documented On 5 11:45AM By Radha Vincent MD ; [facility] busPIRone HCl 10 MG OR TABS 07/16/2014 - 10/15/2014 Provider: EILEEN VINCENT MD Diagnosis: GENERALIZED ANXI ETY DIS as needed for anxiety Last Documented On 5 11:45AM By Radha Vincent MD ; [facility] Fetzima Titration 20 & 40 MG OR C4PK 06/01/2014 - 07/16/2014 Provider: EILEEN VINCENT MD Diagnosis: GENERALIZED ANXI ETY DIS 20 mg in am for 2 days then 40 mg in am thereafter -- 50 samples given Last Documented On 4 11:10AM By Radha Vincent MD ; [facility] busPIRone HCl 10 MG OR TABS 04/30/2014 - 07/16/2014 Provider: EILEEN VINCENT MD Diagnosis: GENERALIZED ANXI ETY DIS as needed for anxiety --was told to take extra Buspar when she has bad thought since she is only taking it 2 x a day Last Documented On 4 11:10AM By Radha Vincent MD ; [facility] Wellbutrin XL 150 MG OR TB24 04/07/2014 - 07/16/2014 Provider: EILEEN VINCENT MD Diagnosis: BIPOL I CUR DEPR ES NOS Last Documented On 4 11:10AM By Radha Vincent MD ; [facility] LaMICtal 150 MG OR TABS 04/07/2014 - 07/16/2014 Provider: EILEEN CONNORS MD Diagnosis: BIPOL I CUR DEPR ES NOS Last Documented On 4 11:10AM By Radha Vincent MD ; [facility] traZODone HCl 50 MG OR TABS 04/07/2014 - 07/16/2014 Provider: EILEEN CONNORS MD Diagnosis: PERSISTENT INSOM MURIEL Last Documented On 4 11:10AM By Radha Vincent MD ; [facility] Namenda XR 28 MG OR CP24 04/07/2014 - 07/16/2014 Provider: EILEEN CONNORS MD Diagnosis: PRESENILE HANNY IA Last Documented On 4 11:10AM By Radha Vincent MD ; [facility] Aricept 23 MG OR TABS 04/07/2014 - 07/16/2014 Provider : EILEEN VINCENT MD Diagnosis: PRESENILE HANNY IA Last Documented On 4 11:10AM By Radha Vincent MD ; [facility] Escitalopram Oxalate 20 MG OR TABS 04/07/2014 - 07/16/2014 Provider: EILEEN VINCENT MD Diagnosis: GENERALIZED ANXI ETY DIS Last Documented On 4 11:10AM By Radha Vincent MD ; [facility] busPIRone HCl 10 MG OR TABS 04/07/2014 - 04/30/2014 Provider: EILEEN VINCENT MD Diagnosis: GENERALIZED ANXI ETY DIS as needed for anxiety Last Documented On 04/30/2014 9:59AM By Radha Vincent MD ; [facility] Wellbutrin XL 150 MG OR TB24 02/09/2014 - 04/07/2014 Provider: EILEEN VINCENT MD Diagnosis: BIPOL I CUR DEPR ES NOS 1 tablet every morning Last Documented On 04/07/2014 2:56PM By Radha Vincent MD ; [facility] Lipitor 20 MG OR TABS 02/09/2014 - 11/10/2015 Provider : Diagnosis: 1 every p.m. Last Documented On 6 10:25AM By WILMER REDDY LPN ; [facility] traZODone HCl 50 MG OR TABS 02/09/2014 - 04/07/2014 Provider: EILEEN CONNORS MD Diagnosis: PERSISTENT INSOM MURIEL Last Documented On 04/07/2014 2:56PM By Radha Vincent MD ; [facility] Lasix 20 MG OR TABS 02/09/2014 - 11/10/2015 Provider: Diagnosis: 1 every morning Last Documented On 6 10:24AM By WILMER REDDY LPN ; [facility] Aspirin 81 MG OR TABS 02/09/2014 - 11/10/2015 Provider : Diagnosis: 1 every morning Last Documented On 6 10:23AM By WILMER REDDY LPN ; [facility] busPIRone HCl 10 MG OR TABS 02/09/2014 - 04/07/2014 Provider: EILEEN VINCENT MD Diagnosis: GENERALIZED ANXI ETY DIS as needed for anxiety Last Documented On 04/07/2014 2:56PM By Radha Vincent MD ; [facility] Aricept 23 MG OR TABS 02/09/2014 - 04/07/2014 Provider : EILEEN VINCENT MD Diagnosis: PRESENILE HANNY IA Last Documented On 04/07/2014 2:56PM By Radha Vincent MD ; [facility] Escitalopram Oxalate 20 MG OR TABS 02/09/2014 - 04/07/2014 Provider: EILEEN VINCENT MD Diagnosis: GENERALIZED ANXI ETY DIS Last Documented On 04/07/2014 2:56PM By Radah Vincent MD ; [facility] Namenda XR 28 MG OR CP24 02/09/2014 - 04/07/2014 Provider: EILEEN CONNORS MD Diagnosis: PRESENILE HANNY IA Last Documented On 04/07/2014 2:56PM By Radha Vincent MD ; [facility] Terbinafine HCl 250 MG OR TABS 12/18/2013 - 04/07/2014 Provider: BETSY CARRIZALES MD Diagnosis: one tablet daily Last Documented On 04/07/2014 2:56PM By Radha Vincent MD ; [facility] Aricept 23 MG OR TABS 11/22/2013 - 02/09/2014 Provider : EILEEN VINCENT MD Diagnosis: PRESENILE HANNY IA Last Documented On 02/09/2014 3:31PM By Radha Vincent MD ; [facility] Namenda XR 28 MG OR CP24 11/22/2013 - 02/09/2014 Provider: EILEEN CONNORS MD Diagnosis: PRESENILE HANNY IA Last Documented On 02/09/2014 3:31PM By Radha Vincent MD ; [facility] traZODone HCl 50 MG OR TABS 11/22/2013 - 02/09/2014 Provider: EILEEN CONNORS MD Diagnosis: PERSISTENT INSOM MURIEL Last Documented On 02/09/2014 3:31PM By Radha Vincent MD ; [facility] Wellbutrin XL 150 MG OR TB24 11/22/2013 - 02/09/2014 Provider: EILEEN VINCENT MD Diagnosis: BIPOL I CUR DEPR ES NOS 1 tablet every morning Last Documented On 02/09/2014 3:31PM By Radha Vincent MD ; [facility] Escitalopram Oxalate 20 MG OR TABS 11/22/2013 - 02/09/2014 Provider: EILEEN VINCENT MD Diagnosis: GENERALIZED ANXI ETY DIS Last Documented On 02/09/2014 3:31PM By Radha Vincent MD ; [facility] LaMICtal 150 MG OR TABS 11/21/2013 - 04/07/2014 Provider: EILEEN CONNORS MD Diagnosis: BIPOL I CUR DEPR ES NOS Last Documented On 04/07/2014 2:56PM By Radha Vincent MD ; [facility] busPIRone HCl 10 MG OR TABS 11/21/2013 - 02/09/2014 Provider: EILEEN VINCENT MD Diagnosis: GENERALIZED ANXI ETY DIS as needed for anxiety Last Documented On 02/09/2014 3:31PM By Radha Vincent MD ; [facility] traZODone HCl 50 MG OR TABS 11/11/2013 - 11/21/2013 Pr ovider: EILEEN VINCENT MD Diagnosis: Last Documented On 11/22/2013 9:48PM By Radha Vincent MD ; [facility] Fanapt 2 MG OR TABS 10/23/2013 - 11/22/2013 Provider: EILEEN VINCENT MD Diagnosis: BIPOL I CUR DEPR ES NOS pt given samples of 1 mg bid then 2 mg bid --4 tablets samples Last Documented On 11/22/2013 9:43PM By Radha Vincetn MD ; [facility] Namenda XR 28 MG OR CP24 10/23/2013 - 11/21/2013 Provider: EILEEN CONNORS MD Diagnosis: PRESENILE HANNY IA Last Documented On 11/22/2013 9:48PM By Radha Vincent MD ; [facility] lamoTRIgine 200 MG OR TABS 10/23/2013 - 11/22/2013 Provider: EILEEN VINCENT MD Diagnosis: BIPOL I CUR DEPR ES NOS Last Documented On 11/22/2013 9:43PM By Radha Vincent MD ; [facility] Wellbutrin XL 150 MG OR TB24 10/23/2013 - 11/21/2013 Provider: EILEEN VINCENT MD Diagnosis: BIPOL I CUR DEPR ES NOS 1 tablet every morning Last Documented On 11/22/2013 9:48PM By Radha Vincent MD ; [facility] busPIRone HCl 10 MG OR TABS 10/23/2013 - 11/21/2013 Provider: EILEEN VINCENT MD Diagnosis: GENERALIZED ANXI ETY DIS as needed for anxiety Last Documented On 11/21/2013 4:07PM By Radha Vincent MD ; [facility] Aricept 23 MG OR TABS 10/23/2013 - 11/21/2013 Provider : EILEEN VINCENT MD Diagnosis: PRESENILE HANNY IA Last Documented On 11/22/2013 9:48PM By Radha Vincent MD ; [facility] Escitalopram Oxalate 20 MG OR TABS 10/23/2013 - 11/21/2013 Provider: EILEEN VINCENT MD Diagnosis: GENERALIZED ANXI ETY DIS Last Documented On 11/22/2013 9:48PM By Radha Vincent MD ; [facility] Fanapt 2 MG OR TABS 10/23/2013 - 10/23/2013 Provider: EILEEN VINCENT MD Diagnosis: BIPOL I CUR DEPR ES NOS Last Documented On 10/23/2013 8:22PM By Radha Vincent MD ; [facility] Wellbutrin XL 150 MG OR TB24 07/28/2013 - 10/23/2013 Provider: EILEEN VINCENT MD Diagnosis: BIPOL I CUR DEPR ES NOS 1 tablet every morning Last Documented On 10/23/2013 3:35PM By Radha Vincent MD ; [facility] lamoTRIgine 200 MG OR TABS 07/28/2013 - 10/23/2013 Provider: EILEEN VINCENT MD Diagnosis: BIPOL I CUR DEPR ES NOS Last Documented On 10/23/2013 3:35PM By Radha Vincent MD ; [facility] Diclofenac Sodium 75 MG OR TBEC 07/28/2013 - Provider: Diagnosis: Last Documented On 3:00PM By TERRI CASH ; [facility] Escitalopram Oxalate 20 MG OR TABS 07/28/2013 - 10/23/2013 Provider: EILEEN VINCENT MD Diagnosis: GENERALIZED ANXI ETY DIS Last Documented On 10/23/2013 8:22PM By Radha Vincent MD ; [facility] Aricept 23 MG OR TABS 07/28/2013 - 10/23/2013 Provider : EILEEN VINCENT MD Diagnosis: PRESENILE HANNY IA Last Documented On 10/23/2013 3:35PM By Radha Vincent MD ; [facility] busPIRone HCl 10 MG OR TABS 07/28/2013 - 10/23/2013 Provider: EILEEN VINCENT MD Diagnosis: GENERALIZED ANXI ETY DIS as needed for anxiety Last Documented On 10/23/2013 3:35PM By Radha Vincent MD ; [facility] Namenda XR 28 MG OR CP24 07/28/2013 - 10/23/2013 Provider: EILEEN CONNORS MD Diagnosis: PRESENILE HANNY IA Last Documented On 10/23/2013 3:35PM By Radha Vincent MD ; [facility] Neupro 1 MG/24HR TD PT24 07/28/2013 - 10/23/2013 Provider: EILEEN CONNORS MD Diagnosis: Restless Legs Sy ndrome apply 1 patch to skin of upp er arm, flank etc...once a day--totate sites Last Documented On 10/23/2013 3:16PM By Radha Vincent MD ; [facility] Dicyclomine HCl 10 MG OR CAPS 05/07/2013 - 11/10/2015 Provider: Diagnosis: Last Documented On 6 10:21AM By WILMER REDDY LPN ; [facility] lamoTRIgine 200 MG OR TABS 05/07/2013 - 07/28/2013 Provider: EILEEN VINCENT MD Diagnosis: BIPOL I CUR DEPR ES NOS Last Documented On 07/28/2013 3:48PM By Radha Vincent MD ; [facility] Aricept 23 MG OR TABS 05/07/2013 - 07/28/2013 Provider : EILEEN VINCENT MD Diagnosis: PRESENILE HANNY IA It is now 28mg qd Last Documented On 07/28/2013 3:48PM By Radha Vincent MD ; [facility] Namenda 10 MG OR TABS 05/07/2013 - 11/21/2013 Provider : EILEEN VINCENT MD Diagnosis: PRESENILE HANNY IA Namenda XR 28 mg a day for 9 0 days and 3 refill--pt started 05/07/13 Last Documented On 11/21/2013 4:11PM By Radha Vincent MD ; [facility] Oleptro 150 MG OR TB24 05/07/2013 - 10/23/2013 Provider: EILEEN CONNORS MD Diagnosis: GENERALIZED ANXI ETY DIS Last Documented On 10/23/2013 3:17PM By Radha Vincent MD ; [facility] Escitalopram Oxalate 20 MG OR TABS 05/07/2013 - 07/28/2013 Provider: EILEEN VINCENT MD Diagnosis: GENERALIZED ANXI ETY DIS Last Documented On 07/28/2013 3:48PM By Radha Vincent MD ; [facility] Wellbutrin XL 150 MG OR TB24 05/07/2013 - 07/28/2013 Provider: EILEEN VINCENT MD Diagnosis: BIPOL I CUR DEPR ES NOS 1 tablet every morning Last Documented On 07/28/2013 3:48PM By Radha Vincent MD ; [facility] Aricept 23 MG OR TABS 05/07/2013 - 05/07/2013 Provider : Diagnosis: Last Documented On 3 2:44PM By TAYLA LIMA Timo ; [facility] Aricept 23 MG OR TABS 05/07/2013 - 05/07/2013 Provider : Diagnosis: It is now 28mg qd Last Documented On 05/07/2013 3:19PM By Radha Vincent MD ; [facility] Atorvastatin Calcium 20 MG OR TABS 01/28/2013 - 2012 Provider: Diagnosis: Last Documented On 3 3:46PM By TERRI CASH ; [facility] Synthroid 88 MCG OR TABS 01/28/2013 - 11/10/2015 Provi itz: Diagnosis: Last Documented On 6 10:30AM By WILMER REDDY LPN ; [facility] HM Vitamin D 25 MCG (1000 UT) OR TABS 01/28/2013 - Provider: Diagnosis: 2 a day Last Documented On 4 3:00PM By TERRI CASH ; [facility] Namenda 10 MG OR TABS 01/28/2013 - 05/07/2013 Provider : EILEEN VINCENT MD Diagnosis: PRESENILE HANNY IA Finish current supply of 10 mg bid and then start Namenda XR 28 mg a day for 90 days and 3 refill Last Documented On 05/07/2013 3:19PM By Radha Vincent MD ; [facility] Aricept 23 MG OR TABS 01/28/2013 - 05/07/2013 Provider : EILEEN VINCENT MD Diagnosis: PRESENILE HANNY IA Last Documented On 3 2:43PM By TAYLA CASH ; [facility] Wellbutrin XL 150 MG OR TB24 01/28/2013 - 05/07/2013 Provider: EILEEN VINCENT MD Diagnosis: GENERALIZED ANXI ETY DIS 1 tablet every morning Last Documented On 05/07/2013 3:19PM By Radha Vincent MD ; [facility] Oleptro 150 MG OR TB24 01/28/2013 - 05/07/2013 Provider: EILEEN CNONORS MD Diagnosis: GENERALIZED ANXI ETY DIS Last Documented On 05/07/2013 3:19PM By Radha Vincent MD ; [facility] Escitalopram Oxalate 20 MG OR TABS 01/28/2013 - 05/07/2013 Provider: EILEEN VINCENT MD Diagnosis: GENERALIZED ANXI ETY DIS Last Documented On 05/07/2013 3:19PM By Radha Vincent MD ; [facility] lamoTRIgine 200 MG OR TABS 01/28/2013 - 05/07/2013 Provider: EILEEN VINCENT MD Diagnosis: BIPOL I CUR DEPR ES NOS Last Documented On 05/07/2013 3:19PM By Radha Vincent MD ; [facility] Latuda 20 MG OR TABS 01/28/2013 - 05/07/2013 Provider: EILEEN VINCENT MD Diagnosis: BIPOL I CUR DEPR ES NOS Last Documented On 3 2:45PM By TAYLA CASH ; [facility] Escitalopram Oxalate 20 MG OR TABS 11/08/2012 - 01/28/2013 Provider: EILEEN VINCENT MD Diagnosis: GENERALIZED ANXI ETY DIS Last Documented On 01/28/2013 4:46PM By Radha Vincent MD ; [facility] lamoTRIgine 200 MG OR TABS 11/08/2012 - 01/28/2013 Provider: EILEEN VINCENT MD Diagnosis: BIPOL I CUR DEPR ES NOS Last Documented On 01/28/2013 4:46PM By Radha Vincent MD ; [facility] Aricept 23 MG OR TABS 11/08/2012 - 01/28/2013 Provider : EILEEN VINCENT MD Diagnosis: PRESENILE HANNY IA Last Documented On 01/28/2013 4:46PM By Radha Vincent MD ; [facility] Oleptro 150 MG OR TB24 11/08/2012 - 01/28/2013 Provider: EILEEN CONNORS MD Diagnosis: GENERALIZED ANXI ETY DIS Last Documented On 01/28/2013 4:46PM By Radha Vincent MD ; [facility] Namenda 10 MG OR TABS 11/08/2012 - 01/28/2013 Provider : EILEEN VINCENT MD Diagnosis: PRESENILE HANNY IA Last Documented On 01/28/2013 8:04PM By Radha Vincent MD ; [facility] Latuda 20 MG OR TABS 11/08/2012 - 01/28/2013 Provider: EILEEN VINCENT MD Diagnosis: BIPOL I CUR DEPR ES NOS Last Documented On 01/28/2013 4:46PM By Radha Vincent MD ; [facility] Wellbutrin XL 150 MG OR TB24 09/04/2012 - 01/28/2013 Provider: EILEEN VINCENT MD Diagnosis: BIPOL I CURR DEP W/O PSY 1 tablet every morning Last Documented On 01/28/2013 4:46PM By Radha Vincent MD ; [facility] Latuda 20 MG OR TABS 09/04/2012 - 11/08/2012 Provider: EILEEN VINCENT MD Diagnosis: BIPOL I CURR DEP W/O PSY Last Documented On 11/08/2012 3:23PM By Radha Vincent MD ; [facility] lamoTRIgine 200 MG OR TABS 09/04/2012 - 11/08/2012 Provider: EILEEN VINCENT MD Diagnosis: BIPOL I CURR DEP W/O PSY Last Documented On 11/08/2012 3:23PM By Radha Vincent MD ; [facility] Namenda 10 MG OR TABS 09/04/2012 - 11/08/2012 Provider : EILEEN VINCENT MD Diagnosis: PRESENILE HANNY IA Last Documented On 11/08/2012 3:23PM By Radha Vincent MD ; [facility] Aricept 23 MG OR TABS 09/04/2012 - 11/08/2012 Provider : EILEEN VINCENT MD Diagnosis: PRESENILE HANNY IA Last Documented On 11/08/2012 3:23PM By Radha Vincent MD ; [facility] Oleptro 150 MG OR TB24 09/04/2012 - 11/08/2012 Provider: EILEEN CONNORS MD Diagnosis: GENERALIZED ANXI ETY DIS Last Documented On 11/08/2012 3:23PM By Radha Vincent MD ; [facility] Escitalopram Oxalate 20 MG OR TABS 09/04/2012 - 11/08/2012 Provider: EILEEN VINCENT MD Diagnosis: GENERALIZED ANXI ETY DIS Last Documented On 11/08/2012 3:23PM By Radha Vincent MD ; [facility] Wellbutrin XL 150 MG OR TB24 08/07/2012 - 09/04/2012 Provider: EILEEN VINCENT MD Diagnosis: BIPOL I CURR DEP W/O PSY 1 tablet every morning Last Documented On 09/04/2012 2:41PM By Radha Vincent MD ; [facility] Latuda 20 MG OR TABS 08/07/2012 - 09/04/2012 Provider: EILEEN VINCENT MD Diagnosis: BIPOL I CURR DEP W/O PSY Last Documented On 09/04/2012 8:51PM By Radha Vincent MD ; [facility] Aricept 23 MG OR TABS 08/07/2012 - 09/04/2012 Provider : EILEEN VINCENT MD Diagnosis: PRESENILE HANNY [place] Last Documented On 09/04/2012 8:51PM By Radha Vincent MD ; [facility] Oleptro 150 MG OR TB24 08/07/2012 - 09/04/2012 Provider: EILEEN CONNORS MD Diagnosis: GENERALIZED ANXI ETY DIS Last Documented On 09/04/2012 8:51PM By Radha Vincent MD ; [facility] Escitalopram Oxalate 20 MG OR TABS 08/07/2012 - 09/04/2012 Provider: EILEEN VINCENT MD Diagnosis: GENERALIZED ANXI ETY DIS Last Documented On 09/04/2012 8:51PM By Radha Vincent MD ; [facility] lamoTRIgine 200 MG OR TABS 08/07/2012 - 09/04/2012 Provider: EILEEN VINCENT MD Diagnosis: BIPOL I CURR DEP W/O PSY Last Documented On 09/04/2012 8:51PM By Radha Vincent MD ; [facility] Namenda 10 MG OR TABS 08/07/2012 - 09/04/2012 Provider : EILEEN VINCENT MD Diagnosis: PRESENILE HANNY [place] Last Documented On 09/04/2012 8:51PM By Radha Vincent MD ; [facility] Aspirin 81 MG OR CHEW 08/02/2012 - 01/28/2013 Provider : Diagnosis: Last Documented On 3 3:45PM By TERRI CASH ; [facility] Namenda 10 MG OR TABS 08/02/2012 - 08/07/2012 Provider : Diagnosis: Last Documented On 08/07/2012 2:00PM By Radha Vincent MD ; [facility] Aricept 23 MG OR TABS 08/02/2012 - 08/07/2012 Provider : Diagnosis: Last Documented On 08/07/2012 2:00PM By Radha Vincent MD ; [facility] Latuda 20 MG OR TABS 08/02/2012 - 08/07/2012 Provider: Diagnosis: Last Documented On 08/07/2012 2:00PM By Radha Vincent MD ; [facility] Omeprazole 20 MG OR TBEC 08/02/2012 - 11/10/2015 Provi itz: Diagnosis: Last Documented On 6 10:28AM By WILMER REDDY LPN ; [facility] amLODIPine Besy-Benazepril HCl 5-10 MG OR CAPS 1 10/03/2011 - 11/10/2015 Provider: Diagnosis: Last Documented On 6 10:22AM By WILMER REDDY LPN ; [facility] Escitalopram Oxalate 20 MG OR TABS 08/02/2012 - 2011 Provider: Diagnosis: Last Documented On 08/07/2012 2:00PM By Radha Vincent MD ; [facility] buPROPion HCl ER (SR) 150 MG OR TB12 08/02/2012 - 07/14 Provider: Diagnosis: every morning Last Documented On 08/07/2012 2:00PM By Radha Vincent MD ; [facility] lamoTRIgine 200 MG OR TABS 08/02/2012 - 08/07/2012 Pro vider: Diagnosis: Last Documented On 08/07/2012 2:00PM By Radha Vincent MD ; [facility] Oleptro 150 MG OR TB24 08/02/2012 - 08/07/2012 Provide r: Diagnosis: Last Documented On 08/07/2012 2:00PM By Radha Vincent MD ; [facility] Levothyroxine Sodium 88 MCG OR TABS 08/02/2012 - 05/07 Provider: Diagnosis: Last Documented On 3 2:45PM By TAYLA CASH ; [facility] Calcium 600/Vitamin D 600-400 MG-UNIT OR TABS 08/02/20 - 11/10/2015 Provider: Diagnosis: 2 tablets daily Last Documented On 6 10:20AM By WILMER REDDY LPN ; [facility] Atorvastatin Calcium 10 MG OR TABS 08/02/2012 - 2012 Provider: Diagnosis: Last Documented On 3 2:34PM By TERRI BERNARD ; [facility] Metoprolol Tartrate 25 MG OR TABS 08/02/2012 - 016 Provider: Diagnosis: take one-half tablet 2 times a day Last Documented On 6 10:27AM By WILMER REDDY LPN ; [facility] Diclofenac Sodium 75 MG OR TBEC 08/02/2012 - 3 Provider: Diagnosis: take one tablet twice a day Last Documented On 3 3:45PM By TERRI CASH ; [facility] Furosemide 20 MG OR TABS 08/02/2012 - 02/09/2014 Provi itz: Diagnosis: take 1 tab once daily prn for edema Last Documented On 4 3:01PM By TERRI CASH ; [facility] Medications Administered Includes: Administered Medications in patient's chart No Administered Medications Recorded Results Includes: Results from 10/06/2023 through 10/06/2024 No Results Recorded For Specified Dates History of Present Illness History of Present Illness not supported for this document type No History of Present Illness Recorded Social History Description Last Updated Current nonsmoker 12/20/2020 Last Documented On 1 1:57PM ; [facility] Non-smoker 04/21/2020 Last Documented On 0 8:09AM ; [facility] Daily coffee consumption -- no coffee, 2 glasses of unsweetened tea daily 08/21/2019 Last Documented On 0 2:23AM ; [facility] No tobacco use 06/12/2018 Last Documented On 8 6:20AM ; [facility] She was born in [place], [place]. She was raised in [place], [place] and [place], [place]. She was close to her parents while growing up and they were supportive of her. 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 problems 11/08/2012 Last Documented On 3 4:16PM ; [facility] Not using alcohol 08/02/2012 Last Documented On 2 11:23AM ; [facility] Not using drugs (Illicit) 08/02/2012 Last Documented On 2 11:23AM ; [facility] Smoking status : Never smoked 08/02/2012 Last Documented On 2 11:23AM ; [facility] Procedures and Surgical History Surgical History Last Updated 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 04/201811/28/2018 Last Documented On 9 3:48AM ; [facility] History of hallux valgus (bunion) correc tion -- 08/01/17 09/07/2017 Last Documented On 8 7:38AM ; [facility] History of excision left foot bunion-- 2 012 01/28/2015 Last Documented On 5 10:16PM ; [facility] History of tubal ligation 01/28/2015 Last Documented On 5 10:16PM ; [facility] History of hysterectomy 01/28/2015 Last Documented On 5 10:16PM ; [facility] History of cholecystectomy 08/02/2012 Last Documented On 2 11:23AM ; [facility] Medical History Includes: Medical History in patient's chart Description Last Updated History of bronchitis - give n Albuterol HFA 90 mcg and Tessalon Perles 100 mg 09/03/22 10/17/2022 Last Documented On 3 1:02AM ; [facility] History of fracture of the n juan f bones - given Hydrocodone from injuries sustained from fall at her son's [employer] business 08/28/22 10/17/2022 Last Documented On 3 1:02AM ; [facility] History of fall risk -- pt [...] going down while she was at the [employer]; she had a nosebleed and a sore right knee; she did not go to the Dr. or ER ~-- #11 -- patient missed step at the [employer] and fractured her nose; she wore a splint 10/17/2022 Last Documented On 3 1:02AM ; [facility] History of obstructive sleep apnea -- sleep study done 05/22/13 at [facility] under Dr. Cutler. She was wearing a dental device purchased from [facility] dentistry. Patient wears her dental device. She is getting it refitted 10/2022. She uses O2 at 2 liter as needed 10/17/2022 Last Documented On 3 1:02AM ; [facility] Primary Care Provider: Dr. Angela Carrizales ~Dr. Sierra Mcgarry -- Account Manager Forest Service ~Dr. Naveed Lala, DPM -- Avionics Supervisor ~Dr. Wolf Mitchell -- Collection Clerk ~Dr. Keanu Mitchell, DMD -- Dentist ~Dr. Joshua Hanson, OD -- Health Therapist 07/17/2022 Last Documented On 2 12:56PM ; [facility] History of hammer toe - 2nd toe of left foot straightened by Dr. Hior Arthur 11/05/20 -- given Keflex 500 mg 04/05/2022 Last Documented On 2 12:54PM ; [facility] History of coronavirus 2019- nCoV vaccine - Pfizer #1 11/02/20 #2 03/23/21 -- as of 07/29/21 no booster yet 07/29/2021 Last Documented On 2 8:23AM ; [facility] History of vaginal candidiasis - given F lagyl 500 mg 11/06/20 12/20/2020 Last Documented On 1 1:57PM ; [facility] History of colonoscopy - 11/202012/21/19 21 Last Documented On 1 1:57PM ; [facility] History of hearing loss - wears bilatera l hearing aids 04/10/2019 Last Documented On 9 11:01PM ; [facility] History of iron deficiency - started on Ferrous Sulfate 325 mg [address] Goldie Kidd in 01/201904/10/2019 Last Documented On 9 11:01PM ; [facility] History of head injury /brain trauma Last Documented On 8 9:42PM ; [facility] History of sprain of the left foot 01/03 Last Documented On 8 9:42PM ; [facility] History of tinea pedis 08/01/2016 Last Documented On 6 3:13PM ; [facility] History of Epidural Steroid Injection -- 03/08/[address] Yi for back pain 03/13/2016 Last Documented On 6 7:20AM ; [facility] History of irritable bowel syndrome 01/13 Last Documented On 4 9:33PM ; [facility] History of esophageal reflux 08/02/2012 Last Documented On 2 11:23AM ; [facility] History of hypothyroidism 08/02/2012 Last Documented On 2 11:23AM ; [facility] History of hyperlipidemia 08/02/2012 Last Documented On 2 11:23AM ; [facility] History of hypertension 08/02/2012 Last Documented On 2 11:23AM ; [facility] Family History Includes: Family History in patient's chart Description Last Updated Paternal history of depression -- father 10/15/2014 Last Documented On 5 6:55AM ; [facility] Maternal history of depression -- mother 10/15/2014 Last Documented On 5 6:55AM ; [facility] Sororal history of depression -- sister 10/15/2014 Last Documented On 5 6:55AM ; [facility] Maternal history of anxiety disorder NOS -- mother 10/15/2014 Last Documented On 5 6:55AM ; [facility] Paternal history of anxiety disorder NOS -- father 10/15/2014 Last Documented On 5 6:55AM ; [facility] Review of Systems Review of Systems not supported for this document type No Review of Systems Recorded Mental Status Description Mini-mental status was perfo rmed 29/30 [...] Documented On 9 1:33PM ; [facility] Sulfa Antibiotics Allergy 08/02/2012 A ctive Last Documented On 4 11:08AM ; [facility] Note: Imported from external source. Neupro Allergy rash 10/23/2013 Active Last Documented On 4 11:08AM ; [facility] Note: Imported from external source. Insurance Includes: Active Insurance Policies Plan Name Member ID Group # Subscriber Relationship Effect kofi Dates 1 - [facility] [id number] EDITH DARBY Self 2 - [facility] [id number] INGRID DARBY 0 - Unknown Clinical Notes Includes: Signed Clinical Notes starting from 09/01/2022 No Clinical Notes Recorded
--- OUTSIDE RECORDS SUMMARY | 2024-10-06 15:40 | XMS_ITS | Encounter Summary ---
Author Organization [facility] Address [address] [place] [address] Phone Care Team Providers Care Spa Host Name Role Phone Emmett Carrizales MD Primary Care Provider +1- [phone] Karolyn Tobar RN Unavailable Unavailable Karolyn Tobar RN Unavailable Unavailable Ifrah Whitfield APRN, CNP Unavailable +1- [phone] Reason for Visit * Reason Comments Medication Refill Encounter Details Date Type Department Care Team (Late st Contact Info) Description 03/14/2023 Refill [facility] Emergency [address] [place] [address] Emmett Carrizales MD [address] [place] [address] Medication Refill Social History Tobacco [...] Visit [facility] [place] [address] [place] [address] Emmett Carrizales MD [address] [place] [address] documented as of this encounter Visit Diagnoses Not on filedocumented in this encounter Additional Health Concerns Assessment Noted Time PHQ-9 Depression Total Score: 0 06/01/20 21 3:00 PM CDT documented as of this encounter Care Teams Spa Host Relationship Specialty Start Date End Date Emmett Carrizales MD [address] [place] [address] PCP - General Internal Medicine 06/29/15 Karolyn Tobar, [place] Aerial Gunner Superintendent 06/07/23 09/12/23 Karolyn Tobar RN [place] Nurse Aerial Gunner Superintendent 06/07/23 Ifrah Whitfield APRN, AIRPLANE RIGGER #[address] [address] Nurse Practitioner Advanced Practice Nurse 03/06/22 documented as of this encounter
--- OUTSIDE RECORDS SUMMARY | 2024-10-06 15:40 | XMS_ITS | Encounter Summary ---
Author Organization [facility] Address [address] [place] [address] Phone Care Team Providers Care Web Content Writer Name Role Phone Emmett Carrizales MD Primary Care Provider +1- [phone] Karolyn Tobar RN Unavailable Unavailable Karolyn Tobar RN Unavailable Unavailable Ifrah Whitfield APRN, CNP Unavailable +1- [phone] Reason for Visit * Reason Comments Medication Refill Encounter Details Date Type Department Care Team (Late st Contact Info) Description 02/14/2023 Refill [facility] - Internal Medicine - [place] [address] [place] [address] Emmett Carrizales MD [address] [place] [address] Medication Refill Social History Tobacco Use Types Packs/Day Years Used Date Smoking Tobacco: Never Smokeless Tobacco: Never Alcohol Use Standard Drinks/Week Comments Not Currently 0 (1 standard drink = 0.6 oz pur e alcohol) PHQ-2 Answer Date Recorded Total Score - Questions 1-9 0 102 Education Answer Date Recorded What is the [...] Dept 12/21/22 Office Visit Emmett Carrizales MD [facility] [place] 11/23/22 Office Visit Kori Hudson PAC [facility] [place] 09/07/22 Office Visit Emmett Carrizales MD [facility] [place] 08/16/22 Office Visit Emmett Carrizales MD [facility] [place] 05/10/22 Office Visit Emmett Carrizales MD [facility] [place] 02/21/22 Telemedicine Emmett Carrizales MD [facility] [place] Showing recent visits within past 365 days and meeting all other requirements Future Appointments Date Type Provider Dept 04/11/23 Appointment Emmett Carrizales MD [facility] [place] Showing future appointments within next 90 days and meeting all other requirements documented in this encounter Plan of Treatment Upcoming Encounters Date Type Department Care Team (Late st Contact Info) Description 01/26/2025 9:45 AM CDT Office Visit [facility] [place] [address] [place] [address] Emmett Carrizales MD [address] [place] [address] documented as of this encounter Visit Diagnoses Not on filedocumented in this encounter Additional Health Concerns Assessment Noted Time PHQ-9 Depression Total Score: 0 06/01/20 21 3:00 PM CDT documented as of this encounter Care Teams Web Content Writer Relationship Specialty Start Date End Date Emmett Carrizales MD [address] [place] [address] PCP - General Internal Medicine 06/29/15 Karolyn Tobar, RN [place] Wire Mill Operator 06/07/23 09/12/23 Karolyn Tobar RN [place] Nurse Wire Mill Operator 06/07/23 Ifrah Whitfield APRN, ASSISTANT MANAGER PT #[address] [address] Nurse Practitioner Advanced Practice Nurse 03/06/22 documented as of this encounter
--- OUTSIDE RECORDS SUMMARY | 2024-10-06 15:40 | XMS_ITS | Encounter Summary ---
Author Organization [facility] Address [address] [place] [address] Phone Care Team Providers Care Rug Repairer Name Role Phone Emmett Carrizales MD Primary Care Provider +1- [phone] Karolyn Tobar RN Unavailable Unavailable Karolyn Tobar RN Unavailable Unavailable Ifrah Whitfield APRN, CNP Unavailable +1- [phone] Reason for Visit * Reason Comments Medication Refill Encounter Details Date Type Department Care Team (Late st Contact Info) Description 05/11/2023 Refill [facility] Emergency 1 [place] [address] Emmett Carrizales MD [address] [place] [address] Medication Refill Social History Tobacco [...] [facility] - [place] [address] [place] [address] Emmett Carrizales MD [address] [facility] [address] documented as of this encounter Visit Diagnoses Not on filedocumented in this encounter Additional Health Concerns Assessment Noted Time PHQ-9 Depression Total Score: 0 06/01/20 21 3:00 PM CDT documented as of this encounter Care Teams Rug Repairer Relationship Specialty Start Date End Date Emmett Carrizales MD [address] [place] [address] PCP - General Internal Medicine 06/29/15 Karolyn Tobar RN [place] Cat Hooker 06/07/23 09/12/23 Karolyn Tobar RN [place] Nurse Cat Hooker 06/07/23 Ifrah Whitfield, EMERGENCY CARE TECH, HEAD OF MATHEMATICS #[address] [address] Nurse Practitioner Advanced Practice Nurse 03/06/22 documented as of this encounter
--- OUTSIDE RECORDS SUMMARY | 2024-10-06 15:40 | XMS_ITS | Encounter Summary ---
Author Organization [facility] Address [address] [place] [address] Phone Care Team Providers Care Auto Rental Supervisor Name Role Phone Emmett Carrizales MD Primary Care Provider +1- [phone] Karolyn Tobar RN Unavailable Unavailable Karolyn Tobar RN Unavailable Unavailable Ifrah Whitfield APRN, CNP Unavailable +1- [phone] Reason for Visit * Reason Comments Medication Refill Encounter Details Date Type Department Care Team (Late st Contact Info) Description 03/12/2023 Refill [facility] - Internal Medicine - [place] [address] [place] [address] Emmett Carrizales MD [address] [place] [address] Medication Refill Social History Tobacco Use Types [...] Visit [facility] [address] [place] [address] Emmett Carrizales MD [address] [place] [address] documented as of this encounter Visit Diagnoses Not on filedocumented in this encounter Additional Health Concerns Assessment Noted Time PHQ-9 Depression Total Score: 0 06/01/20 21 3:00 PM CDT documented as of this encounter Care Teams Auto Rental Supervisor Relationship Specialty Start Date End Date Emmett Carrizales MD [address] [place] [address] PCP - General Internal Medicine 06/29/15 Karolyn Tobar, RN [place] Eradicator 06/07/23 09/12/23 Karolyn Tobar, RN [place] Nurse Eradicator 06/07/23 Ifrah Whitfield APRN, SPACE SCHEDULER #[address] [address] Nurse Practitioner Advanced Practice Nurse 03/06/22 documented as of this encounter
--- OUTSIDE RECORDS SUMMARY | 2024-10-06 15:40 | XMS_ITS | Encounter Summary ---
Author Organization [facility] Address [address] [place] [address] Phone Care Team Providers Care Chauffeur Airport Limousine Name Role Phone Emmett Carrizales MD Primary Care Provider +1- [phone] Karolyn Tobar RN Unavailable Unavailable Karolyn Tobar RN Unavailable Unavailable Ifrah Whitfield APRN, CNP Unavailable +1- [phone] Reason for Visit * Reason Comments Medication Refill Encounter Details Date Type Department Care Team (Late st Contact Info) Description 05/02/2023 Refill [facility] Emergency 1 [place] [address] Emmett Carrizales MD [address] [place] [address] Medication Refill Social History Tobacco [...] Visit [facility] - Internal Medicine [facility] [address] [place] [address] Emmett Carrizales MD [address] [place] [address] documented as of this encounter Visit Diagnoses Not on filedocumented in this encounter Additional Health Concerns Assessment Noted Time PHQ-9 Depression Total Score: 0 06/01/20 21 3:00 PM CDT documented as of this encounter Care Teams Chauf[employer]ur [employer] Limousine Relationship Specialty Start Date End Date Emmett Carrizales MD [address] [place] [address] PCP - General Internal Medicine 06/29/15 Karolyn Tobar, RN [place] Alligator Shear Operator 06/07/23 09/12/23 Karolyn Tobar RN [place] Nurse Alligator Shear Operator 06/07/23 Ifrah Whitfield APRN, MASTER CONTROL TECHNICIAN #[address] [address] Nurse Practitioner Advanced Practice Nurse 03/06/22 documented as of this encounter
--- OUTSIDE RECORDS SUMMARY | 2024-10-06 15:40 | XMS_ITS | Encounter Summary ---
Author Organization [facility] Address [address] [place] [address] Phone Care Team Providers Care Battery Charger Tester Name Role Phone Emmett Carrizales MD Primary Care Provider +1- [phone] Karolyn Tobar RN Unavailable Unavailable Karolyn Tobar RN Unavailable Unavailable Ifrah Whitfield APRN, CNP Unavailable +1- [phone] Reason for Visit * Reason Comments Medication Refill Encounter Details Date Type Department Care Team (Late st Contact Info) Description 01/11/2021 Refill [facility] - Internal Medicine - [place] [address] [place] [address] Emmett Carrizales MD [address] [place] [address] Medication Refill Social History Tobacco Use Types [...] Visit [facility] [address] [place] [address] Emmett Carrizales MD [address] [place] [address] documented as of this encounter Visit Diagnoses Not on filedocumented in this encounter Additional Health Concerns Infection Onset Date Last Indicated Resolved Time COVID - 19 02/21/2022 02/21/2022 03/03/2022 12:1 6 AM CDT documented as of this encounter Care Teams Battery Charger Tester Relationship Specialty Start Date End Date Emmett Carrizales MD [address] [place] [address] PCP - General Internal Medicine 06/29/15 Karolyn Tobar, [place] Station Installer And Repairer 06/07/23 09/12/23 Karolyn Tobar RN [place] Nurse Station Installer And Repairer 06/07/23 Ifrah Whitfield APRN, PANTOMIMIST #[address] [address] Nurse Practitioner Advanced Practice Nurse 03/06/22 documented as of this encounter
--- OUTSIDE RECORDS SUMMARY | 2024-10-06 15:40 | XMS_ITS | CONTINUITY OF CARE DOCUMENT ---
Author Name shi osullivan Address Unknown Organization [facility] Address [id number] [place] [address] [address] [place] [address] Phone [phone] Care Team Providers Care Hide Inspector Name Role Phone shi osullivan Unavailable Unavailable
== END 2024-10-06 13:36 | disposition home or self-care (01) ==
LOC: ANHIMG 13:38
PROVIDERS: PCP Internal Medicine; Visit Provider Surgery
DX: R92.8 Other abnormal and inconclusive findings on diagnostic imaging of breast (principal); N63.10 Unspecified lump in the right breast, unspecified quadrant
CPT/HCPCS: 76642

== ENCOUNTER 2025-01-19 15:25 | Outpatient (CLI) | payer MEDICARE, BC, SELFPAY ==
--- NOTE | ~2025-01-19 | MM_ITS ---
EXAMINATION: MM screening chiqui BI w olaf HISTORY: Screening TECHNIQUE: Craniocaudal and mediolateral oblique 3-D tomosynthesis images were obtained and synthetic 2-D images were generated. CAD analysis was submitted and interpreted. COMPARISON: Comparison to multiple prior studies sequentially, with oldest reviewed study dated 07/13. BREAST PARENCHYMAL COMPOSITION: Not dense: There are scattered areas of fibroglandular density. FINDINGS: There is an enlarging mass in the lower inner quadrant of the right breast. The left breast is stable without evidence for malignancy. IMPRESSION: 1. Enlarging right breast mass. 2. Additional mammographic views and possible breast ultrasound are recommended. BI-RADS Category 0: Incomplete: Needs additional imaging evaluation. Reviewed, dictated and finalized at location B. IMPRESSION: 1. Enlarging right breast mass. 2. Additional mammographic views and possible breast ultrasound are recommended . BI-RADS Category 0: Incomplete: Needs additional imaging evaluation.
--- OUTSIDE RECORDS SUMMARY | 2025-01-19 16:20 | XMS_ITS | Data Portability ---
Author Organization [place] [facility] [employer], Main Office Address [address] [place] [address] Care Team Providers Care Soaker Hides Name Role Phone BETSY VALENCIA Primary Care Provider BETSY VALENCIA Referring Provider Assessment Encounter Date Assessment Date Assessment LastModified by Organization Details LastModified Time 11/24/2024 11/24/2024 This note is dictated and transcribed by [employer]. Loom [employer] Checker variances may occur. Despite proofreading, typographical errors may occur. Occasional wrong-word or 'efotj-b-vomd' substitutions may have occurred due to the inherent limitations of voice recording. Read the chart carefully and recognize, using context, where substitutions have occurred. Not available 11/26/2024 08:13:40 12/01/2024 12/01/2024 This note is dictated and transcribed by [employer]. Loom [employer] variances may occur. Despite proofreading, typographical errors may occur. Occasional wrong-word or 'xxoqa-s-wdcc' substitutions may have occurred due to the inherent limitations of voice recording. Read the chart carefully and recognize, using context, where substitutions have occurred. Not available 12/01/2024 16:15:07 12/08/2024 12/08/2024 This note is dictated and transcribed by [employer]. L[employer]er variances may occur. Despite proofreading, typographical errors may occur. Occasional wrong-word or 'fsejg-c-covc' substitutions may have occurred due to the inherent limitations of voice recording. Read the chart carefully and recognize, using context, where substitutions have occurred. Not available 12/08/2024 15:48:43 12/22/2024 12/22/2024 This note is dictated and transcribed by [employer]. Loom [employer]er variances may occur. Despite proofreading, typographical errors may occur. Occasional wrong-word or 'qrppy-h-uvkk' substitutions may have occurred due to the inherent limitations of voice recording. Read the chart carefully and recognize, using context, where substitutions have occurred. [email or web address] Not available 12/22/2024 15:30:26 01/12/2025 01/12/2025 This note is dictated and transcribed by [employer]. Loom Stop Checker variances may occur. Despite proofreading, typographical errors may occur. Occasional wrong-word or 'qyoeh-h-ywno' substitutions may have occurred due to the inherent limitations of voice recording. Read the chart carefully and recognize, using context, where substitutions have occurred. Not available 01/12/2025 11:16:28 Plan of Treatment Reminders Order Date Submit Date Provider Last Modified By Organization Details Last Modified Time Details Appointments None recorded. Lab None recorded. Referral None recorded. Procedures None recorded. Surgeries None recorded. Imaging XR, foot, 3 or more view [address] [place] [address] [facility], [address], [place], [address], 5 11:18:20 XR, foot, 3 or more view 2024 [email or web address] [place] [address] [facility], [address], [place], [address], 5 08:17:29 Medication Orders doxycycline hyclate 100 mg capsule 2024 025 [facility], [address], [place], [address], 5 16:14:12 Patient TargetsNo targets recorded. Patient InstructionsNo instructions recorded. Reason for Referral None Reported. Results Created Date Observation Date Name Description Value Unit Range Abnormal Flag Note LastModifiedBy Organization Detail LastModifiedTime 11/15/19 25 11/14/2024 XR, foot, 2 view [facility] [address] [facility] [place] [address] [facility]R [facility] Access ion #: [id number] Sex: F : 1949 6 Locati on: Attend ing Physic yamilka: NAVEED YUAN Orderi Physic yamilka: NAVEED YUAN Exam Date: 11/15/19 9:54 AM Exam Name: XR FOOT RT 2V Admitt ing Diagno sis(es ): RADIOL OGY REPORT - FINAL EXAM: XR FOOT RT 2V HISTOR Y: post-o p 74-yea r-old female status post right foot surger y. COMPAR NADINE: Radiog raphs dated 2024. TECHNI QUE: AP and latera l views of the right foot were perfor med. FINDIN GS: See below. IMPRES SERENE: 1. Interv al postop erativ e change s of right 1st MTP plate and screw fusion , resect ion of the 2nd toe proxim al phalan geal head, 2nd toe DIP and PIP joint K-wire fusion . No eviden ce of hardwa re failur e or compli cation at this time. Page 1 of 2 [facility] Jr hahn Name: JOSR BLAKE MS Access ion #: [id number] Sex: F : 1949 8 Exam Date: 11/15/19 9:54 AM Exam Name: XR FOOT RT 2V Admitt ing Diagno sis(es ): 2. No acute fractu re of the right foot. 3. 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 4. Other nonacu te findin gs includ e access ory navicu lar bone, planta r calcan eal bone spur, and congen ital fusion of the middle and distal phalan ges of the 5th toe. Create d and electr onical ly signed by: Dion cortes MD Signed Date: 11/15/19 11:21 AM (CT) Dictat ed by: Dion cortes MD (CT) (CT) Page 2 of 2 [email or web address] [facility] (Im[facility]) [address] [place], [address], 11/17/2024 09:03:30 11/15/19 25 11/14/2024 XR, foot, 3 or more view No observ ation record ed. [email or web address] [facility] [address] [place], [address], 11/17/2024 09:03:24 11/27/19 25 XR, foot, 3 or more view No observ ation record ed. [email or web address] [facility] [address], [place], [address], 11/26/2024 08:17:28 01/13/20 25 XR, foot, 3 or more view No observ ation record ed. [email or web address] [facility] [address], [place], [address], 01/12/2025 11:18:19 Result Notes None recorded. Problems Name Problem SNOMED Code Status Onset Date Resolution Date Notes Provider Name and Address Organization Details Recorded Time Hammer toe 082291538 Active 2019 Not Available [employer] 3 22:06:35 Hyperchole sterolemia 76389349 Active Not Available [facility] 3 22:06:35 Postoperat kofi visit 549749030 Active 2019 Not Available [facility] 3 22:06:35 Unable to cut own toenails 478145292 Active 2021 Not Available [facility] 3 22:06:35 Pain in toe 018635310 Active 2021 Not Available [facility] 3 22:06:35 Pain of toe of left foot 5330441961350 08 Active 2022 Not Available [employer] 3 22:06:36 Hypertensi ve disorder 99749013 Active Not Available [facility] 3 22:06:36 Ingrowing toenail 502135855 Active 2021 Not Available [facility] 3 22:06:36 Foot pain 33496427 Active 2019 Not Available [facility] 3 22:06:36 Dystrophia unguium 28589144 Active 2022 Not Available [facility] 3 22:06:36 Acquired hallux limitus of right great toe 6068194403618 100 Active 2022 Naveed Lala DPM [address], [place], [address] , [employer] 3 09:52:36 Hammer toe 008723678 Active 2022 Naveed Lala DPM [address], [address], [place], [address] , [employer] 3 09:53:00 Foot callus 380683479 Active 2022 Naveed Lala DPM [address], [address], [place], [address] , [employer] 3 09:53:10 Bunion 049392953 Active 2023 Naveed Lala DPM [address], [address], [place], [address] , [employer] 4 10:56:10 Bunion 821811448 Active 2023 Naveed Lala DPM [address], [address], [place], [address] , [employer] 4 10:56:17 Pain in both feet 8312758830666 9102 Active 2023 Naveed Lala DPM [address], [address], [place], [address] , [employer] 4 10:56:22 Callosity on toe 598437135 Active 2023 Naveed Lala DPM [address], [address], [place], [address] , [employer] [facility] [employer] [facility] 4 10:56:36 Acute postoperat kofi pain 1483839122074 05 Active 2023 Naveed Lala DPM [address], [address], [place], [address] , [employer] 4 09:11:28 Postoperat kofi care Active 2023 Naveed Lala DPM [address], [address], [place], [address] , [employer] 4 09:12:00 Ingrowing nail of toe of right foot 3595456190006 9102 Active 2023 Naveed Lala DPM [address], [address], [place], [address] , [employer] 4 11:30:59 Closed bimalleola r fracture of left ankle 5070580572975 9103 Active 2023 Naveed Lala DPM [address], [place], [address] , [employer] [facility] [employer] [facility] 4 11:32:43 Swelling of bilateral lower limbs 626375593 Active 2023 Naveed Lala DPM [address], [place], [address] , [employer] [facility] 4 12:22:19 Pain of toe of right foot 4564402913074 Active 2024 Naveed Lala DPM [address], [place], [address] , [employer] [facility] [employer] [facility] 5 10:38:01 Hammer toe 432874092 Active 2024 Naveed Lala DPM [address], [place], [address] , [employer] 5 10:38:58 [place] of toe 78915047 Active 2024 Naveed Lala DPM [address], [address], [place], [address] , [employer] 5 10:39:11 Cellulitis of foot 181775397 Active 2024 Naveed Lala DPM [address], [address], [place], [address] , [employer] 5 16:13:23 Dehiscence of external surgical incision wound 6377860601314 08 Active 2024 Naveed Lala DPM [address], [place], [address] , [employer] 5 16:14:47 Problem Notes None recorded. Procedures Surgical History Date Name Laterality Status Provider Name and Address Organization Details Recorded Time 5 Suture Removal completed Naveed Lala DPM [address], [address], [place], [address], [employer] 12/08/2024 15:48:36 4 Partial Nail [employer] Matrixectomy-Ri ght completed Naveed Lala DPM [address], [address], [place], [address], [employer] 03/11/2024 11:29:59 4 Suture Removal completed TYLER Loza [address], [place], [address], [employer] 01/10/2024 10:15:37 4 Nail Debridement completed Naveed Lala DPM [address], [address], [place], [address], [employer] 12/11/2023 12:40:15 4 Nail Debridement completed Naveed Lala DPM [address], [place], [address], [employer] 09/24/2023 11:25:50 4 Callus Debridement 2-4 completed Naveed Lala DPM [address], [place], [address], [employer] [facility] [employer] [facility] 09/24/2023 12:47:17 3 Nail Debridement completed Naveed Lala DPM [address], [address], [place], [address], [employer] [facility] [employer] [facility] 06/21/2023 10:11:41 3 Nail Debridement completed Naveed Lala DPM [address], [address], [place], [address], [employer] [facility] [employer] [facility] 03/19/2023 09:52:23 3 Callus Debridement 2-4 completed Naveed Lala DPM [address], [place], [address], [employer] [facility] 03/19/2023 09:52:20 3 Nail Debridement completed Naveed Lala DPM [address], [place], [address], [employer] 12/11/2022 10:01:29 Imaging Results None recorded. Procedure Notes None recorded. Medical Equipment None Reported. Allergies Allergen ID Allergen Name Allergen Category Reaction Reaction Severity Criticality Documentation Date Start Date Code Code System Note Provider Name and Address Organization Details Recorded Time 49346 Substance with sulfonami de structure and antibacte rial mechanism of action (substanc e) medicatio n Not available Not available Not available 10/11/2022 75063 8003 SNOMED Not Available [facility] 22:07:26 Medications Name Sig Start Date Stop Date Status Note LastModified by Organization Details LastModified Time cyclobenzap rine 10 mg tablet 10/23 completed Not Available Not Available Not Available amoxicillin 500 mg capsule 10/23 completed Not Available Not Available Not Available lamotrigine 150 mg tablet TAKE ONE TABLET BY MOUTH TWO TIMES A DAY active Not Available Not Available No t Available doxycycline hyclate 100 mg capsule Take 1 capsule twice a day by oral route as directed for 10 days, for injury wound. 2024 active Not Available Not Available Not Avai lable atorvastati n 20 mg tablet TAKE ONE TABLET BY MOUTH DAILY LAST REFILL UNTIL SEEN active Not Available Not Available No t Available ropinirole 1 mg tablet DIRECTED -- 1/2 TAB IN THE EVENING FOR 1 WEEK THEN 1 TAB IN THE EVENING THEREAFTE R FOR RESTLESS LEGS 12/09 completed Not Available Not Available Not Available ketoconazol e 2 % shampoo active Not Available Not Available Not Available trazodone [...] completed Not Available Not Available Not Available prednisone 20 mg tablet 10/23 completed Not Available Not Available Not Available alendronate 70 mg tablet active Not Available Not Available Not Available ciprofloxac in 250 mg tablet 12/09 completed Not Available Not Available Not Available amoxicillin 500 mg tablet Take 1 tablet every 8 hours by oral route as directed for 7 days. 10/23 completed Not Available Not Available Not Available ciclopirox 8 % topical solution 12/09 completed [...] INTO THE LEFT EYE ONCE A DAY 10/23 completed Not Available Not Available Not Available [...] Not Available Not Available No t Available triamcinolo ne acetonide 0.1 % topical ointment 10/23 completed Not Available Not Available Not Available omeprazole 20 mg capsule,del ayed release active Not Available Not Available Not Available hydroxyzine HCl 25 mg tablet TAKE 1 OR 2 TABLETS BY MOUTH NEEDED FOR AGITATION /ANXIETY 12/09 completed Not Available Not Available Not Available mupirocin 2 % topical ointment APPLY A SMALL AMOUNT TO THE AFFECTED AREA right great toe BY TOPICAL ROUTE 3 TIMES PER DAY 10/23 completed Not Available Not Available Not Available furosemide 20 mg tablet TAKE ONE TABLET [...] NEEDED FOR SHORTNESS OF BREATH OR WHEEZING active Not Available Not Available No t Available ketoconazol e 2 % topical cream 10/23 completed Not Available Not Available Not Available clobetasol 0.05 % scalp solution 10/23 completed Not Available Not Available Not Available fluticasone propionate 50 mcg/actuati on nasal spray,suspe nsion 1 SPRAY NASAL DAILY ADMINISTE R INTO EACH NOSTRIL active Not Available Not Available No t Available dicyclomine 10 mg capsule TAKE 1 CAPSULE (10 MG TOTAL) BY MOUTH 3 (THREE) TIMES A DAY BEFORE MEALS. 10/23 completed Not Available Not Available Not Available naproxen 500 mg tablet 10/23 completed Not Available Not Available Not Available [...] Not Available Not Available No t Available rivastigmin e 4.6 mg/24 hour transdermal patch 10/23 completed Not Available Not Available Not Available azelastine 205.5 mcg (0.15 %) nasal spray 2 SPRAY INTRANASA L TWO TIMES A DAY ADMINISTE R INTO EACH NOSTRIL 12/09 completed Not Available Not Available Not Available Belsomra 10 mg tablet 10/23 completed Not Available Not Available Not Available Namzaric 28 mg-10 mg capsule sprinkle,ex tended release TAKE ONE CAPSULE BY MOUTH EVERY MORNING 10/23 completed Not Available Not Available Not Available Trintellix 10 mg tablet active Not Available Not Available Not Available Mydayis 37.5 mg capsule extended release 24 hr TAKE ONE CAPSULE BY MOUTH EVERY MORNING 10/23 completed Not Available Not Available Not Available Fluad 65yr up(PF)45 mcg(15 mcgx3)/0.5 mL intramuscul ar syringe 12/09 completed Not Available Not Available Not Available Vitals Date Recorded Body height Body mass index (BMI) Body weight Heart rate Respiratory rate Oxygen saturation Oxygen saturation in Arterial blood by Pulse oximetry Systolic blood pressure Diastolic blood pressure Provider Name and Address Organization Details Last Updated DateTime 5 160.02 cm 28.3 kg/m2 39975.7 8 g 110 /min 14 /min 98 % 98 % 124 mm[Hg] 68 mm[Hg] Tamiko Amandeep ZAVALA [employer] 5 15:49:41 Date Recorded Body height Body mass index (BMI) Body weight Heart rate Respiratory rate Oxygen saturation Oxygen saturation in Arterial blood by Pulse oximetry Systolic blood pressure Diastolic blood pressure Provider Name and Address Organization Details Last Updated DateTime 5 160.02 cm 28.3 kg/m2 68637.7 8 g 99 /min 14 /min 98 % 98 % 116 mm[Hg] 64 mm[Hg] Tamiko Bernstein LUCAS [employer] 5 15:29:56 Date Recorded Body height Body mass index (BMI) Body weight Heart rate Respiratory rate Oxygen saturation Oxygen saturation in Arterial blood by Pulse oximetry Systolic blood pressure Diastolic blood pressure Provider Name and Address Organization Details Last Updated DateTime 5 160.02 cm 28.3 kg/m2 67252.7 8 g 88 /min 14 /min 98 % 98 % 138 mm[Hg] 78 mm[Hg] Tamiko Bernstein LUCAS [employer] 5 14:57:59 Date Recorded Body height Body mass index (BMI) Body weight Heart rate Respiratory rate Oxygen saturation Oxygen saturation in Arterial blood by Pulse oximetry Systolic blood pressure Diastolic blood pressure Provider Name and Address Organization Details Last Updated DateTime 5 160.02 cm 28.3 kg/m2 19277.7 8 g 101 /min 14 /min 98 % 98 % 153 mm[Hg] 94 mm[Hg] Tamiko Amandeep [employer] [facility] 5 15:06:44 Date Recorded Body height Body mass index (BMI) Body weight Heart rate Respiratory rate Oxygen saturation Oxygen saturation in Arterial blood by Pulse oximetry Systolic blood pressure Diastolic blood pressure Provider Name and Address Organization Details Last Updated DateTime 5 160.02 cm 28.3 kg/m2 24642.7 8 g 73 /min 14 /min 98 % 98 % 159 mm[Hg] 92 mm[Hg] Tamiko Bernstein LUCAS [employer] 5 10:34:32 Social History None recorded. Functional Status None recorded. Mental Status None recorded. Family History Relationship Description Onset Age of this Age Resolved Age Notes LastModified by Organization Details LastModified Time Mother Malignant neoplasm of lung juan j Not available 03/13 12:29:44 Medical History No medical history recorded. Gynecological HistoryNo gynecological history recorded. Obstetrics History GPAL:G 0 P 0 0 0 0 Past Encounters Encounter ID Performer Location Encounter Start Date Encounter Closed Date Diagnosis/Indication Diagnosis SNOMED-CT Code Diagnosis ICD10 Code Diagnosis Note [id number] [facility] [address] [place] [address] 02/06/2022 00:00:00 02/06/2022 13:26:56 [id number] [facility] [address] [place] [address] 05/22/2022 00:00:00 05/22/2022 14:00:27 [id number] Naveed Lala DPM [facility] [address] [place] [address] 08/24/2022 00:00:00 08/24/2022 15:22:05 [id number] Naveed Lala DPM [facility] [address] [place] [address] 12/11/2022 09:38:08 12/11/2022 10:06:20 Dystrophia unguium 70308054 L60.3 Nails 1 through 10 were debrided with sharp mechanical debridemen t without incident. Nails were debrided and greater than 50% length and thickness where needed. Pain in toe 915664728 M7 9.675 M79.674 Secondary to toenails Unable to cut own toenails 815047280 Z74.1 broken arm left [id number] Naveed Lala DPM [facility] [address] [place] [address] 03/19/2023 09:33:47 03/19/2023 10:10:28 Acquired hallux limitus of right great toe 4027259757 876650 M20.5X1 Rx custom orthoticsC ontinue supportive shoe gearDenies surgeryfol low-up as needed Hammer toe 662118473 M20 .40 bilateral as above Dystrophia unguium 57715 009 L60.3 Nails 1 through 10 were debrided with sharp mechanical debridemen t without incident. Nails were debrided and greater than 50% length and thickness where needed. Foot callus 871220595 L8 4 debrided without incidentus e pumice stone on the area daily to prevent build-up in recurrence recommend wide shoe gear- educated on different shoe gear Unable to cut own toenails 579175144 Z74.1 [id number] [address] DPM [facility] [address] [place] [address] 06/21/2023 09:43:48 06/21/2023 10:20:32 Dystrophia unguium 90147511 L60.3 Nails 1 through 10 were debrided with sharp mechanical debridemen t without incident. Nails were debrided and greater than 50% length and thickness where needed.Fol low-up 3 months as needed Pain in toe 294635223 M7 9.675 M79.674 Secondary to toenails Unable to cut own toenails 896141056 Z74.1 [id number] D[address] [facility] [address] [place] [address] 09/24/2023 10:20:11 09/25/2023 14:03:07 Pain in both feet 7315178111 6378255 M79.671 M79.672 [facility] to be obtained December 09 Hammer toe 730761462 M20 .40 left 2nd and 5th- plan arthrodesi s left 2nd toe with arthroplas ty Derotation 5thright 2nd- plan arthroplas ty 2nd toe right Bunion 994234257 M21.61 9 right- distal Chevron osteotomy with possible Ritesh Callosity on toe 20091120 01 L84 lateral left 5th Pain in toe 148969841 M7 9.675 M79.674 Secondary to toenails [id number] Naveed Lala DPM [facility] [address] [place] [address] 12/10/2023 15:50:46 12/11/2023 16:20:37 Pain in both feet 4244910574 9581536 M79.671 M79.672 [facility] clearance to be obtained December 09- left foot hammertoe surgery Hammer toe 395401586 M20 .40 left 2nd,3rd and 5th- plan arthrodesi s left 2nd toe with arthroplas ty left third and Derotation arthroplas ty 5thright 2nd- plan arthroplas ty 2nd toe right Bunion 307605280 M21.61 9 right- distal Chevron osteotomy with possible Ritesh Callosity on toe 20091120 L84 lateral left 5th Pain in toe 687180559 M7 9.675 M79.674 Secondary to toenails Ingrowing toenail 306132 009 L60.0 right lateral great toe - noninfecte dslant back procedure performedw ound care recommende d daily to prevent wounds and infection presents will not be able to perform surgery until healed [id number] Naveed Lala DPM [facility] [address] [place] [address] 12/20/2023 08:35:55 12/20/2023 09:37:39 Postoperative care 000612638 Z48.89 s/p 3 daycontinu e postop shoeKeep dressings clean and dry for 1 weekmonito r for signs of infection to the foot at present seek medical attention immediatel yX-rays reviewed with the patient Hammer toe 437825772 M20 .40 left 2nd,3rd and 5th- plan arthrodesi s left 2nd toe with arthroplas ty left third and Derotation arthroplas ty 5th [id number] Naveed Lala DPM [facility] [address] [place] [address] 12/31/2023 09:21:35 02/07/2024 14:03:08 Postoperative care 436732928 Z48.89 s/p Ten dayscontin ue postop shoeKeep dressings clean and dry for 1 weekmonito r for signs of infection to the foot at present seek medical attention immediatel yX-rays reviewed with the patientfol low-up 1 week Hammer toe 522566470 M20 .40 left 2nd,3rd and 5th- plan arthrodesi s left 2nd toe with arthroplas ty left third and Derotation arthroplas ty 5th [id number] Naveed Lala DPM [facility] [place] [address] [address] 01/10/2024 08:54:04 01/10/2024 11:49:57 Postoperative care 136528568 Z48.89 s/p 3 weekssutur es removedcon tinue postop shoeno further dressings needed keep clean and coveredmon itor for signs of infection to the foot at present seek medical attention immediatel yX-rays reviewed with the patientfol low-up 2-3 weeks- x-rays at that time Hammer toe 378015128 M20 .40 left 2nd,3rd and 5th- plan arthrodesi s left 2nd toe with arthroplas ty left third and Derotation arthroplas ty 5th [id number] TYLER [facility] [place] [address] [place] [address] 03/11/2024 10:45:23 03/11/2024 14:59:12 Ingrowing nail of toe of right foot 8732272857 2268782 L60.0 lateral corner right great toenail non-infect edwound care instructio aurea givenDress ing instructio aurea reviewedpa rtial matrixecto my todayfollo w-up 2 weeks Closed bim alleolar fracture of left ankle [id number] S82.845A obtain new x-rayscont inue cam boot with protected weight-ivy ringrice therapy Postoperative care 47302 9007 Z48.89 s/p another surgeon left anklestatu s post 6 weeks [id number] Naveed Lala DPM [facility] [place] [address] [address] 03/25/2024 12:05:36 03/25/2024 14:27:42 Closed bimalleolar fracture of left ankle [id number] 8862646 S82.845A obtain new x-rayscont inue cam boot with protected weight-ivy ringrice therapy [id number] Naveed Lala DPM [facility] [place] [address] [address] 04/22/2024 11:16:18 04/22/2024 15:16:56 Closed bimalleolar fracture of left ankle [id number] 9099009 S82.845A xrays reviewed with the patient- no strenuous activities - may change to normal shoe gearrice therapyfol low up as needed [id number] Naveed Lala DPM [facility] [place] [address] [place] [address] 10/23/2024 09:57:01 10/28/2024 09:21:23 Pain of toe of right foot [id number] 11030 M79.674 x-rays reviewed Bunion [id number] M21.61 9 rightdiscu ssed optionsx-r ays reviewed with the patientwou ld likely require fusion 1st MPJ with hammertoe arthroplas ty of the 2nd- right foot Hammer toe 221660155 M20 .40 M20.41 right 2nd toediscuss ed optionsas above [place] of toe 90422116 L84 offloading to prevent open woundscons ervative measures reviewed with the patientFol low-up for surgery once has decided until then continue with conservati ve measures Acquired h allux limitus of right great toe [id number] 883711 M20.5X1 asContinue supportive shoe gearrecomm end fusion [id number] Naveed Lala DPM [facility] [place] [address] [place] [address] 11/17/2024 10:41:57 11/19/2024 13:48:52 Postoperative care [id number] Z48.89 s/p right fusion 1st MPJ and 2nd hammertoe arthroplas tydressing s changedric e therapycon tinue postop shoeelevat ion foot when at restminima l to no walking next 2 weeksfollo w-up on week for dressing change [id number] Naveed Lala DPM [facility] [place] [address] [place] [address] 11/24/2024 15:43:25 11/27/2024 08:43:21 Postoperative care [id number] Z48.89 s/p right fusion 1st MPJ and 2nd hammertoe arthroplas tydressing s changedric e therapycon tinue postop shoeelevat ion foot when at restminima l to no walking next 2 weeksfollo w-up on week for dressing change and suture removal [id number] Naveed Lala DPM [facility] [place] [address] [place] [address] 12/01/2024 15:21:34 12/09/2024 12:18:01 Cellulitis of foot 726890704 L03.119 preventati ve due to injury and mild dehiscence of incision Dehiscence of external surgical incision wound 2153285794 48007 T81.31XA minor right footstart doxy due to injury and minor abrasion to prevent infection Postoperative care 04073 9007 Z48.89 s/p right fusion 1st MPJ and 2nd hammertoe arthroplas tydressing s changedric e therapycon tinue postop shoeelevat ion foot when at restminima l to no walking next 2 weeksfollo w-up on week for dressing change and suture removal [id number] Naveed Lala DPM [facility] [place] [address] [place] [address] 12/08/2024 14:52:29 12/09/2024 13:11:56 Cellulitis of foot 884992910 L03.119 resolvedfi marilynn doxycyclin e Dehiscence of external surgical incision wound 0953416010 21114 T81.31XA resolve right foot Postoperative care 04615 9007 Z48.89 s/p right fusion 1st MPJ and 2nd hammertoe arthroplas tysutures removedric e therapycon tinue postop shoeelevat ion foot when at restminima l to no walking next 2 weeksfollo w-up 2 weeks [id number] Naveed Lala DPM [facility] [place] [address] [place] [address] 12/22/2024 15:02:55 12/29/2024 12:56:24 Postoperative care 945764988 Z48.89 s/p right fusion 1st MPJ and 2nd hammertoe arthroplas tyK-wire removed 2nd toerice therapycon tinue postop shoeelevat ion foot when at restminima l to no walking next 2 weeksrecom mend silicone scar sheets to the incisionsf ollow-up 2 weeks--- repeat x-rays at this time [id number] Naveed Lala DPM [facility] [place] [address] [place] [address] 01/12/2025 10:30:05 01/13/2025 08:16:04 Postoperative care 567007106 Z48.89 s/p right fusion 1st MPJ and 2nd hammertoe arthroplas tyK-wire removed 2nd toe- broken K-wire residual within the proximal phalanxx-r ays reviewed- stable correction of hammertoe and fusion of the 1st MPJ with intact hardware no acute signs of infectionr ice therapytra nsition to normal shoe gearelevat ion foot when at restmay start slowly returning to normal activities follow-up as needed Health Concerns Section Related Observation LastModified by Organization Detai ls LastModified Time None Recorded Concern Status LastModified by Organization Details LastModified Time None Recorded Advance Directives Directive None Recorded Payers Encounter Date Sequence Insurance Name Policy Number Policy Dietrich Covered Member ID Dietrich Member ID Guarantor Name 11/24/2024 1 [employer] - GOLD PLUS (MEDICARE REPLACEMENT/ ADVANTAGE - HMO) Lana Lockwood [id number] Lana Lockwood 11/24/2024 2 [place] 106 Florencio Lockwood [id number] Lana Lockwood 12/01/2024 1 [employer] - GOLD PLUS (MEDICARE REPLACEMENT/ ADVANTAGE - HMO) Lana Lockwood [id number] Lana Lockwood 12/01/2024 2 [place] 106 Florencio Ardon Fabián [id number] Lana Lockwood 12/08/2024 1 [employer] - GOLD PLUS (MEDICARE REPLACEMENT/ ADVANTAGE - HMO) Lana Lockwood [id number] Lana Lockwood 12/08/2024 2 [place] 106 Florencio Ardon Fabián [id number] Lanasb Lockwood 12/22/2024 1 [employer] - GOLD PLUS (MEDICARE REPLACEMENT/ ADVANTAGE - HMO) Lana Lockwood [id number] Lana Lockwood 12/22/2024 2 [place] 106 Fl[address] Ardon Fabián [id number] Lana Lockwood 01/12/2025 1 [employer] - GOLD PLUS (MEDICARE REPLACEMENT/ ADVANTAGE - HMO) Lana Lockwood [id number] Lana Lockwood 01/12/2025 2 [place] 106 Flore[address] Ardon Fabián [id number] Lana Lockwood Notes Date Note Type Note Provider Name and Address Organization Details Recorded Time 5 text/html . Patient is a 74-year-old female she follows up for postoperative follow-up for fusion of the right great toe with hammertoe arthroplasty of the right 2nd she is doing well she denies any signs of infection she has some mild swelling she has a healing incision. Patient denies any other complaints. Naveed Lala DPM [address], [address] [address], [place], [address], [employer] [facility] [employer] 11/26/2024 08:19:58 5 text/html Patient is a 74-year-old female she returns to the office for follow-up on post surgery follow-up. Patient has some mild redness and wound dehiscence. Due to this we will start her on antibiotics to prevent any worsening or deep infection. Patient denies any fever, chills, nausea vomiting. Patient denies any other complaints. Naveed Lala DPM [address], [address], [place], [address], [facility] 12/04/2024 09:39:59 5 text/html . Patient is a 74-year-old female she returns for follow-up on acquired hallux limitus of the right great toe with hammertoe. Patient is status post fusion right 1st MPJ and arthroplasty of the right 2nd toe she has intact K-wire with a stable right 2nd toe position and a stable right 1st metatarsophalangeal joint fusion. Patient had some swelling, redness, mild wound dehiscence at her last visit to which she was placed on antibiotics which this has resolved completely. Patient denies any other complaints. Naveed Lala DPM [address], [place], [address], [facility] 12/08/2024 15:49:48 5 text/html . Patient is a 74-year-old female she returns for follow-up on arthroplasty of the 2nd toe and fusion of the 1st MPJ she is doing well she has mild swelling she has well-healed incisions she has no pain. Patient is here for the K-wire removal the 2nd toe. Patient denies any other complaints. Naveed Lala DPM [address], [place], [address], [facility] 12/29/2024 09:35:58 5 text/html . Patient is a 74-year-old female she returns the office for follow-up on hammertoe correction and fusion of the 1st MPJ of the right foot she is doing well overall she denies any pain to the foot. Patient has mild swelling to the right 2nd toe she is well-healed incisions with minimal scarring. Patient had repeat x-rays today which were reviewed with the patient detail. Patient has a healed metatarsophalangeal joint fusion with stable intact hardware. Patient also had a K-wire removed from the 2nd toe which is found to have broken as she injured that toe. I did review the options at this point it is not within the joint space and we will continue to monitor this she denies any pain to the toe if the toe becomes problematic or she develops pain or the pin moves then she may require removal. Patient denies any other complaints. Patient also recently fell she has bruising to the left side of her face and she is in a sling on her left arm secondary to a fracture of her elbow. Naveed Lala DPM [address] [address], [place], [address], [place] [facility] 01/12/2025 11:18:43 OBGyn Episode No OBEpisode recorded.
--- OUTSIDE RECORDS SUMMARY | 2025-01-19 16:20 | XMS_ITS | Encounter Summary ---
Author Organization [facility] Address [address] [place] [address] Phone Care Team Providers Care Frame Bender Name Role Phone Emmtet Carrizales MD Primary Care Provider [phone] Emmett Carrizales MD Primary Care Provider [phone] Emmett Carrizales MD Unavailable Karolyn Tobar RN Unavailable Unavailable Ifrah Whitfield APRN, CNP Unavailable Encounter Details Date Type Department Care Team (Late st Contact Info) Description 04/23/2024 [facility] [address] [place] [address] Emmett Carrizales MD [address] [place] [address] Social History Tobacco Use Types Packs/Day Years Used Date Smoking Tobacco: Never Passive Smoke Exposure: Never Smokeless Tobacco: Never Alcohol Use Standard Drinks/Week Comments Not Currently 0 (1 standard drink = 0.6 oz pur e alcohol) [facility] Utilities Answer Date Recorded In the past 12 months has e electric, gas, oil, or water company threatened to shut off services in your home? No 09/13/2023 Social Connection and Isolation Panel Answer Date Recorded In a typical week, how many times do you talk on the phone with family, friends, or neighbors? More than three times a week 09/13/2023 How often do you get togethe r with friends or relatives? More than three times a week 09/13/2023 How often do you attend chur ch or samaritan services? Never 09/13/2023 Do you belong to any clubs o r organizations such as sikhism groups, unions, fraternal or athletic groups, or [...] Total Score - Questions 1-9 0 08/2023 [facility] of Occupat ional Health - Occupational Stress [...] place to sleep or slept in a assisted (including now)? No 09/13/2023 Education Answer Date [...] Care Team (Late st Contact Info) Description 01/20/2025 1:00 AM CDT Home Care Visit [facility] [address] [place] [address] Pat Abdullahi OT 01/22/2025 1:00 AM CDT Home Care Visit [facility] [address] [place] [address] Nata Casas RN [place] 01/26/2025 1:00 PM CDT Clinical Support [facility] [address] [place] [address] Discharge Disposition: Discharged to home or Selfcare 01/27/2025 1:00 AM CDT Home Care Visit [address] [address] Gayatri Rubio, COAL LOADER 01/29/2025 1:00 AM CDT Home Care Visit [address] [address] Gayatri Rubio, COAL LOADER 02/02/2025 1:00 AM CDT Home Care Visit [address] [address] Gayatri Rubio, COAL LOADER 02/04/2025 1:00 AM CDT Home Care Visit [address] [address] Gayatri Rubio, COAL LOADER 02/09/2025 1:00 AM CDT Home Care Visit [address] [address] Caren Dover, PT 02/25/2025 11:30 AM CDT Office Visit [facility] - [facility] - [place] [address] [place] [address] Emmett Carrizales MD [address] [facility] [place] [address] documented as of this encounter Goals Goal Patient Goal Type Associated Problems Recent Progress Patient-Stated? Author Prevent Falls and Injury Patient Goals On track(2024 11:39 AM CDT) Yes Karolyn Tobar, RN Note: Follow Up Date 12/2024 - add more outdoor lighting - always [...] alert plan in case I fall - rock picker clutter from the floors - use [...] Keep All Appointments Patient Goals On track(2024 11:39 AM CDT) Yes Karolyn Tobar, RN Note: Follow Up Date 12/2024 - ask family or friend for a [...] Injury Care Plan Fall Risk (Fall Risk) Not on track(2024 11:41 AM CDT) Karolyn Wakefield, RN Note: Evidence-based guidance: Assess [...] No recent falls. PT has been completed. 10/09/2024 She states no recent falls. She has been using her walker.She will be referred to for increased hip pain. documented as of this encounter Visit Diagnoses Not on filedocumented in this encounter Additional Health Concerns Active Problems Noted Date Diagnosed Date Fall Risk (Fall Risk) 09/13/2023 Assessment Noted Time PHQ-9 Depression Total Score: 0 09/13/19 1:30 PM CAVALRY SCOUT documented as of this encounter Care Teams Frame Bender Relationship Specialty Start Date End Date Emmett Carrizales MD [address] [place], [place] [address] PCP - General Internal Medicine 06/29/15 11/28/24 Emmett Carrizales MD [address] [place] [address] PCP - General Internal Medicine 11/29/24 Emmett Carrizales MD [address] [place] [address] Internal Medicine 11/29/24 Karolyn Tobar, RN [place] Nurse Director Nursery School 06/07/23 Ifrah Whitfield APRN, POWER PRESS OPERATOR #[address] [address] Nurse Practitioner Advanced Practice Nurse 03/06/22 documented as of this encounter
--- OUTSIDE RECORDS SUMMARY | 2025-01-19 16:20 | XMS_ITS ---
Care Plan Created on: January 19, 2025 Lana Lockwood : 1950 Sex: Female Author Organization [facility] Address [address] [place] [address] Phone Care Team Providers Care Assistant Statistician Name Role Phone Emmett Carrizales MD Primary Care Provider Emmett Carrizales MD Unavailable Karolyn Tobar RN Unavailable Unavailable Ifrah Whitfield APRN, PAPER CUTTING MACHINE OPERATOR Unavailable Active Problems Problem Noted Date [...] On track(2024 11:39 AM CDT) Yes Karolyn Tobar RN Note: Follow Up Date 12/2024 - [...] alert plan in case I fall - supervisor picking crew clutter from the floors - use a [...] Risk) Not on track(2024 11:41 AM CDT) No Karolyn Tobar, RN Note: Evidence-based guidance: [...] be referred to for increased hip pain. Interventions Care Plan Interventions Intervention Entry Date [...] No recent falls. 04/29/2024 referral sent to [facility] per patient request. 06/30/2024 She is feeling better. She states her ankle, back, and legs are better. No recent falls. Two more sessions of therapy left to go. 07/31/2024 She completed physical therapy. No recent falls. She is wearing compression stockings as advised. 11/05/2024 She reports falling a couple of weeks ago. She is scheduled for surgery on 11/14. 12/03/2024 Recently was seen in ER for fall. She has been graduated from PT. Appointment scheduled with PCP and follow up with . Related Goals and Interventions Goal Associated Intervent ions Absence of Fall and Fall-Related Injury Identify and Manage Contributors to Fall Risk
--- OUTSIDE RECORDS SUMMARY | 2025-01-19 16:20 | XMS_ITS ---
Author Organization [facility] Address [address] [place] [address] Phone Care Team Providers Care Filling Layer Up Name Role Phone Emmett Carrizales MD Primary Care Provider [phone] Emmett Carrizales MD Unavailable [phone] Karolyn Tobar RN Unavailable Unavailable Ifrah Whitfield APRN, CNP Unavailable [phone] Ambulatory Complex Care Management Status:Enrolled (Active) Start date:06/07/2023 Enrollment date:06/07/2023 Current support & services provided:RN Care Managed Related social drivers of health:Intimate Partner Violence, Social Connections, Alcohol Use, Financial Resource Strain, Stress, Physical Activity, Food Insecurity, Transportation Needs, Housing Stability, Utilities Overview Complex Care Management Program Case Team Name Relationship Phone Karolyn Tobar RN(Responsible Staff) Nurse Air Bag Stripper Continued Care and Services Coordination
--- OUTSIDE RECORDS SUMMARY | 2025-01-19 16:21 | XMS_ITS | Encounter Summary ---
Author Organization [facility] Address [address] [place] [address] Phone Care Team Providers Care Esol Teacher Assistant Name Role Phone Emmett Carrizales MD Primary Care Provider [phone] Emmett Carrizales MD Primary Care Provider [phone] Emmett Carrizales MD Unavailable Karolyn Tobar RN Unavailable Unavailable Ifrah Whitfield APRN, CNP Unavailable [phone] Reason for Visit * Reason Comments Medication Refill Encounter Details Date Type Department Care Team (Late st Contact Info) Description 12/10/2023 [facility]ill [facility] - [place] [address] [place] [address] Emmett Carrizales MD [address] [place] [address] Medication Refill Social History Tobacco Use Types Packs/Day Years Used Date Smoking Tobacco: Never Passive Smoke Exposure: Never Smokeless Tobacco: Never Alcohol Use Standard Drinks/Week Comments Not Currently 0 (1 standard drink = 0.6 oz pur e alcohol) [facility] Utilities Answer Date Recorded In the past 12 months has th e electric, gas, oil, or water company [...] often do you attend chur ch or denominational services? Never 09/13/2023 Do you belong to any clubs o r organizations such as restoration groups, unions, fraternal or athletic groups, or [...] Total Score - Questions 1-9 0 08/2023 [facility] of Occupat ional Health - Occupational Stress [...] place to sleep or slept in a retirement (including now)? No 09/13/2023 Education Answer Date [...] PM CDT Medication(s) refilled and signed per [facility] Chronic Medication Refill Standing Order for Pediatricand [...] Dept 11/27/23 Office Visit Emmett Carrizales MD [facility] [place] 10/11/23 Office Visit Emmett Carrizales MD [facility] 07/12/23 Office Visit Emmett Carrizales MD [facility] 06/07/23 Office Visit Emmett Carrizales MD [facility] [place] 05/22/23 Office Visit Kroi Hudson PAC [facility] [place] 04/11/23 Office Visit Emmett Carrizales MD [facility] [place] 12/21/22 Office Visit Emmett Carrizales MD [facility] [place] Showing recent visits within past 365 days and meeting all other requirements Future Appointments Date Type Provider Dept 01/09/24 Appointment Emmett Carrizales MD [facility] Showing future appointments within next 90 days and meeting all other requirements Passed - Normal TSH in past 12 months TSH Date Value Ref Range Status 11/28/2023 0.441 0.300 - 5.000 mIU/L Final documented in this encounter Plan of Treatment Upcoming Encounters Date Type Department Care Team (Late st Contact Info) Description 01/20/2025 1:00 AM CDT Home Care Visit [address] [address] Pat Abdullahi OT 01/22/2025 1:00 AM CDT Home Care Visit [facility] [address] [place] [address] Nata Casas RN [place] 01/26/2025 1:00 PM CDT Clinical Support [facility] [address] [place] [address] Discharge Disposition: Discharged to home or Selfcare 01/27/2025 1:00 AM CDT Home Care Visit [address] [address] Gayatri Rubio, CLEAT THROWER 01/29/2025 1:00 AM CDT [facility] [address] [place] [address] Gayatri Rubio, CLEAT THROWER 02/02/2025 1:00 AM CDT Home Care Visit [facility] [address] Gayatri Rubio, CLEAT THROWER 02/04/2025 1:00 AM CDT [facility] [address] [place] [address] Gayatri Rubio, CLEAT THROWER 02/09/2025 1:00 AM CDT Home Care Visit [facility] [address] Caren Dover, PT 02/25/2025 11:30 AM CDT Office Visit [facility] - [facility] - [place] [address] [facility] [address] Emmett Carrizales MD [address] [place] [address] documented as of this encounter Goals Goal [...] on track(2024 11:41 AM CDT) No Karolyn Tobar RN Note: Evidence-based guidance: [...] Total Score: 0 09/13/19 24 1:30 PM BEAUTY SALES CONSULTANT documented as of this encounter Care Teams Esol Teacher Assistant Relationship Specialty Start Date End Date Emmett Carrizales MD [address] [place] [address] PCP - General Internal Medicine 06/29/15 11/28/24 Emmett Carrizales MD [address] [place] [address] PCP - General Internal Medicine 11/29/24 Emmett Carrizales MD [address] [place] [address] Internal Medicine 11/29/24 Karolyn Tobar, [place] Nurse Inspector Air Carrier 06/07/23 Ifrah Whitfield APRN, CLINICAL CONSULTANT #[address] [address] Nurse Practitioner Advanced Practice Nurse 03/06/22 documented as of this encounter
--- OUTSIDE RECORDS SUMMARY | 2025-01-19 16:21 | XMS_ITS | Encounter Summary ---
Author Organization [facility] Address [address] [place] [address] Phone Care Team Providers Care Customer Solutions Architect Name Role Phone Emmett Carrizales MD Primary Care Provider [phone] Emmett Carrizales MD Unavailable [phone] Karolyn Tobar RN Unavailable Unavailable Ifrah Whitfield APRN, RADIOGRAPHER TECHNOLOGIST Unavailable [phone] Encounter Details Date Type Department Care Team (Late st Contact Info) Description 01/14/2025 Telephone [facility] - [place] [address] [place] [address] Emmett Carrizales MD [address] [place] [address] Social History Tobacco Use Types Packs/Day Years Used Date Smoking Tobacco: Never Passive Smoke Exposure: Never Smokeless Tobacco: Never Alcohol Use Standard Drinks/Week Comments Not Currently 0 (1 standard drink = 0.6 oz pur e alcohol) [facility] Utilities Answer Date Recorded In the past 12 months has e electric, gas, oil, or water company threatened to shut off services in your home? No 10/06/2024 Social Connection and Isolation Panel Answer Date Recorded In a typical week, how many times do you talk on the phone with family, friends, or neighbors? Once a week 10/06/2024 How often do you get together with friends or re latives? Never 10/06/2024 How often do you attend gnosticism or sikhism serv ices? Never 10/06/2024 Do you belong to any clubs o r organizations such as gnosticism groups, unions, fraternal or athletic groups, or school groups? No 10/06/2024 How often do you attend meet ings of the clubs or organizations you belong to? Never 10/06/2024 Are you , , di vorced, , never , or living with a partner? 10/06/2024 AUDIT-C Answer Date Recorded Q1: How often do you have a drink containing alcohol? Never 10/06/2024 Q2: How many drinks containi ng alcohol do you have on a typical day when you are drinking? Patient does not drink Q3: How often do you have si x or more drinks on one occasion? Never 10/06/2024 Overall Financial Resource Strain (CARDIA) Answe r Date Recorded How hard is it for you to pa y for the very basics like food, housing, medical care, and heating? Not hard at all 10/06/2024 PHQ-2 Answer Date Recorded Total Score - Questions 1-9 0 09/14 [facility] - Occupational Stress Questionnaire Answer Date Recorded Do you feel stress - tense, restless, nervous, or anxious, or unable to sleep at night because your mind is troubled all the time - these days? Only a little 10/06/2024 Exercise Vital Sign Answer Date Recorde d On average, how many days pe r week do you engage in moderate to strenuous exercise (like a brisk walk)? 0 days 10/06/2024 On average, how many minutes do you engage in exercise at this level? 0 min 10/06/2024 Hunger Vital Sign Answer Date Recorded Within the past 12 months, y ou worried that your food would run out before you got the money to buy more. Never true 10/06/19 25 Within the past 12 months, t he food you bought just didn't last and you didn't have money to get more. Never true 10/06/2024 PRAPARE - Transportation Answer Date Re corded In the past 12 months, has l ack of transportation kept you from medical appointments or from getting medications? No 09/14 In the past 12 months, has l ack of transportation kept you from meetings, work, or from getting things needed for daily living? No 10/06/2024 Housing Stability Vital Sign Answer David e [...] place to sleep or slept in a jail (including now)? No 09/13/2023 Housing Stability Vital Sign Answer David e Recorded In the last 12 months, was t here a time when you were not able to pay the mortgage or rent on time? No 10/06/2024 In the past 12 months, how m any times have you moved where you were living? 0 10/06/2024 At any time in the past 12 m [facility], were you homeless or living in a jail (including now)? No 10/06/2024 Education Answer Date Recorded What is the [...] encounter Miscellaneous Notes * Telephone Encounter - Emmett Carrizales MD - 01/14/2025 9:11 AM CDT Okay to order OT * Telephone Encounter - Rita Plaza CMA - 01/14/2025 8:04 AM CDT Coretta Braga, RN would like OTY ordered also. documented in this encounter Plan of Treatment Upcoming Encounters Date Type Department Care Team (Late st Contact Info) Description 01/20/2025 1:00 AM CDT Home Care Visit [address] [address] Pat Abdullahi, OT 01/22/2025 1:00 AM CDT Home Care Visit [address] [address] Nata Casas RN [place] 01/26/2025 1:00 PM CDT Clinical Support [facility] On[facility] Services [address] [place] [address] Discharge Disposition: Discharged to home or Selfcare 01/27/2025 1:00 AM CDT Home Care Visit [address] [address] Gayatri Rubio, SALES MARKETING COORDINATOR 01/29/2025 1:00 AM CDT Home Care Visit [address] [address] Gayatri Rubio, SALES MARKETING COORDINATOR 02/02/2025 1:00 AM CDT Home Care Visit [address] [address] Gayatri Rubio, SALES MARKETING COORDINATOR 02/04/2025 1:00 AM CDT Home Care Visit [address] [address] Gayatri Rubio, SALES MARKETING COORDINATOR 02/09/2025 1:00 AM CDT Home Care Visit [address] [address] Caren Dover, PT 02/25/2025 11:30 AM CDT [facility] [place] [address] [place] [address] Emmett Carrizales MD [address] [place] [address] documented as of this encounter Goals Goal [...] alert plan in case I fall - strip picker clutter from the floors - use [...] Noted Time PHQ-9 Depression Total Score: 0 10/06/19 4:14 PM POWDER CORE TESTER documented as of this encounter Care Teams Customer Solutions Architect Relationship Specialty Start Date End Date Emmett Carrizales MD [address] [place] [address] PCP - General Internal Medicine 11/29/24 Emmett Carrizales MD [address] [place] [address] Internal Medicine 11/29/24 Karolyn Tobar, RN [place] Nurse Production Line Solderer 06/07/23 Ifrah Whitfield APRN, RADIOGRAPHER TECHNOLOGIST #[address] [address] Nurse Practitioner Advanced Practice Nurse 03/06/22 documented as of this encounter
--- OUTSIDE RECORDS SUMMARY | 2025-01-19 16:21 | XMS_ITS | Referral Summary ---
Author Organization [facility] Address [address] [place] [address] Care Team Providers Care Fuel Injection Servicer Name Role Phone Emmett Carrizales MD Primary Care Provider [phone] Encounters Date Type Department Care Team Description 01/09/2025 Ancillary Procedure [facility] Outside Films 01/09/2025 10:16 AM CDT - 01/09/2025 11:59 PM CDT Hospital Encounter [facility] Emergency, Room R Discharge Disposition: Discharge to home or self care 01/09/[address] [facility] [address] [place] [address] [address], [place] [address] Rashid Wallace MD 12/23/[address] [facility] [address] [place] [address] [address], [place] [address] Sharif Krueger PA 12/23/[address] [facility] [address] [place] [address] [address], [place] [address] Sharif Krueger PA 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); Thenar atrophy, right 12/19/2024 7:55 AM CDT - 12/19/2024 11:59 PM CDT Hospital Encounter [facility] [address] [place] [address] [address] [place] [phone] Discharge Disposition: Discharge to home or self care 12/19/2024 9:30 AM CDT Office Visit [facility] [address] [place] [address] [address] [place] [address] Sharif Krueger PA 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); Thenar atrophy, right 11/13/2024 Telephone [facility] [address] [place] [address] [address] [place] [address] Sharif Krueger PA from Last 3 Months Allergies Active Allergy [...] LEVOTHROID) 88 mcg tabletIndications :hypothyroidism 100 mcg central supply aide before breakfast 1 8 Active prednisoLONE acetate [...] Malocclusion 07/20/2021 Nasal turbinate hypertrophy 07/20/2021 Temporomandibular euoar-bnbu-mprgmfdefyy syndrom e 07/20/2021 Mixed irritable bowel syndrome 07/20/2021 Other fatigue 06/01/2021 Incontinence of feces 12/29/2020 History of colonic polyps 10/25/2020 Overview (10/25/2020): Added automatically from request for surgery [id number] Encounter for screening colonoscopy 10/25/2020 Overview (10/25/2020): Added automatically from request for surgery [id number] BMI 30.0-30.9,adult 03/11/2020 Class 1 obesity due to exces s calories without serious comorbidity with body mass index (BMI) of 30.0 to 30.9 in adult 03/11/2020 Gastroesophageal reflux disease 09/11/2019 Overview (09/11/2019): Added automatically from request for surgery [id number] Assessment & Plan (03/11/2020 9:25 AM CDT): Doing well on pantoprazole daily. Says she does get breakthrough symptoms occasionally (maybe one weekly) but overall doing well. Continue pantoprazole daily. May use TUMS prn breakthrough symptoms. Continue to follow GERD diet. Assessment & Plan (09/16/2019 4:46 PM CAUSTICISER): Schedule EGD for further evaluation. Start Protonix daily instead of Pepcid. Follow-up in 6 months. Also discussed with the patient gastroesophageal reflux disease diet. Irritable bowel syndrome with diarrhea 9 Assessment & Plan (03/11/2020 9:24 AM CDT): Pt doing well on dicyclomine TID. She is having two normal BM's daily on this medication. Continue this medication. Assessment & Plan (09/16/2019 4:46 PM CAUSTICISER): Overall her symptoms has improved and less diarrhea with Bentyl twice daily. Will continue to follow on the pattern for symptoms. Assessment & Plan (08/22/2018 12:26 PM CAUSTICISER): Doing well with Dicyclomine Adult attention deficit hyperactivity disorder 0 01/16/2017 Psychophysiological insomnia 09/27/2016 Lumbar spinal stenosis 03/08/2016 Severe bipolar I disorder, most recent episode d epressed 06/29/2015 Bipolar I disorder 03/13/2015 Generalized anxiety [...] have a drink containing alc ohol? Never 12/19/2024 Average Number of Drinks Not on file 025 Frequency of Binge Drinking Not on file 04/2025 PHQ-2 Answer Date Recorded PHQ-2 Score 0 09/11/2019 Personal Safety Answer Date Recorded Have you ever been in or are you currently in a harmful physical or emotional relationship or is someone making you feel afraid or unsafe? Denies 11/10/2022 Comments Unknown Sex and Gender Information Value Date Recorded Sex Assigned at Not on file Legal Sex Female 12:20 AM CAUSTICISER Gender Identity Not on file Sexual Orientation Not on file Last Filed Vital Signs Vital Sign Reading Time Taken Comments Blood Pressure 126/80 12/19/2024 9:42 AM CDT Pulse 78 12/19/2024 9:42 AM CDT Temperature 36.4 C (97.6 F) 05/26/2024 11:52 AM CDT Respiratory Rate 18 05/26/2024 11:52 AM CDT Oxygen Saturation 97% 05/26/2024 11:52 AM CDT Inhaled Oxygen Concentration - - Weight 73.5 kg (162 lb) 12/19/2024 9:42 AM CDT Height 156.5 cm (5' 1.6) 12/19/2024 9:42 AM CDT Body Mass Index 30.02 12/19/2024 9:42 AM CDT Plan of Treatment Not on file Procedures Procedure Name Priority Date/Time Associated Diagnosis Comments XR TRANSFER OF OUTSIDE FILMS Routine 01/09/2025 12:00 AM CDT XR HAND RIGHT 3 OR MORE VIEWS Schedule Routine, Read Routine (OP Routine) 12/19/2024 9:26 AM CDT Carpal tunnel syndrome of right wrist COLONOSCOPY 12/01/2020 12:44 PM CDT from Last 3 Months or Most Recently Relevant to Health Maintenance Results * XR Outside Reference (01/09/2025 12:00 AM CDT) Narrative [facility] - 01/12/2025 8:16 AM CDT This order has been auto-finalized and does not contain a result. us Provider Transcribed Order IMG XR PROCEDURES Fin al Result [facility] * XR Hand Right 3 or More Views (12/19/2024 9:26 AM CDT) Anatomical Region Laterality Modality Upper Extremities, Hand Right Digital Radiography Narrative 12/19/2024 9:53 AM CDT Three views of the right hand are negative for acute fracture dislocation or osseous lesion. 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 Large loose body noted radially. 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 Sharif GERARDO IMG XR PROCEDURES Final Res ult * COLONOSCOPY (12/01/2020 12:44 PM CDT) Anatomical Region Laterality Modality Other Narrative Procedure Note Sierra Mcgarry MD - 12/01/2020 12:44 PM CDT [facility] Patient Name: Laan Darby Procedure Date: 12/01/2020 12:44 PM Date of : 1950 Admit Type: Outpatient Age: 70 Gender: Female Attending MD: Sierra Mcgarry M.D. Room: [facility] ENDOSCOPY ROOM 1 Note Status: Finalized Patient Profile: This is a 70 year old female. No family history of colon cancer. History of polyps in the past. Alsohas issues with chronic diarrhea. Procedure: Colonoscopy Indications: High risk colon cancer surveillance: Personalhistory of colonic polyps, Last colonoscopy: September2015 Referring MD: Manny Sotelo.Percy, Dion Kidd DO Providers: Sierra Mcgarry M.D. [...] under direct vision. The Pediatric Colonoscope PCF-H190L [id number] was introducedthrough the anus and advanced to [...] 12:44 PM Procedure Code(s): --- Professional --- 57221, Colonoscopy, flexible; with removal of tumor(s), polyp(s), or other lesion(s) by snare technique 16073, 59, Colonoscopy, flexible; with biopsy, single or multiple Diagnosis Code(s): --- Professional --- Z86.010, Personal history of colonic polyps K64.8, Other hemorrhoids K63.5, Polyp of colon K62.1, Rectal polyp CPT copyright 2019 [employer]. All rights reserved. The codes documented in this report are preliminary and upon tourist adviser reviewmay be revised to meet current compliance requirements. Recognized by the [employer] for promoting quality in endoscopy Sierra Mcgarry MD ENDOSCOPY PROCEDURES Final Result from Last 3 Months or Most Recently Relevant to Health Maintenance Insurance [employer] MEDICARE HMO [facility] [employer] MEDICARE O [employer] MEDICARE HMO [address] Advance Directives For more information, please contact: [phone] * Full Code (Latest Code Status on File) Date Activated Date Inactivated Comments 12/01/2020 12:33 PM 12/01/2020 6:56 PM * Full Code Date Activated Date Inactivated Comments 10/29/2019 7:38 AM 10/29/2019 1:35 PM * Full Code Date Activated Date Inactivated Comments 10/29/2019 7:38 AM 10/29/2019 7:38 AM Care Teams Fuel Injection Servicer Relationship Specialty Start Date End Date Emmett Carrizales MD [address] [place] [address] PCP - General Internal Medicine 08/10/21
--- OUTSIDE RECORDS SUMMARY | 2025-01-19 16:21 | XMS_ITS | Encounter Summary ---
Author Organization [facility] Address [address] [facility] [address] Phone Care Team Providers Care Piano Builder Name Role Phone Emmett Carrizales MD Primary Care Provider Emmett Carrizales MD Primary Care Provider Emmett Carrizales MD Unavailable [phone] Karolyn Tobar RN Unavailable Unavailable Ifrah Whitfield APRN, CNP Unavailable Reason for Visit * Reason Comments Medication Refill Encounter Details Date Type Department Care Team (Late st Contact Info) Description 07/25/2024 [facility]ill [facility] [place] [address] [place] [address] Emmett Carrizales MD [address] [place] [address] Medication Refill Social History Tobacco Use Types Packs/Day Years Used Date Smoking Tobacco: Never Passive Smoke Exposure: Never Smokeless Tobacco: Never Alcohol Use Standard Drinks/Week Comments Not Currently 0 (1 standard drink = 0.6 oz pur e alcohol) [facility] Utilities Answer Date Recorded In the past [...] often do you attend chur ch or latter day services? Never 09/13/2023 Do you belong to any clubs o r organizations such as jainism groups, unions, fraternal or athletic groups, or [...] Total Score - Questions 1-9 0 08/2023 [facility] [place] of Occupat ional Health - Occupational Stress [...] place to sleep or slept in a nursing home (including now)? No 09/13/2023 Education Answer [...] AM CDT Home Care Visit [facility] [address] [place] [address] Pat Abdullahi OT 01/22/2025 1:00 AM CDT Home Care Visit [facility] [address] [place] [address] Nata Casas RN [place] 01/26/2025 1:00 PM CDT Clinical Support [facility] Oncology Services [address] [place] [address] Discharge Disposition: Discharged to home or Selfcare 01/27/2025 1:00 AM CDT Home Care Visit [address] [address] Gayatri Rubio, ASSOCIATE STORE LEADER 01/29/2025 1:00 AM CDT Home Care Visit [address] [address] Gayatri Rubio, ASSOCIATE STORE LEADER 02/02/2025 1:00 AM CDT Home Care Visit [address] [address] Gayatri Rubio, ASSOCIATE STORE LEADER 02/04/2025 1:00 AM CDT Home Care Visit [address] [address] Gayatri Rubio, ASSOCIATE STORE LEADER 02/09/2025 1:00 AM CDT Home Care Visit [address] [address] Caren Dover, PT 02/25/2025 11:30 AM CDT Office Visit [facility] - Internal Medicine - [place] [address] [place] [address] Emmett Carrizalse MD [address] [place] [address] documented as of this encounter Goals Goal [...] alert plan in case I fall - merchandise pickup/receiving associate clutter from the floors - use a [...] Total Score: 0 09/13/19 24 1:30 PM BEDSPREAD CUTTER HAND documented as of this encounter Care Teams Piano Builder Relationship Specialty Start Date End Date Emmett Carrizales MD [address] [place] [address] PCP - General Internal Medicine 06/29/15 11/28/24 Emmett Carrizales MD [address] [place] [address] PCP - General Internal Medicine 11/29/24 Emmett Carrizales MD [address] [place] [address] Internal Medicine 11/29/24 Karolyn Tobar, [place] Nurse Agriculture Worker 06/07/23 Ifrah Whitfield APRN, CRYSTAL GROWER #[address] [address] Nurse Practitioner Advanced Practice Nurse 03/06/22 documented as of this encounter
--- OUTSIDE RECORDS SUMMARY | 2025-01-19 16:21 | XMS_ITS | Encounter Summary ---
Author Organization [facility] Address [address] [facility] [address] Phone Care Team Providers Care Helper Steel Fabrication Name Role Phone Emmett Carrizales MD Primary Care Provider [phone] Emmett Carrizales MD Primary Care Provider Emmett Carrizales MD Unavailable Karolyn Tobar RN Unavailable Unavailable Ifrah Whitfield APRN, CNP Unavailable Reason for Visit * Reason Comments Medication Refill Encounter Details Date Type Department Care Team (Late st Contact Info) Description 10/30/2023 [facility]ill [facility] - [place] [address] [place] [address] Emmett Carrizales MD [address] [place] [address] Medication Refill Social History Tobacco Use Types Packs/Day Years Used Date Smoking Tobacco: Never Passive Smoke Exposure: Never Smokeless Tobacco: Never Alcohol Use Standard Drinks/Week Comments Not Currently 0 (1 standard drink = 0.6 oz pur e alcohol) [facility] Utilities Answer Date Recorded In the past [...] often do you attend chur ch or rastafarian services? Never 09/13/2023 Do you belong to any clubs o r organizations such as denominational groups, unions, fraternal or athletic groups, or [...] Total Score - Questions 1-9 0 08/2023 [facility] of Occupat ional Health - Occupational Stress [...] in a snf (including now)? No 09/13/2023 Education Answer Date [...] 10/11/23 Office Visit Emmett Carrizales MD [facility] 07/12/23 Office Visit Emmett Carrizales MD [facility] 06/07/23 Office Visit Emmett Carrizales MD [facility] 05/22/23 Office Visit Kori Hudson, PAC [facility] 04/11/23 Office Visit Emmett Carrizales MD [facility] 12/21/22 Office Visit Emmett Carrizales MD [facility] 11/23/22 Office Visit Kori Hudson, PAC [facility] Showing recent visits within past 365 days and meeting all other requirements Future Appointments Date Type Provider Dept 01/09/24 Appointment Ememtt Carrizales MD [facility] Showing future appointments within next 90 days and meeting all other requirements documented in this encounter Plan of Treatment Upcoming Encounters Date Type Department Care Team (Late st Contact Info) Description 01/20/2025 1:00 AM CDT Home Care Visit [address] [address] Pat Abdullahi OT 01/22/2025 1:00 AM CDT Home Care Visit [address] [address] Nata Casas, [place] 01/26/2025 1:00 PM CDT Clinical Support [facility] Oncology Services [address] [place] [address] Discharge Disposition: Discharged to home or Selfcare 01/27/2025 1:00 AM CDT Home Care Visit [address] [address] Gayatri Rubio, DIE TRIMMER 01/29/2025 1:00 AM CDT Home Care Visit [address] [address] Gayatri Rubio, DIE TRIMMER 02/02/2025 1:00 AM CDT Home Care Visit [address] [address] Gayatri Rubio, DIE TRIMMER 02/04/2025 1:00 AM CDT Home Care Visit [address] [address] Gayatri Rubio, DIE TRIMMER 02/09/2025 1:00 AM CDT Home Care Visit [address] [address] Caren Dover, PT 02/25/2025 11:30 AM CDT Office Visit [facility] Medical Group - Internal Medicine - [place] [address] [facility] [place] [address] Emmett Carrizales MD [address] [place] [address] [address] documented as of this encounter Goals Goal [...] Total Score: 0 09/13/19 24 1:30 PM IT SALES EXECUTIVE documented as of this encounter Care Teams Helper Steel Fabrication Relationship Specialty Start Date End Date Emmett Carrizales MD [address] [place] [address] PCP - General Internal Medicine 06/29/15 11/28/24 Emmett Carrizales MD [address] [place] [address] PCP - General Internal Medicine 11/29/24 Emmett Carrizales MD [address] [place] [address] Internal Medicine 11/29/24 Karolyn Tobar, RN [place] Nurse Sealing And Canceling Machine Operator 06/07/23 Ifrah Whitfield APRN, COMPLIANCE SPEC #[address] [address] Nurse Practitioner Advanced Practice Nurse 03/06/22 documented as of this encounter
--- OUTSIDE RECORDS SUMMARY | 2025-01-19 16:21 | XMS_ITS | Encounter Summary ---
Author Organization [facility] Address [address] [place] [address] Phone Care Team Providers Care Feather Separator Name Role Phone Emmett Carrizales MD Primary Care Provider [phone] Emmett Carrizales MD Unavailable [phone] Karolyn Tobar RN Unavailable Unavailable Ifrah Whitfield APRN, PRANAV Unavailable [phone]- [phone] Reason for Visit * Auth/Cert (Routine) Specialty Diagnoses / Procedures Referred By Contac t Referred To Contact Referral ID Status Reason Start Date Expiration Date Visits Re quested Visits Authorized [id number] 1 1 Encounter Details Date Type Department Care Team (Late st Contact Info) Description 01/19/2025 [facility] [address] [place] [address], VP ANALYTICS [place] TELEPHONE ENCOUNTER Social History Tobacco Use Types Packs/Day Years [...] Never 10/06/2024 How often do you attend christian or samaritan serv ices? Never 10/06/2024 Do you belong to any clubs o r organizations such as christian groups, unions, fraternal or athletic groups, or [...] Total Score - Questions 1-9 0 09/14 [facility] - [...] any time in the past 12 m onths, were you homeless or living in a [...] 01/20/2025 1:00 AM CDT [facility] Visit [facility] [address] [place] [address] Pat Abdullahi OT 01/22/2025 1:00 AM CDT Home Care Visit [address] [address] Nata Casas RN [place] 01/26/2025 1:00 PM CDT Clinical Support [facility] On[facility] Services [address] [place] [address] Discharge Disposition: Discharged to home or Selfcare 01/27/2025 1:00 AM CDT Home Care Visit [address] [address] Gayatri Rubio, CHAIN MACHINE OPERATOR 01/29/2025 1:00 AM CDT Home Care Visit [address] [address] Gayatri Rubio, CHAIN MACHINE OPERATOR 02/02/2025 1:00 AM CDT Home Care Visit [address] [address] Gayatri Rubio, CHAIN MACHINE OPERATOR 02/04/2025 1:00 AM CDT Home Care Visit [address] [address] Gayatri Rubio, CHAIN MACHINE OPERATOR 02/09/2025 1:00 AM CDT Home Care Visit [address] [address] Caren Dover, PT 02/25/2025 11:30 AM CDT Office Visit [facility] - Internal Medicine - [place] [address] [place] [phone] Emmett Carrizales MD [address] [place] [address] documented as of this encounter Goals Goal [...] alert plan in case I fall - picket labor union clutter from the floors - use a [...] Time PHQ-9 Depression Total Score: 0 10/06/19 25 4:14 PM CLIPPER AUTOMATIC documented as of this encounter Care Teams Feather Separator Relationship Specialty Start Date End Date Emmett Carrizales MD [address] [place] [address] PCP - General Internal Medicine 11/29/24 Emmett Carrizales MD [address] [place] [address] Internal Medicine 11/29/24 Karolyn Tobar, [place] Nurse Human Resources Representative 06/07/23 Ifrah Whitfield APRN, CREDIT AND COLLECTIONS REPRESENTATIVE #[address] [address] Nurse Practitioner Advanced Practice Nurse 03/06/22 documented as of this encounter
--- OUTSIDE RECORDS SUMMARY | 2025-01-19 16:21 | XMS_ITS | Encounter Summary ---
Author Organization [facility] Address [address] [place] [address] Phone Care Team Providers Care Operations Research Analyst Name Role Phone Emmett Carrizales MD Primary Care Provider [phone] Emmett Carrizales MD Unavailable [phone] Karolyn Tobar RN Unavailable Unavailable Ifrah Whitfield APRN, PATTERNMAKER WOOD Unavailable [phone] Encounter Details Date Type Department Care Team (Late st Contact Info) Description 01/16/2025 Telephone [facility] - Internal Medicine - [place] [address] [place] [address] Emmett Carrizales MD [address] [place] [address] Social History Tobacco Use Types Packs/Day Years Used Date Smoking Tobacco: Never Passive Smoke Exposure: Never Smokeless Tobacco: Never Alcohol Use Standard Drinks/Week Comments Not Currently 0 (1 standard drink = 0.6 oz pur e alcohol) [facility] Utilities Answer Date Recorded In the past [...] Never 10/06/2024 How often do you attend restorationism or tenriism serv ices? Never 10/06/2024 Do you belong to any clubs o r organizations such as restorationism groups, unions, fraternal or athletic groups, or [...] Total Score - Questions 1-9 0 09/14 [facility] - Occupational Stress [...] place to sleep or slept in a prison (including now)? No 09/13/2023 Housing Stability Vital Sign Answer David e Recorded In the last 12 months, was t here a time when you were not able to pay the mortgage or rent on time? No 10/06/2024 In the past 12 months, how m any times have you moved where you were living? 0 10/06/2024 At any time in the past 12 m [facility], were you homeless or living in a prison (including now)? No 10/06/2024 Education Answer Date [...] encounter Miscellaneous Notes * Telephone Encounter - Laquita Silvestre - 01/16/2025 12:32 PM CDT Nata the Nurse with [facility] would like a return call from the Nurse to go over Medications that Lana is supposed to be taking. Phone - [phone] documented in this encounter Plan of Treatment Upcoming Encounters Date Type Department Care Team (Late st Contact Info) Description 01/20/2025 1:00 AM CDT Home Care Visit [address] [address] Pat Abdullaih OT 01/22/2025 1:00 AM CDT Home Care Visit [address] [address] Nata Casas RN [place] 01/26/2025 1:00 PM CDT Clinical Support [facility] Oncology Services [address] [place] [address] Discharge Disposition: Discharged to home or Selfcare 01/27/2025 1:00 AM CDT Home Care Visit [address] [address] Gayatri Rubio, ADULT EDUCATION PROFESSIONAL 01/29/2025 1:00 AM CDT Home Care Visit [address] [address] Gayarti Rubio, ADULT EDUCATION PROFESSIONAL 02/02/2025 1:00 AM CDT Home Care Visit [address] [address] Gayatri Rubio, ADULT EDUCATION PROFESSIONAL 02/04/2025 1:00 AM CDT Home Care Visit [address] [address] Gayatri Rubio, ADULT EDUCATION PROFESSIONAL 02/09/2025 1:00 AM CDT Home Care Visit [address] [address] Caren Dover, PT 02/25/2025 11:30 AM CDT Office Visit [facility] - Internal Medicine - [place] [address] [place] [id number] Emmett Carrizales MD [address] [place] [address] documented as of this encounter Goals Goal [...] alert plan in case I fall - pickling machine operator clutter from the floors - use [...] Not on track(2024 11:41 AM CDT) Karolyn Wakefield RN Note: Evidence-based guidance: Assess [...] Total Score: 0 10/06/19 25 4:14 PM LOGGING RAFTER LABORER documented as of this encounter Care Teams Operations Research Analyst Relationship Specialty Start Date End Date Emmett Carrizales MD [address] [place] [address] PCP - General Internal Medicine 11/29/24 Emmett Carrizales MD [address] [place] [address] Internal Medicine 11/29/24 Karolyn Tobar, RN [place] Nurse Municipal Clerk 06/07/23 Ifrah Whitfield APRN, PATTERNMAKER WOOD #[address] [address] Nurse Practitioner Advanced Practice Nurse 03/06/22 documented as of this encounter
--- OUTSIDE RECORDS SUMMARY | 2025-01-19 16:21 | XMS_ITS | Encounter Summary ---
Author Organization [facility] Address [address] 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 Engine Mechanic Name Role Phone Emmett Carrizales MD Primary Care Provider [phone] Emmett Carrizales MD Unavailable [phone] Karolyn Tobar RN Unavailable Unavailable Ifrah Whitfield APRN, PRANAV Unavailable [phone]- [phone] Reason for Visit * Auth/Cert (Routine) Specialty Diagnoses / Procedures Referred By Contac t Referred To Contact Referral ID Status Reason Start Date Expiration Date Visits Re quested Visits Authorized [id number] 1 1 Encounter Details Date Type Department Care Team (Latest Contact Info) Description 01/19/2025 11:30 AM CDT [facility] [address] [place] [address], R D INTERN [place] R D INTERN - INITIAL EVALUATION Social History Tobacco Use Types Packs/Day Years Used Date Smoking Tobacco: Never Passive Smoke Exposure: Never Smokeless Tobacco: Never Alcohol Use Standard Drinks/Week Comments Not Currently 0 (1 standard drink = 0.6 oz pur e alcohol) [facility] Utilities Answer Date Recorded In the [...] Never 10/06/2024 How often do you attend sikh or jewish serv ices? Never 10/06/2024 Do you belong to any clubs o r organizations such as sikh groups, unions, fraternal or athletic groups, or [...] Total Score - Questions 1-9 0 09/14 [facility] - [...] place to sleep or slept in a usp (including now)? No 09/13/2023 Housing Stability Vital Sign Answer David e Recorded In the last 12 months, was t here a time when you were not able to pay the mortgage or rent on time? No 10/06/2024 In the past 12 months, how m any times have you moved where you were living? 0 10/06/2024 At any time in the past 12 m [facility], were you homeless or living in a usp (including now)? No 10/06/2024 Education Answer Date [...] 1:00 AM CDT Home Care Visit [facility] [address] [place] [address] Pat Abdullahi OT 01/22/2025 1:00 AM CDT Home Care Visit [address] [address] Nata Casas, [place] 01/26/2025 1:00 PM CDT Clinical Support [facility] Oncology Services [address] [place] [address] Discharge Disposition: Discharged to home or Selfcare 01/27/2025 1:00 AM CDT Home Care Visit [address] [address] Gayatri Rubio, DIESEL ENGINE TESTER 01/29/2025 1:00 AM CDT Home Care Visit [address] [address] Gayatri Rubio, DIESEL ENGINE TESTER 02/02/2025 1:00 AM CDT Home Care Visit [address] [address] Gayatri Rubio, DIESEL ENGINE TESTER 02/04/2025 1:00 AM CDT Home Care Visit [address] [address] Gayatri Rubio, DIESEL ENGINE TESTER 02/09/2025 1:00 AM CDT Home Care Visit [address] [address] Caren Dover, PT 02/25/2025 11:30 AM CDT Office Visit [facility] Group - Internal Medicine - [place] [address] [place] [phone] Emmett Carrizales MD [address] [place] [address] documented as of this encounter Goals Goal [...] Total Score: 0 10/06/19 25 4:14 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
--- OUTSIDE RECORDS SUMMARY | 2025-01-19 16:21 | XMS_ITS | Clinical Summary ---
Author Organization [facility] Address [address] [place] [address] Phone Care Team Providers Care Scrubber Operator Name Role Phone Emmett Carrizales MD Primary Care Provider Emmett Carrizales MD Unavailable [phone] Karolyn Tobar RN Unavailable Unavailable Ifrah Whitfield APRN, INCLUSION INTERN Unavailable Allergies Active Allergy Reactions Criticality Noted Date Comments Latex Hives,Rash Medium 06/29/2015 Latex Rash 11/29/2024 Sulfa Antibiotics Rash 06/29/2015 Sulfa Antibiotics Rash 11/29/2024 Adhesive Tape Hives,Rash Medications buPROPion (WELLBUTRIN) 300 MG TABLET SR 24 HR XL tabletIndication s:Major Depressive Disorder Take 1 Tablet by mouth every morning. Indications: Major Depressive Disorder Active escitalopram (LEXAPRO) 20 MG TabletIndication s:Generalized Anxiety Disorder,Major Depressive Disorder Take 1 Tablet by mouth daily. Indications: Generalized Anxiety Disorder, Major Depressive Disorder Active lamoTRIgine (LAMICTAL) 150 MG TabletIndication s:Bipolar Mood Disorder Take 1 Tablet by mouth 2 times daily. Indications: Manic-Depression Active acetaminophen (TYLENOL) 325 MG TabletIndication s:Fever,Pain Take 1 Tab by mouth every 6 hours as needed for Pain or Fever (for temperature greater than 100.4 F). Do not exceed 4000 mg of acetaminophen in 24 hour from all sources. 03/08/20 16 Active busPIRone (BUSPAR) 15 MG TabletIndication s:Anxiety Disorder,Major Depressive Disorder Take 1 Tablet by mouth 3 times daily. Indications: Anxiety Disorder, Major Depressive Disorder Active pantoprazole (PROTONIX) 40 MG Tablet Delayed ResponseIndicati ons:Peptic Ulcer Take 1 Tablet by mouth daily. Indications: Peptic Ulcer Active Amphet-Dextroamp het 3-Bead ER (Mydayis) 37.5 MG CAPSULE SR 24 HRIndications:At tention Deficit Hyperactivity Disorder Take 1 Capsule by mouth daily. Indications: Attention Deficit Hyperactivity Disorder Active Trintellix 10 MG TabletIndication s:Major Depressive Disorder Take 1 Tablet by mouth daily. Indications: Major Depressive Disorder 07/17/20 22 Active aspirin EC 81 MG Tablet Delayed Response Aspirin 81 MG Oral Tablet QTY: 30 tablet Days: 30 Refills: 0 Written: 11/10/15 Patient Instructions: 1 tablet daily 11/10/19 16 Active alendronate (FOSAMAX) 70 MG Tablet Take 1 Tablet by mouth every 7 days. 02/15/20 23 Active ibuprofen (MOTRIN) 200 MG Tablet Take 400 mg by mouth every 6 hours as needed for Mild or more severe pain. 01/17/20 25 Active Calcium Carb-Cholecalcif rashaun ([employer] Calcium 600 & Vitamin D3) 600-20 MG-MCG Tablet Take 1 Tablet by mouth daily. 30 Tablet 3 07/27/20 23 Active azelastine (ASTELIN) 0.1 % Solution TWO (2) SPRAYS BY NASAL ROUTE TWO (2) TIMES DAILY. 30 mL 3 08/23/19 24 Active memantine (NAMENDA) 5 MG Tablet Take 1 Tablet by mouth daily. Active rOPINIRole (REQUIP) 2 MG TabletIndication s:Restless Leg Syndrome Take 1 Tablet by mouth nightly. Indications: Restless Leg Syndrome 30 Tablet 01/09/20 24 Active Ferrous Sulfate (Iron) 28 MG Tablet Take 1 Tablet by mouth every other day. 01/17/20 25 Active hydrOXYzine (ATARAX) 25 MG Tablet 06/15/20 21 Active Memantine HCl-Donepezil HCl (Namzaric) 28-10 MG CAPSULE SR 24 HR 03/28/20 24 Active methocarbamol (ROBAXIN) 500 MG Tablet Take 1 Tablet by mouth daily. 01/29/20 24 Active triamcinolone (KENALOG) 0.1 % Ointment Apply thin film to affected area(s) twice daily until healed. 80 g 3 05/29/20 24 Active Misc. Devices MiscIndications: Bilateral lower extremity [...] BEDTIME. 16 g 2 08/14/19 25 Active furosemide (LASIX) 20 MG Tablet TAKE 1 TABLET BY MOUTH DAILY. 90 Tablet 09/15/19 25 Active levothyroxine (SYNTHROID) 100 MCG TabletIndication s:Hypothyroidism TAKE ONE (1) TABLET BY MOUTH EVERY DAY 90 Tablet 09/15/19 25 Active atorvastatin (LIPITOR) 20 MG Tablet TAKE ONE (1) TABLET BY MOUTH DAILY LAST REFILL UNTIL SEEN 90 Tablet 09/15/19 25 Active albuterol 108 (90 Base) MCG/ACT Aerosol SolutionIndicati ons:Chronic Obstructive Pulmonary Disease TAKE ONE (1) TO TWO (2) PUFFS BY INHALATION EVERY SIX (6) HOURS NEEDED FOR WHEEZING OR COUGH. 8.5 g 1 09/18/19 25 Active clobetasol (TEMOVATE) 0.05 % Solution Apply to affected area of scalp twice a day as needed for scaling and itching (do not apply to face) 08/01/20 24 Active cyclobenzaprine (FLEXERIL) 10 MG Tablet Take 1/2 tablet by mouth 3 times a day as needed for muscle spasms 09/01/19 25 Active ketoconazole (NIZORAL) 2 % Shampoo Use to wash scalp twice weekly. Leave on for five minutes then rinse off 09/09/19 25 Active predniSONE (DELTASONE) 20 MG Tablet 09/01/19 25 Active rivastigmine (EXELON) 4.6 MG/24HR PATCH 24 HR 1 patch transderman daily; apply to skin; rotate application sites daily; a site should not repeat within 14 days 09/20/19 25 Active Misc. Devices Misc Supply and instructions: 1 Each 10/31/19 25 Active OXYGEN CONCENTRATOR 2 L/min by Nasal route continuous. Use 2L O2 continuously at night. Use portable tanks in case of power failure. Active amLODIPine-benaz epril (LOTREL) 5-10 MG Capsule TAKE 1 CAPSULE BY MOUTH DAILY. 30 Capsule 5 11/07/19 25 Active doxycycline hyclate (VIBRAMYCIN) 100 MG Capsule Take 100 mg by mouth 2 times daily. 12/02/19 25 Active HYDROcodone-acet aminophen (NORCO) 5-325 MG Tablet Take 1 Tablet by mouth every 6 hours as needed. 11/15/19 25 025 Discontinu ed(Therapy completed) HYDROcodone-acet aminophen (NORCO) 5-325 MG TabletIndication s:Closed fracture of left elbow, initial encounter Take 1 Tablet by mouth every 6 hours as needed for Severe pain for up to 3 days. 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 L[employer]DS RECOVERY - INITIAL EVALUATION 01/19/2025 9:30 AM CDT Home Care Visit [address] [address] Caren Dover, PT PT - INITIAL EVALUATION 01/19/2025 Home Care Visit [address], REFINERY OPERATOR LIGHT ENDS RECOVERY TELEPHONE ENCOUNTER 01/16/2025 2:00 PM CDT Home Care Visit [address] [address] Nata Casas RN SN - [facility] START OF CARE 01/16/2025 Plan of Care Documentation [address] [address] 01/16/2025 Telephone [facility] [address] [place] [address] Emmett Carrizales MD 01/16/2025 Patient Outreach [facility] HealthCare Emergency Department Director Management [address] [place] [address] Karolyn Tobar RN Transition of Care ([facility]ET[facility] Week 1) 01/14/2025 [facility] [address] [place] [address] Emmett Carrizales MD 01/13/2025 1:30 PM CDT Office Visit [facility] [address] [place] [address] Emmett Carrizales MD Closed fracture of left elbow, initial encounter (Primary Dx); Essential hypertension, benign Discharge Disposition: Discharged to home or Selfcare 01/13/2025 Travel 01/10/2025 Patient Outreach [facility] HealthCare Emergency Department Director Management [address] [place] [address] Anabela Villegas, sample hand of Care (Post discharge follow up call) 01/09/2025 10:40 AM CDT - 01/09/2025 2:13 PM CDT Emergency [facility] Emergency [address] [place] [address] Zina Ferris APRN, CNP Closed fracture of left elbow, initial encounter Discharge Disposition: Discharged to home or Selfcare 01/09/2025 Travel 01/07/2025 [facility] Out[facility] Emergency [facility] Director Management [address] [place] [address] Leonie Kinsey Care Management (Monthly monitoring call-(December)) 12/29/2024 1:00 PM CDT Clinical Support [facility] Oncology Services [address] [place] [phone] Kai Hartman MD Age-related osteoporosis without current pathological fracture Discharge Disposition: Discharged to home or Selfcare 12/29/2024 Travel 12/10/2024 9:00 AM CDT Office Visit [facility] - Internal Medicine - [place] [address] [place] [phone] Emmett Carrizales MD Contusion of face, sequela (Primary Dx); Traumatic injury of head, sequela Discharge Disposition: Discharged to home or Selfcare 12/10/2024 Travel 12/03/2024 Patient Outreach [facility] HealthCare Emergency Department Director Management [address] [place] [address] Karolyn Tobar, RN Care Management ([facility]) 12/01/2024 1:00 PM CDT Clinical Support [facility] Oncology Services [address] [place] [address] Kai Hartman MD Age-related osteoporosis without current pathological fracture (Primary Dx) Discharge Disposition: Discharged to home or Selfcare 12/01/2024 Travel 11/29/2024 2:55 PM CDT - 11/29/2024 4:39 PM CDT [facility] [place] [phone] Olaf Castellano, Acute head trauma, initial encounter Discharge Disposition: Discharged to home or Selfcare 11/29/2024 Travel 11/26/2024 12:30 PM CDT Home Care Visit [address] [address] Jolynn Ba, PT PT - OASIS DISCHARGE 11/26/2024 Travel 11/24/2024 10:30 AM CDT Home Care Visit [address] [address] Gayatri Rubio, EQUESTRIAN TRAINER PT - HOME VISIT 11/21/2024 Home Care Visit [address] [address] Pat Abdullahi OT OT - DISCHARGE SUMMARY 11/20/2024 9:30 AM CDT Home Care Visit [address] [address] Gayatri Rubio, EQUESTRIAN TRAINER PT - HOME VISIT 11/20/[address] [address] Ruby Sotelo, RN Appointment 11/19/2024 12:30 PM CDT Home Care Visit [address] [address] Harika Gold OTA OT - DISCIPLINE DISCHARGE 11/19/2024 Home Care Visit [address] [address] Harika Gold OTA CASE COMMUNICATION 11/18/2024 Home Care Visit [address] [address] Jolynn Ba, PT CASE COMMUNICATION 11/17/2024 2:00 PM CDT Home Care Visit [address] [address] Jolynn Ba, PT PT - REASSESSMENT 11/17/2024 Travel 11/12/2024 [facility]phone [facility] [address] [place] [phone] Emmett Carrizales MD Advice Only 11/11/2024 1:30 PM CDT Home Care Visit [address] [address] Gayatri Rubio, EQUESTRIAN TRAINER PT - HOME VISIT 11/11/[address] [address] Rosalind Zamorano RN 11/11/2024 Telephone [facility] Medical Group - Internal Medicine - [place] [address] [place] [address] Emmett Carrizales MD 11/10/2024 2:00 PM CDT Home Care Visit [address] [address] Liya Isaac OTA OT - HOME VISIT 11/10/2024 Home Care Visit [address] [address] Jolynn Ba, PT CARE CONFERENCE 11/10/2024 Travel 11/07/2024 3:00 PM CDT Home Care Visit [address] [address] Harika Gold OTA OT - HOME VISIT 11/06/2024 12:00 PM CDT Home Care Visit [address] [address] Gayatri Rubio, EQUESTRIAN TRAINER PT - HOME VISIT 11/06/2024 [facility] [address] [place] [phone] Emmett Carrizales MD Medication Refill 11/04/2024 2:30 PM CDT Home Care Visit [address] [address] Gayatri Rubio EQUESTRIAN TRAINER PT - HOME VISIT 11/04/2024 1:00 PM CDT Home Care Visit [address] [address] Pat Abdullahi OT OT - INITIAL EVALUATION 11/04/2024 Results Follow-Up [address] [phone] Kori Hudson, PAC XR HAND 3 OR MORE VIEWS RIGHT 11/04/[address] [place] [phone] Kori Hudson, PAC 11/04/2024 Patient Outreach [facility] Emergency Department Director Management [address] [place] [address] Karolyn Tobar, RN Care Management ([facility]) 11/03/2024 Telephone [facility] [address] [place] [address] Emmett Carrizales MD Medication Refill 11/03/2024 Results Follow[facility]Up [facility] [address] [place] [address] Kori Hudson, PAC EKG 12 LEAD 11/03/2024 Telephone [facility] [address] [place] [address] Emmett Carrizales MD Need Order 10/31/2024 10:30 AM CDT Home Care Visit [address] [address] Jolynn Ba, PT PT - OASIS START OF CARE 10/31/2024 Telephone [facility] [address] [place] [address] Jolynn Ba, PT Medication Management 10/31/2024 Telephone [facility] [address] [place] [address] Jolynn Ba, PT Home Health Admission 10/31/2024 Plan of Care Documentation [address] [address] 10/31/2024 Travel 10/30/2024 11:30 AM CDT - 10/30/2024 11:59 PM CDT Hospital Encounter [facility] Diagnostic Radiology [address] [place] [address] Kori Hudson, PAC Discharge Disposition: Discharged to home or Selfcare 10/30/2024 11:28 AM CDT - 10/30/2024 11:29 AM CDT [facility] [address] [place] [address] Kori Hudson, PAC Discharge Disposition: Discharged to home or Selfcare 10/30/2024 10:30 AM CDT Office Visit [facility] [address] [phone] Kori Hudson, MARTÍN Pain of toe, unspecified laterality (Primary Dx); Preop examination; Abnormal finding of blood chemistry, unspecified; Pain of right hand; Mobility impaired Discharge Disposition: Discharged to home or Selfcare 10/30/2024 Results Follow-Up [address] [address] Kori Hudson, PAC CMP (COMPREHENSIVE METABOLIC PANEL), HEMOGLOBIN A1C W/ ESTIMATED GLUCOSE, CBC WITH AUTO DIFFERENTIAL 10/30/2024 Telephone [facility] Internal Medicine - [place] [address] [place] [address] Emmett Carrizales MD 10/30/2024 Telephone [facility] [address] [address] Kori Hudson, MARTÍN 10/30/2024 Travel from Last 3 Months Immunizations Immunization Administration [...] Valent 06/14/2021 Pneumococcal conjugate PCV20 , polysaccharide [id number] conjugate, adjuvant, PF 06/15/2022 TDAP Vaccine 08/08/2021 Td Vaccine (preservative free) 11/29/2024 Zoster Vaccine Recombinant 08/15/2022,03/14/2022 Family History Medical [...] drink = 0.6 oz pur e alcohol) [facility] Utilities Answer Date Recorded In the past 12 months has [employer], gas, oil, or water [facility] threatened to shut off services in your home? No 10/06/2024 Social Connection and Isolation Panel Answer Date Recorded In a typical week, how many times do you talk on the phone with family, friends, or neighbors? Once a week 10/06/2024 How often do you get together with friends or re latives? Never 10/06/2024 How often do you attend yazidism or scientology serv ices? Never 10/06/2024 Do you belong to any clubs o r organizations such as yazidism groups, unions, fraternal or athletic groups, or [...] Total Score - Questions 1-9 0 09/14 [facility] - Occupational [...] place to sleep or slept in a group home (including now)? No 09/13/2023 Housing Stability Vital Sign Answer David e Recorded In the last 12 months, was t here a time when you were not able to pay the mortgage or rent on time? No 10/06/2024 In the past 12 months, how m any times have you moved where you were living? 0 10/06/2024 At any time in the past 12 m [facility], were you homeless or living in a group home (including now)? No 10/06/2024 Education Answer Date [...] Sign Reading Time Taken Comments Blood Pressure 148/85 01/19/2025 9:45 AM CDT Pulse 90 01/19/2025 9:45 AM CDT Temperature 36.6 C (97.8 F) 01/19/2025 9:45 AM CDT Respiratory Rate 16 01/19/2025 9:45 AM CDT Oxygen Saturation 96% 01/19/2025 9:45 AM CDT Inhaled Oxygen Concentration - - Weight 73.9 kg (163 lb) 01/13/2025 1:28 PM CDT Height 154.9 cm (5' 1) 01/16/2025 12:33 PM CDT Body Mass Index 30.8 01/13/2025 1:28 PM CDT Plan of Treatment Upcoming Encounters Date Type Department Care Team (Late st Contact Info) Description 01/20/2025 1:00 AM CDT Home Care Visit [address] [address] Pat Abdullahi OT 01/22/2025 1:00 AM CDT Home Care Visit [address] [address] Nata Casas RN [place] 01/26/2025 1:00 PM CDT [facility] [address] [place] [address] Discharge Disposition: Discharged to home or Selfcare 01/27/2025 1:00 AM CDT Home Care Visit [address] [address] Gayatri Rubio, EQUESTRIAN TRAINER 01/29/2025 1:00 AM CDT Home Care Visit [address] [address] Gayatri Rubio, EQUESTRIAN TRAINER 02/02/2025 1:00 AM CDT Home Care Visit [address] [address] Gayatri Rubio, EQUESTRIAN TRAINER 02/04/2025 1:00 AM CDT Home Care Visit [address] [address] Gayatri Rubio, EQUESTRIAN TRAINER 02/09/2025 1:00 AM CDT Home Care Visit [address] [address] Caren Dover, PT 02/25/2025 11:30 AM CDT Office Visit [facility] - [place] [address] [place] [phone] Emmett Carrizales MD [address] [place] [address] Health Maintenance Due Date Last Done Comments Hepatitis C Virus (HCV) Screening 1950 Cologuard 1997 Immunochemical Fecal Occult Blood 1997 SARS-COV-2 Immunization ( season) 2024 03/23/2021, 11/18/2020, 11/02/2020, Additional history exists Mammogram 03/17/2025 03/17/2024, 11/14/2021 Colonoscopy 12/01/2025 12/01/2020 Colorectal Cancer Screening 12/01/2025 DEXA Bone Density 07/30/2026 07/30/2024, , 04/14/2022 Respiratory Syncytial Virus (RSV) Immunization (Adult) (1 - 1-dose 75+ series) 2027 Td Immunization Every 10 Years (Adults With 1 Tdap) 11/29/2034 11/29/2024, 08/08/2021 Pneumococcal Immunization (50+ years) Completed 06/15/2022, 06/14/2021 Pneumococcal Immunization Combined Discontinued 06/15/2022, 06/14/2021 Influenza Immunization Discontinued , 05/22/2023, 06/15/2022, Additional history exists Zoster Immunization Completed 10/05/2023, 06/26/2023, 08/15/2022, Additional history exists DTaP/Tdap/Td Immunization Discontinued 11/29/2024, Hepatitis B Immunization Aged Out No longer eligible based on patient's age to complete this topic Human Papillomavirus (HPV) Immunization Aged Out No longer eligible based [...] alert plan in case I fall - cone picker clutter from the floors - use [...] be referred to for increased hip pain. Medical Devices Implanted Type Area Sleeve Maker Device Identifier Shelf Expiration Date Model / Serial / Lot K-Wire Plain .062 - [id number] Implanted:Qty : 1 on 08/01/2017 by Killian Reese DPM at [facility] IMPLANT Left: Foot [employer] KD-062-9 / KD-062-9 / [id number] Plate Humeral Proximal Left Distal Holex3 - [id number] Implanted:Qty : 1 on 11/15/2022 by Gamaliel Yi MD at [facility] IMPLANT Left: Humerus [employer] 12/10/2022 [id number] / [id number] / N/A Screw Bone Locking 4mm 26mm Self-Tapping - [id number] Implanted:Qty : 1 on 11/15/2022 by Gamaliel Yi MD at [facility] IMPLANT Left: Humerus [employer] 12/10/2022 [id number] / [id number] / [id number] Screw Bone Locking 4mm 40mm Self-Tapping - [id number] Implanted:Qty : 1 on 11/15/2022 by Gamaliel Yi MD at [facility] IMPLANT Left: Humerus [employer] 12/10/2022 [id number] / [id number] / N/A Screw Bone 3.5mm 26mm Ti Cortical Self-Tapping Axsos - [id number] Implanted:Qty : 1 on 11/15/2022 by Gamaliel Yi MD at [facility] IMPLANT Left: Humerus [employer] 12/10/2022 [id number] / [id number] / N/A Screw Bone 3.5mm 28mm Ti Cortical Self-Tapping Axsos - [id number] Implanted:Qty : 1 on 11/15/2022 by Gamaliel Yi MD at [facility] IMPLANT Left: Humerus [employer] 12/10/2022 [id number] / [id number] / N/A 4mm Locking Screw Implanted:Qty : 3 on 11/15/2022 by Gamaliel Yi MD at [facility] Left: Humerus PHILLIP 12/10/2022 [id number] / [id number] / N/A 4mm Locking Screw Implanted:Qty : 1 on 11/15/2022 by Gamaliel Yi MD at [facility] Left: Humerus PHILLIP 12/10/2022 [id number] / [id number] / N/A Locking Screw Implanted:Qty : 1 on 11/15/2022 by Gamaliel Yi MD at [facility] 12/10/2022 [id number] / [id number] / N/A 4mm Locking Screw Implanted:Qty : 1 on 11/15/2022 by Gamaliel Yi MD at [facility] Left: Humerus PHILLIP 12/10/2022 [id number] / [id number] / N/A 4mm Locking Screw Implanted:Qty : 1 on 11/15/2022 by Gamaliel Yi MD at [facility] Left: Humerus PHILLIP 12/10/2022 [id number] / [id number] / N/A Procedures Procedure Name Priority Date/Time Associated Diagnosis Comments CT CERVICAL SPINE WO/ CONTRAST Stat with Interpretation 01/09/2025 12:[address] FACIAL BONES WO CONTRAST Stat with Interpretation 01/09/2025 12:[address] HEAD OR BRAIN WO CONTRAST Stat with Interpretation 01/09/2025 11:59 AM CDT XR HIP 2-3 VIEWS W/PELVIS UNILATERAL LEFT STAT 01/09/2025 11:49 AM CDT XR ELBOW MINIMUM 3 VIEWS LEFT STAT 01/09/2025 11:48 AM CDT XR HUMERUS LEFT STAT 01/09/2025 11:[address] HEAD OR BRAIN WO CONTRAST Stat with Interpretation 11/29/2024 3:[address] CERVICAL SPINE WO/ CONTRAST Stat with Interpretation 11/29/2024 3:23 PM CDT LACERATION REPAIR Routine 11/29/2024 2:5 6 PM CDT XR HAND 3 OR MORE VIEWS RIGHT Routine 10/30/2024 11:57 AM CDT Pain of right hand EKG 12 LEAD STAT 10/30/2024 11:35 AM CDT Preop examination CBC WITH AUTO DIFFERENTIAL Routine 10/30/2024 11:28 AM CDT Preop examination HEMOGLOBIN A1C W/ ESTIMATED GLUCOSE Routine 10/30/2024 11:28 AM CDT Preop examination Abnormal finding of blood chemistry, unspecified COMPLETE BLOOD COUNT (CBC) WITH DIFF Routine 10/30/2024 11:28 AM CDT Preop examination CMP (COMPREHENSIVE METABOLIC PANEL) Routine 10/30/2024 11:28 AM CDT Preop examination BONE DENSITY GENERIC 07/30/2024 12:00 AM WORK 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 Anatomical Region Laterality Modality Spine N/A Computed Tomogra phy 01/09/2025 12:2 9 PM CDT Impressions 01/09/2025 12:32 PM CDT IMPRESSION: Mild osteopenia with multilevel cervical spondylosis without definite evidence of acute fracture or subluxation. Narrative 01/09/2025 12:32 PM CDT EXAM DESCRIPTION: CT CERVICAL SPINE WO/ CONTRAST REASON FOR STUDY: Ground level fall onto concrete today with left side head/facial trauma. Left eye/forehead lac noted upon arrival. Left neck and head pain. TECHNIQUE: Axial images through the cervical spine with sagittal and coronal reformatted images. Automated exposure control was used as a dose optimization technique for this examination. COMPARISON: None FINDINGS: There is mild osteopenia. There is no definite evidence of acute fracture or subluxation the cervical spine. There is straightening of the normal cervical lordotic curvature, which may be related to muscle spasms. There is grade 1 anterolisthesis of C4 on C5. There is a minimal retrolisthesis of C5 on C6 and C6 on C7. There is a minimal to mild grade 1 anterolisthesis C7 on T1. There are multilevel degenerative changes cervical spine with disc space narrowing, endplate osteophytosis, and uncovertebral arthropathy, which causes varying degrees of neural foraminal narrowing. There are degenerative changes atlantoaxial interval with joint space narrowing, spurring, and mild sclerosis. There are degenerative changes craniocervical interval with joint space narrowing, mild sclerosis, and minimal spurring. The visualized paravertebral soft tissues are grossly unremarkable. The visualized lung apices are grossly clear. THIS IS AN ELECTRONICALLY VERIFIED FINAL REPORT 01/09/2025 12:29 PM - Electronically signed by Jovana mOer D.O. PS: PS Report ID: [id number] Reading Location: [id number] Procedure Note Jovana Omer DO - 01/09/2025 EXAM DESCRIPTION: CT CERVICAL SPINE WO/ CONTRAST REASON FOR STUDY: Ground level fall onto concrete today with left side head/facial trauma. Left eye/forehead lac noted upon arrival. Left neck and head pain. TECHNIQUE: Axial images through the cervical spine with sagittal and coronal reformatted images. Automated exposure control was used as a dose optimization technique for this examination. COMPARISON: None FINDINGS: There is mild osteopenia. There is no definite evidence of acute fracture or subluxation the cervical spine. There is straightening of the normal cervical lordotic curvature, which may be related to muscle spasms. There is grade 1 anterolisthesis of C4 on C5. There is a minimal retrolisthesis of C5 on C6 and C6 on C7. There is a minimal to mild grade 1 anterolisthesis C7 on T1. There are multilevel degenerative changes cervical spine with disc space narrowing, endplate osteophytosis, and uncovertebral arthropathy, which causes varying degrees of neural foraminal narrowing. There are degenerative changes atlantoaxial interval with joint space narrowing, spurring, and mild sclerosis. There are degenerative changes craniocervical interval with joint space narrowing, mild sclerosis, and minimal spurring. The visualized paravertebral soft tissues are grossly unremarkable. The visualized lung apices are grossly clear. THIS IS AN ELECTRONICALLY VERIFIED FINAL REPORT 01/09/2025 12:29 PM - Electronically signed by Jovana Omer D.O. PS: PS Report ID: [id number] Reading Location: [id number] IMPRESSION: Mild osteopenia with multilevel cervical spondylosis without definite evidence of acute fracture or subluxation. us Zina Marie Barrington RECREATIONAL SPECIALIST, INCLUSION INTERN IMG CT ORDERABLES Final Result * CT FACIAL BONES WO CONTRAST (01/09/2025 12:03 PM CDT) Anatomical Region Laterality Modality Head N/A Computed Tomogra phy 01/09/2025 12:3 3 PM CDT Impressions 01/09/2025 12:35 PM CDT IMPRESSION: Mild osteopenia without definite evidence of acute displaced facial bone fracture. Left periorbital and facial soft tissue swelling and edema, which is likely posttraumatic. Narrative 01/09/2025 12:35 PM CDT EXAM DESCRIPTION: CT FACIAL BONES WO CONTRAST REASON FOR STUDY: Ground level fall onto concrete today with left side head/facial trauma. Left eye/forehead lac noted upon arrival. Left neck and head pain. TECHNIQUE: Noncontrast computed tomography images through the paranasal sinuses. Reconstructed MPR images reviewed. All images stored on PACS. Automated exposure control was used as a dose optimization technique for this examination. COMPARISON: None FINDINGS: BONES: There is mild osteopenia. There is no definite evidence of acute displaced facial bone fracture. SOFT TISSUES: There is left periorbital and facial soft tissue swelling and edema, which is likely posttraumatic. There is no definite unenhanced CT evidence of a focal fluid collection or mass. SINUSES: There is mild mucosal thickening of the bilateral ethmoid air cells. There is a minimal mucosal thickening of the left maxillary sinus. The remainder of the paranasal sinuses are grossly clear. The bilateral ostiomeatal complexes are patent. NASAL CAVITY: The nasal septum is mildly deviated to the left with a small spur measuring 0.3 cm. ORBITS: No significant abnormalities visualized. TMJ: There are degenerative changes bilateral temporomandibular joints with joint space narrowing and mild spurring. MASTOIDS: The bilateral mastoid air cells are grossly clear. BRAIN: Please see same-day CT head report. OTHER: No other significant finding. THIS IS AN ELECTRONICALLY VERIFIED FINAL REPORT 01/09/2025 12:33 PM - Electronically signed by Jovana Omer D.O. PS: PS Report ID: [id number] Reading Location: [id number] Procedure Note Jovana Omer DO - 01/09/2025 EXAM DESCRIPTION: CT FACIAL BONES WO CONTRAST REASON FOR STUDY: Ground level fall onto concrete today with left side head/facial trauma. Left eye/forehead lac noted upon arrival. Left neck and head pain. TECHNIQUE: Noncontrast computed tomography images through the paranasal sinuses. Reconstructed MPR images reviewed. All images stored on PACS. Automated exposure control was used as a dose optimization technique for this examination. COMPARISON: None FINDINGS: BONES: There is mild osteopenia. There is no definite evidence of acute displaced facial bone fracture. SOFT TISSUES: There is left periorbital and facial soft tissue swelling and edema, which is likely posttraumatic. There is no definite unenhanced CT evidence of a focal fluid collection or mass. SINUSES: There is mild mucosal thickening of the bilateral ethmoid air cells. There is a minimal mucosal thickening of the left maxillary sinus. The remainder of the paranasal sinuses are grossly clear. The bilateral ostiomeatal complexes are patent. NASAL CAVITY: The nasal septum is mildly deviated to the left with a small spur measuring 0.3 cm. ORBITS: No significant abnormalities visualized. TMJ: There are degenerative changes bilateral temporomandibular joints with joint space narrowing and mild spurring. MASTOIDS: The bilateral mastoid air cells are grossly clear. BRAIN: Please see same-day CT head report. OTHER: No other significant finding. THIS IS AN ELECTRONICALLY VERIFIED FINAL REPORT 01/09/2025 12:33 PM - Electronically signed by Jovana Omer D.O. PS: PS Report ID: [id number] Reading Location: [id number] IMPRESSION: Mild osteopenia without definite evidence of acute displaced facial bone fracture. Left periorbital and facial soft tissue swelling and edema, which is likely posttraumatic. us Zina Ferris APRN, INCLUSION INTERN IMG CT ORDERABLES Final Result * CT HEAD OR BRAIN WO CONTRAST (01/09/2025 11:59 AM CDT) Only the most recent of2 resultswithin the time period is included. Anatomical Region Laterality Modality Head N/A Computed Tomogra phy 01/09/2025 12:2 8 PM CDT Impressions 01/09/2025 12:31 PM CDT IMPRESSION: No definite evidence of acute intracranial hemorrhage. Mild cortical atrophy with periventricular white matter hypoattenuation, which is likely secondary to chronic microvascular ischemic disease. Narrative 01/09/2025 12:31 PM CDT EXAM DESCRIPTION: CT HEAD OR BRAIN WO CONTRAST REASON FOR STUDY: Ground level fall onto concrete today with left side head/facial trauma. Left eye/forehead lac noted upon arrival. Left neck and head pain. TECHNIQUE: Axial images acquired through the brain without intravenous contrast. Images stored on PACS. Automated exposure control was used as a dose optimization technique for this examination. COMPARISON: None FINDINGS: BRAIN: There is no definite evidence of acute intracranial hemorrhage. There is no definite evidence of an extra-axial fluid collection. There is no significant midline shift or focal mass effect. The ventricles are stable in size and position. There is mild cortical atrophy with periventricular white matter hypoattenuation, which is likely secondary to chronic microvascular ischemic disease. CALVARIUM: There is hyperostosis frontalis interna. There is no definite evidence of acute displaced calvarial fracture SINUSES/MASTOIDS: Please see same-day CT head report. ORBITS: No significant abnormality. OTHER: No other significant abnormality. THIS IS AN ELECTRONICALLY VERIFIED FINAL REPORT 01/09/2025 12:28 PM - Electronically signed by Jovana Omer D.O. PS: PS Report ID: [id number] Reading Location: [id number] Procedure Note Jovana Omer DO - 01/09/2025 EXAM DESCRIPTION: CT HEAD OR BRAIN WO CONTRAST REASON FOR STUDY: Ground level fall onto concrete today with left side head/facial trauma. Left eye/forehead lac noted upon arrival. Left neck and head pain. TECHNIQUE: Axial images acquired through the brain without intravenous contrast. Images stored on PACS. Automated exposure control was used as a dose optimization technique for this examination. COMPARISON: None FINDINGS: BRAIN: There is no definite evidence of acute intracranial hemorrhage. There is no definite evidence of an extra-axial fluid collection. There is no significant midline shift or focal mass effect. The ventricles are stable in size and position. There is mild cortical atrophy with periventricular white matter hypoattenuation, which is likely secondary to chronic microvascular ischemic disease. CALVARIUM: There is hyperostosis frontalis interna. There is no definite evidence of acute displaced calvarial fracture SINUSES/MASTOIDS: Please see same-day CT head report. ORBITS: No significant abnormality. OTHER: No other significant abnormality. THIS IS AN ELECTRONICALLY VERIFIED FINAL REPORT 01/09/2025 12:28 PM - Electronically signed by Jovana Omer D.O. PS: LOUIE Report ID: [id number] Reading Location: [id number] IMPRESSION: No definite evidence of acute intracranial hemorrhage. Mild cortical atrophy with periventricular white matter hypoattenuation, which is likely secondary to chronic microvascular ischemic disease. Zina Ferris RECREATIONAL SPECIALIST, INCLUSION INTERN IMG CT ORDERABLES Final Result * XR HIP 2-3 VIEWS W/PELVIS UNILATERAL LEFT (01/09/2025 11:49 AM CDT) Anatomical Region Laterality Modality LOWER EXTREMITY, hip, Pelvis Left Dig ital Radiography 01/09/2025 1:36 PM CDT Impressions 01/09/2025 1:39 PM CDT IMPRESSION: No acute osseous abnormality. Narrative 01/09/2025 1:39 PM CDT EXAM DESCRIPTION: XR HIP 2-3 VIEWS W/PELVIS UNILATERAL LEFT REASON FOR STUDY: pt c/o LT hip pain after falling in her driveway [employer] TRA[employer]. no hx of surgery TECHNIQUE: 2 radiographic views of the left hip with AP pelvis. COMPARISON: None FINDINGS: No acute fracture or dislocation. 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 The soft tissues are unremarkable. THIS IS AN ELECTRONICALLY VERIFIED FINAL REPORT 01/09/2025 1:36 PM - Electronically signed by Aryan Palm M.D. 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 no hx of surgery TECHNIQUE: 2 radiographic views of the left hip with AP pelvis. COMPARISON: None FINDINGS: No acute fracture or dislocation. 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 The soft tissues are unremarkable. THIS IS AN ELECTRONICALLY VERIFIED FINAL REPORT 01/09/2025 1:36 PM - Electronically signed by Aryan Palm M.D. KR: MARIJA Report ID: [id number] Reading Location: [id number] IMPRESSION: No acute osseous abnormality. Zina Ferris APRN, INCLUSION INTERN IMG DIAGNOSTIC ORD ERABLES Final Result * XR ELBOW MINIMUM 3 VIEWS LEFT (01/09/2025 11:48 AM CDT) Anatomical Region Laterality Modality UPPER EXTREMITY, elbow Left Digital R adiography 01/09/2025 12:0 0 PM CDT Impressions 01/09/2025 12:03 PM CDT IMPRESSION: Mildly displaced comminuted left radial head and neck fracture. Osseous fragment noted in the left antecubital fossa, which is indeterminate in etiology and may represent an avulsion type fracture. Joint effusion involving the left elbow, which is likely posttraumatic. 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 COMPARISON: 11/15/2022 FINDINGS: There is a mildly displaced comminuted fracture involving the posterolateral aspect of the left radial head and neck. There is an osseous fragment noted in the left antecubital fossa, which is indeterminate in etiology and may represent an avulsion type fracture. There is a joint effusion involving the left elbow, which is likely posttraumatic. There are postsurgical changes noted involving the proximal left humerus with fixation plate and screws. There are degenerative changes of the left shoulder and elbow. THIS IS AN ELECTRONICALLY VERIFIED FINAL REPORT 01/09/2025 12:00 PM - Electronically signed by Jovana Omer D.O. PS: PS Report ID: [id number] Reading Location: [id number] Procedure Note Jovana Omer DO - 01/09/2025 EXAM DESCRIPTION: XR HUMERUS LEFT; XR ELBOW MINIMUM 3 VIEWS LEFT REASON FOR STUDY: pt c/o LT upper arm and elbow pain after falling in her driveway [employer] TRA[employer]ER. 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 COMPARISON: 11/15/2022 FINDINGS: There is a mildly displaced comminuted fracture involving the posterolateral aspect of the left radial head and neck. There is an osseous fragment noted in the left antecubital fossa, which is indeterminate in etiology and may represent an avulsion type fracture. There is a joint effusion involving the left elbow, which is likely posttraumatic. There are postsurgical changes noted involving the proximal left humerus with fixation plate and screws. There are degenerative changes of the left shoulder and elbow. THIS IS AN ELECTRONICALLY VERIFIED FINAL REPORT 01/09/2025 12:00 PM - Electronically signed by Jovana Omer D.O. PS: PS Report ID: [id number] Reading Location: [id number] IMPRESSION: Mildly displaced comminuted left radial head and neck fracture. Osseous fragment noted in the left antecubital fossa, which is indeterminate in etiology and may represent an avulsion type fracture. Joint effusion involving the left elbow, which is likely posttraumatic. Zina Ferris APRN, INCLUSION INTERN IMG DIAGNOSTIC ORD ERABLES Final Result * XR HUMERUS LEFT (01/09/2025 11:47 AM CDT) Anatomical Region Laterality Modality UPPER EXTREMITY, Humerus, arm Left Di gital Radiography 01/09/2025 12:0 0 PM CDT Impressions 01/09/2025 12:03 PM CDT IMPRESSION: Mildly displaced comminuted left radial head and neck fracture. Osseous fragment noted in the left antecubital fossa, which is indeterminate in etiology and may represent an avulsion type fracture. Joint effusion involving the left elbow, which is likely posttraumatic. 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 COMPARISON: 11/15/2022 FINDINGS: There is a mildly displaced comminuted fracture involving the posterolateral aspect of the left radial head and neck. There is an osseous fragment noted in the left antecubital fossa, which is indeterminate in etiology and may represent an avulsion type fracture. There is a joint effusion involving the left elbow, which is likely posttraumatic. There are postsurgical changes noted involving the proximal left humerus with fixation plate and screws. There are degenerative changes of the left shoulder and elbow. THIS IS AN ELECTRONICALLY VERIFIED FINAL REPORT 01/09/2025 12:00 PM - Electronically signed by Jovana Omer D.O. 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 COMPARISON: 11/15/2022 FINDINGS: There is a mildly displaced comminuted fracture involving the posterolateral aspect of the left radial head and neck. There is an osseous fragment noted in the left antecubital fossa, which is indeterminate in etiology and may represent an avulsion type fracture. There is a joint effusion involving the left elbow, which is likely posttraumatic. There are postsurgical changes noted involving the proximal left humerus with fixation plate and screws. There are degenerative changes of the left shoulder and elbow. THIS IS AN ELECTRONICALLY VERIFIED FINAL REPORT 01/09/2025 12:00 PM - Electronically signed by Jovana Omer D.O. PS: PS Report ID: [id number] Reading Location: [id number] IMPRESSION: Mildly displaced comminuted left radial head and neck fracture. Osseous fragment noted in the left antecubital fossa, which is indeterminate in etiology and may represent an avulsion type fracture. Joint effusion involving the left elbow, which is likely posttraumatic. Zina Ferris APRN, PRANAV IMG DIAGNOSTIC ORD ERABLES Final Result * Laceration Repair (11/29/2024 2:56 PM CDT) Narrative Olaf Castellano DO - 11/29/2024 2:56 PM CDT Olaf Castellano DO 11/29/2024 3:40 PM Laceration Repair Performed by: Olaf Castellano DO Authorized by: Olaf Castellano DO Consent: Consent obtained: Verbal Consent given by: Patient Risks, benefits, and alternatives were discussed: yes Risks discussed: Infection, need for additional repair, nerve damage, vascular damage, tendon damage, retained foreign body, pain, poor cosmetic result and poor wound healing Alternatives discussed: No treatment, delayed treatment, observation and referral [place] protocol: Procedure explained and questions answered to patient or proxy's satisfaction: yes Relevant documents present and verified: yes Test results available: yes Imaging studies available: yes Required blood products, implants, devices, and special equipment available: yes Immediately prior to procedure, a time out was called: yes Patient identity confirmed: Verbally with patient and arm band Anesthesia: Anesthesia method: Local infiltration Local anesthetic: Lidocaine 1% w/o epi Laceration details: Location: Face Face location: Nose Length (cm): 1 Pre-procedure details: Preparation: Patient was prepped and draped in usual sterile fashion and imaging obtained to evaluate for foreign bodies Exploration: Imaging outcome: foreign body not noted Wound exploration: wound explored through full range of motion and entire depth of wound visualized Treatment: Area cleansed with: Saline Amount of cleaning: Standard Irrigation solution: Sterile saline Irrigation volume: 1 L Irrigation method: Syringe Visualized foreign bodies/material removed: no Debridement: None Undermining: None Scar revision: no Skin repair: Repair method: Sutures Suture size: 5-0 Suture material: Nylon Suture technique: Simple interrupted Number of sutures: 3 Approximation: Approximation: Close Repair type: Repair type: Simple Post-procedure details: Dressing: Antibiotic ointment Procedure completion: Tolerated well, no immediate complications us Olaf Castellano DO PROCEDURE/MINOR SURGICA L ORDERABLES Final Result * XR HAND 3 OR MORE VIEWS RIGHT (10/30/2024 11:57 AM CDT) Anatomical Region Laterality Modality UPPER EXTREMITY, hand Right Digital Ra diography 11/04/2024 1:34 PM CDT Impressions 11/04/2024 1:37 PM CDT IMPRESSION: No acute osseous abnormality of the right hand. Arthritic change most pronounced at the first carpometacarpal joint. Narrative 11/04/2024 1:37 PM CDT EXAM DESCRIPTION: XR HAND 3 OR MORE VIEWS RIGHT REASON FOR STUDY: Fall Aug 2024, Pain to thumb with lump anterior thumb, tingling and numbness TECHNIQUE: Three views right hand. COMPARISON: None. FINDINGS: There is arthritic change of the right hand most pronounced at the first carpometacarpal joint with mild subluxation. There is subchondral sclerosis. There is an ossific density in the soft tissues may be a detached osteophyte. No erosion or aggressive osseous lesion. THIS IS AN ELECTRONICALLY VERIFIED FINAL REPORT 11/04/2024 1:34 PM - Electronically signed by Luis Lopes M.D. CH: TRINIDAD Report ID: [id number] Reading Location: [id number] Procedure Note Luis Lopes Jr., MD - 11/04/2024 EXAM DESCRIPTION: XR HAND 3 OR MORE VIEWS RIGHT REASON FOR STUDY: Fall Aug 2024, Pain to thumb with lump anterior thumb, tingling and numbness TECHNIQUE: Three views right hand. COMPARISON: None. FINDINGS: There is arthritic change of the right hand most pronounced at the first carpometacarpal joint with mild subluxation. There is subchondral sclerosis. There is an ossific density in the soft tissues may be a detached osteophyte. No erosion or aggressive osseous lesion. THIS IS AN ELECTRONICALLY VERIFIED FINAL REPORT 11/04/2024 1:34 PM - Electronically signed by Luis Lopes M.D. CH: Report ID: [id number] Reading Location: [id number] IMPRESSION: No acute osseous abnormality of the right hand. Arthritic change most pronounced at the first carpometacarpal joint. [facility] Coretta Tristan [facility] IMG DIAGNOSTIC OR DERABLES Final Result * EKG 12 LEAD (10/30/2024 11:35 AM CDT) Ventricular Rate 80 BPM EXTERNAL EKG Atrial Rate 80 BPM EXTERNAL EKG P-R Interval 112 ms EXTERNAL EKG QRS Duration 76 ms EXTERNAL EKG Q-T Duration 376 ms EXTERNAL EKG QTC CALCULATION 433 ms EXTERNAL EKG P [place] 24 degrees EXTERNAL EKG R [place] 1 degrees EXTERNAL EKG T [place] 57 degrees EXTERNAL EKG 10/30/2024 11:3 5 AM CDT Impressions EXTERNAL EKG - 11/01/2024 11:41 AM CDT Normal sinus rhythm Normal ECG When compared with ECG of 28-NOV-2023 09:58, No significant change was found Confirmed by GUNJAN SALMERON ([id number]) on 11/01/2024 11:41:08 AM Narrative Procedure Note Gunjan Salmeron MD - 11/01/2024 IMPRESSION: Normal sinus rhythm Normal ECG When compared with ECG of 28-NOV-2023 09:58, No significant change was found Confirmed by GUNJAN SALMERON ([id number]) on 11/01/2024 11:41:08 AM Kori Hudson PAC IMG ECG ORDERABLE S Final Result Performing Organization Address [facility] Co de Phone Number EXTERNAL EKG * HEMOGLOBIN A1C W/ ESTIMATED GLUCOSE (10/30/2024 11:28 AM CDT) HGB-A1C 5.3 4.0 - 6.0 % 10/30/2024 1:06 PM CDT [facility] Est Average Glucose 105.4 mg/dL 10/30/2024 1:06 PM CDT [facility] Blood Venipuncture / Unknown 10/30/2024 11:28 AM CDT 10/30/2024 12:26 PM CDT Narrative [facility] - 10/30/2024 1:06 PM CDT HEMOGLOBIN A1C: DIABETIC PATIENTS: WELL-CONTROLLED: 6.2 - 7.0 INTERMEDIATE WELL-CONTROLLED: 7.0 - 9.0 POORLY-CONTROLLED: >9.0 Specimens containing greater than 5% of Hemoglobin F may result in lower than expected % HbA1C results. Kori Hudson PAC CHEMISTRY ORDERAB LES Final Result Performing Organization Address [facility] de Phone Number [facility] [address] [place] [address] * CBC WITH AUTO DIFFERENTIAL (10/30/2024 11:28 AM CDT) WBC 6.78 4.00 - 12.00 10(3)/mcL 10/30/2024 12:35 PM CDT [facility] RBC 4.48 3.80 - 5.30 10(6)/mcL 10/30/2024 12:35 PM CDT [facility] HEMOGLOBIN (HGB) 13.6 12.0 - 15.8 g/dL 10/30/2024 12:35 PM CDT [facility] HEMATOCRIT (HCT) 42.3 36.0 - 47.0 % 10/30/2024 12:35 PM CDT [facility] MCV 94.4 82.0 - 96.0 fL 10/30/2024 12:35 PM CDT [facility] MCH 30.4 26.0 - 34.0 pg 10/30/2024 12:35 PM CDT [facility] MCHC 32.2 31.0 - 36.0 g/dL 10/30/2024 12:35 PM CDT [facility] PLATELET COUNT 266 140 - 440 10(3)/mcL 10/30/2024 12:35 PM CDT [facility] RDW 13.3 11.8 - 15.5 % 10/30/2024 12:35 PM CDT [facility] MPV 10.0 9.7 - 12.4 fL 10/30/2024 12:35 PM CDT [facility] NEUTROPHILS 62.4 47.0 - 73.0 % 10/30/2024 12:35 PM CDT [facility] LYMPHOCYTES 20.1 18.0 - 42.0 % 10/30/2024 12:35 PM CDT [facility] MONOCYTES 11.8 4.0 - 12.0 % 10/30/2024 12:35 PM CDT [facility] EOSINOPHILS 5.0 0.0 - 5.0 % 10/30/2024 12:35 PM CDT [facility] BASOPHILS 0.7 0.0 - 1.0 % 10/30/2024 12:35 PM CDT [facility] ABSOLUTE NEUTROPHILS 4.23 1.60 - 7.70 10(3)/mcL 10/30/2024 12:35 PM CDT [facility] ABSOLUTE LYMPHOCYTES 1.36 1.30 - 3.20 10(3)/mcL 10/30/2024 12:35 PM CDT [facility] ABSOLUTE MONOCYTES 0.80 0.20 - 1.00 10(3)/mcL 10/30/2024 12:35 PM CDT [facility] ABSOLUTE EOSINOPHIL 0.34 0.00 - 0.40 10(3)/mcL 10/30/2024 12:35 PM CDT [facility] ABSOLUTE BASOPHILS 0.05 0.00 - 0.10 10(3)/mcL 10/30/2024 12:35 PM CDT [facility] NRBC PER 100 WBC 0 10/31/19 12:35 PM CDT [facility] Blood Venipuncture / Unknown 10/30/2024 11:28 AM CDT 10/30/2024 12:26 PM CDT Kori Hudson PAC HEMATOLOGY ORDERA BLES Final Result [facility] [address] [place] [address] * (ABNORMAL) CMP (COMPREHENSIVE METABOLIC PANEL) (10/30/2024 11:28 AM CDT) SODIUM 142 136 - 145 mmol/L 10/30/2024 1:35 PM CDT [facility] POTASSIUM 4.0 3.5 - 5.1 mmol/L 10/30/2024 1:35 PM CDT [facility] CHLORIDE 108(H) 98 - 107 mmol/L 10/30/2024 1:35 PM CDT [facility] CO2, VENOUS 24 22 - 30 mmol/L 10/30/2024 1:35 PM CDT [facility] ANION GAP 14.0 <18.0 mmol/L 10/30/2024 1:35 PM CDT [facility] GLUCOSE 87 70 - 99 mg/dL 10/30/2024 1:35 PM CDT [facility] BUN 18 10 - 20 mg/dL 10/30/2024 1:35 PM CDT [facility] CREATININE, BLOOD 0.77 0.60 - 1.00 mg/dL 10/30/2024 1:35 PM CDT [facility] BUN/CREATININE RATIO 23(H) 12 - 20 ratio 10/30/2024 1:35 PM CDT [facility] TOTAL PROTEIN 7.2 6.0 - 8.0 g/dL 10/30/2024 1:35 PM T [facility] ALBUMIN 4.3 3.5 - 5.0 g/dL 10/30/2024 1:35 PM T [facility] A/G RATIO 1.5 1.0 - 2.2 10/30/2024 1:35 PM T [facility] CALCIUM 9.2 8.7 - 10.5 mg/dL 10/30/2024 1:35 PM [facility] T BILI 0.7 0.2 - 1.2 mg/dL 10/30/2024 1:35 PM T [facility] SGOT (AST) 25 <43 U/L 10/30/2024 1:35 PM T [facility] SGPT (ALT) 26 <56 U/L 10/30/2024 1:35 PM [facility] ALKALINE PHOSPHATASE 110 40 - 150 U/L 10/30/2024 1:35 PM [facility] IS THE PATIENT REQUIRED TO BE FASTING? No 10/30/2024 1:35 PM T [facility] GFR, ESTIMATED >60 >=60 10/30/2024 1:35 PM T [facility] Comment: Creatinine Clearance is the preferred criteria for selecting drug dose adjustments in renally impaired patients. The GFR is provided as additional pertinent clinical information. GFR is reported in mL/min/1.73 sq m. Calculation based on the Chronic Kidney Disease Epidemiology Collaboration (CKD- EPI) equation refit without adjustment for race. GFR, EST. >60 >=60 025 1:35 PM T [facility] GFR, EST. NONAFRICAN >60 >=60 10/30/2024 1:35 PM [facility] Blood Venipuncture / Unknown 10/30/2024 11:28 AM CDT 10/30/2024 12:26 PM CDT us Kori Hudson PAC CHEMISTRY ORDERAB LES Final Result Performing Organization Address City/State/[facility] Co de Phone Number 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) 07/30/2024 us Provider Scan IMG DEXA ORDERABLES Final Result Performing Organization Address City/[facility]/ZIP Co de Phone Number SCAN from Last 3 Months or Most Recently Relevant to Health Maintenance Additional Health Concerns Active Problems Noted Date Diagnosed Date Fall Risk (Fall Risk) 09/13/2023 Insurance [facility] MEDICARE C HUMANA PA TPL Advance Directives Documents on File Type Date Recorded Patient Medical Insurance Claims Specialist Expl anation Power of Mobile Heavy Equipment Operator for Health Care 01/19/2025 3:50 PM POA HC 11/21/2022 Power of Mobile Heavy Equipment Operator for Health Care 11/03/2024 5:21 PM POA HC 11/21/2022 * Full Code (Latest Code Status on File) Date Activated Date Inactivated Comments 01/16/2025 12:46 PM * Full Code Date Activated Date Inactivated Comments 10/31/2024 12:16 PM 01/16/2025 12:46 PM * Full Code Date Activated Date Inactivated Comments 11/28/2022 1:24 PM 12/15/2022 8:38 AM Healthcare Agents on File Name Relationship Healthcare Agent Relationshi p Communication Florencio Lockwood Spouse Healthcare POA Care Teams Scrubber Operator Relationship Specialty Start Date End Date Emmett Carrizales MD [address] [place] [address] PCP - General Internal Medicine 11/29/24 Emmett Carrizales MD [address] [place] [address] Internal Medicine 11/29/24 Karolyn Tobar, RN [place] Nurse Owner Manager 06/07/23 Ifrah Whitfield APRN, INCLUSION INTERN #[address] [address] Nurse Practitioner Advanced Practice Nurse 03/06/22
--- OUTSIDE RECORDS SUMMARY | 2025-01-19 16:21 | XMS_ITS | Encounter Summary ---
Author Organization [facility] Address [address] [place] [address] Phone Care Team Providers Care Training Program Developer Name Role Phone Emmett Carrizales MD Primary Care Provider [phone] Emmett Carrizales MD Unavailable [phone] Karolyn Tobar RN Unavailable Unavailable Ifrah Whitfield APRN, PRNAAV Unavailable [phone] Reason for Visit * Auth/Cert (Routine) Specialty Diagnoses / Procedures Referred By Contac t Referred To Contact Referral ID Status Reason Start Date Expiration Date Visits Re quested Visits Authorized [id number] 1 Encounter Details Date Type Department Care Team (Late st Contact Info) Description 01/19/2025 9:30 AM CDT [facility] [address] [place] [address] Caren Dover, PT PT - INITIAL EVALUATION Social History Tobacco Use Types Packs/Day Years Used Date Smoking Tobacco: Never Passive Smoke Exposure: Never Smokeless Tobacco: Never Alcohol Use Standard Drinks/Week Comments Not Currently 0 (1 standard drink = 0.6 oz pur e alcohol) [facility] Utilities Answer Date Recorded In [...] Never 10/06/2024 How often do you attend mosque or congregation serv ices? Never 10/06/2024 Do you belong to any clubs o r organizations such as mosque groups, unions, fraternal or athletic groups, or [...] Total Score - Questions 1-9 0 09/14 [facility] of Occupat ional Health - Occupational Stress [...] on file documented as of this encounter Last Filed Vital Signs Vital Sign Reading Time Taken Comments Blood Pressure 148/85 01/19/2025 9:45 AM CDT Pulse 90 01/19/2025 9:45 AM CDT Temperature 36.6 C (97.8 F) 01/19/2025 9:45 AM CDT Respiratory Rate 16 01/19/2025 9:45 AM CDT Oxygen Saturation 96% 01/19/2025 9:45 AM CDT Inhaled Oxygen Concentration - - Weight - - Height - - Body Mass Index - - documented in this encounter Plan of Treatment Upcoming Encounters Date Type Department Care Team (Late st Contact Info) Description 01/20/2025 1:00 AM CDT Home Care Visit [address] [address] Pat Abdullahi OT 01/22/2025 1:00 AM CDT Home Care Visit [address] [address] Nata Casas RN [place] 01/26/2025 1:00 PM CDT Clinical Support [facility] Oncology Services [address] [place] [address] Discharge Disposition: Discharged to home or Selfcare 01/27/2025 1:00 AM CDT Home Care Visit [address] [address] Gayatri Rubio, OPS ANALYST 01/29/2025 1:00 AM CDT Home Care Visit [address] [address] Gayatri Rubio, OPS ANALYST 02/02/2025 1:00 AM CDT Home Care Visit [address] [address] Gayatri Rubio, OPS ANALYST 02/04/2025 1:00 AM CDT Home Care Visit [address] [address] Gayatri Rubio, OPS ANALYST 02/09/2025 1:00 AM CDT Home Care Visit [address] [address] Caren Dover, PT 02/25/2025 11:30 AM CDT Office Visit [facility] - Internal Medicine - [place] [address] [place] [phone] Emmett Carrizales MD [address] [place] [address] documented as of this encounter Goals Goal [...] alert plan in case I fall - pickle cutter clutter from the floors - use a [...] modifications. Consider supplementation with Vitamin D. Notes: 2/1/24 reviewed fall prevention plan with patient today. [...] Depression Total Score: 0 10/06/19 4:14 PM WAREHOUSE MATERIAL HANDLER documented as of this encounter Home Health Visit - Actions and Narratives Narratives Pt had a fall in her drivewa y on 01/09/25 and [facility]. She was found to have a fracture of her L elbow. She follows up with ortho at [facility] on 01/26/25. She followed up with her PCP on 01/13/25 and HHC was ordered due to difficulty completing ADL's. She wears 2L O2 at nighttime for her CPAP machine. Pt reports that she falls frequently, especially outside. PMH : anxiety, bipolar disorder, sleep apnea, GERD, periodic limb movement disorder, hypertension, spinal stenosis, L humerus fracture, osteoporosis, L ankle fracture. documented in this encounter Care Teams Training Program Developer Relationship Specialty Start Date End Date Emmett Carrizales MD [address] [place] [address] PCP - General Internal Medicine 11/29/24 Emmett Carrizales MD [address] [place] [address] Internal Medicine 11/29/24 Karolyn Tobar, RN [place] Nurse Release And Technical Records Clerk 06/07/23 Ifrah Whitfield APRN, PAINT MIXER #[address] [address] Nurse Practitioner Advanced Practice Nurse 03/06/22 documented as of this encounter
--- OUTSIDE RECORDS SUMMARY | 2025-01-19 16:21 | XMS_ITS | Encounter Summary ---
Author Organization [facility] Address [address] [facility] [place] [address] Phone Care Team Providers Care Custom Feed Mill Operator Name Role Phone Emmett Carrizales MD Primary Care Provider [phone] Emmett Carrizales MD Primary Care Provider Emmett Carrizales MD Unavailable [phone] Karolyn Tobar RN Unavailable Unavailable Ifrah Whitfield APRN, CNP Unavailable Reason for Visit * Reason Comments Medication Refill Encounter Details Date Type Department Care Team (Late st Contact Info) Description 11/12/2023 [facility]ill [facility] Emergency [address] [place] [address] Emmett Carrizales MD [address] [place] [address] Medication Refill Social History Tobacco Use Types Packs/Day Years Used Date Smoking Tobacco: Never Passive Smoke Exposure: Never Smokeless Tobacco: Never Alcohol Use Standard Drinks/Week Comments Not Currently 0 (1 standard drink = 0.6 oz pur e alcohol) [facility] Utilities Answer Date Recorded In [...] often do you attend chur ch or oriental orthodox services? Never 09/13/2023 Do you belong to any clubs o r organizations such as anglican groups, unions, fraternal or athletic groups, or [...] Total Score - Questions 1-9 0 08/2023 [facility] of Occupat ional Health - Occupational Stress [...] Miscellaneous Notes * Telephone Encounter - Shabnam Malave, RN - 11/12/2023 2:31 PM CDT Per [...] 01/20/2025 1:00 AM CDT Home Care Visit [address] [address] Pat Abdullahi OT 01/22/2025 1:00 AM CDT Home Care Visit [address] [address] Nata Casas RN [place] 01/26/2025 1:00 PM CDT Clinical Support [facility] Oncology Services [address] [place] [address] Discharge Disposition: Discharged to home or Selfcare 01/27/2025 1:00 AM CDT Home Care Visit [address] [address] Gayatri Rubio, DENTAL INTERN 01/29/2025 1:00 AM CDT Home Care Visit [address] [address] Gayatri Rubio, DENTAL INTERN 02/02/2025 1:00 AM CDT Home Care Visit [address] [address] Gayatri Rubio, DENTAL INTERN 02/04/2025 1:00 AM CDT Home Care Visit [address] [address] Gayatri Rubio, DENTAL INTERN 02/09/2025 1:00 AM CDT Home Care Visit [address] [address] Caren Dover, PT 02/25/2025 11:30 AM CDT Office Visit [facility] - Internal Medicine - [place] [address] [place] [id number] Emmett Carrizales MD [address] [place] [address] documented as of this encounter Goals Goal [...] alert plan in case I fall - cook pickled meat clutter from the floors - use a [...] Total Score: 0 09/13/19 24 1:30 PM BLAST FURNACE AUXILIARIES SUPERVISOR documented as of this encounter Care Teams Custom Feed Mill Operator Relationship Specialty Start Date End Date Emmett Carrizales MD [address] [place] [address] PCP - General Internal Medicine 06/29/15 11/28/24 Emmett Carrizales MD [address] [place] [address] PCP - General Internal Medicine 11/29/24 Emmett Carrizales MD [address] [place] [address] Internal Medicine 11/29/24 Karolyn Tobar, RN [place] Nurse Sign Erector 06/07/23 Ifrah Whitfield APRN, CONCRETE MIXER LOADER TRUCK MOUNTED #[address] [address] Nurse Practitioner Advanced Practice Nurse 03/06/22 documented as of this encounter
--- OUTSIDE RECORDS SUMMARY | 2025-01-19 16:21 | XMS_ITS | Encounter Summary ---
Author Organization [facility] Address [address] [facility] [place] [address] Phone Care Team Providers Care Emergency Crew Supervisor Name Role Phone Emmett Carrizales MD Primary Care Provider [phone] Emmett Carrizales MD Primary Care Provider [phone] Emmett Carrizales MD Unavailable Karolyn Tobar RN Unavailable Unavailable Ifrah Whitfield APRN, PRANAV Unavailable [phone] Reason for Visit * Reason Comments Medication Refill Encounter Details Date Type Department Care Team (Late st Contact Info) Description 10/15/2023 Refill [facility] - [place] [address] [place] [address] Kori Hudson, MARTÍN [address] [place] [address] Medication Refill Social History Tobacco Use Types Packs/Day Years Used Date Smoking Tobacco: Never Passive Smoke Exposure: Never Smokeless Tobacco: Never Alcohol Use Standard Drinks/Week Comments Not Currently 0 (1 standard drink = 0.6 oz pur e alcohol) [facility] Utilities Answer Date Recorded In the past [...] often do you attend chur ch or caodaism services? Never 09/13/2023 Do you belong to any clubs o r organizations such as latter-day groups, unions, fraternal or athletic groups, or [...] Total Score - Questions 1-9 0 08/2023 [facility] [place] of Occupat ional Health - Occupational Stress [...] place to sleep or slept in a fdc (including now)? No 09/13/2023 Education Answer Date [...] PM CST Medication(s) refilled and signed per [facility] Chronic [...] Dept 10/11/23 Office Visit Emmett Carrizales MD [facility] [place] 07/12/23 Office Visit Emmett Carrizales MD [facility] [place] 06/07/23 Office Visit Emmett Carrizales MD [facility] [place] 05/22/23 Office Visit Kori Hudson, [facility] [place] 04/11/23 Office Visit Emmett Carrizales MD [facility] [place] Showing recent visits within past 270 days and meeting all other requirements Future Appointments Date Type Provider Dept 01/09/24 Appointment Emmett Carrizales MD [facility] [place] Showing future appointments within next 90 days and meeting all other requirements Passed - Blood pressure on record in past 12 months Clinician-entered: BP Readings from Last 3 Encounters: 10/11/23 126/72 07/12/23 122/70 06/07/23 122/70 Patient-entered: No data recorded OPERATOR APPRENTICE documented in this encounter Plan of Treatment Upcoming Encounters Date Type Department Care Team (Late st Contact Info) Description 01/20/2025 1:00 AM CDT Home Care Visit [address] [address] Pat Abdullahi OT 01/22/2025 1:00 AM CDT Home Care Visit [address] [address] Nata Casas RN [place] 01/26/2025 1:00 PM CDT Clinical Support [facility] On[facility] Services [address] [place] [address] Discharge Disposition: Discharged to home or Selfcare 01/27/2025 1:00 AM CDT Home Care Visit [address] [address] Gayatri Rubio, CLASSIFIED ADVERTISING SUPERVISOR 01/29/2025 1:00 AM CDT [facility] [address] [place] [address] Gayatri Rubio, CLASSIFIED ADVERTISING SUPERVISOR 02/02/2025 1:00 AM CDT Home Care Visit [address] [address] Gayatri Rubio, CLASSIFIED ADVERTISING SUPERVISOR 02/04/2025 1:00 AM CDT Home Care Visit [address] [address] Gayatri Rubio, CLASSIFIED ADVERTISING SUPERVISOR 02/09/2025 1:00 AM CDT Home Care Visit [address] [address] Caren Dover, PT 02/25/2025 11:30 AM CDT Office Visit [facility] - Internal Medicine - [place] [address] [place] [address] Emmett Carrizales MD [address] [place] [address] documented as of this encounter Goals Goal [...] Total Score: 0 09/13/19 24 1:30 PM LOOM OPERATOR APPRENTICE documented as of this encounter Care Teams Emergency Crew Supervisor Relationship Specialty Start Date End Date Emmett Carrizales MD [address] [place] [address] PCP - General Internal Medicine 06/29/15 11/28/24 Emmett Carrizales MD [address] [place] [address] PCP - General Internal Medicine 11/29/24 Emmett Carrizales MD [address] [place] [address] Internal Medicine 11/29/24 Karolyn Tobar, RN [place] Nurse Research Quality Assurance Specialist 06/07/23 Ifrah Whitfield APRN, FILLER SHAKER #[address] [address] Nurse Practitioner Advanced Practice Nurse 03/06/22 documented as of this encounter
--- OUTSIDE RECORDS SUMMARY | 2025-01-19 16:21 | XMS_ITS | Encounter Summary ---
Author Organization [facility] Address [address] [facility] [place] [address] Phone Care Team Providers Care Research Librarian Name Role Phone Emmett Carrizales MD Primary Care Provider [phone] Emmett Carrizales MD Primary Care Provider [phone] Emmett Carrizales MD Unavailable Karolyn Tobar RN Unavailable Unavailable Karolyn Tobar RN Unavailable Unavailable Ifrah Whitfield APRN, CNP Unavailable [phone]- [phone] Reason for Visit * Reason Comments Medication Refill Encounter Details Date Type Department Care Team (Late st Contact Info) Description 01/11/2021 Refill [facility] - [place] [address] [place] [address] Emmett Carrizales MD [address] [place] [address] Medication Refill Social History Tobacco [...] 01/20/2025 1:00 AM CDT Home Care Visit [address] [address] Pat Abdullahi OT 01/22/2025 1:00 AM CDT Home Care Visit [address] [address] Nata Casas RN [place] 01/26/2025 1:00 PM CDT Clinical Support [facility] Oncology Services [address] [place] [address] Discharge Disposition: Discharged to home or Selfcare 01/27/2025 1:00 AM CDT Home Care Visit [address] [address] Gayatri Rubio, CASTING MACHINE SET UP OPERATOR 01/29/2025 1:00 AM CDT Home Care Visit [address] [address] Gayatri Rubio, CASTING MACHINE SET UP OPERATOR 02/02/2025 1:00 AM CDT Home Care Visit [address] [address] Gayatri Rubio, CASTING MACHINE SET UP OPERATOR 02/04/2025 1:00 AM CD[facility] [address] [place] [address] Gayatri Rubio, CASTING MACHINE SET UP OPERATOR 02/09/2025 1:00 AM CDT [facility] [address] [place] [address] Caren Dover, PT 02/25/2025 11:30 AM CDT Office Visit [facility] [address] [place] [address] Emmett Carrizales MD [address] [place] [address] documented as of this encounter Visit Diagnoses Not on filedocumented in this encounter Additional Health Concerns Infection Onset Date Last Indicated Resolved Time COVID - 19 02/21/2022 02/21/2022 03/03/2022 12:1 6 AM CDT documented as of this encounter Care Teams Research Librarian Relationship Specialty Start Date End Date Emmett Carrizales MD [address] [place] [address] PCP - General Internal Medicine 06/29/15 11/28/24 Emmett Carrizales MD [address] [place] [address] PCP - General Internal Medicine 11/29/24 Emmett Carrizales MD [address] [place] [address] Internal Medicine 11/29/24 Karolyn Tobar, RN [place] Mail Order Clerk 06/07/23 09/12/23 Karolyn Tobar, RN [place] Nurse Mail Order Clerk 06/07/23 Ifrah Whitfield APRN, LEAD MANUFACTURING TECHNICIAN #[address] [address] Nurse Practitioner Advanced Practice Nurse 03/06/22 documented as of this encounter
--- OUTSIDE RECORDS SUMMARY | 2025-01-19 16:21 | XMS_ITS | Clinical Summary ---
[facility] Organization [facility] Address [address] [place] [address] Care Team Providers Care Economic Geographer Name Role Phone Emmett Carrizales MD Primary Care Provider +1- [phone] Allergies Active Allergy Reactions Criticality Noted Date [...] LEVOTHROID) 88 mcg tabletIndications :hypothyroidism 100 mcg early learning teacher before breakfast 1 8 Active prednisoLONE acetate [...] Malocclusion 07/20/2021 Nasal turbinate hypertrophy 07/20/2021 Temporomandibular joczl-olew-wzoylyokgwc syndrom e 07/20/2021 Mixed irritable bowel syndrome 07/20/2021 Other fatigue 06/01/2021 Incontinence of feces 12/29/2020 History of colonic polyps 10/25/2020 Overview (10/25/2020): Added automatically from request for surgery [id number] Encounter for screening colonoscopy 10/25/2020 Overview (10/25/2020): Added automatically from request for surgery [id number] BMI 30.0-30.9,adult 03/11/2020 Class 1 obesity due to exces s calories without serious comorbidity with body mass index (BMI) of 30.0 to 30.9 in adult 03/11/2020 Gastroesophageal reflux disease 09/11/2019 Overview (09/11/2019): Added automatically from request for surgery [id number] Assessment & Plan (03/11/2020 9:25 AM CDT): Doing well on pantoprazole daily. Says she does get breakthrough symptoms occasionally (maybe one weekly) but overall doing well. Continue pantoprazole daily. May use TUMS prn breakthrough symptoms. Continue to follow GERD diet. Assessment & Plan (09/16/2019 4:46 PM TELEGRAPH OFFICE TELEPHONE CLERK): Schedule EGD for further evaluation. Start Protonix daily instead of Pepcid. Follow-up in 6 months. Also discussed with the patient gastroesophageal reflux disease diet. Irritable bowel syndrome with diarrhea 9 Assessment & Plan (03/11/2020 9:24 AM CDT): Pt doing well on dicyclomine TID. She is having two normal BM's daily on this medication. Continue this medication. Assessment & Plan (09/16/2019 4:46 PM TELEGRAPH OFFICE TELEPHONE CLERK): Overall her symptoms has improved and less diarrhea with Bentyl twice daily. Will continue to follow on the pattern for symptoms. Assessment & Plan (08/22/2018 12:26 PM TELEGRAPH OFFICE TELEPHONE CLERK): Doing well with Dicyclomine Adult attention deficit [...] Date Type Department Care Team Description 01/09/2025 10:16 AM CDT - 01/09/2025 11:59 PM CDT Hospital Encounter [facility] Emergency, Room R Discharge Disposition: Discharge to home or self care 01/09/2025 Ancillary Procedure [facility] 01/09/2025 Telephone [facility] [address] [place] [address] [address] [place] [address] Rashid Wallace MD 12/23/2024 Telephone [facility] [address] [place] [address] [address] [place] [address] Sharif Krueger PA 12/23/2024 Orders Only [facility] [address] [place] [address] [address] [place] [address] Sharif Krueger PA 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); Thenar atrophy, right 12/19/2024 9:30 AM CDT Office Visit [facility] [address] [place] [address] [address] [place] [address] Sharif Krueger PA 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); Thenar atrophy, right 12/19/2024 7:55 AM CDT - 12/19/2024 11:59 PM CDT Hospital Encounter [facility] [address] [place] [address] [address] [place] [address] Discharge Disposition: Discharge to home or self care 11/13/2024 Telephone [facility] [address] [place] [address] [address] [place] [address] Sharif Krueger PA from Last 3 Months Immunizations Immunization Administration [...] History Surgery Date Site/Laterality Comments TOE SURGERY Left big next toe, pinky CHOLECYSTECTOMY 08/13/1999 [...] on file Legal Sex Female 12:20 AM TELEGRAPH OFFICE TELEPHONE CLERK Gender Identity Not on file Sexual Orientation [...] 12/19/2024 9:42 AM CDT Plan of Treatment Health Maintenance Due Date Last Done Comments Breast Cancer Screening-Mammogram 1950 Hepatitis C Screening 1950 Osteoporosis Screening-Bone Density Scan 1950 Hepatitis B Screening 1970 Well Visit 65+ 2017 Depression Screening 09/11/2020 09/11/2019, 09/11/19 20 Fall Risk Assessment 08/18/2022 08/18/2021, 09/11/19 20 Covid-19 Vaccine (2023-2 5 season) 2024 03/23/2021, 11/18/2020, 10/19/2020 Influenza Vaccine (Season Ended) 2025 05/22/2023, 06/15/2022, 05/10/2022, Additional history exists Colon Cancer Screening-Colonoscopy 12/01/2030 12/01/2020, 10/08/2015, 10/08/2015 DTaP/Tdap/Td Vaccine (3 - Td or Tdap) 11/29/2034 11/29/2024, 08/08/2021 Colon Cancer Screening-CT Colonography Discontinued 12/01/2020, [...] Mcgarry MD - 12/01/2020 12:44 PM CDT [facility] Patient Name: Lana Darby Procedure Date: 12/01/2020 12:44 PM Date of : 1950 Admit Type: Outpatient Age: 70 Gender: Female Attending MD: Sierra Mcgarry M.D. Room: [facility] ENDOSCOPY ROOM 1 Note Status: Finalized Patient Profile: This is a 70 year old female. No family history of colon cancer. History of polyps in the past. Alsohas issues with chronic diarrhea. Procedure: Colonoscopy Indications: High risk colon cancer surveillance: Personalhistory of colonic polyps, Last colonoscopy: September2015 Referring MD: Adan Pozo, F.N.P., Dion Kidd DO Providers: Sierra Mcgarry M.D. [...] under direct vision. The Pediatric Colonoscope PCF-H190L [id number] was introducedthrough the anus and advanced to [...] 12:44 PM Procedure Code(s): --- Professional --- 93162, Colonoscopy, flexible; with removal of tumor(s), polyp(s), or other lesion(s) by snare technique 74146, 59, Colonoscopy, flexible; with biopsy, single or multiple Diagnosis Code(s): --- Professional --- Z86.010, Personal history of colonic polyps K64.8, Other hemorrhoids K63.5, Polyp of colon K62.1, Rectal polyp CPT copyright 2019 [employer]. All rights reserved. The codes documented in this report are preliminary and upon supervisor inventory merchandising reviewmay be revised to meet current compliance requirements. Recognized by the [employer] for promoting quality in endoscopy Sierra Mcgarry MD ENDOSCOPY PROCEDURES Final Result from Last 3 Months or Most Recently Relevant to Health Maintenance Insurance [facility] MEDICARE HMO [email or web address] MEDICARE [place] [employer] MED[place] HMO Advance Directives For more information, please contact: [phone] * Full Code (Latest Code Status on File) Date Activated Date Inactivated Comments 12/01/2020 12:33 PM 12/01/2020 6:56 PM * Full Code Date Activated Date Inactivated Comments 10/29/2019 7:38 AM 10/29/2019 1:35 PM * Full Code Date Activated Date Inactivated Comments 10/29/2019 7:38 AM 10/29/2019 7:38 AM Care Teams Economic Geographer Relationship Specialty Start Date End Date Emmett Carrizales MD [address] [place] [address] PCP - General Internal Medicine 08/10/21
--- OUTSIDE RECORDS SUMMARY | 2025-01-19 16:22 | XMS_ITS | Encounter Summary ---
Author Organization [facility] Address [address] [facility] [place] [address] Phone Care Team Providers Care Greeter Name Role Phone Emmett Carrizales MD Primary Care Provider [phone]- [phone] Emmett Carrizales MD Primary Care Provider +1- [phone] Emmett Carrizales MD Unavailable Karolyn Tobar RN Unavailable Unavailable Karolyn Tobar RN Unavailable Unavailable Ifrah Whitfield APRN, CNP Unavailable +1- [phone] Reason for Visit * Reason Comments Medication Refill Encounter Details Date Type Department Care Team (Late st Contact Info) Description 02/14/2023 [facility]ill [facility] - [place] [address] [place] [address] Emmett Carrizales MD [address] [place] [address] Medication Refill Social History Tobacco [...] 12/21/22 Office Visit Emmett Carrizales MD [facility] 11/23/22 Office Visit Kori Hudson PAC [facility] 09/07/22 Office Visit Emmett Carrizales MD [facility] 08/16/22 Office Visit Emmett Carrizales MD [facility] 05/10/22 Office Visit Emmett Carrizales MD [facility] 02/21/22 Telemedicine Emmett Carrizales MD [facility] Showing recent visits within past 365 days and meeting all other requirements Future Appointments Date Type Provider Dept 04/11/23 Appointment Emmett Carrizales MD [facility] [place] Showing future appointments within next 90 days and meeting all other requirements documented in this encounter Plan of Treatment Upcoming Encounters Date Type Department Care Team (Late st Contact Info) Description 01/20/2025 1:00 AM CDT Home Care Visit [address] [address] Pat Abdullahi OT 01/22/2025 1:00 AM CDT Home Care Visit [address] [address] Nata Casas RN [place] 01/26/2025 1:00 PM CDT Clinical Support [facility] Oncology Services [address] [place] [address] Discharge Disposition: Discharged to home or Selfcare 01/27/2025 1:00 AM CDT Home Care Visit [address] [address] Gayatri Rubio, SENSOR SPECIALIST 01/29/2025 1:00 AM CDT Home Care Visit [address] [address] Gayatri Rubio, SENSOR SPECIALIST 02/02/2025 1:00 AM CDT Home Care Visit [address] [address] Gayatri Rubio, SENSOR SPECIALIST 02/04/2025 1:00 AM CDT Home Care Visit [address] [address] Gayatri Rubio, SENSOR SPECIALIST 02/09/2025 1:00 AM CDT Home Care Visit [address] [address] Caren [place], PT 02/25/2025 11:30 AM CDT [facility] [place] [address] [place] [address] Emmett Carrizales MD [address] [facility] [place] [address] documented as of this encounter Visit Diagnoses Not on filedocumented in this encounter Additional Health Concerns Assessment Noted Time PHQ-9 Depression Total Score: 0 06/01/20 21 3:00 PM CDT documented as of this encounter Care Teams Greeter Relationship Specialty Start Date End Date Emmett Carrizales MD [address] [facility] [place] [address] PCP - General Internal Medicine 06/29/15 11/28/24 Emmett Carrizales MD [address] [facility] [place] [address] PCP - General Internal Medicine 11/29/24 Emmett Carrizales MD [address] [place] [address] Internal Medicine 11/29/24 Karolyn Tobar, RN [place] Section Cutter 06/07/23 09/12/23 Karolyn Tobar, RN [place] Nurse Section Cutter 06/07/23 Ifrah Whitfield APRN, PROSTHETIC AIDES TEACHER #[address] [address] Nurse Practitioner Advanced Practice Nurse 03/06/22 documented as of this encounter
--- OUTSIDE RECORDS SUMMARY | 2025-01-19 16:22 | XMS_ITS | Encounter Summary ---
Author Organization [facility] Address [address] [place] [address] Phone Care Team Providers Care Rotary Adjuster Name Role Phone Emmett Carrizales MD Primary Care Provider [phone]- [phone] Emmett Carrizales MD Primary Care Provider [phone]- [phone] Emmett Carrizales MD Unavailable [phone] Karolyn Tobar RN Unavailable Unavailable Karolyn Tobar RN Unavailable Unavailable Ifrah Whitfield APRN, CNP Unavailable [phone]- [phone] Reason for Visit * Reason Comments Medication Refill Encounter Details Date Type Department Care Team (Late st Contact Info) Description 05/11/2023 [facility]ill [facility] Emergency [address] [place] [address] Emmett Carrizales MD [address] [place] [address] Medication Refill Social History Tobacco Use [...] 01/20/2025 1:00 AM CDT Home Care Visit [address] [address] Pat Abdullahi OT 01/22/2025 1:00 AM CDT Home Care Visit [address] [address] Nata Casas RN [place] 01/26/2025 1:00 PM CDT Clinical Support [facility] Oncology Services [address] [place] [address] Discharge Disposition: Discharged to home or Selfcare 01/27/2025 1:00 AM CDT Home Care Visit [address] [address] Gayatri Rubio, MARBLE COPER 01/29/2025 1:00 AM CDT Home Care Visit [address] [address] Gayatri Rubio, MARBLE COPER 02/02/2025 1:00 AM CDT Home Care Visit [address] [address] Gayatri Rubio, MARBLE COPER 02/04/2025 1:00 AM CDT [facility] [address] [place] [address] Gayatri Rubio, MARBLE COPER 02/09/2025 1:00 AM CDT [facility] [address] [place] [address] Caren [place], PT 02/25/2025 11:30 AM CDT [facility] Visit [facility] [place] [address] [place] [address] Emmett Carrizales MD [address] [place] [address] documented as of this encounter Visit Diagnoses Not on filedocumented in this encounter Additional Health Concerns Assessment Noted Time PHQ-9 Depression Total Score: 0 06/01/20 21 3:00 PM CDT documented as of this encounter Care Teams Rotary Adjuster Relationship Specialty Start Date End Date Emmett Carrizales MD [address] [place] [address] PCP - General Internal Medicine 06/29/15 11/28/24 Emmett Carrizales MD [address] [place] [address] PCP - General Internal Medicine 11/29/24 Emmett Carrizales MD [address] [place] [address] Internal Medicine 11/29/24 Karolyn Tobar, RN [place] Refrigerating Oiler 06/07/23 09/12/23 Karolyn Tobar RN [place] Nurse Refrigerating Oiler 06/07/23 Ifrah Whitfield APRN, CONSULTANT #2 [facility] [address] [address] Nurse Practitioner Advanced Practice Nurse 03/06/22 documented as of this encounter
--- OUTSIDE RECORDS SUMMARY | 2025-01-19 16:22 | XMS_ITS | CONTINUITY OF CARE DOCUMENT ---
Author Name shi osullivan Address Unknown Organization [facility] Address [id number] [place] [address] [address] [place] [address] Phone [phone] Care Team Providers Care Room Worker Name Role Phone shi osullivan Unavailable Unavailable
--- OUTSIDE RECORDS SUMMARY | 2025-01-19 16:22 | XMS_ITS | Encounter Summary ---
Author Organization [facility] Address [address] [place] [address] Phone Care Team Providers Care Hand Etcher Helper Name Role Phone Emmett Carrizales MD Primary Care Provider [phone]- [phone] Emmett Carrizales MD Primary Care Provider [phone]- [phone] Emmett Carrizales MD Unavailable [phone] Karolyn Tobar RN Unavailable Unavailable Karolyn Tobar RN Unavailable Unavailable Ifrah Whitfield APRN, CNP Unavailable [phone] Reason for Visit * Reason Comments Medication Refill Encounter Details Date Type Department Care Team (Late st Contact Info) Description 05/02/2023 Refill [facility] Emergency 1 [place] [address] Emmett Carrizales MD [address] [facility] [place] [address] Medication Refill Social History Tobacco Use [...] 01/20/2025 1:00 AM CDT Home Care Visit [address] [address] Pat Abdullahi OT 01/22/2025 1:00 AM CDT Home Care Visit [facility] [address] [place] [address] Nata Casas RN [place] 01/26/2025 1:00 PM CDT Clinical Support [facility] Oncology Services [address] [place] [address] Discharge Disposition: Discharged to home or Selfcare 01/27/2025 1:00 AM CDT Home Care Visit [address] [address] Gayatri Rubio, PRESTIDIGITATOR 01/29/2025 1:00 AM CDT Home Care Visit [address] [address] Gayatri Rubio, PRESTIDIGITATOR 02/02/2025 1:00 AM CDT Home Care Visit [address] [address] Gayatri Rubio, PRESTIDIGITATOR 02/04/2025 1:00 AM CDT Home Care Visit [address] [address] Gayatri Rubio, PRESTIDIGITATOR 02/09/2025 1:00 AM CDT Home Care Visit [address] [address] Caren Dover, PT 02/25/2025 11:30 AM CDT [facility] Visit [facility] [address] [place] [address] Emmett Carrizales MD [address] [place] [address] documented as of this encounter Visit Diagnoses Not on filedocumented in this encounter Additional Health Concerns Assessment Noted Time PHQ-9 Depression Total Score: 0 06/01/20 21 3:00 PM CDT documented as of this encounter Care Teams Hand Etcher Helper Relationship Specialty Start Date End Date Emmett Carrizales MD [address] [place] [address] PCP - General Internal Medicine 06/29/15 11/28/24 Emmett Carrizales MD [address] [place] [address] PCP - General Internal Medicine 11/29/24 Emmett Carrizales MD [address] [place] [address] Internal Medicine 11/29/24 Karolyn Tobar, RN [place] Annual Giving Manager 06/07/23 09/12/23 Karolyn Tobar, RN [place] Nurse Annual Giving Manager 06/07/23 Ifrah Whitfield APRN, FILTER CLEANER #[address] [address] Nurse Practitioner Advanced Practice Nurse 03/06/22 documented as of this encounter
--- OUTSIDE RECORDS SUMMARY | 2025-01-19 16:22 | XMS_ITS | Encounter Summary ---
Author Organization [facility] Address [address] [facility] [place] [address] Phone Care Team Providers Care Laborer Wharf Name Role Phone Emmett Carrizales MD Primary Care Provider [phone] Emmett Carrizales MD Primary Care Provider [phone]- [phone] Emmett Carrizales MD Unavailable [phone] Karolyn Tobar RN Unavailable Unavailable Karolyn Tobar RN Unavailable Unavailable Ifrah Whitfield APRN, CNP Unavailable [phone]- [phone] Reason for Visit * Reason Comments Medication Refill Encounter Details Date Type Department Care Team (Late st Contact Info) Description 03/12/2023 Refill [facility] - [place] [address] [place] [address] Emmett Carrizales MD [address] [place] [address] Medication Refill Social History Tobacco [...] 01/20/2025 1:00 AM CDT Home Care Visit [address] [address] Pat Abdullahi OT 01/22/2025 1:00 AM CDT Home Care Visit [address] [address] Nata Casas RN [place] 01/26/2025 1:00 PM CDT Clinical Support [facility] Oncology Services [address] [place] [address] Discharge Disposition: Discharged to home or Selfcare 01/27/2025 1:00 AM CDT Home Care Visit [address] [address] Gayatri Rubio, UPKEEP MECHANIC 01/29/2025 1:00 AM CDT Home Care Visit [address] [address] Gayatri Rubio, UPKEEP MECHANIC 02/02/2025 1:00 AM CDT Home Care Visit [address] [address] Gayatri Rubio, UPKEEP MECHANIC 02/04/2025 1:00 AM CDT Home Care Visit [address] [address] Gayatri Rubio, UPKEEP MECHANIC 02/09/2025 1:00 AM CDT [facility] [address] [place] [address] Caren Dover, PT 02/25/2025 11:30 AM CDT [facility] Visit [facility] [address] [place] [address] Emmett Carrizales MD [address] [place] [address] documented as of this encounter Visit Diagnoses Not on filedocumented in this encounter Additional Health Concerns Assessment Noted Time PHQ-9 Depression Total Score: 0 06/01/20 21 3:00 PM CDT documented as of this encounter Care Teams Laborer Wharf Relationship Specialty Start Date End Date Emmett Carrizales MD [address] [place] [address] PCP - General Internal Medicine 06/29/15 11/28/24 Emmett Carrizales MD [address] [place] [address] PCP - General Internal Medicine 11/29/24 Emmett Carrizales MD [address] [place] [address] Internal Medicine 11/29/24 Karolyn Tobar, RN [place] Hoistman 06/07/23 09/12/23 Karolyn Tobar, RN [place] Nurse Hoistman 06/07/23 Ifrah Whitfield APRN, BED RUBBER #[address] [address] Nurse Practitioner Advanced Practice Nurse 03/06/22 documented as of this encounter
--- OUTSIDE RECORDS SUMMARY | 2025-01-19 16:22 | XMS_ITS | Encounter Summary ---
Author Organization [facility] Address [address] [place] [address] Phone Care Team Providers Care Bulkhead Carpenter Name Role Phone Emmett Carrizales MD Primary Care Provider [phone] Emmett Carrizales MD Primary Care Provider [phone]- [phone] Emmett Carrizales MD Unavailable Karolyn Tobar RN Unavailable Unavailable Karolyn Tobar RN Unavailable Unavailable Ifrah Whitfield APRN, CNP Unavailable [phone] Reason for Visit * Reason Comments Medication Refill Encounter Details Date Type Department Care Team (Late st Contact Info) Description 03/14/2023 Refill [facility] Emergency 1 [place] [address] Emmett Carrizales MD [address] [facility] [place] [address] Medication Refill Social History Tobacco Use [...] 01/20/2025 1:00 AM CDT Home Care Visit [address] [address] Pat Abdullahi OT 01/22/2025 1:00 AM CDT Home Care Visit [address] [address] Nata Casas RN [place] 01/26/2025 1:00 PM CDT Clinical Support [facility] Oncology Services [address] [place] [address] Discharge Disposition: Discharged to home or Selfcare 01/27/2025 1:00 AM CDT Home Care Visit [address] [address] Gayatri Rubio, SCIENTIFIC INFORMATICS ANALYST 01/29/2025 1:00 AM CDT Home Care Visit [address] [address] Gayatri Rubio, SCIENTIFIC INFORMATICS ANALYST 02/02/2025 1:00 AM CDT Home Care Visit [address] [address] Gayatri Rubio, SCIENTIFIC INFORMATICS ANALYST 02/04/2025 1:00 AM CDT Home Care Visit [address] [address] Gayatri Rubio, SCIENTIFIC INFORMATICS ANALYST 02/09/2025 1:00 AM CDT Home Care Visit [address] [address] Caren [place], PT 02/25/2025 11:30 AM CDT Office Visit [facility] - Internal Medicine [facility] [address] [place] [address] Emmett Carrizales MD [address] [place] [address] documented as of this encounter Visit Diagnoses Not on filedocumented in this encounter Additional Health Concerns Assessment Noted Time PHQ-9 Depression Total Score: 0 06/01/ 21 3:00 PM CDT documented as of this encounter Care Teams Bulkhead Carpenter Relationship Specialty Start Date End Date Emmett Carrizales MD [address] [place] [address] PCP - General Internal Medicine 06/29/15 11/28/24 Emmett Carrizales MD [address] [place] [address] PCP - General Internal Medicine 11/29/24 Emmett Carrizales MD [address] [place] [address] Internal Medicine 11/29/24 Karolyn Tobar, RN [place] Ground Nuclear Weapons Assembly Officer 06/07/23 09/12/23 Karolyn Tobar, RN [place] Nurse Ground Nuclear Weapons Assembly Officer 06/07/23 Ifrah Whitfield APRN, SHOP STEWARD #[address] [address] Nurse Practitioner Advanced Practice Nurse 03/06/22 documented as of this encounter
== END 2025-01-19 15:26 | disposition home or self-care (01) ==
PROVIDERS: PCP Internal Medicine; Visit Provider Nurse Practitioner Family
DX: Z12.31 Encounter for screening mammogram for malignant neoplasm of breast (principal); R92.8 Other abnormal and inconclusive findings on diagnostic imaging of breast
CPT/HCPCS: 77063; 77067

== ENCOUNTER 2025-02-10 11:18 | Outpatient (CLI) | payer MEDICARE, BC, SELFPAY ==
--- NOTE | ~2025-02-10 | MMUS_ITS ---
EXAMINATION: MM diagnostic chiqui RT w olaf, US breast RT limited HISTORY: Right breast mass TECHNIQUE: Additional 3-D tomosynthesis images of the right breast were performed and synthetic 2-D i mages were generated. CAD analysis was submitted and interpreted. High resolution limited right breas t ultrasound was performed. COMPARISON: 01/20/2020, 12/07/2023 BREAST PARENCHYMAL COMPOSITION:Not Dense. There are scattered areas of fibroglandular density. FINDINGS: MAMMOGRAPHIC FINDINGS: Spot compression views confirm a 7 mm ovoid mass at the inner right breast, anterior depth. ULTRASOUND: At the 3:00 position right breast, 1 cm from the nipple, there is a 5 mm circumscribed probable mildl y complex with posterior through transmission but a probable low-level internal echoes. There is an a dditional 2 mm hypoechoic structure, possibly cyst, at the 5:00 position right breast, near the nippl e. IMPRESSION: 5 mm probable mildly complex cyst of the right breast 3:00 position, as above. Additional 2 mm possi ble cyst versus hypoechoic mass at the 5:00 position right breast near the nipple. 6 month follow-up ultrasound recommended to reassess. BI-RADS category 3, probably benign findings. Reviewed, dictated and finalized at location M. IMPRESSION: 5 mm probable mildly complex cyst of the right breast 3:00 position, as above. Additional 2 mm possible cyst versus hypoechoic mass at the 5:00 position righ t breast near the nipple. 6 month follow-up ultrasound recommended to reassess. BI-RADS category 3, probably benign findings.
--- OUTSIDE RECORDS SUMMARY | 2025-02-10 11:25 | XMS_ITS | Encounter Summary ---
Author Organization [facility] Address [address] [place] [address] Phone Care Team Providers Care Front Desk Worker Name Role Phone Emmett Carrizales MD Primary Care Provider Emmett Carrizales MD Primary Care Provider Emmett Carrizales MD Unavailable Karolyn Tobar RN Unavailable Unavailable Ifrah Whitfield APRN, CNP Unavailable Leonie Kinsey Unavailable Unavailable Encounter Details Date Type Department Care Team (Late st Contact Info) Description 04/23/2024 [facility]uling [address] [place] [address] Emmett Carrizales MD [address] [place] [address] Social History Tobacco Use Types Packs/Day Years Used Date Smoking Tobacco: Never Passive Smoke Exposure: Never Smokeless Tobacco: Never Alcohol Use Standard Drinks/Week Comments Not Currently 0 (1 standard drink = 0.6 oz pur e alcohol) [facility] Utilities Answer Date Recorded In [...] often do you attend chur ch or taoist services? Never 09/13/2023 Do you belong to any clubs o r organizations such as restorationist groups, unions, fraternal or athletic groups, or [...] Total Score - Questions 1-9 0 08/2023 [facility] Occupat ional [facility] - Occupational Stress [...] Care Team (Late st Contact Info) Description 02/10/2025 2:00 PM CDT [facility] [address] [place] [address] Harika Gold OTA [place] 02/12/2025 1:00 AM CDT [facility] [address] [place] [address] Harika Gold OTA [place] 02/17/2025 1:00 AM CDT [facility] [address] [place] [address] Pat Abdullahi OT 02/25/2025 11:30 AM CDT Office Visit [facility] - Internal Medicine - [place] [address] [place] [id number] Emmett Carrizales MD [address] [place] [address] documented as of this encounter Goals Goal [...] plan in case I fall - pick pulling machine tender clutter from the floors - use [...] Total Score: 0 09/13/19 24 1:30 PM [employer] documented as of this encounter Care Teams Front Desk Worker Relationship Specialty Start Date End Date Emmett Carrizales MD [address] [place] [address] PCP - General Internal Medicine 06/29/15 11/28/24 Emmett Carrizales MD [address] [place] [address] PCP - General Internal Medicine 11/29/24 Emmett Carrizales MD [address] [place] [address] Internal Medicine 11/29/24 Karolyn Tobar RN [place] Nurse Health Safety Specialist 06/07/23 01/21/25 Ifrah Whitfield APRN, MACHINE ADJUSTER #[address] [address] Nurse Practitioner Advanced Practice Nurse 03/06/22 Leonie Kinsey Health Head Of Talent Management 01/21/25 documented as of this encounter
--- OUTSIDE RECORDS SUMMARY | 2025-02-10 11:25 | XMS_ITS | Data Portability ---
Author Organization [place] [facility] [place] [facility], Main Office Address [address] [place] [address] Care Team Providers Care Wind Turbine Engineer Name Role Phone BETSY VALENCIA Primary Care Provider BETSY VALENCIA Referring Provider [phone] Assessment Encounter Date Assessment Date Assessment LastModified by Organization Details LastModified Time 11/24/2024 11/24/2024 This note is dictated and transcribed by [employer]. Manager Landscape variances may occur. Despite proofreading, typographical errors may occur. Occasional wrong-word or 'eocmc-t-whhb' substitutions may have occurred due to the inherent limitations of voice recording. Read the chart carefully and recognize, using context, where substitutions have occurred. Not available 11/26/2024 08:13:40 12/01/2024 12/01/2024 This note is dictated and transcribed by [employer]. Manager Landscape variances may occur. Despite proofreading, typographical errors may occur. Occasional wrong-word or 'wuuvc-p-paqc' substitutions may have occurred due to the inherent limitations of voice recording. Read the chart carefully and recognize, using context, where substitutions have occurred. Not available 12/01/2024 16:15:07 12/08/2024 12/08/2024 This note is dictated and transcribed by [employer]. Manager Landscape variances may occur. Despite proofreading, typographical errors may occur. Occasional wrong-word or 'ohrvu-y-xgmr' substitutions may have occurred due to the inherent limitations of voice recording. Read the chart carefully and recognize, using context, where substitutions have occurred. Not available 12/08/2024 15:48:43 12/22/2024 12/22/2024 This note is dictated and transcribed by [employer]. Manager Landscape variances may occur. Despite proofreading, typographical errors may occur. Occasional wrong-word or 'kxzri-t-uokw' substitutions may have occurred due to the inherent limitations of voice recording. Read the chart carefully and recognize, using context, where substitutions have occurred. [email or web address] Not available 12/22/2024 15:30:26 01/12/2025 01/12/2025 This note is dictated and transcribed by [employer]. Manager Landscape variances may occur. Despite proofreading, typographical errors may occur. Occasional wrong-word or 'iihgf-i-lhvh' substitutions may have occurred due to the [...] 3 or more view 2024 025 shamika Donnelly [facility] [place], [address], [place], [address], 5 11:18:20 XR, foot, 3 or more view 2024 025 [email or web address] 7 [facility] [place], [address], [place], [address], 5 08:17:29 Medication Orders doxycycline hyclate 100 mg capsule 2024 025 [facility] [place], [address], [place], [address], 5 16:14:12 Patient TargetsNo targets recorded. Patient InstructionsNo instructions recorded. Reason for Referral None Reported. Results Created Date Observation Date Name Description Value Unit Range Abnormal Flag Note LastModifiedBy Organization Detail LastModifiedTime 11/15/19 25 11/14/2024 XR, foot, 2 view [facility] [address], [place] [address] Jr hahn Name: JOSR BLAKE MS Access ion #: [id number] Sex: F : 1949 6 Locati [...] at this time. Page 1 of 2 [facility] Jr hahn Name: JOSR BLAKE MS Access ion #: [id number] Sex: F : 1949 6 Exam [...] (CT) (CT) Page 2 of [email or web address] [facility] (Imaging) [address] [place], [address], 11/17/2024 09:03:30 11/15/19 25 11/14/2024 XR, foot, 3 or more view No observ ation record ed. [email or web address] [facility] [address] [place], [address], 11/17/2024 09:03:24 11/27/19 25 XR, foot, 3 or more view No observ ation record ed. [email or web address] [facility] [place] [address], [place], [address], 11/26/2024 08:17:28 01/13/20 25 XR, foot, 3 or more view No observ ation record ed. [email or web address] [facility] [place] [address], [place], [address], 01/12/2025 11:18:19 Result Notes None recorded. Problems Name Problem SNOMED Code Status Onset Date Resolution Date Notes Provider Name and Address Organization Details Recorded Time Hammer toe 441960173 Active 2019 Not Available [employer] 3 22:06:35 Hyperchole sterolemia 87158347 Active Not Available [facility] 3 22:06:35 Postoperat kofi visit 153223632 Active 2019 Not Available [facility] 3 22:06:35 Unable to cut own toenails 836052439 Active 2021 Not Available [facility] 3 22:06:35 Pain in toe 112324575 Active 2021 Not Available [facility] 3 22:06:35 Pain of toe of left foot 2561002923807 08 Active 2022 Not Available [facility] 3 22:06:36 Hypertensi ve disorder 89263466 Active Not Available [facility] 3 22:06:36 Ingrowing toenail 613437788 Active 2021 Not Available [facility] 3 22:06:36 Foot pain 75043745 Active 2019 Not Available [facility] 3 22:06:36 Dystrophia unguium 58155267 Active 2022 Not Available [facility] 3 22:06:36 Acquired hallux limitus of right great toe 0765834974297 100 Active 2022 Naveed Lala DPM [address], [place], [address] , [employer] 3 09:52:36 Hammer toe 548891156 Active 2022 Naveed Lala DPM [address], [address], [place], [address] , [employer] 3 09:53:00 Foot callus 309184700 Active 2022 Naveed Lala DPM [address], [address], [place], [address] , [employer] 3 09:53:10 Bunion 003347513 Active 2023 Naveed Lala DPM [address], [address], [place], [address] , [employer] 4 10:56:10 Bunion 327647554 Active 2023 Naveed Lala DPM [address], [address], [place], [address] , [employer] 4 10:56:17 Pain in both feet 2049356357323 9102 Active 2023 Naveed Lala DPM [address], [address], [place], [address] , [employer] 4 10:56:22 Callosity on toe 667930651 Active 2023 Naveed Lala DPM [address], [address], [place], [address] , [facility] [employer] [facility] [employer] [facility] 4 10:56:36 Acute postoperat kofi pain 9262350849053 05 Active 2023 Naveed Lala DPM [address], [address], [place], [address] , [facility] [employer] [facility] 4 09:11:28 Postoperat kofi care Active 2023 Naveed Lala DPM [address], [address], [place], [address] , [facility] [employer] [facility] 4 09:12:00 Ingrowing nail of toe of right foot 0593210695824 9102 Active 2023 Naveed Lala DPM [address], [address], [place], [address] , [place] [facility] [employer] [facility] 4 11:30:59 Closed bimalleola r fracture of left ankle 8037050926243 9103 Active 2023 Naveed Lala DPM [address], [address], [place], [address] , [facility] [employer] [facility] 4 11:32:43 Swelling of bilateral lower limbs 005905287 Active 2023 Naveed Lala DPM [address], [place], [address] , [employer] [facility] 4 12:22:19 Pain of toe of right foot 9535857065248 01 Active 2024 Naveed Lala DPM [address], [address], [place], [address] , [facility] 5 10:38:01 Hammer toe 796995019 Active 2024 Naveed Lala DPM [address], [address], [place], [address] , [employer] 5 10:38:58 [place] of toe 06213364 Active 2024 Naveed Lala DPM [address], [address], [place], [address] , [employer] [facility] [employer] 5 10:39:11 Cellulitis of foot 750682761 Active 2024 Naveed Lala DPM [address], [address], [place], [address] , [employer] [facility] [employer] 5 16:13:23 Dehiscence of external surgical incision wound 7486810565665 08 Active 2024 Naveed Lala DPM [address], [address], [place], [address] , [place] [employer] [facility] [employer] 5 16:14:47 Problem Notes None recorded. Procedures Surgical History Date Name Laterality Status Provider Name and Address Organization Details Recorded Time 5 Suture Removal completed Naveed Lala DPM [address], [address], [place], [address], [employer] 12/08/2024 15:48:36 4 Partial Nail [employer] Matrixectomy-Ri ght completed TYLER Loza [address], [place], [address], [employer] 03/11/2024 11:29:59 4 Suture Removal completed TYLER Loza [address], [place], [address], [employer] 01/10/2024 10:15:37 4 Nail Debridement completed TYLER Loza [address], [place], [address], [place] [facility] [employer] 12/11/2023 12:40:15 4 Nail Debridement completed Naveed Lala DPM [address], [address], [place], [address], [employer] [facility] 09/24/2023 11:25:50 4 Callus Debridement 2-4 completed Naveed Lala DPM [address], [address], [place], [address], [employer] [facility] [employer] [facility] 09/24/2023 12:47:17 3 Nail Debridement completed Naveed Lala DPM [address], [address], [place], [address], [employer] [facility] [employer] [facility] 06/21/2023 10:11:41 3 Nail Debridement completed Naveed Lala DPM [address], [address], [place], [address], [employer] [facility] [employer] [facility] 03/19/2023 09:52:23 3 Callus Debridement 2-4 completed Naveed Lala DPM [address], [address], [place], [address], [employer] [facility] [employer] [facility] 03/19/2023 09:52:20 3 Nail Debridement completed Naveed Lala DPM [address], [place], [address], [place] [facility] [employer] 12/11/2022 10:01:29 Imaging Results None recorded. Procedure Notes None recorded. Medical Equipment None Reported. Allergies Allergen ID Allergen Name Allergen Category Reaction Reaction Severity Criticality Documentation Date Start Date Code Code System Note Provider Name and Address Organization Details Recorded Time 45360 Substance with sulfonami de structure and antibacte rial mechanism of action (substanc e) medicatio n Not available Not available Not available 10/11/2022 72752 8003 SNOMED Not Available [facility] 22:07:26 Medications [...] Available Not Available Not Available amoxicillin 875 mg-bearu m clavulanate 125 mg tablet 05/06 completed [...] Updated DateTime 5 160.02 cm 28.3 kg/m2 23024.7 8 g 110 /min 14 /min 98 % 98 % 124 mm[Hg] 68 mm[Hg] Tamiko Amandeep Care Team Connect [facility] 5 15:49:41 Date Recorded Body height Body mass index (BMI) Body weight Heart rate Respiratory rate Oxygen saturation Oxygen saturation in Arterial blood by Pulse oximetry Systolic blood pressure Diastolic blood pressure Provider Name and Address Organization Details Last Updated DateTime 5 160.02 cm 28.3 kg/m2 16328.7 8 g 99 /min 14 /min 98 % 98 % 116 mm[Hg] 64 mm[Hg] Tamiko Bernstein [employer] 5 15:29:56 Date Recorded Body height Body mass index (BMI) Body weight Heart rate Respiratory rate Oxygen saturation Oxygen saturation in Arterial blood by Pulse oximetry Systolic blood pressure Diastolic blood pressure Provider Name and Address Organization Details Last Updated DateTime 5 160.02 cm 28.3 kg/m2 36494.7 8 g 88 /min 14 /min 98 % 98 % 138 mm[Hg] 78 mm[Hg] Tamiko Bernstein Care Team Connect [facility] 5 14:57:59 Date Recorded Body height Body mass index (BMI) Body weight Heart rate Respiratory rate Oxygen saturation Oxygen saturation in Arterial blood by Pulse oximetry Systolic blood pressure Diastolic blood pressure Provider Name and Address Organization Details Last Updated DateTime 5 160.02 cm 28.3 kg/m2 72783.7 8 g 101 /min 14 /min 98 % 98 % 153 mm[Hg] 94 mm[Hg] Tamiko Amandeep [employer] 5 15:06:44 Date Recorded Body height Body mass index (BMI) Body weight Heart rate Respiratory rate Oxygen saturation Oxygen saturation in Arterial blood by Pulse oximetry Systolic blood pressure Diastolic blood pressure Provider Name and Address Organization Details Last Updated DateTime 5 160.02 cm 28.3 kg/m2 14204.7 8 g 73 /min 14 /min 98 % 98 % 159 mm[Hg] 92 mm[Hg] Tamiko Bernstein [place] [facility] 10:34:32 Social History None recorded. Functional Status [...] SNOMED-CT Code Diagnosis ICD10 Code Diagnosis Note [id number] [facility] [place] [address] [place] [address] 02/06/2022 00:00:00 02/06/2022 13:26:56 [id number] [facility] [place] [address] [place] [address] 05/22/2022 00:00:00 05/22/2022 14:00:27 [id number] Naveed Lala DPM [facility] [place] [address] [place] [address] 08/24/2022 00:00:00 08/24/2022 15:22:05 [id number] Naveed Lala DPM [facility] [place] [address] [place] [address] 12/11/2022 09:38:08 12/11/2022 10:06:20 Dystrophia unguium 24975374 L60.3 Nails 1 through 10 were debrided with sharp mechanical debridemen t without incident. Nails were debrided and greater than 50% length and thickness where needed. Pain in toe 174242879 M7 9.675 M79.674 Secondary to toenails Unable to cut own toenails 197548244 Z74.1 broken arm left [id number] Naveed Lala DPM [facility] [place] [address] [place] [address] 03/19/2023 09:33:47 03/19/2023 10:10:28 Acquired hallux limitus of right great toe 4194319267 910884 M20.5X1 Rx custom orthoticsC ontinue supportive shoe gearDenies surgeryfol low-up as needed Hammer toe 085779830 M20 .40 bilateral as above Dystrophia unguium 94466 009 L60.3 Nails 1 through 10 were debrided with sharp mechanical debridemen t without incident. Nails were debrided and greater than 50% length and thickness where needed. Foot callus 372492417 L8 4 debrided without incidentus e pumice stone on the area daily to prevent build-up in recurrence recommend wide shoe gear- educated on different shoe gear Unable to cut own toenails 504227196 Z74.1 [id number] Naveed Lala DPM [facility] [place] [address] [place] [address] 06/21/2023 09:43:48 06/21/2023 10:20:32 Dystrophia unguium 35405807 L60.3 Nails 1 through 10 were debrided with sharp mechanical debridemen t without incident. Nails were debrided and greater than 50% length and thickness where needed.Fol low-up 3 months as needed Pain in toe 255626370 M7 9.675 M79.674 Secondary to toenails Unable to cut own toenails 150083452 Z74.1 [id number] Naveed Lala DPM [facility] [place] [address] [place] [address] 09/24/2023 10:20:11 09/25/2023 14:03:07 Pain in both feet 3737998433 4380560 M79.671 M79.672 obtain surgical clearanceP david for surgery and early [place]urgica l clearance to be obtained December 09 Hammer toe 518171242 M20 .40 left 2nd and 5th- plan arthrodesi s left 2nd toe with arthroplas ty Derotation 5thright 2nd- plan arthroplas ty 2nd toe right Bunion 245170952 M21.61 9 right- distal Chevron osteotomy with possible Ritesh Callosity on toe 20091120 L84 lateral left 5th Pain in toe 797061626 M7 9.675 M79.674 Secondary to toenails [id number] Naveed Lala DPM [facility] [place] [address] [place] [address] 12/10/2023 15:50:46 12/11/2023 16:20:37 Pain in both feet 0000939628 4720666 M79.671 M79.672 [facility] for [facility] and early [place] l clearance to be obtained December 09- left foot hammertoe surgery Hammer toe 997310100 M20 .40 left 2nd,3rd and 5th- plan arthrodesi s left 2nd toe with arthroplas ty left third and Derotation arthroplas ty 5thright 2nd- plan arthroplas ty 2nd toe right Bunion 516264562 M21.61 9 right- distal Chevron osteotomy with possible Ritesh Callosity on toe 20091120 L84 lateral left 5th Pain in toe 780016450 M7 9.675 M79.674 Secondary to toenails Ingrowing toenail 239230 009 L60.0 right lateral great toe - noninfecte dslant back procedure performedw ound care recommende d daily to prevent wounds and infection presents will not be able to perform surgery until healed [id number] Naveed Lala DPM [facility] [place] [address] [place] [address] 12/20/2023 08:35:55 12/20/2023 09:37:39 Postoperative care 356004443 Z48.89 s/p 3 daycontinu e postop shoeKeep dressings clean and dry for 1 weekmonito r for signs of infection to the foot at present seek medical attention immediatel yX-rays reviewed with the patient Hammer toe 645132291 M20 .40 left 2nd,3rd and 5th- plan arthrodesi s left 2nd toe with arthroplas ty left third and Derotation arthroplas ty 5th [id number] Naveed Lala DPM [facility] [place] [address] [place] [address] 12/31/2023 09:21:35 02/07/2024 14:03:08 Postoperative care 014368036 Z48.89 s/p Ten dayscontin ue postop shoeKeep dressings clean and dry for 1 weekmonito r for signs of infection to the foot at present seek medical attention immediatel yX-rays reviewed with the patientfol low-up 1 week Hammer toe 416251833 M20 .40 left 2nd,3rd and 5th- plan arthrodesi s left 2nd toe with arthroplas ty left third and Derotation arthroplas ty 5th [id number] Naveed Lala DPM [facility] [place] [address] [address] 01/10/2024 08:54:04 01/10/2024 11:49:57 Postoperative care 028175926 Z48.89 s/p 3 weekssutur es removedcon tinue postop shoeno further dressings needed keep clean and coveredmon itor for signs of infection to the foot at present seek medical attention immediatel yX-rays reviewed with the patientfol low-up 2-3 weeks- x-rays at that time Hammer toe 490015551 M20 .40 left 2nd,3rd and 5th- plan arthrodesi s left 2nd toe with arthroplas ty left third and Derotation arthroplas ty 5th [id number] Naveed Lala DPM [facility] [place] [address] [place] [address] 03/11/2024 10:45:23 03/11/2024 14:59:12 Ingrowing nail of toe of right foot 6124197424 3077423 L60.0 lateral corner right great toenail non-infect edwound care instructio aurea givenDress ing instructio aurea reviewedpa rtial matrixecto my todayfollo w-up 2 weeks Closed bim alleolar fracture of left ankle 2376230247 1741160 S82.845A obtain new x-rayscont inue cam boot with protected weight-ivy ringrice therapy Postoperative care 22174 9007 Z48.89 s/p another surgeon left anklestatu s post 6 weeks [id number] Naveed Lala DPM [facility] [place] [address] [address] 03/25/2024 12:05:36 03/25/2024 14:27:42 Closed bimalleolar fracture of left ankle 0222754630 7866371 S82.845A obtain new x-rayscont inue cam boot with protected weight-ivy ringrice therapy [id number] Naveed Lala DPM [facility] [place] [address] [address] 04/22/2024 11:16:18 04/22/2024 15:16:56 Closed bimalleolar fracture of left ankle 6324413938 1247020 S82.845A xrays reviewed with the patient- no strenuous activities - may change to normal shoe gearrice therapyfol low up as needed [id number] Naveed Lala DPM [facility] [place] [address] [place] [address] 10/23/2024 09:57:01 10/28/2024 09:21:23 Pain of toe of right foot 8197505054 91731 M79.674 x-rays reviewed Bunion 656024598 M21.61 9 rightdiscu ssed optionsx-r ays reviewed with the patientwou ld likely require fusion 1st MPJ with hammertoe arthroplas ty of the 2nd- right foot Hammer toe 081681032 M20 .40 M20.41 right 2nd toediscuss ed optionsas above [place] of toe 76114571 L84 offloading to prevent open woundscons ervative measures reviewed with the patientFol low-up for surgery once has decided until then continue with conservati ve measures Acquired h allux limitus of right great toe 8154215926 880069 M20.5X1 asContinue supportive shoe gearrecomm end fusion [id number] Naveed Lala DPM [facility] [place] [address] [place] [address] 11/17/2024 10:41:57 11/19/2024 13:48:52 Postoperative care 573136910 Z48.89 s/p right fusion 1st MPJ and 2nd hammertoe arthroplas tydressing s changedric e therapycon tinue postop shoeelevat ion foot when at restminima l to no walking next 2 weeksfollo w-up on week for dressing change [id number] Naveed Lala DPM [facility] [place] [address] [place] [address] 11/24/2024 15:43:25 11/27/2024 08:43:21 Postoperative care 297396080 Z48.89 s/p right fusion 1st MPJ and 2nd hammertoe arthroplas tydressing s changedric e therapycon tinue postop shoeelevat ion foot when at restminima l to no walking next 2 weeksfollo w-up on week for dressing change and suture removal [id number] Naveed Lala DPM [facility] [place] [address] [place] [address] 12/01/2024 15:21:34 12/09/2024 12:18:01 Cellulitis of foot 699871222 L03.119 preventati ve due to injury and mild dehiscence of incision Dehiscence of external surgical incision wound 1316538096 13140 T81.31XA minor right footstart doxy due to injury and minor abrasion to prevent infection Postoperative care 80391 9007 Z48.89 s/p right fusion 1st MPJ and 2nd hammertoe arthroplas tydressing s changedric e therapycon tinue postop shoeelevat ion foot when at restminima l to no walking next 2 weeksfollo w-up on week for dressing change and suture removal [id number] Naveed Lala DPM [facility] [place] [address] [place] [address] 12/08/2024 14:52:29 12/09/2024 13:11:56 Cellulitis of foot 923209293 L03.119 resolvedfi marilynn doxycyclin e Dehiscence of external surgical incision wound 3569209443 19837 T81.31XA resolve right foot Postoperative care 34639 9007 Z48.89 s/p right fusion 1st MPJ and 2nd hammertoe arthroplas tysutures removedric e therapycon tinue postop shoeelevat ion foot when at restminima l to no walking next 2 weeksfollo w-up 2 weeks [id number] Naveed Lala DPM [facility] [place] [address] [place] [address] 12/22/2024 15:02:55 12/29/2024 12:56:24 Postoperative care 711023885 Z48.89 s/p right fusion 1st MPJ and 2nd hammertoe arthroplas tyK-wire removed 2nd toerice therapycon tinue postop shoeelevat ion foot when at restminima l to no walking next 2 weeksrecom mend silicone scar sheets to the incisionsf ollow-up 2 weeks--- repeat x-rays at this time [id number] Naveed Lala DPM [facility] [place] [address] [place] [address] 01/12/2025 10:30:05 01/13/2025 08:16:04 Postoperative care [id number] Z48.89 s/p right fusion 1st MPJ and [...] Recorded Advance Directives Directive None Recorded Payers Insurance Date Sequence Insurance Name Policy Number Policy Dietrich Covered Member ID Dietrich Member ID Guarantor Name 01/11/2025 1 [employer] - GOLD PLUS (MEDICARE REPLACEMENT/ ADVANTAGE - HMO) Lana Lockwood [id number] Lana Lockwood 01/12/2025 2 [place] 106 Florencio Lockwood [id number] Lana Lockwood Notes Date Note Type Note [...] Lala DPM [address], [address], [place], [address], [employer] 11/26/2024 08:19:58 5 text/html Patient is a [...] Lala DPM [address], [place], [address], [employer] 12/04/2024 09:39:59 5 text/html . Patient is [...] other complaints. Naveed Lala DPM [address], [address], [place], [address], [employer] 12/08/2024 15:49:48 5 text/html . Patient is a 74-year-old female she returns for follow-up on arthroplasty of the 2nd toe and fusion of the 1st MPJ she is doing well she has mild swelling she has well-healed incisions she has no pain. Patient is here for the K-wire removal the 2nd toe. Patient denies any other complaints. Naveed Lala DPM [address], [facility] [address], [place], [address], [employer] 12/29/2024 09:35:58 5 text/html . Patient is [...] of her elbow. Naveed Lala DPM [address], [facility] [address], [place], [address], [employer] 01/12/2025 11:18:43 OBGyn Episode No OBEpisode recorded.
--- OUTSIDE RECORDS SUMMARY | 2025-02-10 11:25 | XMS_ITS | Encounter Summary ---
Author Organization [facility] Address [address] [facility] [place] [address] Phone Care Team Providers Care Library Media Specialist Name Role Phone Emmett Carrizales MD Primary Care Provider Emmett Carrizales MD Primary Care Provider Emmett Carrizales MD Unavailable Karolyn Tobar RN Unavailable Unavailable Karolyn Tobar RN Unavailable Unavailable Ifrah Whitfield APRN, CNP Unavailable [phone] Leonie Kinsey Unavailable Unavailable Reason for Visit * Reason Comments Medication Refill Encounter Details Date Type Department Care Team (Late st Contact Info) Description 05/11/2023 [facility]ill [facility] Emergency [address] [place] [address] Emmett Carrizales MD [address] [facility] [place] [address] Medication Refill Social History Tobacco [...] 02/10/2025 2:00 PM CDT Home Care Visit [address] [address] Harika Gold OTA [place] 02/12/2025 1:00 AM CDT [facility] [address] [place] [address] Harika Gold OTA [place] 02/17/2025 1:00 AM CDT Appointment [address] [address] Pat Abdullahi OT 02/25/2025 11:30 AM CDT Office Visit [facility] - Internal Medicine - [place] [address] [place] [id number] Emmett Carrizaels MD [address] [place] [address] documented as of this encounter Visit Diagnoses Not on filedocumented in this encounter Additional Health Concerns Assessment Noted Time PHQ-9 Depression Total Score: 0 06/01/20 3:00 PM CDT documented as of this encounter Care Teams Library Media Specialist Relationship Specialty Start Date End Date Emmett Carrizales MD [address] [place] [address] PCP - General Internal Medicine 06/29/15 11/28/24 Emmett Carrizales MD [address] [place] [address] PCP - General Internal Medicine 11/29/24 Emmett Carrizales MD [address] [place] [address] Internal Medicine 11/29/24 Karolyn Tobar RN [place] Photography Spotter 06/07/23 09/12/23 Karolyn Tobar RN [place] Nurse Photography Spotter 06/07/23 01/21/25 Ifrah Whitfield APRN, TELEGRAPH INSTALLER #[address] [address] Nurse Practitioner Advanced Practice Nurse 03/06/22 Leonie Kinsey [place] Health Exchange Architect 01/21/25 documented as of this encounter
--- OUTSIDE RECORDS SUMMARY | 2025-02-10 11:25 | XMS_ITS | Encounter Summary ---
Author Organization [facility] Address [address] [place] [address] Phone Care Team Providers Care Meat Smoker Name Role Phone Emmett Carrizales MD Primary Care Provider Emmett Carrizales MD Primary Care Provider Emmett Carrizales MD Unavailable [phone] Karolyn Tobar RN Unavailable Unavailable Ifrah Whitfield APRN, CNP Unavailable Leonie Kinsey Unavailable Unavailable Reason for Visit * Reason Comments Medication Refill Encounter Details Date Type Department Care Team (Late st Contact Info) Description 11/12/2023 Refill [facility] Emergency 1 [place] [address] Emmett Carrizales MD [address] [facility] [place] [address] Medication Refill Social History Tobacco Use Types Packs/Day Years Used Date Smoking Tobacco: Never Passive Smoke Exposure: Never Smokeless Tobacco: Never Alcohol Use Standard Drinks/Week Comments Not Currently 0 (1 standard drink = 0.6 oz pur e alcohol) [facility] Utilities Answer Date Recorded In [...] often do you attend chur ch or baptism services? Never 09/13/2023 Do you belong to any clubs o r organizations such as buddhist groups, unions, fraternal or athletic groups, or [...] Total Score - Questions 1-9 0 08/2023 [facility] [place] of Occupat ional Health - Occupational Stress [...] 02/10/2025 2:00 PM CDT Home Care Visit [address] [address] Harika Gold, [place]EL[place] 02/12/2025 1:00 AM CDT Home Care Visit [address] [address] Harika Gold NOEM[place] 02/17/2025 1:00 AM CDT Appointment [address] [address] Pat Abdullahi OT 02/25/2025 11:30 AM CDT Office Visit [facility] - Internal Medicine - [place] [address] [facility] [place] [address] Emmett Carrizales MD [address] [place] [address] documented as of this encounter Goals Goal [...] alert plan in case I fall - greens picker clutter from the floors - use [...] Total Score: 0 09/13/19 24 1:30 PM 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 documented as of this encounter Care Teams Meat Smoker Relationship Specialty Start Date End Date Emmett Carrizales MD [address] [place] [address] PCP - General Internal Medicine 06/29/15 11/28/24 Emmett Carrizales MD [address] [place] [address] PCP - General Internal Medicine 11/29/24 Emmett Carrizales MD [address] [place] [address] Internal Medicine 11/29/24 Karolyn Tobar RN [place] Nurse Pile Driving Technician 06/07/23 01/21/25 Ifrah Whitfield APRN, BUFFING WHEEL RAKER #[address] [address] Nurse Practitioner Advanced Practice Nurse 03/06/22 Leonie Kinsey [place] Health Vet Tech 01/21/25 documented as of this encounter
--- OUTSIDE RECORDS SUMMARY | 2025-02-10 11:25 | XMS_ITS | Encounter Summary ---
Author Organization [facility] Address [address] [place] [address] Phone Care Team Providers Care Steam Blocker Name Role Phone Emmett Carrizales MD Primary Care Provider Emmett Carrizales MD Primary Care Provider Emmett Carrizales MD Unavailable [phone] Karolyn Tobar RN Unavailable Unavailable Karolyn Tobar RN Unavailable Unavailable Ifrah Whitfield APRN, CNP Unavailable [phone] Leonie Kinsey Unavailable Unavailable Reason for Visit * Reason Comments Medication Refill Encounter Details Date Type Department Care Team (Late st Contact Info) Description 03/12/2023 Refill [facility] - Internal Medicine - [place] [address] [place] [address] Emmett Carrizales MD [address] [place] [address] Medication Refill Social History Tobacco [...] 02/10/2025 2:00 PM CDT Home Care Visit [address] [address] Harika Gold O[place] 02/12/2025 1:00 AM CDT Home Care Visit [address] [address] Harika Gold [place] 02/17/2025 1:00 AM CDT Appointment [address] [address] Pat Abdullahi OT 02/25/2025 11:30 AM CDT [facility] - [place] [address] [place] [id number] Emmett Carrizales MD [address] [place] [address] documented as of this encounter Visit Diagnoses Not on filedocumented in this encounter Additional Health Concerns Assessment Noted Time PHQ-9 Depression Total Score: 0 06/01/20 21 3:00 PM CDT documented as of this encounter Care Teams Steam Blocker Relationship Specialty Start Date End Date Emmett Carrizales MD [address] [place] [address] PCP - General Internal Medicine 06/29/15 11/28/24 Emmett Carrizales MD [address] [place] [address] PCP - General Internal Medicine 11/29/24 Emmett Carrizales MD [address] [place] [address] Internal Medicine 11/29/24 Karolyn Tobar, [place] Quality Engineer 06/07/23 09/12/23 Karolyn Tobar, RN [place] Nurse Quality Engineer 06/07/23 01/21/25 Ifrah Whitfield APRN, TERMINAL SUPERINTENDENT #[address] [address] Nurse Practitioner Advanced Practice Nurse 03/06/22 Leonie Kinsey [place] Health Design Engineering Specialist 01/21/25 documented as of this encounter
--- OUTSIDE RECORDS SUMMARY | 2025-02-10 11:25 | XMS_ITS | Encounter Summary ---
Author Organization [facility] Address [address] [place] [address] Phone Care Team Providers Care Equipment Operation Instructor Name Role Phone Emmett Carrizales MD [...] Internal Medicine - [place] [address] [place] [address] Emmett Carrizales MD [address] [place] [address] Medication Refill Social History Tobacco Use Types Packs/Day Years Used Date Smoking Tobacco: Never Passive Smoke Exposure: Never Smokeless Tobacco: Never Alcohol Use Standard Drinks/Week Comments Not Currently 0 (1 standard drink = 0.6 oz pur e alcohol) [facility] Utilities Answer Date Recorded In the [...] often do you attend chur ch or sabianism services? Never 09/13/2023 Do you belong to any clubs o r organizations such as samaritan groups, unions, fraternal or athletic groups, or [...] Total Score - Questions 1-9 0 08/2023 [facility] [place] of Occupat ional Health - Occupational Stress [...] place to sleep or slept in a skilled nursing (including now)? No 09/13/2023 Education Answer Date [...] Dept 10/11/23 Office Visit Emmett Carrizales MD [facility] [place] 07/12/23 Office Visit Emmett Carrizales MD [facility] [place] 06/07/23 Office Visit Emmett Carrizales MD [facility] [place] 05/22/23 Office Visit Kori Hudson, PAC [facility] [place] 04/11/23 Office Visit Emmett Carrizales MD [facility] [place] 12/21/22 Office Visit Emmett Carrizales MD [facility] [place] 11/23/22 Office Visit Kori Hudson, PAC [facility] [place] Showing recent visits within past 365 days and meeting all other requirements Future Appointments Date Type Provider Dept 01/09/24 Appointment Emmett Carrizales MD [facility] [place] Showing future appointments within next 90 days and meeting all other requirements documented in this encounter Plan of Treatment Upcoming Encounters Date Type Department Care Team (Late st Contact Info) Description 02/10/2025 2:00 PM CDT Home Care Visit [address] [address] Harika Gold OTA [place] 02/12/2025 1:00 AM CDT Home Care Visit [address] [address] Harika Gold OTA [place] 02/17/2025 1:00 AM CDT Appointment [address] [address] Pat Abdullahi OT 02/25/2025 11:30 AM CDT Office Visit [facility] - Internal Medicine - [place] [address] [place] [address] Emmett Carrizales MD [address] [place] [address] documented as of this encounter Goals Goal [...] alert plan in case I fall - brick picker clutter from the floors - use [...] Total Score: 0 09/13/19 24 1:30 PM 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 documented as of this encounter Care Teams Equipment Operation Instructor Relationship Specialty Start Date End Date Emmett Carrizales MD [address] [place] [address] PCP - General Internal Medicine 06/29/15 11/28/24 Emmett Carrizales MD [address] [place] [address] PCP - General Internal Medicine 11/29/24 Emmett Carrizales MD [address] [place] [address] Internal Medicine 11/29/24 Karolyn Tobar RN [place] Nurse School Crossing Guard 06/07/23 01/21/25 Ifrah Whitfield APRN, NONPROFIT FUNDRAISER #[address] [address] Nurse Practitioner Advanced Practice Nurse 03/06/22 Leonie Kinsey Health Phlebotomy Manager 01/21/25 documented as of this encounter
--- OUTSIDE RECORDS SUMMARY | 2025-02-10 11:25 | XMS_ITS | Referral Summary ---
Author Organization [facility] Building [facility] Address [address] [place] [address] Care Team Providers Care Cryptographic Technician Name Role Phone Emmett Carrizales MD Primary Care Provider +1- [phone] Encounters Date Type Department Care Team Description 01/28/[address] [facility] Medical Group Orthopedics and Sports Medicine at [address] [address] Ayad Chilel MD 01/26/2025 9:00 AM CDT Office Visit [facility] Medical Group Orthopedics and Sports Medicine at [address] [address] Ayad Chilel MD Closed displaced fracture of head of left radius, initial encounter (Primary Dx) 01/09/2025 Ancillary Procedure [facility] 01/09/2025 10:16 AM CDT - 01/09/2025 11:59 PM CDT Hospital Encounter [facility] Emergency, Room R Discharge Disposition: Discharge to home or self care 01/09/[address] [facility] Medical Group Orthopedics and Sports Medicine [address] [place] [address] [address], [place] [address] Rashid Wallace MD 12/23/[address] [facility] Medical Group Orthopedics and Sports Medicine [address] [place] [address] [address], [place] [address] Sharif Krueger PA 12/23/[address] [facility] Medical Group Orthopedics and Sports Medicine [address] [place] [address] [address], [place] [address] Sharif Krueger PA 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); Thenar atrophy, right 12/19/2024 7:55 AM CDT - 12/19/2024 11:59 PM CDT Hospital Encounter [facility] Orthopedics and Sports Medicine [address] [facility] [address] [place] [address] Discharge Disposition: Discharge to home or self care 12/19/2024 9:30 AM CDT Office Visit [facility] Orthopedics and Sports Medicine [address] [place] [address] [address] [place] [address] Sharif Krueger PA 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); Thenar atrophy, right 11/13/2024 Telephone [facility] Orthopedics and Sports Medicine [address] [place] [address] [address] [place] [address] Sharif Krueger PA from Last 3 Months Allergies Active Allergy Reactions Criticality Noted Date Comments Adhesive Tape-Silicones Hives,Rash Medium Latex Hives,Rash Medium 06/29/2015 Sulfa (Sulfonamide Antibiotics) High Sulfasalazine Rash Medium 06/29/2015 Medications amlodipine-benaz epril (LOTREL 5-10) 5-10 mg per capsuleIndicatio ns:hypertension Take 1 capsule by mouth every morning 0 05/29/20 18 Active atorvastatin (LIPITOR) 20 mg tabletIndication s:hyperlipidemia Take 1 tablet (20 mg total) by mouth every morning Active buPROPion XL (WELLBUTRIN XL) 300 mg 24 hr tabletIndication s:Anxiety with Depression Take 1 tablet (300 mg total) by mouth every morning Active busPIRone (BUSPAR) 15 mg tabletIndication s:Generalized Anxiety Disorder Take 1 tablet (15 mg total) by mouth 3 (three) times a day 11 06/27/20 18 Active calcium carbonate-vit D3-min 600 mg calcium- 400 unit tabletIndication s:Prevention of Vitamin D Deficiency Take 2 tablets by mouth every morning Active escitalopram (LEXAPRO) 20 mg tabletIndication s:Anxiety with Depression Take 1 tablet (20 mg total) by mouth every morning Active fluticasone (FLONASE) 50 mcg/actuation nasal spray as needed for allergies 1 07/25/20 18 Active furosemide (LASIX) 20 mg tabletIndication s:Edema every morning 1 07/01/20 18 Active lamoTRIgine (LaMICtal) 150 mg tabletIndication s:Bipolar Disorder in Remission Take 1 tablet (150 mg total) by mouth 2 (two) times a day 3 07/29/20 18 Active levothyroxine (SYNTHROID, LEVOTHROID) 88 mcg tabletIndication s:hypothyroidism 100 mcg container repairer before breakfast 1 07/01/20 18 Active prednisoLONE acetate (PRED FORTE) 1 % ophthalmic suspensionIndica tions:Severe Ocular Inflammation every morning 2 08/20/19 19 Active aspirin 81 mg enteric coated tabletIndication s:prevention of thrombosis Take 1 tablet (81 mg total) by mouth every morning Active hydrOXYzine (ATARAX) 25 mg tablet 06/15/20 21 Active azelastine 205.5 mcg (0.15 %) spray,non-aeroso lIndications:Per ennial Allergic Rhinitis every morning 06/06/20 21 Active UNABLE TO FIND Med Name: Oxygen 2L at night Active rOPINIRole (REQUIP) 2 mg tablet 07/03/20 22 Active alendronate (FOSAMAX) 70 mg tablet 06/19/20 22 Active Trintellix 10 mg tablet 07/17/20 22 Active albuterol HFA (PROVENTIL HFA,VENTOLIN HFA,PROAIR HFA) 90 mcg/actuation inhaler Inhale 1-2 puffs every 6 (six) hours as needed 02/22/20 22 Active Mydayis 37.5 mg capsule, ER triphasic 24 hr 07/24/20 22 Active ferrous sulfate ER 324 mg (65 mg iron) EC tabletIndication s:Iron Deficiency Anemia Take 1 tablet (324 mg total) by mouth every other day 45 tablet 3 07/26/20 22 Active Belsomra 10 mg tablet 12/21/19 23 Active naproxen (NAPROSYN) 500 mg tabletIndication s:Back pain of lumbar region with sciatica Take 1 tablet (500 mg total) by mouth 2 (two) times a day as needed for pain (pain) 180 tablet 12/22/19 24 Active Additional Information Patient not taking.Reported on 01/26/2025 memantine (NAMENDA) 5 mg tablet Take 1 tablet (5 mg total) by mouth daily 12/12/19 24 Active docusate sodium (COLACE) 100 mg capsuleIndicatio ns:constipation Take 1 capsule (100 mg total) by mouth 2 (two) times a day Active pantoprazole DR (PROTONIX) 40 mg EC tablet Take 1 tablet (40 mg total) by mouth daily 90 tablet 3 01/14/20 24 Active dicyclomine (BENTYL) 10 mg capsule TAKE ONE (1) TO TWO (2) PILLS UP TO FOUR (4) TIMES DAILY NEEDED FOR ABDOMINAL CRAMPING OR DIARRHEA 180 capsule 3 05/20/20 24 Active Namzaric 28-10 mg capsule,sprinkle ,ER 24hr extended release capsule 03/28/20 24 Active methocarbamoL (ROBAXIN) 500 mg tablet Take 1 tablet (500 mg total) by mouth 3 (three) times a day 01/29/20 24 Active clobetasoL (TEMOVATE) 0.05 % external solution Apply to affected area of scalp twice a day as needed for scaling and itching (do not apply to face) 08/01/20 24 Active cyclobenzaprine (FLEXERIL) 10 mg tablet Take 1/2 tablet by mouth 3 times a day as needed for muscle spasms 09/01/19 25 Active doxycycline hyclate 100 mg capsule 12/02/19 25 Active HYDROcodone-acet aminophen (NORCO) 5-325 mg per tablet 01/10/20 25 Active ketoconazole (NIZORAL) 2 % shampoo 09/09/19 25 Active predniSONE (DELTASONE) 20 mg tablet 09/01/19 25 Active rivastigmine (EXELON) 4.6 mg/24 hour 1 patch transderman daily; apply to skin; rotate application sites daily; a site should not repeat within 14 days 09/20/19 25 Active triamcinolone (KENALOG) 0.1 % ointment Apply thin film to affected area(s) twice daily until healed. 05/29/20 24 Active acetaminophen (TYLENOL) 500 mg tablet Take 1 tablet (500 mg total) by mouth every 6 (six) hours as needed for pain 30 tablet 1 01/29/20 25 Active ibuprofen (ADVIL,MOTRIN) 200 mg tab/cap Take 2 tablet/capsule (400 mg total) by mouth every 6 (six) hours as needed for pain 60 tablet/capsu le 1 01/29/20 25 Active acetaminophen (TYLENOL) 325 mg tablet Take 1 tablet (325 mg total) by mouth every 6 (six) hours as needed for pain 03/08/20 16 025 Discontin ued(Dupli trini order) ibuprofen (ADVIL,MOTRIN) 200 mg tab/cap Take 2 tablet/capsule (400 mg total) by mouth every 6 (six) hours as needed for pain 025 Discontin ued(Reord er) Active Problems Problem Noted Date Diagnosed Date Cellulitis of foot 12/01/2024 Disruption of external surgical wound 12/01/2024 [place] of toe 10/23/2024 Pain of toe of right foot 10/23/2024 Age-related osteoporosis wit hout current pathological fracture 09/25/2024 On supplemental oxygen therapy 09/25/2024 Swelling of both lower extremities 05/05/2024 Ingrown toenail of right foot 03/11/2024 Closed bimalleolar fracture of left ankle 2023 Fall 01/26/2024 Obstructive sleep apnea of adult 07/26/2022 Overview (07/26/2022): nonorganic Irritable bowel syndrome wit h both constipation and diarrhea 01/18/2022 H/O colonoscopy with polypectomy 07/20/2021 Chronic rhinitis 07/20/2021 Malocclusion 07/20/2021 Nasal turbinate hypertrophy 07/20/2021 Temporomandibular scegz-wpfv-huapwnujbzq syndrom e 07/20/2021 Mixed irritable bowel syndrome 07/20/2021 Other fatigue 06/01/2021 Incontinence of feces 12/29/2020 History of colonic polyps 10/25/2020 Overview (10/25/2020): Added automatically from request for surgery [id number] Encounter for screening colonoscopy 10/25/2020 Overview (10/25/2020): Added automatically from request for surgery [id number] BMI 30.0-30.9,adult 03/11/2020 Class 1 obesity due to exces s calories without serious comorbidity with body mass index (BMI) of 30.0 to 30.9 in adult 03/11/2020 Gastroesophageal reflux disease 09/11/2019 Overview (09/11/2019): Added automatically from request for surgery [id number] Assessment & Plan (03/11/2020 9:25 AM CDT): Doing well on pantoprazole daily. Says she does get breakthrough symptoms occasionally (maybe one weekly) but overall doing well. Continue pantoprazole daily. May use TUMS prn breakthrough symptoms. Continue to follow GERD diet. 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 Start Protonix daily instead of Pepcid. Follow-up in 6 months. Also discussed with the patient gastroesophageal reflux disease diet. Irritable bowel syndrome with diarrhea 9 Assessment & Plan (03/11/2020 9:24 AM CDT): Pt doing well on dicyclomine TID. She is having two normal BM's daily on this medication. Continue this medication. Assessment & Plan (09/16/2019 4:46 PM JUNIOR ACCOUNTANT BOOKKEEPER): Overall her symptoms has improved and less diarrhea with Bentyl twice daily. Will continue to follow on the pattern for symptoms. Assessment & Plan (08/22/2018 12:26 PM JUNIOR ACCOUNTANT BOOKKEEPER): Doing well with Dicyclomine Adult attention deficit [...] on file Legal Sex Female 12:20 AM JUNIOR ACCOUNTANT BOOKKEEPER Gender Identity Not on file Sexual Orientation [...] - - Weight 73.9 kg (163 lb) 01/26/2025 8:55 AM CDT Height 165.5 cm (5' 5.16) 01/26/2025 8:55 AM CD T Body Mass Index 26.99 01/26/2025 8:55 AM CDT Plan of Treatment Not on [...] Mcgarry MD - 12/01/2020 12:44 PM CDT [facility] Patient Name: Lana Darby Procedure Date: 12/01/2020 12:44 PM Date of : 1950 Admit Type: Outpatient Age: 70 Gender: Female Attending MD: Sierra Mcgarry M.D. Room: [facility] 1 Note Status: Finalized Patient [...] under direct vision. The Pediatric Colonoscope PCF-H190L [id number] was introducedthrough the anus and advanced to [...] 12:44 PM Procedure Code(s): --- Professional --- 20477, Colonoscopy, flexible; with removal of tumor(s), polyp(s), or other lesion(s) by snare technique 75969, 59, Colonoscopy, flexible; with biopsy, single or multiple Diagnosis Code(s): --- Professional --- Z86.010, Personal history of colonic polyps K64.8, Other hemorrhoids K63.5, Polyp of colon K62.1, Rectal polyp CPT copyright 2019 [employer]. All rights reserved. The codes documented in this report are preliminary and upon caddy reviewmay be revised to meet current compliance requirements. Recognized by the [employer] for promoting quality in endoscopy Sierra Mcgarry MD ENDOSCOPY PROCEDURES Final Result from Last 3 Months or Most Recently Relevant to Health Maintenance Insurance [employer] MEDICARE HMO HUMAN CHOICE MEDICARE O [employer] MEDICARE HMO Advance Directives For more information, please contact: [phone] * Full Code (Latest Code Status on File) Date Activated Date Inactivated Comments 12/01/2020 12:33 PM 12/01/2020 6:56 PM * Full Code Date Activated Date Inactivated Comments 10/29/2019 7:38 AM 10/29/2019 1:35 PM * Full Code Date Activated Date Inactivated Comments 10/29/2019 7:38 AM 10/29/2019 7:38 AM Care Teams Cryptographic Technician Relationship Specialty Start Date End Date Emmett Carrizales MD [address] [place] [address] PCP - General Internal Medicine 08/10/21
--- OUTSIDE RECORDS SUMMARY | 2025-02-10 11:25 | XMS_ITS | Clinical Summary ---
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 Name Role Phone Emmett Carrizales MD Primary Care Provider +1- [phone] Allergies Active Allergy Reactions Criticality Noted Date [...] LEVOTHROID) 88 mcg tabletIndication s:hypothyroidism 100 mcg lift supervisor before breakfast 1 07/01/20 18 Active prednisoLONE [...] 12/01/2024 Disruption of external surgical wound 12/01/2024 [place] of toe 10/23/2024 Pain of toe of [...] Malocclusion 07/20/2021 Nasal turbinate hypertrophy 07/20/2021 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 Mixed irritable bowel syndrome 07/20/2021 Other fatigue 06/01/2021 Incontinence of feces 12/29/2020 History of colonic polyps 10/25/2020 Overview (10/25/2020): Added automatically from request for surgery [id number] Encounter for screening colonoscopy 10/25/2020 Overview (10/25/2020): Added automatically from request for surgery [id number] BMI 30.0-30.9,adult 03/11/2020 Class 1 obesity due to exces s calories without serious comorbidity with body mass index (BMI) of 30.0 to 30.9 in adult 03/11/2020 Gastroesophageal reflux disease 09/11/2019 Overview (09/11/2019): Added automatically from request for surgery [id number] Assessment & Plan (03/11/2020 9:25 AM CDT): Doing well on pantoprazole daily. Says she does get breakthrough symptoms occasionally (maybe one weekly) but overall doing well. Continue pantoprazole daily. May use TUMS prn breakthrough symptoms. Continue to follow GERD diet. Assessment & Plan (09/16/2019 4:46 PM FIRE MANAGER): Schedule EGD for further evaluation. Start Protonix daily instead of Pepcid. Follow-up in 6 months. Also discussed with the patient gastroesophageal reflux disease diet. Irritable bowel syndrome with diarrhea 9 Assessment & Plan (03/11/2020 9:24 AM CDT): Pt doing well on dicyclomine TID. She is having two normal BM's daily on this medication. Continue this medication. Assessment & Plan (09/16/2019 4:46 PM FIRE MANAGER): Overall her symptoms has improved and less diarrhea with Bentyl twice daily. Will continue to follow on the pattern for symptoms. Assessment & Plan (08/22/2018 12:26 PM FIRE MANAGER): Doing well with Dicyclomine Adult attention deficit [...] Type Department Care Team Description 01/28/2025 Telephone [facility] Medical Group Orthopedics and Sports Medicine at [address] [phone] Ayad Chilel MD 01/26/2025 9:00 AM CDT Office Visit [facility] Orthopedics and Sports Medicine at [address] [phone] Ayad Chilel MD Closed displaced fracture of head of left radius, initial encounter (Primary Dx) 01/09/2025 10:16 AM CDT - 01/09/2025 11:59 PM CDT Hospital Encounter [facility] Emergency, Room R Discharge Disposition: Discharge to home or self care 01/09/2025 Ancillary Procedure [facility] Films 01/09/2025 Telephone [facility] Orthopedics and Sports Medicine [address] [place] [address] [address] [place] [address] Rashid Wallace MD 12/23/2024 Telephone [facility] Orthopedics and Sports Medicine [address] [place] [address] [address] [place] [address] Sharif Krueger PA 12/23/2024 Orders Only [facility] Medical [facility] Orthopedics and Sports Medicine [address] [place] [address] [address] [place] [address] Sharif Krueger PA 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); Thenar atrophy, right 12/19/2024 9:30 AM CDT Office Visit [facility] Orthopedics and Sports Medicine [address] [place] [address] [address] [place] [address] Sharif Krueger PA 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); Thenar atrophy, right 12/19/2024 7:55 AM CDT - 12/19/2024 11:59 PM CDT Hospital Encounter [facility] Medical Group Orthopedics and Sports Medicine [address] [place] [address] [address] [place] [address] Discharge Disposition: Discharge to home or self care 11/13/2024 Telephone [facility] Orthopedics and Sports Medicine [address] [place] [address] [address] [place] [address] Sharif Krueger PA from Last 3 Months [...] History Surgery Date Site/Laterality Comments TOE SURGERY 2020, 1989' Left big next toe, pinky CHOLECYSTECTOMY [...] on file Legal Sex Female 12:20 AM FIRE MANAGER Gender Identity Not on file Sexual Orientation [...] 01/26/2025 8:55 AM CDT Plan of Treatment Health Maintenance [...] 10/08/2015, 10/08/2015 Pneumococcal vaccine 65+ Completed 06/15/2022, 1109/2020 Zoster Vaccine Completed 08/15/2022, 03/14/2022 Procedures Procedure [...] 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 us Sharif Millan Abegage AKIN IMG XR PROCEDURES Final Res ult * COLONOSCOPY (12/01/2020 12:44 PM CDT) Anatomical Region Laterality Modality Other Narrative Procedure Note Sierra Mcgarry MD - 12/01/2020 12:44 PM CDT [facility] Patient Name: Lana Darby Procedure Date: 12/01/2020 12:44 PM Date of : 1950 Admit Type: Outpatient Age: 70 Gender: Female Attending MD: Sierra Mcgarry M.D. Room: [facility] ENDOSCOPY ROOM 1 Note Status: Finalized Patient Profile: This is a 70 year old female. No family history of colon cancer. History of polyps in the past. Alsohas issues with chronic diarrhea. Procedure: Colonoscopy Indications: High risk colon cancer surveillance: Personalhistory of colonic polyps, Last colonoscopy: September2015 Referring MD: Adan Pozo F.N.PHattie, Dion Kidd DO Providers: Sierra Mcgarry M.D. [...] under direct vision. The Pediatric Colonoscope PCF-H190L [id number] was introducedthrough the anus and advanced to [...] 12:44 PM Procedure Code(s): --- Professional --- 92442, Colonoscopy, flexible; with removal of tumor(s), polyp(s), or other lesion(s) by snare technique 70303, 59, Colonoscopy, flexible; with biopsy, single or multiple Diagnosis Code(s): --- Professional --- Z86.010, Personal history of colonic polyps K64.8, Other hemorrhoids K63.5, Polyp of colon K62.1, Rectal polyp CPT copyright 2019 [employer]. All rights reserved. The codes documented in this report are preliminary and upon economic development director reviewmay be revised to meet current compliance requirements. Recognized by the [employer] for promoting quality in endoscopy Sierra Mcgarry MD ENDOSCOPY PROCEDURES Final Result from Last 3 Months or Most Recently Relevant to Health Maintenance Insurance [facility] MEDICARE O [facility] MEDICARE O [employer] MEDICARE HMO Advance Directives For more information, please contact: [phone] * Full Code (Latest Code Status on File) Date Activated Date Inactivated Comments 12/01/2020 12:33 PM 12/01/2020 6:56 PM * Full Code Date Activated Date Inactivated Comments 10/29/2019 7:38 AM 10/29/2019 1:35 PM * Full Code Date Activated Date Inactivated Comments 10/29/2019 7:38 AM 10/29/2019 7:38 AM Care Teams Grades 7 And 8 Teacher Relationship Specialty Start Date End Date Emmett Carrizales MD [address] [place] [address] PCP - General Internal Medicine 08/10/21
--- OUTSIDE RECORDS SUMMARY | 2025-02-10 11:25 | XMS_ITS | Clinical Summary ---
Author Organization [facility] Address [address] [place] [address] Phone Care Team Providers Care Door Person Name Role Phone Emmett Carrizales MD Primary Care Provider Emmett Carrizales MD Unavailable [phone] Ifrah Whitfield APRN, CNP Unavailable Leonie Kinsey Unavailable Unavailable Allergies Active Allergy Reactions Criticality Noted [...] Patient Instructions: 1 tablet daily 016 Active alendronate (FOSAMAX) 70 MG Tablet Take 1 Tablet by mouth every 7 days. 023 Active ibuprofen (MOTRIN) 200 MG Tablet Take 400 mg by mouth every 6 hours as needed for Mild or more severe pain. 025 Active Calcium Carb-Cholecalcif rashaun ([employer] Calcium 600 & Vitamin D3) 600-20 MG-MCG Tablet Take 1 Tablet by mouth daily. 30 Tablet 3 023 Active azelastine (ASTELIN) 0.1 % Solution TWO (2) SPRAYS BY NASAL ROUTE TWO (2) TIMES DAILY. 30 mL 3 024 Active rOPINIRole (REQUIP) 2 MG TabletIndication s:Restless Leg Syndrome Take 1 Tablet by mouth nightly. Indications: Restless Leg Syndrome 30 Tablet 024 Active Ferrous Sulfate (Iron) 28 MG Tablet Take 1 Tablet by mouth every other day. 025 Active hydrOXYzine (ATARAX) 25 MG Tablet 021 Active Memantine HCl-Donepezil HCl (Namzaric) 28-10 MG CAPSULE SR 24 HR Active methocarbamol (ROBAXIN) 500 MG Tablet Take 1 Tablet by mouth daily. 024 Active triamcinolone (KENALOG) 0.1 % Ointment [...] AT BEDTIME. 16 g 2 025 Active albuterol 108 (90 Base) MCG/ACT Aerosol SolutionIndicati ons:Chronic Obstructive Pulmonary Disease TAKE ONE (1) TO TWO (2) PUFFS BY INHALATION EVERY SIX (6) HOURS NEEDED FOR WHEEZING OR COUGH. 8.5 g 1 025 Active clobetasol (TEMOVATE) 0.05 % Solution Apply to affected area of scalp twice a day as needed for scaling and itching (do not apply to face) Active cyclobenzaprine (FLEXERIL) 10 MG Tablet Take 1/2 tablet by mouth 3 times a day as needed for muscle spasms Active ketoconazole (NIZORAL) 2 % Shampoo Use to wash scalp twice weekly. Leave on for five minutes then rinse off Active predniSONE (DELTASONE) 20 MG Tablet Active rivastigmine (EXELON) 4.6 MG/24HR PATCH 24 HR 1 patch transderman daily; apply to skin; rotate application sites daily; a site should not repeat within 14 days Active Misc. Devices Misc Supply and instructions: 1 Each Active OXYGEN CONCENTRATOR 2 L/min by Nasal route continuous. Use 2L O2 continuously at night. Use portable tanks in case of power failure. Active amLODIPine-benaz epril (LOTREL) 5-10 MG Capsule TAKE 1 CAPSULE BY MOUTH DAILY. 30 Capsule 5 025 Active HYDROcodone-acet aminophen (NORCO) 5-325 MG Tablet Take 1 Tablet by mouth every 6 hours as needed for Moderate or more severe pain. Active levothyroxine (SYNTHROID) 100 MCG TabletIndication s:Hypothyroidism TAKE ONE (1) TABLET BY MOUTH EVERY DAY 90 Tablet Active furosemide (LASIX) 20 MG Tablet TAKE 1 TABLET BY MOUTH DAILY. 90 Tablet Active atorvastatin (LIPITOR) 20 MG Tablet TAKE ONE (1) TABLET BY MOUTH DAILY LAST REFILL UNTIL SEEN 90 Tablet Active memantine (NAMENDA) 5 MG Tablet Take 1 Tablet by mouth daily. 2024 Discontinued(M ed List Clean Up) furosemide (LASIX) 20 MG Tablet TAKE 1 TABLET BY MOUTH DAILY. 90 Tablet 025 2024 Discontinued levothyroxine (SYNTHROID) 100 MCG TabletIndication s:Hypothyroidism TAKE ONE (1) TABLET BY MOUTH EVERY DAY 90 Tablet 025 2024 Discontinued atorvastatin (LIPITOR) 20 MG Tablet TAKE ONE (1) TABLET BY MOUTH DAILY LAST REFILL UNTIL SEEN 90 Tablet 025 2024 Discontinued doxycycline hyclate (VIBRAMYCIN) 100 MG Capsule Take 100 mg by mouth 2 times daily. 025 2024 Discontinued(M ed List Clean Up) HYDROcodone-acet aminophen (NORCO) 5-325 MG TabletIndication s:Closed fracture of left elbow, initial encounter Take 1 Tablet by mouth every 6 hours as needed for Severe pain for up to 3 days. 12 Tablet 025 2024 Active Problems Problem Noted Date Diagnosed Date [...] Encounters Date Type Department Care Team Description 02/10/2025 9:30 AM CDT Home Care Visit [address] [address] Gayatri Rubio, HOUSEHOLD APPLIANCE MECHANIC PT - DISCIPLINE DISCHARGE 02/06/2025 9:30 AM CDT Home Care Visit [address] [address] Liya Isaac OTA OT - HOME VISIT 02/06/2025 Home Care Visit [address] [address] Caren Dover, PT CASE COMMUNICATION 02/06/2025 Travel 02/04/2025 9:30 AM CDT Home Care Visit [address] [address] Gayatri Rubio, HOUSEHOLD APPLIANCE MECHANIC PT - HOME VISIT 02/04/2025 Home Care Visit [address], WINDOW SYSTEMS ADMINISTRATOR TELEPHONE ENCOUNTER 02/03/2025 9:45 AM CDT Home Care Visit [address] [address] Pat Abdullahi, OT OT - POWELL SUPERVISORY VISIT 02/02/2025 9:30 AM CDT Home Care Visit [address] [address] Gayatri Rubio, HOUSEHOLD APPLIANCE MECHANIC PT - HOME VISIT 01/30/2025 3:30 PM CDT Home Care Visit [address] [address] Harika Gold, NOEMI OT - HOME VISIT 01/30/2025 2:30 PM CDT Home Care Visit [address] [address] Viviana Strange, HOUSEHOLD APPLIANCE MECHANIC PT - HOME VISIT 01/30/2025 Home Care Visit [address] [address] Harika Gold, GERMAN INSTRUCTOR TELEPHONE ENCOUNTER 01/29/2025 Telephone [facility]PATIENT [facility]ARE [address] [place] [phone] Raad Okeefe 01/28/2025 10:00 AM CDT Home Care Visit [address] [address] Harika Gold, GERMAN INSTRUCTOR OT - HOME VISIT 01/28/2025 Home Care Visit [address] [address] Harika Gold, NOEIM TELEPHONE ENCOUNTER 01/27/2025 12:00 PM CDT Home Care Visit [address] [address] Gayatri Rubio, HOUSEHOLD APPLIANCE MECHANIC PT - HOME VISIT 01/26/2025 1:00 PM CDT Clinical Support [facility] Oncology Services [address] [place] [phone] Kai Hartman MD Age-related osteoporosis without current pathological fracture Discharge Disposition: Discharged to home or Selfcare 01/26/2025 Travel 01/23/2025 Refill [facility] [place] [address] [facility] [place] [phone] Emmett Carrizales MD Medication Refill 01/23/20[facility] [address] [place] [phone] Emmett Carrizales MD Medication Refill 01/22/2025 3:00 PM CDT Home Care Visit [address] [address] Nata Casas, GUADALUPE SN - DISCIPLINE DISCHARGE 01/22/2025 9:00 AM CDT Home Care Visit [address] [address] Pat Abdullahi OT OT - HOME VISIT 01/21/2025 Telephone [facility] [address] [place] [address] Emmett Carrizales MD 01/21/2025 Home Care Visit [address] [address] Caren Dover, PT CASE COMMUNICATION 01/20/2025 3:00 PM CDT Home Care Visit [address] [address] Pat Abdullahi, OT OT - INITIAL EVALUATION 01/20/2025 Home Care Visit [address], WINDOW SYSTEMS ADMINISTRATOR CASE COMMUNICATION 01/20/2025 Patient Outreach [facility] Geothermal Field Technician Management [address] [place] [address] Carole Marvin Care Management (Pt left a voicemail on Care Management Line) 01/19/2025 11:30 AM CDT Home Care Visit [address] WINDOW SYSTEMS ADMINISTRATOR WINDOW SYSTEMS ADMINISTRATOR - INITIAL EVALUATION 01/19/2025 9:30 AM CDT Home Care Visit [address] [address] Caren Dover, PT PT - INITIAL EVALUATION 01/19/2025 Home Care Visit [address], WINDOW SYSTEMS ADMINISTRATOR TELEPHONE ENCOUNTER 01/16/2025 2:00 PM CDT Home Care Visit [address] [address] Nata Casas, RN SN - OASIS START OF CARE 01/16/2025 Plan of Care Documentation [address] [address] 01/16/2025 Telephone [facility] [address] [place] [phone] Emmett Carrizales MD 01/16/2025 Patient Outreach [facility] Field Technician Management [address] [place], [place] [address] Karolyn Tobar RN Transition of Care (ANTONIETA Week 1) 01/14/2025 Telephone [facility] [address] [place] [address] Emmett Carrizales MD 01/13/2025 1:30 PM CDT Office Visit [facility] [address] [place] [address] Emmett Carrizales MD Closed fracture of left elbow, initial encounter (Primary Dx); Essential hypertension, benign Discharge Disposition: Discharged to home or Selfcare 01/13/2025 Travel 01/10/2025 Patient Outreach [facility] Technician Management [address] [place], [place] [phone] Anabela Villegas, handicrafts teacher of Care (Post discharge follow up call) 01/09/2025 10:40 AM CDT - 01/09/2025 2:13 PM CDT [facility] [address] [place] [address] Zina Ferris APRN, PRANAV Closed fracture of left elbow, initial encounter Discharge Disposition: Discharged to home or Selfcare 01/09/2025 Travel 01/07/2025 Patient Outreach [facility] Field Technician Management [address] [place] [address] Leonie Kinsey Care Management (Monthly monitoring call-(December)) 12/29/2024 1:00 PM CDT Clinical Support [facility] Oncology Services [address] [place] [phone] Kai Hartman MD Age-related osteoporosis without current pathological fracture Discharge Disposition: Discharged to home or Selfcare 12/29/2024 Travel 12/10/2024 9:00 AM CDT Office Visit [facility] - Internal Medicine [facility] [address] [place] [phone] Emmett Carrizales MD Contusion of face, sequela (Primary Dx); Traumatic injury of head, sequela Discharge Disposition: Discharged to home or Selfcare 12/10/2024 Travel 12/03/2024 Patient Outreach [facility] Geothermal Field Technician Management [address] [place] [phone] Karolyn Tobar RN Care Management ([facility]) 12/01/2024 1:00 PM CDT Clinical Support [facility] Oncology Services [address] [place] [phone] Kai Hartman MD Age-related osteoporosis without current pathological fracture (Primary Dx) Discharge Disposition: Discharged to home or Selfcare 12/01/2024 Travel 11/29/2024 2:55 PM CDT - 11/29/2024 4:39 PM CDT Emergency [facility] Emergency [address] [place] [phone] Olaf Castellano DO Acute head trauma, initial encounter Discharge Disposition: Discharged to home or Selfcare 11/29/2024 Travel 11/26/2024 12:30 PM CDT Home Care Visit [address] [address] Jolynn Ba, PT PT - OASIS DISCHARGE 11/26/2024 Travel 11/24/2024 10:30 AM CDT Home Care Visit [address] [address] Gaytari Rubio, HOUSEHOLD APPLIANCE MECHANIC PT - HOME VISIT 11/21/2024 Home Care Visit [address] [address] Pat Abdullahi, OT OT - DISCHARGE SUMMARY 11/20/2024 9:30 AM CDT Home Care Visit [address] [address] Gayatri Rubio, HOUSEHOLD APPLIANCE MECHANIC PT - HOME VISIT 11/20/[address] [address] Ruby Sotelo, RN Appointment 11/19/2024 12:30 PM CDT Home Care Visit [address] [address] Harika Gold, NOEMI OT - DISCIPLINE DISCHARGE 11/19/2024 Home Care Visit [address] [address] Harika Gold, NOEMI CASE COMMUNICATION 11/18/2024 Home Care Visit [address] [address] Jolynn Ba, PT CASE COMMUNICATION 11/17/2024 2:00 PM CDT Home Care Visit [address] [address] Jolynn Ba, PT PT - REASSESSMENT 11/17/2024 Travel 11/12/2024 Telephone [facility] [address] [place] [phone] Emmett Carrizales MD Advice Only 11/11/2024 1:30 PM CDT Home Care Visit [address] [place] [address] Gayatri Rubio PTA PT - HOME VISIT 11/11/2024 [facility] [address] [place] [address] Rosalind Zamorano RN 11/11/2024 Telephone [facility] [place] [address] [place] [address] Emmett Carrizales MD from Last [...] Valent 06/14/2021 Pneumococcal conjugate PCV20 , polysaccharide PAR507 conjugate, adjuvant, PF 06/15/2022 TDAP Vaccine 08/08/2021 [...] 0.6 oz pur e alcohol) [facility] Utilities Answer Date Recorded In the past 12 months has [employer], gas, oil, or water company threatened to shut off services in your home? No 10/06/2024 Social Connection and Isolation Panel Answer Date Recorded In a typical week, how many times do you talk on the phone with family, friends, or neighbors? Once a week 10/06/2024 How often do you get together with friends or re latives? Never 10/06/2024 How often do you attend sabianist or confucianism serv ices? Never 10/06/2024 Do you belong to any clubs o r organizations such as sabianist groups, unions, fraternal or athletic groups, or [...] Total Score - Questions 1-9 0 09/14 [facility] - [...] place to sleep or slept in a detention (including now)? No 09/13/2023 Housing Stability Vital Sign Answer David e Recorded In the last 12 months, was t here a time when you were not able to pay the mortgage or rent on time? No 10/06/2024 In the past 12 months, how m any times have you moved where you were living? 0 10/06/2024 At any time in the past 12 m [facility], were you homeless or living in a detention (including now)? No 10/06/2024 Education Answer Date [...] Sign Reading Time Taken Comments Blood Pressure 132/72 02/10/2025 9:25 AM CDT Pulse 79 02/10/2025 9:25 AM CDT Temperature 36.4 C (97.5 F) 02/10/2025 9:25 AM CDT Respiratory Rate 18 02/10/2025 9:25 AM CDT Oxygen Saturation 96% 02/10/2025 9:25 AM CDT Inhaled Oxygen Concentration - - Weight 73.9 kg (163 lb) 01/28/2025 10:53 AM CDT Pt stated wt Height 156.2 cm (5' 1.5) 01/20/2025 3:05 PM CDT Body Mass Index 30.3 01/20/2025 3:05 PM CDT Plan of Treatment Upcoming Encounters Date Type Department Care Team (Late st Contact Info) Description 02/10/2025 2:00 PM CDT [facility] [address] [place] [address] Harika Gold OTA MT 02/12/2025 1:00 AM CDT [facility] [address] [place] [address] Harika Gold OTA MT 02/17/2025 1:00 AM CDT Appointment [address] [address] Pat Abdullahi OT 02/25/2025 11:30 AM CDT Office Visit [facility] - [facility] - [place] [address] [facility] [place] [address] Emmett Carrizales MD [address] [place] [address] Health Maintenance Due Date Last Done Comments Hepatitis C Virus (HCV) Screening 1950 Cologuard 1997 Immunochemical Fecal Occult Blood 1997 SARS-COV-2 Immunization ( season) 2024 03/23/2021, 11/18/2020, 11/02/2020, Additional history exists Colonoscopy 12/01/2025 12/01/2020 Colorectal Cancer Screening 12/01/2025 Mammogram 01/19/2026 01/19/2025, 0812/2023, 11/14/2021 DEXA Bone Density 07/30/2026 07/30/2024, , [...] alert plan in case I fall - mixing picker tender clutter from the floors - [...] hip pain. Medical Devices Implanted Type Area Senior Quality Engineer Device Identifier Shelf Expiration Date Model / Serial / Lot K-Wire Plain .062 - [id number] Implanted:Qty : 1 on 08/01/2017 by Killian Reese DPM at [facility] IMPLANT Left: Foot [employer] KD-062-9 / KD-062-9 / [id number] Plate Humeral Proximal Left Distal Holex3 - [id number] Implanted:Qty : 1 on 11/15/2022 by Gamaliel Yi MD at [facility] IMPLANT Left: Humerus [employer] 12/10/2022 [id number] / [id number] / N/A Screw Bone Locking 4mm 26mm Self-Tapping - [id number] Implanted:Qty : 1 on 11/15/2022 by Gamaliel Yi MD at [facility] IMPLANT Left: Humerus [employer] 12/10/2022 [id number] / [id number] / [id number] Screw Bone Locking 4mm 40mm Self-Tapping - [id number] Implanted:Qty : 1 on 11/15/2022 by Gamaliel Yi MD at [facility] IMPLANT Left: Humerus [employer] 12/10/2022 [id number] / [id number] / N/A Screw Bone 3.5mm 26mm Ti Cortical Self-Tapping Axsos - [id number] Implanted:Qty : 1 on 11/15/2022 by Gamaliel Yi MD at [facility] IMPLANT Left: Humerus [employer] 12/10/2022 [id number] / [id number] / N/A Screw Bone 3.5mm 28mm Ti Cortical Self-Tapping Axsos - [id number] Implanted:Qty : 1 on 11/15/2022 by Gamaliel Yi MD at [facility] IMPLANT Left: Humerus [employer] 12/10/2022 [id number] / [id number] / N/A 4mm Locking Screw Implanted:Qty : 3 on 11/15/2022 by Gamaliel Yi MD at [facility] Left: Humerus PHILLIP 12/10/2022 [id number] / [id number] / N/A 4mm Locking Screw Implanted:Qty : 1 on 11/15/2022 by Gamaliel Yi MD at [facility] Left: Humerus PHILLIP 12/10/2022 [id number] / [id number] / N/A Locking Screw Implanted:Qty : 1 on 11/15/2022 by Gamaliel Yi MD at [facility] 12/10/2022 [id number] / [id number] / N/A 4mm Locking Screw Implanted:Qty : 1 on 11/15/2022 by Gamaliel Yi MD at [facility] Left: Humerus PHILLIP 12/10/2022 [id number] / [id number] / N/A 4mm Locking Screw Implanted:Qty : 1 on 11/15/2022 by Gamaliel Yi MD at [facility] Left: Humerus PHILLIP 12/10/2022 [id number] / [id number] / N/A Procedures Procedure Name Priority Date/Time Associated Diagnosis Comments MAMMOGRAM BILATERAL GENERIC 01/19/2025 12:[address] CERVICAL SPINE WO/ CONTRAST Stat [...] REPAIR Routine 11/29/2024 2:5 6 PM CDT BONE DENSITY GENERIC 07/30/2024 12:00 AM PUMP SERVICE SUPERVISOR from Last 3 Months or Most Recently Relevant to Health Maintenance Results * MAMMOGRAM BILATERAL GENERIC (01/19/2025 12:00 AM CDT) 01/19/2025 us Provider Scan IMG MAMMO ORDERABLES Final Resul t SCAN * CT CERVICAL SPINE WO/ CONTRAST (01/09/2025 [...] Jovana Omer D.O. PS: LOUIE Report ID: [id number] Reading Location: [place] [address] Procedure Note Jovana Omer DO - 01/09/2025 [...] Jovana Omer D.O. PS: PS Report ID: [id number] Reading Location: [place] [address] IMPRESSION: Mild osteopenia with multilevel cervical spondylosis without definite evidence of acute fracture or subluxation. Zina Ferris DIAL LATHE OPERATOR, WAREHOUSE ORDER PICKER IMG CT ORDERABLES Final Result * CT [...] Jovana Omer D.O. PS: PS Report ID: [id number] Reading Location: [id number] Procedure Note Jovana Omer DO - 01/09/2025 [...] Jovana Omer D.O. PS: PS Report ID: [id number] Reading Location: [id number] IMPRESSION: Mild osteopenia without definite evidence of acute displaced facial bone fracture. Left periorbital and facial soft tissue swelling and edema, which is likely posttraumatic. us Zina Ferris APRN, CNP IMHelio CT ORDERABLES Final Result * CT HEAD [...] Jovana Omer D.O. PS: PS Report ID: [id number] Reading Location: [id number] Procedure Note Jovana Omer DO - 01/09/2025 [...] Jovana Omer D.O. PS: PS Report ID: [id number] Reading Location: [id number] IMPRESSION: No definite evidence of acute intracranial hemorrhage. Mild cortical atrophy with periventricular white matter hypoattenuation, which is likely secondary to chronic microvascular ischemic disease. Zina Ferris DIAL LATHE OPERATOR, WAREHOUSE ORDER PICKER IMG CT ORDERABLES Final Result * XR [...] hip pain after falling in her driveway HOUSEHOLD APPLIANCE MECHANIC. no hx of surgery TECHNIQUE: 2 radiographic views of the left hip with AP pelvis. COMPARISON: None FINDINGS: No acute fracture or dislocation. 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 The soft tissues are unremarkable. THIS IS AN ELECTRONICALLY VERIFIED FINAL REPORT 01/09/2025 1:36 PM - Electronically signed by Aryan Palm M.D. KR: MARIJA Report ID: [id number] Reading Location: [id number] Procedure Note Aryan Palm MD - 01/09/2025 EXAM DESCRIPTION: XR HIP 2-3 VIEWS W/PELVIS UNILATERAL LEFT REASON FOR STUDY: pt c/o LT hip pain after falling in her driveway HOUSEHOLD APPLIANCE MECHANIC. no hx of surgery TECHNIQUE: 2 radiographic views of the left hip with AP pelvis. COMPARISON: None FINDINGS: No acute fracture or dislocation. 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 The soft tissues are unremarkable. THIS IS AN ELECTRONICALLY VERIFIED FINAL REPORT 01/09/2025 1:36 PM - Electronically signed by Aryan Palm M.D. KR: MARIJA Report ID: [id number] Reading Location: [id number] IMPRESSION: No acute osseous abnormality. us Zina Ferris DIAL LATHE OPERATOR, WAREHOUSE ORDER PICKER IMG DIAGNOSTIC ORD ERABLES Final Result * [...] elbow pain after falling in her driveway HOUSEHOLD APPLIANCE MECHANIC. hx of surgery to humerus for fx repair ; pt c/o LT upper arm and elbow pain after falling in her driveway HOUSEHOLD APPLIANCE MECHANIC. no hx of surgery TECHNIQUE: 2 radiographic [...] Jovana Omer D.O. PS: PS Report ID: [id number] Reading Location: [id number] Procedure Note Jovana Omer DO - 01/09/2025 EXAM DESCRIPTION: XR HUMERUS LEFT; XR ELBOW MINIMUM 3 VIEWS LEFT REASON FOR STUDY: pt c/o LT upper arm and elbow pain after falling in her driveway HOUSEHOLD APPLIANCE MECHANIC. hx of surgery to humerus for fx repair ; pt c/o LT upper arm and elbow pain after falling in her driveway HOUSEHOLD APPLIANCE MECHANIC. no hx of surgery TECHNIQUE: 2 radiographic [...] Jovana Omer D.O. PS: PS Report ID: [id number] Reading Location: [id number] IMPRESSION: Mildly displaced comminuted left radial head [...] elbow pain after falling in her driveway HOUSEHOLD APPLIANCE MECHANIC. hx of surgery to humerus for fx repair ; pt c/o LT upper arm and elbow pain after falling in her driveway HOUSEHOLD APPLIANCE MECHANIC. no hx of surgery TECHNIQUE: 2 radiographic [...] Jovana Omer D.O. PS: PS Report ID: [id number] Reading Location: [id number] Procedure Note Jovana Omre DO - 01/09/2025 EXAM DESCRIPTION: XR HUMERUS LEFT; XR ELBOW MINIMUM 3 VIEWS LEFT REASON FOR STUDY: pt c/o LT upper arm and elbow pain after falling in her driveway HOUSEHOLD APPLIANCE MECHANIC. hx of surgery to humerus for fx repair ; pt c/o LT upper arm and elbow pain after falling in her driveway HOUSEHOLD APPLIANCE MECHANIC. no hx of surgery TECHNIQUE: 2 radiographic [...] Jovana Omer D.O. PS: PS Report ID: [id number] Reading Location: [id number] IMPRESSION: Mildly displaced comminuted left radial head [...] No treatment, delayed treatment, observation and referral [place] protocol: Procedure explained and questions answered to [...] Procedure completion: Tolerated well, no immediate complications Olaf Castellano DO PROCEDURE/MINOR SURGICA L ORDERABLES Final Result * BONE DENSITY GENERIC (07/30/2024 12:00 AM PUMP SERVICE SUPERVISOR) 07/30/2024 us Provider Scan IMG DEXA ORDERABLES Final Result SCAN from Last 3 Months or Most Recently Relevant to Health Maintenance Additional Health Concerns Active Problems Noted Date Diagnosed Date Fall Risk (Fall Risk) 09/13/2023 Insurance [facility] MEDICARE C HUMANA [facility] C HUMANA Advance Directives Documents on File Type Date Recorded Patient Nutrient Management Specialist Expl anation Power of Civil Design Specialist for Health Care 01/19/2025 3:50 PM POA HC 11/21/2022 Power of Civil Design Specialist for Health Care 11/03/2024 5:21 PM POA HC 11/21/2022 * Full Code (Latest Code Status on File) Date Activated Date Inactivated Comments 01/16/2025 12:46 PM * Full Code Date Activated Date Inactivated Comments 10/31/2024 12:16 PM 01/16/2025 12:46 PM * Full Code Date Activated Date Inactivated Comments 11/28/2022 1:24 PM 12/15/2022 8:38 AM Healthcare Agents on File Name Relationship Healthcare Agent Demetria Lockwood Spouse Healthcare POA Care Teams Door Person Relationship Specialty Start Date End Date Emmett Carrizales MD [address] [place] [address] PCP - General Internal Medicine 11/29/24 Emmett Carrizales MD [address] [place] [address] Internal Medicine 11/29/24 Ifrah Whitfield APRN, WAREHOUSE ORDER PICKER [address] [address] Nurse Practitioner Advanced Practice Nurse 03/06/22 Leonie Kinsey Health Dark Room Attendant 01/21/25
--- OUTSIDE RECORDS SUMMARY | 2025-02-10 11:25 | XMS_ITS ---
Care Plan Created on: February 10, 2025 Lana Lockwood : 1950 Sex: Female Author Organization [facility] Address [address] [place] [address] Phone Care Team Providers Care Category Development Analyst Name Role Phone Emmett Carrizales MD Primary Care Provider Emmett Carrizales MD Unavailable Ifrah Whitfield APRN, PRANAV Unavailable Leonie Kinsey Unavailable Unavailable Active Problems Problem Noted Date Diagnosed [...] No recent falls. 04/29/2024 referral sent to [id number] per patient request. 06/30/2024 She is [...]
--- OUTSIDE RECORDS SUMMARY | 2025-02-10 11:25 | XMS_ITS | Encounter Summary ---
Author Organization [facility] Address [address] [facility] [address] Phone Care Team Providers Care Prize Fighter Name Role Phone Emmett Carrizales MD Primary Care Provider Emmtet Carrizales MD Primary Care Provider Emmett Carrizales MD Unavailable Karolyn Tobar RN Unavailable Unavailable Karolyn Tobar RN Unavailable Unavailable Ifrah Whitfield APRN, CNP Unavailable Leonie Kinsey Unavailable Unavailable Reason for Visit * Reason Comments Medication Refill Encounter Details Date Type Department Care Team (Late st Contact Info) Description 02/14/2023 Refill [facility] - Internal Medicine - [place] [address] [place] [address] Emmett Carrizales MD [address] [place] [address] Medication Refill Social History Tobacco [...] Dept 12/21/22 [facility] [place] [facility]22 [facility] Kori Hudson PAC [facility] [place] 09/07/22 Office Visit Emmett Carrizales MD [facility] [place] 08/16/22 Office Visit Emmett Carrizales MD [facility] [place] 05/10/22 Office Visit Emmett Carrizales MD [facility] [place] 02/21/22 Telemedicine [facility] MD [facility] [place] Showing recent visits within past 365 days and meeting all other requirements Future Appointments Date Type Provider Dept 04/11/23 Appointment Emmett Car[facility]ales MD [facility] [place] Showing future appointments within next 90 days and meeting all other requirements documented in this encounter Plan of Treatment Upcoming Encounters Date Type Department Care Team (Late st Contact Info) Description 02/10/2025 2:00 PM CDT Home Care Visit [address] [address] Harika Gold OTA [place] 02/12/2025 1:00 AM CDT Home Care Visit [address] [address] Harika Gold OTA [place] 02/17/2025 1:00 AM CDT Appointment [address] [address] Pat Abdullahi OT 02/25/2025 11:30 AM CDT Office Visit [facility] - Internal Medicine - [place] [address] [place] [address] Emmett Carrizales MD [address] [place] [address] documented as of this encounter Visit Diagnoses Not on filedocumented in this encounter Additional Health Concerns Assessment Noted Time PHQ-9 Depression Total Score: 0 06/01/20 21 3:00 PM CDT documented as of this encounter Care Teams Prize Fighter Relationship Specialty Start Date End Date Emmett Carrizales MD [address] [place] [address] PCP - General Internal Medicine 06/29/15 11/28/24 Emmett Carrizales MD [address] [place] [address] PCP - General Internal Medicine 11/29/24 Emmett Carrizales MD [address] [place] [address] Internal Medicine 11/29/24 Karolyn Tobar, RN [place] Ward Nurse 06/07/23 09/12/23 Karolyn Tobar RN [place] Nurse Ward Nurse 06/07/23 01/21/25 Ifrah Whitfield, ENGAGEMENT QUALITY CONSULTANT, SIGNAL MAINTAINER HELPER #[address] [address] Nurse Practitioner Advanced Practice Nurse 03/06/22 Leonie Kinsey Health Traffic Circuit Engineer 01/21/25 documented as of this encounter
--- OUTSIDE RECORDS SUMMARY | 2025-02-10 11:25 | XMS_ITS | Encounter Summary ---
Author Organization [facility] Address [address] [place] [place] [address] Phone Care Team Providers Care Switcher Name Role Phone Emmett Carrizales MD Primary Care Provider Emmett Carrizales MD Unavailable Ifrah Whitfield APRN, PRANAV Unavailable Leonie Kinsey Unavailable Unavailable Reason for Visit * Auth/Cert (Routine) Specialty Diagnoses / Procedures Referred By Contac t Referred To Contact Referral ID Status Reason Start Date Expiration Date Visits Re quested Visits Authorized [id number] Encounter Details Date Type Department Care Team (Latest Contact Info) Description 02/10/2025 9:30 AM CDT [facility] [address] [place] [address] Gayatri Rubio, TRUCK BODY REPAIRER PT - DISCIPLINE DISCHARGE Social History Tobacco Use Types Packs/Day Years Used Date Smoking Tobacco: Never Passive Smoke Exposure: Never Smokeless Tobacco: Never Alcohol Use Standard Drinks/Week Comments Not Currently 0 (1 standard drink = 0.6 oz pur e alcohol) [facility] Utilities Answer Date Recorded In the [...] Never 10/06/2024 How often do you attend shinto or hinduism serv ices? Never 10/06/2024 Do you belong to any clubs o r organizations such as shinto groups, unions, fraternal or athletic groups, or [...] Total Score - Questions 1-9 0 09/14 [facility] of Occupat ional Health - Occupational [...] 02/10/2025 2:00 PM CD[facility] [address] [place] [address] Harika Gold OTA [place] 02/12/2025 1:00 AM CDT [facility] [address] [place] [address] Harika Gold OTA [place] 02/17/2025 1:00 AM CDT Appointment [address] [address] Pat Abdullahi OT 02/25/2025 11:30 AM CDT Office Visit [facility] - Internal Medicine - [place] [address] [facility] [place] [address] Emmett Carrizales MD [address] [place] [address] documented as of this encounter Goals Goal [...] plan in case I fall - picker clutter from the floors - use [...] Total Score: 0 10/06/19 25 4:14 PM PROMPT CARE RN documented as of this encounter Home Health Visit - Care Plan Visit Details Visit Type -PT - DISCIPLINE DISCHARGE Discipline -Physical Therapy Problems Problem Description Start Date Status Goals Interve ntions PHYSICAL THERAPY EVALUATION (O) Disciplines: Physical Therapy PT Evaluation 01/19/2025 Active 1 goal linked to scheduled/document ed intervention 1 goal intervention scheduled/documen hedy in this visit PT COMPREHENSIVE Disciplines: Physical Therapy 01/19/2025 Active 5 goals linked to scheduled/document ed interventions 5 goal interventions scheduled/documen hedy in this visit Goals Goal Associated Problem Outcome Goal Met? Visit Notes Physical Therapy Evaluation Description: After assessing the patient and discussing the patient's goals the following were identified: [facility] centered [facility] goal: stop falling. Target Date: by 02-13-25 (date) PHYSICAL THERAPY EVALUATION (O) No PT Balance Description: Electronics Detail Draftsperson Goal: Patient will show improved dynamic standing balance as demonstrated by improved Tinetti score from 22/28 to 24/28 in order to lower risk for falls and Improve functional mobility. To be met by 02-13-25. PT COMPREHENSIVE No PT Stairs and Home Exit Description: Residential Goal: Patient will require supervision on entry steps with use of HR/AD prn while maintaining ordered precautions to allow for ability to enter/exit home safely . To be met by 02-13-25. PT COMPREHENSIVE No PT Gait Description: Residential Goal: Patient will ambulate independently indoors x 100 feet with use of AD prn, over even surfaces with the following improved gait characteristics no LOB in order to safely ambulate around home completing dusting task. To be met by 02-13-25. PT COMPREHENSIVE No PT Strength Description: Residential Goal: Patient will show improved left lower extremity strength as demonstrated by improved manual muscle test score to at least 4+/5 in areas of strength deficits . To be met by 02-13-25. PT COMPREHENSIVE No PT HEP Description: Electronics Detail Draftsperson Goal: Patient and/or caregiver will independently with final HEP of strengthening, balance training, conditioning and core strengthening in order to continue making strength gains and improving balance after discharge from home care. To be m et by 02-13-25. PT COMPREHENSIVE No Interventions Intervention Associated Problem/Goal Status Variance Visit Notes PT Discharge Problem:PHYSICAL THERAPY EVALUATION (O) Goal:Physical Therapy Evaluation Performed Medication list reviewed and left in home. Medicare notice of discharge signed on pt has [facility] currently. Discharge Instructions provided to Patient. Response verbalize understanding. PT Balance Description: Provide balance training for safety and reduced fall risk. Problem:PT COMPREHENSIVE Goal:PT Balance Performed Instructed Patient on skilled balance training: static standing x 10 min with use of balance pad. Challenges given with FT, staggered, toe taps onto pad and one foot on pad other on floor- EO, EC, head tursn, UE liffts and pertubations. Skilled instructi on consisting of: verbal cues keep head up/shoulders back. Tolerance to activity: decreased assistance required PT Stairs and Home Exit Description: Instruct in proper safety and technique for stair training or home exit as directed in the goal. Problem:PT COMPREHENSIVE Goal:PT Stairs and Home Exit Performed Patient negotiated 4 steps with use of 1 rail and cane with supervision. Skilled instruction consisting of hand placement provided to Patient. Tolerance to activity: decreased assistance required PT Gait Description: Provide gait training for increased safety and efficiency.Progress per patient tolerance and safety. Problem:PT COMPREHENSIVE Goal:PT Gait Performed Patient ambulated independently 150 feet with use of straight cane over even surfaces with the following gait characteristics: fast anjana at times, decrease in B step height Skilled instruction consisting of keep head up, slow down, increase B step he ight with heel strike provided to Patient. No LOB noted. Pt to have spouse walk with her when walking outdoors up/down her street. Tolerance to activity able to return demonstrate proper technique after cues. PT Therapeutic Exercise Description: Instruct on therapeutic exercise. Progress as tolerated. Problem:PT COMPREHENSIVE Goal:PT Strength Performed Therapeutic exercise instruction this date Pt was instructed in and performed standing ex's x 20 reps: heel raises, toe raises, hip flexion, hip abd/add, hip ext, hamstring curls and mini squats.. Skills instructions consisting of verbal cues slow down for max benefit provided to Patient. Tolerance to activity: decreased assistance required PT HEP Progression Description: Instruct on home exercise program. Progress as tolerated. Problem:PT COMPREHENSIVE Goal:PT HEP Performed Home Exercise Program issued to Patient continue LE HEP. Pt is indep and compliant with daily leg ex program. Response verbalize understanding. documented in this encounter Care Teams Switcher Relationship Specialty Start Date End Date Emmett Carrizales MD [address] [place] [address] PCP - General Internal Medicine 11/29/24 Emmett Carrizales MD [address] [place] [address] Internal Medicine 11/29/24 Ifrah Whitfield, TRANSITIONS RN CARE COORDINATOR, TILE FITTER #[address] [address] Nurse Practitioner Advanced Practice Nurse 03/06/22 Leonie Kinsey Health Farm Products Shipper 01/21/25 documented as of this encounter
--- OUTSIDE RECORDS SUMMARY | 2025-02-10 11:25 | XMS_ITS | Encounter Summary ---
Author Organization [facility] Address [address] [place] [place] [address] Phone Care Team Providers Care Circular Knife Machine Cutter Name Role Phone Emmett Carrizales MD Primary Care Provider Emmett Carrizales MD Primary Care Provider [phone] Emmett Carrizales MD Unavailable Karolyn Tobar RN Unavailable Unavailable Ifrah Whitfield APRN, CNP Unavailable Leonie Kinsey Unavailable Unavailable Reason for Visit * Reason Comments Medication Refill Encounter Details Date Type Department Care Team (Late st Contact Info) Description 07/25/2024 [facility]ill [facility] - [place] [address] [place] [address] Emmett Carrizales MD [address] [place] [address] Medication Refill Social History Tobacco Use Types Packs/Day Years Used Date Smoking Tobacco: Never Passive Smoke Exposure: Never Smokeless Tobacco: Never Alcohol Use Standard Drinks/Week Comments Not Currently 0 (1 standard drink = 0.6 oz pur e alcohol) [facility] Utilities Answer Date Recorded In [...] often do you attend chur ch or alevism services? Never 09/13/2023 Do you belong to any clubs o r organizations such as anabaptism groups, unions, fraternal or athletic groups, or [...] Total Score - Questions 1-9 0 08/2023 [facility] of Occupat ional Health - Occupational [...] place to sleep or slept in a alf (including now)? No 09/13/2023 Education Answer Date [...] 02/10/2025 2:00 PM CDT [facility] [address] [place] [address] Harika Gold OTA [place] 02/12/2025 1:00 AM CDT [facility] [address] [place] [address] Harika Gold OTA [place] 02/17/2025 1:00 AM CD[facility] [address] [place] [address] Pat Abdullahi OT 02/25/2025 11:30 AM CDT Office Visit [facility] - Internal Medicine - [place] [address] [place] [address] Emmett Carrizales MD [address] [place] [address] documented as of this encounter Goals Goal [...] plan in case I fall - pickle maker clutter from the floors - use a [...] Total Score: 0 09/13/19 24 1:30 PM BRICK BURNER documented as of this encounter Care Teams Circular Knife Machine Cutter Relationship Specialty Start Date End Date Emmett Carrizales MD [address] [place] [address] PCP - General Internal Medicine 06/29/15 11/28/24 Emmett Carrizales MD [address] [place] [address] PCP - General Internal Medicine 11/29/24 Emmett Carrizales MD [address] [place] [address] Internal Medicine 11/29/24 Karolyn Tobar RN [place] Nurse Engine Dispatcher 06/07/23 01/21/25 Ifrah Whitfield APRN, SULFUR BURNER #[address] [address] Nurse Practitioner Advanced Practice Nurse 03/06/22 Leonie Kinsey [facility] Buckle Sorter 01/21/25 documented as of this encounter
--- OUTSIDE RECORDS SUMMARY | 2025-02-10 11:25 | XMS_ITS | Encounter Summary ---
Author Organization [facility] Address [address] [facility] [address] Phone Care Team Providers Care Electric Melt Operator Name Role Phone Emmett Carrizales MD Primary Care Provider Emmett Carrizales MD Primary Care Provider [phone] Emmett Carrizales MD Unavailable [phone] Karolyn Tobar RN Unavailable Unavailable Ifrah Whitfield APRN, CNP Unavailable Leonie Kinsey Unavailable Unavailable Reason for Visit * Reason Comments Medication Refill Encounter Details Date Type Department Care Team (Late st Contact Info) Description 10/15/2023 [facility]ill [facility] - [place] [address] [place] [address] Kori Hudson, PAC [address] [place] [address] Medication Refill Social History Tobacco Use Types Packs/Day Years Used Date Smoking Tobacco: Never Passive Smoke Exposure: Never Smokeless Tobacco: Never Alcohol Use Standard Drinks/Week Comments Not Currently 0 (1 standard drink = 0.6 oz pur e alcohol) [facility] Utilities Answer Date Recorded In the past [...] Total Score - Questions 1-9 0 08/2023 [facility] [place] of Occupat ional Health - Occupational Stress [...] 10/11/23 Office Visit Emmett Carrizales MD [facility] [place] 07/12/23 Office Visit Emmett Carrizales MD [facility] [place] 06/07/23 Office Visit [facility] MD [facility] [place] 05/22/23 Office Visit [facility] Hudson, [facility] [place] [facility]23 Office Visit Emmett Carrizales MD [facility] [place] Showing recent visits within past 270 days and meeting all other requirements Future Appointments Date Type Provider Dept 01/09/24 Appointment Emmett Carrizales MD [facility] [place] Showing future appointments within next 90 days and meeting all other requirements Passed - Blood pressure on record in past 12 months Clinician-entered: BP Readings from Last 3 Encounters: 10/11/23 126/72 07/12/23 122/70 06/07/23 122/70 Patient-entered: No data recorded DRIVER documented in this encounter Plan of Treatment Upcoming Encounters Date Type Department Care Team (Late st Contact Info) Description 02/10/2025 2:00 PM CDT Home Care Visit [facility] [address] Harika Gold OTA [place] 02/12/2025 1:00 AM CDT Home Care Visit [address] [address] Harika Gold OTA [place] 02/17/2025 1:00 AM CDT Appointment [address] [address] Pat Abdullahi OT 02/25/2025 11:30 AM CDT Office Visit [facility] - Internal Medicine - [place] [address] [place] [address] Emmett Carrizales MD [address] [place] [address] documented as of this encounter Goals Goal [...] alert plan in case I fall - machine operator hop picker clutter from the floors - [...] Total Score: 0 09/13/19 24 1:30 PM LIFT DRIVER documented as of this encounter Care Teams Electric Melt Operator Relationship Specialty Start Date End Date Emmett Carrizales MD [address] [place] [address] PCP - General Internal Medicine 06/29/15 11/28/24 Emmett Carrizales MD [address] [place] [address] PCP - General Internal Medicine 11/29/24 Emmett Carrizales MD [address] [place] [address] Internal Medicine 11/29/24 Karolyn Tobar RN [place] Nurse Diesel Engine Assembler 06/07/23 01/21/25 Ifrah Whitfield APRN, SECURITY CONTROL ASSESSOR #[address] [address] Nurse Practitioner Advanced Practice Nurse 03/06/22 Leonie Kinsey Health Oil Painter 01/21/25 documented as of this encounter
--- OUTSIDE RECORDS SUMMARY | 2025-02-10 11:25 | XMS_ITS ---
Author Organization [facility] Address [address] [place] [address] Phone Care Team Providers Care Email Operations Manager Name Role Phone Emmett Carrizales MD Primary Care Provider Emmett Carrizales MD Unavailable Ifrah Whitfield APRN, CNP Unavailable Leonie Kinsey Unavailable Unavailable Ambulatory Complex Care Management Status:Enrolled (Active) Start date:06/07/2023 Enrollment date:06/07/2023 Related social drivers of health:Intimate Partner Violence, Social Connections, Alcohol Use, Financial Resource Strain, Stress, Physical Activity, Food Insecurity, Transportation Needs, Housing Stability, Utilities Overview Complex Care Management Program Case Team Name Relationship Phone Leonie Kinsey(Responsible Staff) Health Diet Tech Continued Care and Services Coordination
--- OUTSIDE RECORDS SUMMARY | 2025-02-10 11:25 | XMS_ITS | Encounter Summary ---
Author Organization [facility] Address [address] [facility] [place] [address] Phone Care Team Providers Care Power Systems Engineer Name Role Phone Emmett Carrizales MD [...] Info) Description 05/02/2023 [facility]ill [facility] [address] [place] [address] Emmett Carrizales MD [address] [facility] [place] [address] Medication Refill Social [...] 02/10/2025 2:00 PM CDT Home Care Visit [address] [address] Harika Gold OTA [place] 02/12/2025 1:00 AM CDT Home Care Visit [address] [address] Harika Gold OTA [place] 02/17/2025 1:00 AM CDT [address]ointment [address] [place] [address] Abdullahi Pat A, NILES 02/25/2025 11:30 AM CDT [facility] [address] [place] [address] Emmett Carrizales MD [address] [place] [address] documented as of this encounter Visit Diagnoses Not on filedocumented in this encounter Additional Health Concerns Assessment Noted Time PHQ-9 Depression Total Score: 0 06/01/20 21 3:00 PM CDT documented as of this encounter Care Teams Power Systems Engineer Relationship Specialty Start Date End Date Emmett Carrizales MD [address] [place] [address] PCP - General Internal Medicine 06/29/15 11/28/24 Emmett Carrizales MD [address] [place] [address] PCP - General Internal Medicine 11/29/24 Emmett Carrizales MD [address] [place] [address] Internal Medicine 11/29/24 Karolyn Tobar, RN [place] Weight Loss Sales Consultant 06/07/23 09/12/23 Karolyn Tobar, RN [place] Nurse Weight Loss Sales Consultant 06/07/23 01/21/25 Ifrah Whitfield APRN, DIAMOND WHEEL MOLDER #[address] [address] Nurse Practitioner Advanced Practice Nurse 03/06/22 Leonie Kinsey [facility] Quality Coordinator 01/21/25 documented as of this encounter
--- OUTSIDE RECORDS SUMMARY | 2025-02-10 11:25 | XMS_ITS | Encounter Summary ---
Author Organization [facility] Address [address] [place] [address] Phone Care Team Providers Care Inspector Conveyor Line Name Role Phone Emmett Carrizales MD Primary Care Provider Emmett Carrizales MD Primary Care Provider [phone] Emmett Carrizales MD Unavailable Karolyn Tobar RN Unavailable Unavailable Ifrah Whitfield APRN, CNP Unavailable Leonie Kinsey Unavailable Unavailable Reason for Visit * Reason Comments Medication Refill Encounter Details Date Type Department Care Team (Late st Contact Info) Description 12/10/2023 [facility]ill [facility] - [place] [address] [place] [address] Emmett Carrizales MD [address] [place] [address] Medication Refill Social History Tobacco Use Types Packs/Day Years Used Date Smoking Tobacco: Never Passive Smoke Exposure: Never Smokeless Tobacco: Never Alcohol Use Standard Drinks/Week Comments Not Currently 0 (1 standard drink = 0.6 oz pur e alcohol) [facility] Utilities Answer Date Recorded In [...] often do you attend chur ch or faith services? Never 09/13/2023 Do you belong to any clubs o r organizations such as bahai groups, unions, fraternal or athletic groups, or [...] Total Score - Questions 1-9 0 08/2023 [facility] [place] of Occupat ional Health - Occupational Stress [...] in a jail (including now)? No 09/13/2023 Education Answer Date [...] Office Visit Emmett Carrizales MD [facility] [place] 10/11/23 Office Visit Emmett Carrizales MD [facility] [place] 07/12/23 Office Visit Emmett Carrizales MD [facility] [place] 06/07/23 Office Visit Emmett Carrizales MD [facility] [place] 05/22/23 Office Visit Kori Hudson PAC [facility] [place] 04/11/23 Office Visit Emmett Carrizales MD [facility] [place] 12/21/22 Office Visit Emmett Carrizales MD [facility] [place] Showing recent visits within past 365 days and meeting all other requirements Future Appointments Date Type Provider Dept 01/09/24 Appointment Emmett Carrizales MD [facility] [place] Showing future appointments within next 90 days and meeting all other requirements Passed - Normal TSH in past 12 months TSH Date Value Ref Range Status 11/28/2023 0.441 0.300 - 5.000 mIU/L Final documented in this encounter Plan of Treatment Upcoming Encounters Date Type Department Care Team (Late st Contact Info) Description 02/10/2025 2:00 PM CDT Home Care Visit [address] [address] Harika Gold OTA [place] 02/12/2025 1:00 AM CDT Home Care Visit [address] [address] Harika Gold OTA [place] 02/17/2025 1:00 AM CDT Appointment [address] [address] Pat Abdullahi OT 02/25/2025 11:30 AM CDT Office Visit [facility] - Internal Medicine - [place] [address] [place] [address] Emmett Carrizales MD [address] [place] [address] documented as of this encounter Goals Goal [...] alert plan in case I fall - scrap picker clutter from the floors - use [...] Total Score: 0 09/13/19 24 1:30 PM CURATOR OF PHOTOGRAPHY AND PRINTS documented as of this encounter Care Teams Inspector Conveyor Line Relationship Specialty Start Date End Date Emmett Carrizales MD [address] [place] [address] PCP - General Internal Medicine 06/29/15 11/28/24 Emmett Carrizales MD [address] [place] [address] PCP - General Internal Medicine 11/29/24 Emmett Carrizales MD [address] [place] [address] Internal Medicine 11/29/24 Karolyn Tobar RN [place] Nurse Allergist/Immunologist Physician 06/07/23 01/21/25 Ifrah Whitfield APRN, SAFETY AND OCCUPATIONAL HEALTH MANAGER #[address] [address] Nurse Practitioner Advanced Practice Nurse 03/06/22 Leonie Kinsey [facility] Parts Counter Representative 01/21/25 documented as of this encounter
--- OUTSIDE RECORDS SUMMARY | 2025-02-10 11:25 | XMS_ITS | Encounter Summary ---
Author Organization [facility] Address [address] [place] [address] Phone Care Team Providers Care Entry Level Automotive Technician Name Role Phone Emmett Carrizales MD Primary Care Provider Emmett Carrizales MD Primary Care Provider Emmett Carrizales MD Unavailable [phone] Karolyn Tobar RN Unavailable Unavailable Karolyn Tobar RN Unavailable Unavailable Ifrah Whitfield APRN, CNP Unavailable [phone] Leonie Kinsey Unavailable Unavailable Reason for Visit * Reason Comments Medication Refill Encounter Details Date Type Department Care Team (Late st Contact Info) Description 01/11/[address] [facility] - Internal Medicine - [place] [address] [place] [address] Emmett Carrizales MD [address] [place] [address] Medication Refill Social History Tobacco [...] 02/10/2025 2:00 PM CDT Home Care Visit [address] [address] Harika Gold OTA PA 02/12/2025 1:00 AM CDT Home Care Visit [address] [address] Harika Gold OTA PA 02/17/2025 1:00 AM CDT Appointment [address] [address] Pat Abdullahi OT 02/25/2025 11:30 AM CDT Office Visit [facility] - Internal Medicine - [place] [address] [place] [address] Emmett Carrizales MD [address] [place] [address] documented as of this encounter Visit Diagnoses Not on filedocumented in this encounter Additional Health Concerns Infection Onset Date Last Indicated Resolved Time COVID - 19 02/21/2022 02/21/2022 03/03/2022 12:1 6 AM CDT documented as of this encounter Care Teams Entry Level Automotive Technician Relationship Specialty Start Date End Date Emmett Carrizales MD [address] [place] [address] PCP - General Internal Medicine 06/29/15 11/28/24 Emmett Carrizales MD [address] [place] [address] PCP - General Internal Medicine 11/29/24 Emmett Carrizales MD [address] [place] [address] Internal Medicine 11/29/24 Karolyn Tobar, [place] Ecd 06/07/23 09/12/23 Karolyn Tobar RN [place] Nurse Ecd 06/07/23 01/21/25 Ifrah Whitfield APRN, MILITARY PROFESSIONAL #[address] [address] Nurse Practitioner Advanced Practice Nurse 03/06/22 Leonie Kinsey [place] Health Special Weapons And Tactics Officer 01/21/25 documented as of this encounter
--- OUTSIDE RECORDS SUMMARY | 2025-02-10 11:26 | XMS_ITS | Encounter Summary ---
Author Organization [facility] Address [address] [facility] [place] [address] Phone Care Team Providers Care Software Design Manager Name Role Phone Emmett Carrizales MD Primary Care Provider Emmett Carrizales MD Primary Care Provider Emmett Carrizales MD Unavailable [phone] Karolyn Tobar RN Unavailable Unavailable Karolyn Tobar RN Unavailable Unavailable Ifrah Whitfield APRN, CNP Unavailable [phone] Leonie Kinsey Unavailable Unavailable Reason for Visit * Reason Comments Medication Refill Encounter Details Date Type Department Care Team (Late st Contact Info) Description 03/14/2023 Refill [facility] [address] [place] [address] Emmett Carrizales MD [address] [facility] [place] [place] [address] Medication Refill Social History Tobacco [...] 2:00 PM CDT Home Care Visit [address] [address] Harika Gold OTA [place] 02/12/2025 1:00 AM CDT Home Care Visit [address] [address] Harika Gold OTA [place] 02/17/2025 1:00 AM CDT Appointment [address] [address] Pat Abdullahi OT 02/25/2025 11:30 AM CDT [facility] - Internal Medicine - [address] [place] [address] Emmett Carrizales MD [address] [place] [address] documented as of this encounter Visit Diagnoses Not on filedocumented in this encounter Additional Health Concerns Assessment Noted Time PHQ-9 Depression Total Score: 0 06/01/20 21 3:00 PM CDT documented as of this encounter Care Teams Software Design Manager Relationship Specialty Start Date End Date Emmett Carrizales MD [address] [place] [address] PCP - General Internal Medicine 06/29/15 11/28/24 Emmett Carrizales MD [address] [place] [address] PCP - General Internal Medicine 11/29/24 Emmett Carrizales MD [address] [place] [address] Internal Medicine 11/29/24 Karolyn Tobar, RN [place] Manager Inside 06/07/23 09/12/23 Karolyn Tobar RN [place] Nurse Manager Inside 06/07/23 01/21/25 Ifrah Whitfield APRN, BED WORKER #[address] [address] Nurse Practitioner Advanced Practice Nurse 03/06/22 Leonie Kinsey Health Telephone Repairer 01/21/25 documented as of this encounter
== END 2025-02-10 11:19 | disposition home or self-care (01) ==
LOC: ANHIMG 11:20
PROVIDERS: PCP Internal Medicine; Visit Provider Nurse Practitioner Family
DX: R92.8 Other abnormal and inconclusive findings on diagnostic imaging of breast (principal)
CPT/HCPCS: 76642; 77061; 77065; G0279